=== PATIENT | male | born 1995 | race Caucasian/White ===

== ENCOUNTER 2022-08-05 15:21 | Inpatient (IN) | payer MEDICAID, SELFPAY ==
[2022-08-05 15:22] VITALS: BP 132/79; PULSE 100; RESP 16; TEMP 36.5; O2SAT 97; BMI 27.1
--- NOTE | 2022-08-05 15:51 | EX.ED.DYSGE1 ---
HPI <KATHERYN Mcdowell - Last Filed: 08/05/22 17:08> History of Present Illness Chief Complaint: Substance Abuse Narrative Narrative: 26-year-old male who is here for detox. He states he drinks alcohol, smokes crack cocaine, and uses meth. Denies IV drug use. He last used drugs yesterday and and last alcoholic drink was on the way into the ER. He drinks about ten 24 ounce beers a day and also multiple shots. He has detoxed several times in the past but denies history of seizures or DTs. PFSH <KATHERYN Mcdowell - Last Filed: 08/05/22 17:08> [facility] Medical History (Updated 08/05/22 @ 17:[address] Ashley Hirsch DO) No acute medical problems Polysubstance abuse Tobacco abuse Home Medications NK 08/05/22 [History Last Taken Unknown] Allergy/AdvReac Type Severity Reaction Status Date / Time No Known Allergies Allergy Verified 08/05/22 16:09 Social History Smoking Status: Current every day smoker tobacco type: cigarettes ROS <KATHERYN Mcdowell - Last Filed: 08/05/22 17:08> ROS ED ROS Narrative Constitutional: Negative for fever, chills, malaise. CVS: Negative for palpitations, chest pain. Respiratory: Negative for shortness of breath. GI: Negative for abdominal pain, nausea, vomiting. Neuro: Negative for headache. EXAM <KATHERYN Mcdowell - Last Filed: 08/05/22 17:08> Physical Exam Narrative Exam Narrative: CONST: Patient sitting in no acute distress. EYES: Normal inspection. NECK: Normal inspection. RESP: No respiratory distress, CTAB. CVS: Regular rate and rhythm, no murmur, no gallop. ABD: Soft and nontender, no guarding or rebound, nondistended. SKIN: Color normal, no rash, warm, dry, intact. EXTREMITIES: Normal appearance, no pedal edema. NEURO: Oriented x4. PSYCH: Normal affect. Const Vital Signs: 08/05/22 15:22 Temperature 97.7 F L Temperature Source Temporal Pulse Rate 100 Respiratory Rate 16 Blood Pressure 132/79 H Blood Pressure Mean 96 Pulse Ox 97 <Dr. Fior Ridley MD - Last Filed: 08/05/22 16:54> Physical Exam Const Vital Signs: 08/05/22 15:22 Temperature 97.7 F L Temperature Source Temporal Pulse Rate 100 Respiratory Rate 16 Blood Pressure 132/79 H Blood Pressure Mean 96 Pulse Ox 97 MDM <KATHERYN Mcdowell - Last Filed: 08/05/22 17:08> [facility] Narrative Medical decision making narrative: History gathered from: Patient and friend at bedside Patient here primarily for alcohol detox but also uses crack cocaine and meth. His last drink was on the way and he is currently asymptomatic. Vital signs stable. Medical exam benign. CBC, BMP, liver profile within normal limits. Alcohol level is 219. Tox positive for cocaine. Patient was given Phenergan for nausea and case was discussed with the hospitalist for admission. Differential: Polysubstance abuse, alcohol abuse, alcohol withdrawal Lab Data Attestation: I reviewed the patient's lab results. Labs: Laboratory Results - last 24 hr 08/05/22 08/05/22 08/05/22 15:56 15:56 15:56 WBC 7.1 RBC 4.56 L Hgb 14.6 Hct 41.3 MCV 90.6 MCH 32.0 MCHC 35.4 RDW Std Deviation 38.1 RDW Coeff of Jessica 11.6 Plt Count 249 MPV 9.1 Immature Gran % (Auto) 0.400 Neut % (Auto) 56.8 Lymph % (Auto) 33.2 [place] % (Auto) 8.3 Eos % (Auto) 0.3 Baso % (Auto) 1.0 Absolute Neuts (auto) 4.0 Absolute Lymphs (auto) 2.36 Nucleated RBC % 0 Sodium 143 Potassium 4.0 Chloride 109 H Carbon Dioxide 28.0 Anion Gap 6 BUN 8 Creatinine 0.80 Estim Creat Clear Calc 150.34 Est GFR (MDRD) Af Amer 151 Est GFR (MDRD) Non-Af 125 BUN/Creatinine Ratio 10.0 Glucose 116 H Calcium 8.2 L Total Bilirubin 0.70 Direct Bilirubin 0.19 AST 17 ALT 24 Alkaline Phosphatase 73 Total Protein 6.4 Albumin 3.5 Globulin 2.9 Urine Opiates Screen Urine Methadone Screen Ur Barbiturates Screen Ur Phencyclidine Scrn Ur Amphetamines Screen MDMA (Ecstasy) Screen U Benzodiazepines Scrn Urine Cocaine Screen U Cannabinoids Screen Ur Drug Screen Comment Ethyl Alcohol 219.0 08/05/22 16:05 WBC RBC Hgb Hct MCV MCH MCHC RDW Std Deviation RDW Coeff of Jessica Plt Count MPV Immature Gran % (Auto) Neut % (Auto) Lymph % (Auto) [place] % (Auto) Eos % (Auto) Baso % (Auto) Absolute Neuts (auto) Absolute Lymphs (auto) Nucleated RBC % Sodium Potassium Chloride Carbon Dioxide Anion Gap BUN Creatinine Estim Creat Clear Calc Est GFR (MDRD) Af Amer Est GFR (MDRD) Non-Af BUN/Creatinine Ratio Glucose Calcium Total Bilirubin Direct Bilirubin AST ALT Alkaline Phosphatase Total Protein Albumin Globulin Urine Opiates Screen NEGATIVE Urine Methadone Screen NEGATIVE Ur Barbiturates Screen NEGATIVE Ur Phencyclidine Scrn NEGATIVE Ur Amphetamines Screen NEGATIVE MDMA (Ecstasy) Screen NEGATIVE U Benzodiazepines Scrn NEGATIVE Urine Cocaine Screen POSITIVE H U Cannabinoids Screen NEGATIVE Ur Drug Screen Comment Ethyl Alcohol <Dr. Fior Ridley MD - Last Filed: 08/05/22 16:54> [facility] Lab Data Labs: Laboratory Results - last 24 hr 08/05/22 08/05/22 08/05/22 15:56 15:56 15:56 WBC 7.1 RBC 4.56 L Hgb 14.6 Hct 41.3 MCV 90.6 MCH 32.0 MCHC 35.4 RDW Std Deviation 38.1 RDW Coeff of Jessica 11.6 Plt Count 249 MPV 9.1 Immature Gran % (Auto) 0.400 Neut % (Auto) 56.8 Lymph % (Auto) 33.2 [place] % (Auto) 8.3 Eos % (Auto) 0.3 Baso % (Auto) 1.0 Absolute Neuts (auto) 4.0 Absolute Lymphs (auto) 2.36 Nucleated RBC % 0 Sodium 143 Potassium 4.0 Chloride 109 H Carbon Dioxide 28.0 Anion Gap 6 BUN 8 Creatinine 0.80 Estim Creat Clear Calc 150.34 Est GFR (MDRD) Af Amer 151 Est GFR (MDRD) Non-Af 125 BUN/Creatinine Ratio 10.0 Glucose 116 H Calcium 8.2 L Total Bilirubin 0.70 Direct Bilirubin 0.19 AST 17 ALT 24 Alkaline Phosphatase 73 Total Protein 6.4 Albumin 3.5 Globulin 2.9 Urine Opiates Screen Urine Methadone Screen Ur Barbiturates Screen Ur Phencyclidine Scrn Ur Amphetamines Screen MDMA (Ecstasy) Screen U Benzodiazepines Scrn Urine Cocaine Screen U Cannabinoids Screen Ur Drug Screen Comment Ethyl Alcohol 219.0 08/05/22 16:05 WBC RBC Hgb Hct MCV MCH MCHC RDW Std Deviation RDW Coeff of Jessica Plt Count MPV Immature Gran % (Auto) Neut % (Auto) Lymph % (Auto) [place] % (Auto) Eos % (Auto) Baso % (Auto) Absolute Neuts (auto) Absolute Lymphs (auto) Nucleated RBC % Sodium Potassium Chloride Carbon Dioxide Anion Gap BUN Creatinine Estim Creat Clear Calc Est GFR (MDRD) Af Amer Est GFR (MDRD) Non-Af BUN/Creatinine Ratio Glucose Calcium Total Bilirubin Direct Bilirubin AST ALT Alkaline Phosphatase Total Protein Albumin Globulin Urine Opiates Screen NEGATIVE Urine Methadone Screen NEGATIVE Ur Barbiturates Screen NEGATIVE Ur Phencyclidine Scrn NEGATIVE Ur Amphetamines Screen NEGATIVE MDMA (Ecstasy) Screen NEGATIVE U Benzodiazepines Scrn NEGATIVE Urine Cocaine Screen POSITIVE H U Cannabinoids Screen NEGATIVE Ur Drug Screen Comment Ethyl Alcohol Treatment and Re-Evaluation :: Patient seen and evaluated with [facility]. I personally interviewed and examined the patient. I was involved in all aspects of patient's orders, interpretation of results, and treatment. Patient presents requesting detox. He is primarily requesting detox from alcohol but does admit to other drug use as well. He states he has been through detox and withdrawal in the past. He denies ever having a prior alcohol withdrawal seizure, but also admits that he is never been this deep. He reportedly supposed to go to a residential treatment facility this coming week Patient lying in bed no acute distress. Head and neck examination is unremarkable. Heart is regular rate and rhythm. Lung sounds are clear. Abdomen is soft and nontender. Neuro exam is unremarkable. Patient states that his last drink was on the way into the emergency room. While awaiting laboratory work-up patient did report some nausea and was given p.o. Phenergan. He is not tachycardic or shaky. Patient we discussed with hospitalist for admission Discharge Plan Triage Chief Complaint: Substance Abuse ED Midlevel Provider: Vilma Cornelius ED Provider: Fior Ridley Dx/Rx/DC Orders Primary Care Provider: Care Physician,No Primary
[2022-08-05 16:04] LABS: Absolute Lymphocyte Count 2.36 X10^3/uL (0.83-4.51); Basophil# 0.07 X10^3/uL; Eosinophil# 0.02 X10^3/uL; Eosinophils% 0.3 % (0-5); Hematocrit 41.3 % (40-54); Hemoglobin 14.6 g/dL (13.0-16.5); Lymphocyte # 2.36 X10^3/ul (0.83-4.51); Lymphocyte % 33.2 % (19-41); Mean Corp Hgb Conc 35.4 g/dL (32-36); Mean Corpuscular Volume 90.6 fL (80-94); Mean Platelet Vol. 9.1 fl (6.2-12.0); Monocyte# 0.59 X10^3/uL; Monocyte% 8.3 % (0-10); NRBC Flagged by Analyzer 0 % (0-5); Neutrophil # 4.04 X10^3/uL (2.7-7.7); Neutrophil % 56.8 % (47-70); Platelet Count 249 K/mm3 (150-450); RBC Distribution Width CV 11.6 % (11.6-14.6); RBC Distribution Width SD 38.1 fl (35.1-43.9); Red Blood Count 4.56 M/mm3 (4.6-6.2); White Blood Count 7.1 K/mm3 (4.4-11.0)
[2022-08-05 16:32] LABS: AST(SGOT) 17 U/L (15-37); Alanine Aminotransfer ALT/SGPT 24 U/L (16-61); Albumin, Serum 3.5 g/dL (3.2-5.0); Alkaline Phosphatase 73 U/L (45-117); Anion Gap 6 (5-15); BUN 8 mg/dL (7-18); Bilirubin, Direct 0.19 mg/dL (0.00-0.30); Calcium,Total 8.2 mg/dL (8.5-10.1); Chloride 109 mmol/L (98-107); EST Glomerular Filtration Rate 125 mL/min (>60); Est Glom Filt Rate - Afr Amer 151 mL/min (>60); Estimated Creatinine Clearance 150.34 ml/min; Globulin 2.9 g/dL (2.2-4.2); Glucose 116 mg/dL (74-106); Protein, Total 6.4 g/dL (6.4-8.2); Sodium Level 143 mmol/L (136-145)
[2022-08-05 16:44] LABS: Amphetamine Urine VISTA NEGATIVE (<1000 ng/mL); Barbiturate Urine VISTA NEGATIVE (< 200 ng/mL); Benzodiazepine Urine VISTA NEGATIVE (< 200 ng/mL); Cocaine Urine VISTA POSITIVE (< 300 ng/mL); Ecstacy Urine VISTA NEGATIVE (< 500 ng/mL); Methadone Urine VISTA NEGATIVE (< 300 ng/mL); PCP Urine VISTA NEGATIVE (< 25 ng/mL); THC Urine VISTA NEGATIVE (< 50 ng/mL); Vista UDS pH Range 7
--- NOTE | 2022-08-05 17:01 | PCM.HP.STD ---
HPI - General General Date of Admission: 08/05/22 Date of Service: 08/05/22 Chief Complaint: Desire for detoxification from alcohol HPI Narrative VAL VILLA, is a 26 M who presented to the emergency department at [facility] on 08/05/2022 requesting detox from alcohol. The patient states he has been in inpatient rehab twice in the last year. The first time for 3 months and the last time for a few weeks. He just left rehab about a week ago. He started drinking as soon as he left rehab. He currently has been drinking about 10 24 ounce beers daily along with shots of hard liquor with his last drink being just prior to arrival. He denies any previous seizure or difficult withdrawal/detox with his previous admissions. He also admitted to recent crack cocaine use and methamphetamine use which she states is the first time he has used either of these. His amphetamine screen is negative however his cocaine is drug screen is positive. Alcohol level was 219. Vital signs were stable on presentation with mild tachycardia. Blood pressure is 132/79. His CBC and CMP were unremarkable. He denies ever utilizing IV drugs. He admits to smoking 1 pack or more of cigarettes daily. His plan at discharge is for readmission into inpatient rehab. [facility] Medical History No acute medical problems Polysubstance abuse Tobacco abuse Home Medications NK 08/05/22 [History Last Taken Unknown] Allergy/AdvReac Type Severity Reaction Status Date / Time No Known Allergies Allergy Verified 08/05/22 16:09 no significant family history no surgical history Social History (Updated 08/05/22 @ 17:[address] Ashley Hirsch DO) Smoking Status: Current every day smoker tobacco type: cigarettes Smoking packs per day: 1 Smoking cigarettes per day: 20.0 alcohol intake: current details: 10 24 ounce beers daily and hard liquor shots substance use type: crack/cocaine and amphetamines ROS Constitutional Constitutional: Reports fatigue; Denies anorexia, change in weight, chills, fever(s), malaise, night sweats, weakness or other Eyes Eyes: Denies blurry vision, change in eye color, change in vision, discharge from eye(s), double vision, erythema, eye pain, loss of vision or other ENT HEENT: Denies abnormal hearing, dysphagia, ear pain, epistaxis, headache(s), hearing loss, nasal congestion, nasal discharge, post nasal drip, sinus pressure, sore throat or other Cardiovascular Cardiovascular: Denies chest pain, claudication, dyspnea on exertion, edema, lightheadedness, orthopnea, palpitations, paroxysmal nocturnal dyspnea, rapid heart rate, syncope or other Respiratory/Chest Respiratory/Chest: Denies cough, dyspnea, excessive phlegm production, hemoptysis, productive cough, shortness of breath at rest, shortness of breath with exertion, wheezing or other Gastrointestinal Gastrointestinal: Reports nausea; Denies abdominal pain, coffee ground emesis, constipation, diarrhea, dyspepsia, hematemesis, hematochezia, loose stools, melena, vomiting or other Genitourinary Genitourinary: Denies burning urination, difficulty urinating, dysuria, hematuria, nocturia, urinary frequency, urinary hesitancy, urinary incontinence, urinary urgency or other Musculoskeletal Musculoskeletal: Reports myalgias; Denies arthralgias, back pain, joint pain, joint stiffness, joint swelling, neck pain or other Neurologic Neurologic: Denies abnormal gait, abnormal speech, confusion, disequilibrium, dizziness, focal weakness, headache(s), numbness, paresthesias, seizure-like activity, seizures, syncope, tingling, tremor(s) or other Psychiatric Psychiatric: Denies anxiety, depression, homicidal ideation, suicidal ideation or other Endocrine Endocrinology: Denies change in body appearance, cold intolerance, excessive sweating, heat intolerance, polydipsia, polyuria or other Hematologic/Lymphatic Hematologic/Lymphatic: Denies anemia, easy bleeding, easy bruising, lymphadenopathy or other Allergic/Immunologic Allergic/Immunologic: Denies rhinitis, hives, eczemia, asthma or other Vital Signs Vital Signs Vital Signs: 08/05/22 15:22 Temperature 97.7 F L Temperature Source Temporal Pulse Rate 100 Respiratory Rate 16 Blood Pressure 132/79 H Blood Pressure Mean 96 Pulse Ox 97 Weight Weight: 88.088 kg Body Mass Index (BMI) 27.1 Physical Exam Const alert, oriented x3, no apparent distress, average body habitus, healthy appearing and well nourished Constitutional Narrative: Young white male, sitting up in bed, significant other at bedside, appears comfortable and nontoxic, nursing in bed General Appearance: cooperative HEENT normocephalic, head/scalp atraumatic, hearing grossly normal bilaterally and moist oral mucous membranes HEENT Narrative: Dentition is good, Mallampati is 2-3, no thrush Resp normal respiratory effort, no retractions, no use of accessory muscles and clear to auscultation bilaterally Auscultation: Negative for rales, rhonchi or wheezes Cardio regular rate, regular rhythm, S1 normal heart sound, S2 normal heart sound, no murmurs, no rub, no gallops and no clicks GI normal to inspection, nondistended, normoactive bowel sounds and soft to palpation; Negative for non-tender GI Narrative: Very mild diffuse tenderness with no focal tenderness Extremity no clubbing, cyanosis or edema Extremity Narrative: Pedal pulses are 2+ Neuro oriented x3, moves all extremities and no focal motor deficits Speech: speech normal Psych affect normal Psych Narrative: Pleasant, interacts appropriately Results Lab / Micro Data Result Diagrams: 08/05/22 15:56 08/05/22 15:56 Labs: Laboratory Results - last 24 hr 08/05/22 15:56: WBC 7.1, RBC 4.56 L, Hgb 14.6, Hct 41.3, MCV 90.6, MCH 32.0, MCHC 35.4, RDW Std Deviation 38.1, RDW Coeff of Jessica 11.6, Plt Count 249, MPV 9.1, Immature Gran % (Auto) 0.400, Neut % (Auto) 56.8, Lymph % (Auto) 33.2, [place] % (Auto) 8.3, Eos % (Auto) 0.3, Baso % (Auto) 1.0, Absolute Neuts (auto) 4.0, Absolute Lymphs (auto) 2.36, Nucleated RBC % 0 08/05/22 15:56: Sodium 143, Potassium 4.0, Chloride 109 H, Carbon Dioxide 28.0, Anion Gap 6, BUN 8, Creatinine 0.80, Estim Creat Clear Calc 150.34, Est GFR (MDRD) Af Amer 151, Est GFR (MDRD) Non-Af 125, BUN/Creatinine Ratio 10.0, Glucose 116 H, Calcium 8.2 L, Total Bilirubin 0.70, Direct Bilirubin 0.19, AST 17, ALT 24, Alkaline Phosphatase 73, Total Protein 6.4, Albumin 3.5, Globulin 2.9 08/05/22 15:56: Ethyl Alcohol 219.0 08/05/22 16:05: Urine Opiates Screen NEGATIVE, Urine Methadone Screen NEGATIVE, Ur Barbiturates Screen NEGATIVE, Ur Phencyclidine Scrn NEGATIVE, Ur Amphetamines Screen NEGATIVE, MDMA (Ecstasy) Screen NEGATIVE, U Benzodiazepines Scrn NEGATIVE, Urine Cocaine Screen POSITIVE H, U Cannabinoids Screen NEGATIVE, Ur Drug Screen Comment Assessment & Plan Assessment/Plan (1) Alcohol abuse: (2) Desire for detoxification: PLAN: Plan Alcohol abuse with pending alcohol withdrawal -Patient comes in requesting detox from alcohol -Alcohol level on admission is 219 with last drink being just prior to presentation -Start phenobarbital taper -CIWA with as needed Ativan -Thiamine and folate -Supportive medication for symptom control -180 consultation Polysubstance abuse -Patient admits to utilizing cocaine and methamphetamines as well -Recommend cessation -180 consultation Tobacco abuse -Recommend cessation -Nicotine patch DVT prophylaxis -Low risk -Recommend early and frequent ambulation CODE STATUS -Full code Charges/Coding Visit Charges Inpatient E&M: 69387 Init Hosp L2
[2022-08-05] MEDS: proMETHazine 25 MG Tablet PO (17:10)
[2022-08-05 17:11] VITALS: BP 124/68; PULSE 81; RESP 17; TEMP 36.5; O2SAT 97
[2022-08-05 17:22] VITALS: RESP 18
[2022-08-05 18:27] VITALS: BMI 24.4
[2022-08-05 18:47] VITALS: BP 107/66; PULSE 60; RESP 14; TEMP 36.6; O2SAT 97
[2022-08-05] MEDS: Loperamide 2 MG Capsule PO (19:03)
[2022-08-05] MEDS: Phenobarbital 32.4 MG Tablet 64.8 MG PO (19:03)
[2022-08-05] MEDS: LORazepam 1 MG Tablet 2 MG PO (19:03)
[2022-08-06] MEDS: Phenobarbital 32.4 MG Tablet 64.8 MG PO ×6 (00:38→20:16)
[2022-08-06] MEDS: hydrOXYzine PAM 25 MG Capsule 50 MG PO ×5 (00:38→20:17)
[2022-08-06 05:02] VITALS: BP 100/72; PULSE 69; RESP 16; TEMP 36.9; O2SAT 97
[2022-08-06 07:43] VITALS: BP 124/76; PULSE 72; RESP 16; TEMP 36.4; O2SAT 97
[2022-08-06] MEDS: Folic Acid 1 MG Tablet PO (07:49)
[2022-08-06] MEDS: Thiamine Hydrochloride 100 MG Tablet PO (07:49)
--- NOTE | 2022-08-06 08:23 | PN.HOSP_ITS ---
Reason for Visit Reason for Visit: Diagnoses Alcohol abuse, uncomplicated (08/05/22) Subjective Subjective Feels ok. No events overnight. Objective Data Objective Data Vital Signs: Vital Signs Temp Pulse Resp BP Pulse Ox O2 Del Method 36.4 C L 72 16 124/76 H 97 Room Air 08/06/22 07:43 08/06/22 07:43 08/06/22 07:43 08/06/22 07:43 08/06/22 07:43 08/06/22 07:43 Oxygen Delivery Method Room Air Weight: 79.492 kg Body Mass Index (BMI) 24.4 Lab / Micro Data Result Diagrams: 08/05/22 15:56 08/05/22 15:56 Labs: Laboratory Results - last 24 hr 08/05/22 15:56: WBC 7.1, RBC 4.56 L, Hgb 14.6, Hct 41.3, MCV 90.6, MCH 32.0, MCHC 35.4, RDW Std Deviation 38.1, RDW Coeff of Jessica 11.6, Plt Count 249, MPV 9.1, Immature Gran % (Auto) 0.400, Neut % (Auto) 56.8, Lymph % (Auto) 33.2, [place] % (Auto) 8.3, Eos % (Auto) 0.3, Baso % (Auto) 1.0, Absolute Neuts (auto) 4.0, Absolute Lymphs (auto) 2.36, Nucleated RBC % 0 08/05/22 15:56: Sodium 143, Potassium 4.0, Chloride 109 H, Carbon Dioxide 28.0, Anion Gap 6, BUN 8, Creatinine 0.80, Estim Creat Clear Calc 150.34, Est GFR (MDRD) Af Amer 151, Est GFR (MDRD) Non-Af 125, BUN/Creatinine Ratio 10.0, Glucose 116 H, Calcium 8.2 L, Total Bilirubin 0.70, Direct Bilirubin 0.19, AST 17, ALT 24, Alkaline Phosphatase 73, Total Protein 6.4, Albumin 3.5, Globulin 2.9 08/05/22 15:56: Ethyl Alcohol 219.0 08/05/22 16:05: Urine Opiates Screen NEGATIVE, Urine Methadone Screen NEGATIVE, Ur Barbiturates Screen NEGATIVE, Ur Phencyclidine Scrn NEGATIVE, Ur Amphetamines Screen NEGATIVE, MDMA (Ecstasy) Screen NEGATIVE, U Benzodiazepines Scrn N EGATIVE, Urine Cocaine Screen POSITIVE H, U Cannabinoids Screen NEGATIVE, Ur Drug Screen Comment Physical Exam Const alert and no apparent distress Constitutional Narrative: lying in bed. non-toxic. Psych Psych Narrative: flat affect. Assessment & Plan Assessment/Plan (1) Alcohol abuse: PLAN: Patient comes in requesting detox from alcohol Alcohol level on admission is 219 with last drink being just prior to presentat ion Start phenobarbital taper CIWA with as needed Ativan Thiamine and folate Supportive medication for symptom control 180 consultation. Patient to follow up with [facility] for inpatient treatment on 08/08 PLAN: Plan Chronic complicating conditions: * Polysubstance abuse-Patient admits to utilizing cocaine and methamphetamines as well-Recommend cessation-180 consultation * Tobacco abuse-Recommend cessation-Nicotine patch DVT prophylaxis -Low risk -Recommend early and frequent ambulation CODE STATUS -Full code Charges/Coding Visit Charges Inpatient E&M: 57100 Subs Hosp L1
[2022-08-06 12:13] VITALS: BP 105/58; PULSE 71; RESP 16; TEMP 36.6; O2SAT 98
--- NOTE | 2022-08-06 12:21 | ADDICTION ---
This specifications writer met with PT to conduct ASAM, MSE, AUDIT, DUDIT assessments and to plan for d/c. PT A+Ox4 and participated actively. All assessments completed and placed in PT's chart. PT plans to f/u with [facility] at [facility] for follow-up in patient treatment services on Saturday. [facility] will transport to treatment.
[2022-08-06 16:25] VITALS: BP 118/64; PULSE 59; RESP 18; TEMP 37; O2SAT 98
[2022-08-06 20:00] VITALS: BP 113/63; PULSE 61; RESP 16; TEMP 36.5; O2SAT 100
[2022-08-07] MEDS: Phenobarbital 32.4 MG Tablet 64.8 MG PO ×3 (01:04→08:42)
[2022-08-07] MEDS: hydrOXYzine PAM 25 MG Capsule 50 MG PO ×2 (01:04→08:42)
[2022-08-07 04:31] VITALS: BP 113/69; PULSE 50; RESP 16; TEMP 36.6; O2SAT 98
--- NOTE | 2022-08-07 08:01 | PN.HOSP_ITS ---
Reason for Visit Reason for Visit: Diagnoses Alcohol abuse, uncomplicated (08/05/22) Subjective Subjective Feels well. No events overnight. States he a court appearance around 1030. Objective Data Objective Data Vital Signs: Vital Signs Temp Pulse Resp BP Pulse Ox O2 Del Method 36.6 C 50 L 16 113/69 98 Room Air 08/07/22 04:31 08/07/22 04:31 08/07/22 04:31 08/07/22 04:31 08/07/22 04:31 08/07/22 04:31 Oxygen Delivery Method Room Air Weight: 79.492 kg Body Mass Index (BMI) 24.4 Lab / Micro Data Result Diagrams: 08/05/22 15:56 08/05/22 15:56 Physical Exam Const alert and no apparent distress Constitutional Narrative: lying in bed. non-toxic. Assessment & Plan Assessment/Plan (1) Alcohol abuse: PLAN: Patient comes in requesting detox from alcohol Alcohol level on admission is 219 with last drink being just prior to presentation Start phenobarbital taper CIWA with as needed Ativan Thiamine and folate Supportive medication for symptom control 180 consultation. Patient to follow up with [facility] at [facility] for inpatient treatment on 08/[address] in the AM on 08/08, I will discharge him today. PLAN: Plan Chronic complicating conditions: * Polysubstance abuse-Patient admits to utilizing cocaine and methamphetamines as well-Recommend cessation-180 consultation * Tobacco abuse-Recommend cessation-Nicotine patch DVT prophylaxis -Low risk -Recommend early and frequent ambulation CODE STATUS -Full code
[2022-08-07 08:32] VITALS: BP 125/63; PULSE 81; RESP 18; TEMP 36.6; O2SAT 99
[2022-08-07] MEDS: Thiamine Hydrochloride 100 MG Tablet PO (08:41)
[2022-08-07] MEDS: Loperamide 2 MG Capsule PO (08:41)
[2022-08-07] MEDS: Folic Acid 1 MG Tablet PO (08:41)
--- NOTE | 2022-08-07 09:18 | DCINST_ITS ---
Discharge Instructions Diet Discharge Diet: No restrictions Follow Up Care Test Results: Test results from this visit will be discussed in further detail at your follow- up appointment, if applicable. Discharge Plan Admission Admit Date/Time: 08/05/22 16:53 Primary Reason for Your Visit: alcohol withdrawal Attending Provider: Carmelo Albert Primary Care Provider: Care Physician,No Primary Consulting Providers: Ashley Hirsch Discharge Orders/Prescriptions Prescriptions: No Action NK Referrals / Follow Up: Care Physician,No Primary [Primary Care Provider] - NOT,DEFINED [Non-Staff] - Disposition Disposition (needs filled in before D/C Order can be placed): Home, Self Care
--- NOTE | 2022-08-07 09:19 | DS.PCM_ITS ---
Providers Date of Admission: 08/05/22 Primary Care Physician: Shelby Primary Care Phys Reason For Visit: ETOH DETOX Diagnosis Discharge Diagnosis (1) Alcohol abuse: Status: Acute Code(s): F10.10 - Alcohol abuse, uncomplicated Plan: Patient comes in requesting detox from alcohol Alcohol level on admission is 219 with last drink being just prior to presentation Start phenobarbital taper CIWA with as needed Ativan Thiamine and folate Supportive medication for symptom control 180 consultation. Patient to follow up with [facility] at [facility] for inpatient treatment on 08/[address] date in the AM on 08/08, I will discharge him today. Plan Chronic complicating conditions: * Polysubstance abuse-Patient admits to utilizing cocaine and methamphetamines as well-Recommend cessation-180 consultation * Tobacco abuse-Recommend cessation-Nicotine patch DVT prophylaxis -Low risk -Recommend early and frequent ambulation CODE STATUS -Full code Medications at Discharge Home Medications NK 08/05/22 Weight / BMI Weight Weight: 79.492 kg Body Mass Index (BMI) 24.4 ABG / Lab / Microbiology Data Result Diagrams: 08/05/22 15:56 08/05/22 15:56 D/C Instructions Discharge Diet: No restrictions Meaningful Use Info Meaningful Use Diagnoses (Choose all that apply): None applicable Discharge Plan Admission Admit Date/Time: 08/05/22 16:53 Primary Reason for Your Visit: alcohol withdrawal Attending Provider: Carmelo Albert Primary Care Provider: Care Physician,No Primary Consulting Providers: Ashley Hirshc Discharge Orders/Prescriptions Prescriptions: No Action NK Referrals / Follow Up: Care Physician,No Primary [Primary Care Provider] - NOT,DEFINED [Non-Staff] - Disposition Disposition (needs filled in before D/C Order can be placed): Home, Self Care Charges/Coding Visit Charges Inpatient E&M: 34619 Disch Hosp
== END 2022-08-07 11:58 | disposition home or self-care (01) | DRG 774 ==
LOC: ED 15:57 → MS3 17:06
PROVIDERS: Physician Assistant; Admitting Provider Internal Medicine; Emergency Provider Emergency Medicine
DX: F10.139 Alcohol abuse with withdrawal, unspecified (principal); F14.10 Cocaine abuse, uncomplicated; F17.210 Nicotine dependence, cigarettes, uncomplicated; F15.90 Other stimulant use, unspecified, uncomplicated; Y90.7 Blood alcohol level of 200-239 mg/100 ml
CPT/HCPCS: 80048; 80076; 80307; 82077; 85025; 99284; A4216

== ENCOUNTER 2023-03-22 22:02 | Observation (INO) | payer MEDICAID, SELFPAY ==
[2023-03-22 22:04] VITALS: BP 135/86; PULSE 108; RESP 18; TEMP 36.4; O2SAT 96; BMI 27.6
--- NOTE | 2023-03-22 22:15 | EX.ED.SAOD ---
HPI History of Present Illness Chief Complaint: Substance Abuse Narrative Narrative: 27-year-old male past medical history of previous detox, presents for detox from alcohol. He states he used to drink a lot more beer, but has been clean and sober for 7 months, but then fell off the wagon . He now drinks at least 6 tall boys daily. He is a smoker but denies other drug use. He last went through detox/rehab approximately a year ago. He states that although his last drink was probably 2 hours ago, he is starting to feel the shakes. He states that he completed detox last year, then went through [facility]. [facility] Medical History Alcohol abuse Anxiety Asthma Depression Migraines No acute medical problems Polysubstance abuse Smoker Substance abuse Tobacco abuse Home Medications NK 08/05/22 [History Last Taken Unknown] Allergy/AdvReac Type Severity Reaction Status Date / Time No Known Allergies Allergy Verified 03/22/23 22:05 Social History Smoking Status: Current every day smoker tobacco type: cigarettes alcohol intake: current details: 10 24 ounce beers daily and hard liquor shots substance use type: crack/cocaine and amphetamines ROS ROS ED ROS Narrative Constitutional: No fever, no chills. HEENT: No sore throat. No neck pain. No loss of vision. No rhinorrhea. Cardiovascular: No chest pain. No palpitations. No pedal edema. Respiratory: No cough, no shortness of breath. Abdominal: No abdominal pain. No nausea. No vomiting. Genitourinary: No dysuria. No hematuria. Musculoskeletal: No myalgias. No arthralgias. Neurologic: No headaches. No dizziness. No lightheadedness. Positive shakiness. Skin: No rash. No change in color. Psychiatric: No depression. No anxiety. EXAM Physical Exam Narrative Exam Narrative: Afebrile. Vital signs noted. HEENT: Normocephalic. Atraumatic. PERRL, EOMI. Neck soft and supple. No point tenderness or step off. Cardiovascular: Regular rate and rhythm with intermittent tachycardia. No murmurs, rubs, or gallops appreciated. Respiratory: No tachypnea. Lungs clear to auscultation bilaterally. Gastrointestinal: Abdomen soft, nontender, with normoactive bowel sounds. No rebound or guarding. Neurological: Awake. Alert. Nonfocal, nonlateralizing. Skin: No rash. Normal color. No pallor. Musculoskeletal: No pedal edema. Full range of motion extremities. Const Vital Signs: 03/22/23 22:04 Temperature 97.5 F L Temperature Source Temporal Pulse Rate 108 H Respiratory Rate 18 Blood Pressure 135/86 H Blood Pressure Mean 102 Pulse Ox 96 Oxygen Delivery Method Room Air MDM MDM MDM Narrative Medical decision making narrative: Medical screening labs will be obtained as well as EKG. He is mildly tachycardic, but able to ambulate without difficulty. I reviewed his prior records. He was seen here for detox and July of last year. He did not sign out AGAINST MEDICAL ADVICE. He had been started on a phenobarbital plan. In review of his laboratory work from today he has a normal white count 9.1, hemoglobin slightly hemoconcentrated at 16.8 with hematocrit 46.8, platelet count normal at 367. Chloride is slightly elevated at 108 which I think is nonspecific, glucose appropriately elevated at 117 with a normal anion gap of 7. Alcohol level is elevated at 212. Urine for drugs of abuse is negative. I do not feel that he requires any medication currently for active withdrawal as he has an elevated alcohol level. Patient was discussed with Dr. Thomas for admission to [facility] for detox from alcohol. Patient is in stable condition. Lab Data Attestation: I reviewed the patient's lab results. Labs: Laboratory Results - last 24 hr 03/22/23 03/22/23 22:35 22:50 WBC 9.1 RBC 5.28 Hgb 16.8 H Hct 46.8 MCV 88.6 MCH 31.8 MCHC 35.9 RDW Std Deviation 40.2 RDW Coeff of Jessica 12.4 Plt Count 367 MPV 9.2 Immature Gran % (Auto) 0.300 Neut % (Auto) 58.3 Lymph % (Auto) 34.2 [place] % (Auto) 6.3 Eos % (Auto) 0.1 Baso % (Auto) 0.8 Absolute Neuts (auto) 5.3 Absolute Lymphs (auto) 3.11 Nucleated RBC % 0 Sodium 140 Potassium 4.0 Chloride 108 H Carbon Dioxide 25.0 Anion Gap 7 BUN 7 Creatinine 0.86 Estim Creat Clear Calc 138.63 Est GFR (MDRD) Af Amer 137 Est GFR (MDRD) Non-Af 113 BUN/Creatinine Ratio 8.1 L Glucose 117 H Calcium 9.1 Total Bilirubin 0.70 AST 18 ALT 27 Alkaline Phosphatase 105 Total Protein 8.1 Albumin 4.4 Globulin 3.7 Albumin/Globulin Ratio 1.2 Urine Opiates Screen NEGATIVE Urine Methadone Screen NEGATIVE Ur Barbiturates Screen NEGATIVE Ur Phencyclidine Scrn NEGATIVE Ur Amphetamines Screen NEGATIVE MDMA (Ecstasy) Screen NEGATIVE U Benzodiazepines Scrn NEGATIVE Urine Cocaine Screen NEGATIVE U Cannabinoids Screen NEGATIVE Ur Drug Screen Comment Ethyl Alcohol 212.0 Management Discussion w/another healthcare provider: Hospitalist Discharge Plan Dx/Rx/DC Orders Clinical Impression: Desire for detoxification, Acute alcohol intoxication Disposition Disposition: Acute Care Hospital [facility]
[2023-03-22 22:55] LABS: Absolute Lymphocyte Count 3.11 X10^3/uL (0.83-4.51); Absolute Neutrophil Count 5.3 X10^3/uL (2.0-7.7); Basophil# 0.07 X10^3/uL; Basophil% 0.8 % (0-1); Eosinophil# 0.01 X10^3/uL; Eosinophils% 0.1 % (0-5); Hematocrit 46.8 % (40-54); Hemoglobin 16.8 g/dL (13.0-16.5); Lymphocyte # 3.11 X10^3/ul (0.83-4.51); Lymphocyte % 34.2 % (19-41); Mean Corp Hgb Conc 35.9 g/dL (32-36); Mean Corpuscular Hgb 31.8 pg (27.0-32.0); Mean Corpuscular Volume 88.6 fL (80-94); Mean Platelet Vol. 9.2 fl (6.2-12.0); Monocyte# 0.57 X10^3/uL; Monocyte% 6.3 % (0-10); NRBC Flagged by Analyzer 0 % (0-5); Neutrophil % 58.3 % (47-70); Platelet Count 367 K/mm3 (150-450); RBC Distribution Width CV 12.4 % (11.6-14.6); RBC Distribution Width SD 40.2 fl (35.1-43.9); Red Blood Count 5.28 M/mm3 (4.6-6.2); White Blood Count 9.1 K/mm3 (4.4-11.0)
[2023-03-22 23:06] LABS: Amphetamine Urine VISTA NEGATIVE (<1000 ng/mL); Barbiturate Urine VISTA NEGATIVE (< 200 ng/mL); Benzodiazepine Urine VISTA NEGATIVE (< 200 ng/mL); Cocaine Urine VISTA NEGATIVE (< 300 ng/mL); Ecstacy Urine VISTA NEGATIVE (< 500 ng/mL); Methadone Urine VISTA NEGATIVE (< 300 ng/mL); PCP Urine VISTA NEGATIVE (< 25 ng/mL); THC Urine VISTA NEGATIVE (< 50 ng/mL)
[2023-03-22 23:14] LABS: ALB/GLOB Ratio 1.2 RATIO (0.9-2.4); AST(SGOT) 18 U/L (15-37); Alanine Aminotransfer ALT/SGPT 27 U/L (16-61); Albumin, Serum 4.4 g/dL (3.2-5.0); Alkaline Phosphatase 105 U/L (45-117); Anion Gap 7 (5-15); BUN 7 mg/dL (7-18); BUN/Creat Ratio 8.1 RATIO (10-20); Calcium,Total 9.1 mg/dL (8.5-10.1); Chloride 108 mmol/L (98-107); Creatinine, Serum 0.86 mg/dL (0.70-1.30); EST Glomerular Filtration Rate 113 mL/min (>60); Est Glom Filt Rate - Afr Amer 137 mL/min (>60); Estimated Creatinine Clearance 138.63 ml/min; Globulin 3.7 g/dL (2.2-4.2); Glucose 117 mg/dL (74-106); Protein, Total 8.1 g/dL (6.4-8.2); Sodium Level 140 mmol/L (136-145)
[2023-03-22 23:27] LABS: Vista UDS pH Range 6
--- NOTE | 2023-03-23 00:17 | HP.PCM.HOS_ITS ---
[facility] - General General Date of Admission: 03/23/23 Date of Service: 03/23/23 Chief Complaint: Alcohol withdrawal symptoms. Feeling restless, drowsy and lethargic HPI Narrative VAL VILLA, is a 27 M with history of chronic alcohol use mainly beer came to ED for help as he is feeling restless lethargic and drowsy. Patient states he drinks about 24, 12 ounces Of Beer per Day Budweiser or Similar. He was drinking hard liquor vodka or others about 2 years ago but he stopped that. Smokes cigarettes 1 pack/day. Denies prior history of seizure or DT. He was last admitted in July 2022 for alcohol withdrawal symptoms. No fever or chills. Denies any serious complications of chronic alcohol drinking including hematemesis melena or alcoholic liver disease [facility] Medical History Alcohol abuse Anxiety Asthma Depression Migraines No acute medical problems Polysubstance abuse Smoker Substance abuse Tobacco abuse Home Medications NK 08/05/22 [History Last Taken Unknown] Allergy/AdvReac Type Severity Reaction Status Date / Time No Known Allergies Allergy Verified 03/22/23 22:05 Social History Smoking Status: Current every day smoker tobacco type: cigarettes alcohol intake: current details: 10 24 ounce beers daily and hard liquor shots substance use type: crack/cocaine and amphetamines ROS ROS Narrative Constitutional: Mild drowsy feeling slow and lethargic. No fever. HEENT: Reports systems reviewed and no addt'l complaints, except as documented Respiratory/Chest: No acute shortness of breath or respiratory distress or wheezing. CVS: No chest pain or pressure or tightness Gastrointestinal: Denies coffee ground emesis, hematemesis or vomiting Genitourinary: Denies burning urination or new urinary tract symptoms Musculoskeletal: Denies acute joint pain or limited range of motion. No acute injury Neurologic: Denies seizure-like symptoms. Psychiatric: Chronic alcohol use habit/disorder skin: No ulcer. No rash Endocrinology: Reports systems reviewed and no addt'l complaints, except as documented Hematologic/Lymphatic: Reports systems reviewed and no addt'l complaints, except as documented Rest 14 ROS are negative except as mentioned in HPI Vital Signs Vital Signs Vital Signs: 03/22/23 22:04 Temperature 97.5 F L Temperature Source Temporal Pulse Rate 108 H Respiratory Rate 18 Blood Pressure 135/86 H Blood Pressure Mean 102 Pulse Ox 96 Oxygen Delivery Method Room Air Weight Weight: 198 lb Body Mass Index (BMI) 27.6 Physical Exam Narrative General: Awake but mildly lethargic. Oriented x3, Cooperative HEENT: Atraumatic, PERRLA, EOMI, Normocephalic Oral: No Gingival or Mucosal Lesions/ Ulcerations Neck: Supple, No JVD, Negative Carotid Bruits Chest wall/Lungs: Air entry diminished in bilateral lung bases. No crepitation/rhonchi Cardiovascular: Regular rate, Regular Rhythm, Normal S1, Normal S2, No M/G/R Abdomen: Bowel Sounds Present, Soft, Non Tender, Non-Distended. No palpable mass. : No dysuria. No renal angle tenderness. No suprapubic tenderness. Extremities: No edema, Capillary Refill Less than 3 Seconds Skin: No rashes, No breakdown Musculoskeletal: No Tenderness to Palpation of Joints or Extremities Neurological: Cranial nerves II-XII grossly intact, DTR 2+/4. No acute focal neurological deficit. Psych/Mental Status: Flat affect. Restless and mild anxious. Results Lab / Micro Data 03/22/23 22:50 03/22/23 22:50 Labs: Laboratory Results - last 24 hr 03/22/23 22:35: Urine Opiates Screen NEGATIVE, Urine Methadone Screen NEGATIVE, Ur Barbiturates Screen NEGATIVE, Ur Phencyclidine Scrn NEGATIVE, Ur Amphetamines Screen NEGATIVE, MDMA (Ecstasy) Screen NEGATIVE, U Benzodiazepines Scrn NEGATIVE, Urine Cocaine Screen NEGATIVE, U Cannabinoids Screen NEGATIVE, Ur Drug Screen Comment 03/22/23 22:50: WBC 9.1, RBC 5.28, Hgb 16.8 H, Hct 46.8, MCV 88.6, MCH 31.8, MCHC 35.9, RDW Std Deviation 40.2, RDW Coeff of Jessica 12.4, Plt Count 367, MPV 9.2, Immature Gran % (Auto) 0.300, Neut % (Auto) 58.3, Lymph % (Auto) 34.2, [place] % (Auto) 6.3, Eos % (Auto) 0.1, Baso % (Auto) 0.8, Absolute Neuts (auto) 5.3, Absolute Lymphs (auto) 3.11, Nucleated RBC % 0, Sodium 140, Potassium 4.0, Chloride 108 H, Carbon Dioxide 25.0, Anion Gap 7, BUN 7, Creatinine 0.86, Estim Creat Clear Calc 138.63, Est GFR (MDRD) Af Amer 137, Est GFR (MDRD) Non-Af 113, BUN/Creatinine Ratio 8.1 L, Glucose 117 H, Calcium 9.1, Total Bilirubin 0.70, AST 18, ALT 27, Alkaline Phosphatase 105, Total Protein 8.1, Albumin 4.4, Globu jonathon 3.7, Albumin/Globulin Ratio 1.2, Ethyl Alcohol 212.0 Assessment & Plan Assessment/Plan (1) Acute hyperactive alcohol withdrawal delirium: PLAN: Plan This is a 27-year-old gentleman being admitted for acute alcohol withdrawal symptoms. 1. Acute alcohol withdrawal syndrome with history of chronic alcohol use disorder, with dependence and tolerance: Patient is being admitted on MedSurg floor. [facility] Patient on phenobarbital based order set along with other adjunctive medications gabapentin, Bentyl, Vistaril, clonidine, Klonopin as needed for alcohol withdrawal symptom control. Patient is on thiamine and folate acid. Twelve-lead EKG shows sinus tachycardia at 108 bpm. Liver chemistry normal limit. GGT pending. Serum alcohol was high at 212. [place] monitor. salon/spa manager consulted.. 2. Chronic nicotine use/cigarette smoking: Patient smokes since pack per day since age of 14. Nicotine patch ordered. 3. DVT prophylaxis: Low risk. No prophylaxis indicated. Early ambulation encouraged Full code verified. Patient does not have living will or advanced directive. Laboratory Results 03/22/23 22:35: Urine Opiates Screen NEGATIVE, Urine Methadone Screen NEGATIVE, Ur Barbiturates Screen NEGATIVE, Ur Phencyclidine Scrn NEGATIVE, Ur Amphetamines Screen NEGATIVE, MDMA (Ecstasy) Screen NEGATIVE, U Benzodiazepines Scrn NEGATIVE, Urine Cocaine Screen NEGATIVE, U Cannabinoids Screen NEGATIVE, Ur Drug Screen Comment 03/22/23 22:50: WBC 9.1, RBC 5.28, Hgb 16.8 H, Hct 46.8, MCV 88.6, MCH 31.8, MCHC 35.9, RDW Std Deviation 40.2, RDW Coeff of Jessica 12.4, Plt Count 367, MPV 9.2, Immature Gran % (Auto) 0.300, Neut % (Auto) 58.3, Lymph % (Auto) 34.2, [place] % (Auto) 6.3, Eos % (Auto) 0.1, Baso % (Auto) 0.8, Absolute Neuts (auto) 5.3, Absolute Lymphs (auto) 3.11, Nucleated RBC % 0, Sodium 140, Potassium 4.0, Chloride 108 H, Carbon Dioxide 25.0, Anion Gap 7, BUN 7, Creatinine 0.86, Estim Creat Clear Calc 138.63, Est GFR (MDRD) Af Amer 137, Est GFR (MDRD) Non-Af 113, BUN/Creatinine Ratio 8.1 L, Glucose 117 H, Calcium 9.1, Total Bilirubin 0.70, GGT Pending, AST 18, ALT 27, Alkaline Phosphatase 105, Total Protein 8.1, Albumin 4.4, Globulin 3.7, Albumin/Globulin Ratio 1.2, Ethyl Alcohol 212.0 Charges/Coding Visit Charges Inpatient E&M: 07908 Init Hosp L3
[2023-03-23 00:59] LABS: GGTP 34 U/L (15-85)
[2023-03-23 01:01] VITALS: BMI 27.6
[2023-03-23 01:09] VITALS: BP 134/81; PULSE 91; RESP 18; TEMP 36.7; O2SAT 98
[2023-03-23] MEDS: Lactated Ringers 1,000 ML 125 ML IV (01:21)
[2023-03-23] MEDS: Pantoprazole Sodium 40 MG Tablet PO ×2 (01:32→08:43)
[2023-03-23] MEDS: Phenobarbital 32.4 MG Tablet 97.2000000000000028 MG PO ×3 (01:32→08:43)
[2023-03-23] MEDS: 0.9% Saline Lock 10 ML Syringe IV (01:34)
[2023-03-23 01:57] LABS: International Normalized Ratio 0.9; Prothrombin Time (Protime)PT. 12.2 SECONDS (11.7-14.9)
[2023-03-23 05:34] VITALS: BP 113/58; PULSE 86; RESP 17; TEMP 36.8; O2SAT 98
--- NOTE | 2023-03-23 07:06 | PN.HOSP_ITS ---
Reason for Visit Reason for Visit: Diagnoses Alcohol use, unspecified with withdrawal delirium (03/23/23) Subjective Subjective Patient notes feeling improved with no current withdrawal symptoms. He notes that he only came in because he wanted to make sure that he was treated given his circumstance and states that his child is going to be present today and he needs to be there. Discussed at length and encourage patient to remain but he decided to leave AGAINST MEDICAL ADVICE. Patient denies fevers, chills, nausea, emesis, abdominal pain, chest pain or dyspnea. Objective Data Objective Data Vital Signs: Vital Signs Temp Pulse Resp BP Pulse Ox O2 Del Method 98.3 F 86 17 113/58 L 98 Room Air 03/23/23 05:34 03/23/23 05:34 03/23/23 05:34 03/23/23 05:34 03/23/23 05:34 03/23/23 05:34 Oxygen Delivery Method Room Air Weight: 198 lb Body Mass Index (BMI) 27.6 Intake & Output: Intake and Output for Last 24 Hours 03/21/23 03/22/23 03/23/23 23:59 23:59 23:59 Intake Total 500 / 500 Balance 500 / 500 Lab / Micro Data 03/22/23 22:50 03/22/23 22:50 Labs: Laboratory Results - last 24 hr 03/22/23 22:35: Urine Opiates Screen NEGATIVE, Urine Methadone Screen NEGATIVE, Ur Barbiturates Screen NEGATIVE, Ur Phencyclidine Scrn NEGATIVE, Ur Amphetamines Screen NEGATIVE, MDMA (Ecstasy) Screen NEGATIVE, U Benzodiazepines Scrn NEGATIVE, Urine Cocaine Screen NEGATIVE, U Cannabinoids Screen NEGATIVE, Ur Drug Screen Comment 03/22/23 22:50: WBC 9.1, RBC 5.28, Hgb 16.8 H, Hct 46.8, MCV 88.6, MCH 31.8, MCHC 35.9, RDW Std Deviation 40.2, RDW Coeff of Jessica 12.4, Plt Count 367, MPV 9.2, Immature Gran % (Auto) 0.300, Neut % (Auto) 58.3, Lymph % (Auto) 34.2, [place] % (Auto) 6.3, Eos % (Auto) 0.1, Baso % (Auto) 0.8, Absolute Neuts (auto) 5.3, Absolute Lymphs (auto) 3.11, Nucleated RBC % 0, Sodium 140, Potassium 4.0, Chloride 108 H, Carbon Dioxide 25.0, Anion Gap 7, BUN 7, Creatinine 0.86, Estim Creat Clear Calc 138.63, Est GFR (MDRD) Af Amer 137, Est GFR (MDRD) Non-Af 113, BUN/Creatinine Ratio 8.1 L, Glucose 117 H, Calcium 9.1, Total Bilirubin 0.70, GGT 34, AST 18, ALT 27, Alkaline Phosphatase 105, Total Protein 8.1, Albumin 4.4, Globulin 3.7, Albumin/Globulin Ratio 1.2, Ethyl Alcohol 212.0 03/23/23 01:30: PT 12.2, INR 0.9 Physical Exam Narrative Physical Examination: General: Awake, alert, oriented x 3 and cooperative, seated upright in MS bedside chair, well-appearing, no evidence of any withdrawal. Skin: Normal color, normal turgor, no icterus, no cyanosis. HEENT: AT/NC, EOMI, PERRLA, MMM. Lungs: CTA bilaterally, moderate effort, mild decrease BL bases, no rales, ronchi or wheezing. Heart: Regular rate and rhythm; no gallop, rub audible. Abdomen: Soft, NTTP, ND, normal BS, no HSM. Extremities: No cyanosis, clubbing, or edema. Neurological: Patient awake, alert, oriented as noted, cognitive function intact; pupils equally reactive to light and accommodation, cranial nerves II- XII grossly normal, moving all 4 extremities, no focal deficits, strength preserved, no evidence of any withdrawal, no evidence of any tremors. Psychiatric: Affect appears normal, appropriately interactive, no acute evidence of depressive or anxiety feelings. Assessment & Plan Assessment/Plan (1) Desire for detoxification: PLAN: Plan The patient is a 27 y/o M w/ PMHx: Asthma, Anxiety and Depression, Chronic migraines, Tobacco use, Polysubstance abuse, EtOH abuse who presents to the [facility] ED on 03/23/23 with history of alcohol withdrawal normally drinking 24, 12 ounce beers daily previously 2 years prior to that had been on hard liquor with vodka but stopped that with decreased of his alcohol intake with increased lethargy, fatigue with request for alcohol withdrawal treatment. #1. Acute EtOH Abuse with Acute Withdrawal: Workup in the ED included CBC with WC 9.1, he 116.8, platelet 367 without marked shift, unremarkable coags, CMP with glucose 117 otherwise not marked appearing, UDS negative, ethyl alcohol 212. Admitted to MS, admitted to MS, initiated and continued on protocol with taper course of Phenobarbital, as needed gabapentin, Catapres, Bentyl, Vistaril, IV fluids, IV antiemetics, Tylenol as needed for pain. Case management and 180 consulted. Mag, phos levels obtained and were normal. Maintained on CIWA protocol concurrently. 03/23/2023 unfortunately patient decision to leave AGAINST MEDICAL ADVICE citing certain family needs at this time. He states he will use 180 and use his sponsor. #2. Polysubstance abuse: History of cocaine and methamphetamine usage, encourage clean status, UDS with no agents, case management/social work as well as 180 consulted. #3. Chronic asthma: Strongly encouraged tobacco cessation. PRN albuterol, HOB, IS parameters. #4. Tobacco Abuse: Encouraged cessation, inpatient consultation per RT, NR if desired. #5. Anxiety and depression: Per current list on a regimen, likely contributing greatly to his substance and alcohol abuse, case management/social work/20 consulted. #6. DVT prophylaxis: Low risk, encourage ambulation. Charges/Coding Procedures Hospitalists Procedures: Other Procedure - See Report ([id number]=Ixtk day admission, non-billing)
[2023-03-23 07:59] LABS: Phosphorus 2.9 mg/dL (2.5-4.9)
[2023-03-23] MEDS: Thiamine Hydrochloride 100 MG Tablet PO (08:43)
[2023-03-23] MEDS: Folic Acid 1 MG Tablet PO (08:43)
[2023-03-23 10:40] VITALS: BP 133/84; PULSE 87; RESP 16; TEMP 36.8; O2SAT 96
--- NOTE | 2023-03-23 10:46 | NURSING ---
pt leaving ama
--- NOTE | 2023-03-23 13:20 | DS.PCM_ITS ---
Providers Date of Admission: 03/23/23 Date of Discharge: 03/23/23 Primary Care Physician: Shelby Primary Care Phys Reason For Visit: ALCOHOL WITHDRAWL Diagnosis Discharge Diagnosis (1) Desire for detoxification: Status: Acute Plan: DISCHARGE DIAGNOSES: #1. Acute EtOH Abuse with Acute Withdrawal, left AMA same day of admission #2. Polysubstance abuse w/ History of cocaine and methamphetamine usage, UDS with no agents #3. Chronic asthma #4. Tobacco Abuse #5. Anxiety and depression Medications at Discharge Home Medications NK 08/05/22 Hospital Course Operations None Procedures None Summary of Care Provided Minutes Spent on Discharge: 35 Hospital Course: The patient is a 27 y/o M w/ PMHx: Asthma, Anxiety and Depression, Chronic migraines, Tobacco use, Polysubstance abuse, EtOH abuse who presented to the [facility] ED on 03/23/23 with history of alcohol withdrawal normally drinking 24, 12 ounce beers daily previously 2 years prior to that had been on hard liquor with vodka but stopped that with decreased of his alcohol intake with increased lethargy, fatigue with request for alcohol withdrawal treatment. Workup in the ED included CBC with WC 9.1, he 116.8, platelet 367 without marked shift, unremarkable coags, CMP with glucose 117 otherwise not marked appearing, UDS negative, ethyl alcohol 212. Admitted to [place], admitted to [place], initiated and continued on protocol with taper course of Phenobarbital, as needed gabapentin, Catapres, Bentyl, Vistaril, IV fluids, IV antiemetics, Tylenol as needed for pain. Case management and 180 consulted. Mag, phos levels obtained and were normal. Bianka ained on CIWA protocol concurrently. 03/23/2023 unfortunately patient decision to leave AGAINST MEDICAL ADVICE citing certain family needs at this time. He stateed he will use 180 and use his sponsor. Weight / BMI Weight Weight: 198 lb Body Mass Index (BMI) 27.6 ABG / Lab / Microbiology Data 03/22/23 22:50 03/22/23 22:50 Laboratory: Laboratory Results - last 24 hr 03/22/23 22:35: Urine Opiates Screen NEGATIVE, Urine Methadone Screen NEGATIVE, Ur Barbiturates Screen NEGATIVE, Ur Phencyclidine Scrn NEGATIVE, Ur Amphetamines Screen NEGATIVE, MDMA (Ecstasy) Screen NEGATIVE, U Benzodiazepines Scrn NEGATIVE, Urine Cocaine Screen NEGATIVE, U Cannabinoids Screen NEGATIVE, Ur Drug Screen Comment 03/22/23 22:50: WBC 9.1, RBC 5.28, Hgb 16.8 H, Hct 46.8, MCV 88.6, MCH 31.8, MC HC 35.9, RDW Std Deviation 40.2, RDW Coeff of Jessica 12.4, Plt Count 367, MPV 9.2, Immature Gran % (Auto) 0.300, Neut % (Auto) 58.3, Lymph % (Auto) 34.2, [place] % (Auto) 6.3, Eos % (Auto) 0.1, Baso % (Auto) 0.8, Absolute Neuts (auto) 5.3, Absolute Lymphs (auto) 3.11, Nucleated RBC % 0, Sodium 140, Potassium 4.0, Chloride 108 H, Carbon Dioxide 25.0, Anion Gap 7, BUN 7, Creatinine 0.86, Estim Creat Clear Calc 138.63, Est GFR (MDRD) Af Amer 137, Est GFR (MDRD) Non-Af 113, BUN/Creatinine Ratio 8.1 L, Glucose 117 H, Calcium 9.1, Total Bilirubin 0.70, GGT 34, AST 18, ALT 27, Alkaline Phosphatase 105, Total Protein 8.1, Albumin 4.4, Globulin 3.7, Albumin/Globulin Ratio 1.2, Ethyl Alcohol 212.0 03/23/23 01:30: PT 12.2, INR 0.9 03/23/23 07:32: Phosphorus 2.9, Magnesium 2.0 Meaningful Use Info Meaningful Use Diagnoses (Choose all that apply): None applicable Discharge Plan Admission Admit Date/Time: 03/23/23 00:15 Primary Reason for Your Visit: EtOH abuse, Detoxification treatment Attending Provider: Jacquie Beckwith Primary Care Provider: Care Physician,No Primary Consulting Providers: Stan Thomas Instructions Patient Instructions: Alcohol Addiction, Addiction: Your Treatment Options Discharge Orders/Prescriptions Prescriptions: No Action NK Referrals / Follow Up: Care Physician,No Primary [Primary Care Provider] - (Please establish with local primary care and obtain first open visit.) Disposition Disposition (needs filled in before D/C Order can be placed): Against Medical Advice Charges/Coding Visit Charges Inpatient E&M: 96421 Disch Hosp >30min
== END 2023-03-23 10:47 | disposition left against medical advice (07) ==
LOC: ED 03-23 00:17 → MS3 03-23 07:02
PROVIDERS: Admitting Provider Internal Medicine; Emergency Provider Emergency Medicine; Referring Provider Family Medicine; Visit Provider Family Medicine
DX: F10.139 Alcohol abuse with withdrawal, unspecified (principal); F14.19 Cocaine abuse with unspecified cocaine-induced disorder; F15.10 Other stimulant abuse, uncomplicated; F41.9 Anxiety disorder, unspecified; F32.A Depression, unspecified; J45.909 Unspecified asthma, uncomplicated; F17.210 Nicotine dependence, cigarettes, uncomplicated; Y90.7 Blood alcohol level of 200-239 mg/100 ml
CPT/HCPCS: 36415; 80053; 80307; 80320; 82977; 83735; 84100; 85025; 85610; 93005; 96360; 96361; 99221; 99284; J7120; A4216; G0378; G0480

== ENCOUNTER 2023-05-01 05:04 | Observation (INO) | payer MEDICAID, SELFPAY ==
[2023-05-01 05:05] VITALS: BP 120/76; PULSE 93; RESP 18; TEMP 36; O2SAT 96
[2023-05-01 05:10] VITALS: BMI 28.2
--- NOTE | 2023-05-01 05:25 | EDS_ITS ---
HPI History of Present Illness Chief Complaint: ETOH Intox Informant: patient Narrative Narrative: Patient presents requesting detox from alcohol. Does not use any other substances. Averages quite a bit of alcohol daily, around 24 beers in addition to low proof liquor that varies in amount. He states his last drink was just prior to getting here, and he still feels shaky like he has not had enough. He states he is here under court order, but he does want to stop drinking and get his life straightened out. He admits that he left AMA 24 hours into his detox the last time he was here, and he does not intend to do that again. [facility] Medical History (Updated 05/01/23 @ 05:[address] Jacquie Beckwith MD) Alcohol abuse Anxiety and depression Asthma Migraines Polysubstance abuse Tobacco abuse Home Medications NK 08/05/22 [History Last Taken Unknown] Allergy/AdvReac Type Severity Reaction Status Date / Time No Known Allergies Allergy Verified 03/22/23 22:05 Family History (Updated 05/01/23 @ 05:[address] Jacquie Beckwith MD) Uncle Alcohol abuse Paternal uncles. Grandfather Alcohol abuse Mother No problems noted. Father No problems noted. Surgical History (Updated 05/01/23 @ 05:[address] Jacquie Beckwith MD) No history of previous surgery Social History (Updated 05/01/23 @ 05:[address] Jacquie Beckwith MD) household members: none Smoking Status: Current every day smoker tobacco type: cigarettes Smoking packs per day: 0.5 Smoking cigarettes per day: 10.0 alcohol intake: current details: 10 24 ounce beers daily and hard liquor shots substance use type: crack/cocaine and amphetamines ROS ROS ED Constitutional Constitutional ED: Reports other Details: Feeling shaky ; Denies chills or fever(s) Eyes Eyes: Denies change in vision or diplopia ENT ENT ED: Denies rhinorrhea or sore throat Cardiovascular Cardiovascular: Denies chest pain or palpitations Respiratory/Chest Respiratory/Chest: Denies cough or dyspnea Gastrointestinal Gastrointestinal: Denies abdominal pain, diarrhea, nausea or vomiting Genitourinary Genitourinary ED: Denies dysuria or hematuria Musculoskeletal Musculoskeletal: Denies back pain or neck pain Integumentary Denies abscess or rash Neurologic Neurologic: Denies headache(s), paresthesias or weakness Psychiatric Psychiatric: Reports anxiety; Denies suicidal thoughts EXAM Physical Exam Const Vital Signs: 05/01/23 05:05 Temperature 96.8 F L Temperature Source Temporal Pulse Rate 93 Respiratory Rate 18 Blood Pressure 120/76 Blood Pressure Mean 90 Pulse Ox 96 Oxygen Delivery Method Room Air Positive well nourished and well developed General Appearance ED: well developed and NAD HEENT Reports moist mucous membranes normocephalic and atraumatic Eyes PERRL and EOMs intact bilaterally Neck full ROM and supple Resp normal respiratory effort and clear to auscultation bilaterally Cardio regular rate, regular rhythm and no murmurs GI non-tender and non-distended Auscultation: normoactive bowel sounds Palpation: soft Back/Spine no CVA tenderness General Back: other FROM Extremity normal to inspection General Extremety ED: Negative for edema, pulses abnormal or tenderness General Extremity: Negative for edema or pulses abnormal Neuro oriented x3, CN's II-XII intact bilaterally and no sensory deficits noted Sensorium / Orientation: awake and alert Motor Exam: strength 5/5 throughout Skin no rashes or lesions noted and no wounds MDM MDM MDM Narrative Medical decision making narrative: Normal vital signs, no history of seizures recently or delirium tremens at this time. Having some mild withdrawal symptoms, will start him on phenobarbital and admit him to the medical floor. Lab Data Attestation: I reviewed the patient's lab results. Labs: Laboratory Results - last 24 hr 05/01/23 05:30 Urine Opiates Screen NEGATIVE Urine Methadone Screen NEGATIVE Ur Barbiturates Screen NEGATIVE Ur Phencyclidine Scrn NEGATIVE Ur Amphetamines Screen NEGATIVE MDMA (Ecstasy) Screen NEGATIVE U Benzodiazepines Scrn NEGATIVE Urine Cocaine Screen NEGATIVE U Cannabinoids Screen NEGATIVE Ur Drug Screen Comment Management Discussion w/another healthcare provider: Hospitalist Discharge Plan Triage Chief Complaint: ETOH Intox ED Provider: Marcio Cardnoa Dx/Rx/DC Orders Clinical Impression: Alcohol dependence Primary Care Provider: Care Physician,No Primary
--- NOTE | 2023-05-01 05:32 | PCM.HP.STD ---
HPI - General General Date of Admission: 05/01/23 Date of Service: 05/01/23 Chief Complaint: EtOH detoxification request, withdrawal. HPI Narrative The patient is a 27 y/o M w/ PMHx: Chart reported Hx Polysubstance abuse (crack/cocaine and amphetamines) although patient currently denying, Tobacco use, EtOH abuse (Lower proof liquor, wine, 24 beers daily/mix), Anxiety and Depression, Asthma, Chronic migraines who presents to the [facility] ED on 05/01/23 with last EtOH intake reported prior to ED arrival but less than his normal with complaint of mild tremors and tactile disturbances otherwise no severe withdrawal symptoms yet reporting that he is required to have withdrawal treatment and that it is court appointed. Workup in the ED included T96.8, heart rate 93, BP 120/76, respiratory rate 18, 96% on room air, pending CBC, CMP, urine drug screen, ethyl alcohol level upon evaluation of patient. In the ED given patient mild withdrawal symptoms patient administered phenobarbital 97.2 mg p.o. x 1. [facility] Medical History (Updated 05/01/23 @ 05:[address] Jacquie Beckwith MD) Alcohol abuse Anxiety and depression Asthma Migraines Polysubstance abuse Tobacco abuse Home Medications NK 08/05/22 [History Last Taken Unknown] Allergy/AdvReac Type Severity Reaction Status Date / Time No Known Allergies Allergy Verified 03/22/23 22:05 Family History (Updated 05/01/23 @ 05:[address] Jacquie Beckwith MD) Uncle Alcohol abuse Paternal uncles. Grandfather Alcohol abuse Mother No problems noted. Father No problems noted. Surgical History (Updated 05/01/23 @ 05:[address] Jacquie Beckwith MD) No history of previous surgery Social History (Updated 05/01/23 @ 05:[address] Jacquie Beckwith MD) household members: none Smoking Status: Current every day smoker tobacco type: cigarettes Smoking packs per day: 0.5 Smoking cigarettes per day: 10.0 alcohol intake: current details: 10 24 ounce beers daily and hard liquor shots substance use type: crack/cocaine and amphetamines ROS ROS Narrative Admission Review of Systems: CONSTITUTIONAL: No weight loss, fever, chills, + weakness or fatigue. HEENT: + Chronic migraines. Eyes: No visual loss, blurred vision, double vision or yellow sclerae. Ears, Nose, Throat: No hearing loss, sneezing, congestion, runny nose or sore throat. SKIN: No rash or itching, lesions, wounds. CARDIOVASCULAR: No chest pain, chest pressure or chest discomfort, palpitations, edema, orthopnea, syncopal events. RESPIRATORY: No shortness of breath, cough or sputum, wheezing, hemoptysis. GASTROINTESTINAL: + Chronic diarrhea. No anorexia, nausea, vomiting, abdominal pain, melena, BRBPR. GENITOURINARY: No dysuria, frequency, urgency or retention. NEUROLOGICAL: + Mild tremors and reported tactile disturbances, chronic migraines. No dizziness, syncope, paralysis, ataxia, numbness or tingling in the extremities, focal weakness, change in bowel or bladder control, seizure. MUSCULOSKELETAL: No muscle, back pain, joint pain or stiffness. HEMATOLOGIC: No anemia, bleeding or bruising. LYMPHATICS: No enlarged nodes. No history of splenectomy. PSYCHIATRIC: + History of anxiety and depression. ENDOCRINOLOGIC: No reports of sweating, cold or heat intolerance. No polyuria or polydipsia. ALLERGIES: No history of asthma, hives, eczema or rhinitis. Vital Signs Vital Signs Vital Signs: 05/01/23 05:05 Temperature 96.8 F L Temperature Source Temporal Pulse Rate 93 Respiratory Rate 18 Blood Pressure 120/76 Blood Pressure Mean 90 Pulse Ox 96 Oxygen Delivery Method Room Air Physical Exam Narrative Physical Examination: General: Awake, alert, oriented x 3 and cooperative, seated upright in the ED bed, mildly restless, reporting mild tremors and tactile disturbances. Skin: Normal color, normal turgor, no icterus, no cyanosis. HEENT: AT/NC, EOMI, PERRLA, MMM, no carotid bruits or JVD noted. Lungs: CTA bilaterally, moderate effort, mild decrease BL bases, no rales, ronchi or wheezing. Heart: Mildly tachycardic with regular rhythm; no gallop, rub audible. Abdomen: Soft, NTTP, ND, normal BS, no appreciated HSM. Extremities: No cyanosis, clubbing, or edema. Neurological: Patient awake, alert, oriented as noted, cognitive function intact; pupils equally reactive to light and accommodation, cranial nerves II-XII grossly normal, moving all 4 extremities, no focal deficits, strength preserved, mildly restless, very mild tremors noted, subjective tactile disturbances reported per patient. Psychiatric: Affect appears fatigued, mildly restless, no acute evidence of depressive or anxiety feeling but does have underlying history s. Assessment & Plan Assessment/Plan (1) Alcohol withdrawal: PLAN: Plan The patient is a 27 y/o M w/ PMHx: Chart reported Hx Polysubstance abuse (crack/cocaine and amphetamines) although patient currently denying, Tobacco use, EtOH abuse (Lower proof liquor, wine, 24 beers daily/mix), Anxiety and Depression, Asthma, Chronic migraines who presents to the [facility] ED on 05/01/23 with last EtOH intake reported prior to ED arrival but less than his normal with complaint of mild tremors and tactile disturbances otherwise no severe withdrawal symptoms. #1. Acute EtOH Withdrawal: Will admit to MS, routine labs obtained in the ED upon presentation and pending upon evaluation of patient. Given interest in sobriety, will initiate and continue on protocol with taper course of Phenobarbital, as needed gabapentin, Catapres, Bentyl, Vistaril, IV fluids, IV antiemetics, Tylenol as needed for pain. Will consult Case management for assistance for transition to next level of rehabilitation care. Mag, phos pending. Maintain on CIWA protocol concurrently. #2. Anxiety and depression: Likely in large part contributing to his substance abuse, not currently on any chronic medication, will encourage follow-up for counseling, case management/180 consulted. #3. Polysubstance abuse chart reported: Patient with previous reported history of crack/cocaine, amphetamine usage, currently denying, urine drug screen pending. #4. Chronic migraines: Not on any chronic regimen, will have as needed ibuprofen, plan to as noted hydrate upon admission. #5. Chronic asthma: Encouraged tobacco cessation, PRN albuterol. #6. Tobacco Abuse: Encouraged cessation, inpatient consultation per RT, NR if desired. #7. DVT prophylaxis: Low risk for type admission. Charges/Coding Visit Charges Inpatient E&M: 39970 Init Hosp L2
[2023-05-01 05:43] VITALS: RESP 16
[2023-05-01 05:52] VITALS: BP 124/84; PULSE 96; RESP 14; TEMP 36.2; O2SAT 99
[2023-05-01 05:56] LABS: Absolute Lymphocyte Count 4.15 X10^3/uL (0.83-4.51); Absolute Neutrophil Count 4.9 X10^3/uL (2.0-7.7); Basophil# 0.12 X10^3/uL; Basophil% 1.2 % (0-1); Eosinophil# 0.03 X10^3/uL; Eosinophils% 0.3 % (0-5); Hematocrit 51.3 % (40-54); Lymphocyte # 4.15 X10^3/ul (0.83-4.51); Lymphocyte % 41.9 % (19-41); Mean Corp Hgb Conc 35.3 g/dL (32-36); Mean Corpuscular Hgb 32.9 pg (27.0-32.0); Mean Corpuscular Volume 93.3 fL (80-94); Mean Platelet Vol. 9.1 fl (6.2-12.0); Monocyte# 0.64 X10^3/uL; Monocyte% 6.5 % (0-10); NRBC Flagged by Analyzer 0 % (0-5); Neutrophil # 4.91 X10^3/uL (2.7-7.7); Neutrophil % 49.6 % (47-70); Platelet Count 371 K/mm3 (150-450); RBC Distribution Width CV 12.8 % (11.6-14.6); White Blood Count 9.9 K/mm3 (4.4-11.0)
[2023-05-01 06:00] LABS: Hemoglobin 18.1 g/dL (13.0-16.5)
[2023-05-01 06:01] LABS: Amphetamine Urine VISTA NEGATIVE (<1000 ng/mL); Barbiturate Urine VISTA NEGATIVE (< 200 ng/mL); Benzodiazepine Urine VISTA NEGATIVE (< 200 ng/mL); Cocaine Urine VISTA NEGATIVE (< 300 ng/mL); Ecstacy Urine VISTA NEGATIVE (< 500 ng/mL); Methadone Urine VISTA NEGATIVE (< 300 ng/mL); PCP Urine VISTA NEGATIVE (< 25 ng/mL); THC Urine VISTA NEGATIVE (< 50 ng/mL); Vista UDS pH Range 7
[2023-05-01 06:01] LABS: Differential Indicated SCAN CRITERIA MET
[2023-05-01] MEDS: Phenobarbital 32.4 MG Tablet 97.2 MG PO ×4 (06:01→16:02)
[2023-05-01 06:07] LABS: Prothrombin Time (Protime)PT. 13.5 SECONDS (11.7-14.9)
[2023-05-01 06:10] LABS: Phosphorus 3.4 mg/dL (2.5-4.9)
[2023-05-01 06:14] LABS: ALB/GLOB Ratio 1.1 RATIO (0.9-2.4); AST(SGOT) 31 U/L (15-37); Alanine Aminotransfer ALT/SGPT 49 U/L (16-61); Albumin, Serum 4.1 g/dL (3.2-5.0); Alkaline Phosphatase 92 U/L (45-117); Anion Gap 10 (5-15); BUN 6 mg/dL (7-18); BUN/Creat Ratio 6.4 RATIO (10-20); Calcium,Total 8.6 mg/dL (8.5-10.1); Chloride 107 mmol/L (98-107); Creatinine, Serum 0.94 mg/dL (0.70-1.30); EST Glomerular Filtration Rate 103 mL/min (>60); Est Glom Filt Rate - Afr Amer 125 mL/min (>60); Globulin 3.7 g/dL (2.2-4.2); Glucose 130 mg/dL (74-106); Magnesium 2.1 mg/dL (1.6-2.6); Potassium 3.8 mmol/L (3.5-5.1); Protein, Total 7.8 g/dL (6.4-8.2); Sodium Level 143 mmol/L (136-145)
[2023-05-01 06:43] LABS: Differential Comment SCANNED
[2023-05-01 06:45] VITALS: BMI 28.0
[2023-05-01 06:55] VITALS: BP 142/90; PULSE 115; RESP 16; TEMP 36.6; O2SAT 98
--- NOTE | 2023-05-01 06:58 | PCM.PN.HOSP ---
Reason for Visit Reason for Visit: Diagnoses Alcohol use, unspecified with withdrawal, unspecified (05/01/23) Subjective Subjective Feeling rough. Objective Data Objective Data Vital Signs: Vital Signs Temp Pulse Resp BP Pulse Ox O2 Del Method 36.2 C L 96 14 124/84 H 99 Room Air 05/01/23 05:52 05/01/23 05:52 05/01/23 05:52 05/01/23 05:52 05/01/23 05:52 05/01/23 05:05 Oxygen Delivery Method Room Air Lab / Micro Data 05/01/23 05:41 05/01/23 05:41 Labs: Laboratory Results - last 24 hr 05/01/23 05:30: Urine Opiates Screen NEGATIVE, Urine Methadone Screen NEGATIVE, Ur Barbiturates Screen NEGATIVE, Ur Phencyclidine Scrn NEGATIVE, Ur Amphetamines Screen NEGATIVE, MDMA (Ecstasy) Screen NEGATIVE, U Benzodiazepines Scrn NEGATIVE, Urine Cocaine Screen NEGATIVE, U Cannabinoids Screen NEGATIVE, Ur Drug Screen Comment 05/01/23 05:41: WBC 9.9, RBC 5.50, Hgb 18.1 H*, Hct 51.3, MCV 93.3, MCH 32.9 H, MCHC 35.3, RDW Std Deviation 44.0 H, RDW Coeff of Jessica 12.8, Plt Count 371, MPV 9.1, Immature Gran % (Auto) 0.500, Neut % (Auto) 49.6, Lymph % (Auto) 41.9 H, [place] % (Auto) 6.5, Eos % (Auto) 0.3, Baso % (Auto) 1.2 H, Absolute Neuts (auto) 4.9, Absolute Lymphs (auto) 4.15, Nucleated RBC % 0, Differential Comment SCANNED, Diff Path Review June foll, PT 13.5, INR 1.0, Sodium 143, Potassium 3.8, Chloride 107, Carbon Dioxide 26.0, Anion Gap 10, BUN 6 L, Creatinine 0.94, Est GFR (MDRD) Af Amer 125, Est GFR (MDRD) Non-Af 103, BUN/Creatinine Ratio 6.4 L, Glucose 130 H, Calcium 8.6, Phosphorus 3.4, Magnesium 2.1, Total Bilirubin 0.60, AST 31, ALT 49, Alkaline Phosphatase 92, Total Protein 7.8, Albumin 4.1, Globulin 3.7, Albumin/Globulin Ratio 1.1, Ethyl Alcohol 208.0 Physical Exam Const alert and no apparent distress Constitutional Narrative: slightly diaphoretic. non-toxic. pleasant. HEENT head/scalp atraumatic Resp normal respiratory effort, no retractions, no use of accessory muscles and clear to auscultation bilaterally Cardio regular rate, regular rhythm, S1 normal heart sound and S2 normal heart sound GI GI Narrative: TTP RUQ. Neuro Sensorium / Orientation: awake and alert Assessment & Plan Assessment/Plan (1) Alcohol withdrawal: PLAN: Plan Acute EtOH Withdrawal: Taper course of Phenobarbital, as needed gabapentin, Catapres, Bentyl, Vistaril, IV fluids, IV antiemetics, Tylenol as needed for pain. Addiction med for outpt resources Chronic conditions: Anxiety and depression: Likely in large part contributing to his substance abuse, not currently on any chronic meds. complicating recovery and sobriety Polysubstance abuse chart reported: Patient with previous reported history of crack/cocaine, amphetamine usage, currently denying, urine drug screen pending.Complicates long-term recovery. Chronic migraines: Not on any chronic regimen, will have as needed ibuprofen, plan to as noted hydrate upon admission. Chronic asthma: Encouraged tobacco cessation, PRN albuterol. Tobacco Abuse: Encouraged cessation, inpatient consultation per RT, NR if desired. DVT prophylaxis: Low risk for type admission. Charges/Coding Visit Charges Inpatient E&M: 56364 Subs Hosp L2
[2023-05-01] MEDS: Lactated Ringers 1,000 ML 125 ML IV (08:15)
[2023-05-01] MEDS: Ondansetron 8 MG Tablet PO (08:18)
[2023-05-01 08:35] VITALS: BP 143/89; PULSE 88; RESP 16; TEMP 36.3; O2SAT 99
--- NOTE | 2023-05-01 08:51 | ADDICTION ---
clinician met with client to discuss tx hx and detox services. client presented to ER with severe sx's of alcohol withdrawal. His [employer] plans intelligence officer has mandated him to remain in detox. upon release from detox, he will be transported by probation to [facility]. RAMP and ICU staff is aware of this. client is aware of this and is feeling anxiety about this. clinician assisted client in exploring emotions and discussed coping/calming skills; mindfulness and positive self talk. client is able to identify primary factors of relapse; leaving [facility] (where he was receiving tx). He wanted to start at a [facility] however the intake process seemed daunting. Client appears to be in the preparation stage of change; he verbalizes a plan (upon release from [facility]) to reengage in tx services to remain sober.
[2023-05-01] MEDS: Thiamine Hydrochloride 100 MG Tablet PO (09:29)
[2023-05-01] MEDS: Folic Acid 1 MG Tablet PO (09:29)
[2023-05-01] MEDS: Loperamide 2 MG Capsule PO (13:41)
[2023-05-01 13:42] VITALS: BP 138/78; PULSE 55; RESP 17; TEMP 36.3; O2SAT 98
--- NOTE | 2023-05-01 16:35 | CASEMGMT ---
Social Work RN reporting pt is asking to speak with addiction therapist. SW met with pt and updated that addiction therapist comes once a day and will be back tomorrow. SW spent time with pt and allowed pt to express his feelings regarding loneliness, anxiety of going to [facility] at discharge and desire to be with his daughter. Emotional support provided and encouragement for positive life changes and seeking treatment after [facility] time for addiction and emotional health. Addiction therapist to see pt again tomorrow. SHEILA Bella
--- NOTE | 2023-05-01 18:00 | DS.PCM_ITS ---
Providers Date of Admission: 05/01/23 Primary Care Physician: Shelby Primary Care Phys Reason For Visit: ETOH DETOX/WITHDRAWL Diagnosis Discharge Diagnosis (1) Alcohol withdrawal: Status: Acute Code(s): F10.939 - Alcohol use, unspecified with withdrawal, unspecified Plan Acute EtOH Withdrawal: * Taper course of Phenobarbital, as needed gabapentin, Catapres, Bentyl, Vistaril, IV fluids, IV antiemetics, Tylenol as needed for pain. * Addiction med for outpt resources Chronic conditions: * Anxiety and depression: Likely in large part contributing to his substance abuse, not currently on any chronic meds. complicating recovery and sobriety * Polysubstance abuse chart reported: Patient with previous reported history of crack/cocaine, amphetamine usage, currently denying, urine drug screen pending.Complicates long-term recovery. * Chronic migraines: Not on any chronic regimen, will have as needed ibuprofen, plan to as noted hydrate upon admission. * Chronic asthma: Encouraged tobacco cessation, PRN albuterol. * Tobacco Abuse: Encouraged cessation, inpatient consultation per RT, NR if desired. DVT prophylaxis: Low risk for type admission. Medications at Discharge Home Medications NK 08/05/22 Hospital Course Operations None Procedures None Summary of Care Provided Hospital Course: Patient was here for alcohol withdrawal. Patient drinks about 24 pack of beer per day. He started on phenobarbital. Later in the day on the , he left AGAINST MEDICAL ADVICE. 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 Weight / BMI Weight Weight: 91.4 kg Body Mass Index (BMI) 28.0 ABG / Lab / Microbiology Data 05/01/23 05:41 05/01/23 05:41 D/C Instructions Discharge Diet: No restrictions Meaningful Use Info Meaningful Use Diagnoses (Choose all that apply): None applicable Discharge Plan Admission Admit Date/Time: 05/01/23 05:32 Primary Reason for Your Visit: Alcohol withdrawal Attending Provider: Carmelo Albert Primary Care Provider: Care Physician,No Primary Consulting Providers: Jacquie Beckwith Discharge Orders/Prescriptions Prescriptions: No Action NK Referrals / Follow Up: Care Physician,No Primary [Primary Care Provider] - Disposition Disposition (needs filled in before D/C Order can be placed): Against Medical Advice
[2023-05-02 09:32] LABS: Pathologist Review Reviewed
== END 2023-05-01 17:35 | disposition left against medical advice (07) ==
LOC: ED 05:35 → ICU 05:39
PROVIDERS: Admitting Provider Family Medicine; Emergency Provider Emergency Medicine
DX: F10.239 Alcohol dependence with withdrawal, unspecified (principal); F14.19 Cocaine abuse with unspecified cocaine-induced disorder; F15.10 Other stimulant abuse, uncomplicated; F17.210 Nicotine dependence, cigarettes, uncomplicated; J45.909 Unspecified asthma, uncomplicated
CPT/HCPCS: 80053; 80307; 80320; 83735; 84100; 85025; 85610; 96360; 96361; 99221; 99284; J7120; A4216; G0378; G0480

== ENCOUNTER 2023-06-19 20:57 | Emergency (ER) | payer MEDICAID, SELFPAY ==
[2023-06-19 20:58] VITALS: BP 167/87; PULSE 97; RESP 14; TEMP 36; O2SAT 99; BMI 29.0
--- NOTE | 2023-06-19 21:48 | RAD_ITS ---
INDICATION: Dizziness EXAMINATION/TECHNIQUE: X-RAY - XR Chest 2 Views COMPARISON: None. FINDINGS: LINES/DEVICES: None. LUNGS: No consolidation. No pneumothorax. MEDIASTINUM: Unremarkable. CARDIAC SILHOUETTE: Not enlarged. BONES AND SOFT TISSUES: No acute abnormalities. RAD/Chest PA and Lateral IMPRESSION: No evidence of active intrathoracic disease. Electronically Signed: Rona Rivera MD at 0:12 EDT ,
--- NOTE | 2023-06-19 21:49 | EX.ED.DYSGE1 ---
HPI History of Present Illness Chief Complaint: Dizziness Informant: patient Onset/Context/Timing Onset: Today Context: Sudden Onset Timing: Continuous Quality: Tightness Location: Neck Worsened by: Nothing Relieved by: Nothing Narrative Narrative: Patient presents with dizziness and lightheadedness that began today. Patient states it has been constant. Patient states she feels some numbness in his left arm and some tightness in his neck. Patient states he also had a weird taste in his mouth earlier today. Patient denies any palpitations. Patient admits to some left upper chest pain. Patient denies any nausea or vomiting. Patient does admit to a mild headache. Patient states nothing makes his symptoms better and nothing makes them worse. [facility] Medical History Alcohol abuse Alcohol dependence Anxiety and depression Asthma Migraines Polysubstance abuse Tobacco abuse Home Medications NK 08/05/22 [History Last Taken Unknown] Allergy/AdvReac Type Severity Reaction Status Date / Time No Known Allergies Allergy Verified 06/19/23 21:01 Family History (Updated 05/01/23 @ 05:[address] Jacquie Beckwith MD) Uncle Alcohol abuse Paternal uncles. Grandfather Alcohol abuse Mother No problems noted. Father No problems noted. Surgical History No history of previous surgery Social History household members: none Smoking Status: Current every day smoker tobacco type: cigarettes and e-cigarettes alcohol intake: current details: 10 24 ounce beers daily and hard liquor shots substance use type: crack/cocaine and amphetamines ROS ROS ED Constitutional Constitutional ED: Denies chills or fever(s) Eyes Eyes: Denies blurry vision or change in vision ENT ENT ED: Denies rhinorrhea or sore throat Cardiovascular Cardiovascular: Reports chest pain; Denies palpitations Respiratory/Chest Respiratory/Chest: Denies cough or dyspnea Gastrointestinal Gastrointestinal: Denies nausea or vomiting Genitourinary Genitourinary ED: Denies dysuria or hematuria Musculoskeletal Musculoskeletal: Denies back pain or neck pain Integumentary Denies abscess or rash Neurologic Neurologic: Reports headache(s); Denies weakness Allergic/Immunologic Allergic/Immunologic ED: Denies mouth swelling or urticaria EXAM Physical Exam Const Vital Signs: 06/19/23 20:58 06/19/23 23:33 06/19/23 23:00 Temperature 96.8 F L Temperature Source Temporal Pulse Rate 97 79 Pulse Rate [Lying] 64 Pulse Rate [Sitting (for 1 minute prior to obtaining)] 71 Pulse Rate [Standing (for 1 minute prior to obtaining)] 72 Respiratory Rate 14 18 Respiratory Pattern Blood Pressure 167/87 H 151/85 H Blood Pressure [Lying] 147/88 H Blood Pressure [Sitting (for 1 minute prior to obtaining)] 143/88 H Blood Pressure [Standing (for 1 minute prior to obtaining)] 151/85 H Blood Pressure Mean 113 107 Blood Pressure Mean [Lying] 107 Blood Pressure Mean [Sitting (for 1 minute prior to obtaining)] 106 Blood Pressure Mean [Standing (for 1 minute prior to obtaining)] 107 Pulse Ox 99 100 Oxygen Delivery Method Room Air Room Air 06/19/23 23:38 Temperature Temperature Source Pulse Rate Pulse Rate [Lying] Pulse Rate [Sitting (for 1 minute prior to obtaining)] Pulse Rate [Standing (for 1 minute prior to obtaining)] Respiratory Rate Respiratory Pattern Normal Blood Pressure Blood Pressure [Lying] Blood Pressure [Sitting (for 1 minute prior to obtaining)] Blood Pressure [Standing (for 1 minute prior to obtaining)] Blood Pressure Mean Blood Pressure Mean [Lying] Blood Pressure Mean [Sitting (for 1 minute prior to obtaining)] Blood Pressure Mean [Standing (for 1 minute prior to obtaining)] Pulse Ox Oxygen Delivery Method Positive well nourished and well developed General Appearance ED: well developed and NAD HEENT Reports moist mucous membranes Neck supple and no JVD Resp normal respiratory effort and clear to auscultation bilaterally Cardio regular rate and regular rhythm GI non-tender and non-distended Palpation: soft Extremity normal to inspection General Extremety ED: Negative for edema or tenderness General Extremity: Negative for edema Neuro oriented x3, CN's II-XII intact bilaterally and no sensory deficits noted Sensorium / Orientation: alert Motor Exam: strength 5/5 throughout Psych mental status grossly normal MDM MDM MDM Narrative Medical decision making narrative: Differential diagnosis includes cardiac dysrhythmia, cardiac ischemia, electrolyte abnormality, pneumonia, pneumothorax, dehydration, and anxiety. EKG will be obtained to assess for cardiac dysrhythmia and cardiac ischemia. Chest x-ray will be obtained to assess for pneumonia and pneumothorax. CBC will be obtained to assess for leukocytosis and anemia. Basic metabolic profile will be obtained to assess for electrolyte abnormality and renal function. High-sensitivity troponin will be obtained to assess for cardiac ischemia. COVID-19, influenza, and RSV PCR will be obtained to assess for viral infection. Orthostatic vital signs will be obtained to assess for dehydration. Lab Data Attestation: I reviewed the patient's lab results. Lab results narrative: CBC was reviewed and was within normal limits. Basic metabolic profile was reviewed and was within normal limits. High-sensitivity troponin was reviewed and was normal at 10. Labs: Laboratory Results - last 24 hr 06/19/23 23:05 WBC 8.6 RBC 4.48 L Hgb 14.8 Hct 42.9 MCV 95.8 H MCH 33.0 H MCHC 34.5 RDW Std Deviation 41.5 RDW Coeff of Jessica 12.0 Plt Count 263 MPV 9.6 Immature Gran % (Auto) 0.400 Neut % (Auto) 60.8 Lymph % (Auto) 28.9 Mcintosh % (Auto) 8.4 Eos % (Auto) 0.6 Baso % (Auto) 0.9 Absolute Neuts (auto) 5.2 Absolute Lymphs (auto) 2.47 Nucleated RBC % 0 Sodium 140 Potassium 3.7 Chloride 108 H Carbon Dioxide 27.0 Anion Gap 5 BUN 9 Creatinine 0.90 Estim Creat Clear Calc 145.96 Est GFR (MDRD) Af Amer 131 Est GFR (MDRD) Non-Af 108 BUN/Creatinine Ratio 10.0 Glucose 84 Calcium 8.9 Troponin I High Sens 10 Radiography Chest X-Ray - ED: 2 View, Read by ED Physician, Read by Radiologist and No Acute Disease Diagnostic Testing: Clinical Impression(s) from Imaging Studies Chest X-Ray 06/19/23 21:48 IMPRESSION: No evidence of active intrathoracic disease. Electronically Signed: Rona Rivera MD at 0:12 EDT , PA and lateral chest x-ray was obtained. There are 2 views. On my independent interpretation, lung emmanuel are clear. There is normal cardiac silhouette. Bony thorax is normal. There is no acute process noted. Radiologist also interpreted the x-ray and agrees. EKG Initial EKG: Attestation: I personally reviewed and interpreted this EKG as follows: Interpretation: Sinus Rhythm (75) and No Acute Injury Pattern Comments: EKG was obtained. On my independent interpretation, it showed a normal sinus rhythm with a rate of 75. [place] interval, QRS interval, and QTc intervals were all normal. [place] was normal. There are no acute ST or T wave changes. Treatment and Re-Evaluation :: Patient is given IV fluids. Orthostatic vital signs were obtained and were within normal limits. Patient was advised of his findings. Patient has a HEART score of 1. Patient was advised that this is low risk for acute cardiac event. Patient was instructed to follow-up with his primary care physician in 5 to 7 days. Patient was instructed to return if worse in any way. Patient understood and was agreeable with the plan. All questions were answered. Discharge Plan Triage Chief Complaint: Dizziness ED Provider: Carmelo Mccray Dx/Rx/DC Orders Clinical Impression: Lightheadedness, Paresthesias Instructions: ED Dizziness, Uncertain Cause, ED Paraesthesias Prescriptions: No Action NK Primary Care Provider: Care Physician,No Primary Referrals: Padma Pinto [Non-Staff] - 5-7 Days Care Physician,No Primary [Primary Care Provider] - Disposition Disposition: Home, Self Care
[2023-06-19 23:00] VITALS: BP 151/85; PULSE 79; RESP 18; O2SAT 100
[2023-06-19 23:11] LABS: Absolute Lymphocyte Count 2.47 X10^3/uL (0.83-4.51); Absolute Neutrophil Count 5.2 X10^3/uL (2.0-7.7); Basophil# 0.08 X10^3/uL; Basophil% 0.9 % (0-1); Eosinophil# 0.05 X10^3/uL; Eosinophils% 0.6 % (0-5); Hematocrit 42.9 % (40-54); Hemoglobin 14.8 g/dL (13.0-16.5); Lymphocyte # 2.47 X10^3/ul (0.83-4.51); Lymphocyte % 28.9 % (19-41); Mean Corp Hgb Conc 34.5 g/dL (32-36); Mean Corpuscular Volume 95.8 fL (80-94); Mean Platelet Vol. 9.6 fl (6.2-12.0); Monocyte# 0.72 X10^3/uL; Monocyte% 8.4 % (0-10); NRBC Flagged by Analyzer 0 % (0-5); Neutrophil % 60.8 % (47-70); Platelet Count 263 K/mm3 (150-450); RBC Distribution Width SD 41.5 fl (35.1-43.9); Red Blood Count 4.48 M/mm3 (4.6-6.2); White Blood Count 8.6 K/mm3 (4.4-11.0)
[2023-06-19] MEDS: 0.9% Normal Saline (1000mL) 1,000 ML 1000 ML IV (23:23)
[2023-06-19 23:30] LABS: Anion Gap 5 (5-15); BUN 9 mg/dL (7-18); Calcium,Total 8.9 mg/dL (8.5-10.1); Chloride 108 mmol/L (98-107); EST Glomerular Filtration Rate 108 mL/min (>60); Est Glom Filt Rate - Afr Amer 131 mL/min (>60); Estimated Creatinine Clearance 145.96 ml/min; Glucose 84 mg/dL (74-106); Potassium 3.7 mmol/L (3.5-5.1); Sodium Level 140 mmol/L (136-145); Troponin-I HS 10 pg/mL (3.0-78.0)
[2023-06-19 23:33] VITALS: BP 143/88; BP 147/88; BP 151/85; PULSE 64; PULSE 71; PULSE 72
[2023-06-20 00:48] VITALS: BP 151/85; PULSE 68; RESP 16; TEMP 36.3; O2SAT 100
== END 2023-06-20 00:58 | disposition home or self-care (01) ==
PROVIDERS: Emergency Provider Emergency Medicine; Visit Provider Emergency Medicine
DX: R42 Dizziness and giddiness (principal); R51.9 Headache, unspecified; R20.2 Paresthesia of skin; R20.0 Anesthesia of skin; F17.210 Nicotine dependence, cigarettes, uncomplicated; F17.290 Nicotine dependence, other tobacco product, uncomplicated
CPT/HCPCS: 71046; 80048; 84484; 85025; 87631; 93005; 96360; 96361; 99284; J7030; A4216

== ENCOUNTER 2024-10-01 00:22 | Observation (INO) | payer MEDICAID, SELFPAY ==
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
[2024-10-01 01:52] VITALS: BMI 25.7
--- OUTSIDE RECORDS SUMMARY | 2024-10-01 01:54 | XMS RPT_ITS | CCD ---
Author Organization [facility] Care Team Providers Care Manager Global Name Role Phone Dr. Fior Ridley Emergency Provider Care Physician, No Primary Primary Care Provider Unavailable Dr. Ashley Hirsch Admit Provider Dr. Ashley Hirsch Attending Provider [phone] Ashley Hirsch Other Provider Dr. Carmelo Albert Attending Provider Dr. Carmelo Albert Other Provider Care Physician, No Primary Primary Care Provider Unavailable MD Daquan Reid Emergency Provider [phone] Stan Thomas Admit Provider [phone] Stan Thomas Attending Provider Dr. tSan Thomas Other Provider Care Physician, No Primary Primary Care Provider Unavailable MD Daquan Reid Emergency Provider [phone] Stan Thomas Admit Provider Dr. Stan Thomas Attending Provider Dr. Stan Thomas Other Provider White, Jacquie L Admitting Unavailable White, Jacquie L Consulting Unavailable White, Jacquie L Attending Unavailable Care Physician, No Primary Primary Care Unava ilable Ashley Hirsch Admitting Unavailable Ashley Hirsch Consulting Unavailable Ashley Hirsch Attending Unavailable Care Physician, No Primary Primary Care Unava ilable Carmelo Albert Attending Unavailable Carmelo Albert Consulting Unavailable Stan Thomas Admitting Unavailable William, Stan Consulting Unavailable William, Stan Attending Unavailable Care Physician, No Primary Primary Care Unava ilable Carmelo Albert Attending Unavailable Ashley Hirsch Admitting Unavailable Ashley Hirsch Consulting Unavailable Care Physician, No Primary Primary Care Unava ilable William, Stan Admitting Unavailable William, Stan Consulting Unavailable White, Jacquie L Attending Unavailable White, Jacquie L Referring Unavailable Care Physician, No Primary Primary Care Unava ilable Carmelo Albert Attending Unavailable White, Jacquie L Admitting Unavailable White, Jacquie L Consulting Unavailable Care Physician, No Primary Primary Care Unava ilable Carmelo Mccray Attending Unavailable Care Physician, No Primary Primary Care Unava ilable NACHO RAYA, KATYA Consulting Unavailable NACHO RAYA, KATYA Attending Unavailable LAYO PROCESS DEVELOPMENT CHEMIST-LONG TERM, OLIVIER Admitting Unavailab dominick LOW PROCESS DEVELOPMENT CHEMIST-LONG TERM, VILMA Stokes Consulting Unavaila ble No Family, Physician Primary Care Unavailable Unavailable Primary Care Provider UnavailSONA Giang Attending Unavailable RACHEL BOB DO Attending Unavailable RACHEL BOB DO Primary Care Unavailable RACHEL BOB DO Admitting Unavailable Medications Current Medications Medication Drug Class(es) Dates Sig (Normalized) Sig (Original) acetaminophen 500 mg oral tablet (1 source) Start: 4 End: 4 take 1 tablet by mouth every six hours as needed for pain acetaminophen (Tylenol Extra Strength) 500 MG tablet Indications: Influenza A Take 1 tablet (500 mg) by mouth every 6 hours as needed for mild pain (1-3), moderate pain (4-6), headaches or fever for up to 7 days. 28 tablet 01/28/2024 02/04/2024 Active chlordiazePOXIDE hydrochloride 25 mg oral capsule (1 source) Benzodiazepine Start: 4 End: 4 chlordiazePOXIDE 25 mg oral capsule Dose : 25 mg = 1 cap(s), Oral, TID, X 14 day(s), # 42 cap(s), 0 Refill(s), 07/04/23 9:43:00 PM EDT, Pharmacy: [facility], Seizure due to alcohol withdrawal Alcohol dependence, 180.3, cm, 06/20/23 5:41:00 EDT, Height, 95.3, kg, 06/20/23 5:41:00 EDT, Dosing Weight Start Date: 06/20/23 Stop Date: 07/04/23 Status: Ordered cloNIDine hydrochloride 0.1 mg oral tablet (5 sources) Central alpha-2 Adrenergic Agonist take 1 tablet by mouth twice daily cloNIDine (Catapres) 0.1 MG tablet Take 0.1 mg by mouth 2 times daily. Active oseltamivir 75 mg oral capsule (1 source) Neuraminidase Inhibitor Start: End: take 1 capsule by mouth twice daily oseltamivir (Tamiflu) 75 MG capsule Indications: Influenza A Take 1 capsule (75 mg) by mouth 2 times daily for 5 days. 10 capsule 01/28/2024 02/02/2024 Active risperiDONE 0.5 mg disintegrating oral tablet (5 sources) Atypical Antipsychotic take 1 tablet by mouth twice daily risperiDONE (RisperDAL M-TAB) 0.5 MG disintegrating tablet Take 0.5 mg by mouth 2 times daily. Active Completed/Discontinued Medications Medication Drug Class(es) Dates Sig (Normalized) Sig (Original) 50 ml sodium chloride 9 mg/ml injection (2 sources) Start: 06-11-2024 End: 06-11-2024 1,000 mL, IntraVENous, at 1,000 mL/hr, Administer over 1 Hours, Once, On Kendra 06/11/24 at 0550, For 1 dose Problems Active Problems Problem Classification Problem Date Documented Date Episodic/Chronic Alcohol-related disorders (20 sources) Alcohol abuse; Translations: [Alcohol abuse, uncomplicated] Onset: 08-07-2022 08-05-2022 Chronic Alcohol-related disorders (4 sources) Alcohol use, unspecified with intoxication, unspecified; Translations: [Acute alcoholic intoxication] 03-23-2023 Episodic Anxiety disorders (2 sources) Anxiety disorder; Translations: [Other specified anxiety disorders] Onset: 06-20-2023 Chronic Conditions associated with dizziness or vertigo (2 sources) Lightheadedness; Translations: [Dizziness and giddiness] Onset: 06-24-2023 06-20-2023 Episodic Epilepsy; convulsions (1 source) Seizure; Translations: [Unspecified convulsions] Onset: 06-20-2023 Episodic Nonspecific chest pain (8 sources) Chest pain; Translations: [Chest pain, unspecified] Onset: 06-11-2024 06-11-2024 Episodic Other nervous system disorders (1 source) Paresthesia; Translations: [Paresthesia of skin] 06-20-2023 Episodic Residual codes; unclassified (1 source) Generalized aches and pains; Translations: [Pain, unspecified] 01-28-2024 Episodic Spondylosis; intervertebral disc disorders; other back problems (2 sources) Neck pain; Translations: [Neck Pain] Onset: 06-10-2024 Episodic Substance-related disorders (8 sources) Methamphetamine abuse; Translations: [Other stimulant abuse, uncomplicated] Onset: 06-11-2024 06-11-2024 Chronic Unclassified (1 source) Alcohol use, unspecified with withdrawal, unspecified; Translations: [Alcohol use, unspecified with withdrawal, unspecified] Onset: 05-02-2023 Unclassified (1 source) Alcohol use, unspecified with withdrawal delirium; Translations: [Alcohol use, unspecified with withdrawal delirium] Onset: 03-26-2023 Unclassified (1 source) Alcohol abuse with withdrawal, unspecified; Translations: [Alcohol abuse with withdrawal, unspecified] Onset: 04-08-2023 Unclassified (2 sources) Weakness, Gen; Translations: [Weakness, Gen] Onset: 06-24-2024 Unclassified (2 sources) Alcohol Problem; Translations: [Alcohol Problem] Onset: 06-24-2024 Unclassified (2 sources) Extremity Weakness; Translations: [Extremity Weakness] Onset: 06-10-2024 Past or Other Problems Problem Classification Problem Date Documented Da te Episodic/Chronic Influenza (3 sources) Influenza due to Influenza A virus; Translations: [Influenza due to other identified influenza virus with other respiratory manifestations] Onset: 01-28-2024 01-28-2024 Episodic Other upper respiratory infections (3 sources) Upper respiratory infection; Translations: [Acute upper respiratory infection, unspecified] Onset: 01-28-2024 01-28-2024 Episodic Residual codes; unclassified (2 sources) Pain, unspecified; Translations: [Pain, unspecified] Onset: 01-28-2024 Episodic Unclassified (13 sources) Readiness finding; Translations: [Desire for detoxification] 08-05-[address] Spine Cervical w/o Contrast Result Date: June 20, 2023 Verified By: EDGAR MEADE MD CLINICAL STATEMENT: IMPRESSION: No acute abnormality of the cervical spine. I have personally reviewed the images of this examination, and agree with theresident's findings and interpretation. CT Head or Brain w/o Contrast Result Date: June 20, 2023 Verified By: EDGAR MEADE MD CLINICAL STATEMENT: IMPRESSION: No acute intracranial abnormality. I have personally reviewed the images of this examination, and agree with theresident's findings and interpretation. EKG EC06/20/23: Sinus tachycardia Electronic Signature: MICHAEL PADRON DO 06/20/2023 02:28:09 Assessment/Plan 1. Seizure due to alcohol withdrawal 2. Alcohol dependence 3. Depression with anxiety Possible seizure secondary to alcohol withdrawal. Last drink was 06/15/2023. This potential seizure was witnessed by his girlfriend. Will obtain MRI brain. Start Librium 25 mg 3 times daily. Alcohol dependence patient is currently in treatment for alcohol dependence with IOP. He is motivated to quit. Patient has a history of anxiety and depression was previously medicated. Uses alcohol due to increased stress. Patient is agreeable to connecting with a PCP and psychiatry. DVT prophylaxis: SCDs Code Status: Full code Plan of care discussed with patient. All questions answered. Patient verbalizes understanding is agreeable to plan of care. This dictation was performed using voice recognition software and may include grammatical and/or spelling errors. Problem List/Past Medical History Ongoing Alcohol dependence Depression with anxiety Historical No qualifying data Allergies No Known Medication Allergies Social History Alcohol Use: Past. Type: Beer, Wine, Liquor. Frequency: 3-5 times per week. Previous treatment: Outpatient. Has alcohol use interfered with work or home life: Yes. Do you ever drink more than intended: Yes. Has anyone been hurt or at risk by your drinking: Yes. Ready to change: Yes. Concerns about alcohol use in household: No., 06/20/2023 Substance Abuse Use: Past. Type: Prescription medications. Previous treatment: None. IV drug use; No. Has drug use interfered with your work or home life? No. Ready to change: No. Concerns about substance abuse in household: No., 06/20/2023 Tobacco Nicotine Use: 5-9 cigarettes (between 1/4 to 1/2 pack)/day in last 30 days. Type: Electronic Cigarettes (Vaping)., 06/20/2023 Family History Unknown Code Status Code Status - Ordered -- 06/20/23 5:55:00 EDT, Full Code, Constant Order Digitally Signed by ANA MARIA PEREZ on 06/20/2023 02:41 PM [facility] 06-20-2023 Evaluation + Plan note Extrac ulysses from: Title:History and Physical Author:ANA MARIA PEREZ Date:06/20/23 1. Seizure due to alcohol wi thdrawal 2. Alcohol dependence 3. Depression with anxiety Possible seizure secondary to alcohol withdrawal. Last drink was 06/15/2023. This potential seizure was witnessed by his girlfriend. Will obtain MRI brain. Start Librium 25 mg 3 times daily. Alcohol dependence patient is currently in treatment for alcohol dependence with IOP. He is motivated to quit. Patient has a history of anxiety and depression was previously medicated. Uses alcohol due to increased stress. Patient is agreeable to connecting with a PCP and psychiatry. DVT prophylaxis: SCDs Code Status: Full code Plan of care discussed with patient. All questions answered. Patient verbalizes understanding is agreeable to plan of care. This dictation was performed using voice recognition software and may include grammatical and/or spelling errors. [facility] 05-09-2024 Note ORIGINAL EXAMINATION: ONE XRAY VIEW OF THE CHEST 06/20/2023 3:05 am COMPARISON: None. HISTORY: ORDERING SYSTEM PROVIDED HISTORY: Reason for Exam: seizure FINDINGS: The heart size and mediastinal contours are normal. There is no lung infiltrate or edema. No pleural fluid or pneumothorax is present. The skeletal structures are unremarkable. IMPRESSION: No acute cardiopulmonary process. Interpreted by: Edgar Meade MD Preliminary Report By: Edgar Meade MD Electronically signed By Edgar Meade MD Dictated Date: 06/20/2023 3:12:02 AM Prelim Date: 06/20/2023 3:12:39 AM Sign Date: 06/20/2023 3:12:39 AM Ordering Provider: MICHAEL [facility]05-09-2024 Note ORIGINAL EXAMINATION: CT OF THE CERVICAL SPINE WITHOUT CONTRAST 06/20/2023 3:04 am TECHNIQUE: CT of the cervical spine was performed without the administration of intravenous contrast. Multiplanar reformatted images are provided for review. Automated exposure control, iterative reconstruction, and/or weight based adjustment of the mA/kV was utilized to reduce the radiation dose to as low as reasonably achievable. COMPARISON: None. HISTORY: ORDERING SYSTEM PROVIDED HISTORY: Reason for Exam: fall, seizure FINDINGS: BONES/ALIGNMENT: There is no acute fracture or traumatic malalignment. Straightening of the cervical lordosis most likely positional. DEGENERATIVE CHANGES: No significant degenerative changes. SOFT TISSUES: There is no prevertebral soft tissue swelling. Likely thymic hyperplasia. More than expected normal size cervical lymph nodes are most likely reactive. IMPRESSION: No acute abnormality of the cervical spine. I have personally reviewed the images of this examination, and agree with the resident's findings and interpretation. Interpreted by: Edgar Meade MD Preliminary Report By: Scott Parra Electronically signed By Edgar Meade MD Dictated Date: 06/20/2023 3:07:41 AM Prelim Date: 06/20/2023 3:11:39 AM Sign Date: 06/20/2023 3:20:14 AM Ordering Provider: [facility]05-09-2024 Note ORIGINAL EXAMINATION: CT OF THE HEAD WITHOUT CONTRAST 06/20/2023 3:02 am TECHNIQUE: CT of the head was performed without the administration of intravenous contrast. Automated exposure control, iterative reconstruction, and/or weight based adjustment of the mA/kV was utilized to reduce the radiation dose to as low as reasonably achievable. COMPARISON: None. HISTORY: ORDERING SYSTEM PROVIDED HISTORY: Reason for Exam: seizure FINDINGS: BRAIN/VENTRICLES: There is no acute intracranial hemorrhage, mass effect or midline shift. No abnormal extra-axial fluid collection. The shipman-white differentiation is maintained without evidence of an acute infarct. There is no evidence of hydrocephalus. ORBITS: The visualized portion of the orbits demonstrate no acute abnormality. SINUSES: The visualized paranasal sinuses and mastoid air cells demonstrate no acute abnormality. Mild mucosal thickening of the ethmoid air cells. SOFT TISSUES/SKULL: No acute abnormality of the visualized skull or soft tissues. IMPRESSION: No acute intracranial abnormality. I have personally reviewed the images of this examination, and agree with the resident's findings and interpretation. Interpreted by: Edgar Meade MD Preliminary Report By: Scott Parra Electronically signed By Edgar Meade MD Dictated Date: 06/20/2023 3:11:48 AM Prelim Date: 06/20/2023 3:13:11 AM Sign Date: 06/20/2023 3:18:15 AM [facility] NoteSinus tachycardia Electronic Signature: VITOMICHAEL 06/20/2023 02:28:[address] [place] [address] 05-08-2024 Discharge summary Author Carmelo Mccray [facility] June 20, 2023 12:34am Note Date/Time June 19, 2023 9:50pm [facility] Medical Records Department [address] [place] [address] Emergency Department Summary 06/19/23 MR#: [id number] Acct: [id number] Name: VAL VILLA Rep #:[id number] : 1995 27 From: Carmelo Clarke PCP: Care Physician,No Primary Status :REG ER Location: ED HPI History of Present Illness Chief Complaint: Dizziness Informant: patient Onset/Context/Timing Onset: Today Context: Sudden Onset Timing: Continuous Quality: Tightness Location: Neck Worsened by: Nothing Relieved by: Nothing Narrative Narrative: Patient presents with dizziness and lightheadedness that began today. Patient states it has been constant. Patient states she feels some numbness in his leftarm and some tightness in his neck. Patient states he also had a weird taste in his mouth earlier today. Patient denies any palpitations. Patient admits tosome left upper chest pain. Patient denies any nausea or vomiting. Patient does admit to a mild headache. Patient states nothing makes his symptoms betterand nothing makes them worse. [facility] Medical History Alcohol abuse Alcohol dependence Anxiety and depression Asthma Migraines Polysubstance abuse Tobacco abuse Home Medications NK 08/05/22 [History Last Taken Unknown] Allergy/AdvReac Type Severity Reaction Status Date / Time No Known Allergies Allergy Verified 06/19/23 21:01 Family History (Updated 05/01/23 @ 05:[address] Jacquie Beckwith MD) Uncle Alcohol abuse Paternal uncles. Grandfather Alcohol abuse Mother No problems noted. Father No problems noted. Surgical History No history of previous surgery Social History household members: none Smoking Status: Current every day smoker tobacco type: cigarettes and e- cigarettes alcohol intake: current details: 10 24 ounce beers daily and hard liquor shots substance use type: crack/cocaine and amphetamines ROS ROS ED Constitutional Constitutional ED: Denies chills or fever(s) Eyes Eyes: Denies blurry vision or change in vision ENT ENT ED: Denies rhinorrhea or sore throat Cardiovascular Cardiovascular: Reports chest pain; Denies palpitations Respiratory/Chest Respiratory/Chest: Denies cough or dyspnea Gastrointestinal Gastrointestinal: Denies nausea or vomiting Genitourinary Genitourinary ED: Denies dysuria or hematuria Musculoskeletal Musculoskeletal: Denies back pain or neck pain Integumentary Denies abscess or rash Neurologic Neurologic: Reports headache(s); Denies weakness Allergic/Immunologic Allergic/Immunologic ED: Denies mouth swelling or urticaria EXAM Physical Exam Const Vital Signs: 06/19/23 20:58 06/19/23 23:33 06/19/23 23:00 Temperature 96.8 F L Temperature Source Temporal Pulse Rate 97 79 Pulse Rate [Lying] 64 Pulse Rate [Sitting (for 1 minute prior to obtaining)] 71 Pulse Rate [Standing (for 1 minute prior to obtaining)] 72 Respiratory Rate 14 18 Respiratory Pattern Blood Pressure 167/87 H 151/85 H Blood Pressure [Lying] 147/88 H Blood Pressure [Sitting (for 1 minute prior to obtaining)] 143/88 H Blood Pressure [Standing (for 1 minute prior to obtaining)] 151/85 H Blood Pressure Mean 113 107 Blood Pressure Mean [Lying] 107 Blood Pressure Mean [Sitting (for 1 minute prior to obtaining)] 106 Blood Pressure Mean [Standing (for 1 minute prior to obtaining)] 107 Pulse Ox 99 100 Oxygen Delivery Method Room Air Room Air 06/19/23 23:38 Temperature Temperature Source Pulse Rate Pulse Rate [Lying] Pulse Rate [Sitting (for 1 minute prior to obtaining)] Pulse Rate [Standing (for 1 minute prior to obtaining)] Respiratory Rate Respiratory Pattern Normal Blood Pressure Blood Pressure [Lying] Blood Pressure [Sitting (for 1 minute prior to obtaining)] Blood Pressure [Standing (for 1 minute prior to obtaining)] Blood Pressure Mean Blood Pressure Mean [Lying] Blood Pressure Mean [Sitting (for 1 minute prior to obtaining)] Blood Pressure Mean [Standing (for 1 minute prior to obtaining)] Pulse Ox Oxygen Delivery Method Positive well nourished and well developed General Appearance ED: well developed and NAD HEENT Reports moist mucous membranes Neck supple and no JVD Resp normal respiratory effort and clear to auscultation bilaterally Cardio regular rate and regular rhythm GI non-tender and non-distended Palpation: soft Extremity normal to inspection General Extremety ED: Negative for edema or tenderness General Extremity: Negative for edema Neuro oriented x3, CN's II-XII intact bilaterally and no sensory deficits noted Sensorium / Orientation: alert Motor Exam: strength 5/5 throughout Psych mental status grossly normal MDM MDM MDM Narrative Medical decision making narrative: Differential diagnosis includes cardiac dysrhythmia, cardiac ischemia, electrolyte abnormality, pneumonia, pneumothorax, dehydration, and anxiety. EKGwill be obtained to assess for cardiac dysrhythmia and cardiac ischemia. Chest x-ray will be obtained to assess for pneumonia and pneumothorax. CBC will be obtained to assess for leukocytosis and anemia. Basic metabolic profile will beobtained to assess for electrolyte abnormality and renal function. High-sensitivity troponin will be obtained to assess for cardiac ischemia. COVID-19,influenza, and RSV PCR will be obtained to assess for viral infection. Orthostatic vital signs will be obtained to assess for dehydration. Lab Data Attestation: I reviewed the patient's lab results. Lab results narrative: CBC was reviewed and was within normal limits. Basic metabolic profile was reviewed and was within normal limits. High-sensitivity troponin was reviewed and was normal at 10. Labs: Laboratory Results - last 24 hr 06/19/23 23:05 WBC 8.6 RBC 4.48 L Hgb 14.8 Hct 42.9 MCV 95.8 H MCH 33.0 H MCHC 34.5 RDW Std Deviation 41.5 RDW Coeff of Jessica 12.0 Plt Count 263 MPV 9.6 Immature Gran % (Auto) 0.400 Neut % (Auto) 60.8 Lymph % (Auto) 28.9 Loíza % (Auto) 8.4 Eos % (Auto) 0.6 Baso % (Auto) 0.9 Absolute Neuts (auto) 5.2 Absolute Lymphs (auto) 2.47 Nucleated RBC % 0 Sodium 140 Potassium 3.7 Chloride 108 H Carbon Dioxide 27.0 Anion Gap 5 BUN 9 Creatinine 0.90 Estim Creat Clear Calc 145.96 Est GFR (MDRD) Af Amer 131 Est GFR (MDRD) Non-Af 108 BUN/Creatinine Ratio 10.0 Glucose 84 Calcium 8.9 Troponin I High Sens 10 Radiography Chest X-Ray - ED: 2 View, Read by ED Physician, Read by Radiologist and No AcuteDisease Diagnostic Testing: Clinical Impression(s) from Imaging Studies Chest X-Ray 06/19/23 21:48 IMPRESSION: No evidence of active intrathoracic disease. Electronically Signed: Rona Rivera MD at 0:12 EDT , PA and lateral chest x-ray was obtained. There are 2 views. On my independent interpretation, lung emmanuel are clear. There is normal cardiac silhouette. Bony thorax is normal. There is no acute process noted. Radiologist also interpreted the x-ray and agrees. EKG Initial EKG: Attestation: I personally reviewed and interpreted this EKG as follows: Interpretation: Sinus Rhythm (75) and No Acute Injury Pattern Comments: EKG was obtained. On my independent interpretation, it showed anormal sinus rhythm with a rate of 75. IL interval, QRS interval, and QTc intervals were all normal. [place] was normal. There are no acute ST or T wave changes. Treatment and Re-Evaluation :: Patient is given IV fluids. Orthostatic vital signs were obtained and were within normal limits. Patient was advised of his findings. Patient has a HEARTscore of 1. Patient was advised that this is low risk for acute cardiac event. Patient was instructed to follow-up with his primary care physician in 5 to 7 days. Patient was instructed to return if worse in any way. Patient understoodand was agreeable with the plan. All questions were answered. Discharge Plan Triage Chief Complaint: Dizziness ED Provider: Carmelo Mccray Dx/Rx/DC Orders Clinical Impression: Lightheadedness, Paresthesias Instructions: ED Dizziness, Uncertain Cause, ED Paraesthesias Prescriptions: No Action NK Primary Care Provider: Care Physician,No Primary Referrals: Padma Pinto [Non-Staff] - 5-7 Days Care Physician,No Primary [Primary Care Provider] - Disposition Disposition: Home, Self Care What to do if you have Problems For any increased pain, shortness of breath, bleeding, nausea or vomiting, chestpain, or any unexpected problems, contact your Primary Care Provider. Call [facility] ([phone]) or report to the closest Emergency Room. Call 911 if necessary. 06/20/23 003 <Electronically signed by Carmelo Mccray DO> Cosigner Signature (if applicable): CC: No Primary Care Physician ~ Signed [facility] Work Phone: [phone] 607-837903-20-2024 [facility] Medical Records Department [address] [place] [address] Discharge Summary 05/01/23 1800 MR#: [id number] Acct: [id number] Name: VAL VILLA Rep #: [id number] : 1995 27 From: Carmelo Albert DO PCP: Care Physician,No Primary Status:DIS DON Location: ICU [id number] Providers Date of Admission: 05/01/23 Primary Care Physician: No Primary Care Phys Reason For Visit: ETOH DETOX/WITHDRAWL Diagnosis Discharge Diagnosis (1) Alcohol withdrawal: Status: Acute Code(s): F10.939 - Alcohol use, unspecified with withdrawal, unspecified Plan Acute EtOH Withdrawal: * Taper course of Phenobarbital, as needed gabapentin, Catapres, Bentyl, Vistaril, IV fluids, IV antiemetics, Tylenol as needed for pain. * Addiction med for outpt resources Chronic conditions: * Anxiety and depression: Likely in large part contributing to his substance abuse, not currently on any chronic meds. complicating recovery and sobriety * Polysubstance abuse chart reported: Patient with previous reported history of crack/cocaine, amphetamine usage, currently denying, urine drug screen pending.Complicates long-term recovery. * Chronic migraines: Not on any chronic regimen, will have as needed ibuprofen, plan to as noted hydrate upon admission. * Chronic asthma: Encouraged tobacco cessation, PRN albuterol. * Tobacco Abuse: Encouraged cessation, inpatient consultation per RT, NR if desired. DVT prophylaxis: Low risk for type admission. Medications at Discharge Home Medications NK 08/05/22 Hospital Course Operations None Procedures None Summary of Care Provided Hospital Course: Patient was here for alcohol withdrawal. Patient drinks about 24 pack of beer per day. He started on phenobarbital. Later in the day on the , he left AGAINST MEDICAL ADVICE. Patient was brought to retirement by the server manager. Weight / BMI Weight Weight: 91.4 kg Body Mass Index (BMI) 28.0 ABG / Lab / Microbiology Data 05/01/23 05:41 05/01/23 05:41 D/C Instructions Discharge Diet: No restrictions Meaningful Use Info Meaningful Use Diagnoses (Choose all that apply): None applicable Discharge Plan Admission Admit Date/Time: 05/01/23 05:32 Primary Reason for Your Visit: Alcohol withdrawal Attending Provider: Carmelo Albert Primary Care Provider: Care Physician,No Primary Consulting Providers: Jacquie Beckwith Discharge Orders/Prescriptions Prescriptions: No Action NK Referrals / Follow Up: Care Physician,No Primary [Primary Care Provider] - Disposition Disposition (needs filled in before D/C Order can be placed): Against Medical Advice 05/02/23 0810 Cosigner Signature (if applicable): CC: Dr. Carmelo Albert DO; No [facility] Progress note Author Carmelo Albert [facility] May 01, 2023 9:43am Note Date/Time May 01, 2023 7:0 1am [facility] Medical Records Department [address] [place] [id number] Progress Note - Hospitalist 05/01/23 0658 MR#: [id number] Acct: [id number] Name: VAL VILLA Rep #:[id number] : 1995 27 From: Carmelo Albert DO PCP: Care Physician,No Primary Status :ADM IN Location: ICU CVICU20 3-1 Reason for Visit Reason for Visit: Diagnoses Alcohol use, unspecified with withdrawal, unspecified (05/01/23) Subjective Subjective Feeling rough. Objective Data Objective Data Vital Signs: Vital Signs Temp Pulse Resp BP Pulse Ox O2 Del Method 36.2 C L 96 14 124/84 H 99 Room Air 05/01/23 05:52 05/01/23 05:52 05/01/23 05:52 05/01/23 05:52 05/01/23 05:52 05/01/23 05:05 Oxygen Delivery Method Room Air Lab / Micro Data 05/01/23 05:41 05/01/23 05:41 Labs: Laboratory Results - last 24 hr 05/01/23 05:30: Urine Opiates Screen NEGATIVE, Urine Methadone Screen NEGATIVE, Ur Barbiturates Screen NEGATIVE, Ur Phencyclidine Scrn NEGATIVE, Ur AmphetaminesScreen NEGATIVE, MDMA (Ecstasy) Screen NEGATIVE, U Benzodiazepines Scrn NEGATIVE, Urine Cocaine Screen NEGATIVE, U Cannabinoids Screen NEGATIVE, Ur DrugScreen Comment 05/01/23 05:41: WBC 9.9, RBC 5.50, Hgb 18.1 H*, Hct 51.3, MCV 93.3, MCH 32.9 H, MCHC 35.3, RDW Std Deviation 44.0 H, RDW Coeff of Jessica 12.8, Plt Count 371, MPV 9.1, Immature Gran % (Auto) 0.500, Neut % (Auto) 49.6, Lymph % (Auto) 41.9 H, Loíza % (Auto) 6.5, Eos % (Auto) 0.3, Baso % (Auto) 1.2 H, Absolute Neuts (auto) 4.9, Absolute Lymphs (auto) 4.15, Nucleated RBC % 0, Differential Comment SCANNED, Diff Path Review June, PT 13.5, INR 1.0, Sodium 143, Potassium 3.8,Chloride 107, Carbon Dioxide 26.0, Anion Gap 10, BUN 6 L, Creatinine 0.94, Est GFR (MDRD) Af Amer 125, Est GFR (MDRD) Non-Af 103, BUN/Creatinine Ratio 6.4 L, Glucose 130 H, Calcium 8.6, Phosphorus 3.4, Magnesium 2.1, Total Bilirubin 0.60,AST 31, ALT 49, Alkaline Phosphatase 92, Total Protein 7.8, Albumin 4.1, Globulin 3.7, Albumin/Globulin Ratio 1.1, Ethyl Alcohol 208.0 Physical Exam Const alert and no apparent distress Constitutional Narrative: slightly diaphoretic. non-toxic. pleasant. HEENT head/scalp atraumatic Resp normal respiratory effort, no retractions, no use of accessory muscles and clearto auscultation bilaterally Cardio regular rate, regular rhythm, S1 normal heart sound and S2 normal heart sound GI GI Narrative: TTP RUQ. Neuro Sensorium / Orientation: awake and alert Assessment & Plan Assessment/Plan (1) Alcohol withdrawal: PLAN: Plan Acute EtOH Withdrawal: * Taper course of Phenobarbital, as needed gabapentin, Catapres, Bentyl, Vistaril, IV fluids, IV antiemetics, Tylenol as needed for pain. * Addiction med for outpt resources Chronic conditions: * Anxiety and depression: Likely in large part contributing to his substance abuse, not currently on any chronic meds. complicating recovery and sobriety * Polysubstance abuse chart reported: Patient with previous reported history of crack/cocaine, amphetamine usage, currently denying, urine drug screen pending.Complicates long-term recovery. * Chronic migraines: Not on any chronic regimen, will have as needed ibuprofen, plan to as noted hydrate upon admission. * Chronic asthma: Encouraged tobacco cessation, PRN albuterol. * Tobacco Abuse: Encouraged cessation, inpatient consultation per RT, NR if desired. DVT prophylaxis: Low risk for type admission. Charges/Coding Visit Charges Inpatient E&M: 36561 Subs Hosp L2 05/01/23 0999 <Electronically signed by Carmelo Albert DO> Cosigner Signature (if applicable): CC: ~ Signed [facility] Work Phone: 1(980) 835-123603-20-2024 Discharge summary Author Marcio Cardona [facility] May 01, 2023 6:26am Note Date/Time May 01, 2023 5:2 8am [facility] Medical Records Department [address] [place] [id number] Emergency Department Summary 05/01/23 MR#: [id number] Acct: [id number] Name: EDDA VILLAEMIAKylah HANSEN Rep #:[id number] : 1995 27 From: Marcio Cardona MD PCP: Care Physician,No Primary Status :ADM IN Location: ICU CVICU20 3-1 HPI History of Present Illness Chief Complaint: ETOH Intox Informant: patient Narrative Narrative: Patient presents requesting detox from alcohol. Does not use any other substances. Averages quite a bit of alcohol daily, around 24 beers in addition to low proof liquor that varies in amount. He states his last drink was just prior to getting here, and he still feels shaky like he has not had enough. He states he is here under court order, but he does want to stop drinking and get his life straightened out. He admits that he left AMA 24 hours into his detox the last time he was here, and he does not intend to do that again. [facility] Medical History (Updated 05/01/23 @ 05:[address] Jacquie Beckwith MD) Alcohol abuse Anxiety and depression Asthma Migraines Polysubstance abuse Tobacco abuse Home Medications NK 08/05/22 [History Last Taken Unknown] Allergy/AdvReac Type Severity Reaction Status Date / Time No Known Allergies Allergy Verified 03/22/23 22:05 Family History (Updated 05/01/23 @ 05:[address] Jacquie Beckwith MD) Uncle Alcohol abuse Paternal uncles. Grandfather Alcohol abuse Mother No problems noted. Father No problems noted. Surgical History (Updated 05/01/23 @ 05:[address] Jacquie Beckwith MD) No history of previous surgery Social History (Updated 05/01/23 @ 05:[address] Jacquie Beckwith MD) household members: none Smoking Status: Current every day smoker tobacco type: cigarettes Smoking packsper day: 0.5 Smoking cigarettes per day: 10.0 alcohol intake: current details: 10 24 ounce beers daily and hard liquor shots substance use type: crack/cocaine and amphetamines ROS ROS ED Constitutional Constitutional ED: Reports other Details: Feeling shaky ; Denies chills or fever(s) Eyes Eyes: Denies change in vision or diplopia ENT ENT ED: Denies rhinorrhea or sore throat Cardiovascular Cardiovascular: Denies chest pain or palpitations Respiratory/Chest Respiratory/Chest: Denies cough or dyspnea Gastrointestinal Gastrointestinal: Denies abdominal pain, diarrhea, nausea or vomiting Genitourinary Genitourinary ED: Denies dysuria or hematuria Musculoskeletal Musculoskeletal: Denies back pain or neck pain Integumentary Denies abscess or rash Neurologic Neurologic: Denies headache(s), paresthesias or weakness Psychiatric Psychiatric: Reports anxiety; Denies suicidal thoughts EXAM Physical Exam Const Vital Signs: 05/01/23 05:05 Temperature 96.8 F L Temperature Source Temporal Pulse Rate 93 Respiratory Rate 18 Blood Pressure 120/76 Blood Pressure Mean 90 Pulse Ox 96 Oxygen Delivery Method Room Air Positive well nourished and well developed General Appearance ED: well developed and NAD HEENT Reports moist mucous membranes normocephalic and atraumatic Eyes PERRL and EOMs intact bilaterally Neck full ROM and supple Resp normal respiratory effort and clear to auscultation bilaterally Cardio regular rate, regular rhythm and no murmurs GI non-tender and non-distended Auscultation: normoactive bowel sounds Palpation: soft Back/Spine no CVA tenderness General Back: other FROM Extremity normal to inspection General Extremety ED: Negative for edema, pulses abnormal or tenderness General Extremity: Negative for edema or pulses abnormal Neuro oriented x3, CN's II-XII intact bilaterally and no sensory deficits noted Sensorium / Orientation: awake and alert Motor Exam: strength 5/5 throughout Skin no rashes or lesions noted and no wounds MDM MDM MDM Narrative Medical decision making narrative: Normal vital signs, no history of seizures recently or delirium tremens at this time. Having some mild withdrawal symptoms, will start him on phenobarbital andadmit him to the medical floor. Lab Data Attestation: I reviewed the patient's lab results. Labs: Laboratory Results - last 24 hr 05/01/23 05:30 Urine Opiates Screen NEGATIVE Urine Methadone Screen NEGATIVE Ur Barbiturates Screen NEGATIVE Ur Phencyclidine Scrn NEGATIVE Ur Amphetamines Screen NEGATIVE MDMA (Ecstasy) Screen NEGATIVE U Benzodiazepines Scrn NEGATIVE Urine Cocaine Screen NEGATIVE U Cannabinoids Screen NEGATIVE Ur Drug Screen Comment Management Discussion w/another healthcare provider: Hospitalist Discharge Plan Triage Chief Complaint: ETOH Intox ED Provider: Marcio Cardona Dx/Rx/DC Orders Clinical Impression: Alcohol dependence Primary Care Provider: Care Physician,No Primary What to do if you have Problems For any increased pain, shortness of breath, bleeding, nausea or vomiting, chestpain, or any unexpected problems, contact your Primary Care Provider. Call [facility] ([phone]) or report to the closest Emergency Room. Call 911 if necessary. 05/01/23625 <Electronically signed by Marcio Cardona MD> Cosigner Signature (if applicable): CC: No Primary Care Physician ~ Signed [facility] Work Phone: 1(272) 370-684103-20-2024 History and physical note Author Jacquie Beckwith [facility] May 01, 2023 5:50am Note Date/Time May 01, 2023 5:3 3am [facility] Medical Records Department [address] [place] [address] H&P Exam - Hospitalist 05/01/23 0532 MR#: [id number] Acct: [id number] Name: VAL VILLA Rep #:[id number] : 1995 27 From: Jacquie Beckwith MD PCP: Care Physician,No Primary Status :ADM IN Location: ICU CVICU20 3-1 HPI - General General Date of Admission: 05/01/23 Date of Service: 05/01/23 Chief Complaint: EtOH detoxification request, withdrawal. HPI Narrative The patient is a 27 y/o M w/ PMHx: Chart reported Hx Polysubstance abuse (crack/cocaine and amphetamines) although patient currently denying, Tobacco use, EtOH abuse (Lower proof liquor, wine, 24 beers daily/mix), Anxiety and Depression, Asthma, Chronic migraines who presents to the [facility] ED on 05/01/23 withlast EtOH intake reported prior to ED arrival but less than his normal with complaint of mild tremors and tactile disturbances otherwise no severe withdrawal symptoms yet reporting that he is required to have withdrawal treatment and that it is court appointed. Workup in the ED included T96.8, heart rate 93, BP 120/76, respiratory rate 18, 96% on room air, pending CBC, CMP, urine drug screen, ethyl alcohol level upon evaluation of patient. In the ED given patient mild withdrawal symptoms patient administered phenobarbital 97.2 mg p.o. x 1. [facility] Medical History (Updated 05/01/23 @ 05:[address] Jacquie Beckwith MD) Alcohol abuse Anxiety and depression Asthma Migraines Polysubstance abuse Tobacco abuse Home Medications NK 08/05/22 [History Last Taken Unknown] Allergy/AdvReac Type Severity Reaction Status Date / Time No Known Allergies Allergy Verified 03/22/23 22:05 Family History (Updated 05/01/23 @ 05:[address] Jacquie Beckwith MD) Uncle Alcohol abuse Paternal uncles. Grandfather Alcohol abuse Mother No problems noted. Father No problems noted. Surgical History (Updated 05/01/23 @ 05:[address] Jacquie Beckwith MD) No history of previous surgery Social History (Updated 05/01/23 @ 05:[address] Jacquie Beckwith MD) household members: none Smoking Status: Current every day smoker tobacco type: cigarettes Smoking packsper day: 0.5 Smoking cigarettes per day: 10.0 alcohol intake: current details: 10 24 ounce beers daily and hard liquor shots substance use type: crack/cocaine and amphetamines ROS ROS Narrative Admission Review of Systems: CONSTITUTIONAL: No weight loss, fever, chills, + weakness or fatigue. HEENT: + Chronic migraines. Eyes: No visual loss, blurred vision, double vision or yellow sclerae. Ears, Nose, Throat: No hearing loss, sneezing, congestion, runny nose or sore throat. SKIN: No rash or itching, lesions, wounds. CARDIOVASCULAR: No chest pain, chest pressure or chest discomfort, palpitations,edema, orthopnea, syncopal events. RESPIRATORY: No shortness of breath, cough or sputum, wheezing, hemoptysis. GASTROINTESTINAL: + Chronic diarrhea. No anorexia, nausea, vomiting, abdominal pain, melena, BRBPR. GENITOURINARY: No dysuria, frequency, urgency or retention. NEUROLOGICAL: + Mild tremors and reported tactile disturbances, chronic migraines. No dizziness, syncope, paralysis, ataxia, numbness or tingling in the extremities, focal weakness, change in bowel or bladder control, seizure. MUSCULOSKELETAL: No muscle, back pain, joint pain or stiffness. HEMATOLOGIC: No anemia, bleeding or bruising. LYMPHATICS: No enlarged nodes. No history of splenectomy. PSYCHIATRIC: + History of anxiety and depression. ENDOCRINOLOGIC: No reports of sweating, cold or heat intolerance. No polyuria orpolydipsia. ALLERGIES: No history of asthma, hives, eczema or rhinitis. Vital Signs Vital Signs Vital Signs: 05/01/23 05:05 Temperature 96.8 F L Temperature Source Temporal Pulse Rate 93 Respiratory Rate 18 Blood Pressure 120/76 Blood Pressure Mean 90 Pulse Ox 96 Oxygen Delivery Method Room Air Physical Exam Narrative Physical Examination: General: Awake, alert, oriented x 3 and cooperative, seated upright in the ED bed, mildly restless, reporting mild tremors and tactile disturbances. Skin: Normal color, normal turgor, no icterus, no cyanosis. HEENT: AT/NC, EOMI, PERRLA, MMM, no carotid bruits or JVD noted. Lungs: CTA bilaterally, moderate effort, mild decrease BL bases, no rales, ronchi or wheezing. Heart: Mildly tachycardic with regular rhythm; no gallop, rub audible. Abdomen: Soft, NTTP, ND, normal BS, no appreciated HSM. Extremities: No cyanosis, clubbing, or edema. Neurological: Patient awake, alert, oriented as noted, cognitive function intact; pupils equally reactive to light and accommodation, cranial nerves II-XII grossly normal, moving all 4 extremities, no focal deficits, strength preserved, mildly restless, very mild tremors noted, subjective tactile disturbances reported per patient. Psychiatric: Affect appears fatigued, mildly restless, no acute evidence of depressive or anxiety feeling but does have underlying history s. Assessment & Plan Assessment/Plan (1) Alcohol withdrawal: PLAN: Plan The patient is a 27 y/o M w/ PMHx: Chart reported Hx Polysubstance abuse (crack/cocaine and amphetamines) although patient currently denying, Tobacco use, EtOH abuse (Lower proof liquor, wine, 24 beers daily/mix), Anxiety and Depression, Asthma, Chronic migraines who presents to the [facility] ED on 05/01/23 withlast EtOH intake reported prior to ED arrival but less than his normal with complaint of mild tremors and tactile disturbances otherwise no severe withdrawal symptoms. #1. Acute EtOH Withdrawal: Will admit to MS, routine labs obtained in the ED upon presentation and pending upon evaluation of patient. Given interest in sobriety, will initiate and continue on protocol with taper course of Phenobarbital, as needed gabapentin, Catapres, Bentyl, Vistaril, IV fluids, IV antiemetics, Tylenol as needed for pain. Will consult Case management for assistance for transition to next level of rehabilitation care. Mag, phos pending. Maintain on CIWA protocol concurrently. #2. Anxiety and depression: Likely in large part contributing to his substance abuse, not currently on any chronic medication, will encourage follow-up for counseling, case management/180 consulted. #3. Polysubstance abuse chart reported: Patient with previous reported history of crack/cocaine, amphetamine usage, currently denying, urine drug screen pending. #4. Chronic migraines: Not on any chronic regimen, will have as needed ibuprofen, plan to as noted hydrate upon admission. #5. Chronic asthma: Encouraged tobacco cessation, PRN albuterol. #6. Tobacco Abuse: Encouraged cessation, inpatient consultation per RT, NR if desired. #7. DVT prophylaxis: Low risk for type admission. Charges/Coding Visit Charges Inpatient E&M: 46289 Init Hosp L2 05/01/23 0550 <Electronically signed by Jacquie Beckwith MD> Cosigner Signature (if applicable): CC: Dr. Jacquie Beckwith MD; No Primary Care Physician~ Signed [facility] Work Phone: 1(542) 824-144502-10-2024 [facility] Medical Records Department [address] [place] [address] Discharge Summary 03/23/23 1320 MR#: [id number] Acct: [id number] Name: VAL VILLA Rep #: [id number] : 1995 27 From: Jacquie Beckwith MD PCP: Care Physician,No Primary Status:DIS IN Location: [facility] [id number] Providers Date of Admission: 03/23/23 Date of Discharge: 03/23/23 Primary Care Physician: No Primary Care Phys Reason For Visit: ALCOHOL WITHDRAWL Diagnosis Discharge Diagnosis (1) Desire for detoxification: Status: Acute Plan: DISCHARGE DIAGNOSES: #1. Acute EtOH Abuse with Acute Withdrawal, left AMA same day of admission #2. Polysubstance abuse w/ History of cocaine and methamphetamine usage, UDS with no agents #3. Chronic asthma #4. Tobacco Abuse #5. Anxiety and depression Medications at Discharge Home Medications NK 08/05/22 Hospital Course Operations None Procedures None Summary of Care Provided Minutes Spent on Discharge: 35 Hospital Course: The patient is a 27 y/o M w/ PMHx: Asthma, Anxiety and Depression, Chronic migraines, Tobacco use, Polysubstance abuse, EtOH abuse who presented to the [facility] ED on 03/23/23 with history of alcohol withdrawal normally drinking 24, 12 ounce beers daily previously 2 years prior to that had been on hard liquor with vodka but stopped that with decreased of his alcohol intake with increased lethargy, fatigue with request for alcohol withdrawal treatment. Workup in the ED included CBC with WC 9.1, he 116.8, platelet 367 without marked shift, unremarkable coags, CMP with glucose 117 otherwise not marked appearing, UDS negative, ethyl alcohol 212. Admitted to MS, admitted to MS, initiated and continued on protocol with taper course of Phenobarbital, as needed gabapentin, Catapres, Bentyl, Vistaril, IV fluids, IV antiemetics, Tylenol as needed for pain. Case management and 180 consulted. Mag, phos levels obtained and were normal. Maintained on CIWA protocol concurrently. 03/23/2023 unfortunately patient decision to leave AGAINST MEDICAL ADVICE citing certain family needs at this time. He stateed he will use 180 and use his sponsor. Weight / BMI Weight Weight: 198 lb Body Mass Index (BMI) 27.6 ABG / Lab / Microbiology Data 03/22/23 22:50 03/22/23 22:50 Laboratory: Laboratory Results - last 24 hr 03/22/23 22:35: Urine Opiates Screen NEGATIVE, Urine Methadone Screen NEGATIVE, Ur Barbiturates Screen NEGATIVE, Ur Phencyclidine Scrn NEGATIVE, Ur Amphetamines Screen NEGATIVE, MDMA (Ecstasy) Screen NEGATIVE, U Benzodiazepines Scrn NEGATIVE, Urine Cocaine Screen NEGATIVE, U Cannabinoids Screen NEGATIVE, Ur Drug Screen Comment 03/22/23 22:50: WBC 9.1, RBC 5.28, Hgb 16.8 H, Hct 46.8, MCV 88.6, MCH 31.8, MCHC 35.9, RDW Std Deviation 40.2, RDW Coeff of Jessica 12.4, Plt Count 367, MPV 9.2, Immature Gran % (Auto) 0.300, Neut % (Auto) 58.3, Lymph % (Auto) 34.2, Loíza % (Auto) 6.3, Eos % (Auto) 0.1, Baso % (Auto) 0.8, Absolute Neuts (auto) 5.3, Absolute Lymphs (auto) 3.11, Nucleated RBC % 0, Sodium 140, Potassium 4.0, Chloride 108 H, Carbon Dioxide 25.0, Anion Gap 7, BUN 7, Creatinine 0.86, Estim Creat Clear Calc 138.63, Est GFR (MDRD) Af Amer 137, Est GFR (MDRD) Non-Af 113, BUN/Creatinine Ratio 8.1 L, Glucose 117 H, Calcium 9.1, Total Bilirubin 0.70, GGT 34, AST 18, ALT 27, Alkaline Phosphatase 105, Total Protein 8.1, Albumin 4.4, Globulin 3.7, Albumin/Globulin Ratio 1.2, Ethyl Alcohol 212.0 03/23/23 01:30: PT 12.2, INR 0.9 03/23/23 07:32: Phosphorus 2.9, Magnesium 2.0 Meaningful Use Info Meaningful Use Diagnoses (Choose all that apply): None applicable Discharge Plan Admission Admit Date/Time: 03/23/23 00:15 Primary Reason for Your Visit: EtOH abuse, Detoxification treatment Attending Provider: Jacquie Beckwith Primary Care Provider: Care Physician,No Primary Consulting Providers: Stan Thomas Instructions Patient Instructions: Alcohol Addiction, Addiction: Your Treatment Options Discharge Orders/Prescriptions Prescriptions: No Action NK Referrals / Follow Up: Care Physician,No Primary [Primary Care Provider] - (Please establish with local primary care and obtain first open visit.) Disposition Disposition (needs filled in before D/C Order can be placed): Against Medical Advice Charges/Coding Visit Charges Inpatient E M: 39551 Disch Hosp >30min 03/23/23 1321 Cosigner Signature (if applicable): CC: Dr. Jacquie Beckwith MD; No Primary [facility] Physician [facility] History and physical note Author Stanreno Thomas [facility] March 23, 2023 12:48am Note Date/Time March 23, 2023 12:18am [facility] Medical Records Department [address] [place] [address] H&P Exam - Hospitalist 03/23/23 0017 MR#: [id number] Acct: [id number] Name: VAL VILLA Rep #:[id number] : 1995 27 From: Stan Bullock PCP: Care Physician,No Primary Status :ADM IN Location: [facility] [id number] HPI - General General Date of Admission: 03/23/23 Date of Service: 03/23/23 Chief Complaint: Alcohol withdrawal symptoms. Feeling restless, drowsy and lethargic HPI Narrative VAL VILLA, is a 27 M with history of chronic alcohol use mainly beer came to ED for help as he is feeling restless lethargic and drowsy. Patient states he drinks about 24, 12 ounces Of Beer per Day Budweiser or Similar. He was drinking hard liquor vodka or others about 2 years ago but he stopped that. Smokes cigarettes 1 pack/day. Denies prior history of seizure or DT. He was last admitted in July 2022 for alcohol withdrawal symptoms. No fever or chills. Denies any serious complications of chronic alcohol drinking including hematemesis melena or alcoholic liver disease [facility] Medical History Alcohol abuse Anxiety Asthma Depression Migraines No acute medical problems Polysubstance abuse Smoker Substance abuse Tobacco abuse Home Medications NK 08/05/22 [History Last Taken Unknown] Allergy/AdvReac Type Severity Reaction Status Date / Time No Known Allergies Allergy Verified 03/22/23 22:05 Social History Smoking Status: Current every day smoker tobacco type: cigarettes alcohol intake: current details: 10 24 ounce beers daily and hard liquor shots substance use type: crack/cocaine and amphetamines ROS ROS Narrative Constitutional: Mild drowsy feeling slow and lethargic. No fever. HEENT: Reports systems reviewed and no addt'l complaints, except as documented Respiratory/Chest: No acute shortness of breath or respiratory distress or wheezing. CVS: No chest pain or pressure or tightness Gastrointestinal: Denies coffee ground emesis, hematemesis or vomiting Genitourinary: Denies burning urination or new urinary tract symptoms Musculoskeletal: Denies acute joint pain or limited range of motion. No acute injury Neurologic: Denies seizure-like symptoms. Psychiatric: Chronic alcohol use habit/disorder skin: No ulcer. No rash Endocrinology: Reports systems reviewed and no addt'l complaints, except as documented Hematologic/Lymphatic: Reports systems reviewed and no addt'l complaints, exceptas documented Rest 14 ROS are negative except as mentioned in HPI Vital Signs Vital Signs Vital Signs: 03/22/23 22:04 Temperature 97.5 F L Temperature Source Temporal Pulse Rate 108 H Respiratory Rate 18 Blood Pressure 135/86 H Blood Pressure Mean 102 Pulse Ox 96 Oxygen Delivery Method Room Air Weight Weight: 198 lb Body Mass Index (BMI) 27.6 Physical Exam Narrative General: Awake but mildly lethargic. Oriented x3, Cooperative HEENT: Atraumatic, PERRLA, EOMI, Normocephalic Oral: No Gingival or Mucosal Lesions/ Ulcerations Neck: Supple, No JVD, Negative Carotid Bruits Chest wall/Lungs: Air entry diminished in bilateral lung bases. No crepitation/rhonchi Cardiovascular: Regular rate, Regular Rhythm, Normal S1, Normal S2, No M/G/R Abdomen: Bowel Sounds Present, Soft, Non Tender, Non-Distended. No palpable mass. : No dysuria. No renal angle tenderness. No suprapubic tenderness. Extremities: No edema, Capillary Refill Less than 3 Seconds Skin: No rashes, No breakdown Musculoskeletal: No Tenderness to Palpation of Joints or Extremities Neurological: Cranial nerves II-XII grossly intact, DTR 2+/4. No acute focal neurological deficit. Psych/Mental Status: Flat affect. Restless and mild anxious. Results Lab / Micro Data 03/22/23 22:50 03/22/23 22:50 Labs: Laboratory Results - last 24 hr 03/22/23 22:35: Urine Opiates Screen NEGATIVE, Urine Methadone Screen NEGATIVE, Ur Barbiturates Screen NEGATIVE, Ur Phencyclidine Scrn NEGATIVE, Ur AmphetaminesScreen NEGATIVE, MDMA (Ecstasy) Screen NEGATIVE, U Benzodiazepines Scrn NEGATIVE, Urine Cocaine Screen NEGATIVE, U Cannabinoids Screen NEGATIVE, Ur Drug Screen Comment 03/22/23 22:50: WBC 9.1, RBC 5.28, Hgb 16.8 H, Hct 46.8, MCV 88.6, MCH 31.8, MCHC 35.9, RDW Std Deviation 40.2, RDW Coeff of Jessica 12.4, Plt Count 367, MPV 9.2, Immature Gran % (Auto) 0.300, Neut % (Auto) 58.3, Lymph % (Auto) 34.2, Loíza% (Auto) 6.3, Eos % (Auto) 0.1, Baso % (Auto) 0.8, Absolute Neuts (auto) 5.3, Absolute Lymphs (auto) 3.11, Nucleated RBC % 0, Sodium 140, Potassium 4.0, Chloride 108 H, Carbon Dioxide 25.0, Anion Gap 7, BUN 7, Creatinine 0.86, Estim Creat Clear Calc 138.63, Est GFR (MDRD) Af Amer 137, Est GFR (MDRD) Non-Af 113, BUN/Creatinine Ratio 8.1 L, Glucose 117 H, Calcium 9.1, Total Bilirubin 0.70, AST 18, ALT 27, Alkaline Phosphatase 105, Total Protein 8.1, Albumin 4.4, Globulin 3.7, Albumin/Globulin Ratio 1.2, Ethyl Alcohol 212.0 Assessment & Plan Assessment/Plan (1) Acute hyperactive alcohol withdrawal delirium: PLAN: Plan This is a 27-year-old gentleman being admitted for acute alcohol withdrawal symptoms. 1. Acute alcohol withdrawal syndrome with history of chronic alcohol use disorder, with dependence and tolerance: Patient is being admitted on Med[facility]urg [facility] Patient on phenobarbital based order set along with other adjunctive medications gabapentin, Bentyl, Vistaril, clonidine, Klonopin as needed for alcohol withdrawal symptom control. Patient is on thiamine and folate acid. Twelve-lead EKG shows sinus tachycardiaat 108 bpm. Liver chemistry normal limit. GGT pending. Serum alcohol was highat 212. CIWA monitor. poultry farm manager consulted.. 2. Chronic nicotine use/cigarette smoking: Patient smokes since pack per day since age of 14. Nicotine patch ordered. 3. DVT prophylaxis: Low risk. No prophylaxis indicated. Early ambulation encouraged Full code verified. Patient does not have living will or advanced directive. Laboratory Results 03/22/23 22:35: Urine Opiates Screen NEGATIVE, Urine Methadone Screen NEGATIVE, Ur Barbiturates Screen NEGATIVE, Ur Phencyclidine Scrn NEGATIVE, Ur AmphetaminesScreen NEGATIVE, MDMA (Ecstasy) Screen NEGATIVE, U Benzodiazepines Scrn NEGATIVE, Urine Cocaine Screen NEGATIVE, U Cannabinoids Screen NEGATIVE, Ur DrugScreen Comment 03/22/23 22:50: WBC 9.1, RBC 5.28, Hgb 16.8 H, Hct 46.8, MCV 88.6, MCH 31.8, MCHC 35.9, RDW Std Deviation 40.2, RDW Coeff of Jessica 12.4, Plt Count 367, MPV 9.2, Immature Gran % (Auto) 0.300, Neut % (Auto) 58.3, Lymph % (Auto) 34.2, Loíza% (Auto) 6.3, Eos % (Auto) 0.1, Baso % (Auto) 0.8, Absolute Neuts (auto) 5.3, Absolute Lymphs (auto) 3.11, Nucleated RBC % 0, Sodium 140, Potassium 4.0, Chloride 108 H, Carbon Dioxide 25.0, Anion Gap 7, BUN 7, Creatinine 0.86, Estim Creat Clear Calc 138.63, Est GFR (MDRD) Af Amer 137, Est GFR (MDRD) Non-Af 113, BUN/Creatinine Ratio 8.1 L, Glucose 117 H, Calcium 9.1, Total Bilirubin 0.70, GGT Pending, AST 18, ALT 27, Alkaline Phosphatase 105, Total Protein 8.1, Albumin 4.4, Globulin 3.7, Albumin/Globulin Ratio 1.2, Ethyl Alcohol 212.0 Charges/Coding Visit Charges Inpatient E&M: 14583 Init Hosp L3 03/23/238 <Electronically signed by Stan Thomas MD> Cosigner Signature (if applicable): CC: Dr. Stan Thomas MD; No Primary Care Physician~ Signed [facility] Work Phone: [phone] 174-149502-10-2024 Discharge summary Author Daquan Reid [facility] March 23, 2023 12:42am Note Date/Time March 22, 2023 1 0:17pm [facility] Medical Records Department [address] [place] [address] Emergency Department Summary 03/22/23 MR#: [id number] Acct: [id number] Name: VAL VILLA Rep #:[id number] : 1995 27 From: Daquan Reid MD PCP: Care Physician,No Primary Status :ADM IN Location: [place] [address] Daquan Reid MD on 03/23/23 at 0042 EKG was obtained and interpreted by myself independently as sinus tachycardia at108 bpm without ectopy or acute ST changes. No STEMI. 03/23/23 004<Electronically signed by Daquan Reid MD> Cosigner Signature (if applicable): cc: No Primary Care Physician ~* Signed HPI History of Present Illness Chief Complaint: Substance Abuse Narrative Narrative: 27-year-old male past medical history of previous detox, presents for detox fromalcohol. He states he used to drink a lot more beer, but has been clean and sober for 7 months, but then fell off the wagon. He now drinks at least 6 tall boys daily. He is a smoker but denies other drug use. He last went through detox/rehab approximately a year ago. He states that although his last drink was probably 2 hours ago, he is starting to feel the shakes. He states that he completed detox last year, then [facility] Medical History Alcohol abuse Anxiety Asthma Depression Migraines No acute medical problems Polysubstance abuse Smoker Substance abuse Tobacco abuse Home Medications NK 08/05/22 [History Last Taken Unknown] Allergy/AdvReac Type Severity Reaction Status Date / Time No Known Allergies Allergy Verified 03/22/23 22:05 Social History Smoking Status: Current every day smoker tobacco type: cigarettes alcohol intake: current details: 10 24 ounce beers daily and hard liquor shots substance use type: crack/cocaine and amphetamines ROS ROS ED ROS Narrative Constitutional: No fever, no chills. HEENT: No sore throat. No neck pain. No loss of vision. No rhinorrhea. Cardiovascular: No chest pain. No palpitations. No pedal edema. Respiratory: No cough, no shortness of breath. Abdominal: No abdominal pain. No nausea. No vomiting. Genitourinary: No dysuria. No hematuria. Musculoskeletal: No myalgias. No arthralgias. Neurologic: No headaches. No dizziness. No lightheadedness. Positive shakiness. Skin: No rash. No change in color. Psychiatric: No depression. No anxiety. EXAM Physical Exam Narrative Exam Narrative: Afebrile. Vital signs noted. HEENT: Normocephalic. Atraumatic. PERRL, EOMI. Neck soft and supple. No pointtenderness or step off. Cardiovascular: Regular rate and rhythm with intermittent tachycardia. No murmurs, rubs, or gallops appreciated. Respiratory: No tachypnea. Lungs clear to auscultation bilaterally. Gastrointestinal: Abdomen soft, nontender, with normoactive bowel sounds. No rebound or guarding. Neurological: Awake. Alert. Nonfocal, nonlateralizing. Skin: No rash. Normal color. No pallor. Musculoskeletal: No pedal edema. Full range of motion extremities. Const Vital Signs: 03/22/23 22:04 Temperature 97.5 F L Temperature Source Temporal Pulse Rate 108 H Respiratory Rate 18 Blood Pressure 135/86 H Blood Pressure Mean 102 Pulse Ox 96 Oxygen Delivery Method Room Air MDM MDM MDM Narrative Medical decision making narrative: Medical screening labs will be obtained as well as EKG. He is mildly tachycardic, but able to ambulate without difficulty. I reviewed his prior records. He was seen here for detox and July of last year. He did not sign outAGAINST MEDICAL ADVICE. He had been started on a phenobarbital plan. In review of his laboratory work from today he has a normal white count 9.1, hemoglobin slightly hemoconcentrated at 16.8 with hematocrit 46.8, platelet count normal at 367. Chloride is slightly elevated at 108 which I think is nonspecific, glucose appropriately elevated at 117 with a normal anion gap of 7. Alcohol level is elevated at 212. Urine for drugs of abuse is negative. I do not feel that he requires any medication currently for active withdrawal as he has an elevated alcohol level. Patient was discussed with Dr. Thomas for admission to [facility] for detox from alcohol. Patient is in stable condition. Lab Data Attestation: I reviewed the patient's lab results. Labs: Laboratory Results - last 24 hr 03/22/23 03/22/23 22:35 22:50 WBC 9.1 RBC 5.28 Hgb 16.8 H Hct 46.8 MCV 88.6 MCH 31.8 MCHC 35.9 RDW Std Deviation 40.2 RDW Coeff of Jessica 12.4 Plt Count 367 MPV 9.2 Immature Gran % (Auto) 0.300 Neut % (Auto) 58.3 Lymph % (Auto) 34.2 Loíza % (Auto) 6.3 Eos % (Auto) 0.1 Baso % (Auto) 0.8 Absolute Neuts (auto) 5.3 Absolute Lymphs (auto) 3.11 Nucleated RBC % 0 Sodium 140 Potassium 4.0 Chloride 108 H Carbon Dioxide 25.0 Anion Gap 7 BUN 7 Creatinine 0.86 Estim Creat Clear Calc 138.63 Est GFR (MDRD) Af Amer 137 Est GFR (MDRD) Non-Af 113 BUN/Creatinine Ratio 8.1 L Glucose 117 H Calcium 9.1 Total Bilirubin 0.70 AST 18 ALT 27 Alkaline Phosphatase 105 Total Protein 8.1 Albumin 4.4 Globulin 3.7 Albumin/Globulin Ratio 1.2 Urine Opiates Screen NEGATIVE Urine Methadone Screen NEGATIVE Ur Barbiturates Screen NEGATIVE Ur Phencyclidine Scrn NEGATIVE Ur Amphetamines Screen NEGATIVE MDMA (Ecstasy) Screen NEGATIVE U Benzodiazepines Scrn NEGATIVE Urine Cocaine Screen NEGATIVE U Cannabinoids Screen NEGATIVE Ur Drug Screen Comment Ethyl Alcohol 212.0 Management Discussion w/another healthcare provider: Hospitalist Discharge Plan Dx/Rx/DC Orders Clinical Impression: Desire for detoxification, Acute alcohol intoxication Disposition Disposition: Acute Care Hospital [facility] What to do if you have Problems For any increased pain, shortness of breath, bleeding, nausea or vomiting, chestpain, or any unexpected problems, contact your Primary Care Provider. Call [facility] ([phone]) or report to the closest Emergency Room. Call 911 if necessary. 03/23/238 <Electronically signed by Daquan Reid MD> Cosigner Signature (if applicable): CC: No Primary Care Physician ~ Signed [facility] Work Phone: [phone]) 204-304102-10-2024 Discharge summary Author Daquan Reid [facility] March 23, 2023 12:42am Note Date/Time March 22, 2023 1 0:17pm [facility] Medical Records Department [address] [place] [address] Emergency Department Summary 03/22/23 MR#: [id number] Acct: [id number] Name: VAL VILLA Rep #:[id number] : 1995 27 From: Daquan Reid MD PCP: Care Physician,No Primary Status :[facility] Daquan Reid MD on 03/23/23 at 0042 EKG was obtained and interpreted by myself independently as sinus tachycardia at108 bpm without ectopy or acute ST changes. No STEMI. 03/23/23 0042<Electronically signed by Daquan Reid MD> Cosigner Signature (if applicable): cc: No Primary Care Physician ~* Signed HPI History of Present Illness Chief Complaint: Substance Abuse Narrative Narrative: 27-year-old male past medical history of previous detox, presents for detox fromalcohol. He states he used to drink a lot more beer, but has been clean and sober for 7 months, but then fell off the wagon. He now drinks at least 6 tall boys daily. He is a smoker but denies other drug use. He last went through detox/rehab approximately a year ago. He states that although his last drink was probably 2 hours ago, he is starting to feel the shakes. He states that he completed detox last year, then [facility]. [facility] Medical History Alcohol abuse Anxiety Asthma Depression Migraines No acute medical problems Polysubstance abuse Smoker Substance abuse Tobacco abuse Home Medications NK 08/05/22 [History Last Taken Unknown] Allergy/AdvReac Type Severity Reaction Status Date / Time No Known Allergies Allergy Verified 03/22/23 22:05 Social History Smoking Status: Current every day smoker tobacco type: cigarettes alcohol intake: current details: 10 24 ounce beers daily and hard liquor shots substance use type: crack/cocaine and amphetamines ROS ROS ED ROS Narrative Constitutional: No fever, no chills. HEENT: No sore throat. No neck pain. No loss of vision. No rhinorrhea. Cardiovascular: No chest pain. No palpitations. No pedal edema. Respiratory: No cough, no shortness of breath. Abdominal: No abdominal pain. No nausea. No vomiting. Genitourinary: No dysuria. No hematuria. Musculoskeletal: No myalgias. No arthralgias. Neurologic: No headaches. No dizziness. No lightheadedness. Positive shakiness. Skin: No rash. No change in color. Psychiatric: No depression. No anxiety. EXAM Physical Exam Narrative Exam Narrative: Afebrile. Vital signs noted. HEENT: Normocephalic. Atraumatic. PERRL, EOMI. Neck soft and supple. No pointtenderness or step off. Cardiovascular: Regular rate and rhythm with intermittent tachycardia. No murmurs, rubs, or gallops appreciated. Respiratory: No tachypnea. Lungs clear to auscultation bilaterally. Gastrointestinal: Abdomen soft, nontender, with normoactive bowel sounds. No rebound or guarding. Neurological: Awake. Alert. Nonfocal, nonlateralizing. Skin: No rash. Normal color. No pallor. Musculoskeletal: No pedal edema. Full range of motion extremities. Const Vital Signs: 03/22/23 22:04 Temperature 97.5 F L Temperature Source Temporal Pulse Rate 108 H Respiratory Rate 18 Blood Pressure 135/86 H Blood Pressure Mean 102 Pulse Ox 96 Oxygen Delivery Method Room Air MDM MDM MDM Narrative Medical decision making narrative: Medical screening labs will be obtained as well as EKG. He is mildly tachycardic, but able to ambulate without difficulty. I reviewed his prior records. He was seen here for detox and July of last year. He did not sign outAGAINST MEDICAL ADVICE. He had been started on a phenobarbital plan. In review of his laboratory work from today he has a normal white count 9.1, hemoglobin slightly hemoconcentrated at 16.8 with hematocrit 46.8, platelet count normal at 367. Chloride is slightly elevated at 108 which I think is nonspecific, glucose appropriately elevated at 117 with a normal anion gap of 7. Alcohol level is elevated at 212. Urine for drugs of abuse is negative. I do not feel that he requires any medication currently for active withdrawal as he has an elevated alcohol level. Patient was discussed with Dr. Thomas for admission to [facility] for detox from alcohol. Patient is in stable condition. Lab Data Attestation: I reviewed the patient's lab results. Labs: Laboratory Results - last 24 hr 03/22/23 03/22/23 22:35 22:50 WBC 9.1 RBC 5.28 Hgb 16.8 H Hct 46.8 MCV 88.6 MCH 31.8 MCHC 35.9 RDW Std Deviation 40.2 RDW Coeff of Jessica 12.4 Plt Count 367 MPV 9.2 Immature Gran % (Auto) 0.300 Neut % (Auto) 58.3 Lymph % (Auto) 34.2 Loíza % (Auto) 6.3 Eos % (Auto) 0.1 Baso % (Auto) 0.8 Absolute Neuts (auto) 5.3 Absolute Lymphs (auto) 3.11 Nucleated RBC % 0 Sodium 140 Potassium 4.0 Chloride 108 H Carbon Dioxide 25.0 Anion Gap 7 BUN 7 Creatinine 0.86 Estim Creat Clear Calc 138.63 Est GFR (MDRD) Af Amer 137 Est GFR (MDRD) Non-Af 113 BUN/Creatinine Ratio 8.1 L Glucose 117 H Calcium 9.1 Total Bilirubin 0.70 AST 18 ALT 27 Alkaline Phosphatase 105 Total Protein 8.1 Albumin 4.4 Globulin 3.7 Albumin/Globulin Ratio 1.2 Urine Opiates Screen NEGATIVE Urine Methadone Screen NEGATIVE Ur Barbiturates Screen NEGATIVE Ur Phencyclidine Scrn NEGATIVE Ur Amphetamines Screen NEGATIVE MDMA (Ecstasy) Screen NEGATIVE U Benzodiazepines Scrn NEGATIVE Urine Cocaine Screen NEGATIVE U Cannabinoids Screen NEGATIVE Ur Drug Screen Comment Ethyl Alcohol 212.0 Management Discussion w/another healthcare provider: Hospitalist Discharge Plan Dx/Rx/DC Orders Clinical Impression: Desire for detoxification, Acute alcohol intoxication Disposition Disposition: Acute Care Hospital [facility] What to do if you have Problems For any increased pain, shortness of breath, bleeding, nausea or vomiting, chestpain, or any unexpected problems, contact your Primary Care Provider. Call [facility] ([phone]) or report to the closest Emergency Room. Call 911 if necessary. 03/23/23 0018 <Electronically signed by Daquan Reid MD> Cosigner Signature (if applicable): CC: No Primary Care Physician ~ Signed [facility] Work Phone: [phone]) 426-526406-27-[address] Albert [facility] August 07, 2022 9:19am Note Date/Time August 07, 2022 9:18 am [facility] Medical Records Department [address] [place] [address] Instructions for Home/Discharge Instructions 08/07/22 0918 MR#: [id number] Acct: [id number] Name: VAL VILLA Rep #:[id number] : 1995 26 From: Carmelo Albert DO PCP: Care Physician,No Primary Status :ADM IN Discharge Instructions Diet Discharge Diet: No restrictions Follow Up Care Test Results: Test results from this visit will be discussed in further detail at your follow- up appointment, if applicable. Discharge Plan Admission Admit Date/Time: 08/05/22 16:53 Primary Reason for Your Visit: alcohol withdrawal Attending Provider: Carmelo Albert Primary Care Provider: Care Physician,No Primary Consulting Providers: Ashley Hirsch Discharge Orders/Prescriptions Prescriptions: No Action NK Referrals / Follow Up: Care Physician,No Primary [Primary Care Provider] - NOT,DEFINED [Non-Staff] - Disposition Disposition (needs filled in before D/C Order can be placed): Home, Self Care 08/07/22918<Electronically signed by Carmelo Albert DO>Carmelo Albert DO CC: Dr. Ashley Hirsch, ; No Primary Care Physician ~ Signed [facility] Work Phone: [phone]) [phone] Albert [facility] August 07, 2022 9:19am Note Date/Time August 07, 2022 9:19 am [facility] Medical Records Department [address] [place] [address] Discharge Summary 08/07/22918 MR#: [id number] Acct: [id number] Name: VAL VILLA Rep #:[id number] : 1995 26 From: Carmelo Albert DO PCP: Care Physician,No Primary Status :ADM IN Location: [place] [address] Providers Date of Admission: 08/05/22 Primary Care Physician: No Primary Care Phys Reason For Visit: ETOH DETOX Diagnosis Discharge Diagnosis (1) Alcohol abuse: Status: Acute Code(s): F10.10 - Alcohol abuse, uncomplicated Plan: Patient comes in requesting detox from alcohol Alcohol level on admission is 219 with last drink being just prior to presentation Start phenobarbital taper CIWA with as needed Ativan Thiamine and folate Supportive medication for symptom control 180 consultation. Patient to follow up with [facility] for inpatient treatment on 08/[address] in the AM on 08/08, I will discharge him today. Plan Chronic complicating conditions: * Polysubstance abuse-Patient admits to utilizing cocaine and methamphetamines as well-Recommend cessation-180 consultation * Tobacco abuse-Recommend cessation-Nicotine patch DVT prophylaxis -Low risk -Recommend early and frequent ambulation CODE STATUS -Full code Medications at Discharge Home Medications NK 08/05/22 Weight / BMI Weight Weight: 79.492 kg Body Mass Index (BMI) 24.4 ABG / Lab / Microbiology Data Result Diagrams: 08/05/22 15:56 08/05/22 15:56 D/C Instructions Discharge Diet: No restrictions Meaningful Use Info Meaningful Use Diagnoses (Choose all that apply): None applicable Discharge Plan Admission Admit Date/Time: 08/05/22 16:53 Primary Reason for Your Visit: alcohol withdrawal Attending Provider: Carmelo Albert Primary Care Provider: Care Physician,No Primary Consulting Providers: Ashley Hirsch Discharge Orders/Prescriptions Prescriptions: No Action NK Referrals / Follow Up: Care Physician,No Primary [Primary Care Provider] - NOT,DEFINED [Non-Staff] - Disposition Disposition (needs filled in before D/C Order can be placed): Home, Self Care Charges/Coding Visit Charges Inpatient E&M: 47973 Disch Hosp 08/07/22918 <Electronically signed by Carmelo Albert DO> Cosigner Signature (if applicable): CC: Dr. Carmelo Albert DO; No Primary Care Physician~ Signed [facility] Work Phone: [phone]) 127-325206-27-2023 [facility] Medical Records Department [address] [place] [address] Discharge Summary 08/07/22918 MR#: [id number] Acct: [id number] Name: VAL VILLA Rep #: [id number] : 1995 26 From: Carmelo Alebrt DO PCP: Care Physician,No Primary Status:ADM IN Location: [place] [address] Providers Date of Admission: 08/05/22 Primary Care Physician: No Primary Care Phys Reason For Visit: ETOH DETOX Diagnosis Discharge Diagnosis (1) Alcohol abuse: Status: Acute Code(s): F10.10 - Alcohol abuse, uncomplicated Plan: Patient comes in requesting detox from alcohol Alcohol level on admission is 219 with last drink being just prior to presentation Start phenobarbital taper CIWA with as needed Ativan Thiamine and folate Supportive medication for symptom control 180 consultation. Patient to follow up with [facility] for inpatient treatment on 08/[address] date in the AM on 08/08, I will discharge him today. Plan Chronic complicating conditions: * Polysubstance abuse-Patient admits to utilizing cocaine and methamphetamines as well-Recommend cessation-180 consultation * Tobacco abuse-Recommend cessation-Nicotine patch DVT prophylaxis -Low risk -Recommend early and frequent ambulation CODE STATUS -Full code Medications at Discharge Home Medications NK 08/05/22 Weight / BMI Weight Weight: 79.492 kg Body Mass Index (BMI) 24.4 ABG / Lab / Microbiology Data Result Diagrams: 08/05/22 15:56 08/05/22 15:56 D/C Instructions Discharge Diet: No restrictions Meaningful Use Info Meaningful Use Diagnoses (Choose all that apply): None applicable Discharge Plan Admission Admit Date/Time: 08/05/22 16:53 Primary Reason for Your Visit: alcohol withdrawal Attending Provider: Carmelo Albert Primary Care Provider: Care Physician,No Primary Consulting Providers: Ashley Hirsch Discharge Orders/Prescriptions Prescriptions: No Action NK Referrals / Follow Up: Care Physician,No Primary [Primary Care Provider] - NOT,DEFINED [Non-Staff] - Disposition Disposition (needs filled in before D/C Order can be placed): Home, Self Care Charges/Coding Visit Charges Inpatient E M: 96011 Disch Hosp 08/07/22918 Cosigner Signature (if applicable): CC: Dr. Carmelo Albert, ; No [facility] Albert [facility] August 07, 2022 9:18am Note Date/Time August 07, 2022 8:02 am [facility] Medical Records Department [address] [place] [id number] Progress Note - Hospitalist 08/07/22 08 MR#: [id number] Acct: [id number] Name: VAL VILLA Rep #:[id number] : 1995 From: Carmelo Albert DO PCP: Care Physician,No Primary Status :ADM IN Location: [address] Reason for Visit Reason for Visit: Diagnoses Alcohol abuse, uncomplicated (08/05/22) Subjective Subjective Feels well. No events overnight. States he a court appearance around 1030. Objective Data Objective Data Vital Signs: Vital Signs Temp Pulse Resp BP Pulse Ox O2 Del Method 36.6 C 50 L 16 113/69 98 Room Air 08/07/22 04:31 08/07/22 04:31 08/07/22 04:31 08/07/22 04:31 08/07/22 04:31 08/07/22 04:31 Oxygen Delivery Method Room Air Weight: 79.492 kg Body Mass Index (BMI) 24.4 Lab / Micro Data Result Diagrams: 08/05/22 15:56 08/05/22 15:56 Physical Exam Const alert and no apparent distress Constitutional Narrative: lying in bed. non-toxic. Assessment & Plan Assessment/Plan (1) Alcohol abuse: PLAN: Patient comes in requesting detox from alcohol Alcohol level on admission is 219 with last drink being just prior to presentation Start phenobarbital taper CIWA with as needed Ativan Thiamine and folate Supportive medication for symptom control 180 consultation. Patient to follow up with [facility] for inpatient treatment on 08/[address] in the AM on 08/08, I will discharge him today. PLAN: Plan Chronic complicating conditions: * Polysubstance abuse-Patient admits to utilizing cocaine and methamphetamines as well-Recommend cessation-180 consultation * Tobacco abuse-Recommend cessation-Nicotine patch DVT prophylaxis -Low risk -Recommend early and frequent ambulation CODE STATUS -Full code 08/07/22 0918 <Electronically signed by Carmelo Albert DO> Cosigner Signature (if applicable): CC: ~ Signed [facility] Work Phone: 1(291) 617-805506-26-[address] Albert [facility] August 06, 2022 12:45pm Note Date/Time August 06, 2022 8:25 am [facility] Medical Records Department [address] [place] [address] Progress Note - Hospitalist 08/06/22822 MR#: [id number] Acct: [id number] Name: VAL VILLA Rep #:[id number] : 1995 26 From: Carmelo Albert DO PCP: Care Physician,No Primary Status :ADM IN Location: [place] [id number] Reason for Visit Reason for Visit: Diagnoses Alcohol abuse, uncomplicated (08/05/22) Subjective Subjective Feels ok. No events overnight. Objective Data Objective Data Vital Signs: Vital Signs Temp Pulse Resp BP Pulse Ox O2 Del Method 36.4 C L 72 16 124/76 H 97 Room Air 08/06/22 07:43 08/06/22 07:43 08/06/22 07:43 08/06/22 07:43 08/06/22 07:43 08/06/22 07:43 Oxygen Delivery Method Room Air Weight: 79.492 kg Body Mass Index (BMI) 24.4 Lab / Micro Data Result Diagrams: 08/05/22 15:56 08/05/22 15:56 Labs: Laboratory Results - last 24 hr 08/05/22 15:56: WBC 7.1, RBC 4.56 L, Hgb 14.6, Hct 41.3, MCV 90.6, MCH 32.0, MCHC 35.4, RDW Std Deviation 38.1, RDW Coeff of Jessica 11.6, Plt Count 249, MPV 9.1, Immature Gran % (Auto) 0.400, Neut % (Auto) 56.8, Lymph % (Auto) 33.2, Loíza% (Auto) 8.3, Eos % (Auto) 0.3, Baso % (Auto) 1.0, Absolute Neuts (auto) 4.0, Absolute Lymphs (auto) 2.36, Nucleated RBC % 0 08/05/22 15:56: Sodium 143, Potassium 4.0, Chloride 109 H, Carbon Dioxide 28.0, Anion Gap 6, BUN 8, Creatinine 0.80, Estim Creat Clear Calc 150.34, Est GFR (MDRD) Af Amer 151, Est GFR (MDRD) Non-Af 125, BUN/Creatinine Ratio 10.0, Glucose 116 H, Calcium 8.2 L, Total Bilirubin 0.70, Direct Bilirubin 0.19, AST 17, ALT 24, Alkaline Phosphatase 73, Total Protein 6.4, Albumin 3.5, Globulin 2.9 08/05/22 15:56: Ethyl Alcohol 219.0 08/05/22 16:05: Urine Opiates Screen NEGATIVE, Urine Methadone Screen NEGATIVE, Ur Barbiturates Screen NEGATIVE, Ur Phencyclidine Scrn NEGATIVE, Ur AmphetaminesScreen NEGATIVE, MDMA (Ecstasy) Screen NEGATIVE, U Benzodiazepines Scrn NEGATIVE, Urine Cocaine Screen POSITIVE H, U Cannabinoids Screen NEGATIVE, Ur Drug Screen Comment Physical Exam Const alert and no apparent distress Constitutional Narrative: lying in bed. non-toxic. Psych Psych Narrative: flat affect. Assessment & Plan Assessment/Plan (1) Alcohol abuse: PLAN: Patient comes in requesting detox from alcohol Alcohol level on admission is 219 with last drink being just prior to presentation Start phenobarbital taper CIWA with as needed Ativan Thiamine and folate Supportive medication for symptom control 180 consultation. Patient to follow up with [facility] for inpatient treatment on 08/08 PLAN: Plan Chronic complicating conditions: * Polysubstance abuse-Patient admits to utilizing cocaine and methamphetamines as well-Recommend cessation-180 consultation * Tobacco abuse-Recommend cessation-Nicotine patch DVT prophylaxis -Low risk -Recommend early and frequent ambulation CODE STATUS -Full code Charges/Coding Visit Charges Inpatient E&M: 80912 Subs Hosp L1 08/06/22 1245 <Electronically signed by Carmelo Albert DO> Cosigner Signature (if applicable): CC: ~ Signed [facility] Work Phone: 1(171) 650-652306-25-[address] Ridley [facility] August 05, 2022 7:14pm Note Date/Time August 05, 2022 3:51 pm [facility] Medical Records Department [address] [place] [address] Emergency Department Summary 08/05/22 MR#: [id number] Acct: [id number] Name: VAL VILLA Rep #:[id number] : 1995 26 From: Vilma CAMPA PCP: Care Physician,No Primary Status :ADM IN Location: [address] HPI <KATHERYN Mcdowell - Last Filed: 08/05/22 17:08> History of Present Illness Chief Complaint: Substance Abuse Narrative Narrative: 26-year-old male who is here for detox. He states he drinks alcohol, smokes crack cocaine, and uses meth. Denies IV drug use. He last used drugs yesterdayand and last alcoholic drink was on the way into the ER. He drinks about ten 24ounce beers a day and also multiple shots. He has detoxed several times in the past but denies history of seizures or DTs. [facility] <KATHERYN Mcdowell - Last Filed: 08/05/22 17:08> [facility] Medical History (Updated 08/05/22 @ 17:[address] Ashley Hirsch DO) No acute medical problems Polysubstance abuse Tobacco abuse Home Medications NK 08/05/22 [History Last Taken Unknown] Allergy/AdvReac Type Severity Reaction Status Date / Time No Known Allergies Allergy Verified 08/05/22 16:09 Social History Smoking Status: Current every day smoker tobacco type: cigarettes ROS <KATHERYN Mcdowell - Last Filed: 08/05/22 17:08> ROS ED ROS Narrative Constitutional: Negative for fever, chills, malaise. CVS: Negative for palpitations, chest pain. Respiratory: Negative for shortness of breath. GI: Negative for abdominal pain, nausea, vomiting. Neuro: Negative for headache. EXAM <KATHERYN Mcdowell - Last Filed: 08/05/22 17:08> Physical Exam Narrative Exam Narrative: CONST: Patient sitting in no acute distress. EYES: Normal inspection. NECK: Normal inspection. RESP: No respiratory distress, CTAB. CVS: Regular rate and rhythm, no murmur, no gallop. ABD: Soft and nontender, no guarding or rebound, nondistended. SKIN: Color normal, no rash, warm, dry, intact. EXTREMITIES: Normal appearance, no pedal edema. NEURO: Oriented x4. PSYCH: Normal affect. Const Vital Signs: 08/05/22 15:22 Temperature 97.7 F L Temperature Source Temporal Pulse Rate 100 Respiratory Rate 16 Blood Pressure 132/79 H Blood Pressure Mean 96 Pulse Ox 97 <Dr. Fior Ridley MD - Last Filed: 08/05/22 16:54> Physical Exam Const Vital Signs: 08/05/22 15:22 Temperature 97.7 F L Temperature Source Temporal Pulse Rate 100 Respiratory Rate 16 Blood Pressure 132/79 H Blood Pressure Mean 96 Pulse Ox 97 MDM <KATHERYN Mcdowell - Last Filed: 08/05/22 17:08> MDM MDM Narrative Medical decision making narrative: History gathered from: Patient and friend at bedside Patient here primarily for alcohol detox but also uses crack cocaine and meth. His last drink was on the way and he is currently asymptomatic. Vital signs stable. Medical exam benign. CBC, BMP, liver profile within normal limits. Alcohol level is 219. Tox positive for cocaine. Patient was given Phenergan for nausea and case was discussed with the hospitalist for admission. Differential: Polysubstance abuse, alcohol abuse, alcohol withdrawal Lab Data Attestation: I reviewed the patient's lab results. Labs: Laboratory Results - last 24 hr 08/05/22 08/05/22 08/05/22 15:56 15:56 15:56 WBC 7.1 RBC 4.56 L Hgb 14.6 Hct 41.3 MCV 90.6 MCH 32.0 MCHC 35.4 RDW Std Deviation 38.1 RDW Coeff of Jessica 11.6 Plt Count 249 MPV 9.1 Immature Gran % (Auto) 0.400 Neut % (Auto) 56.8 Lymph % (Auto) 33.2 Loíza % (Auto) 8.3 Eos % (Auto) 0.3 Baso % (Auto) 1.0 Absolute Neuts (auto) 4.0 Absolute Lymphs (auto) 2.36 Nucleated RBC % 0 Sodium 143 Potassium 4.0 Chloride 109 H Carbon Dioxide 28.0 Anion Gap 6 BUN 8 Creatinine 0.80 Estim Creat Clear Calc 150.34 Est GFR (MDRD) Af Amer 151 Est GFR (MDRD) Non-Af 125 BUN/Creatinine Ratio 10.0 Glucose 116 H Calcium 8.2 L Total Bilirubin 0.70 Direct Bilirubin 0.19 AST 17 ALT 24 Alkaline Phosphatase 73 Total Protein 6.4 Albumin 3.5 Globulin 2.9 Urine Opiates Screen Urine Methadone Screen Ur Barbiturates Screen Ur Phencyclidine Scrn Ur Amphetamines Screen MDMA (Ecstasy) Screen U Benzodiazepines Scrn Urine Cocaine Screen U Cannabinoids Screen Ur Drug Screen Comment Ethyl Alcohol 219.0 08/05/22 16:05 WBC RBC Hgb Hct MCV MCH MCHC RDW Std Deviation RDW Coeff of Jessica Plt Count MPV Immature Gran % (Auto) Neut % (Auto) Lymph % (Auto) Loíza % (Auto) Eos % (Auto) Baso % (Auto) Absolute Neuts (auto) Absolute Lymphs (auto) Nucleated RBC % Sodium Potassium Chloride Carbon Dioxide Anion Gap BUN Creatinine Estim Creat Clear Calc Est GFR (MDRD) Af Amer Est GFR (MDRD) Non-Af BUN/Creatinine Ratio Glucose Calcium Total Bilirubin Direct Bilirubin AST ALT Alkaline Phosphatase Total Protein Albumin Globulin Urine Opiates Screen NEGATIVE Urine Methadone Screen NEGATIVE Ur Barbiturates Screen NEGATIVE Ur Phencyclidine Scrn NEGATIVE Ur Amphetamines Screen NEGATIVE MDMA (Ecstasy) Screen NEGATIVE U Benzodiazepines Scrn NEGATIVE Urine Cocaine Screen POSITIVE H U Cannabinoids Screen NEGATIVE Ur Drug Screen Comment Ethyl Alcohol <Dr. Fior Ridley MD - Last Filed: 08/05/22 16:54> [facility] Lab Data Labs: Laboratory Results - last 24 hr 08/05/22 08/05/22 08/05/22 15:56 15:56 15:56 WBC 7.1 RBC 4.56 L Hgb 14.6 Hct 41.3 MCV 90.6 MCH 32.0 MCHC 35.4 RDW Std Deviation 38.1 RDW Coeff of Jessica 11.6 Plt Count 249 MPV 9.1 Immature Gran % (Auto) 0.400 Neut % (Auto) 56.8 Lymph % (Auto) 33.2 Loíza % (Auto) 8.3 Eos % (Auto) 0.3 Baso % (Auto) 1.0 Absolute Neuts (auto) 4.0 Absolute Lymphs (auto) 2.36 Nucleated RBC % 0 Sodium 143 Potassium 4.0 Chloride 109 H Carbon Dioxide 28.0 Anion Gap 6 BUN 8 Creatinine 0.80 Estim Creat Clear Calc 150.34 Est GFR (MDRD) Af Amer 151 Est GFR (MDRD) Non-Af 125 BUN/Creatinine Ratio 10.0 Glucose 116 H Calcium 8.2 L Total Bilirubin 0.70 Direct Bilirubin 0.19 AST 17 ALT 24 Alkaline Phosphatase 73 Total Protein 6.4 Albumin 3.5 Globulin 2.9 Urine Opiates Screen Urine Methadone Screen Ur Barbiturates Screen Ur Phencyclidine Scrn Ur Amphetamines Screen MDMA (Ecstasy) Screen U Benzodiazepines Scrn Urine Cocaine Screen U Cannabinoids Screen Ur Drug Screen Comment Ethyl Alcohol 219.0 08/05/22 16:05 WBC RBC Hgb Hct MCV MCH MCHC RDW Std Deviation RDW Coeff of Jessica Plt Count MPV Immature Gran % (Auto) Neut % (Auto) Lymph % (Auto) Loíza % (Auto) Eos % (Auto) Baso % (Auto) Absolute Neuts (auto) Absolute Lymphs (auto) Nucleated RBC % Sodium Potassium Chloride Carbon Dioxide Anion Gap BUN Creatinine Estim Creat Clear Calc Est GFR (MDRD) Af Amer Est GFR (MDRD) Non-Af BUN/Creatinine Ratio Glucose Calcium Total Bilirubin Direct Bilirubin AST ALT Alkaline Phosphatase Total Protein Albumin Globulin Urine Opiates Screen NEGATIVE Urine Methadone Screen NEGATIVE Ur Barbiturates Screen NEGATIVE Ur Phencyclidine Scrn NEGATIVE Ur Amphetamines Screen NEGATIVE MDMA (Ecstasy) Screen NEGATIVE U Benzodiazepines Scrn NEGATIVE Urine Cocaine Screen POSITIVE H U Cannabinoids Screen NEGATIVE Ur Drug Screen Comment Ethyl Alcohol Treatment and Re-Evaluation :: Patient seen and evaluated with [facility]. I personally interviewed and examined the patient. I was involved in all aspects of patient's orders, interpretation of results, and treatment. Patient presents requesting detox. He is primarily requesting detox from alcohol but does admit to other drug use as well. He states he has been throughdetox and withdrawal in the past. He denies ever having a prior alcohol withdrawal seizure, but also admits that he is never been this deep. He reportedly supposed to go to a residential treatment facility this coming week Patient lying in bed no acute distress. Head and neck examination is unremarkable. Heart is regular rate and rhythm. Lung sounds are clear. Abdomen is soft and nontender. Neuro exam is unremarkable. Patient states that his last drink was on the way into the emergency room. While awaiting laboratory work-up patient did report some nausea and was given p.o. Phenergan. He is not tachycardic or shaky. Patient we discussed with hospitalist for admission Discharge Plan Triage Chief Complaint: Substance Abuse ED Midlevel Provider: Vilma Cornelius ED Provider: Fior Ridley Dx/Rx/DC Orders Primary Care Provider: Care Physician,No Primary What to do if you have Problems For any increased pain, shortness of breath, bleeding, nausea or vomiting, chestpain, or any unexpected problems, contact your Primary Care Provider. Call [facility] ([phone]) or report to the closest Emergency Room. Call 911 if necessary. 08/05/221707 <Electronically signed by Vilma CAMPA> Cosigner Signature (if applicable): 08/05/221913 <Electronically signed by Fior Ridley MD> CC: No Primary Care Physician ~ Signed [facility] Work Phone: 1(612) 749-466906-25-2023 History and physical note Author Dr. Hirsch [facility] August 05, 2022 5:16pm Note Date/Time August 05, 2022 5:05 pm [facility] Medical Records Department [address] [place] [address] H&P Exam - Hospitalist 08/05/22 1701 MR#: [id number] Acct: [id number] Name: VAL VILLA Rep #:[id number] : 1995 26 From: Ashley Hirsch DO PCP: Care Physician,No Primary Status :ADM IN Location: [facility] YB189-7 HPI - General General Date of Admission: 08/05/22 Date of Service: 08/05/22 Chief Complaint: Desire for detoxification from alcohol HPI Narrative VAL VILLA, is a 26 M who presented to the emergency department at [facility] on 08/05/2022 requesting detox from alcohol. The patient states he has been in inpatient rehab twice in the last year. The firsttime for 3 months and the last time for a few weeks. He just left rehab about aweek ago. He started drinking as soon as he left rehab. He currently has been drinking about 10 24 ounce beers daily along with shots of hard liquor with his last drink being just prior to arrival. He denies any previous seizure or difficult withdrawal/detox with his previous admissions. He also admitted to recent crack cocaine use and methamphetamine use which she states is the first time he has used either of these. His amphetamine screen is negative however his cocaine is drug screen is positive. Alcohol level was 219. Vital signs were stable on presentation with mild tachycardia. Blood pressure is 132/79. His CBC and CMP were unremarkable. He denies ever utilizing IV drugs. He admits to smoking 1 pack or more of cigarettes daily. His plan at discharge is for readmission into inpatient rehab. [facility] Medical History No acute medical problems Polysubstance abuse Tobacco abuse Home Medications NK 08/05/22 [History Last Taken Unknown] Allergy/AdvReac Type Severity Reaction Status Date / Time No Known Allergies Allergy Verified 08/05/22 16:09 no significant family history no surgical history Social History (Updated 08/05/22 @ 17:[address] Ashley Hirsch DO) Smoking Status: Current every day smoker tobacco type: cigarettes Smoking packsper day: 1 Smoking cigarettes per day: 20.0 alcohol intake: current details: 10 24 ounce beers daily and hard liquor shots substance use type: crack/cocaine and amphetamines ROS Constitutional Constitutional: Reports fatigue; Denies anorexia, change in weight, chills, fever(s), malaise, night sweats, weakness or other Eyes Eyes: Denies blurry vision, change in eye color, change in vision, discharge from eye(s), double vision, erythema, eye pain, loss of vision or other ENT HEENT: Denies abnormal hearing, dysphagia, ear pain, epistaxis, headache(s), hearing loss, nasal congestion, nasal discharge, post nasal drip, sinus pressure, sore throat or other Cardiovascular Cardiovascular: Denies chest pain, claudication, dyspnea on exertion, edema, lightheadedness, orthopnea, palpitations, paroxysmal nocturnal dyspnea, rapid heart rate, syncope or other Respiratory/Chest Respiratory/Chest: Denies cough, dyspnea, excessive phlegm production, hemoptysis, productive cough, shortness of breath at rest, shortness of breath with exertion, wheezing or other Gastrointestinal Gastrointestinal: Reports nausea; Denies abdominal pain, coffee ground emesis, constipation, diarrhea, dyspepsia, hematemesis, hematochezia, loose stools, melena, vomiting or other Genitourinary Genitourinary: Denies burning urination, difficulty urinating, dysuria, hematuria, nocturia, urinary frequency, urinary hesitancy, urinary incontinence,urinary urgency or other Musculoskeletal Musculoskeletal: Reports myalgias; Denies arthralgias, back pain, joint pain, joint stiffness, joint swelling, neck pain or other Neurologic Neurologic: Denies abnormal gait, abnormal speech, confusion, disequilibrium, dizziness, focal weakness, headache(s), numbness, paresthesias, seizure-like activity, seizures, syncope, tingling, tremor(s) or other Psychiatric Psychiatric: Denies anxiety, depression, homicidal ideation, suicidal ideation or other Endocrine Endocrinology: Denies change in body appearance, cold intolerance, excessive sweating, heat intolerance, polydipsia, polyuria or other Hematologic/Lymphatic Hematologic/Lymphatic: Denies anemia, easy bleeding, easy bruising, lymphadenopathy or other Allergic/Immunologic Allergic/Immunologic: Denies rhinitis, hives, eczemia, asthma or other Vital Signs Vital Signs Vital Signs: 08/05/22 15:22 Temperature 97.7 F L Temperature Source Temporal Pulse Rate 100 Respiratory Rate 16 Blood Pressure 132/79 H Blood Pressure Mean 96 Pulse Ox 97 Weight Weight: 88.088 kg Body Mass Index (BMI) 27.1 Physical Exam Const alert, oriented x3, no apparent distress, average body habitus, healthy appearing and well nourished Constitutional Narrative: Young white male, sitting up in bed, significant other at bedside, appears comfortable and nontoxic, nursing in bed General Appearance: cooperative HEENT normocephalic, head/scalp atraumatic, hearing grossly normal bilaterally and moist oral mucous membranes HEENT Narrative: Dentition is good, Mallampati is 2-3, no thrush Resp normal respiratory effort, no retractions, no use of accessory muscles and clearto auscultation bilaterally Auscultation: Negative for rales, rhonchi or wheezes Cardio regular rate, regular rhythm, S1 normal heart sound, S2 normal heart sound, no murmurs, no rub, no gallops and no clicks GI normal to inspection, nondistended, normoactive bowel sounds and soft to palpation; Negative for non-tender GI Narrative: Very mild diffuse tenderness with no focal tenderness Extremity no clubbing, cyanosis or edema Extremity Narrative: Pedal pulses are 2+ Neuro oriented x3, moves all extremities and no focal motor deficits Speech: speech normal Psych affect normal Psych Narrative: Pleasant, interacts appropriately Results Lab / Micro Data Result Diagrams: 08/05/22 15:56 08/05/22 15:56 Labs: Laboratory Results - last 24 hr 08/05/22 15:56: WBC 7.1, RBC 4.56 L, Hgb 14.6, Hct 41.3, MCV 90.6, MCH 32.0, MCHC 35.4, RDW Std Deviation 38.1, RDW Coeff of Jessica 11.6, Plt Count 249, MPV 9.1, Immature Gran % (Auto) 0.400, Neut % (Auto) 56.8, Lymph % (Auto) 33.2, Loíza% (Auto) 8.3, Eos % (Auto) 0.3, Baso % (Auto) 1.0, Absolute Neuts (auto) 4.0, Absolute Lymphs (auto) 2.36, Nucleated RBC % 0 08/05/22 15:56: Sodium 143, Potassium 4.0, Chloride 109 H, Carbon Dioxide 28.0, Anion Gap 6, BUN 8, Creatinine 0.80, Estim Creat Clear Calc 150.34, Est GFR (MDRD) Af Amer 151, Est GFR (MDRD) Non-Af 125, BUN/Creatinine Ratio 10.0, Glucose 116 H, Calcium 8.2 L, Total Bilirubin 0.70, Direct Bilirubin 0.19, AST 17, ALT 24, Alkaline Phosphatase 73, Total Protein 6.4, Albumin 3.5, Globulin 2.9 08/05/22 15:56: Ethyl Alcohol 219.0 08/05/22 16:05: Urine Opiates Screen NEGATIVE, Urine Methadone Screen NEGATIVE, Ur Barbiturates Screen NEGATIVE, Ur Phencyclidine Scrn NEGATIVE, Ur AmphetaminesScreen NEGATIVE, MDMA (Ecstasy) Screen NEGATIVE, U Benzodiazepines Scrn NEGATIVE, Urine Cocaine Screen POSITIVE H, U Cannabinoids Screen NEGATIVE, Ur Drug Screen Comment Assessment & Plan Assessment/Plan (1) Alcohol abuse: (2) Desire for detoxification: PLAN: Plan Alcohol abuse with pending alcohol withdrawal -Patient comes in requesting detox from alcohol -Alcohol level on admission is 219 with last drink being just prior to presentation -Start phenobarbital taper -CIWA with as needed Ativan -Thiamine and folate -Supportive medication for symptom control -180 consultation Polysubstance abuse -Patient admits to utilizing cocaine and methamphetamines as well -Recommend cessation -180 consultation Tobacco abuse -Recommend cessation -Nicotine patch DVT prophylaxis -Low risk -Recommend early and frequent ambulation CODE STATUS -Full code Charges/Coding Visit Charges Inpatient E&M: 23566 Init Hosp L2 08/05/22 1716 <Electronically signed by Ashley Hirsch DO> Cosigner Signature (if applicable): CC: Dr. Ashley Hirsch DO; No Primary Care Physician~ Signed [facility] Work Phone: Discharge summary Author Marcio Cardona [facility] May 01, 2023 6:26am Note Date/Time May 01, 2023 5:2 8am [facility] Medical Records Department [address] [place] [id number] Emergency Department Summary 05/01/23 MR#: [id number] Acct: [id number] Name: VAL VILLA Rep #:[id number] : 1995 27 From: Marcio Cardona MD PCP: Care Physician,No Primary Status :ADM IN Location: ICU CVICU20 3-1 HPI History of Present Illness Chief Complaint: ETOH Intox Informant: patient Narrative Narrative: Patient presents requesting detox from alcohol. Does not use any other substances. Averages quite a bit of alcohol daily, around 24 beers in addition to low proof liquor that varies in amount. He states his last drink was just prior to getting here, and he still feels shaky like he has not had enough. He states he is here under court order, but he does want to stop drinking and get his life straightened out. He admits that he left AMA 24 hours into his detox the last time he was here, and he does not intend to do that again. [facility] Medical History (Updated 05/01/23 @ 05:[address] Jacquie Beckwith MD) Alcohol abuse Anxiety and depression Asthma Migraines Polysubstance abuse Tobacco abuse Home Medications NK 08/05/22 [History Last Taken Unknown] Allergy/AdvReac Type Severity Reaction Status Date / Time No Known Allergies Allergy Verified 03/22/23 22:05 Family History (Updated 05/01/23 @ 05:[address] Jacquie Beckwith MD) Uncle Alcohol abuse Paternal uncles. Grandfather Alcohol abuse Mother No problems noted. Father No problems noted. Surgical History (Updated 05/01/23 @ 05:[address] Jacquie Beckwith MD) No history of previous surgery Social History (Updated 05/01/23 @ 05:[address] Jacquie Beckwith MD) household members: none Smoking Status: Current every day smoker tobacco type: cigarettes Smoking packsper day: 0.5 Smoking cigarettes per day: 10.0 alcohol intake: current details: 10 24 ounce beers daily and hard liquor shots substance use type: crack/cocaine and amphetamines ROS ROS ED Constitutional Constitutional ED: Reports other Details: Feeling shaky ; Denies chills or fever(s) Eyes Eyes: Denies change in vision or diplopia ENT ENT ED: Denies rhinorrhea or sore throat Cardiovascular Cardiovascular: Denies chest pain or palpitations Respiratory/Chest Respiratory/Chest: Denies cough or dyspnea Gastrointestinal Gastrointestinal: Denies abdominal pain, diarrhea, nausea or vomiting Genitourinary Genitourinary ED: Denies dysuria or hematuria Musculoskeletal Musculoskeletal: Denies back pain or neck pain Integumentary Denies abscess or rash Neurologic Neurologic: Denies headache(s), paresthesias or weakness Psychiatric Psychiatric: Reports anxiety; Denies suicidal thoughts EXAM Physical Exam Const Vital Signs: 05/01/23 05:05 Temperature 96.8 F L Temperature Source Temporal Pulse Rate 93 Respiratory Rate 18 Blood Pressure 120/76 Blood Pressure Mean 90 Pulse Ox 96 Oxygen Delivery Method Room Air Positive well nourished and well developed General Appearance ED: well developed and NAD HEENT Reports moist mucous membranes normocephalic and atraumatic Eyes PERRL and EOMs intact bilaterally Neck full ROM and supple Resp normal respiratory effort and clear to auscultation bilaterally Cardio regular rate, regular rhythm and no murmurs GI non-tender and non-distended Auscultation: normoactive bowel sounds Palpation: soft Back/Spine no CVA tenderness General Back: other FROM Extremity normal to inspection General Extremety ED: Negative for edema, pulses abnormal or tenderness General Extremity: Negative for edema or pulses abnormal Neuro oriented x3, CN's II-XII intact bilaterally and no sensory deficits noted Sensorium / Orientation: awake and alert Motor Exam: strength 5/5 throughout Skin no rashes or lesions noted and no wounds MDM MDM MDM Narrative Medical decision making narrative: Normal vital signs, no history of seizures recently or delirium tremens at this time. Having some mild withdrawal symptoms, will start him on phenobarbital andadmit him to the medical floor. Lab Data Attestation: I reviewed the patient's lab results. Labs: Laboratory Results - last 24 hr 05/01/23 05:30 Urine Opiates Screen NEGATIVE Urine Methadone Screen NEGATIVE Ur Barbiturates Screen NEGATIVE Ur Phencyclidine Scrn NEGATIVE Ur Amphetamines Screen NEGATIVE MDMA (Ecstasy) Screen NEGATIVE U Benzodiazepines Scrn NEGATIVE Urine Cocaine Screen NEGATIVE U Cannabinoids Screen NEGATIVE Ur Drug Screen Comment Management Discussion w/another healthcare provider: Hospitalist Discharge Plan Triage Chief Complaint: ETOH Intox ED Provider: Marcio Cardona Dx/Rx/DC Orders Clinical Impression: Alcohol dependence Primary Care Provider: Care Physician,No Primary What to do if you have Problems For any increased pain, shortness of breath, bleeding, nausea or vomiting, chestpain, or any unexpected problems, contact your Primary Care Provider. Call [facility] ([phone]) or report to the closest Emergency Room. Call 911 if necessary. 05/01/23625 <Electronically signed by Marcio Cardona MD> Cosigner Signature (if applicable): CC: No Primary Care Physician ~ Signed [facility] Work Phone: Evaluation note* Diagnosis Onset Date Resolution Status Alcohol abuse acute Desire for detoxification ac [facility] Work Phone: Evaluation note* Diagnosis Onset Date Resolution Status Acute alcohol intoxication a cute Acute hyperactive alcohol withdrawal delirium acute Desire for detoxification ac [facility] Work Phone: Evaluation note* Diagnosis Onset Date Resolution Status Acute hyperactive alcohol withdrawal delirium resolved Alcohol dependence acute Alcohol withdrawal acute [facility] Work Phone: Evaluation note* Diagnosis Onset Date Resolution Status Acute hyperactive alcohol withdrawal delirium resolved Alcohol withdrawal acute [facility] Work Phone: Evaluation note* Diagnosis Influenza A- Primary Influenza with other respiratory manifestations URI with cough and congestion Generalized body [facility]hes [facility] Chest pain, unspecified type- Primary Methamphetamine abuse (HCC) Nondependent amphetamine or related acting sympathomimetic abuse, unspecified Alcohol abuse Nondependent alcohol abuse, unspecified drinking behavior Chest pain Unspecified chest pain Methamphetamine abuse (HCC) Nondependent amphetamine or related acting sympathomimetic abuse, unspecified Alcohol abuse Nondependent alcohol abuse, unspecified drinking behavior documented [facility] Author Dr. Hirsch [facility] August 05, 2022 5:16pm Note Date/Time August 05, 2022 5:05 pm [facility] Medical Records Department [address] [place] [address] H&P Exam - Hospitalist 08/05/22 1701 MR#: [id number] Acct: [id number] Name: VAL VILLA Rep #:[id number] : 1995 26 From: Ashley Hirsch DO PCP: Care Physician,No Primary Status :ADM IN Location: [facility] [id number] HPI - General General Date of Admission: 08/05/22 Date of Service: 08/05/22 Chief Complaint: Desire for detoxification from alcohol HPI Narrative VAL VILLA, is a 26 M who presented to the emergency department at [facility] on 08/05/2022 requesting detox from alcohol. The patient states he has been in inpatient rehab twice in the last year. The firsttime for 3 months and the last time for a few weeks. He just left rehab about aweek ago. He started drinking as soon as he left rehab. He currently has been drinking about 10 24 ounce beers daily along with shots of hard liquor with his last drink being just prior to arrival. He denies any previous seizure or difficult withdrawal/detox with his previous admissions. He also admitted to recent crack cocaine use and methamphetamine use which she states is the first time he has used either of these. His amphetamine screen is negative however his cocaine is drug screen is positive. Alcohol level was 219. Vital signs were stable on presentation with mild tachycardia. Blood pressure is 132/79. His CBC and CMP were unremarkable. He denies ever utilizing IV drugs. He admits to smoking 1 pack or more of cigarettes daily. His plan at discharge is for readmission into inpatient rehab. [facility] Medical History No acute medical problems Polysubstance abuse Tobacco abuse Home Medications NK 08/05/22 [History Last Taken Unknown] Allergy/AdvReac Type Severity Reaction Status Date / Time No Known Allergies Allergy Verified 08/05/22 16:09 no significant family history no surgical history Social History (Updated 08/05/22 @ 17:[address] Ashley Hirsch DO) Smoking Status: Current every day smoker tobacco type: cigarettes Smoking packsper day: 1 Smoking cigarettes per day: 20.0 alcohol intake: current details: 10 24 ounce beers daily and hard liquor shots substance use type: crack/cocaine and amphetamines ROS Constitutional Constitutional: Reports fatigue; Denies anorexia, change in weight, chills, fever(s), malaise, night sweats, weakness or other Eyes Eyes: Denies blurry vision, change in eye color, change in vision, discharge from eye(s), double vision, erythema, eye pain, loss of vision or other ENT HEENT: Denies abnormal hearing, dysphagia, ear pain, epistaxis, headache(s), hearing loss, nasal congestion, nasal discharge, post nasal drip, sinus pressure, sore throat or other Cardiovascular Cardiovascular: Denies chest pain, claudication, dyspnea on exertion, edema, lightheadedness, orthopnea, palpitations, paroxysmal nocturnal dyspnea, rapid heart rate, syncope or other Respiratory/Chest Respiratory/Chest: Denies cough, dyspnea, excessive phlegm production, hemoptysis, productive cough, shortness of breath at rest, shortness of breath with exertion, wheezing or other Gastrointestinal Gastrointestinal: Reports nausea; Denies abdominal pain, coffee ground emesis, constipation, diarrhea, dyspepsia, hematemesis, hematochezia, loose stools, melena, vomiting or other Genitourinary Genitourinary: Denies burning urination, difficulty urinating, dysuria, hematuria, nocturia, urinary frequency, urinary hesitancy, urinary incontinence,urinary urgency or other Musculoskeletal Musculoskeletal: Reports myalgias; Denies arthralgias, back pain, joint pain, joint stiffness, joint swelling, neck pain or other Neurologic Neurologic: Denies abnormal gait, abnormal speech, confusion, disequilibrium, dizziness, focal weakness, headache(s), numbness, paresthesias, seizure-like activity, seizures, syncope, tingling, tremor(s) or other Psychiatric Psychiatric: Denies anxiety, depression, homicidal ideation, suicidal ideation or other Endocrine Endocrinology: Denies change in body appearance, cold intolerance, excessive sweating, heat intolerance, polydipsia, polyuria or other Hematologic/Lymphatic Hematologic/Lymphatic: Denies anemia, easy bleeding, easy bruising, lymphadenopathy or other Allergic/Immunologic Allergic/Immunologic: Denies rhinitis, hives, eczemia, asthma or other Vital Signs Vital Signs Vital Signs: 08/05/22 15:22 Temperature 97.7 F L Temperature Source Temporal Pulse Rate 100 Respiratory Rate 16 Blood Pressure 132/79 H Blood Pressure Mean 96 Pulse Ox 97 Weight Weight: 88.088 kg Body Mass Index (BMI) 27.1 Physical Exam Const alert, oriented x3, no apparent distress, average body habitus, healthy appearing and well nourished Constitutional Narrative: Young white male, sitting up in bed, significant other at bedside, appears comfortable and nontoxic, nursing in bed General Appearance: cooperative HEENT normocephalic, head/scalp atraumatic, hearing grossly normal bilaterally and moist oral mucous membranes HEENT Narrative: Dentition is good, Mallampati is 2-3, no thrush Resp normal respiratory effort, no retractions, no use of accessory muscles and clearto auscultation bilaterally Auscultation: Negative for rales, rhonchi or wheezes Cardio regular rate, regular rhythm, S1 normal heart sound, S2 normal heart sound, no murmurs, no rub, no gallops and no clicks GI normal to inspection, nondistended, normoactive bowel sounds and soft to palpation; Negative for non-tender GI Narrative: Very mild diffuse tenderness with no focal tenderness Extremity no clubbing, cyanosis or edema Extremity Narrative: Pedal pulses are 2+ Neuro oriented x3, moves all extremities and no focal motor deficits Speech: speech normal Psych affect normal Psych Narrative: Pleasant, interacts appropriately Results Lab / Micro Data Result Diagrams: 08/05/22 15:56 08/05/22 15:56 Labs: Laboratory Results - last 24 hr 08/05/22 15:56: WBC 7.1, RBC 4.56 L, Hgb 14.6, Hct 41.3, MCV 90.6, MCH 32.0, MCHC 35.4, RDW Std Deviation 38.1, RDW Coeff of Jessica 11.6, Plt Count 249, MPV 9.1, Immature Gran % (Auto) 0.400, Neut % (Auto) 56.8, Lymph % (Auto) 33.2, Loíza% (Auto) 8.3, Eos % (Auto) 0.3, Baso % (Auto) 1.0, Absolute Neuts (auto) 4.0, Absolute Lymphs (auto) 2.36, Nucleated RBC % 0 08/05/22 15:56: Sodium 143, Potassium 4.0, Chloride 109 H, Carbon Dioxide 28.0, Anion Gap 6, BUN 8, Creatinine 0.80, Estim Creat Clear Calc 150.34, Est GFR (MDRD) Af Amer 151, Est GFR (MDRD) Non-Af 125, BUN/Creatinine Ratio 10.0, Glucose 116 H, Calcium 8.2 L, Total Bilirubin 0.70, Direct Bilirubin 0.19, AST 17, ALT 24, Alkaline Phosphatase 73, Total Protein 6.4, Albumin 3.5, Globulin 2.9 08/05/22 15:56: Ethyl Alcohol 219.0 08/05/22 16:05: Urine Opiates Screen NEGATIVE, Urine Methadone Screen NEGATIVE, Ur Barbiturates Screen NEGATIVE, Ur Phencyclidine Scrn NEGATIVE, Ur AmphetaminesScreen NEGATIVE, MDMA (Ecstasy) Screen NEGATIVE, U Benzodiazepines Scrn NEGATIVE, Urine Cocaine Screen POSITIVE H, U Cannabinoids Screen NEGATIVE, Ur Drug Screen Comment Assessment & Plan Assessment/Plan (1) Alcohol abuse: (2) Desire for detoxification: PLAN: Plan Alcohol abuse with pending alcohol withdrawal -Patient comes in requesting detox from alcohol -Alcohol level on admission is 219 with last drink being just prior to presentation -Start phenobarbital taper -CIWA with as needed Ativan -Thiamine and folate -Supportive medication for symptom control -180 consultation Polysubstance abuse -Patient admits to utilizing cocaine and methamphetamines as well -Recommend cessation -180 consultation Tobacco abuse -Recommend cessation -Nicotine patch DVT prophylaxis -Low risk -Recommend early and frequent ambulation CODE STATUS -Full code Charges/Coding Visit Charges Inpatient E&M: 98910 Init Hosp L2 08/05/22 1716 <Electronically signed by Ashley Hirsch DO> Cosigner Signature (if applicable): CC: Dr. Ashley Hirsch DO; No Primary Care Physician~ Signed [facility] Work Phone: History and physical note Author Stan Thomas [facility] March 23, 2023 12:48am Note Date/Time March 23, 2023 12:18am [facility] Medical Records Department [address] [place] [address] H&P Exam - Hospitalist 03/23/23 0017 MR#: [id number] Acct: [id number] Name: VAL VILLA Rep #:[id number] : 1995 27 From: Stan Bullock PCP: Care Physician,No Primary Status :ADM IN Location: [facility] LW033-5 HPI - General General Date of Admission: 03/23/23 Date of Service: 03/23/23 Chief Complaint: Alcohol withdrawal symptoms. Feeling restless, drowsy and lethargic HPI Narrative VAL DAISY, is a 27 M with history of chronic alcohol use mainly beer came to ED for help as he is feeling restless lethargic and drowsy. Patient states he drinks about 24, 12 ounces Of Beer per Day Budweiser or Similar. He was drinking hard liquor vodka or others about 2 years ago but he stopped that. Smokes cigarettes 1 pack/day. Denies prior history of seizure or DT. He was last admitted in July 2022 for alcohol withdrawal symptoms. No fever or chills. Denies any serious complications of chronic alcohol drinking including hematemesis melena or alcoholic liver disease [facility] Medical History Alcohol abuse Anxiety Asthma Depression Migraines No acute medical problems Polysubstance abuse Smoker Substance abuse Tobacco abuse Home Medications NK 08/05/22 [History Last Taken Unknown] Allergy/AdvReac Type Severity Reaction Status Date / Time No Known Allergies Allergy Verified 03/22/23 22:05 Social History Smoking Status: Current every day smoker tobacco type: cigarettes alcohol intake: current details: 10 24 ounce beers daily and hard liquor shots substance use type: crack/cocaine and amphetamines ROS ROS Narrative Constitutional: Mild drowsy feeling slow and lethargic. No fever. HEENT: Reports systems reviewed and no addt'l complaints, except as documented Respiratory/Chest: No acute shortness of breath or respiratory distress or wheezing. CVS: No chest pain or pressure or tightness Gastrointestinal: Denies coffee ground emesis, hematemesis or vomiting Genitourinary: Denies burning urination or new urinary tract symptoms Musculoskeletal: Denies acute joint pain or limited range of motion. No acute injury Neurologic: Denies seizure-like symptoms. Psychiatric: Chronic alcohol use habit/disorder skin: No ulcer. No rash Endocrinology: Reports systems reviewed and no addt'l complaints, except as documented Hematologic/Lymphatic: Reports systems reviewed and no addt'l complaints, exceptas documented Rest 14 ROS are negative except as mentioned in HPI Vital Signs Vital Signs Vital Signs: 03/22/23 22:04 Temperature 97.5 F L Temperature Source Temporal Pulse Rate 108 H Respiratory Rate 18 Blood Pressure 135/86 H Blood Pressure Mean 102 Pulse Ox 96 Oxygen Delivery Method Room Air Weight Weight: 198 lb Body Mass Index (BMI) 27.6 Physical Exam Narrative General: Awake but mildly lethargic. Oriented x3, Cooperative HEENT: Atraumatic, PERRLA, EOMI, Normocephalic Oral: No Gingival or Mucosal Lesions/ Ulcerations Neck: Supple, No JVD, Negative Carotid Bruits Chest wall/Lungs: Air entry diminished in bilateral lung bases. No crepitation/rhonchi Cardiovascular: Regular rate, Regular Rhythm, Normal S1, Normal S2, No M/G/R Abdomen: Bowel Sounds Present, Soft, Non Tender, Non-Distended. No palpable mass. : No dysuria. No renal angle tenderness. No suprapubic tenderness. Extremities: No edema, Capillary Refill Less than 3 Seconds Skin: No rashes, No breakdown Musculoskeletal: No Tenderness to Palpation of Joints or Extremities Neurological: Cranial nerves II-XII grossly intact, DTR 2+/4. No acute focal neurological deficit. Psych/Mental Status: Flat affect. Restless and mild anxious. Results Lab / Micro Data 03/22/23 22:50 03/22/23 22:50 Labs: Laboratory Results - last 24 hr 03/22/23 22:35: Urine Opiates Screen NEGATIVE, Urine Methadone Screen NEGATIVE, Ur Barbiturates Screen NEGATIVE, Ur Phencyclidine Scrn NEGATIVE, Ur AmphetaminesScreen NEGATIVE, MDMA (Ecstasy) Screen NEGATIVE, U Benzodiazepines Scrn NEGATIVE, Urine Cocaine Screen NEGATIVE, U Cannabinoids Screen NEGATIVE, Ur Drug Screen Comment 03/22/23 22:50: WBC 9.1, RBC 5.28, Hgb 16.8 H, Hct 46.8, MCV 88.6, MCH 31.8, MCHC 35.9, RDW Std Deviation 40.2, RDW Coeff of Jessica 12.4, Plt Count 367, MPV 9.2, Immature Gran % (Auto) 0.300, Neut % (Auto) 58.3, Lymph % (Auto) 34.2, Loíza% (Auto) 6.3, Eos % (Auto) 0.1, Baso % (Auto) 0.8, Absolute Neuts (auto) 5.3, Absolute Lymphs (auto) 3.11, Nucleated RBC % 0, Sodium 140, Potassium 4.0, Chloride 108 H, Carbon Dioxide 25.0, Anion Gap 7, BUN 7, Creatinine 0.86, Estim Creat Clear Calc 138.63, Est GFR (MDRD) Af Amer 137, Est GFR (MDRD) Non-Af 113, BUN/Creatinine Ratio 8.1 L, Glucose 117 H, Calcium 9.1, Total Bilirubin 0.70, AST 18, ALT 27, Alkaline Phosphatase 105, Total Protein 8.1, Albumin 4.4, Globulin 3.7, Albumin/Globulin Ratio 1.2, Ethyl Alcohol 212.0 Assessment & Plan Assessment/Plan (1) Acute hyperactive alcohol withdrawal delirium: PLAN: Plan This is a 27-year-old gentleman being admitted for acute alcohol withdrawal symptoms. 1. Acute alcohol withdrawal syndrome with history of chronic alcohol use disorder, with dependence and tolerance: Patient is being [facility] Patient on phenobarbital based order set along with other adjunctive medications gabapentin, Bentyl, Vistaril, clonidine, Klonopin as needed for alcohol withdrawal symptom control. Patient is on thiamine and folate acid. Twelve-lead EKG shows sinus tachycardiaat 108 bpm. Liver chemistry normal limit. GGT pending. Serum alcohol was highat 212. CIWA monitor. poultry farm manager consulted.. 2. Chronic nicotine use/cigarette smoking: Patient smokes since pack per day since age of 14. Nicotine patch ordered. 3. DVT prophylaxis: Low risk. No prophylaxis indicated. Early ambulation encouraged Full code verified. Patient does not have living will or advanced directive. Laboratory Results 03/22/23 22:35: Urine Opiates Screen NEGATIVE, Urine Methadone Screen NEGATIVE, Ur Barbiturates Screen NEGATIVE, Ur Phencyclidine Scrn NEGATIVE, Ur AmphetaminesScreen NEGATIVE, MDMA (Ecstasy) Screen NEGATIVE, U Benzodiazepines Scrn NEGATIVE, Urine Cocaine Screen NEGATIVE, U Cannabinoids Screen NEGATIVE, Ur DrugScreen Comment 03/22/23 22:50: WBC 9.1, RBC 5.28, Hgb 16.8 H, Hct 46.8, MCV 88.6, MCH 31.8, MCHC 35.9, RDW Std Deviation 40.2, RDW Coeff of Jessica 12.4, Plt Count 367, MPV 9.2, Immature Gran % (Auto) 0.300, Neut % (Auto) 58.3, Lymph % (Auto) 34.2, Loíza% (Auto) 6.3, Eos % (Auto) 0.1, Baso % (Auto) 0.8, Absolute Neuts (auto) 5.3, Absolute Lymphs (auto) 3.11, Nucleated RBC % 0, Sodium 140, Potassium 4.0, Chloride 108 H, Carbon Dioxide 25.0, Anion Gap 7, BUN 7, Creatinine 0.86, Estim Creat Clear Calc 138.63, Est GFR (MDRD) Af Amer 137, Est GFR (MDRD) Non-Af 113, BUN/Creatinine Ratio 8.1 L, Glucose 117 H, Calcium 9.1, Total Bilirubin 0.70, GGT Pending, AST 18, ALT 27, Alkaline Phosphatase 105, Total Protein 8.1, Albumin 4.4, Globulin 3.7, Albumin/Globulin Ratio 1.2, Ethyl Alcohol 212.0 Charges/Coding Visit Charges Inpatient E&M: 48467 Init Hosp L3 03/23/23 0048 <Electronically signed by Stan Thomas MD> Cosigner Signature (if applicable): CC: Dr. Stan Thomas MD; No Primary Care Physician~ Signed [facility] Work Phone: History and physical note Author Jacquie Beckwith [facility] May 01, 2023 5:50am Note Date/Time May 01, 2023 5:3 3am [facility] Medical Records Department [address] [place] [id number] H&P Exam - Hospitalist 05/01/23 0532 MR#: [id number] Acct: [id number] Name: VAL VILLA Rep #:[id number] : 1995 27 From: Jacquie Beckwith MD PCP: Care Physician,No Primary Status :ADM IN Location: ICU CVICU20 3-1 HPI - General General Date of Admission: 05/01/23 Date of Service: 05/01/23 Chief Complaint: EtOH detoxification request, withdrawal. HPI Narrative The patient is a 27 y/o M w/ PMHx: Chart reported Hx Polysubstance abuse (crack/cocaine and amphetamines) although patient currently denying, Tobacco use, EtOH abuse (Lower proof liquor, wine, 24 beers daily/mix), Anxiety and Depression, Asthma, Chronic migraines who presents to the [facility] ED on 05/01/23 withlast EtOH intake reported prior to ED arrival but less than his normal with complaint of mild tremors and tactile disturbances otherwise no severe withdrawal symptoms yet reporting that he is required to have withdrawal treatment and that it is court appointed. Workup in the ED included T96.8, heart rate 93, BP 120/76, respiratory rate 18, 96% on room air, pending CBC, CMP, urine drug screen, ethyl alcohol level upon evaluation of patient. In the ED given patient mild withdrawal symptoms patient administered phenobarbital 97.2 mg p.o. x 1. PFSH Medical History (Updated 05/01/23 @ 05:[address] Jacquie Beckwith MD) Alcohol abuse Anxiety and depression Asthma Migraines Polysubstance abuse Tobacco abuse Home Medications NK 08/05/22 [History Last Taken Unknown] Allergy/AdvReac Type Severity Reaction Status Date / Time No Known Allergies Allergy Verified 03/22/23 22:05 Family History (Updated 05/01/23 @ 05:[address] Jacquie Beckwith MD) Uncle Alcohol abuse Paternal uncles. Grandfather Alcohol abuse Mother No problems noted. Father No problems noted. Surgical History (Updated 05/01/23 @ 05:[address] Jacquie Beckwith MD) No history of previous surgery Social History (Updated 05/01/23 @ 05:[address] Jacquie Beckwith MD) household members: none Smoking Status: Current every day smoker tobacco type: cigarettes Smoking packsper day: 0.5 Smoking cigarettes per day: 10.0 alcohol intake: current details: 10 24 ounce beers daily and hard liquor shots substance use type: crack/cocaine and amphetamines ROS ROS Narrative Admission Review of Systems: CONSTITUTIONAL: No weight loss, fever, chills, + weakness or fatigue. HEENT: + Chronic migraines. Eyes: No visual loss, blurred vision, double vision or yellow sclerae. Ears, Nose, Throat: No hearing loss, sneezing, congestion, runny nose or sore throat. SKIN: No rash or itching, lesions, wounds. CARDIOVASCULAR: No chest pain, chest pressure or chest discomfort, palpitations,edema, orthopnea, syncopal events. RESPIRATORY: No shortness of breath, cough or sputum, wheezing, hemoptysis. GASTROINTESTINAL: + Chronic diarrhea. No anorexia, nausea, vomiting, abdominal pain, melena, BRBPR. GENITOURINARY: No dysuria, frequency, urgency or retention. NEUROLOGICAL: + Mild tremors and reported tactile disturbances, chronic migraines. No dizziness, syncope, paralysis, ataxia, numbness or tingling in the extremities, focal weakness, change in bowel or bladder control, seizure. MUSCULOSKELETAL: No muscle, back pain, joint pain or stiffness. HEMATOLOGIC: No anemia, bleeding or bruising. LYMPHATICS: No enlarged nodes. No history of splenectomy. PSYCHIATRIC: + History of anxiety and depression. ENDOCRINOLOGIC: No reports of sweating, cold or heat intolerance. No polyuria orpolydipsia. ALLERGIES: No history of asthma, hives, eczema or rhinitis. Vital Signs Vital Signs Vital Signs: 05/01/23 05:05 Temperature 96.8 F L Temperature Source Temporal Pulse Rate 93 Respiratory Rate 18 Blood Pressure 120/76 Blood Pressure Mean 90 Pulse Ox 96 Oxygen Delivery Method Room Air Physical Exam Narrative Physical Examination: General: Awake, alert, oriented x 3 and cooperative, seated upright in the ED bed, mildly restless, reporting mild tremors and tactile disturbances. Skin: Normal color, normal turgor, no icterus, no cyanosis. HEENT: AT/NC, EOMI, PERRLA, MMM, no carotid bruits or JVD noted. Lungs: CTA bilaterally, moderate effort, mild decrease BL bases, no rales, ronchi or wheezing. Heart: Mildly tachycardic with regular rhythm; no gallop, rub audible. Abdomen: Soft, NTTP, ND, normal BS, no appreciated HSM. Extremities: No cyanosis, clubbing, or edema. Neurological: Patient awake, alert, oriented as noted, cognitive function intact; pupils equally reactive to light and accommodation, cranial nerves II-XII grossly normal, moving all 4 extremities, no focal deficits, strength preserved, mildly restless, very mild tremors noted, subjective tactile disturbances reported per patient. Psychiatric: Affect appears fatigued, mildly restless, no acute evidence of depressive or anxiety feeling but does have underlying history s. Assessment & Plan Assessment/Plan (1) Alcohol withdrawal: PLAN: Plan The patient is a 27 y/o M w/ PMHx: Chart reported Hx Polysubstance abuse (crack/cocaine and amphetamines) although patient currently denying, Tobacco use, EtOH abuse (Lower proof liquor, wine, 24 beers daily/mix), Anxiety and Depression, Asthma, Chronic migraines who presents to [facility] ED on 05/01/23 withlast EtOH intake reported prior to ED arrival but less than his normal with complaint of mild tremors and tactile disturbances otherwise no severe withdrawal symptoms. #1. Acute EtOH Withdrawal: Will admit to [facility], routine labs obtained in the ED upon presentation and pending upon evaluation of patient. Given interest in sobriety, will initiate and continue on protocol with taper course of Phenobarbital, as needed gabapentin, Catapres, Bentyl, Vistaril, IV fluids, IV antiemetics, Tylenol as needed for pain. Will consult Case management for assistance for transition to next level of rehabilitation care. Mag, phos pending. Maintain on CIWA protocol concurrently. #2. Anxiety and depression: Likely in large part contributing to his substance abuse, not currently on any chronic medication, will encourage follow-up for counseling, case management/180 consulted. #3. Polysubstance abuse chart reported: Patient with previous reported history of crack/cocaine, amphetamine usage, currently denying, urine drug screen pending. #4. Chronic migraines: Not on any chronic regimen, will have as needed ibuprofen, plan to as noted hydrate upon admission. #5. Chronic asthma: Encouraged tobacco cessation, PRN albuterol. #6. Tobacco Abuse: Encouraged cessation, inpatient consultation per RT, NR if desired. #7. DVT prophylaxis: Low risk for type admission. Charges/Coding Visit Charges Inpatient E&M: 71954 Init Hosp L2 05/01/23 0550 <Electronically signed by Jacquie Beckwith MD> Cosigner Signature (if applicable): CC: Dr. Jacquie Beckwith MD; No Primary Care Physician~ Signed [facility] Work Phone: Hospital course Narrative No data available for this section [facility] Hospital Discharge instructions* Attachments The following attachments cannot be sent through Care Everywhere. * Chest Pain, Adult ED (Armenian) * Troponin Test (Armenian) * Drug Abuse Treatment (Armenian) * Alcohol Use Disorder ED (Armenian) * Polysubstance Use Disorder (Armenian) * Substance Use Disorder ED (Armenian) documented in this [facility] HealthInstructions* Attachments The following attachments cannot be sent through Care Everywhere. * Flu Discharge Instructions, Adult (Armenian) documented in this [facility] Chief Complaint and Reason for Visit Chief Complaint ETOH DETOX ETOH DETOX Reason for Visit Alcohol abuse Desire for detoxification Chief Complaint ETOH DETOX ETOH DETOX ETOH DETOX ETOH DETOX Reason for Visit Alcohol abuse Desire for detoxification Chief Complaint ALCOHOL WITHDRAWL ALCOHOL WITHDRAWL Reason for Visit Acute alcohol intoxi cation Acute hyperactive alcohol withdrawal delirium Desire for detoxification Chief Complaint ALCOHOL WITHDRAWL ALCOHOL WITHDRAWL ETOH DETOX/WITHDRAWL Reason for Visit Acute hyperactive al cohol withdrawal delirium Alcohol dependence Alcohol withdrawal Chief Complaint ALCOHOL WITHDRAWL ALCOHOL WITHDRAWL ETOH DETOX/WITHDRAWL dizziness Reason for Visit Acute hyperactive al cohol withdrawal delirium Alcohol withdrawal Advance Directives No Advanced Directives Records Found Advance Directive Response Recorded Date/ Time Living Will No August 05, 2022 4:09pm Power of Recycling Or Rubbish Collector No August 05 4:09pm Advance Directive Response Recorded Date/ Time Living Will No August 05, 2022 6:27pm Power of Recycling Or Rubbish Collector No August 05 6:27pm Advance Directive Response Recorded Date/ Time Living Will No March 22 10:56pm Power of Recycling Or Rubbish Collector No March 22, 2023 10:56pm Advance Directive Response Recorded Date/ Time Living Will No March 23 1:01am Power of Recycling Or Rubbish Collector No March 23, 2023 1:01am Advance Directive Response Recorded Date/ Time Living Will No May 01, 2023 5:10am Power of Recycling Or Rubbish Collector No April 30 5:10am Advance Directive Response Recorded Date/ Time Living Will No May 01, 2023 6:45am Power of Recycling Or Rubbish Collector No April 30 6:45am Advance Directive Response Recorded Date/ Time Living Will No June 19, 2023 11 :38pm Power of Recycling Or Rubbish Collector No June 19, 2023 11:38pm Family History No Family History Records Found Relationship Condition Age at Onset Recorded Date/T gilberto uncle Alcohol abuse Unknown grandfather Alcohol abuse Unknown Summary Purpose Additional Source Comments Care Teams (unrecognized sec tion and content) Team Status: Active Member Role Status Dates No Primary Care Physician Primary Care Provider Active Team Status: Active Member Role Status Dates Dr. Fior Ridley MD Emergency Provider Active No Primary Care Physician Primary Care Provider Active Dr. Ashley Hirsch , DO Admit Provider, Att ending Provider, Other Provider Active Team Status: Active Member Role Status Dates Dr. Fior Ridley MD Emergency Provider Active No Primary Care Physician Primary Care Provider Active Dr. Ashley Hirsch DO Admit Provider, Attending Provide r Active Team Status: Active Member Role Status Dates Dr. Fior Ridley MD Emergency Provider Active No Primary Care Physician Primary Care Provider Active Dr. Ashley Hirsch DO Admit Provider, Other Provider Ac tive Dr. Carmelo Albert DO Attending Provider, Other Provid er Active Team Status: Inactive Member Role Status Dates Dr. Fior Ridley MD Emergency Provider Active No Primary Care Physician Primary Care Provider Active Dr. Ashley Hirsch DO Admit Provider, Other Provider Ac tive Dr. Carmelo Albert DO Attending Provider Active Team Status: Active Member Role Status Dates No Primary Care Physician Primary Care Provider Active Dauqan Reid MD Emergency Provider Active Dr. Stan Thomas MD Admit Provider, A ttending Provider, Other Provider Active Team Status: Active Member Role Status Dates No Primary Care Physician Primary Care Provider Active Daquan Reid MD Emergency Provider Active Dr. Stan Thomas MD Admit Provider, Attending Provi manjinder Active Team Status: Inactive Member Role Status Dates No Primary Care Physician Primary Care Provider Active Daquan Reid MD Emergency Provider Active Dr. Stan Thomas MD Admit Provider, Other Provider Active Dr. Jacquie Beckwith MD Attending Provider Active Team Status: Inactive Member Role Status Dates No Primary Care Physician Primary Care Provider Active Daquan Reid MD Emergency Provider Active Dr. Stan Thomas MD Admit Provider, Other Provider Active Dr. Jacquie Beckwith MD Attending Provider, Referring Provider Active Team Status: Active Member Role Status Dates No Primary Care Physician Primary Care Provider Active Dr. Marcio Cardona MD Emergency Provider Active Dr. Jacquie Beckwith MD Admit Provider, Attending Prov ider Active Team Status: Inactive Member Role Status Dates No Primary Care Physician Primary Care Provider Active Dr. Marcio Cardona MD Emergency Provider Active Dr. Jacquie Beckwith MD Admit Provider, Other Provider Active Dr. Carmelo Albert DO Attending Provider Active Team Status: Inactive Member Role Status Dates No Primary Care Physician Primary Care Provider Active Dr. Carmelo Mccray DO Emergency Provider Active Goals (unrecognized section and content) Goals may be documented in a n alternate section No data available for this section (unrecognized sect ion and content) No Status Records FoundNo Status Records FoundNo Status Records FoundNo Status Records FoundNo Status Records Found INFORMATION SOURCE (unrecogn ized section and content) DATE CREATED AUTHOR 06/25/2023 [facility] DATE CREATED AUTHOR AUTHOR'S ORGANIZ ATION 06/28/2023 [facility] ([place]) DATE CREATED AUTHOR AUTHOR'S ORGANIZ ATION 08/02/2023 [facility] DATE CREATED AUTHOR AUTHOR'S ORGANIZ ATION 06/26/2024 [facility] DATE CREATED AUTHOR AUTHOR'S ORGANIZ ATION 09/28/2024 [facility] Reason for Visit (unrecogniz ed section and content) Reason Comments URI Cough /Body ache/ mi graine/stuffy nose /pt stated that he started new medication yesterday and that when he started feeling sick. Reason Comments Extremity Weakness Pt walked in through triage c/o left arm numbness that started today. Pt denies trauma or injury. Neck Pain Pt states left sided neck pain. Pt denies trauma or injury. Reason Comments Extremity Weakness Left arm numbness an d left chest pain x2 days. Was here earlier and left because he felt better. 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 Hx seizures 8-10 tall beers/day Scheduled Active and Recently Administ ered Medications (unrecognized section and content) Medication Order 06/09/2024 06/10/2024 06/11/2024 sodium chloride 0.9 % bolus 1,000 mL (COMPLETED) 1,000 mL, IntraVENous, at 1,000 mL/hr, Administer over 1 Hours, Once, On Kendra 06/11/24 at 0550, For 1 dose 0604 (New Bag - Prov ider: Tash Burt RN)0704 (Stopped - Provider: Holli Walker RN) FOR RECORDS PERTAINING TO PATIENTS WHO ARE OR HAVE BEEN ENROLLED IN A CHEMICAL DEPENDENCY/SUBSTANCEABUSE PROGRAM, SOME INFORMATION MAY BE OMITTED. This clinical summary was aggregated from multiple sources. Caution should be exercised in using it in the provision of clinical care. This summary normalizes information from multiple sources, and as a consequence, information in this document may materially change the coding, format and clinical context of patient data. In addition, data may be omitted in some cases. CLINICAL DECISIONS SHOULD BE BASED ON THE PRIMARY CLINICAL RECORDS. [employer] provides no warranty or guarantee of the accuracy or completeness of information in this document.
[2024-10-01 01:59] VITALS: BP 125/61; PULSE 66; RESP 16; TEMP 36.4; O2SAT 99
[2024-10-01 02:04] VITALS: BP 125/61; PULSE 66; RESP 16; TEMP 36.4; O2SAT 99
[2024-10-01] MEDS: Lactated Ringers 1,000 ML 125 ML IV (02:10)
[2024-10-01 04:41] VITALS: BP 109/61; PULSE 62; RESP 16; TEMP 36.5
[2024-10-01 07:19] LABS: Magnesium 1.8 mg/dL (1.5-2.2)
[2024-10-01 07:54] VITALS: BP 103/56; PULSE 64; RESP 16; TEMP 36.1; O2SAT 99
[2024-10-01] MEDS: Thiamine Hydrochloride 100 MG Tablet PO (08:05)
--- NOTE | 2024-10-01 09:34 | PCM.PN.HOSP ---
Reason for Visit Chief Complaint: EtOH Detoxification. Subjective Subjective Patient is a 28-year-old gentleman admitted with acute alcohol withdrawal Objective Data Objective Data Vital Signs: Vital Signs Temp Pulse Resp BP Pulse Ox O2 Del Method 97.0 F L 64 16 103/56 L 99 Room Air 10/01/24 07:54 10/01/24 07:54 10/01/24 07:54 10/01/24 07:54 10/01/24 07:54 10/01/24 07:54 Oxygen Delivery Method Room Air Weight: 83.461 kg Body Mass Index (BMI) 25.7 Intake & Output: Intake and Output for Last 24 Hours 09/29/24 09/30/24 10/01/24 23:59 23:59 23:59 Intake Total 300 / 300 Balance 300 / 300 Lab / Micro Data Labs: Laboratory Results - last 24 hr 10/01/24 06:15: Phosphorus 4.7 H, Magnesium 1.8 Physical Exam Narrative GENERAL: cooperative HEENT: Atraumatic; normocephalic EYES; Anicteric, Normal Conjunctiva NECK; supple, normal thyroid, RESPIRATORY: Diminished to auscultation CARDIOVASCULAR: Regular S1 S2, GI: soft, normoactive bowel sounds, : No Renal angle tenderness; EXTREMITIES: No edema, no clubbing, MUSCULOSKELETAL: no muscle wasting NEURO: Awake; no lateralizing signs. SKIN: No Rash PSYCH; Flat affect Assessment & Plan Assessment/Plan (1) Admitted to alcohol detoxification center: PLAN: Plan 28-year-old gentleman presented with acute alcohol withdrawal 1. Acute alcohol withdrawal - Patient has been admitted for treatment with phenobarb taper in addition to adjuvant medications including gabapentin, Bentyl, hydroxyzine and clonidine as needed for alcohol withdrawal symptoms. Patient was also placed on thiamine and folic acidConsultation placed to 180 counseling services 2. History of polysubstance dependence ? Patient has previous history of cocaine and amphetamine use continued cessation encouraged 3. Tobacco dependence ? Counseled on cessation, offered nicotine patch for tobacco cravings 4. DVT prophylaxis ? Low risk encourage LMB Charges/Coding Multi Select Codes Visit Charges Visit Charges: 64604 PROLNG IP/OBS E/M EA 15 MIN
[2024-10-01 10:00] VITALS: BP 103/56; PULSE 64; RESP 16; TEMP 36.1; O2SAT 99
--- NOTE | 2024-10-01 12:09 | ADDICTION ---
Attempted to meet with patient. Pt was sleeping. Will meet with pt tomorrow to complete RAMP assessments.
--- NOTE | 2024-10-01 13:45 | CHAPLAIN ---
Type of Pastoral Visit ___ Initial Visit ___ Follow-up Visit ___ On-call Visit ___ General Patient Visit ___ Spiritual Assessment ___ Family Conference ___ Bereavement ___ Rapid Response ___ Code Blue ___ Other (describe below) Pastoral Care Referral From ___ Patient ___ Family ___ Nurse ___ Physician ___ [place] ___ Trapper Bird ___ Other (describe below) Sacrament/Intervention ___ Active listening ___ Anointing ___ Evangelical ___ Bereavement ___ Communion ___ Fiona exploration ___ ___ Life review ___ Prayer ___ Reconciliation ___ Sacrament of Sick ___ Supportive presence ___ Wedding ___ Other (describe below) Pastoral Comments patient was sleepy and difficult to rouse; pt states that he is very tired and would prefer a visit at another time, maybe tomorrow
[2024-10-01 14:00] VITALS: BP 131/73; PULSE 54; RESP 12; TEMP 36.4; O2SAT 98
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
--- NOTE | 2024-10-01 20:48 | PCM.HOSP.N ---
Hospitalist Note Notified despite strong encouragement to stay, offered NR and gum, patient left AMA 10/01/24 8:30 pm.
--- NOTE | 2024-10-02 07:14 | PCM.DC.SUM ---
Providers Date of Admission: 10/01/24 Date of Discharge: 10/01/24 Primary Care Physician: Shelby Primary Care Phys Reason For Visit: ETOH DETOXIFICATION Diagnosis Discharge Diagnosis (1) Admitted to alcohol detoxification center: Status: Acute Plan 28-year-old gentleman presented with acute alcohol withdrawal 1. Acute alcohol withdrawal - Patient has been admitted for treatment with phenobarb taper in addition to adjuvant medications including gabapentin, Bentyl, hydroxyzine and clonidine as needed for alcohol withdrawal symptoms. Patient was also placed on thiamine and folic acidConsultation placed to 180 counseling services ? Patient signed out AGAINST MEDICAL ADVICE yesterday after his admission. Attempt made for patient to rescind his decision. Futile. 2. History of polysubstance dependence ? Patient has previous history of cocaine and amphetamine use continued cessation encouraged 3. Tobacco dependence ? Counseled on cessation, offered nicotine patch for tobacco cravings 4. DVT prophylaxis ? Low risk encourage ambulation Medications at Discharge Home Medications NK 08/05/22 Medical Records Data Homelessness:: Unsheltered Weight / BMI Weight Weight: 83.461 kg Body Mass Index (BMI) 25.7 ABG / Lab / Microbiology Data Laboratory: Laboratory Results - last 24 hr 10/01/24 06:15: Phosphorus 4.7 H, Magnesium 1.8 D/C Instructions Discharge Activity: Return to Normal Activity Call your doctor if you observe: Fever of 101 or Higher, Shortness of breath, Fainting spells and Chest pain DC O2, CPAP, BIPAP Needs Home O2 Discharge instructions: No Meaningful Use Info Meaningful Use Meaningful Use Diagnoses (Choose all that apply): None applicable Discharge Plan Admission Admit Date/Time: 10/01/24 00:22 Primary Reason for Your Visit: Alcohol Detox Attending Provider: Mervin Stephen Primary Care Provider: Care Physician,No Primary Consulting Providers: Jacquie Beckwith Discharge Orders/Prescriptions Prescriptions: No Action NK Referrals / Follow Up: Care Physician,No Primary [Primary Care Provider] - Disposition Disposition (needs filled in before D/C Order can be placed): Against Medical Advice Charges/Coding Visit Charges Inpatient E&M: 70729 Disch Hosp >30min
== END 2024-10-01 20:29 | disposition left against medical advice (07) ==
PROVIDERS: Admitting Provider Family Medicine; Visit Provider Internal Medicine
DX: F10.139 Alcohol abuse with withdrawal, unspecified (principal); F14.20 Cocaine dependence, uncomplicated; F15.20 Other stimulant dependence, uncomplicated; F32.A Depression, unspecified; F17.210 Nicotine dependence, cigarettes, uncomplicated; F17.290 Nicotine dependence, other tobacco product, uncomplicated; F41.9 Anxiety disorder, unspecified; Y90.4 Blood alcohol level of 80-99 mg/100 ml; Z53.29 Procedure and treatment not carried out because of patient's decision for other reasons; J45.909 Unspecified asthma, uncomplicated
CPT/HCPCS: 36415; 83735; 84100; 96360; 96361; 99221; G0378

== ENCOUNTER 2024-10-02 04:05 | Emergency (ER) | payer MEDICAID, SELFPAY ==
[2024-10-02 04:06] VITALS: BP 144/92; PULSE 97; RESP 18; TEMP 36.9; O2SAT 99; BMI 25.4
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
--- NOTE | 2024-10-02 04:26 | ED.RN ---
Pt agreed to have imaging done. After Dr. Colon walked out of room pt walked out a couple of minutes later and stated he did not want to stay and wanted to leave. AMA paper signed by pts and this nurse. [place] given to pt.
--- OUTSIDE RECORDS SUMMARY | 2024-10-02 04:31 | XMS RPT_ITS | CCD ---
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 09/29/2024 23:09 MCHC 36 X10 3 32 - 36 Final EDT 09/29/2024 23:09 RDW/CV 12.0 % 12.0 - 15.6 Final EDT 09/29/2024 23:09 PLATELET 244 x10/UL 150 - 450 Final EDT 09/29/2024 23:09 MPV 7.6 fl 6.4 - 10.5 Final EDT AUTOMATED DIFFERENTIAL 09/29/2024 23:09 NEUT % 62.4 % 46.0 - 76.0 Final EDT 09/29/2024 23:09 LYMPH % 27.1 % 20.0 - 45.0 Final EDT 09/29/2024 23:09 MONOS % 8.1 % 0.0 - 10.0 Final EDT 4 of 11 [facility] - KADE BARRERA, : 1995, , 09/29/2024 23:09 EO % 2.1 % 0.0 - 7.0 Final EDT 09/29/2024 23:09 BASO % 0.3 % 0.0 - 2.0 Final EDT 09/29/2024 23:09 Lymph # 1.71 x10/UL 0.80 - 2.80 Final EDT 09/29/2024 23:09 Neut # 3.94 x10/UL 1.50 - 7.10 Final EDT 09/29/2024 23:09 [place] # 0.51 x10/UL 0.20 - 1.00 Fin (more content not included)... Normal [facility] ED SUPER BILLon 09-30-2024 ED SUPER BILL KADE Morales, : 1995, , [address] [address] [id number] 09/29/2024 Patient: KADE BARRERA Sex: Male : 1995 Age: 28y Item Professional Category Description Facility Code Code Quantity Fee Total Nurse/E/M EMERGENCY [id number] 1 $0.00 $0.00 DEPARTMENT VISIT MODERATE SEVERITY (42332-25) Grand Total $0.00 Providers Rachel Bob D.O. Chief Complaint SUICIDAL THOUGHTS. Principal Diagnosis Anxiety reaction. Uncomplicated alcohol intoxication.No alcohol intoxication with delirium or alcohol dependence. 1 of 2 KADE Morales, : 1995, , ICD-10 Codes F41.1: Generalized anxiety disorder F10.120: Alcohol abuse with intoxication, uncomplicated F10.129: Alcohol abuse with intoxication, unspecified 2 of 2 Normal [facility] ED VISIT SUMMARYon ED VISIT SUMMARY Visit Overview - KADE BARRERA, : 1995, , Visit [address] [place] [address] [id number] 09/29/2024 Patient: KADE BARRERA Sex: Male : 1995 Age: 28y 09/30/2024 02:22 AM EDT ED Arrival:22:27 09/29/2024 EDT Status: Recent Travel:no Language:eng Adv Directive:No Isolation Status: Ethnicity:N Fall Risk:no risk Infectious Disease Exposure:no Measurements:5'11 / 180.3 Self-Harm Status:risk Sepsis Screen:negative cm 174.0 lb / 78.9 kg Chief Complaint:ANXIETY, DELUSIONS, and DEPRESSION ALLERGIES No Known Drug Allergies HOME MEDICATIONS None PAST MEDICAL HISTORY / PROBLEMS Anxiety disorder Depression See nurses notes 1 of 3 Visit Overview - KADE BARRERA, : 1995, , PAST SURGICAL HISTORY No Surgeries SOCIAL HISTORY Smoking status: Yes Alcohol use: Yes Drug use: No ED COURSE MEDICATIONS GIVEN IN EMERGENCY DEPARTMENT IV SITE INFORMATION INTAKE OUTPUT REASSESMENT (most recent) 23:32 09/29/24. GENERAL / NEURO / PSYCH: Alert. Oriented X 4. Appears in no acute distress. Speech within normal limits. Patient's mood/affect appears flat. Patient appears calm and cooperative. Patient appears well-nourished and neat and clean and smells of alcohol. RESPIRATORY: Respirations not labored. Breath sounds within normal limits. CVS: Normal heart rate and rhythm. Capillary refill less than 2 seconds. GI / : Abdomen soft and nontender. Bowel sounds within normal limits. SKIN: Skin intact. Skin is warm and dry. Skin color is within normal limits. VITAL SIGNS First Vitals Last Vitals Temp 22:37 09/29/24 98.7 F Temp 22:37 09/29/24 98.7 F BP 22:37 09/29/24 142/77 BP 22:37 09/29/24 142/77 HR 22:37 09/29/24 104 HR 22:37 09/29/24 104 RR 22:37 09/29/24 16 RR 22:37 09/29/24 16 O2 Sat 22:37 09/29/24 95% O2 Sat 22:37 09/29/24 95% Pain 22:37 09/29/24 0 Pain 22:37 09/29/24 0 ETCO2 22:37 09/29/24 ETCO2 22:37 09/29/24 GCS 22:37 09/29/24 GCS 22:37 09/29/24 2 of 3 Visit Overview - KADE BARRERA, : 1995, , First Vitals Last Vitals RTS 22:37 09/29/24 RTS 22:37 09/29/24 PROCEDURES NURSING INTERVENTIONS LABS / STUDIES LABS / STUDIES ORDERED Acetaminophen Level Blood Alcohol - ETOH CBC w Diff CMP Drug Screen Urine Medic EKG - ED Rapid COVID (SARS) ANTIGEN TEST Salicylate Level Urinalysis CLINICAL IMPRESSION ANXIETY REACTION UNCOMPLICATED ALCOHOL INTOXICATION.NO ALCOHOL INTOXICATION WITH DELIRIUM OR ALCOHOL DEPENDENCE 3 of 3 Normal [facility] ED VITALS FLOW SHEETon 09-30 ED VITALS FLOW SHEET Vitals - KADE GONZALEZ, : 1995, , Vital Sign Flow Sheet [address] [address] [id number] 09/29/2024 Patient: KADE BARRERA Sex: Male : 1995 Age: 28y Measurements Wt: 78.9 kg, Ht/Pedro: 71.0 in, BMI: 24.27 Measured Time BP MAP HR RR O2Sat ETCO2 Temp Pain GCS RTS 22:37 09/29/2024 142/77 99 104 16 95% 98.7 F 0 1 of 1 Normal [facility] SALICYLATEon 09-30-2024 SALICYLATE 3.2 mg/dl Normal 2.8 - 20.0 [facility] Comment on above: Result Comment: *PAT IENTS TREATED WITH SULFASALAZINE MAY GENERATE A FALSE HIGH RESULT FOR SALICYLATE. *PATIENTS TREATED WITH SULFAPYRIDINE MAY GENERATE A FALSE LOW RESULT FOR SALICYLATE. Performed By: #### 2 [id number] #### [facility],[address] [place] [address] ACETAMINOPHENon 09-29-2024 Acetaminophen [Mass/Vol] ug/mL Low 10.0 - 30.0 [facility] Comment on above: Performed By: #### 2 53820 #### [facility],[address] [place] [address] ALCOHOL-BLOOD MEDICALon 09-11 Ethanol [Mass/Vol] 138 mg/dL High 0 - 50 [facility] Comment on above: Performed By: #### 2 20163 ####[facility],[address] [place] [address] CBC + DIFFon 09-29-2024 Baso # 0.02 x10EE3/UL Normal 0.00 - 0.10 [facility] Comment on above: Performed By: #### 2 74857 ####[facility],[address] [place] [address] Basophils/100 WBC (Bld) 0.3 % Normal 0.0 - 2.0 [facility] Comment on above: Performed By: #### 2 51797 ####[facility],[address] [place] [address] CBC + DIFF Normal [facility] Comment on above: Result Comment: CBC- COMPLETE BLOOD COUNT Performed By: #### 2 73254 ####[facility],[address] [place] [address] EO # 0.13 x10EE3/UL Normal 0.00 - 0.50 [facility] Comment on above: Performed By: #### 2 48402 ####[address] [place],[place] [address] Eosinophils/100 WBC (Bld) 2.1 % Normal 0.0 - 7.0 [facility] Comment on above: Performed By: #### 2 02494 ####[facility],[address] [place], [place] [id number] Erythrocyte distribution width (RBC) [Ratio] 12.0 % Normal 12.0 - 15.6 [facility] Comment on above: Performed By: #### 2 82954 ####[facility],[address] [place], [place] [id number] Hematocrit (Bld) [Volume fraction] 42.5 % Normal 40.0 - 52.0 [facility] Comment on above: Performed By: #### 2 45559 ####[place] [address] Hemoglobin (Bld) [Mass/Vol] 15.5 g/dL Normal 13.0 - 17.5 [facility] Comment on above: Result Comment: H AN D H REPEATED Performed By: #### 2 03653 ####[address] [address] Lymph # 1.71 x10EE3/UL Normal 0.80 - 2.80 [facility] Comment on above: Performed By: #### 2 26058 ####[address] [address] Lymphocytes/100 WBC (Bld) 27.1 % Normal 20.0 - 45.0 [facility] Comment on above: Performed By: #### 2 03596 ####[address] [address] MANUAL DIFF N/A Normal [facility] Comment on above: Performed By: #### 2 68127 ####[address] [address] MCH (RBC) [Entitic mass] 36 pg High 27 - 33 [facility] Comment on above: Performed By: #### 2 09601 ####[facility],[address] [place] [address] MCHC 36 X10 3 Normal 32 - 36 [facility] Comment on above: Performed By: #### 2 71898 ####[facility],[address] [place] [address] MCV (RBC) [Entitic vol] 100 fL High 81 - 98 [facility] Comment on above: Performed By: #### 2 32692 ####[facility],[address] [place] [address] [place] # 0.51 x10EE3/UL Normal 0.20 - 1.00 [facility] Comment on above: Performed By: #### 2 64664 ####[facility],[address] [place] [address] MONOS % 8.1 % Normal 0.0 - 10.0 [facility] Comment on above: Performed By: #### 2 40110 ####[facility],[address] [place] [address] Morphology Isacc (Bld) [Interp] N/A Normal [facility] Comment on above: Performed By: #### 2 71663 ####[facility],[address] [place] [address] Neut # 3.94 x10EE3/UL Normal 1.50 - 7.10 [facility] Comment on above: Performed By: #### 2 68278 ####[facility],[address] [place] [address] Neutrophils/100 WBC (Bld) 62.4 % Normal 46.0 - 76.0 [facility] Comment on above: Performed By: #### 2 48890 ####[facility],[address] [place] [address] PLATELET 244 x10EE3/UL Normal 150 - 450 [facility] Comment on above: Performed By: #### 2 95083 ####[facility],[address] [place] [address] Platelet mean volume (Bld) [Entitic vol] 7.6 fL Normal 6.4 - 10.5 [facility] Comment on above: Result Comment: AUTO MATED DIFFERENTIAL Performed By: #### 2 97103 ####[facility],[address] [place] [address] RBC 4.27 x 10EE6/UL Low 4.50 - 6.00 [facility] Comment on above: Performed By: #### 2 15064 ####[facility],[address] [place] [address] WBC 6.3 x 10EE3/UL Normal 4.5 - 10.8 [facility] Comment on above: Performed By: #### 2 17492 ####[facility],[address] [place], [place] [phone] CMP with eGFRon 09-29-2024 AGE 28 years Normal [facility] Comment on above: Performed By: #### 2 52709 #### [facility],[address] [place] [address] Albumin [Mass/Vol] 3.3 g/dL Low 3.4 - 5.0 [facility] Comment on above: Performed By: #### 2 76648 #### [facility],[address] [place], [place] [id number] Albumin/Globulin [Mass ratio] 1.0 {ratio} Normal 0.9 - 1.6 [facility] Comment on above: Performed By: #### 2 61031 #### [facility],[address] [place] [address] ALK PHOS 75 U/L Normal 46 - 116 [facility] Comment on above: Performed By: #### 2 51898 #### [facility],[address] [place] [address] 10393 ALT [Catalytic activity/Vol] 76 U/L High 16 - 63 [facility] Comment on above: Performed By: #### 2 55326 #### [facility],[address] [place] [address] Anion gap [Moles/Vol] 11 mmol/L Normal 10 - 20 [facility] Comment on above: Performed By: #### 2 09041 #### [facility],[address] [place] [address] AST [Catalytic activity/Vol] 49 U/L High 15 - 37 [facility] Comment on above: Performed By: #### 2 09305 #### [facility],[address] [place] [address] B/C RATIO 6 ratio Normal 0 - 30 [facility] Comment on above: Performed By: #### 2 03503 #### [facility],[address] [place] [address] Bilirubin [Mass/Vol] 0.4 mg/dL Normal 0.2 - 1.0 [facility] Comment on above: Performed By: #### 2 61730 #### [facility],[address] [place] [address] Calcium [Mass/Vol] 8.6 mg/dL Normal 8.5 - 10.1 [facility] Comment on above: Performed By: #### 2 26653 #### [facility],[address] [place] [address] Chloride [Moles/Vol] 105 mmol/L Normal 98 - 107 [facility] Comment on above: Performed By: #### 2 72337 #### [facility],[address] [place] [address] CMP with eGFR Normal [facility] Comment on above: Result Comment: COMP REHENSIVE METABOLIC PANEL Performed By: #### 2 87738 #### [facility],[address] [place] [address] CO2 [Moles/Vol] 26.4 mmol/L Normal 21.0 - 32.0 [facility] Comment on above: Performed By: #### 2 87763 #### [facility],[address] [place] [address] Creatinine [Mass/Vol] 0.64 mg/dL Low 0.70 - 1.30 [facility] Comment on above: Performed By: #### 2 76741 #### [place] [address] GFR/1.73 sq M.predicted among non-blacks MDRD (S/P/Bld) [Vol rate/Area] mL/min/{1.73_m2} Normal 60 - 999 [facility] Comment on above: Performed By: #### 2 16872 #### [place] [address] Result Comment: ACCO RDING TO THE NATIONAL KIDNEY DISEASE EDUCATION PROGRAM(NKDE), A NORMAL eGFR IS A VALUE GREATER THAN OR EQUAL TO 60 ML/MIN/1.73 SQ METERS. CHRONIC KIDNEY DISEASE: <60mL/MIN/1.73 SQ METERS KIDNEY FAILURE: <15mL/MIN/1.73 SQ METERS THIS TEST SHOULD ONLY BE USED FOR PATIENTS 18 YEARS OF AGE AND OLDER. Globulin (S) [Mass/Vol] 3.4 g/dL Normal 1.5 - 3.8 [facility] Comment on above: Performed By: #### 2 52020 #### [address] [address] Glucose [Mass/Vol] 116 mg/dL High 74 - 106 [facility] Comment on above: Performed By: #### 2 11276 #### [address] [address] Potassium [Moles/Vol] 3.7 mmol/L Normal 3.5 - 5.1 [facility] Comment on above: Performed By: #### 2 14965 #### [address] [address] Protein [Mass/Vol] 6.7 g/dL Normal 6.4 - 8.2 [facility] Comment on above: Performed By: #### 2 54768 #### [facility],[address] [place] [address] Sodium [Moles/Vol] 139 mmol/L Normal 136 - 145 [facility] Comment on above: Performed By: #### 2 11437 #### [facility],[address] [place] [address] Urea nitrogen [Mass/Vol] 4 mg/dL Low 7 - [facility] Comment on above: Performed By: #### 2 29802 #### [facility],[address] [place] [address] DRUG SCREEN URINE MEDICon AMPHETAMINES Negative Normal [facility] Comment on above: Performed By: #### 2 10820 #### [facility],[address] [place] [address] B-DIAZEPINES Positive Normal [facility] Comment on above: Performed By: #### 2 97331 #### [facility],[address] [place], [place] [phone] BARBITURATES Positive Normal [facility] Comment on above: Performed By: #### 2 66892 #### [facility],[address] [place], [place] [phone] COCAINE Negative Normal [facility] Comment on above: Performed By: #### 2 90879 #### [facility],[address] [place] [address] DRUG SCREEN URINE MEDIC Normal [facility] Comment on above: Result Comment: DRUG SCREEN - URINE Performed By: #### 2 43199 #### [facility],[address] [place] [address] METHADONE Negative Normal [facility] Comment on above: Performed By: #### 2 33539 #### [facility],[address] [place] [address] OPIATES Negative Normal [facility] Comment on above: Performed By: #### 2 15049 #### [facility],[address] [place] [address] PCP Negative Normal [facility] Comment on above: Performed By: #### 2 86595 #### [facility],[address] [place], [place] [id number] THC Negative Normal [facility] Comment on above: Result Comment: CHACORTA ENTS RECEIVING PROTON PUMP INHIBITORS MAY DEMONSTRATE FALSE POSITIVE THC/CANNABINOID RESULTS. AN ALTERNATIVE CONFIRMATORY METHOD SHOULD BE CONSIDERED TO VERIFY POSITIVE RESULTS. Performed By: #### 2 60606 #### [facility],[address] [place], [place] [id number] SALICYLATEon 09-29-2024 SALICYLATE 3.0 mg/dl Normal 2.8 - 20.0 [facility] Comment on above: Result Comment: *PAT IENTS TREATED WITH SULFASALAZINE MAY GENERATE A FALSE HIGH RESULT FOR SALICYLATE. *PATIENTS TREATED WITH SULFAPYRIDINE MAY GENERATE A FALSE LOW RESULT FOR SALICYLATE. Performed By: #### 2 48264 #### [place] [id number] URINALYSISon 09-29-2024 Bilirubin Ql (U) Negative Normal NORMAL: NEGATIVE [facility] Comment on above: Performed By: #### 2 90857 #### [address] [address] Clarity (U) clear Normal NORMAL: CLEAR [facility] Comment on above: Performed By: #### 2 66709 #### [facility],[address] [place] [address]992 Color (U) yellow Normal NORMAL: YELLOW [facility] Comment on above: Performed By: #### 2 77673 #### [address] [address] Glucose Ql (U) NORM Normal NORMAL: NORMAL [facility] Comment on above: Performed By: #### 2 01867 #### [facility],[address] [place] [address] Hemoglobin Ql (U) Negative Normal NORMAL: NEGATIVE [facility] Comment on above: Performed By: #### 2 33385 #### [facility],[address] [place] [address] Ketone Negative Normal NORMAL: NEGATIVE [facility] Comment on above: Performed By: #### 2 19126 #### [facility],[address] [place] [address] Leukocytes Negative Normal NORMAL: NEGATIVE [facility] Comment on above: Performed By: #### 2 90103 #### [facility],[address] [place], [place] [phone] Nitrite Ql (U) Negative Normal NORMAL: NEGATIVE [facility] Comment on above: Performed By: #### 2 52033 #### [facility],[address] [place] [address] pH (U) 6 [pH] Normal NORMAL: 5.0-8.0 [facility] Comment on above: Performed By: #### 2 58313 #### [facility],[address] [place], [place] [phone] Protein Ql (U) Negative Normal NORMAL: NEGATIVE [facility] Comment on above: Performed By: #### 2 88681 #### [facility],[address] [address] [place], [place] [id number] [place] 1.010 Normal NORMAL: 1.010-1.030 [facility] Comment on above: Performed By: #### 2 [id number] #### [facility],[address] [place], [place] [address] Specimen Type R Normal [facility] Comment on above: Performed By: #### 2 [id number] #### [facility],[address] [place], [place] [address] Urinalysis dipstick W Reflex Microscopic panel (U) NOT INDICATED Normal [facility] Comment on above: Performed By: #### 2 16054 #### [facility],[address] [place] [address] 18425 Urobilinog NORM Normal NORMAL: NORMAL [facility] Comment on above: Performed By: #### 2 00170 #### [facility],[address] [place] [address] 76872 ALCOHOL-BLOOD MEDICALon 09-11 Ethanol [Mass/Vol] 191 mg/dL High 0 - 50 [facility] Comment on above: Performed By: #### 2 97778 #### [facility],[address] [place] [address] 80863 CHEST 1 VIEWon 09-28-2024 CHEST 1 VIEW [place] [address] Patient: KDAE BARRERA Phone#: : 1995 Age: 28 Gender: M Pt. Type: ER Account: [id number] Location: [facility] Ordering: RACHEL BOB Exam Date: 09/28/2024/0:27 Family Phys: Charge Code: [id number] Physician: [place] Order #: [id number] Dose#: PROCEDURE: X-RAY CHEST 1 VIEW COMPARISON: None. INDICATIONS: Right sided chest pain. FINDINGS: LUNGS: Normal. No significant pulmonary parenchymal abnormalities. VASCULATURE: Normal. Unremarkable pulmonary vasculature. CARDIAC: Normal. No cardiac silhouette abnormality or cardiomegaly. MEDIASTINUM: Normal. No visible mass or adenopathy. PLEURA: Normal. No effusion or pleural thickening. BONES: Normal. No fracture or visible bony lesion. OTHER: Negative. CONCLUSION: No acute disease. Dictated by: Ethel Marin MD on 09/28/2024 at 1:45 Approved by: Ethel Marin MD on 09/28/2024 at 1:47 Normal [facility] CMP with eGFRon 09-28-2024 AGE 28 years Normal [facility] Comment on above: Performed By: #### 2 [id number] ####[facility],[address] [place] [address] 65480 Albumin [Mass/Vol] 4.0 g/dL Normal 3.4 - 5.0 [facility] Comment on above: Performed By: #### 2 00433 ####[facility],[address] [place] [address] 62941 Albumin/Globulin [Mass ratio] 1.2 {ratio} Normal 0.9 - 1.6 [facility] Comment on above: Performed By: #### 2 02122 ####[facility],[address] [place] [address] 05004 ALK PHOS 79 U/L Normal 46 - 116 [facility] Comment on above: Performed By: #### 2 16053 ####[facility],[address] [place] [address] 07051 ALT [Catalytic activity/Vol] 97 U/L High 16 - 63 [facility] Comment on above: Performed By: #### 2 53847 ####[facility],[address] [place] [address] 78854 Anion gap [Moles/Vol] 14 mmol/L Normal 10 - 20 [facility] Comment on above: Performed By: #### 2 73852 ####[facility],[address] [place] [address] 58747 AST [Catalytic activity/Vol] 111 U/L High 15 - 37 [facility] Comment on above: Performed By: #### 2 56297 ####[facility],[address] [place] [address] 34301 B/C RATIO 4 ratio Normal 0 - 30 [facility] Comment on above: Performed By: #### 2 43454 ####[facility],[address] [place] [address] 66284 Bilirubin [Mass/Vol] 0.3 mg/dL Normal 0.2 - 1.0 [facility] Comment on above: Performed By: #### 2 73417 ####[facility],[address] [place] [address] 33399 Calcium [Mass/Vol] 8.6 mg/dL Normal 8.5 - 10.1 [facility] Comment on above: Performed By: #### 2 86093 ####[facility],[address] [place] [address] 35534 Chloride [Moles/Vol] 104 mmol/L Normal 98 - 107 [facility] Comment on above: Performed By: #### 2 59472 ####[facility],[address] [place] [address] 09181 CMP with eGFR Normal [facility] Comment on above: Result Comment: COMP REHENSIVE METABOLIC PANEL Performed By: #### 2 36849 ####[facility],[address] [place] [address] 72821 CO2 [Moles/Vol] 24.5 mmol/L Normal 21.0 - 32.0 [facility] Comment on above: Performed By: #### 2 31381 ####[facility],[address] [place] [address] 99104 Creatinine [Mass/Vol] 0.69 mg/dL Low 0.70 - 1.30 [facility] Comment on above: Performed By: #### 2 04431 ####[facility],[address] [place] [address] 53713 GFR/1.73 sq M.predicted among non-blacks MDRD (S/P/Bld) [Vol rate/Area] mL/min/{1.73_m2} Normal 60 - 999 [facility] Comment on above: Performed By: #### 2 27448 ####[facility],[address] [place] [address] 61384 Result Comment: ACCO RDING TO THE NATIONAL KIDNEY DISEASE EDUCATION PROGRAM(NKDE), A NORMAL eGFR IS A VALUE GREATER THAN OR EQUAL TO 60 ML/MIN/1.73 SQ METERS. CHRONIC KIDNEY DISEASE: <60mL/MIN/1.73 SQ METERS KIDNEY FAILURE: <15mL/MIN/1.73 SQ METERS THIS TEST SHOULD ONLY BE USED FOR PATIENTS 18 YEARS OF AGE AND OLDER. Globulin (S) [Mass/Vol] 3.3 g/dL Normal 1.5 - 3.8 [facility] Comment on above: Performed By: #### 2 83941 ####[facility],[address] [place] [address] 62176 Glucose [Mass/Vol] 93 mg/dL Normal 74 - 106 [facility] Comment on above: Performed By: #### 2 16555 ####[address] [address] Potassium [Moles/Vol] 3.9 mmol/L Normal 3.5 - 5.1 [facility] Comment on above: Performed By: #### 2 69994 ####[facility],[address] [place] [address] 57630 Protein [Mass/Vol] 7.3 g/dL Normal 6.4 - 8.2 [facility] Comment on above: Performed By: #### 2 11923 ####[address] [address] Sodium [Moles/Vol] 139 mmol/L Normal 136 - 145 [facility] Comment on above: Performed By: #### 2 48887 ####[facility],[address] [place] [address] 49552 Urea nitrogen [Mass/Vol] 3 mg/dL Low 7 - 18 [facility] Comment on above: Performed By: #### 2 93809 ####[facility],[address] [place] [address] BRAIN W/O CONTRASTon 09-11 CT BRAIN W/O CONTRAST [place] [address] Patient: BRUCE KADE Phone#: : 1995 Age: 28 Gender: M Pt. Type: ER Account: [id number] Location: 052 Ordering: RACHEL BOB Exam Date: 09/27/2024:59 Family Phys: Charge Code: [id number] Physician: [place] Order #: [id number] Dose#: 52.3 PROCEDURE: CT BRAIN WITHOUT CONTRAST COMPARISON: None. INDICATIONS: Fall. TECHNIQUE: CT images were obtained without contrast material. All CT scans at this facility use dose modulation, iterative reconstruction, and/or weight based dosing when appropriate to reduce radiation dose to as low as reasonably achievable. IV CONTRAST: No IV contrast used,ml TOTAL DOSE: 52.3 CTDIvol(mGy) FINDINGS: CEREBRUM: No edema, hemorrhage, mass, acute infarction, or inappropriate atrophy. CEREBELLUM: No edema, hemorrhage, mass, acute infarction, or inappropriate atrophy. BRAINSTEM: No edema, hemorrhage, mass, acute infarction, or inappropriate atrophy. CSF SPACES: Ventricles, cisterns, and sulci are appropriate for age. No hydrocephalus, subarachnoid hemorrhage, or mass. SKULL: No mass or other significant visible lesion. SINUSES: Limited views demonstrate no significant mucosal thickening or fluid. ORBITS: Limited views are unremarkable. OTHER: Negative. CONCLUSION: 1. There is no evidence of acute intracranial abnormality. Dictated by: Ethel Marin MD on 09/28/2024 at 0:22 Approved by: Ethel Marin MD on 09/28/2024 at 0:27 Normal [facility] CT CERVICAL W/O CONTRASTon 0 09-28-2024 CT CERVICAL W/O CONTRAST [place] [address] Patient: KADE BARRERA Phone#: : 1995 Age: 28 Gender: M Pt. Type: ER Account: [id number] Location: 052 Ordering: RACHEL BOB Exam Date: 09/27/202423:59 Family Phys: Charge Code: [id number] Physician: [place] Order #: [id number] Dose#: 12.5 PROCEDURE: CT CERVICAL WITHOUT CONTRAST COMPARISON: None. INDICATIONS: Fall. TECHNIQUE: Multi-planar CT images were created without intravenous contrast. All CT scans at this facility use dose modulation, iterative reconstruction, and/or weight-based dosing when appropriate to reduce radiation dose to as low as reasonably achievable. IV CONTRAST: No IV contrast used,ml TOTAL DOSE: 12.50 CTDIvol(mGy) FINDINGS: CRANIOCERVICAL AREA: Normal foramen magnum with no Chiari malformation. PARASPINAL AREA: Normal with no visible mass. BONES: No fracture, pars defect, or osseous lesion. There is straightening of the normal cervical lordosis. CERVICAL DISC LEVELS: C2-C3: No significant disc/facet abnormality, spinal stenosis, or foraminal stenosis. C3-C4: No significant disc/facet abnormality, spinal stenosis, or foraminal stenosis. C4-C5: No significant disc/facet abnormality, spinal stenosis, or foraminal stenosis. C5-C6: No significant disc/facet abnormality, spinal stenosis, or foraminal stenosis. C6-C7: No significant disc/facet abnormality, spinal stenosis, or foraminal stenosis. C7-T1: No significant disc/facet abnormality, spinal stenosis, or foraminal stenosis. CONCLUSION: 1. There is no evidence of acute abnormality. There is straightening of the normal cervical lordosis. Dictated by: Ethel Marin MD on 09/28/2024 at 0:13 Continued Report - Page 2 of 2 Patient: KADE BARRERA Phone#: : 1995 Age: 28 Gender: M Pt. Type: ER Account: [id number] Location: 052 Ordering: RACHEL BOB Exam Date: 09/27/2024/23:59 Family Phys: Charge Code: [id number] Physician: [place] Order #: [id number] Dose#: 12.5 Approved by: Ethel Marin MD on 09/28/2024 at 0:18 Normal [facility] DRUG SCREEN URINE MEDICon AMPHETAMINES Negative Normal [facility] Comment on above: Performed By: #### 2 23030 #### [facility],[address] [place] [address] B-DIAZEPINES Positive Normal [facility] Comment on above: Performed By: #### 2 13798 #### [facility],[address] [place] [address] 69910 BARBITURATES Positive Normal [facility] Comment on above: Performed By: #### 2 41272 #### [facility],[address] [place] [address] 92410 COCAINE Negative Normal [facility] Comment on above: Performed By: #### 2 21010 #### [facility],[address] [place] [address] 13690 DRUG SCREEN URINE MEDIC Normal [facility] Comment on above: Result Comment: DRUG SCREEN - URINE Performed By: #### 2 31991 #### [facility],[address] [place] [address] 70831 METHADONE Negative Normal [facility] Comment on above: Performed By: #### 2 62760 #### [facility],[address] [place] [address] 67802 OPIATES Negative [facility] Comment on above: Performed By: #### 2 11250 #### [facility],[address] [place] [address] 71679 PCP Negative [facility] Comment on above: Performed By: #### 2 78503 #### [facility],[address] [place] [address] 47043 THC Negative [facility] Comment on above: Result Comment: CHACORTA ENTS RECEIVING PROTON PUMP INHIBITORS MAY DEMONSTRATE FALSE POSITIVE THC/CANNABINOID RESULTS. AN ALTERNATIVE CONFIRMATORY METHOD SHOULD BE CONSIDERED TO VERIFY POSITIVE RESULTS. Performed By: #### 2 07066 #### [facility],[address] [place], [place] [address] ED MED ADMINISTRATION DETAIL on 09-28-2024 ED MED ADMINISTRATION DETAIL Electric Blanket Packer - KADE BARRERA, : 1995, , Medication Administration [address] [place] [address] [id number] 09/27/2024 Patient: KADE BARRERA Sex: Male : 1995 Age: 28y MEASUREMENTS: Wt: 78.9 kg, Ht/Pedro: 71.0 in, BMI: 24.27 ALLERGIES: No known drug allergies Medication Ordered Medication Administration Date/Time IV NS 0.9 % 1000 23:50 09/27 IV NS 0.9 % 1000 mL started in bag#1 1000 mL at Started mL at 125 mL/hr 125 mL/hr via Site# 1. Allergies verified and confirmed 5 rights. IV 23:50 09/27/2024 (NOW x1) patency established. IV site checked: no pain, redness, or swelling. Zita York R.N. IV flushed thoroughly pre-medication administration. - 23:51 Zita York R.N. 01:09/28/2024 Zita York R.N. 01:09/28 Medication Discontinued: bag #1 completed. Total Scanned amount infused: 1000 mL. IV patency established. IV site checked: no pain, redness, or swelling. IV flushed thoroughly post-medication administration. - 01:07 Zita York R.N. Tdap IM 23:51 09/27 Tdap IM DIPTH/TETANUS/PERT > 7yr and older 0.5 Given DIPTH/TETANUS/P mL given. (Lot#: [id number], expiration date: 12/10/2026, check airman: 23:51 09/27/2024 ERT > 7yr and older Armor5). Given in the left deltoid. Allergies verified and Zita York R.N. 0.5 mL (NOW x1) confirmed 5 rights. Information reviewed with patient. Vaccine Scanned information statement (09/27/2024) provided to the patient. - 23:51 Zita York R.N. Lidocaine-Epinephr Completed ine 1% Injection 10 00:55 09/28/2024 mL Zita York R.N. 1 of 2 Electric Blanket Packer - KADE BARRERA, : 1995, , Medication Ordered Medication Administration Date/Time Order Comments: 00:55 09/28/[address] Olivier York R.N. 2 of 2 Normal [facility] ED NURSES CLINICAL NOTEon ED NURSES CLINICAL NOTE Nurse Cale - KADE BARRERA, : 1995, , Nurse Clinical Narrative [place] [id number] [facility] [place] [address] [phone] 09/27/2024 23:20:00 Patient: KADE BARRERA Sex: Male : 1995 Age: 28y Disposition: Discharge to Law Enforcement Disposition Decision Time: 00:57 09/28/2024 Departure Time: 01:06 09/28/2024 TRIAGE Arrived by private vehicle. Historian: (patient). Accompanied by police. Primary physician (none). Triage time: 23:40 09/27/2024. Acuity: LEVEL 3. Chief Complaint: FALL: while walking. Landed on head. This occurred at an unknown time. Occurred on the highway. Occurred 22:15 09/27/2024. ( pt states that he is intoxicated at this time). Pre-hospital notification of patient arrival was received. SEPSIS SCREEN: NEGATIVE. SIRS criteria negative. No possible sources of infection. -- 00:06 09/28/24 ALYSHAT Zita [place] R.N. 23:50 09/27/24. BP: 126/85 MAP: 99. HR: 102. RR: 16. O2 saturation: 99% Temperature: 97.7 F. Pain level now 4/10. -- 00:06 09/28/24 MANFRED York R.N. Measurements: 00:06 09/28/24 Wt: 78.9 kg, Ht/Pedro: 71.0 in, BMI: 24.27 -- 00:06 09/28/24 MANFRED York R.N. Medications: no known home medications -- 00:04 09/28/24 MANFRED York R.N. 1 of 4 Nurse Cale - BRUCE KADE, : 1995, , Allergies: no known drug allergies -- 23:50 09/27/24 EDT Zita York R.N. Problems: no known problem -- 00:04 09/28/24 ALYSHAT Zita York R.N. Surgeries: no known surgical history -- 00:04 09/28/24 ALYSHAT Zita York R.N. History 23:40 09/27/24. PAST MEDICAL HX: Immunizations: Tetanus status: unknown. SOCIAL HX: Heavy tobacco smoker- less than 1 pack per day. Heavy alcohol use. No drug use. The patient has not traveled outside the [place] Infectious disease exposure: No infectious disease exposure. ABUSE ASSESSMENT: The patient answered yes to the question(s) Do you feel safe in your home? and no to the question(s) Are you afraid to go home?. SELF HARM ASSESSMENT: Self harm assessment was performed. The patient answered no to the question(s) Have you recently felt down, depressed, or hopeless? and Do you have thoughts of harming or killing yourself?. FALL RISK ASSESSMENT: Fall risk assessment completed. No risk factors identified. -- 00:06 09/28/24 MANFRED York R.N. Interventions 23:40 09/27/24. Identification band on patient. -- 00:06 09/28/24 MANFRED York R.N. PHYSICAL ASSESSMENT 2 of 4 Nurse Narrative - KADE BARRERA, : 1995, , 23:56 09/27/24. Ambulatory to room. GENERAL / NEURO / PSYCH: Alert. Oriented X 4. Appears in no acute distress. The patient smells of alcohol. HEENT: Pupils equal, round and reactive to light. Head: laceration present (back of head). RESPIRATORY: Respirations not labored. CVS: Normal heart rate and rhythm. Cardiac rhythm: normal sinus rhythm. Pulses within normal limits. Capillary refill less than 2 seconds. GI / : Abdomen soft and nontender. EXTREMITIES: Extremities exhibit normal ROM. Neuro-vascular status intact to the extremity. ( c/o right rib and lower back pain). SKIN: Skin is warm and dry. ( laceration to the back of head). -- 00:21 09/28/24 EDT Zita York R.N. NURSING PROGRESS NOTES 23:50 09/27/24. IV NS 0.9 % 1000 mL started in bag#1 1000 mL at 125 mL/hr via Site# 1. Allergies verified and confirmed 5 rights. IV patency established. IV site checked: no pain, redness, or swelling. IV flushed thoroughly pre-medication administration. -- 23:51 09/27/24 ALYSHAT Zita York R.N. 23:51 09/27/24. Tdap IM DIPTH/TETANUS/PERT > 7yr and older 0.5 mL given. (Lot#: [id number], expiration date: 12/10/2026, check airman: Armor5). Given in the left deltoid. Allergies verified and confirmed 5 rights. Information reviewed with patient. Vaccine information statement (09/27/2024) provided to the patient. -- 23:51 09/27/24 ALYSHAT Zita [place] R.N. 00:00 09/28/24. Patient walked to [place] with endoscope technician. (with officers). -- 00:00 09/28/24 MANFRED York R.N. 00:17 09/28/24. 12-LEAD EKG: EKG time: (00:13 09/28/2024). 12-Lead EKG was ordered, performed by me and shown to the ED physician. -- 00:17 09/28/24 MANFRED York R.N. 00:34 09/28/24. Patient transported. (xray completed at bedside). -- 00:34 09/28/24 MANFRED York R.N. 00:56 09/28/24. ( 3 jabier applied to back of head per Dr. Bob). -- 00:56 09/28/24 MANFRED York R.N. DISPOSITION / DISCHARGE 23:46 09/27/24. Site #1 started in the right antecubital space with an 18g needle; 1 attempt. Blood drawn: rainbow set and shipman tube(s). Saline lock flushed with 10 mL saline. -- 23:51 09/27/24 MANFRED York R.N. 01:01 09/28/24. IV NS (more content not included)... Normal [facility] ED ORDER SHEET (CPOE ONLY)on 09-28-2024 ED ORDER SHEET (CPOE ONLY) Order Sheet - KADE BARRERA, : 1995, , Order Sheet [place] [id number] [facility] [place] [address] [phone] 09/27/2024 Patient: KADE BARRERA Sex: Male : 1995 Age: 28y MEASUREMENTS: Wt: 78.9 kg, Ht/Pedro: 71.0 in, BMI: 24.27 ALLERGIES: No known drug allergies MEDICATION/IV/DRIP/FLUI D ORDERS Order Description Priority Entered Acknowledged Completed IV NS 0.9 %1000 mL at 125 23:29 09/27/2024 23:51 mL/hr (NOW x1) Rachel Bob D.O. 09/27/2024 Zita York R.N. Tdap IM DIPTH/TETANUS/PERT 23:31 09/27/2024 23:51 > 7yr and older0.5 mL (NOW x1) Rachel Bob D.O. 09/27/2024 Zita York R.N. Lidocaine-Epinephrine 1% 00:49 09/28/2024 00:55 [id number] mL (NOW x1) Rachel Bob D.O. 09/28/2024 Zita York R.N. Order Comments: 00:55 09/28/2024: Order Completed per Dr. Olivier York R.N. LAB ORDERS Order Description Priority Entered Acknowledged Collected Completed CBC w Diff Stat Stat 23:29 09/27/2024 23:41 09/27/2024 23:52 09/27/2024 1 of 3 Order Sheet - KADE BARRERA, : 1995, , Rosa Frausto R.N. Tessa Miller, R.N. CMP Stat Stat 23:29 09/27/2024 23:41 09/27/2024 23:52 09/27/2024 Rosa Frausto, Raudel York R.N. Troponin-I Stat Stat 23:29 09/27/2024 23:41 09/27/2024 23:52 09/27/2024 Rosa Frausto, Raudel York R.N. EKG - ED Stat Stat 23:29 09/27/2024 23:41 09/27/2024 00:18 09/28/2024 Rosa Frausto, Raudel York, DileepNRowan Lactate, Serum Stat Stat 23:29 09/27/2024 23:41 09/27/2024 23:52 09/27/2024 Rosa Frausto, Raudel York RRowanN. Urinalysis Stat Stat 23:29 09/27/2024 23:41 09/27/2024 00:47 09/28/2024 Rosa Frausto, Raudel York, R.N. Urine Drug Screen Stat Stat 23:31 09/27/2024 23:41 09/27/2024 00:47 09/28/2024 Rosa Frausto, Raudel York, R.N. Blood Alcohol - ETOH Stat 23:31 09/27/2024 23:41 09/27/2024 23:52 09/27/2024 Stat Rosa Frausto, Raudel [place], R.N. DIAGNOSTIC STUDY ORDERS Order Description Priority Entered Acknowledged Completed Chest 1V Stat Stat 23:29 09/27/2024 23:41 00:33 Rachel Bob D.O. 09/27/2024 09/28/2024 Zita Stallings R.N. RRowanN. 2 of 3 Order Sheet - KADE BARRERA, : 1995, , Reason for Study: Trauma/Injury CT Brain wo Cont Stat Stat 23:30 09/27/2024 23:41 00:18 Rachel Bob D.O. 09/27/2024 09/28/2024 Zita Stallings R.N. R.NRowan Reason for Study: Head Injury CT C-Spine wo Cont Stat Stat 23:30 09/27/2024 23:41 00:18 Rachel Bob D.O. 09/27/2024 09/28/2024 Zita Stallings R.N. R.N. Reason for Study: Trauma/Injury STAFF ORDERS Order Description Priority Entered Acknowledged Collected Completed Vital Signs every 30 23:29 09/27/2024 23:41 09/27/2024 23:52 09/27/2024 minutes Rosa Frausto R.N. Tessa Miller, R.N. Chiropractor Sole Practitioner 23:29 09/27/2024 23:41 09/27/2024 00:21 09/28/2024 Rosa Frausto R.N. Tessa Miller, R.N. Oxygen titrate to 92% 23:29 09/27/2024 23:41 09/27/2024 23:52 09/27/2024 Rosa Frausto R.N. Tessa Miller RVenecia [Electronically signed by Rachel Bob D.O. (09/28/2024 01:44 EDT)] 3 of 3 Normal [facility] ED PHYSICIAN CLINICAL REPORT on 09-28-2024 ED PHYSICIAN CLINICAL REPORT Narrative - KADE BARRERA, : 1995, , Physician Clinical Narrative [address] [address] [phone] 09/27/2024 23:20:00 Patient: KADE BARRERA Sex: Male : 1995 Age: 28y Disposition: Discharge to Law Enforcement Disposition Decision Time: 00:57 09/28/2024 Departure Time: 01:06 09/28/2024 Measurements Wt: 78.9 kg, Ht/Pedro: 71.0 in, BMI: 24.27 Initial Vital Sign Measured Time BP MAP HR RR O2Sat ETCO2 Temp Pain GCS RTS 23:50 09/27/2024 126/85 99 102 16 99% 97.7 F 4 Time Seen: 23:18 09/27/2024. Arrived- By ambulance. 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 HISTORY OF PRESENT ILLNESS Chief Complaint: INJURY TO HEAD and INJURY TO NECK. The injury occurred just prior to arrival. Fell. Occurred on a street. The patient complains of moderate pain. The patient sustained a blow to the head. (Fell and struck the back of his head.). The patient complains of mild neck pain and had uncertain duration loss of consciousness. REVIEW OF SYSTEMS GI: No nausea or vomiting. CVS: No chest pain. PSYCHIATRIC: No depression. EYES: No loss of vision. CONSTITUTIONAL: No fever. Has not recently been ill. : No bladder dysfunction. SKIN: The patient 1 of 15 Cale KADE BARRERA, : 1995, , sustained skin laceration. NEUROLOGICAL: No numbness or weakness. RESPIRATORY: No difficulty breathing. PAST HISTORY See nurses notes. no known problem Surgeries: no known surgical history Medications: no known home medications Allergies: no known drug allergies SOCIAL HISTORY Smoker- current status unknown. Regular vaping. Regular alcohol use. ADDITIONAL NOTES The nursing notes have been reviewed. PHYSICAL EXAM Appearance: Alert. No acute distress. Head: Occiput: mild tenderness and swelling and 1.0 cm laceration of the lower central occiput. No abrasion, puncture wound, foreign body or deformity. No avulsion. Eyes: Pupils equal, round and reactive to light. EOM intact. ENT: No dental injury. Pharynx normal. Neck: Mild vertebral tenderness of the mid cervical spine. No palpable step-off. CVS: Heart sounds normal. Pulses normal. Respiratory: Painless inspiration. Breath sounds normal. Chest nontender. Abdomen: Soft and nontender. No organomegaly. Back: No tenderness. ROM normal. 2 of 15 KADE Gautam, : 1995, , Skin: Skin warm and dry. Extremities: Normal inspection. Pelvis stable. Extremities atraumatic. No lower extremity edema. Neuro: Oriented X 3. Mood/affect normal. Speech normal. No motor deficit. Normal gait. No sensory deficit. LABS, X-RAYS, AND EKG 12-LEAD EKG: EKG time: 00:13 09/28/2024. Normal sinus rhythm. Rate: 85. Normal P waves. Normal QRS complex. Normal ST and T waves. The study has been interpreted contemporaneously by me. The EKG appears to be a good tracing. Interpretation time: 00:14 09/28/2024. X-Rays: Chest X-ray negative. Laboratory Tests: CBC + DIFF Final JAIME: 09/27/2024 23:40:00 EDT MsgRcvd: 09/27/2024 23:56 EDT Lab Test Result Reference Status Received 09/27/2024 23:56 CBC + DIFF Final EDT CBC-COMPLETE BLOOD COUNT 09/27/2024 23:56 WBC 9.6 x 10/UL 4.5 - 10.8 Final EDT 09/27/2024 23:56 RBC 4.50 x 10/UL 4.50 - 6.00 Final EDT 09/27/2024 23:56 HEMOGLOBIN 16.4 g/dl 13.0 - 17.5 Final EDT RPT H H CHECK 09/27/2024 23:56 HEMATOCRIT 44.8 % 40.0 - 52.0 Final EDT 100 fl 09/27/2024 23:56 MCV 81 - 98 Final Above high normal EDT 3 of 15 [facility] - KADE BARRERA, : 1995, , 37 pg 09/27/2024 23:56 MCH 27 - 33 Final Above high normal EDT 37 X10 3 09/27/2024 23:56 MCHC 32 - 36 Final Above high normal EDT 09/27/2024 23:56 RDW/CV 12.4 % 12.0 - 15.6 Final EDT 09/27/2024 23:56 PLATELET 318 x10/UL 150 - 450 Final EDT 09/27/2024 23:56 MPV 7.5 fl 6.4 - 10.5 Final EDT AUTOMATED DIFFERENTIAL 09/27/2024 23:56 NEUT % 62.4 % 46.0 - 76.0 Final EDT 09/27/2024 23:56 LYMPH % 29.0 % 20.0 - 45.0 Final EDT 09/27/2024 23:56 MONOS % 7.0 % 0.0 - 10.0 Final EDT 09/27/2024 23:56 EO % 1.4 % 0.0 - 7.0 Final EDT 09/27/2024 23:56 BASO % 0.3 % 0.0 - 2.0 Final EDT 09/27/2024 23:56 Lymph # 2.78 x10/UL 0.80 - 2.80 Final EDT 09/27/2024 23:56 Neut # 5.99 x10/UL 1.50 - 7.10 Final EDT 09/27/2024 23:56 [place] # 0.67 x10/UL 0.20 - 1.00 Final EDT 4 of 15 [facility] - KADE BARRERA, : 1995, , 09/27/2024 23:56 EO # 0.13 x10/UL 0.00 - 0.50 Final EDT 09/27/2024 23:56 Baso # 0.02 x10/UL 0.00 - 0.10 Final EDT (more content not included)... Normal [facility] ED SUPER BILLon 09-28-2024 ED SUPER BILL [facility] - KADE BARRERA, : 1995, , [address] [address] [id number] 09/27/2024 Patient: KADE BARRERA Sex: Male : 1995 Age: 28y Facility Professional Category Item Description Code Code Quantity Fee Total Nurse/E/M EMERGENCY 059450 1 $0.00 $0.00 DEPT VISIT HIGH SEVERITYFUNCJ (58186-46) Nurse/IV/IM/Infusions Hydration initial 682651 1 $0.00 $0.00 (97705) Nurse/Procedures One vaccine 531619 1 $0.00 $0.00 (95292) Physician/Wound Wound Repair [id number] [id number] 1 $0.00 $0.00 Care (84306) Grand $0.00 Total Providers Rachel Bob D.O. Chief Complaint INJURY TO HEAD and INJURY TO NECK. 1 of 2 [facility] - KAED BARRERA, : 1995, , Principal Diagnosis Minor closed head injury. Concussion. Unknown whether a loss of consciousness occurred. No right cerebral injury or right sided epidural hematoma. No left cerebral injury or left sided epidural hematoma. Single superficial laceration to the scalp. No foreign body present. Uncomplicated alcohol intoxication.No alcohol intoxication with delirium or alcohol dependence. ICD-10 Codes S01.01xA: Laceration without foreign body of scalp, initial encounter F10.120: Alcohol abuse with intoxication, uncomplicated F10.129: Alcohol abuse with intoxication, unspecified 2 of 2 [facility] ED VISIT SUMMARYon ED VISIT SUMMARY Visit Overview - KADE BARRERA, : 1995, , Visit [address] [address] [id number] 09/27/2024 Patient: KADE BARRERA Sex: Male : 1995 Age: 28y 09/28/2024 01:44 AM EDT ED Arrival:23:20 09/27/2024 EDT Status: Recent Travel:no Language:eng Adv Directive: Isolation Status: Ethnicity:N Fall Risk:no risk Infectious Disease Exposure:no Measurements:5'11 / 180.3 Self-Harm Status:risk Sepsis Screen:negative cm 174.0 lb / 78.9 kg Chief Complaint:Landed on head, while walking, (22:15 09/27/2024), (none ), and (pt states that he is intoxicated at this time ) ALLERGIES No Known Drug Allergies HOME MEDICATIONS None PAST MEDICAL HISTORY / PROBLEMS Immunizations: Tetanus status: unknown 1 of 3 Visit Overview - KADE BARRERA, : 1995, , None See nurses notes PAST SURGICAL HISTORY No Surgeries SOCIAL HISTORY Smoking status: Yes Alcohol use: Yes Drug use: No ED COURSE MEDICATIONS GIVEN IN EMERGENCY DEPARTMENT 23:50 09/27/24 IV NS 0.9 % 1000 mL 125 mL/hr 23:51 09/27/24 Tdap IM DIPTH/TETANUS/PERT > 7yr and older 0.5 mL IV SITE INFORMATION INTAKE OUTPUT REASSESMENT (most recent) 23:56 09/27/24. Ambulatory to room. GENERAL / NEURO / PSYCH: Alert. Oriented X 4. Appears in no acute distress. The patient smells of alcohol. HEENT: Pupils equal, round and reactive to light. Head: laceration present (back of head). RESPIRATORY: Respirations not labored. CVS: Normal heart rate and rhythm. Cardiac rhythm: normal sinus rhythm. Pulses within normal limits. Capillary refill less than 2 seconds. GI / : Abdomen soft and nontender. EXTREMITIES: Extremities exhibit normal ROM. Neuro-vascular status intact to the extremity. ( c/o right rib and lower back pain). SKIN: Skin is warm and dry. ( laceration to the back of head). VITAL SIGNS First Vitals Last Vitals Temp 23:50 09/27/24 97.7 F Temp 01:01 09/28/24 BP 23:50 09/27/24 126/85 BP 01:01 09/28/24 113/76 2 of 3 Visit Overview - KADE BARRERA, : 1995, , First Vitals Last Vitals HR 23:50 09/27/24 102 HR 01:01 09/28/24 80 RR 23:50 09/27/24 16 RR 01:01 09/28/24 O2 Sat 23:50 09/27/24 99% O2 Sat 01:01 09/28/24 Pain 23:50 09/27/24 4 Pain 01:01 09/28/24 ETCO2 23:50 09/27/24 ETCO2 01:01 09/28/24 GCS 23:50 09/27/24 GCS 01:01 09/28/24 RTS 23:50 09/27/24 RTS 01:01 09/28/24 PROCEDURES NURSING INTERVENTIONS LABS / STUDIES LABS / STUDIES ORDERED Blood Alcohol - ETOH CBC w Diff Chest 1V CMP CT Brain wo Cont CT C-Spine wo Cont EKG - ED Lactate, Serum Troponin-I Urinalysis Urine Drug Screen CLINICAL IMPRESSION MINOR CLOSED HEAD INJURY. CONCUSSION. UNKNOWN WHETHER A LOSS OF CONSCIOUSNESS OCCURRED. NO RIGHT CEREBRAL INJURY OR RIGHT SIDED EPIDURAL HEMATOMA. NO LEFT CEREBRAL INJURY OR LEFT SIDED EPIDURAL HEMATOMA SINGLE SUPERFICIAL LACERATION TO THE SCALP. NO FOREIGN BODY PRESENT UNCOMPLICATED ALCOHOL INTOXICATION.NO ALCOHOL INTOXICATION WITH DELIRIUM OR ALCOHOL DEPENDENCE 3 of 3 Normal [facility] ED VITALS FLOW SHEETon 09-28 ED VITALS FLOW SHEET Vitals - KADE GONZALEZ, : 1995, , Vital Sign Flow Sheet [address] [address] [id number] 09/27/2024 Patient: KADE BARRERA Sex: Male : 1995 Age: 28y Measurements Wt: 78.9 kg, Ht/Pedro: 71.0 in, BMI: 24.27 Measured Time BP MAP HR RR O2Sat ETCO2 Temp Pain GCS RTS 01:01 09/28/2024 113/76 88 80 23:50 09/27/2024 126/85 99 102 16 99% 97.7 F 4 1 of 1 Normal [facility] LACTATEon 09-28-2024 Lactate [Moles/Vol] 1.3 mmol/L Normal 0.4 - 2.0 [facility] Comment on above: Performed By: #### 2 [id number] #### [facility],[address] [place] [address]345 TROPONINon 09-28-2024 HS TROPONIN 10.2 pg/mL Normal 0.0 - 76.2 [facility] Comment on above: Performed By: #### 2 [id number] #### [facility],[address] [place] [address] 38660 URINALYSISon 09-28-2024 Bilirubin Ql (U) Negative Normal NORMAL: NEGATIVE [facility] Comment on above: Performed By: #### 2 83702 ####[facility],[address] [place] [address]80 Clarity (U) clear Normal NORMAL: CLEAR [facility] Comment on above: Performed By: #### 2 86329 ####[facility],[address] [place] [address] 13734 Color (U) yellow Normal NORMAL: YELLOW [facility] Comment on above: Performed By: #### 2 33311 ####[facility],[address] [place] [address]45 Glucose Ql (U) NORM Normal NORMAL: NORMAL [facility] Comment on above: Performed By: #### 2 52753 ####[facility],[address] [place] [address] 16688 Hemoglobin Ql (U) Negative Normal NORMAL: NEGATIVE [facility] Comment on above: Performed By: #### 2 43371 ####[facility],[address] [place] [address] 15949 Ketone Negative Normal NORMAL: NEGATIVE [facility] Comment on above: Performed By: #### 2 76749 ####[facility],[address] [place] [address] 28902 Leukocytes Negative Normal NORMAL: NEGATIVE [facility] Comment on above: Performed By: #### 2 08271 ####[facility],[address] [place] [address] 78178 Nitrite Ql (U) Negative Normal NORMAL: NEGATIVE [facility] Comment on above: Performed By: #### 2 96455 ####[facility],[address] [place] [address] 28233 pH (U) 5 [pH] Normal NORMAL: 5.0-8.0 [facility] Comment on above: Performed By: #### 2 25839 ####[facility],[address] [place] [address] 95913 Protein Ql (U) Negative Normal NORMAL: NEGATIVE [facility] Comment on above: Performed By: #### 2 32341 ####[facility],[address] [place] [address] Sp [place] 1.020 Normal NORMAL: 1.010-1.030 [facility] Comment on above: Performed By: #### 2 02488 ####[facility],[address] [place] [address] 47594 Specimen Type R Normal [facility] Comment on above: Performed By: #### 2 60607 ####[facility],[address] [place] [address] Urinalysis dipstick W Reflex Microscopic panel (U) NOT INDICATED Normal [facility] Comment on above: Performed By: #### 2 44806 ####[facility],[address] [place] [address] Urobilinog NORM Normal NORMAL: NORMAL [facility] Comment on above: Performed By: #### 2 92063 ####[facility],[address] [place], [place] [id number] CBC + DIFFon 09-27-2024 Baso # 0.02 x10EE3/UL Normal 0.00 - 0.10 [facility] Comment on above: Performed By: #### 2 47133 #### [facility],[address] [place] [address] Basophils/100 WBC (Bld) 0.3 % Normal 0.0 - 2.0 [facility] Comment on above: Performed By: #### 2 25074 #### [facility],[address] [place] [address] CBC + DIFF Normal [facility] Comment on above: Result Comment: CBC- COMPLETE BLOOD COUNT Performed By: #### 2 02479 #### [facility],[address] [place] [address] EO # 0.13 x10EE3/UL Normal 0.00 - 0.50 [facility] Comment on above: Performed By: #### 2 72341 #### [facility],[address] [place] [address] Eosinophils/100 WBC (Bld) 1.4 % Normal 0.0 - 7.0 [facility] Comment on above: Performed By: #### 2 74347 #### [facility],[address] [place] [address] Erythrocyte distribution width (RBC) [Ratio] 12.4 % Normal 12.0 - 15.6 [facility] Comment on above: Performed By: #### 2 38931 #### [facility],[address] [place] [address] Hematocrit (Bld) [Volume fraction] 44.8 % Normal 40.0 - 52.0 [facility] Comment on above: Performed By: #### 2 61238 #### [facility],[address] [place] [address] Hemoglobin (Bld) [Mass/Vol] 16.4 g/dL Normal 13.0 - 17.5 [facility] Comment on above: Result Comment: RPT H & H CHECK Performed By: #### 2 16269 #### [facility],[address] [place] [address] Lymph # 2.78 x10EE3/UL Normal 0.80 - 2.80 [facility] Comment on above: Performed By: #### 2 91835 #### [facility],[address] [place], [place] [id number] Lymphocytes/100 WBC (Bld) 29.0 % Normal 20.0 - 45.0 [facility] Comment on above: Performed By: #### 2 82216 #### [facility],[address] [place], [place] [phone] MANUAL DIFF N/A Normal [facility] Comment on above: Performed By: #### 2 51749 #### [facility],[address] [place], [place] [phone] MCH (RBC) [Entitic mass] 37 pg High 27 - 33 [facility] Comment on above: Performed By: #### 2 65509 #### [facility],[address] [place] [address] MCHC 37 X10 3 High 32 - 36 [facility] Comment on above: Performed By: #### 2 63933 #### [facility],[address] [place] [address] MCV (RBC) [Entitic vol] 100 fL High 81 - 98 [facility] Comment on above: Performed By: #### 2 67034 #### [facility],[address] [place] [address] [place] # 0.67 x10EE3/UL Normal 0.20 - 1.00 [facility] Comment on above: Performed By: #### 2 02320 #### [facility],[address] [place] [address] MONOS % 7.0 % Normal 0.0 - 10.0 [facility] Comment on above: Performed By: #### 2 74855 #### [facility],[address] [place] [address] Morphology Isacc (Bld) [Interp] N/A Normal [facility] Comment on above: Performed By: #### 2 77811 #### [facility],[address] [place] [address] Neut # 5.99 x10EE3/UL Normal 1.50 - 7.10 [facility] Comment on above: Performed By: #### 2 90220 #### [place] [address] Neutrophils/100 WBC (Bld) 62.4 % Normal 46.0 - 76.0 [facility] Comment on above: Performed By: #### 2 56032 #### [facility],[address] [place], [place] [phone] PLATELET 318 x10EE3/UL Normal 150 - 450 [facility] Comment on above: Performed By: #### 2 79056 #### [facility],[address] [place], [place] [phone] Platelet mean volume (Bld) [Entitic vol] 7.5 fL Normal 6.4 - 10.5 [facility] Comment on above: Result Comment: AUTO MATED DIFFERENTIAL Performed By: #### 2 18017 #### [facility],[address] [place] [address] RBC 4.50 x 10EE6/UL Normal 4.50 - 6.00 [facility] Comment on above: Performed By: #### 2 73688 #### [facility],[address] [place], [place] [phone] WBC 9.6 x 10EE3/UL Normal 4.5 - 10.8 [facility] Comment on above: Performed By: #### 2 69845 #### [facility],[address] [place] [address] ED Nursing Noteon 06-24-2024 ED Nursing Note Attempted to call pt three times for triage. Unable to locate pt Normal [facility] BASIC METABOLIC PANELon 05-0 Anion gap [Moles/Vol] 8 mmol/L Normal 3-13 [facility] Comment on above: Performed By: #### Silvina NICOLAS15, [id number], LAB46, LAB62 ####[employer] Administrator Developer: DIONNA JIMENEZ ([id number])[facility] ([facility])[address] [place] [address] Calcium [Mass/Vol] 8.4 mg/dL Normal 8.4-10.2 [facility] Comment on above: Performed By: #### L AB15, [id number], LAB46, LAB62 ####[employer] Administrator Developer: DIONNA JIMENEZ ([id number])[facility] ([facility])[address] [place] [address] Chloride [Moles/Vol] 108 mmol/L High 98-107 [facility] Comment on above: Performed By: #### L AB15, [id number], LAB46, LAB62 ####[employer] Administrator Developer: DIONNA JIMENEZ ([id number])[facility])[address] [place] [address] CO2 [Moles/Vol] 21 mmol/L Low 22-29 [facility] Comment on above: Performed By: #### L AB15, [id number], LAB46, LAB62 ####[employer] Administrator Developer: DIONNA JIMENEZ ([id number])[facility] ([facility])[address] [place] [address] Creatinine [Mass/Vol] 0.67 mg/dL Low 0.72-1.25 [facility] Comment on above: Performed By: #### L AB15, [id number], LAB46, LAB62 ####[employer] Administrator Developer: DIONNA JIMENEZ ([phone])[facility])[address] [place] [address] GLOMERULAR FILTRATION RATE ML/MIN/1.73 SQ M.PREDICTED >90.0 Normal >60.0 [facility] Comment on above: Result Comment: Calc ulation based on the Chronic Kidney Disease Epidemiology Collaboration (CKD-EPI) equation refit without adjustment for race Performed By: #### L AB15, [id number], LAB46, LAB62 ####[employer] Administrator Developer: DIONNA JIMENEZ ([id number])[facility] ([facility])[address] [place] [address] Glucose [Mass/Vol] 113 mg/dL High 74-100 [facility] Comment on above: Performed By: #### L AB15, [id number], LAB46, LAB62 ####[employer] Administrator Developer: DIONNA JIMENEZ ([id number])[facility])[address] [place] [address] Potassium [Moles/Vol] 3.5 mmol/L Normal 3.5-5.1 [facility] Comment on above: Result Comment: [facility] potassium values may be up to 0.5 mmol/L lower than serum values. Performed By: #### L AB15, [id number], LAB46, LAB62 ####[employer] Administrator Developer: DIONNA JIMENEZ ([id number])[facility])[address] [place] [address] Sodium [Moles/Vol] 137 mmol/L Normal 136-145 [facility] Comment on above: Performed By: #### L AB15, [id number], LAB46, LAB62 ####[employer] Administrator Developer: DIONNA JIMENEZ ([id number])[facility] ([facility])[address] [place] [address] Urea nitrogen [Mass/Vol] 5 mg/dL Low 8-21 [facility] Comment on above: Performed By: #### L AB15, [id number], LAB46, LAB62 ####[employer] Administrator Developer: DIONNA JIMENEZ ([id number])[address] Basic metabolic 1998 panelon 06-11-2024 Anion gap [Moles/Vol] 8 mmol/L 3 - 13 mmol/L [facility] Calcium [Mass/Vol] 8.4 mg/dL 8.4 - 10. 2 mg/dL [facility] Chloride [Moles/Vol] 108 mmol/L High 98 - 10 7 mmol/L [facility] CO2 [Moles/Vol] 21 mmol/L Low 22 - 29 mmol/L [facility] Creatinine [Mass/Vol] 0.67 mg/dL Low 0.72 - 1.25 mg/dL [facility] GFR/1.73 sq M.predicted (S/P/Bld) [Vol rate/Area] - PINF [facility] Comment on above: Calculation based on the Chronic Kidney Disease Epidemiology Collaboration (CKD-EPI) equation refit without adjustment for race Glucose [Mass/Vol] 113 mg/dL High 74 - 100 mg/dL [facility] Potassium [Moles/Vol] 3.5 mmol/L 3.5 - 5.1 mmol/L [facility] Comment on above: Plasma potassium steph ues may be up to 0.5 mmol/L lower than serum values. Sodium [Moles/Vol] 137 mmol/L 136 - 145 mmol/L [facility] Urea nitrogen [Mass/Vol] 5 mg/dL Low 8 - 21 mg/dL [facility] [employer] CBC W Auto Differential pane l (Bld)Ordered By: Ludwin Cordova on 06-11-2024 Basophils (Bld) [#/Vol] 0.1 10*3/uL 0.0 - 0.2 10*3/uL [facility] Basophils/100 WBC (Bld) 1.9 % 0.0 - 2.0 % [facility] Eosinophils (Bld) [#/Vol] 0.1 10*3/uL 0.0 - 0.5 10*3/uL [facility] Eosinophils/100 WBC (Bld) 2.3 % 0.0 - 6.0 % [facility] Erythrocyte distribution width (RBC) [Ratio] 12.7 % 11.5 - 15.0 % [facility] Hematocrit (Bld) [Volume fraction] 41.5 % 40.0 - 52.0 % [facility] Hemoglobin (Bld) [Mass/Vol] 15.4 g/dL 13.0 - 18.0 g/dL [facility] [employer] Immature granulocytes (Bld) [#/Vol] 0 10*3/uL NINF - 0.1 10*3/uL [facility] Immature granulocytes/100 WBC (Bld) 0.2 % 0.0 - 2.0 % [facility] Interpretation and review of laboratory results Abnormal [facility] Lymphocytes (Bld) [#/Vol] 1.8 10*3/uL 1.0 - 4.3 10*3/uL [facility] Lymphocytes/100 WBC (Bld) 34.8 % 15.0 - 45.0 % [facility] MCH (RBC) [Entitic mass] 33.7 pg 26.0 - 34.[address] [facility] MCHC (RBC) [Mass/Vol] 37.1 % High 30.5 - 36.0 % [facility] MCV (RBC) [Entitic vol] 90.8 fL 77.0 - 99.[address] [facility] Monocytes (Bld) [#/Vol] 0.5 10*3/uL 0.0 - 0.9 10*3/uL [facility] Monocytes/100 WBC (Bld) 9.1 % 5.0 - 13.0 % [facility] Neutrophils (Bld) [#/Vol] 2.7 10*3/uL 1.8 - 7.5 10*3/uL [facility] Neutrophils/100 WBC (Bld) 51.7 % 38.0 - 82.0 % [facility] Nucleated RBC/100 WBC (Bld) [Ratio] 0 % [facility] Platelet mean volume (Bld) [Entitic vol] 9.8 fL 9.0 - 12.[address] [facility] Platelets (Bld) [#/Vol] 226 10*3/uL 140 - 440 10*3/uL [facility] RBC (Bld) [#/Vol] 4.57 10*6/uL 4.40 - 5.9 0 10*6/uL [facility] WBC (Bld) [#/Vol] 5.2 10*3/uL 3.6 - 10.7 10*3/uL [facility] CBC WITH AUTO DIFFERENTIALon 06-11-2024 Basophils (Bld) [#/Vol] 0.1 10*3/uL Normal 0.0-0.2 [facility] Comment on above: Performed By: #### L [id number] #### [employer] Administrator Developer: DIONNA JIMENEZ ([id number]) [facility] ([facility]) [address] [place] [address] Basophils/100 WBC (Bld) 1.9 % Normal 0.0-2.0 [facility] Comment on above: Performed By: #### L [id number] #### [employer] Administrator Developer: DIONNA JIMENEZ ([id number]) [facility] ([facility]) [address] [place] [address] [place] Eosinophils (Bld) [#/Vol] 0.1 10*3/uL Normal 0.0-0.5 [facility] Comment on above: Performed By: #### L [id number] #### [employer] Administrator Developer: DIONNA JIMENEZ ([id number]) [facility] ([facility]) [address] [place] [address] [place] Eosinophils/100 WBC (Bld) 2.3 % Normal 0.0-6.0 [facility] Comment on above: Performed By: #### L [id number] #### [employer] Administrator Developer: DIONNA [id number]) [facility] ([facility]) [address] [place] [address] Erythrocyte distribution width (RBC) [Ratio] 12.7 % Normal 11.5-15.0 [facility] Comment on above: Performed By: #### L [id number] #### [employer] Administrator Developer: DIONNA JIMENEZ ([id number]) [facility]) [address] [place] [address] Hematocrit (Bld) [Volume fraction] 41.5 % Normal 40.0-52.0 [facility] Comment on above: Performed By: #### L [id number] #### Servicen[employer] Administrator Developer: DIONNA JIMENEZ ([id number]) [facility]) [address] [place] [address] Hemoglobin (Bld) [Mass/Vol] 15.4 g/dL Normal 13.0-18.0 [facility] Comment on above: Performed By: #### L [id number] #### Servic[employer] Administrator Developer: DIONNA JIMENEZ ([id number]) [facility] ([facility]) [address] [place] [address] IMMATURE GRANS % 0.2 % Normal 0.0-2.0 [facility] Comment on above: Performed By: #### L [id number] #### Serv[employer] Administrator Developer: DIONNA JIMENEZ ([id number]) [facility]) [address] [place] [address] IMMATURE GRANS ABSOLUTE 0.0 10*3/uL Normal <0.1 [facility] Comment on above: Performed By: #### L [id number] #### Serv[employer] Administrator Developer: DIONNA JIMENEZ ([id number]) [facility] ([facility]) [address] [place] [address] Lymphocytes (Bld) [#/Vol] 1.8 10*3/uL Normal 1.0-4.3 [facility] Comment on above: Performed By: #### L [id number] #### [employer] Administrator Developer: DIONNA JIMENEZ ([id number]) [facility]) [address] [place] [address] Lymphocytes/100 WBC (Bld) 34.8 % Normal 15.0-45.0 [facility] Comment on above: Performed By: #### L [id number] #### Serv[employer] Administrator Developer: DIONNA JIMENEZ ([id number]) [facility]) [address] [place] [address] MCH (RBC) [Entitic mass] 33.7 pg Normal 26.0-34.0 [facility] Comment on above: Performed By: #### L [id number] #### Serv[employer] Administrator Developer: DIONNA JIMENEZ ([id number]) [facility]) [address] [place] [address] MCHC 37.1 % High 30.5-36.0 [facility] Comment on above: Performed By: #### L [id number] #### Serv[employer] Administrator Developer: DIONNA JIMENEZ ([id number]) [facility]) [address] [place] [address] MCV (RBC) [Entitic vol] 90.8 fL Normal 77.0-99.0 S [facility] Comment on above: Performed By: #### L [id number] #### Servicen[employer] Administrator Developer: DIONNA JIMENEZ ([id number]) [facility]) [address] [place] [address] Monocytes (Bld) [#/Vol] 0.5 10*3/uL Normal 0.0-0.9 [facility] Comment on above: Performed By: #### L [id number] #### Servic[employer] Administrator Developer: DIONNA JIMENEZ ([id number]) [facility]) [address] [place] [address] Monocytes/100 WBC (Bld) 9.1 % Normal 5.0-13.0 S [facility] Comment on above: Performed By: #### L [id number] #### Serv[employer] Administrator Developer: DIONNA JIMENEZ ([id number]) [facility]) [address] [place] [address] NEUTROPHILS ABSOLUTE 2.7 10*3/uL Normal 1.8-7.5 [facility] Comment on above: Performed By: #### L [id number] #### Servicen[employer] Administrator Developer: DIONNA JIMENEZ ([id number]) [facility]) [address] [place] [address] Neutrophils/100 WBC (Bld) 51.7 % Normal 38.0-82.0 [facility] Comment on above: Performed By: #### L [id number] #### Servic[employer] Administrator Developer: DIONNA JIMENEZ ([id number]) [facility] ([facility]) [address] [place] [address] NRBC 0.0 /100 WBCs Normal 0.0-2.0 [facility] Comment on above: Performed By: #### L [id number] #### Servic[employer] Administrator Developer: DIONNA JIMENEZ ([id number]) [facility] ([facility]) [address] [place] [address] Platelet mean volume (Bld) [Entitic vol] 9.8 fL Normal 9.0-12.7 [facility] Comment on above: Performed By: #### L [id number] #### Servic[employer] Administrator Developer: DIONNA JIMENEZ ([id number]) [facility] ([facility]) [address] [place] [address] Platelets (Bld) [#/Vol] 226 10*3/uL Normal 140-440 [facility] Comment on above: Performed By: #### L [id number] #### Serv[employer] Administrator Developer: DIONNA JIMENEZ ([id number]) [facility] ([facility]) [address] [place] [address] RBC (Bld) [#/Vol] 4.57 10*6/uL Normal 4.40-5.90 [facility] Comment on above: Performed By: #### L [id number] #### Servicen[employer] Administrator Developer: DIONNA JIMENEZ ([id number]) [facility] ([facility]) [address] [place] [address] [place] WBC (Bld) [#/Vol] 5.2 10*3/uL Normal 3.6-10.7 [facility] Comment on above: Performed By: #### L [id number] #### Servicen[employer] Administrator Developer: DIONNA JIMENEZ ([id number]) [facility]) [address] [place] [address] [place] CKon 06-11-2024 CK [Catalytic activity/Vol] 247 U/L High 30-185 [facility] Comment on above: Performed By: #### L [id number], [id number], [id number], [id number] ####Serv[employer] Administrator Developer: DIONNA JIMENEZ ([id number])[facility])[address] [place] [address] DRUGS OF ABUSEon 06-11-2024 AMPHETAMINE SCREEN Positive Normal [facility] Comment on above: Performed By: #### L [id number] ####Serv[employer] Administrator Developer: DIONNA JIMENEZ ([id number])[facility])[address] [place] [address] BARBITURATES SCREEN Positive Normal [facility] Comment on above: Performed By: #### L [id number] ####Servic[employer] Administrator Developer: DIONNA JIMENEZ ([id number])[facility])[address] [place] [address] BENZODIAZEPINE SCREEN Negative Normal [facility] Comment on above: Performed By: #### L [id number] ####Servicen[employer] Administrator Developer: DIONNA JIMENEZ ([id number])[facility])[address] [place] [address] COCAINE METAB. SCREEN Negative Normal [facility] Comment on above: Performed By: #### L [id number] ####Servicen[employer] Administrator Developer: DIONNA JIMENEZ ([id number])[facility])[address] [place] [address] FENTANYL SCREEN, UR QUAL Negative Normal [facility] Comment on above: Result Comment: ORDE R COMMENTS: The expected value for all of the drugs listed above is Negative. The following drugs or drug groups have been screened for by Immunoassay at the following thresholds: Amphetamine class (1000 ng/mL) Barbiturates (200 ng/mL) Benzodiazepines (200 ng/mL) Cocaine (300 ng/mL) Methadone (300 ng/mL) Opiates (300 ng/mL) Oxycodone (100 ng/mL) PCP (25 ng/mL) Fentanyl (1.0 ng/ml) NOTE: These results are for medical treatment only. Analysis performed using non-forensic procedures. POSITIVE results are NOT confirmed by a more specific alternative method unless requested. If confirmation is needed, request confirmation under separate order. Performed By: #### L [id number] ####Serv[employer] Administrator Developer: DIONNA JIMENEZ ([id number])[facility] ([facility])[address] [place] [address] METHADONE SCREEN Negative Normal [facility] Comment on above: Performed By: #### L [id number] ####Servicenow Administrator Developer: DIONNA JIMENEZ ([id number])[facility] ([facility])[address] [place] [address] OPIATES SCREEN Negative Normal [facility] Comment on above: Performed By: #### L [id number] ####Servicenow Administrator Developer: DIONNA JIMENEZ ([id number])[facility] ([facility])[address] [place] [address] OXYCODONE SCREEN Negative Normal [facility] Comment on above: Performed By: #### L [id number] ####Servicenow Administrator Developer: DIONNA JIMENEZ ([id number])[facility] ([facility])[address] [place] [address] PHENCYCLIDINE SCREEN Negative Normal [facility] Comment on above: Performed By: #### L [id number] ####Servicenow Administrator Developer: DIONNA JIMENEZ ([id number])[facility] ([facility])[address] [place] [address] ECG 12-LEADon 06-11-2024 ECG 12-LEAD IMPRESSION: Pacemaker spikes or artifacts Sinus rhythm Electronically Signed On 06-11-2024 10:13:28 EDT by Mike Wright [facility] ED Nursing Noteon 06-11-2024 ED Nursing Note Report given to Larry broderick RN. [facility] ED Nursing Note Pt ambulated independently back and forth to the restroom. 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 Normal [facility] ED Nursing Note Pt heading to [facility] transport. Normal [facility] ED Provider Noteon ED Provider Note EMERGENCY DEPARTMENT ENCOUNTER Pt Name: Kade Barrera Birthdate 1995 Date of evaluation: 06/11/2024 ED Provider: Easton Dahl, REGENERATOR OPERATOR - TELETRAY OPERATOR Patient seen independently within my scope of practice with an Emergency Medicine attending available for supervision. CHIEF COMPLAINT Chest Pain Chief Complaint Patient presents with Extremity Weakness Left arm numbness and left chest pain x2 days. Was here earlier and left because he felt better. 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 Hx seizures 8-10 tall beers/day HISTORY OF PRESENT ILLNESS (Location/Symptom, Timing/Onset, Context/Setting, Quality, Duration, Modifying Factors, Severity) Note limiting factors. I wore appropriate PPE for the entirety of this encounter. HPI Kade Barrera is a 28 y.o. who presents to the emergency department chest pain patient reported that he was here 2 days ago for similar symptoms. He was here earlier today and he left because he felt that he was detoxing from methamphetamines. Patient states that he drinks alcohol does methamphetamine and he also drinks beer. Patient denies any fever or chills. He denies any other substances. He denies any problems or urination frequency urgency burning discharge. He denies any abdominal discomfort nausea vomiting diarrhea constipation fever chills. Patient has a psychiatric history as well. Nursing Notes were reviewed. Limitations to history: None Outside historians: None REVIEW OF SYSTEMS Review of Systems GENERAL: Denies weight change, fatigue, weakness, fever HEENT: Denies trauma, headache, dizziness, visual change, ear pain, hearing change, tinnitus, rhinorrhea CARDIAC: Denies hypertension, murmur, angina, palpations, dyspnea on exertion, edema RESPIRATORY: Denies shortness of breath, wheezing, cough, sputum, asthma, COPD GI: Denies nausea, vomiting, change in bowels, abdominal pain URINARY: Denies changes in frequency/urgency, hematuria, incontinence, flank pain MUSCULOSKELETAL: Denies weakness, pain, change in ROM, redness, swelling NEURO: Denies loss in sensation, tingling, tremors, weakness, fainting or seizures ENDO: Denies heat/cold intolerance, polyuria, polydipsia, or swelling around neck PSYCH: Denies changes in mood, anxiety, depression, tension, memory Pertinent positives and negatives as per HPI. PAST MEDICAL HISTORY No past medical history on file. SURGICAL HISTORY No past surgical history on file. CURRENT MEDICATIONS Previous Medications CLONIDINE (CATAPRES) 0.1 MG TABLET Take 0.1 mg by mouth 2 times daily. RISPERIDONE (RISPERDAL M-TAB) 0.5 MG DISINTEGRATING TABLET Take 0.5 mg by mouth 2 times daily. ALLERGIES Patient has no known allergies. FAMILY HISTORY No family history on file. SOCIAL HISTORY Social History Socioeconomic History Marital status: Single SCREENINGS Carol Coma Scale Best Eye Response: Spontaneous Best Verbal Response: Oriented Best Motor Response: Follows commands Carol Coma Scale Score: 15 HEART Score History: Slightly suspicious ECG: Normal Age: <45 Risk Factors: 1-2 risk factors Troponin: Less than or equal to normal limit HEART Score: 1 NIH Stroke Scale 1A. Level of Consciousness: Alert, Keenly Responsive 1B. Ask Month and Age: Both Questions Right 1C. Blink Eyes & Squeeze Hands: Performs Both Tasks 2. Best Gaze: Normal 3. Visual: No Visual Loss 4. Facial Palsy: Normal Symmetrical Movements 5A. Motor - Left Arm: No Drift 5B. Motor - Right Arm: No Drift 6A. Motor - Left Leg: No Drift 6B. Motor - Right Leg: No Drift 7. Limb Ataxia: Absent 8. Sensory Loss: Normal 9. Best Language: No Aphasia 10. Dysarthria: Normal 11. Extinction and Inattention: No Abnormality NIH Stroke Scale: 0 Test of skew negative Gait steady without deficit PHYSICAL EXAM ED Triage Vitals [06/11/24 0418] Temp Heart Rate Resp BP 36.3 ?C (97.3 ?F) 101 18 (!) 149/99 SpO2 Temp Source Heart Rate Source Patient Position 96 % Temporal Monitor -- BP Location FiO2 (%) -- -- Physical Exam Constitutional: Well developed, well nourished, no acute distress, non-toxic appearance Eyes: PERRL, conjunctiva normal HENT: Atraumatic, external ears normal, nose normal, oropharynx moist, no pharyngeal exudates. Neck- normal range of motion, no tenderness, supple Respiratory: No respiratory distress, normal breath sounds, no rales, no wheezing Cardiovascular: Normal rate, normal rhythm, no murmurs, no gallops, no rubs GI: Soft, nondistended, normal bowel sounds, nontender, no organomegaly, no mass, no rebound, no guarding : No costovertebral angle tenderness Musculoskeletal: No edema, no tenderness, no deformities. Back- no tenderness Integument: Well hydrated, no rash Lymphatic: No lymphadenopathy noted Neurologic: Alert & oriented x 3, CN 2-12 normal, normal motor function, normal sensory function, no focal deficits noted Psychia (more content not included)... Normal [facility] ETHANOLon 06-11-2024 ETHANOL IN SER/PLAS <10 Normal <10 [facility] Comment on above: Result Comment: MARTA R COMMENTS: COOK FISH EGGS depression is seen >100 mg/dL. NOTE: This result is for medical treatment only. Analysis performed using non-forensic procedures. Performed By: #### L [id number], [id number], [id number], [id number] ####Servicenow Administrator Developer: DIONNA JIMENEZ ([phone])[facility] ([facility])[address] [place] [address] Ethanol (Bld) [Mass/Vol]on 0 06-11-2024 Ethanol [Mass/Vol] mg/dL NINF - 10 mg/dL [facility] Interpretation and review of laboratory results Normal [facility] COOK FISH EGGS depression is se en >100 mg/dL. NOTE: This result is for medical treatment only. Analysis performed using non-forensic procedures. [facility] HIGH SENSITIVITY TROPONIN, S ERIAL BASELINEon 06-11-2024 TROPONIN HS SERIAL BASELINE <3 Normal <=35 [facility] Comment on above: Result Comment: In i ndividuals presenting with symptoms > 2h, a baseline troponin <= 5 ng/L suggests acute cardiac injury is unlikely and further serial testing is generally not indicated. Performed By: #### L [id number], [id number], [id number], LAB62 ####Servicenow Administrator Developer: DIONNA JIMENEZ ([id number])[facility] ([facility])[address] [place] [address] Laboratory - Chemistry and C hemistry - challengeon 06-11-2024 CK [Catalytic activity/Vol] 247 U/L High 30 - 185 U/L [facility] Laboratory - Drug toxicology on 06-11-2024 Amphetamines Screen method >1000 ng/mL Ql (U) Positive [facility] Barbiturates Screen method >200 ng/mL Ql (U) Positive [facility] Benzodiazepines Ql (U) Negative [facility] Methadone Screen Ql (U) Negative S [facility] Opiates Screen Ql (U) Negative [facility] oxyCODONE Ql (U) Negative [facility] alth Phencyclidine Ql (U) Negative [facility] No Panel InformationOrdered By: Mike Wright on 06-11-2024 P Lejunior 67 degrees [facility] [employer] Work Phone: AR Interval 139 ms [facility] [employer] Work Phone: QRS Lejunior 80 degrees [facility] [employer] Work Phone: QRSD Interval 95 ms [facility] Work Phone: QT Interval 334 ms [facility] [employer] Work Phone: QTC Interval 418 ms [facility] [employer] Work Phone: T Wave Lejunior 52 degrees [facility] [employer] Work Phone: [facility] [employer] Work Phone: No Panel Informationon 06-11 Pacemaker spikes or artifacts Sinus rhythm Electronically Signed On 06-11-2024 10:13:28 EDT by Mike Wright CV Mike Angela MD - 06/11/2024 IMPRESSION: Pacemaker spikes or artifacts Sinus rhythm Electronically Signed On 06-11-2024 10:13:28 EDT by Mike Wright [facility] Interpretation and review of laboratory results Normal [facility] Troponin HS Serial Baseline ng/L NINF - 35 ng/L [facility] Comment on above: In individuals prese nting with symptoms > 2h, a baseline troponin <= 5 ng/L suggests acute cardiac injury is unlikely and further serial testing is generally not indicated. [facility] Interpretation and review of laboratory results Abnormal [facility] COCAINE METAB. SCREEN Negative [facility] FENTANYL SCREEN, UR QUAL Negative [facility] The expected value f or all of the drugs listed above is Negative. The following drugs or drug groups have been screened for by Immunoassay at the following thresholds: Amphetamine class (1000 ng/mL) Barbiturates (200 ng/mL) Benzodiazepines (200 ng/mL) Cocaine (300 ng/mL) Methadone (300 ng/mL) Opiates (300 ng/mL) Oxycodone (100 ng/mL) PCP (25 ng/mL) Fentanyl (1.0 ng/ml) NOTE: These results are for medical treatment only. Analysis performed using non-forensic procedures. POSITIVE results are NOT confirmed by a more specific alternative method unless requested. If confirmation is needed, request confirmation under separate order. [email or web address] Vital signsOrdered By: Mike Wright on 06-11-2024 Heart rate 94 /min bpm [employer] Work Phone: XR Chest 2 Viewson 1. No evidence of an acute cardiopulmonary process. Report Dictated on Electronically Signed By: Jovanni Garcia MD Electronically Signed Date/Time: 06/11/2024 5:00 AM EDT [facility] Patient Name: KADE BARRERA : 1995 Exam Date/Time: 06/11/2024 04:41 Procedure: XR CHEST 2 VIEWS Ordering Provider: DAHL STEPHEN Reason For Exam: Chest pain CLINICAL INFORMATION: Chest pain. PA and lateral views of the chest are provided without comparison. FINDINGS: The cardiac silhouette and mediastinum are within normal limits. The lungs are free of infiltrate or pleural effusion. The visualized bones and soft tissues are grossly unremarkable. [facility] Jovanni Garcia MD - 06/11/2024 Patient Name: KADE BARRERA : 1995 Exam Date/Time: 06/11/2024 04:41 Procedure: XR CHEST 2 VIEWS Ordering Provider: DAHL STEPHEN Reason For Exam: Chest pain CLINICAL INFORMATION: Chest pain. PA and lateral views of the chest are provided without comparison. FINDINGS: The cardiac silhouette and mediastinum are within normal limits. The lungs are free of infiltrate or pleural effusion. The visualized bones and soft tissues are grossly unremarkable. IMPRESSION: 1. No evidence of an acute cardiopulmonary process. Report Dictated on Electronically Signed By: Jovanni Garcia MD Electronically Signed Date/Time: 06/11/2024 5:[address] [facility] Radiology Study observation (narrative) [facility] XR Chest 2 ViewsOrdered By: Jovanni Garcia on 06-11-2024 [facility] Work Phone: ED Nursing Noteon 06-10-2024 ED Nursing Note Pt did not want to w ait to be seen. Pt seen walking out of ED. Pt A&OX4. Steady gait noted. No IV access obtained during visit. Normal [facility] ED Nursing Note Pt states he called poison control due to mixing alcohol and ice. Pt states he has been drinking beer all day. Normal [facility] ED Provider Noteon ED Provider Note Patient left without being seen after initial triage by nursing staff. As such, I did not participate in the care of this patient. Danita Barcenas PA-C 06/11/24 0118 Normal [facility] AMB POC COVID-19 COVon 01-27 Interpretation and review of laboratory results Normal [facility] SARS-CoV-2 (COVID-19) RNA DOMINIC+non-probe Ql (Nph) Negative Negative [facility] AMB POC RAPID INFLUENZA DNA/ RNAon 01-28-2024 Inflenza A Ag Positive [facility] h Influenza B Ag Negative [facility] Interpretation and review of laboratory results Abnormal [facility] Office Visiton 01-28-2024 Follow-up visit [id number] Kade Barrera 1995 M Date Provider Department Center 01/28/2024 [id number] [place] [facility] [place] None No family history on file Level of Service:25468 [place] OFFICE/OUTPATIENT ESTABLISHED LOW MDM 20 MIN Reason for Visit and Comments: URI [115] - Cough /Body ache/ migraine/stuffy nose /pt stated that he started new medication yesterday and that when he started feeling sick. Normal [facility] Progress Noteon 01-28-2024 Progress Note [facility] [address] [address] Dept: [phone] Dept Loc: [phone] Subjective Kade Barrera is a 28 y.o. year old male who presents to the office with the following complaint(s): Chief Complaint Patient presents with URI Cough /Body ache/ migraine/stuffy nose /pt stated that he started new medication yesterday and that when he started feeling sick. HPI -cough, congestion, headache, runny nose -started yesterday -believes medication caused symptoms -clonidine and Risperdal -[facility] -No over the counter medications utilized currently Review of Systems Constitutional: Positive for activity change, chills, fatigue and fever. HENT: Positive for congestion. Negative for ear pain, postnasal drip, sinus pressure and sore throat. Respiratory: Positive for cough and shortness of breath. Cardiovascular: Negative for chest pain. Gastrointestinal: Negative for abdominal pain. Musculoskeletal: Positive for myalgias. Allergic/Immunologic: Negative for environmental allergies and food allergies. Neurological: Positive for headaches. Negative for dizziness and light-headedness. No Known Allergies No past medical history on file. No past surgical history on file. No family history on file. Social History Socioeconomic History Marital status: Single Current Outpatient Medications on File Prior to Visit Medication Sig Dispense Refill cloNIDine (Catapres) 0.1 MG tablet Take 0.1 mg by mouth 2 times daily. risperiDONE (RisperDAL M-TAB) 0.5 MG disintegrating tablet Take 0.5 mg by mouth 2 times daily. No current facility-administered medications on file prior to visit. Objective BP 117/75 Pulse 90 Temp 36.9 ?C (98.4 ?F) Resp 17 Ht 5' 11 (1.803 m) Wt 194 lb (88 kg) SpO2 98% BMI 27.06 kg/m? Physical Exam Vitals and nursing note reviewed. Constitutional: General: He is not in acute distress. Appearance: Normal appearance. He is normal weight. He is not ill-appearing. HENT: Head: Normocephalic. Right Ear: Tympanic membrane, ear canal and external ear normal. Left Ear: Tympanic membrane, ear canal and external ear normal. Nose: Congestion and rhinorrhea present. Mouth/Throat: Mouth: Mucous membranes are moist. Pharynx: Posterior oropharyngeal erythema present. No oropharyngeal exudate. Eyes: Pupils: Pupils are equal, round, and reactive to light. Cardiovascular: Rate and Rhythm: Normal rate. Pulmonary: Effort: Pulmonary effort is normal. No respiratory distress. Comments: Dry cough noted Skin: General: Skin is warm and dry. Neurological: General: No focal deficit present. Mental Status: He is alert and oriented to person, place, and time. Mental status is at baseline. Psychiatric: Mood and Affect: Mood normal. Behavior: Behavior normal. Thought Content: Thought content normal. Judgment: Judgment normal. Covid-neg Flu-+A Assessment: 1. Influenza A 2. URI with cough and congestion 3. Generalized body aches Kade was seen today for uri. Diagnoses and all orders for this visit: Influenza A (Primary) - oseltamivir (Tamiflu) 75 MG capsule; Take 1 capsule (75 mg) by mouth 2 times daily for 5 days. - acetaminophen (Tylenol Extra Strength) 500 MG tablet; Take 1 tablet (500 mg) by mouth every 6 hours as needed for mild pain (1-3), moderate pain (4-6), headaches or fever for up to 7 days. URI with cough and congestion - AMB POC COVID-19 COV - AMB POC RAPID INFLUENZA DNA/RNA Generalized body aches - AMB POC RAPID INFLUENZA DNA/RNA Patient advised based on symptoms I have high suspicion for viral illness. I explained to patient I have low suspicion that it was due to medication. Patient is in a facility with multiple sick individuals. COVID and flu testing recommended to patient-patient agreeable. Patient fransisco COVID was negative-flu a in office today was positive. Plan of care for patient is treat for influenza A Patient advised they would be given prescription for Tamiflu and Tylenol. Patient advised take entirety medication take medication with food and fluids. Patient to increase fluids. Symptomatic treatment can be continued. Any new or worsening symptoms-following up with PCP would be recommended or go to the ER for further evaluation. Patient agreeable and understanding plan of care. Medication indications, directions, and side effects were discussed. Patient given educational materials - see patient instructions. Discussed use, benefit, and side effects of prescribed medications. All patient questions answered. Pt voiced understanding and aware of treatment plan. Follow up as directed. (Please note this report has been produced using speech recognition software and may contain errors related to that system including errors in grammar, punctuation, and spelling, as well as words (more content not included)... Normal [facility] .Auto Diffon 06-20-2023 Basophil, Absolute 0.1 10 3/mcL Normal 0.0-0.2 [facility] ([place]) Comment on above: Performed By: #### A RIVERA IBARRA, CBC, ALC, ADIFF, CMP, GFR #### [address] [address] Basophils/100 WBC (Bld) 1.0 % Normal 0.0-2.5 [facility] ([place]) Comment on above: Performed By: #### A MD STACEYW, CBC, ALC, ADIFF, CMP, GFR #### [address] [address] Eosinophil, Absolute 0.0 10 3/mcL Normal 0.0-0.4 [facility] ([place]) Comment on above: Performed By: #### A MD STACEYW, CBC, ALC, ADIFF, CMP, GFR #### [address] [address] Eosinophils/100 WBC (Bld) 0.5 % Normal 0.0-7.0 [facility] ([place]) Comment on above: Performed By: #### A MD STACEYW, CBC, ALC, ADIFF, CMP, GFR #### [address] [address] Lymphocyte, Absolute 2.4 10 3/mcL Normal 0.8-3.9 [facility] ([place]) Comment on above: Performed By: #### A MD STACEYW, CBC, ALC, ADIFF, CMP, GFR #### [address] [address] Lymphocytes/100 WBC (Bld) 29.4 % Normal 10.0-50.0 [facility] ([place]) Comment on above: Performed By: #### A MD STACEYW, CBC, ALC, ADIFF, CMP, GFR #### [address] [address] Monocyte, Absolute 0.6 10 3/mcL Normal 0.2-1.0 [facility] ([place]) Comment on above: Performed By: #### A RIVERA IBARRA, CBC, ALC, ADIFF, CMP, GFR #### [address] [address] Monocytes/100 WBC (Bld) 7.6 % Normal 1.7-13.0 [facility] ([place]) Comment on above: Performed By: #### A RIVERA IBARRA, CBC, ALC, ADIFF, CMP, GFR #### [address] [address] Neutrophils/100 WBC (Bld) 61.5 % Normal 37.0-80.0 [facility] ([place] Comment on above: Performed By: #### A RIVERA IBARRA, CBC, ALC, ADIFF, CMP, GFR #### [address] [address] .GFRon 06-20-2023 GFR 96 ml/min/1.73sqm Normal [facility] ([place]) Comment on above: Result Comment: GFR Population mean for , Non- Americans Ages 20-29 = 116 mL/min/1.73 sq.m. Ages 30-39 = 107 mL/min/1.73 sq.m. Ages 40-49 = 99 mL/min/1.73 sq.m. Ages 50-59 = 93 mL/min/1.73 sq.m. Ages 60-69 = 85 mL/min/1.73 sq.m. Ages 70+ = 75 mL/min/1.73 sq.m. Chronic Kidney Disease: Less than 60 mL/min/1.73 square meters End Stage Renal Disease: Less than 15 mL/min/1.73 square meters Performed By: #### A RIVERA IBARRA, CBC, ALC, ADIFF, CMP, GFR ####[address] [address] GFR Non- 79 ml/min/1.73sqm Normal [facility] ([place]) Comment on above: Result Comment: GFR Population mean for , Non- Americans Ages 20-29 = 116 mL/min/1.73 sq.m. Ages 30-39 = 107 mL/min/1.73 sq.m. Ages 40-49 = 99 mL/min/1.73 sq.m. Ages 50-59 = 93 mL/min/1.73 sq.m. Ages 60-69 = 85 mL/min/1.73 sq.m. Ages 70+ = 75 mL/min/1.73 sq.m. Chronic Kidney Disease: Less than 60 mL/min/1.73 square meters End Stage Renal Disease: Less than 15 mL/min/1.73 square meters Performed By: #### A RIVERA IBARRA, CBC, ALC, ADIFF, CMP, GFR ####[place] [id number] .MDWon 06-20-2023 Monocyte Distribution Width 18.60 Normal 0.00-20.00 [facility] ([place]) Comment on above: Result Comment: For ED adult patients suspected of sepsis, MDW<=20.0 does not rule out sepsis or risk of sepsis Performed By: #### A RIVERA IBARRA, CBC, ALC, ADIFF, CMP, GFR #### [address] [address] .NEUABSon 06-20-2023 Neutrophil, Absolute 5.0 10 3/mcL Normal 2.9-6.2 [facility] ([place]) Comment on above: Performed By: #### A RIVERA IBARRA, CBC, ALC, ADIFF, CMP, GFR #### [place] [address] Rob 06-20-2023 Ethanol Level <3 Normal 0-3 [facility] ([place]) Comment on above: Performed By: #### A RIVERA IBARRA, CBC, ALC, ADIFF, CMP, GFR #### [address] [address] Keiko 06-20-2023 Ammonia (P) [Moles/Vol] 15 umol/L Normal 11-32 [facility] ([place]) Comment on above: Performed By: #### P HOS, PRO, AMM ####[address] [address] Basic Metabolic Profile (BMP )on 06-20-2023 BUN/CRE 10.0 RATIO Normal 10-20 [facility] Comment on above: Order Comment: 'TROP ' Serial specimen #1, #2 or #3: 1 Performed By: #### L 500.2500, L501.4020, L100.0100 ####[facility] [address] [place], [address] CA,Total 8.9 mg/dL Normal 8.5-10.1 [facility] Comment on above: Order Comment: 'TROP ' Serial specimen #1, #2 or #3: 1 Performed By: #### L 500.2500, L501.4020, L100.0100 ####[facility] [address] [place], [address] Chloride [Moles/Vol] 108 mmol/L High 98-107 [facility] Comment on above: Order Comment: 'TROP ' Serial specimen #1, #2 or #3: 1 Performed By: #### L 500.2500, L501.4020, L100.0100 ####[facility] [address] [place], [address] CO2 [Moles/Vol] 27.0 mmol/L Normal 21.0-32.0 [facility] Comment on above: Order Comment: 'TROP ' Serial specimen #1, #2 or #3: 1 Performed By: #### L 500.2500, L501.4020, L100.0100 ####[facility] [address] [place], [address] Creatinine [Mass/Vol] 0.90 mg/dL Normal 0.70-1.30 [facility] Comment on above: Order Comment: 'TROP ' Serial specimen #1, #2 or #3: 1 Result Comment: The validity of the calculated GFR GFRAA in patients over 70 years has not been determined. Clinical correlation is essential. Performed By: #### L 500.2500, L501.4020, L100.0100 ####[facility] [address] [place], [address] ECRCL 145.96 ml/min Normal [facility] Comment on above: Order Comment: 'TROP ' Serial specimen #1, #2 or #3: 1 Performed By: #### L 500.2500, L501.4020, L100.0100 ####[facility] [address] [place], [address] EST GFR - AA 131 mL/min Normal >60 [facility] Comment on above: Order Comment: 'TROP ' Serial specimen #1, #2 or #3: 1 Result Comment: Afri can Singaporean GFR Calc Performed By: #### L 500.2500, L501.4020, L100.0100 ####[facility] [address] [place], [address] GAP 5 Normal 5-15 [facility] Comment on above: Order Comment: 'TROP ' Serial specimen #1, #2 or #3: 1 Performed By: #### L 500.2500, L501.4020, L100.0100 ####[facility] [address] [place], [address] GFR/1.73 sq M.predicted among non-blacks MDRD (S/P/Bld) [Vol rate/Area] 108 mL/min/{1.73_m2} Normal >60 [facility] Comment on above: Order Comment: 'TROP ' Serial specimen #1, #2 or #3: 1 Result Comment: Non- GFR Calc Performed By: #### L 500.2500, L501.4020, L100.0100 ####[facility] [address] [place], [address] Glucose [Mass/Vol] 84 mg/dL Normal 74-106 [facility] Comment on above: Order Comment: 'TROP ' Serial specimen #1, #2 or #3: 1 Performed By: #### L 500.2500, L501.4020, L100.0100 ####[facility] [address] [place], [address] Potassium [Moles/Vol] 3.7 mmol/L Normal 3.5-5.1 [facility] Comment on above: Order Comment: 'TROP ' Serial specimen #1, #2 or #3: 1 Performed By: #### L 500.2500, L501.4020, L100.0100 ####[facility] [address] [place], [address] Sodium [Moles/Vol] 140 mmol/L Normal 136-145 [facility] Comment on above: Order Comment: 'TROP ' Serial specimen #1, #2 or #3: 1 Performed By: #### L 500.2500, L501.4020, L100.0100 ####[facility] [address] [place], [address] Urea nitrogen [Mass/Vol] 9 mg/dL Normal 7-18 [facility] Comment on above: Order Comment: 'TROP ' Serial specimen #1, #2 or #3: 1 Performed By: #### L 500.2500, L501.4020, L100.0100 ####[facility] [address] [place], [address] CBCon 06-20-2023 Erythrocyte distribution width (RBC) [Ratio] 12.6 % Normal 11.5-14.5 [facility]) Comment on above: Performed By: #### A RIVERA IBARRA, CBC, ALC, ADIFF, CMP, GFR #### Angel [address] [address] Hematocrit (Bld) [Volume fraction] 40.3 % Low 42.0-52.0 [facility] ([place]) Comment on above: Performed By: #### A RIVERA IBARRA, CBC, ALC, ADIFF, CMP, GFR #### [place] [address] [place], [place] [address] Hgb 14.5 G/dL Normal 14.0-18.0 [facility] ([place]) Comment on above: Performed By: #### A RIVERA IBARRA, CBC, ALC, ADIFF, CMP, GFR #### [address] [address] MCH (RBC) [Entitic mass] 33.9 pg High 27.0-31.2 [facility] ([place]) Comment on above: Performed By: #### A RIVERA IBARRA, CBC, ALC, ADIFF, CMP, GFR #### [address] [address] MCHC 35.9 G/dL High 31.8-35.4 [facility] ([place]) Comment on above: Performed By: #### A RIVERA IBARRA, CBC, ALC, ADIFF, CMP, GFR #### [address] [address] MCV (RBC) [Entitic vol] 94.3 fL High 80.0-94.0 [facility] ([place]) Comment on above: Performed By: #### A RIVERA IBARRA, CBC, ALC, ADIFF, CMP, GFR #### [address] [address] Platelet 230 10 3/mcL Normal 130-400 [facility] ([place]) Comment on above: Performed By: #### A RIVERA IBARRA, CBC, ALC, ADIFF, CMP, GFR #### [address] [address] Platelet mean volume (Bld) [Entitic vol] 7.5 fL Normal 7.4-10.4 [facility] ([place] Comment on above: Performed By: #### A RIVERA IBARRA, CBC, ALC, ADIFF, CMP, GFR #### [address] [address] RBC 4.27 10 6/mcL Normal 4.04-6.13 [facility] ([place] Comment on above: Performed By: #### A RIVERA IBARRA, CBC, ALC, ADIFF, CMP, GFR #### [address] [address] WBC 8.1 10 3/mcL Normal 4.6-10.8 [facility] ([place]) Comment on above: Performed By: #### A MD STACEYW, CBC, ALC, ADIFF, CMP, GFR #### [place] [address] [place], [place] [address] CBC W/Diff, Automatedon 05-0 9-202 Absolute Lymph 2.47 X10 3/uL Normal 0.83-4.51 [facility] Comment on above: Performed By: #### L 500.2500, L501.4020, L100.0100 ####[facility] [address] [place], [address] Absolute Neut 5.2 X10 3/uL Normal 2.0-7.7 [facility] Comment on above: Performed By: #### L 500.2500, L501.4020, L100.0100 ####[facility] [address] [place], [address] Basophils/100 WBC (Bld) 0.9 % Normal 0-1 [facility] Comment on above: Performed By: #### L 500.2500, L501.4020, L100.0100 ####[facility] [address] [place], [address] Eosinophils/100 WBC (Bld) 0.6 % Normal 0-5 [facility] Comment on above: Performed By: #### L 500.2500, L501.4020, L100.0100 ####[facility] [address] [place], [address] Erythrocyte distribution width (RBC) [Ratio] 12.0 % Normal 11.6-14.6 [facility] Comment on above: Performed By: #### L 500.2500, L501.4020, L100.0100 ####[facility] [address] [place], [address] Hematocrit (Bld) [Volume fraction] 42.9 % Normal 40-54 [facility] Comment on above: Performed By: #### L 500.2500, L501.4020, L100.0100 ####[facility] [address] [place], [address] Hemoglobin (Bld) [Mass/Vol] 14.8 g/dL Normal 13.0-16.5 [facility] Comment on above: Performed By: #### L 500.2500, L501.4020, L100.0100 ####[facility] [address] [place], [address] IG% 0.400 Normal 0.0-0.9 [facility] Comment on above: Result Comment: IG% - Immature Granulocytes (promyelocytes, myelocytes and metamyelocytes) > 1% indicates that a LEFT SHIFT is Present. Performed By: #### L 500.2500, L501.4020, L100.0100 ####[facility] [address] [place], [address] Lymphocytes/100 WBC (Bld) 28.9 % Normal 19-41 [facility] Comment on above: Performed By: #### L 500.2500, L501.4020, L100.0100 ####[facility] [address] [place], [address] MCH (RBC) [Entitic mass] 33.0 pg High 27.0-32.0 [facility] Comment on above: Performed By: #### L 500.2500, L501.4020, L100.0100 ####[facility] [address] [place], [address] MCHC (RBC) [Mass/Vol] 34.5 g/dL Normal 32-36 [facility] Comment on above: Performed By: #### L 500.2500, L501.4020, L100.0100 ####[facility] [address] [place], [address] MCV (RBC) [Entitic vol] 95.8 fL High 80-94 [facility] Comment on above: Performed By: #### L 500.2500, L501.4020, L100.0100 ####[facility] [address] [place], [address] Monocytes/100 WBC (Bld) 8.4 % Normal 0-10 [facility] Comment on above: Performed By: #### L 500.2500, L501.4020, L100.0100 ####[facility] [address] [place], [address] Neutrophils/100 WBC (Bld) 60.8 % Normal 47-70 [facility] Comment on above: Performed By: #### L 500.2500, L501.4020, L100.0100 ####[facility] [address] [place], [address] Nucleated RBC (Bld) [#/Vol] 0 10*3/uL Normal 0-5 [facility] Comment on above: Performed By: #### L 500.2500, L501.4020, L100.0100 ####[facility] [address] [place], [address] Platelet mean volume (Bld) [Entitic vol] 9.6 fL Normal 6.2-12.0 [facility] Comment on above: Performed By: #### L 500.2500, L501.4020, L100.0100 ####[facility] [address] [place], [address] Platelets (Bld) [#/Vol] 263 10*3/uL Normal 150-450 [facility] Comment on above: Performed By: #### L 500.2500, L501.4020, L100.0100 ####[facility] [address] [place], [address] RBC (Bld) [#/Vol] 4.48 10*6/uL Low 4.6-6.2 [facility] Comment on above: Performed By: #### L 500.2500, L501.4020, L100.0100 ####[facility] [address] [place], [address] RDW SD 41.5 fl Normal 35.1-43.9 [facility] Comment on above: Performed By: #### L 500.2500, L501.4020, L100.0100 ####[facility] [address] [place], [address] WBC (Bld) [#/Vol] 8.6 10*3/uL Normal 4.4-11.0 [facility] Comment on above: Performed By: #### L 500.2500, L501.4020, L100.0100 ####[facility] [address] [place], [address] CMPon 06-20-2023 Albumin Level 3.8 G/dL Normal 3.5-5.0 [facility] ([place]) Comment on above: Performed By: #### A RIVERA IBARRA, CBC, ALC, ADIFF, CMP, GFR #### [address] [address] Albumin/Globulin [Mass ratio] 1.3 {ratio} Normal 1.1-2.5 [facility] ([place]) Comment on above: Performed By: #### A RIVERA IBARRA, CBC, ALC, ADIFF, CMP, GFR #### [place] [address] [place], [place] [address] ALP [Catalytic activity/Vol] 77 U/L Normal 40-135 [facility] ([place]) Comment on above: Performed By: #### A RIVERA IBARRA, CBC, ALC, ADIFF, CMP, GFR #### [place] [address] [place], [place] [address] ALT [Catalytic activity/Vol] 28 U/L Normal 16-63 [facility] ([place]) Comment on above: Performed By: #### A RIVERA IBARRA, CBC, ALC, ADIFF, CMP, GFR #### [address] [address] AST [Catalytic activity/Vol] 17 U/L Normal 10-40 [facility] ([place]) Comment on above: Performed By: #### A RIVERA IBARRA, CBC, ALC, ADIFF, CMP, GFR #### [address] [address] Bili Total 0.3 mg/dL Normal 0.2-1.0 [facility] ([place]) Comment on above: Result Comment: Use of this assay is not recommended for patients undergoing treatment with eltrombopag due to the potential for falsely elevated results. Performed By: #### A RIVERA IBARRA, CBC, ALC, ADIFF, CMP, GFR #### [place] [id number] BUN/Creatinine Ratio 8 ratio Normal 7-27 [facility] ([place]) Comment on above: Performed By: #### A RIVERA IBARRA, CBC, ALC, ADIFF, CMP, GFR #### [address] [address] Calcium [Mass/Vol] 8.6 mg/dL Normal 8.4-10.2 [facility] ([place]) Comment on above: Performed By: #### A RIVERA IBARRA, CBC, ALC, ADIFF, CMP, GFR #### [address] [address] Chloride [Moles/Vol] 105 mmol/L Normal 98-107 [facility] ([place]) Comment on above: Performed By: #### A RIVERA IBARRA, CBC, ALC, ADIFF, CMP, GFR #### [address] [address] CO2 [Moles/Vol] 24 mmol/L Normal 22-29 [facility] ([place] Comment on above: Performed By: #### A RIVERA IBARRA, CBC, ALC, ADIFF, CMP, GFR #### [address] [address] Creatinine [Mass/Vol] 1.12 mg/dL Normal 0.70-1.30 [facility] ([place]) Comment on above: Performed By: #### A RIVERA IBARRA, CBC, ALC, ADIFF, CMP, GFR #### [address] [address] Electrolyte Balance 14.0 mEq/L Normal 4.0-15.0 [facility] ([place]) Comment on above: Performed By: #### A RIVERA IBARRA, CBC, ALC, ADIFF, CMP, GFR #### [address] [address] Globulin 2.9 G/dL Normal [facility] ([place]) Comment on above: Performed By: #### A RIVERA IBARRA, CBC, ALC, ADIFF, CMP, GFR #### [address] [address] Glucose [Mass/Vol] 99 mg/dL Normal 70-105 [facility] ([place]) Comment on above: Performed By: #### A RIVERA IBARRA, CBC, ALC, ADIFF, CMP, GFR #### [address] [address] Potassium [Moles/Vol] 4.1 mmol/L Normal 3.5-5.1 [facility] ([place] Comment on above: Performed By: #### A RIVERA IBARRA, CBC, ALC, ADIFF, CMP, GFR #### [address] [address] Sodium [Moles/Vol] 143 mmol/L Normal 136-145 [facility] ([place]) Comment on above: Performed By: #### A RIVERA IBARRA, CBC, ALC, ADIFF, CMP, GFR #### [address] [address] Total Protein 6.7 G/dL Normal 6.4-8.2 [facility] ([place] Comment on above: Performed By: #### A RIVERA IBARRA, CBC, ALC, ADIFF, CMP, GFR #### [place] [address] [place], [place] [address] Urea nitrogen [Mass/Vol] 9 mg/dL Normal 7-18 [facility] ([place] Comment on above: Performed By: #### A MD STACEYW, CBC, ALC, ADIFF, CMP, GFR #### [place] [address] [place], [place] [address] CT HEAD OR BRAIN W/O CONTRAS Ton 06-20-2023 CT HEAD OR BRAIN W/O CONTRAST ORIGINAL EXAMINATION: CT OF THE HEAD WITHOUT [...] the resident's findings and interpretation. Interpreted by: Chris Leonard MD Preliminary Report By: Scott Parra Electronically signed By Chris Leonard MD Dictated Date: 06/20/2023 3:11:48 AM Prelim Date: 06/20/2023 3:13:11 AM Sign Date: 06/20/2023 3:18:15 AM Ordering Provider: MICHAEL Robertson [facility] ([place] CT SPINE CERVICAL W/O CONTRA STon 06-20-2023 CT SPINE CERVICAL W/O CONTRAST ORIGINAL EXAMINATION: CT OF THE CERVICAL SPINE [...] the resident's findings and interpretation. Interpreted by: Chris Leonard MD Preliminary Report By: Scott Parra Electronically signed By Chris Leonard MD Dictated Date: 06/20/2023 3:07:41 AM Prelim Date: 06/20/2023 3:11:39 AM Sign Date: 06/20/2023 3:20:14 AM Ordering Provider: MICHAEL Robertson [facility]) L501.4020on 06-20-2023 TROPONIN-I HS 10 pg/mL Normal 3.0-78.0 [facility] Comment on above: Order Comment: 'TROP ' Serial specimen #1, #2 or #3: 1 Result Comment: Maureen yoo Note: New Test Units and Gender Specific Reference Ranges. For more information see Policy Stat Procedure [place] High Sensitivity Troponin (TNIH) and attachments. Performed By: #### L 500.2500, L501.4020, L100.0100 ####[facility] [address] [place], [address] LABORATORYOrdered By: SYSTEM SYSTEM on 06-20-2023 Ammonia (P) [Moles/Vol] 15 umol/L Normal 11 - 32 umol/L AO ADM SS Magnesium [Mass/Vol] 2.1 mg/dL Normal 1.8 - 2 .4 mg/dL AO ADM SS Phosphate [Mass/Vol] 2.9 mg/dL Normal 2.7 - 4 .5 mg/dL AO ADM SS Magnesium [Mass/Vol] 1.7 mg/dL Low 1.8 - 2 .4 mg/dL AO ADM SS Albumin BCP dye [Mass/Vol] 3.8 G/dL Normal 3.5 - 5.0 G/dL AO ADM SS Albumin/Globulin [Mass ratio] 1.3 {ratio} Normal 1.1 - 2.5 ratio AO ADM SS ALP [Catalytic activity/Vol] 77 U/L Normal 40 - 135 U/L AO ADM SS ALT With P-5'-P [Catalytic activity/Vol] 28 U/L Normal 16 - 63 U/L AO ADM SS AST With P-5'-P [Catalytic activity/Vol] 17 U/L Normal 10 - 40 U/L AO ADM SS Basophil, Absolute 0.1 103/mcL Normal 0.0 - 0.2 10^3/mcL AO Workflow SS Basophils/100 WBC (Bld) 1.0 % Normal 0.0 - 2.5 % AO Workflow SS Bilirubin [Mass/Vol] 0.3 mg/dL Normal 0.2 - 1 .0 mg/dL AO ADM SS Comment on above: Interpretive Data: U se of this assay is not recommended for patients undergoing treatment with eltrombopag due to the potential for falsely elevated results. Calcium [Mass/Vol] 8.6 mg/dL Normal 8.4 - 10. 2 mg/dL AO ADM SS Chloride [Moles/Vol] 105 mmol/L Normal 98 - 10 7 mmol/L AO ADM SS CO2 [Moles/Vol] 24 mmol/L Normal 22 - 29 mmol/L AO ADM SS Creatinine [Mass/Vol] 1.12 mg/dL Normal 0.70 - 1.30 mg/dL AO ADM SS Electrolyte Balance 14.0 mEq/L Normal 4.0 - 15 .0 mEq/L AO ADM SS Eosinophil, Absolute 0.0 103/mcL Normal 0.0 - 0 .4 10^3/mcL AO Workflow SS Eosinophils/100 WBC (Bld) 0.5 % Normal 0.0 - 7.0 % AO Workflow SS Erythrocyte distribution width (RBC) [Ratio] 12.6 % Normal 11.5 - 14.5 % AO Workflow SS Ethanol [Mass/Vol] mg/dL Normal 0 - 3 mg/dL AO AD M SS GFR/1.73 sq M.predicted among blacks MDRD (S/P/Bld) [Vol rate/Area] 96 ml/min/1.73sqm Invalid Interpretation Code AO Chemistry S Comment on above: Interpretive Data: GFR Population mean for , Non- Americans Ages 20-29 = 116 mL/min/1.73 sq.m. Ages 30-39 = 107 mL/min/1.73 sq.m. Ages 40-49 = 99 mL/min/1.73 sq.m. Ages 50-59 = 93 mL/min/1.73 sq.m. Ages 60-69 = 85 mL/min/1.73 sq.m. Ages 70+ = 75 mL/min/1.73 sq.m. Chronic Kidney Disease: Less than 60 mL/min/1.73 square meters End Stage Renal Disease: Less than 15 mL/min/1.73 square meters GFR/1.73 sq M.predicted among non-blacks MDRD (S/P/Bld) [Vol rate/Area] 79 ml/min/1.73sqm Invalid Interpretation Code AO Chemistry S Comment on above: Interpretive Data: GFR Population mean for , Non- Americans Ages 20-29 = 116 mL/min/1.73 sq.m. Ages 30-39 = 107 mL/min/1.73 sq.m. Ages 40-49 = 99 mL/min/1.73 sq.m. Ages 50-59 = 93 mL/min/1.73 sq.m. Ages 60-69 = 85 mL/min/1.73 sq.m. Ages 70+ = 75 mL/min/1.73 sq.m. Chronic Kidney Disease: Less than 60 mL/min/1.73 square meters End Stage Renal Disease: Less than 15 mL/min/1.73 square meters Globulin 2.9 G/dL Invalid Interpretation Code AO ADM SS Glucose [Mass/Vol] 99 mg/dL Normal 70 - 105 mg/dL AO ADM SS Hematocrit (Bld) [Volume fraction] 40.3 % Low 42.0 - 52.0 % AO Workflow SS Hemoglobin (Bld) [Mass/Vol] 14.5 G/dL Normal 14.0 - 18.0 G/dL AO Workflow SS Lymphocyte, Absolute 2.4 103/mcL Normal 0.8 - 3 .9 10^3/mcL AO Workflow SS Lymphocytes/100 WBC (Bld) 29.4 % Normal 10.0 - 50.0 % AO Workflow SS MCH (RBC) [Entitic mass] 33.9 pg High 27.0 - 31.2 pg AO Workflow SS MCHC 35.9 G/dL High 31.8 - 35.4 G/dL AO Workflow SS MCV (RBC) [Entitic vol] 94.3 fL High 80.0 - 94.0 fL AO Workflow SS Monocyte distribution width Auto (Bld) [Entitic vol] 18.60 1 Normal 0.00 - 20.00 AO Workflow SS Comment on above: Result Comment: For ED adult patients suspected of sepsis, MDW<=20.0 does not rule out sepsis or risk of sepsis Monocyte, Absolute 0.6 103/mcL Normal 0.2 - 1.0 10^3/mcL AO Workflow SS Monocytes/100 WBC (Bld) 7.6 % Normal 1.7 - 13.0 % AO Workflow SS Neutrophil, Absolute 5.0 103/mcL Normal 2.9 - 6 .2 10^3/mcL AO Workflow SS Neutrophils/100 WBC (Bld) 61.5 % Normal 37.0 - 80.0 % AO Workflow SS Platelet mean volume (Bld) [Entitic vol] 7.5 fL Normal 7.4 - 10.4 fL AO Workflow SS Platelets (Bld) [#/Vol] 230 103/mcL Normal 130 - 400 10^3/mcL AO Workflow SS Potassium [Moles/Vol] 4.1 mmol/L Normal 3.5 - 5.1 mmol/L AO ADM SS Protein [Mass/Vol] 6.7 G/dL Normal 6.4 - 8.2 G/dL AO ADM SS RBC (Bld) [#/Vol] 4.27 106/mcL Normal 4.04 - 6.1 3 10^6/mcL AO Workflow SS Sodium [Moles/Vol] 143 mmol/L Normal 136 - 145 mmol/L AO ADM SS Urea nitrogen [Mass/Vol] 9 mg/dL Normal 7 - 18 mg/dL AO ADM SS Urea nitrogen/Creatinine [Mass ratio] 8 ratio Normal 7 - 27 ratio AO ADM SS WBC (Bld) [#/Vol] 8.1 103/mcL Normal 4.6 - 10.8 10^3/mcL AO Workflow SS LABORATORYOrdered By: Nafisa Argueta on 06-20-2023 INR Coag (PPP) [Relative time] 0.8 {INR} Invalid Interpretation Code AO [facility] SS Comment on above: Interpretive Data: Hernandez glasgow [employer] (CHEST, 1992, 102:312S-25S) recommended therapeutic range for oral anticoagulant therapy is: LOW RISK: Prophylaxis of venous thrombosis INR: 2.0-3.0 Treatment of pulmonary embolism 2.0-3.0 Prevention of systemic embolism 2.0-3.0 HIGH RISK: Mechanical prosthetic valves 2.5-3.5 PT Coag (PPP) [Time] 9.8 s Normal 9.0 - 1 4.4 seconds AO [facility] SS LABORATORYOrdered By: Duc Lara on 06-20-2023 Amphetamines Screen Ql (U) Negative *NA* (06/20/23 3:17 AM) Invalid Interpretation Code Negative AO ADM SS Barbiturates Screen Ql (U) Negative *NA* (06/20/23 3:17 AM) Invalid Interpretation Code Negative AO ADM SS Benzodiazepines Ql (U) Negative *NA* (06/20/23 3:17 AM) Invalid Interpretation Code Negative AO ADM SS Benzoylecgonine Screen Ql (U) Negative *NA* (06/20/23 3:17 AM) Invalid Interpretation Code Negative AO ADM SS Cannabinoids Screen Ql (U) Negative *NA* (06/20/23 3:17 AM) Invalid Interpretation Code Negative AO ADM SS Methadone Screen Ql (U) Negative *NA* (06/20/23 3:17 AM) Invalid Interpretation Code Negative AO ADM SS Opiates Screen Ql (U) Negative *NA* (06/20/23 3:17 AM) Invalid Interpretation Code Negative AO ADM SS Phencyclidine Ql (U) Negative *NA* (06/20/23 3:17 AM) Invalid Interpretation Code Negative AO ADM SS Urine Drugs screened: See Below 4 (06/20/23 3:17 AM) Normal AO Chemistry S Comment on above: Interpretive Data: T his drug screen is a presumptive screening only. No confirmation will be performed unless requested. Drugs screened include: Threshold Amphetamines/Methamphetamines 1,000 ng/mL Barbiturates 200 ng/mL Benzodiazepine metabolites 200 ng/mL Cannabinoids (THC metabolites) 50 ng/mL Cocaine 300 ng/mL Opiates 300 ng/mL Methadone 300 ng/mL Phencyclidine (PCP) 25 ng/mL Testing has been performed FOR MEDICAL PURPOSES ONLY. M100.678on 06-20-2023 M100.678 SARS-CoV-2 (COVID 19 ) Negative INFLUENZA A Negative INFLUENZA B Negative RSV PCR Negative Normal [facility] Comment on above: Performed By: #### M 100.678 ####[facility] [address] [place], [address] MGon 06-20-2023 Magnesium [Mass/Vol] 2.1 mg/dL Normal 1.8-2.4 [facility] ([place]) Comment on above: Performed By: #### M G ####[address] [place], [place] [address] Magnesium [Mass/Vol] 1.7 mg/dL Low 1.8-2.4 [facility] ([place]) Comment on above: Performed By: #### M G ####[address] [place], [place] [address] MRI BRAIN W/O CONTRASTon MRI BRAIN W/O CONTRAST ORIGINAL EXAMINATION: MRI OF THE BRAIN WITHOUT CONTRAST 06/20/2023 3:58 pm TECHNIQUE: Multiplanar multisequence MRI of the brain was performed without the administration of intravenous contrast. COMPARISON: Head CT 06/20/2023 HISTORY: ORDERING SYSTEM PROVIDED HISTORY: Reason for Exam: Possible seizure. Left arm numbness. Bilateral leg weakness. FINDINGS: INTRACRANIAL STRUCTURES/VENTRICLES: There is no acute infarct. No mass effect or midline shift. No evidence of an acute intracranial hemorrhage. The ventricles and sulci are normal in size and configuration. The sellar/suprasellar regions appear unremarkable. The normal signal voids within the major intracranial vessels appear maintained. ORBITS: The visualized portion of the orbits demonstrate no acute abnormality. SINUSES: Trace mucosal thickening in the paranasal sinuses. Mastoid air cells are predominantly clear. BONES/SOFT TISSUES: The bone marrow signal intensity appears normal. The soft tissues demonstrate no acute abnormality. IMPRESSION: No acute intracranial abnormality. Interpreted by: Madelyn Pickard MD Preliminary Report By: Madelyn Pickard MD Electronically signed By Madelyn Pickard MD Dictated Date: 06/20/2023 4:08:57 PM Prelim Date: 06/20/2023 4:13:50 PM Sign Date: 06/20/2023 4:13:50 PM Ordering Provider: ANA MARIA Robertson [facility] ([place]) PHOSon 06-20-2023 Phosphate [Mass/Vol] 2.9 mg/dL Normal 2.7-4.5 [facility] ([place]) Comment on above: Performed By: #### P HOS, PRO, AMM ####[address] [place], [place] [address] PROon 06-20-2023 PT Coag (PPP) [Time] 9.8 s Normal 9.0-14.4 [facility] ([place]) Comment on above: Performed By: #### P HOS, PRO, AMM ####[address] [place], [place] [address] PT International Ratio 0.8 Normal [facility] ([place]) Comment on above: Result Comment: [employer] (CHEST, 1992, 102:312S-25S) recommended therapeutic range for oral anticoagulant therapy is: LOW RISK: Prophylaxis of venous thrombosis INR: 2.0-3.0 Treatment of pulmonary embolism 2.0-3.0 Prevention of systemic embolism 2.0-3.0 HIGH RISK: Mechanical prosthetic valves 2.5-3.5 Performed By: #### P HOS, PRO, AMM ####[address] [place], [place] [address] UDRUGon 06-20-2023 Amphetamine (u) Negative Normal Negative [facility] ([place]) Comment on above: Performed By: #### U DRUG #### [address] [address] Barbiturate (u) Negative Normal Negative [facility] ([place]) Comment on above: Performed By: #### U DRUG #### Angel [address] [address] Benzodiazepine (u) Negative Normal Negative [facility] ([place]) Comment on above: Performed By: #### U DRUG #### [address] [address] Cannabinoid (u) Negative Normal Negative [facility] ([place]) Comment on above: Performed By: #### U DRUG #### [address] [address] Cocaine Ql (U) Negative Normal Negative [facility] ([place] Comment on above: Performed By: #### U DRUG #### [address] [address] Methadone Ql (U) Negative Normal Negative [facility] ([place] Comment on above: Performed By: #### U DRUG #### Angel [address] [address] Opiate (u) Negative Normal Negative [facility] ([place] Comment on above: Performed By: #### U DRUG #### Angel [address] [address] PCP (u) Negative Normal Negative [facility] ([place]) Comment on above: Performed By: #### U DRUG #### [address] [address] Urine Drugs screened: See Below Normal [facility] ([place]) Comment on above: Result Comment: This drug screen is a presumptive screening only. No confirmation will be performed unless requested. Drugs screened include: Threshold Amphetamines/Methamphetamines 1,000 ng/mL Barbiturates 200 ng/mL Benzodiazepine metabolites 200 ng/mL Cannabinoids (THC metabolites) 50 ng/mL Cocaine 300 ng/mL Opiates 300 ng/mL Methadone 300 ng/mL Phencyclidine (PCP) 25 ng/mL Testing has been performed FOR MEDICAL PURPOSES ONLY. Performed By: #### U DRUG #### Angel [address] [address] XR CHEST 1 VIEWon 06-20-2023 XR CHEST 1 VIEW ORIGINAL EXAMINATION: ONE XRAY VIEW OF THE CHEST 06/20/2023 3:05 am COMPARISON: None. HISTORY: ORDERING SYSTEM PROVIDED HISTORY: Reason for Exam: seizure FINDINGS: The heart size and mediastinal contours are normal. There is no lung infiltrate or edema. No pleural fluid or pneumothorax is present. The skeletal structures are unremarkable. IMPRESSION: No acute cardiopulmonary process. Interpreted by: Chris Leonard MD Preliminary Report By: Chris Leonard MD Electronically signed By Chris Leonard MD Dictated Date: 06/20/2023 3:12:02 AM Prelim Date: 06/20/2023 3:12:39 AM Sign Date: 06/20/2023 3:12:39 AM Ordering Provider: MICHAEL Robertson [facility] ([place]) Absolute lymphocyte countOrd ered By: Carmelo Mccray on 06-19-2023 Lymphocytes Auto (Unsp spec) [#/Vol] 2.47 10*3/uL 0.83-4.51 [facility] Automated lymphocyte count a s percentage of total leukocytesOrdered By: Carmelo Mccray on 06-19-2023 Lymphocytes/100 WBC Auto (Unsp spec) 28.9 % 19-41 [facility] Basophil percentageOrdered B y: Carmelo Natashapilar on 06-19-2023 Basophils/100 WBC (Bld) 0.9 % 0-1 [facility] Chloride [Moles/Vol] 108 mmol/L 98-107 [facility] Eosinophils/100 WBC (Bld) 0.6 % 0-5 [facility] Glucose [Mass/Vol] 84 mg/dL 74-106 [facility] Hemoglobin (Bld) [Mass/Vol] 14.8 g/dL 13.0-16.5 [facility] Monocytes/100 WBC (Bld) 8.4 % 0-10 [facility] Neutrophils (Bld) [#/Vol] 5.2 10*3/uL 2.0-7.7 [facility] Neutrophils/100 WBC (Bld) 60.8 % 47-70 [facility] Potassium [Moles/Vol] 3.7 mmol/L 3.5-5.1 [facility] Sodium [Moles/Vol] 140 mmol/L 136-145 [facility] WBC (Bld) [#/Vol] 8.6 10*3/uL 4.4-11.0 [facility] Chest PA and Lateralon 06-18 Chest PA and Lateral [facility] Imaging Services [address] [place] [address] Chest PA and Lateral MR#: [id number] Acct: [id number] Name: KADE VILLA Rep #: [id number] : 1995 M 27 From: Rona Bullock PCP: Care Physician,No Primary Status: REG ER Study: Chest PA and Lateral Date of Exam: 06/19/23 Exam# [id number] Ordering [place]: [place] [id number] INDICATION: Dizziness EXAMINATION/TECHNIQUE: X-RAY - XR Chest 2 Views COMPARISON: None. FINDINGS: LINES/DEVICES: None. LUNGS: No consolidation. No pneumothorax. MEDIASTINUM: Unremarkable. CARDIAC SILHOUETTE: Not enlarged. BONES AND SOFT TISSUES: No acute abnormalities. RAD/Chest PA and Lateral IMPRESSION: No evidence of active intrathoracic disease. Electronically Signed: Rona Rivera MD at 0:12 EDT , CC: Dr. Carmelo Mccray DO; No Primary Care Physician [employer] Supervisor: Signed Normal [facility] Determination of erythrocyte mean corpuscular volume (MCV)Ordered By: Carmelo Mccray on 06-19-2023 MCV (RBC) [Entitic vol] 95.8 fL 80-94 [facility] Emergency Department Summary on 06-19-2023 Emergency Department Summary [facility] Medical Records Department [address] [place] [id number] Emergency Department Summary 06/19/23 MR#: [id number] Acct: [id number] Name: DAISYKADE GAIL Rep #: [id number] : 1995 27 From: Carmelo Mccray DO PCP: Care Physician,No Primary Status:REG ER Location: ED HPI History of Present Illness Chief Complaint: Dizziness Informant: patient Onset/Context/Timing Onset: Today Context: Sudden Onset Timing: Continuous Quality: Tightness Location: Neck Worsened by: Nothing Relieved by: Nothing Narrative Narrative: Patient presents with dizziness and lightheadedness that began today. Patient states it has been constant. Patient states she feels some numbness in his left arm and some tightness in his neck. Patient states he also had a weird taste in his mouth earlier today. Patient denies any palpitations. Patient admits to some left upper chest pain. Patient denies any nausea or vomiting. Patient does admit to a mild headache. Patient states nothing makes his symptoms better and nothing makes them worse. PFSH [facility] Medical History Alcohol abuse Alcohol dependence Anxiety [...] every day smoker tobacco type: cigarettes and e-cigarettes alcohol intake: current details: 10 24 ounce [...] edema Neuro oriented x3, CN's II-XII intact bilateral (more content not included)... Normal [facility] Erythrocyte distribution wid th ratioOrdered By: Carmelo Mccray on 06-19-2023 Erythrocyte distribution width (RBC) [Ratio] 12.0 % 11.6-14.6 [facility] Erythrocyte distribution wid th standard deviationOrdered By: Carmelo Mccray on 06-19-2023 Erythrocyte distribution width (RBC) [Entitic vol] 41.5 fL 35.1-43.9 [facility] Hematocrit Auto (Bld) [Volum e fraction]Ordered By: Carmelo Mccray on 06-19-2023 Hematocrit (Bld) [Volume fraction] 42.9 % 40-54 [facility] Immature granulocytes/100 WB C Auto (Bld)Ordered By: Carmelo Mccray on 06-19-2023 Immature granulocytes/100 WBC (Bld) 0.400 % 0.0-0.9 [facility] Comment on above: IG% - Immature Granu locytes (promyelocytes, myelocytes and metamyelocytes) > 1% indicates that a LEFT SHIFT is Present. Laboratory - Chemistry and C hemistry - challengeOrdered By: Carmelo Mccray on 06-19-2023 CO2 [Moles/Vol] 27.0 mmol/L 21.0-32.0 [facility] Urea nitrogen/Creatinine [Mass ratio] 10.0 mg/mg 10-20 [facility] Laboratory - Hematology and Cell countsOrdered By: Carmelo Mccray on 06-19-2023 MCH (RBC) [Entitic mass] 33.0 pg 27.0-32.0 [facility] MCHC (RBC) [Mass/Vol] 34.5 g/dL 32-36 [facility] Nucleated RBC/100 WBC (Bld) [Ratio] 0 % 0-5 [facility] Platelet mean volume (Bld) [Entitic vol] 9.6 fL 6.2-12.0 [facility] Platelets (Bld) [#/Vol] 263 10*3/uL 150-450 [facility] Laboratory - Microbiology an d Antimicrobial susceptibilityOrdered By: Carmelo Mccray on 06-19-2023 SARS-CoV-2 (COVID-19) RNA DOMINIC+probe Ql (Unsp spec) [facility] No Panel InformationOrdered By: Carmelo Mccray on 06-19-2023 Estimated Creatinine Clearance Calc 145.96 ml/min [facility] Estimated GFR (MDRD) Amer 131 mL/min >60 [facility] Comment on above: GFR Calc Estimated GFR (MDRD) Non-Af Amer 108 mL/min >60 [facility] Comment on above: Non- GFR Calc Troponin I High Sensitivity 10 pg/mL 3.0-78.0 [facility] Comment on above: Please Note: New Rhea t Units and Gender Specific Reference Ranges. For more information see Policy Stat Procedure [place] High Sensitivity Troponin (TNIH) and attachments. RBC Auto (Bld) [#/Vol]Ordere d By: Carmelo Mccray on 06-19-2023 RBC (Bld) [#/Vol] 4.48 10*6/uL 4.6-6.2 [facility] Serum or plasma calcium gaetano urement (mass/volume)Ordered By: Carmelo Mccray on 06-19-2023 Calcium [Mass/Vol] 8.9 mg/dL 8.5-10.1 [facility] Serum or plasma creatinine m easurement (mass/volume)Ordered By: Carmelo Mccray on 06-19-2023 Creatinine [Mass/Vol] 0.90 mg/dL 0.70-1.30 [facility] Comment on above: The validity of the calculated GFR & GFRAA in patients over 70 years has not been determined. Clinical correlation is essential. Serum or plasma urea nitroge n measurement (mass/volume)Ordered By: Carmelo Mccray on 06-19-2023 Urea nitrogen [Mass/Vol] 9 mg/dL 7-18 [facility] Thin prep Papanicolaou smear with manual screeningOrdered By: Carmelo Mccray on 06-19-2023 Thin prep Papanicolaou smear with manual screening 5 5-15 [facility] CBC W/Diff, Automatedon 04-12 PATH REV Reviewed Normal [facility] Comment on above: Result Comment: Poly cythemiaClinical correlation necessary. Mahesh Sharma M.D. 05/02/23 AMENDED REPORT 05/02/23 0932 PATH REV previously reported as: June amalia Performed By: #### L 505.5000, L501.9100, L500.4050, L501.5200, L300.3900, L100.0100 ####[facility] [address] [place], [address] Absolute lymphocyte countOrd ered By: Marcio Cardona on 05-01-2023 Lymphocytes Auto (Unsp spec) [#/Vol] 4.15 10*3/uL 0.83-4.51 [facility] Alcohol, Blood (Medical)-Ser umon 05-01-2023 SERUM ETOH 208.0 mg/dL Normal [facility] Comment on above: Result Comment: The serum:whole blood ethanol ratio is approximately 1.14 and varies slightly with hematocrit. Medical Alcohol reference interval and critical value in non-tolerant individuals; 50 - 100 Impairment 100 Intoxication 100 - 250 Severe Poisoning 250 - 400 Deep/possible fatal coma Performed By: #### L 505.5000, L501.9100, L500.4050, L501.5200, L300.3900, L100.0100 ####[facility] [address] [place], [address] Automated lymphocyte count a s percentage of total leukocytesOrdered By: Marcio Cardona on 05-01-2023 Lymphocytes/100 WBC Auto (Unsp spec) 41.9 % 19-41 [facility] Basophil percentageOrdered B y: White on 05-01-2023 Basophil percentage 3.4 mg/dL 2.5-4.9 [facility] Basophil percentageOrdered B y: Marcio Cardona on 05-01-2023 Basophils/100 WBC (Bld) 1.2 % 0-1 [facility] Bilirubin [Mass/Vol] 0.60 mg/dL 0.20-1.00 [facility] Comment on above: For patients on eltr ombopag therapy, use of Dimension [place] TBIL is not recommended. Chloride [Moles/Vol] 107 mmol/L 98-107 [facility] Eosinophils/100 WBC (Bld) 0.3 % 0-5 [facility] Glucose [Mass/Vol] 130 mg/dL 74-106 [facility] Comment on above: Fasting Glucose resu lt greater than or equal to 126 mg/dL suggests DIABETES MELLITUS per A.D.A. criteria. Hemoglobin (Bld) [Mass/Vol] 18.1 g/dL 13.0-16.5 [facility] Comment on above: CRITICAL VALUE VERIF IED. CALLED TO Lynn SCHRADER05/01/23 0559 Yan[address].RESULTS READ BACK BY SAME. Monocytes/100 WBC (Bld) 6.5 % 0-10 [facility] Neutrophils (Bld) [#/Vol] 4.9 10*3/uL 2.0-7.7 [facility] Neutrophils/100 WBC (Bld) 49.6 % 47-70 [facility] Potassium [Moles/Vol] 3.8 mmol/L 3.5-5.1 [facility] Protein [Mass/Vol] 7.8 g/dL 6.4-8.2 [facility] Sodium [Moles/Vol] 143 mmol/L 136-145 [facility] WBC (Bld) [#/Vol] 9.9 10*3/uL 4.4-11.0 [facility] Blood manual differential co mment interpretation (narrative result)Ordered By: Marcio Cardona on 05-01-2023 Manual differential comment Isacc (Bld) [Interp] SCANNED [facility] Comprehensive Metabolic Prof ilon 05-01-2023 Albumin [Mass/Vol] 4.1 g/dL Normal 3.2-5.0 [facility] Comment on above: Order Comment: Comme nts: may add to ED labs Performed By: #### L 505.5000, L501.9100, L500.4050, L501.5200, L300.3900, L100.0100 ####[facility] [address] [place], [address] Albumin/Globulin [Mass ratio] 1.1 {ratio} Normal 0.9-2.4 [facility] Comment on above: Order Comment: Comme nts: may add to ED labs Performed By: #### L 505.5000, L501.9100, L500.4050, L501.5200, L300.3900, L100.0100 ####[facility] [address] [place], [address] ALK P 92 U/L Normal 45-117 [facility] Comment on above: Order Comment: Comme nts: may add to ED labs Performed By: #### L 505.5000, L501.9100, L500.4050, L501.5200, L300.3900, L100.0100 ####[facility] [address] [place], [address] ALT [Catalytic activity/Vol] 49 U/L Normal 16-61 [facility] Comment on above: Order Comment: Comme nts: may add to ED labs Performed By: #### L 505.5000, L501.9100, L500.4050, L501.5200, L300.3900, L100.0100 ####[facility] [address] [place], [address] AST [Catalytic activity/Vol] 31 U/L Normal 15-37 [facility] Comment on above: Order Comment: Comme nts: may add to ED labs Performed By: #### L 505.5000, L501.9100, L500.4050, L501.5200, L300.3900, L100.0100 ####[facility] [address] [place], [address] Bilirubin [Mass/Vol] 0.60 mg/dL Normal 0.20-1.00 [facility] Comment on above: Order Comment: Comme nts: may add to ED labs Result Comment: For patients on eltrombopag therapy, use of Dimension [place] TBIL is not recommended. Performed By: #### L 505.5000, L501.9100, L500.4050, L501.5200, L300.3900, L100.0100 ####[facility] [address] [place], [address] BUN/CRE 6.4 RATIO Low 10-20 [facility] Comment on above: Order Comment: Comme nts: may add to ED labs Performed By: #### L 505.5000, L501.9100, L500.4050, L501.5200, L300.3900, L100.0100 ####[facility] [address] [place], [address] CA,Total 8.6 mg/dL Normal 8.5-10.1 [facility] Comment on above: Order Comment: Comme nts: may add to ED labs Performed By: #### L 505.5000, L501.9100, L500.4050, L501.5200, L300.3900, L100.0100 ####[facility] [address] [place], [address] Chloride [Moles/Vol] 107 mmol/L Normal 98-107 [facility] Comment on above: Order Comment: Comme nts: may add to ED labs Performed By: #### L 505.5000, L501.9100, L500.4050, L501.5200, L300.3900, L100.0100 ####[facility] [address] [place], [address] CO2 [Moles/Vol] 26.0 mmol/L Normal 21.0-32.0 [facility] Comment on above: Order Comment: Comme nts: may add to ED labs Performed By: #### L 505.5000, L501.9100, L500.4050, L501.5200, L300.3900, L100.0100 ####[facility] [address] [place], [address] Creatinine [Mass/Vol] 0.94 mg/dL Normal 0.70-1.30 [facility] Comment on above: Order Comment: Comme nts: may add to ED labs Result Comment: The validity of the calculated GFR GFRAA in patients over 70 years has not been determined. Clinical correlation is essential. Performed By: #### L 505.5000, L501.9100, L500.4050, L501.5200, L300.3900, L100.0100 ####[facility] [address] [place], [address] EST GFR - AA 125 mL/min Normal >60 [facility] Comment on above: Order Comment: Comme nts: may add to ED labs Result Comment: Afri can [place] GFR Calc Performed By: #### L 505.5000, L501.9100, L500.4050, L501.5200, L300.3900, L100.0100 ####[facility] [address] [place], [address] GAP 10 Normal 5-15 [facility] Comment on above: Order Comment: Comme nts: may add to ED labs Performed By: #### L 505.5000, L501.9100, L500.4050, L501.5200, L300.3900, L100.0100 ####[facility] [address] [place], [address] GFR/1.73 sq M.predicted among non-blacks MDRD (S/P/Bld) [Vol rate/Area] 103 mL/min/{1.73_m2} Normal >60 [facility] Comment on above: Order Comment: Comme nts: may add to ED labs Result Comment: Non- GFR Calc Performed By: #### L 505.5000, L501.9100, L500.4050, L501.5200, L300.3900, L100.0100 ####[facility] [address] [place], [address] Globulin (S) [Mass/Vol] 3.7 g/dL Normal 2.2-4.2 [facility] Comment on above: Order Comment: Comme nts: may add to ED labs Performed By: #### L 505.5000, L501.9100, L500.4050, L501.5200, L300.3900, L100.0100 ####[facility] [address] [place], [address] Glucose [Mass/Vol] 130 mg/dL High 74-106 [facility] Comment on above: Order Comment: Comme nts: may add to ED labs Result Comment: Fast ing Glucose result greater than or equal to 126 mg/dL suggests DIABETES MELLITUS per A.D.A. criteria. Performed By: #### L 505.5000, L501.9100, L500.4050, L501.5200, L300.3900, L100.0100 ####[facility] [address] [place], [address] Potassium [Moles/Vol] 3.8 mmol/L Normal 3.5-5.1 [facility] Comment on above: Order Comment: Comme nts: may add to ED labs Performed By: #### L 505.5000, L501.9100, L500.4050, L501.5200, L300.3900, L100.0100 ####[facility] [address] [place], [address] Sodium [Moles/Vol] 143 mmol/L Normal 136-145 [facility] [facility] Comment on above: Order Comment: Comme nts: may add to ED labs Performed By: #### L 505.5000, L501.9100, L500.4050, L501.5200, L300.3900, L100.0100 ####[facility] [address] [place], [address] T PROT 7.8 g/dL Normal 6.4-8.2 [facility] Comment on above: Order Comment: Comme nts: may add to ED labs Performed By: #### L 505.5000, L501.9100, L500.4050, L501.5200, L300.3900, L100.0100 ####[facility] [address] [place], [address] Urea nitrogen [Mass/Vol] 6 mg/dL Low 7-18 [facility] Comment on above: Order Comment: Comme nts: may add to ED labs Performed By: #### L 505.5000, L501.9100, L500.4050, L501.5200, L300.3900, L100.0100 ####[facility] [address] [place], [address] Determination of erythrocyte mean corpuscular volume (MCV)Ordered By: Marcio Cardona on 05-01-2023 MCV (RBC) [Entitic vol] 93.3 fL 80-94 [facility] Emergency Department Summary on 05-01-2023 Emergency Department Summary [facility] Medical Records Department [address] [place] [address] Emergency Department Summary 05/01/23 MR#: [id number] Acct: [id number] Name: KADE VILLA Rep #: [id number] : 1995 27 From: Marcio Cardona MD PCP: Care Physician,No Primary Status:ADM IN Location: ICU [id number] [facility] History of Present Illness Chief Complaint: ETOH [...] does not intend to do that again. [facility] Medical History (Updated 05/01/23 @ [...] every day smoker tobacco type: cigarettes Smoking packs per day: 0.5 Smoking cigarettes per day: 10.0 [...] withdrawal symptoms, will start him on phenobarbital and admit him to the medical floor. Lab Data [...] ED Provider: Marcio Cardona Dx/Rx/DC Orders Clinical Impr (more content not included)... Normal [facility] Erythrocyte distribution wid th ratioOrdered By: Marcio Cardona on 05-01-2023 Erythrocyte distribution width (RBC) [Ratio] 12.8 % 11.6-14.6 [facility] Erythrocyte distribution wid th standard deviationOrdered By: Marcio Cardona on 05-01-2023 Erythrocyte distribution width (RBC) [Entitic vol] 44.0 fL 35.1-43.9 [facility] H AND P Exam - Hospitaliston 05-01-2023 H&P Exam - Hospitalist [facility] Medical Records Department [address] [place] [address] H P Exam - Hospitalist 05/01/23 0532 MR#: [id number] Acct: [id number] Name: KADE VILLA Rep #: [id number] : 1995 27 From: Jacquie Beckwith MD PCP: Care Physician,No Primary Status:ADM IN Location: ICU [id number] HPI - General General Date of Admission: 05/01/23 Date of Service: 05/01/23 Chief Complaint: EtOH detoxification request, withdrawal. HPI Narrative The patient is a 27 y/o M w/ PMHx: Chart reported Hx Polysubstance abuse (crack/cocaine and amphetamines) although patient currently denying, Tobacco use, EtOH abuse (Lower proof liquor, wine, 24 beers daily/mix), Anxiety and Depression, Asthma, Chronic migraines who presents to the [facility] ED on 05/01/23 with last EtOH intake reported prior to ED arrival [...] administered phenobarbital 97.2 mg p.o. x 1. [facility] Medical History (Updated 05/01/23 @ 05:48 [...] every day smoker tobacco type: cigarettes Smoking packs per day: 0.5 Smoking cigarettes per day: 10.0 [...] chest pain, chest pressure or chest discomfort, palpitations, edema, orthopnea, syncopal events. RESPIRATORY: No shortness of [...] sweating, cold or heat intolerance. No polyuria or polydipsia. ALLERGIES: No history of asthma, hives, eczema [...] mildly restless, very mild tremors noted, subjective (more content not included)... Normal [facility] Hematocrit Auto (Bld) [Volum e fraction]Ordered By: Marcio Cardona on 05-01-2023 Hematocrit (Bld) [Volume fraction] 51.3 % 40-54 [facility] Immature granulocytes/100 WB C Auto (Bld)Ordered By: Marcio Cardona on 05-01-2023 Immature granulocytes/100 WBC (Bld) 0.500 % 0.0-0.9 [facility] Comment on above: IG% - Immature Granu locytes (promyelocytes, myelocytes and metamyelocytes) > 1% indicates that a LEFT SHIFT is Present. Laboratory - Chemistry and C hemistry - challengeOrdered By: Marcio Cardona on 05-01-2023 Albumin/Globulin [Mass ratio] 1.1 {ratio} 0.9-2.4 [facility] ALP [Catalytic activity/Vol] 92 U/L 45-117 [facility] ALT [Catalytic activity/Vol] 49 U/L 16-61 [facility] CO2 [Moles/Vol] 26.0 mmol/L 21.0-32.0 [facility] Globulin (S) [Mass/Vol] 3.7 g/dL 2.2-4.2 [facility] Urea nitrogen/Creatinine [Mass ratio] 6.4 mg/mg 10- [facility] Laboratory - Chemistry and C hemistry - challengeOrdered By: Jacquie Beckwith on 05-01-2023 Magnesium [Mass/Vol] 2.1 mg/dL 1.6-2.6 [facility] Laboratory - CoagulationOrde red By: Marcio Cardona on 05-01-2023 INR Coag (Bld) [Relative time] 1.0 {INR} [facility] PT Coag (PPP) [Time] 13.5 s 11.7-14.9 [facility] Laboratory - Drug toxicology Ordered By: Marcio Cardona on 05-01-2023 Amphetamines Ql (U) Negative <1000 ng/mL [facility] Benzodiazepines Ql (U) Negative < 200 ng/mL [facility] Cannabinoids Screen Ql (U) Negative < 50 ng/mL [facility] Cocaine Ql (U) Negative < 300 ng/mL [facility] Opiates Ql (U) Negative < 300 ng/mL [facility] Laboratory - Hematology and Cell countsOrdered By: Marcio Cardona on 05-01-2023 MCH (RBC) [Entitic mass] 32.9 pg 27.0-32.0 [facility] MCHC (RBC) [Mass/Vol] 35.3 g/dL 32-36 [facility] Nucleated RBC/100 WBC (Bld) [Ratio] 0 % 0-5 [facility] Platelet mean volume (Bld) [Entitic vol] 9.1 fL 6.2-12.0 [facility] Platelets (Bld) [#/Vol] 371 10*3/uL 150-450 [facility] Magnesiumon 05-01-2023 Magnesium [Mass/Vol] 2.1 mg/dL Normal 1.6-2.6 [facility] Comment on above: Order Comment: Comme nts: may add to ED labs Performed By: #### L 505.5000, L501.9100, L500.4050, L501.5200, L300.3900, L100.0100 ####[facility] [address] [place], [place], [address] No Panel InformationOrdered By: Marcio Cardona on 05-01-2023 Estimated GFR (MDRD) Amer 125 mL/min >60 [facility] Comment on above: GFR Calc Estimated GFR (MDRD) Non-Af Amer 103 mL/min >60 [facility] Comment on above: Non- GFR Calc Ethyl Alcohol Level 208.0 mg/dL [facility] Comment on above: The serum:whole bloo d ethanol ratio is approximately 1.14and varies slightly with hematocrit. Medical Alcohol reference interval and critical value innon-tolerant individuals; 50 - 100 Impairment 100 Intoxication 100 - 250 Severe Poisoning 250 - 400 Deep/possible fatal coma MDMA (Ecstasy) Screen Negative < 500 ng/mL [facility] Urine Barbiturates Screen Negative < 200 ng/mL [facility] Urine Drug Screen Comment [facility] Comment on above: CONFIRMATORY TESTING FOR ALL POSITIVE URINE DRUG SCREENRESULTS WILL ONLY BE SENT OUT UPON PHYSICIAN ORDER. VISTA Urine Drug Screen methods provide only preliminaryanalytical test results. A more specific alternate chemicalmethod must be used in order to obtain a confirmedanalytical result. Gas chromatography/mass spectrometery(GC/MS) is the preferred confirmatory method. Clinicalconsideration and professional judgement should be appliedto any drug of abuse test result, particularly whenpreliminary positive results are used. URINE TCA TESTING MUST BE ORDERED SEPARATELY. USE TESTMNEMONIC: [facility] Urine Methadone Screen Negative < 300 ng/mL [facility] Phosphoruson 05-01-2023 Phosphate [Mass/Vol] 3.4 mg/dL Normal 2.5-4.9 [facility] Comment on above: Order Comment: Comme nts: May add to ED labs Performed By: #### L 501.2300 ####[facility] [address] [place], [address] Prothrombin Time w/INRon INR Coag (PPP) [Relative time] 1.0 {INR} Normal [facility] Comment on above: Performed By: #### L 505.5000, L501.9100, L500.4050, L501.5200, L300.3900, L100.0100 ####[facility] [address] [place], [address] PT Coag (PPP) [Time] 13.5 s Normal 11.7-14.9 [facility] Comment on above: Performed By: #### L 505.5000, L501.9100, L500.4050, L501.5200, L300.3900, L100.0100 ####[facility] [address] [place], [address] RBC Auto (Bld) [#/Vol]Ordere d By: Marcio Cardona on 05-01-2023 RBC (Bld) [#/Vol] 5.50 10*6/uL 4.6-6.2 [facility] Review by pathologistOrdered By: Marcio Cardona on 05-01-2023 Pathologist review Isacc (Unsp spec) [Interp] Cheryl holland [facility] Pathologist review Isacc (Unsp spec) [Interp] Reviewed [facility] Comment on above: Previous reported re sult: Cheryl holland Edited by: МАРИНА on 05/02/23:0932PolycythemiaClinical correlation necessary.Mahesh Sharma M.D. 05/02/23 AMENDED REPORT 05/02/23 0932 PATH REV previously reported as: Cheryl holland Serum or plasma calcium gaetano urement (mass/volume)Ordered By: Marcio Cardona on 05-01-2023 Calcium [Mass/Vol] 8.6 mg/dL 8.5-10.1 [facility] Serum or plasma creatinine m easurement (mass/volume)Ordered By: Marcio Cardona on 05-01-2023 Creatinine [Mass/Vol] 0.94 mg/dL 0.70-1.30 [facility] Comment on above: The validity of the calculated GFR & GFRAA in patients over 70 years has not been determined. Clinical correlation is essential. Serum or plasma urea nitroge n measurement (mass/volume)Ordered By: Marcio Cardona on 05-01-2023 Urea nitrogen [Mass/Vol] 6 mg/dL 7-18 [facility] Thin prep Papanicolaou smear with manual screeningOrdered By: Marcio Cardona on 05-01-2023 Thin prep Papanicolaou smear with manual screening 4.1 g/dL 3.2-5.0 [facility] Thin prep Papanicolaou smear with manual screening 31 U/L 15-37 [facility] Thin prep Papanicolaou smear with manual screening 10 5-15 [facility] Urine Drug Screen (VISTA)on 05-01-2023 AMPHETAMINES Negative Normal <1000 ng/mL [facility] Comment on above: Performed By: #### L 505.5000, L501.9100, L500.4050, L501.5200, L300.3900, L100.0100 ####[facility] [address] [place], [address] BARBITIURATES Negative Normal < 200 ng/mL [facility] Comment on above: Performed By: #### L 505.5000, L501.9100, L500.4050, L501.5200, L300.3900, L100.0100 ####[facility] [address] [place], [address] BENZODIAZIPINE Negative Normal < 200 ng/mL [facility] Comment on above: Performed By: #### L 505.5000, L501.9100, L500.4050, L501.5200, L300.3900, L100.0100 ####[facility] [address] [place], [address] COCAINE Negative Normal < 300 ng/mL [facility] Comment on above: Performed By: #### L 505.5000, L501.9100, L500.4050, L501.5200, L300.3900, L100.0100 ####[facility] [address] [place], [address] ECSTACY Negative Normal < 500 ng/mL [facility] Comment on above: Performed By: #### L 505.5000, L501.9100, L500.4050, L501.5200, L300.3900, L100.0100 ####[facility] [address] [place] [address] METHADONE Negative Normal < 300 ng/mL [facility] Comment on above: Performed By: #### L 505.5000, L501.9100, L500.4050, L501.5200, L300.3900, L100.0100 ####[facility] [address] [place], [place], [phone] OPIATES Negative Normal < 300 ng/mL [facility] Comment on above: Performed By: #### L 505.5000, L501.9100, L500.4050, L501.5200, L300.3900, L100.0100 ####[facility] [address] [place] [address] PCP Negative Normal < 25 ng/mL [facility] Comment on above: Performed By: #### L 505.5000, L501.9100, L500.4050, L501.5200, L300.3900, L100.0100 ####[facility] [address] [place] [address] THC Negative Normal < 50 ng/mL [facility] Comment on above: Performed By: #### L 505.5000, L501.9100, L500.4050, L501.5200, L300.3900, L100.0100 ####[facility] [address] [place] [address] VISTA UDS PH 7 Normal [facility] Comment on above: Performed By: #### L 505.5000, L501.9100, L500.4050, L501.5200, L300.3900, L100.0100 ####[facility] [address] [place], [address] Urine phencyclidine (PCP) de tectionOrdered By: Marcio Cardona on 05-01-2023 Phencyclidine Ql (U) Negative < 25 ng/mL [facility] Alcohol, Blood (Medical)-Ser umon 03-23-2023 SERUM ETOH 212.0 mg/dL Normal [facility] Comment on above: Result Comment: The serum:whole blood ethanol ratio is approximately 1.14 and varies slightly with hematocrit. Medical Alcohol reference interval and critical value in non-tolerant individuals; 50 - 100 Impairment 100 Intoxication 100 - 250 Severe Poisoning 250 - 400 Deep/possible fatal coma Performed By: #### L 501.9100, L500.4050, L505.5000, L100.0100 #### [facility] [address] [place], [address] Basophil percentageOrdered B y: Jacquie White on 03-23-2023 Basophil percentage 2.9 mg/dL 2.5-4.9 [facility] CBC W/Diff, Automatedon 03-14 0-2023 Absolute Lymph 3.11 X10 3/uL Normal 0.83-4.51 [facility] Comment on above: Performed By: #### L 501.9100, L500.4050, L505.5000, L100.0100 #### [facility] [address] [place], [address] Absolute Neut 5.3 X10 3/uL Normal 2.0-7.7 [facility] Comment on above: Performed By: #### L 501.9100, L500.4050, L505.5000, L100.0100 #### [facility] [address] [place], [address] Basophils/100 WBC (Bld) 0.8 % Normal 0-1 [facility] Comment on above: Performed By: #### L 501.9100, L500.4050, L505.5000, L100.0100 #### [facility] [address] [place], [address] Eosinophils/100 WBC (Bld) 0.1 % Normal 0-5 [facility] Comment on above: Performed By: #### L 501.9100, L500.4050, L505.5000, L100.0100 #### [facility] [address] [place], [address] Erythrocyte distribution width (RBC) [Ratio] 12.4 % Normal 11.6-14.6 [facility] Comment on above: Performed By: #### L 501.9100, L500.4050, L505.5000, L100.0100 #### [facility] [address] [place], [address] Hematocrit (Bld) [Volume fraction] 46.8 % Normal 40-54 [facility] Comment on above: Performed By: #### L 501.9100, L500.4050, L505.5000, L100.0100 #### [facility] [address] [place], [address] Hemoglobin (Bld) [Mass/Vol] 16.8 g/dL High 13.0-16.5 [facility] Comment on above: Performed By: #### L 501.9100, L500.4050, L505.5000, L100.0100 #### [facility] [address] [place], [address] IG% 0.300 Normal 0.0-0.9 [facility] Comment on above: Result Comment: IG% - Immature Granulocytes (promyelocytes, myelocytes and metamyelocytes) > 1% indicates that a LEFT SHIFT is Present. Performed By: #### L 501.9100, L500.4050, L505.5000, L100.0100 #### [facility] [address] [place], [address] Lymphocytes/100 WBC (Bld) 34.2 % Normal 19-41 [facility] Comment on above: Performed By: #### L 501.9100, L500.4050, L505.5000, L100.0100 #### [facility] [address] [place], [address] MCH (RBC) [Entitic mass] 31.8 pg Normal 27.0-32.0 [facility] Comment on above: Performed By: #### L 501.9100, L500.4050, L505.5000, L100.0100 #### [facility] [address] [place], [address] MCHC (RBC) [Mass/Vol] 35.9 g/dL Normal 32-36 [facility] Comment on above: Performed By: #### L 501.9100, L500.4050, L505.5000, L100.0100 #### [facility] [address] [place], [address] MCV (RBC) [Entitic vol] 88.6 fL Normal 80-94 [facility] Comment on above: Performed By: #### L 501.9100, L500.4050, L505.5000, L100.0100 #### [facility] [address] [place], [address] Monocytes/100 WBC (Bld) 6.3 % Normal 0-10 [facility] Comment on above: Performed By: #### L 501.9100, L500.4050, L505.5000, L100.0100 #### [facility] [address] [place], [address] Neutrophils/100 WBC (Bld) 58.3 % Normal 47-70 [facility] Comment on above: Performed By: #### L 501.9100, L500.4050, L505.5000, L100.0100 #### [facility] [address] [place], [address] Nucleated RBC (Bld) [#/Vol] 0 10*3/uL Normal 0-5 [facility] Comment on above: Performed By: #### L 501.9100, L500.4050, L505.5000, L100.0100 #### [facility] [address] [place], [address] Platelet mean volume (Bld) [Entitic vol] 9.2 fL Normal 6.2-12.0 [facility] Comment on above: Performed By: #### L 501.9100, L500.4050, L505.5000, L100.0100 #### [facility] [address] [place], [address] Platelets (Bld) [#/Vol] 367 10*3/uL Normal 150-450 [facility] Comment on above: Performed By: #### L 501.9100, L500.4050, L505.5000, L100.0100 #### [facility] [address] [place], [address] RBC (Bld) [#/Vol] 5.28 10*6/uL Normal 4.6-6.2 [facility] Comment on above: Performed By: #### L 501.9100, L500.4050, L505.5000, L100.0100 #### [facility] [address] [place], [address] RDW SD 40.2 fl Normal 35.1-43.9 [facility] Comment on above: Performed By: #### L 501.9100, L500.4050, L505.5000, L100.0100 #### [facility] [address] [place], [address] WBC (Bld) [#/Vol] 9.1 10*3/uL Normal 4.4-11.0 [facility] Comment on above: Performed By: #### L 501.9100, L500.4050, L505.5000, L100.0100 #### [facility] [address] [place], [address] Comprehensive Metabolic Prof ilon 03-23-2023 Albumin [Mass/Vol] 4.4 g/dL Normal 3.2-5.0 [facility] Comment on above: Performed By: #### L 501.9100, L500.4050, L505.5000, L100.0100 #### [facility] [address] [place], [address] Albumin/Globulin [Mass ratio] 1.2 {ratio} Normal 0.9-2.4 [facility] Comment on above: Performed By: #### L 501.9100, L500.4050, L505.5000, L100.0100 #### [facility] [address] [place], [address] ALK P 105 U/L Normal 45-117 [facility] Comment on above: Performed By: #### L 501.9100, L500.4050, L505.5000, L100.0100 #### [facility] [address] [place], [address] ALT [Catalytic activity/Vol] 27 U/L Normal 16-61 [facility] Comment on above: Performed By: #### L 501.9100, L500.4050, L505.5000, L100.0100 #### [facility] [address] [place], [address] AST [Catalytic activity/Vol] 18 U/L Normal 15-37 [facility] Comment on above: Performed By: #### L 501.9100, L500.4050, L505.5000, L100.0100 #### [facility] [address] [place], [address] Bilirubin [Mass/Vol] 0.70 mg/dL Normal 0.20-1.00 [facility] Comment on above: Result Comment: For patients on eltrombopag therapy, use of Dimension [place] TBIL is not recommended. Performed By: #### L 501.9100, L500.4050, L505.5000, L100.0100 #### [facility] [address] [place], [address] BUN/CRE 8.1 RATIO Low 10-20 [facility] Comment on above: Performed By: #### L 501.9100, L500.4050, L505.5000, L100.0100 #### [facility] [address] [place], [address] CA,Total 9.1 mg/dL Normal 8.5-10.1 [facility] Comment on above: Performed By: #### L 501.9100, L500.4050, L505.5000, L100.0100 #### [facility] [address] [place], [address] Chloride [Moles/Vol] 108 mmol/L High 98-107 [facility] Comment on above: Performed By: #### L 501.9100, L500.4050, L505.5000, L100.0100 #### [facility] [address] [place], [address] CO2 [Moles/Vol] 25.0 mmol/L Normal 21.0-32.0 [facility] Comment on above: Performed By: #### L 501.9100, L500.4050, L505.5000, L100.0100 #### [facility] [address] [place], [address] Creatinine [Mass/Vol] 0.86 mg/dL Normal 0.70-1.30 [facility] Comment on above: Result Comment: The validity of the calculated GFR GFRAA in patients over 70 years has not been determined. Clinical correlation is essential. Performed By: #### L 501.9100, L500.4050, L505.5000, L100.0100 #### [facility] [address] [place], [address] ECRCL 138.63 ml/min Normal [facility] Comment on above: Performed By: #### L 501.9100, L500.4050, L505.5000, L100.0100 #### [facility] [address] [place], [address] EST GFR - AA 137 mL/min Normal >60 [facility] Comment on above: Result Comment: Afri can Singaporean GFR Calc Performed By: #### L 501.9100, L500.4050, L505.5000, L100.0100 #### [facility] [address] [place], [address] GAP 7 Normal 5-15 [facility] Comment on above: Performed By: #### L 501.9100, L500.4050, L505.5000, L100.0100 #### [facility] [address] [place], [address] GFR/1.73 sq M.predicted among non-blacks MDRD (S/P/Bld) [Vol rate/Area] 113 mL/min/{1.73_m2} Normal >60 [facility] Comment on above: Result Comment: Non- GFR Calc Performed By: #### L 501.9100, L500.4050, L505.5000, L100.0100 #### [facility] [address] [place], [address] Globulin (S) [Mass/Vol] 3.7 g/dL Normal 2.2-4.2 [facility] Comment on above: Performed By: #### L 501.9100, L500.4050, L505.5000, L100.0100 #### [facility] [address] [place], [address] Glucose [Mass/Vol] 117 mg/dL High 74-106 [facility] Comment on above: Result Comment: Fast ing Glucose result from 100 to 125 mg/dL suggests IMPAIRED HOMEOSTASIS per A.D.A. criteria. Performed By: #### L 501.9100, L500.4050, L505.5000, L100.0100 #### [facility] [address] [place], [address] Potassium [Moles/Vol] 4.0 mmol/L Normal 3.5-5.1 [facility] Comment on above: Performed By: #### L 501.9100, L500.4050, L505.5000, L100.0100 #### [facility] [address] [place], [address] Sodium [Moles/Vol] 140 mmol/L Normal 136-145 [facility] Comment on above: Performed By: #### L 501.9100, L500.4050, L505.5000, L100.0100 #### [facility] [address] [place], [address] T PROT 8.1 g/dL Normal 6.4-8.2 [facility] Comment on above: Performed By: #### L 501.9100, L500.4050, L505.5000, L100.0100 #### [facility] [address] [place], [address] Urea nitrogen [Mass/Vol] 7 mg/dL Normal 7-18 [facility] Comment on above: Performed By: #### L 501.9100, L500.4050, L505.5000, L100.0100 #### [facility] [address] [place], [address] Emergency Department Summary on 03-23-2023 Emergency Department Summary [facility] Medical Records Department [address] [place] [address] Emergency Department Summary 03/22/23 MR#: [id number] Acct: [id number] Name: KADE VILLA Rep #: [id number] : 1995 27 From: Daquan Reid MD PCP: Care Physician,No Primary Status:ADM IN Location: [place]3 [id number] Daquan Reid MD on 03/23/23 at 0042 EKG was obtained and interpreted by myself independently as sinus tachycardia at 108 bpm without ectopy or acute ST changes. No STEMI. 03/23/23 0042 Cosigner Signature (if applicable): cc: No Primary Care Physician * Signed HPI History of Present Illness Chief Complaint: Substance Abuse Narrative Narrative: 27-year-old male past medical history of previous detox, presents for detox from alcohol. He states he used to drink a [...] detox last year, then went through [facility]. [facility] Medical History Alcohol abuse Anxiety [...] PERRL, EOMI. Neck soft and supple. No point tenderness or step off. Cardiovascular: Regular rate and [...] of last year. He did not sign out AGAINST MEDICAL ADVICE. He had been started on [...] discussed with Dr. Thomas for admission to [facility] for detox from alcohol. Patient is [...] % (Auto) 58.3 Lymph % (Auto) 34.2 [place] % (Auto) 6.3 Eos % (Auto) 0.1 Baso % (Auto) 0.8 Absolute Neuts (more content not included)... Normal [facility] GGTPon 03-23-2023 GGTP 34 U/L Normal 15-85 [facility] Comment on above: Performed By: #### L 300.3900, L501.5100 ####[facility] [address] [place], [place], [address] H AND P Exam - Hospitaliston 03-23-2023 H&P Exam - Hospitalist [facility] Medical Records Department [address] [place] [address] H P Exam - Hospitalist 03/23/23 0017 MR#: [id number] Acct: [id number] Name: KADE VILLA Rep #: [id number] 3 : 1995 27 From: Stan Thomas MD PCP: Care Physician,No Primary Status:ADM IN Location: [facility] [id number] HPI - General General Date of Admission: 03/23/23 Date of Service: 03/23/23 Chief Complaint: Alcohol withdrawal symptoms. Feeling restless, drowsy and lethargic HPI Narrative KADE IVLLA, is a 27 M with history of [...] including hematemesis melena or alcoholic liver disease [facility] Medical History Alcohol abuse Anxiety Asthma [...] and no addt'l complaints, except as documented Rest 14 ROS are negative except [...] % (Auto) 58.3, Lymph % (Auto) 34.2, [place] % (Auto) 6.3, Eos % (Auto) 0.1, Baso % (Auto) 0.8, Absolute Neuts (auto) 5.3, Absolute Lymphs (auto) 3.11, Nucleated RBC % 0, Sodium 140, Potassium 4.0, Chloride 108 H, Carbon Dioxide 25.0, Anion Gap 7, BUN 7, Creatinine 0.86, Estim Creat Clear Calc 138.63, Est GFR (MDRD) Af A (more content not included)... Normal [facility] Laboratory - Chemistry and C hemistry - challengeOrdered By: Jacquie Beckwith on 03-23-2023 Magnesium [Mass/Vol] 2.0 mg/dL 1.6-2.6 [facility] Laboratory - CoagulationOrde red By: Stan Thomas on 03-23-2023 INR Coag (Bld) [Relative time] 0.9 {INR} [facility] PT Coag (PPP) [Time] 12.2 s 11.7-14.9 [facility] Magnesiumon 03-23-2023 Magnesium [Mass/Vol] 2.0 mg/dL Normal 1.6-2.6 [facility] Comment on above: Order Comment: Comme nts: May add to ED labs Comments: may add to ED labs Performed By: #### L 501.5200, L501.2300 #### [facility] [address] [place], [address] Phosphoruson 03-23-2023 Phosphate [Mass/Vol] 2.9 mg/dL Normal 2.5-4.9 [facility] Comment on above: Order Comment: Comme nts: May add to ED labs Comments: may add to ED labs Performed By: #### L 501.5200, L501.2300 #### [facility] [address] [place], [address] Prothrombin Time w/INRon INR Coag (PPP) [Relative time] 0.9 {INR} Normal [facility] Comment on above: Performed By: #### L 300.3900, L501.5100 ####[facility] [address] [place], [address] PT Coag (PPP) [Time] 12.2 s Normal 11.7-14.9 [facility] Comment on above: Performed By: #### L 300.3900, L501.5100 ####[facility] [address] [place], [address] Urine Drug Screen (VISTA)on 03-23-2023 VISTA UDS PH 6 Normal [facility] Comment on above: Performed By: #### L 501.9100, L500.4050, L505.5000, L100.0100 #### [facility] [address] [place], [address] Absolute lymphocyte countOrd ered By: Daquan Redi on 03-22-2023 Lymphocytes Auto (Unsp spec) [#/Vol] 3.11 10*3/uL 0.83-4.51 [facility] Automated lymphocyte count a s percentage of total leukocytesOrdered By: Daquan Reid on 03-22-2023 Lymphocytes/100 WBC Auto (Unsp spec) 34.2 % 19-41 [facility] Basophil percentageOrdered B y: Daquan Reid on 03-22-2023 Basophils/100 WBC (Bld) 0.8 % 0-1 [facility] Bilirubin [Mass/Vol] 0.70 mg/dL 0.20-1.00 [facility] Comment on above: For patients on eltr ombopag therapy, use of Dimension [place] TBIL is not recommended. Chloride [Moles/Vol] 108 mmol/L 98-107 [facility] Eosinophils/100 WBC (Bld) 0.1 % 0-5 [facility] Glucose [Mass/Vol] 117 mg/dL 74-106 [facility] Comment on above: Fasting Glucose resu lt from 100 to 125 mg/dL suggests IMPAIRED HOMEOSTASIS per A.D.A. criteria. Hemoglobin (Bld) [Mass/Vol] 16.8 g/dL 13.0-16.5 [facility] Monocytes/100 WBC (Bld) 6.3 % 0-10 [facility] Neutrophils (Bld) [#/Vol] 5.3 10*3/uL 2.0-7.7 [facility] Neutrophils/100 WBC (Bld) 58.3 % 47-70 [facility] Potassium [Moles/Vol] 4.0 mmol/L 3.5-5.1 [facility] Protein [Mass/Vol] 8.1 g/dL 6.4-8.2 [facility] Sodium [Moles/Vol] 140 mmol/L 136-145 [facility] WBC (Bld) [#/Vol] 9.1 10*3/uL 4.4-11.0 [facility] Determination of erythrocyte mean corpuscular volume (MCV)Ordered By: Daquan Reid on 03-22-2023 MCV (RBC) [Entitic vol] 88.6 fL 80-94 [facility] Erythrocyte distribution wid th ratioOrdered By: Daquan Reid on 03-22-2023 Erythrocyte distribution width (RBC) [Ratio] 12.4 % 11.6-14.6 [facility] Erythrocyte distribution wid th standard deviationOrdered By: Daquan Reid on 03-22-2023 Erythrocyte distribution width (RBC) [Entitic vol] 40.2 fL 35.1-43.9 [facility] Hematocrit Auto (Bld) [Volum e fraction]Ordered By: Daquan Reid on 03-22-2023 Hematocrit (Bld) [Volume fraction] 46.8 % 40-54 [facility] Immature granulocytes/100 WB C Auto (Bld)Ordered By: Daquan Reid on 03-22-2023 Immature granulocytes/100 WBC (Bld) 0.300 % 0.0-0.9 [facility] Comment on above: IG% - Immature Granu locytes (promyelocytes, myelocytes and metamyelocytes) > 1% indicates that a LEFT SHIFT is Present. Laboratory - Chemistry and C hemistry - challengeOrdered By: Daquan Reid on 03-22-2023 Albumin/Globulin [Mass ratio] 1.2 {ratio} 0.9-2.4 [facility] ALP [Catalytic activity/Vol] 105 U/L 45-117 [facility] ALT [Catalytic activity/Vol] 27 U/L 16-61 [facility] CO2 [Moles/Vol] 25.0 mmol/L 21.0-32.0 [facility] Globulin (S) [Mass/Vol] 3.7 g/dL 2.2-4.2 [facility] Urea nitrogen/Creatinine [Mass ratio] 8.1 mg/mg 10-20 [facility] Laboratory - Chemistry and C hemistry - challengeOrdered By: Stan Thomas on 03-22-2023 Amylase [Catalytic activity/Vol] 34 U/L 15-85 [facility] - Drug toxicology Ordered By: Daquan Reid on 03-22-2023 Amphetamines Ql (U) Negative <1000 ng/mL [facility] Benzodiazepines Ql (U) Negative < 200 ng/mL [facility] Cannabinoids Screen Ql (U) Negative < 50 ng/mL [facility] Cocaine Ql (U) Negative < 300 ng/mL [facility] Opiates Ql (U) Negative < 300 ng/mL [facility] Laboratory - Hematology and Cell countsOrdered By: Daquan Reid on 03-22-2023 MCH (RBC) [Entitic mass] 31.8 pg 27.0-32.0 [facility] MCHC (RBC) [Mass/Vol] 35.9 g/dL 32-36 [facility] Nucleated RBC/100 WBC (Bld) [Ratio] 0 % 0-5 [facility] Platelet mean volume (Bld) [Entitic vol] 9.2 fL 6.2-12.0 [facility] Platelets (Bld) [#/Vol] 367 10*3/uL 150-450 [facility] No Panel InformationOrdered By: Daquan Franklin on 03-22-2023 Estimated Creatinine Clearance Calc 138.63 ml/min [facility] Estimated GFR (MDRD) Amer 137 mL/min >60 [facility] Comment on above: GFR Calc Estimated GFR (MDRD) Non-Af Amer 113 mL/min >60 [facility] Comment on above: Non- GFR Calc Ethyl Alcohol Level 212.0 mg/dL [facility] Comment on above: The serum:whole bloo d ethanol ratio is approximately 1.14and varies slightly with hematocrit. Medical Alcohol reference interval and critical value innon-tolerant individuals; 50 - 100 Impairment 100 Intoxication 100 - 250 Severe Poisoning 250 - 400 Deep/possible fatal coma MDMA (Ecstasy) Screen Negative < 500 ng/mL [facility] Urine Barbiturates Screen Negative < 200 ng/mL [facility] Urine Drug Screen Comment See comment [facility] Comment on above: CONFIRMATORY TESTING FOR ALL POSITIVE URINE DRUG SCREENRESULTS WILL ONLY BE SENT OUT UPON PHYSICIAN ORDER. VISTA Urine Drug Screen methods provide only preliminaryanalytical test results. A more specific alternate chemicalmethod must be used in order to obtain a confirmedanalytical result. Gas chromatography/mass spectrometery(GC/MS) is the preferred confirmatory method. Clinicalconsideration and professional judgement should be appliedto any drug of abuse test result, particularly whenpreliminary positive results are used. URINE TCA TESTING MUST BE ORDERED SEPARATELY. USE TESTMNEMONIC: UTCAPrevious reported result: Edited by: QI on 03/22/23:1854 AMENDED REPORT 03/22/23 2018 TO BE CONFIRMED previously reported as: CONFIRMATORY TESTING FOR ALL POSITIVE URINE DRUG SCREENRESULTS WILL ONLY BE SENT OUT UPON PHYSICIAN ORDER. VISTA Urine Drug Screen methods provide only preliminaryanalytical test results. A more specific alternate chemicalmethod must be used in order to obtain a confirmedanalytical result. Gas chromatography/mass spectrometery(GC/MS) is the preferred confirmatory method. Clinicalconsideration and professional judgement should be appliedto any drug of abuse test result, particularly whenpreliminary positive results are used. URINE TCA TESTING MUST BE ORDERED SEPARATELY. USE TESTMNEMONIC: UTCA Urine Methadone Screen Negative < 300 ng/mL [facility] RBC Auto (Bld) [#/Vol]Ordere d By: Daquan Reid on 03-22-2023 RBC (Bld) [#/Vol] 5.28 10*6/uL 4.6-6.2 [facility] Serum or plasma calcium gaetano urement (mass/volume)Ordered By: Daquan Reid on 03-22-2023 Calcium [Mass/Vol] 9.1 mg/dL 8.5-10.1 [facility] Serum or plasma creatinine m easurement (mass/volume)Ordered By: Daquan Reid on 03-22-2023 Creatinine [Mass/Vol] 0.86 mg/dL 0.70-1.30 [facility] Comment on above: The validity of the calculated GFR & GFRAA in patients over 70 years has not been determined. Clinical correlation is essential. Serum or plasma urea nitroge n measurement (mass/volume)Ordered By: Daquan Reid on 03-22-2023 Urea nitrogen [Mass/Vol] 7 mg/dL 7-18 [facility] Thin prep Papanicolaou smear with manual screeningOrdered By: Daquan Reid on 03-22-2023 Thin prep Papanicolaou smear with manual screening 4.4 g/dL 3.2-5.0 [facility] Thin prep Papanicolaou smear with manual screening 18 U/L 15-37 [facility] Thin prep Papanicolaou smear with manual screening 7 5-15 [facility] Urine phencyclidine (PCP) de tectionOrdered By: Daquan Reid on 03-22-2023 Phencyclidine Ql (U) Negative < 25 ng/mL [facility] Discharge Instructionon 06- Discharge Instruction [facility] Medical Records Department [address] [place] [address] Instructions for Home/Discharge Instructions 08/07/22917 MR#: [id number] Acct: [id number] Name: KADE VILLA Rep #: [id number] 4 : 1995 From: Carmelo Albert DO PCP: Care Physician,No Primary Status:ADM IN Discharge Instructions Diet Discharge Diet: No restrictions Follow Up Care Test Results: Test results from this visit will be discussed in further detail at your follow-up appointment, if applicable. Discharge Plan Admission Admit [...] Order can be placed): Home, Self Care 08/07/22918 Carmelo Albert DO CC: Dr. Ashley Hirsch, DO; No Primary Care Physician Signed Normal [facility] Absolute lymphocyte countOrd ered By: Vilma Cornelius on 08-05-2022 Lymphocytes Auto (Unsp spec) [#/Vol] 2.36 10*3/uL 0.83-4.51 [facility] Alcohol, Blood (Medical)-Ser umon 08-05-2022 SERUM ETOH 219.0 mg/dL Normal [facility] Comment on above: Result Comment: The serum:whole blood ethanol ratio is approximately 1.14 and varies slightly with hematocrit. Medical Alcohol reference interval and critical value in non-tolerant individuals; 50 - 100 Impairment 100 Intoxication 100 - 250 Severe Poisoning 250 - 400 Deep/possible fatal coma Performed By: #### L 501.9100, L500.2500, L100.0100, L500.3400, L505.5000 ####[facility] [address] [place], [address] Basic Metabolic Profile (BMP )on 08-05-2022 BUN/CRE 10.0 RATIO Normal 10-20 [facility] Comment on above: Performed By: #### L 501.9100, L500.2500, L100.0100, L500.3400, L505.5000 ####[facility] [address] [place], [address] CA,Total 8.2 mg/dL Low 8.5-10.1 [facility] Comment on above: Performed By: #### L 501.9100, L500.2500, L100.0100, L500.3400, L505.5000 ####[facility] [address] [place], [address] Chloride [Moles/Vol] 109 mmol/L High 98-107 [facility] Comment on above: Performed By: #### L 501.9100, L500.2500, L100.0100, L500.3400, L505.5000 ####[facility] [address] [place], [address] CO2 [Moles/Vol] 28.0 mmol/L Normal 21.0-32.0 [facility] Comment on above: Performed By: #### L 501.9100, L500.2500, L100.0100, L500.3400, L505.5000 ####[facility] [address] [place], [address] Creatinine [Mass/Vol] 0.80 mg/dL Normal 0.70-1.30 [facility] Comment on above: Result Comment: The validity of the calculated GFR GFRAA in patients over 70 years has not been determined. Clinical correlation is essential. Performed By: #### L 501.9100, L500.2500, L100.0100, L500.3400, L505.5000 ####[facility] [address] [place], [address] ECRCL 150.34 ml/min Normal [facility] Comment on above: Performed By: #### L 501.9100, L500.2500, L100.0100, L500.3400, L505.5000 ####[facility] [address] [place], [address] EST GFR - AA 151 mL/min Normal >60 [facility] Comment on above: Result Comment: Afri can [place]an GFR Calc Performed By: #### L 501.9100, L500.2500, L100.0100, L500.3400, L505.5000 ####[facility] [address] [place], [address] GAP 6 Normal 5-15 [facility] Comment on above: Performed By: #### L 501.9100, L500.2500, L100.0100, L500.3400, L505.5000 ####[facility] [address] [place], [address] GFR/1.73 sq M.predicted among non-blacks MDRD (S/P/Bld) [Vol rate/Area] 125 mL/min/{1.73_m2} Normal >60 [facility] Comment on above: Result Comment: Non- GFR Calc Performed By: #### L 501.9100, L500.2500, L100.0100, L500.3400, L505.5000 ####[facility] [address] [place], [address] Glucose [Mass/Vol] 116 mg/dL High 74-106 [facility] Comment on above: Result Comment: Fast ing Glucose result from 100 to 125 mg/dL suggests IMPAIRED HOMEOSTASIS per A.D.A. criteria. Performed By: #### L 501.9100, L500.2500, L100.0100, L500.3400, L505.5000 ####[facility] [address] [place], [address] Potassium [Moles/Vol] 4.0 mmol/L Normal 3.5-5.1 [facility] Comment on above: Performed By: #### L 501.9100, L500.2500, L100.0100, L500.3400, L505.5000 ####[facility] [address] [place], [address] Sodium [Moles/Vol] 143 mmol/L Normal 136-145 [facility] Comment on above: Performed By: #### L 501.9100, L500.2500, L100.0100, L500.3400, L505.5000 ####[facility] [address] [place], [address] Urea nitrogen [Mass/Vol] 8 mg/dL Normal 7-18 [facility] Comment on above: Performed By: #### L 501.9100, L500.2500, L100.0100, L500.3400, L505.5000 ####[facility] [address] [place], [address] Basophil percentageOrdered B y: Vilma Cornelius on 08-05-2022 Basophils/100 WBC (Bld) 1.0 % 0-1 [facility] Bilirubin [Mass/Vol] 0.70 mg/dL 0.20-1.00 [facility] Comment on above: For patients on eltr ombopag therapy, use of Dimension [place] TBIL is not recommended. Chloride [Moles/Vol] 109 mmol/L 98-107 [facility] Eosinophils/100 WBC (Bld) 0.3 % 0-5 [facility] Glucose [Mass/Vol] 116 mg/dL 74-106 [facility] Comment on above: Fasting Glucose resu lt from 100 to 125 mg/dL suggests IMPAIRED HOMEOSTASIS per A.D.A. criteria. Neutrophils (Bld) [#/Vol] 4.0 10*3/uL 2.0-7.7 [facility] Neutrophils/100 WBC (Bld) 56.8 % 47-70 [facility] Potassium [Moles/Vol] 4.0 mmol/L 3.5-5.1 [facility] Protein [Mass/Vol] 6.4 g/dL 6.4-8.2 [facility] Sodium [Moles/Vol] 143 mmol/L 136-145 [facility] WBC (Bld) [#/Vol] 7.1 10*3/uL 4.4-11.0 [facility] Blood erythrocytes count (nu mber/volume)Ordered By: Vilma Cornelius on 08-05-2022 RBC (Bld) [#/Vol] 4.56 10*6/uL 4.6-6.2 [facility] Blood hemoglobin measurement (mass/volume)Ordered By: Vilma Cornelius on 08-05-2022 Hemoglobin (Bld) [Mass/Vol] 14.6 g/dL 13.0-16.5 [facility] Blood lymphocytes/100 leukoc ytesOrdered By: Vilma Cornelius on 08-05-2022 Lymphocytes/100 WBC (Bld) 33.2 % 19-41 [facility] Blood monocytes/100 leukocyt esOrdered By: Vilma Cornelius on 08-05-2022 Monocytes/100 WBC (Bld) 8.3 % 0-10 [facility] Blood platelet mean volumeOr dered By: Vilma Cornelius on 08-05-2022 Platelet mean volume (Bld) [Entitic vol] 9.1 fL 6.2-12.0 [facility] CBC W/Diff, Automatedon - Absolute Lymph 2.36 X10 3/uL Normal 0.83-4.51 [facility] Comment on above: Performed By: #### L 501.9100, L500.2500, L100.0100, L500.3400, L505.5000 ####[facility] [address] [place], [address] Absolute Neut 4.0 X10 3/uL Normal 2.0-7.7 [facility] Comment on above: Performed By: #### L 501.9100, L500.2500, L100.0100, L500.3400, L505.5000 ####[facility] [address] [place], [address] Basophils/100 WBC (Bld) 1.0 % Normal 0-1 [facility] Comment on above: Performed By: #### L 501.9100, L500.2500, L100.0100, L500.3400, L505.5000 ####[facility] [address] [place], [address] Eosinophils/100 WBC (Bld) 0.3 % Normal 0-5 [facility] Comment on above: Performed By: #### L 501.9100, L500.2500, L100.0100, L500.3400, L505.5000 ####[facility] [address] [place], [address] Erythrocyte distribution width (RBC) [Ratio] 11.6 % Normal 11.6-14.6 [facility] Comment on above: Performed By: #### L 501.9100, L500.2500, L100.0100, L500.3400, L505.5000 ####[facility] [address] [place], [address] Hematocrit (Bld) [Volume fraction] 41.3 % Normal 40-54 [facility] Comment on above: Performed By: #### L 501.9100, L500.2500, L100.0100, L500.3400, L505.5000 ####[facility] [address] [place], [address] Hemoglobin (Bld) [Mass/Vol] 14.6 g/dL Normal 13.0-16.5 [facility] Comment on above: Performed By: #### L 501.9100, L500.2500, L100.0100, L500.3400, L505.5000 ####[facility] [address] [place], [address] IG% 0.400 Normal 0.0-0.9 [facility] Comment on above: Result Comment: IG% - Immature Granulocytes (promyelocytes, myelocytes and metamyelocytes) > 1% indicates that a LEFT SHIFT is Present. Performed By: #### L 501.9100, L500.2500, L100.0100, L500.3400, L505.5000 ####[facility] [address] [place], [address] Lymphocytes/100 WBC (Bld) 33.2 % Normal 19-41 [facility] Comment on above: Performed By: #### L 501.9100, L500.2500, L100.0100, L500.3400, L505.5000 ####[facility] [address] [place], [address] MCH (RBC) [Entitic mass] 32.0 pg Normal 27.0-32.0 [facility] Comment on above: Performed By: #### L 501.9100, L500.2500, L100.0100, L500.3400, L505.5000 ####[facility] [address] [place], [address] MCHC (RBC) [Mass/Vol] 35.4 g/dL Normal 32-36 [facility] Comment on above: Performed By: #### L 501.9100, L500.2500, L100.0100, L500.3400, L505.5000 ####[facility] [address] [place], [address] MCV (RBC) [Entitic vol] 90.6 fL Normal 80-94 [facility] Comment on above: Performed By: #### L 501.9100, L500.2500, L100.0100, L500.3400, L505.5000 ####[facility] [address] [place], [address] Monocytes/100 WBC (Bld) 8.3 % Normal 0-10 [facility] Comment on above: Performed By: #### L 501.9100, L500.2500, L100.0100, L500.3400, L505.5000 ####[facility] [address] [place], [address] Neutrophils/100 WBC (Bld) 56.8 % Normal 47-70 [facility] Comment on above: Performed By: #### L 501.9100, L500.2500, L100.0100, L500.3400, L505.5000 ####[facility] [address] [place], [address] Nucleated RBC (Bld) [#/Vol] 0 10*3/uL Normal 0-5 [facility] Comment on above: Performed By: #### L 501.9100, L500.2500, L100.0100, L500.3400, L505.5000 ####[facility] [address] [place], [address] Platelet mean volume (Bld) [Entitic vol] 9.1 fL Normal 6.2-12.0 [facility] Comment on above: Performed By: #### L 501.9100, L500.2500, L100.0100, L500.3400, L505.5000 ####[facility] [address] [place], [address] Platelets (Bld) [#/Vol] 249 10*3/uL Normal 150-450 [facility] Comment on above: Performed By: #### L 501.9100, L500.2500, L100.0100, L500.3400, L505.5000 ####[facility] [address] [place], [address] RBC (Bld) [#/Vol] 4.56 10*6/uL Low 4.6-6.2 [facility] Comment on above: Performed By: #### L 501.9100, L500.2500, L100.0100, L500.3400, L505.5000 ####[facility] [address] [place], [address] RDW SD 38.1 fl Normal 35.1-43.9 [facility] Comment on above: Performed By: #### L 501.9100, L500.2500, L100.0100, L500.3400, L505.5000 ####[facility] [address] [place], [address] WBC (Bld) [#/Vol] 7.1 10*3/uL Normal 4.4-11.0 [facility] Comment on above: Performed By: #### L 501.9100, L500.2500, L100.0100, L500.3400, L505.5000 ####[facility] [address] [place], [address] Determination of erythrocyte mean corpuscular volume (MCV)Ordered By: Vilma Cornelius on 08-05-2022 MCV (RBC) [Entitic vol] 90.6 fL 80-94 [facility] Direct bilirubinOrdered By: Vilma Cornelius on 08-05-2022 Bilirubin.direct [Mass/Vol] 0.19 mg/dL 0.00-0.30 [facility] Emergency Department Summary on 08-05-2022 Emergency Department Summary [facility] Medical Records Department [address] [place] [address] Emergency Department Summary 08/05/22 MR#: [id number] Acct: [id number] Name: KADE VILLA Rep #: [id number] : 1995 26 From: Vilma CAMPA PCP: Care Physician,No Primary Status:ADM IN Location: [place] [address] HPI History of Present Illness Chief Complaint: Substance Abuse Narrative Narrative: 26-year-old male who is here for detox. He states he drinks alcohol, smokes crack cocaine, and uses meth. Denies IV drug use. He last used drugs yesterday and and last alcoholic drink was on the way into the ER. He drinks about ten 24 ounce beers a day and also multiple shots. He has detoxed several times in the past but denies history of seizures or DTs. [facility] Medical History (Updated 08/05/22 @ 17:[address] Ashley Hirsch, DO) No acute medical problems Polysubstance abuse Tobacco abuse Home Medications NK 08/05/22 [History Last Taken Unknown] Allergy/AdvReac Type Severity Reaction Status Date / Time No Known Allergies Allergy Verified 08/05/22 16:09 Social History Smoking Status: Current every day smoker tobacco type: cigarettes ROS ROS ED ROS Narrative Constitutional: Negative for fever, chills, malaise. CVS: Negative for palpitations, chest pain. Respiratory: Negative for shortness of breath. GI: Negative for abdominal pain, nausea, vomiting. Neuro: Negative for headache. EXAM Physical Exam Narrative Exam Narrative: CONST: Patient [...] Blood Pressure Mean 96 Pulse Ox 97 Physical Exam Const Vital Signs: 08/05/22 15:22 Temperature 97.7 F L Temperature Source Temporal Pulse Rate 100 Respiratory Rate 16 Blood Pressure 132/79 H Blood Pressure Mean 96 Pulse Ox 97 MDM MDM MDM Narrative Medical decision making [...] % (Auto) 56.8 Lymph % (Auto) 33.2 [place] % (Auto) 8.3 Eos % (Auto) 0.3 [...] (Auto) Neut % (Auto) Lymph % (Auto) [place] % (Auto) Eos % (Auto) Baso % (Auto) Absolute Neuts (auto) Absolute Lymphs (auto) Nucleated RBC % Sodium Potassium Chloride Carbon Dioxide Anion Gap BUN Creatinine Estim Creat Clear Calc Est GFR (MDRD) Af Amer Est GFR (MDRD) Non-Af BUN/Creatinine Ratio Glucose Calcium Total Bilirubin Direct Bilirubin AST ALT Alkaline (more content not included)... Normal [facility] H AND P Exam - Hospital[facility] 08-05-2022 H&P Exam - Hospitalist [facility] Medical Records Department [address] [place] [address] H P Exam - Hospitalist 08/05/22 1701 MR#: [id number] Acct: [id number] Name: KADE VILLA Rep #: [id number] : 1995 From: Ashlye Hirsch DO PCP: Care Physician,No Primary Status:ADM IN Location: MS3 [id number] HPI - General General Date of Admission: 08/05/22 Date of Service: 08/05/22 Chief Complaint: Desire for detoxification from alcohol HPI Narrative KADE VILLA, is a 26 M who presented to the emergency department at [facility] on 08/05/2022 requesting detox from alcohol. The patient states he has been in inpatient rehab twice in the last year. The first time for 3 months and the last time for a few weeks. He just left rehab about a week ago. He started drinking as soon as [...] was 219. Vital signs were stable on presen tation with mild tachycardia. Blood pressure is 132/79. His CBC and CMP were unremarkable. He den ies ever utilizing IV drugs. He admits to smoking 1 pack or more of cigarettes daily. His plan at discharge is for readmission into inpatient rehab. [facility] Medical History No acute medical problems Polysubstance abuse Tobacco abuse Home Medications NK 08/05/22 [History Last Taken Unknown] Allergy/AdvReac Type Severity Reaction Status Date / Time No Known Allergies Allergy Verified 08/05/22 16:09 no significant family history no surgical history Social History (Updated 08/05/22 @ 17:[address] Ashley Hirsch DO) Smoking Status: Current every day smoker tobacco type: cigarettes Smoking packs per day: 1 Smoking cigarettes per day: 20.0 [...] hematuria, nocturia, urinary frequency, urinary hesitancy, urinary incontinence, urinary urgency or other Musculoskeletal Musculoskeletal: Reports myalgias; [...] x3, no apparent distress, average body habitus, heal (more content not included)... Normal [facility] Hematocrit Auto (Bld) [Volum e fraction]Ordered By: Vilma Cornelius on 08-05-2022 Hematocrit (Bld) [Volume fraction] 41.3 % 40-54 [facility] Laboratory - Chemistry and C hemistry - challengeOrdered By: Vilma Cornelius on 08-05-2022 ALP [Catalytic activity/Vol] 73 U/L 45-117 [facility] ALT [Catalytic activity/Vol] 24 U/L 16-61 [facility] CO2 [Moles/Vol] 28.0 mmol/L 21.0-32.0 [facility] Globulin (S) [Mass/Vol] 2.9 g/dL 2.2-4.2 [facility] Urea nitrogen/Creatinine [Mass ratio] 10.0 mg/mg 10-20 [facility] - Drug toxicology Ordered By: Vilma Cornelius on 08-05-2022 Amphetamines Ql (U) Negative <1000 ng/mL [facility] Benzodiazepines Ql (U) Negative < 200 ng/mL [facility] Cannabinoids Screen Ql (U) Negative < 50 ng/mL [facility] Cocaine Ql (U) Positive < 300 ng/mL [facility] Opiates Ql (U) Negative < 300 ng/mL [facility] Laboratory - Hematology and Cell countsOrdered By: Vilma Cornelius on 08-05-2022 Erythrocyte distribution width (RBC) [Entitic vol] 38.1 fL 35.1-43.9 [facility] Erythrocyte distribution width (RBC) [Ratio] 11.6 % 11.6-14.6 [facility] Immature granulocytes/100 WBC (Bld) 0.400 % 0.0-0.9 [facility] Comment on above: IG% - Immature Granu locytes (promyelocytes, myelocytes and metamyelocytes) > 1% indicates that a LEFT SHIFT is Present. MCH (RBC) [Entitic mass] 32.0 pg 27.0-32.0 [facility] Nucleated RBC/100 WBC (Bld) [Ratio] 0 % 0-5 [facility] Liver Profileon 08-05-2022 Albumin [Mass/Vol] 3.5 g/dL Normal 3.2-5.0 [facility] Comment on above: Performed By: #### L 501.9100, L500.2500, L100.0100, L500.3400, L505.5000 ####[facility] [address] [place], [address] ALK P 73 U/L Normal 45-117 [facility] Comment on above: Performed By: #### L 501.9100, L500.2500, L100.0100, L500.3400, L505.5000 ####[facility] [address] [place], [address] ALT [Catalytic activity/Vol] 24 U/L Normal 16-61 [facility] Comment on above: Performed By: #### L 501.9100, L500.2500, L100.0100, L500.3400, L505.5000 ####[facility] [address] [place], [address] AST [Catalytic activity/Vol] 17 U/L Normal 15-37 [facility] Comment on above: Performed By: #### L 501.9100, L500.2500, L100.0100, L500.3400, L505.5000 ####[facility] [address] [place], [address] Bilirubin [Mass/Vol] 0.70 mg/dL Normal 0.20-1.00 [facility] Comment on above: Result Comment: For patients on eltrombopag therapy, use of Dimension [place] TBIL is not recommended. Performed By: #### L 501.9100, L500.2500, L100.0100, L500.3400, L505.5000 ####[facility] [address] [place], [address] Bilirubin.direct [Mass/Vol] 0.19 mg/dL Normal 0.00-0.30 [facility] Comment on above: Performed By: #### L 501.9100, L500.2500, L100.0100, L500.3400, L505.5000 ####[facility] [address] [place], [address] Globulin (S) [Mass/Vol] 2.9 g/dL Normal 2.2-4.2 [facility] Comment on above: Performed By: #### L 501.9100, L500.2500, L100.0100, L500.3400, L505.5000 ####[facility] [address] [place], [address] T PROT 6.4 g/dL Normal 6.4-8.2 [facility] Comment on above: Performed By: #### L 501.9100, L500.2500, L100.0100, L500.3400, L505.5000 ####[facility] [address] [place], [address] MCHC Auto (RBC) [Mass/Vol]Or dered By: Vilma Cornelius on 08-05-2022 MCHC (RBC) [Mass/Vol] 35.4 g/dL 32-36 [facility] No Panel InformationOrdered By: Vilma Cornelius on 08-05-2022 MDMA (Ecstasy) Screen Negative < 500 ng/mL [facility] Urine Barbiturates Screen Negative < 200 ng/mL [facility] Urine Drug Screen Comment [facility] Comment on above: CONFIRMATORY TESTING FOR ALL POSITIVE URINE DRUG SCREENRESULTS WILL ONLY BE SENT OUT UPON PHYSICIAN ORDER. [facility]ISTA Urine Drug Screen methods provide only preliminaryanalytical test results. A more specific alternate chemicalmethod must be used in order to obtain a confirmedanalytical result. Gas chromatography/mass spectrometery(GC/MS) is the preferred confirmatory method. Clinicalconsideration and professional judgement should be appliedto any drug of abuse test result, particularly whenpreliminary positive results are used. URINE TCA TESTING MUST BE ORDERED SEPARATELY. USE TESTMNEMONIC: [facility] Urine Methadone Screen Negative < 300 ng/mL [facility] Estimated Creatinine Clearance Calc 150.34 ml/min [facility] Estimated GFR (MDRD) Amer 151 mL/min >60 [facility] Comment on above: GFR Calc Estimated GFR (MDRD) Non-Af Amer 125 mL/min >60 [facility] Comment on above: Non- GFR Calc Ethyl Alcohol Level 219.0 mg/dL [facility] Comment on above: The serum:whole bloo d ethanol ratio is approximately 1.14and varies slightly with hematocrit. Medical Alcohol reference interval and critical value innon-tolerant individuals; 50 - 100 Impairment 100 Intoxication 100 - 250 Severe Poisoning 250 - 400 Deep/possible fatal coma Platelets bldOrdered By: Geraldine Cornelius on 08-05-2022 Platelets (Bld) [#/Vol] 249 10*3/uL 150-450 [facility] Serum or plasma albumin gaetano urement (mass/volume)Ordered By: Vilma Cornelius on 08-05-2022 Albumin [Mass/Vol] 3.5 g/dL 3.2-5.0 [facility] Serum or plasma calcium gaetano urement (mass/volume)Ordered By: Vilma Cornelius on 08-05-2022 Calcium [Mass/Vol] 8.2 mg/dL 8.5-10.1 [facility] Serum or plasma creatinine m easurement (mass/volume)Ordered By: Vilma Cornelius on 08-05-2022 Creatinine [Mass/Vol] 0.80 mg/dL 0.70-1.30 [facility] Comment on above: The validity of the calculated GFR & GFRAA in patients over 70 years has not been determined. Clinical correlation is essential. Serum or plasma urea nitroge n measurement (mass/volume)Ordered By: Vilma Cornelius on 08-05-2022 Urea nitrogen [Mass/Vol] 8 mg/dL 7-18 [facility] Thin prep Papanicolaou smear with manual screeningOrdered By: Vilma Cornelius on 08-05-2022 Thin prep Papanicolaou smear with manual screening 17 U/L 15-37 [facility] Thin prep Papanicolaou smear with manual screening 6 5-15 [facility] Urine Drug Screen (VISTA)on 08-05-2022 AMPHETAMINES Negative Normal <1000 ng/mL [facility] Comment on above: Performed By: #### L 501.9100, L500.2500, L100.0100, L500.3400, L505.5000 ####[facility] [address] [place] [address] BARBITIURATES Negative Normal < 200 ng/mL [facility] Comment on above: Performed By: #### L 501.9100, L500.2500, L100.0100, L500.3400, L505.5000 ####[facility] [address] [place] [address] BENZODIAZIPINE Negative Normal < 200 ng/mL [facility] Comment on above: Performed By: #### L 501.9100, L500.2500, L100.0100, L500.3400, L505.5000 ####[facility] [address] [place] [address] COCAINE Positive Abnormal < 300 ng/mL [facility] Comment on above: Performed By: #### L 501.9100, L500.2500, L100.0100, L500.3400, L505.5000 ####[facility] [address] [place] [address] ECSTACY Negative Normal < 500 ng/mL [facility] Comment on above: Performed By: #### L 501.9100, L500.2500, L100.0100, L500.3400, L505.5000 ####[facility] [address] [place] [address] METHADONE Negative Normal < 300 ng/mL [facility] Comment on above: Performed By: #### L 501.9100, L500.2500, L100.0100, L500.3400, L505.5000 ####[facility] [address] [place] [address] OPIATES Negative Normal < 300 ng/mL [facility] Comment on above: Performed By: #### L 501.9100, L500.2500, L100.0100, L500.3400, L505.5000 ####[facility] [address] [place], [address] PCP Negative Normal < 25 ng/mL [facility] Comment on above: Performed By: #### L 501.9100, L500.2500, L100.0100, L500.3400, L505.5000 ####[facility] [address] [place], [address] THC Negative Normal < 50 ng/mL [facility] Comment on above: Performed By: #### L 501.9100, L500.2500, L100.0100, L500.3400, L505.5000 ####[facility] [address] [place], [address] VISTA UDS PH 7 Normal [facility] Comment on above: Performed By: #### L 501.9100, L500.2500, L100.0100, L500.3400, L505.5000 ####[facility] [address] [place], [address] Urine phencyclidine (PCP) de tectionOrdered By: Vilma Cornelius on 08-05-2022 Phencyclidine Ql (U) Negative < 25 ng/mL [facility] Vital Signs Date Time Vital Sign Value Performing Clinician Facility 10-02-2024 04:06-0400 Body height 180.34 cm No Primary Care Physician [facility] 10-02-2024 04:06-0400 Body mass index (BMI) [Ratio] 25.4 kg/m2 No Primary Care Physician [facility] 10-02-2024 04:06-0400 Body temperature 98.4 [degF] No Primary Care Physician [facility] 10-02-2024 04:06-0400 Body weight 83 kg No Primary Care Physician [facility] 10-02-2024 04:06-0400 Diastolic blood pressure 92 mm[Hg] No Primary Care Physician [facility] 10-02-2024 04:06-0400 Heart rate 97 /min No Primary Care Physician [facility] 10-02-2024 04:06-0400 Respiratory rate 18 /min No Primary Care Physician [facility] 10-02-2024 04:06-0400 SaO2% (BldA) [Mass fraction] 99 % No Primary Care Physician [facility] 10-02-2024 04:06-0400 Systolic blood pressure 144 mm[Hg] No Primary Care Physician [facility] 10-01-2024 14:00-0400 Body temperature 97.6 [degF] No Primary Care Physician [facility] 10-01-2024 14:00-0400 Diastolic blood pressure 73 mm[Hg] No Primary Care Physician [facility] 10-01-2024 14:00-0400 Heart rate 54 /min No Primary Care Physician [facility] 10-01-2024 14:00-0400 Respiratory rate 12 /min No Primary Care Physician [facility] 10-01-2024 14:00-0400 SaO2% (BldA) [Mass fraction] 98 % No Primary Care Physician [facility] 10-01-2024 14:00-0400 Systolic blood pressure 131 mm[Hg] No Primary Care Physician [facility] 10-01-2024 10:00-0400 Inhaled oxygen flow rate 99 L/min No Primary Care Physician [facility] 10-01-2024 01:52-0400 Body height 180.34 cm No Primary Care Physician [facility] 10-01-2024 01:52-0400 Body mass index (BMI) [Ratio] 25.7 kg/m2 No Primary Care Physician [facility] 10-01-2024 01:52-0400 Body weight 83.46 kg No Primary Care Physician [facility] 06-11-2024 07:27-0400 Diastolic blood pressure 83 mm[Hg] [facility] 06-11-2024 07:27-0400 Heart rate 80 /min [facility] 06-11-2024 07:27-0400 Respiratory rate 18 /min [facility] 06-11-2024 07:27-0400 SaO2% (BldA) [Mass fraction] 98 % [facility] 06-11-2024 07:27-0400 Systolic blood pressure 126 mm[Hg] [facility] 06-11-2024 04:18-0400 Body temperature 97.3 [degF] [facility] 06-11-2024 04:14-0400 Body height 180.[address] [facility] 06-11-2024 04:14-0400 Body mass index (BMI) [Ratio] 24.55 kg/m2 [facility] 06-11-2024 04:14-0400 Body weight 79.[address] [facility] 06-10-2024 22:29-0400 Body height 180.[address] [facility] 06-10-2024 22:29-0400 Body mass index (BMI) [Ratio] 24.55 kg/m2 [facility] 06-10-2024 22:29-0400 Body weight 79.[address] [facility] 06-10-2024 22:26-0400 Body temperature 96.3 [degF] [facility] 06-10-2024 22:26-0400 Diastolic blood pressure 96 mm[Hg] [facility] 06-10-2024 22:26-0400 Heart rate 108 /min [facility] 06-10-2024 22:26-0400 Respiratory rate 16 /min [facility] 06-10-2024 22:26-0400 SaO2% (BldA) [Mass fraction] 97 % [facility] 06-10-2024 22:26-0400 Systolic blood pressure 144 mm[Hg] [facility] 01-28-2024 13:37-0500 Body height 180.3 cm Christy Shital REGENERATOR OPERATOR - PHARMACY SPECIALIST Work Phone: [facility] 01-28-2024 13:37-0500 Body mass index (BMI) [Ratio] 27.06 kg/m2 Christy Shital REGENERATOR OPERATOR - PHARMACY SPECIALIST Work Phone: [facility] 01-28-2024 13:37-0500 Body temperature 98.4 [degF] Christy Shital REGENERATOR OPERATOR - PHARMACY SPECIALIST Work Phone: [facility] 01-28-2024 13:37-0500 Body weight 88 kg Christy Shital REGENERATOR OPERATOR - PHARMACY SPECIALIST Work Phone: [facility] 01-28-2024 13:37-0500 Diastolic blood pressure 75 mm[Hg] Christy Shital REGENERATOR OPERATOR - PHARMACY SPECIALIST Work Phone: [facility] 01-28-2024 13:37-0500 Heart rate 90 /min Christy Shital REGENERATOR OPERATOR - PHARMACY SPECIALIST Work Phone: [facility] 01-28-2024 13:37-0500 Respiratory rate 17 /min Christy Shital REGENERATOR OPERATOR - PHARMACY SPECIALIST Work Phone: [facility] 01-28-2024 13:37-0500 SaO2% (BldA) [Mass fraction] 98 % Christy Shital REGENERATOR OPERATOR - PHARMACY SPECIALIST Work Phone: [facility] 01-28-2024 13:37-0500 Systolic blood pressure 117 mm[Hg] Christy Shital REGENERATOR OPERATOR - PHARMACY SPECIALIST Work Phone: [facility] 06-20-2023 19:15-0400 Body temperature 97.88 [degF] OLIVIER VASQUES REGENERATOR OPERATOR-TELETRAY OPERATOR [facility] 06-20-2023 19:15-0400 Diastolic Blood Pressure Non-Invasive 90 mm[Hg] OLIVIER VASQUES REGENERATOR OPERATOR-TELETRAY OPERATOR [facility] 06-20-2023 19:15-0400 Heart rate 87 /min OLIVIER VASQUES REGENERATOR OPERATOR-TELETRAY OPERATOR [facility] 06-20-2023 19:15-0400 Reason For Taking VItal Signs OLIVIER VASQUES REGENERATOR OPERATOR-TELETRAY OPERATOR [facility] 06-20-2023 19:15-0400 Respiratory rate 16 /min OLIVIER VASQUES REGENERATOR OPERATOR-TELETRAY OPERATOR [facility] 06-20-2023 19:15-0400 Systolic Blood Pressure Non-Invasive 144 mm[Hg] OLIVIER VASQUES REGENERATOR OPERATOR-TELETRAY OPERATOR [facility] 06-20-2023 17:05-0400 Body temperature 97.88 [degF] OLIVIER VASQUES REGENERATOR OPERATOR-TELETRAY OPERATOR [facility] 06-20-2023 17:05-0400 Diastolic Blood Pressure Non-Invasive 87 mm[Hg] OLIVIER VASQUES REGENERATOR OPERATOR-TELETRAY OPERATOR [facility] 06-20-2023 17:05-0400 Heart rate 93 /min OLIVIER VASQUES REGENERATOR OPERATOR-TELETRAY OPERATOR [facility] 06-20-2023 17:05-0400 Reason For Taking VItal Signs OLIVIER VASQUES REGENERATOR OPERATOR-TELETRAY OPERATOR [facility] 06-20-2023 17:05-0400 Respiratory rate 14 /min OLIVIER VASQUES REGENERATOR OPERATOR-TELETRAY OPERATOR [facility] 06-20-2023 17:05-0400 Systolic Blood Pressure Non-Invasive 134 mm[Hg] OLIVIER VASQUES REGENERATOR OPERATOR-TELETRAY OPERATOR [facility] 06-20-2023 14:30-0400 Diastolic Blood Pressure Non-Invasive 93 mm[Hg] OLIVIER VASQUES REGENERATOR OPERATOR-TELETRAY OPERATOR [facility] 06-20-2023 14:30-0400 Systolic Blood Pressure Non-Invasive 138 mm[Hg] OLIVIER VASQUES REGENERATOR OPERATOR-TELETRAY OPERATOR [facility] 06-20-2023 14:24-0400 Body temperature 97.52 [degF] OLIVIER VASQUES REGENERATOR OPERATOR-TELETRAY OPERATOR [facility] 06-20-2023 14:24-0400 Heart rate 80 /min OLIVIER VASQUES REGENERATOR OPERATOR-TELETRAY OPERATOR [facility] 06-20-2023 14:24-0400 Reason For Taking VItal Signs OLIVIER VASQUES REGENERATOR OPERATOR-TELETRAY OPERATOR [facility] 06-20-2023 14:24-0400 Respiratory rate 14 /min OLIVIER VASQUES REGENERATOR OPERATOR-TELETRAY OPERATOR [facility] 06-20-2023 05:41-0400 Body height 180.3 cm OLIVIER LAYO REGENERATOR OPERATOR-TELETRAY OPERATOR [facility] 06-20-2023 05:41-0400 Body weight 95.3 kg OLIVIER LAYO REGENERATOR OPERATOR-TELETRAY OPERATOR [facility] 06-20-2023 05:41-0400 Body weight 29.32 kg/m2 OLIVIER LAYO REGENERATOR OPERATOR-TELETRAY OPERATOR [facility] 06-20-2023 05:35-0400 Blood Pressure Location OLIVIER VASQUES REGENERATOR OPERATOR-TELETRAY OPERATOR [facility] 06-20-2023 04:49-0400 Blood Pressure Location OLIVIER VASQUES REGENERATOR OPERATOR-TELETRAY OPERATOR [facility] 06-20-2023 04:49-0400 Blood Pressure Method OLIVIER VASQUES REGENERATOR OPERATOR-TELETRAY OPERATOR [facility] 06-20-2023 04:49-0400 Heart rate 80 /min OLIVIER VASQUES REGENERATOR OPERATOR-TELETRAY OPERATOR [facility] 06-20-2023 04:18-0400 Blood Pressure Location OLIVIER LAYO REGENERATOR OPERATOR-TELETRAY OPERATOR [facility] 06-20-2023 04:18-0400 Blood Pressure Method OLIVIER VASQUES REGENERATOR OPERATOR-TELETRAY OPERATOR [facility] 06-20-2023 04:18-0400 Heart rate 87 /min OLIVIER VASQUES REGENERATOR OPERATOR-TELETRAY OPERATOR [facility] 06-20-2023 03:04-0400 Blood Pressure Method OLIVIER VASQUES REGENERATOR OPERATOR-TELETRAY OPERATOR [facility] 06-20-2023 03:04-0400 Heart rate 107 /min OLIVIER VASQUES REGENERATOR OPERATOR-TELETRAY OPERATOR [facility] 06-20-2023 02:15-0400 Body height 180.3 cm OLIVIER VASQUES REGENERATOR OPERATOR-TELETRAY OPERATOR [facility] 06-20-2023 02:15-0400 Body weight 95 kg OLIVIER VASQUES REGENERATOR OPERATOR-TELETRAY OPERATOR [facility] 06-20-2023 00:48-0400 Body temperature 97.4 [degF] No Primary Care Physician [facility] 06-20-2023 00:48-0400 Diastolic blood pressure 85 mm[Hg] No Primary Care Physician [facility] 06-20-2023 00:48-0400 Heart rate 68 /min No Primary Care Physician [facility] 06-20-2023 00:48-0400 Respiratory rate 16 /min No Primary Care Physician [facility] 06-20-2023 00:48-0400 SaO2% (BldA) [Mass fraction] 100 % No Primary Care Physician [facility] 06-20-2023 00:48-0400 Systolic blood pressure 151 mm[Hg] No Primary Care Physician [facility] 06-19-2023 20:58-0400 Body height 180.34 cm No Primary Care Physician [facility] 06-19-2023 20:58-0400 Body mass index (BMI) [Ratio] 29 kg/m2 No Primary Care Physician [facility] 06-19-2023 20:58-0400 Body weight 94.46 kg No Primary Care Physician [facility] 05-01-2023 13:42-0400 Body temperature 97.4 [degF] No Primary Care Physician [facility] 05-01-2023 13:42-0400 Diastolic blood pressure 78 mm[Hg] No Primary Care Physician [facility] 05-01-2023 13:42-0400 Heart rate 55 /min No Primary Care Physician [facility] 05-01-2023 13:42-0400 Respiratory rate 17 /min No Primary Care Physician [facility] 05-01-2023 13:42-0400 SaO2% (BldA) [Mass fraction] 98 % No Primary Care Physician [facility] 05-01-2023 13:42-0400 Systolic blood pressure 138 mm[Hg] No Primary Care Physician [facility] 05-01-2023 06:45-0400 Body height 180.34 cm No Primary Care Physician [facility] 05-01-2023 06:45-0400 Body mass index (BMI) [Ratio] 28 kg/m2 No Primary Care Physician [facility] 05-01-2023 06:45-0400 Body weight 91.4 kg No Primary Care Physician [facility] 05-01-2023 05:52-0400 Body temperature 97.1 [degF] No Primary Care Physician [facility] 05-01-2023 05:52-0400 Diastolic blood pressure 84 mm[Hg] No Primary Care Physician [facility] 05-01-2023 05:52-0400 Heart rate 96 /min No Primary Care Physician [facility] 05-01-2023 05:52-0400 Respiratory rate 14 /min No Primary Care Physician [facility] 05-01-2023 05:52-0400 SaO2% (BldA) [Mass fraction] 99 % No Primary Care Physician [facility] 05-01-2023 05:52-0400 Systolic blood pressure 124 mm[Hg] No Primary Care Physician [facility] 05-01-2023 05:05-0400 Body height 180.34 cm No Primary Care Physician [facility] 03-23-2023 10:40-0500 Body temperature 98.3 [degF] No Primary Care Physician [facility] 03-23-2023 10:40-0500 Diastolic blood pressure 84 mm[Hg] No Primary Care Physician [facility] 03-23-2023 10:40-0500 Heart rate 87 /min No Primary Care Physician [facility] 03-23-2023 10:40-0500 Respiratory rate 16 /min No Primary Care Physician [facility] 03-23-2023 10:40-0500 SaO2% (BldA) [Mass fraction] 96 % No Primary Care Physician [facility] 03-23-2023 10:40-0500 Systolic blood pressure 133 mm[Hg] No Primary Care Physician [facility] 03-23-2023 05:34-0500 Body temperature 98.3 [degF] No Primary Care Physician [facility] 03-23-2023 05:34-0500 Diastolic blood pressure 58 mm[Hg] No Primary Care Physician [facility] 03-23-2023 05:34-0500 Heart rate 86 /min No Primary Care Physician [facility] 03-23-2023 05:34-0500 Respiratory rate 17 /min No Primary Care Physician [facility] 03-23-2023 05:34-0500 SaO2% (BldA) [Mass fraction] 98 % No Primary Care Physician [facility] 03-23-2023 05:34-0500 Systolic blood pressure 113 mm[Hg] No Primary Care Physician [facility] 03-23-2023 01:01-0500 Body height 180.34 cm No Primary Care Physician [facility] 03-23-2023 01:01-0500 Body mass index (BMI) [Ratio] 27.6 kg/m2 No Primary Care Physician [facility] 03-23-2023 01:01-0500 Body weight 89.81 kg No Primary Care Physician [facility] 03-22-2023 22:04-0500 Body height 180.34 cm No Primary Care Physician [facility] 03-22-2023 22:04-0500 Body mass index (BMI) [Ratio] 27.6 kg/m2 No Primary Care Physician [facility] 03-22-2023 22:04-0500 Body temperature 97.5 [degF] No Primary Care Physician [facility] 03-22-2023 22:04-0500 Body weight 89.81 kg No Primary Care Physician [facility] 03-22-2023 22:04-0500 Diastolic blood pressure 86 mm[Hg] No Primary Care Physician [facility] 03-22-2023 22:04-0500 Heart rate 108 /min No Primary Care Physician [facility] 03-22-2023 22:04-0500 Respiratory rate 18 /min No Primary Care Physician [facility] 03-22-2023 22:04-0500 SaO2% (BldA) [Mass fraction] 96 % No Primary Care Physician [facility] 03-22-2023 22:04-0500 Systolic blood pressure 135 mm[Hg] No Primary Care Physician [facility] 08-07-2022 08:32-0400 Body temperature 97.9 [degF] Dr. Fior Ridley Work Phone: 9(652)686-554697 [place] [address] 08-07-2022 08:32-0400 Diastolic blood pressure 63 mm[Hg] Dr. Fior Ridley Work Phone: 0(435)820-619597 [place] [address] 08-07-2022 08:32-0400 Heart rate 81 /min Dr. Fior Ridley Work Phone: 1(773)945-884197 [place] [address] 08-07-2022 08:32-0400 Respiratory rate 18 /min Dr. Fior Ridley Work Phone: 2(091)559-739097 [place] [address] 08-07-2022 08:32-0400 SaO2% (BldA) [Mass fraction] 99 % Dr. Fior Ridley Work Phone: 9(512)684-005997 [place] [address] 08-07-2022 08:32-0400 Systolic blood pressure 125 mm[Hg] Dr. Fior Ridley Work Phone: 8(250)736-648697 [place] [address] 08-05-2022 18:27-0400 Body height 180.[address] Fior Ridley Work Phone: 9(152)095-943597 [place] [address] 08-05-2022 18:27-0400 Body mass index (BMI) [Ratio] 24.4 kg/m2 Dr. Fior Ridley Work Phone: 7(391)850-313997 [place] [address] 08-05-2022 18:27-0400 Body weight 79.[address] Fior Ridley Work Phone: 3(723)687-429597 [place] [address] 08-05-2022 17:22-0400 Respiratory rate 18 /min Dr. Fior Ridley Work Phone: 6(826)997-095497 [place] [address] 08-05-2022 17:11-0400 Body temperature 97.7 [degF] Dr. Fior Ridley Work Phone: 3(024)165-903097 [place] [address] 08-05-2022 17:11-0400 Diastolic blood pressure 68 mm[Hg] Dr. Fior Ridley Work Phone: [facility] 08-05-2022 17:11-0400 Heart rate 81 /min Dr. Fior Ridley Work Phone: [facility] 08-05-2022 17:11-0400 SaO2% (BldA) [Mass fraction] 97 % Dr. Fior Ridley Work Phone: [facility] 08-05-2022 17:11-0400 Systolic blood pressure 124 mm[Hg] Dr. Fior Ridley Work Phone: [facility] 08-05-2022 15:22-0400 Body height 180.[address] Fior Ridley Work Phone: [facility] 08-05-2022 15:22-0400 Body mass index (BMI) [Ratio] 27.1 kg/m2 Dr. Fior Ridley Work Phone: [facility] 08-05-2022 15:22-0400 Body weight 88.[address] Fior Ridley Work Phone: [facility] Encounters Encounter Date Encounter Type Care Provider Facility Start: 10-02-2024 End: 10-02-2024 Emergency department patient visit No Primary Care Physician -Emergency Department Work Phone: Start: 10-01-2024 Non-patient / Non-visit Dr. Jacquie Beckwith [facility] Work Phone: Start: 10-01-2024 End: 10-01-2024 Evaluation and management of inpatient Dr. Rachel Stephen MD -Medical Surgical 3 Work Phone: Start: 09-30-2024 End: 10-01-2024 Emergency department patient visit SHWETA RAYA [facility] Start: 09-29-2024 End: 09-30-2024 Emergency department patient visit RACHEL PULIDO [facility] Start: 09-27-2024 End: 09-28-2024 Emergency department patient visit RACHEL PULIDO [facility] Start: 06-24-2024 End: 06-24-2024 Emergency department patient visit [facility] Start: 06-11-2024 End: 06-11-2024 Emergency department patient visit [facility] Comment on above: Chest pain, unspecif ied type (Primary Dx); Methamphetamine abuse (HCC); Alcohol abuse Start: 06-10-2024 End: 06-10-2024 Emergency department patient visit [facility] Start: 01-28-2024 End: 01-28-2024 Office outpatient visit 15 minutes Christy Negroied SHAYLEE Oscar PHARMACY SPECIALIST Work Phone: [facility] Comment on above: Influenza A (Primary Dx); URI with cough and congestion; Generalized body aches Start: 01-28-2024 End: 01-28-2024 ambulatory [facility] Start: 07-25-2023 End: 07-25-2023 Emergency department patient visit Physician [facility] Start: 06-20-2023 End: 06-20-2023 Emergency department patient visit AKTYA GRIFFITH MD Facility:B Start: 06-20-2023 End: 06-20-2023 Observation OLIVIER PRINCE [facility] Start: 06-19-2023 End: 06-20-2023 Emergency department patient visit Carmelo Mccray Facility:[facility] Start: 06-19-2023 End: 06-20-2023 Emergency department patient visit No Primary Care Physician [facility]-Emergency Department Work Phone: Start: 05-01-2023 End: 05-01-2023 ambulatory Carmelo Albert Facility:[facility] Start: 05-01-2023 End: 05-01-2023 Evaluation and management of inpatient No Primary Care Physician [facility]-Intensive Care Unit Work Phone: Start: 03-23-2023 End: 03-23-2023 ambulatory [facility] Facility:[facility] Start: 03-23-2023 Non-patient / Non-visit No [facility] Physician [facility] Work Phone: Start: 03-23-2023 End: 03-23-2023 Evaluation and management of inpatient No Primary Care Physician [facility] 3 Work Phone: Start: 08-07-2022 Non-patient / Non-visit Dr. Franklin Ridley Work Phone: [facility] Start: 08-06-2022 Non-patient / Non-visit Dr. Franklin Ridley Work Phone: [facility] Start: 08-05-2022 ambulatory Ashley Torrey Facility:[facility] Start: 08-05-2022 End: 08-07-2022 Evaluation and management of inpatient Carmelo Albert Facility:[facility] Start: 08-05-2022 Non-patient / Non-visit Dr. Franklin Ridley Work Phone: [facility] Start: 08-05-2022 End: 08-07-2022 Evaluation and management of inpatient Dr. Fior Ridley Work Phone: [facility] Surgical 3 Procedures Date Procedure Procedure Detail Performing Clinician Start: 10-01-2024 Serum inorganic phos phate measurement No Primary Care Physician Start: 09-29-2024 Urinalysis SHWETA Gibson Comment on above: Result Comment: URIN ALYSIS Performed By: #### [id number] #### [place] [address] Start: 09-28-2024 Urinalysis SHWETA Gibson Comment on above: Result Comment: URIN ALYSIS Performed By: #### [id number] ####[place] [address] Start: 06-11-2024 Basic metabolic pane l calcium total Easton Dahl REGENERATOR OPERATOR - TELETRAY OPERATOR Work Phone: Start: 06-11-2024 Drug test def 1-7 classes Easton Dahl REGENERATOR OPERATOR - TELETRAY OPERATOR Work Phone: Start: 06-11-2024 Radiologic exam ches t 2 views Easton Dahl REGENERATOR OPERATOR - TELETRAY OPERATOR Work Phone: Start: 06-11-2024 Ecg routine ecg w/le ast 12 lds trcg only w/o i&r Gen Olivera MD Work Phone: Start: 01-28-2024 Sars-cov-2 detection by dna/rna Christy Retana REGENERATOR OPERATOR - PHARMACY SPECIALIST Work Phone: Start: 01-28-2024 Infectious agent dna /rna influenza 1st 2 types Christy Retana REGENERATOR OPERATOR - PHARMACY SPECIALIST Work Phone: Start: 06-19-2023 Plain chest X-ray No [facility] Care Physician Start: 06-19-2023 SARS-CoV-2, Influenz a & RSV (PCR) No Primary Care Physician Plan of Treatment Date Care Activity Detail Author Start: 11-06-2071 RSV Immunization for Adults (1 - 1-dose 75+ series) RSV Immunization for Adults (1 - 1-dose 75+ series) [facility] Start: 2046 Zoster Vaccines (1 of 2) Zoster Vaccines (1 of 2) [facility] Start: 10-12-2024 Influenza vaccination Influenza Vaccine (Season Ended) [facility] Start: 10-01-2024 Following clinical pathway protocol [facility] Start: 10-01-2024 Admission procedure [facility] Start: 10-01-2024 Assessment of risk of venous thromboembolism [facility]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 NEUROLOGICAL: + Chronic migraines. No dizziness, syncope, paralysis, ataxia, numbness or tingling in the extremities, focal weakness, change in bowel or bladder control, seizure. MUSCULOSKELETAL: + muscle, back pain, joint pain or stiffness. HEMATOLOGIC: No anemia, bleeding or bruising. LYMPHATICS: No enlarged nodes. No history of splenectomy. PSYCHIATRIC: + History of anxiety and depression. ENDOCRINOLOGIC: No reports of sweating, cold or heat intolerance. No polyuria orpolydipsia. ALLERGIES: + History of asthma. Physical Exam Narrative Physical Examination: General: Awake, alert, oriented x 3 and cooperative, seated upright in MS bed, denies any alcohol withdrawal symptoms. Skin: Normal color, normal turgor, no icterus, no cyanosis except occasional stage ecchymoses, abrasion, recent per record mechanical fall while intoxicated with sutures to the back of the scalp, intact, no bleeding. HEENT: AT except see skin/NC, EOMI, PERRLA, MMM, no carotid bruits or JVD noted. Lungs: CTA bilaterally, moderate effort, mild decrease BL bases, no rales, ronchi or wheezing. Heart: Regular rate and rhythm; no gallop, rub audible. Abdomen: Soft, NTTP, ND, normal BS, no appreciated HSM. Extremities: No cyanosis, clubbing, or edema. Neurological: Patient awake, alert, oriented as noted, cognitive function intact; pupils equally reactive to light and accommodation, cranial nerves grossly normal, moving all 4 extremities, no focaldeficits, strength preserved,no evidence of any tremors or reported tactile disturbances, calm. Psychiatric: Affect appears fatigued otherwise normal, no acute evidence of depressive or anxiety feelings but does have underlying history. Assessment & Plan Assessment/Plan (1) Admitted to alcohol detoxification center: PLAN: Plan The patient is a 28 y/o M w/ PMHx: Chart reported Hx Polysubstance abuse (crack/cocaine and amphetamines), Tobacco use, EtOH abuse (Lower proof liquor, wine, 24 beers daily/mix), Anxiety and Depression, Asthma, Chronic migraines, recent day prior [facility] ED evaluation 09/29/2024 per clinic sync documentation via ambulance with onset of suicidal thoughts evaluate by crisis who following discussions noted the patient was supposed to have a court appearance scheduled for 9:30 AM on that day and denied any suicidal ideations to crisis during theirdiscussions with safety plan contracted and patient was noted to plan to stay with the mother of his child discharged at that time with suspected anxiety reaction with alcohol intoxication then representing on 09/30/2024 with desired EtOH detoxification admission prompting transition to [facility]. #1. EtOH Abuse with Impending Acute EtOH Withdrawal: Will admit to [place], [facility] Given interest in sobriety, will admit to MS, will initiate and continue on protocol with taper course of Phenobarbital, as needed gabapentin, Catapres, Bentyl, Vistaril, IV fluids, IV antiemetics, Tylenol as needed for pain. Will consult Case management for assistance for transition to next level of rehabilitation care ([facility] which per OSH ED is already set-up/patient acceptedfollowing acute detoxification completion). Mag, phos pending. Maintain on CIWA protocol concurrently. #2. Anxiety and depression: Notable contributing to his substance abuse. [facility] at that time and eventual patient once not intoxicated denial of suicidal ideations. Will encourage follow-up for counseling, case management/180 consulted. #3. Polysubstance abuse chart reported: Patient with previous reported history of crack/cocaine, amphetamine usage, [facility] ED UDS 09/29/24 with positive benzodiazepines and barbiturates. #4. Chronic migraines: Not on any chronic regimen, will have as needed ibuprofen. #5. Chronic asthma: Encouraged tobacco cessation, PRN albuterol. #6. Tobacco Abuse: Encouraged cessation, inpatient consultation per RT, NR if desired. #7. DVT prophylaxis: Low risk for type admission, encourage ambulation. Charges/Coding Visit Charges Inpatient E&M: 73562 Init Hosp L2 10/01/24 0222 Cosigner Signature (if applicable): CC: Dr. Jacquie Beckwith MD; No Primary Care Physician~ Signed [facility]05-01-2025 Emergency department Note* Tash Burt RN - 06/11/2024 7:20 AM EDT Report given to Holli AVENDAÑO. [place] [id number] Emergency department Note* Tash Burt RN - 06/11/2024 7:20 AM EDT Report given to Holli AVENDAÑO. * Tash Burt RN - 06/11/2024 5:08 AM EDT Pt ambulated independently back and forth to the restroom. 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 * Tash Burt RN - 06/11/2024 4:38 AM EDT Pt heading to [facility] with transport. * SHAYLEE Bae CNP - 06/11/2024 4:10 AM EDT EMERGENCY DEPARTMENT ENCOUNTER Pt Name: Kade Barrera Birthdate 1995 Date of evaluation: 06/11/2024 ED Provider: SHAYLEE Holley CNP Patient seen independently within my scope of practice with an Emergency Medicine attending available for supervision. CHIEF COMPLAINT Chest Pain Chief Complaint Patient presents with Extremity Weakness Left arm numbness and left chest pain x2 days. Was here earlier and left because he felt better. 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 Hx seizures 8-10 tall beers/day HISTORY OF PRESENT ILLNESS (Location/Symptom, Timing/Onset, Context/Setting, Quality, Duration, Modifying Factors, Severity) Note limiting factors. I wore appropriate PPE for the entirety of this encounter. HPI Kade Barrera is a 28 y.o. who presents to the emergency department chest pain patient reported that he was here 2 days ago for similar symptoms. He was here earlier today and he left because he felt that he was detoxing from methamphetamines. Patient states that he drinks alcohol does methamphetamine and he also drinks beer. Patient denies any fever or chills. He denies any other substances. He denies any problems or urination frequency urgency burning discharge. He denies any abdominaldiscomfort nausea vomiting diarrhea constipation fever chills. Patient has a psychiatric history aswell. Nursing Notes were reviewed. Limitations to history: None Outside historians: None REVIEW OF SYSTEMS Review of Systems GENERAL: Denies weight change, fatigue, weakness, fever HEENT: Denies trauma, headache, dizziness, visual change, ear pain, hearing change, tinnitus, rhinorrhea CARDIAC: Denies hypertension, murmur, angina, palpations, dyspnea on exertion, edema RESPIRATORY: Denies shortness of breath, wheezing, cough, sputum, asthma, COPD GI: Denies nausea, vomiting, change in bowels, abdominal pain URINARY: Denies changes in frequency/urgency, hematuria, incontinence, flank pain MUSCULOSKELETAL: Denies weakness, pain, change in ROM, redness, swelling NEURO: Denies loss in sensation, tingling, tremors, weakness, fainting or seizures ENDO: Denies heat/cold intolerance, polyuria, polydipsia, or swelling around neck PSYCH: Denies changes in mood, anxiety, depression, tension, memory Pertinent positives and negatives as per HPI. PAST MEDICAL HISTORY No past medical history on file. SURGICAL HISTORY No past surgical history on file. CURRENT MEDICATIONS Previous Medications CLONIDINE (CATAPRES) 0.1 MG TABLET Take 0.1 mg by mouth 2 times daily. RISPERIDONE (RISPERDAL M-TAB) 0.5 MG DISINTEGRATING TABLET Take 0.5 mg by mouth 2 times daily. ALLERGIES Patient has no known allergies. FAMILY HISTORY No family history on file. SOCIAL HISTORY Social History Socioeconomic History Marital status: Single SCREENINGS Carol Coma Scale Best Eye Response: Spontaneous Best Verbal Response: Oriented Best Motor Response: Follows commands [place] Coma Scale Score: 15 HEART Score History: Slightly suspicious ECG: Normal Age: <45 Risk Factors: 1-2 risk factors Troponin: Less than or equal to normal limit HEART Score: 1 NIH Stroke Scale 1A. Level of Consciousness: Alert, Keenly Responsive 1B. Ask Month and Age: Both Questions Right 1C. Blink Eyes & Squeeze Hands: Performs Both Tasks 2. Best Gaze: Normal 3. Visual: No Visual Loss 4. Facial Palsy: Normal Symmetrical Movements 5A. Motor - Left Arm: No Drift 5B. Motor - Right Arm: No Drift 6A. Motor - Left Leg: No Drift 6B. Motor - Right Leg: No Drift 7. Limb Ataxia: Absent 8. Sensory Loss: Normal 9. Best Language: No Aphasia 10. Dysarthria: Normal 11. Extinction and Inattention: No Abnormality NIH Stroke Scale: 0 Test of skew negative Gait steady without deficit PHYSICAL EXAM ED Triage Vitals [06/11/24 0418] Temp Heart Rate Resp BP 36.3 C (97.3 F) 101 18 (!) 149/99 SpO2 Temp Source Heart Rate Source Patient Position 96 % Temporal Monitor -- BP Location FiO2 (%) -- -- Physical Exam Constitutional: Well developed, well nourished, no acute distress, non-toxic appearance Eyes: PERRL, conjunctiva normal HENT: Atraumatic, external ears normal, nose normal, oropharynx moist, no pharyngeal exudates. Neck- normal range of motion, no tenderness, supple Respiratory: No respiratory distress, normal breath sounds, no rales, no wheezing Cardiovascular: Normal rate, normal rhythm, no murmurs, no gallops, no rubs GI: Soft, nondistended, normal bowel sounds, nontender, no organomegaly, no mass, no rebound, no guarding : No costovertebral angle tenderness Musculoskeletal: No edema, no tenderness, no deformities. Back- no tenderness Integument: Well hydrated, no rash Lymphatic: No lymphadenopathy noted Neurologic: Alert & oriented x 3, CN 2-12 normal, normal motor function, normal sensory function, no focal deficits noted Psychiatric: Speech and behavior appropriate for age DIAGNOSTIC RESULTS RADIOLOGY (Per Emergency Physician): Interpretation per the Radiologist below, if available at the time of this note: XR chest 2 views Final Result 1. No evidence of an acute cardiopulmonary process. Report Dictated on Electronically Signed By: Jovanni Garcia MD Electronically Signed Date/Time: 06/11/2024 5:00 AM EDT LABS: Labs Reviewed CK - Abnormal Result Value CK 247 (*) CBC WITH AUTO DIFFERENTIAL - Abnormal Auto WBC 5.2 RBC 4.57 Hemoglobin 15.4 Hematocrit 41.5 MCV 90.8 MCH 33.7 MCHC 37.1 (*) RDW 12.7 Platelets 226 MPV 9.8 nRBC 0.0 Neutrophils Relative 51.7 Lymphocytes Relative 34.8 Monocytes Relative 9.1 Eosinophils Relative 2.3 Basophils Relative 1.9 Immature Grans % 0.2 Neutrophils Absolute 2.7 Lymphocytes Absolute 1.8 Monocytes Absolute 0.5 Eosinophils Absolute 0.1 Basophils Absolute 0.1 Immature Grans Absolute 0.0 BASIC METABOLIC PANEL - Abnormal SODIUM 137 POTASSIUM 3.5 CHLORIDE 108 (*) CARBON DIOXIDE 21 (*) UREA NITROGEN 5 (*) CREATININE 0.67 (*) GLUCOSE 113 (*) CALCIUM 8.4 ANION GAP 8 eGFR >90.0 HIGH SENSITIVITY TROPONIN, SERIAL BASELINE - Normal Troponin HS Serial Baseline <3 ETHANOL - Normal ETHANOL IN SER/PLAS <10 Narrative: C[employer] EGGS depression is seen >100 mg/dL. NOTE: This result is for medical treatment only. Analysis performed using non- forensic procedures. DRUGS OF ABUSE AMPHETAMINE SCREEN Positive BARBITURATES SCREEN Positive BENZODIAZEPINE SCREEN Negative COCAINE METAB. SCREEN Negative METHADONE SCREEN Negative OPIATES SCREEN Negative OXYCODONE SCREEN Negative PHENCYCLIDINE SCREEN Negative FENTANYL SCREEN, UR QUAL Negative Narrative: The expected value for all of the drugs listed above is Negative. The following drugs or drug groups have been screened for by Immunoassay at the following thresholds: Amphetamine class (1000 ng/mL) Barbiturates (200 ng/mL) Benzodiazepines (200 ng/mL) Cocaine (300 ng/mL) Methadone (300 ng/mL) Opiates (300 ng/mL) Oxycodone (100 ng/mL) PCP (25 ng/mL) Fentanyl (1.0 ng/ml) NOTE: These results are for medical treatment only. Analysis performed using non-forensic procedures. POSITIVE results are NOT confirmed by a more specific alternative method unless requested. If confirmation is needed, request confirmation under separateorder. All other labs were within normal range or not returned as of this dictation. EMERGENCY DEPARTMENT COURSE and DIFFERENTIAL DIAGNOSIS/MDM: Vitals: Vitals: 06/11/24 0414 06/11/24 0418 06/11/24 0511 BP: (!) 149/99 123/83 Pulse: 101 78 Resp: 18 Temp: 36.3 C (97.3 F) TempSrc: Temporal SpO2: 96% Weight: 79.8 kg (176 lb) Height: 1.803 m (5' 11) Medications sodium chloride 0.9 % bolus 1,000 mL (1,000 mL IntraVENous New Bag 06/11/24 0604) [facility] MDM elements: The patient presented with chief complaint of chest pain/left arm weakness. The differential diagnosis associated with this patient's presentation includes ACS, chest pain, bronchitis, pneumonia chest wall pain. Our workup consisted of ordering/reviewing: A CBC BMP troponin EKG chest x-ray CK drug screen EtOH. To aid in management, I performed an independent interpretation of Xray(s) showed no pleural effusion no pneumo thorax no pulmonary edema.. I also reviewed external records from Outpatient notes outpatient notes from the patient's last visit through the urgent care center patient had no resporatory distress at rest, able to speak in fullsentences.No use of accessory muscles.No cought no chest tightness. No inspiratory or expiratory wheezes.No fatique no paradoxical chest movement. No inability to lay back. No cyanosis patient was at that. The patient will be Discharged. Patient is in agreement with this plan. Patient's care was impacted by methamphetamine abuse cocaine alcohol. Patient's care was significantly impacted by social determinants of health including no PCP. I had a discussion with the patient regarding the importance of smoking cessation. I made them aware of the health risks which include COPD and lung cancer in a voiced understanding. I offered resources to help quit smoking and answered any questions they had. Results of the patient's laboratory studies shows a drug screen that is positive for amphetamines and barbiturates patient was given a liter bolus of normal saline his CK was 247 the patient's troponin is less than 3 CBC is unremarkable. Results of the patient's chest x-ray shows no evidence of acute cardiopulmonary process. Patient was notified of the results of his imaging and laboratory studies I informed the patient that he should decrease his use of methamphetamines he should follow-up with his PCP in 3 to 5 days he should return for new or worsening symptoms all patient's question concerns were addressed he was in agreement this plan he was discharged without incident condition stableupon discharge. PROCEDURES: Unless otherwise noted below, none Procedures CRITICAL CARE TIME None FINAL IMPRESSION 1. Chest pain, unspecified type 2. Methamphetamine abuse (HCC) 3. Alcohol abuse DISPOSITION Discharge 06/11/2024 06:32:13 AM PATIENT REFERRED TO: No follow-up provider specified. DISCHARGE MEDICATIONS: New Prescriptions No medications on file (Comment: Please note this report has been produced using speech recognition software and may contain errors related to that system including errors in grammar, punctuation, and spelling, as well as words and phrases that may be inappropriate. If there are any questions or concerns please feel freeto contact the dictating provider for clarification.) SHAYLEE Holley CNP (electronically signed) Emergency Medicine Provider SHAYLEE Bae CNP 06/11/24 0659 documented in this [facility]05-01-2025 Emergency department Note* Tash Burt RN - 06/11/2024 5:08 AM EDT Pt ambulated independently back and forth to the restroom. 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 [id number] Note* Tash Burt RN - 06/11/2024 4:38 AM EDT Pt heading to [facility] with transport. [id number] Phys[facility] Emergency department Note* SHAYLEE Bae CNP - 06/11/2024 4:10 AM EDT EMERGENCY DEPARTMENT ENCOUNTER Pt Name: Kade Barrera Birthdate 1995 Date of evaluation: 06/11/2024 ED Provider: SHAYLEE Holley CNP Patient seen independently within my scope of practice with an Emergency Medicine attending available for supervision. CHIEF COMPLAINT Chest Pain Chief Complaint Patient presents with Extremity Weakness Left arm numbness and left chest pain x2 days. Was here earlier and left because he felt better. 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 Hx seizures 8-10 tall beers/day HISTORY OF PRESENT ILLNESS (Location/Symptom, Timing/Onset, Context/Setting, Quality, Duration, Modifying Factors, Severity) Note limiting factors. I wore appropriate PPE for the entirety of this encounter. HPI Kade Barrera is a 28 y.o. who presents to the emergency department chest pain patient reported that he was here 2 days ago for similar symptoms. He was here earlier today and he left because he felt that he was detoxing from methamphetamines. Patient states that he drinks alcohol does methamphetamine and he also drinks beer. Patient denies any fever or chills. He denies any other substances. He denies any problems or urination frequency urgency burning discharge. He denies any abdominaldiscomfort nausea vomiting diarrhea constipation fever chills. Patient has a psychiatric history aswell. Nursing Notes were reviewed. Limitations to history: None Outside historians: None REVIEW OF SYSTEMS Review of Systems GENERAL: Denies weight change, fatigue, weakness, fever HEENT: Denies trauma, headache, dizziness, visual change, ear pain, hearing change, tinnitus, rhinorrhea CARDIAC: Denies hypertension, murmur, angina, palpations, dyspnea on exertion, edema RESPIRATORY: Denies shortness of breath, wheezing, cough, sputum, asthma, COPD GI: Denies nausea, vomiting, change in bowels, abdominal pain URINARY: Denies changes in frequency/urgency, hematuria, incontinence, flank pain MUSCULOSKELETAL: Denies weakness, pain, change in ROM, redness, swelling NEURO: Denies loss in sensation, tingling, tremors, weakness, fainting or seizures ENDO: Denies heat/cold intolerance, polyuria, polydipsia, or swelling around neck PSYCH: Denies changes in mood, anxiety, depression, tension, memory Pertinent positives and negatives as per HPI. PAST MEDICAL HISTORY No past medical history on file. SURGICAL HISTORY No past surgical history on file. CURRENT MEDICATIONS Previous Medications CLONIDINE (CATAPRES) 0.1 MG TABLET Take 0.1 mg by mouth 2 times daily. RISPERIDONE (RISPERDAL M-TAB) 0.5 MG DISINTEGRATING TABLET Take 0.5 mg by mouth 2 times daily. ALLERGIES Patient has no known allergies. FAMILY HISTORY No family history on file. SOCIAL HISTORY Social History Socioeconomic History Marital status: Single SCREENINGS Carol Coma Scale Best Eye Response: Spontaneous Best Verbal Response: Oriented Best Motor Response: Follows commands [place] Coma Scale Score: 15 HEART Score History: Slightly suspicious ECG: Normal Age: <45 Risk Factors: 1-2 risk factors Troponin: Less than or equal to normal limit HEART Score: 1 NIH Stroke Scale 1A. Level of Consciousness: Alert, Keenly Responsive 1B. Ask Month and Age: Both Questions Right 1C. Blink Eyes & Squeeze Hands: Performs Both Tasks 2. Best Gaze: Normal 3. Visual: No Visual Loss 4. Facial Palsy: Normal Symmetrical Movements 5A. Motor - Left Arm: No Drift 5B. Motor - Right Arm: No Drift 6A. Motor - Left Leg: No Drift 6B. Motor - Right Leg: No Drift 7. Limb Ataxia: Absent 8. Sensory Loss: Normal 9. Best Language: No Aphasia 10. Dysarthria: Normal 11. Extinction and Inattention: No Abnormality NIH Stroke Scale: 0 Test of skew negative Gait steady without deficit PHYSICAL EXAM ED Triage Vitals [06/11/24 0418] Temp Heart Rate Resp BP 36.3 C (97.3 F) 101 18 (!) 149/99 SpO2 Temp Source Heart Rate Source Patient Position 96 % Temporal Monitor -- BP Location FiO2 (%) -- -- Physical Exam Constitutional: Well developed, well nourished, no acute distress, non-toxic appearance Eyes: PERRL, conjunctiva normal HENT: Atraumatic, external ears normal, nose normal, oropharynx moist, no pharyngeal exudates. Neck- normal range of motion, no tenderness, supple Respiratory: No respiratory distress, normal breath sounds, no rales, no wheezing Cardiovascular: Normal rate, normal rhythm, no murmurs, no gallops, no rubs GI: Soft, nondistended, normal bowel sounds, nontender, no organomegaly, no mass, no rebound, no guarding : No costovertebral angle tenderness Musculoskeletal: No edema, no tenderness, no deformities. Back- no tenderness Integument: Well hydrated, no rash Lymphatic: No lymphadenopathy noted Neurologic: Alert & oriented x 3, CN 2-12 normal, normal motor function, normal sensory function, no focal deficits noted Psychiatric: Speech and behavior appropriate for age DIAGNOSTIC RESULTS RADIOLOGY (Per Emergency Physician): Interpretation per the Radiologist below, if available at the time of this note: XR chest 2 views Final Result 1. No evidence of an acute cardiopulmonary process. Report Dictated on Electronically Signed By: Jovanni Garcia MD Electronically Signed Date/Time: 06/11/2024 5:00 AM EDT LABS: Labs Reviewed CK - Abnormal Result Value CK 247 (*) CBC WITH AUTO DIFFERENTIAL - Abnormal Auto WBC 5.2 RBC 4.57 Hemoglobin 15.4 Hematocrit 41.5 MCV 90.8 MCH 33.7 MCHC 37.1 (*) RDW 12.7 Platelets 226 MPV 9.8 nRBC 0.0 Neutrophils Relative 51.7 Lymphocytes Relative 34.8 Monocytes Relative 9.1 Eosinophils Relative 2.3 Basophils Relative 1.9 Immature Grans % 0.2 Neutrophils Absolute 2.7 Lymphocytes Absolute 1.8 Monocytes Absolute 0.5 Eosinophils Absolute 0.1 Basophils Absolute 0.1 Immature Grans Absolute 0.0 BASIC METABOLIC PANEL - Abnormal SODIUM 137 POTASSIUM 3.5 CHLORIDE 108 (*) CARBON DIOXIDE 21 (*) UREA NITROGEN 5 (*) CREATININE 0.67 (*) GLUCOSE 113 (*) CALCIUM 8.4 ANION GAP 8 eGFR >90.0 HIGH SENSITIVITY TROPONIN, SERIAL BASELINE - Normal Troponin HS Serial Baseline <3 ETHANOL - Normal ETHANOL IN SER/PLAS <10 Narrative: [employer] depression is seen >100 mg/dL. NOTE: This result is for medical treatment only. Analysis performed using non- forensic procedures. DRUGS OF ABUSE AMPHETAMINE SCREEN Positive BARBITURATES SCREEN Positive BENZODIAZEPINE SCREEN Negative COCAINE METAB. SCREEN Negative METHADONE SCREEN Negative OPIATES SCREEN Negative OXYCODONE SCREEN Negative PHENCYCLIDINE SCREEN Negative FENTANYL SCREEN, UR QUAL Negative Narrative: The expected value for all of the drugs listed above is Negative. The following drugs or drug groups have been screened for by Immunoassay at the following thresholds: Amphetamine class (1000 ng/mL) Barbiturates (200 ng/mL) Benzodiazepines (200 ng/mL) Cocaine (300 ng/mL) Methadone (300 ng/mL) Opiates (300 ng/mL) Oxycodone (100 ng/mL) PCP (25 ng/mL) Fentanyl (1.0 ng/ml) NOTE: These results are for medical treatment only. Analysis performed using non-forensic procedures. POSITIVE results are NOT confirmed by a more specific alternative method unless requested. If confirmation is needed, request confirmation under separateorder. All other labs were within normal range or not returned as of this dictation. EMERGENCY DEPARTMENT COURSE and DIFFERENTIAL DIAGNOSIS/MDM: Vitals: Vitals: 06/11/24 0414 06/11/24 0418 06/11/24 0511 BP: (!) 149/99 123/83 Pulse: 101 78 Resp: 18 Temp: 36.3 C (97.3 F) TempSrc: Temporal SpO2: 96% Weight: 79.8 kg (176 lb) Height: 1.803 m (5' 11) Medications sodium chloride 0.9 % bolus 1,000 mL (1,000 mL IntraVENous New Bag 06/11/24 0604) MDM MDM elements: The patient presented with chief complaint of chest pain/left arm weakness. The differential diagnosis associated with this patient's presentation includes ACS, chest pain, bronchitis, pneumonia chest wall pain. Our workup consisted of ordering/reviewing: A CBC BMP troponin EKG chest x-ray CK drug screen EtOH. To aid in management, I performed an independent interpretation of Xray(s) showed no pleural effusion no pneumo thorax no pulmonary edema.. I also reviewed external records from Outpatient notes outpatient notes from the patient's last visit through the urgent care center patient had no resporatory distress at rest, able to speak in fullsentences.No use of accessory muscles.No cought no chest tightness. No inspiratory or expiratory wheezes.No fatique no paradoxical chest movement. No inability to lay back. No cyanosis patient was at that. The patient will be Discharged. Patient is in agreement with this plan. Patient's care was impacted by methamphetamine abuse cocaine alcohol. Patient's care was significantly impacted by social determinants of health including no PCP. I had a discussion with the patient regarding the importance of smoking cessation. I made them aware of the health risks which include COPD and lung cancer in a voiced understanding. I offered resources to help quit smoking and answered any questions they had. Results of the patient's laboratory studies shows a drug screen that is positive for amphetamines and barbiturates patient was given a liter bolus of normal saline his CK was 247 the patient's troponin is less than 3 CBC is unremarkable. Results of the patient's chest x-ray shows no evidence of acute cardiopulmonary process. Patient was notified of the results of his imaging and laboratory studies I informed the patient that he should decrease his use of methamphetamines he should follow-up with his PCP in 3 to 5 days he should return for new or worsening symptoms all patient's question concerns were addressed he was in agreement this plan he was discharged without incident condition stableupon discharge. PROCEDURES: Unless otherwise noted below, none Procedures CRITICAL CARE TIME None FINAL IMPRESSION 1. Chest pain, unspecified type 2. Methamphetamine abuse (HCC) 3. Alcohol abuse DISPOSITION Discharge 06/11/2024 06:32:13 AM PATIENT REFERRED TO: No follow-up provider specified. DISCHARGE MEDICATIONS: New Prescriptions No medications on file (Comment: Please note this report has been produced using speech recognition software and may contain errors related to that system including errors in grammar, punctuation, and spelling, as well as words and phrases that may be inappropriate. If there are any questions or concerns please feel freeto contact the dictating provider for clarification.) SHAYLEE Holley CNP (electronically signed) Emergency Medicine Provider SHAYLEE Bae CNP 06/11/[id number] Emergency department Note* Daina Chnug RN - 06/10/2024 10:50 PM EDT Pt did not want to wait to be seen. Pt seen walking out of ED. Pt A&OX4. Steady gait noted. No IV access obtained during visit. [id number] Emergency department Note* Daina Chung RN - 06/10/2024 10:50 PM EDT Pt did not want to wait to be seen. Pt seen walking out of ED. Pt A&OX4. Steady gait noted. No IV access obtained during visit. * Danita Guevara RN - 06/10/2024 10:37 PM EDT Pt states he called poison control due to mixing alcohol and ice. Pt states he has been drinking beer all day. * Danita Barcenas PA-C - 06/10/2024 10:21 PM EDT Patient left without being seen after initial triage by nursing staff. As such, I did not participate in the care of this patient. Danita Barcenas PA-C 06/11/24 0118 documented in this [facility]04-30-2025 Emergency department Triage note* Danita Guevara RN - 06/10/2024 10:37 PM EDT Pt states he called poison control due to mixing alcohol and ice. Pt states he has been drinking beer all day. [id number] Physician Emergency department Note* Danita Barcenas PA-C - 06/10/2024 10:21 PM EDT Patient left without being seen after initial triage by nursing staff. As such, I did not participate in the care of this patient. Danita Barcenas PA-C 06/11/[address] [facility] Work Phone: [phone] 652-760912-17-2024 History of Present illness Narrative* SHAYLEE Burch NP - 01/28/2024 2:00 PM EST Images from the original note were not included. [facility] [facility] [id number] Dept: [phone] Dept Loc: [phone] Subjective Kade Barrera is a 28 y.o. year old male who presents to the office with the following complaint(s): Chief Complaint Patient presents with URI Cough /Body ache/ migraine/stuffy nose /pt stated that he started new medication yesterday and thatwhen he started feeling sick. HPI -cough, congestion, headache, runny nose -started yesterday -believes medication caused symptoms -clonidine and Risperdal -[facility] -No over the counter medications utilized currently Review of Systems Constitutional: Positive for activity change, chills, fatigue and fever. HENT: Positive for congestion. Negative for ear pain, postnasal drip, sinus pressure and sore throat. Respiratory: Positive for cough and shortness of breath. Cardiovascular: Negative for chest pain. Gastrointestinal: Negative for abdominal pain. Musculoskeletal: Positive for myalgias. Allergic/Immunologic: Negative for environmental allergies and food allergies. Neurological: Positive for headaches. Negative for dizziness and light-headedness. No Known Allergies No past medical history on file. No past surgical history on file. No family history on file. Social History Socioeconomic History Marital status: Single Current Outpatient Medications on File Prior to Visit Medication Sig Dispense Refill cloNIDine (Catapres) 0.1 MG tablet Take 0.1 mg by mouth 2 times daily. risperiDONE (RisperDAL M-TAB) 0.5 MG disintegrating tablet Take 0.5 mg by mouth 2 times daily. No current facility-administered medications on file prior to visit. Objective BP 117/75 Pulse 90 Temp 36.9 C (98.4 F) Resp 17 Ht 5' 11 (1.803 m) Wt 194 lb (88 kg) SpO2 98% BMI 27.06 kg/m Physical Exam Vitals and nursing note reviewed. Constitutional: General: He is not in acute distress. Appearance: Normal appearance. He is normal weight. He is not ill-appearing. HENT: Head: Normocephalic. Right Ear: Tympanic membrane, ear canal and external ear normal. Left Ear: Tympanic membrane, ear canal and external ear normal. Nose: Congestion and rhinorrhea present. Mouth/Throat: Mouth: Mucous membranes are moist. Pharynx: Posterior oropharyngeal erythema present. No oropharyngeal exudate. Eyes: Pupils: Pupils are equal, round, and reactive to light. Cardiovascular: Rate and Rhythm: Normal rate. Pulmonary: Effort: Pulmonary effort is normal. No respiratory distress. Comments: Dry cough noted Skin: General: Skin is warm and dry. Neurological: General: No focal deficit present. Mental Status: He is alert and oriented to person, place, and time. Mental status is at baseline. Psychiatric: Mood and Affect: Mood normal. Behavior: Behavior normal. Thought Content: Thought content normal. Judgment: Judgment normal. Covid-neg Flu-+A Assessment: 1. Influenza A 2. URI with cough and congestion 3. Generalized body aches Kade was seen today for uri. Diagnoses and all orders for this visit: Influenza A (Primary) - oseltamivir (Tamiflu) 75 MG capsule; Take 1 capsule (75 mg) by mouth 2 times daily for 5 days. - acetaminophen (Tylenol Extra Strength) 500 MG tablet; Take 1 tablet (500 mg) by mouth every 6 hours as needed for mild pain (1-3), moderate pain (4-6), headaches or fever for up to 7 days. URI with cough and congestion - AMB POC COVID-19 COV - AMB POC RAPID INFLUENZA DNA/RNA Generalized body aches - AMB POC RAPID INFLUENZA DNA/RNA Patient advised based on symptoms I have high suspicion for viral illness. I explained to patient Ihave low suspicion that it was due to medication. Patient is in a facility with multiple sick individuals. COVID and flu testing recommended to patient-patient agreeable. Patient fransisco COVID was negative-flu a in office today was positive. Plan of care for patient is treat for influenza A Patient advised they would be given prescription for Tamiflu and Tylenol. Patient advised take entirety medication take medication with food and fluids. Patient to increase fluids. Symptomatic treatment can be continued. Any new or worsening symptoms-following up with PCP would be recommended or go to the ER for further evaluation. Patient agreeable and understanding plan of care. Medication indications, directions, and side effects were discussed. Patient given educational materials - see patient instructions. Discussed use, benefit, and side effects of prescribed medications. All patient questions answered. Pt voiced understanding and aware of treatment plan. Follow up as directed. (Please note this report has been produced using speech recognition software and may contain errorsrelated to that system including errors in grammar, punctuation, and spelling, as well as words andphrases that may be inappropriate. Efforts were made to edit the dictations but occasionally words a remis-transcribed. If there are any questions or concerns please contact the dictating provider forclarification) ALAINA Burch 01/28/24 documented in this [facility]05-09-2024 Hospital Discharge instructions Patient Education 06/20/2023 19:08:45 Alcohol Withdrawal Syndrome, [id number] Alcohol Withdrawal Syndrome When a person who drinks a lot of alcohol stops drinking, he or she may have unpleasant and serioussymptoms. These symptoms are called alcohol withdrawal syndrome. This condition may be mild or severe. It can be life-threatening. It can cause: Shaking that you cannot control (tremor). Sweating. Headache. Feeling fearful, upset, grouchy, or depressed. Trouble sleeping (insomnia). Nightmares. Fast or uneven heartbeats (palpitations). Alcohol cravings. Feeling sick to your stomach (nausea). Throwing up (vomiting). Being bothered by light and sounds. Confusion. Trouble thinking clearly. Not being hungry (loss of appetite). Big changes in mood (mood swings). If you have all of the following symptoms at the same time, get help right away: High blood pressure. Fast heartbeat. Trouble breathing. Seizures. Seeing, hearing, feeling, smelling, or tasting things that are not there (hallucinations). These symptoms are known as delirium tremens (DTs). They must be treated at the hospital right away. Follow these instructions at home: Take cfzv-[id number]-[id number] and prescription medicines only as told by your doctor. This includes vitamins. Do not drink alcohol. Do not drive until your doctor says that this is safe for you. Have someone stay with you or be available in case you need help. This should be someone you trust.This person can help you with your symptoms. He or she can also help you to not drink. Drink enough fluid to keep your pee (urine) pale yellow. Think about joining a support group or a treatment program to help you stop drinking. Keep all follow-up visits as told by your doctor. This is important. Contact a doctor if: Your symptoms get worse. You cannot eat or drink without throwing up. You have a hard time not drinking alcohol. You cannot stop drinking alcohol. Get help right away if: You have fast or uneven heartbeats. You have chest pain. You have trouble breathing. You have a seizure for the first time. You see, hear, feel, smell, or taste something that is not there. You get very confused. Summary When a person who drinks a lot of alcohol stops drinking, he or she may have serious symptoms. Thisis called alcohol withdrawal syndrome. Delirium tremens (DTs) is a group of life-threatening symptoms. You should get help right away if you have these symptoms. Think about joining an alcohol support group or a treatment program. This information is not intended to replace advice given to you by your health care provider. Make sure you discuss any questions you have with your health care provider. Document Released: 07/16/2008 Document Revised: 01/10/2018 Document Reviewed: 10/04/2017 What's Hot Patient Education 2020 [employer]. 06/20/2023 02:18:58 Seizure, New Onset, Unknown Cause (Adult) Seizure: New Onset with Unknown Cause (Adult) You have had a seizure today. A seizure happens when a burst of random, uncontrolled electrical activity occurs in the brain. A seizure can have many causes. Often it s not possible to figure out theexact cause of a seizure from a single exam. You might need other tests. Having a single seizure doesn t mean that you will continue to have seizures or that you have epilepsy. But until doctors knowthe cause of your seizure, you should assume that another seizure is possible. Home care Follow these tips when caring for yourself at home. For this seizure: Seizures aren t predictable. So avoid doing anything that might cause danger to you or other peopleif you have another seizure. Don t drive, ride a bike, or operate dangerous equipment. Don t take a bath alone. Take a shower instead. Don t swim alone until your healthcare provider says that you are no longer in danger of having another seizure. Tell your close friends and relatives about your seizure. Teach them what to do for you if it happens again. If medicine was prescribed to prevent seizures, take it exactly as directed. It does not work when taken as needed. Missing doses will increase the risk of having another seizure. Follow a regular sleep schedule such that you get at least 6 to 8 hours of restful sleep every night. This is especially important when you are sick and have a cold, flu, or another type of infection. Don't drink alcoholic beverages until your doctor says it's OK. Do not ever use recreational drugs. For future seizures, if you are alone: If you feel a seizure coming on, lie down on a bed or on the floor with something soft under your head. Lie on your left side, not on your back. This will keep you from falling. It will also let fluid drain out of your mouth and prevent choking. Be sure you are clear of any objects that might injure you during the seizure. Call 911 if there is time. For future seizures, if someone is with you: The person should help you get into a safe position and call 911. The person shouldn t try to forceanything in your mouth once the seizure begins. This could harm your teeth or jaw. After a seizure, you may be drowsy or confused. The person should stay with you until you are fullyawake. The person shouldn t offer you anything to eat or drink during that time. Call 911 or go to the emergency department so that you can be looked at. Follow-up care Follow up with your healthcare provider, or as advised. You may need other tests to help figure outwhat caused your seizure. These tests may include brain wave tests (EEG) or brain scans (MRI or CT scans). Keep a seizure calendar to record how often you have a seizure. If you are being started on anti-seizure medicine, make sure that you use additional control protection. Seizure medicine can affect how well control pills work, and you could become . Don't drink alcohol until your doctor tells you it s OK. Do not ever use recreational drugs. Note: For the safety of yourself and others on the road, certain states require that the treating doctor tell the Public Health Department about any adult who is treated for a seizure and is at risk of more seizures. In this case, the department of motor vehicles will be told. A restriction will beput on your lease purchase truck driver s license until a doctor gives you medical clearance to drive again. Contact your treating doctor to find out if your state requires the reporting of patients with a seizures condition. When to seek medical advice Call your healthcare provider right away if any of these occur: Another seizure Fever of 100.4 F (38 C) or higher, or as directed by your healthcare provider Unusual irritability, drowsiness, or confusion Headache or neck pain that gets worse 1813-5753 [employer]. [address] [place] [address], [place] [address]. All rights reserved. This information is not intended as a substitute for professional medical care. Always follow yourhealthcare professional's instructions. Follow Up Care 06/20/2023 02:07:45 With:MISTY DECKER DO Address: [address] [place] [phone] When: Unknown Comments:Please follow-up for your post-hospital follow-up appointment. [facility] 05-09-2024 Note Discharge Instructions Thank you for allowing [facility] to assist you with your healthcare needs. The following is importantdischarge information regarding your hospital visit. Your Diagnosis Alcohol dependence Depression with anxiety Seizure Seizure Seizure due to alcohol withdrawal What to do next Follow Up Appointments Follow Up with MISTY DECKER DO When Why: Please follow-up for your post-hospital follow-up appointment. Where: [address] [place] [phone] The Following Activity and Diet Have Been Ordered for You Discharge Return to Work, School, or Sports (Return to Work, School, or Sports) - Ordered -- May return to: work, Patient was hospitalized on 06/20/23 for observation and later discharged at 2100., 06/20/23 18:39:00 EDT Return to Work, School, or Sports - Deleted -- May return to: work, 06/20/23 18:37:00 EDT No qualifying data available. The Following Equipment Has Been Ordered for You No qualifying data available. The Following Treatments Have Been Ordered for You Discharge Labs No qualifying data available. Discharge Radiology No qualifying data available. Other Therapies No qualifying data available. Post Acute Orders No qualifying data available. Someone Will Contact You Regarding These Home Health Referrals No home referrals have been ordered for you. No one will call you. Allergies No Known Medication Allergies Medications Please ask your primary doctor or pharmacist before taking any other medication not listed, including over the counter drugs, herbal medications, vitamins and or supplements as they may interact withyour home medications. Please take this list to your next doctor s visit. Bring all medications you take, including over the counter medications, herbals and other supplements with you to your doctor s visit. Patients and families are reminded to discard old lists and to update any records with all medication providers or retail pharmacies. Medication Leaflets chlordiazepoxide (SUDHEER aaron [place] e POX sangita) What is the most important information I should know about chlordiazepoxide? Chlordiazepoxide can slow or stop your breathing, especially if you have recently used an opioid medication or alcohol. MISUSE OF THIS MEDICINE CAN CAUSE ADDICTION, OVERDOSE, OR . Keep this medicine where others cannot get to it. Do not stop using chlordiazepoxide without asking your doctor. You may have life-threatening withdrawal symptoms if you stop using the medicine suddenly after long-term use. Some withdrawal symptoms may last up to 12 months or longer. Get medical help right away if you stop using chlordiazepoxide and have symptoms such as: unusual muscle movements, being more active or talkative, sudden and severe changes in mood or behavior, confusion, hallucinations, seizures, or thoughts about suicide. What is chlordiazepoxide? Chlordiazepoxide is a benzodiazepine (lgi-ogv-kht-TONIE-eh-peen) that is used to treat anxiety disorders. Chlordiazepoxide may also be used short-term to treat symptoms of alcohol withdrawal, or anxiety you may have before a surgery. Chlordiazepoxide may also be used for purposes not listed in this medication guide. What should I discuss with my healthcare provider before taking chlordiazepoxide? You should not use chlordiazepoxide if you are allergic to it. Tell your doctor if you have ever had: depression, a mood disorder, suicidal thoughts or actions; alcoholism or drug addiction; or liver or kidney disease. Tell your doctor if you are or plan to become . Chlordiazepoxide may harm an unborn baby. Avoid taking this medicine during the first trimester of . Ask a doctor if it is safe to breastfeed while using this medicine. Not approved for use by anyone younger than 6 years old. How should I take chlordiazepoxide? Follow the directions on your prescription label and read all medication guides or instruction sheets. Never use chlordiazepoxide in larger amounts, or for longer than prescribed. Tell your doctor ifyou feel an increased urge to use more of this medicine. Never share this medicine with another person, especially someone with a history of drug addiction.MISUSE CAN CAUSE ADDICTION, OVERDOSE, OR . Keep the medicine where others cannot get to it. Selling or giving away this medicine is against the law. Chlordiazepoxide is usually taken for no longer than 4 months. Follow your doctor's dosing instructions very carefully. Do not stop using chlordiazepoxide without asking your doctor. You may have life-threatening withdrawal symptoms if you stop using the medicine suddenly after long-term use. Store at room temperature away from moisture and heat. Keep your medicine in a place where no one can use it improperly. What happens if I miss a dose? Take the medicine as soon as you can, but skip the missed dose if it is almost time for your next dose. Do not take two doses at one time. What happens if I overdose? Seek emergency medical attention or call the Poison Help line at . An overdose of chlordiazepoxide can be fatal if you take it with alcohol, opioid medicine, or other drugs that cause drowsiness or slow your breathing. Overdose symptoms may include dry mouth, blurred vision, urinating less, constipation, extreme drowsiness, confusion, muscle weakness, or loss of consciousness. What should I avoid while taking chlordiazepoxide? Avoid drinking alcohol. Dangerous side effects or could occur. Avoid driving or hazardous activity until you know how this medicine will affect you. Dizziness or drowsiness can cause falls, accidents, or severe injuries. What are the possible side effects of chlordiazepoxide? Get emergency medical help if you have signs of an allergic reaction: hives; difficulty breathing; swelling of your face, lips, tongue, or throat. Chlordiazepoxide can slow or stop your breathing, especially if you have recently used an opioid medication or alcohol. A person caring for you should seek emergency medical attention if you have slow breathing with long pauses, blue colored lips, or if you are hard to wake up. Call your doctor at once if you have: severe drowsiness, slurred speech; slow heart rate, slow breathing (breathing may stop); problems with memory or concentration; unusual changes in mood or behavior, thoughts of suicide or hurting yourself; problems with balance or muscle movement; confusion, excitement, paranoia, anger, aggression; or stomach pain, loss of appetite. Drowsiness or dizziness may last longer in older adults. Use caution to avoid falling or accidentalinjury. Common side effects may include: drowsiness; confusion; or balance problems. After you stop using chlordiazepoxide, get medical help right away if you have symptoms such as: unusual muscle movements, being more active or talkative, sudden and severe changes in mood or behavior, confusion, hallucinations, seizures, suicidal thoughts or actions. Some withdrawal symptoms may last up to 12 months or longer after stopping this medicine suddenly. Tell your doctor if you have ongoing anxiety, depression, problems with memory or thinking, trouble sleeping, ringing in your ears, a burning or prickly feeling, or a crawling sensation under your skin. This is not a complete list of side effects and others may occur. Call your doctor for medical advice about side effects. You may report side effects to FDA at 3-163-RZM-4148. What other drugs will affect chlordiazepoxide? Using chlordiazepoxide with other drugs that make you sleepy or slow your breathing can cause dangerous side effects or . Ask your doctor before using opioid medication, a sleeping pill, a muscle relaxer, or medicine for anxiety or seizures. Other drugs may affect chlordiazepoxide, including prescription and jvra-dzh-dadffnu medicines, vitamins, and herbal products. Tell your doctor about all other medicines you use. Where can I get more information? Your pharmacist can provide more information about chlordiazepoxide. Remember, keep this and all other medicines out of the reach of children, never share your medicines with others, and use this medication only for the indication prescribed. Every effort has been made to ensure that the information provided by [employer]') is accurate, up-to-date, and complete, but no guarantee is made to that effect. Drug information contained herein may be time sensitive. [employer] information has been compiled for use by healthcare practitioners and consumers in the [place] and therefore [employer] does not warrant that uses outside of the [place] are appropriate, unless specifically indicated otherwise. [employer] drug information does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 March 23, 2023 12:18am [facility] Medical Records Department [address] [place] [address] H&P Exam - Hospitalist 03/23/23 0017 MR#: [id number] Acct: [id number] Name: KADE VILLA Rep #:[id number] : 1995 27 From: Stan Bullock PCP: Care Physician,No Primary Status :ADM IN Location: [facility] NL328-5 HPI - General General Date of Admission: 03/23/23 Date of Service: 03/23/23 Chief Complaint: Alcohol withdrawal symptoms. Feeling restless, drowsy and lethargic HPI Narrative KADE VILLA, is a 27 M with history [...] including hematemesis melena or alcoholic liver disease [facility] Medical History Alcohol abuse Anxiety Asthma [...] % (Auto) 58.3, Lymph % (Auto) 34.2, [place]% (Auto) 6.3, Eos % (Auto) 0.1, Baso [...] and tolerance: Patient is being admitted on MedSur floor. Patient is being admitted to MedSur floor. Patient on phenobarbital based order set along with other adjunctive medications gabapentin, Bentyl, Vistaril, clonidine, Klonopin as needed for alcohol withdrawal symptom control. Patient is on thiamine and folate acid. Twelve-lead EKG shows sinus tachycardiaat 108 bpm. Liver chemistry normal limit. GGT pending. Serum alcohol was highat 212. CIWA monitor. it operations manager consulted.. 2. Chronic nicotine use/cigarette smoking: [...] % (Auto) 58.3, Lymph % (Auto) 34.2, [place]% (Auto) 6.3, Eos % (Auto) 0.1, Baso [...] Alcohol 212.0 Charges/Coding Visit Charges Inpatient E&M: 72300 Init Hosp L3 03/23/23 0048 <Electronically signed by Stan Thomas MD> Cosigner Signature (if applicable): CC: Dr. Stan Thomas MD; No Primary Care Physician~ Signed [facility] Work Phone: 1([phone]) 246-739002-10-2024 Discharge summary Author Daquan Reid [facility] March 23, 2023 12:42am Note Date/Time March 22, 2023 1 0:17pm [facility] Medical Records Department [address] [place] [address] Emergency Department Summary 03/22/23 MR#: [id number] Acct: [id number] Name: KADE VILLA Rep #:[id number] : 1995 27 From: Daquan Reid MD PCP: Care Physician,No Primary Status :ADM IN [facility] Daquan Reid MD on [...] detox last year, then went [facility]. [facility] Medical History Alcohol abuse Anxiety [...] He was seen here for detox and Marnie of last year. He did not sign [...] discussed with Dr. Thomas for admission to [facility] for detox from alcohol. Patient is [...] % (Auto) 58.3 Lymph % (Auto) 34.2 [place] % (Auto) 6.3 Eos % (Auto) 0.1 [...] alcohol intoxication Disposition Disposition: Acute Care Hospital [facility] What to do if you have Problems For any increased pain, shortness of breath, bleeding, nausea or vomiting, chestpain, or any unexpected problems, contact your Primary Care Provider. Call [employer] [facility] ([phone]) or report to the closest Emergency Room. Call 911 if necessary. 03/23/23 0018 <Electronically signed by Daquan Redi MD> Cosigner Signature (if applicable): CC: No Primary Care Physician ~ Signed [facility] Work Phone: 1(241) 501-532002-10-2024 Discharge summary Author Daquan Reid [facility] March 23, 2023 12:42am Note Date/Time March 22, 2023 1 0:17pm [facility] Medical Records Department [address] [place] [address] Emergency Department Summary 03/22/23 MR#: [id number] Acct: [id number] Name: KADE VILLA Rep #:[id number] : 1995 27 From: Daquan Reid MD PCP: Care Physician,No Primary Status :ADM IN Location: [place] [address] Daquan Reid MD on [...] detox [facility] year, [facility] Medical History Alcohol abuse Anxiety Asthma [...] He was seen here for detox and Marnie of last year. He did not sign [...] discussed with Dr. Thomas for admission to [facility] for detox from alcohol. Patient is [...] % (Auto) 58.3 Lymph % (Auto) 34.2 [place] % (Auto) 6.3 Eos % (Auto) 0.1 [...] alcohol intoxication Disposition Disposition: Acute Care Hospital [facility] What to do if you have Problems For any increased pain, shortness of breath, bleeding, nausea or vomiting, chestpain, or any unexpected problems, contact your Primary Care Provider. Call [facility] ([phone]) or report to the closest Emergency Room. Call 911 if necessary. 03/23/2317 <Electronically signed by Daquan Reid MD> Cosigner Signature (if applicable): CC: No Primary Care Physician ~ Signed [facility] Work Phone: [phone]) [phone] Albert [facility] August 07, 2022 9:19am Note Date/Time August 07, 2022 9:18 am [facility] Medical Records Department [address] [place] [address] Instructions for Home/Discharge Instructions 08/07/22917 MR#: [id number] Acct: [id number] Name: KADE VILLA Rep #:[id number] : 1995 26 From: Carmelo Albert DO [...] DO>Carmelo Albert DO CC: Dr. Ashley Hirsch, DO; No Primary Care Physician ~ Signed [facility] Work Phone: [phone]) 675-230806-27-[address] Albert [facility] August 07, 2022 9:19am Note Date/Time August 07, 2022 9:19 am [facility] Medical Records Department [address] [place] [address] Discharge Summary 08/07/22918 MR#: [id number] Acct: [id number] Name: KADE VILLA Rep #:[id number] : 1995 From: Carmelo Albert DO PCP: Care Physician,No Primary Status :ADM IN Location: [facility] ZY927-6 Providers Date of Admission: 08/05/22 Primary Care Physician: Shelby Primary Care Phys Reason For Visit: ETOH [...] Patient to follow up [facility] for inpatient treatment on 08/08 Given reported [...] Self Care Charges/Coding Visit Charges Inpatient E&M: 36396 Disch Hosp 08/07/22 0966 <Electronically signed by Carmelo Albert DO> Cosigner Signature (if applicable): CC: Dr. Carmelo Albert DO; No Primary Care Physician~ Signed [facility] Work Phone: 1([phone]) 631-866406-27-2023 [facility] Medical Records Department [address] [place] [address] Discharge Summary 08/07/2219 MR#: [id number] Acct: [id number] Name: KADE VILLA Rep #: [id number] : 1995 From: Carmelo Albert DO PCP: Care Physician,No Primary Status:ADM IN Location: [place] [address] Providers Date of Admission: 08/05/22 Primary Care [...] Patient to follow up with [facility] for inpatient treatment on 08/08 Given reported [...] Care Charges/Coding Visit Charges Inpatient E M: 69197 Disch Hosp 08/07/22 0919 Cosigner Signature (if applicable): CC: Dr. Carmelo Albert, ; No Primary Care Physician [facility]-[address] Albert [facility] August 07, 2022 9:18am Note Date/Time August 07, 2022 8:02 am [facility] Medical Records Department [address] [place] [address] Progress Note - Hospitalist 08/07/22 0801 MR#: [id number] Acct: [id number] Name: KADE VILLA Rep #:[id number] : 1995 From: Carmelo Albert DO PCP: Care Physician,No Primary Status :ADM IN Location: [place] [address]-1 Reason for Visit Reason for Visit: Diagnoses [...] Patient to follow up with [facility] for inpatient treatment on 08/08 Given reported [...] Cosigner Signature (if applicable): CC: ~ Signed [facility] Work Phone: 1([phone]) 772-964806-26-[address] Albert [facility] August 06, 2022 12:45pm Note Date/Time August 06, 2022 8:25 am [facility] Medical Records Department [address] [place] [address] Progress Note - Hospitalist 08/06/22 0823 MR#: [id number] Acct: [id number] Name: KADE VILLA Rep #:[id number] : 1995 From: Carmelo Albert DO PCP: Care Physician,No Primary Status :ADM IN Location: [place] [address] Reason for Visit Reason for Visit: Diagnoses [...] % (Auto) 56.8, Lymph % (Auto) 33.2, [place]% (Auto) 8.3, Eos % (Auto) 0.3, Baso [...] Patient to follow up with [facility] for inpatient treatment on 08/08 PLAN: Plan Chronic complicating conditions: * Polysubstance abuse-Patient admits to utilizing cocaine and methamphetamines as well-Recommend cessation-180 consultation * Tobacco abuse-Recommend cessation-Nicotine patch DVT prophylaxis -Low risk -Recommend early and frequent ambulation CODE STATUS -Full code Charges/Coding Visit Charges Inpatient E&M: 59251 Subs Hosp L1 08/06/22 1247 <Electronically signed by Carmelo Albert DO> Cosigner Signature (if applicable): CC: ~ Signed [facility] Work Phone: 1(246) 668-377306-25-[address] Ridley [facility] August 05, 2022 7:14pm Note Date/Time August 05, 2022 3:51 pm [facility] Medical Records Department [address] [place] [address] Emergency Department Summary 08/05/22 MR#: [id number] Acct: [id number] Name: KADE VILLA Rep #:[id number] : 1995 26 From: Vilma CAMPA PCP: Care Physician,No Primary Status :ADM IN Location: [place] [id number] HPI <KATHERYN Mcdowell - Last Filed: 08/05/22 [...] but denies history of seizures or DTs. PFSH <KATHERYN Mcdowell - Last Filed: 08/05/22 17:08> [facility] Medical History (Updated 08/05/22 @ 17:[address] Ashley Hirsch, DO) No acute medical problems Polysubstance abuse [...] <KATHERYN Mcdowell - Last Filed: 08/05/22 17:08> [facility] MDM Narrative Medical decision making narrative: History [...] % (Auto) 56.8 Lymph % (Auto) 33.2 [place] % (Auto) 8.3 Eos % (Auto) 0.3 [...] (Auto) Neut % (Auto) Lymph % (Auto) [place] % (Auto) Eos % (Auto) Baso % [...] Ridley MD - Last Filed: 08/05/22 16:54> [facility] Lab Data Labs: Laboratory Results - last 24 hr 08/05/22 08/05/22 08/05/22 15:56 15:56 15:56 WBC 7.1 RBC 4.56 L Hgb 14.6 Hct 41.3 MCV 90.6 MCH 32.0 MCHC 35.4 RDW Std Deviation 38.1 RDW Coeff of Jessica 11.6 Plt Count 249 MPV 9.1 Immature Gran % (Auto) 0.400 Neut % (Auto) 56.8 Lymph % (Auto) 33.2 [place] % (Auto) 8.3 Eos % (Auto) 0.3 [...] (Auto) Neut % (Auto) Lymph % (Auto) [place] % (Auto) Eos % (Auto) Baso % [...] your Primary Care Provider. Call [facility] ([phone]) or report to the closest Emergency Room. Call 911 if necessary. 08/05/221707 <Electronically signed by Vilma CAMPA> Cosigner Signature (if applicable): 08/05/221913 <Electronically signed by Fior Ridley MD> CC: No Primary Care Physician ~ Signed [facility] Work Phone: 1(774) [phone] History and physical note Author Dr. Hirsch [facility] August 05, 2022 5:16pm Note Date/Time August 05, 2022 5:05 pm [facility] Medical Records Department [address] [place] [address] H&P Exam - Hospitalist 08/05/22 170 MR#: [id number] Acct: [id number] Name: KADE VILLA Rep #:[id number] : 1995 26 From: Ashley Hirsch DO PCP: Care Physician,No Primary Status :ADM IN Location: [facility] XT453-1 HPI - General General Date of Admission: 08/05/22 Date of Service: 08/05/22 Chief Complaint: Desire for detoxification from alcohol HPI Narrative KADE VILLA, is a 26 M who presented to the emergency department at [facility] on 08/05/2022 requesting detox from alcohol. [...] discharge is for readmission into inpatient rehab. [facility] Medical History No acute medical problems [...] % (Auto) 56.8, Lymph % (Auto) 33.2, [place]% (Auto) 8.3, Eos % (Auto) 0.3, Baso [...] -Full code Charges/Coding Visit Charges Inpatient E&M: 80437 Init Hosp L2 08/05/22 1716 <Electronically signed by Ashley Hirsch DO> Cosigner Signature (if applicable): CC: Dr. Ashley Hirsch DO; No Primary Care Physician~ Signed [facility] Work Phone: Discharge summary Author Marcio Cardona [facility] May 01, 2023 6:26am Note Date/Time May 01, 2023 5:2 8am [facility] Medical Records Department [address] [place] [address] Emergency Department Summary 05/01/23 MR#: [id number] Acct: [id number] Name: KADE VILLA Rep #:[id number] : 1995 27 From: Marcio Cardona MD [...] does not intend to do that again. [facility] Medical History (Updated 05/01/23 @ [...] your Primary Care Provider. Call [facility] ([phone]) or report to the closest Emergency Room. Call 911 if necessary. 05/01/23 06 <Electronically signed by Marcio Cardona MD> Cosigner Signature (if applicable): CC: No Primary Care Physician ~ Signed [facility] Work Phone: Evaluation note* Diagnosis Onset Date Resolution Status Alcohol abuse acute Desire for detoxification [facility] Work Phone: Evaluation note* Diagnosis Onset Date Resolution Status Acute alcohol intoxication a cute Acute hyperactive alcohol withdrawal delirium acute Desire for detoxification [facility] Work Phone: Evaluation note* Diagnosis Onset Date Resolution Status Acute hyperactive alcohol withdrawal delirium resolved Alcohol dependence acute Alcohol withdrawal acute [facility] Work Phone: Evaluation note* Diagnosis Onset Date Resolution Status Acute hyperactive alcohol withdrawal delirium resolved Alcohol withdrawal acute [facility] Work Phone: Evaluation note* Diagnosis Influenza [...] HealthHistory and physical note Author Dr. Hirsch [facility] August 05, 2022 5:16pm Note Date/Time August 05, 2022 5:05 pm [facility] Medical Records Department [address] [place] [id number] H&P Exam - Hospitalist 08/05/22 1701 MR#: [id number] Acct: [id number] Name: KADE VILLA Rep #:[id number] : 1995 26 From: Ashley Hirsch DO PCP: Care Physician,No Primary Status :ADM IN Location: [place] [address] HPI - General General Date of Admission: 08/05/22 Date of Service: 08/05/22 Chief Complaint: Desire for detoxification from alcohol HPI Narrative KADE VILLA, is a 26 M who presented to the emergency department at [facility] on 08/05/2022 requesting detox from alcohol. [...] discharge is for readmission into inpatient rehab. [facility] Medical History No acute medical problems Polysubstance abuse Tobacco abuse Home Medications NK 08/05/22 [History Last Taken Unknown] Allergy/AdvReac Type Severity Reaction Status Date / Time No Known Allergies Allergy Verified 08/05/22 16:09 no significant family history no surgical history Social History (Updated 08/05/22 @ 17:[address] Ashley Hirsch, DO) Smoking Status: Current every day smoker [...] % (Auto) 56.8, Lymph % (Auto) 33.2, [place]% (Auto) 8.3, Eos % (Auto) 0.3, Baso [...] -Full code Charges/Coding Visit Charges Inpatient E&M: 39255 Init Hosp L2 08/05/22 1716 <Electronically signed by Ashley Hirsch DO> Cosigner Signature (if applicable): CC: Dr. Ashley Hirsch DO; No Primary Care Physician~ Signed [facility] Work Phone: History and physical note Author Stan Thomas [facility] March 23, 2023 12:48am Note Date/Time March 23, 2023 12:18am [facility] Medical Records Department [address] [place] [address] H&P Exam - Hospitalist 03/23/23 0017 MR#: [id number] Acct: [id number] Name: KADE VILLA Rep #:[id number] : 1995 27 From: Stan Bullock PCP: Care Physician,No Primary Status :ADM IN Location: [facility] FS144-2 HPI - General General Date of Admission: 03/23/23 Date of Service: 03/23/23 Chief Complaint: Alcohol withdrawal symptoms. Feeling restless, drowsy and lethargic HPI Narrative KADE VILLA, is a 27 M with history [...] including hematemesis melena or alcoholic liver disease [facility] Medical History Alcohol abuse Anxiety Asthma [...] % (Auto) 58.3, Lymph % (Auto) 34.2, [place]% (Auto) 6.3, Eos % (Auto) 0.1, Baso [...] and tolerance: Patient is being admitted on MedSur floor. Patient is being admitted to MedSur floor. Patient on phenobarbital based order set along with other adjunctive medications gabapentin, Bentyl, Vistaril, clonidine, Klonopin as needed for alcohol withdrawal symptom control. Patient is on thiamine and folate acid. Twelve-lead EKG shows sinus tachycardiaat 108 bpm. Liver chemistry normal limit. GGT pending. Serum alcohol was highat 212. CIWA monitor. it operations manager consulted.. 2. Chronic nicotine use/cigarette smoking: [...] % (Auto) 58.3, Lymph % (Auto) 34.2, [place]% (Auto) 6.3, Eos % (Auto) 0.1, Baso [...] Alcohol 212.0 Charges/Coding Visit Charges Inpatient E&M: 09827 Init Hosp L3 03/23/23 0048 <Electronically signed by Stan Thomas MD> Cosigner Signature (if applicable): CC: Dr. Stan Thomas MD; No Primary Care Physician~ Signed [facility] Work Phone: History and physical note Author Jacquie Beckwith [facility] May 01, 2023 5:50am Note Date/Time May 01, 2023 5:3 3am [facility] Medical Records Department [address] [place] [address] H&P Exam - Hospitalist 05/01/23 0532 MR#: [id number] Acct: [id number] Name: KADE VILLA Rep #:[id number] : 1995 27 From: Jacquie Beckwith MD [...] Asthma, Chronic migraines who presents to the [facility] ED on 05/01/23 withlast EtOH intake reported [...] administered phenobarbital 97.2 mg p.o. x 1. [facility] Medical History (Updated 05/01/23 @ 05:48 [...] Asthma, Chronic migraines who presents to the [facility] ED on 05/01/23 withlast EtOH intake reported [...] type admission. Charges/Coding Visit Charges Inpatient E&M: 69026 Init Hosp L2 05/01/23 0550 <Electronically signed by Jacquie Beckwith MD> Cosigner Signature (if applicable): CC: Dr. Jacquie Beckwith MD; No Primary Care Physician~ Signed [facility] Work Phone: Hospital course Narrative No data available for this section [facility] Discharge instructions* Attachments The following attachments cannot be sent through Care Everywhere. * Chest Pain, Adult ED (Ecuadorean) * Troponin Test (Ecuadorean) * Drug Abuse Treatment (Ecuadorean) * Alcohol Use Disorder ED (Ecuadorean) * Polysubstance Use Disorder (Ecuadorean) * Substance Use Disorder ED (Ecuadorean) [facility] Additional Instructions Your exam would indicate you have an open jaw fracture. This type of trauma would indicate a significant force and there is high likelihood for other facial fractures or potential skull fracture/brain bleed. You also have high risk for infection setting in and will potentially need surgical fixation. By signing out AGAINST MEDICAL ADVICE you are risking systemic infection permanent disability facial abnormality and even .[facility] Work Phone: Instructions* Attachments The following attachments cannot be sent through Care Everywhere. * Flu Discharge Instructions, Adult (Ecuadorean) documented in this [facility] HealthcareReason for referral (narrative)No reason for referral information availableWWadsworth-Rittman [facility] Work Phone: Chief Complaint and Reason for Visit Chief [...] hyperactive al cohol withdrawal delirium Alcohol withdrawal Chief Complaint Admit Date ETOH DETOXIFICATION October 01, 2024 12 :22am ETOH DETOXIFICATION October 01, 2024 1: 51am Reason for Visit Admit Date Admitted to alcohol detoxification cente r October 01, 2024 12:22am Chief Complaint Admit Date ETOH DETOXIFICATION October 01, 2024 12 :22am ETOH DETOXIFICATION October 01, 2024 1: 51am alt loc October 02, 2024 4: 05am Advance Directives Advance Directive Response Recorded Date/ Time Living Will No August 05, 2022 4:09pm Power of Screen Tender Helper No August 05 4:09pm Advance Directive Response Recorded Date/ Time Living Will No August 05, 2022 6:27pm Power of Screen Tender Helper No August 05 6:27pm Advance Directive Response Recorded Date/ Time Living Will No March 22 10:56pm Power of Screen Tender Helper No March 22, 2023 10:56pm Advance Directive Response Recorded Date/ Time Living Will No March 23 024 1:01am Power of Screen Tender Helper No March 23, 2023 1:01am Advance Directive Response Recorded Date/ Time Living Will No May 01, 2023 5:10am Power of Screen Tender Helper No April 30 5:10am Advance Directive Response Recorded Date/ Time Living Will No May 01, 2023 6:45am Power of Screen Tender Helper No April 30 6:45am Advance Directive Response Recorded Date/ Time Living Will No June 19, 2023 11 :38pm Power of Screen Tender Helper No June 19, 2023 11:38pm Advance Directive Response Recorded Date/ Time Do you have a Healthcare Power of Screen Tender Helper? No October 01, 2024 1:52am Advance Directive Response Recorded Date/ Time Do you have a Healthcare Power of Screen Tender Helper? No October 01, 2024 1:52am Do you have a Healthcare Power of Screen Tender Helper? No October 02, 2024 4:09am Family History Relationship Condition Age at Onset Recorded Date/T [...] Active Dr. Ashley Hirsch DO Admit Provider, Att ending Provider, Other [...] Provider, Other Provider Ac tive Dr. Carmelo Ablert DO Attending Provider, Other Provid er Active [...] Dr. Carmelo Mccray DO Emergency Provider Active Team Status: Active Member Role/Relationship Status Dates No Primary Care Physician Primary Care Provider Active Team Status: Inactive Member Role/Relationship Status Dates No Primary Care Physician Primary Care Provider Active Start: October 01, 2024 End: October 01, 2024 Dr. Jacquie Beckwith MD Admit Provider Active St art: October 01, 2024 End: October 01, 2024 Dr. Jacquie Beckwith MD Other Provider Active St art: October 01, 2024 End: October 01, 2024 Dr. Rachel Stephen MD Attending Provider Active Start: October 01, 2024 End: October 01, 2024 Team Status: Active Member Role/Relationship Status Dates No Primary Care Physician Primary Care Provider Active Start: October 01, 2024 Dr. Jacquie Beckwith MD Admit Provider Active St art: October 01, 2024 Dr. Jacquie Beckwith MD Attending Provider Active Start: October 01, 2024 Dr. Jacquie Beckwith MD Other Provider Active St art: October 01, 2024 Team Status: Inactive Member Role/Relationship Status Dates No Primary Care Physician Primary Care Provider Active Start: October 02, 2024 End: October 02, 2024 Dr. Cloin Colon DO Emergency Provider Active Start: October 02, 2024 End: October 02, 2024 Goals (unrecognized section and content) Goals may be documented in a n alternate section No data available for this section (unrecognized sect ion and content) No Status Records FoundNo Status Records FoundNo Status Records FoundNo Status Records FoundNo Status Records Found INFORMATION SOURCE (unrecogn ized section and content) DATE CREATED AUTHOR 06/25/2023 [facility] DATE CREATED AUTHOR AUTHOR'S ORGANIZ ATION 06/28/2023 [facility] DATE CREATED AUTHOR AUTHOR'S ORGANIZ ATION 08/02/2023 [facility] DATE CREATED AUTHOR AUTHOR'S ORGANIZ ATION 06/26/2024 [facility] DATE CREATED AUTHOR AUTHOR'S ORGANIZ ATION 10/01/2024 [facility] Reason for Visit (unrecogniz ed section [...] BE BASED ON THE PRIMARY CLINICAL RECORDS. [employer] provides no warranty or guarantee of the accuracy or completeness of information in this document.
== END 2024-10-02 04:28 | disposition left against medical advice (07) ==
LOC: ED 04:28
PROVIDERS: Emergency Provider Emergency Medicine; Visit Provider Emergency Medicine
DX: S02.609B Fracture of mandible, unspecified, initial encounter for open fracture (principal); X58.XXXA Exposure to other specified factors, initial encounter; F17.210 Nicotine dependence, cigarettes, uncomplicated; F17.290 Nicotine dependence, other tobacco product, uncomplicated; Z53.21 Procedure and treatment not carried out due to patient leaving prior to being seen by health care provider
CPT/HCPCS: 99284

== ENCOUNTER 2024-10-02 04:54 | Emergency (ER) | payer MEDICAID, SELFPAY ==
[2024-10-02] VITALS (7 sets, daily range): BP systolic 124–145; BP diastolic 75–93; PULSE 74–100; RESP 14–18; TEMP 36.6–36.8; O2SAT 97–99; BMI 25.4
--- OUTSIDE RECORDS SUMMARY | 2024-10-02 05:06 | XMS RPT_ITS | CCD ---
Author Organization [facility] CliniSyme Care Team Providers Care Stockroom Coordinator Name Role Phone Dr. Fior Ridley Emergency Provider Care Physician, No Primary Primary Care Provider Unavailable Dr. Ashley Hirsch Admit Provider Dr. Ashley Hirsch Attending Provider Dr. Ashley Hirsch Other Provider Dr. Carmelo Albert Attending Provider Dr. Carmelo Albert Other Provider Care Physician, No Primary Primary Care Provider Unavailable MD Daquan Reid Emergency Provider [phone] Stan Thomas Admit Provider Dr. Stan Thomas Attending Provider Dr. Stan Thomas Other Provider [phone] Care Physician, No Primary Primary Care Provider Unavailable MD Daquan Reid Emergency Provider Dr. Stan Thomas Admit Provider [phone] Stan Thomas Attending Provider Dr. Stan [...] Consulting Unavailable Jacquie Beckwith Attending Unavailable Jacquie Beckwith Referring Unavailable Care Physician, No Primary Primary Care Unava ilable Carmelo Albert Attending Unavailable Jacquie Beckwith Admitting Unavailable Jacquie Beckwith Consulting Unavailable Care Physician, No Primary Primary Care Unava ilable Carmelo Mccray Attending Unavailable Care Physician, No Primary Primary Care Unava ilable NACHO RAYA, KATYA Consulting Unavailable NACHO RAYA, KATYA Attending Unavailable LAYO [employer] SUPERINTENDENT-MANAGER RAIL, OLIVIER Admitting Unavailab dominick LOW [employer] SUPERINTENDENT-MANAGER RAIL, VILMA Stokes Consulting Unavaila ble No Family, [...] Unavailable Dr. Jacquie Beckwith MD Admit Provider Dr. Jacquie Beckwith MD Other Provider Dr. Rachel Stephen MD Attending Provider UnavailDr. 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 Alcohol [...] Magnesium (Unsp spec) [Mass/Vol] 1.8 mg/dL 1.5-2.2 [facility] ACETAMINOPHENon 09-30-2024 Acetaminophen [Mass/Vol] ug/mL Low 10.0 - 30.0 [facility] Comment on above: Performed By: #### 2 15927 #### [address] [address] ALCOHOL-BLOOD MEDICALon 09-12 Ethanol [Mass/Vol] 94 mg/dL High 0 - 50 [facility] Comment on above: Performed By: #### 2 59202 #### [facility],[address] [place] [address] 37764 CBC + DIFFon 09-30-2024 Baso # 0.01 x10EE3/UL Normal 0.00 - 0.10 [facility] Comment on above: Performed By: #### 2 31674 #### [address] [address] Basophils/100 WBC (Bld) 0.2 % Normal 0.0 - 2.0 [facility] Comment on above: Performed By: #### 2 89474 #### [place] [address] CBC + DIFF Normal [facility] Comment on above: Result Comment: CBC- COMPLETE BLOOD COUNT Performed By: #### 2 44363 #### [facility],[address] [place] [address] EO # 0.14 x10EE3/UL Normal 0.00 - 0.50 [facility] Comment on above: Performed By: #### 2 09936 #### [place] [address] Eosinophils/100 WBC (Bld) 2.3 % Normal 0.0 - 7.0 [facility] Comment on above: Performed By: #### 2 39817 #### [place] [address] Erythrocyte distribution width (RBC) [Ratio] 12.4 % Normal 12.0 - 15.6 [facility] Comment on above: Performed By: #### 2 65981 #### [place] [address] Hematocrit (Bld) [Volume fraction] 41.7 % Normal 40.0 - 52.0 [facility] Comment on above: Performed By: #### 2 78997 #### [facility],[address] [place] [address] Hemoglobin (Bld) [Mass/Vol] 14.7 g/dL Normal 13.0 - 17.5 [facility] Comment on above: Performed By: #### 2 86776 #### [place] [address] Lymph # 2.10 x10EE3/UL Normal 0.80 - 2.80 [facility] Comment on above: Performed By: #### 2 97758 #### [facility],[address] [place] [address] Lymphocytes/100 WBC (Bld) 36.3 % Normal 20.0 - 45.0 [facility] Comment on above: Performed By: #### 2 87436 #### [facility],[address] [place] [address] MANUAL DIFF N/A Normal [facility] Comment on above: Performed By: #### 2 75442 #### [facility],[address] [place] [address] MCH (RBC) [Entitic mass] 35 pg High 27 - 33 [facility] Comment on above: Performed By: #### 2 92295 #### [facility],[address] [place] [address] MCHC 35 X10 3 Normal 32 - 36 [facility] Comment on above: Performed By: #### 2 25455 #### [facility],[address] [place] [address] MCV (RBC) [Entitic vol] 99 fL High 81 - 98 [facility] Comment on above: Performed By: #### 2 04782 #### [facility],[address] [place] [address] Barnes # 0.43 x10EE3/UL Normal 0.20 - 1.00 [facility] Comment on above: Performed By: #### 2 73351 #### [facility],[address] [place] [address] MONOS % 7.4 % Normal 0.0 - 10.0 [facility] Comment on above: Performed By: #### 2 31455 #### [facility],[address] [place], [place] [address] Morphology Isacc (Bld) [Interp] N/A Normal [facility] Comment on above: Performed By: #### 2 64557 #### [facility],[address],[place] [address] Neut # 3.10 x10EE3/UL Normal 1.50 - 7.10 [facility] Comment on above: Performed By: #### 2 31547 #### [facility],[address] [place] [address] Neutrophils/100 WBC (Bld) 53.7 % Normal 46.0 - 76.0 [facility] Comment on above: Performed By: #### 2 66660 #### [facility],[address] [place] [address] 31831 PLATELET 251 x10EE3/UL Normal 150 - 450 [facility] Comment on above: Performed By: #### 2 26362 #### [facility],[address] [place] [address] 97831 Platelet mean volume (Bld) [Entitic vol] 7.8 fL Normal 6.4 - 10.5 [facility] Comment on above: Result Comment: AUTO MATED DIFFERENTIAL Performed By: #### 2 51684 #### [facility],[address] [place] [address] 28076 RBC 4.20 x 10EE6/UL Low 4.50 - 6.00 [facility] Comment on above: Performed By: #### 2 59436 #### [facility],[address] [place] [address] WBC 5.8 x 10EE3/UL Normal 4.5 - 10.8 [facility] Comment on above: Performed By: #### 2 96303 #### [facility],[address] [place] [address] 15273 CMP with eGFRon 09-30-2024 AGE 28 years Normal [facility] Comment on above: Performed By: #### 2 01675 #### [facility],[address] [place] [address] 60338 Albumin [Mass/Vol] 3.2 g/dL Low 3.4 - 5.0 [facility] Comment on above: Performed By: #### 2 11006 #### [facility],[address] [place] [address] 84861 Albumin/Globulin [Mass ratio] 1.0 {ratio} Normal 0.9 - 1.6 [facility] Comment on above: Performed By: #### 2 88630 #### [facility],[address] [place] [address] 71320 ALK PHOS 72 U/L Normal 46 - 116 [facility] Comment on above: Performed By: #### 2 22108 #### [facility],[address] [place] [address] 82446 ALT [Catalytic activity/Vol] 69 U/L High 16 - 63 [facility] Comment on above: Performed By: #### 2 37740 #### [facility],[address] [place] [address] 74658 Anion gap [Moles/Vol] 14 mmol/L Normal 10 - 20 [facility] Comment on above: Performed By: #### 2 11055 #### [facility],[address] [place] [address] 94572 AST [Catalytic activity/Vol] 38 U/L High 15 - 37 [facility] Comment on above: Performed By: #### 2 87259 #### [facility],[address] [place] [address] 92558 B/C RATIO 8 ratio Normal 0 - 30 [facility] Comment on above: Performed By: #### 2 65693 #### [facility],[address] [place] [address] Bilirubin [Mass/Vol] 0.3 mg/dL Normal 0.2 - 1.0 [facility] Comment on above: Performed By: #### 2 06792 #### [facility],[address] [place] [address] 97880 Calcium [Mass/Vol] 8.2 mg/dL Low 8.5 - 10.1 [facility] Comment on above: Performed By: #### 2 53269 #### [facility],[address] [place] [address]3973 Chloride [Moles/Vol] 106 mmol/L Normal 98 - 107 [facility] Comment on above: Performed By: #### 2 44898 #### [facility],[address] [place] [address] 46606 CMP with eGFR Normal [facility] Comment on above: Result Comment: COMP REHENSIVE METABOLIC PANEL Performed By: #### 2 95411 #### [facility],[address] [place], [place] [address] CO2 [Moles/Vol] 27.7 mmol/L Normal 21.0 - 32.0 [facility] Comment on above: Performed By: #### 2 67200 #### [facility],[address] [place], [place] [address] Creatinine [Mass/Vol] 0.79 mg/dL Normal 0.70 - 1.30 [facility] Comment on above: Performed By: #### 2 57862 #### [facility],[address] [place] [address] 18428 GFR/1.73 sq M.predicted among non-blacks MDRD (S/P/Bld) [Vol rate/Area] mL/min/{1.73_m2} Normal 60 - 999 [facility] Comment on above: Performed By: #### 2 94819 #### [facility],[address] [place] [address] Result Comment: ACCO RDING TO THE NATIONAL KIDNEY DISEASE EDUCATION PROGRAM(NKDE), A NORMAL eGFR IS A VALUE GREATER THAN OR EQUAL TO 60 ML/MIN/1.73 SQ METERS. CHRONIC KIDNEY DISEASE: <60mL/MIN/1.73 SQ METERS KIDNEY FAILURE: <15mL/MIN/1.73 SQ METERS THIS TEST SHOULD ONLY BE USED FOR PATIENTS 18 YEARS OF AGE AND OLDER. Globulin (S) [Mass/Vol] 3.1 g/dL Normal 1.5 - 3.8 [facility] Comment on above: Performed By: #### 2 85636 #### [facility],[address] [place] [address]258 Glucose [Mass/Vol] 106 mg/dL Normal 74 - 106 [facility] Comment on above: Performed By: #### 2 74331 #### [facility],[address] [place] [address]672 Potassium [Moles/Vol] 3.7 mmol/L Normal 3.5 - 5.1 [facility] Comment on above: Performed By: #### 2 74296 #### [facility],[address] [place] [address] Protein [Mass/Vol] 6.3 g/dL Low 6.4 - 8.2 [facility] Comment on above: Performed By: #### 2 21255 #### [facility],[address] [place] [address]29 Sodium [Moles/Vol] 144 mmol/L Normal 136 - 145 [facility] Comment on above: Performed By: #### 2 42580 #### [facility],[address] [place] [address] 21032 Urea nitrogen [Mass/Vol] 6 mg/dL Low 7 - 18 [facility] Comment on above: Performed By: #### 2 41451 #### [facility],[address] [place] [address] 59947 DRUG SCREEN URINE MEDICon AMPHETAMINES Negative Normal [facility] Comment on above: Performed By: #### 2 23099 ####[facility],[address] [place] [address]32 B-DIAZEPINES Positive Normal [facility] Comment on above: Performed By: #### 2 28718 ####[facility],[address] [place] [address] 45442 BARBITURATES Positive Normal [facility] Comment on above: Performed By: #### 2 87948 ####[facility],[address] [place] [address]783 COCAINE Negative Normal [facility] Comment on above: Performed By: #### 2 51810 ####[facility],[address] [place] [address] DRUG SCREEN URINE MEDIC Normal J l [facility] Comment on above: Result Comment: DRUG SCREEN - URINE Performed By: #### 2 41392 ####[facility],[address] [place], [place] [address] METHADONE Negative Normal [facility] Comment on above: Performed By: #### 2 20250 ####[facility],[address] [place] [address] OPIATES Negative Normal [facility] Comment on above: Performed By: #### 2 15769 ####[facility],[address] [place] [address] PCP Negative Normal [facility] Comment on above: Performed By: #### 2 82044 ####[facility],[address] [place], [place] [address] THC Negative Normal [facility] Comment on above: Result Comment: CHACORTA ENTS RECEIVING PROTON PUMP INHIBITORS MAY DEMONSTRATE FALSE POSITIVE THC/CANNABINOID RESULTS. AN ALTERNATIVE CONFIRMATORY METHOD SHOULD BE CONSIDERED TO VERIFY POSITIVE RESULTS. Performed By: #### 2 32015 ####[facility],[address] [place] [address] ED MED ADMINISTRATION DETAIL on 09-30-2024 ED MED ADMINISTRATION DETAIL Metal Tester - KADE BARRERA, : 1995, , Medication Administration Record [address] [place] [address] [id number] 09/29/2024 Patient: KADE BARRERA Sex: Male : 1995 Age: 28y MEASUREMENTS: Wt: 78.9 kg, Ht/Pedro: 71.0 in, BMI: 24.27 ALLERGIES: No known drug allergies Medication Ordered Medication Administration Date/Time 1 of 1 Normal [facility] ED NURSES CLINICAL NOTEon ED NURSES CLINICAL NOTE Nurse Narrative - KADE BARRERA, : 1995, , Nurse Clinical [address] [place] [address] [id number] 09/29/2024 22:27:00 Patient: KADE BARRERA Sex: Male [...] 23:37 09/29/24 EDT Juanita Altman 00:51 09/30/24. Trigonometry Tutor at the patient's bedside (crisis). -- 01:16 09/30/24 EDT Sandra Olguin R.N. DISPOSITION / DISCHARGE Departure time: 01:32 09/30/2024. Condition at departure: improved. No learning barriers present. Discharge instructions provided and reviewed with the patient. Reviewe (more content not included)... Normal [facility] ED ORDER SHEET (CPOE ONLY)on 09-30-2024 ED ORDER SHEET (CPOE ONLY) Order Sheet - KADE BARRERA, : 1995, , Order Sheet [address] [address] [id number] 09/29/2024 Patient: KADE BARRERA Sex: Male : [...] D.O. (09/30/2024 02:22 EDT)] 2 of 2 [facility] ED PHYSICIAN CLINICAL REPORT on 09-30-2024 ED PHYSICIAN CLINICAL REPORT Narrative - KADE BARRERA, : 1995, , Physician Clinical Narrative [address] [address] [id number] 09/29/2024 22:27:00 Patient: KADE BARRERA Sex: Male [...] EDT CBC-COMPLETE BLOOD COUNT 3 of 11 [facility] - KADE BARRERA, : 1995, , 09/29/2024 [...] - 10.0 Final EDT 4 of 11 [facility] - KADE BARRERA, : 1995, , 09/29/2024 23:09 EO % 2.1 % 0.0 - 7.0 Final EDT 09/29/2024 23:09 BASO % 0.3 % 0.0 - 2.0 Final EDT 09/29/2024 23:09 Lymph # 1.71 x10/UL 0.80 - 2.80 Final EDT 09/29/2024 23:09 Neut # 3.94 x10/UL 1.50 - 7.10 Final EDT 09/29/2024 23:09 Barnes # 0.51 x10/UL 0.20 - 1.00 Fin (more content not included)... Normal [facility] ED SUPER BILLon 09-30-2024 ED SUPER BILL KADE Morales, : 1995, , [address] [address] [id number] 09/29/2024 Patient: KADE BARRERA Sex: Male : 1995 Age: 28y Item Professional Category Description Facility Code Code Quantity Fee Total Nurse/E/M EMERGENCY 857370 1 $0.00 $0.00 DEPARTMENT VISIT MODERATE SEVERITY (93846-89) Grand Total $0.00 Providers Rachel Bob D.O. Chief Complaint SUICIDAL THOUGHTS. Principal Diagnosis Anxiety reaction. Uncomplicated alcohol intoxication.No alcohol intoxication with delirium or alcohol dependence. 1 of 2 KADE Morales, : 1995, , ICD-10 Codes F41.1: Generalized anxiety disorder F10.120: Alcohol abuse with intoxication, uncomplicated F10.129: Alcohol abuse with intoxication, unspecified 2 of 2 Normal [facility] ED VISIT SUMMARYon ED VISIT SUMMARY Visit Overview - KADE BARRERA, : 1995, , Visit [place] [address] [place] [address] [id number] 09/29/2024 Patient: KADE BARRERA Sex: Male : [...] OR ALCOHOL DEPENDENCE 3 of 3 Normal [facility] ED VITALS FLOW SHEETon 09-30 ED VITALS FLOW SHEET Vitals - KADE GONZALEZ, : 1995, , Vital Sign Flow Sheet [address] [address] [id number] 09/29/2024 Patient: KADE BARRERA Sex: Male : 1995 Age: 28y Measurements Wt: 78.9 kg, Ht/Pedro: 71.0 in, BMI: 24.27 Measured Time BP MAP HR RR O2Sat ETCO2 Temp Pain GCS RTS 22:37 09/29/2024 142/77 99 104 16 95% 98.7 F 0 1 of 1 Normal [facility] SALICYLATEon 09-30-2024 SALICYLATE 3.2 mg/dl Normal 2.8 - 20.0 [facility] Comment on above: Result Comment: *PAT IENTS TREATED WITH SULFASALAZINE MAY GENERATE A FALSE HIGH RESULT FOR SALICYLATE. *PATIENTS TREATED WITH SULFAPYRIDINE MAY GENERATE A FALSE LOW RESULT FOR SALICYLATE. Performed By: #### 2 14669 #### [facility],[address] [place] [address] ACETAMINOPHENon 09-29-2024 Acetaminophen [Mass/Vol] ug/mL Low 10.0 - 30.0 [facility] Comment on above: Performed By: #### 2 97217 #### [facility],[address] [place] [address] ALCOHOL-BLOOD MEDICALon 09-11 Ethanol [Mass/Vol] 138 mg/dL High 0 - 50 [facility] Comment on above: Performed By: #### 2 28913 ####[facility],[address] [place] [address] CBC + DIFFon 09-29-2024 Baso # 0.02 x10EE3/UL Normal 0.00 - 0.10 [facility] Comment on above: Performed By: #### 2 22284 ####[facility],[address] [place] [address] 20170 Basophils/100 WBC (Bld) 0.3 % Normal 0.0 - 2.0 [facility] Comment on above: Performed By: #### 2 70769 ####[facility],[address] [place] [address] CBC + DIFF Normal [facility] Comment on above: Result Comment: CBC- COMPLETE BLOOD COUNT Performed By: #### 2 09328 ####[facility],[address] [place] [address] EO # 0.13 x10EE3/UL Normal 0.00 - 0.50 [facility] Comment on above: Performed By: #### 2 21601 ####[place] [address],[place] [address] Eosinophils/100 WBC (Bld) 2.1 % Normal 0.0 - 7.0 [facility] Comment on above: Performed By: #### 2 26945 ####[facility],[address] [place], [place] [address] Erythrocyte distribution width (RBC) [Ratio] 12.0 % Normal 12.0 - 15.6 [facility] Comment on above: Performed By: #### 2 87488 ####[facility],[address] [place], [place] [address] Hematocrit (Bld) [Volume fraction] 42.5 % Normal 40.0 - 52.0 [facility] Comment on above: Performed By: #### 2 27359 ####[place] [address] Hemoglobin (Bld) [Mass/Vol] 15.5 g/dL Normal 13.0 - 17.5 [facility] Comment on above: Result Comment: H AN D H REPEATED Performed By: #### 2 77263 ####[address] [address] Lymph # 1.71 x10EE3/UL Normal 0.80 - 2.80 [facility] Comment on above: Performed By: #### 2 78533 ####[address] [address] Lymphocytes/100 WBC (Bld) 27.1 % Normal 20.0 - 45.0 [facility] Comment on above: Performed By: #### 2 86998 ####[address] [address] MANUAL DIFF N/A Normal [facility] Comment on above: Performed By: #### 2 63130 ####[address] [address] MCH (RBC) [Entitic mass] 36 pg High 27 - 33 [facility] Comment on above: Performed By: #### 2 75037 ####[facility],[address] [place] [address]9711 MCHC 36 X10 3 Normal 32 - 36 [facility] Comment on above: Performed By: #### 2 94941 ####[facility],[address] [place] [address] 90737 MCV (RBC) [Entitic vol] 100 fL High 81 - 98 [facility] Comment on above: Performed By: #### 2 42199 ####[facility],[address] [place] [address] 01351 Barnes # 0.51 x10EE3/UL Normal 0.20 - 1.00 [facility] Comment on above: Performed By: #### 2 08304 ####[facility],[address] [place] [address] 69008 MONOS % 8.1 % Normal 0.0 - 10.0 [facility] Comment on above: Performed By: #### 2 06620 ####[facility],[address] [place] [address] 91531 Morphology Isacc (Bld) [Interp] N/A Normal [facility] Comment on above: Performed By: #### 2 66978 ####[facility],[address] [place] [address] 37531 Neut # 3.94 x10EE3/UL Normal 1.50 - 7.10 [facility] Comment on above: Performed By: #### 2 85226 ####[facility],[address] [place] [address] 29299 Neutrophils/100 WBC (Bld) 62.4 % Normal 46.0 - 76.0 [facility] Comment on above: Performed By: #### 2 67545 ####[facility],[address] [place] [address] 66983 PLATELET 244 x10EE3/UL Normal 150 - 450 [facility] Comment on above: Performed By: #### 2 96491 ####[facility],[address] [place] [address] 22515 Platelet mean volume (Bld) [Entitic vol] 7.6 fL Normal 6.4 - 10.5 [facility] Comment on above: Result Comment: AUTO MATED DIFFERENTIAL Performed By: #### 2 30795 ####[facility],[address] [place] [address] 08282 RBC 4.27 x 10EE6/UL Low 4.50 - 6.00 [facility] Comment on above: Performed By: #### 2 97147 ####[facility],[address] [place] [address] 55661 WBC 6.3 x 10EE3/UL Normal 4.5 - 10.8 [facility] Comment on above: Performed By: #### 2 79524 ####[facility],[address] [place], [place] [phone] CMP with eGFRon 09-29-2024 AGE 28 years Normal [facility] Comment on above: Performed By: #### 2 35138 #### [facility],[address] [place] [address] 77436 Albumin [Mass/Vol] 3.3 g/dL Low 3.4 - 5.0 [facility] Comment on above: Performed By: #### 2 87453 #### [facility],[address] [place], [place] [address] Albumin/Globulin [Mass ratio] 1.0 {ratio} Normal 0.9 - 1.6 [facility] Comment on above: Performed By: #### 2 36722 #### [facility],[address] [place] [address] 05461 ALK PHOS 75 U/L Normal 46 - 116 [facility] Comment on above: Performed By: #### 2 21101 #### [facility],[address] [place] [address] 11117 ALT [Catalytic activity/Vol] 76 U/L High 16 - 63 [facility] Comment on above: Performed By: #### 2 64011 #### [facility],[address] [place] [address] 74536 Anion gap [Moles/Vol] 11 mmol/L Normal 10 - 20 [facility] Comment on above: Performed By: #### 2 70167 #### [facility],[address] [place] [address] 20103 AST [Catalytic activity/Vol] 49 U/L High 15 - 37 [facility] Comment on above: Performed By: #### 2 37014 #### [facility],[address] [place] [address] 67992 B/C RATIO 6 ratio Normal 0 - 30 [facility] Comment on above: Performed By: #### 2 88416 #### [facility],[address] [place] [address] 10363 Bilirubin [Mass/Vol] 0.4 mg/dL Normal 0.2 - 1.0 [facility] Comment on above: Performed By: #### 2 47812 #### [facility],[address] [place] [address] 40410 Calcium [Mass/Vol] 8.6 mg/dL Normal 8.5 - 10.1 [facility] Comment on above: Performed By: #### 2 33355 #### [facility],[address] [place] [address] 20340 Chloride [Moles/Vol] 105 mmol/L Normal 98 - 107 [facility] Comment on above: Performed By: #### 2 73252 #### [facility],[address] [place] [address] 17896 CMP with eGFR Normal [facility] Comment on above: Result Comment: COMP REHENSIVE METABOLIC PANEL Performed By: #### 2 73450 #### [facility],[address] [place] [address] 44409 CO2 [Moles/Vol] 26.4 mmol/L Normal 21.0 - 32.0 [facility] Comment on above: Performed By: #### 2 72430 #### [facility],[address] [place] [address] 01219 Creatinine [Mass/Vol] 0.64 mg/dL Low 0.70 - 1.30 [facility] Comment on above: Performed By: #### 2 80741 #### [place] [address] GFR/1.73 sq M.predicted among non-blacks MDRD (S/P/Bld) [Vol rate/Area] mL/min/{1.73_m2} Normal 60 - 999 [facility] Comment on above: Performed By: #### 2 97617 #### [place] [address] Result Comment: ACCO RDING TO THE NATIONAL KIDNEY DISEASE EDUCATION PROGRAM(NKDE), A NORMAL eGFR IS A VALUE GREATER THAN OR EQUAL TO 60 ML/MIN/1.73 SQ METERS. CHRONIC KIDNEY DISEASE: <60mL/MIN/1.73 SQ METERS KIDNEY FAILURE: <15mL/MIN/1.73 SQ METERS THIS TEST SHOULD ONLY BE USED FOR PATIENTS 18 YEARS OF AGE AND OLDER. Globulin (S) [Mass/Vol] 3.4 g/dL Normal 1.5 - 3.8 [facility] Comment on above: Performed By: #### 2 49530 #### [address] [address] Glucose [Mass/Vol] 116 mg/dL High 74 - 106 [facility] Comment on above: Performed By: #### 2 45989 #### [address] [address] Potassium [Moles/Vol] 3.7 mmol/L Normal 3.5 - 5.1 [facility] Comment on above: Performed By: #### 2 79826 #### [address] [address] Protein [Mass/Vol] 6.7 g/dL Normal 6.4 - 8.2 [facility] Comment on above: Performed By: #### 2 58327 #### [facility],[address] [place] [address] 10356 Sodium [Moles/Vol] 139 mmol/L Normal 136 - 145 [facility] Comment on above: Performed By: #### 2 66940 #### [facility],[address] [place], [place] [address] Urea nitrogen [Mass/Vol] 4 mg/dL Low 7 - [facility] Comment on above: Performed By: #### 2 09036 #### [facility],[address] [place] [address] DRUG SCREEN URINE MEDICon AMPHETAMINES Negative Normal [facility] Comment on above: Performed By: #### 2 80817 #### [facility],[address] [place] [address] B-DIAZEPINES Positive Normal [facility] Comment on above: Performed By: #### 2 64693 #### [facility],[address] [place], [place] [phone] BARBITURATES Positive Normal [facility] Comment on above: Performed By: #### 2 31740 #### [facility],[address] [place], [place] [address] COCAINE Negative Normal [facility] Comment on above: Performed By: #### 2 08832 #### [facility],[address] [place] [address] 22092 DRUG SCREEN URINE MEDIC Normal [facility] Comment on above: Result Comment: DRUG SCREEN - URINE Performed By: #### 2 05168 #### [facility],[address] [place] [address] 65563 METHADONE Negative Normal [facility] Comment on above: Performed By: #### 2 98080 #### [facility],[address] [place] [address] 38874 OPIATES Negative Normal [facility] Comment on above: Performed By: #### 2 10043 #### [facility],[address] [place] [address] 32272 PCP Negative Normal [facility] Comment on above: Performed By: #### 2 21844 #### [facility],[address] [place], [place] [id number] THC Negative Normal [facility] Comment on above: Result Comment: CHACORTA ENTS RECEIVING PROTON PUMP INHIBITORS MAY DEMONSTRATE FALSE POSITIVE THC/CANNABINOID RESULTS. AN ALTERNATIVE CONFIRMATORY METHOD SHOULD BE CONSIDERED TO VERIFY POSITIVE RESULTS. Performed By: #### 2 22859 #### [facility],[address] [place], [place] [phone] SALICYLATEon 09-29-2024 SALICYLATE 3.0 mg/dl Normal 2.8 - 20.0 [facility] Comment on above: Result Comment: *PAT IENTS TREATED WITH SULFASALAZINE MAY GENERATE A FALSE HIGH RESULT FOR SALICYLATE. *PATIENTS TREATED WITH SULFAPYRIDINE MAY GENERATE A FALSE LOW RESULT FOR SALICYLATE. Performed By: #### 2 01700 #### [place] [id number] URINALYSISon 09-29-2024 Bilirubin Ql (U) Negative Normal NORMAL: NEGATIVE [facility] Comment on above: Performed By: #### 2 66683 #### [address] [address] Clarity (U) clear Normal NORMAL: CLEAR [facility] Comment on above: Performed By: #### 2 86988 #### [facility],[address] [place] [address] 45451 Color (U) yellow Normal NORMAL: YELLOW [facility] Comment on above: Performed By: #### 2 89867 #### [address] [address] Glucose Ql (U) NORM Normal NORMAL: NORMAL [facility] Comment on above: Performed By: #### 2 97899 #### [facility],[address] [place] [address] 40458 Hemoglobin Ql (U) Negative Normal NORMAL: NEGATIVE [facility] Comment on above: Performed By: #### 2 05232 #### [facility],[address] [place] [address] 13984 Ketone Negative Normal NORMAL: NEGATIVE [facility] Comment on above: Performed By: #### 2 41094 ####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 Performed By: #### L [id number] #### Manager Environmental Health And Safety: DIONNA JIMENEZ ([id number]) [facility] ([facility]) [address] [place] [address] [place] Eosinophils/100 WBC (Bld) 2.3 % Normal 0.0-6.0 [facility] Comment on above: Performed By: #### L [id number] #### Manager Environmental Health And Safety: DIONNA [id number]) [facility] ([facility]) [address] [place] [address] Erythrocyte distribution width (RBC) [Ratio] 12.7 % Normal 11.5-15.0 [facility] Comment on above: Performed By: #### L [id number] #### Manager Environmental Health And Safety: DIONNA JIMENEZ ([id number]) [facility]) [address] [place] [address] Hematocrit (Bld) [Volume fraction] 41.5 % Normal 40.0-52.0 [facility] Comment on above: Performed By: #### L [id number] #### Manager Environmental Health And Safety: DIONNA JIMENEZ ([id number]) [facility]) [address] [place] [address] Hemoglobin (Bld) [Mass/Vol] 15.4 g/dL Normal 13.0-18.0 [facility] Comment on above: Performed By: #### L [id number] #### Manager Environmental Health And Safety: DIONNA JIMENEZ ([id number]) [facility] ([facility]) [address] [place] [address] IMMATURE GRANS % 0.2 % Normal 0.0-2.0 [facility] Comment on above: Performed By: #### L [id number] #### Manager Environmental Health And Safety: DIONNA JIMENEZ ([phone]) [facility]) [address] [place] [address] IMMATURE GRANS ABSOLUTE 0.0 10*3/uL Normal <0.1 [facility] Comment on above: Performed By: #### L [id number] #### Manager Environmental Health And Safety: DIONNA JIMENEZ ([id number]) [facility] ([facility]) [address] [place] [address] Lymphocytes (Bld) [#/Vol] 1.8 10*3/uL Normal 1.0-4.3 [facility] Comment on above: Performed By: #### L [id number] #### Manager Environmental Health And Safety: DIONNA JIMENEZ ([id number]) [facility]) [address] [place] [address] Lymphocytes/100 WBC (Bld) 34.8 % Normal 15.0-45.0 [facility] Comment on above: Performed By: #### L [id number] #### Manager Environmental Health And Safety: DIONNA JIMENEZ ([id number]) [facility]) [address] [place] [address] MCH (RBC) [Entitic mass] 33.7 pg Normal 26.0-34.0 [facility] Comment on above: Performed By: #### L [id number] #### Manager Environmental Health And Safety: DIONNA JIMENEZ ([id number]) [facility]) [address] [place] [address] MCHC 37.1 % High 30.5-36.0 [facility] Comment on above: Performed By: #### L [id number] #### Manager Environmental Health And Safety: DIONNA JIMENEZ ([id number]) [facility]) [address] [place] [address] MCV (RBC) [Entitic vol] 90.8 fL Normal 77.0-99.0 [facility] Comment on above: Performed By: #### L [id number] #### Manager Environmental Health And Safety: DIONNA JIMENEZ ([id number]) [facility]) [address] [place] [address] Monocytes (Bld) [#/Vol] 0.5 10*3/uL Normal 0.0-0.9 [facility] Comment on above: Performed By: #### L [id number] #### Manager Environmental Health And Safety: DIONNA JIMENEZ ([id number]) [facility]) [address] [place] [address] Monocytes/100 WBC (Bld) 9.1 % Normal 5.0-13.0 [facility] Comment on above: Performed By: #### L [id number] #### Manager Environmental Health And Safety: DIONNA JIMENEZ ([id number]) [facility]) [address] [place] [address] NEUTROPHILS ABSOLUTE 2.7 10*3/uL Normal 1.8-7.5 [facility] Comment on above: Performed By: #### L [id number] #### Manager Environmental Health And Safety: DIONNA JIMENEZ ([id number]) [facility] [address] [place] [address] Neutrophils/100 WBC (Bld) 51.7 % Normal 38.0-82.0 [facility] Comment on above: Performed By: #### L [id number] #### Manager Environmental Health And Safety: DIONNA JIMENEZ ([id number]) [facility] ([facility]) [address] [place] [address] NRBC 0.0 /100 WBCs Normal 0.0-2.0 [facility] Comment on above: Performed By: #### L [id number] #### Manager Environmental Health And Safety: DIONNA JIMENEZ ([id number]) [facility] ([facility]) [address] [place] [address] Platelet mean volume (Bld) [Entitic vol] 9.8 fL Normal 9.0-12.7 [facility] Comment on above: Performed By: #### L [id number] #### Manager Environmental Health And Safety: DIONNA JIMENEZ ([id number]) [facility] ([facility]) [address] [place] [address] Platelets (Bld) [#/Vol] 226 10*3/uL Normal 140-440 [facility] Comment on above: Performed By: #### L [id number] #### Manager Environmental Health And Safety: DIONNA JIMENEZ ([id number]) [facility] ([facility]) [address] [place] [address] RBC (Bld) [#/Vol] 4.57 10*6/uL Normal 4.40-5.90 [facility] Comment on above: Performed By: #### L [id number] #### Manager Environmental Health And Safety: DIONNA JIMENEZ ([id number]) [facility] ([facility]) [address] [place] [address] [place] WBC (Bld) [#/Vol] 5.2 10*3/uL Normal 3.6-10.7 [facility] Comment on above: Performed By: #### L [id number] #### Manager Environmental Health And Safety: DIONNA JIMENEZ ([phone]) [facility]) [address] [place] [address] [place] CKon 06-11-2024 CK [Catalytic activity/Vol] 247 U/L High 30-185 [facility] Comment on above: Performed By: #### L [id number], [id number], LAB46, LAB62 ####Manager Environmental Health And Safety: DIONNA JIMENEZ ([id number])[facility])[address] [place] [address] DRUGS OF ABUSEon 06-11-2024 AMPHETAMINE SCREEN Positive Normal [facility] Comment on above: Performed By: #### L [id number] ####Manager Environmental Health And Safety: DIONNA JIMENEZ ([id number])[facility])[address] [place] [address] BARBITURATES SCREEN Positive Normal [facility] Comment on above: Performed By: #### L [id number] ####Manager Environmental Health And Safety: DIONNA JIMENEZ ([id number])[facility])[address] [place] [address] BENZODIAZEPINE SCREEN Negative Normal [facility] Comment on above: Performed By: #### L [id number] ####Manager Environmental Health And Safety: DIONNA JIMENEZ ([id number])[facility])[address] [place] [address] COCAINE METAB. SCREEN Negative Normal [facility] Comment on above: Performed By: #### L [id number] ####Manager Environmental Health And Safety: DIONNA JIMENEZ ([id number])[facility])[address] [place] [address] FENTANYL SCREEN, UR QUAL Negative Normal [facility] Comment on above: Result Comment: [...] under separate order. Performed By: #### L [id number] ####Manager Environmental Health And Safety: DIONNA JIMENEZ ([id number])[facility] [place] [address] METHADONE SCREEN Negative Normal [facility] Comment on above: Performed By: #### L [id number] ####Manager Environmental Health And Safety: DIONNA JIMENEZ ([id number])[facility] ([facility])[address] [place] [address] OPIATES SCREEN Negative Normal [facility] Comment on above: Performed By: #### L [id number] ####Manager Environmental Health And Safety: DIONNA JIMENEZ ([id number])[facility] ([facility])[address] [place] [address] OXYCODONE SCREEN Negative Normal [facility] Comment on above: Performed By: #### L [id number] ####Manager Environmental Health And Safety: DIONNA JIMENEZ ([id number])[facility] ([facility])[address] [place] [address] PHENCYCLIDINE SCREEN Negative Normal [facility] Comment on above: Performed By: #### L [id number] ####Manager Environmental Health And Safety: DIONNA JIMENEZ ([id number])[facility] ([facility])[address] [place] [address] ECG 12-LEADon 06-11-2024 ECG 12-LEAD IMPRESSION: Pacemaker spikes or artifacts Sinus rhythm Electronically Signed On 06-11-2024 10:13:28 EDT by Mike Wright [facility] ED Nursing Noteon 06-11-2024 ED Nursing Note Report given to Larry broderick RN. [facility] ED Nursing Note Pt ambulated independently back and forth to the restroom. 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 Pt currently on cardiac technologist; sts that the pain starts in the L shoulder and radiates into the neck and then jaw. Normal [facility] ED Nursing Note Pt heading to [facility] transport. Normal [facility] ED Provider Noteon ED Provider Note EMERGENCY DEPARTMENT ENCOUNTER Pt Name: Kade Barrera Birthdate 1995 Date of evaluation: 06/11/2024 ED Provider: Easton Dahl, [employer] SUPERINTENDENT - MANAGER RAIL Patient seen independently within my scope of [...] noted Psychia (more content not included)... Normal [facility] ETHANOLon 06-11-2024 ETHANOL IN SER/PLAS <10 Normal <10 [facility] Comment on above: Result Comment: MARTA R COMMENTS: SIGNAL TOWER OPERATOR depression is seen >100 mg/dL. NOTE: This result is for medical treatment only. Analysis performed using non-forensic procedures. Performed By: #### L AB15, [id number], LAB46, LAB62 ####Manager Environmental Health And Safety: DIONNA JIMENEZ ([id number])[facility] ([facility])[address] [place] [address] Ethanol (Bld) [Mass/Vol]on 0 06-11-2024 Ethanol [Mass/Vol] mg/dL NINF - 10 mg/dL [facility] Interpretation and review of laboratory results Normal [facility] SIGNAL TOWER OPERATOR depression is se en >100 mg/dL. NOTE: This result is for medical treatment only. Analysis performed using non-forensic procedures. [facility] HIGH SENSITIVITY TROPONIN, S ERIAL BASELINEon 06-11-2024 TROPONIN HS SERIAL BASELINE <3 Normal <=35 [facility] Comment on above: Result Comment: In i ndividuals presenting with symptoms > 2h, a baseline troponin <= 5 ng/L suggests acute cardiac injury is unlikely and further serial testing is generally not indicated. Performed By: #### L AB15, [id number], LAB46, LAB62 ####Manager Environmental Health And Safety: DIONNA JIMENEZ ([id number])[facility] ([facility])[address] [place] [address] Laboratory - Chemistry and C hemistry - challengeon 06-11-2024 CK [Catalytic activity/Vol] 247 U/L High 30 - 185 U/L [facility] Laboratory - Drug toxicology on 06-11-2024 Amphetamines Screen method >1000 ng/mL Ql (U) Positive [facility] Barbiturates Screen method >200 ng/mL Ql (U) Positive [facility] Benzodiazepines Ql (U) Negative [facility] Methadone Screen Ql (U) Negative S [facility] Opiates Screen Ql (U) Negative [facility] oxyCODONE Ql (U) Negative [facility] alth Phencyclidine Ql (U) Negative [facility] No Panel InformationOrdered By: Mike Wright on 06-11-2024 P [place] 67 degrees [facility] [employer] [facility] Work Phone: MA Interval 139 ms [facility] Work Phone: QRS [place] 80 degrees [facility] Work Phone: QRSD Interval 95 ms [facility] Work Phone: QT Interval 334 ms [facility] Work Phone: QTC Interval 418 ms [facility] Work Phone: T Wave [place] 52 degrees [facility] Work Phone: [facility] Work Phone: No Panel Informationon 06-11 Pacemaker spikes or artifacts Sinus rhythm Electronically Signed On 06-11-2024 10:13:28 EDT by Mike Wright CV Mike Angela MD - 06/11/2024 IMPRESSION: Pacemaker spikes or artifacts Sinus rhythm Electronically Signed On 06-11-2024 10:13:28 EDT by Mike Wright [facility] Interpretation and review of laboratory results Normal [facility] Troponin HS Serial Baseline ng/L NINF - 35 ng/L [facility] Comment on above: In individuals prese nting with symptoms > 2h, a baseline troponin <= 5 ng/L suggests acute cardiac injury is unlikely and further serial testing is generally not indicated. [facility] Interpretation and review of laboratory results Abnormal [facility] COCAINE METAB. SCREEN Negative [facility] FENTANYL SCREEN, UR QUAL Negative [facility] The expected value f or all [...] is needed, request confirmation under separate order. De Correspondent Vital signsOrdered By: Mike Wright on 06-11-2024 Heart rate 94 /min bpm [employer] Work Phone: XR Chest 2 Viewson 1. No evidence of an acute cardiopulmonary process. Report Dictated on Electronically Signed By: Jovanni Garcia MD Electronically Signed Date/Time: 06/11/2024 5:00 AM EDT [facility] Patient Name: KADE BARRERA : 1995 [...] bones and soft tissues are grossly unremarkable. [facility] Jovanni Garcia MD - 06/11/2024 Patient [...] Electronically Signed Date/Time: 06/11/2024 5:00 AM EDT [facility] Radiology Study observation (narrative) [facility] XR Chest 2 ViewsOrdered By: Jovanni Garcia on 06-11-[address] [facility] Work Phone: ED Nursing Noteon 06-10-2024 ED Nursing Note Pt did not want to w ait to be seen. Pt seen walking out of ED. Pt A&OX4. Steady gait noted. No IV access obtained during visit. Normal [facility] ED Nursing Note Pt states he called poison control due to mixing alcohol and ice. Pt states he has been drinking beer all day. Normal [facility] ED Provider Noteon ED Provider Note Patient left without being seen after initial triage by nursing staff. As such, I did not participate in the care of this patient. Danita Barcenas PA-C 06/11/24 0118 Normal [facility] AMB POC COVID-19 COVon 01-27 Interpretation and review of laboratory results Normal [facility] SARS-CoV-2 (COVID-19) RNA DOMINIC+non-probe Ql (Nph) Negative Negative [facility] AMB POC RAPID INFLUENZA DNA/ RNAon 01-28-2024 Inflenza A Ag Positive [facility] h Influenza B Ag Negative [facility] Interpretation and review of laboratory results Abnormal [facility] Office Visiton 01-28-2024 Follow-up visit [id number] Kade Barrera 1995 M Date Provider Department Center 01/28/2024 [id number] [facility] JARRETTVTKristie None No family history on file Level of Service:96524 [place] OFFICE/OUTPATIENT ESTABLISHED LOW MDM 20 MIN Reason for Visit and Comments: URI [115] - Cough /Body ache/ migraine/stuffy nose /pt stated that he started new medication yesterday and that when he started feeling sick. Normal [facility] Progress Noteon 01-28-2024 [facility] [address] [facility] [address] Dept: [phone] Dept Loc: [phone] Subjective Kade Barrera is a 28 y.o. [...] as words (more content not included)... Normal [facility] .Auto Diffon 06-20-2023 Basophil, Absolute 0.1 10 3/mcL Normal 0.0-0.2 [facility] ([place]) Comment on above: Performed By: #### A RIVERA IBARRA, CBC, ALC, ADIFF, CMP, GFR #### [address] [address] Basophils/100 WBC (Bld) 1.0 % Normal 0.0-2.5 A [facility] ([place]) Comment on above: Performed By: #### A MD STACEYW, CBC, ALC, ADIFF, CMP, GFR #### [address] [address] Eosinophil, Absolute 0.0 10 3/mcL Normal 0.0-0.4 [facility] ([place] Comment on above: Performed By: #### A MD STACEYW, CBC, ALC, ADIFF, CMP, GFR #### [address] [address] Eosinophils/100 WBC (Bld) 0.5 % Normal 0.0-7.0 [facility] [place] Comment on [place]: Performed By: #### A MD STACEYW, CBC, ALC, ADIFF, CMP, GFR #### [address] [address] Lymphocyte, Absolute 2.4 10 3/mcL Normal 0.8-3.9 [facility] ([place] Comment on above: Performed By: #### A MD STACEYW, CBC, ALC, ADIFF, CMP, GFR #### [address] [address] Lymphocytes/100 WBC (Bld) 29.4 % Normal 10.0-50.0 [facility] [place] Comment on above: Performed By: #### A MD STACEYW, CBC, ALC, ADIFF, CMP, GFR #### [address] [address] Monocyte, Absolute 0.6 10 3/mcL Normal 0.2-1.0 [facility] ([place]) Comment on above: Performed By: #### A RIVERA IBARRA, CBC, ALC, ADIFF, CMP, GFR #### [address] [address] Monocytes/100 WBC (Bld) 7.6 % Normal 1.7-13.0 A [facility] ([place]) Comment on above: Performed By: #### A RIVERA IBARRA, CBC, ALC, ADIFF, CMP, GFR #### [address] [address] Neutrophils/100 WBC (Bld) 61.5 % Normal 37.0-80.0 [facility] [place] Comment on above: Performed By: #### A RIVERA IBARRA, CBC, ALC, ADIFF, CMP, GFR #### [address] [address] .GFRon 06-20-2023 GFR 96 ml/min/1.73sqm Normal [facility] [place] Comment on above: Result Comment: GFR Population [...] RIVERA IBARRA, CBC, ALC, ADIFF, CMP, GFR ####[address] [address] GFR Non- 79 ml/min/1.73sqm Normal [facility] [place] Comment on above: Result Comment: GFR Population [...] RIVERA IBARRA, CBC, ALC, ADIFF, CMP, GFR ####[place] [id number] .MDWon 06-20-2023 Monocyte Distribution Width 18.60 Normal 0.00-20.00 [facility] ([place] Comment on above: Result Comment: For ED adult patients suspected of sepsis, MDW<=20.0 does not rule out sepsis or risk of sepsis Performed By: #### A RIVERA IBARRA, CBC, ALC, ADIFF, CMP, GFR #### [address] [address] .NEUABSon 06-20-2023 Neutrophil, Absolute 5.0 10 3/mcL Normal 2.9-6.2 [facility] ([place] Comment on above: Performed By: #### A RIVERA IBARRA, CBC, ALC, ADIFF, CMP, GFR #### [place] [address] Rob 06-20-2023 Ethanol Level <3 Normal 0-3 [facility] [place] Comment on above: Performed By: #### A RIVERA IBARRA, CBC, ALC, ADIFF, CMP, GFR #### [address] [address] Keiko 06-20-2023 Ammonia (P) [Moles/Vol] 15 umol/L Normal 11-32 A [facility] ([place]) Comment on above: Performed By: #### P HOS, PRO, AMM ####[address] [address] Basic Metabolic Profile (BMP )on 06-20-2023 BUN/CRE 10.0 RATIO Normal 10-20 [facility] Comment on above: Order Comment: 'TROP ' Serial specimen #1, #2 or #3: 1 Performed By: #### L 500.2500, L501.4020, L100.0100 ####[facility] [address] [place], [address] CA,Total 8.9 mg/dL Normal 8.5-10.1 [facility] Comment on above: Order Comment: 'TROP ' Serial specimen #1, #2 or #3: 1 Performed By: #### L 500.2500, L501.4020, L100.0100 ####[facility] [address] [place], [address] Chloride [Moles/Vol] 108 mmol/L High 98-107 [facility] Comment on above: Order Comment: 'TROP ' Serial specimen #1, #2 or #3: 1 Performed By: #### L 500.2500, L501.4020, L100.0100 ####[facility] [address] [place], [address] CO2 [Moles/Vol] 27.0 mmol/L Normal 21.0-32.0 [facility] Comment on above: Order Comment: 'TROP ' Serial specimen #1, #2 or #3: 1 Performed By: #### L 500.2500, L501.4020, L100.0100 ####[facility] [address] [place], [address] Creatinine [Mass/Vol] 0.90 mg/dL Normal 0.70-1.30 [facility] Comment on above: Order Comment: 'TROP ' Serial specimen #1, #2 or #3: 1 Result Comment: The validity of the calculated GFR GFRAA in patients over 70 years has not been determined. Clinical correlation is essential. Performed By: #### L 500.2500, L501.4020, L100.0100 ####[facility] [address] [place], [address] ECRCL 145.96 ml/min Normal [facility] Comment on above: Order Comment: 'TROP ' Serial specimen #1, #2 or #3: 1 Performed By: #### L 500.2500, L501.4020, L100.0100 ####[facility] [address] [place], [address] EST GFR - AA 131 mL/min Normal >60 [facility] Comment on above: Order Comment: 'TROP ' Serial specimen #1, #2 or #3: 1 Result Comment: Afri can [employer] GFR Calc Performed By: #### L 500.2500, L501.4020, L100.0100 ####[facility] [address] [place], [address] GAP 5 Normal 5-15 [facility] Comment on above: Order Comment: 'TROP ' Serial specimen #1, #2 or #3: 1 Performed By: #### L 500.2500, L501.4020, L100.0100 ####[facility] [address] [place], [address] GFR/1.73 sq M.predicted among non-blacks MDRD (S/P/Bld) [Vol rate/Area] 108 mL/min/{1.73_m2} Normal >60 [facility] Comment on above: Order Comment: 'TROP ' Serial specimen #1, #2 or #3: 1 Result Comment: Non- GFR Calc Performed By: #### L 500.2500, L501.4020, L100.0100 ####[facility] [address] [place], [address] Glucose [Mass/Vol] 84 mg/dL Normal 74-106 [facility] Comment on above: Order Comment: 'TROP ' Serial specimen #1, #2 or #3: 1 Performed By: #### L 500.2500, L501.4020, L100.0100 ####[facility] [address] [place], [address] Potassium [Moles/Vol] 3.7 mmol/L Normal 3.5-5.1 [facility] Comment on above: Order Comment: 'TROP ' Serial specimen #1, #2 or #3: 1 Performed By: #### L 500.2500, L501.4020, L100.0100 ####[facility] [address] [place], [address] Sodium [Moles/Vol] 140 mmol/L Normal 136-145 [facility] Comment on above: Order Comment: 'TROP ' Serial specimen #1, #2 or #3: 1 Performed By: #### L 500.2500, L501.4020, L100.0100 ####[facility] [address] [place], [address] Urea nitrogen [Mass/Vol] 9 mg/dL Normal 7-18 [facility] Comment on above: Order Comment: 'TROP ' Serial specimen #1, #2 or #3: 1 Performed By: #### L 500.2500, L501.4020, L100.0100 ####[facility] [address] [place], [address] CBCon 06-20-2023 Erythrocyte distribution width (RBC) [Ratio] 12.6 % Normal 11.5-14.5 [facility]) Comment on above: Performed By: #### A RIVERA IBARRA, CBC, ALC, ADIFF, CMP, GFR #### Angel [address] [address] Hematocrit (Bld) [Volume fraction] 40.3 % Low 42.0-52.0 [facility] [place] Comment on above: Performed By: #### A RIVERA IBARRA, CBC, ALC, ADIFF, CMP, GFR #### [place] [address] [place], [place] [address] Hgb 14.5 G/dL Normal 14.0-18.0 [facility] [place] Comment on above: Performed By: #### A RIVERA IBARRA, CBC, ALC, ADIFF, CMP, GFR #### [address] [address] MCH (RBC) [Entitic mass] 33.9 pg High 27.0-31.2 [facility] [place] Comment on above: Performed By: #### A RIVERA IBARRA, CBC, ALC, ADIFF, CMP, GFR #### [address] [address] MCHC 35.9 G/dL High 31.8-35.4 [facility] [place] Comment on above: Performed By: #### A RIVERA IBARRA, CBC, ALC, ADIFF, CMP, GFR #### [address] [address] MCV (RBC) [Entitic vol] 94.3 fL High 80.0-94.0 A [facility] ([place]) Comment on above: Performed By: #### A RIVERA IBARRA, CBC, ALC, ADIFF, CMP, GFR #### [address] [address] Platelet 230 10 3/mcL Normal 130-400 [facility] [place] Comment on above: Performed By: #### A RIVERA IBARRA, CBC, ALC, ADIFF, CMP, GFR #### [address] [address] Platelet mean volume (Bld) [Entitic vol] 7.5 fL Normal 7.4-10.4 [facility] ([place] Comment on above: Performed By: #### A RIVERA IBARRA, CBC, ALC, ADIFF, CMP, GFR #### [address] [address] RBC 4.27 10 6/mcL Normal 4.04-6.13 [facility] [place] Comment on above: Performed By: #### A RIVERA IBARRA, CBC, ALC, ADIFF, CMP, GFR #### [address] [address] WBC 8.1 10 3/mcL Normal 4.6-10.8 [facility] [place] Comment on above: Performed By: #### A MD STACEYW, CBC, ALC, ADIFF, CMP, GFR #### [place] [address] [place], [place] [address] CBC W/Diff, Automatedon 05-0 9-202 Absolute Lymph 2.47 X10 3/uL Normal 0.83-4.51 [facility] Comment on above: Performed By: #### L 500.2500, L501.4020, L100.0100 ####[facility] [address] [place], [address] Absolute Neut 5.2 X10 3/uL Normal 2.0-7.7 [facility] Comment on above: Performed By: #### L 500.2500, L501.4020, L100.0100 ####[facility] [address] [place], [address] Basophils/100 WBC (Bld) 0.9 % Normal 0-1 [facility] Comment on above: Performed By: #### L 500.2500, L501.4020, L100.0100 ####[facility] [address] [place], [address] Eosinophils/100 WBC (Bld) 0.6 % Normal 0-5 [facility] Comment on above: Performed By: #### L 500.2500, L501.4020, L100.0100 ####[facility] [address] [place], [address] Erythrocyte distribution width (RBC) [Ratio] 12.0 % Normal 11.6-14.6 [facility] Comment on above: Performed By: #### L 500.2500, L501.4020, L100.0100 ####[facility] [address] [place], [address] Hematocrit (Bld) [Volume fraction] 42.9 % Normal 40-54 [facility] Comment on above: Performed By: #### L 500.2500, L501.4020, L100.0100 ####[facility] [address] [place], [address] Hemoglobin (Bld) [Mass/Vol] 14.8 g/dL Normal 13.0-16.5 [facility] Comment on above: Performed By: #### L 500.2500, L501.4020, L100.0100 ####[facility] [address] [place], [address] IG% 0.400 Normal 0.0-0.9 [facility] Comment on above: Result Comment: IG% - Immature Granulocytes (promyelocytes, myelocytes and metamyelocytes) > 1% indicates that a LEFT SHIFT is Present. Performed By: #### L 500.2500, L501.4020, L100.0100 ####[facility] [address] [place], [address] Lymphocytes/100 WBC (Bld) 28.9 % Normal 19-41 [facility] Comment on above: Performed By: #### L 500.2500, L501.4020, L100.0100 ####[facility] [address] [place], [address] MCH (RBC) [Entitic mass] 33.0 pg High 27.0-32.0 [facility] Comment on above: Performed By: #### L 500.2500, L501.4020, L100.0100 ####[facility] [address] [place], [address] MCHC (RBC) [Mass/Vol] 34.5 g/dL Normal 32-36 [facility] Comment on above: Performed By: #### L 500.2500, L501.4020, L100.0100 ####[facility] [address] [place], [address] MCV (RBC) [Entitic vol] 95.8 fL High 80-94 [facility] Comment on above: Performed By: #### L 500.2500, L501.4020, L100.0100 ####[facility] [address] [place], [address] Monocytes/100 WBC (Bld) 8.4 % Normal 0-10 [facility] Comment on above: Performed By: #### L 500.2500, L501.4020, L100.0100 ####[facility] [address] [place], [address] Neutrophils/100 WBC (Bld) 60.8 % Normal 47-70 [facility] Comment on above: Performed By: #### L 500.2500, L501.4020, L100.0100 ####[facility] [address] [place], [address] Nucleated RBC (Bld) [#/Vol] 0 10*3/uL Normal 0-5 [facility] Comment on above: Performed By: #### L 500.2500, L501.4020, L100.0100 ####[facility] [address] [place], [address] Platelet mean volume (Bld) [Entitic vol] 9.6 fL Normal 6.2-12.0 [facility] Comment on above: Performed By: #### L 500.2500, L501.4020, L100.0100 ####[facility] [address] [place], [address] Platelets (Bld) [#/Vol] 263 10*3/uL Normal 150-450 [facility] Comment on above: Performed By: #### L 500.2500, L501.4020, L100.0100 ####[facility] [address] [place], [address] RBC (Bld) [#/Vol] 4.48 10*6/uL Low 4.6-6.2 [facility] Comment on above: Performed By: #### L 500.2500, L501.4020, L100.0100 ####[facility] [address] [place], [address] RDW SD 41.5 fl Normal 35.1-43.9 [facility] Comment on above: Performed By: #### L 500.2500, L501.4020, L100.0100 ####[facility] [address] [place], [address] WBC (Bld) [#/Vol] 8.6 10*3/uL Normal 4.4-11.0 [facility] Comment on above: Performed By: #### L 500.2500, L501.4020, L100.0100 ####[facility] [address] [place], [address] CMPon 06-20-2023 Albumin Level 3.8 G/dL Normal 3.5-5.0 [facility] [place] Comment on [place]: Performed By: #### A RIVERA IBARRA, CBC, ALC, ADIFF, CMP, GFR #### [address] [address] Albumin/Globulin [Mass ratio] 1.3 {ratio} Normal 1.1-2.5 [facility] [place] Comment on above: Performed By: #### A RIVERA IBARRA, CBC, ALC, ADIFF, CMP, GFR #### [place] [address] [place], [place] [address] ALP [Catalytic activity/Vol] 77 U/L Normal 40-135 [facility] ([place] Comment on above: Performed By: #### A RIVERA IBARRA, CBC, ALC, ADIFF, CMP, GFR #### [place] [address] [place], [place] [address] ALT [Catalytic activity/Vol] 28 U/L Normal 16-63 [facility] [place] Comment on above: Performed By: #### A RIVERA IBARRA, CBC, ALC, ADIFF, CMP, GFR #### [address] [address] AST [Catalytic activity/Vol] 17 U/L Normal 10-40 [facility] ([place] Comment on above: Performed By: #### A RIVERA IBARRA, CBC, ALC, ADIFF, CMP, GFR #### [address] [address] Bili Total 0.3 mg/dL Normal 0.2-1.0 [facility] ([place] Comment on above: Result Comment: Use of this assay is not recommended for patients undergoing treatment with eltrombopag due to the potential for falsely elevated results. Performed By: #### A RIVERA IBARRA, CBC, ALC, ADIFF, CMP, GFR #### [place] [address] BUN/Creatinine Ratio 8 ratio Normal 7-27 [facility] ([place]) Comment on above: Performed By: #### A RIVERA IBARRA, CBC, ALC, ADIFF, CMP, GFR #### [address] [address] Calcium [Mass/Vol] 8.6 mg/dL Normal 8.4-10.2 [facility] ([place]) Comment on above: Performed By: #### A RIVERA IBARRA, CBC, ALC, ADIFF, CMP, GFR #### [address] [address] Chloride [Moles/Vol] 105 mmol/L Normal 98-107 [facility] ([place]) Comment on above: Performed By: #### A RIVERA IBARRA, CBC, ALC, ADIFF, CMP, GFR #### [address] [address] CO2 [Moles/Vol] 24 mmol/L Normal 22-29 [facility] ([place] Comment on above: Performed By: #### A RIVERA IBARRA, CBC, ALC, ADIFF, CMP, GFR #### [address] [address] Creatinine [Mass/Vol] 1.12 mg/dL Normal 0.70-1.30 [facility] ([place]) Comment on above: Performed By: #### A RIVERA IBARRA, CBC, ALC, ADIFF, CMP, GFR #### [address] [address] Electrolyte Balance 14.0 mEq/L Normal 4.0-15.0 [facility] ([place]) Comment on above: Performed By: #### A RIVERA IBARRA, CBC, ALC, ADIFF, CMP, GFR #### [address] [address] Globulin 2.9 G/dL Normal [facility] ([place] Comment on above: Performed By: #### A RIVERA IBARRA, CBC, ALC, ADIFF, CMP, GFR #### [address] [address] Glucose [Mass/Vol] 99 mg/dL Normal 70-105 [facility] ([place]) Comment on above: Performed By: #### A RIVERA IBARRA, CBC, ALC, ADIFF, CMP, GFR #### [address] [address] Potassium [Moles/Vol] 4.1 mmol/L Normal 3.5-5.1 [facility] ([place]) Comment on above: Performed By: #### A RIVERA IBARRA, CBC, ALC, ADIFF, CMP, GFR #### [address] [address] Sodium [Moles/Vol] 143 mmol/L Normal 136-145 [facility] ([place]) Comment on above: Performed By: #### A RIVERA IBARRA, CBC, ALC, ADIFF, CMP, GFR #### [address] [address] Total Protein 6.7 G/dL Normal 6.4-8.2 [facility] [place] Comment on above: Performed By: #### A RIVERA IBARRA, CBC, ALC, ADIFF, CMP, GFR #### [facility] [address] [place], [place] [address] Urea nitrogen [Mass/Vol] 9 mg/dL Normal 7-18 [facility] [place] Comment on above: Performed By: #### A MD STACEYW, CBC, ALC, ADIFF, CMP, GFR #### [place] [address] [place], [place] [address] CT HEAD OR BRAIN W/O CONTRAS Ton [...] 06/20/2023 3:18:15 AM Ordering Provider: MICHAEL [facility] ([place] CT SPINE CERVICAL W/O CONTRA STon 06-20-2023 [...] 06/20/2023 3:20:14 AM Ordering Provider: MICHAEL Robertson [facility]) L501.4020on 06-20-2023 TROPONIN-I HS 10 pg/mL Normal 3.0-78.0 [facility] Comment on above: Order Comment: 'TROP ' Serial specimen #1, #2 or #3: 1 Result Comment: Maureen yoo Note: New Test Units and Gender Specific Reference Ranges. For more information see Policy Stat Procedure Zamora High Sensitivity Troponin (TNIH) and attachments. Performed By: #### L 500.2500, L501.4020, L100.0100 ####[facility] [address] [place], [address] LABORATORYOrdered By: SYSTEM SYSTEM on 06-20-2023 Ammonia [...] Comment on above: Interpretive Data: Hernandez glasgow [employer] (CHEST, 1992, 102:312S-25S) [...] INFLUENZA B Negative RSV PCR Negative Normal [facility] Comment on above: Performed By: #### M 100.678 ####[facility] [address] [place], [address] MGon 06-20-2023 Magnesium [Mass/Vol] 2.1 mg/dL Normal 1.8-2.4 [facility] ([place]) Comment on above: Performed By: #### M G ####Angel [address] [place], [place] [address] Magnesium [Mass/Vol] 1.7 mg/dL Low 1.8-2.4 [facility] ([place]) Comment on above: Performed By: #### M G ####[address] [place], [place] [address] MRI BRAIN W/O CONTRASTon MRI BRAIN W/O [...] 4:13:50 PM Ordering Provider: ANA MARIA [facility] ([place]) PHOSon 06-20-2023 Phosphate [Mass/Vol] 2.9 mg/dL Normal 2.7-4.5 [facility] ([place]) Comment on above: Performed By: #### P HOS, PRO, AMM ####[address] [place], [place] [address] PROon 06-20-2023 PT Coag (PPP) [Time] 9.8 s Normal 9.0-14.4 [facility] ([place]) Comment on above: Performed By: #### P HOS, PRO, AMM ####Angel [address] [place], [place] [address] PT International Ratio 0.8 Normal [facility] ([place]) Comment on above: Result Comment: [employer] (CHEST, 1992, 102:312S-25S) recommended therapeutic range for oral anticoagulant therapy is: LOW RISK: Prophylaxis of venous thrombosis INR: 2.0-3.0 Treatment of pulmonary embolism 2.0-3.0 Prevention of systemic embolism 2.0-3.0 HIGH RISK: Mechanical prosthetic valves 2.5-3.5 Performed By: #### P HOS, PRO, AMM ####[address] [place], [place] [address] UDRUGon 06-20-2023 Amphetamine (u) Negative Normal Negative [facility] [place] Comment on above: Performed By: #### U DRUG #### [address] [address] Barbiturate (u) Negative Normal Negative [facility] [place] Comment on above: Performed By: #### U DRUG #### Angel [address] [address] Benzodiazepine (u) Negative Normal Negative [facility] ([place]) Comment on above: Performed By: #### U DRUG #### [address] [address] Cannabinoid (u) Negative Normal Negative [facility] [place] Comment on above: Performed By: #### U DRUG #### [address] [address] Cocaine Ql (U) Negative Normal Negative [facility] [place] Comment on above: Performed By: #### U DRUG #### [address] [address] Methadone Ql (U) Negative Normal Negative [facility] [place] Comment on above: Performed By: #### U DRUG #### Angel [address] [address] Opiate (u) Negative Normal Negative [facility] [place] Comment on above: Performed By: #### U DRUG #### Angel [address] [address] PCP (u) Negative Normal Negative [facility] [place] Comment on above: Performed By: #### U DRUG #### [address] [address] Urine Drugs screened: See Below Normal [facility] ([place]) Comment on above: Result Comment: This drug [...] Performed By: #### U DRUG #### Angel [address] [address] XR CHEST 1 VIEWon 06-20-2023 XR CHEST [...] No acute cardiopulmonary process. Interpreted by: Chris eLonard MD Preliminary Report By: Chris Leonard MD Electronically signed By Chris Leonard MD Dictated Date: 06/20/2023 3:12:02 AM Prelim Date: 06/20/2023 3:12:39 AM Sign Date: 06/20/2023 3:12:39 AM Ordering Provider: MICHAEL [facility] [place] Absolute lymphocyte countOrd ered By: Carmelo Mccray on 06-19-2023 Lymphocytes Auto (Unsp spec) [#/Vol] 2.47 10*3/uL 0.83-4.51 [facility] Automated lymphocyte count a s percentage of total leukocytesOrdered By: Carmelo Mccray on 06-19-2023 Lymphocytes/100 WBC Auto (Unsp spec) 28.9 % 19-41 [facility] Basophil percentageOrdered B y: Carmelo Natashapilar on 06-19-2023 Basophils/100 WBC (Bld) 0.9 % 0-1 [facility] Chloride [Moles/Vol] 108 mmol/L 98-107 [facility] Eosinophils/100 WBC (Bld) 0.6 % 0-5 [facility] Glucose [Mass/Vol] 84 mg/dL 74-106 [facility] Hemoglobin (Bld) [Mass/Vol] 14.8 g/dL 13.0-16.5 [facility] Monocytes/100 WBC (Bld) 8.4 % 0-10 [facility] Neutrophils (Bld) [#/Vol] 5.2 10*3/uL 2.0-7.7 [facility] Neutrophils/100 WBC (Bld) 60.8 % 47-70 [facility] Potassium [Moles/Vol] 3.7 mmol/L 3.5-5.1 [facility] Sodium [Moles/Vol] 140 mmol/L 136-145 [facility] WBC (Bld) [#/Vol] 8.6 10*3/uL 4.4-11.0 [facility] Chest PA and Lateralon 06-18 Chest PA and Lateral [facility] Imaging Services [address] [place] [address] Chest PA and Lateral MR#: [id number] Acct: [id number] Name: KADE VILLA Rep #: [id number] : 1995 M 27 From: Rona Bullock PCP: Care Physician,No Primary Status: REG ER Study: Chest PA and Lateral Date of Exam: 06/19/23 Exam# [id number] Ordering [place]: [place] [id number] INDICATION: Dizziness EXAMINATION/TECHNIQUE: X-RAY - XR Chest 2 Views COMPARISON: None. FINDINGS: LINES/DEVICES: None. LUNGS: No consolidation. No pneumothorax. MEDIASTINUM: Unremarkable. CARDIAC SILHOUETTE: Not enlarged. BONES AND SOFT TISSUES: No acute abnormalities. RAD/Chest PA and Lateral IMPRESSION: No evidence of active intrathoracic disease. Electronically Signed: Rona Rivera MD at 0:12 EDT , CC: Dr. Carmelo Mccray DO; No Primary Care Physician Mud Mill Tender: Signed Normal [facility] Determination of erythrocyte mean corpuscular volume (MCV)Ordered By: Carmelo Mccray on 06-19-2023 MCV (RBC) [Entitic vol] 95.8 fL 80-94 [facility] Emergency Department Summary on 06-19-2023 Emergency Department Summary [facility] Medical Records Department [address] [place] [address] Emergency Department Summary 06/19/23 MR#: [id number] Acct: [id number] Name: DAISYKADE GAIL Rep #: [id number] : 1995 27 From: Carmelo Mccray [...] better and nothing makes them worse. PFSH [facility] Medical History Alcohol abuse Alcohol dependence Anxiety [...] intact bilateral (more content not included)... Normal [facility] Erythrocyte distribution wid th ratioOrdered By: Carmelo Mccray on 06-19-2023 Erythrocyte distribution width (RBC) [Ratio] 12.0 % 11.6-14.6 [facility] Erythrocyte distribution wid th standard deviationOrdered By: Carmelo Mccray on 06-19-2023 Erythrocyte distribution width (RBC) [Entitic vol] 41.5 fL 35.1-43.9 [facility] Hematocrit Auto (Bld) [Volum e fraction]Ordered By: Carmelo Mccray on 06-19-2023 Hematocrit (Bld) [Volume fraction] 42.9 % 40-54 [facility] Immature granulocytes/100 WB C Auto (Bld)Ordered By: Carmelo Mccray on 06-19-2023 Immature granulocytes/100 WBC (Bld) 0.400 % 0.0-0.9 [facility] Comment on above: IG% - Immature Granu locytes (promyelocytes, myelocytes and metamyelocytes) > 1% indicates that a LEFT SHIFT is Present. Laboratory - Chemistry and C hemistry - challengeOrdered By: Carmelo Mccray on 06-19-2023 CO2 [Moles/Vol] 27.0 mmol/L 21.0-32.0 [facility] Urea nitrogen/Creatinine [Mass ratio] 10.0 mg/mg 10-20 [facility] Laboratory - Hematology and Cell countsOrdered By: Carmelo Mccray on 06-19-2023 MCH (RBC) [Entitic mass] 33.0 pg 27.0-32.0 [facility] MCHC (RBC) [Mass/Vol] 34.5 g/dL 32-36 [facility] Nucleated RBC/100 WBC (Bld) [Ratio] 0 % 0-5 [facility] Platelet mean volume (Bld) [Entitic vol] 9.6 fL 6.2-12.0 [facility] Platelets (Bld) [#/Vol] 263 10*3/uL 150-450 [facility] Laboratory - Microbiology an d Antimicrobial susceptibilityOrdered By: Carmelo Mccray on 06-19-2023 SARS-CoV-2 (COVID-19) RNA DOMINIC+probe Ql (Unsp spec) [facility] No Panel InformationOrdered By: Carmelo Mccray on 06-19-2023 Estimated Creatinine Clearance Calc 145.96 ml/min [facility] Estimated GFR (MDRD) Amer 131 mL/min >60 [facility] Comment on above: GFR Calc Estimated GFR (MDRD) Non-Af Amer 108 mL/min >60 [facility] Comment on above: Non- GFR Calc Troponin I High Sensitivity 10 pg/mL 3.0-78.0 [facility] Comment on above: Please Note: New Rhea t Units and Gender Specific Reference Ranges. For more information see Policy Stat Procedure Zamora High Sensitivity Troponin (TNIH) and attachments. RBC Auto (Bld) [#/Vol]Ordere d By: Carmelo Mccray on 06-19-2023 RBC (Bld) [#/Vol] 4.48 10*6/uL 4.6-6.2 [facility] Serum or plasma calcium gaetano urement (mass/volume)Ordered By: Carmelo Mccray on 06-19-2023 Calcium [Mass/Vol] 8.9 mg/dL 8.5-10.1 [facility] Serum or plasma creatinine m easurement (mass/volume)Ordered By: Carmelo Mccray on 06-19-2023 Creatinine [Mass/Vol] 0.90 mg/dL 0.70-1.30 [facility] Comment on above: The validity of the calculated GFR & GFRAA in patients over 70 years has not been determined. Clinical correlation is essential. Serum or plasma urea nitroge n measurement (mass/volume)Ordered By: Carmelo Mccray on 06-19-2023 Urea nitrogen [Mass/Vol] 9 mg/dL 7-18 [facility] Thin prep Papanicolaou smear with manual screeningOrdered By: Carmelo Mccray on 06-19-2023 Thin prep Papanicolaou smear with manual screening 5 5-15 [facility] CBC W/Diff, Automatedon 04-12 PATH REV Reviewed Normal [facility] Comment on above: Result Comment: Poly cythemiaClinical correlation necessary. Mahesh Sharma M.D. 05/02/23 AMENDED REPORT 05/02/23 0932 PATH REV previously reported as: June amalia Performed By: #### L 505.5000, L501.9100, L500.4050, L501.5200, L300.3900, L100.0100 ####[facility] [address] [place], [address] Absolute lymphocyte countOrd ered By: Marcio Cardona on 05-01-2023 Lymphocytes Auto (Unsp spec) [#/Vol] 4.15 10*3/uL 0.83-4.51 [facility] Alcohol, Blood (Medical)-Ser umon 05-01-2023 SERUM ETOH 208.0 mg/dL Normal [facility] Comment on above: Result Comment: The serum:whole blood ethanol ratio is approximately 1.14 and varies slightly with hematocrit. Medical Alcohol reference interval and critical value in non-tolerant individuals; 50 - 100 Impairment 100 Intoxication 100 - 250 Severe Poisoning 250 - 400 Deep/possible fatal coma Performed By: #### L 505.5000, L501.9100, L500.4050, L501.5200, L300.3900, L100.0100 ####[facility] [address] [place], [address] Automated lymphocyte count a s percentage of total leukocytesOrdered By: Marcio Cardona on 05-01-2023 Lymphocytes/100 WBC Auto (Unsp spec) 41.9 % 19-41 [facility] Basophil percentageOrdered B y: White on 05-01-2023 Basophil percentage 3.4 mg/dL 2.5-4.9 [facility] Basophil percentageOrdered B y: Marcio Cardona on 05-01-2023 Basophils/100 WBC (Bld) 1.2 % 0-1 [facility] Bilirubin [Mass/Vol] 0.60 mg/dL 0.20-1.00 [facility] Comment on above: For patients on eltr ombopag therapy, use of Dimension Zamora TBIL is not recommended. Chloride [Moles/Vol] 107 mmol/L 98-107 [facility] Eosinophils/100 WBC (Bld) 0.3 % 0-5 [facility] Glucose [Mass/Vol] 130 mg/dL 74-106 [facility] Comment on above: Fasting Glucose resu lt greater than or equal to 126 mg/dL suggests DIABETES MELLITUS per A.D.A. criteria. Hemoglobin (Bld) [Mass/Vol] 18.1 g/dL 13.0-16.5 [facility] Comment on above: CRITICAL VALUE VERIF IED. CALLED TO Lynn SCHRADER05/01/23 0559 Yaneli Villa.RESULTS READ BACK BY SAME. Monocytes/100 WBC (Bld) 6.5 % 0-10 [facility] Neutrophils (Bld) [#/Vol] 4.9 10*3/uL 2.0-7.7 [facility] Neutrophils/100 WBC (Bld) 49.6 % 47-70 [facility] Potassium [Moles/Vol] 3.8 mmol/L 3.5-5.1 [facility] Protein [Mass/Vol] 7.8 g/dL 6.4-8.2 [facility] Sodium [Moles/Vol] 143 mmol/L 136-145 [facility] WBC (Bld) [#/Vol] 9.9 10*3/uL 4.4-11.0 [facility] Blood manual differential co mment interpretation (narrative result)Ordered By: Marcio Cardona on 05-01-2023 Manual differential comment Isacc (Bld) [Interp] SCANNED [facility] Comprehensive Metabolic Prof ilon 05-01-2023 Albumin [Mass/Vol] 4.1 g/dL Normal 3.2-5.0 [facility] Comment on above: Order Comment: Comme nts: may add to ED labs Performed By: #### L 505.5000, L501.9100, L500.4050, L501.5200, L300.3900, L100.0100 ####[facility] [address] [place], [address] Albumin/Globulin [Mass ratio] 1.1 {ratio} Normal 0.9-2.4 [facility] Comment on above: Order Comment: Comme nts: may add to ED labs Performed By: #### L 505.5000, L501.9100, L500.4050, L501.5200, L300.3900, L100.0100 ####[facility] [address] [place], [address] ALK P 92 U/L Normal 45-117 [facility] Comment on above: Order Comment: Comme nts: may add to ED labs Performed By: #### L 505.5000, L501.9100, L500.4050, L501.5200, L300.3900, L100.0100 ####[facility] [address] [place], [address] ALT [Catalytic activity/Vol] 49 U/L Normal 16-61 [facility] Comment on above: Order Comment: Comme nts: may add to ED labs Performed By: #### L 505.5000, L501.9100, L500.4050, L501.5200, L300.3900, L100.0100 ####[facility] [address] [place], [address] AST [Catalytic activity/Vol] 31 U/L Normal 15-37 [facility] Comment on above: Order Comment: Comme nts: may add to ED labs Performed By: #### L 505.5000, L501.9100, L500.4050, L501.5200, L300.3900, L100.0100 ####[facility] [address] [place], [address] Bilirubin [Mass/Vol] 0.60 mg/dL Normal 0.20-1.00 [facility] Comment on above: Order Comment: Comme nts: may add to ED labs Result Comment: For patients on eltrombopag therapy, use of Dimension Zamora TBIL is not recommended. Performed By: #### L 505.5000, L501.9100, L500.4050, L501.5200, L300.3900, L100.0100 ####[facility] [address] [place], [address] BUN/CRE 6.4 RATIO Low 10-20 [facility] Comment on above: Order Comment: Comme nts: may add to ED labs Performed By: #### L 505.5000, L501.9100, L500.4050, L501.5200, L300.3900, L100.0100 ####[facility] [address] [place], [address] CA,Total 8.6 mg/dL Normal 8.5-10.1 [facility] Comment on above: Order Comment: Comme nts: may add to ED labs Performed By: #### L 505.5000, L501.9100, L500.4050, L501.5200, L300.3900, L100.0100 ####[facility] [address] [place], [address] Chloride [Moles/Vol] 107 mmol/L Normal 98-107 [facility] Comment on above: Order Comment: Comme nts: may add to ED labs Performed By: #### L 505.5000, L501.9100, L500.4050, L501.5200, L300.3900, L100.0100 ####[facility] [address] [place], [address] CO2 [Moles/Vol] 26.0 mmol/L Normal 21.0-32.0 [facility] Comment on above: Order Comment: Comme nts: may add to ED labs Performed By: #### L 505.5000, L501.9100, L500.4050, L501.5200, L300.3900, L100.0100 ####[facility] [address] [place], [address] Creatinine [Mass/Vol] 0.94 mg/dL Normal 0.70-1.30 [facility] Comment on above: Order Comment: Comme nts: may add to ED labs Result Comment: The validity of the calculated GFR GFRAA in patients over 70 years has not been determined. Clinical correlation is essential. Performed By: #### L 505.5000, L501.9100, L500.4050, L501.5200, L300.3900, L100.0100 ####[facility] [address] [place], [address] EST GFR - AA 125 mL/min Normal >60 [facility] Comment on above: Order Comment: Comme nts: may add to ED labs Result Comment: Afri can [place] GFR Calc Performed By: #### L 505.5000, L501.9100, L500.4050, L501.5200, L300.3900, L100.0100 ####[facility] [address] [place], [address] GAP 10 Normal 5-15 [facility] Comment on above: Order Comment: Comme nts: may add to ED labs Performed By: #### L 505.5000, L501.9100, L500.4050, L501.5200, L300.3900, L100.0100 ####[facility] [address] [place], [address] GFR/1.73 sq M.predicted among non-blacks MDRD (S/P/Bld) [Vol rate/Area] 103 mL/min/{1.73_m2} Normal >60 [facility] Comment on above: Order Comment: Comme nts: may add to ED labs Result Comment: Non- GFR Calc Performed By: #### L 505.5000, L501.9100, L500.4050, L501.5200, L300.3900, L100.0100 ####[facility] [address] [place], [address] Globulin (S) [Mass/Vol] 3.7 g/dL Normal 2.2-4.2 [facility] Comment on above: Order Comment: Comme nts: may add to ED labs Performed By: #### L 505.5000, L501.9100, L500.4050, L501.5200, L300.3900, L100.0100 ####[facility] [address] [place], [address] Glucose [Mass/Vol] 130 mg/dL High 74-106 [facility] Comment on above: Order Comment: Comme nts: may add to ED labs Result Comment: Fast ing Glucose result greater than or equal to 126 mg/dL suggests DIABETES MELLITUS per A.D.A. criteria. Performed By: #### L 505.5000, L501.9100, L500.4050, L501.5200, L300.3900, L100.0100 ####[facility] [address] [place], [address] Potassium [Moles/Vol] 3.8 mmol/L Normal 3.5-5.1 [facility] Comment on above: Order Comment: Comme nts: may add to ED labs Performed By: #### L 505.5000, L501.9100, L500.4050, L501.5200, L300.3900, L100.0100 ####[facility] [address] [place], [address] Sodium [Moles/Vol] 143 mmol/L Normal 136-145 [facility] Comment on above: Order Comment: Comme nts: may add to ED labs Performed By: #### L 505.5000, L501.9100, L500.4050, L501.5200, L300.3900, L100.0100 ####[facility] [address] [place], [address] T PROT 7.8 g/dL Normal 6.4-8.2 [facility] Comment on above: Order Comment: Comme nts: may add to ED labs Performed By: #### L 505.5000, L501.9100, L500.4050, L501.5200, L300.3900, L100.0100 ####[facility] [address] [place], [address] Urea nitrogen [Mass/Vol] 6 mg/dL Low 7-18 [facility] Comment on above: Order Comment: Comme nts: may add to ED labs Performed By: #### L 505.5000, L501.9100, L500.4050, L501.5200, L300.3900, L100.0100 ####[facility] [address] [place], [address] Determination of erythrocyte mean corpuscular volume (MCV)Ordered By: Marcio Cardona on 05-01-2023 MCV (RBC) [Entitic vol] 93.3 fL 80-94 [facility] Emergency Department Summary on 05-01-2023 Emergency Department Summary [facility] Medical Records Department [address] [place] [address] Emergency Department Summary 05/01/23 MR#: [id number] Acct: [id number] Name: KADE VILLA Rep #: [id number] : 1995 27 From: Marcio Cardona MD PCP: Care Physician,No Primary Status:ADM IN Location: ICU [id number] [facility] History of Present Illness Chief Complaint: ETOH [...] does not intend to do that again. [facility] Medical History (Updated 05/01/23 @ [...] Clinical Impr (more content not included)... Normal [facility] Erythrocyte distribution wid th ratioOrdered By: Marcio Cardona on 05-01-2023 Erythrocyte distribution width (RBC) [Ratio] 12.8 % 11.6-14.6 [facility] Erythrocyte distribution wid th standard deviationOrdered By: Marcio Cardona on 05-01-2023 Erythrocyte distribution width (RBC) [Entitic vol] 44.0 fL 35.1-43.9 [facility] H AND P Exam - Hospitaliston 05-01-2023 H&P Exam - Hospitalist [facility] Medical Records Department [address] [place] [address] H P Exam - Hospitalist 05/01/23 0532 MR#: [id number] Acct: [id number] Name: KADE VILLA Rep #: [id number] : 1995 27 From: Jacquie Beckwith MD PCP: Care Physician,No Primary Status:ADM IN Location: ICU [id number] HPI - General General Date of Admission: 05/01/23 Date of Service: 05/01/23 Chief Complaint: EtOH detoxification request, withdrawal. HPI Narrative The patient is a 27 y/o M w/ PMHx: Chart reported Hx Polysubstance abuse (crack/cocaine and amphetamines) although patient currently denying, Tobacco use, EtOH abuse (Lower proof liquor, wine, 24 beers daily/mix), Anxiety and Depression, Asthma, Chronic migraines who presents to the [facility] ED on 05/01/23 with last EtOH intake [...] administered phenobarbital 97.2 mg p.o. x 1. [facility] Medical History (Updated 05/01/23 @ 05:48 by [...] noted, subjective (more content not included)... Normal [facility] Hematocrit Auto (Bld) [Volum e fraction]Ordered By: Marcio Cardona on 05-01-2023 Hematocrit (Bld) [Volume fraction] 51.3 % 40-54 [facility] Immature granulocytes/100 WB C Auto (Bld)Ordered By: Marcio Cardona on 05-01-2023 Immature granulocytes/100 WBC (Bld) 0.500 % 0.0-0.9 [facility] Comment on above: IG% - Immature Granu locytes (promyelocytes, myelocytes and metamyelocytes) > 1% indicates that a LEFT SHIFT is Present. Laboratory - Chemistry and C hemistry - challengeOrdered By: Marcio Cardona on 05-01-2023 Albumin/Globulin [Mass ratio] 1.1 {ratio} 0.9-2.4 [facility] ALP [Catalytic activity/Vol] 92 U/L 45-117 [facility] ALT [Catalytic activity/Vol] 49 U/L 16-61 [facility] CO2 [Moles/Vol] 26.0 mmol/L 21.0-32.0 [facility] Globulin (S) [Mass/Vol] 3.7 g/dL 2.2-4.2 [facility] Urea nitrogen/Creatinine [Mass ratio] 6.4 mg/mg 10- [facility] Laboratory - Chemistry and C hemistry - challengeOrdered By: Jacquie Beckwith on 05-01-2023 Magnesium [Mass/Vol] 2.1 mg/dL 1.6-2.6 [facility] Laboratory - CoagulationOrde red By: Marcio Cardona on 05-01-2023 INR Coag (Bld) [Relative time] 1.0 {INR} [facility] PT Coag (PPP) [Time] 13.5 s 11.7-14.9 [facility] Laboratory - Drug toxicology Ordered By: Marcio Cardona on 05-01-2023 Amphetamines Ql (U) Negative <1000 ng/mL [facility] Benzodiazepines Ql (U) Negative < 200 ng/mL [facility] Cannabinoids Screen Ql (U) Negative < 50 ng/mL [facility] Cocaine Ql (U) Negative < 300 ng/mL [facility] Opiates Ql (U) Negative < 300 ng/mL [facility] Laboratory - Hematology and Cell countsOrdered By: Marcio Cardona on 05-01-2023 MCH (RBC) [Entitic mass] 32.9 pg 27.0-32.0 [facility] MCHC (RBC) [Mass/Vol] 35.3 g/dL 32-36 [facility] Nucleated RBC/100 WBC (Bld) [Ratio] 0 % 0-5 [facility] Platelet mean volume (Bld) [Entitic vol] 9.1 fL 6.2-12.0 [facility] Platelets (Bld) [#/Vol] 371 10*3/uL 150-450 [facility] Magnesiumon 05-01-2023 Magnesium [Mass/Vol] 2.1 mg/dL Normal 1.6-2.6 [facility] Comment on above: Order Comment: Comme nts: may add to ED labs Performed By: #### L 505.5000, L501.9100, L500.4050, L501.5200, L300.3900, L100.0100 ####[facility] [address] [place], [place], [address] No Panel InformationOrdered By: Marcio Cardona on 05-01-2023 Estimated GFR (MDRD) Amer 125 mL/min >60 [facility] Comment on above: GFR Calc Estimated GFR (MDRD) Non-Af Amer 103 mL/min >60 [facility] Comment on above: Non- GFR Calc Ethyl Alcohol Level 208.0 mg/dL [facility] Comment on above: The serum:whole bloo d ethanol ratio is approximately 1.14and varies slightly with hematocrit. Medical Alcohol reference interval and critical value innon-tolerant individuals; 50 - 100 Impairment 100 Intoxication 100 - 250 Severe Poisoning 250 - 400 Deep/possible fatal coma MDMA (Ecstasy) Screen Negative < 500 ng/mL [facility] Urine Barbiturates Screen Negative < 200 ng/mL [facility] Urine Drug Screen Comment [facility] Comment on above: CONFIRMATORY TESTING FOR [...] Methadone Screen Negative < 300 ng/mL [facility] Phosphoruson 05-01-2023 Phosphate [Mass/Vol] 3.4 mg/dL Normal 2.5-4.9 [facility] Comment on above: Order Comment: Comme nts: May add to ED labs Performed By: #### L 501.2300 ####[facility] [address] [place], [address] Prothrombin Time w/INRon INR Coag (PPP) [Relative time] 1.0 {INR} Normal [facility] Comment on above: Performed By: #### L 505.5000, L501.9100, L500.4050, L501.5200, L300.3900, L100.0100 ####[facility] [address] [place], [address] PT Coag (PPP) [Time] 13.5 s Normal 11.7-14.9 [facility] Comment on above: Performed By: #### L 505.5000, L501.9100, L500.4050, L501.5200, L300.3900, L100.0100 ####[facility] [address] [place], [address] RBC Auto (Bld) [#/Vol]Ordere d By: Marcio Cardona on 05-01-2023 RBC (Bld) [#/Vol] 5.50 10*6/uL 4.6-6.2 [facility] Review by pathologistOrdered By: Marcio Cardona on 05-01-2023 Pathologist review Isacc (Unsp spec) [Interp] Cheryl holland [facility] Pathologist review Isacc (Unsp spec) [Interp] Reviewed [facility] Comment on above: Previous reported re sult: Cheryl holland Edited by: МАРИНА on 05/02/23:0932PolycythemiaClinical correlation necessary.Mahesh Sharma M.D. 05/02/23 AMENDED REPORT 05/02/23 0932 PATH REV previously reported as: Cheryl holland Serum or plasma calcium gaetano urement (mass/volume)Ordered By: Marcio Cardona on 05-01-2023 Calcium [Mass/Vol] 8.6 mg/dL 8.5-10.1 [facility] Serum or plasma creatinine m easurement (mass/volume)Ordered By: Marcio Cardona on 05-01-2023 Creatinine [Mass/Vol] 0.94 mg/dL 0.70-1.30 [facility] Comment on above: The validity of the calculated GFR & GFRAA in patients over 70 years has not been determined. Clinical correlation is essential. Serum or plasma urea nitroge n measurement (mass/volume)Ordered By: Marcio Cardona on 05-01-2023 Urea nitrogen [Mass/Vol] 6 mg/dL 7-18 [facility] Thin prep Papanicolaou smear with manual screeningOrdered By: Marcio Cardona on 05-01-2023 Thin prep Papanicolaou smear with manual screening 4.1 g/dL 3.2-5.0 [facility] Thin prep Papanicolaou smear with manual screening 31 U/L 15-37 [facility] Thin prep Papanicolaou smear with manual screening 10 5-15 [facility] Urine Drug Screen (VISTA)on 05-01-2023 AMPHETAMINES Negative Normal <1000 ng/mL [facility] Comment on above: Performed By: #### L 505.5000, L501.9100, L500.4050, L501.5200, L300.3900, L100.0100 ####[facility] [address] [place], [address] BARBITIURATES Negative Normal < 200 ng/mL [facility] Comment on above: Performed By: #### L 505.5000, L501.9100, L500.4050, L501.5200, L300.3900, L100.0100 ####[facility] [address] [place], [address] BENZODIAZIPINE Negative Normal < 200 ng/mL [facility] Comment on above: Performed By: #### L 505.5000, L501.9100, L500.4050, L501.5200, L300.3900, L100.0100 ####[facility] [address] [place], [address] COCAINE Negative Normal < 300 ng/mL [facility] Comment on above: Performed By: #### L 505.5000, L501.9100, L500.4050, L501.5200, L300.3900, L100.0100 ####[facility] [address] [place], [address] ECSTACY Negative Normal < 500 ng/mL [facility] Comment on above: Performed By: #### L 505.5000, L501.9100, L500.4050, L501.5200, L300.3900, L100.0100 ####[facility] [address] [place] [address] METHADONE Negative Normal < 300 ng/mL [facility] Comment on above: Performed By: #### L 505.5000, L501.9100, L500.4050, L501.5200, L300.3900, L100.0100 ####[facility] [address] [place], [place], [phone] OPIATES Negative Normal < 300 ng/mL [facility] Comment on above: Performed By: #### L 505.5000, L501.9100, L500.4050, L501.5200, L300.3900, L100.0100 ####[facility] [address] [place] [address] PCP Negative Normal < 25 ng/mL [facility] Comment on above: Performed By: #### L 505.5000, L501.9100, L500.4050, L501.5200, L300.3900, L100.0100 ####[facility] [address] [place] [address] THC Negative Normal < 50 ng/mL [facility] Comment on above: Performed By: #### L 505.5000, L501.9100, L500.4050, L501.5200, L300.3900, L100.0100 ####[facility] [address] [place] [address] VISTA UDS PH 7 Normal [facility] Comment on above: Performed By: #### L 505.5000, L501.9100, L500.4050, L501.5200, L300.3900, L100.0100 ####[facility] [address] [place], [address] Urine phencyclidine (PCP) de tectionOrdered By: Marcio Cardona on 05-01-2023 Phencyclidine Ql (U) Negative < 25 ng/mL [facility] Alcohol, Blood (Medical)-Ser umon 03-23-2023 SERUM ETOH 212.0 mg/dL Normal [facility] Comment on above: Result Comment: The serum:whole blood ethanol ratio is approximately 1.14 and varies slightly with hematocrit. Medical Alcohol reference interval and critical value in non-tolerant individuals; 50 - 100 Impairment 100 Intoxication 100 - 250 Severe Poisoning 250 - 400 Deep/possible fatal coma Performed By: #### L 501.9100, L500.4050, L505.5000, L100.0100 #### [facility] [address] [place], [address] Basophil percentageOrdered B y: Jacquie White on 03-23-2023 Basophil percentage 2.9 mg/dL 2.5-4.9 [facility] CBC W/Diff, Automatedon 03-14 0-2023 Absolute Lymph 3.11 X10 3/uL Normal 0.83-4.51 [facility] Comment on above: Performed By: #### L 501.9100, L500.4050, L505.5000, L100.0100 #### [facility] [address] [place], [address] Absolute Neut 5.3 X10 3/uL Normal 2.0-7.7 [facility] Comment on above: Performed By: #### L 501.9100, L500.4050, L505.5000, L100.0100 #### [facility] [address] [place], [address] Basophils/100 WBC (Bld) 0.8 % Normal 0-1 [facility] Comment on above: Performed By: #### L 501.9100, L500.4050, L505.5000, L100.0100 #### [facility] [address] [place], [address] Eosinophils/100 WBC (Bld) 0.1 % Normal 0-5 [facility] Comment on above: Performed By: #### L 501.9100, L500.4050, L505.5000, L100.0100 #### [facility] [address] [place], [address] Erythrocyte distribution width (RBC) [Ratio] 12.4 % Normal 11.6-14.6 [facility] Comment on above: Performed By: #### L 501.9100, L500.4050, L505.5000, L100.0100 #### [facility] [address] [place], [address] Hematocrit (Bld) [Volume fraction] 46.8 % Normal 40-54 [facility] Comment on above: Performed By: #### L 501.9100, L500.4050, L505.5000, L100.0100 #### [facility] [address] [place], [address] Hemoglobin (Bld) [Mass/Vol] 16.8 g/dL High 13.0-16.5 [facility] Comment on above: Performed By: #### L 501.9100, L500.4050, L505.5000, L100.0100 #### [facility] [address] [place], [address] IG% 0.300 Normal 0.0-0.9 [facility] Comment on above: Result Comment: IG% - Immature Granulocytes (promyelocytes, myelocytes and metamyelocytes) > 1% indicates that a LEFT SHIFT is Present. Performed By: #### L 501.9100, L500.4050, L505.5000, L100.0100 #### [facility] [address] [place], [address] Lymphocytes/100 WBC (Bld) 34.2 % Normal 19-41 [facility] Comment on above: Performed By: #### L 501.9100, L500.4050, L505.5000, L100.0100 #### [facility] [address] [place], [address] MCH (RBC) [Entitic mass] 31.8 pg Normal 27.0-32.0 [facility] Comment on above: Performed By: #### L 501.9100, L500.4050, L505.5000, L100.0100 #### [facility] [address] [place], [address] MCHC (RBC) [Mass/Vol] 35.9 g/dL Normal 32-36 [facility] Comment on above: Performed By: #### L 501.9100, L500.4050, L505.5000, L100.0100 #### [facility] [address] [place], [address] MCV (RBC) [Entitic vol] 88.6 fL Normal 80-94 [facility] Comment on above: Performed By: #### L 501.9100, L500.4050, L505.5000, L100.0100 #### [facility] [address] [place], [address] Monocytes/100 WBC (Bld) 6.3 % Normal 0-10 [facility] Comment on above: Performed By: #### L 501.9100, L500.4050, L505.5000, L100.0100 #### [facility] [address] [place], [address] Neutrophils/100 WBC (Bld) 58.3 % Normal 47-70 [facility] Comment on above: Performed By: #### L 501.9100, L500.4050, L505.5000, L100.0100 #### [facility] [address] [place], [address] Nucleated RBC (Bld) [#/Vol] 0 10*3/uL Normal 0-5 [facility] Comment on above: Performed By: #### L 501.9100, L500.4050, L505.5000, L100.0100 #### [facility] [address] [place], [address] Platelet mean volume (Bld) [Entitic vol] 9.2 fL Normal 6.2-12.0 [facility] Comment on above: Performed By: #### L 501.9100, L500.4050, L505.5000, L100.0100 #### [facility] [address] [place], [address] Platelets (Bld) [#/Vol] 367 10*3/uL Normal 150-450 [facility] Comment on above: Performed By: #### L 501.9100, L500.4050, L505.5000, L100.0100 #### [facility] [address] [place], [address] RBC (Bld) [#/Vol] 5.28 10*6/uL Normal 4.6-6.2 [facility] Comment on above: Performed By: #### L 501.9100, L500.4050, L505.5000, L100.0100 #### [facility] [address] [place], [address] RDW SD 40.2 fl Normal 35.1-43.9 [facility] Comment on above: Performed By: #### L 501.9100, L500.4050, L505.5000, L100.0100 #### [facility] [address] [place], [address] WBC (Bld) [#/Vol] 9.1 10*3/uL Normal 4.4-11.0 [facility] Comment on above: Performed By: #### L 501.9100, L500.4050, L505.5000, L100.0100 #### [facility] [address] [place], [address] Comprehensive Metabolic Prof ilon 03-23-2023 Albumin [Mass/Vol] 4.4 g/dL Normal 3.2-5.0 [facility] Comment on above: Performed By: #### L 501.9100, L500.4050, L505.5000, L100.0100 #### [facility] [address] [place], [address] Albumin/Globulin [Mass ratio] 1.2 {ratio} Normal 0.9-2.4 [facility] Comment on above: Performed By: #### L 501.9100, L500.4050, L505.5000, L100.0100 #### [facility] [address] [place], [address] ALK P 105 U/L Normal 45-117 [facility] Comment on above: Performed By: #### L 501.9100, L500.4050, L505.5000, L100.0100 #### [facility] [address] [place], [address] ALT [Catalytic activity/Vol] 27 U/L Normal 16-61 [facility] Comment on above: Performed By: #### L 501.9100, L500.4050, L505.5000, L100.0100 #### [facility] [address] [place], [address] AST [Catalytic activity/Vol] 18 U/L Normal 15-37 [facility] Comment on above: Performed By: #### L 501.9100, L500.4050, L505.5000, L100.0100 #### [facility] [address] [place], [address] Bilirubin [Mass/Vol] 0.70 mg/dL Normal 0.20-1.00 [facility] Comment on above: Result Comment: For patients on eltrombopag therapy, use of Dimension Zamora TBIL is not recommended. Performed By: #### L 501.9100, L500.4050, L505.5000, L100.0100 #### [facility] [address] [place], [address] BUN/CRE 8.1 RATIO Low 10-20 [facility] Comment on above: Performed By: #### L 501.9100, L500.4050, L505.5000, L100.0100 #### [facility] [address] [place], [address] CA,Total 9.1 mg/dL Normal 8.5-10.1 [facility] Comment on above: Performed By: #### L 501.9100, L500.4050, L505.5000, L100.0100 #### [facility] [address] [place], [address] Chloride [Moles/Vol] 108 mmol/L High 98-107 [facility] Comment on above: Performed By: #### L 501.9100, L500.4050, L505.5000, L100.0100 #### [facility] [address] [place], [address] CO2 [Moles/Vol] 25.0 mmol/L Normal 21.0-32.0 [facility] Comment on above: Performed By: #### L 501.9100, L500.4050, L505.5000, L100.0100 #### [facility] [address] [place], [address] Creatinine [Mass/Vol] 0.86 mg/dL Normal 0.70-1.30 [facility] Comment on above: Result Comment: The validity of the calculated GFR GFRAA in patients over 70 years has not been determined. Clinical correlation is essential. Performed By: #### L 501.9100, L500.4050, L505.5000, L100.0100 #### [facility] [address] [place], [address] ECRCL 138.63 ml/min Normal [facility] Comment on above: Performed By: #### L 501.9100, L500.4050, L505.5000, L100.0100 #### [facility] [address] [place], [address] EST GFR - AA 137 mL/min Normal >60 [facility] Comment on above: Result Comment: Afri can [place] GFR Calc Performed By: #### L 501.9100, L500.4050, L505.5000, L100.0100 #### [facility] [address] [place], [address] GAP 7 Normal 5-15 [facility] Comment on above: Performed By: #### L 501.9100, L500.4050, L505.5000, L100.0100 #### [facility] [address] [place], [address] GFR/1.73 sq M.predicted among non-blacks MDRD (S/P/Bld) [Vol rate/Area] 113 mL/min/{1.73_m2} Normal >60 [facility] Comment on above: Result Comment: Non- GFR Calc Performed By: #### L 501.9100, L500.4050, L505.5000, L100.0100 #### [facility] [address] [place], [address] Globulin (S) [Mass/Vol] 3.7 g/dL Normal 2.2-4.2 [facility] Comment on above: Performed By: #### L 501.9100, L500.4050, L505.5000, L100.0100 #### [facility] [address] [place], [address] Glucose [Mass/Vol] 117 mg/dL High 74-106 [facility] Comment on above: Result Comment: Fast ing Glucose result from 100 to 125 mg/dL suggests IMPAIRED HOMEOSTASIS per A.D.A. criteria. Performed By: #### L 501.9100, L500.4050, L505.5000, L100.0100 #### [facility] [address] [place], [address] Potassium [Moles/Vol] 4.0 mmol/L Normal 3.5-5.1 [facility] Comment on above: Performed By: #### L 501.9100, L500.4050, L505.5000, L100.0100 #### [facility] [address] [place], [address] Sodium [Moles/Vol] 140 mmol/L Normal 136-145 [facility] Comment on above: Performed By: #### L 501.9100, L500.4050, L505.5000, L100.0100 #### [facility] [address] [place], [address] T PROT 8.1 g/dL Normal 6.4-8.2 [facility] Comment on above: Performed By: #### L 501.9100, L500.4050, L505.5000, L100.0100 #### [facility] [address] [place], [address] Urea nitrogen [Mass/Vol] 7 mg/dL Normal 7-18 [facility] Comment on above: Performed By: #### L 501.9100, L500.4050, L505.5000, L100.0100 #### [facility] [address] [place], [address] Emergency Department Summary on 03-23-2023 Emergency Department Summary [facility] Medical Records Department [address] [place] [address] Emergency Department Summary 03/22/23 MR#: [id number] Acct: [id number] Name: KADE VILLA Rep #: [id number] 3 : 1995 27 From: Daquan Reid MD PCP: Care Physician,No Primary Status:ADM IN Location: ND3 VT353-[address] Daquan Reid MD on [...] detox last year, then went through [facility] Medical History Alcohol abuse Anxiety [...] discussed with Dr. Thomas for admission to [facility] for detox from alcohol. Patient is in [...] % (Auto) 58.3 Lymph % (Auto) 34.2 Barnes % (Auto) 6.3 Eos % (Auto) 0.1 Baso % (Auto) 0.8 Absolute Neuts (more content not included)... Normal [facility] GGTPon 03-23-2023 GGTP 34 U/L Normal 15-85 [facility] Comment on above: Performed By: #### L 300.3900, L501.5100 ####[facility] [address] [place], [place], [address] H AND P Exam - Hospitaliston 03-23-2023 H&P Exam - Hospitalist [facility] Medical Records Department [address] [facility] [place] [address] H P Exam - Hospitalist 03/23/23 0017 MR#: [id number] Acct: [id number] Name: KADE VILLA Rep #: [id number] 3 : 1995 27 From: Stan Thomas MD PCP: Care Physician,No Primary Status:ADM IN Location: [facility] OF041-5 HPI - General General Date of Admission: [...] including hematemesis melena or alcoholic liver disease [facility] Medical History Alcohol abuse Anxiety Asthma Depression [...] % (Auto) 58.3, Lymph % (Auto) 34.2, Barnes % (Auto) 6.3, Eos % (Auto) 0.1, Baso % (Auto) 0.8, Absolute Neuts (auto) 5.3, Absolute Lymphs (auto) 3.11, Nucleated RBC % 0, Sodium 140, Potassium 4.0, Chloride 108 H, Carbon Dioxide 25.0, Anion Gap 7, BUN 7, Creatinine 0.86, Estim Creat Clear Calc 138.63, Est GFR (MDRD) Af A (more content not included)... Normal [facility] - Chemistry and C hemistry - challengeOrdered By: Jacquie Beckwith on 03-23-2023 Magnesium [Mass/Vol] 2.0 mg/dL 1.6-2.6 [facility] - CoagulationOrde red By: Stan Thomas on 03-23-2023 INR Coag (Bld) [Relative time] 0.9 {INR} [facility] PT Coag (PPP) [Time] 12.2 s 11.7-14.9 [facility] Magnesiumon 03-23-2023 Magnesium [Mass/Vol] 2.0 mg/dL Normal 1.6-2.6 [facility] Comment on above: Order Comment: Comme nts: May add to ED labs Comments: may add to ED labs Performed By: #### L 501.5200, L501.2300 #### [facility] [address] [place], [address] Phosphoruson 03-23-2023 Phosphate [Mass/Vol] 2.9 mg/dL Normal 2.5-4.9 [facility] Comment on above: Order Comment: Comme nts: May add to ED labs Comments: may add to ED labs Performed By: #### L 501.5200, L501.2300 #### [facility] [address] [place], [address] Prothrombin Time w/INRon INR Coag (PPP) [Relative time] 0.9 {INR} Normal [facility] Comment on above: Performed By: #### L 300.3900, L501.5100 ####[facility] [address] [place], [address] PT Coag (PPP) [Time] 12.2 s Normal 11.7-14.9 [facility] Comment on above: Performed By: #### L 300.3900, L501.5100 ####[facility] [address] [place], [address] Urine Drug Screen (VISTA)on 03-23-2023 VISTA UDS PH 6 Normal [facility] Comment on above: Performed By: #### L 501.9100, L500.4050, L505.5000, L100.0100 #### [facility] [address] [place], [address] Absolute lymphocyte countOrd ered By: Daquan Reid on 03-22-2023 Lymphocytes Auto (Unsp spec) [#/Vol] 3.11 10*3/uL 0.83-4.51 [facility] Automated lymphocyte count a s percentage of total leukocytesOrdered By: Daquan Reid on 03-22-2023 Lymphocytes/100 WBC Auto (Unsp spec) 34.2 % 19-41 [facility] Basophil percentageOrdered B y: Daquan Reid on 03-22-2023 Basophils/100 WBC (Bld) 0.8 % 0-1 [facility] Bilirubin [Mass/Vol] 0.70 mg/dL 0.20-1.00 [facility] Comment on above: For patients on eltr ombopag therapy, use of Dimension Zamora TBIL is not recommended. Chloride [Moles/Vol] 108 mmol/L 98-107 [facility] Eosinophils/100 WBC (Bld) 0.1 % 0-5 [facility] Glucose [Mass/Vol] 117 mg/dL 74-106 [facility] Comment on above: Fasting Glucose resu lt from 100 to 125 mg/dL suggests IMPAIRED HOMEOSTASIS per A.D.A. criteria. Hemoglobin (Bld) [Mass/Vol] 16.8 g/dL 13.0-16.5 [facility] Monocytes/100 WBC (Bld) 6.3 % 0-10 [facility] Neutrophils (Bld) [#/Vol] 5.3 10*3/uL 2.0-7.7 [facility] Neutrophils/100 WBC (Bld) 58.3 % 47-70 [facility] Potassium [Moles/Vol] 4.0 mmol/L 3.5-5.1 [facility] Protein [Mass/Vol] 8.1 g/dL 6.4-8.2 [facility] Sodium [Moles/Vol] 140 mmol/L 136-145 [facility] WBC (Bld) [#/Vol] 9.1 10*3/uL 4.4-11.0 [facility] Determination of erythrocyte mean corpuscular volume (MCV)Ordered By: Daquan Reid on 03-22-2023 MCV (RBC) [Entitic vol] 88.6 fL 80-94 [facility] Erythrocyte distribution wid th ratioOrdered By: Daquan Reid on 03-22-2023 Erythrocyte distribution width (RBC) [Ratio] 12.4 % 11.6-14.6 [facility] Erythrocyte distribution wid th standard deviationOrdered By: Daquan Reid on 03-22-2023 Erythrocyte distribution width (RBC) [Entitic vol] 40.2 fL 35.1-43.9 [facility] Hematocrit Auto (Bld) [Volum e fraction]Ordered By: Daquan Reid on 03-22-2023 Hematocrit (Bld) [Volume fraction] 46.8 % 40-54 [facility] Immature granulocytes/100 WB C Auto (Bld)Ordered By: Daquan Reid on 03-22-2023 Immature granulocytes/100 WBC (Bld) 0.300 % 0.0-0.9 [facility] Comment on above: IG% - Immature Granu locytes (promyelocytes, myelocytes and metamyelocytes) > 1% indicates that a LEFT SHIFT is Present. Laboratory - Chemistry and C hemistry - challengeOrdered By: Daquan Reid on 03-22-2023 Albumin/Globulin [Mass ratio] 1.2 {ratio} 0.9-2.4 [facility] ALP [Catalytic activity/Vol] 105 U/L 45-117 [facility] ALT [Catalytic activity/Vol] 27 U/L 16-61 [facility] CO2 [Moles/Vol] 25.0 mmol/L 21.0-32.0 [facility] Globulin (S) [Mass/Vol] 3.7 g/dL 2.2-4.2 [facility] Urea nitrogen/Creatinine [Mass ratio] 8.1 mg/mg 10-20 [facility] Laboratory - Chemistry and C hemistry - challengeOrdered By: Stan Thomas on 03-22-2023 Amylase [Catalytic activity/Vol] 34 U/L 15-85 [facility] - Drug toxicology Ordered By: Daquan Reid on 03-22-2023 Amphetamines Ql (U) Negative <1000 ng/mL [facility] Benzodiazepines Ql (U) Negative < 200 ng/mL [facility] Cannabinoids Screen Ql (U) Negative < 50 ng/mL [facility] Cocaine Ql (U) Negative < 300 ng/mL [facility] Opiates Ql (U) Negative < 300 ng/mL [facility] - Hematology and Cell countsOrdered By: Daquan Reid on 03-22-2023 MCH (RBC) [Entitic mass] 31.8 pg 27.0-32.0 [facility] MCHC (RBC) [Mass/Vol] 35.9 g/dL 32-36 [facility] Nucleated RBC/100 WBC (Bld) [Ratio] 0 % 0-5 [facility] Platelet mean volume (Bld) [Entitic vol] 9.2 fL 6.2-12.0 [facility] Platelets (Bld) [#/Vol] 367 10*3/uL 150-450 [facility] No Panel InformationOrdered By: Daquan Franklin on 03-22-2023 Estimated Creatinine Clearance Calc 138.63 ml/min [facility] Estimated GFR (MDRD) Amer 137 mL/min >60 [facility] Comment on above: GFR Calc Estimated GFR (MDRD) Non-Af Amer 113 mL/min >60 [facility] Comment on above: Non- GFR Calc Ethyl Alcohol Level 212.0 mg/dL [facility] Comment on above: The serum:whole bloo d ethanol ratio is approximately 1.14and varies slightly with hematocrit. Medical Alcohol reference interval and critical value innon-tolerant individuals; 50 - 100 Impairment 100 Intoxication 100 - 250 Severe Poisoning 250 - 400 Deep/possible fatal coma MDMA (Ecstasy) Screen Negative < 500 ng/mL [facility] Urine Barbiturates Screen Negative < 200 ng/mL [facility] Urine Drug Screen Comment See comment [facility] Comment on above: CONFIRMATORY TESTING FOR [...] UTCAPrevious reported result: Edited by: QI on 03/22/23:5499 AMENDED REPORT 03/22/23 1076 TO BE CONFIRMED previously reported as: CONFIRMATORY [...] Methadone Screen Negative < 300 ng/mL [facility] RBC Auto (Bld) [#/Vol]Ordere d By: Daquan Reid on 03-22-2023 RBC (Bld) [#/Vol] 5.28 10*6/uL 4.6-6.2 [facility] Serum or plasma calcium gaetano urement (mass/volume)Ordered By: Daquan Reid on 03-22-2023 Calcium [Mass/Vol] 9.1 mg/dL 8.5-10.1 [facility] Serum or plasma creatinine m easurement (mass/volume)Ordered By: Daquan Reid on 03-22-2023 Creatinine [Mass/Vol] 0.86 mg/dL 0.70-1.30 [facility] Comment on above: The validity of the calculated GFR & GFRAA in patients over 70 years has not been determined. Clinical correlation is essential. Serum or plasma urea nitroge n measurement (mass/volume)Ordered By: Daquan Reid on 03-22-2023 Urea nitrogen [Mass/Vol] 7 mg/dL 7-18 [facility] Thin prep Papanicolaou smear with manual screeningOrdered By: Daquan Reid on 03-22-2023 Thin prep Papanicolaou smear with manual screening 4.4 g/dL 3.2-5.0 [facility] Thin prep Papanicolaou smear with manual screening 18 U/L 15-37 [facility] Thin prep Papanicolaou smear with manual screening 7 5-15 [facility] Urine phencyclidine (PCP) de tectionOrdered By: Daquan Reid on 03-22-2023 Phencyclidine Ql (U) Negative < 25 ng/mL [facility] Discharge Instructionon 06- Discharge Instruction [facility] Medical Records Department [address] [place] [address] Instructions for Home/Discharge Instructions 08/07/22917 MR#: [id number] Acct: [id number] Name: KADE VILLA Rep #: [id number] 4 : 1995 From: Carmelo Albert DO [...] DO; No Primary Care Physician Signed Normal [facility] Absolute lymphocyte countOrd ered By: Vilma Cornelius on 08-05-2022 Lymphocytes Auto (Unsp spec) [#/Vol] 2.36 10*3/uL 0.83-4.51 [facility] Alcohol, Blood (Medical)-Ser umon 08-05-2022 SERUM ETOH 219.0 mg/dL Normal [facility] Comment on above: Result Comment: The serum:whole blood ethanol ratio is approximately 1.14 and varies slightly with hematocrit. Medical Alcohol reference interval and critical value in non-tolerant individuals; 50 - 100 Impairment 100 Intoxication 100 - 250 Severe Poisoning 250 - 400 Deep/possible fatal coma Performed By: #### L 501.9100, L500.2500, L100.0100, L500.3400, L505.5000 ####[facility] [address] [place], [address] Basic Metabolic Profile (BMP )on 08-05-2022 BUN/CRE 10.0 RATIO Normal 10-20 [facility] Comment on above: Performed By: #### L 501.9100, L500.2500, L100.0100, L500.3400, L505.5000 ####[facility] [address] [place], [address] CA,Total 8.2 mg/dL Low 8.5-10.1 [facility] Comment on above: Performed By: #### L 501.9100, L500.2500, L100.0100, L500.3400, L505.5000 ####[facility] [address] [place], [address] Chloride [Moles/Vol] 109 mmol/L High 98-107 [facility] Comment on above: Performed By: #### L 501.9100, L500.2500, L100.0100, L500.3400, L505.5000 ####[facility] [address] [place], [address] CO2 [Moles/Vol] 28.0 mmol/L Normal 21.0-32.0 [facility] Comment on above: Performed By: #### L 501.9100, L500.2500, L100.0100, L500.3400, L505.5000 ####[facility] [address] [place], [address] Creatinine [Mass/Vol] 0.80 mg/dL Normal 0.70-1.30 [facility] Comment on above: Result Comment: The validity of the calculated GFR GFRAA in patients over 70 years has not been determined. Clinical correlation is essential. Performed By: #### L 501.9100, L500.2500, L100.0100, L500.3400, L505.5000 ####[facility] [address] [place], [address] ECRCL 150.34 ml/min Normal [facility] Comment on above: Performed By: #### L 501.9100, L500.2500, L100.0100, L500.3400, L505.5000 ####[facility] [address] [place], [address] EST GFR - AA 151 mL/min Normal >60 [facility] Comment on above: Result Comment: Afri can [place] GFR Calc Performed By: #### L 501.9100, L500.2500, L100.0100, L500.3400, L505.5000 ####[facility] [address] [place], [address] GAP 6 Normal 5-15 [facility] Comment on above: Performed By: #### L 501.9100, L500.2500, L100.0100, L500.3400, L505.5000 ####[facility] [address] [place], [address] GFR/1.73 sq M.predicted among non-blacks MDRD (S/P/Bld) [Vol rate/Area] 125 mL/min/{1.73_m2} Normal >60 [facility] Comment on above: Result Comment: Non- GFR Calc Performed By: #### L 501.9100, L500.2500, L100.0100, L500.3400, L505.5000 ####[facility] [address] [place], [address] Glucose [Mass/Vol] 116 mg/dL High 74-106 [facility] Comment on above: Result Comment: Fast ing Glucose result from 100 to 125 mg/dL suggests IMPAIRED HOMEOSTASIS per A.D.A. criteria. Performed By: #### L 501.9100, L500.2500, L100.0100, L500.3400, L505.5000 ####[facility] [address] [place], [address] Potassium [Moles/Vol] 4.0 mmol/L Normal 3.5-5.1 [facility] Comment on above: Performed By: #### L 501.9100, L500.2500, L100.0100, L500.3400, L505.5000 ####[facility] [address] [place], [address] Sodium [Moles/Vol] 143 mmol/L Normal 136-145 [facility] Comment on above: Performed By: #### L 501.9100, L500.2500, L100.0100, L500.3400, L505.5000 ####[facility] [address] [place], [address] Urea nitrogen [Mass/Vol] 8 mg/dL Normal 7-18 [facility] Comment on above: Performed By: #### L 501.9100, L500.2500, L100.0100, L500.3400, L505.5000 ####[facility] [address] [place], [address] Basophil percentageOrdered B y: Vilma Cornelius on 08-05-2022 Basophils/100 WBC (Bld) 1.0 % 0-1 [facility] Bilirubin [Mass/Vol] 0.70 mg/dL 0.20-1.00 [facility] Comment on above: For patients on eltr ombopag therapy, use of Dimension Zamora TBIL is not recommended. Chloride [Moles/Vol] 109 mmol/L 98-107 [facility] Eosinophils/100 WBC (Bld) 0.3 % 0-5 [facility] Glucose [Mass/Vol] 116 mg/dL 74-106 [facility] Comment on above: Fasting Glucose resu lt from 100 to 125 mg/dL suggests IMPAIRED HOMEOSTASIS per A.D.A. criteria. Neutrophils (Bld) [#/Vol] 4.0 10*3/uL 2.0-7.7 [facility] Neutrophils/100 WBC (Bld) 56.8 % 47-70 [facility] Potassium [Moles/Vol] 4.0 mmol/L 3.5-5.1 [facility] Protein [Mass/Vol] 6.4 g/dL 6.4-8.2 [facility] Sodium [Moles/Vol] 143 mmol/L 136-145 [facility] WBC (Bld) [#/Vol] 7.1 10*3/uL 4.4-11.0 [facility] Blood erythrocytes count (nu mber/volume)Ordered By: Vilma Cornelius on 08-05-2022 RBC (Bld) [#/Vol] 4.56 10*6/uL 4.6-6.2 [facility] Blood hemoglobin measurement (mass/volume)Ordered By: Vilma Cornelius on 08-05-2022 Hemoglobin (Bld) [Mass/Vol] 14.6 g/dL 13.0-16.5 [facility] Blood lymphocytes/100 leukoc ytesOrdered By: Vilma Cornelius on 08-05-2022 Lymphocytes/100 WBC (Bld) 33.2 % 19-41 [facility] Blood monocytes/100 leukocyt esOrdered By: Vilma Cornelius on 08-05-2022 Monocytes/100 WBC (Bld) 8.3 % 0-10 [facility] Blood platelet mean volumeOr dered By: Vilma Cornelius on 08-05-2022 Platelet mean volume (Bld) [Entitic vol] 9.1 fL 6.2-12.0 [facility] CBC W/Diff, Automatedon - Absolute Lymph 2.36 X10 3/uL Normal 0.83-4.51 [facility] Comment on above: Performed By: #### L 501.9100, L500.2500, L100.0100, L500.3400, L505.5000 ####[facility] [address] [place], [address] Absolute Neut 4.0 X10 3/uL Normal 2.0-7.7 [facility] Comment on above: Performed By: #### L 501.9100, L500.2500, L100.0100, L500.3400, L505.5000 ####[facility] [address] [place], [address] Basophils/100 WBC (Bld) 1.0 % Normal 0-1 [facility] Comment on above: Performed By: #### L 501.9100, L500.2500, L100.0100, L500.3400, L505.5000 ####[facility] [address] [place], [address] Eosinophils/100 WBC (Bld) 0.3 % Normal 0-5 [facility] Comment on above: Performed By: #### L 501.9100, L500.2500, L100.0100, L500.3400, L505.5000 ####[facility] [address] [place], [address] Erythrocyte distribution width (RBC) [Ratio] 11.6 % Normal 11.6-14.6 [facility] Comment on above: Performed By: #### L 501.9100, L500.2500, L100.0100, L500.3400, L505.5000 ####[facility] [address] [place], [address] Hematocrit (Bld) [Volume fraction] 41.3 % Normal 40-54 [facility] Comment on above: Performed By: #### L 501.9100, L500.2500, L100.0100, L500.3400, L505.5000 ####[facility] [address] [place], [address] Hemoglobin (Bld) [Mass/Vol] 14.6 g/dL Normal 13.0-16.5 [facility] Comment on above: Performed By: #### L 501.9100, L500.2500, L100.0100, L500.3400, L505.5000 ####[facility] [address] [place], [address] IG% 0.400 Normal 0.0-0.9 [facility] Comment on above: Result Comment: IG% - Immature Granulocytes (promyelocytes, myelocytes and metamyelocytes) > 1% indicates that a LEFT SHIFT is Present. Performed By: #### L 501.9100, L500.2500, L100.0100, L500.3400, L505.5000 ####[facility] [address] [place], [address] Lymphocytes/100 WBC (Bld) 33.2 % Normal 19-41 [facility] Comment on above: Performed By: #### L 501.9100, L500.2500, L100.0100, L500.3400, L505.5000 ####[facility] [address] [place], [address] MCH (RBC) [Entitic mass] 32.0 pg Normal 27.0-32.0 [facility] Comment on above: Performed By: #### L 501.9100, L500.2500, L100.0100, L500.3400, L505.5000 ####[facility] [address] [place], [address] MCHC (RBC) [Mass/Vol] 35.4 g/dL Normal 32-36 [facility] Comment on above: Performed By: #### L 501.9100, L500.2500, L100.0100, L500.3400, L505.5000 ####[facility] [address] [place], [address] MCV (RBC) [Entitic vol] 90.6 fL Normal 80-94 [facility] Comment on above: Performed By: #### L 501.9100, L500.2500, L100.0100, L500.3400, L505.5000 ####[facility] [address] [place], [address] Monocytes/100 WBC (Bld) 8.3 % Normal 0-10 [facility] Comment on above: Performed By: #### L 501.9100, L500.2500, L100.0100, L500.3400, L505.5000 ####[facility] [address] [place], [address] Neutrophils/100 WBC (Bld) 56.8 % Normal 47-70 [facility] Comment on above: Performed By: #### L 501.9100, L500.2500, L100.0100, L500.3400, L505.5000 ####[facility] [address] [place], [address] Nucleated RBC (Bld) [#/Vol] 0 10*3/uL Normal 0-5 [facility] Comment on above: Performed By: #### L 501.9100, L500.2500, L100.0100, L500.3400, L505.5000 ####[facility] [address] [place], [address] Platelet mean volume (Bld) [Entitic vol] 9.1 fL Normal 6.2-12.0 [facility] Comment on above: Performed By: #### L 501.9100, L500.2500, L100.0100, L500.3400, L505.5000 ####[facility] [address] [place], [address] Platelets (Bld) [#/Vol] 249 10*3/uL Normal 150-450 [facility] Comment on above: Performed By: #### L 501.9100, L500.2500, L100.0100, L500.3400, L505.5000 ####[facility] [address] [place], [address] RBC (Bld) [#/Vol] 4.56 10*6/uL Low 4.6-6.2 [facility] Comment on above: Performed By: #### L 501.9100, L500.2500, L100.0100, L500.3400, L505.5000 ####[facility] [address] [place], [address] RDW SD 38.1 fl Normal 35.1-43.9 [facility] Comment on above: Performed By: #### L 501.9100, L500.2500, L100.0100, L500.3400, L505.5000 ####[facility] [address] [place], [address] WBC (Bld) [#/Vol] 7.1 10*3/uL Normal 4.4-11.0 [facility] Comment on above: Performed By: #### L 501.9100, L500.2500, L100.0100, L500.3400, L505.5000 ####[facility] [address] [place], [address] Determination of erythrocyte mean corpuscular volume (MCV)Ordered By: Vilma Cornelius on 08-05-2022 MCV (RBC) [Entitic vol] 90.6 fL 80-94 [facility] Direct bilirubinOrdered By: Vilma Cornelius on 08-05-2022 Bilirubin.direct [Mass/Vol] 0.19 mg/dL 0.00-0.30 [facility] Emergency Department Summary on 08-05-2022 Emergency Department Summary [facility] Medical Records Department [address] [place] [address] Emergency Department Summary 08/05/22 MR#: [id number] Acct: [id number] Name: KADE VILLA Rep #: [id number] 3 : 1995 26 From: Vilma CAMPA PCP: Care Physician,No Primary Status:ADM IN Location: [place] [address] HPI History of Present Illness Chief Complaint: [...] but denies history of seizures or DTs. [facility] Medical History (Updated 08/05/22 @ [...] % (Auto) 56.8 Lymph % (Auto) 33.2 Barnes % (Auto) 8.3 Eos % (Auto) 0.3 [...] (Auto) Neut % (Auto) Lymph % (Auto) Barnes % (Auto) Eos % (Auto) Baso % (Auto) Absolute Neuts (auto) Absolute Lymphs (auto) Nucleated RBC % Sodium Potassium Chloride Carbon Dioxide Anion Gap BUN Creatinine Estim Creat Clear Calc Est GFR (MDRD) Af Amer Est GFR (MDRD) Non-Af BUN/Creatinine Ratio Glucose Calcium Total Bilirubin Direct Bilirubin AST ALT Alkaline (more content not included)... 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 [...] discharge is for readmission into inpatient rehab. [facility] Medical History No acute medical problems Polysubstance [...] habitus, heal (more content not included)... Normal [facility] Hematocrit Auto (Bld) [Volum e fraction]Ordered By: Vilma Cornelius on 08-05-2022 Hematocrit (Bld) [Volume fraction] 41.3 % 40-54 [facility] Laboratory - Chemistry and C hemistry - challengeOrdered By: Vilma Cornelius on 08-05-2022 ALP [Catalytic activity/Vol] 73 U/L 45-117 [facility] ALT [Catalytic activity/Vol] 24 U/L 16-61 [facility] CO2 [Moles/Vol] 28.0 mmol/L 21.0-32.0 [facility] Globulin (S) [Mass/Vol] 2.9 g/dL 2.2-4.2 [facility] Urea nitrogen/Creatinine [Mass ratio] 10.0 mg/mg 10-20 [facility] Laboratory - Drug toxicology Ordered By: Vilma Cornelius on 08-05-2022 Amphetamines Ql (U) Negative <1000 ng/mL [facility] Benzodiazepines Ql (U) Negative < 200 ng/mL [facility] Cannabinoids Screen Ql (U) Negative < 50 ng/mL [facility] Cocaine Ql (U) Positive < 300 ng/mL [facility] Opiates Ql (U) Negative < 300 ng/mL [facility] Laboratory - Hematology and Cell countsOrdered By: Vilma Cornelius on 08-05-2022 Erythrocyte distribution width (RBC) [Entitic vol] 38.1 fL 35.1-43.9 [facility] Erythrocyte distribution width (RBC) [Ratio] 11.6 % 11.6-14.6 [facility] Immature granulocytes/100 WBC (Bld) 0.400 % 0.0-0.9 [facility] Comment on above: IG% - Immature Granu locytes (promyelocytes, myelocytes and metamyelocytes) > 1% indicates that a LEFT SHIFT is Present. MCH (RBC) [Entitic mass] 32.0 pg 27.0-32.0 [facility] Nucleated RBC/100 WBC (Bld) [Ratio] 0 % 0-5 [facility] Liver Profileon 08-05-2022 Albumin [Mass/Vol] 3.5 g/dL Normal 3.2-5.0 [facility] Comment on above: Performed By: #### L 501.9100, L500.2500, L100.0100, L500.3400, L505.5000 ####[facility] [address] [place], [address] ALK P 73 U/L Normal 45-117 [facility] Comment on above: Performed By: #### L 501.9100, L500.2500, L100.0100, L500.3400, L505.5000 ####[facility] [address] [place], [address] ALT [Catalytic activity/Vol] 24 U/L Normal 16-61 [facility] Comment on above: Performed By: #### L 501.9100, L500.2500, L100.0100, L500.3400, L505.5000 ####[facility] [address] [place], [address] AST [Catalytic activity/Vol] 17 U/L Normal 15-37 [facility] Comment on above: Performed By: #### L 501.9100, L500.2500, L100.0100, L500.3400, L505.5000 ####[facility] [address] [place], [address] Bilirubin [Mass/Vol] 0.70 mg/dL Normal 0.20-1.00 [facility] Comment on above: Result Comment: For patients on eltrombopag therapy, use of Dimension Zamora TBIL is not recommended. Performed By: #### L 501.9100, L500.2500, L100.0100, L500.3400, L505.5000 ####[facility] [address] [place], [address] Bilirubin.direct [Mass/Vol] 0.19 mg/dL Normal 0.00-0.30 [facility] Comment on above: Performed By: #### L 501.9100, L500.2500, L100.0100, L500.3400, L505.5000 ####[facility] [address] [place], [address] Globulin (S) [Mass/Vol] 2.9 g/dL Normal 2.2-4.2 [facility] Comment on above: Performed By: #### L 501.9100, L500.2500, L100.0100, L500.3400, L505.5000 ####[facility] [address] [place], [address] T PROT 6.4 g/dL Normal 6.4-8.2 [facility] Comment on above: Performed By: #### L 501.9100, L500.2500, L100.0100, L500.3400, L505.5000 ####[facility] [address] [place], [address] MCHC Auto (RBC) [Mass/Vol]Or dered By: Vilma Cornelius on 08-05-2022 MCHC (RBC) [Mass/Vol] 35.4 g/dL 32-36 [facility] No Panel InformationOrdered By: Vilma Cornelius on 08-05-2022 MDMA (Ecstasy) Screen Negative < 500 ng/mL [facility] Urine Barbiturates Screen Negative < 200 ng/mL [facility] Urine Drug Screen Comment [facility] Comment on above: CONFIRMATORY TESTING FOR [...] Screen Negative < 300 ng/mL [facility] Estimated Creatinine Clearance Calc 150.34 ml/min [facility] Estimated GFR (MDRD) Amer 151 mL/min >60 [facility] Comment on above: GFR Calc Estimated GFR (MDRD) Non-Af Amer 125 mL/min >60 [facility] Comment on above: Non- GFR Calc Ethyl Alcohol Level 219.0 mg/dL [facility] Comment on above: The serum:whole bloo d ethanol ratio is approximately 1.14and varies slightly with hematocrit. Medical Alcohol reference interval and critical value innon-tolerant individuals; 50 - 100 Impairment 100 Intoxication 100 - 250 Severe Poisoning 250 - 400 Deep/possible fatal coma Platelets bldOrdered By: Geraldine Cornelius on 08-05-2022 Platelets (Bld) [#/Vol] 249 10*3/uL 150-450 [facility] Serum or plasma albumin gaetano urement (mass/volume)Ordered By: Vilma Cornelius on 08-05-2022 Albumin [Mass/Vol] 3.5 g/dL 3.2-5.0 [facility] Serum or plasma calcium gaetano urement (mass/volume)Ordered By: Vilma Cornelius on 08-05-2022 Calcium [Mass/Vol] 8.2 mg/dL 8.5-10.1 [facility] Serum or plasma creatinine m easurement (mass/volume)Ordered By: Vilma Cornelius on 08-05-2022 Creatinine [Mass/Vol] 0.80 mg/dL 0.70-1.30 [facility] Comment on above: The validity of the calculated GFR & GFRAA in patients over 70 years has not been determined. Clinical correlation is essential. Serum or plasma urea nitroge n measurement (mass/volume)Ordered By: Vilma Cornelius on 08-05-2022 Urea nitrogen [Mass/Vol] 8 mg/dL 7-18 [facility] Thin prep Papanicolaou smear with manual screeningOrdered By: Vilma Cornelius on 08-05-2022 Thin prep Papanicolaou smear with manual screening 17 U/L 15-37 [facility] Thin prep Papanicolaou smear with manual screening 6 5-15 [facility] Urine Drug Screen (VISTA)on 08-05-2022 AMPHETAMINES Negative Normal <1000 ng/mL [facility] Comment on above: Performed By: #### L 501.9100, L500.2500, L100.0100, L500.3400, L505.5000 ####[facility] [address] [place] [address] BARBITIURATES Negative Normal < 200 ng/mL [facility] Comment on above: Performed By: #### L 501.9100, L500.2500, L100.0100, L500.3400, L505.5000 ####[facility] [address] [place] [address] BENZODIAZIPINE Negative Normal < 200 ng/mL [facility] Comment on above: Performed By: #### L 501.9100, L500.2500, L100.0100, L500.3400, L505.5000 ####[facility] [address] [place] [address] COCAINE Positive Abnormal < 300 ng/mL [facility] Comment on above: Performed By: #### L 501.9100, L500.2500, L100.0100, L500.3400, L505.5000 ####[facility] [address] [place] [address] ECSTACY Negative Normal < 500 ng/mL [facility] Comment on above: Performed By: #### L 501.9100, L500.2500, L100.0100, L500.3400, L505.5000 ####[facility] [address] [place] [address] METHADONE Negative Normal < 300 ng/mL [facility] Comment on above: Performed By: #### L 501.9100, L500.2500, L100.0100, L500.3400, L505.5000 ####[facility] [address] [place] [address] OPIATES Negative Normal < 300 ng/mL [facility] Comment on above: Performed By: #### L 501.9100, L500.2500, L100.0100, L500.3400, L505.5000 ####[facility] [address] [place], [address] PCP Negative Normal < 25 ng/mL [facility] Comment on above: Performed By: #### L 501.9100, L500.2500, L100.0100, L500.3400, L505.5000 ####[facility] [address] [place], [address] THC Negative Normal < 50 ng/mL [facility] Comment on above: Performed By: #### L 501.9100, L500.2500, L100.0100, L500.3400, L505.5000 ####[facility] [address] [place], [address] VISTA UDS PH 7 Normal [facility] Comment on above: Performed By: #### L 501.9100, L500.2500, L100.0100, L500.3400, L505.5000 ####[facility] [address] [place], [address] Urine phencyclidine (PCP) de tectionOrdered By: Vilma Cornelius on 08-05-2022 Phencyclidine Ql (U) Negative < 25 ng/mL [facility] Vital Signs Date Time Vital Sign Value Performing Clinician Facility 10-02-2024 04:06-0400 Body height 180.34 cm No Primary Care Physician [facility] 10-02-2024 04:06-0400 Body mass index (BMI) [Ratio] 25.4 kg/m2 No Primary Care Physician [facility] 10-02-2024 04:06-0400 Body temperature 98.4 [degF] No Primary Care Physician [facility] 10-02-2024 04:06-0400 Body weight 83 kg No Primary Care Physician [facility] 10-02-2024 04:06-0400 Diastolic blood pressure 92 mm[Hg] No Primary Care Physician [facility] 10-02-2024 04:06-0400 Heart rate 97 /min No Primary Care Physician [facility] 10-02-2024 04:06-0400 Respiratory rate 18 /min No Primary Care Physician [facility] 10-02-2024 04:06-0400 SaO2% (BldA) [Mass fraction] 99 % No Primary Care Physician [facility] 10-02-2024 04:06-0400 Systolic blood pressure 144 mm[Hg] No Primary Care Physician [facility] 10-01-2024 14:00-0400 Body temperature 97.6 [degF] No Primary Care Physician [facility] 10-01-2024 14:00-0400 Diastolic blood pressure 73 mm[Hg] No Primary Care Physician [facility] 10-01-2024 14:00-0400 Heart rate 54 /min No Primary Care Physician [facility] 10-01-2024 14:00-0400 Respiratory rate 12 /min No Primary Care Physician [facility] 10-01-2024 14:00-0400 SaO2% (BldA) [Mass fraction] 98 % No Primary Care Physician [facility] 10-01-2024 14:00-0400 Systolic blood pressure 131 mm[Hg] No Primary Care Physician [facility] 10-01-2024 10:00-0400 Inhaled oxygen flow rate 99 L/min No Primary Care Physician [facility] 10-01-2024 01:52-0400 Body height 180.34 cm No Primary Care Physician [facility] 10-01-2024 01:52-0400 Body mass index (BMI) [Ratio] 25.7 kg/m2 No Primary Care Physician [facility] 10-01-2024 01:52-0400 Body weight 83.46 kg No Primary Care Physician [facility] 06-11-2024 07:27-0400 Diastolic blood pressure 83 mm[Hg] [facility] 06-11-2024 07:27-0400 Heart rate 80 /min [facility] 06-11-2024 07:27-0400 Respiratory rate 18 /min [facility] 06-11-2024 07:27-0400 SaO2% (BldA) [Mass fraction] 98 % [facility] 06-11-2024 07:27-0400 Systolic blood pressure 126 mm[Hg] [facility] 06-11-2024 04:18-0400 Body temperature 97.3 [degF] [facility] 06-11-2024 04:14-0400 Body height 180.[address] [facility] 06-11-2024 04:14-0400 Body mass index (BMI) [Ratio] 24.55 kg/m2 [facility] 06-11-2024 04:14-0400 Body weight 79.[address] [facility] 06-10-2024 22:29-0400 Body height 180.[address] [facility] 06-10-2024 22:29-0400 Body mass index (BMI) [Ratio] 24.55 kg/m2 [facility] 06-10-2024 22:29-0400 Body weight 79.[address] [facility] 06-10-2024 22:26-0400 Body temperature 96.3 [degF] [facility] 06-10-2024 22:26-0400 Diastolic blood pressure 96 mm[Hg] [facility] 06-10-2024 22:26-0400 Heart rate 108 /min [facility] 06-10-2024 22:26-0400 Respiratory rate 16 /min [facility] 06-10-2024 22:26-0400 SaO2% (BldA) [Mass fraction] 97 % [facility] 06-10-2024 22:26-0400 Systolic blood pressure 144 mm[Hg] [facility] 01-28-2024 13:37-0500 Body height 180.3 cm Christy Shital SE[employer] MILL SUPERINTENDENT - MGMT ANALYST Work Phone: [facility] 01-28-2024 13:37-0500 Body mass index (BMI) [Ratio] 27.06 kg/m2 Christy Shital SEED MILL SUPERINTENDENT - MGMT ANALYST Work Phone: [facility] 01-28-2024 13:37-0500 Body temperature 98.4 [degF] Christy Shital SEED MILL SUPERINTENDENT - MGMT ANALYST Work Phone: [facility] 01-28-2024 13:37-0500 Body weight 88 kg Christy Shital SEED MILL SUPERINTENDENT - MGMT ANALYST Work Phone: [facility] 01-28-2024 13:37-0500 Diastolic blood pressure 75 mm[Hg] Christy Shital SEED MILL SUPERINTENDENT - MGMT ANALYST Work Phone: [facility] 01-28-2024 13:37-0500 Heart rate 90 /min Christy Shital SEED MILL SUPERINTENDENT - MGMT ANALYST Work Phone: [facility] 01-28-2024 13:37-0500 Respiratory rate 17 /min Christy Shital SEED MILL SUPERINTENDENT - MGMT ANALYST Work Phone: [facility] 01-28-2024 13:37-0500 SaO2% (BldA) [Mass fraction] 98 % Christy Shital SEED MILL SUPERINTENDENT - MGMT ANALYST Work Phone: [facility] 01-28-2024 13:37-0500 Systolic blood pressure 117 mm[Hg] Christy Shital SEED MILL SUPERINTENDENT - MGMT ANALYST Work Phone: [facility] 06-20-2023 19:15-0400 Body temperature 97.88 [degF] OLIVIER VASQUES SEED MILL SUPERINTENDENT-MANAGER [employer]IL [facility] 06-20-2023 19:15-0400 Diastolic Blood Pressure Non-Invasive 90 mm[Hg] OLIVIER VASQUES SEED MILL SUPERINTENDENT-MANAGER [employer]IL [facility] 06-20-2023 19:15-0400 Heart rate 87 /min OLIVIER VASQUES SE[employer] SUPERINTENDENT-MANAGER [employer] 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 06-20-2023 17:05-0400 Heart rate 93 /min OLIVIER VASQUES SEED MILL SUPERINTENDENT-MANAGER RA[employer] 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 06-20-2023 17:05-0400 Respiratory rate 14 /min OLIVIER VASQUES SE[employer] MILL SUPERINTENDENT-MANAGER [employer] [facility] 06-20-2023 17:05-0400 Systolic Blood Pressure Non-Invasive 134 mm[Hg] OLIVIER VASQUES SEED MILL SUPERINTENDENT-MANAGER RAIL [facility] 06-20-2023 14:30-0400 Diastolic Blood Pressure Non-Invasive 93 mm[Hg] OLIVIER VASQUES SE[employer] MILL SUPERINTENDENT-MANAGER RAIL [facility] 06-20-2023 14:30-0400 Systolic Blood Pressure Non-Invasive 138 mm[Hg] OLIVIER VASQUES SEED MILL SUPERINTENDENT-MANAGER RAIL [facility] 06-20-2023 14:24-0400 Body temperature 97.52 [degF] OLIVIER VASQUES SE[employer] MILL SUPERINTENDENT-MANAGER RAIL [facility] 06-20-2023 14:24-0400 Heart rate 80 /min OLIVIER VASQUES SE[employer] MILL SUPERINTENDENT-MANAGER [employer] [facility] 06-20-2023 14:24-0400 Reason For Taking VItal Signs OILVIER VASQUES SEED MILL SUPERINTENDENT-MANAGER RAIL [facility] 06-20-2023 14:24-0400 Respiratory rate 14 /min OLIVIER VASQUES SEED MILL SUPERINTENDENT-MANAGER RA[employer] [facility] 06-20-2023 05:41-0400 Body height 180.3 cm OLIVIER LAYO SE[employer] MILL SUPERINTENDENT-MANAGER RA[employer] [facility] 06-20-2023 05:41-0400 Body weight 95.3 kg OLIVIER LAYO SE[employer] M[employer] SUPERINTENDENT-MANAGER RA[employer] [facility] 06-20-2023 05:41-0400 Body weight 29.32 kg/m2 OLIVIER LAYO SE[employer] MILL SUPERINTENDENT-MANAGER RA[employer] [facility] 06-20-2023 05:35-0400 Blood Pressure Location OLIVIER VASQUES SE[employer] MILL SUPERINTENDENT-MANAGER [facility] [facility] 06-20-2023 04:49-0400 Blood Pressure Location OLIVIER VASQUES SE[employer] MILL SUPERINTENDENT-MANAGER RA[employer] [facility] 06-20-2023 04:49-0400 Blood Pressure Method OLIVIER VASQUES SE[employer] MILL SUPERINTENDENT-MANAGER RA[employer] [facility] 06-20-2023 04:49-0400 Heart rate 80 /min OLIVIER VASQUES SE[employer] MILL SUPERINTENDENT-MANAGER RAIL [facility] 06-20-2023 04:18-0400 Blood Pressure Location OLIVIER LAYO SE[employer] MILL SUPERINTENDENT-MANAGER RA[employer] [facility] 06-20-2023 04:18-0400 Blood Pressure Method OLIVIER VASQUES SE[employer] MILL SUPERINTENDENT-MANAGER RAIL [facility] 06-20-2023 04:18-0400 Heart rate 87 /min OLIVIER VASQUES SE[employer] MILL SUPERINTENDENT-MANAGER RA[employer] [facility] 06-20-2023 03:04-0400 Blood Pressure Method OLIVIER VASQUES SE[employer] MILL SUPERINTENDENT-MANAGER [facility] [facility] 06-20-2023 03:04-0400 Heart rate 107 /min OLIVIER VASQUES SE[employer] MILL SUPERINTENDENT-MANAGER RA[employer] [facility] 06-20-2023 02:15-0400 Body height 180.3 cm OLIVIER VASQUES SE[employer] MILL SUPERINTENDENT-MANAGER RA[employer] [facility] 06-20-2023 02:15-0400 Body weight 95 kg OLIVIER VASQUES SE[employer] MILL SUPERINTENDENT-MANAGER RA[employer] [facility] 06-20-2023 00:48-0400 Body temperature 97.4 [degF] No Primary Care Physician [facility] 06-20-2023 00:48-0400 Diastolic blood pressure 85 mm[Hg] No Primary Care Physician [facility] 06-20-2023 00:48-0400 Heart rate 68 /min No Primary Care Physician [facility] 06-20-2023 00:48-0400 Respiratory rate 16 /min No Primary Care Physician [facility] 06-20-2023 00:48-0400 SaO2% (BldA) [Mass fraction] 100 % No Primary Care Physician [facility] 06-20-2023 00:48-0400 Systolic blood pressure 151 mm[Hg] No Primary Care Physician [facility] 06-19-2023 20:58-0400 Body height 180.34 cm No Primary Care Physician [facility] 06-19-2023 20:58-0400 Body mass index (BMI) [Ratio] 29 kg/m2 No Primary Care Physician [facility] 06-19-2023 20:58-0400 Body weight 94.46 kg No Primary Care Physician [facility] 05-01-2023 13:42-0400 Body temperature 97.4 [degF] No Primary Care Physician [facility] 05-01-2023 13:42-0400 Diastolic blood pressure 78 mm[Hg] No Primary Care Physician [facility] 05-01-2023 13:42-0400 Heart rate 55 /min No Primary Care Physician [facility] 05-01-2023 13:42-0400 Respiratory rate 17 /min No Primary Care Physician [facility] 05-01-2023 13:42-0400 SaO2% (BldA) [Mass fraction] 98 % No Primary Care Physician [facility] 05-01-2023 13:42-0400 Systolic blood pressure 138 mm[Hg] No Primary Care Physician [facility] 05-01-2023 06:45-0400 Body height 180.34 cm No Primary Care Physician [facility] 05-01-2023 06:45-0400 Body mass index (BMI) [Ratio] 28 kg/m2 No Primary Care Physician [facility] 05-01-2023 06:45-0400 Body weight 91.4 kg No Primary Care Physician [facility] 05-01-2023 05:52-0400 Body temperature 97.1 [degF] No Primary Care Physician [facility] 05-01-2023 05:52-0400 Diastolic blood pressure 84 mm[Hg] No Primary Care Physician [facility] 05-01-2023 05:52-0400 Heart rate 96 /min No Primary Care Physician [facility] 05-01-2023 05:52-0400 Respiratory rate 14 /min No Primary Care Physician [facility] 05-01-2023 05:52-0400 SaO2% (BldA) [Mass fraction] 99 % No Primary Care Physician [facility] 05-01-2023 05:52-0400 Systolic blood pressure 124 mm[Hg] No Primary Care Physician [facility] 05-01-2023 05:05-0400 Body height 180.34 cm No Primary Care Physician [facility] 03-23-2023 10:40-0500 Body temperature 98.3 [degF] No Primary Care Physician [facility] 03-23-2023 10:40-0500 Diastolic blood pressure 84 mm[Hg] No Primary Care Physician [facility] 03-23-2023 10:40-0500 Heart rate 87 /min No Primary Care Physician [facility] 03-23-2023 10:40-0500 Respiratory rate 16 /min No Primary Care Physician [facility] 03-23-2023 10:40-0500 SaO2% (BldA) [Mass fraction] 96 % No Primary Care Physician [facility] 03-23-2023 10:40-0500 Systolic blood pressure 133 mm[Hg] No Primary Care Physician [facility] 03-23-2023 05:34-0500 Body temperature 98.3 [degF] No Primary Care Physician [facility] 03-23-2023 05:34-0500 Diastolic blood pressure 58 mm[Hg] No Primary Care Physician [facility] 03-23-2023 05:34-0500 Heart rate 86 /min No Primary Care Physician [facility] 03-23-2023 05:34-0500 Respiratory rate 17 /min No Primary Care Physician [facility] 03-23-2023 05:34-0500 SaO2% (BldA) [Mass fraction] 98 % No Primary Care Physician [facility] 03-23-2023 05:34-0500 Systolic blood pressure 113 mm[Hg] No Primary Care Physician [facility] 03-23-2023 01:01-0500 Body height 180.34 cm No Primary Care Physician [facility] 03-23-2023 01:01-0500 Body mass index (BMI) [Ratio] 27.6 kg/m2 No Primary Care Physician [facility] 03-23-2023 01:01-0500 Body weight 89.81 kg No Primary Care Physician [facility] 03-22-2023 22:04-0500 Body height 180.34 cm No Primary Care Physician [facility] 03-22-2023 22:04-0500 Body mass index (BMI) [Ratio] 27.6 kg/m2 No Primary Care Physician [facility] 03-22-2023 22:04-0500 Body temperature 97.5 [degF] No Primary Care Physician [facility] 03-22-2023 22:04-0500 Body weight 89.81 kg No Primary Care Physician [facility] 03-22-2023 22:04-0500 Diastolic blood pressure 86 mm[Hg] No Primary Care Physician [facility] 03-22-2023 22:04-0500 Heart rate 108 /min No Primary Care Physician [facility] 03-22-2023 22:04-0500 Respiratory rate 18 /min No Primary Care Physician [facility] 03-22-2023 22:04-0500 SaO2% (BldA) [Mass fraction] 96 % No Primary Care Physician [facility] 03-22-2023 22:04-0500 Systolic blood pressure 135 mm[Hg] No Primary Care Physician [facility] 08-07-2022 08:32-0400 Body temperature 97.9 [degF] Dr. Fior Ridley Work Phone: 7(171)906-170986 [place] [address] 08-07-2022 08:32-0400 Diastolic blood pressure 63 mm[Hg] Dr. Fior Ridley Work Phone: 3(042)945-569486 [place] [address] 08-07-2022 08:32-0400 Heart rate 81 /min Dr. Fior Ridley Work Phone: 6(298)487-759486 [place] [address] 08-07-2022 08:32-0400 Respiratory rate 18 /min Dr. Fior Ridley Work Phone: 9(701)100-950186 [place] [address] 08-07-2022 08:32-0400 SaO2% (BldA) [Mass fraction] 99 % Dr. Fior Ridley Work Phone: 1(322)085-689986 [place] [address] 08-07-2022 08:32-0400 Systolic blood pressure 125 mm[Hg] Dr. Fior Ridley Work Phone: 7(899)591-978786 [place] [address] 08-05-2022 18:27-0400 Body height 180.[address] Fior Ridley Work Phone: 1(788)654-776686 [place] [address] 08-05-2022 18:27-0400 Body mass index (BMI) [Ratio] 24.4 kg/m2 Dr. Fior Ridley Work Phone: 8(213)459-168986 [place] [address] 08-05-2022 18:27-0400 Body weight 79.[address] Fior Ridley Work Phone: 3(785)285-271986 [place] [address] 08-05-2022 17:22-0400 Respiratory rate 18 /min Dr. Fior Ridley Work Phone: 7(352)465-848386 [place] [address] 08-05-2022 17:11-0400 Body temperature 97.7 [degF] Dr. Fior Ridley Work Phone: 7(864)262-215586 [place] [address] 08-05-2022 17:11-0400 Diastolic blood pressure 68 mm[Hg] Dr. Fior Ridley Work Phone: [facility] 08-05-2022 17:11-0400 Heart rate 81 /min Dr. Fior Ridley Work Phone: [facility] 08-05-2022 17:11-0400 SaO2% (BldA) [Mass fraction] 97 % Dr. Fior Ridley Work Phone: [facility] 08-05-2022 17:11-0400 Systolic blood pressure 124 mm[Hg] Dr. Fior Ridley Work Phone: [facility] 08-05-2022 15:22-0400 Body height 180.[address] Fior Ridley Work Phone: [facility] 08-05-2022 15:22-0400 Body mass index (BMI) [Ratio] 27.1 kg/m2 Dr. Fior Ridley Work Phone: [facility] 08-05-2022 15:22-0400 Body weight 88.[address] Fior Ridley Work Phone: [facility] Encounters Encounter Date Encounter Type Care Provider Facility Start: 10-02-2024 End: 10-02-2024 Emergency department patient visit No Primary Care Physician -Emergency Department Work Phone: Start: 10-01-2024 Non-patient / Non-visit Dr. Jacquie Beckwith MD -[facility] Work Phone: Start: 10-01-2024 End: 10-01-2024 Evaluation and management of inpatient Dr. Rachel Stephen MD -Medical Surgical 3 Work Phone: Start: 09-30-2024 End: 10-01-2024 Emergency department patient visit SHWETA RAYA [facility] Start: 09-29-2024 End: 09-30-2024 Emergency department patient visit RACHEL PULIDO [facility] Start: 09-27-2024 End: 09-28-2024 Emergency department patient visit RACHEL PULIDO [facility] Start: 06-24-2024 End: 06-24-2024 Emergency department patient visit [facility] Start: 06-11-2024 End: 06-11-2024 Emergency department patient visit [facility] Comment on above: Chest pain, unspecif ied type (Primary Dx); Methamphetamine abuse (HCC); Alcohol abuse Start: 06-10-2024 End: 06-10-2024 Emergency department patient visit [facility] Start: 01-28-2024 End: 01-28-2024 Office outpatient visit 15 minutes Christy Negroied SHAYLEE Oscar MGMT ANALYST Work Phone: [facility] Comment on above: Influenza A (Primary Dx); URI with cough and congestion; Generalized body aches Start: 01-28-2024 End: 01-28-2024 ambulatory [facility] Start: 07-25-2023 End: 07-25-2023 Emergency department patient visit Physician Shelby [facility] Start: 06-20-2023 End: 06-20-2023 Emergency department patient visit KATYA GRIFFITH MD Facility:B Start: 06-20-2023 End: 06-20-2023 Observation OLIVIER PRINCE [facility] Start: 06-19-2023 End: 06-20-2023 Emergency department patient visit Carmelo Mccray Facility:[facility] Start: 06-19-2023 End: 06-20-2023 Emergency department patient visit No Primary Care Physician [facility]-Emergency Department Work Phone: Start: 05-01-2023 End: 05-01-2023 ambulatory Carmelo Albert Facility:[facility] Start: 05-01-2023 End: 05-01-2023 Evaluation and management of inpatient No Primary Care Physician [facility]-Intensive Care Unit Work Phone: Start: 03-23-2023 End: 03-23-2023 ambulatory [facility] Facility:[facility] Start: 03-23-2023 Non-patient / Non-visit No [facility] Physician [facility] Work Phone: Start: 03-23-2023 End: 03-23-2023 Evaluation and management of inpatient No Primary Care Physician [facility] Surgical 3 Work Phone: Start: 08-07-2022 Non-patient / Non-visit Dr. Franklin Ridley Work Phone: [facility] Start: 08-06-2022 Non-patient / Non-visit Dr. Franklin Ridley Work Phone: [facility] Start: 08-05-2022 ambulatory Ashley Torrey Facility:[facility] Start: 08-05-2022 End: 08-07-2022 Evaluation and management of inpatient Carmelo Albert Facility:[facility] Start: 08-05-2022 Non-patient / Non-visit Dr. Franklin Ridley Work Phone: [facility] Start: 08-05-2022 End: 08-07-2022 Evaluation and management of inpatient Dr. Fior Ridley Work Phone: [facility] Surgical 3 Procedures Date Procedure Procedure Detail Performing Clinician Start: 10-01-2024 Serum inorganic phos phate measurement No Primary Care Physician Start: 09-29-2024 Urinalysis SHWETA Gibson Comment on above: Result Comment: URIN ALYSIS Performed By: #### [id number] #### [place] [id number] Start: 09-28-2024 Urinalysis SHWETA Gibson Comment on above: Result Comment: URIN ALYSIS Performed By: #### [id number] ####[place] [id number] Start: 06-11-2024 Basic metabolic pane l calcium total Easton Dahl [employer] MILL SUPERINTENDENT - MANAGER RAIL Work Phone: Start: 06-11-2024 Drug test def 1-7 classes Easton Dahl [employer] MILL SUPERINTENDENT - MANAGER RAIL Work Phone: Start: 06-11-2024 Radiologic exam ches t 2 views Easton Dahl SEED MILL SUPERINTENDENT - MANAGER RAIL Work Phone: Start: 06-11-2024 Ecg routine ecg w/le ast 12 lds trcg only w/o i&r Gen Olivera MD Work Phone: Start: 01-28-2024 Sars-cov-2 detection by dna/rna Christy Retana SE[employer] MILL SUPERINTENDENT - MGMT ANALYST Work Phone: Start: 01-28-2024 Infectious agent dna /rna influenza 1st 2 types Christy Retana SEED MILL SUPERINTENDENT - MGMT ANALYST Work Phone: Start: 06-19-2023 Plain chest X-ray No [facility] Start: 06-19-2023 SARS-CoV-2, Influenz a & RSV (PCR) No Primary Care Physician Plan of Treatment Date Care Activity Detail Author Start: 11-06-2071 RSV Immunization for Adults (1 - 1-dose 75+ series) RSV Immunization for Adults (1 - 1-dose 75+ series) [facility] Start: 2046 Zoster Vaccines (1 of 2) Zoster Vaccines (1 of 2) [facility] Start: 10-12-2024 Influenza vaccination Influenza Vaccine (Season Ended) [facility] Start: 10-01-2024 Following clinical pathway protocol [facility] Start: 10-01-2024 Admission procedure [facility] Start: 10-01-2024 Assessment of risk of venous thromboembolism [facility] Start: 10-01-2024 Introduction of urinary catheter [facility] Start: 10-01-2024 Notification of physician [facility] Start: 10-01-2024 Oxygen therapy [facility] Start: 10-01-2024 Referral to service [facility] Start: 10-01-2024 Vital signs measurements [facility] Start: 10-01-2024 Provision of activity privileges [facility] Start: 10-01-2024 Verification routine [facility] Start: 10-01-2024 End: 10-01-2024 [facility] Start: 10-01-2024 Consultation [facility] Start: 10-01-2024 Patient discharge [facility] Start: 10-13-2023 COVID-19 Vaccine ( season) COVID-19 Vaccine () [facility] Start: 10-13-2023 Influenza vaccination Influenza Vaccine (#1) [facility] Start: 06-20-2023 [facility] Start: 05-01-2023 Following clinical pathway protocol [facility] Start: 05-01-2023 Assessment of risk of venous thromboembolism [facility] Start: 05-01-2023 Inhalation therapy procedure [facility] Start: 05-01-2023 Introduction of urinary catheter [facility] Start: 05-01-2023 Notification of physician [facility] Start: 05-01-2023 Oxygen therapy [facility] Start: 05-01-2023 Provision of activity privileges [facility] Start: 05-01-2023 Referral to service [facility] Start: 05-01-2023 Vital signs measurements [facility] Start: 05-01-2023 [facility] Start: 05-01-2023 Verification routine [facility] Start: 05-01-2023 Admission procedure [facility] Start: 05-01-2023 Hospital admission, emergency, from emergency room, medical nature [facility] Start: 05-01-2023 Patient discharge [facility] Start: 05-01-2023 [facility] Start: 03-23-2023 Patient discharge [facility] Start: 03-23-2023 Following clinical pathway protocol [facility] Start: 03-23-2023 Assessment of risk of venous thromboembolism [facility] Start: 03-23-2023 Notification of physician [facility] Start: 03-23-2023 Provision of activity privileges [facility] Start: 03-23-2023 Vital signs measurements [facility] Start: 03-23-2023 [facility] Start: 03-23-2023 Gamma glutamyl transferase measurement [facility] Start: 03-23-2023 Prothrombin time [facility] Start: 03-23-2023 Admission procedure [facility] Start: 08-07-2022 Patient discharge [facility] Start: 08-05-2022 Following clinical pathway protocol [facility] Start: 08-05-2022 Ambulation without limitation [facility] Start: 08-05-2022 Assessment of risk of venous thromboembolism [facility] Start: 08-05-2022 Catheterization of vein [facility] Start: 08-05-2022 Insertion of catheter into peripheral vein [facility] Start: 08-05-2022 Providing care according to standard [facility] Start: 08-05-2022 Referral to service [facility] Start: 08-05-2022 [facility] Start: 08-05-2022 Verification routine [facility] Start: 08-05-2022 Admission procedure [facility] Start: 08-05-2022 [facility] Start: 11-06-2015 DTaP/Tdap/Td Vaccines (1 - Tdap) DTaP/Tdap/Td Vaccines (1 - Tdap) [facility] Start: 11-06-2015 Hepatitis B Vaccines (1 of 3 - 19+ 3-dose series) Hepatitis B Vaccines (1 of 3 - 19+ 3-dose series) [facility] Start: 11-06-2015 Pneumococcal Vaccine: Pediatrics (0 to 5 Years) and At-Risk Patients (6 to 49 Years) (1 of 2 - PCV) Pneumococcal Vaccine: Pediatrics (0 to 5 Years) and At-Risk Patients (6 to 49 Years) (1 of 2 - PCV) [facility] Start: 2014 Hepatitis C screening Hepatitis C Screening [facility] Start: 2009 Varicella vaccination Varicella Vaccines (1 of 2 - 13+ 2-dose series) [facility] Start: 2008 Depression Screening Depression Screening [facility] Start: 1997 MMR Vaccines (1 of 1 - Standard series) MMR Vaccines (1 of 1 - Standard series) [facility] Start: 1996 HIV screening HIV Screening [facility] Gamma glutamyl trans ferase measurement [facility] INR in Blood by Coagulation assay [facility] Patient Education [facility] Work Phone: Patient referral [facility] Work Phone: Payers Date Payer Category Payer Medicaid HMO [employer] OD Member Subscriber Plan / Payer (Effective 2023-Present) Name: Kade Barrera Relation to Subscriber: Self Name: Kade Barrera Payer ID: [id number] (NAIC) Type: Medicaid HMO Address: [place] [id number] 2022 Private Health Insurance [id number] 2022 Self-pay 1996 Unknown [id number] 1996 Unknown [id number] 1996 Unknown [id number]. 651 1996 Unknown [id number]. 651 1996 Unknown [id number]. 651 Unknown [id number]. 462 Unknown [id number]. 462 Unknown [id number]. 462 Unknown [id number]. 462 Unknown [id number]. 462 Unknown [id number]. 462 Unknown [id number]. 462 Unknown [id number]. 462 Unknown [id number] 462 Social History Date Type Detail Facility Start: 08-05-2022 End: 06-19-2023 Tobacco smoking status NHIS Unknown if ever smoked [facility] Start: 1995 Sex Assigned At Male [facility] Start: 06-20-2023 Tobacco smoking status Light t obacco smoker (finding) [facility] Start: 1995 Sex assigned at Not on file [facility] Start: 01-28-2024 Sex Male (finding) [facility] Start: 06-11-2024 Gender identity Not on file [...] on 1 occasion? Daily or almost daily [facility] Start: 10-01-2024 End: 10-02-2024 Tobacco smoking status NHIS Smokes tobacco daily (finding) [facility] Goals Date Patient Goal Desired Activity /State Functional Status Date Assessment Result Facility 10-01-2024 Functional status Up ad [place] [facility] Work Phone: 06-20-2023 Functional Status Door open, Room check performed [facility] 06-20-2023 Functional Status [facility] 06-20-2023 Functional Status Ambulation in Room [facility] 06-20-20[address] [facility] 06-20-2023 Functional Status [facility] 06-20-2023 Functional Status [facility] 06-20-[address] [facility] 06-20-2023 Functional Status Environmental Safety Implemented Adequate room lighting, Bed in low position, Call device within reach [facility] 05-01-2023 Functional status Patient Activity Up ad camden [facility] Work Phone: 03-23-2023 Functional status Activity Ability Indepe ndent [facility] Work Phone: 08-07-2022 Functional status Up ad camden [facility] Work Phone: Mental Status Date Assessment Result Facility 10-02-2024 Cognitive function Voice/Name [facility] Work Phone: 10-01-2024 Cognitive function Voice/Name [facility] Work Phone: 06-20-2023 Mental Status Orientation Oriented x 4 [facility] 06-20-2023 Mental Status [facility] 06-20-2023 Mental Status [facility] 06-19-2023 Cognitive function Level Of Cons ciousness Awake;Alert;Appropriate [facility] Work Phone: 03-23-2023 Cognitive function Appropriate;Cooperativ e [facility] Work Phone: 08-07-2022 Cognitive function Voice/Name;Touch/Shaki ng [facility] Work Phone: Clinical Notes 08-05-2022 to 10-01-2024 Note Date & Type Note Facility 10-01-2024 Progress note Note Date/Time October 01, 2024 9:38am [facility] Medical Records Department [address] [place] [address] Progress Note - Hospitalist 10/01/24 0934 MR#: [id number] Acct: [id number] Name: DAISYKADEKylah REYNOLDS Rep #:[id number] : 1995 28 From: Rachel Stephen MD PCP: Care Physician,No Primary Status :ADM IN Location: [place] [address] Reason for Visit Chief Complaint: EtOH Detoxification. [...] Multi Select Codes Visit Charges Visit Charges: 57000 PROLNG IP/OBS E/M EA 15 MIN 10/01/24 0938 <Electronically signed by Rachel Stephen MD> Cosigner Signature (if applicable): CC: ~ Signed [facility] Work Phone: 1(208) 778-775508-21-2025 Progress note [facility] Medical Records Department [address] [place] [address] Progress Note - Hospitalist 10/01/24 0934 MR#: [id number] Acct: [id number] Name: KADE VILLA Rep #:[id number] : 1995 28 From: Rachel Stephen MD PCP: Care Physician,No Primary Status :ADM IN Location: [place] [address] Reason for Visit Chief Complaint: EtOH Detoxification. [...] Multi Select Codes Visit Charges Visit Charges: 94136 PROLNG IP/OBS E/M EA 15 MIN 10/01/24 0943 Cosigner Signature (if applicable): CC: ~ Signed [facility]08-21-2025 History and physical note Author Jacquie Beckwith [facility] Note Date/Time October 01, 2024 2: 22am [facility] Medical Records Department [address] [place] [address] H&P Exam - Hospitalist 10/01/24 0151 MR#: [id number] Acct: [id number] Name: KADE VILLA Rep #:[id number] : 1995 28 From: Jacquie Beckwith MD PCP: Care Physician,No Primary Status :ADM IN Location: [facility] SA687-5 HPI - General General Date of Admission: [...] court date with then referral to [facility] EtOH rehab facility; however, unfortunately instead of [...] for transition to avoid alcohol withdrawal symptoms. [facility] Medical History Substance abuse Depression Smoker Anxiety [...] desired EtOH detoxification admission prompting transition to [facility]. #1. EtOH Abuse with Impending Acute EtOH Withdrawal: Will admit to ND, routine labs obtained in the OSH ED. Given interest in sobriety, will admit to MS, will initiate and continue on protocol with taper course of Phenobarbital, as needed gabapentin, Catapres, Bentyl, Vistaril, IV fluids, IV antiemetics, Tylenol as needed for pain. Will consult Case management for assistance for transition to next level of rehabilitation care ([facility] which per OSH ED is already set-up/patient [...] encourage ambulation. Charges/Coding Visit Charges Inpatient E&M: 25991 Init Hosp L2 10/01/24 0222 <Electronically signed by Jacquie Beckwith MD> Cosigner Signature (if applicable): CC: Dr. Jacquie Beckwith MD; No Primary Care Physician~ Signed [facility] Work Phone: 1(962) 781-710708-21-2025 Evaluation note* Diagnosis Onset Date Resolution Status Admit Date Admitted to alcohol detoxification center acute September 12:22am [facility] Work Phone: 1(928) 147-568608-21-2025 History and physical note [facility] Medical Records Department [address] [place] [address] H&P Exam - Hospitalist 10/01/24 0151 MR#: [id number] Acct: [id number] Name: KADE VILLA Rep #:[id number] : 1995 28 From: Jacquie Beckwith MD PCP: Care Physician,No Primary Status :ADM IN Location: [facility] DV400-5 HPI - General General Date of Admission: [...] for courtdate with then referral to [facility] EtOH rehab facility; however, unfortunately instead of [...] back of the scalp. Work-up in the [facility] ED 09/30/2024 included VS 130/77, AF, HR [...] for transition to avoid alcohol withdrawal symptoms. [facility] Medical History Substance abuse Depression Smoker Anxiety [...] desired EtOH detoxification admission prompting transition to [facility]. #1. EtOH Abuse with Impending Acute EtOH Withdrawal: Will admit to MS, [facility] Given interest in sobriety, will admit to MS, will initiate and continue on protocol with taper course of Phenobarbital, as needed gabapentin, Catapres, Bentyl, Vistaril, IV fluids, IV antiemetics, Tylenol as needed for pain. Will consult Case management for assistance for transition to next level of rehabilitation care ([facility] which per OSH ED is already set-up/patient acceptedfollowing acute detoxification completion). Mag, phos pending. Maintain on CIWA protocol concurrently. #2. Anxiety and depression: Notable contributing to his substance abuse. [facility] with safety plan at that time and eventual patient once not intoxicated denial of suicidal ideations. Will encourage follow-up for counseling, case management/180 consulted. #3. Polysubstance abuse chart reported: Patient with previous reported history of crack/cocaine, amphetamine usage, [facility] ED UDS 09/29/24 with positive benzodiazepines and barbiturates. #4. Chronic migraines: Not on any chronic regimen, will have as needed ibuprofen. #5. Chronic asthma: Encouraged tobacco cessation, PRN albuterol. #6. Tobacco Abuse: Encouraged cessation, inpatient consultation per RT, NR if desired. #7. DVT prophylaxis: Low risk for type admission, encourage ambulation. Charges/Coding Visit Charges Inpatient E&M: 70309 Init Hosp L2 10/01/24 0222 Cosigner Signature (if applicable): CC: Dr. Jacquie Beckwith MD; No Primary Care Physician~ Signed [facility]05-01-2025 Emergency department Note* Tash Butr RN - 06/11/2024 7:20 AM EDT Report given to Holli AVENDAÑO. [place] [id number] Emergency department Note* Tash Burt RN - 06/11/2024 7:20 AM EDT Report given to Holli AVENDAÑO. * Tash Burt RN - 06/11/2024 5:08 AM EDT Pt ambulated independently back and forth to the restroom. 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 Pt currently on cardiac technologist; sts that the pain starts in the L shoulder and radiates into the neck and then jaw. * Tash Burt RN - 06/11/2024 4:38 AM EDT Pt heading to [facility] with transport. 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 NOTE: This [...] (1,000 mL IntraVENous New Bag 06/11/24 0604) [facility] MDM elements: The patient presented with chief [...] Bae CNP 06/11/24 0659 documented in this [facility]05-01-2025 Emergency department Note* Tash Burt RN - 06/11/2024 5:08 AM EDT Pt ambulated independently back and forth to the restroom. 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 Pt currently on cardiac technologist; sts that the pain starts in the L shoulder and radiates into the neck and then jaw. [facility]20 Emergency department Note* Tash Burt RN - 06/11/2024 4:38 AM EDT Pt heading to [facility] with transport. 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 NOTE: This [...] Medicine Provider SHAYLEE Bae CNP 06/11/[address] [facility] [id number] Emergency department Note* Daina Chung RN - 06/10/2024 10:50 PM EDT Pt did not want to wait to be seen. Pt seen walking out of ED. Pt A&OX4. Steady gait noted. No IV access obtained during visit. [facility] [id number] Emergency department Note* Daina Chung RN - [...] Barcenas PA-C 06/11/24 0118 documented in this [facility]04-30-2025 Emergency department Triage note* Danita Guevara RN - 06/10/2024 10:37 PM EDT Pt states he called poison control due to mixing alcohol and ice. Pt states he has been drinking beer all day. [facility] HospitalXkavzs65-20-0581 Physician Emergency department Note* Danita Barcenas PA-C - 06/10/2024 10:21 PM EDT Patient left without being seen after initial triage by nursing staff. As such, I did not participate in the care of this patient. Danita Barcenas PA-C 06/11/[address] [facility] Work Phone: 1(449) 708-699712-17-2024 History of Present illness Narrative* SHAYLEE Burch NP - 01/28/2024 2:00 PM EST Images from the original note were not included. [facility] [address] Dept: [phone] Dept Loc: [phone] Subjective Kade Barrera is a 28 y.o. [...] forclarification) ALAINA Burch 01/28/24 documented in this [facility]05-09-2024 Hospital Discharge instructions Patient Education 06/20/2023 19:08:45 Alcohol Withdrawal Syndrome, Kwmk-nj-Mktn Alcohol Withdrawal Syndrome When a person who [...] away. Follow these instructions at home: Take apld-qxe-oembahb and prescription medicines only as told by [...] 07/16/2008 Document Revised: 01/10/2018 Document Reviewed: 10/04/2017 Chosen.[employer] Patient Education 2020 [employer]. 06/20/2023 02:18:58 Seizure, New Onset, Unknown Cause [...] told. 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 [place] [address], [place] [address]. All rights reserved. This information is not intended as a substitute for professional medical care. Always follow yourhealthcare professional's instructions. Follow Up Care 06/20/2023 02:07:45 With:MISTY DECKER DO Address: [address] [place] [address] [phone] When: Unknown Comments:Please follow-up for your post-hospital follow-up appointment. [facility] 05-09-2024 Note Discharge Instructions Thank you for allowing [place] to assist you with your healthcare needs. The following is importantdischarge information regarding your hospital visit. Your Diagnosis Alcohol dependence Depression with anxiety Seizure Seizure Seizure due to alcohol withdrawal What to do next Follow Up Appointments Follow Up with MISTY DECKER DO When Why: Please follow-up for your post-hospital follow-up appointment. Where: [address] [place] [phone] The Following Activity and Diet Have Been [...] What is chlordiazepoxide? Chlordiazepoxide is a benzodiazepine (pwh-vcz-vrd-TONIE-eh-peen) that is used to treat anxiety disorders. [...] may report side effects to FDA at 0-430-GSB-6770. What other drugs will affect chlordiazepoxide? Using chlordiazepoxide with other drugs that make you sleepy or slow your breathing can cause dangerous side effects or . Ask your doctor before using opioid medication, a sleeping pill, a muscle relaxer, or medicine for anxiety or seizures. Other drugs may affect chlordiazepoxide, including prescription and rewi-azt-nqxthav medicines, vitamins, and herbal products. Tell your [...] to ensure that the information provided by [employer]. ('Mult[employer]') is accurate, up-to-date, and complete, but no guarantee is made to that effect. Drug information contained herein may be time sensitive. [employer]edly information has been compiled for use by healthcare practitioners and consumers in the [place] and therefore Ne[employer] does not warrant that uses outside of the [place] are appropriate, unless specifically indicated otherwise. [employer] drug information does not endorse drugs, diagnose patients or recommend therapy. [employer]amil[employer] drug information isan informational resource designed to [...] effective or appropriate for any given patient. [facility] does not assume any responsibility for any aspect of healthcare administered with the aid of information [facility] provides. The information contained herein is not intended to cover all possible uses, directions, precautions, warnings, drug interactions, allergic reactions, or adverse effects. If you have questions about the drugs you are taking, check with your doctor, nurse or pharmacist. Copyright 6910-8675 [facility] CareClean Runner[employer]Point. Version: 12.12. Revision Date: 09/12/2022. Education Materials [...] away. Follow these instructions at home: Take ypdj-qwm-efliovp and prescription medicines only as told by [...] 07/16/2008 Document Revised: 01/10/2018 Document Reviewed: 10/04/2017 Chosen.fm Patient Education 2020 [employer]atsnap. Seizure: New Onset with Unknown Cause (Adult) [...] told. 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 [address] [place] [address], [place] [address]. All rights reserved. This information is not intended as a substitute for professional medical care. Always follow yourhealthcare professional's instructions. Additional Information VACCINATE! IT SAVES LIVES! Members of the community who have not yet received the COVID-19 vaccine and would like to receive it can visit one of [facility] vaccine clinics. There are many vaccine clinic locations within the [facility]. For locations and available times, please visit https://[email or web address].[place].gov/. It is important to note that some COVID mobile vaccine clinics are held outdoors and may be canceled in rainy or stormy conditions. To learn more about pediatric vaccinations (ages 5-11), we invite you to visit the [facility] webpage. https://www.[employer].org/pages/8286-Evldk-Ixbkysrglyl-Vmyxqqwuve-Iqwxf-Dko stions.htmlTo learn more about the COVID-19 vaccine, we invite you to visit the CDC website for a list of frequently asked questions.https://www.cdc.gov/coronavirus/2019-ncov/vaccines/faq.html [employer] Patient Portal Access Instructions: Stay connected with your healthcare team and access your personal medical information anytime with the [facility] Patient Portal. Please follow the directions below to create your [facility] account: 1.Access the email account you provided upon registration to the hospital/physician office.2.Look for an invitation email from [facility].3.Open the email and access the invitation link: AcceptInvitation to [facility].4.Fill in the required emmanuel to create your account. To access your account, visit [email or web address]. Click the blue button labeled Access Patient [...] who you will allowto register on the [place] [facility] Software[employer] Patient Portal for access to your information. You can also access the [place] OneChart Patient Portal on the [place] Anywhere osman. Simply click on Patient Portal and then log into your account. If you would like to receive a full copy of your medical records, please contact the [facility] Medical Records Department by calling [phone], Saturday through Saturday between 8 a.m. and [...] Call your local pharmacy or go to http://Accruent.SmartWatch Security & Sound/5X8Or3e to find one close to you.3.Make use of household items: Use cat litter or old coffee grounds to dispose medications if other options arenot available. Mix your drugs with these household products, seal them in an airtight container andthrow it into the garbage. Call [facility]: [phone] to be sure your drugs can be [...] Signatures Patient Education Materials Alcohol Withdrawal Syndrome, Scbn-rc-Yfph Seizure, New Onset, Unknown Cause (Adult) Medication Leaflets chlordiazePOXIDE My discharge plan and instructions have been reviewed and explained to me and I,KADE VILLA understand my current condition and have read and understand these discharge instructions. I havereceived a written copy of the plan/instructions. If I have questions, I am aware that I should contact my doctor. 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05-09-2024 Note ORIGINAL EXAMINATION: MRI OF THE BRAIN [...] Sign Date: 06/20/2023 4:13:50 PM Ordering Provider: [facility]05-09-2024 Note Date of Service 06/20/2023 Chief Complaint [...] anxiety, depression, alcohol dependence. Patient presented to [facility] emergency department on 06/20/2023 after possible seizure. Patient was at [facility] ED earlier in the day with chest [...] ANA MARIA PEREZ on 06/20/2023 02:[address] [facility]05-09-2024 Evaluation + Plan noteExtracted from: Title:History and [...] and may include grammatical and/or spelling errors. [facility] 05-09-2024 Note ORIGINAL EXAMINATION: ONE XRAY [...] Date: 06/20/2023 3:12:39 AM [facility] Note ORIGINAL EXAMINATION: CT OF THE [...] Date: 06/20/2023 3:20:14 AM Ordering Provider: MICHAEL [facility]05-09-2024 Note ORIGINAL EXAMINATION: CT OF THE [...] Date: 06/20/2023 3:18:15 AM Ordering Provider: MICHAEL [facility]05-09-2024 NoteSinus tachycardia Electronic Signature: MICHAEL PADORN DO 06/20/2023 02:28:09[facility] 05-08-2024 Discharge summary Author Carmelo Mccray [facility] June 20, 2023 12:34am Note Date/Time June 19, 2023 9:50pm [facility] Medical Records Department [address] [place] [address] Emergency Department Summary 06/19/23 MR#: [id number] Acct: [id number] Name: KADE VILLA Rep #:[id number] : 1995 27 From: Carmelo Clarke PCP: [...] his symptoms betterand nothing makes them worse. [facility] Medical History Alcohol abuse Alcohol [...] % (Auto) 60.8 Lymph % (Auto) 28.9 Barnes % (Auto) 8.4 Eos % (Auto) 0.6 [...] sinus rhythm with a rate of 75. MA interval, QRS interval, and QTc intervals were all normal. [place] was normal. There are no acute ST [...] problems, contact your Primary Care Provider. Call [facility] ([phone]) or report to the closest Emergency Room. Call 911 if necessary. 06/20/23 0034 <Electronically signed by Carmelo Mccray DO> Cosigner Signature (if applicable): CC: No Primary Care Physician ~ Signed [facility] Work Phone: 1(775) 619-126803-20-2024 [facility] Medical Records Department [address] [place] [address] Discharge Summary 05/01/23 1800 MR#: [id number] Acct: [id number] Name: KADE VILLA Rep #: [id number] : 1995 27 From: Carmelo Albert DO PCP: Care Physician,No Primary Status:DIS DON Location: ICU [id number] Providers Date of Admission: 05/01/23 Primary Care [...] AGAINST MEDICAL ADVICE. Patient was brought to [facility] by the sap bods developer. Weight / BMI Weight Weight: 91.4 kg [...] Carmelo Albert DO; No Primary Care Physician [facility] Progress note Author Carmelo Albert [facility] May 01, 2023 9:43am Note Date/Time May 01, 2023 7:0 1am [facility] Medical Records Department [address] [place] [address] Progress Note - Hospitalist 05/01/23 0658 MR#: [id number] Acct: [id number] Name: DAISYKADECATINA HANSEN Rep #:[id number] : 1995 27 From: Carmelo Albert DO [...] (Auto) 49.6, Lymph % (Auto) 41.9 H, Barnes % (Auto) 6.5, Eos % (Auto) 0.3, [...] type admission. Charges/Coding Visit Charges Inpatient E&M: 89480 Subs Hosp L2 05/01/23 0943 <Electronically signed by Carmelo Albert DO> Cosigner Signature (if applicable): CC: ~ Signed [facility] Work Phone: 1(855) 168-849403-20-2024 Discharge summary Author Marcio Cardona [facility] May 01, 2023 6:26am Note Date/Time May 01, 2023 5:2 8am [facility] Medical Records Department [address] [place] [address] Emergency Department Summary 05/01/23 MR#: [id number] Acct: [id number] Name: KADE VILLA Rep #:[id number] : 1995 27 From: Marcio Cardona MD [...] does not intend to do that again. [facility] Medical History (Updated 05/01/23 @ [...] your Primary Care Provider. Call [facility] ([phone]) or report to the closest Emergency Room. Call 911 if necessary. 05/01/23625 <Electronically signed by Marcio Cardona MD> Cosigner Signature (if applicable): CC: No Primary Care Physician ~ Signed [facility] Work Phone: 1(333) 250-585303-20-2024 History and physical note Author Jacquie Beckwith [facility] May 01, 2023 5:50am Note Date/Time May 01, 2023 5:3 3am [facility] Medical Records Department [address] [place] [address] H&P Exam - Hospitalist 05/01/23 0532 MR#: [id number] Acct: [id number] Name: KADE VILLA Rep #:[id number] : 1995 27 From: Jacquie Beckwith MD [...] Asthma, Chronic migraines who presents to the [facility] ED on 05/01/23 withlast EtOH intake reported [...] administered phenobarbital 97.2 mg p.o. x 1. [facility] (Updated 05/01/23 @ 05:48 by [...] Asthma, Chronic migraines who presents to the [facility] ED on 05/01/23 withlast EtOH intake reported [...] type admission. Charges/Coding Visit Charges Inpatient E&M: 89411 Init Hosp L2 05/01/23 0550 <Electronically signed by Jacquie Beckwith MD> Cosigner Signature (if applicable): CC: Dr. Jacquie Beckwith MD; No Primary Care Physician~ Signed [facility] Work Phone: 1(875) 976-659302-10-2024 [facility] Medical Records Department [address] [place] [address] Discharge Summary 03/23/23 1320 MR#: [id number] Acct: [id number] Name: KADE VILLA Rep #: [id number] : 1995 27 From: Jacquie Beckwith MD PCP: Care Physician,No Primary Status:DIS IN Location: 3 AU609-6 Providers Date of Admission: 03/23/23 Date of [...] abuse, EtOH abuse who presented to the [facility] ED on 03/23/23 with history of alcohol [...] UDS negative, ethyl alcohol 212. Admitted to ND, admitted to ND, initiated and continued on protocol with taper [...] % (Auto) 58.3, Lymph % (Auto) 34.2, Barnes % (Auto) 6.3, Eos % (Auto) 0.1, [...] Advice Charges/Coding Visit Charges Inpatient E M: 68583 Disch Hosp >30min 03/23/23 1321 Cosigner Signature (if applicable): CC: Dr. Jacquie Beckwith MD; No Primary Care Physician [facility] History and physical note Author Stan Thomas [facility] March 23, 2023 12:48am Note Date/Time March 23, 2023 12:18am [facility] Medical Records Department [address] [place] [address] H&P Exam - Hospitalist 03/23/23 0017 MR#: [id number] Acct: [id number] Name: KADE VILLA Rep #:[id number] : 1995 27 From: Stan Bullock PCP: Care Physician,No Primary Status :ADM IN Location: [facility] DM699-2 HPI - General General Date of Admission: [...] including hematemesis melena or alcoholic liver disease [facility] Medical History Alcohol abuse Anxiety Asthma Depression [...] % (Auto) 58.3, Lymph % (Auto) 34.2, Barnes% (Auto) 6.3, Eos % (Auto) 0.1, Baso [...] Serum alcohol was highat 212. CIWA monitor. prepress manager consulted.. 2. Chronic nicotine use/cigarette smoking: [...] % (Auto) 58.3, Lymph % (Auto) 34.2, Barnes% (Auto) 6.3, Eos % (Auto) 0.1, Baso [...] Alcohol 212.0 Charges/Coding Visit Charges Inpatient E&M: 21255 Init Hosp L3 03/23/23 0048 <Electronically signed by Stan Thomas MD> Cosigner Signature (if applicable): CC: Dr. Stan Thomas MD; No Primary Care Physician~ Signed [facility] Work Phone: [phone]) 331-677902-10-2024 Discharge summary Author Daquan Reid [facility] March 23, 2023 12:42am Note Date/Time March 22, 2023 1 0:17pm [facility] Medical Records Department [address] [place] [address] Emergency Department Summary 03/22/23 MR#: [id number] Acct: [id number] Name: KADE VILLA Rep #:[id number] : 1995 27 From: Daquan Reid MD PCP: Care Physician,No Primary Status :[id number] Daquan Reid MD on [...] detox last year, then went through [facility]. [facility] Medical History Alcohol abuse Anxiety [...] discussed with Dr. Thomas for admission to [facility] for detox from alcohol. Patient is in [...] % (Auto) 58.3 Lymph % (Auto) 34.2 Barnes % (Auto) 6.3 Eos % (Auto) 0.1 [...] alcohol intoxication Disposition Disposition: Acute Care Hospital [facility] What to do if you have Problems For any increased pain, shortness of breath, bleeding, nausea or vomiting, chestpain, or any unexpected problems, contact your Primary Care Provider. Call [facility] ([phone]) or report to the closest Emergency Room. Call 911 if necessary. 03/23/23 0018 <Electronically signed by Daquan Reid MD> Cosigner Signature (if applicable): CC: No Primary Care Physician ~ Signed [facility] Work Phone: [phone] 387-765802-10-2024 Discharge summary Author Daquan Reid [facility] March 23, 2023 12:42am Note Date/Time March 22, 2023 1 0:17pm [facility] Medical Records Department [address] [place] [address] Emergency Department Summary 03/22/23 MR#: [id number] Acct: [id number] Name: KADE VILLA Rep #:[id number] : 1995 27 From: Daquan Reid MD PCP: Care Physician,No Primary Status :ADM IN Location: [place] [address] Daquan Reid MD on [...] detox last year, then [facility] Medical History Alcohol abuse Anxiety Asthma Depression [...] discussed with Dr. Thomas for admission to [facility] for detox from alcohol. Patient is in [...] % (Auto) 58.3 Lymph % (Auto) 34.2 Barnes % (Auto) 6.3 Eos % (Auto) 0.1 [...] alcohol intoxication Disposition Disposition: Acute Care Hospital [facility] What to do if you have Problems For any increased pain, shortness of breath, bleeding, nausea or vomiting, chestpain, or any unexpected problems, contact your Primary Care Provider. Call [facility] ([phone]) or report to the closest Emergency Room. Call 911 if necessary. 03/23/2317 <Electronically signed by Daquan Reid MD> Cosigner Signature (if applicable): CC: No Primary Care Physician ~ Signed [facility] Work Phone: [phone]) 567-210706-27-[address] Albert [facility] August 07, 2022 9:19am Note Date/Time August 07, 2022 9:18 am [facility] Medical Records Department [address] [place] [address] Instructions for Home/Discharge Instructions 08/07/22917 MR#: [id number] Acct: [id number] Name: KADE VILLA Rep #:[id number] : 1995 26 From: Carmelo Albert DO [...] DO; No Primary Care Physician ~ Signed [facility] Work Phone: [phone]) 480-205706-27-[address] Albert [facility] August 07, 2022 9:19am Note Date/Time August 07, 2022 9:19 am [facility] Medical Records Department [address] [facility] [place] [address] Discharge Summary 08/07/22918 MR#: [id number] Acct: [id number] Name: KADE VILLA Rep #:[id number] : 1995 From: Carmelo Albert DO PCP: Care Physician,No Primary Status :ADM IN Location: [facility] SZ414-9 Providers Date of Admission: 08/05/22 Primary Care [...] follow up with [facility] for inpatient treatment on 08/08 Given reported [...] Self Care Charges/Coding Visit Charges Inpatient E&M: 87413 Disch Hosp 08/07/22 0986 <Electronically signed by Carmelo Albert DO> Cosigner Signature (if applicable): CC: Dr. Carmelo Albert DO; No Primary Care Physician~ Signed [facility] Work Phone: [phone]) [phone] [facility] Medical Records Department [address] [place] [address] Discharge Summary 08/07/2219 MR#: [id number] Acct: [id number] Name: KADE VILLA Rep #: [id number] : 1995 From: Carmelo Albert DO PCP: Care Physician,No Primary Status:ADM IN Location: [place] [address] Providers Date of Admission: 08/05/22 Primary Care [...] follow up with [facility] for inpatient treatment on 08/08 Given reported [...] Care Charges/Coding Visit Charges Inpatient E M: 77522 Disch Hosp 08/07/22 0919 Cosigner Signature (if applicable): CC: Dr. Carmelo Albert, ; No Primary Care Physician [facility]igned[facility]06-27-[address] Albert [facility] August 07, 2022 9:18am Note Date/Time August 07, 2022 8:02 am [facility] Medical Records Department [address] [place] [address] Progress Note - Hospitalist 08/07/22 0801 MR#: [id number] Acct: [id number] Name: KADE VILLA Rep #:[id number] : 1995 From: Carmelo Albert DO PCP: Care Physician,No Primary Status :ADM IN Location: [place] [address]-1 Reason for Visit Reason for Visit: Diagnoses [...] follow up with [facility] for inpatient treatment on 08/08 Given reported [...] Cosigner Signature (if applicable): CC: ~ Signed [facility] Work Phone: 1([phone]) 714-518206-26-[address] Albert [facility] August 06, 2022 12:45pm Note Date/Time August 06, 2022 8:25 am [facility] Medical Records Department [address] [place] [address] Progress Note - Hospitalist 08/06/22 0823 MR#: [id number] Acct: [id number] Name: KADE VILLA Rep #:[id number] : 1995 From: Carmelo Albert DO PCP: Care Physician,No Primary Status :ADM IN Location: [place] [address] Reason for Visit Reason for Visit: Diagnoses [...] % (Auto) 56.8, Lymph % (Auto) 33.2, Barnes% (Auto) 8.3, Eos % (Auto) 0.3, Baso [...] follow up with [facility] for inpatient treatment on 08/08 PLAN: Plan Chronic complicating conditions: * Polysubstance abuse-Patient admits to utilizing cocaine and methamphetamines as well-Recommend cessation-180 consultation * Tobacco abuse-Recommend cessation-Nicotine patch DVT prophylaxis -Low risk -Recommend early and frequent ambulation CODE STATUS -Full code Charges/Coding Visit Charges Inpatient E&M: 10688 Subs Hosp L1 08/06/22 1240 <Electronically signed by Carmelo Albert DO> Cosigner Signature (if applicable): CC: ~ Signed [facility] Work Phone: 1(205) 242-565206-25-[address] Ridley [facility] August 05, 2022 7:14pm Note Date/Time August 05, 2022 3:51 pm [facility] Medical Records Department [address] [place] [address] Emergency Department Summary 08/05/22 MR#: [id number] Acct: [id number] Name: KADE VILLA Rep #:[id number] : 1995 26 From: Vilma CAMPA PCP: Care Physician,No Primary Status :ADM IN Location: [place] 788132-1 HPI <KATHERYN Mcdowell - Last Filed: 08/05/22 [...] <KATHERYN Mcdowell - Last Filed: 08/05/22 17:08> [facility] Medical History (Updated 08/05/22 @ 17:01 by [...] <KATHERYN Mcdowell - Last Filed: 08/05/22 17:08> [facility] MDM Narrative Medical decision making narrative: History [...] % (Auto) 56.8 Lymph % (Auto) 33.2 Barnes % (Auto) 8.3 Eos % (Auto) 0.3 [...] (Auto) Neut % (Auto) Lymph % (Auto) Barnes % (Auto) Eos % (Auto) Baso % [...] Ridley MD - Last Filed: 08/05/22 16:54> [facility] Lab Data Labs: Laboratory Results - last 24 hr 08/05/22 08/05/22 08/05/22 15:56 15:56 15:56 WBC 7.1 RBC 4.56 L Hgb 14.6 Hct 41.3 MCV 90.6 MCH 32.0 MCHC 35.4 RDW Std Deviation 38.1 RDW Coeff of Jessica 11.6 Plt Count 249 MPV 9.1 Immature Gran % (Auto) 0.400 Neut % (Auto) 56.8 Lymph % (Auto) 33.2 Barnes % (Auto) 8.3 Eos % (Auto) 0.3 [...] (Auto) Neut % (Auto) Lymph % (Auto) Barnes % (Auto) Eos % (Auto) Baso % [...] your Primary Care Provider. Call [facility] ([phone]) or report to the closest Emergency Room. Call 911 if necessary. 08/05/221707 <Electronically signed by Vilma CAMPA> Cosigner Signature (if applicable): 08/05/221913 <Electronically signed by Fior Ridley MD> CC: No Primary Care Physician ~ Signed [facility] Work Phone: [phone]) 329-386106-25-2023 History and physical note Author Dr. Hirsch [facility] August 05, 2022 5:16pm Note Date/Time August 05, 2022 5:05 pm [facility] Medical Records Department [address] [place] [address] H&P Exam - Hospitalist 08/05/22 170 MR#: [id number] Acct: [id number] Name: KADE VILLA Rep #:[id number] : 1995 26 From: Ashley Hirsch DO PCP: Care Physician,No Primary Status :ADM IN Location: [facility] IM017-2 HPI - General General Date of Admission: 08/05/22 Date of Service: 08/05/22 Chief Complaint: Desire for detoxification from alcohol HPI Narrative KADE VILLA, is a 26 M who presented [facility] 08/05/2022 requesting detox from alcohol. [...] discharge is for readmission into inpatient rehab. [facility] Medical History No acute medical problems Polysubstance [...] % (Auto) 56.8, Lymph % (Auto) 33.2, Barnes% (Auto) 8.3, Eos % (Auto) 0.3, Baso [...] -Full code Charges/Coding Visit Charges Inpatient E&M: 92753 Init Hosp L2 08/05/22 1716 <Electronically signed by Ashley Hirsch DO> Cosigner Signature (if applicable): CC: Dr. Ashley Hirsch DO; No Primary Care Physician~ Signed [facility] Work Phone: Discharge summary Author Marcio Cardona [facility] May 01, 2023 6:26am Note Date/Time May 01, 2023 5:2 8am [facility] Medical Records Department [address] [place] [address] Emergency Department Summary 05/01/23 MR#: [id number] Acct: [id number] Name: KADE VILLA Rep #:[id number] : 1995 27 From: Marcio Cardona MD [...] does not intend to do that again. [facility] Medical History (Updated 05/01/23 @ [...] your Primary Care Provider. Call [facility] ([phone]) or report to the closest Emergency Room. Call 911 if necessary. 05/01/23 06 <Electronically signed by Marcio Cardona MD> Cosigner Signature (if applicable): CC: No Primary Care Physician ~ Signed [facility] Work Phone: Evaluation note* Diagnosis Onset Date Resolution Status Alcohol abuse acute Desire for detoxification [facility] Work Phone: Evaluation note* Diagnosis Onset Date Resolution Status Acute alcohol intoxication a cute Acute hyperactive alcohol withdrawal delirium acute Desire for detoxification [facility] Work Phone: Evaluation note* Diagnosis Onset Date Resolution Status Acute hyperactive alcohol withdrawal delirium resolved Alcohol dependence acute Alcohol withdrawal acute [facility] Work Phone: Evaluation note* Diagnosis Onset Date Resolution Status Acute hyperactive alcohol withdrawal delirium resolved Alcohol withdrawal acute [facility] Work Phone: Evaluation note* Diagnosis Influenza [...] HealthHistory and physical note Author Dr. Hirsch [facility] August 05, 2022 5:16pm Note Date/Time August 05, 2022 5:05 pm [facility] Medical Records Department [address] [place] [address] H&P Exam - Hospitalist 08/05/22 1701 MR#: [id number] Acct: [id number] Name: KADE VILLA Rep #:[id number] : 1995 26 From: Ashley Hirsch DO PCP: Care Physician,No Primary Status :ADM IN Location: [place] [address] HPI - General General Date of Admission: 08/05/22 Date of Service: 08/05/22 Chief Complaint: Desire for detoxification from alcohol HPI Narrative KADE VILLA, is a 26 M who presented to the [facility] at [facility] on 08/05/2022 requesting detox from alcohol. [...] discharge is for readmission into inpatient rehab. [facility] Medical History No acute medical problems Polysubstance [...] % (Auto) 56.8, Lymph % (Auto) 33.2, Barnes% (Auto) 8.3, Eos % (Auto) 0.3, Baso [...] -Full code Charges/Coding Visit Charges Inpatient E&M: 07669 Init Hosp L2 08/05/22 1716 <Electronically signed by Ashley Hirsch DO> Cosigner Signature (if applicable): CC: Dr. Ashley Hirsch DO; No Primary Care Physician~ Signed [facility] Work Phone: History and physical note Author Stan Thomas [facility] March 23, 2023 12:48am Note Date/Time March 23, 2023 12:18am [facility] Medical Records Department [address] [place] [address] H&P Exam - Hospitalist 03/23/23 0017 MR#: [id number] Acct: [id number] Name: KADE VILLA Rep #:[id number] : 1995 27 From: Stan Bullock PCP: Care Physician,No Primary Status :ADM IN Location: [facility] VV182-4 HPI - General General Date of Admission: [...] including hematemesis melena or alcoholic liver disease [facility] Medical History Alcohol abuse Anxiety Asthma Depression [...] % (Auto) 58.3, Lymph % (Auto) 34.2, Barnes% (Auto) 6.3, Eos % (Auto) 0.1, Baso [...] Serum alcohol was highat 212. CIWA monitor. prepress manager consulted.. 2. Chronic nicotine use/cigarette smoking: [...] % (Auto) 58.3, Lymph % (Auto) 34.2, Barnes% (Auto) 6.3, Eos % (Auto) 0.1, Baso [...] Alcohol 212.0 Charges/Coding Visit Charges Inpatient E&M: 90890 Init Hosp L3 03/23/23 0048 <Electronically signed by Stan Thomas MD> Cosigner Signature (if applicable): CC: Dr. Stan Thomas MD; No Primary Care Physician~ Signed [facility] Work Phone: History and physical note Author Jacquie Beckwith [facility] May 01, 2023 5:50am Note Date/Time May 01, 2023 5:3 3am [facility] Medical Records Department [address] [place] [address] H&P Exam - Hospitalist 05/01/23 0532 MR#: [id number] Acct: [id number] Name: KADE VILLA Rep #:[id number] : 1995 27 From: Jacquie Beckwith MD [...] Asthma, Chronic migraines who presents to the [facility] ED on 05/01/23 withlast EtOH intake reported [...] administered phenobarbital 97.2 mg p.o. x 1. [facility] Medical History (Updated 05/01/23 @ 05:48 by [...] Asthma, Chronic migraines who presents to the [facility] ED on 05/01/23 withlast EtOH intake reported [...] type admission. Charges/Coding Visit Charges Inpatient E&M: 89768 Init Hosp L2 05/01/23 0550 <Electronically signed by Jacquie Beckwith MD> Cosigner Signature (if applicable): CC: Dr. Jacquie Beckwith MD; No Primary Care Physician~ Signed [facility] Work Phone: Hospital course Narrative No data available for this section [facility] Hospital Discharge instructions* Attachments The following attachments cannot be sent through Care Everywhere. * Chest Pain, Adult ED ([place]) * Troponin Test ([place]) * Drug Abuse Treatment ([place]) * Alcohol Use Disorder ED ([place]) * Polysubstance Use Disorder ([place]) * Substance Use Disorder ED ([place]) [facility] Additional Instructions Your exam [...] infection permanent disability facial abnormality and even .[facility] Work Phone: Instructions* Attachments The following attachments cannot be sent through Care Everywhere. * Flu Discharge Instructions, Adult ([place]) [facility]narrative)No reason for referral information availableWCleveland Clinic [facility] Work Phone: Chief Complaint and Reason [...] No August 05, 2022 4:09pm Power of Well Logging Operator Mud Analysis No August 05 4:09pm Advance Directive Response Recorded Date/ Time Living Will No August 05, 2022 6:27pm Power of Well Logging Operator Mud Analysis No August 05 6:27pm Advance Directive Response Recorded Date/ Time Living Will No March 22 10:56pm Power of Well Logging Operator Mud Analysis No March 22, 2023 10:56pm Advance Directive Response Recorded Date/ Time Living Will No March 23 024 1:01am Power of Well Logging Operator Mud Analysis No March 23, 2023 1:01am Advance Directive Response Recorded Date/ Time Living Will No May 01, 2023 5:10am Power of Well Logging Operator Mud Analysis No April 30 5:10am Advance Directive Response Recorded Date/ Time Living Will No May 01, 2023 6:45am Power of Well Logging Operator Mud Analysis No April 30 6:45am Advance Directive Response Recorded Date/ Time Living Will No June 19, 2023 11 :38pm Power of Well Logging Operator Mud Analysis No June 19, 2023 11:38pm Advance Directive Response Recorded Date/ Time Do you have a Healthcare Power of Well Logging Operator Mud Analysis? No October 01, 2024 1:52am Advance Directive Response Recorded Date/ Time Do you have a Healthcare Power of Well Logging Operator Mud Analysis? No October 01, 2024 1:52am Do you have a Healthcare Power of Well Logging Operator Mud Analysis? No October 02, 2024 4:09am Family History [...] 02, 2024 End: October 02, 2024 Dr. Colin Colon DO Emergency Provider Active Start: October [...] section and content) DATE CREATED AUTHOR 06/25/2023 [facility] DATE CREATED AUTHOR AUTHOR'S ORGANIZ ATION 06/28/2023 [facility] ([place]) DATE CREATED AUTHOR AUTHOR'S ORGANIZ ATION 08/02/2023 [facility] DATE CREATED AUTHOR AUTHOR'S ORGANIZ ATION 06/26/2024 [facility] DATE CREATED AUTHOR AUTHOR'S ORGANIZ ATION 10/01/2024 [facility] Reason for Visit (unrecogniz ed section [...] BE BASED ON THE PRIMARY CLINICAL RECORDS. [employer] provides no warranty or guarantee of the accuracy or completeness of information in this document.
[2024-10-02] MEDS: 0.9% Normal Saline (1000mL) 1,000 ML 999 ML IV (05:10)
[2024-10-02 05:11] LABS: Hematocrit 42.5 % (40-54); Hemoglobin 15.5 g/dL (13.0-16.5); Immature Granulocytes Count 0.040 X10^3/uL (0.0-0.0); Mean Corp Hgb Conc 36.5 g/dL (32-36); Mean Corpuscular Volume 95.7 fL (80-94); Mean Platelet Vol. 9.9 fl (6.2-12.0); NRBC Flagged by Analyzer 0 % (0-5); Platelet Count 256 K/mm3 (150-450); RBC Distribution Width CV 11.7 % (11.6-14.6); RBC Distribution Width SD 40.2 fl (35.1-43.9); Red Blood Count 4.44 M/mm3 (4.6-6.2); White Blood Count 10.3 K/mm3 (4.4-11.0)
--- NOTE | 2024-10-02 05:12 | EDS_ITS ---
HPI History of Present Illness Chief Complaint: Head Injury Informant: patient and EMS Narrative Narrative: Please see the previous note about the patient's initial presentation. He left AGAINST MEDICAL ADVICE because he wanted to smoke a cigarette. Reportedly after he did this he now wishes to be reevaluated and states that he will not leave again with need to smoke. Patient is a 28-year-old male with past medical history of polysubstance abuse alcohol abuse and tobacco use. He was recently in our hospital for alcohol detox. However he wanted to have a cigarette and was informed he cannot do so in which he received either nicotine gum or a patch. According to the note this was not acceptable for the patient he decided to leave the hospital AGAINST MEDICAL ADVICE on October 01. EMS states that the patient was found outside the police station with signs of trauma to his head/face. Reportedly the patient states he does not know how he sustained the injuries or who called EMS. However with obvious signs of trauma and patient denying any cause for them he was brought in for evaluation. PFSH PFS Medical History Substance abuse Depression Smoker Anxiety and depression Alcohol dependence Asthma Migraines Polysubstance abuse Tobacco abuse Alcohol abuse Home Medications ?Medication ?Instructions ?Recorded ?Last Taken ?Type NK 08/05/22 Unknown History Allergy/AdvReac Type Severity Reaction Status Date / Time No Known Allergies Allergy Verified 10/02/24 04:05 Family History Uncle Alcohol abuse Paternal uncles. Grandfather Alcohol abuse Mother No problems noted. Father No problems noted. Surgical History No history of previous surgery Social History household members: none Smoking Status: Current every day smoker tobacco type: cigarettes and e- cigarettes alcohol intake: current details: 10 24 ounce beers daily and hard liquor shots substance use type: crack/cocaine and amphetamines ROS ROS ED Constitutional Constitutional ED: Denies chills or fever(s) Eyes Eyes: Denies blurry vision or change in vision ENT ENT ED: Reports other Details: Positive facial pain and swelling Cardiovascular Cardiovascular: Denies chest pain, palpitations or racing heartbeat Respiratory/Chest Respiratory/Chest: Denies cough or dyspnea Gastrointestinal Gastrointestinal: Denies abdominal pain, nausea or vomiting Genitourinary Genitourinary ED: Denies dysuria or hematuria Musculoskeletal Musculoskeletal: Denies back pain or neck pain Integumentary Reports Abrasions Neurologic Neurologic: Reports headache(s); Denies paresthesias or weakness Hematologic/Lymphatic Hematologic/Lymphatic: Denies easy bleeding or easy bruising EXAM Physical Exam Const Vital Signs: 10/02/24 04:55 10/02/24 05:11 10/02/24 05:54 Temperature 98.3 F Temperature Source Oral Pulse Rate 100 74 Respiratory Rate 18 18 Respiratory Effort Normal Non-Labored Respiratory Depth Normal Respiratory Pattern Normal Blood Pressure 145/93 H 125/75 H Blood Pressure Mean 110 91 Pulse Ox 97 99 98 Oxygen Delivery Method Room Air Room Air Room Air 10/02/24 06:00 Temperature Temperature Source Pulse Rate 74 Respiratory Rate 14 Respiratory Effort Respiratory Depth Respiratory Pattern Blood Pressure 124/75 H Blood Pressure Mean 91 Pulse Ox 98 Oxygen Delivery Method Room Air Positive well nourished and well developed General Appearance ED: well developed HEENT HEENT Narrative: Patient has significant soft tissue swelling and ecchymosis mainly along the left side of his face around the left orbit, zygomatic arch, bridge of the nose, lower jaw and chin region. There is a area of soft tissue swelling and superficial abrasion along the right lateral portion of the forehead as well. Patient has a open fracture along the middle right of the mandible near tooth #26 No active hemorrhage noted. No airway edema or compromise. No signs of infection noted in the posterior pharynx. No septal hematoma present Eyes EOMs intact bilaterally Eyes Narrative: Pupils are dilated and slightly sluggish to respond to light consistent/concerning for alcohol use There is mild scleral injection noted as well No obvious hyphema noted General Eye ED: Negative for scleral icterus Neck Neck Narrative: No bony deformity or step-off of the cervical spine no midline tenderness to palpation Patient is able to move his neck in all directions without pain Chest Wall palpation of chest normal Chest Narrative: No bony deformity or subcutaneous emphysema noted Resp normal respiratory effort and clear to auscultation bilaterally Cardio regular rate and regular rhythm GI normal to inspection, nondistended, normoactive bowel sounds, non-tender, non- distended and no masses Auscultation: normoactive bowel sounds Back/Spine no CVA tenderness Back/Spine Narrative: No bony deformity or step-off of the thoracic or lumbar spine; no midline tenderness to palpation Extremity normal to inspection Extremity Narrative: Pelvis is stable there is no shortening or external rotation of either lower extremity No obvious signs of long bone injury such as bony deformity or joint effusion Patient is able to move all extremities without pain or difficulty All compartments are soft and compressible going against compartment syndrome Neuro oriented x3, CN's II-XII intact bilaterally and no sensory deficits noted Sensorium / Orientation: alert Motor Exam: strength 5/5 throughout Psych Mood & Affect: depressed Skin Skin Narrative: Soft tissue swelling with ecchymosis to the head/face as documented above MDM MDM MDM Narrative Medical decision making narrative: The patient initially left the hospital AGAINST MEDICAL ADVICE because he wanted to smoke a cigarette. Apparently he did this and made it as far as the nearby gas station and then called EMS once again to come back for evaluation of his pain/trauma. Based on swelling and ecchymosis and deformity to the face there is high likelihood for traumatic subarachnoid or subdural hemorrhage versus cervical compression fracture versus mandibular and/or orbital floor fracture. Therefore CTs of the head cervical spine and face were obtained. CT of the head revealed no acute bleed or skull fracture. CT of the cervical spine revealed no acute compression fracture or burst fracture but there was mild subcutaneous emphysema which would correlate with open fracture to the jaw. CT of the face confirmed bilateral mandibular fractures. The case was discussed with ENT on- call Dr. Rodriguez. He states that these typically need surgical plating as well as oral maxillofacial surgery to wired the jaw shut. He states we do not have the tools necessary to perform that at this center and recommends transfer to a trauma center. The patient was informed of this and states he would prefer to go to [place] versus [place] or [place]. Therefore the case was discussed with Dr. Walter at [facility]. He agrees to accept the patient. Patient will be transfer ER to ER so they can evaluate the patient at that time and decide if further imaging or more emergent surgery is necessary. The patient did have his tetanus status updated and he was given 3.375 g of Zosyn with concern for potential developing infection. As he does have a history of alcohol abuse and his alcohol level is 165 there is concern he will progress to alcohol withdrawal and therefore 100 mg of IV phenobarbital also added. At this time he is hemodynamically stable and has been accepted to the trauma center and therefore we transferred by local squad for further evaluation Lab Data Attestation: I reviewed the patient's lab results. Labs: Laboratory Results - last 24 hr 10/02/24 05:05 WBC 10.3 RBC 4.44 L Hgb 15.5 Hct 42.5 MCV 95.7 H MCH 34.9 H MCHC 36.5 H RDW Std Deviation 40.2 RDW Coeff of Jessica 11.7 Plt Count 256 MPV 9.9 Immature Gran % (Auto) 0.400 Neut % (Auto) 76.7 H Lymph % (Auto) 14.6 L [place] % (Auto) 7.1 Eos % (Auto) 0.5 Baso % (Auto) 0.7 Absolute Neuts (auto) 7.9 H Absolute Lymphs (auto) 1.50 Nucleated RBC % 0 PT 12.0 INR 0.9 APTT 26.0 Sodium 139 Potassium 4.1 Chloride 103 Carbon Dioxide 18.7 L Anion Gap 17 H BUN 4 Creatinine 0.58 L Estim Creat Clear Calc 203.76 Est GFR (MDRD) Non-Af 137 BUN/Creatinine Ratio 7.6 L Glucose 108 H Calcium 8.9 Ethyl Alcohol 165.0 H Radiography Diagnostic Testing: Clinical Impression(s) from Imaging Studies Brain CT 10/02/24 05:15 IMPRESSION: No intracerebral or extra-axial hemorrhage. No acute cerebrovascular insult. If clinical symptoms persist, further evaluation with MRI may be considered as clinically warranted. Reading Location: [place] [address] 10/02/24 05:15 IMPRESSION: Soft tissue emphysema in the left aspect of the neck. No CT evidence of an acute fracture or dislocation. Reading Location: [place] [address] Facial/Sinus 10/02/24 05:15 IMPRESSION: Mandibular right para-symphyseal and left mandibular angle/body fractures with related soft tissue edema and possible left master intramuscular hematoma as detailed. Reading Location: [place] [address] Management Discussion w/another healthcare provider: Physical Therapist Center Manager Discharge Plan Triage Chief Complaint: Head Injury ED Provider: Colin Colon Dx/Rx/DC Orders Clinical Impression: Mandible open fracture, History of alcohol abuse, Tobacco use, Alcohol abuse Prescriptions: No Action NK Primary Care Provider: Care Physician,No Primary Referrals: Care Physician,No Primary [Primary Care Provider] - Print Language: Greek Disposition Disposition: Acute Care Hospital Discharge Location: [facility]
--- NOTE | 2024-10-02 05:15 | CT_ITS ---
PROCEDURE: SINUS/FACIAL BONE 10/02/2024 REASON FOR EXAM: FACIAL TRAUMA / ? OPEN MANDIBLE FRACTURE TECHNIQUE: SINUS/FACIAL BONE Coronal and Sagittal reconstruction series were provided. One or more dose reduction techniques were used (e.g., Automated exposure control, adjustment of the mA and/or kV according to patient size, use of iterative reconstruction technique). RADIATION DOSE SUMMARY: CTDlvol: mGy DLP:mGycm COMPARISON: none FINDINGS: Suboptimal examination quality due to motion artifact. Oblique mildly displaced fracture of the left mandibular body/angle disrupting its alveolar margin at the level of the left lower 2nd molar tooth with surrounding mario-osseous and subcutaneous soft tissue edema and air loculi with swollen edematous left masseter muscle showing air loculi and possible intramuscular hematoma. Another vertical mildly displaced fracture of the mandibular right para- symphyseal disrupting its alveolar margin lateral to the right lower lateral incisor tooth with surrounding soft tissue edema. Intact temporomandibular joints. The nasal bones are intact with no fractures. Left side nasal septum deviation. The scanned paranasal sinuses show intact bony boundaries. Minimal mucosal thickening of the maxillary antra, ethmoidal air cells and sphenoid sinuses. Obliterated osteomeatal units. Patent sphenoethmoidal recesses. The orbital bony boundaries are intact. The orbits have a normal appearance with unremarkable eye globes and extra- ocular muscles. Clear intra-orbital fat planes. The pterygoid plates and pterygopalatine fossa are normal. The zygomatic arches are normal and there is no diastasis of the frontozygomatic suture. CT/Sinus/Facial Bone IMPRESSION: Mandibular right para-symphyseal and left mandibular angle/body fractures with related soft tissue edema and possible left master intramuscular hematoma as detailed. [facility]
--- NOTE | 2024-10-02 05:15 | CT_ITS ---
PROCEDURE: BRAIN/HEAD WITHOUT CONTRAST 10/02/2024 REASON FOR EXAM: INJURY TECHNIQUE: BRAIN/HEAD WITHOUT CONTRAST Coronal and Sagittal reconstruction series were provided. One or more dose reduction techniques were used (e.g., Automated exposure control, adjustment of the mA and/or kV according to patient size, use of iterative reconstruction technique. RADIATION DOSE SUMMARY: CTDlvol: mGy DLP: mGycm COMPARISON: none FINDINGS: The visualized brain parenchyma shows normal appearance. No focal parenchymal abnormalities are demonstrated. Ba-white matter differentiation is maintained. Normal CT appearance of the posterior fossa structures. No intracerebral or extra-axial hemorrhage. Smooth bilateral tentorial and Falcine hyperdensities, possibly artifactual related to the patient hydration status. No midline shifts or deformity. Normal size and configuration of the cerebral ventricles. No definite calvarial fractures. The osseous structures in the skull base are unremarkable. Occipital scalp metallic density noted. CT/Brain/Head without Contrast IMPRESSION: No intracerebral or extra-axial hemorrhage. No acute cerebrovascular insult. If clinical symptoms persist, further evaluati on with MRI may be considered as clinically warranted. Reading [facility] [id number]
--- NOTE | 2024-10-02 05:15 | CT_ITS ---
PROCEDURE: SPINE CERVICAL WITHOUT CONTRAS 10/02/2024 REASON FOR EXAM: INJURY TECHNIQUE: SPINE CERVICAL WITHOUT CONTRAS Coronal and Sagittal reconstruction series were provided. One or more dose reduction techniques were used (e.g., Automated exposure control, adjustment of the mA and/or kV according to patient size, use of iterative reconstruction technique. RADIATION DOSE SUMMARY: CTDlvol: 29.38 mGy DLP: 826 mGycm COMPARISON: None. FINDINGS: Normal craniovertebral junction. Normal anterior atlantoaxial articulation. Normal odontoid process. Normal cervical lordosis. Normal vertebral bodies and posterior osseous elements. C2-3: Normal endplates. Normal disc height and morphology. Normal bilateral uncovertebral and apophyseal joints. Normal central canal and intervertebral neuroforamina. C3-4: Normal endplates. Normal disc height and morphology. Normal bilateral uncovertebral and apophyseal joints. Normal central canal and intervertebral neuroforamina. C4-5: Normal endplates. Normal disc height and morphology. Normal bilateral uncovertebral and apophyseal joints. Normal central canal and intervertebral neuroforamina. C5-6: Normal endplates. Normal disc height and morphology. Normal bilateral uncovertebral and apophyseal joints. Normal central canal and intervertebral neuroforamina. C6-7: Normal endplates. Normal disc height and morphology. Normal bilateral uncovertebral and apophyseal joints. Normal central canal and intervertebral neuroforamina. C7-T1: Normal endplates. Normal disc height and morphology. Normal bilateral uncovertebral and apophyseal joints. Normal central canal and intervertebral neuroforamina. Soft tissue emphysema in the left aspect of the neck. CT/Spine Cervical without Contras IMPRESSION: Soft tissue emphysema in the left aspect of the neck. No CT evidence of an acute fracture or dislocation. Reading [facility]
[2024-10-02 05:19] LABS: Prothrombin Time (Protime)PT. 12.0 SECONDS (11.7-14.9)
[2024-10-02 05:20] LABS: Partial Thromboplast Time 26.0 Seconds (24.1-36.2)
[2024-10-02] MEDS: Piperacil/Tazobactam 3.375 GM in 0.9% Normal Saline (50mL MB+) 50 ML IV (05:30)
[2024-10-02 05:38] LABS: Alcohol, Blood (Medical)-Serum 165.0 mg/dL (<=10.0); Anion Gap 17 (5-15); BUN 4 mg/dL (4-19); BUN/Creat Ratio 7.6 RATIO (10-20); Calcium,Total 8.9 mg/dL (7.6-11.0); Carbon Dioxide 18.7 mmol/L (21.0-32.0); Chloride 103 mmol/L (98-108); Estimated Creatinine Clearance 203.76 ml/min (50-250); Glucose 108 mg/dL (70-99); Potassium 4.1 mmol/L (3.3-5.1)
--- NOTE | 2024-10-02 08:52 | ED.RN ---
THIS NURSE ATTEMPTED TO CALL REPORT ON THE TRAUMA PT WE ARE TRANSFERRING ED TO ED, TREATING AND PUMPING SUPERVISOR ADVISED THIS NURSE THEY DO NOT NEED REPORT FOR ED TO ED.
== END 2024-10-02 08:31 | disposition short-term general hospital (02) ==
PROVIDERS: Emergency Provider Emergency Medicine; Visit Provider Emergency Medicine
DX: S02.601B Fracture of unspecified part of body of right mandible, initial encounter for open fracture (principal); S02.602B Fracture of unspecified part of body of left mandible, initial encounter for open fracture; F10.10 Alcohol abuse, uncomplicated; Y90.6 Blood alcohol level of 120-199 mg/100 ml; Z23 Encounter for immunization; F17.210 Nicotine dependence, cigarettes, uncomplicated; F17.290 Nicotine dependence, other tobacco product, uncomplicated; Z53.21 Procedure and treatment not carried out due to patient leaving prior to being seen by health care provider
CPT/HCPCS: 70450; 70486; 72125; 80048; 82077; 85025; 85610; 85730; 90715; 96361; 96365; 96375; 96376; 99282; 99284; A4216; J2405

== ENCOUNTER 2024-10-18 15:01 | Emergency (ER) | payer MEDICAID, SELFPAY ==
[2024-10-18 15:03] VITALS: BP 122/63; PULSE 112; RESP 18; TEMP 36.9; O2SAT 97; BMI 24.0
--- NOTE | 2024-10-18 15:08 | EX.ED.GENINJ ---
HPI History of Present Illness Chief Complaint: Other, Pain/Inj PFSH PFSH Medical History Substance abuse Depression Smoker Anxiety and depression Alcohol dependence Asthma Migraines Polysubstance abuse Tobacco abuse Alcohol abuse Home Medications ?Medication ?Instructions ?Recorded ?Last Taken ?Type oxycodone 5 mg tablet 5 mg PO Q6H PRN pain 1 day #4 tabs 10/18/24 Unknown Rx Allergy/AdvReac Type Severity Reaction Status Date / Time No Known Allergies Allergy Verified 10/18/24 15:03 Family History Uncle Alcohol abuse Paternal uncles. Grandfather Alcohol abuse Mother No problems noted. Father No problems noted. Surgical History No history of previous surgery Social History household members: none Smoking Status: Current every day smoker tobacco type: cigarettes and e-cigarettes alcohol intake: current details: 10 24 ounce beers daily and hard liquor shots substance use type: crack/cocaine and amphetamines EXAM Physical Exam Const Vital Signs: 10/18/24 15:03 10/18/24 15:22 Temperature 98.4 F Temperature Source Oral Pulse Rate 112 H Respiratory Rate 18 Respiratory Effort Normal Respiratory Pattern Normal Blood Pressure 122/63 H Blood Pressure Mean 82 Pulse Ox 97 Oxygen Delivery Method Room Air [facility] Narrative Medical decision making narrative: HISTORY OF PRESENT ILLNESS: Chief complaint: Jaw pain 28-year-old male history of open mandibular fracture, polysubstance abuse, alcohol abuse, tobacco abuse presents with jaw pain. He states REVIEW OF SYSTEMS: Pertinent positives: Jaw pain Pertinent negatives: Fevers chills vomit PHYSICAL EXAM: Nursing triage notes reviewed, Vital signs reviewed Constitutional: please see mdm HENT: MMM, surgical scars noted over left mandible and right mandible. These are clean dry intact there is no redness, fluctuance induration or drainage. Eyes: Pupils equal round and reactive to light, Extraocular muscles intact Neck: No stridor, no JVD, full neck ROM Lungs: Clear to auscultation, No wheezing or rales. No increased work of breathing, no conversational dyspnea, no accessory muscle use, no nasal flaring. No respiratory distress noted Heart: Regular rate and rhythm, No murmurs, No rubs and No gallops, 2+ distal pulses (radial, femoral, posterior tibial) in all extremities Skin: Surgical scars as above MEDICAL DECISION MAKING: Chief Complaint: please see HPI External records reviewed: Reviewed prior ED visit. Reviewed clinisync. Reviewed prior imaging studies: Reviewed CT scan of the face from 10/02/2024 which showed a right mandibular fracture as well as a left mandibular fracture. Factors affecting care: As per HPI Social determinants of health: Polysubstance abuse History obtained from others: none Consults: none [facility] Narrative: Patient was initially hemodynamically stable, afebrile and nontoxic-appearing. Exam with well-healing surgical scars I was concerned about medication diversion versus medication abuse given his history polysubstance use however he does have a mandibular fracture which is very painful. Provided narcotic pain medicine here for home-going (oxycodone 5 mg for 4 doses). Encouraged Tylenol and ibuprofen as well. Encourage close follow-up with his operating surgeon for additional pain control measures. The patient and/or family, caregivers express understanding. The patient and/or family, caregivers agrees with the plan. Shared decision making: I will have a discussion with the patient and or visitors regarding risk/benefits of further testing or admission. They will be made aware of of the risk/benefits inherent in this decision they will be given the opportunity to voice understanding. Total critical care time today provided was at least 0 minutes. This excludes separately billable procedures. Critical care time (if documented) is secondary to the patient having high probability of clinically significant/life threatening deterioration in the patient's condition which required my urgent intervention. Impression: 1. Mandibular fracture 2. Jaw pain Dispo: Discharge home This note was generated with [employer] dictation software. It may contain incorrect words, spelling, and punctuation that were not noted in review of the chart prior to signing. Discharge Plan Triage Chief Complaint: Other, Pain/Inj ED Provider: Bairon Dee Dx/Rx/DC Orders Clinical Impression: Mandible open fracture Instructions: ED Jaw Fracture Prescriptions: New oxycodone 5 mg tablet 5 mg PO Q6H PRN (Reason: pain) 1 Days Qty: 4 0RF Primary Care Provider: Care Physician,No Primary Referrals: Care Physician,No Primary [Primary Care Provider] - Print Language: Faroese
--- OUTSIDE RECORDS SUMMARY | 2024-10-18 15:40 | XMS RPT_ITS | CCD ---
Author Organization [facility] Care Team Providers Care Sod Farmer Name Role Phone Dr. Fior Ridley Emergency Provider Care Physician, No Primary Primary Care Provider Unavailable Dr. Ashley Hirsch Admit Provider Dr. Ashley Hirsch Attending Provider Dr. Ashley Hirsch Other Provider Dr. Carmelo Albert Attending Provider Dr. Carmelo Albert Other Provider Care Physician, No Primary Primary Care Provider Unavailable MD Daquan Reid Emergency Provider Dr. Stan Thomas Admit Provider [phone] Dr. Stan Thomas Attending Provider [phone] Stan Thomas Other Provider [phone] Care Physician, No Primary Primary Care Provider Unavailable MD Daquan Reid Emergency Provider Dr. Stan Thomas Admit Provider Dr. Stan Thomas Attending Provider Dr. Stan Thomas Other Provider KATYA GRIFFITH MD Consulting Unavailable KATYA GRIFFITH MD Attending Unavailable OLIVIER STRINGER Admitting Unavailab CADENCE Garcia Consulting Unavaila ble No Family, Physician Primary [...] Physician, No Primary Primary Care Provider Unavailable Tang RAYA, Dr. Jacquie Cool Admit Provider Tang RAYA, Dr. Jacquie Cool Other Provider Dr. Rachel Stephen MD Attending Provider Unavailalicia Beckwith MD, Dr. Jacquie Cool Attending Provider Dr. Colin Colon DO Emergency Provider [phone] Dr. Rachel Stephen MD Other Provider Unavailable No, Physician Primary Care Provider Unavailabl e Care Physician, No Primary Primary Care Unava ilable Rachel Stephen Attending Unavailable Jacquie Beckwith Admitting Unavailable Jacquie Beckwith Consulting Unavailable Care Physician, No Primary Primary Care Unava ilable Colin Colon Attending Unavailable Care Physician, No Primary Primary Care Unava ilable Colin Colon Attending Unavailable Care Physician, No Primary Primary Care Unava ilable Jacquie Beckwith Admitting Unavailable Jacquie Beckwith Consulting Unavailable Jacquie Beckwith Attending Unavailable Rachel Stephen Attending Unavailable Rachel Stephen Consulting Unavailable ONE, TRAUMA Attending Unavailable NO, PHYSICIAN Primary Care Unavailable MARILOU VASQUEZ Consulting Unavailabl HOLLI George Admitting Unavailable ONE, TRAUMA Consulting Unavailable LATONYA, JOSUE Consulting Unavailable SYSTEM, PROVIDER NOT IN Referring Unavaila ble ONE, TRAUMA Attending Unavailable NO, PHYSICIAN Primary Care [facility] Consulting Unavaila HOLLI Waldron Admitting Unavailable LATONYA, JOSUE Consulting Unavailable NO, PHYSICIAN Primary Care Unavailable DAWSON PEDROZA Consulting Unavailable KRISTIAN PAREKH Attending Unavailab NORA Garcia Admitting Rosemarie vailable ONE, TRAUMA Consulting Unavailable CORONA GUERRERO II Attending Unavailabl e NO, PHYSICIAN Primary Care Unavailable NO, PHYSICIAN Primary Care Unavailable CADENA, GEOFF MENDOZA Admitting Unavailable CADENA, GEOFF MENDOZA Referring Unavailable JESIC, SHELLIE Admitting Unavailable ONE, TRAUMA Attending Unavailable NO, PHYSICIAN Primary Care Unavailable MARILOU VASQUEZ Consulting Unavailabl e DEPPENKWAN Consulting Unavailable Medications Current Medications Medication Drug Class(es) Dates Sig (Normalized) Sig (Original) acetaminophen 325 mg oral tablet (14 sources) Start: 10-14-2024 End: 10-24-2024 take 2 tablets by mouth every four hours as needed acetaminophen (TYLENOL) 325 MG tablet Take 2 (two) tablets (650 mg total) by mouth every 4 (four) hours as needed . 30 tablet 10/14/2024 3:09 PM EDT 10/14/2024 10/24/2024 Active Start: 10-12-2024 End: 10-14-2024 take 1 tablet by mouth every four hours as needed for pain and headache 650 mg, Oral, Every 4 hours PRN, mild pain, fever 100.4 F or greater, headaches, Starting on Sat10/12/24 at 2152, [] If ketorolac (TORADOL) is ordered and active, use it first for mild pain. Start: 10-08-2024 End: 10-11-2024 take 1 tablet by mouth every four hours 650 mg, Oral, Every 4 hours, First dose (after last modification) on Sat10/09/24 at 0400 Start: 10-04-2024 End: 10-05-2024 take 650 mg by mouth every six hours 650 mg, Oral, Every 6 hours scheduled, First dose on Sat10/05/24 at 0000 Start: 10-02-2024 End: 10-04-2024 take 1 tablet by mouth every six hours as needed for headache 975 mg, Oral, Every 6 hours PRN, headaches, Starting on Sat10/02/24 at 1041 Start: 01-28-2024 End: 02-04-2024 take 1 tablet by mouth every six hours as needed for pain acetaminophen (Tylenol Extra Strength) 500 MG tablet Indications: Influenza A Take 1 tablet (500 mg) by mouth every 6 hours as needed for mild pain (1-3), moderate pain (4-6), headaches or fever for up to 7 days. 28 tablet 01/28/2024 02/04/2024 Active End: 10-11-2024 take 2 tablets by mouth every six hours as needed for pain acetaminophen (TYLENOL) 500 MG tablet Take 2 (two) tablets (1,000 mg total) by mouth every 6 (six) hours as needed for pain . 10/11/2024 Discontinued (Stop Taking at Discharge) chlordiazePOXIDE hydrochloride 25 mg oral capsule (1 source) Benzodiazepine Start: 06-20-2023 End: 07-04-2023 chlordiazePOXIDE 25 mg oral capsule Dose : 25 mg = 1 cap(s), Oral, TID, X 14 day(s), # 42 cap(s), 0 Refill(s), 07/04/23 9:43:00 PM EDT, Pharmacy: [facility], Seizure due to alcohol withdrawal Alcohol dependence, 180.3, cm, 06/20/23 5:41:00 EDT, Height, 95.3, kg, 06/20/23 5:41:00 EDT, Dosing Weight Start Date: 06/20/23 Stop Date: 07/04/23 Status: Ordered cloNIDine hydrochloride 0.1 mg oral tablet (5 sources) Central alpha-2 Adrenergic Agonist take 1 tablet by mouth twice daily cloNIDine (Catapres) 0.1 MG tablet Take 0.1 mg by mouth 2 times daily. Active naloxone (NARCAN) 4 mg/actuation [place] (4 sources) Start: 10-09-2024 naloxone (NARCAN) 4 mg/actuation [place] Administer 1 spray into one nostril for known or suspected opioid overdose. If patient worsens or does not respond, may repeat in 2-3 minutes. . 2 each 1 10/09/2024 Active Start: 10-09-2024 naloxone (NARC AN) 4 mg/actuation [place] Administer 1 spray into one nostril for known or suspected opioid overdose. If patient worsens or does not respond, may repeat in 2-3 minutes. . 2 each 1 10/09/2024 oseltamivir 75 mg oral capsule (1 source) Neuraminidase Inhibitor Start: 01-28-2024 End: 02-02-2024 take 1 capsule by mouth twice daily oseltamivir (Tamiflu) 75 MG capsule Indications: Influenza A Take 1 capsule (75 mg) by mouth 2 times daily for 5 days. 10 capsule 01/28/2024 02/02/2024 Active oxyCODONE hydrochloride 5 mg oral tablet (11 sources) Opioid Agonist Start: 10-14-2024 End: 10-17-2024 oxyCODONE (ROXICODONE) 5 MG immediate release tablet Indications: Fracture of mandible of other specified site, initial encounter for open fracture (HCC) Take 1 (one) tablet (5 mg total) by mouth every 6 (six) hours as needed for pain (Days supply per fill: 3) . 12 tablet 10/14/2024 3:09 PM EDT 10/14/2024 10/17/2024 Active Start: 10-14-2024 End: 10-14-2024 take 10 mg under the tongue every twenty-four hours as needed 10 mg, Sublingual, Once as needed, moderate to severe pain, Pain, Starting on Sat10/14/24 at 1104, For 1 dose, PACU (only), Use first if unable to tolerate oral route. Start: 10-12-2024 End: 10-14-2024 take 1 tablet by mouth every four hours as needed 5 mg, Oral, Every 4 hours PRN, moderate to severe pain, Starting on Sat10/12/24 at 2152 Start: 10-12-2024 End: 10-12-2024 take 5 mg under the tongue every four hours as needed 5 mg, Sublingual, Every 4 hours PRN, moderate to severe pain, Starting on Sat10/12/24 at 1621, For 2 doses Start: 10-09-2024 End: 10-11-2024 take 1 tablet by mouth every four hours as needed 5 mg, Oral, Every 4 hours PRN, moderate to severe pain, Starting on 10/09/24 at 0042 Start: 10-08-2024 End: 10-09-2024 take 1 tablet by mouth every six hours as needed 5 mg, Oral, Every 6 hours PRN, moderate to severe pain, Starting on Kendra 10/08/24 at 1649 Start: 10-04-2024 End: 10-05-2024 take 5 mg under the tongue every four hours as needed 5 mg, Sublingual, Every 4 hours PRN, moderate to severe pain, Starting on 10/04/24 at 2145 Start: 10-04-2024 End: 10-04-2024 take 5 mg under the tongue every six hours as needed 5 mg, Sublingual, Every 6 hours PRN, moderate to severe pain, Starting on 10/04/24 at 1150 Start: 10-04-2024 End: 10-04-2024 take 5 mg under the tongue every twenty-four hours as needed 5 mg, Sublingual, Once as needed, moderate to severe pain, Pain, Starting on 10/04/24 at 0913, For 1 dose, PACU (only), Use first if unable to tolerate oral route. Start: 10-02-2024 End: 10-04-2024 take 5-10 mg by mouth every four hours as needed 5-10 mg, Oral, Every 4 hours PRN (may repeat), moderate to severe pain, Starting on Sat10/02/24 at 1041, Initiate with 5 mg oral every 4 hours prn moderate to severe pain. For unrelieved pain, may repeat 5 mg within 60 minutes of initial dose. If pain is RELIEVED after repeat dose, change to 10 mg every 4 hours prn moderate to severe pain. If pain is UNrelieved after repeat dose, or patient requires dose reduction, call physician. risperiDONE 0.5 mg disintegrating oral tablet (5 sources) Atypical Antipsychotic take 1 tablet by mouth twice daily risperiDONE (RisperDAL M-TAB) 0.5 MG disintegrating tablet Take 0.5 mg by mouth 2 times daily. Active Completed/Discontinued Medications Medication Drug Class(es) Dates Sig (Normalized) Sig (Original) acamprosate calcium 333 mg delayed release oral tablet (12 sources) Start: 10-13-2024 End: 10-14-2024 take 666 mg by mouth three times daily 666 mg, Oral, 3 times daily, First dose on Sat10/13/24 at 1500, DO NOT CRUSH OR CHEW. Start: 10-09-2024 End: 10-11-2024 take 666 mg by mouth three times daily 666 mg, Oral, 3 times daily, First dose on Sat10/09/24 at 1500, DO NOT CRUSH OR CHEW. Start: 10-02-2024 End: 11-12-2024 take 2 tablets by mouth three times daily acamprosate (CAMPRAL) 333 mg tablet Take 2 (two) tablets (666 mg total) by mouth 3 (three) times a day . 180 tablet 10/09/2024 10/13/2024 Discontinued amoxicillin 80 mg/ml / clavulanate 11.4 mg/ml oral suspension (10 sources) Penicillin-class Antibacterial Start: 10-09-2024 End: 10-11-2024 take 1 tablet by mouth every twelve hours 1 tablet, Oral, Every 12 hours scheduled, First dose on Sat10/09/24 at 2100, For 7 days, Indication: Skin/Soft Tissue Infection Start: 10-05-2024 End: 10-28-2024 take 875 mg by mouth every twelve hours amoxicillin-clavulanate (AUGMENTIN) 400- 57 mg/5 mL suspension Take 10.9 mL (875 mg total) by mouth every 12 (twelve) hours for 6 days . Discard remainder 200 mL 10/14/2024 10/14/2024 Discontinued Start: 10-05-2024 End: 10-05-2024 take 875 mg by mouth every twelve hours 875 mg, Oral, Every 12 hours scheduled, First dose on Sat10/05/24 at 0130, For 15 doses, Indication: Other (specify), Indication: mandible fx ampicillin-sulbactam (UNASYN) 3000 mg in sodium chloride (NS) 0.9% 100 mL MBP (1 source) Start: 10-12-2024 End: 10-14-2024 take 3000 mg intravenously every six hours 3,000 mg, Intravenous, at 100 mL/hr, Every 6 hours, First dose on Sat10/12/24 at 1700, Indication: Skin/Soft Tissue Infection bacitracin 0.5 unt/mg / polymyxin b 10 unt/mg topical ointment (1 source) Polymyxin-class Antibacterial Start: 10-14-2024 End: 10-14-2024 apply 1 dose topically three times daily Topical, 3 times daily, First dose on Sat10/14/24 at 1500, Apply to wound on jaw calcium chloride 0.0014 meq/ml / potassium chloride 0.004 meq/ml / sodium chloride 0.103 meq/ml / sodium lactate 0.028 meq/ml injectable solution (1 source) Start: 10-08-2024 End: 10-08-2024 1,000 mL, Intravenous, at 500 mL/hr, Once, On Kendra 10/08/24 at 1445, For 1 dose ceFAZolin 2000 mg injection (2 sources) Cephalosporin Antibacterial Start: 10-03-2024 End: 10-04-2024 take 2000 mg intravenously every eight hours 2,000 mg, Intravenous, at 100 mL/hr, Every 8 hours, First dose on 10/03/24 at 1200, Indication: Open Facial Fractures (no csf leak) Start: 10-02-2024 End: 10-02-2024 2,000 mg, Intravenous, at 10 0 mL/hr, Once, On Sat10/02/24 at 1415, For 1 dose, Pre-Procedure, Administer within 60 minutes prior to incision., Indication (PRE PROCEDURE): Plastics chlorhexidine gluconate 1.2 mg/ml mouthwash (9 sources) Start: 10-12-2024 End: 10-14-2024 15 mL, Swab, 4 times daily, First dose on Sat10/12/24 at 2245, Do Not Swallow Start: 10-08-2024 End: 10-11-2024 15 mL, Swab, 4 times daily, First dose on Sat10/08/24 at 0900, Do Not Swallow Start: 10-05-2024 End: 10-26-2024 take 15 mL by mouth four times daily chlorhexidine (PERIDEX) 0.12 % solution Apply 15 mL to the mouth or throat 4 (four) times a day for 14 days . Do not swallow 840 mL 10/12/2024 10/26/2024 Start: 10-05-2024 End: 10-05-2024 15 mL, Swab, 4 times daily, First dose on Sat10/05/24 at 0900, Do Not Swallow 2 ml diazePAM 5 mg/ml prefilled syringe (1 source) Benzodiazepine Start: 10-04-2024 End: 10-04-2024 5 mg, Intravenous, Once, On Sat10/04/24 at 1850, For 1 dose, VESICANT docusate sodium 50 mg / sennosides, prison 8.6 mg oral tablet (4 sources) Start: 10-13-2024 End: 10-14-2024 take 1 tablet by mouth twice daily 1 tablet, Oral, 2 times daily, First dose on Sat10/13/24 at 0900, Hold for loose stools. Do Not Crush or Chew if administering orally due to bitter taste. May be crushed if given via tube. Start: 10-08-2024 End: 10-11-2024 take 1 tablet by mouth twice daily 1 tablet, Oral, 2 times daily, First dose on Sat10/08/24 at 2100, NOT for abdominal surgery patients. Hold for loose stools. Do Not Crush or Chew if administering orally due to bitter taste. May be crushed if given via tube. Start: 10-02-2024 End: 10-05-2024 take 1 tablet by mouth twice daily 1 tablet, Oral, 2 times daily, First dose on Sat10/04/24 at 2125, NOT for abdominal surgery patients. Hold for loose stools. Do Not Crush or Chew if administering orally due to bitter taste. May be crushed if given via tube. 0.3 ml enoxaparin sodium 100 mg/ml prefilled syringe (4 sources) Low Molecular Weight Heparin Start: 10-13-2024 End: 10-14-2024 inject 30 mg by subcutaneous injection twice daily 30 mg, Subcutaneous, 2 times daily, First dose on Sat10/13/24 at 0900, Administer in abdomen unless otherwise directed by prescriber. Notify physician if patient refuses., Indication: VTE Prophylaxis Start: 10-08-2024 End: 10-11-2024 inject 30 mg by subcutaneous injection twice daily 30 mg, Subcutaneous, 2 times daily, First dose on Sat10/08/24 at 2100, Administer in abdomen unless otherwise directed by prescriber. Notify physician if patient refuses., Indication: VTE Prophylaxis Start: 10-02-2024 End: 10-05-2024 inject 30 mg by subcutaneous injection twice daily 30 mg, Subcutaneous, 2 times daily, First dose on Sat10/04/24 at 2125, Administer in abdomen unless otherwise directed by prescriber. Notify physician if patient refuses., Indication: VTE Prophylaxis 1 ml fentaNYL 0.05 mg/ml injection (2 sources) Opioid Agonist Start: 10-12-2024 End: 10-12-2024 take 50 ug intravenously every hour as needed 50 mcg, Intravenous, Every 1 hour prn, moderate to severe pain, Starting on Sat10/12/24 at 1621, For 2 doses Start: 10-08-2024 End: 10-08-2024 50 mcg, Intravenous, Once, O n Kendra 10/08/24 at 1445, For 1 dose folic acid 1 mg oral tablet (4 sources) Start: 10-13-2024 End: 10-14-2024 take 1 mg by mouth once daily 1 mg, Oral, Daily, First dose on Sat10/13/24 at 1000 Start: 10-08-2024 End: 10-11-2024 take 1 mg by mouth once daily 1 mg, Oral, Daily (in th e afternoon), First dose on Kendra 10/08/24 at 1645 Start: 10-02-2024 End: 10-05-2024 take 1 mg by mouth once daily in the morning 1 mg, Oral, Every morning, First dose on Sat10/04/24 at 2130 gabapentin 100 mg oral capsule (1 source) Anti-epileptic Agent Start: 10-09-2024 End: 10-11-2024 take 10 mL by mouth twice daily 200 mg, Oral, 2 times daily, First dose on Sat10/09/24 at 2100, Capsule may be opened and contents placed down tube, flush tube with 10ml saline. Haloperidol (1 source) Typical Antipsychotic Start: 10-14-2024 End: 10-14-2024 take 1 mg intravenously every twenty-four hours as needed 1 mg, Intravenous, Once as needed, Nausea or vomiting, Starting on Sat10/14/24 at 1104, For 1 dose, PACU (only), Administer if ondansetron (Zofran), promethazine (Phenergan), metoclopromide (REGLAN), prochlorperazine (COMPAZINE) ineffective/not ordered, or as directed by anesthesia, as needed for nausea/vomiting May cause QT interval prolongation. 0.5 ml HYDROmorphone hydrochloride 1 mg/ml prefilled syringe (4 sources) Opioid Agonist Start: 10-04-2024 End: 10-04-2024 0.5 mg, Intravenous, Once, On Sat10/04/24 at 1850, For 1 dose Start: 10-02-2024 End: 10-04-2024 take 0.5-1 mg intravenously every three hours as needed 0.5-1 mg, Intravenous, Every 3 hours PRN (may repeat), moderate to severe pain, Starting on Sat10/02/24 at 1409, Initiate with 0.5 mg IV every 3 hours prn moderate to severe pain. For unrelieved pain, may repeat 0.5 mg within 30 minutes of initial dose. If pain is RELIEVED after repeat dose, change to 1 mg every 3 hours prn moderate to severe pain. If pain is UNrelieved after repeat dose, or patient requires dose reduction, call physician. May use IV for breakthrough pain or if unable to tolerate enteral routes. Start: 10-02-2024 End: 10-02-2024 Intravenous, Code/trauma/sed ation medication, Starting on Sat10/02/24 at 1029 HYDROmorphone (DILAUDID) injection 0.5 mg (1 source) Start: 10-14-2024 End: 10-14-2024 0.5 mg, Intravenous, Every 5 min PRN, Pain, Starting on Sat10/14/24 at 1104, For 6 doses, PACU (only), Give if fentanyl not effective or not ordered. Do not give more than 3 mg total. ibuprofen 600 mg oral tablet (1 source) Nonsteroidal Anti-inflammatory Drug Start: 10-08-2024 End: 10-11-2024 take 1 tablet by mouth every six hours as needed for pain 600 mg, Oral, Every 6 hours PRN, mild pain, Starting on Sat10/08/24 at 0233, Give with Food Do Not Crush or Chew if administering orally due to bitter taste. May be crushed if given via tube. iopamidoL (ISOVUE-370) 370 mg iodine /mL (76 %) injection 150 mL (1 source) Start: 10-02-2024 End: 10-02-2024 150 mL, Intravenous, Once in imaging, contrast, Starting on Sat10/02/24 at 1035, For 1 dose iopamidoL (ISOVUE-370) 370 mg iodine /mL (76 %) injection 75 mL (1 source) Start: 10-08-2024 End: 10-08-2024 75 mL, Intravenous, Once in imaging, contrast, Starting on Sat10/08/24 at 1509, For 1 dose 1 ml ketorolac tromethamine 30 mg/ml injection (3 sources) Nonsteroidal Anti-inflammatory Drug, Cyclooxygenase Inhibitor Start: 10-02-2024 End: 10-05-2024 take 15 mg intravenously every six hours 15 mg, Intravenous, Every 6 hours, First dose on Sat10/05/24 at 1345, For 48 hours lidocaine 0.04 mg/mg medicated patch (1 source) Antiarrhythmic, Amide Local Anesthetic Start: 10-05-2024 End: 10-05-2024 2 patch, Transdermal, Administer over 12 Hours, Daily, First dose on Sat10/05/24 at 0900, Apply to area of maximum pain for 12 hours, then remove patch for 12 hours. Not for use over broken skin. methocarbamol 500 mg oral tablet (3 sources) Muscle Relaxant Start: 10-09-2024 End: 10-11-2024 take 500 mg by mouth three times daily as needed for muscle spasms 500 mg, Oral, 3 times daily PRN, muscle spasms, Starting on Sat10/09/24 at 0043 Start: 10-04-2024 End: 10-05-2024 take 500 mg by mouth three times daily as needed for muscle spasms 500 mg, Oral, 3 times daily PRN, muscle spasms, Starting on Sat10/04/24 at 2120 Start: 10-02-2024 End: 10-02-2024 take 1000 mg by mouth three times daily as needed for muscle spasms 1,000 mg, Oral, 3 times daily PRN, muscle spasms, Starting on Sat10/02/24 at 1041 methocarbamoL (ROBAXIN) injection 1 g (1 source) Start: 10-02-2024 End: 10-04-2024 take 1 g intravenously every eight hours methocarbamoL (ROBAXIN) injection 1 g 1 ml morphine sulfate 4 mg/ml cartridge (1 source) Opioid Agonist Start: 10-04-2024 End: 10-04-2024 take 4 mg intravenously every three hours as needed 4 mg, Intravenous, Every 3 hours PRN, moderate to severe pain, Starting on Sat10/04/24 at 0046 [id number] s gluconate liquid 15 mL (1 source) Start: 10-02-2024 End: 10-04-2024 take 15 mL by mouth once daily 15 mL, Oral, Daily, First dose on Sat10/02/24 at 1600 multivitamin (THERAGRAN) per tablet 1 tablet (3 sources) Start: 10-13-2024 End: 10-14-2024 take 1 tablet by mouth once daily 1 tablet, Oral, Daily, First dose on Sat10/13/24 at 1000 Start: 10-08-2024 End: 10-11-2024 take 1 tablet by mouth once daily 1 tablet, Oral, Chiquita y, First dose on Sat10/08/24 at 1645 Start: 10-05-2024 End: 10-05-2024 take 1 tablet by mouth once daily 1 tablet, Oral, Chiquita y, First dose on Sat10/05/24 at 0900 naloxone (NARCAN) injection 0.1 mg (3 sources) Start: 10-08-2024 End: 10-11-2024 naloxone (NARCAN) injection 0.1 mg Start: 10-04-2024 End: 10-05-2024 naloxone (NARCAN) injection 0.1 mg Start: 10-02-2024 End: 10-04-2024 naloxone (NARCAN) injection 0.1 mg nicotine 2 mg oral lozenge (5 sources) Cholinergic Nicotinic Agonist Start: 10-13-2024 End: 10-14-2024 take 2-4 mg by mouth (buccal) every hour as needed 2-4 mg, Buccal, Every 1 hour prn, smoking cessation, Starting on Sat10/13/24 at 1234, If the patient reports having a cigarette within 30 minutes of waking, give 4mg. If the patient reports having a cigarette more than 30 minutes after waking, give 2mg. May use to supplement nicotine patch therapy. Instruct patient to start by placing 1 lozenge between the cheek and the gum at a time, followed by second lozenge after the first has dissolved Should NOT be chewed or swallowed; allow to slowly dissolve (about 20-30 minutes) Avoid food or drink 15 minutes before, during, or after using lozenge. DO NOT CRUSH OR CHEW. Start: 10-05-2024 End: 10-05-2024 apply 1 dose transdermal route once daily 1 patch, Transdermal, Administer over 24 Hours, Daily, First dose on Sat10/05/24 at 1600, U/P Listed Hazardous Drug. Waste Must Be Disposed in [employer] Start: 10-02-2024 End: 10-04-2024 apply 1 dose transdermal route once daily 1 patch, Transdermal, Administer over 24 Hours, Daily, First dose on Sat10/02/24 at 1530, U/P Listed Hazardous Drug. Waste Must Be Disposed in [employer] Start: 10-02-2024 End: 10-05-2024 take 2-4 mg by mouth (buccal) every hour as needed 2-4 mg, Buccal, Every 1 hour prn, smoking cessation, Starting on Sat10/05/24 at 1346, If the patient reports having a cigarette within 30 minutes of waking, give 4mg. If the patient reports having a cigarette more than 30 minutes after waking, give 2mg. May use to supplement nicotine patch therapy. Instruct patient to start by placing 1 lozenge between the cheek and the gum at a time, followed by second lozenge after the first has dissolved Should NOT be chewed or swallowed; allow to slowly dissolve (about 20-30 minutes) Avoid food or drink 15 minutes before, during, or after using lozenge. DO NOT CRUSH OR CHEW. 2 ml ondansetron 2 mg/ml injection (1 source) Serotonin-3 Receptor Antagonist Start: 10-04-2024 End: 10-04-2024 4 mg, Intravenous, Every 15 min PRN, nausea, vomiting, Starting on Sat10/04/24 at 0913, For 2 doses, PACU (only), Do not give more than 2 doses. Administer first as needed for nausea/vomiting, or as directed by anesthesia ondansetron (ZOFRAN-ODT) disintegrating tablet 4 mg (4 sources) Start: 10-12-2024 End: 10-14-2024 take 1 tablet by mouth every six hours as needed for nausea and vomiting ondansetron (ZOFRAN-ODT) disintegrating tablet 4 mg Start: 10-08-2024 End: 10-11-2024 take 1 tablet by mouth every six hours as needed for nausea and vomiting ondansetron (ZOFRAN-ODT) disintegrating tablet 4 mg Start: 10-04-2024 End: 10-05-2024 take 1 tablet by mouth every six hours as needed for nausea and vomiting ondansetron (ZOFRAN-ODT) disintegrating tablet 4 mg Start: 10-02-2024 End: 10-04-2024 take 1 tablet by mouth every six hours as needed for nausea and vomiting ondansetron (ZOFRAN-ODT) disintegrating tablet 4 mg PHENobarbital 65 mg/ml injectable solution (7 sources) Start: 10-13-2024 End: 10-14-2024 inject 65 mg by intramuscular injection every six hours as needed 65 mg, Intramuscular, Every 6 hours PRN, Two of the following: SBP greater than 160 or DBP greater than 100, Significant agitation (RASS greater than +2), HR greater than 110, Diaphoresis, tremors, Hallucinations, Starting on Sat10/13/24 at 1228, For 102 hours, VESICANT Start: 10-12-2024 End: 10-11-2024 take 1 tablet by mouth every twenty-four hours 32.4 mg, Oral,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 status: - Cervical spine is cl (more content not included)... Normal [facility] OP NOTEon 10-04-2024 OP NOTE Kade Gonzalez [id number] 1995 Attending: Marilou Vasquez MD Marketing Intelligence Analyst: Mode Garcia DO Pre Procedure Diagnosis: Open mandible fracture Post Procedure Diagnosis: Open mandible fracture Procedure or Procedures Performed: 1) open treatment using multiple approaches of mandible fracture including plating and intermaxillary fixation with debridement of fracture site (07021 x 1, 54038) 2) extraction of left molar (63698) Indication for Procedure: This patient has an open mandible fracture. He presents to the OR for treatment. Consent: Informed Consent was obtained prior to intervention. This included review of risks and benefits of the surgery and the option of no intervention. The most common risks of surgery including issues related to wound or wound healing including need for revisions and reoperation due to underlying disease or operative complication were discussed with the consenting libertarian before surgery. Anesthesia: General Complications: None Specimens: None Blood Loss: 10 cc Drains: None Procedure Details: The patient was seen before surgery and was marked. The consent was obtained by me directly. The patient was taken to the operating room and induction and control of airway was performed by anesthesia. The patient was then prepped with appropriate prep solution. I performed a time out. We confirmed name, , site of surgery, type of surgery, anesthesia plan, fire risk, DVT prophylaxis and reviewed antibiotics. Attention was taken to the oral cavity. There was a molar in the fracture line that was obstructing reduction of the fracture. We used osteotome and forceps to remove the entire to the molar and its roots. We were now able to reduce the fracture. We placed MMF screws in the maxilla and mandible. We brought the patient in as near normal occlusion as possible with intermaxillary fixation. We used electrocautery to open the parasymphyseal fracture site with a buccal sulcus incision. The fracture site was exposed and rongeur used to debride the fracture. We were unable to adequately reduce the fracture due to the left ankle fracture and felt we needed to expose the left ankle fracture to reduce the parasymphyseal fracture. We made a resident type incision. The incision was made 3 cm inferior to mandible border. We identified the facial artery and vein which were crossing the fracture site. We ligated these and clipped them. We cut the artery and mobilized all soft tissue of the way. We ensured to elevate the soft tissue in a cephalad manner. We then took an approach to the pterygomasseteric sling to avoid the marginal and tibial nerve. We opened the pterygomasseteric sling and identified the fracture. The fracture was now reduced. We irrigated the fracture site with saline and used a rongeur to remove clot and debris from the wound. We were able to now reduce both the parasymphyseal fracture and the ankle fracture under direct visualization. We then tightened the wires in the mouth to secure the fracture in anatomic position and maintain occlusion. We placed a 2.0 mm plate across the left angle fracture line and secured it with 3 screws on either side of the fracture line. Next with the parasymphyseal fracture hold reduction we placed a 4-hole plate across the fracture on the inferior border and secured with 2 screws on either side of the fracture. The occlusion was appropriate. The fractures appeared anatomically reduced. We irrigated thoroughly with saline. Wires and the mouth were tightened. We closed the intraoral incision with 0 Vicryl. We closed the left-sided extraoral incision with deep Vicryl suture to close the pterygomasseteric sling and a layered skin closure. This completed the procedure. The patient tolerated without issues. I was physically present for the alexander and critical portions of the case. The needle and sponge counts were correct at end of procedure. There was no intraoperative complications and patient was taken to PACU following the surgery without any issues. AUTHENTICATED BY MARILOU VASQUEZ, ON 10/05/2024 07:24:[address] [facility] BASIC METABOLIC PANELon 08-2 Anion gap [Moles/Vol] 16 mmol/L Normal 10-20 [facility] Comment on above: Order Comment: [facility] has implemented the eGFR calculation approach that does not have a coefficient for race that conforms to the NKF-ASN Task Force Recommendations. Performed By: #### [id number] #### [facility] [address] [place] [id number] Pratik Dukes M.D. [id number] Calcium [Mass/Vol] 9.1 mg/dL Normal 8.4-10.2 [facility] Comment on above: Order Comment: [facility] has implemented the eGFR calculation approach that does not have a coefficient for race that conforms to the NKF-ASN Task Force Recommendations. Performed By: #### 4 [id number] #### [facility] [address] [place] [address] Pratik Dukes M.D. [id number] Chloride [Moles/Vol] 99 mmol/L Normal 98-108 [facility] Comment on above: Order Comment: [facility] has implemented the eGFR calculation approach that does not have a coefficient for race that conforms to the NKF-ASN Task Force Recommendations. Performed By: #### 4 [id number] #### [facility] [address] [place] [id number] Pratik Dukes M.D. [id number] Creatinine [Mass/Vol] 0.86 mg/dL Normal 0.50-1.30 [facility] Comment on above: Order Comment: [facility] has implemented the eGFR calculation approach that does not have a coefficient for race that conforms to the NKF-ASN Task Force Recommendations. Performed By: #### 4 [id number] #### [facility] [address] [place] [address] Pratik Dukes M.D. [id number] EGFR 122 mL/min/1.73 m2 Normal >=60 [facility] Comment on above: Order Comment: [facility] has implemented the eGFR calculation approach that does not have a coefficient for race that conforms to the NKF-ASN Task Force Recommendations. Result Comment: Luzma mated GFR was calculated using the 2020 CKD-EPI creatinine equation. Performed By: #### 4 4014 #### [address] [address] Pratik Dukes M.D. [id number] Glucose [Mass/Vol] 80 mg/dL Normal 65-99 [facility] Comment on above: Order Comment: [facility] has implemented the eGFR calculation approach that does not have a coefficient for race that conforms to the NKF-ASN Task Force Recommendations. Performed By: #### 4 [id number] #### [facility] [address] [place] [id number] Pratik Dukes M.D. [id number] HCO3 (Bld) [Moles/Vol] 24 mmol/L Normal 21-32 [facility] Comment on above: Order Comment: [facility] has implemented the eGFR calculation approach that does not have a coefficient for race that conforms to the NKF-ASN Task Force Recommendations. Performed By: #### 4 4014 #### [facility] [address] [place] [address] Prtaik Dukes M.D. [id number] Potassium [Moles/Vol] 3.8 mmol/L Normal 3.5-5.1 [facility] Comment on above: Order Comment: [facility] has implemented the eGFR calculation approach that does not have a coefficient for race that conforms to the NKF-ASN Task Force Recommendations. Performed By: #### 4 4014 #### [facility] [address] [place] [address] Pratik Dukes M.D. [id number] Sodium [Moles/Vol] 135 mmol/L Normal 135-145 [facility] Comment on above: Order Comment: [facility] has implemented the eGFR calculation approach that does not have a coefficient for race that conforms to the NKF-ASN Task Force Recommendations. Performed By: #### 4 4014 #### [place] [id number] Pratik Dukes M.D. [id number] Urea nitrogen [Mass/Vol] 7 mg/dL Low 8-25 [facility] Comment on above: Order Comment: [facility] has implemented the eGFR calculation approach that does not have a coefficient for race that conforms to the NKF-ASN Task Force Recommendations. Performed By: #### 4 4014 #### [address] [address] Pratik Dukes M.D. [id number] Urea nitrogen/Creatinine [Mass ratio] 8.1 mg/mg Low 10.0-20.0 [facility] Comment on above: Order Comment: [facility] has implemented the eGFR calculation approach that does not have a coefficient for race that conforms to the NKF-ASN Task Force Recommendations. Performed By: #### 4 4014 #### [facility] [address] [place], [place] [id number] Pratik Dukes M.D. [id number] Basic metabolic 2000 panelOr dered By: Chava Siu on 08-23-2025 Anion gap [Moles/Vol] 16 mmol/L 10 - 2 0 mmol/L [facility] Calcium [Mass/Vol] 9.1 mg/dL 8.4 - 10. 2 mg/dL [facility] Chloride [Moles/Vol] 99 mmol/L 98 - 10 8 mmol/L [facility] Creatinine [Mass/Vol] 0.86 mg/dL 0.50 - 1.30 mg/dL [facility] GFR/1.73 sq M.predicted CKD-EPI (S/P/Bld) [Vol rate/Area] 122 - PINF [facility] Comment on above: Estimated GFR was ca lculated using the 2020 CKD-EPI creatinine equation. Glucose [Mass/Vol] 80 mg/dL 65 - 99 mg/dL [facility] HCO3 [Moles/Vol] 24 mmol/L 21 - 32 mmol/L [facility] Interpretation and review of laboratory results Abnormal [facility] Potassium [Moles/Vol] 3.8 mmol/L 3.5 - 5.1 mmol/L [facility] Sodium [Moles/Vol] 135 mmol/L 135 - 145 mmol/L [facility] Urea nitrogen [Mass/Vol] 7 mg/dL Low 8 - 25 mg/dL [facility] Urea nitrogen/Creatinine [Mass ratio] 8.1 mg/mg Low 10.0 - 20.0 [facility] has implemented the eGFR calculation approach that does not have a coefficient for race that conforms to the NKF-ASN Task Force Recommendations. [facility] CBCon 10-03-2024 AUTO NRBC 0.0 % Normal [facility] Comment on above: Performed By: #### 4 4019 #### [facility] [address] [place] [address] Pratik Dukes M.D. [id number] AUTO NRBC ABS COUNT 0.00 K/mcL Normal 0.00-0.00 [facility] Comment on above: Performed By: #### 4 4011 #### [facility] [address] [place] [address] Pratik Dukes M.D. [id number] Erythrocyte distribution width (RBC) [Ratio] 12.1 % Normal 11.6-14.8 [facility] Comment on above: Performed By: #### 4 4224 #### [facility] [address] [place] [address] Pratik Dukes M.D. [id number] Hematocrit (Bld) [Volume fraction] 41.7 % Normal 41.0-53.0 [facility] Comment on above: Performed By: #### 4 4014 #### [facility] [address] [place], [place] [id number] Pratik Dukes M.D. [id number] Hemoglobin (Bld) [Mass/Vol] 14.1 g/dL Normal 13.5-17.5 [facility] Comment on above: Performed By: #### 4 4014 #### [facility] [address] [place] [address] Pratik Dukes M.D. [id number] MCH (RBC) [Entitic mass] 33.2 pg Normal 26.0-34.0 [facility] Comment on above: Performed By: #### 4 4014 #### [facility] [address] [place], [place] [id number] Pratik Dukes M.D. [id number] MCV (RBC) [Entitic vol] 98.1 fL Normal 80.0-100.0 [facility] Comment on above: Performed By: #### 4 4014 #### [facility] [address] [place], [place] [id number] Pratik Dukes M.D. [id number] MEAN CORPUSCULAR HEMOGLOBIN CONC 33.8 g/dL Normal 31.0-37.0 [facility] Comment on above: Performed By: #### 4 4014 #### [facility] [address] [place], [place] [id number] Pratik Dukes M.D. [id number] Platelet mean volume (Bld) [Entitic vol] 10.3 fL Normal 9.4-12.4 [facility] Comment on above: Performed By: #### 4 4014 #### [facility] [address] [place] [address] Pratik Dukes M.D. [id number] Platelets (Bld) [#/Vol] 221 10*3/uL Normal 150-400 [facility] Comment on above: Performed By: #### 4 4014 #### [facility] [address] [place] [address] Pratik Dukes M.D. [id number] RBC (Bld) [#/Vol] 4.25 10*6/uL Low 4.50-5.90 [facility] Comment on above: Performed By: #### 4 4014 #### [facility] [address] [place] [address] Pratik Dukes M.D. [id number] WBC (Bld) [#/Vol] 10.68 10*3/uL Normal 4.50-11.00 [facility] Comment on above: Performed By: #### 4 4014 #### [facility] [address] [place] [address] Pratik Dukes M.D. [id number] CBC panel Auto (Bld)on 10-03 Erythrocyte distribution width (RBC) [Entitic vol] 12.1 % 11.6 - 14.8 % [facility] Hematocrit (Bld) [Volume fraction] 41.7 % 41.0 - 53.0 % [facility] Hemoglobin (Bld) [Mass/Vol] 14.1 g/dL 13.5 - 17.5 g/dL [facility] Interpretation and review of laboratory results Abnormal [facility] MCH (RBC) [Entitic mass] 33.2 pg 26.0 - 34.0 pg [facility] MCHC (RBC) [Mass/Vol] 33.8 g/dL 31.0 - 37.0 g/dL [facility] MCV (RBC) [Entitic vol] 98.1 fL 80.0 - 100.0 fL [facility] Nucleated RBC (Bld) [#/Vol] 0 10*3/uL [facility] Nucleated RBC/100 WBC (Bld) [Ratio] 0 % [facility] Platelet mean volume (Bld) [Entitic vol] 10.3 fL 9.4 - 12.4 fL [facility] Platelets (Bld) [#/Vol] 221 10*3/uL [facility] RBC (Bld) [#/Vol] 4.25 10*6/uL Low [facility] ealt WBC (Bld) [#/Vol] 10.68 10*3/uL [facility] DRUGS OF ABUSE SCREEN, URINE on 10-03-2024 AMPHETAMINE SCREEN, URINE Not detected Normal None Detected [facility] Comment on above: Order Comment: Scree n results should be used for treatment purposes only.Specimen will be kept for 2 weeks, if the sample is adequate. Confirmation testing can be initiated by calling the lab within 2 weeks. Result Comment: Urin e Amphetamine Cutoff: < 1000 ng/mL = None Detected Performed By: #### 4 4014 #### [facility] [address] [place] [address] Pratik Dukes M.D. [id number] BARBITURATE SCREEN URINE Positive Abnormal None Detected [facility] Comment on above: Order Comment: Scree n results should be used for treatment purposes only.Specimen will be kept for 2 weeks, if the sample is adequate. Confirmation testing can be initiated by calling the lab within 2 weeks. Result Comment: Urin e Barbiturates Cutoff: < 200 ng/mL = None Detected Performed By: #### 4 4014 #### [facility] [address] [place] [address] Pratik Dukes M.D. [id number] BENZODIAZEPINE SCREEN, URINE Positive Abnormal None Detected [facility] Comment on above: Order Comment: Scree n results should be used for treatment purposes only.Specimen will be kept for 2 weeks, if the sample is adequate. Confirmation testing can be initiated by calling the lab within 2 weeks. Result Comment: Urin e Benzodiazepine Cutoff: < 200 ng/mL = None Detected Performed By: #### 4 4014 #### [facility] [address] [place], [place] [id number] Pratik Dukes M.D. [id number] BUPRENORPHINE, URINE Not detected Normal None Detected [facility] Comment on above: Order Comment: Scree n results should be used for treatment purposes only.Specimen will be kept for 2 weeks, if the sample is adequate. Confirmation testing can be initiated by calling the lab within 2 weeks. Result Comment: Urin e Buprenorphine Cutoff: < 5 ng/mL = None Detected Performed By: #### 4 4014 #### [facility] [address] [place] [address] Pratik Dukes M.D. [id number] CANNABINOID SCREEN URINE Not detected Normal None Detected [facility] Comment on above: Order Comment: Scree n results should be used for treatment purposes only.Specimen will be kept for 2 weeks, if the sample is adequate. Confirmation testing can be initiated by calling the lab within 2 weeks. Result Comment: Urin e Cannabinoids Cutoff: < 50 ng/mL = None Detected Performed By: #### 4 4014 #### [facility] [address] [place] [address] Pratik Dukes M.D. [id number] COCAINE, SCREEN URINE Not detected Normal None Detected [facility] Comment on above: Order Comment: Scree n results should be used for treatment purposes only.Specimen will be kept for 2 weeks, if the sample is adequate. Confirmation testing can be initiated by calling the lab within 2 weeks. Result Comment: Urin e Cocaine Cutoff: < 300 ng/mL = None Detected Performed By: #### 4 4014 #### [facility] [address] [place] [address] Pratik Dukes M.D. [id number] FENTANYL, URINE Not detected Normal None Detected [facility] Comment on above: Order Comment: Scree n results should be used for treatment purposes only.Specimen will be kept for 2 weeks, if the sample is adequate. Confirmation testing can be initiated by calling the lab within 2 weeks. Result Comment: Urin e Fentanyl Cutoff: < 1 ng/mL = None Detected Performed By: #### 4 4014 #### [facility] [address] [place] [address] Pratik Dukes M.D. [id number] METHADONE SCREEN, URINE Not detected Normal None Detected [facility] Comment on above: Order Comment: Scree n results should be used for treatment purposes only.Specimen will be kept for 2 weeks, if the sample is adequate. Confirmation testing can be initiated by calling the lab within 2 weeks. Result Comment: Urin e Methadone Cutoff: < 300 ng/mL = None Detected Performed By: #### 4 4014 #### [facility] [address] [place] [address] Pratik Dukes M.D. [id number] OPIATE SCREEN URINE Not detected Normal None Detected [facility] Comment on above: Order Comment: Scree n results should be used for treatment purposes only.Specimen will be kept for 2 weeks, if the sample is adequate. Confirmation testing can be initiated by calling the lab within 2 weeks. Result Comment: Urin e Opiates Cutoff: < 300 ng/mL = None Detected Performed By: #### 4 4014 #### [facility] [address] [place] [address] Pratik Dukes M.D. [id number] OXYCODONE SCREEN, URINE Positive Abnormal None Detected [facility] Comment on above: Order Comment: Scree n results should be used for treatment purposes only.Specimen will be kept for 2 weeks, if the sample is adequate. Confirmation testing can be initiated by calling the lab within 2 weeks. Result Comment: Urin e Oxycodone Cutoff: < 100 ng/mL = None Detected Performed By: #### 4 4014 #### [facility] [address] [place] [address] Pratik Dukes M.D. [id number] Drugs of Abuse Screen, Urine Ordered By: Axel Chanel on 10-03-2024 Amphetamines Ql (U) Not detected None Detected [facility] Comment on above: Urine Amphetamine Cu toff: < 1000 ng/mL = None Detected Barbiturates Screen Ql (U) Positive Abnormal None Detected [facility] Comment on above: Urine Barbiturates C utoff: < 200 ng/mL = None Detected Benzodiazepines Ql (U) Positive Abnormal None Detected [facility] Comment on above: Urine Benzodiazepine Cutoff: < 200 ng/mL = None Detected Buprenorphine Ql (U) Not detected None Detected [facility] Comment on above: Urine Buprenorphine Cutoff: < 5 ng/mL = None Detected Cannabinoids Screen Ql (U) Not detected None Detected [facility] Comment on above: Urine Cannabinoids C utoff: < 50 ng/mL = None Detected Cocaine Ql (U) Not detected None Detected [facility] Comment on above: Urine Cocaine Cutoff : < 300 ng/mL = None Detected fentaNYL+Norfentanyl Screen Ql (U) Not detected None Detected [facility] Comment on above: Urine Fentanyl Cutof f: < 1 ng/mL = None Detected Interpretation and review of laboratory results Abnormal [facility] Methadone Screen Ql (U) Not detected None Detected [facility] Comment on above: Urine Methadone Cuto ff: < 300 ng/mL = None Detected Opiates Screen Ql (U) Not detected None Detected [facility] Comment on above: Urine Opiates Cutoff : < 300 ng/mL = None Detected oxyCODONE Ql (U) Positive Abnormal None Detected [facility] Comment on above: Urine Oxycodone Cuto ff: < 100 ng/mL = None Detected Screen results shoul d be used for treatment purposes only. Specimen will be kept for 2 weeks, if the sample is adequate. Confirmation testing can be initiated by calling the lab within 2 weeks. [facility] ABORH VERIFICATIONon 025 ABO and Rh group Nom (Bld) Blood group O Rh(D) positive Normal [facility] Comment on above: Performed By: #### 4 8787 #### [facility] [address] [address] Naomi Chapman MD [id number] [facility] ABO and Rh group Nom (Bld) ABO/Rh Verification Normal [facility] Comment on above: Result Comment: Chacorta ent's ABO/Rh is verified. Performed By: #### 4 8787 #### [facility] [address] [address] Naomi Chapman MD [id number] [facility] ABORH Verificationon 025 ABO and Rh group Nom (Bld) Blood group O Rh(D) positive [facility] ABO and Rh group Nom (Bld) ABO/Rh Verification [facility] Comment on above: Patient's ABO/Rh is verified. [facility] ALCOHOL, MEDICALon 5 ALCOHOL MEDICAL 35.0 mg/dL High <10.0 [facility] Comment on above: Performed By: #### 4 4014 #### [facility] [address] [address] Pratik Dukes M.D. [id number] Absolute lymphocyte countOrd ered By: Colin Colon on 10-02-2024 Lymphocytes Auto (Unsp spec) [#/Vol] 1.50 10*3/uL 0.83-4.51 [facility] Absolute neutrophil countOrd ered By: Colin Colon on 10-02-2024 Neutrophils (Bld) [#/Vol] 7.9 10*3/uL High 2.0-7.7 [facility] Activated partial thrombopla stin time (aPTT) in platelet poor plasma by coagulation aOrdered By: Colin Colon on 10-02-2024 aPTT Coag (PPP) [Time] 26.0 s 24.1-36.2 [facility] Alcohol, Blood (Medical)-Ser umon 10-02-2024 SERUM ETOH 165.0 mg/dL High <=10.0 [facility] Comment on above: Result Comment: This test is for medical purposes only. The legal definition of intoxication varies according to local law. Performed By: #### L 100.0100, L300.4310, L501.9100, L500.2500, L300.3900 ####[facility] [address] [place], [address] Alcohol, Medicalon Ethanol [Mass/Vol] 35 mg/dL High NINF - 10 .0 mg/dL [facility] Anion gap in Serum or Plasma Ordered By: Colin Colon on 10-02-2024 Anion gap [Moles/Vol] 17 mmol/L High 5-15 [facility] Automated lymphocyte count a s percentage of total leukocytesOrdered By: Colin Colon on 10-02-2024 Lymphocytes/100 WBC Auto (Unsp spec) 14.6 % Low 19-41 [facility] BASIC METABOLIC PANELon 09-12 Anion gap [Moles/Vol] 20 mmol/L Normal 10-20 [facility] Comment on above: Order Comment: [facility] has implemented the eGFR calculation approach that does not have a coefficient for race that conforms to the NKF-ASN Task Force Recommendations. Performed By: #### 4 6124 #### [facility] [address] [id number] Travis Christensen M.D. [id number] Calcium [Mass/Vol] 8.6 mg/dL Normal 8.4-10.2 [facility] Comment on above: Order Comment: [facility] has implemented the eGFR calculation approach that does not have a coefficient for race that conforms to the NKF-ASN Task Force Recommendations. Performed By: #### 4 6124 #### [facility] [address] [id number] Travis Christensen M.D. [id number] Chloride [Moles/Vol] 104 mmol/L Normal 98-108 [facility] Comment on above: Order Comment: [facility] has implemented the eGFR calculation approach that does not have a coefficient for race that conforms to the NKF-ASN Task Force Recommendations. Performed By: #### 4 6124 #### [facility] [address] [address] Travis Christensen M.D. [id number] Creatinine [Mass/Vol] 0.56 mg/dL Normal 0.50-1.30 [facility] Comment on above: Order Comment: [facility] has implemented the eGFR calculation approach that does not have a coefficient for race that conforms to the NKF-ASN Task Force Recommendations. Performed By: #### 4 6124 #### [facility] [address] [id number] Travis Christensen M.D. [id number] EGFR 139 mL/min/1.73 m2 Normal >=60 [facility] Comment on above: Order Comment: [facility] has implemented the eGFR calculation approach that does not have a coefficient for race that conforms to the NKF-ASN Task Force Recommendations. Result Comment: Luzma mated GFR was calculated using the 2020 CKD-EPI creatinine equation. Performed By: #### 4 6124 #### [facility] [address] [id number] Travis Christensen M.D. [id number] Glucose [Mass/Vol] 93 mg/dL Normal 65-99 [facility] Comment on above: Order Comment: [facility] has implemented the eGFR calculation approach that does not have a coefficient for race that conforms to the NKF-ASN Task Force Recommendations. Performed By: #### 4 6124 #### [facility] [address] [id number] Travis Christensen M.D. [id number] HCO3 (Bld) [Moles/Vol] 19 mmol/L Low 21-32 [facility] Comment on above: Order Comment: [facility] has implemented the eGFR calculation approach that does not have a coefficient for race that conforms to the NKF-ASN Task Force Recommendations. Performed By: #### 4 6124 #### [facility] [address] [address] Travis Christensen M.D. [id number] Potassium [Moles/Vol] 3.9 mmol/L Normal 3.5-5.1 [facility] Comment on above: Order Comment: [facility] has implemented the eGFR calculation approach that does not have a coefficient for race that conforms to the NKF-ASN Task Force Recommendations. Performed By: #### 4 6124 #### [facility] [address] [id number] Travis Christensen M.D. [id number] Sodium [Moles/Vol] 139 mmol/L Normal 135-145 [facility] Comment on above: Order Comment: [facility] has implemented the eGFR calculation approach that does not have a coefficient for race that conforms to the NKF-ASN Task Force Recommendations. Performed By: #### 4 6124 #### [facility] [address] [id number] Travis Christensen M.D. [id number] Urea nitrogen [Mass/Vol] 4 mg/dL Low 8-25 [facility] Comment on above: Order Comment: [facility] has implemented the eGFR calculation approach that does not have a coefficient for race that conforms to the NKF-ASN Task Force Recommendations. Performed By: #### 4 6124 #### [facility] [address] [address] Travis Christensen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 12590 Leukocytes Negative Normal NORMAL: NEGATIVE [facility] Comment on above: Performed By: #### 2 93181 ####[facility],[address] [place] [address] 48369 Nitrite Ql (U) Negative Normal NORMAL: NEGATIVE [facility] Comment on above: Performed By: #### 2 90946 ####[facility],[address] [place] [address] 48283 pH (U) 5 [pH] Normal NORMAL: 5.0-8.0 [facility] Comment on above: Performed By: #### 2 10815 ####[facility],[address] [place] [address] Protein Ql (U) Negative Normal NORMAL: NEGATIVE [facility] Comment on above: Performed By: #### 2 03523 ####[facility],[address] [place] [address] Sp [place] 1.020 Normal NORMAL: 1.010-1.030 [facility] Comment on above: Performed By: #### 2 76959 ####[facility],[address] [place] [address] Specimen Type R Normal [facility] Comment on above: Performed By: #### 2 99019 ####[facility],[address] [place] [address] Urinalysis dipstick W Reflex Microscopic panel (U) NOT INDICATED Normal [facility] Comment on above: Performed By: #### 2 54561 ####[facility],[address] [place] [address] Urobilinog NORM Normal NORMAL: NORMAL [facility] Comment on above: Performed By: #### 2 93585 ####[facility],[address] [place] [address] CBC + DIFFon 09-27-2024 Baso # 0.02 x10EE3/UL Normal 0.00 - 0.10 [facility] Comment on above: Performed By: #### 2 82870 #### [facility],[address] [place] [address] Basophils/100 WBC (Bld) 0.3 % Normal 0.0 - 2.0 [facility] Comment on above: Performed By: #### 2 44921 #### [facility],[address] [place] [address] CBC + DIFF Normal [facility] Comment on above: Result Comment: CBC- COMPLETE BLOOD COUNT Performed By: #### 2 41443 #### [address] [address] EO # 0.13 x10EE3/UL Normal 0.00 - 0.50 [facility] Comment on above: Performed By: #### 2 46709 #### [place] [address] Eosinophils/100 WBC (Bld) 1.4 % Normal 0.0 - 7.0 [facility] Comment on above: Performed By: #### 2 86292 #### [place] [address] Erythrocyte distribution width (RBC) [Ratio] 12.4 % Normal 12.0 - 15.6 [facility] Comment on above: Performed By: #### 2 65030 #### [place] [address] Hematocrit (Bld) [Volume fraction] 44.8 % Normal 40.0 - 52.0 [facility] Comment on above: Performed By: #### 2 47700 #### [place] [id number] Hemoglobin (Bld) [Mass/Vol] 16.4 g/dL Normal 13.0 - 17.5 [facility] Comment on above: Result Comment: RPT H & H CHECK Performed By: #### 2 79729 #### [address] [address] Lymph # 2.78 x10EE3/UL Normal 0.80 - 2.80 [facility] Comment on above: Performed By: #### 2 41404 #### [place] [id number] Lymphocytes/100 WBC (Bld) 29.0 % Normal 20.0 - 45.0 [facility] Comment on above: Performed By: #### 2 26876 #### [facility],[address] [place] [address] MANUAL DIFF N/A [facility] Comment on above: Performed By: #### 2 04097 #### [facility],[address] [place] [address] MCH (RBC) [Entitic mass] 37 pg High 27 - 33 [facility] Comment on above: Performed By: #### 2 09304 #### [facility],[address] [place] [address] MCHC 37 X10 3 High 32 - 36 [facility] Comment on above: Performed By: #### 2 15796 #### [facility],[address] [place] [address] MCV (RBC) [Entitic vol] 100 fL High 81 - 98 [facility] Comment on above: Performed By: #### 2 19773 #### [facility],[address] [place] [address] Wagoner # 0.67 x10EE3/UL Normal 0.20 - 1.00 [facility] Comment on above: Performed By: #### 2 33546 #### [facility],[address] [place] [address] MONOS % 7.0 % Normal 0.0 - 10.0 [facility] Comment on above: Performed By: #### 2 82422 #### [facility],[address] [place] [address] Morphology Isacc (Bld) [Interp] N/A Normal [facility] Comment on above: Performed By: #### 2 35325 #### [facility],[address] [place] [address] Neut # 5.99 x10EE3/UL Normal 1.50 - 7.10 [facility] Comment on above: Performed By: #### 2 55780 #### [facility],[address] [place] [address] 48972 Neutrophils/100 WBC (Bld) 62.4 % Normal 46.0 - 76.0 [facility] Comment on above: Performed By: #### 2 52874 #### [facility],[address] [place] [address] 89128 PLATELET 318 x10EE3/UL Normal 150 - 450 [facility] Comment on above: Performed By: #### 2 85736 #### [facility],[address] [place], [place] [id number] Platelet mean volume (Bld) [Entitic vol] 7.5 fL Normal 6.4 - 10.5 [facility] Comment on above: Result Comment: AUTO MATED DIFFERENTIAL Performed By: #### 2 93695 #### [facility],[address] [place] [address] 23377 RBC 4.50 x 10EE6/UL Normal 4.50 - 6.00 [facility] Comment on above: Performed By: #### 2 64849 #### [facility],[address] [place] [address] 87477 WBC 9.6 x 10EE3/UL Normal 4.5 - 10.8 [facility] Comment on above: Performed By: #### 2 82730 #### [facility],[address] [place] [address] 27956 ED Nursing Noteon 06-24-2024 ED Nursing Note Attempted to call pt three times for triage. Unable to locate pt Normal [facility] BASIC METABOLIC PANELon Anion gap [Moles/Vol] 8 mmol/L Normal 3-13 [facility] Comment on above: Performed By: #### L AB15, [id number], LAB46, LAB62 ####Senior [employer] Unix Engineer: DIONNA JIMENEZ ([id number])[facility] ([address] Calcium [Mass/Vol] 8.4 mg/dL Normal 8.4-10.2 [facility] Comment on above: Performed By: #### L AB15, [id number], LAB46, LAB62 ####Senior Linux Unix Engineer: DIONNA JIMENEZ ([id number])[facility])[address] [place] [address] Chloride [Moles/Vol] 108 mmol/L High 98-107 [facility] Comment on above: Performed By: #### L AB15, [id number], LAB46, LAB62 ####Senior Linux Unix Engineer: DIONNA JIMENEZ ([id number])[facility])[address] [place] [address] CO2 [Moles/Vol] 21 mmol/L Low 22-29 [facility] Comment on above: Performed By: #### L AB15, [id number], LAB46, LAB62 ####Senior Linux Unix Engineer: DIONNA JIMENEZ ([id number])[facility])[address] [place] [address] Creatinine [Mass/Vol] 0.67 mg/dL Low 0.72-1.25 [facility] Comment on above: Performed By: #### L AB15, [id number], LAB46, LAB62 ####Senior Linux Unix Engineer: DIONNA JIMENEZ ([id number])[facility])[address] [place] [address] GLOMERULAR FILTRATION RATE ML/MIN/1.73 SQ M.PREDICTED >90.0 Normal >60.0 [facility] Comment on above: Result Comment: Calc ulation based on the Chronic Kidney Disease Epidemiology Collaboration (CKD-EPI) equation refit without adjustment for race Performed By: #### L AB15, [id number], LAB46, LAB62 ####Senior [employer] Unix Engineer: DIONNA JIMENEZ ([id number])[facility])[address] [place] [address] Glucose [Mass/Vol] 113 mg/dL High 74-100 [facility] Comment on above: Performed By: #### L AB15, [id number], LAB46, LAB62 ####Senior Linux Unix Engineer: DIONNA [id number])[facility] ([facility])[address] [place] [address] Potassium [Moles/Vol] 3.5 mmol/L Normal 3.5-5.1 [facility] Comment on above: Result Comment: [facility] potassium values may be up to 0.5 mmol/L lower than serum values. Performed By: #### L AB15, [id number], LAB46, LAB62 ####Senior Linux Unix Engineer: DIONNA JIMENEZ ([id number])[facility] [place] [address] Sodium [Moles/Vol] 137 mmol/L Normal 136-145 [facility] Comment on above: Performed By: #### L AB15, [id number], LAB46, LAB62 ####Senior Linux Unix Engineer: DIONNA JIMENEZ ([id number])[facility] ([facility])[address] [place] [address] Urea nitrogen [Mass/Vol] 5 mg/dL Low 8-21 [facility] Comment on above: Performed By: #### L AB15, [id number], LAB46, LAB62 ####Senior Linux Unix Engineer: DIONNA JIMENEZ ([id number])[facility])[address] [place] [address] Basic metabolic 1998 panelon 06-11-2024 Anion gap [Moles/Vol] 8 mmol/L 3 - 13 mmol/L [facility] Calcium [Mass/Vol] 8.4 mg/dL 8.4 - 10. 2 mg/dL [facility] [employer] Chloride [Moles/Vol] 108 mmol/L High 98 - 10 7 mmol/L [facility] CO2 [Moles/Vol] 21 mmol/L Low 22 - 29 mmol/L [facility] Creatinine [Mass/Vol] 0.67 mg/dL Low 0.72 - 1.25 mg/dL [facility] GFR/1.73 sq M.predicted (S/P/Bld) [Vol rate/Area] - PINF [facility] Comment on above: Calculation based on the Chronic Kidney Disease Epidemiology Collaboration (CKD-EPI) equation refit without adjustment for race Glucose [Mass/Vol] 113 mg/dL High 74 - 100 mg/dL [facility] Potassium [Moles/Vol] 3.5 mmol/L 3.5 - 5.1 mmol/L [facility] Comment on above: Plasma potassium steph ues may be up to 0.5 mmol/L lower than serum values. Sodium [Moles/Vol] 137 mmol/L 136 - 145 mmol/L [facility] Urea nitrogen [Mass/Vol] 5 mg/dL Low 8 - 21 mg/dL [facility] CBC W Auto Differential pane l (Bld)Ordered By: Ludwin Cordova on 06-11-2024 Basophils (Bld) [#/Vol] 0.1 10*3/uL 0.0 - 0.2 10*3/uL [facility] Basophils/100 WBC (Bld) 1.9 % 0.0 - 2.0 % [facility] Eosinophils (Bld) [#/Vol] 0.1 10*3/uL 0.0 - 0.5 10*3/uL [facility] Eosinophils/100 WBC (Bld) 2.3 % 0.0 - 6.0 % [facility] Erythrocyte distribution width (RBC) [Ratio] 12.7 % 11.5 - 15.0 % [facility] Hematocrit (Bld) [Volume fraction] 41.5 % 40.0 - 52.0 % [facility] Hemoglobin (Bld) [Mass/Vol] 15.4 g/dL 13.0 - 18.0 g/dL [facility] Immature granulocytes (Bld) [#/Vol] 0 10*3/uL NINF - 0.1 10*3/uL [facility] [employer] Immature granulocytes/100 WBC (Bld) 0.2 % 0.0 - 2.0 % [facility] Interpretation and review of laboratory results Abnormal [facility] Lymphocytes (Bld) [#/Vol] 1.8 10*3/uL 1.0 - 4.3 10*3/uL [facility] Lymphocytes/100 WBC (Bld) 34.8 % 15.0 - 45.0 % [facility] MCH (RBC) [Entitic mass] 33.7 pg 26.0 - 34.0 pg [facility] MCHC (RBC) [Mass/Vol] 37.1 % High 30.5 - 36.0 % [facility] MCV (RBC) [Entitic vol] 90.8 fL 77.0 - 99.0 fL [facility] Monocytes (Bld) [#/Vol] 0.5 10*3/uL 0.0 - 0.9 10*3/uL [facility] Monocytes/100 WBC (Bld) 9.1 % 5.0 - 13.0 % [facility] Neutrophils (Bld) [#/Vol] 2.7 10*3/uL 1.8 - 7.5 10*3/uL [facility] Neutrophils/100 WBC (Bld) 51.7 % 38.0 - 82.0 % [facility] Nucleated RBC/100 WBC (Bld) [Ratio] 0 % [facility] Platelet mean volume (Bld) [Entitic vol] 9.8 fL 9.0 - 12.7 fL [facility] Platelets (Bld) [#/Vol] 226 10*3/uL 140 - 440 10*3/uL [facility] RBC (Bld) [#/Vol] 4.57 10*6/uL 4.40 - 5.9 0 10*6/uL [facility] WBC (Bld) [#/Vol] 5.2 10*3/uL 3.6 - 10.7 10*3/uL [facility] CBC WITH AUTO DIFFERENTIALon 06-11-2024 Basophils (Bld) [#/Vol] 0.1 10*3/uL Normal 0.0-0.2 [facility] Comment on above: Performed By: #### L [id number] #### Senior [employer] Unix Engineer: DIONNA JIMENEZ ([id number]) [facility] ([facility]) [address] [place] [address] Basophils/100 WBC (Bld) 1.9 % Normal 0.0-2.0 [facility] Comment on above: Performed By: #### L [id number] #### Senior [employer] Engineer: DIONNA [id number]) [facility] ([facility]) [address] [place] [address] [place] Eosinophils (Bld) [#/Vol] 0.1 10*3/uL Normal 0.0-0.5 [facility] Comment on above: Performed By: #### L [id number] #### Senior [employer] Engineer: DIONNA [id number]) [facility] ([facility]) [address] [place] [address] Eosinophils/100 WBC (Bld) 2.3 % Normal 0.0-6.0 [facility] Comment on above: Performed By: #### L [id number] #### Senior [employer] Engineer: DIONNA JIMENEZ ([id number]) [facility]) [address] [place] [address] Erythrocyte distribution width (RBC) [Ratio] 12.7 % Normal 11.5-15.0 [facility] Comment on above: Performed By: #### L [id number] #### Senior [employer] Engineer: DIONNA JIMENEZ ([id number]) [facility]) [address] [place] [address] Hematocrit (Bld) [Volume fraction] 41.5 % Normal 40.0-52.0 [facility] Comment on above: Performed By: #### L [id number] #### Senior [employer] Unix Engineer: DIONNA JIMENEZ ([id number]) [facility]) [address] [place] [address] Hemoglobin (Bld) [Mass/Vol] 15.4 g/dL Normal 13.0-18.0 [facility] Comment on above: Performed By: #### L [id number] #### Senior [employer] Unix Engineer: DIONNA JIMENEZ ([id number]) [facility]) [address] [place] [address] IMMATURE GRANS % 0.2 % Normal 0.0-2.0 [facility] Comment on above: Performed By: #### L [id number] #### Senior [employer] Unix Engineer: DIONNA JIMENEZ ([id number]) [facility]) [address] [place] [address] IMMATURE GRANS ABSOLUTE 0.0 10*3/uL Normal <0.1 [facility] Comment on above: Performed By: #### L [id number] #### Senior [employer] Unix Engineer: DIONNA JIMENEZ ([id number]) [facility]) [address] [place] [address] Lymphocytes (Bld) [#/Vol] 1.8 10*3/uL Normal 1.0-4.3 [facility] Comment on above: Performed By: #### L [id number] #### Senior [employer] Unix Engineer: DIONNA JIMENEZ ([id number]) [facility]) [address] [place] [address] Lymphocytes/100 WBC (Bld) 34.8 % Normal 15.0-45.0 [facility] Comment on above: Performed By: #### L [id number] #### Senior [employer] Unix Engineer: DIONNA JIMENEZ ([id number]) [facility] ([facility]) [address] [place] [address] MCH (RBC) [Entitic mass] 33.7 pg Normal 26.0-34.0 [facility] Comment on above: Performed By: #### L [id number] #### Senior [employer] Unix Engineer: DIONNA JIMENEZ ([id number]) [facility]) [address] [place] [address] MCHC 37.1 % High 30.5-36.0 [facility] Comment on above: Performed By: #### L [id number] #### Senior [employer] Unix Engineer: DIONNA JIMENEZ ([id number]) [facility]) [address] [place] [address] MCV (RBC) [Entitic vol] 90.8 fL Normal 77.0-99.0 [facility] Comment on above: Performed By: #### L [id number] #### Senior Linux Unix Engineer: DIONNA JIMENEZ ([id number]) [facility]) [address] [place] [address] Monocytes (Bld) [#/Vol] 0.5 10*3/uL Normal 0.0-0.9 [facility] Comment on above: Performed By: #### L [id number] #### Senior [employer] Unix Engineer: DIONNA JIMENEZ ([id number]) [facility]) [address] [place] [address] Monocytes/100 WBC (Bld) 9.1 % Normal 5.0-13.0 [facility] Comment on above: Performed By: #### L [id number] #### Senior [employer] Unix Engineer: DIONNA JIMENEZ ([id number]) [facility] [address] [place] [address] NEUTROPHILS ABSOLUTE 2.7 10*3/uL Normal 1.8-7.5 [facility] Comment on above: Performed By: #### L [id number] #### Senior [employer] Unix Engineer: DIONNA JIMENEZ ([id number]) [facility] ([facility]) [address] [place] [address] Neutrophils/100 WBC (Bld) 51.7 % Normal 38.0-82.0 [facility] Comment on above: Performed By: #### L [id number] #### Senior [employer] Unix Engineer: DIONNA JIMENEZ ([id number]) [facility] ([facility]) [address] [place] [address] NRBC 0.0 /100 WBCs Normal 0.0-2.0 [facility] Comment on above: Performed By: #### L [id number] #### Senior [employer] Unix Engineer: DIONNA JIMENEZ ([id number]) [facility] ([facility]) [address] [place] [address] Platelet mean volume (Bld) [Entitic vol] 9.8 fL Normal 9.0-12.7 [facility] Comment on above: Performed By: #### L [id number] #### Senior Linux Unix Engineer: DIONNA JIMENEZ ([id number]) [facility] ([facility]) [address] [place] [address] [place] Platelets (Bld) [#/Vol] 226 10*3/uL Normal 140-440 [facility] Comment on above: Performed By: #### L [id number] #### Senior Linux Unix Engineer: DIONNA JIMENEZ ([id number]) [facility] ([facility]) [address] [place] [address] [place] RBC (Bld) [#/Vol] 4.57 10*6/uL Normal 4.40-5.90 [facility] Comment on above: Performed By: #### L [id number] #### Senior Linux Unix Engineer: DIONNA JIMENEZ ([id number]) [facility] ([address] WBC (Bld) [#/Vol] 5.2 10*3/uL Normal 3.6-10.7 [facility] Comment on above: Performed By: #### L [id number] #### Senior Linux Unix Engineer: DIONNA JIMENEZ ([id number]) [facility]) [address] [place] [address] CKon 06-11-2024 CK [Catalytic activity/Vol] 247 U/L High 30-185 [facility] Comment on above: Performed By: #### L AB15, [id number], LAB46, LAB62 ####Senior [employer] Unix Engineer: DIONNA JIMENEZ ([id number])[facility])[address] [place] [address] DRUGS OF ABUSEon 06-11-2024 AMPHETAMINE SCREEN Positive Normal [facility] Comment on above: Performed By: #### L [id number] ####Senior [employer] Engineer: DIONNA JIMENEZ ([id number])[facility])[address] [place] [address] BARBITURATES SCREEN Positive Normal [facility] Comment on above: Performed By: #### L [id number] ####Senior [employer] Unix Engineer: DIONNA JIMENEZ ([id number])[address] BENZODIAZEPINE SCREEN Negative Normal [facility] Comment on above: Performed By: #### L [id number] ####Senior [employer] Unix Engineer: DIONNA JIMENEZ ([id number])[address] COCAINE METAB. SCREEN Negative Normal [facility] Comment on above: Performed By: #### L [id number] ####Senior Linux Unix Engineer: DIONNA JIMENEZ ([id number])[address] FENTANYL SCREEN, UR QUAL Negative Normal [facility] Comment on above: Result Comment: [...] under separate order. Performed By: #### L [id number] ####Senior [employer] Unix Engineer: DIONNA JIMENEZ ([phone])[address] METHADONE SCREEN Negative [facility] Comment on above: Performed By: #### L [id number] ####Senior Linux Unix Engineer: DIONNA JIMENEZ ([id number])[address] OPIATES SCREEN Negative [facility] Comment on above: Performed By: #### L [id number] ####Senior Linux Unix Engineer: DIONNA JIMENEZ ([id number])[address] OXYCODONE SCREEN Negative [facility] Comment on above: Performed By: #### L [id number] ####Senior Linux Unix Engineer: DIONNA JIMENEZ ([id number])[address] PHENCYCLIDINE SCREEN Negative Normal [facility] Comment on above: Performed By: #### L [id number] ####Senior Linux Unix Engineer: DIONNA JIMENEZ ([id number])[address] ECG 12-LEADon 06-11-2024 ECG 12-LEAD IMPRESSION: Pacemaker spikes or artifacts Sinus rhythm Electronically Signed On 06-11-2024 10:13:28 EDT by Mike Wright [facility] ED Nursing Noteon 06-11-2024 ED Nursing Note Report given to Larry broderick RN. Normal [facility] ED Nursing Note Pt ambulated independently back and forth to the restroom. 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 Pt currently on property assessment monitor; sts that the pain starts in the L shoulder and radiates into the neck and then jaw. Normal [facility] ED Nursing Note Pt heading to xray w [facility] transport. [facility] ED Provider Noteon ED Provider Note EMERGENCY DEPARTMENT ENCOUNTER Pt Name: Kade Barrera Birthdate 1995 Date of evaluation: 06/11/2024 ED Provider: Easton Dahl, GLOVE FORMER - SEWAGE SCREEN OPERATOR Patient seen independently within my scope [...] noted Psychia (more content not included)... Normal [facility] ETHANOLon 06-11-2024 ETHANOL IN SER/PLAS <10 Normal <10 [facility] Comment on above: Result Comment: ORDE R COMMENTS: CIGARETTE PACKER depression is seen >100 mg/dL. NOTE: This result is for medical treatment only. Analysis performed using non-forensic procedures. Performed By: #### L AB15, [id number], LAB46, LAB62 ####Senior Linux Unix Engineer: DIONNA JIMENEZ ([id number])[address] Ethanol (Bld) [Mass/Vol]on 0 06-11-2024 Ethanol [Mass/Vol] mg/dL NINF - 10 mg/dL [facility] Interpretation and review of laboratory results Normal [facility] CIGARETTE PACKER depression is se en >100 mg/dL. NOTE: This result is for medical treatment only. Analysis performed using non-forensic procedures. [facility] HIGH SENSITIVITY TROPONIN, S ERIAL BASELINEon 06-11-2024 TROPONIN HS SERIAL BASELINE <3 Normal <=35 [facility] Comment on above: Result Comment: In i ndividuals presenting with symptoms > 2h, a baseline troponin <= 5 ng/L suggests acute cardiac injury is unlikely and further serial testing is generally not indicated. Performed By: #### L AB15, [id number], LAB46, LAB62 ####Senior Linux Unix Engineer: DIONNA JIMENEZ ([id number])[facility] Laboratory - Chemistry and C hemistry - challengeon 06-11-2024 CK [Catalytic activity/Vol] 247 U/L High 30 - 185 U/L [facility] Laboratory - Drug toxicology on 06-11-2024 Amphetamines Screen method >1000 ng/mL Ql (U) Positive [facility] [employer] Barbiturates Screen method >200 ng/mL Ql (U) Positive [facility] [employer] Benzodiazepines Ql (U) Negative [facility] Methadone Screen Ql (U) Negative S [facility] Opiates Screen Ql (U) Negative [facility] oxyCODONE Ql (U) Negative [facility] [employer] Phencyclidine Ql (U) Negative [facility] [employer] No Panel InformationOrdered By: Mike Wright on 06-11-2024 P [place] 67 degrees [facility] Work Phone: NV Interval 139 ms [facility] Work Phone: QRS [place] 80 degrees [employer] Work Phone: QRSD Interval 95 ms [facility] Work Phone: QT Interval 334 ms [employer] Work Phone: QTC Interval 418 ms [employer] Work Phone: [phone] T Wave [place] 52 degrees [employer] Work Phone: [phone] [employer] Work Phone: No Panel Informationon 06-11 Pacemaker spikes or artifacts Sinus rhythm Electronically Signed On 06-11-2024 10:13:28 EDT by Mike Wright CV Mike Angela MD - 06/11/2024 IMPRESSION: Pacemaker spikes or artifacts Sinus rhythm Electronically Signed On 06-11-2024 10:13:28 EDT by Mike Wright [facility] Interpretation and review of laboratory results Normal [facility] Troponin HS Serial Baseline ng/L NINF - 35 ng/L [facility] Comment on above: In individuals prese nting with symptoms > 2h, a baseline troponin <= 5 ng/L suggests acute cardiac injury is unlikely and further serial testing is generally not indicated. [facility] [employer] Interpretation and review of laboratory results Abnormal [facility] COCAINE METAB. SCREEN Negative [facility] FENTANYL SCREEN, UR QUAL Negative [facility] The expected value f or all [...] is needed, request confirmation under separate order. [facility] Vital signsOrdered By: Mike Wright on 06-11-2024 Heart rate 94 /min bpm [facility] Work Phone: XR Chest 2 Viewson 1. No evidence of an acute cardiopulmonary process. Report Dictated on Electronically Signed By: Jovanni Garcia MD Electronically Signed Date/Time: 06/11/2024 5:00 AM EDT [facility] Patient Name: KADE BARRERA : 1995 [...] bones and soft tissues are grossly unremarkable. [facility] Jovanni Garcia MD - 06/11/2024 Patient [...] Signed Date/Time: 06/11/2024 5:00 AM EDT [facility] Radiology Study observation (narrative) [facility] XR Chest 2 ViewsOrdered By: Jovanni Garcia on 06-11-2024 [facility] Work Phone: ED Nursing Noteon 06-10-2024 ED Nursing Note Pt did not want to w ait to be seen. Pt seen walking out of ED. Pt A&OX4. Steady gait noted. No IV access obtained during visit. Normal [facility] ED Nursing Note Pt states he called poison control due to mixing alcohol and ice. Pt states he has been drinking beer all day. Normal [facility] ED Provider Noteon ED Provider Note Patient left without being seen after initial triage by nursing staff. As such, I did not participate in the care of this patient. Danita Barcenas PA-C 06/11/24 0118 Normal [facility] AMB POC COVID-19 COVon 01-27 Interpretation and review of laboratory results Normal [facility] SARS-CoV-2 (COVID-19) RNA DOMINIC+non-probe Ql (Nph) Negative Negative [facility] AMB POC RAPID INFLUENZA DNA/ RNAon 01-28-2024 Inflenza A Ag Positive [facility] Influenza B Ag Negative [facility] Interpretation and review of laboratory results Abnormal [facility] Office Visiton 01-28-2024 Follow-up visit [id number] Kade Barrera 1995 M Date Provider Department Center 01/28/2024 [id number] RETANA MG RYAN None No family history on file Level of Service:96176 [place] OFFICE/OUTPATIENT ESTABLISHED LOW MDM 20 MIN Reason for Visit and Comments: URI [115] - Cough /Body ache/ migraine/stuffy nose /pt stated that he started new medication yesterday and that when he started feeling sick. Normal [facility] Progress Noteon 01-28-2024 Progress Note [facility] [address] [facility] [address] Dept: [phone] Dept Loc: [phone] Subjective Kade Barrera is a 28 y.o. [...] as words (more content not included)... Normal [facility] .Auto Diffon 06-20-2023 Basophil, Absolute 0.1 10 3/mcL Normal 0.0-0.2 [facility] ([place]) Comment on above: Performed By: #### A RIVERA IBARRA, CBC, ALC, ADIFF, CMP, GFR #### [address] [address] Basophils/100 WBC (Bld) 1.0 % Normal 0.0-2.5 A [facility] ([place]) Comment on above: Performed By: #### A RIVERA IBARRA, CBC, ALC, ADIFF, CMP, GFR #### [address] [address] Eosinophil, Absolute 0.0 10 3/mcL Normal 0.0-0.4 [facility] ([place]) Comment on above: Performed By: #### A RIVERA IBARRA, CBC, ALC, ADIFF, CMP, GFR #### [address] [address] Eosinophils/100 WBC (Bld) 0.5 % Normal 0.0-7.0 [facility] ([place]) Comment on above: Performed By: #### A RIVERA IBARRA, CBC, ALC, ADIFF, CMP, GFR #### [address] [address] Lymphocyte, Absolute 2.4 10 3/mcL Normal 0.8-3.9 [facility] ([place]) Comment on above: Performed By: #### A RIVERA IBARRA, CBC, ALC, ADIFF, CMP, GFR #### [address] [address] Lymphocytes/100 WBC (Bld) 29.4 % Normal 10.0-50.0 [facility] ([place]) Comment on above: Performed By: #### A RIVERA IBARRA, CBC, ALC, ADIFF, CMP, GFR #### [address] [address] Monocyte, Absolute 0.6 10 3/mcL Normal 0.2-1.0 [facility] ([place]) Comment on above: Performed By: #### A RIVERA IBARRA, CBC, ALC, ADIFF, CMP, GFR #### [address] [address] Monocytes/100 WBC (Bld) 7.6 % Normal 1.7-13.0 A [facility] ([place]) Comment on above: Performed By: #### A RIVERA IBARRA, CBC, ALC, ADIFF, CMP, GFR #### [address] [address] Neutrophils/100 WBC (Bld) 61.5 % Normal 37.0-80.0 [facility] ([place] Comment on above: Performed By: #### A RIVERA IBARRA, CBC, ALC, ADIFF, CMP, GFR #### [address] [address] .GFRon 06-20-2023 GFR 96 ml/min/1.73sqm Normal [facility] ([place] Comment on above: Result Comment: GFR Population [...] RIVERA IBARRA, CBC, ALC, ADIFF, CMP, GFR ####[place] [id number] [place], [place] [address] GFR Non- 79 ml/min/1.73sqm Normal [facility] ([place] Comment on above: Result Comment: GFR Population [...] RIVERA IBARRA, CBC, ALC, ADIFF, CMP, GFR ####[address] [place], [place] [address] .MDWon 06-20-2023 Monocyte Distribution Width 18.60 Normal 0.00-20.00 [facility] ([place]) Comment on above: Result Comment: For ED adult patients suspected of sepsis, MDW<=20.0 does not rule out sepsis or risk of sepsis Performed By: #### A RIVERA IBARRA, CBC, ALC, ADIFF, CMP, GFR #### [address] [address] .NEUABSon 06-20-2023 Neutrophil, Absolute 5.0 10 3/mcL Normal 2.9-6.2 [facility] ([place]) Comment on above: Performed By: #### A RIVERA IBARRA, CBC, ALC, ADIFF, CMP, GFR #### [address] [address] Rob 06-20-2023 Ethanol Level <3 Normal 0-3 [facility] ([place] Comment on above: Performed By: #### A RIVERA IBARRA, CBC, ALC, ADIFF, CMP, GFR #### [address] [address] Keiko 06-20-2023 Ammonia (P) [Moles/Vol] 15 umol/L Normal 11-32 A [facility] ([place]) Comment on above: Performed By: #### P HOS, PRO, AMM ####[place] [address] CBCon 06-20-2023 Erythrocyte distribution width (RBC) [Ratio] 12.6 % Normal 11.5-14.5 [facility] ([place] Comment on above: Performed By: #### A RIVERA IBARRA, CBC, ALC, ADIFF, CMP, GFR #### [place] [address] Hematocrit (Bld) [Volume fraction] 40.3 % Low 42.0-52.0 [facility] ([place] Comment on above: Performed By: #### A RIVERA IBARRA, CBC, ALC, ADIFF, CMP, GFR #### [place] [address] Hgb 14.5 G/dL Normal 14.0-18.0 [facility] ([place] Comment on above: Performed By: #### A RIVERA IBARRA, CBC, ALC, ADIFF, CMP, GFR #### [place] [address] MCH (RBC) [Entitic mass] 33.9 pg High 27.0-31.2 [facility] ([place] Comment on above: Performed By: #### A RIVERA IBARRA, CBC, ALC, ADIFF, CMP, GFR #### [place] [address] MCHC 35.9 G/dL High 31.8-35.4 [facility] ([place] Comment on above: Performed By: #### A RIVERA IBARRA, CBC, ALC, ADIFF, CMP, GFR #### [place] [address] MCV (RBC) [Entitic vol] 94.3 fL High 80.0-94.0 A [facility] ([place] Comment on above: Performed By: #### A RIVERA IBARRA, CBC, ALC, ADIFF, CMP, GFR #### [address] [address] Platelet 230 10 3/mcL Normal 130-400 [facility] ([place] Comment on above: Performed By: #### A RIVERA IBARRA, CBC, ALC, ADIFF, CMP, GFR #### [address] [address] Platelet mean volume (Bld) [Entitic vol] 7.5 fL Normal 7.4-10.4 [facility] ([place] Comment on above: Performed By: #### A RIVERA IBARRA, CBC, ALC, ADIFF, CMP, GFR #### [address] [address] RBC 4.27 10 6/mcL Normal 4.04-6.13 [facility] ([place] Comment on above: Performed By: #### A RIVERA IBARRA, CBC, ALC, ADIFF, CMP, GFR #### [address] [address] WBC 8.1 10 3/mcL Normal 4.6-10.8 [facility] ([place] Comment on above: Performed By: #### A RIVERA IBARRA, CBC, ALC, ADIFF, CMP, GFR #### [address] [address] CMPon 06-20-2023 Albumin Level 3.8 G/dL Normal 3.5-5.0 [facility] ([place] Comment on above: Performed By: #### A RIVERA IBARRA, CBC, ALC, ADIFF, CMP, GFR #### [address] [address] Albumin/Globulin [Mass ratio] 1.3 {ratio} Normal 1.1-2.5 [facility] ([place] Comment on above: Performed By: #### A RIVERA IBARRA, CBC, ALC, ADIFF, CMP, GFR #### [address] [address] ALP [Catalytic activity/Vol] 77 U/L Normal 40-135 [facility] ([place] Comment on above: Performed By: #### A RIVERA IBARRA, CBC, ALC, ADIFF, CMP, GFR #### [address] [address] ALT [Catalytic activity/Vol] 28 U/L Normal 16-63 [facility] ([place] Comment on above: Performed By: #### A RIVERA IBARRA, CBC, ALC, ADIFF, CMP, GFR #### [address] [address] AST [Catalytic activity/Vol] 17 U/L Normal 10-40 [facility] ([place] Comment on above: Performed By: #### A RIVERA IBARRA, CBC, ALC, ADIFF, CMP, GFR #### [address] [address] Bili Total 0.3 mg/dL Normal 0.2-1.0 [facility] ([place] Comment on above: Result Comment: Use of this assay is not recommended for patients undergoing treatment with eltrombopag due to the potential for falsely elevated results. Performed By: #### A RIVERA IBARRA, CBC, ALC, ADIFF, CMP, GFR #### [address] [address] BUN/Creatinine Ratio 8 ratio Normal 7-27 [facility] ([place]) Comment on above: Performed By: #### A RIVERA IBARRA, CBC, ALC, ADIFF, CMP, GFR #### [address] [address] Calcium [Mass/Vol] 8.6 mg/dL Normal 8.4-10.2 [facility] ([place]) Comment on above: Performed By: #### A RIVERA IBARRA, CBC, ALC, ADIFF, CMP, GFR #### [address] [address] Chloride [Moles/Vol] 105 mmol/L Normal 98-107 [facility] ([place]) Comment on above: Performed By: #### A RIVERA IBARRA, CBC, ALC, ADIFF, CMP, GFR #### [address] [address] CO2 [Moles/Vol] 24 mmol/L Normal 22-29 [facility] ([place] Comment on above: Performed By: #### A RIVERA IBARRA, CBC, ALC, ADIFF, CMP, GFR #### [address] [address] Creatinine [Mass/Vol] 1.12 mg/dL Normal 0.70-1.30 [facility] ([place]) Comment on above: Performed By: #### A RIVERA IBARRA, CBC, ALC, ADIFF, CMP, GFR #### [place] [address] Electrolyte Balance 14.0 mEq/L Normal 4.0-15.0 [facility] ([place]) Comment on above: Performed By: #### A RIVERA IBARRA, CBC, ALC, ADIFF, CMP, GFR #### [place] [address] Globulin 2.9 G/dL Normal [facility] ([place] Comment on above: Performed By: #### A RIVERA IBARRA, CBC, ALC, ADIFF, CMP, GFR #### [place] [address] Glucose [Mass/Vol] 99 mg/dL Normal 70-105 [facility] ([place]) Comment on above: Performed By: #### A RIVERA IBARRA, CBC, ALC, ADIFF, CMP, GFR #### [place] [address] Potassium [Moles/Vol] 4.1 mmol/L Normal 3.5-5.1 [facility] ([place]) Comment on above: Performed By: #### A RIVERA IBARRA, CBC, ALC, ADIFF, CMP, GFR #### [place] [address] Sodium [Moles/Vol] 143 mmol/L Normal 136-145 [facility] ([place]) Comment on above: Performed By: #### A RIVERA IBARRA, CBC, ALC, ADIFF, CMP, GFR #### [facility] [address] [place], [place] [address] Total Protein 6.7 G/dL Normal 6.4-8.2 [facility] ([place] Comment on above: Performed By: #### A RIVERA IBARRA, CBC, ALC, ADIFF, CMP, GFR #### [id number] [place], [place] [address] Urea nitrogen [Mass/Vol] 9 mg/dL Normal 7-18 [facility] ([place] Comment on above: Performed By: #### A RIVERA IBARRA, CBC, ALC, ADIFF, CMP, GFR #### [address] [place], [place] [address] CT HEAD OR BRAIN W/O CONTRAS Ton [...] shift. No abnormal extra-axial fluid collection. The ba-white differentiation is maintained without evidence of an [...] 06/20/2023 3:18:15 AM Ordering Provider: [facility] CT SPINE CERVICAL W/O CONTRA Nolan 06-20-2023 CT SPINE CERVICAL W/O CONTRAST ORIGINAL [...] 06/20/2023 3:20:14 AM Ordering Provider: MICHAEL Robertson [facility]) LABORATORYOrdered By: SYSTEM SYSTEM on 06-20-2023 Ammonia [...] Comment on above: Interpretive Data: Hernandez [place] [employer] (CHEST, 1992, 102:312S-25S) [...] has been performed FOR MEDICAL PURPOSES ONLY. MGon 06-20-2023 Magnesium [Mass/Vol] 2.1 mg/dL Normal 1.8-2.4 [facility] ([place]) Comment on above: Performed By: #### M Shayy ####[address] [place], [place] [address] Magnesium [Mass/Vol] 1.7 mg/dL Low 1.8-2.4 [facility] ([place]) Comment on above: Performed By: #### M G ####[address] [place], [place] [address] MRI BRAIN W/O CONTRASTon MRI BRAIN W/O [...] 4:13:50 PM Ordering Provider: ANA MARIA Robertson [facility]) PHOSon 06-20-2023 Phosphate [Mass/Vol] 2.9 mg/dL Normal 2.7-4.5 [facility]) Comment on above: Performed By: #### P HOS, PRO, AMM ####[address] [place], [place] [address] PROon 06-20-2023 PT Coag (PPP) [Time] 9.8 s Normal 9.0-14.4 [facility]) Comment on above: Performed By: #### P HOS, PRO, AMM ####[address] [place], [place] [address] PT International Ratio 0.8 Normal [facility] ([place]) Comment on above: Result Comment: [employer] (CHEST, 1992, 102:312S-25S) recommended therapeutic range for oral anticoagulant therapy is: LOW RISK: Prophylaxis of venous thrombosis INR: 2.0-3.0 Treatment of pulmonary embolism 2.0-3.0 Prevention of systemic embolism 2.0-3.0 HIGH RISK: Mechanical prosthetic valves 2.5-3.5 Performed By: #### P HOS, PRO, AMM ####[address] [address] UDRUGon 06-20-2023 Amphetamine (u) Negative Normal Negative [facility] ([place]) Comment on above: Performed By: #### U DRUG #### [address] [address] Barbiturate (u) Negative Normal Negative [facility] ([place]) Comment on above: Performed By: #### U DRUG #### [address] [address] Benzodiazepine (u) Negative Normal Negative [facility] ([place]) Comment on above: Performed By: #### U DRUG #### [address] [address] Cannabinoid (u) Negative Normal Negative [facility] ([place]) Comment on above: Performed By: #### U DRUG #### [address] [address] Cocaine Ql (U) Negative Normal Negative [facility] ([place]) Comment on above: Performed By: #### U DRUG #### [address] [address] Methadone Ql (U) Negative Normal Negative [facility] ([place]) Comment on above: Performed By: #### U DRUG #### [address] [address] Opiate (u) Negative Normal Negative [facility] ([place]) Comment on above: Performed By: #### U DRUG #### [address] [address] PCP (u) Negative Normal Negative [facility] ([place] Comment on above: Performed By: #### U DRUG #### [address] [place], [place] [address] Urine Drugs screened: See Below Normal [facility] ([place]) Comment on above: Result Comment: This drug [...] ONLY. Performed By: #### U DRUG #### [address] [address] XR CHEST 1 VIEWon 06-20-2023 XR CHEST [...] Date: 06/20/2023 3:12:39 AM Ordering Provider: MICHAEL PADRON Normal [facility] ([place]) Absolute lymphocyte countOrd ered By: Carmelo Mccray on 06-19-2023 Lymphocytes Auto (Unsp spec) [#/Vol] 2.47 10*3/uL 0.83-4.51 [facility] Automated lymphocyte count a s percentage of total leukocytesOrdered By: Carmelo Mccray on 06-19-2023 Lymphocytes/100 WBC Auto (Unsp spec) 28.9 % 19-41 [facility] Basophil percentageOrdered B y: Carmelo Mccray on 06-19-2023 Basophils/100 WBC (Bld) 0.9 % 0-1 [facility] Chloride [Moles/Vol] 108 mmol/L 98-107 [facility] Eosinophils/100 WBC (Bld) 0.6 % 0-5 [facility] Glucose [Mass/Vol] 84 mg/dL 74-106 [facility] Hemoglobin (Bld) [Mass/Vol] 14.8 g/dL 13.0-16.5 [facility] Monocytes/100 WBC (Bld) 8.4 % 0-10 [facility] Neutrophils (Bld) [#/Vol] 5.2 10*3/uL 2.0-7.7 [facility] Neutrophils/100 WBC (Bld) 60.8 % 47-70 [facility] Potassium [Moles/Vol] 3.7 mmol/L 3.5-5.1 [facility] Sodium [Moles/Vol] 140 mmol/L 136-145 [facility] WBC (Bld) [#/Vol] 8.6 10*3/uL 4.4-11.0 [facility] Determination of erythrocyte mean corpuscular volume (MCV)Ordered By: Carmelo Mccray on 06-19-2023 MCV (RBC) [Entitic vol] 95.8 fL 80-94 [facility] Erythrocyte distribution wid th ratioOrdered By: Carmelo Mccray on 06-19-2023 Erythrocyte distribution width (RBC) [Ratio] 12.0 % 11.6-14.6 [facility] Erythrocyte distribution wid th standard deviationOrdered By: Carmelo Mccray on 06-19-2023 Erythrocyte distribution width (RBC) [Entitic vol] 41.5 fL 35.1-43.9 [facility] Hematocrit Auto (Bld) [Volum e fraction]Ordered By: Carmelo Mccray on 06-19-2023 Hematocrit (Bld) [Volume fraction] 42.9 % 40-54 [facility] Immature granulocytes/100 WB C Auto (Bld)Ordered By: Carmelo Mccray on 06-19-2023 Immature granulocytes/100 WBC (Bld) 0.400 % 0.0-0.9 [facility] Comment on above: IG% - Immature Granu locytes (promyelocytes, myelocytes and metamyelocytes) > 1% indicates that a LEFT SHIFT is Present. Laboratory - Chemistry and C hemistry - challengeOrdered By: Carmelo Mccray on 06-19-2023 CO2 [Moles/Vol] 27.0 mmol/L 21.0-32.0 [facility] Urea nitrogen/Creatinine [Mass ratio] 10.0 mg/mg 10-20 [facility] Laboratory - Hematology and Cell countsOrdered By: Carmelo Mccray on 06-19-2023 MCH (RBC) [Entitic mass] 33.0 pg 27.0-32.0 [facility] MCHC (RBC) [Mass/Vol] 34.5 g/dL 32-36 [facility] Nucleated RBC/100 WBC (Bld) [Ratio] 0 % 0-5 [facility] Platelet mean volume (Bld) [Entitic vol] 9.6 fL 6.2-12.0 [facility] Platelets (Bld) [#/Vol] 263 10*3/uL 150-450 [facility] Laboratory - Microbiology an d Antimicrobial susceptibilityOrdered By: Carmelo Mccray on 06-19-2023 SARS-CoV-2 (COVID-19) RNA DOMINIC+probe Ql (Unsp spec) [facility] No Panel InformationOrdered By: Carmelo Mccray on 06-19-2023 Estimated Creatinine Clearance Calc 145.96 ml/min [facility] Estimated GFR (MDRD) Amer 131 mL/min >60 [facility] Comment on above: GFR Calc Estimated GFR (MDRD) Non-Af Amer 108 mL/min >60 [facility] Comment on above: Non- GFR Calc Troponin I High Sensitivity 10 pg/mL 3.0-78.0 [facility] Comment on above: Please Note: New Rhea t Units and Gender Specific Reference Ranges. For more information see Policy Stat Procedure [place] High Sensitivity Troponin (TNIH) and attachments. RBC Auto (Bld) [#/Vol]Ordere d By: Carmelo Mccray on 06-19-2023 RBC (Bld) [#/Vol] 4.48 10*6/uL 4.6-6.2 [facility] Serum or plasma calcium gaetano urement (mass/volume)Ordered By: Carmelo Mccray on 06-19-2023 Calcium [Mass/Vol] 8.9 mg/dL 8.5-10.1 [facility] Serum or plasma creatinine m easurement (mass/volume)Ordered By: Carmelo Mccray on 06-19-2023 Creatinine [Mass/Vol] 0.90 mg/dL 0.70-1.30 [facility] Comment on above: The validity of the calculated GFR & GFRAA in patients over 70 years has not been determined. Clinical correlation is essential. Serum or plasma urea nitroge n measurement (mass/volume)Ordered By: Carmelo Mccray on 06-19-2023 Urea nitrogen [Mass/Vol] 9 mg/dL 7-18 [facility] Thin prep Papanicolaou smear with manual screeningOrdered By: Carmelo Mccray on 06-19-2023 Thin prep Papanicolaou smear with manual screening 5 5-15 [facility] Absolute lymphocyte countOrd ered By: Marcio Cardona on 05-01-2023 Lymphocytes Auto (Unsp spec) [#/Vol] 4.15 10*3/uL 0.83-4.51 [facility] Automated lymphocyte count a s percentage of total leukocytesOrdered By: Marcio Cardona on 05-01-2023 Lymphocytes/100 WBC Auto (Unsp spec) 41.9 % 19-41 [facility] Basophil percentageOrdered B y: Jacquie White on 05-01-2023 Basophil percentage 3.4 mg/dL 2.5-4.9 [facility] Basophil percentageOrdered B y: Marcio aCrdona on 05-01-2023 Basophils/100 WBC (Bld) 1.2 % 0-1 [facility] Bilirubin [Mass/Vol] 0.60 mg/dL 0.20-1.00 [facility] Comment on above: For patients on eltr ombopag therapy, use of Dimension [place] TBIL is not recommended. Chloride [Moles/Vol] 107 mmol/L 98-107 [facility] Eosinophils/100 WBC (Bld) 0.3 % 0-5 [facility] Glucose [Mass/Vol] 130 mg/dL 74-106 [facility] Comment on above: Fasting Glucose resu lt greater than or equal to 126 mg/dL suggests DIABETES MELLITUS per A.D.A. criteria. Hemoglobin (Bld) [Mass/Vol] 18.1 g/dL 13.0-16.5 [facility] Comment on above: CRITICAL VALUE VERIF IED. CALLED TO DivyaRowan HAMPTON05/01/23 0559 [address].RESULTS READ BACK BY SAME. Monocytes/100 WBC (Bld) 6.5 % 0-10 [facility] Neutrophils (Bld) [#/Vol] 4.9 10*3/uL 2.0-7.7 [facility] Neutrophils/100 WBC (Bld) 49.6 % 47-70 [facility] Potassium [Moles/Vol] 3.8 mmol/L 3.5-5.1 [facility] Protein [Mass/Vol] 7.8 g/dL 6.4-8.2 [facility] Sodium [Moles/Vol] 143 mmol/L 136-145 [facility] WBC (Bld) [#/Vol] 9.9 10*3/uL 4.4-11.0 [facility] Blood manual differential co mment interpretation (narrative result)Ordered By: Marcio Cardona on 05-01-2023 Manual differential comment Isacc (Bld) [Interp] SCANNED [facility] Determination of erythrocyte mean corpuscular volume (MCV)Ordered By: Marcio Cardona on 05-01-2023 MCV (RBC) [Entitic vol] 93.3 fL 80-94 [facility] Erythrocyte distribution wid th ratioOrdered By: Marcio Cardona on 05-01-2023 Erythrocyte distribution width (RBC) [Ratio] 12.8 % 11.6-14.6 [facility] Erythrocyte distribution wid th standard deviationOrdered By: Marcio Cardona on 05-01-2023 Erythrocyte distribution width (RBC) [Entitic vol] 44.0 fL 35.1-43.9 [facility] Hematocrit Auto (Bld) [Volum e fraction]Ordered By: Marcio Cardona on 05-01-2023 Hematocrit (Bld) [Volume fraction] 51.3 % 40-54 [facility] Immature granulocytes/100 WB C Auto (Bld)Ordered By: Marcio Cardona on 05-01-2023 Immature granulocytes/100 WBC (Bld) 0.500 % 0.0-0.9 [facility] Comment on above: IG% - Immature Granu locytes (promyelocytes, myelocytes and metamyelocytes) > 1% indicates that a LEFT SHIFT is Present. Laboratory - Chemistry and C hemistry - challengeOrdered By: Marcio Cardona on 05-01-2023 Albumin/Globulin [Mass ratio] 1.1 {ratio} 0.9-2.4 [facility] ALP [Catalytic activity/Vol] 92 U/L 45-117 [facility] ALT [Catalytic activity/Vol] 49 U/L 16-61 [facility] CO2 [Moles/Vol] 26.0 mmol/L 21.0-32.0 [facility] Globulin (S) [Mass/Vol] 3.7 g/dL 2.2-4.2 [facility] Urea nitrogen/Creatinine [Mass ratio] 6.4 mg/mg 10-20 [facility] Laboratory - Chemistry and C hemistry - challengeOrdered By: Jacquie Beckwith on 05-01-2023 Magnesium [Mass/Vol] 2.1 mg/dL 1.6-2.6 [facility] Laboratory - CoagulationOrde red By: Marcio Cardona on 05-01-2023 INR Coag (Bld) [Relative time] 1.0 {INR} [facility] PT Coag (PPP) [Time] 13.5 s 11.7-14.9 [facility] Laboratory - Drug toxicology Ordered By: Marcio Cardona on 05-01-2023 Amphetamines Ql (U) Negative <1000 ng/mL [facility] Benzodiazepines Ql (U) Negative < 200 ng/mL [facility] Cannabinoids Screen Ql (U) Negative < 50 ng/mL [facility] Cocaine Ql (U) Negative < 300 ng/mL [facility] Opiates Ql (U) Negative < 300 ng/mL [facility] Laboratory - Hematology and Cell countsOrdered By: Marcio Cardona on 05-01-2023 MCH (RBC) [Entitic mass] 32.9 pg 27.0-32.0 [facility] MCHC (RBC) [Mass/Vol] 35.3 g/dL 3236 [facility] Nucleated RBC/100 WBC (Bld) [Ratio] 0 % 0-5 [facility] Platelet mean volume (Bld) [Entitic vol] 9.1 fL 6.2-12.0 [facility] Platelets (Bld) [#/Vol] 371 10*3/uL 150-450 [facility] No Panel InformationOrdered By: Marcio Cardona on 05-01-2023 Estimated GFR (MDRD) Amer 125 mL/min >60 [facility] Comment on above: GFR Calc Estimated GFR (MDRD) Non-Af Amer 103 mL/min >60 [facility] Comment on above: Non- GFR Calc Ethyl Alcohol Level 208.0 mg/dL [facility] Comment on above: The serum:whole bloo d ethanol ratio is approximately 1.14and varies slightly with hematocrit. Medical Alcohol reference interval and critical value innon-tolerant individuals; 50 - 100 Impairment 100 Intoxication 100 - 250 Severe Poisoning 250 - 400 Deep/possible fatal coma MDMA (Ecstasy) Screen Negative < 500 ng/mL [facility] Urine Barbiturates Screen Negative < 200 ng/mL [facility] Urine Drug Screen Comment [facility] Comment on above: CONFIRMATORY TESTING FOR [...] TESTING MUST BE ORDERED SEPARATELY. USE TESTMNEMONIC: SDCA Urine Methadone Screen Negative < 300 ng/mL [facility] RBC Auto (Bld) [#/Vol]Ordere d By: Marcio Cardona on 05-01-2023 RBC (Bld) [#/Vol] 5.50 10*6/uL 4.6-6.2 [facility] Review by pathologistOrdered By: Marcio Cardona on 05-01-2023 Pathologist review Isacc (Unsp spec) [Interp] Cheryl holland [facility] Pathologist review Isacc (Unsp spec) [Interp] Reviewed [facility] Comment on above: Previous reported re sult: Cheryl holland Edited by: МАРИНА on 05/02/23:0932PolycythemiaClinical correlation necessary.Mahesh Sharma M.D. 05/02/23 AMENDED REPORT 05/02/23 0932 PATH REV previously reported as: [facility]oll Serum or plasma calcium gaetano urement (mass/volume)Ordered By: Marcio Cardona on 05-01-2023 Calcium [Mass/Vol] 8.6 mg/dL 8.5-10.1 [facility] Serum or plasma creatinine m easurement (mass/volume)Ordered By: Marcio Cardona on 05-01-2023 Creatinine [Mass/Vol] 0.94 mg/dL 0.70-1.30 [facility] Comment on above: The validity of the calculated GFR & GFRAA in patients over 70 years has not been determined. Clinical correlation is essential. Serum or plasma urea nitroge n measurement (mass/volume)Ordered By: Marcio Cardona on 05-01-2023 Urea nitrogen [Mass/Vol] 6 mg/dL 7-18 [facility] Thin prep Papanicolaou smear with manual screeningOrdered By: Marcio Cardona on 05-01-2023 Thin prep Papanicolaou smear with manual screening 4.1 g/dL 3.2-5.0 [facility] Thin prep Papanicolaou smear with manual screening 31 U/L 15-37 [facility] Thin prep Papanicolaou smear with manual screening 10 5-15 [facility] Urine phencyclidine (PCP) de tectionOrdered By: Marcio Cardona on 05-01-2023 Phencyclidine Ql (U) Negative < 25 ng/mL [facility] Basophil percentageOrdered B y: Jacquie Beckwith on 03-23-2023 Basophil percentage 2.9 mg/dL 2.5-4.9 [facility] Laboratory - Chemistry and C hemistry - challengeOrdered By: Jacquie Beckwith on 03-23-2023 Magnesium [Mass/Vol] 2.0 mg/dL 1.6-2.6 [facility] Laboratory - CoagulationOrde red By: Stan Thomas on 03-23-2023 INR Coag (Bld) [Relative time] 0.9 {INR} [facility] PT Coag (PPP) [Time] 12.2 s 11.7-14.9 [facility] Absolute lymphocyte countOrd ered By: Daquan Reid on 03-22-2023 Lymphocytes Auto (Unsp spec) [#/Vol] 3.11 10*3/uL 0.83-4.51 [facility] Automated lymphocyte count a s percentage of total leukocytesOrdered By: Daquan Reid on 03-22-2023 Lymphocytes/100 WBC Auto (Unsp spec) 34.2 % 19-41 [facility] Basophil percentageOrdered B y: Daquan Reid on 03-22-2023 Basophils/100 WBC (Bld) 0.8 % 0-1 [facility] Bilirubin [Mass/Vol] 0.70 mg/dL 0.20-1.00 [facility] Comment on above: For patients on eltr ombopag therapy, use of Dimension [place] TBIL is not recommended. Chloride [Moles/Vol] 108 mmol/L 98-107 [facility] Eosinophils/100 WBC (Bld) 0.1 % 0-5 [facility] Glucose [Mass/Vol] 117 mg/dL 74-106 [facility] Comment on above: Fasting Glucose resu lt from 100 to 125 mg/dL suggests IMPAIRED HOMEOSTASIS per A.D.A. criteria. Hemoglobin (Bld) [Mass/Vol] 16.8 g/dL 13.0-16.5 [facility] Monocytes/100 WBC (Bld) 6.3 % 0-10 [facility] Neutrophils (Bld) [#/Vol] 5.3 10*3/uL 2.0-7.7 [facility] Neutrophils/100 WBC (Bld) 58.3 % 47-70 [facility] Potassium [Moles/Vol] 4.0 mmol/L 3.5-5.1 [facility] Protein [Mass/Vol] 8.1 g/dL 6.4-8.2 [facility] Sodium [Moles/Vol] 140 mmol/L 136-145 [facility] WBC (Bld) [#/Vol] 9.1 10*3/uL 4.4-11.0 [facility] Determination of erythrocyte mean corpuscular volume (MCV)Ordered By: Daquan Reid on 03-22-2023 MCV (RBC) [Entitic vol] 88.6 fL 80-94 [facility] Erythrocyte distribution wid th ratioOrdered By: Daquan Reid on 03-22-2023 Erythrocyte distribution width (RBC) [Ratio] 12.4 % 11.6-14.6 [facility] Erythrocyte distribution wid th standard deviationOrdered By: Daquan Reid on 03-22-2023 Erythrocyte distribution width (RBC) [Entitic vol] 40.2 fL 35.1-43.9 [facility] Hematocrit Auto (Bld) [Volum e fraction]Ordered By: Daquan Reid on 03-22-2023 Hematocrit (Bld) [Volume fraction] 46.8 % 40-54 [facility] Immature granulocytes/100 WB C Auto (Bld)Ordered By: Daquan Reid on 03-22-2023 Immature granulocytes/100 WBC (Bld) 0.300 % 0.0-0.9 [facility] Comment on above: IG% - Immature Granu locytes (promyelocytes, myelocytes and metamyelocytes) > 1% indicates that a LEFT SHIFT is Present. Laboratory - Chemistry and C hemistry - challengeOrdered By: Daquan Reid on 03-22-2023 Albumin/Globulin [Mass ratio] 1.2 {ratio} 0.9-2.4 [facility] ALP [Catalytic activity/Vol] 105 U/L 45-117 [facility] ALT [Catalytic activity/Vol] 27 U/L 16-61 [facility] CO2 [Moles/Vol] 25.0 mmol/L 21.0-32.0 [facility] Globulin (S) [Mass/Vol] 3.7 g/dL 2.2-4.2 [facility] Urea nitrogen/Creatinine [Mass ratio] 8.1 mg/mg 10-20 [facility] Laboratory - Chemistry and C hemistry - challengeOrdered By: Stan Thomas on 03-22-2023 Amylase [Catalytic activity/Vol] 34 U/L 15-85 [facility] Laboratory - Drug toxicology Ordered By: Daquan Reid on 03-22-2023 Amphetamines Ql (U) Negative <1000 ng/mL [facility] Benzodiazepines Ql (U) Negative < 200 ng/mL [facility] Cannabinoids Screen Ql (U) Negative < 50 ng/mL [facility] Cocaine Ql (U) Negative < 300 ng/mL [facility] Opiates Ql (U) Negative < 300 ng/mL [facility] Laboratory - Hematology and Cell countsOrdered By: Daquan Reid on 03-22-2023 MCH (RBC) [Entitic mass] 31.8 pg 27.0-32.0 [facility] MCHC (RBC) [Mass/Vol] 35.9 g/dL 32-36 [facility] Nucleated RBC/100 WBC (Bld) [Ratio] 0 % 0-5 [facility] Platelet mean volume (Bld) [Entitic vol] 9.2 fL 6.2-12.0 [facility] Platelets (Bld) [#/Vol] 367 10*3/uL 150-450 [facility] No Panel InformationOrdered By: Daquan Reid on 03-22-2023 Estimated Creatinine Clearance Calc 138.63 ml/min [facility] Estimated GFR (MDRD) Amer 137 mL/min >60 [facility] Comment on above: GFR Calc Estimated GFR (MDRD) Non-Af Amer 113 mL/min >60 [facility] Comment on above: Non- GFR Calc Ethyl Alcohol Level 212.0 mg/dL [facility] Comment on above: The serum:whole bloo d ethanol ratio is approximately 1.14and varies slightly with hematocrit. Medical Alcohol reference interval and critical value innon-tolerant individuals; 50 - 100 Impairment 100 Intoxication 100 - 250 Severe Poisoning 250 - 400 Deep/possible fatal coma MDMA (Ecstasy) Screen Negative < 500 ng/mL [facility] Urine Barbiturates Screen Negative < 200 ng/mL [facility] Urine Drug Screen Comment See comment [facility] Comment on above: CONFIRMATORY TESTING FOR [...] UTCAPrevious reported result: Edited by: QI on 03/22/23:1937 AMENDED REPORT 03/22/23 2327 TO BE CONFIRMED previously reported as: CONFIRMATORY [...] Methadone Screen Negative < 300 ng/mL [facility] RBC Auto (Bld) [#/Vol]Ordere d By: Daquan Reid on 03-22-2023 RBC (Bld) [#/Vol] 5.28 10*6/uL 4.6-6.2 [facility] Serum or plasma calcium gaetano urement (mass/volume)Ordered By: Daquan Reid on 03-22-2023 Calcium [Mass/Vol] 9.1 mg/dL 8.5-10.1 [facility] Serum or plasma creatinine m easurement (mass/volume)Ordered By: Daquan Reid on 03-22-2023 Creatinine [Mass/Vol] 0.86 mg/dL 0.70-1.30 [facility] Comment on above: The validity of the calculated GFR & GFRAA in patients over 70 years has not been determined. Clinical correlation is essential. Serum or plasma urea nitroge n measurement (mass/volume)Ordered By: Daquan Reid on 03-22-2023 Urea nitrogen [Mass/Vol] 7 mg/dL 7-18 [facility] Thin prep Papanicolaou smear with manual screeningOrdered By: Daquan Reid on 03-22-2023 Thin prep Papanicolaou smear with manual screening 4.4 g/dL 3.2-5.0 [facility] Thin prep Papanicolaou smear with manual screening 18 U/L 15-37 [facility] Thin prep Papanicolaou smear with manual screening 7 5-15 [facility] Urine phencyclidine (PCP) de tectionOrdered By: Daquan Reid on 03-22-2023 Phencyclidine Ql (U) Negative < 25 ng/mL [facility] Absolute lymphocyte countOrd ered By: Cadencealicia Cornelius on 08-05-2022 Lymphocytes Auto (Unsp spec) [#/Vol] 2.36 10*3/uL 0.83-4.51 [facility] Basophil percentageOrdered B y: Cadence Cornelius on 08-05-2022 Basophils/100 WBC (Bld) 1.0 % 0-1 [facility] Bilirubin [Mass/Vol] 0.70 mg/dL 0.20-1.00 [facility] Comment on above: For patients on eltr ombopag therapy, use of Dimension [place] TBIL is not recommended. Chloride [Moles/Vol] 109 mmol/L 98-107 [facility] Eosinophils/100 WBC (Bld) 0.3 % 0-5 [facility] Glucose [Mass/Vol] 116 mg/dL 74-106 [facility] Comment on above: Fasting Glucose resu lt from 100 to 125 mg/dL suggests IMPAIRED HOMEOSTASIS per A.D.A. criteria. Neutrophils (Bld) [#/Vol] 4.0 10*3/uL 2.0-7.7 [facility] Neutrophils/100 WBC (Bld) 56.8 % 47-70 [facility] Potassium [Moles/Vol] 4.0 mmol/L 3.5-5.1 [facility] Protein [Mass/Vol] 6.4 g/dL 6.4-8.2 [facility] Sodium [Moles/Vol] 143 mmol/L 136-145 [facility] WBC (Bld) [#/Vol] 7.1 10*3/uL 4.4-11.0 [facility] Blood erythrocytes count (nu mber/volume)Ordered By: Cadence Cornelius on 08-05-2022 RBC (Bld) [#/Vol] 4.56 10*6/uL 4.6-6.2 [facility] Blood hemoglobin measurement (mass/volume)Ordered By: Cadence Cornelius on 08-05-2022 Hemoglobin (Bld) [Mass/Vol] 14.6 g/dL 13.0-16.5 [facility] Blood lymphocytes/100 leukoc ytesOrdered By: Cadence Cornelius on 08-05-2022 Lymphocytes/100 WBC (Bld) 33.2 % 19-41 [facility] Blood monocytes/100 leukocyt esOrdered By: Cadence Cornelius on 08-05-2022 Monocytes/100 WBC (Bld) 8.3 % 0-10 [facility] Blood platelet mean volumeOr dered By: Cadence Cornelius on 08-05-2022 Platelet mean volume (Bld) [Entitic vol] 9.1 fL 6.2-12.0 [facility] Determination of erythrocyte mean corpuscular volume (MCV)Ordered By: Cadence Cornelius on 08-05-2022 MCV (RBC) [Entitic vol] 90.6 fL 80-94 [facility] Direct bilirubinOrdered By: Cadence Cornelius on 08-05-2022 Bilirubin.direct [Mass/Vol] 0.19 mg/dL 0.00-0.30 [facility] Hematocrit Auto (Bld) [Volum e fraction]Ordered By: Cadence Cornelius on 08-05-2022 Hematocrit (Bld) [Volume fraction] 41.3 % 40-54 [facility] Laboratory - Chemistry and C hemistry - challengeOrdered By: Cadence Cornelius on 08-05-2022 ALP [Catalytic activity/Vol] 73 U/L 45-117 [facility] ALT [Catalytic activity/Vol] 24 U/L 16-61 [facility] CO2 [Moles/Vol] 28.0 mmol/L 21.0-32.0 [facility] Globulin (S) [Mass/Vol] 2.9 g/dL 2.2-4.2 [facility] Urea nitrogen/Creatinine [Mass ratio] 10.0 mg/mg 10-20 [facility] Laboratory - Drug toxicology Ordered By: Cadence Cornelius on 08-05-2022 Amphetamines Ql (U) Negative <1000 ng/mL [facility] Benzodiazepines Ql (U) Negative < 200 ng/mL [facility] Cannabinoids Screen Ql (U) Negative < 50 ng/mL [facility] Cocaine Ql (U) Positive < 300 ng/mL [facility] Opiates Ql (U) Negative < 300 ng/mL [facility] Laboratory - Hematology and Cell countsOrdered By: Cadence Cornelius on 08-05-2022 Erythrocyte distribution width (RBC) [Entitic vol] 38.1 fL 35.1-43.9 [facility] Erythrocyte distribution width (RBC) [Ratio] 11.6 % 11.6-14.6 [facility] Immature granulocytes/100 WBC (Bld) 0.400 % 0.0-0.9 [facility] Comment on above: IG% - Immature Granu locytes (promyelocytes, myelocytes and metamyelocytes) > 1% indicates that a LEFT SHIFT is Present. MCH (RBC) [Entitic mass] 32.0 pg 27.0-32.0 [facility] Nucleated RBC/100 WBC (Bld) [Ratio] 0 % 0-5 [facility] MCHC Auto (RBC) [Mass/Vol]Or dered By: Cadence Cornelius on 08-05-2022 MCHC (RBC) [Mass/Vol] 35.4 g/dL 32-36 [facility] No Panel InformationOrdered By: Cadence Cornelius on 08-05-2022 MDMA (Ecstasy) Screen Negative < 500 ng/mL [facility] Urine Barbiturates Screen Negative < 200 ng/mL [facility] Urine Drug Screen Comment [facility] Comment on above: CONFIRMATORY TESTING FOR [...] Methadone Screen Negative < 300 ng/mL [facility] Estimated Creatinine Clearance Calc 150.34 ml/min [facility] Estimated GFR (MDRD) Amer 151 mL/min >60 [facility] Comment on above: GFR Calc Estimated GFR (MDRD) Non-Af Amer 125 mL/min >60 [facility] Comment on above: Non- GFR Calc Ethyl Alcohol Level 219.0 mg/dL [facility] Comment on above: The serum:whole bloo d ethanol ratio is approximately 1.14and varies slightly with hematocrit. Medical Alcohol reference interval and critical value innon-tolerant individuals; 50 - 100 Impairment 100 Intoxication 100 - 250 Severe Poisoning 250 - 400 Deep/possible fatal coma Platelets bldOrdered By: Geraldine Cornelius on 08-05-2022 Platelets (Bld) [#/Vol] 249 10*3/uL 150-450 [facility] Serum or plasma albumin gaetano urement (mass/volume)Ordered By: Cadence Cornelius on 08-05-2022 Albumin [Mass/Vol] 3.5 g/dL 3.2-5.0 [facility] Serum or plasma calcium gaetano urement (mass/volume)Ordered By: Cadence Cornelius on 08-05-2022 Calcium [Mass/Vol] 8.2 mg/dL 8.5-10.1 [facility] Serum or plasma creatinine m easurement (mass/volume)Ordered By: Cadence Cornelius on 08-05-2022 Creatinine [Mass/Vol] 0.80 mg/dL 0.70-1.30 [facility] Comment on above: The validity of the calculated GFR & GFRAA in patients over 70 years has not been determined. Clinical correlation is essential. Serum or plasma urea nitroge n measurement (mass/volume)Ordered By: Cadence Cornelius on 08-05-2022 Urea nitrogen [Mass/Vol] 8 mg/dL 7-18 [facility] Thin prep Papanicolaou smear with manual screeningOrdered By: Cadence Cornelius on 08-05-2022 Thin prep Papanicolaou smear with manual screening 17 U/L 15-37 [facility] Thin prep Papanicolaou smear with manual screening 6 5-15 [facility] Urine phencyclidine (PCP) de tectionOrdered By: Cadence Cornelius on 08-05-2022 Phencyclidine Ql (U) Negative < 25 ng/mL [facility] Vital Signs Date Time Vital Sign Value Performing Clinician Facility 10-14-2024 12:55-0400 Respiratory rate 16 /min Kristian Parekh MD Work Phone: [facility] 10-14-2024 12:43-0400 Body temperature 97.81 [degF] Kristian Parekh MD Work Phone: [facility] 10-14-2024 12:43-0400 Diastolic blood pressure 76 mm[Hg] Kristian Parekh MD Work Phone: [facility] 10-14-2024 12:43-0400 Heart rate 72 /min Kristian Parekh MD Work Phone: [facility] 10-14-2024 12:43-0400 SaO2% (BldA) [Mass fraction] 96 % Kristian Parekh MD Work Phone: [facility] 10-14-2024 12:43-0400 Systolic blood pressure 121 mm[Hg] Kristian Parekh MD Work Phone: [facility] 10-12-2024 23:15-0400 Body height 180.3 cm Kristian Parekh MD Work Phone: [facility] 10-12-2024 23:15-0400 Body mass index (BMI) [Ratio] 24.13 kg/m2 Kristian Parekh MD Work Phone: [facility] 10-12-2024 23:15-0400 Body weight 78.47 kg Kristian Parekh MD Work Phone: [facility] 10-11-2024 15:13-0400 Respiratory rate 16 /min [facility] 10-11-2024 14:29-0400 Body temperature 98.01 [degF] [facility] 10-11-2024 14:29-0400 Diastolic blood pressure 76 mm[Hg] [facility] 10-11-2024 14:29-0400 Heart rate 77 /min [facility] 10-11-2024 14:29-0400 SaO2% (BldA) [Mass fraction] 97 % [facility] 10-11-2024 14:29-0400 Systolic blood pressure 124 mm[Hg] [facility] 10-08-2024 00:54-0400 Body height 180.3 cm [facility] 10-08-2024 00:54-0400 Body mass index (BMI) [Ratio] 24.41 kg/m2 [facility] 10-08-2024 00:54-0400 Body weight 79.38 kg [facility] 10-05-2024 13:15-0400 Respiratory rate 16 /min [facility] 10-05-2024 11:25-0400 Diastolic blood pressure 76 mm[Hg] [facility] 10-05-2024 11:25-0400 Heart rate 107 /min [facility] 10-05-2024 11:25-0400 SaO2% (BldA) [Mass fraction] 98 % [facility] 10-05-2024 11:25-0400 Systolic blood pressure 124 mm[Hg] [facility] 10-05-2024 11:00-0400 Body temperature 100.9 [degF] [facility] 10-05-2024 04:00-0400 Body height 180.3 cm [facility] 10-05-2024 04:00-0400 Body mass index (BMI) [Ratio] 23.98 kg/m2 [facility] 10-05-2024 04:00-0400 Body weight 78 kg [facility] 10-04-2024 11:56-0400 Respiratory rate 16 /min [facility] 10-04-2024 11:23-0400 Body temperature 98.01 [degF] [facility] 10-04-2024 11:23-0400 Diastolic blood pressure 70 mm[Hg] [facility] 10-04-2024 11:23-0400 Heart rate 110 /min [facility] 10-04-2024 11:23-0400 SaO2% (BldA) [Mass fraction] 96 % [facility] 10-04-2024 11:23-0400 Systolic blood pressure 150 mm[Hg] [facility] 10-04-2024 07:15-0400 Body height 180.3 cm [facility] 10-04-2024 07:15-0400 Body mass index (BMI) [Ratio] 24.27 kg/m2 [facility] 10-04-2024 07:15-0400 Body weight 78.93 kg [facility] 10-02-2024 08:18-0400 Body temperature 97.9 [degF] No Primary Care Physician [facility] 10-02-2024 08:18-0400 Diastolic blood pressure 78 mm[Hg] No Primary Care Physician [facility] 10-02-2024 08:18-0400 Heart rate 97 /min No Primary Care Physician [facility] 10-02-2024 08:18-0400 Respiratory rate 16 /min No Primary Care Physician [facility] 10-02-2024 08:18-0400 SaO2% (BldA) [Mass fraction] 98 % No Primary Care Physician [facility] 10-02-2024 08:18-0400 Systolic blood pressure 132 mm[Hg] No Primary Care Physician [facility] 10-02-2024 04:55-0400 Body height 180.34 cm No Primary Care Physician [facility] 10-02-2024 04:55-0400 Body mass index (BMI) [Ratio] 25.4 kg/m2 No Primary Care Physician [facility] 10-02-2024 04:55-0400 Body weight 83 kg No Primary Care Physician [facility] 10-02-2024 04:06-0400 Body height 180.34 cm No Primary Care Physician [facility] 10-02-2024 04:06-0400 Body mass index (BMI) [Ratio] 25.4 kg/m2 No Primary Care Physician [facility] 10-02-2024 04:06-0400 Body temperature 98.4 [degF] No Primary Care Physician [facility] 10-02-2024 04:06-0400 Body weight 83 kg No Primary Care Physician [facility] 10-02-2024 04:06-0400 Diastolic blood pressure 92 mm[Hg] No Primary Care Physician [facility] 10-02-2024 04:06-0400 Heart rate 97 /min No Primary Care Physician [facility] 10-02-2024 04:06-0400 Respiratory rate 18 /min No Primary Care Physician [facility] 10-02-2024 04:06-0400 SaO2% (BldA) [Mass fraction] 99 % No Primary Care Physician [facility] 10-02-2024 04:06-0400 Systolic blood pressure 144 mm[Hg] No Primary Care Physician [facility] 10-01-2024 14:00-0400 Body temperature 97.6 [degF] No Primary Care Physician [facility] 10-01-2024 14:00-0400 Diastolic blood pressure 73 mm[Hg] No Primary Care Physician [facility] 10-01-2024 14:00-0400 Heart rate 54 /min No Primary Care Physician [facility] 10-01-2024 14:00-0400 Respiratory rate 12 /min No Primary Care Physician [facility] 10-01-2024 14:00-0400 SaO2% (BldA) [Mass fraction] 98 % No Primary Care Physician [facility] 10-01-2024 14:00-0400 Systolic blood pressure 131 mm[Hg] No Primary Care Physician [facility] 10-01-2024 10:00-0400 Inhaled oxygen flow rate 99 L/min No Primary Care Physician [facility] 10-01-2024 01:52-0400 Body height 180.34 cm No Primary Care Physician [facility] 10-01-2024 01:52-0400 Body mass index (BMI) [Ratio] 25.7 kg/m2 No Primary Care Physician [facility] 10-01-2024 01:52-0400 Body weight 83.46 kg No Primary Care Physician [facility] 06-11-2024 07:27-0400 Diastolic blood pressure 83 mm[Hg] [facility] 06-11-2024 07:27-0400 Heart rate 80 /min [facility] 06-11-2024 07:27-0400 Respiratory rate 18 /min [facility] 06-11-2024 07:27-0400 SaO2% (BldA) [Mass fraction] 98 % [facility] 06-11-2024 07:27-0400 Systolic blood pressure 126 mm[Hg] [facility] 06-11-2024 04:18-0400 Body temperature 97.3 [degF] [facility] 06-11-2024 04:14-0400 Body height 180.3 cm [facility] 06-11-2024 04:14-0400 Body mass index (BMI) [Ratio] 24.55 kg/m2 [facility] 06-11-2024 04:14-0400 Body weight 79.83 kg [facility] 06-10-2024 22:29-0400 Body height 180.3 cm [facility] 06-10-2024 22:29-0400 Body mass index (BMI) [Ratio] 24.55 kg/m2 [facility] 06-10-2024 22:29-0400 Body weight 79.83 kg [facility] 06-10-2024 22:26-0400 Body temperature 96.3 [degF] [facility] 06-10-2024 22:26-0400 Diastolic blood pressure 96 mm[Hg] [facility] 06-10-2024 22:26-0400 Heart rate 108 /min [facility] 06-10-2024 22:26-0400 Respiratory rate 16 /min [facility] 06-10-2024 22:26-0400 SaO2% (BldA) [Mass fraction] 97 % [facility] 06-10-2024 22:26-0400 Systolic blood pressure 144 mm[Hg] [facility] 01-28-2024 13:37-0500 Body height 180.3 cm Christy Shital [employer] Work Phone: [facility] 01-28-2024 13:37-0500 Body mass index (BMI) [Ratio] 27.06 kg/m2 Christy Shital [employer] Work Phone: [facility] [employer] 01-28-2024 13:37-0500 Body temperature 98.4 [degF] Christy Shital [employer] Work Phone: [facility] 01-28-2024 13:37-0500 Body weight 88 kg Christy Shital [employer] Work Phone: [facility] 01-28-2024 13:37-0500 Diastolic blood pressure 75 mm[Hg] Christy Shital [employer] Work Phone: [facility] [employer] 01-28-2024 13:37-0500 Heart rate 90 /min Christy Shital [employer] Work Phone: [facility] 01-28-2024 13:37-0500 Respiratory rate 17 /min Christy Shital [employer] Work Phone: [facility] 01-28-2024 13:37-0500 SaO2% (BldA) [Mass fraction] 98 % Christy Retana [employer] Work Phone: [facility] 01-28-2024 13:37-0500 Systolic blood pressure 117 mm[Hg] Christy Retana [employer] Work Phone: [facility] 06-20-2023 19:15-0400 Body temperature 97.88 [degF] OLIVIER VASQUES [employer] SCREEN OPERATOR [facility] 06-20-2023 19:15-0400 Diastolic Blood Pressure Non-Invasive 90 mm[Hg] OLIVIER VASQUES [employer] S[employer] OPERATOR [facility] 06-20-2023 19:15-0400 Heart rate 87 /min OLIVIER VASQUES [employer] S[employer] OPERATOR [facility] 06-20-2023 19:15-0400 Reason For Taking VItal Signs OLIVIER VASQUES [employer] S[employer] OPERATOR [facility] 06-20-2023 19:15-0400 Respiratory rate 16 /min OLIVIER VASQUES [employer] SCRE[employer] OPERATOR [facility] 06-20-2023 19:15-0400 Systolic Blood Pressure Non-Invasive 144 mm[Hg] OLIVIER VASQUES [employer] SCREEN OPERATOR [facility] 06-20-2023 17:05-0400 Body temperature 97.88 [degF] OLIVIER VASQUES [employer] S[employer] OPERATOR [facility] 06-20-2023 17:05-0400 Diastolic Blood Pressure Non-Invasive 87 mm[Hg] OLIVIER VASQUES [employer] SCRE[employer] OPERATOR [facility] 06-20-2023 17:05-0400 Heart rate 93 /min OLIVIER VASQUES [employer] SCREEN OPERATOR [facility] 06-20-2023 17:05-0400 Reason For Taking VItal Signs OLIVIER VASQUES APRN-SEWAGE SCREEN OPERATOR [facility] 06-20-2023 17:05-0400 Respiratory rate 14 /min OLIVIER VASQUES [employer] S[employer] OPERATOR [facility] 06-20-2023 17:05-0400 Systolic Blood Pressure Non-Invasive 134 mm[Hg] OLIVIER VASQUES [employer] SCREEN OPERATOR [facility] 06-20-2023 14:30-0400 Diastolic Blood Pressure Non-Invasive 93 mm[Hg] OLIVIER VASQUES [employer] SCRE[employer] OPERATOR [facility] 06-20-2023 14:30-0400 Systolic Blood Pressure Non-Invasive 138 mm[Hg] OLIVIER VASQUES [employer] SCREEN OPERATOR [facility] 06-20-2023 14:24-0400 Body temperature 97.52 [degF] OLIVIER VASQUES [employer] SCRE[employer] OPERATOR [facility] 06-20-2023 14:24-0400 Heart rate 80 /min OLIVIER VASQUES [employer] SCRE[employer] OPERATOR [facility] 06-20-2023 14:24-0400 Reason For Taking VItal Signs OLIVIER VASQUES [employer] SCREEN OPERATOR [facility] 06-20-2023 14:24-0400 Respiratory rate 14 /min OLIVIER VASQUES [employer] SCREEN OPERATOR [facility] 06-20-2023 05:41-0400 Body height 180.3 cm OLIVIER VASQUES [employer] SCRE[employer] OPERATOR [facility] 06-20-2023 05:41-0400 Body weight 95.3 kg OLIVIER VASQUES [employer] S[employer] OPERATOR [facility] 06-20-2023 05:41-0400 Body weight 29.32 kg/m2 OLIVIER VASQUES [employer] S[employer] OPERATOR [facility] 06-20-2023 05:35-0400 Blood Pressure Location OLIVIER VIRGENADI [employer] OPER[employer] [facility] 06-20-2023 04:49-0400 Blood Pressure Location OLIVIER VIRGENADI [employer] S[employer] OPERATOR [facility] 06-20-2023 04:49-0400 Blood Pressure Method OLIVIER VIRGENADI [employer] S[employer] OPERATOR [facility] 06-20-2023 04:49-0400 Heart rate 80 /min OLIVIER LAYO [employer] OPER[employer] [facility] 06-20-2023 04:18-0400 Blood Pressure Location OLIVIER VIRGENADI [employer] S[employer] OPER[employer] [facility] 06-20-2023 04:18-0400 Blood Pressure Method OLIVIER VIRGENADI [employer] S[employer] OPERATOR [facility] 06-20-2023 04:18-0400 Heart rate 87 /min OLIVIER LAYO [employer] OPER[employer] [facility] 06-20-2023 03:04-0400 Blood Pressure Method OLIVIER PROMISEITH [employer] OPERATOR [facility] 06-20-2023 03:04-0400 Heart rate 107 /min OLIVIER VASQUES [employer] S[employer] OPERATOR [facility] 06-20-2023 02:15-0400 Body height 180.3 cm OLIVIER VASQUES [employer] S[employer] OPERATOR [facility] 06-20-2023 02:15-0400 Body weight 95 kg OLIVIER LAYO [employer] OPER[employer] [facility] 06-20-2023 00:48-0400 Body temperature 97.4 [degF] No Primary Care Physician [facility] 06-20-2023 00:48-0400 Diastolic blood pressure 85 mm[Hg] No Primary Care Physician [facility] 06-20-2023 00:48-0400 Heart rate 68 /min No Primary Care Physician [facility] 06-20-2023 00:48-0400 Respiratory rate 16 /min No Primary Care Physician [facility] 06-20-2023 00:48-0400 SaO2% (BldA) [Mass fraction] 100 % No Primary Care Physician [facility] 06-20-2023 00:48-0400 Systolic blood pressure 151 mm[Hg] No Primary Care Physician [facility] 06-19-2023 20:58-0400 Body height 180.34 cm No Primary Care Physician [facility] 06-19-2023 20:58-0400 Body mass index (BMI) [Ratio] 29 kg/m2 No Primary Care Physician [facility] 06-19-2023 20:58-0400 Body weight 94.46 kg No Primary Care Physician [facility] 05-01-2023 13:42-0400 Body temperature 97.4 [degF] No Primary Care Physician [facility] 05-01-2023 13:42-0400 Diastolic blood pressure 78 mm[Hg] No Primary Care Physician [facility] 05-01-2023 13:42-0400 Heart rate 55 /min No Primary Care Physician [facility] 05-01-2023 13:42-0400 Respiratory rate 17 /min No Primary Care Physician [facility] 05-01-2023 13:42-0400 SaO2% (BldA) [Mass fraction] 98 % No Primary Care Physician [facility] 05-01-2023 13:42-0400 Systolic blood pressure 138 mm[Hg] No Primary Care Physician [facility] 05-01-2023 06:45-0400 Body height 180.34 cm No Primary Care Physician [facility] 05-01-2023 06:45-0400 Body mass index (BMI) [Ratio] 28 kg/m2 No Primary Care Physician [facility] 05-01-2023 06:45-0400 Body weight 91.4 kg No Primary Care Physician [facility] 05-01-2023 05:52-0400 Body temperature 97.1 [degF] No Primary Care Physician [facility] 05-01-2023 05:52-0400 Diastolic blood pressure 84 mm[Hg] No Primary Care Physician [facility] 05-01-2023 05:52-0400 Heart rate 96 /min No Primary Care Physician [facility] 05-01-2023 05:52-0400 Respiratory rate 14 /min No Primary Care Physician [facility] 05-01-2023 05:52-0400 SaO2% (BldA) [Mass fraction] 99 % No Primary Care Physician [facility] 05-01-2023 05:52-0400 Systolic blood pressure 124 mm[Hg] No Primary Care Physician [facility] 05-01-2023 05:05-0400 Body height 180.34 cm No Primary Care Physician [facility] 03-23-2023 10:40-0500 Body temperature 98.3 [degF] No Primary Care Physician [facility] 03-23-2023 10:40-0500 Diastolic blood pressure 84 mm[Hg] No Primary Care Physician [facility] 03-23-2023 10:40-0500 Heart rate 87 /min No Primary Care Physician [facility] 03-23-2023 10:40-0500 Respiratory rate 16 /min No Primary Care Physician [facility] 03-23-2023 10:40-0500 SaO2% (BldA) [Mass fraction] 96 % No Primary Care Physician [facility] 03-23-2023 10:40-0500 Systolic blood pressure 133 mm[Hg] No Primary Care Physician [facility] 03-23-2023 05:34-0500 Body temperature 98.3 [degF] No Primary Care Physician [facility] 03-23-2023 05:34-0500 Diastolic blood pressure 58 mm[Hg] No Primary Care Physician [facility] 03-23-2023 05:34-0500 Heart rate 86 /min No Primary Care Physician [facility] 03-23-2023 05:34-0500 Respiratory rate 17 /min No Primary Care Physician [facility] 03-23-2023 05:34-0500 SaO2% (BldA) [Mass fraction] 98 % No Primary Care Physician [facility] 03-23-2023 05:34-0500 Systolic blood pressure 113 mm[Hg] No Primary Care Physician [facility] 03-23-2023 01:01-0500 Body height 180.34 cm No Primary Care Physician [facility] 03-23-2023 01:01-0500 Body mass index (BMI) [Ratio] 27.6 kg/m2 No Primary Care Physician [facility] 03-23-2023 01:01-0500 Body weight 89.81 kg No Primary Care Physician [facility] 03-22-2023 22:04-0500 Body height 180.34 cm No Primary Care Physician [facility] 03-22-2023 22:04-0500 Body mass index (BMI) [Ratio] 27.6 kg/m2 No Primary Care Physician [facility] 03-22-2023 22:04-0500 Body temperature 97.5 [degF] No Primary Care Physician [facility] 03-22-2023 22:04-0500 Body weight 89.81 kg No Primary Care Physician [facility] 03-22-2023 22:04-0500 Diastolic blood pressure 86 mm[Hg] No Primary Care Physician [facility] 03-22-2023 22:04-0500 Heart rate 108 /min No Primary Care Physician [facility] 03-22-2023 22:04-0500 Respiratory rate 18 /min No Primary Care Physician [facility] 03-22-2023 22:04-0500 SaO2% (BldA) [Mass fraction] 96 % No Primary Care Physician [facility] 03-22-2023 22:04-0500 Systolic blood pressure 135 mm[Hg] No Primary Care Physician [facility] 08-07-2022 08:32-0400 Body temperature 97.9 [degF] Dr. Fior Ridley Work Phone: [facility] 08-07-2022 08:32-0400 Diastolic blood pressure 63 mm[Hg] Dr. Fior Ridley Work Phone: 3(278)007-356762 [place] [address] 08-07-2022 08:32-0400 Heart rate 81 /min Dr. Fior Ridley Work Phone: 8(762)181-269962 [place] [address] 08-07-2022 08:32-0400 Respiratory rate 18 /min Dr. Fior Ridley Work Phone: 0(076)341-226462 [place] [address] 08-07-2022 08:32-0400 SaO2% (BldA) [Mass fraction] 99 % Dr. Fior Ridley Work Phone: 9(368)346-887962 [place] [address] 08-07-2022 08:32-0400 Systolic blood pressure 125 mm[Hg] Dr. Fior Ridley Work Phone: 8(060)822-431262 [place] [address] 08-05-2022 18:27-0400 Body height 180.[address] Fior Ridley Work Phone: 9(507)553-772862 [place] [address] 08-05-2022 18:27-0400 Body mass index (BMI) [Ratio] 24.4 kg/m2 Dr. Fior Ridley Work Phone: 1(496)069-996762 [place] [address] 08-05-2022 18:27-0400 Body weight 79.[address] Fior Ridley Work Phone: 2(722)429-439462 [place] [address] 08-05-2022 17:22-0400 Respiratory rate 18 /min Dr. Fior Ridley Work Phone: 8(327)033-778962 [place] [address] 08-05-2022 17:11-0400 Body temperature 97.7 [degF] Dr. Fior Ridley Work Phone: 0(441)132-302462 [place] [address] 08-05-2022 17:11-0400 Diastolic blood pressure 68 mm[Hg] Dr. Fior Ridley Work Phone: 5(191)700-119062 [place] [address] 08-05-2022 17:11-0400 Heart rate 81 /min Dr. Fior Ridley Work Phone: 6([phone])060-943362 [place] [address] 08-05-2022 17:11-0400 SaO2% (BldA) [Mass fraction] 97 % Dr. Fior Ridley Work Phone: [facility] 08-05-2022 17:11-0400 Systolic blood pressure 124 mm[Hg] Dr. Fior Ridley Work Phone: [facility] 08-05-2022 15:22-0400 Body height 180.[address] Fior Ridley Work Phone: [facility] 08-05-2022 15:22-0400 Body mass index (BMI) [Ratio] 27.1 kg/m2 Dr. Fior Ridley Work Phone: [facility] 08-05-2022 15:22-0400 Body weight 88.[address] Fior Ridley Work Phone: [facility] Encounters Encounter Date Encounter Type Care Provider Facility Start: 10-12-2024 End: 10-14-[address] [facility] Start: 10-12-2024 End: 10-14-2024 Evaluation and management of inpatient Demetrius Wilder MD Work Phone: [facility] Rapid Diagnosis Start: 10-12-2024 End: 10-12-2024 Emergency department patient visit CORONA GUERRERO II [facility] Start: 10-08-2024 End: 10-11-2024 Evaluation and management of inpatient Corona Guerrero MD Work Phone: [facility] Trauma Start: 10-04-2024 End: 10-05-2024 Evaluation and management of inpatient Dawson Plascencia DO Work Phone: [facility] Trauma Intermediate Care Unit Start: 10-02-2024 End: 10-06-2024 Emergency department patient visit PHYSICIAN NO [facility] Start: 10-02-2024 End: 10-04-2024 Evaluation and management of inpatient Geoff Cadena DO Work Phone: [facility] Trauma Start: 10-02-2024 Non-patient / Non-visit Dr. Rachel martinez MD -[facility] Work Phone: Start: 10-02-2024 End: 10-02-2024 Emergency department patient visit No Primary Care Physician -Emergency Department Work Phone: Start: 10-01-2024 Non-patient / Non-visit Dr. Jacquie Beckwith MD -[facility] Work Phone: Start: 10-01-2024 ambulatory No Primary Car e Physician Facility:[facility] Start: 10-01-2024 End: 10-01-2024 Evaluation and management of inpatient Dr. Rachel Stephen MD -[facility] Work Phone: Start: 09-30-2024 End: 10-01-2024 Emergency department patient visit SHWETA RAYA [facility] Start: 09-29-2024 End: 09-30-2024 Emergency department patient visit [facility] Start: 09-27-2024 End: 09-28-2024 Emergency department patient visit [facility] Start: 06-24-2024 End: 06-24-2024 Emergency department patient visit [facility] Start: 06-11-2024 End: 06-11-2024 Emergency department patient visit [facility] Comment on above: Chest pain, unspecif ied type (Primary Dx); Methamphetamine abuse (HCC); Alcohol abuse Start: 06-10-2024 End: 06-10-2024 Emergency department patient visit [facility] Start: 01-28-2024 End: 01-28-2024 Office outpatient visit 15 minutes Christypadmaja Negroied [employer] Work Phone: [facility] Comment on above: Influenza A (Primary Dx); URI with cough and congestion; Generalized body aches Start: 01-28-2024 End: 01-28-2024 ambulatory [facility] Start: 07-25-2023 End: 07-25-2023 Emergency department patient visit Physician No [facility] Start: 06-20-2023 End: 06-20-2023 Emergency department patient visit KATYA GRIFFITH MD Facility:[facility] Start: 06-20-2023 End: 06-20-2023 Observation OLIVIER VASQUES SHAYLEE-SEWAGE SCREEN OPERATOR [facility] Start: 06-19-2023 End: 06-20-2023 Emergency department patient visit No Primary Care Physician [facility]-Emergency Department Work Phone: Start: 05-01-2023 End: 05-01-2023 Evaluation and management of inpatient No Primary Care Physician [facility]-Intensive Care Unit Work Phone: Start: 03-23-2023 Non-patient / Non-visit No [facility] Physician [facility] Work Phone: Start: 03-23-2023 End: 03-23-2023 Evaluation and management of inpatient No [facility]: Start: 08-07-2022 Non-patient / Non-visit Dr. Franklin Ridley Work Phone: [facility] Start: 08-06-2022 Non-patient / Non-visit Dr. Franklin Ridley Work Phone: [facility] Start: 08-05-2022 Non-patient / Non-visit Dr. Franklin Ridley Work Phone: [facility] Start: 08-05-2022 End: 08-07-2022 Evaluation and management of inpatient [facility]. [facility] Procedures Date Procedure Procedure Detail Performing Clinician Start: 10-14-2024 Creatinine blood Daisy Hampton SEWAGE SCREEN OPERATOR Work Phone: Start: 10-13-2024 EMS RUN SHEET Generic E ms Provider Start: 10-13-2024 Basic metabolic pane l calcium total Akilah Gomez Cervantes SEWAGE SCREEN OPERATOR Work Phone: Start: 10-12-2024 Blood ethanol measurement Akilah Gomez Cervantes SEWAGE SCREEN OPERATOR Work Phone: Start: 10-12-2024 Basic metabolic pane l calcium total Demetrius Wilder MD Work Phone: Start: 10-12-2024 Complete blood count with white cell differential, manual Demetrius Wilder MD Work Phone: Start: 10-12-2024 Culture bacterial bl ood aerobic w/id isolates Demetrius Wilder MD Work Phone: Start: 10-09-2024 Basic metabolic pane l calcium total Yuki Domínguezison PA-C Work Phone: Start: 10-08-2024 Drug tst prsmv instr mnt chem analyzers pr date Kyle Last Unger PA-C Work Phone: Start: 10-08-2024 Ct maxillofacial w/c ontrast material Kyle Unger PA-C Work Phone: Start: 10-08-2024 Blood ethanol measurement Hollimeggan Camargo Start: 10-08-2024 Complete blood count with white cell differential, manual Kyle Unger PA-C Work Phone: Start: 10-08-2024 Comprehensive metabo lic panel Tejal Elliskylah CAMPA-C Work Phone: Start: 10-08-2024 Hepatic function panel Tejal Mckeon PA-C Work Phone: Start: 10-05-2024 Basic metabolic pane l calcium total Christen Figliomeni PA-C Work Phone: Start: 10-05-2024 Drug tst prsmv instr mnt chem analyzers pr date Renae Piña SEWAGE SCREEN OPERATOR Work Phone: Start: 10-04-2024 Blood count complete automated Renae Piña SEWAGE SCREEN OPERATOR Work Phone: Start: 10-04-2024 Blood ethanol measurement Renae Piña SEWAGE SCREEN OPERATOR Work Phone: Start: 10-04-2024 Blood ethanol measurement Shellie Jesic DO Work Phone: Start: 10-03-2024 Drug tst prsmv instr mnt chem analyzers pr date Leonel Colón Start: 10-03-2024 Basic metabolic pane l calcium total Leonel Colón Start: 10-02-2024 Blood count complete automated Hollimeggan Amaya SEWAGE SCREEN OPERATOR Work Phone: Start: 10-02-2024 Blood group typing Mickey Cadena DO Work Phone: Start: 10-02-2024 Ct angio abd&plvis c ntrst mtrl w/wo cntrst img Lillian Calvert MD Work Phone: Start: 10-02-2024 Ct angiography neck w/contrast/noncontrast Lillian Calvert MD Work Phone: Start: 10-02-2024 Ct maxillofacial w/o contrast material Lillian Calvert MD Work Phone: Start: 10-02-2024 Gases blood ph direc t gaetano xcpt pulse oximitry Geoff Cadena DO Work Phone: Start: 10-02-2024 Basic metabolic pane l calcium total Hollimeggan Amaya SEWAGE SCREEN OPERATOR Work Phone: Start: 10-02-2024 Blood ethanol measurement Geoff Cadena DO Work Phone: Start: 10-02-2024 Hepatic function panel Leonel Colón Start: 10-02-2024 CT cervical spine wi thout contrast No Primary Care Physician Start: 10-02-2024 CT of face No Primary Care Physician Start: 10-02-2024 CT of head without contrast No Primary Care Physician Start: 10-02-2024 Estimated creatinine clearance No Primary Care Physician Start: 10-01-2024 Serum inorganic phos phate measurement No Primary Care Physician Start: 09-29-2024 Urinalysis SHWETA Gibson Comment on above: Result Comment: URIN ALYSIS Performed By: #### [id number] #### [facility],[address] [place], [place] [id number] Start: 09-28-2024 Urinalysis SHWETA Gibson Comment on above: Result Comment: URIN ALYSIS Performed By: #### 2 [id number] ####[facility],[address] [place], [place] [id number] Start: 06-11-2024 Basic metabolic pane l calcium total Easton Dahl GLOVE FORMER - SEWAGE SCREEN OPERATOR Work Phone: Start: 06-11-2024 Drug test def 1-7 classes Easton Dahl GLOVE FORMER - SEWAGE SCREEN OPERATOR Work Phone: Start: 06-11-2024 Radiologic exam ches t 2 views Easton Dahl GLOVE FORMER - SEWAGE SCREEN OPERATOR Work Phone: Start: 06-11-2024 Ecg routine ecg w/le ast 12 lds trcg only w/o i&r Arnold Olivera MD Work Phone: Start: 01-28-2024 Sars-cov-2 detection by dna/rna Christy Retana GLOVE FORMER - SPECIAL LIBRARIAN Work Phone: Start: 01-28-2024 Infectious agent dna /rna influenza 1st 2 types Christy Retana GLOVE FORMER - SPECIAL LIBRARIAN Work Phone: Start: 06-19-2023 Plain chest X-ray No Pr imary Care Physician Start: 06-19-2023 SARS-CoV-2, Influenz a & RSV (PCR) No Primary Care Physician Plan of Treatment Date Care Activity Detail Author Start: 11-06-2071 RSV Immunization for Adults (1 - 1-dose 75+ series) RSV Immunization for Adults (1 - 1-dose 75+ series) [facility] Start: 2046 Zoster Vaccines (1 of 2) Zoster Vaccines (1 of 2) [facility] Start: 10-28-2024 End: 10-28-2024 Patient encounter procedure 10/28/2024 10:20 AM EDT Office Visit [facility] [address] [place] [address] Discharge Disposition: [facility] Start: 10-23-2024 End: 10-23-2024 Follow-up encounter 10/23/2024 10:20 AM EDT Follow-Up [facility] [address] [facility] [address] [place] [address] Anjel Duval PA-C [address] [facility] [address] [place] [address] [facility] Start: 10-20-2024 End: 10-20-2024 Patient encounter procedure 10/20/2024 10:20 AM EDT Office Visit [facility] [address] [facility] [address] [place] [address] Discharge Disposition: Home [facility] Start: 10-14-2024 End: 10-14-2024 Incision & drainage abscess simple/single INCISION AND DRAINAGE HEAD/NECK UNK 10/14/2024 10:[address] [facility] Start: 10-14-2024 End: 10-14-2024 Removal implant deep REMOVAL ARCHBAR UNK 10/14/2024 10:[address] [facility] Start: 10-13-2024 End: 10-13-2024 Admission to same day surgery center 10/13/2024 2:45 PM EDT - 10/13/2024 3:[address] [facility] Periop [address] [place] [address] Marilou Vasquez MD [address] [facility] [address] [place] [address] MAXILLOMANDIBULAR FIXATION SCREW REMOVAL [facility] Comment on above: MAXILLOMANDIBULAR FIXATION SCREW REMOVAL Start: 10-13-2024 End: 10-13-2024 Incision & drainage abscess simple/single INCISION AND DRAINAGE HEAD/NECK UNK 10/13/2024 2:[address] [facility] Start: 10-13-2024 End: 10-13-2024 Removal implant deep REMOVAL ARCHBAR UNK 10/13/2024 2:[address] [facility] Start: 10-12-2024 Influenza vaccination Influenza Vaccine (Season Ended) [facility] Start: 10-04-2024 End: 10-04-2024 Open tx comp fx malar w/internal fx&mult surg OPEN REDUCTION INTERNAL FIXATION MANDIBLE MAXILLA UNK 10/04/2024 7:[address] [facility] Start: 10-01-2024 Following clinical pathway protocol [facility] Start: 10-01-2024 Admission procedure [facility] Start: 10-01-2024 Assessment of risk of venous thromboembolism [facility] Start: 10-01-2024 Introduction of urinary catheter [facility] Start: 10-01-2024 Notification of physician [facility] Start: 10-01-2024 Oxygen therapy [facility] Start: 10-01-2024 Referral to service [facility] Start: 10-01-2024 Vital signs measurements [facility] Start: 10-01-2024 Provision of activity privileges [facility] Start: 10-01-2024 Verification routine [facility] Start: 10-01-2024 End: 10-01-2024 [facility] Start: 10-01-2024 Consultation [facility] Start: 10-01-2024 Patient discharge [facility] Start: 10-13-2023 COVID-19 Vaccine ( season) COVID-19 Vaccine () [facility] Start: 10-13-2023 Influenza vaccination Influenza Vaccine (#1) [facility] Start: 06-20-2023 [facility] Start: 05-01-2023 Following clinical pathway protocol [facility] Start: 05-01-2023 Assessment of risk of venous thromboembolism [facility] Start: 05-01-2023 Inhalation therapy procedure [facility] Start: 05-01-2023 Introduction of urinary catheter [facility] Start: 05-01-2023 Notification of physician [facility] Start: 05-01-2023 Oxygen therapy [facility] Start: 05-01-2023 Provision of activity privileges [facility] Start: 05-01-2023 Referral to service [facility] Start: 05-01-2023 Vital signs measurements [facility] Start: 05-01-2023 [facility] Start: 05-01-2023 Verification routine [facility] Start: 05-01-2023 Admission procedure [facility] Start: 05-01-2023 Hospital admission, emergency, from emergency room, medical nature [facility] Start: 05-01-2023 Patient discharge [facility] Start: 05-01-2023 [facility] Start: 03-23-2023 Patient discharge [facility] Start: 03-23-2023 Following clinical pathway protocol [facility] Start: 03-23-2023 Assessment of risk of venous thromboembolism [facility] Start: 03-23-2023 Notification of physician [facility] Start: 03-23-2023 Provision of activity privileges [facility] Start: 03-23-2023 Vital signs measurements [facility] Start: 03-23-2023 [facility] Start: 03-23-2023 Gamma glutamyl transferase measurement [facility] Start: 03-23-2023 Prothrombin time [facility] Start: 03-23-2023 Admission procedure [facility] Start: 08-07-2022 Patient discharge [facility] Start: 08-05-2022 Following clinical pathway protocol [facility] Start: 08-05-2022 Ambulation without limitation [facility] Start: 08-05-2022 Assessment of risk of venous thromboembolism [facility] Start: 08-05-2022 Catheterization of vein [facility] Start: 08-05-2022 Insertion of catheter into peripheral vein [facility] Start: 08-05-2022 Providing care according to standard [facility] Start: 08-05-2022 Referral to service [facility] Start: 08-05-2022 [facility] Start: 08-05-2022 Verification routine [facility] Start: 08-05-2022 Admission procedure [facility] Start: 08-05-2022 [facility] Start: 11-06-2015 DTaP/Tdap/Td Vaccines (1 - Tdap) DTaP/Tdap/Td Vaccines (1 - Tdap) [facility] Start: 11-06-2015 Hepatitis B Vaccines (1 of 3 - 19+ 3-dose series) Hepatitis B Vaccines (1 of 3 - 19+ 3-dose series) [facility] Start: 11-06-2015 Pneumococcal Vaccine: Pediatrics (0 to 5 Years) and At-Risk Patients (6 to 49 Years) (1 of 2 - PCV) Pneumococcal Vaccine: Pediatrics (0 to 5 Years) and At-Risk Patients (6 to 49 Years) (1 of 2 - PCV) [facility] Start: 2014 Hepatitis C screening Hepatitis C Screening [facility] Start: 2009 Varicella vaccination Varicella Vaccines (1 of 2 - 13+ 2-dose series) [facility] Start: 2008 Depression Screening Depression Screening [facility] Start: 1997 MMR Vaccines (1 of 1 - Standard series) MMR Vaccines (1 of 1 - Standard series) [facility] Start: 1996 HIV screening HIV Screening [facility] Bacteria identified in Blood by Culture Blood Culture Aerobic/Anaerobic Microbiology [facility] 10/12/2024 4:45 PM EDT [facility] Work Phone: Gamma glutamyl transferase measurement [facility] INR in Blood by Coagulation assay [facility] Patient Education [facility] Work Phone: Patient referral [facility] Work Phone: End: 10-02-2024 US Abdomen limited [facility] Work Phone: Comment on above: Once for 1 Occurrences starting 10/03/19 until 10/02/2024 Immunizations Immunization Date Immunization Notes Care Provider Sumi fenton 10-02-2024 tetanus toxoid, redu anshul diphtheria toxoid, and acellular pertussis vaccine, adsorbed No Primary Care Physician [facility] Payers Date Payer Category Payer Self-pay 2023 Medicaid (Managed Care) [facility] MEDICAID [id number] 2023 Medicaid HMO [employer] SANTOS ODM Member Subscriber Plan / Payer (Effective 2023-Present) Name: Kade Barrera Relation to Subscriber: Self Name: Kade Barrera Payer ID: [id number] (NAIC) Type: Medicaid HMO Address: [place] [id number] 2023 Private Health Insurance [id number] 1996 Unknown [id number]. 627 1996 Unknown [id number] 2.16.840.1.443287.3.579.2. 204 1996 Unknown 2016 2.16.840.1.620248.3.579.2. 651 1996 Unknown [id number] 2.16.840.1.477779.3.579.2. 651 1996 Unknown [id number] 2.16.840.1.330348.3.579.2. 651 1996 Unknown [id number] 2.16.840.1.056913.3.579.2. 902 1996 Unknown [id number] 2.16.840.1.912623.3.579.2. 902 1996 Unknown [id number] 2.16.840.1.862625.3.579.2. 902 1996 Unknown [id number] 2.16.840.1.896793.3.579.2. 902 1996 Unknown [id number] 2.16.840.1.188569.3.579.2. 902 1996 Unknown [id number] 2.16.840.1.507079.3.579.2. 902 Unknown [id number] 2.16.840.1.307050.3.579.2. 462 Unknown [id number] 2.16840.1.867096.3.579.2. 462 Unknown [id number] 2..840.1.902022.3.579.2. 462 Unknown [id number] 2.16.840.1.531771.3.579.2. 462 Unknown [id number] 2.0.1.672930.3.579.2. 462 Social History Date Type Detail Facility Start: 08-05-2022 End: 06-19-2023 Tobacco smoking status ALIS Unknown if ever smoked [facility] Start: 1995 Sex Assigned At Male [facility] Start: 06-20-2023 Tobacco smoking status Light tobacco smoker (finding) [facility] Start: 1995 Sex assigned at Not on file [facility] Start: 01-28-2024 Sex Male (finding) [facility] Start: 06-11-2024 End: 10-12-2024 Gender identity Not on file [facility] Start: 06-11-2024 End: 10-12-2024 History of Social function [facility] How often to you hav e a drink containing alcohol? 4 or more times a week [facility] How many standard dr inks containing alcohol do you have on a typical day? 7 to 9 [facility] How often do you hav e 6 or more drinks on 1 occasion? Daily or almost daily [facility] Start: 10-01-2024 End: 10-02-2024 Tobacco smoking status NHIS Smokes tobacco daily (finding) [facility] History of tobacco use Cigarette Smoker [facility] Start: 10-02-2024 Tobacco use and exposure Smokeless tobacco non-user [facility] Start: 10-04-2024 End: 10-14-2024 Alcoholic beverage intake Current drinker of alcohol (finding) [facility] Has the [employer], or water company threatened to shut off services in your home in past 12Mo Yes [facility] Within the last year , have you been afraid of your partner or ex-partner? No [facility] (I/We) worried jenninesha er (my/our) food would run out before (I/we) got money to buy more. Often true [facility] In the past 12 month s, has lack of transportation kept you from medical appointments or from getting medications? Yes [facility] Start: 10-02-2024 Alcohol Comment 15-20 tall boys daily, last drink yesterday - 10/02/24 [facility] Start: 10-12-2024 Alcohol Comment 5 tall boys daily, last drink today [facility] Medical Equipment Procedure Code Equipment Code Equipment Origin al Text Equipment Identifier Dates Sealant 5ml Hemostatic Matrix Fast Prep Floseal W/ Recothrom - [id number] Start: 10-04-2024 Powder 3gm Hemostatic Perclot 9cm Std Tip - [id number] Start: 10-04-2024 Screw 2 X 12mm M mf Self-Drill - [id number] Start: 10-04-2024 Screw 2 X 8mm Mm f Self-Drill - [id number] Start: 10-04-2024 Screw 2 X 12mm M mf Self-Drill - [id number] Start: 10-14-2024 Goals Date Patient Goal Desired Activity /State Functional Status Date Assessment Result Facility 10-01-2024 Functional status Up ad camden [facility] Work Phone: 06-20-2023 Functional Status Door open, Room check performed [facility] 06-20-2023 Functional Status [facility] 06-20-2023 Functional Status Ambulation in Room [facility] 06-20-2023 Functional Status [facility] 06-20-2023 Functional Status [facility] 06-20-2023 Functional Status [facility] 06-20-2023 Functional Status [facility] 05-09-2024 Functional Status Environmental Safety Implemented Adequate room lighting, Bed in low position, Call device within reach [facility] 05-01-2023 Functional status Patient Activity Up ad [place] [facility] Work Phone: 03-23-2023 Functional status Activity Ability Indepe ndent [facility] Work Phone: 08-07-2022 Functional status Up ad camden [facility] Work Phone: Mental Status Date Assessment Result Facility 10-02-2024 Cognitive function Voice/Name [facility] Work Phone: 10-01-2024 Cognitive function Voice/Name [facility] Work Phone: 06-20-2023 Mental Status Orientation Oriented x 4 [facility] 06-20-[address] [facility] 06-20-[address] [facility] 06-19-2023 Cognitive function Level Of Cons ciousness Awake;Alert;Appropriate [facility] Work Phone: 03-23-2023 Cognitive function Appropriate;Cooperativ e [facility] Work Phone: 08-07-2022 Cognitive function Voice/Name;Touch/Shaki ng [facility] Work Phone: Clinical Notes 08-05-2022 to 10-14-2024 Plan of Care - Arnie Akins RN - 10/14/2024 2:54 PM EDTPlan of Care - Arnie Akins RN - 10/14/2024 2:54 PM EDTQuick Note - Arnie Akins RN - 10/14/2024 2:52 PM EDT Note Date & Type Note Facility 10-14-2024 Plan of care note Problem: Actual or potential alteration in health Goal: Absence of healthcare acquired conditions Outcome: Completed Goal: Knowledge of Interdisciplinary Plan of Care Outcome: Completed Goal: Knowledge of Enviroment Outcome: Completed Problem: Pain Goal: Reduced pain sensation Outcome: Completed Goal: Control of acute pain to acceptable level Outcome: Completed Goal: Able to cope with pain Outcome: Completed Goal: Able to achieve maximum level of physical functioning Outcome: Completed Goal: Able to achieve maximum level of psychosocial functioning Outcome: Completed IV Fluids stopped: yes IV removed: yes Chart checked for prescriptions, home medications/security items: Yes AVS reviewed with patient: yes Including new/changed medications, signs/symptoms, & when to call 911: Yes Medications removed from med drawer & med drawer locked: yes Does patient have transportation for discharge: yes Patient tele removed? N/a Which tele box number was returned? N/a Chart removed from folder? yes [facility] 10-14-2024 Miscellaneous Notes Problem: Actual or potential alteration in health Goal: Absence of healthcare acquired conditions Outcome: Completed Goal: Knowledge of Interdisciplinary Plan of Care Outcome: Completed Goal: Knowledge of Enviroment Outcome: Completed Problem: Pain Goal: Reduced pain sensation Outcome: Completed Goal: Control of acute pain to acceptable level Outcome: Completed Goal: Able to cope with pain Outcome: Completed Goal: Able to achieve maximum level of physical functioning Outcome: Completed Goal: Able to achieve maximum level of psychosocial functioning Outcome: Completed IV Fluids stopped: yes IV removed: yes Chart checked for prescriptions, home medications/security items: Yes AVS reviewed with patient: yes Including new/changed medications, signs/symptoms, & when to call 911: Yes Medications removed from med drawer & med drawer locked: yes Does patient have transportation for discharge: yes Patient tele removed? N/a Which tele box number was returned? N/a Chart removed from folder? yes Arrangements by MESSI and NADIA team made, pt able to antoine diet. DC criteria met Brief Post Operative Note Patient Name: Kade Gonzalez : 1995 (28 y.o.) Date of Service: 10/14/2024 CSN: [id number] Procedure(s): MAXILLOMANDIBULAR FIXATION SCREW REMOVAL LEFT MANDIBLE INCISION AND DRAINAGE Pre-Operative Diagnoses: * UNK Post-Operative Diagnoses: Surgeons and Role: * Marilou Vasquez MD - Primary Anesthesiologist: Papa Albrecht MD WAREHOUSE DISTRIBUTION SPECIALIST: Leia Fernandez CRNA Front End Manager: Lauren Becerra RN Scrub Person Relief: Shani Maria ST Anesthesia Specialist: Devon Cintron Graphic Illustrator: Luis Alberto Beckwith Scrub Person Preceptor: Thao Carson ST Operative findings: seroma/hematoma, no abscess, MMF screws removd Intra and immediate post-operative complications: none Type of anesthesia used: General Estimated blood loss: 10 mL Estimated urine output: Specimen(s): * No specimens in log * Implant(s): Implant Name Type Inv. Item Serial No. Special Education Director Lot No. LRB No. Used Action SCREW 2 X 12MM MMF SELF-DRILL - [id number] SCREW 2 X 12MM MMF SELF-DRILL CROW MA Left 4 Explanted Drain(s): * No LDAs found * Wound(s): Wound 10/04/24 Surgical Wound Mouth Inner (Active) Wound 10/04/24 Surgical Wound Chin Left (Active) Dressing Status Open to air 10/14/24 0938 Drainage Amount None 10/13/242010 Drainage Description None 10/13/242010 Odor None 10/13/242010 Wound Characteristics Non-granulating 10/13/242010 Wound Closure Sutures 10/14/24 0835 Katherine-wound Assessment Temperature WNL 10/14/24 0835 Treatments Not Applicable 10/14/24 0835 Cleansed Not Applicable 10/14/24 0835 Primary Dressing Not applicable 10/13/242010 Compression Dressing Not Applicable 10/14/24 0835 Wound 10/14/24 Surgical Wound Mouth Left (Active) Wound Closure Approximated;Sutures 10/12/24 0004 Did the case consist of ANY colon or uterine surgery? NO Beverley Shepherd MD 10/14/2024 11:03 AM Kade Gonzalez [id number] 1995 Attending: Marilou Vasquez MD Marketing Intelligence Analyst: Beverley Shepherd MD Pre Procedure Diagnosis: History of left mandible fracture Post Procedure Diagnosis: History of left mandible fracture Procedure or Procedures Performed: 1) external drainage of left submandibular fluid collection 2) removal of MMF screws from the mouth Indication for Procedure: This patient has a history of mandible fracture treated with plating. Patient developed a fluid collection in the left side of the mandible. Today he presents for drainage. Consent: Informed Consent was obtained prior to intervention. This included review of risks and benefits of the surgery and the option of no intervention.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 to decline drinks or stop drinking if you feel uncomfortable. Choose Alternatives. Enjoy non-alcoholic beverages and activities that don t involve alcohol. Avoid drinking to help yourself fall asleep. Despite the immediate benefit of helping you feel drowsy, alcohol can actually make your sleep worse. Seek Support. Talk to a healthcare provider for personalized advice and support options. Explore medication to curb your drinking. Medications like naltrexone and acamprosate can reduce your alcohol cravings and reduce your risk of relapse. Plastic Surgery Post-Op Instructions Your comfort is important to us, which is why we ask you to follow these instructions carefully. These instructions are for your benefit in order to help minimize swelling and ensure proper healing. Minimal to moderate pain is expected. If pain is severe and is not relieved with medication, please call your surgeon. Keep you incision clean and dry. It is okay to shower in 48 hours. Get plenty of rest. Drink plenty of fluids and continue a soft diet. No hard or crunchy foods as this can cause your jaw to break again. Call surgeon immediately if any of the following occur: You bump or injure your surgery site severely You develop a sustained fever of 101 F Your dressing becomes too tight Active drainage arises from the dressing documented in this encounter [facility] 10-12-2024 Progress note Formatting of t his note might be different from the original. Patient oriented to Observation Unit: Yes Patient oriented to room: Yes Plan of care reviewed with patient: yes Extended Emergency Contact Information Primary Emergency Contact: Karmen Montgomery Mobile Relation: Significant Other Secondary Emergency Contact: shani merino Mobile Relation: Mother Father: joseph gonzalez Mobile Primary Care Physician: No, Physician Preferred Pharmacy: N/A Does this match pharmacy listed with CERTIFIED PARALEGAL: No Plan for discharge reviewed: Yes How will patient get home: Needs a ride Reviewed call light process: Yes AMPAC completed under [facility] Basic Mobility Short Form: Yes 4 eyes completed, documented, & witnessed : Yes Patient on tele? No Tele Number: n/a [facility] 10-12-2024 Note DAVID TRAUMA SURGERY TRAUMA EVALUATION / HISTORY AND PHYSICAL / CONSULT NOTE Trauma Attending: Nora Cheng MD MECHANISM OF INJURY: Fall on 10/02, New pain and swelling from left sided mandibular fx LOC (yes/no?): No Anticoagulant / Anti-platelet Rx none Reason/Dx: NA INJURIES: Injuries from fall on 10/02/24, no new trauma. Bilateral mandibular fractures, rib fractures, nasal bone fractures, with large fluid collection adjacent to left mandibular fracture with purulent discharge SURGERIES/PROCEDURES: Date Operation/Procedure Provider Name ACTIVE MEDICAL PROBLEMS: Mandibular fluid collection concerning for possible abscess formation INCIDENTAL FINDINGS: None ADMISSION PLAN OF CARE: [discuss plan for each injury] Mandibular pain and swelling - Patient has been evaluated multiple times and frequently leaves AMA. Seen on 10/04 and 10/08. Did not present to scheduled surgery on 10/09. Surgery rescheduled for tomorrow - Plastic surgery following and recommending Spine clearance status: - Cervical spine is clear. - TLS-Spines are clear. Need for Restraints: no. Consultants notified (list specialty/name/time): - Plastic Surgery Code Status (must be addressed and order updated at admission): verified Full Code Disposition: Observation Status This patient is being seen by the Trauma Service either in the ED, ICU, TICU, or Floor ([id number]) CHIEF COMPLAINT: Jaw Pain and Swelling Trauma Category: Consult HISTORY OF PRESENT ILLNESS / INJURY (HPI): [include Pain, Quality, Radiation, Severity, Timing] The patient had a fall after a seizure on 10/02. He was found to have multiple injuries including bilateral mandibular fractures. He was operated on by plastic surgery and eventually discharged. He presented on 10/08 for increased swelling and pain on the left side of his jaw. He had a CT scan concerning for hematoma vs abscess. He left AMA and did not report to his scheduled surgery. He has continued to have left sided jaw swelling and pain. No new trauma. No difficulty swallowing. No difficulty breathing. No falls or head injuries. PAST MEDICAL HISTORY (PMH): Medical history: Seizure history, tobacco use, migraines, depression, asthma, anxiety -LMP (females only): No LMP for male patient. -Last tetanus: 10/02/24 Surgical history: bilateral mandible ORIF and MMF application and left molar extraction on 10/04/2024 Social history: -Place of residence (home, SNF, etc): home -Tobacco use: yes -EtOH use: yes -Drug use: yes -Mental health history: depression Family history: No cardiac disease. No cerebrovascular disease. No bleeding disorders. MEDICATIONS: Outpatient Medications as of 10/12/2024 Medication Sig acamprosate (CAMPRAL) 333 mg tablet Take 2 (two) tablets (666 mg total) by mouth 3 (three) times a day . (Patient not taking: Reported on 10/12/2024 .) naloxone (NARCAN) 4 mg/actuation [place] Administer 1 spray into one nostril for known or suspected opioid overdose. If patient worsens or does not respond, may repeat in 2-3 minutes. . (Patient not taking: Reported on 10/12/2024 .) ALLERGIES: Allergies[1] REVIEW OF SYSTEMS: [List positives and pertinent negatives] Constitutional Symptoms: jaw pain and swelling Eyes: Ears, Nose, Mouth, Throat: Cardiovascular: Respiratory: Gastrointestinal: Genitourinary: Musculoskeletal: Skin/Breast: Neurological: Psychiatric: Endocrine: Hematologic/Lymphatic: Allergic/Immunologic: Other than the above items, the remainder of a complete review of systems is otherwise negative. [must have at least one positive or negative to validate this statement] PHYSICAL EXAM: Initial Presenting VS: [DO NOT LEAVE BLANK and NO DOT PHRASES] Temp: 98.1 F HR: 94 BP: 138/76 RR: 16 SpO2: 96 % PRIMARY SURVEY Airway Patent, trachea midline. Phonation is normal. Breathing Symmetric chest rise. Breath sounds present bilaterally. Circulation Pulses 2+ throughout. Disability Moves extremities normally x 4. No lateralizing neurologic signs. Pupils 3 mm equal and reactive bilaterally. Reading Coma Scale EYES (4-spont, 3-to verb stim, 2-to pain, 1-none) 4 VERBAL (5-oriented, 4-confused, 3-inappropriate, 2-incomprehensible, 1-none) 5 MOTOR (6-follows, 5-localizes, 4-withdraws, 3-flexion, 2-extension, 1-none) 6 GCS: 15 SECONDARY SURVEY General Appears age appropriate. In distress, complaining of jaw pain HEENT Head normocephalic, PERRL, EOMI, mid face stable, tympanic membranes intact, no subconjunctival hemorrhage, nares patent bilaterally, no epistaxis, mouth clear of foreign bodies, no lacerations or abrasions. Left sided jaw swelling. Tender to palpation. Surgical scar healing appropriately Neck (more content not included)... [facility] 10-12-2024 Physician Emergency department Note HPI/ROS/Medical Decision Making I saw and evaluated the patient. I have reviewed the chief complaint, triage note, past medical/surgical, family, and social history. ED Course as of 10/12/24 181SatOct 12, 2024 1628 Trauma to see [AM] 1646 28-year-old male left AMA yesterday from trauma service for bilateral mandibular fractures, rib fractures, nasal bone fractures, with large fluid collection adjacent to left mandibular fracture with purulent discharge, consistent with abscess, was planned for the OR with plastic surgery however patient left AMA Patient reports persistent pain, chills and sweats, denies fevers, persistent inability to open mouth, decreased ability to hydrate and tolerate p.o. Exam Large left sided fluctuance with overlying incision, erythema, tenderness, warm to touch Trismus to 1.5 cm Phonation intact, subjectively muffled but objectively clear, no stridor Nontoxic, no tachycardia, no hypotension afebrile [facility] Left-sided perimandibular abscess with associated fracture Treating with odontogenic coverage osteomyelitis, infected open fracture plastics consult Given left AMA from trauma service, requesting trauma evaluate, consider admission to their service If not good candidate for trauma service admission, would need admission otherwise to medical service pending consultations Ordered antibiotics, sepsis workup Analgesia as needed, IV fluids [AM] ED Course User Index [AM] Demetrius Wilder MD No diagnosis found. [facility] Data Physical Exam Vital signs reviewed. Vitals: 10/12/24 1615 10/12/24 1715 10/12/24 1755 BP: 123/73 (!) 103/54 BP Location: Left arm Right arm Patient Position: Sitting Lying Pulse: 89 88 Resp: 16 16 16 Temp: 98.5 F (36.9 C) 98.4 F (36.9 C) TempSrc: Oral Oral SpO2: 96% 96% Physical Exam Vitals and nursing note reviewed. Constitutional: General: He is not in acute distress. Appearance: He is well-developed. He is not toxic-appearing or diaphoretic. HENT: Head: Normocephalic and atraumatic. Mouth/Throat: Mouth: Mucous membranes are dry. Pharynx: Oropharynx is clear. Eyes: Extraocular Movements: Extraocular movements intact. Conjunctiva/sclera: Conjunctivae normal. Cardiovascular: Rate and Rhythm: Normal rate and regular rhythm. Pulmonary: Effort: Pulmonary effort is normal. No respiratory distress. Abdominal: General: There is no distension. Tenderness: There is no abdominal tenderness. Musculoskeletal: General: No swelling or deformity. Normal range of motion. Cervical back: Normal range of motion and neck supple. Skin: General: Skin is warm and dry. Neurological: General: No focal deficit present. Mental Status: He is alert. Please refer to ED course Exam section for additional pertinent physical exam findings Radiographic Imaging (if any) During ED Visit No orders to display SOCIAL: Social History[1] Past Medical History Nursing triage notes/past medical, social, and family hx reviewed by me and I agree except where documented above. Past Medical History: Diagnosis Date Alcohol dependence (HCC) Anxiety Anxiety and depression Asthma Depression Migraines Substance abuse (HCC) Tobacco abuse Labs Reviewed BASIC METABOLIC PANEL - Abnormal; Notable for the following components: Result Value BUN 5 (*) BUN/Creatinine Ratio 8.5 (*) All other components within normal limits Narrative: [facility] has implemented the eGFR calculation approach that does not have a coefficient for race that conforms to the NKF-ASN Task Force Recommendations. CBC WITH AUTO DIFFERENTIAL - Abnormal; Notable for the following components: RBC 3.66 (*) Hemoglobin 12.2 (*) Hematocrit 36.5 (*) Platelets 509 (*) All other components within normal limits LACTIC ACID, PLASMA - Normal BLOOD CULTURE AEROBIC/ANAEROBIC BLOOD CULTURE AEROBIC/ANAEROBIC CBC AND DIFFERENTIAL Narrative: The following orders were created for panel order CBC w/ Diff. Procedure Abnormality Status --------- ------ CBC Auto Differential[[id number]] Abnormal Final result Please view results for these tests on the individual orders. Laboratory results have been reviewed by me. Procedures . Allergies Allergies[2] Medications Previous Medications Medication Sig acamprosate (CAMPRAL) 333 mg tablet Take 2 (two) tablets (666 mg total) by mouth 3 (three) times a day . (Patient not taking: Reported on 10/12/2024 .) amoxicillin-clavulanate (AUGMENTIN) 400-57 mg/5 mL suspension Take 10.9 mL (875 mg total) by mouth every 12 (twelve) hours for 6 days . Discard remainder (Patient not taking: Reported on 10/12/2024 .) chlorhexidine (PERIDEX) 0.12 % solution Apply 15 mL to the mouth or throat 4 (four) times a day for 14 days . Do not swallow (Patient not taking: Reported on 10/12/2024 .) naloxone (NARCAN) 4 mg/actuation [place] Administer 1 spray into one nostril for known or suspected opioid overdose. If patient worsens or does not respond, may repeat in 2-3 minutes. . (Patient not taking: Reported on 10/12/2024 .) [DISCONTINUED] amoxicillin-clavulanate (AUGMENTIN) 400-57 mg/5 mL suspension Take 10.9 mL (875 mg total) by mouth every 12 (twelve) hours for 6 days . Discard remainder [DISCONTINUED] chlorhexidine (PERIDEX) 0.12 % solution Apply 15 mL to the mouth or throat 4 (four) times a day for 14 days . Do not swallow (Computer voice recognition was used in this documentation, there is a possibility of [id number] errors inherent to this technology that may be missed during proofreading.) [1] Social History Tobacco Use Smoking status: Every Day Current packs/day: 1.50 Types: Cigarettes Smokeless tobacco: Never Vaping Use Vaping status: Some Days Substances: Nicotine Substance Use Topics Alcohol use: Yes Comment: 5 tall boys daily, last drink today Drug use: Yes Types: Cocaine, Methamphetamines, Marijuana Comment: last use a week ago [2] No Known Allergies Demetrius Wilder MD 10/14/24 1125 [facility] 10-12-2024 Emergency department Note HPI/ROS/Medical Decision Making I saw and evaluated the patient. I have reviewed the chief complaint, triage note, past medical/surgical, family, and social history. ED Course as of 10/12/24 181SatOct 12, 2024 1628 Trauma to see [AM] 1646 28-year-old male left AMA yesterday from trauma service for bilateral mandibular fractures, rib fractures, nasal bone fractures, with large fluid collection adjacent to left mandibular fracture with purulent discharge, consistent with abscess, was planned for the OR with plastic surgery however patient left AMA Patient reports persistent pain, chills and sweats, denies fevers, persistent inability to open mouth, decreased ability to hydrate and tolerate p.o. Exam Large left sided fluctuance with overlying incision, erythema, tenderness, warm to touch Trismus to 1.5 cm Phonation intact, subjectively muffled but objectively clear, no stridor Nontoxic, no tachycardia, no hypotension afebrile [facility] Left-sided perimandibular abscess with associated fracture Treating with odontogenic coverage osteomyelitis, infected open fracture plastics consult Given left AMA from trauma service, requesting trauma evaluate, consider admission to their service If not good candidate for trauma service admission, would need admission otherwise to medical service pending consultations Ordered antibiotics, sepsis workup Analgesia as needed, IV fluids [AM] ED Course User Index [AM] Demetrius Wilder MD No diagnosis found. [facility] Data Physical Exam Vital signs reviewed. Vitals: 10/12/24 1615 10/12/24 1715 10/12/24 1755 BP: 123/73 (!) 103/54 BP Location: Left arm Right arm Patient Position: Sitting Lying Pulse: 89 88 Resp: 16 16 16 Temp: 98.5 F (36.9 C) 98.4 F (36.9 C) TempSrc: Oral Oral SpO2: 96% 96% Physical Exam Vitals and nursing note reviewed. Constitutional: General: He is not in acute distress. Appearance: He is well-developed. He is not toxic-appearing or diaphoretic. HENT: Head: Normocephalic and atraumatic. Mouth/Throat: Mouth: Mucous membranes are dry. Pharynx: Oropharynx is clear. Eyes: Extraocular Movements: Extraocular movements intact. Conjunctiva/sclera: Conjunctivae normal. Cardiovascular: Rate and Rhythm: Normal rate and regular rhythm. Pulmonary: Effort: Pulmonary effort is normal. No respiratory distress. Abdominal: General: There is no distension. Tenderness: There is no abdominal tenderness. Musculoskeletal: General: No swelling or deformity. Normal range of motion. Cervical back: Normal range of motion and neck supple. Skin: General: Skin is warm and dry. Neurological: General: No focal deficit present. Mental Status: He is alert. Please refer to ED course Exam section for additional pertinent physical exam findings Radiographic Imaging (if any) During ED Visit No orders to display SOCIAL: Social History[1] Past Medical History Nursing triage notes/past medical, social, and family hx reviewed by me and I agree except where documented above. Past Medical History: Diagnosis Date Alcohol dependence (HCC) Anxiety Anxiety and depression Asthma Depression Migraines Substance abuse (HCC) Tobacco abuse Labs Reviewed BASIC METABOLIC PANEL - Abnormal; Notable for the following components: Result Value BUN 5 (*) BUN/Creatinine Ratio 8.5 (*) All other components within normal limits Narrative: [facility] has implemented the eGFR calculation approach that does not have a coefficient for race that conforms to the NKF-ASN Task Force Recommendations. CBC WITH AUTO DIFFERENTIAL - Abnormal; Notable for the following components: RBC 3.66 (*) Hemoglobin 12.2 (*) Hematocrit 36.5 (*) Platelets 509 (*) All other components within normal limits LACTIC ACID, PLASMA - Normal BLOOD CULTURE AEROBIC/ANAEROBIC BLOOD CULTURE AEROBIC/ANAEROBIC CBC AND DIFFERENTIAL Narrative: The following orders were created for panel order CBC w/ Diff. Procedure Abnormality Status --------- ------ CBC Auto Differential[[id number]] Abnormal Final result Please view results for these tests on the individual orders. Laboratory results have been reviewed by me. Procedures . Allergies Allergies[2] Medications Previous Medications Medication Sig acamprosate (CAMPRAL) 333 mg tablet Take 2 (two) tablets (666 mg total) by mouth 3 (three) times a day . (Patient not taking: Reported on 10/12/2024 .) amoxicillin-clavulanate (AUGMENTIN) 400-57 mg/5 mL suspension Take 10.9 mL (875 mg total) by mouth every 12 (twelve) hours for 6 days . Discard remainder (Patient not taking: Reported on 10/12/2024 .) chlorhexidine (PERIDEX) 0.12 % solution Apply 15 mL to the mouth or throat 4 (four) times a day for 14 days . Do not swallow (Patient not taking: Reported on 10/12/2024 .) naloxone (NARCAN) 4 mg/actuation [place] Administer 1 spray into one nostril for known or suspected opioid overdose. If patient worsens or does not respond, may repeat in 2-3 minutes. . (Patient not taking: Reported on 10/12/2024 .) [DISCONTINUED] amoxicillin-clavulanate (AUGMENTIN) 400-57 mg/5 mL suspension Take 10.9 mL (875 mg total) by mouth every 12 (twelve) hours for 6 days . Discard remainder [DISCONTINUED] chlorhexidine (PERIDEX) 0.12 % solution Apply 15 mL to the mouth or throat 4 (four) times a day for 14 days . Do not swallow (Computer voice recognition was used in this documentation, there is a possibility of [id number] errors inherent to this technology that may be missed during proofreading.) [1] Social History Tobacco Use Smoking status: Every Day Current packs/day: 1.50 Types: Cigarettes Smokeless tobacco: Never Vaping Use Vaping status: Some Days Substances: Nicotine Substance Use Topics Alcohol use: Yes Comment: 5 tall boys daily, last drink today Drug use: Yes Types: Cocaine, Methamphetamines, Marijuana Comment: last use a week ago [2] No Known Allergies Demetrius iWlder MD 10/14/241124 Pt arrives to the ED with CC of jaw pain. Pt states he was treated here for jaw fx a week and a half ago, surgery scheduled for tomorrow but patient unable to tolerate the pain anymore. Sutured laceration, swelling, and redness noted to L jaw, pt states this is from a previous surgery but does not state when. Patient endorses headache, trouble swallowing. Pt alert and oriented. Bed: 19 Expected date: Expected time: Means of arrival: Comments: Medic 2; Jaw pain; Meño documented in this encounter [facility] 10-12-2024 Emergency department Triage note Pt arrives to the ED with CC of jaw pain. Pt states he was treated here for jaw fx a week and a half ago, surgery scheduled for tomorrow but patient unable to tolerate the pain anymore. Sutured laceration, swelling, and redness noted to L jaw, pt states this is from a previous surgery but does not state when. Patient endorses headache, trouble swallowing. Pt alert and oriented. [facility] 10-12-2024 Emergency department Note Bed: 19 Expected date: Expected time: Means of arrival: Comments: Medic 2; Jaw pain; Meño [facility] 10-11-2024 Hospital course Narrative DAVID TRAUMA AGAINST MEDICAL ADVICE DISCHARGE Reason for patient leaving AMA: Unsatisfied with care plan and management Patient with decision making capacity: patient left prior to my evaluation Patient meets criteria for emergency hold: patient left prior to my evaluation AMA form signed: yes Risks have been explained to the patient: patient left prior to my evaluation Patient's concerns addressed, questions answered and offered them care at any time if they choose to return: patient left prior to my evaluation Recommended follow-up with outpatient care provider: yes [facility] has been notified of the AMA discharge. If a follow-up appointment was not scheduled at the time of AMA discharge, or the patient left prior to receiving their AVS, the clinic staff will attempt to contact the patient to make arrangement for outpatient follow-up. Additional efforts made to prevent the patient from leaving AMA: patient left prior to my evaluation AMA discharge management plan: Follow up outpatient documented in this encounter [facility] 10-11-2024 Note DAVID TRAUMA AGAINST MEDICAL ADVICE DISCHARGE Reason for patient leaving AMA: Unsatisfied with care plan and management Patient with decision making capacity: patient left prior to my evaluation Patient meets criteria for emergency hold: patient left prior to my evaluation AMA form signed: yes Risks have been explained to the patient: patient left prior to my evaluation Patient's concerns addressed, questions answered and offered them care at any time if they choose to return: patient left prior to my evaluation Recommended follow-up with outpatient care provider: yes [facility] has been notified of the AMA discharge. If a follow-up appointment was not scheduled at the time of AMA discharge, or the patient left prior to receiving their AVS, the clinic staff will attempt to contact the patient to make arrangement for outpatient follow-up. Additional efforts made to prevent the patient from leaving AMA: patient left prior to my evaluation AMA discharge management plan: Follow up outpatient AUTHENTICATED BY MIHAI DING, ON 10/11/2024 19:27:41 [facility] 10-11-2024 Progress note Formatting of t his note might be different from the original. Patient is leaving against medical advice. Understands risks of leaving. IV removed and tolerated well. All belongings left with patient. [facility] 10-11-2024 Miscellaneous Notes Patient is leaving against medical advice. Understands risks of leaving. IV removed and tolerated well. All belongings left with patient. Associated Problem(s): Unspecified Psychosis (HCC) R/o Substance induced. Patient denies any history of primary thought disorder. Some ongoing paranoid statements in context of recent methamphetamine use. He estimates that he is greater than 48 hours out from last use. Endorses ongoing difficulty with sleep as well. Will schedule quetiapine 50mg at bedtime given that he is no longer acutely intoxicated and as this has been helpful for him in the past in managing symptoms associated with detox from amphetamines. Most recent labs and ECG reviewed. Associated Problem(s): Tobacco use disorder Encourage cessation. Consider NRT if felt to be clinically indicated. Associated Problem(s): Amphetamine-related disorder (HCC) UDS positive for amphetamines. Encourage cessation, particularly given potential for amphetamine use to cause and/or worsen agitation and paranoia. Addiction medicine service following. Associated Problem(s): Alcohol use disorder, severe, dependence (HCC) Completed phenobarbital taper during last medical admission with last dose on 10/05/2024. Returned to hospital 3 days later on 10/08/2024. UDS still positive for barbiturates. Sounds as though he did relapse on alcohol as well as methamphetamines, but would likely not require full taper given brief time frame for relapse just after recent detox. BAL negative. Would recommend monitoring and potentially CIWA in case withdrawal symptoms were to escalate. Defer to addiction medicine team who are consulted. Associated Problem(s): Amphetamine-related disorder (HCC) - Sporadic use over the past 3 months - Last use 10/07 -Educated pt about risks with continued use and education about harm reduction - Recommend [facility] level of care or higher - Encouraged to not share paraphernalia Associated Problem(s): Alcohol withdrawal syndrome, with delirium (HCC) - BAL negative on admission -Last reported drink on 827 -Patient started on Phenobarbital Taper on admission,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 you care for yourself at home? Try other ways to reduce pain: Relax, and reduce stress. Relaxation techniques such as deep breathing or meditation can help. Keep moving. Gentle, daily exercise can help reduce pain over the long run. Try low- or no-impact exercises such as walking, swimming, and stationary biking. Do stretches to stay flexible. Try heat, cold packs, and massage. Get enough sleep. Pain can make you tired and drain your energy. Talk with your doctor if you have trouble sleeping because of pain. Think positive. Your thoughts can affect your pain level. Do things that you enjoy to distract yourself when you have pain instead of focusing on the pain. See a movie, read a book, listen to music, or spend time with a friend. Prescription Pain Medications: The prescription provided should be enough to get you through until your follow up appointment with the Outpatient Trauma office or specialty service. DO NOT take more than prescribed. Please call the Trauma Clinic if you have questions regarding your pain medications Over time, you should be able to take less medications as your injuries heal. Take an over the counter stool softener daily with the pain medicine to prevent the development of constipation. Also drink plenty of water and eat foods high in fiber. Narcan: If you are being prescribed opioid pain medication such as oxycodone, norco, or tramadol you might also be prescribed a medication called Naloxone (narcan) in case of overdose. Taking too much of an opioid can slow or stop your breathing. This is an emergency. If naloxone is given soon enough, it may save a life. Narcan is used when a person shows signs of an opioid emergency. A person may have taken too much of an opioid if they have: Slow, shallow, or stopped breathing. Pinpoint pupils. Blue or purple lips or fingertips. No response when you ask questions, shake the person, or rub the person's breastbone with your knuckles. If you take too much of an opioid, you may not be able to give yourself the medicine. So it's very important that your friends and family know how and when to give it to you. Narcan comes in the form of a nasal spray. The mist is sprayed into the nose of a person who is having an opioid emergency to reverse the effects of the opioid. If you are not taking a prescription pain medicine, take an knkz-ddn-shzeufy medicine as directed such as Tylenol (Acetaminophen) or Motrin (Ibuprofen). When should you call for help? Call your doctor now or seek immediate medical care if: You have a new kind of pain. You have new symptoms, such as a fever or rash, along with the pain. You think you might be using too much pain medicine. You need help to use less or stop taking pain medicine. Your pain gets worse. You would like a referral to a doctor or clinic that specializes in pain management. RETURN TO WORK You may return to work as follows: [ ] Immediately upon hospital discharge- No work restrictions [ ] When no longer requiring opiate pain medications [ ] We will discuss returning to work at your Outpatient Trauma office appointment [ X ] When you follow up with your specialist, they will tell you when you may return to work Tips for Reducing Harms of Alcohol Use Alcohol use can lead to serious adverse events including nutritional deficiencies, worsening of medical conditions, increased risks of accidents or negative consequences, and even . Below are strategies that can minimize some of the negative consequences of alcohol use. Examples of how strategies work: - One potential negative consequence of alcohol consumption is intoxicated driving. Harm reduction strategy would support assigning a designated package car driver or taking a cab, as opposed to avoiding drinking at all. - Another potential negative consequence would be feeling hungover after a night of drinking. Harm reduction for alcohol would have you consume fewer drinks, or alternate each alcoholic drink with a glass of water. Harm Reduction Strategies Are you interested in trying some harm reduction strategies to reduce your alcohol use? Here are some things you can try: Set limits on your alcohol consumption, and stick to them--like limiting yourself to 2 drinks per day. Consume alcohol mindfully, paying attention to how much you consume, where, and when. You might even consider tracking your consumption or keeping a journal to track the metrics that are important to you. Reflect on why you re drinking and what emotions you re feeling. Are you drinking to cope with negative emotions? Is there an alternative activity you could choose to cope with those emotions? Eat before drinking. Food helps to slow absorption of alcohol into your blood stream Pace yourself. Sip slowly. Alternate alcoholic drinks with water or non-alcoholic beverages. Plan ahead. Arrange a safe ride home or designate a non-drinking package car driver for nights out, or plan to stay at a friend s house rather than drive home. Try abstinence periods. For instance, plan to skip drinking on Sundays, or take a break from alcohol during February. Set start and end times for your drinking and try to stay within those limits. For instance, only drinking between the hours of 5pm to 12am. Know when to say no. It is okay to to decline drinks or stop drinking if you feel uncomfortable. Choose Alternatives. Enjoy non-alcoholic beverages and activities that don t involve alcohol. Avoid drinking to help yourself fall asleep. Despite the immediate benefit of helping you feel drowsy, alcohol can actually make your sleep worse. Seek Support. Talk to a healthcare provider for personalized advice and support options. Explore medication to curb your drinking. Medications like naltrexone and acamprosate can reduce your alcohol cravings and reduce your risk of relapse. FACIAL BONE INJURY HOME CARE INSTRUCTIONS You have broken bones in your face. These may include: the bones around your eyes, nose, the cheek bones, or bones in the jaw. The bones will take weeks to fully heal and your face may be swollen or bruised. Safety precautions: Keep your head elevated to decrease swelling. Keep the injured part of your face protected and safe until healed. Do not play any rough sports or activities. Comfort and Hygiene: Gently wash and dry your face. You may gently place ice on the injury for 15 to 20 minutes each hour if needed for discomfort. Put ice in a plastic bag and place a thin towel between the bag of ice and your face. Do not press hard on the broken bone. Do not sleep on the injured side of your face. No smoking, as this will prevent healing. Call the plastic surgeon or Outpatient Trauma office if you have: A fever over 101 degrees Severe headaches New numbness or tingling in your face Difficulty seeing Dizziness or passing out Trouble speaking or swallowing Call 911 if you develop difficulty breathing! RIB FRACTURES You have rib fractures, or broken ribs. It will take about 6 to 8 weeks for your ribs to heal completely. To Help The Ribs Heal: Rest is the most important part of healing. Avoid strenuous activities Light activity such as walking will help the ribs heal and reduce your risk of complications. When the pain decreases, begin normal slow movements of your body. Avoid bumping the rib area as you move. To Decrease Discomfort / Pain Support or brace your ribs with your hands or a pillow when taking deep breaths, coughing or with activity. Take your pain medications as prescribed. To Prevent Pneumonia Continue deep breathing exercises at least 10 times every hour while you are awake. Use the breathing tool (incentive spirometer) you received while in the hospital. This will help the lung continue to heal and prevent infection. How to use an Incentive Spirometer: Sit up and hold the incentive spirometer. Place the mouthpiece in your mouth. Make sure you make a good seal with your lips. Breathe out (exhale) normally. Breathe in (inhale) SLOWLY. A piece of the incentive spirometer will rise as you inhale. Try to get this piece to rise as high as you can. Your provider will place a marker next to your goal prior to discharge. This tells you how big of a breath you should take. A smaller piece in the incentive spirometer looks like a ball or disc. Your goal should be to make this ball stay in the middle of the chamber. If you breathe too fast, the ball will shoot to the top. If you breathe too slowly, the ball will stay at the bottom. Hold your breath for 3 to 5 seconds, before you exhale. Take 10 to 15 breaths using the spirometer every hour that you are awake. Call the Outpatient Trauma office if you develop: A fever greater than 101 and/or cough Call 911 or go to the nearest emergency department if you develop chest pain or have difficulty breathing. MANDIBLE FRACTURE A mandible fracture is a break in your jawbone. It may take weeks or months for the jawbone to heal. Nutrition: If your jaw is wired, you will need to eat foods that have been blended with liquids. You will have to eat these foods through a syringe or straw. If your mouth is not wired, you may need to eat only soft foods. Some examples are applesauce, bananas, cooked cereal, cottage cheese, gelatin, pudding, and yogurt. Ask for more information about the type of foods you can eat. Self-care: Apply ice: Ice helps decrease swelling and pain. Ice may also help prevent tissue damage. Use an ice pack, or put crushed ice in a plastic bag. Cover it with a towel and place it on your face for 15 to 20 minutes every hour or as directed. Clean your mouth often: You will need to clean your mouth 4 to 6 times a day. Caregivers will show you how to do this. Mouth cleaning will remove pieces of food and clean your teeth. A water pick or a child-sized soft toothbrush will work well to clean your mouth. You have been prescribed Peridex Mouthwash: Use to swish and spit after meals and as needed for oral hygiene. Avoid putting pressure on your jaw: Do not push on your jaw or let anything push on it. Sleep on your back. KEEP YOUR WIRE CUTTERS WITH YOU AT ALL TIMES! Cut your wires if you are sick to your stomach or cannot keep fluids down, have trouble breathing or swallowing. Call 911 anytime you think you may need emergency care. For example, call if: You passed out (lost consciousness). You have severe trouble breathing. You have sudden chest pain and shortness of breath, or you cough up blood. Call your doctor now or seek immediate medical care if: You have cut your wires. You have pain that does not get better after you take pain medicine. You have a fever over 101 F. You have loose stitches, or your incision comes open. Bright red blood has soaked through the bandage over your incision. You have signs of infection, such as: Increased pain, swelling, warmth, or redness. Red streaks leading from the incision. Pus draining from the incision. Swollen lymph nodes in your neck, armpits, or groin. A fever. You have trouble talking or swallowing. Your mouth is bleeding. James Lopez - 10/03/2024 7:22 PM EDT [facility] Food Pantry by: [facility] Next Steps: Go to the nearest location to get services. Call [phone] to get more info. About: [facility] Food [facility] provides emergency food assistance to households living within our service area. This program provides: - Food to meet basic nutritional needs - Food delivery for seniors and disabled residents - Diapers, when available Eligibility: Must live within our service area (zip codes [address], [address], and [address] [place] Nearest location: 1.15 miles away. [facility] [address] [place] [address] Hours: Saturday:11:00 AM - 02:45 PM Debra:11:00 AM - 02:45 PM Saturday:11:00 AM - 02:45 PM :11:00 AM - 02:45 PM Saturday:11:00 AM - 02:45 PM [facility] Food Pantry by: [facility] Emergency Material Assistance Program ([facility]) Next Steps: Go to the nearest location to get services. Go to [email or web address] to get more info. About: [facility] Food Pantry serves low-income households in the [facility] and [facility]. Customers may shop for free groceries once a week. This program provides: - Food to meet basic nutritional needs Eligibility: This program helps people with income at or below 200% of federal poverty guidelines Nearest location: 2.63 miles away. [facility] Food Pantry [address] [address] Hours: Saturday:09:00 AM - 12:00 PM Saturday:09:00 AM - 12:00 PM Saturday:09:00 AM - 12:00 PM :03:00 PM - 06:00 PM Saturday:09:00 AM - 12:00 PM Saturday:10:00 AM - 01:00 PM [facility] by: [employer] ([employer]) Next Steps: Go to the nearest location to get services. Call [phone] to get more info. About: [facility] provides neighbors with five days of nutritious food. This program supplies critical nutrition to hungry individuals and families. This program provides: - Food to meet basic nutritional needs For the safety of our volunteers and neighbors, [facility] is operating curbside only. Neighbors are asked to drive, and will receive a prepacked box of dry goods, a box of frozen food items and fresh produce. All items will be loaded into your car, no need to get out! If you do not have a vehicle, please walk up to the front door and a volunteer will assist you. In 2023, [facility] will serve residents of ANY [facility] [place] [facility] once per month in our food pantry. Eligibility: Anyone can access this program. Nearest location: 2.77 miles away. [employer] [address] [place] [address] Hours: Saturday:10:00 AM - 01:00 PM Debra:10:00 AM - 01:00 PM Saturday:10:00 AM - 01:00 PM :10:00 AM - 01:00 PM Saturday:10:00 AM - 01:00 PM Food Distribution by: [facility] [employer] Next Steps: Go to the nearest location to get services. About: Food distribution at the [employer] is offered Saturday - Saturday to individuals and families in the community. This program provides: - Food to meet basic nutritional needs - Meals Please be patient when attempting to contact the office, thye have limited staff and receive a tremendous amount of phone calls and visitors each day. Eligibility: Anyone can access this program. Nearest location: 0.7 miles away. [facility] [address] [place] [address] Hours: Saturday:10:00 AM - 12:00 PM Debra:10:00 AM - 12:00 PM Saturday:10:00 AM - 12:00 PM :10:00 AM - 12:00 PM Saturday:10:00 AM - 12:00 PM Food Pantry by: [facility] Next Steps: Go to the nearest location to get services. About: Our food pantry offers emergency supply of about a weeks worth of food. We provide: - Food to meet basic nutritional needs During the COVID-19 crisis we will be serving our pantry clients through a drive-thru system. Please check our Facebook page for the most up-to-date information. Nearest location: 2.01 miles away. [facility] [address] [place] [address] Note: Last Saturday, , and Saturday of each month. Except Dec & Jan in which its will be the second to the last Saturday. Hours: Saturday:09:00 AM - 11:30 AM :09:00 AM - 11:30 AM Saturday:09:00 AM - 11:30 AM [facility] Food Pantry by: [facility] Next Steps: Go to the nearest location to get services. Go to [email or web address] [email or web address] Communicationsmary [email or web address] [email or web address]/ to get more info. About: [facility] Food Pantry provides food assistance to those in need. Due to COVID-19, [facility] is operating a drive-thru in the parking lot of [facility]. This program provides: - Food to meet basic nutritional needs - Toiletries for hygienic needs The plan upon arrival at [facility] to [facility]: - Clients will be asked to stay in their vehicles and line up cars in the [facility] and [facility] [address]. - A volunteer will register clients for the pantry while they remain in their cars. - Clients will be directed where to drive up and receive pre-packaged bags of dry goods and order other items from a menu. - Clients will then exit by driving past the front of [facility] onto [facility]. If you are unable to appear in person due to health issues or scheduling conflicts, you may fill out a letter of proxy and send it with your immigration case worker (available on website). There is currently a 30-day requirement between visits to the pantry. [facility] does not take appointments and service is provided on a first-come, first-served basis. Financial assistance is not offered. Eligibility: Anyone can access this program. Nearest location: 1.97 miles away. [address] [address] ext. [phone] Note: We have an open-choice drive-thru at [facility]. 30+ days between visits. Availability of perishable food varies. Closed for some holidays/periods, first week of , & General Election. Hours: Saturday:09:00 AM - 12:00 PM Th:09:00 AM - 12:00 PM [facility] Food Pantry by: [facility] Next Steps: Go to the nearest location to get services. About: The [facility] Food Pantry helps neighbors put healthy meals on their tables - providing food for bodies, relief to minds, and nourishment for souls. This program provides: - Nutritious food We have drive-through service. Remain in your car and open your trunk or door. Volunteers will place your food in your car. If you do not have a car, please wait in the garden and a volunteer will bring your food out to you. Nearest location: 2.43 miles away. [facility] - Food Pantry [address] [place] [address] Hours: Saturday:09:00 AM - 11:00 AM Saturday:09:00 AM - 11:00 AM Saturday:09:00 AM - 11:00 AM :09:00 AM - 11:00 AM Saturday:09:00 AM - 11:00 AM Food Pantry by: [facility] Next Steps: Go to the nearest location to get services. Call [phone] to get more info. About: The food pantry provides quality food items to households experiencing food insecurity. This program supplies critical nutrition to hungry individuals and families. This program provides: - Food to meet basic nutritional needs Must sign up prior to accessing services. Signup begins on Fridays at 1:00 p.m. and on Saturdays at 12:00 p.m. Eligibility: Anyone can access this program. Nearest location: 0.93 miles away. [facility] [address] [place] [id number] Hours: Saturday:04:30 PM - 05:30 PM Saturday:02:30 PM - 03:30 PM [employer] by: [employer] [facility] Next Steps: Call [phone] to get more info. About: [facility] [employer] provides supportive housing. It is affordable housing that provides linkages to social, health and employment services. This housing model has proven to be a successful environment for individuals who have been unable to maintain housing due to mental illness, substance addiction or chronic or episodic homelessness. This program provides: - Supportive long-term housing Supportive housing offers disabled and homeless individuals a stable living environment and the opportunity to receive treatment, find work, maintain recovery and give back to the community. Success is measured by length of stay in housing, becoming connected to supportive services and treatment and by increased income through employment or approval for entitlements such as disability benefits. Eligibility: Must meet income requirements. Nearest location: [address] [facility] [address] [place] [address] Hours: Saturday:08:00 AM - 05:00 PM Saturday:08:00 AM - 05:00 PM Saturday:08:00 AM - 05:00 PM :08:00 AM - 05:00 PM Saturday:08:00 AM - 05:00 PM Housing Information by: [facility] [employer] [facility] in [place] ([facility]) Next Steps: Call [phone] to get more info. Go to [email or web address]/housing-infor [email or web address] to get more info. About: [employer] supports [place] residents and organizations seeking guidance on a variety of housing issues: landlord-tenant law, the Fair Housing Act, tenant organization and affordable housing preservation. This program provides: - Housing advice - Help navigating the system - Legal advice for tenants and landlords facing a potential landlord-tenant issue Please note [facility] cannot provide legal representation, housing referrals, or financial institution branch manager. Eligibility: This program is for [place] residents and organizations seeking guidance on housing issues. Nearest location: 1.64 miles away. Coalition on Homelessness & Housing in [address] [place] [address] Hours: Saturday:08:00 AM - 05:00 PM Saturday:08:00 AM - 05:00 PM Saturday:08:00 AM - 05:00 PM :08:00 AM - 05:00 PM Saturday:08:00 AM - 05:00 PM Housing Choice Vouchers by: [facility] [employer] ([facility]) Next Steps: Call [phone] to get more info. Apply on their website, [email or web address]. Program availability: waitlist About: [facility] [employer] [facility] ([facility]) operates the Housing Choice Voucher (HCV) program to help very low-income families, the elderly and the disabled, with housing costs. [facility] has partnered with [facility] to provide payments to those approved for this program. This program provides: - Housing choice vouchers Participants are free to choose any housing that meets the requirements of the program and are not limited to units located in subsidized housing projects. Visit the website to apply for the waitlist. Eligibility: Must be a citizen or a non-citizen with eligible immigration status. Must be in good standing with federal housing programs. Income must be at or below 50 percent of the area median income as determined by [facility]. Nearest location: 2.86 miles away. [facility] ([facility]) [address] [place] [address] Hours: Saturday:08:00 AM - 04:30 PM Debra:08:00 AM - 04:30 PM Saturday:08:00 AM - 04:30 PM :08:00 AM - 04:30 PM Saturday:08:00 AM - 04:30 PM Family Housing by: [facility] Next Steps: Call [phone] to get more info. About: [employer] [facility] provides safe housing and comprehensive services to empower families to improve housing stability. Participants work with staff to create individualized programming that is based on their goals and barriers. We provide: - Housing Comprehensive services offered: - Finance mentoring - Employment support - Financial education - Life coaching - Peer support - Spiritual support networks - Parent coaching - Youth mentoring - Child enrichment activities Nearest location: 1.19 miles away. [facility] [address] [place] [address] Hours: Saturday:08:00 AM - 05:00 PM Saturday:08:00 AM - 05:00 PM Saturday:08:00 AM - 05:00 PM :08:00 AM - 05:00 PM Saturday:08:00 AM - 05:00 PM Affordable Housing by: [employer] Next Steps: Call [phone] to get more info. Program availability: waitlist About: [employer] provides affordable, wheelchair-accessible housing for individuals with physical disabilities who desire to further their education, pursue careers and contribute to the community. With the support of staff and the added benefit of a 24-hour, on-call Resident Assistance Program, our residents are empowered to be self-sufficient and lead full, productive lives while independently managing their disabilities. This program provides: - Affordable & accessible housing Eligibility: This program helps people who are older than 17 years old Are a person with a disability as defined by the ADA Have Low, Very Low or Extremely Low Income as defined by HUD Have a physical disability that requires use of a wheelchair Live, work or go to school in [place], [place] Nearest location: 1.[address] away[address] [address] Hours: Saturday:09:00 AM - 05:00 PM Saturday:09:00 AM - 05:00 PM Saturday:09:00 AM - 05:00 PM :09:00 AM - 05:00 PM Saturday:09:00 AM - 05:00 PM Emergency Financial Assistance by: [facility] Next Steps: Call [phone] to get more info. About: [facility]'s mission is to strengthen the well-being of [facility] children, families and community, and build a thriving equitable neighborhood. [facility] Services department provides a range of services to individuals and families living in [facility] area. Emergency Financial Assistance is offered to help [place] families with rent, utilities, prescriptions, and other critical needs and access to [facility] mobile medical unit. Nearest location: 0.91 miles away. [facility] [address] [place] [address] Hours: Saturday:08:00 AM - 05:00 PM Saturday:08:00 AM - 05:00 PM Saturday:08:00 AM - 05:00 PM :08:00 AM - 05:00 PM Saturday:08:00 AM - 05:00 PM Health Care for the Homeless by: [employer] Next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 muscles. Clear intra-orbital fat planes. The pterygoid plates and pterygopalatine fossa are normal. The zygomatic arches are normal and there is no diastasis of the frontozygomaticsuture. CT/Sinus/Facial Bone IMPRESSION: Mandibular right para-symphyseal and left mandibular angle/body fractures with related soft tissue edema and possible left master intramuscular hematoma as detailed. Reading Location: [place] [address] CC: Colin Colon DO; No Primary Care Physician ~ Computer Education Teacher: Signed [facility] 10-02-2024 Radiology Diagnostic study note [facility] Imaging Services [address] [place] [address] Spine Cervical without Contras MR#: [id number] Acct: [id number] Name: KADE GONZALEZ Rep #: [id number] : 1995 M 28 From: Olivier Colmenares MD PCP: Care Physician,No Primary Status: REG ER Study:Spine Cervical without Contras Date of Exam: 10/02/24 Exam# [id number] Ordering Dr: Anjali Colon DO PROCEDURE: SPINE CERVICAL WITHOUT CONTRAS 10/02/2024 REASON FOR EXAM: INJURY TECHNIQUE: SPINE CERVICAL WITHOUT CONTRAS Coronal and Sagittal reconstruction series were provided. One or more dose reduction techniques were used (e.g., Automated exposure control, adjustment of the mA and/or kV according to patient size, use of iterative reconstruction technique. RADIATION DOSE SUMMARY: CTDlvol: 29.38 mGy DLP: 826 mGycm COMPARISON: None. FINDINGS: Normal craniovertebral junction. Normal anterior atlantoaxial articulation. Normal odontoid process. Normal cervical lordosis. Normal vertebral bodies and posterior osseous elements. C2-3: Normal endplates. Normal disc height and morphology. Normal bilateral uncovertebral and apophyseal joints. Normal central canal and intervertebral neuroforamina. C3-4: Normal endplates. Normal disc height and morphology. Normal bilateral uncovertebral and apophyseal joints. Normal central canal and intervertebral neuroforamina. C4-5: Normal endplates. Normal disc height and morphology. Normal bilateral uncovertebral and apophyseal joints. Normal central canal and intervertebral neuroforamina. C5-6: Normal endplates. Normal disc height and morphology. Normal bilateral uncovertebral and apophyseal joints. Normal central canal and intervertebral neuroforamina. C6-7: Normal endplates. Normal disc height and morphology. Normal bilateral uncovertebral and apophyseal joints. Normal central canal and intervertebral neuroforamina. C7-T1: Normal endplates. Normal disc height and morphology. Normal bilateral uncovertebral and apophyseal joints. Normal central canal and intervertebral neuroforamina. Soft tissue emphysema in the left aspect of the neck. CT/Spine Cervical without Contras IMPRESSION: Soft tissue emphysema in the left aspect of the neck. No CT evidence of an acute fracture or dislocation. Reading Location: [place] [address] CC: Colin Colon DO; No Primary Care Physician ~ Computer Education Teacher: Signed [facility] 10-02-2024 Radiology Diagnostic study note [facility] Imaging Services [address] [place] [address] Brain/Head without Contrast MR#: [id number] Acct: [id number] Name: DAISYKADE REYNOLDS Rep #: [id number] : 1995 M 28 From: Olivier Colmenares MD PCP: Care Physician,No Primary Status: REG ER Study:Brain/Head without Contrast Date of Exa m: 10/02/24 Exam# [id number] Ordering Dr: Anjali Colon DO PROCEDURE: BRAIN/HEAD WITHOUT CONTRAST 10/02/2024 REASON FOR EXAM: INJURY TECHNIQUE: BRAIN/HEAD WITHOUT CONTRAST Coronal and Sagittal reconstruction series were provided. One or more dose reduction techniques were used (e.g., Automated exposure control, adjustment of the mA and/or kV according to patient size, use of iterative reconstruction technique. RADIATION DOSE SUMMARY: CTDlvol: mGy DLP: mGycm COMPARISON: none FINDINGS: The visualized brain parenchyma shows normal appearance. No focal parenchymal abnormalities are demonstrated. Ba-white matter differentiation is maintained. Normal CT appearance of the posterior fossa structures. No intracerebral or extra-axial hemorrhage. Smooth bilateral tentorial and Falcine hyperdensities, possibly artifactual related to the patient hydration status. No midline shifts or deformity. Normal size and configuration of the cerebral ventricles. No definite calvarial fractures. The osseous structures in the skull base are unremarkable. Occipital scalp metallic density noted. CT/Brain/Head without Contrast IMPRESSION: No intracerebral or extra-axial hemorrhage. No acute cerebrovascular insult. If clinical symptoms persist, further evaluation with MRI may be considered as clinically warranted. Reading Location: [place] [address] CC: Colin Colon DO; No Primary Care Physician ~ Computer Education Teacher: Signed [facility] 10-01-2024 Progress note Note Date/Time October 01, 2024 9:38am [facility] Medical Records Department [address] [place] [address] Progress Note - Hospitalist 10/01/24 0934 MR#: [id number] Acct: [id number] Name: KADE GONZALEZ Rep #:[id number] : 1995 28 From: Rachel Stephen MD PCP: Care Physician,No Primary Status :ADM IN Location: [place] [address] Reason for Visit Chief Complaint: EtOH Detoxification. [...] Multi Select Codes Visit Charges Visit Charges: 20027 PROLNG IP/OBS E/M EA 15 MIN 10/01/24 0938 <Electronically signed by Rachel Stephen MD> Cosigner Signature (if applicable): CC: ~ Signed [facility] Work Phone: 1(288) 773-309408-21-2025 Progress note [facility] Medical Records Department [address] [place] [address] Progress Note - Hospitalist 10/01/24 0934 MR#: [id number] Acct: [id number] Name: DAISYKADE REYNOLDS Rep #:[id number] : 1995 28 From: Rachel Stephen MD PCP: Care Physician,No Primary Status :ADM IN Location: [place] [id number] Reason for Visit Chief Complaint: EtOH Detoxification. [...] Multi Select Codes Visit Charges Visit Charges: 43156 PROLNG IP/OBS E/M EA 15 MIN 10/01/24 0938 Cosigner Signature (if applicable): CC: ~ Signed [facility]08-21-2025 History and physical note Author Jacquie Beckwith [facility] Note Date/Time October 01, 2024 2: 22am [facility] Medical Records Department [address] [place] [address] H&P Exam - Hospitalist 10/01/24 0151 MR#: [id number] Acct: [id number] Name: KADE GONZALEZ Rep #:[id number] : 1995 28 From: Jacquie Beckwith MD PCP: Care Physician,No Primary Status :ADM IN Location[place] [facility] [id number] HPI - General General Date of Admission: 10/01/24 Date of Service: 10/01/24 Chief Complaint: EtOH Detoxification. HPI Narrative The patient is a 28 y/o M w/ PMHx: Chart reported Hx Polysubstance abuse (crack/cocaine and amphetamines), Tobacco use, EtOH abuse (Lower proof liquor, wine, 24 beers daily/mix), Anxiety and Depression, Asthma, Chronic migraines, recent day prior ED evaluation 09/29/2024 per clinic sync documentation [...] for court date with then referral to [address] [place] [address] EtOH rehab facility; however, unfortunately instead of [...] back of the scalp. Work-up in the OSH ED 09/30/2024 included VS 130/77, AF, HR [...] for transition to avoid alcohol withdrawal symptoms. [facility] Medical History Substance abuse Depression Smoker [...] Depression, Asthma, Chronic migraines, recent day prior ED evaluation 09/29/2024 per clinic sync documentation [...] desired EtOH detoxification admission prompting transition to [facility]. #1. EtOH Abuse with Impending Acute EtOH Withdrawal: Will admit to MS, routine labs obtained in the OSH ED. Given interest in sobriety, will admit to MS, will initiate and continue on protocol with taper course of Phenobarbital, as needed gabapentin, Catapres, Bentyl, Vistaril, IV fluids, IV antiemetics, Tylenol as needed for pain. Will consult Case management for assistance for transition to next level of rehabilitation care ([facility] which per OSH ED is already set-up/patient [...] encourage ambulation. Charges/Coding Visit Charges Inpatient E&M: 78434 Init Hosp L2 10/01/24 0222 <Electronically signed by Jacquie Beckwith MD> Cosigner Signature (if applicable): CC: Dr. Jacquie Beckwith MD; No Primary Care Physician~ Signed [facility] Work Phone: 1(548) 608-954308-21-2025 Evaluation note* Diagnosis Onset Date Resolution Status Admit Date Admitted to alcohol detoxification center acute September 12:22am [facility] Work Phone: 1(124) 275-455008-21-2025 History and physical note [facility] Medical Records Department [address] [place] [address] H&P Exam - Hospitalist 10/01/24 0151 MR#: [id number] Acct: [id number] Name: KADE GONZALEZ Rep #:[id number] : 1995 28 From: Jacquie Beckwith MD PCP: Care Physician,No Primary Status :ADM IN Location: 3 [id number] HPI - General General Date of Admission: 10/01/24 Date of Service: 10/01/24 Chief Complaint: EtOH Detoxification. HPI Narrative The patient is a 28 y/o M w/ PMHx: Chart reported Hx Polysubstance abuse (crack/cocaine and amphetamines), Tobacco use, EtOH abuse (Lower proof liquor, wine, 24 beers daily/mix), Anxiety and Depression, Asthma, Chronic migraines, recent day prior ED evaluation 09/29/2024 per clinic sync documentation [...] for courtdate with then referral to [facility] EtOH rehab facility; however, unfortunately instead of [...] back of the scalp. Work-up in the [facility] ED 09/30/2024 included VS 130/77, AF, HR [...] for transition to avoid alcohol withdrawal symptoms. [facility] Medical History Substance abuse Depression Smoker [...] x 3 and cooperative, seated upright in MA bed, denies any alcohol withdrawal symptoms. Skin: [...] Depression, Asthma, Chronic migraines, recent day prior ED evaluation 09/29/2024 per clinic sync documentation [...] desired EtOH detoxification admission prompting transition to [facility]. #1. EtOH Abuse with Impending Acute EtOH Withdrawal: [facility] to [facility], [facility]. Given interest in sobriety, will admit to MS, will initiate and continue on protocol with taper course of Phenobarbital, as needed gabapentin, Catapres, Bentyl, Vistaril, IV fluids, IV antiemetics, Tylenol as needed for pain. Will consult Case management for assistance for transition to next level of rehabilitation care ([facility] which per OSH ED is already set-up/patient acceptedfollowing acute detoxification completion). Mag, phos pending. Maintain on CIWA protocol concurrently. #2. Anxiety and depression: Notable contributing to his substance abuse. RecentCrisis evaluation atOSH ED with safety plan at that time [...] encourage ambulation. Charges/Coding Visit Charges Inpatient E&M: 89902 Init Hosp L2 10/01/24 0222 Cosigner Signature (if applicable): CC: Dr. Jacquie Beckwith MD; No Primary Care Physician~ Signed [facility]05-01-2025 Emergency department Note* Tash Burt RN - 06/11/2024 7:20 AM EDT Report given to Holli AVENDAÑO. [id number] Emergency department Note* Tash Burt RN - 06/11/2024 7:20 AM EDT Report given to Holli AVENDAÑO. * Tash Burt RN - 06/11/2024 5:08 AM EDT Pt ambulated independently back and forth to the restroom. 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 Pt currently on property assessment monitor; sts that the pain starts in the L shoulder and radiates into the neck and then jaw. * Tash Brut RN - 06/11/2024 4:38 AM EDT Pt heading to xray with transport. * SHAYLEE Bae CNP - [...] Response: Oriented Best Motor Response: Follows commands Reading Coma Scale Score: 15 HEART Score History: [...] - Normal ETHANOL IN SER/PLAS <10 Narrative: [employer]ER depression is seen >100 mg/dL. NOTE: This [...] Bae CNP 06/11/24 0659 documented in this encounterSumma [id number] Emergency department Note* Tash Burt RN - 06/11/2024 5:08 AM EDT Pt ambulated independently back and forth to the restroom. 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 Pt currently on property assessment monitor; sts that the pain starts in the L shoulder and radiates into the neck and then jaw. [facility] [id number] Emergency department Note* Tash Burt RN - 06/11/2024 4:38 AM EDT Pt heading to xray with transport. [facility] [id number] Physician Emergency department Note* SHAYLEE Bae CNP [...] History Socioeconomic History Marital status: Single SCREENINGS Reading Coma Scale Best Eye Response: Spontaneous Best [...] - Normal ETHANOL IN SER/PLAS <10 Narrative: CIGARETTE P[employer]ER depression is seen >100 mg/dL. NOTE: This [...] Provider SHAYLEE Bae CNP 06/11/24 0659 [id number] Emergency department Note* Daina Chung RN - 06/10/2024 10:50 PM EDT Pt did not want to wait to be seen. Pt seen walking out of ED. Pt A&OX4. Steady gait noted. No IV access obtained during visit. [facility] [id number] Emergency department Note* Daina Chung RN - [...] Barcenas PA-C 06/11/24 0118 documented in this encounterSParkview Health Montpelier [id number] Emergency department Triage note* Danita Guevara RN - 06/10/2024 10:37 PM EDT Pt states he called poison control due to mixing alcohol and ice. Pt states he has been drinking beer all day. [facility] [id number] Physician Emergency department Note* Danita Barcenas PA-C - 06/10/2024 10:21 PM EDT Patient left without being seen after initial triage by nursing staff. As such, I did not participate in the care of this patient. Danita Barcenas PA-C 06/11/24 0118 [facility] Work Phone: 1(599) 120-191412-17-2024 History of Present illness Narrative* SHAYLEE Burch NP - 01/28/2024 2:00 PM EST Images from the original note were not included. [facility] [address] [place] [id number] Dept: [phone] Dept Loc: [phone] Subjective Kade Barrera is a 28 y.o. [...] forclarification) ALAINA Burch 01/28/24 documented in this [facility]05-09-2024 Hospital Discharge instructions Patient Education 06/20/2023 19:08:45 Alcohol Withdrawal Syndrome, Eeme-yf-Mfte Alcohol Withdrawal Syndrome When a person who [...] away. Follow these instructions at home: Take tlao-sxh-btddjbw and prescription medicines only as told by [...] 07/16/2008 Document Revised: 01/10/2018 Document Reviewed: 10/04/2017 [employer] Patient Education 2020 [employer]Mdesigner. 06/20/2023 02:18:58 Seizure, New Onset, Unknown Cause [...] told. 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 [address], [place] [address]. All rights reserved. This information is not intended as a substitute for professional medical care. Always follow yourhealthcare professional's instructions. Follow Up Care 06/20/2023 02:07:45 With:YUKI DECKER DO Address: [address] [place] [phone] When: Unknown Comments:Please follow-up for your post-hospital follow-up appointment. [facility] 05-09-2024 Note Discharge Instructions Thank you for allowing [facility] to assist you with your healthcare needs. The following is importantdischarge information regarding your hospital visit. Your Diagnosis Alcohol dependence Depression with anxiety Seizure Seizure Seizure due to alcohol withdrawal What to do next Follow Up Appointments Follow Up with YUKI DECKER DO When Why: Please follow-up for your post-hospital follow-up appointment. Where: [address] [place] [phone] The Following Activity and Diet Have Been [...] or retail pharmacies. Medication Leaflets chlordiazepoxide (SUDHEER MUÑOZ e POX sangita) What is the most [...] What is chlordiazepoxide? Chlordiazepoxide is a benzodiazepine (hpt-vif-kgt-AZE-eh-peen) that is used to treat anxiety disorders. [...] may report side effects to FDA at 6-477-OSM-4357. What other drugs will affect chlordiazepoxide? Using chlordiazepoxide with other drugs that make you sleepy or slow your breathing can cause dangerous side effects or . Ask your doctor before using opioid medication, a sleeping pill, a muscle relaxer, or medicine for anxiety or seizures. Other drugs may affect chlordiazepoxide, including prescription and psaz-swt-arhfkov medicines, vitamins, and herbal products. Tell your [...] to ensure that the information provided by [employer] ('[employer]') is accurate, up-to-date, and complete, but no guarantee is made to that effect. Drug information contained herein may be time sensitive. [employer] information has been compiled for use by healthcare practitioners and consumers in the [place] and therefore [employer] does not warrant that uses outside of the [place] are appropriate, unless specifically indicated otherwise. [employer] drug information does not endorse drugs, diagnose patients or recommend therapy. [employer] drug information isan informational resource designed to [...] effective or appropriate for any given patient. [employer] does not assume any responsibility for any aspect of healthcare administered with the aid of information [employer] provides. The information contained herein is not intended to cover all possible uses, directions, precautions, warnings, drug interactions, allergic reactions, or adverse effects. If you have questions about the drugs you are taking, check with your doctor, nurse or pharmacist. Copyright 3366-0125 [employer]. Version: 12.12. Revision Date: 09/12/2022. Education Materials [...] away. Follow these instructions at home: Take egwz-oav-lpqukhq and prescription medicines only as told by [...] 07/16/2008 Document Revised: 01/10/2018 Document Reviewed: 10/04/2017 [employer] Patient Education 2020 EDMdesigner. Seizure: New Onset with Unknown Cause (Adult) [...] told. 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 [address], [place] [address]. All rights reserved. This information is not intended as a substitute for professional medical care. Always follow yourhealthcare professional's instructions. Additional Information VACCINATE! IT SAVES LIVES! Members of the community who have not yet received the COVID-19 vaccine and would like to receive it can visit one of [facility] vaccine clinics. There are many vaccine clinic locations within the [facility]. For locations and available times, please visit [email or web address]/. It is important to note that some COVID mobile vaccine clinics are held outdoors and may be canceled in rainy or stormy conditions. To learn more about pediatric vaccinations (ages 5-11), we invite you to visit the [facility] webpage. [email or web address]/[email or web address]-[email or web address]-Dsd [email or web address].htmlTo learn more about the COVID-19 vaccine, we invite you to visit the CDC website for a list of frequently asked questions.https://www.cdc.gov/coronavirus/2019-ncov/vaccines/faq.html [facility] Patient Portal Access Instructions: Stay connected with your healthcare team and access your personal medical information anytime with the [facility] Patient Portal. Please follow the directions below to create your [facility] account: 1.Access the email account you provided upon registration to the hospital/physician office.2.Look for an invitation email from [facility].3.Open the email and access the invitation link: AcceptInvitation to [employer].4.Fill in the required emmanuel to create your account. To access your account, visit [employer]. Click the blue button labeled Access Patient Portal and then log in with the username and password that you created in the steps above. You will be able to view your test results, lab results, a summary of your visits, upcoming appointments and more. There is also a convenient messaging option where you can send secure messages to your p rovider. In addition, you will have the ability to download any documents or summaries to your computer and/or send the information securely to a physician. Remember that your healthcare information is confidential, so carefully consider who you will allowto register on the [facility] Patient Portal for access to your information. You can also access the [facility] Patient Portal on the [facility] pura. Simply click on Patient Portal and then log into your account. If you would like to receive a full copy of your medical records, please contact the [facility] Medical Records Department by calling [phone], Saturday through Saturday between 8 a.m. and [...] Call your local pharmacy or go to [email or web address]/9A6Sr7g to find one close to you.3.Make use of household items: Use cat litter or old coffee grounds to dispose medications if other options arenot available. Mix your drugs with these household products, seal them in an airtight container andthrow it into the garbage. Call [facility]: [phone] to be sure your drugs can be [...] Signatures Patient Education Materials Alcohol Withdrawal Syndrome, Lslv-ri-Vsnl Seizure, New Onset, Unknown Cause (Adult) Medication Leaflets chlordiazePOXIDE My discharge plan and instructions have been reviewed and explained to me and I,KADE GONZALEZ understand my current condition and have read and understand these discharge instructions. I havereceived a written copy of the plan/instructions. If I have questions, I am aware that I should contact my doctor. 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 Patient was at [facility] ED earlier in the day with chest [...] ANA MARIA PEREZ on 06/20/2023 02:41 PM [facility]05-09-2024 Evaluation + Plan noteExtracted from: Title:History [...] and may include grammatical and/or spelling errors. [facility] 05-09-2024 Note ORIGINAL EXAMINATION: ONE XRAY [...] Sign Date: 06/20/2023 3:12:39 AM Ordering Provider: [facility]05-09-2024 Note ORIGINAL EXAMINATION: CT OF THE [...] Sign Date: 06/20/2023 3:20:14 AM Ordering Provider: [facility]05-09-2024 Note ORIGINAL EXAMINATION: CT OF THE [...] shift. No abnormal extra-axial fluid collection. The ba-white differentiation is maintained without evidence of an [...] Date: 06/20/2023 3:18:15 AM [facility] NoteSinus tachycardia Electronic Signature: MICHAEL PADRON DO 06/20/2023 02:28:09[facility] 05-08-2024 Discharge summary Author Carmelo Mccray [facility] June 20, 2023 12:34am Note Date/Time June 19, 2023 9:50pm [facility] Medical Records Department [address] [place] [address] Emergency Department Summary 06/19/23 MR#: [id number] Acct: [id number] Name: KADE GONZALEZ Rep #:[id number] : 1995 27 From: Carmelo Clarke PCP: [...] his symptoms betterand nothing makes them worse. [facility] Medical History Alcohol abuse Alcohol [...] % (Auto) 60.8 Lymph % (Auto) 28.9 Wagoner % (Auto) 8.4 Eos % (Auto) 0.6 [...] sinus rhythm with a rate of 75. NV interval, QRS interval, and QTc intervals were all normal. [place] was normal. There are no acute ST [...] your Primary Care Provider. Call [facility] ([phone]) or report to the closest Emergency Room. Call 911 if necessary. 06/20/2333 <Electronically signed by Carmelo Mccray DO> Cosigner Signature (if applicable): CC: No Primary Care Physician ~ Signed [facility] Work Phone: 1(515) 370-223603-20-2024 Progress note Author Carmelo Albert [facility] May 01, 2023 9:43am Note Date/Time May 01, 2023 7:0 1am [facility] Medical Records Department [address] [place] [address] Progress Note - Hospitalist 05/01/23 0658 MR#: [id number] Acct: [id number] Name: KADE GONZALEZ Rep #:[id number] : 1995 27 From: Carmelo Albert DO [...] (Auto) 49.6, Lymph % (Auto) 41.9 H, Wagoner % (Auto) 6.5, Eos % (Auto) 0.3, Baso % (Auto) 1.2 H, Absolute Neuts (auto) 4.9, Absolute Lymphs (auto) 4.15, Nucleated RBC % 0, Differential Comment SCANNED, Diff Path Review June foll, PT 13.5, INR 1.0, Sodium 143, Potassium [...] type admission. Charges/Coding Visit Charges Inpatient E&M: 10948 Subs Hosp L2 05/01/23 0943 <Electronically signed by Carmelo Albert DO> Cosigner Signature (if applicable): CC: ~ Signed [facility] Work Phone: 1(102) 737-361403-20-2024 Discharge summary Author Marcio Cardona [facility] May 01, 2023 6:26am Note Date/Time May 01, 2023 5:2 8am [facility] Medical Records Department [address] [place] [address] Emergency Department Summary 05/01/23 MR#: [id number] Acct: [id number] Name: KADE GONZALEZ Rep #:[id number] : 1995 27 From: Marcio Cardona MD [...] does not intend to do that again. [facility] Medical History (Updated 05/01/23 @ 05:[address] Jacquie Beckiwth MD) Alcohol abuse Anxiety and depression Asthma [...] problems, contact your Primary Care Provider. Call [facility] [employer] ([phone]) or report to the closest Emergency Room. Call 911 if necessary. 03/20/24 06 <Electronically signed by Marcio Cardona MD> Cosigner Signature (if applicable): CC: No Primary Care Physician ~ Signed [facility] Work Phone: 1(225) 334-926303-20-2024 History and physical note Author Jacquie Beckwith [facility] May 01, 2023 5:50am Note Date/Time May 01, 2023 5:3 3am [facility] Medical Records Department [address] [place] [address] H&P Exam - Hospitalist 05/01/23 0532 MR#: [id number] Acct: [id number] Name: KADE GONZALEZ Rep #:[id number] : 1995 27 From: Jacquie Beckwith MD [...] Asthma, Chronic migraines who presents to the [facility] ED on 05/01/23 withlast EtOH intake [...] administered phenobarbital 97.2 mg p.o. x 1. [facility] Medical History (Updated 05/01/23 @ 05:48 [...] Asthma, Chronic migraines who presents to the [facility] ED on 05/01/23 withlast EtOH intake [...] type admission. Charges/Coding Visit Charges Inpatient E&M: 96169 Init Hosp L2 05/01/23 0550 <Electronically signed by Jacquie Beckwith MD> Cosigner Signature (if applicable): CC: Dr. Jacquie Beckwith MD; No Primary Care Physician~ Signed [facility] Work Phone: 1(642) 762-334502-10-2024 History and physical note Author Stan Thomas [facility] March 23, 2023 12:48am Note Date/Time March 23, 2023 12:18am [facility] Medical Records Department [address] [place] [address] H&P Exam - Hospitalist 03/23/23 0017 MR#: [id number] Acct: [id number] Name: KADE GONZALEZ Rep #:[id number] : 1995 27 From: Stan Bullock PCP: Care Physician,No Primary Status :ADM IN Location: [place] 040063-1 HPI - General General Date of Admission: 03/23/23 Date of Service: 03/23/23 Chief Complaint: Alcohol withdrawal symptoms. Feeling restless, drowsy and lethargic HPI Narrative KADE GONZALEZ, is a 27 M with history of [...] including hematemesis melena or alcoholic liver disease [facility] Medical History Alcohol abuse Anxiety Asthma [...] % (Auto) 58.3, Lymph % (Auto) 34.2, Wagoner% (Auto) 6.3, Eos % (Auto) 0.1, Baso [...] MedSurg floor. Patient is being admitted to MedSur floor. Patient on phenobarbital based order set along with other adjunctive medications gabapentin, Bentyl, Vistaril, clonidine, Klonopin as needed for alcohol withdrawal symptom control. Patient is on thiamine and folate acid. Twelve-lead EKG shows sinus tachycardiaat 108 bpm. Liver chemistry normal limit. GGT pending. Serum alcohol was highat 212. CIWA monitor. music manager consulted.. 2. Chronic nicotine use/cigarette smoking: [...] % (Auto) 58.3, Lymph % (Auto) 34.2, Wagoner% (Auto) 6.3, Eos % (Auto) 0.1, Baso [...] Alcohol 212.0 Charges/Coding Visit Charges Inpatient E&M: 84541 Init Hosp L3 03/23/23 0048 <Electronically signed by Stan Thomas MD> Cosigner Signature (if applicable): CC: Dr. Stan Thomas MD; No Primary Care Physician~ Signed [facility] Work Phone: 1(257) 125-283802-10-2024 Discharge summary Author Daquan [facility] March 23, 2023 12:42am Note Date/Time March 22, 2023 1 0:17pm [facility] Medical Records Department [address] [place] [address] Emergency Department Summary 03/22/23 MR#: [id number] Acct: [id number] Name: DAISYKADE HANSEN Rep #:[id number] : 1995 27 From: Daquan Reid MD PCP: Care Physician,No Primary Status :ADM IN Location: [place] 040063-[address] Daquan Reid MD on [...] detox last year, then went through [facility]. [facility] Medical History Alcohol abuse Anxiety [...] discussed with Dr. Thomas for admission to [facility] for detox from alcohol. Patient is [...] % (Auto) 58.3 Lymph % (Auto) 34.2 Wagoner % (Auto) 6.3 Eos % (Auto) 0.1 [...] alcohol intoxication Disposition Disposition: Acute Care Hospital [facility] What to do if you have Problems For any increased pain, shortness of breath, bleeding, nausea or vomiting, chestpain, or any unexpected problems, contact your Primary Care Provider. Call [facility] ([phone]) or report to the closest Emergency Room. Call 911 if necessary. 03/23/23 0018 <Electronically signed by Daquan Reid MD> Cosigner Signature (if applicable): CC: No Primary Care Physician ~ Signed [facility] Work Phone: 1(412) 937-492702-10-2024 Discharge summary Author Daquan Reid [facility] March 23, 2023 12:42am Note Date/Time March 22, 2023 1 0:17pm [facility] Medical Records Department [address] [place] [address] Emergency Department Summary 03/22/23 MR#: [id number] Acct: [id number] Name: KADE GONZALEZ Rep #:[id number] : 1995 27 From: Daquan Reid MD PCP: Care Physician,No Primary Status :ADM IN Location: [place] [address]-[address] Daquan Reid MD on [...] detox last year, then went through [facility]. [facility] Medical History Alcohol abuse Anxiety [...] discussed with Dr. Thomas for admission to [facility] for detox from alcohol. Patient is [...] % (Auto) 58.3 Lymph % (Auto) 34.2 Wagoner % (Auto) 6.3 Eos % (Auto) 0.1 [...] alcohol intoxication Disposition Disposition: Acute Care Hospital [facility] What to do if you have Problems For any increased pain, shortness of breath, bleeding, nausea or vomiting, chestpain, or any unexpected problems, contact your Primary Care Provider. Call [facility] ([phone]) or report to the closest Emergency Room. Call 911 if necessary. 03/23/2317 <Electronically signed by Daquan Reid MD> Cosigner Signature (if applicable): CC: No Primary Care Physician ~ Signed [facility] Work Phone: 1(718) 966-189206-27-[address] Albert [facility] August 07, 2022 9:19am Note Date/Time August 07, 2022 9:18 am [facility] Medical Records Department [address] [place] [address] Instructions for Home/Discharge Instructions 08/07/22917 MR#: [id number] Acct: [id number] Name: KADE GONZALEZ Rep #:[id number] : 1995 26 From: Carmelo Albert DO PCP: [place] Physician,No Primary Status :ADM IN Discharge Instructions [...] Albert DO>Carmelo Albert DO CC: Dr. Ashley Hirsch DO; No Primary Care Physician ~ Signed [facility] Work Phone: [phone]) 530-291006-27-[address] Albert [facility] August 07, 2022 9:19am Note Date/Time August 07, 2022 9:19 am [facility] Medical Records Department [address] [place] [address] Discharge Summary 08/07/22 0919 MR#: [id number] Acct: [id number] Name: KADE GONZALEZ Rep #:[id number] : 1995 From: Carmelo Albert DO PCP: Care Physician,No Primary Status :ADM IN Location: [place] [address]40062-1 Providers Date of Admission: 08/05/22 Primary Care [...] Patient to follow up with [facility] for inpatient treatment on 08/08 Given reported [...] Self Care Charges/Coding Visit Charges Inpatient E&M: 61715 Disch Hosp 08/07/22918 <Electronically signed by Carmelo Albert DO> Cosigner Signature (if applicable): CC: Dr. Carmelo Albert DO; No Primary Care Physician~ Signed [facility] Work Phone: 1([phone]) 865-141506-27-[address] Albert [facility] August 07, 2022 9:18am Note Date/Time August 07, 2022 8:02 am [facility] Medical Records Department [address] [place] [address] Progress Note - Hospitalist 08/07/22800 MR#: [id number] Acct: [id number] Name: KADE GONZALEZ Rep #:[id number] : 1995 From: Carmelo Albert DO PCP: Care Physician,No Primary Status :ADM IN Location: [facility] FO007-7 Reason for Visit Reason for Visit: Diagnoses [...] Patient to follow up with [facility] for inpatient treatment on 08/08 Given reported [...] Cosigner Signature (if applicable): CC: ~ Signed [facility] Work Phone: [phone]) 910-716106-26-[address] Albert [facility] August 06, 2022 12:45pm Note Date/Time August 06, 2022 8:25 am [facility] Medical Records Department [address] [facility] [place] [address] Progress Note - Hospitalist 08/06/22822 MR#: [id number] Acct: [id number] Name: DAISYKADEKylah HANSEN Rep #:[id number] : 1995 26 From: Carmelo Albert DO PCP: Care Physician,No Primary Status :ADM IN Location: [place] [address] Reason for Visit Reason for Visit: Diagnoses [...] % (Auto) 56.8, Lymph % (Auto) 33.2, Wagoner% (Auto) 8.3, Eos % (Auto) 0.3, Baso [...] Patient to follow up with [facility] for inpatient treatment on 08/08 PLAN: Plan Chronic complicating conditions: * Polysubstance abuse-Patient admits to utilizing cocaine and methamphetamines as well-Recommend cessation-180 consultation * Tobacco abuse-Recommend cessation-Nicotine patch DVT prophylaxis -Low risk -Recommend early and frequent ambulation CODE STATUS -Full code Charges/Coding Visit Charges Inpatient E&M: 26826 Subs Hosp L1 08/06/22 7082 <Electronically signed by Carmelo Albert DO> Cosigner Signature (if applicable): CC: ~ Signed [facility] Work Phone: 1([phone]) 619-384806-25-[address] Ridley [facility] August 05, 2022 7:14pm Note Date/Time August 05, 2022 3:51 pm [facility] Medical Records Department [address] [place] [address] Emergency Department Summary 08/05/22 MR#: [id number] Acct: [id number] Name: KADE GONZALEZ Rep #:[id number] : 1995 26 From: Cadence CAMPA PCP: Care Physician,No Primary Status :ADM IN Location: [facility] GG187-2 HPI <KATHERYN Mcdowell - Last Filed: 08/05/22 [...] <KATHERYN Mcdowell - Last Filed: 08/05/22 17:08> [facility] Medical History (Updated 08/05/22 @ 17:[address] Ashley Hirsch, ) No acute medical problems Polysubstance abuse Tobacco [...] % (Auto) 56.8 Lymph % (Auto) 33.2 Wagoner % (Auto) 8.3 Eos % (Auto) 0.3 [...] (Auto) Neut % (Auto) Lymph % (Auto) Wagoner % (Auto) Eos % (Auto) Baso % [...] Ridley MD - Last Filed: 08/05/22 16:54> [facility] Lab Data Labs: Laboratory Results - last 24 hr 08/05/22 08/05/22 08/05/22 15:56 15:56 15:56 WBC 7.1 RBC 4.56 L Hgb 14.6 Hct 41.3 MCV 90.6 MCH 32.0 MCHC 35.4 RDW Std Deviation 38.1 RDW Coeff of Jessica 11.6 Plt Count 249 MPV 9.1 Immature Gran % (Auto) 0.400 Neut % (Auto) 56.8 Lymph % (Auto) 33.2 Wagoner % (Auto) 8.3 Eos % (Auto) 0.3 [...] (Auto) Neut % (Auto) Lymph % (Auto) Wagoner % (Auto) Eos % (Auto) Baso % [...] Re-Evaluation :: Patient seen and evaluated with [facility]. I personally interviewed and examined the patient. [...] Chief Complaint: Substance Abuse ED Midlevel Provider: Cadence Cornelius ED Provider: Fior Ridley Dx/Rx/DC Orders Primary Care Provider: Care Physician,No Primary What to do if you have Problems For any increased pain, shortness of breath, bleeding, nausea or vomiting, chestpain, or any unexpected problems, contact your Primary Care Provider. Call [facility] ([phone]) or report to the closest Emergency Room. Call 911 if necessary. 08/05/221707 <Electronically signed by Cadence CAMPA> Cosigner Signature (if applicable): 08/05/221913 <Electronically signed by Fior Ridley MD> CC: No Primary Care Physician ~ Signed [facility] Work Phone: 1(305) 234-515706-25-2023 History and physical note Author Dr. Hirsch [facility] August 05, 2022 5:16pm Note Date/Time August 05, 2022 5:05 pm [facility] Medical Records Department [address] [place] [address] H&P Exam - Hospitalist 08/05/221700 MR#: [id number] Acct: [id number] Name: KADE GONZALEZ Rep #:[id number] : 1995 From: Ashley Hirsch DO PCP: Care Physician,No Primary Status :ADM IN Location: MA3 BD850-4 HPI - General General Date of Admission: 08/05/22 Date of Service: 08/05/22 Chief Complaint: Desire for detoxification from alcohol HPI Narrative KADE GONZALEZ, is a 26 M who presented to the emergency department at [facility] on 08/05/2022 requesting detox from alcohol. [...] discharge is for readmission into inpatient rehab. [facility] Medical History No acute medical problems [...] % (Auto) 56.8, Lymph % (Auto) 33.2, Wagoner% (Auto) 8.3, Eos % (Auto) 0.3, Baso [...] -Full code Charges/Coding Visit Charges Inpatient E&M: 42625 Init Hosp L2 08/05/22 1716 <Electronically signed by Ashley Hirsch DO> Cosigner Signature (if applicable): CC: Dr. Ashley Hirsch DO; No Primary Care Physician~ Signed [facility] Work Phone: Discharge summary Author Marcio Cardona [facility] May 01, 2023 6:26am Note Date/Time May 01, 2023 5:2 8am [facility] Medical Records Department [address] [place] [address] Emergency Department Summary 05/01/23 MR#: [id number] Acct: [id number] Name: KADE GONZALEZ Rep #:[id number] : 1995 27 From: Marcio Cardona MD [...] does not intend to do that again. [facility] Medical History (Updated 05/01/23 @ [...] your Primary Care Provider. Call [facility] ([phone]) or report to the closest Emergency Room. Call 911 if necessary. 05/01/23625 <Electronically signed by Marcio Cardona MD> Cosigner Signature (if applicable): CC: No Primary Care Physician ~ Signed [facility] Work Phone: Discharge summary Author Colin Colon [facility] Note Date/Time October 02, 2024 7: 26am [facility] Medical Records Department [address] [place] [address] Emergency Department Summary 10/02/24 MR#: [id number] Acct: [id number] Name: KADE GONZALEZ Rep #:[id number] : 1995 28 From: Colin Colon DO PCP: Care Physician,No Primary Status :REG ER Location: ED HPI History of Present Illness Chief Complaint: Head Injury Informant: patient and EMS Narrative Narrative: Please see the previous note about the patient's initial presentation. He left AGAINST MEDICAL ADVICE because he wanted to smoke a cigarette. Reportedly afterhe did this he now wishes to be reevaluated and states that he will not leave again with need to smoke. Patient is a 28-year-old male with past medical history of polysubstance abuse alcohol abuse and tobacco use. He was recently in our hospital for alcohol detox. However he wanted to have a cigarette and was informed he cannot do so in which he received either nicotine gum or a patch. According to the note thiswas not acceptable for the patient he decided to leave the hospital AGAINST MEDICAL ADVICE on October 01. EMS states that the patient was found outside the police station with signs of trauma to his head/face. Reportedly the patient states he does not know how he sustained the injuries or who called EMS. However with obvious signs of trauma and patient denying any cause for them he was brought in for evaluation. PFSH PFSH Medical History Substance abuse Depression Smoker Anxiety and depression Alcohol dependence Asthma Migraines Polysubstance abuse Tobacco abuse Alcohol abuse Home Medications ?Medication ?Instructions ?Recorded ?Last Taken ?Type NK 08/05/22 Unknown History Allergy/AdvReac Type Severity Reaction Status Date / Time No Known Allergies Allergy Verified 10/02/24 04:05 Family History Uncle Alcohol abuse Paternal uncles. [...] or change in vision ENT ENT ED: Reports other Details: Positive facial pain and swelling Cardiovascular Cardiovascular: Denies chest pain, palpitations or racing heartbeat Respiratory/Chest Respiratory/Chest: Denies cough or dyspnea Gastrointestinal Gastrointestinal: Denies abdominal pain, nausea or vomiting Genitourinary Genitourinary ED: Denies dysuria or hematuria Musculoskeletal Musculoskeletal: Denies back pain or neck pain Integumentary Reports Abrasions Neurologic Neurologic: Reports headache(s); Denies paresthesias or weakness Hematologic/Lymphatic Hematologic/Lymphatic: Denies easy bleeding or easy bruising EXAM Physical Exam Const Vital Signs: 10/02/24 04:55 10/02/24 05:11 10/02/24 05:54 Temperature 98.3 F Temperature Source Oral Pulse Rate 100 74 Respiratory Rate 18 18 Respiratory Effort Normal Non-Labored Respiratory Depth Normal Respiratory Pattern Normal Blood Pressure 145/93 H 125/75 H Blood Pressure Mean 110 91 Pulse Ox 97 99 98 Oxygen Delivery Method Room Air Room Air Room Air 10/02/24 06:00 Temperature Temperature Source Pulse Rate 74 Respiratory Rate 14 Respiratory Effort Respiratory Depth Respiratory Pattern Blood Pressure 124/75 H Blood Pressure Mean 91 Pulse Ox 98 Oxygen Delivery Method Room Air Positive well nourished and well developed General Appearance ED: well developed HEENT HEENT Narrative: Patient has significant soft tissue swelling and ecchymosis mainly along the left side of his face around the left orbit, zygomatic arch, bridge of the nose,lower jaw and chin region. There is a area of soft tissue swelling and superficial abrasion along the rightlateral portion of the forehead as well. Patient has a open fracture along the middle right of the mandible near tooth #26 No active hemorrhage noted. No airway edema or compromise. No signs of infection noted in the posterior pharynx. No septal hematoma present Eyes EOMs intact bilaterally Eyes Narrative: Pupils are dilated and slightly sluggish to respond to light consistent/concerning for alcohol use There is mild scleral injection noted as well No obvious hyphema noted General Eye ED: Negative for scleral icterus Neck Neck Narrative: No bony deformity or step-off of the cervical spine no midline tenderness to palpation Patient is able to move his neck in all directions without pain Chest Wall palpation of chest normal Chest Narrative: No bony deformity or subcutaneous emphysema noted Resp normal respiratory effort and clear to auscultation bilaterally Cardio regular rate and regular rhythm GI normal to inspection, nondistended, normoactive bowel sounds, non-tender, non-distended and no masses Auscultation: normoactive bowel sounds Back/Spine no CVA tenderness Back/Spine Narrative: No bony deformity or step-off of the thoracic or lumbar spine; no midline tenderness to palpation Extremity normal to inspection Extremity Narrative: Pelvis is stable there is no shortening or external rotation of either lower extremity No obvious signs of long bone injury such as bony deformity or joint effusion Patient is able to move all extremities without pain or difficulty All compartments are soft and compressible going against compartment syndrome Neuro oriented x3, CN's II-XII intact bilaterally and no sensory deficits noted Sensorium / Orientation: alert Motor Exam: strength 5/5 throughout Psych Mood & Affect: depressed Skin Skin Narrative: Soft tissue swelling with ecchymosis to the head/face as documented above MDM MDM MDM Narrative Medical decision making narrative: The patient initially left the hospital AGAINST MEDICAL ADVICE because he wantedto smoke a cigarette. Apparently he did this and made it as far as the nearby gas station and then called EMS once again to come back for evaluation of his pain/trauma. Based on swelling and ecchymosis and deformity to the face there is high likelihood for traumatic subarachnoid or subdural hemorrhage versus cervical compression fracture versus mandibular and/or orbital floor fracture. Therefore CTs of the head cervical spine and face were obtained. CT of the headrevealed no acute bleed or skull fracture. CT of the cervical spine revealed noacute compression fracture or burst fracture but there was mild subcutaneous emphysema which would correlate with open fracture to the jaw. CT of the face confirmed bilateral mandibular fractures. The case was discussed with ENT on-call Dr. Rodriguez. He states that these typically need surgical plating as wellas oral maxillofacial surgery to wired the jaw shut. He states we do not have the tools necessary to perform that at this center and recommends transfer to a trauma center. The patient was informed of this and states he would prefer to go to [place] versus [place] or [place]. Therefore the case was discussed withDr. Parekh at [facility]. He agrees to accept the patient. Patient will be transfer ER to ER so they can evaluate the patient at that time and decide if further imaging or more emergent surgery is necessary. The patient did have his tetanus status updated and he was given 3.375 g of Zosyn with concern for potential developing infection. As he does have a history of alcohol abuse and his alcohol level is 165 there is concern he will progress to alcohol withdrawal and therefore 100 mg of IV phenobarbital also added. At thistime he is hemodynamically stable and [facility] Lab Data Attestation: I reviewed the patient's lab results. Labs: Laboratory Results - last 24 hr 10/02/24 05:05 WBC 10.3 RBC 4.44 L Hgb 15.5 Hct 42.5 MCV 95.7 H MCH 34.9 H MCHC 36.5 H RDW Std Deviation 40.2 RDW Coeff of Jessica 11.7 Plt Count 256 MPV 9.9 Immature Gran % (Auto) 0.400 Neut % (Auto) 76.7 H Lymph % (Auto) 14.6 L Wagoner % (Auto) 7.1 Eos % (Auto) 0.5 Baso % (Auto) 0.7 Absolute Neuts (auto) 7.9 H Absolute Lymphs (auto) 1.50 Nucleated RBC % 0 PT 12.0 INR 0.9 APTT 26.0 Sodium 139 Potassium 4.1 Chloride 103 Carbon Dioxide 18.7 L Anion Gap 17 H BUN 4 Creatinine 0.58 L Estim Creat Clear Calc 203.76 Est GFR (MDRD) Non-Af 137 BUN/Creatinine Ratio 7.6 L Glucose 108 H Calcium 8.9 Ethyl Alcohol 165.0 H Radiography Diagnostic Testing: Clinical Impression(s) from Imaging Studies Brain CT 10/02/24 05:15 IMPRESSION: No intracerebral or extra-axial hemorrhage. No acute cerebrovascular insult. If clinical symptoms persist, further evaluation with MRI may be considered as clinically warranted. [facility] Cervical Spine CT 10/02/24 05:15 IMPRESSION: Soft tissue emphysema in the left aspect of the neck. No CT evidence of an acute fracture or dislocation. Reading [facility] Facial/Sinus 10/02/24 05:15 IMPRESSION: Mandibular right para-symphyseal and left mandibular angle/body fractures with related soft tissue edema and possible left master intramuscular hematoma as detailed. Reading Location[facility] Management Discussion w/another healthcare provider: Long Distance Operator Discharge Plan Triage Chief Complaint: Head Injury ED Provider: Colin Colon Dx/Rx/DC Orders Clinical Impression: Mandible open fracture, History of alcohol abuse, Tobacco use, Alcohol abuse Prescriptions: No Action NK Primary Care Provider: Care Physician,No Primary Referrals: Care Physician,No Primary [Primary Care Provider] - Print Language: Cypriot Disposition Disposition: Acute Care Hospital Discharge Location: [facility] What to do if you have Problems For any increased pain, shortness of breath, bleeding, nausea or vomiting, chestpain, or any unexpected problems, contact your Primary Care Provider. Call [facility] ([phone]) or report to the closest Emergency Room. Call 911 if necessary. 10/02/24725 <Electronically signed by Colin Colon DO> Cosigner Signature (if applicable): CC: No Primary Care Physician ~ Signed [facility] Work Phone: evaluation note* Diagnosis Onset Date Resolution Status Alcohol abuse acute Desire for detoxification [facility] Work Phone: Evaluation note* Diagnosis Onset Date Resolution Status Acute alcohol intoxication a cute Acute hyperactive alcohol withdrawal delirium acute Desire for detoxification [facility] Work Phone: Evaluation note* Diagnosis Onset Date Resolution Status Acute hyperactive alcohol withdrawal delirium resolved Alcohol dependence acute Alcohol withdrawal acute [facility] Work Phone: Evaluation note* Diagnosis Onset Date Resolution Status Acute hyperactive alcohol withdrawal delirium resolved Alcohol withdrawal acute [facility] Work Phone: Evaluation note* Diagnosis Influenza A- Primary Influenza with other respiratory manifestations URI with cough and congestion Generalized body aches [facility] Diagnosis Chest pain, unspecified type- Primary Methamphetamine abuse (HCC) Nondependent amphetamine or related acting sympathomimetic abuse, unspecified Alcohol abuse Nondependent alcohol abuse, unspecified drinking behavior Chest pain Unspecified chest pain Methamphetamine abuse (HCC) Nondependent amphetamine or related acting sympathomimetic abuse, unspecified Alcohol abuse Nondependent alcohol abuse, unspecified drinking behavior documented in this encounter [facility] note* Diagnosis Mandible fracture (HCC)- Primary Closed fracture of unspecified site of mandible Closed fracture of mandible, unspecified laterality, unspecified mandibular site, initial encounter ([facility]) Alcohol use disorder, severe, dependence (HCC) Alcohol withdrawal syndrome without complication (HCC) Methamphetamine use (HCC) Nondependent amphetamine or related acting sympathomimetic abuse, unspecified Cocaine use Cannabis use, uncomplicated Cigarette nicotine dependence without complication Acute pain History of benzodiazepine use documented in this encounter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 patient requires dose reduction, call physician. May use IV for breakthrough pain or if unable to tolerate enteral routes. 1253 (Given - Provider: Colleen Casey RN - Comment: per order) HYDROmorphone (DILAUDID) injection 0.5-1 mg (CANCELED) 0.5-1 mg, Intravenous, Every 3 hours PRN (may repeat), moderate to severe pain, Starting on Sat10/02/24 at 1409, Initiate with 0.5 mg IV every 3 hours prn moderate to severe pain. For unrelieved pain, may repeat 0.5 mg within 30 minutes of initial dose. If pain is RELIEVED after repeat dose, change to 1 mg every 3 hours prn moderate to severe pain. If pain is UNrelieved after repeat dose, or patient requires dose reduction, call physician. May use IV for breakthrough pain or if unable to tolerate enteral routes. 2010 (Given - Provider: Fior Kelly, KATERYNA) 0848 (Given - Provider: Priya Domínguez, KATERYNA)1104 (Given - Provider: Priya Domínguez RN)1635 (Given - Provider: Priya Domínguez RN)1944 (Given - Provider: Fior Kelly, KATERYNA)2332 (Given - Provider: Fior Kelly RN) HYDROmorphone (PF) (DILAUDID) injection (COMPLETED) Intravenous, Code/trauma/sedation medication, Starting on Sat10/02/24 at 1029 1029 (Given - Provider: Scott Cardona RN) iopamidoL (ISOVUE-370) 370 mg iodine /mL (76 %) injection 150 mL (COMPLETED) 150 mL, Intravenous, Once in imaging, contrast, Starting on Sat10/02/24 at 1035, For 1 dose 1036 (Contrast Administered - Provider: Larisa Villafuerte, TECHNOLOGIST) lidocaine-EPINEPHrine (PF) 1.5 %-1:200,000 injection (CANCELED) As needed, Starting on Sat10/04/24 at 0810, Intra-Procedure 0810 (Given - Provider: Marilou Vasquez MD - Comment: Given to sterile field) methocarbamoL (ROBAXIN) tablet 1,000 mg (CANCELED) 1,000 mg, Oral, 3 times daily PRN, muscle spasms, Starting on Sat10/02/24 at 1041 1336 (Given - Provider: Elo Campbell RN) methocarbamoL (ROBAXIN) tablet 500 mg(Linked Group 1) 500 mg, Oral, 3 times daily PRN, muscle spasms, Starting on Sat10/04/24 at 2200 0653 ([facility] Hold - Provider: Transfer Provider, Automatic - Reason: Patient not available)1120 ([facility] Unhold - Provider: Transfer Provider, Automatic) morphine syringe 4 mg 4 mg, Intravenous, Every 3 hours PRN, moderate to severe pain, Starting on Sat10/04/24 at 0046 0102 (Given - Provider: Fior Kelly, KATERYNA)0405 (Given - Provider: Fior Kelly RN)0653 ([facility] Hold - Provider: Transfer Provider, Automatic - Reason: Patient not available)1120 ([facility] Unhold - Provider: Transfer Provider, Automatic) naloxone (NARCAN) injection 0.1 mg(Linked Group 4) 0.1 mg, Intravenous, As needed, opioid reversal, For respiratory rate less than or equal to 8 per minute., Starting on Sat10/02/24 at 1041, Mix nalOXone (NARCAN) 0.4 mg (1mL) with 9 mL of Normal Saline to total 10 mL. Administer 0.1 mg (2.5mL) IV Push every 2 minutes until respiratory rate is 10 or greater. 0653 ([facility] Hold - Provider: Transfer Provider, Automatic - Reason: Patient not available)1120 ([facility] Unhold - Provider: Transfer Provider, Automatic) naloxone (NARCAN) injection 0.4 mg(Linked Group 4) 0.4 mg, Intravenous, As needed, opioid reversal, patient is pulseless, breathless, and unresponsive, Starting on Sat10/02/24 at 1041, Call a code first, then administer naloxone dose undiluted IV Push over 30 seconds. 0653 ([facility] Hold - Provider: Transfer Provider, Automatic - Reason: Patient not available)1120 ([facility] Unhold - Provider: Transfer Provider, Automatic) nicotine polacrilex (COMMIT) lozenge 2-4 mg 2-4 mg, Buccal, Every 1 hour prn, smoking cessation, Starting on Sat10/02/24 at 1431, If the patient reports having a cigarette within 30 minutes of waking, give 4mg. If the patient reports having a cigarette more than 30 minutes after waking, give 2mg. May use to supplement nicotine patch therapy. Instruct patient to start by placing 1 lozenge between the cheek and the gum at a time, followed by second lozenge after the first has dissolved Should NOT be chewed or swallowed; allow to slowly dissolve (about 20-30 minutes) Avoid food or drink 15 minutes before, during, or after using lozenge. DO NOT CRUSH OR CHEW. 1640 (Given - Provider: Elo Campbell RN) 0653 ([facility] Hold - Provider: Transfer Provider, Automatic - Reason: Patient not available)1120 ([facility] Unhold - Provider: Transfer Provider, Automatic) ondansetron (ZOFRAN) injection 4 mg(Linked Group 5) 4 mg, Intravenous, Every 6 hours PRN, nausea, vomiting, Starting on Sat10/02/24 at 1239, [] Oral or IV - use oral route if tolerated. 0653 ([facility] Hold - Provider: Transfer Provider, Automatic - Reason: Patient not available)1120 ([facility] Unhold - Provider: Transfer Provider, Automatic) ondansetron (ZOFRAN) injection 4 mg (CANCELED) 4 mg, Intravenous, Every 15 min PRN, nausea, vomiting, Starting on 10/04/24 at 0913, For 2 doses, PACU (only), Do not give more than 2 doses. Administer first as needed for nausea/vomiting, or as directed by anesthesia 1031 (Given - Provider: Fior Marie RN) ondansetron (ZOFRAN-ODT) disintegrating tablet 4 mg(Linked Group 5) 4 mg, Oral, Every 6 hours PRN, nausea, vomiting, Starting on Sat10/02/24 at 1239, [] Oral or IV - use oral route if tolerated. Formulation requires tablet remain in sealed package until immediately prior to dose being administered. 0653 ([facility] Hold - Provider: Transfer Provider, Automatic - Reason: Patient not available)1120 ([facility] Unhold - Provider: Transfer Provider, Automatic) oxyCODONE (ROXICODONE) 10 mg/0.5 mL concentrated solution 5 mg (COMPLETED) 5 mg, Sublingual, Once as needed, moderate to severe pain, Pain, Starting on 10/04/24 at 0913, For 1 dose, PACU (only), Use first if unable to tolerate oral route. 1031 (Given - Provider: Fior Marie RN) oxyCODONE (ROXICODONE) 10 mg/0.5 mL concentrated solution 5 mg 5 mg, Sublingual, Every 6 hours PRN, moderate to severe pain, Starting on Sat10/04/24 at 1150 1156 (Given - Provider: Randolph Tripp LPN) oxyCODONE (ROXICODONE) immediate release tablet 5-10 mg (CANCELED) 5-10 mg, Oral, Every 4 hours PRN (may repeat), moderate to severe pain, Starting on Sat10/02/24 at 1041, Initiate with 5 mg oral every 4 hours prn moderate to severe pain. For unrelieved pain, may repeat 5 mg within 60 minutes of initial dose. If pain is RELIEVED after repeat dose, change to 10 mg every 4 hours prn moderate to severe pain. If pain is UNrelieved after repeat dose, or patient requires dose reduction, call physician. 1206 (Given - Provider: Raissa Sneed LPN)1253 (Given - Provider: Colleen Casey, KATERYNA)1640 (Given - Provider: Elo Campbell, KATERYNA)2139 (Given - Provider: Fior Kelly RN) 0138 (Given - Provider: Fior Kelly RN)0519 (Given - Provider: Fior Kelly RN)1028 (Given - Provider: Priya Domínguez, KATERYNA)1442 (Given - Provider: Priya Domíngeuz, KATERYNA)2047 (Given - Provider: Fior Kelly RN) 0233 (Given - Provider: Fior Kelly RN)0638 (Given - Provider: Fior Kelly RN)0653 ([facility] Hold - Provider: Transfer Provider, Automatic - Reason: Patient not available)1120 ([facility] Unhold - Provider: Transfer Provider, Automatic) PHENobarbital injection 65 mg 65 mg, Intramuscular, Every 6 hours PRN, Two of the following: SBP greater than 160 or DBP greater than 100, Significant agitation (RASS greater than +2), HR greater than 110, Diaphoresis, tremors, Hallucinations, Starting on Sat10/02/24 at 1343, For 102 hours, VESICANT 0653 ([facility] Hold - Provider: Transfer Provider, Automatic - Reason: Patient not available)1120 ([facility] Unhold - Provider: Transfer Provider, Automatic) sodium chloride (NS) 0.9 % irrigation solution (CANCELED) As needed, Starting on Sat10/04/24 at 0811, Intra-Procedure 0811 (Given - Provider: Marilou Vasquez MD - Comment: Given to sterile field) sodium chloride (PF) (NS) 0.9 % contrast line flush 10 mL(Linked Group 6) 10 mL, Intravenous, Once in imaging, contrast, Per grill attendant (Radiology) for line patency check prior to contrast administration, Starting on Sat10/02/24 at 1035, For 1 dose 1415 (Canceled Entry - Provider: Elo Campbell RN) 0653 (APR Hold - Provider: Transfer Provider, Automatic - Reason: Patient not available)1120 ([facility] Unhold - Provider: Transfer Provider, Automatic) sodium chloride (PF) (NS) 0.9 % contrast line flush 80 mL (COMPLETED)(Linked Group 6) 80 mL, Intravenous, Once in imaging, contrast, Per grill attendant (Radiology), Starting on Sat10/02/24 at 1035, For 1 dose, 30 mL BEFORE contrast administration 50 mL AFTER contrast administration 1036 (Given - Provider: Larisa Villafuerte TECHNOLOGIST) sodium chloride (PF) (NS) flush 5 mL(Linked Group 3) 5 mL, Intravenous, As needed, line care, Starting on Sat10/04/24 at 1155 sodium chloride 0.9% (NS)(Linked Group 3) 0-150 mL/hr, Intravenous, As needed, To flush line after IV infusions when no maintenance IV ordered or a compatibility issue. Infuse 20ml at the same rate as the secondary infusion, Starting on Sat10/04/24 at 1155, Run as Primary IV. NOT intended for KVO. Linked Groups Order Group 1: methocarbamoL (ROBAXIN) injection 1 gJump to med 1 g, Intravenous, Every 8 hours, First dose on Sat10/02/24 at 2200, For 48 hours, Methocarbamol 1gm: administer 10ml over 3.5 minutes via slow IV push. Administer IV while patient is lying down. Maintain position for at least 15 minutes following administration. IV Push in undiluted syringe at a rate of 3mL/min for doses 1000 mg or less. Followed by methocarbamoL (ROBAXIN) tablet 500 mgJump to med 500 mg, Oral, 3 times daily PRN, muscle spasms, Starting on Sat10/04/24 at 2200 Group 2: PHENobarbital injection 299 mg (COMPLETED)Jump to med 299 mg (rounded from 301.2 mg = 4 mg/kg 75.3 kg [place] weight), Intramuscular, Once, On Sat10/02/24 at 1430, For 1 dose, If volume exceeds 2 mL please draw up dose in multiple syringes. VESICANT, Does patient require REDUCED or STANDARD dosing regimen: STANDARD regimen (NO known risk factors), Standard Therapy Guidelines: Patient does not have risk factors: Less than 65 without respiratory impairment (i.e. COPD, Pneumonia, Rib Fractures), concurrent benzodiazepines or hepatic dysfunction and should receive full dose (10 mg/kg) OR has clinical justification for full dose Followed by PHENobarbital injection 221 mg (COMPLETED)Jump to med 221 mg (rounded from 225.9 mg = 3 mg/kg 75.3 kg [place] weight), Intramuscular, Every 3 hours, First dose on Sat10/02/24 at 1730, For 2 doses, If volume exceeds 2 mL please draw up dose in multiple syringes. VESICANT, Does patient require REDUCED or STANDARD dosing regimen: STANDARD regimen (NO known risk factors), Standard Therapy Guidelines: Patient does not have risk factors: Less than 65 without respiratory impairment (i.e. COPD, Pneumonia, Rib Fractures), concurrent benzodiazepines or hepatic dysfunction and should receive full dose (10 mg/kg) OR has clinical justification for full dose Followed by PHENobarbitaL tablet 64.8 mg (COMPLETED)Jump to med 64.8 mg, Oral, Every 12 hours, First dose on Sat10/03/24 at 0900, For 2 doses Followed by PHENobarbitaL tablet 32.4 mgJump to med 32.4 mg, Oral, Every 12 hours, First dose on Sat10/04/24 at 0900, For 2 doses Followed by PHENobarbitaL tablet 32.4 mgJump to med 32.4 mg, Oral, Every 24 hours, First dose on Sat10/05/24 at 2100, For 1 dose Group 3: Saline lock IV (CANCELED) Routine, Continuous, Starting on Sat10/04/24 at 1156, Until Specified And sodium chloride (PF) (NS) flush 5 mLJump to med 5 mL, Intravenous, As needed, line care, Starting on Sat10/04/24 at 1155 And sodium chloride (PF) (NS) flush 5 mLJump to med 5 mL, Intravenous, Every 8 hours scheduled, First dose on Sat10/04/24 at 1400, Saline lock And sodium chloride 0.9% (NS)Jump to med 0-150 mL/hr, Intravenous, As needed, To flush line after IV infusions when no maintenance IV ordered or a compatibility issue. Infuse 20ml at the same rate as the secondary infusion, Starting on Sat10/04/24 at 1155, Run as Primary IV. NOT intended for KVO. Group 4: naloxone (NARCAN) injection 0.1 mgJump to med 0.1 mg, Intravenous, As needed, opioid reversal, For respiratory rate less than or equal to 8 per minute., Starting on Sat10/02/24 at 1041, Mix nalOXone (NARCAN) 0.4 mg (1mL) with 9 mL of Normal Saline to total 10 mL. Administer 0.1 mg (2.5mL) IV Push every 2 minutes until respiratory rate is 10 or greater. And Notify physician (CANCELED) STAT, Until discontinued, Starting on Sat10/02/24 at 1045, Until Specified, Respiratory rate less than: 8, For respiratory rate less than or equal to 8, notify physician and/or appropriate staff for additional orders. And naloxone (NARCAN) injection 0.4 mgJump to med 0.4 mg, Intravenous, As needed, opioid reversal, patient is pulseless, breathless, and unresponsive, Starting on Sat10/02/24 at 1041, Call a code first, then administer naloxone dose undiluted IV Push over 30 seconds. Group 5: ondansetron (ZOFRAN-ODT) disintegrating tablet 4 mgJump to med 4 mg, Oral, Every 6 hours PRN, nausea, vomiting, Starting on Sat10/02/24 at 1239, [] Oral or IV - use oral route if tolerated. Formulation requires tablet remain in sealed package until immediately prior to dose being administered. Or ondansetron (ZOFRAN) injection 4 mgJump to med 4 mg, Intravenous, Every 6 hours PRN, nausea, vomiting, Starting on Sat10/02/24 at 1239, [] Oral or IV - use oral route if tolerated. Group 6: sodium chloride (PF) (NS) 0.9 % contrast line flush 10 mLJump to med 10 mL, Intravenous, Once in imaging, contrast, Per grill attendant (Radiology) for line patency check prior to contrast administration, Starting on Sat10/02/24 at 1035, For 1 dose And sodium chloride (PF) (NS) 0.9 % contrast line flush 80 mL (COMPLETED)Jump to med 80 mL, Intravenous, Once in imaging, contrast, Per grill attendant (Radiology), Starting on Sat10/02/24 at 1035, For 1 dose, 30 mL BEFORE contrast administration 50 mL AFTER contrast administration Scheduled Medication Order 10/03/2024 10/04/2024 10/05/2024 acetaminophen (TYLENOL) solution 650 mg 650 mg, Oral, Every 6 hours scheduled, First dose on Sat10/05/24 at 0000 2345 (Given - Provider: Ramos Car RN) 0538 (Given - Provider: Pedro Rodriguez RN)1215 (Given - Provider: Tabitha Kaufman RN) amoxicillin-clavulanate (AUGMENTIN) 400-57 mg/5 mL suspension 875 mg 875 mg, Oral, Every 12 hours scheduled, First dose on Sat10/05/24 at 0130, For 15 doses, Indication: Other (specify), Indication: mandible fx 0218 (Given - Provid er: Ramos Car RN)0835 (Given - Provider: Tabitha Kaufman RN) chlorhexidine (PERIDEX) 0.12 % solution 15 mL 15 mL, Swab, 4 times daily, First dose on Sat10/05/24 at 0900, Do Not Swallow 1035 (Given - Provid er: Tabitha Kaufman RN)1358 (Given - Provider: Tabitha Kaufman RN) diazePAM (VALIUM) syringe 5 mg (COMPLETED) 5 mg, Intravenous, Once, On Sat10/04/24 at 1850, For 1 dose, VESICANT 1853 (Given - Provider: Ramos Car RN) enoxaparin (LOVENOX) syringe 30 mg 30 mg, Subcutaneous, 2 times daily, First dose on Sat10/04/24 at 2125, Administer in abdomen unless otherwise directed by prescriber. Notify physician if patient refuses., Indication: VTE Prophylaxis 2226 (Given - Provider: Jeremias Huff RN) 0835 (Given - Provider: Tabitha Kaufman RN) folic acid (FOLVITE) tablet 1 mg 1 mg, Oral, Every morning, First dose on 10/04/24 at 2130 2353 (Given - Provider: Ramos Car RN) 0835 (Not Given - Provider: Tabitha Kaufman RN - Reason: Other) HYDROmorphone (DILAUDID) injection 0.5 mg (COMPLETED) 0.5 mg, Intravenous, Once, On Sat10/04/24 at 1850, For 1 dose 1853 (Given - Provider: Ramos Car RN) ketorolac (TORADOL) injection 15 mg 15 mg, Intravenous, Every 6 hours, First dose on Sat10/05/24 at 1345, For 48 hours 1356 (Given - Provid er: Tabitha Kaufman RN) lidocaine patch 2 patch 2 patch, Transdermal, Administer over 12 Hours, Daily, First dose on Sat10/05/24 at 0900, Apply to area of maximum pain for 12 hours, then remove patch for 12 hours. Not for use over broken skin. 0900 (Not Given - Provider: Tabitha Kaufman RN - Reason: Patient/family refused) multivitamin (THERAGRAN) per tablet 1 tablet 1 tablet, Oral, Daily, First dose on Sat10/05/24 at 0900 0835 (Not Given - Provider: Tabitha Kaufman RN - Reason: Other) nicotine (NICODERM CQ) 21 mg/24 hr 1 patch 1 patch, Transdermal, Administer over 24 Hours, Daily, First dose on Sat10/05/24 at 1600, U/P Listed Hazardous Drug. Waste Must Be Disposed in [employer] PHENobarbital injection 130 mg (COMPLETED)(Linked Group 1) 130 mg (rounded from 135.54 mg = 1.8 mg/kg 75.3 kg [place] weight), Intramuscular, Every 3 hours, First dose on Sat10/05/24 at 0025, For 2 doses, If volume exceeds 2 mL please draw up dose in multiple syringes. VESICANT, Does patient require REDUCED or STANDARD dosing regimen: REDUCED regimen (patient has known risk factors), Reduced Regimen Guidleines: Patient has clinically significant risk factors for a reduced dose (6mg/kg) 65 years old or older, significant respiratory impairment (i.e., COPD, Pneumonia, Rib Fractures), concurrent benzodiazepine therapy or hepatic dysfunction 235 (Given - Provider: Ramos Car RN) 0338 (Given - Provider: Olimpia Yanez RN) PHENobarbital injection 182 mg (COMPLETED)(Linked Group 1) 182 mg (rounded from 180.72 mg = 2.4 mg/kg 75.3 kg [place] weight), Intramuscular, Once, On Sat10/04/24 at 2124, For 1 dose, If volume exceeds 2 mL please draw up dose in multiple syringes. VESICANT, Does patient require REDUCED or STANDARD dosing regimen: REDUCED regimen (patient has known risk factors), Reduced Regimen Bert: Patient has clinically significant risk factors for a reduced dose (6mg/kg) 65 years old or older, significant respiratory impairment (i.e., COPD, Pneumonia, Rib Fractures), concurrent benzodiazepine therapy or hepatic dysfunction 2130 (Given - Provider: Jeremias Huff RN) PHENobarbitaL tablet 32.4 mg(Linked Group 1) 32.4 mg, Oral, Every 12 hours, First dose on Sat10/06/24 at 1523, For 2 doses PHENobarbitaL tablet 32.4 mg(Linked Group 1) 32.4 mg, Oral, Every 24 hours, First dose on Sat10/08/24 at 0325, For 1 dose PHENobarbitaL tablet 64.8 mg(Linked Group 1) 64.8 mg, Oral, Every 12 hours, First dose on Sat10/05/24 at 1525, For 2 doses 1525 (Due) senna-docusate (SENNA-S) 8.6-50 mg per tablet 1 tablet 1 tablet, Oral, 2 times daily, First dose on Sat10/04/24 at 2124, NOT for abdominal surgery patients. Hold for loose stools. Do Not Crush or Chew if administering orally due to bitter taste. May be crushed if given via tube. 2134 (Not Given - Provider: Jeremias Huff RN - Reason: Other - Comment: Pt unable to tolerate PO meds) 0900 (Not Given - Provider: Tabitha Kaufman RN - Reason: Patient/family refused) sodium chloride (PF) (NS) flush 5 mL(Linked Group 2) 5 mL, Intravenous, Every 8 hours scheduled, First dose on Sat10/04/24 at 2200, Saline lock 2229 (Given - Provider: Jeremias Huff RN) 0538 (Given - Provider: Pedro Rodriguez RN)1400 (Canceled Entry - Provider: Tabitha Kaufman RN) thiamine (B-1) injection 200 mg 200 mg, Intravenous, Every morning, First dose on 10/04/24 at 2130, For 5 doses, Administer at a rate of 200 mg/minute if IV Push 2226 (Given - Provider: Jeremias Huff RN) 0835 (Given - Provider: Tabitha Kaufman RN) PRN Medication Order 10/03/2024 10/04/2024 10/05/2024 methocarbamoL (ROBAXIN) tablet 500 mg 500 mg, Oral, 3 times daily PRN, muscle spasms, Starting on 10/04/24 at 2120 naloxone (NARCAN) injection 0.1 mg(Linked Group 3) 0.1 mg, Intravenous, As needed, opioid reversal, For respiratory rate less than or equal to 8 per minute., Starting on Sat10/04/24 at 2120, Mix nalOXone (NARCAN) 0.4 mg (1mL) with 9 mL of Normal Saline to total 10 mL. Administer 0.1 mg (2.5mL) IV Push every 2 minutes until respiratory rate is 10 or greater. naloxone (NARCAN) injection 0.4 mg(Linked Group 3) 0.4 mg, Intravenous, As needed, opioid reversal, patient is pulseless, breathless, and unresponsive, Starting on 10/04/24 at 2120, Call a code first, then administer naloxone dose undiluted IV Push over 30 seconds. nicotine polacrilex (COMMIT) lozenge 2-4 mg 2-4 mg, Buccal, Every 1 hour prn, smoking cessation, Starting on 10/05/24 at 1346, If the patient reports having a cigarette within 30 minutes of waking, give 4mg. If the patient reports having a cigarette more than 30 minutes after waking, give 2mg. May use to supplement nicotine patch therapy. Instruct patient to start by placing 1 lozenge between the cheek and the gum at a time, followed by second lozenge after the first has dissolved Should NOT be chewed or swallowed; allow to slowly dissolve (about 20-30 minutes) Avoid food or drink 15 minutes before, during, or after using lozenge. DO NOT CRUSH OR CHEW. ondansetron (ZOFRAN) injection 4 mg(Linked Group 4) 4 mg, Intravenous, Every 6 hours PRN, nausea, vomiting, Starting on 10/04/24 at 2117, [] Oral or IV - use oral route if tolerated. ondansetron (ZOFRAN-ODT) disintegrating tablet 4 mg(Linked Group 4) 4 mg, Oral, Every 6 hours PRN, nausea, vomiting, Starting on 10/04/24 at 2117, [] Oral or IV - use oral route if tolerated. Formulation requires tablet remain in sealed package until immediately prior to dose being administered. oxyCODONE (ROXICODONE) 10 mg/0.5 mL concentrated solution 5 mg 5 mg, Sublingual, Every 4 hours PRN, moderate to severe pain, Starting on 10/04/24 at 2144 222 (Given - Provider: Jeremias Huff RN) 0338 (Given - Provider: Olimpia Yanez RN)0820 (Given - Provider: Tabitha Kaufman RN)1215 (Given - Provider: Tabitha Kaufman RN) PHENobarbital injection 65 mg 65 mg, Intramuscular, Every 6 hours PRN, Two of the following: SBP greater than 160 or DBP greater than 100, Significant agitation (RASS greater than +2), HR greater than 110, Diaphoresis, tremors, Hallucinations, Starting on 10/04/24 at 2121, For 102 hours, VESICANT sodium chloride (PF) (NS) flush 5 mL(Linked Group 2) 5 mL, Intravenous, As needed, line care, Starting on Sat10/04/24 at 2117 sodium chloride 0.9% (NS)(Linked Group 2) 0-150 mL/hr, Intravenous, As needed, To flush line after IV infusions when no maintenance IV ordered or a compatibility issue. Infuse 20ml at the same rate as the secondary infusion, Starting on 10/04/24 at 2117, Run as Primary IV. NOT intended for KVO. traZODone (DESYREL) tablet 50 mg 50 mg, Oral, Nightly PRN, sleep, Starting on Sat10/04/24 at 2120 Linked Groups Order Group 1: PHENobarbital injection 182 mg (COMPLETED)Jump to med 182 mg (rounded from 180.72 mg = 2.4 mg/kg 75.3 kg [place] weight), Intramuscular, Once, On Sat10/04/24 at 2125, For 1 dose, If volume exceeds 2 mL please draw up dose in multiple syringes. VESICANT, Does patient require REDUCED or STANDARD dosing regimen: REDUCED regimen (patient has known risk factors), Reduced Regimen Guidleines: Patient has clinically significant risk factors for a reduced dose (6mg/kg) 65 years old or older, significant respiratory impairment (i.e., COPD, Pneumonia, Rib Fractures), concurrent benzodiazepine therapy or hepatic dysfunction Followed by PHENobarbital injection 130 mg (COMPLETED)Jump to med 130 mg (rounded from 135.54 mg = 1.8 mg/kg 75.3 kg [place] weight), Intramuscular, Every 3 hours, First dose on Sat10/05/24 at 0025, For 2 doses, If volume exceeds 2 mL please draw up dose in multiple syringes. VESICANT, Does patient require REDUCED or STANDARD dosing regimen: REDUCED regimen (patient has known risk factors), Reduced Regimen Guidleines: Patient has clinically significant risk factors for a reduced dose (6mg/kg) 65 years old or older, significant respiratory impairment (i.e., COPD, Pneumonia, Rib Fractures), concurrent benzodiazepine therapy or hepatic dysfunction Followed by PHENobarbitaL tablet 64.8 mgJump to med 64.8 mg, Oral, Every 12 hours, First dose on Sat10/05/24 at 1525, For 2 doses Followed by PHENobarbitaL tablet 32.4 mgJump to med 32.4 mg, Oral, Every 12 hours, First dose on Sat10/06/24 at 1523, For 2 doses Followed by PHENobarbitaL tablet 32.4 mgJump to med 32.4 mg, Oral, Every 24 hours, First dose on Sat10/08/24 at 0325, For 1 dose Group 2: Saline lock IV (CANCELED) Routine, Continuous, Starting on Sat10/04/24 at 2119, Until Specified And sodium chloride (PF) (NS) flush 5 mLJump to med 5 mL, Intravenous, As needed, line care, Starting on Sat10/04/24 at 2117 And sodium chloride (PF) (NS) flush 5 mLJump to med 5 mL, Intravenous, Every 8 hours scheduled, First dose on Sat10/04/24 at 2200, Saline lock And sodium chloride 0.9% (NS)Jump to med 0-150 mL/hr, Intravenous, As needed, To flush line after IV infusions when no maintenance IV ordered or a compatibility issue. Infuse 20ml at the same rate as the secondary infusion, Starting on Sat10/04/24 at 2117, Run as Primary IV. NOT intended for KVO. Group 3: naloxone (NARCAN) injection 0.1 mgJump to med 0.1 mg, Intravenous, As needed, opioid reversal, For respiratory rate less than or equal to 8 per minute., Starting on Sat10/04/24 at 2119, Mix nalOXone (NARCAN) 0.4 mg (1mL) with 9 mL of Normal Saline to total 10 mL. Administer 0.1 mg (2.5mL) IV Push every 2 minutes until respiratory rate is 10 or greater. And Notify physician (CANCELED) STAT, Until discontinued, Starting on Sat10/04/24 at 2124, Until Specified, Respiratory rate less than: 8, For respiratory rate less than or equal to 8, notify physician and/or appropriate staff for additional orders. And naloxone (NARCAN) injection 0.4 mgJump to med 0.4 mg, Intravenous, As needed, opioid reversal, patient is pulseless, breathless, and unresponsive, Starting on Sat10/04/24 at 2119, Call a code first, then administer naloxone dose undiluted IV Push over 30 seconds. Group 4: ondansetron (ZOFRAN-ODT) disintegrating tablet 4 mgJump to med 4 mg, Oral, Every 6 hours PRN, nausea, vomiting, Starting on Sat10/04/24 at 2117, [] Oral or IV - use oral route if tolerated. Formulation requires tablet remain in sealed package until immediately prior to dose being administered. Or ondansetron (ZOFRAN) injection 4 mgJump to med 4 mg, Intravenous, Every 6 hours PRN, nausea, vomiting, Starting on Sat10/04/24 at 2117, [] Oral or IV - use oral route if tolerated. Scheduled Medication Order 10/09/2024 10/10/2024 10/11/2024 acamprosate (CAMPRAL) tablet 666 mg 666 mg, Oral, 3 times daily, First dose on Sat10/09/24 at 1500, DO NOT CRUSH OR CHEW. 1609 (Given - Provider: Jesus Barahona RN)2100 (Not Given - Provider: Lor Holm LPN - Reason: Patient/family refused) 0823 (Given - Provider: Kaitlyn Auguste LPN)1523 (Given - Provider: Kaitlyn FrancoisoMOUSTAPHAN)2027 (Given - Provider: Ashtyn Hawkins LPN) 1004 (Given - Provider: Kaitlyn Auguste LPN)1513 (Given - Provider: Kaitlyn Auguste LPN) acetaminophen (TYLENOL) tablet 650 mg 650 mg, Oral, Every 4 hours, First dose (after last modification) on Sat10/09/24 at 0400 0400 (Not Given - Provider: Lor Holm LPN - Reason: Patient/family refused)1037 (Given - Provider: Jesus Barahona RN)1329 (Given - Provider: Jesus Barahona, KATERYNA)1609 (Given - Provider: Jesus Barahona RN)2108 (Given - Provider: Lor Holm LPN) 0011 (Given - Provider: Lor Holm LPN)0511 (Given - Provider: Lor Holm LPN)0800 (Not Given - Provider: Kaitlyn Francoiso AUTOMATIC THREAD WINDER - Reason: Contraindicated)1247 (Given - Provider: Kaitlyn Auguste LPN)1523 (Given - Provider: Kaitlyn FrancoisoMOUSTAPHAN)2025 (Given - Provider: Ashtyn Hawkins LPN) 0047 (Given - Provider: Ashtyn Hawkins LPN)0518 (Given - Provider: Ashtyn Hawkins LPN)1004 (Given - Provider: Kaitlyn Auguste LPN)1309 (Given - Provider: Kaitlyn FrancoisoMOUSTAPHAN)1600 (Not Given - Provider: Kaitlyn Alicia Francoiso AUTOMATIC THREAD WINDER - Reason: Contraindicated) amoxicillin-clavulanate (AUGMENTIN) 875-125 mg per tablet 1 tablet 1 tablet, Oral, Every 12 hours scheduled, First dose on Sat10/09/24 at 2100, For 7 days, Indication: Skin/Soft Tissue Infection 2114 (Given - Provider: Lor Holm LPN) 0823 (Given - Provider: Kaitlyn Auguste LPN)2027 (Given - Provider: Ashtyn Hawkins LPN) 1005 (Given - Provider: Kaitlyn Auguste LPN) chlorhexidine (PERIDEX) 0.12 % solution 15 mL 15 mL, Swab, 4 times daily, First dose on Sat10/08/24 at 0900, Do Not Swallow 1037 (Given - Provider: Jesus Barahona RN)1330 (Given - Provider: Jesus Barahona RN)1700 (Not Given - Provider: Jesus Barahona RN - Reason: Other)2107 (Given - Provider: Lor Holm LPN) 0823 (Given - Provider: Kaitlyn Auguste LPN)1248 (Given - Provider: Kaitlyn Auguste LPN)1700 (Given - Provider: Kaitlyn Auugste LPN)202 (Given - Provider: Ashtyn Hawkins LPN) 1005 (Given - Provider: Kaitlyn Auguste LPN)1309 (Given - Provider: Kaitlyn Auguste LPN)1700 (Given - Provider: Kaitlyn Auguste LPN) enoxaparin (LOVENOX) syringe 30 mg 30 mg, Subcutaneous, 2 times daily, First dose on Sat10/08/24 at 2100, Administer in abdomen unless otherwise directed by prescriber. Notify physician if patient refuses., Indication: VTE Prophylaxis 1037 (Given - Provider: Jesus Barahona RN)2107 (Given - Provider: Lor Holm LPN) 0823 (Given - Provider: Kaitlyn Auguste LPN)202 (Given - Provider: Ashtyn Hawkins LPN) 0900 (Not Given - Provider: Kaitlyn Auguste LPN - Reason: Patient/family refused) folic acid (FOLVITE) tablet 1 mg 1 mg, Oral, Daily (in the afternoon), First dose on Sat10/08/24 at 1645 1329 (Given - Provider: Jesus Barahona RN) 1247 (Given - Provider: Kaitlyn Auguste LPN) 1300 (Given - Provider: Kaitlyn Auguste LPN) gabapentin (NEURONTIN) capsule 200 mg 200 mg, Oral, 2 times daily, First dose on Sat10/09/24 at 2100, Capsule may be opened and contents placed down tube, flush tube with 10ml saline. 2108 (Given - Provider: Lor Holm LPN) 0824 (Given - Provider: Kaitlyn Auguste LPN)202 (Given - Provider: Ashtyn Hawkins LPN) 1004 (Given - Provider: Kaitlyn Auguste LPN) multivitamin (THERAGRAN) per tablet 1 tablet 1 tablet, Oral, Daily, First dose on Sat10/08/24 at 1645 1037 (Given - Provider: Jesus Barahona RN) 0823 (Given - Provider: Kaitlyn Auguste LPN) 1005 (Given - Provider: Kaitlyn Auguste LPN) PHENobarbitaL tablet 226.8 mg (CANCELED)(Linked Group 1) 226.8 mg (rounded from 225.9 mg = 3 mg/kg 75.3 kg [place] weight), Oral, Every 3 hours, First dose on Sat10/09/24 at 0430, For 2 doses, Does patient require REDUCED or STANDARD dosing regimen: STANDARD regimen (NO known risk factors), Standard Therapy Guidelines: Patient does not have risk factors: Less than 65 without respiratory impairment (i.e. COPD, Pneumonia, Rib Fractures), concurrent benzodiazepines or hepatic dysfunction and should receive full dose (10 mg/kg) OR has clinical justification for full dose 0526 (Given - Provider: Lor Holm LPN)0730 (Due) PHENobarbitaL tablet 226.8 mg (COMPLETED)(Linked Group 2) 226.8 mg (rounded from 225.9 mg = 3 mg/kg 75.3 kg [place] weight), Oral, Every 3 hours, First dose (after last reorder) on Sat10/09/24 at 1200, For 1 dose, Does patient require REDUCED or STANDARD dosing regimen: STANDARD regimen (NO known risk factors), Standard Therapy Guidelines: Patient does not have risk factors: Less than 65 without respiratory impairment (i.e. COPD, Pneumonia, Rib Fractures), concurrent benzodiazepines or hepatic dysfunction and should receive full dose (10 mg/kg) OR has clinical justification for full dose 1329 (Given - Provider: Jesus Barahona RN) PHENobarbitaL tablet 291.6 mg (COMPLETED)(Linked Group 1) 291.6 mg (rounded from 301.2 mg = 4 mg/kg 75.3 kg [place] weight), Oral, Once, On Sat10/09/24 at 0130, For 1 dose, Does patient require REDUCED or STANDARD dosing regimen: STANDARD regimen (NO known risk factors), Standard Therapy Guidelines: Patient does not have risk factors: Less than 65 without respiratory impairment (i.e. COPD, Pneumonia, Rib Fractures), concurrent benzodiazepines or hepatic dysfunction and should receive full dose (10 mg/kg) OR has clinical justification for full dose 0120 (Given - Provider: Lor Holm LPN) PHENobarbitaL tablet 32.4 mg (COMPLETED)(Linked Group 2) 32.4 mg, Oral, Every 12 hours, First dose on Sat10/11/24 at 0000, For 2 doses, Does patient require REDUCED or STANDARD dosing regimen: STANDARD regimen (NO known risk factors), Standard Therapy Guidelines: Patient does not have risk factors: Less than 65 without respiratory impairment (i.e. COPD, Pneumonia, Rib Fractures), concurrent benzodiazepines or hepatic dysfunction and should receive full dose (10 mg/kg) OR has clinical justification for full dose 0046 (Given - Provider: Ashtyn Hawkins LPN)1309 (Given - Provider: Kaitlyn Auguste LPN) PHENobarbitaL tablet 32.4 mg(Linked Group 2) 32.4 mg, Oral, Every 24 hours, First dose on Sat10/12/24 at 1200, For 1 dose, Does patient require REDUCED or STANDARD dosing regimen: STANDARD regimen (NO known risk factors), Standard Therapy Guidelines: Patient does not have risk factors: Less than 65 without respiratory impairment (i.e. COPD, Pneumonia, Rib Fractures), concurrent benzodiazepines or hepatic dysfunction and should receive full dose (10 mg/kg) OR has clinical justification for full dose PHENobarbitaL tablet 64.8 mg (COMPLETED)(Linked Group 2) 64.8 mg, Oral, Every 12 hours, First dose on Sat10/10/24 at 0000, For 2 doses, Does patient require REDUCED or STANDARD dosing regimen: STANDARD regimen (NO known risk factors), Standard Therapy Guidelines: Patient does not have risk factors: Less than 65 without respiratory impairment (i.e. COPD, Pneumonia, Rib Fractures), concurrent benzodiazepines or hepatic dysfunction and should receive full dose (10 mg/kg) OR has clinical justification for full dose 0011 (Given - Provider: Lor Holm LPN)1247 (Given - Provider: Kaitlyn Auguste LPN) QUEtiapine (SEROQUEL) tablet 50 mg 50 mg, Oral, Nightly, First dose on Sat10/09/24 at 2100, May cause QT interval prolongation. 2113 (Given - Provider: Lor Holm LPN) 2025 (Given - Provider: Ashtyn Hawkins LPN) senna-docusate (SENNA-S) 8.6-50 mg per tablet 1 tablet 1 tablet, Oral, 2 times daily, First dose on Sat10/08/24 at 2100, NOT for abdominal surgery patients. Hold for loose stools. Do Not Crush or Chew if administering orally due to bitter taste. May be crushed if given via tube. 1037 (Given - Provider: Jesus Barahona RN)2107 (Given - Provider: Lor Holm LPN) 0823 (Given - Provider: Kaitlyn Auguste LPN)2024 (Given - Provider: Ashtyn Hawkins LPN) 1005 (Given - Provider: Kaitlyn Auguste LPN) sodium chloride (PF) (NS) flush 5 mL(Linked Group 3) 5 mL, Intravenous, Every 8 hours scheduled, First dose on Sat10/08/24 at 1645, Saline lock 0600 (Canceled Entry - Provider: Lor Holm LPN)1400 (Due)2200 (Canceled Entry - Provider: Lor Holm LPN) 0600 (Canceled Entry - Provider: Lor Holm LPN)1400 (Canceled Entry - Provider: Kaitlyn Auguste LPN)2200 (Canceled Entry - Provider: Ashtyn Hawkins LPN) 0600 (Canceled Entry - Provider: Ashtyn Hawkins LPN)1400 (Canceled Entry - Provider: Kaitlyn Auguste LPN) thiamine (B-1) injection 200 mg 200 mg, Intravenous, Daily (in the afternoon), First dose on Sat10/08/24 at 1645, For 5 doses, Administer at a rate of 200 mg/minute if IV Push 1329 (Given - Provider: Jesus Barahona RN) 1348 (Given - Provider: Diya Tabares RN) 1300 (Not Given - Provider: Kaitlyn Auguste LPN - Reason: Patient/family refused - Comment: pt refused IV at this time) PRN Medication Order 10/09/2024 10/10/2024 10/11/2024 acetaminophen (TYLENOL) tablet 650 mg (CANCELED) 650 mg, Oral, Every 4 hours PRN, mild pain, fever 100.4 F or greater, headaches, Starting on Sat10/08/24 at 1640 0001 (Given - Provider: Lor Holm LPN) ibuprofen (ADVIL,MOTRIN) tablet 600 mg 600 mg, Oral, Every 6 hours PRN, mild pain, Starting on Sat10/08/24 at 0233, Give with Food Do Not Crush or Chew if administering orally due to bitter taste. May be crushed if given via tube. 0001 (Given - Provider: Lor Holm LPN) methocarbamoL (ROBAXIN) tablet 500 mg 500 mg, Oral, 3 times daily PRN, muscle spasms, Starting on Sat10/09/24 at 0043 0119 (Given - Provider: Lor Holm LPN) 1247 (Given - Provider: Kaitlyn Auguste LPN) 0046 (Given - Provider: Ashtyn Hawkins LPN)1309 (Given - Provider: Kaitlyn Auguste LPN) naloxone (NARCAN) injection 0.1 mg(Linked Group 4) 0.1 mg, Intravenous, As needed, opioid reversal, For respiratory rate less than or equal to 8 per minute., Starting on Kendra 10/08/24 at 1649, Mix nalOXone (NARCAN) 0.4 mg (1mL) with 9 mL of Normal Saline to total 10 mL. Administer 0.1 mg (2.5mL) IV Push every 2 minutes until respiratory rate is 10 or greater. naloxone (NARCAN) injection 0.4 mg(Linked Group 4) 0.4 mg, Intravenous, As needed, opioid reversal, patient is pulseless, breathless, and unresponsive, Starting on Kendra 10/08/24 at 1649, Call a code first, then administer naloxone dose undiluted IV Push over 30 seconds. ondansetron (ZOFRAN) injection 4 mg(Linked Group 5) 4 mg, Intravenous, Every 6 hours PRN, nausea, vomiting, Starting on Sat10/08/24 at 1637, [] Oral or IV - use oral route if tolerated. ondansetron (ZOFRAN-ODT) disintegrating tablet 4 mg(Linked Group 5) 4 mg, Oral, Every 6 hours PRN, nausea, vomiting, Starting on Sat10/08/24 at 1637, [] Oral or IV - use oral route if tolerated. Formulation requires tablet remain in sealed package until immediately prior to dose being administered. oxyCODONE (ROXICODONE) immediate release tablet 5 mg (CANCELED) 5 mg, Oral, Every 6 hours PRN, moderate to severe pain, Starting on Sat10/08/24 at 1649 0001 (Given - Provider: Lor Holm LPN) oxyCODONE (ROXICODONE) immediate release tablet 5 mg 5 mg, Oral, Every 4 hours PRN, moderate to severe pain, Starting on Sat10/09/24 at 0042 1036 (Given - Provider: Jesus Barahona RN)1610 (Given - Provider: Jesus Barahona RN)2114 (Given - Provider: Lor Holm LPN) 0511 (Given - Provider: Lor Holm LPN)1240 (Return to Cabinet - Provider: Kaitlyn Auguste LPN)1523 (Given - Provider: Kaitlyn Auguste LPN)2025 (Given - Provider: Ashtyn Hawkins LPN) 0046 (Given - Provider: Ashtyn Hawkins LPN)0519 (Given - Provider: Ashtyn Hawkins LPN)1004 (Given - Provider: Kaitlyn Auguste LPN)1513 (Given - Provider: Kaitlyn Auguste LPN) PHENobarbital injection 65 mg 65 mg, Intramuscular, Every 6 hours PRN, Two of the following: SBP greater than 160 or DBP greater than 100, Significant agitation (RASS greater than +2), HR greater than 110, Diaphoresis, tremors, Hallucinations, Starting on Sat10/09/24 at 1149, For 102 hours, VESICANT sodium chloride (PF) (NS) flush 5 mL(Linked Group 3) 5 mL, Intravenous, As needed, line care, Starting on Sat10/08/24 at 1637 sodium chloride 0.9% (NS)(Linked Group 3) 0-150 mL/hr, Intravenous, As needed, To flush line after IV infusions when no maintenance IV ordered or a compatibility issue. Infuse 20ml at the same rate as the secondary infusion, Starting on Kendra 10/08/24 at 1637, Run as Primary IV. NOT intended for KVO. Linked Groups Order Group 1: PHENobarbitaL tablet 291.6 mg (COMPLETED)Jump to med 291.6 mg (rounded from 301.2 mg = 4 mg/kg 75.3 kg [place] weight), Oral, Once, On Sat10/09/24 at 0130, For 1 dose, Does patient require REDUCED or STANDARD dosing regimen: STANDARD regimen (NO known risk factors), Standard Therapy Guidelines: Patient does not have risk factors: Less than 65 without respiratory impairment (i.e. COPD, Pneumonia, Rib Fractures), concurrent benzodiazepines or hepatic dysfunction and should receive full dose (10 mg/kg) OR has clinical justification for full dose Followed by PHENobarbitaL tablet 226.8 mg (CANCELED)Jump to med 226.8 mg (rounded from 225.9 mg = 3 mg/kg 75.3 kg [place] weight), Oral, Every 3 hours, First dose on Sat10/09/24 at 0430, For 2 doses, Does patient require REDUCED or STANDARD dosing regimen: STANDARD regimen (NO known risk factors), Standard Therapy Guidelines: Patient does not have risk factors: Less than 65 without respiratory impairment (i.e. COPD, Pneumonia, Rib Fractures), concurrent benzodiazepines or hepatic dysfunction and should receive full dose (10 mg/kg) OR has clinical justification for full dose Followed by PHENobarbitaL tablet 64.8 mg (CANCELED) 64.8 mg, Oral, Every 12 hours, First dose on Sat10/09/24 at 1930, For 2 doses Followed by PHENobarbitaL tablet 32.4 mg (CANCELED) 32.4 mg, Oral, Every 12 hours, First dose on Sat10/10/24 at 1928, For 2 doses Followed by PHENobarbitaL tablet 32.4 mg (CANCELED) 32.4 mg, Oral, Every 24 hours, First dose on Sat10/12/24 at 0730, For 1 dose Group 2: PHENobarbitaL tablet 226.8 mg (COMPLETED)Jump to med 226.8 mg (rounded from 225.9 mg = 3 mg/kg 75.3 kg [place] weight), Oral, Every 3 hours, First dose (after last reorder) on Sat10/09/24 at 1200, For 1 dose, Does patient require REDUCED or STANDARD dosing regimen: STANDARD regimen (NO known risk factors), Standard Therapy Guidelines: Patient does not have risk factors: Less than 65 without respiratory impairment (i.e. COPD, Pneumonia, Rib Fractures), concurrent benzodiazepines or hepatic dysfunction and should receive full dose (10 mg/kg) OR has clinical justification for full dose Followed by PHENobarbitaL tablet 64.8 mg (COMPLETED)Jump to med 64.8 mg, Oral, Every 12 hours, First dose on Sat10/10/24 at 0000, For 2 doses, Does patient require REDUCED or STANDARD dosing regimen: STANDARD regimen (NO known risk factors), Standard Therapy Guidelines: Patient does not have risk factors: Less than 65 without respiratory impairment (i.e. COPD, Pneumonia, Rib Fractures), concurrent benzodiazepines or hepatic dysfunction and should receive full dose (10 mg/kg) OR has clinical justification for full dose Followed by PHENobarbitaL tablet 32.4 mg (COMPLETED)Jump to med 32.4 mg, Oral, Every 12 hours, First dose on Sat10/11/24 at 0000, For 2 doses, Does patient require REDUCED or STANDARD dosing regimen: STANDARD regimen (NO known risk factors), Standard Therapy Guidelines: Patient does not have risk factors: Less than 65 without respiratory impairment (i.e. COPD, Pneumonia, Rib Fractures), concurrent benzodiazepines or hepatic dysfunction and should receive full dose (10 mg/kg) OR has clinical justification for full dose Followed by PHENobarbitaL tablet 32.4 mgJump to med 32.4 mg, Oral, Every 24 hours, First dose on Sat10/12/24 at 1200, For 1 dose, Does patient require REDUCED or STANDARD dosing regimen: STANDARD regimen (NO known risk factors), Standard Therapy Guidelines: Patient does not have risk factors: Less than 65 without respiratory impairment (i.e. COPD, Pneumonia, Rib Fractures), concurrent benzodiazepines or hepatic dysfunction and should receive full dose (10 mg/kg) OR has clinical justification for full dose Group 3: Saline lock IV (CANCELED) Routine, Continuous, Starting on Kendra 10/08/24 at 1640, Until Specified And sodium chloride (PF) (NS) flush 5 mLJump to med 5 mL, Intravenous, As needed, line care, Starting on Kendra 10/08/24 at 1637 And sodium chloride (PF) (NS) flush 5 mLJump to med 5 mL, Intravenous, Every 8 hours scheduled, First dose on Kendra 10/08/24 at 1645, Saline lock And sodium chloride 0.9% (NS)Jump to med 0-150 mL/hr, Intravenous, As needed, To flush line after IV infusions when no maintenance IV ordered or a compatibility issue. Infuse 20ml at the same rate as the secondary infusion, Starting on Kendra 10/08/24 at 1637, Run as Primary IV. NOT intended for KVO. Group 4: naloxone (NARCAN) injection 0.1 mgJump to med 0.1 mg, Intravenous, As needed, opioid reversal, For respiratory rate less than or equal to 8 per minute., Starting on Kendra 10/08/24 at 1649, Mix nalOXone (NARCAN) 0.4 mg (1mL) with 9 mL of Normal Saline to total 10 mL. Administer 0.1 mg (2.5mL) IV Push every 2 minutes until respiratory rate is 10 or greater. And Notify physician (CANCELED) STAT, Until discontinued, Starting on Kendra 10/08/24 at 1650, Until Specified, Respiratory rate less than: 8, For respiratory rate less than or equal to 8, notify physician and/or appropriate staff for additional orders. And naloxone (NARCAN) injection 0.4 mgJump to med 0.4 mg, Intravenous, As needed, opioid reversal, patient is pulseless, breathless, and unresponsive, Starting on Kendra 10/08/24 at 1649, Call a code first, then administer naloxone dose undiluted IV Push over 30 seconds. Group 5: ondansetron (ZOFRAN-ODT) disintegrating tablet 4 mgJump to med 4 mg, Oral, Every 6 hours PRN, nausea, vomiting, Starting on Kendra 10/08/24 at 1637, [] Oral or IV - use oral route if tolerated. Formulation requires tablet remain in sealed package until immediately prior to dose being administered. Or ondansetron (ZOFRAN) injection 4 mgJump to med 4 mg, Intravenous, Every 6 hours PRN, nausea, vomiting, Starting on Kendra 10/08/24 at 1637, [] Oral or IV - use oral route if tolerated. Scheduled Medication Order 10/12/2024 10/13/2024 10/14/2024 acamprosate (CAMPRAL) tablet 666 mg 666 mg, Oral, 3 times daily, First dose on Sat10/13/24 at 1500, DO NOT CRUSH OR CHEW. 1713 (Given - Provider: Arnie Akins RN - Comment: med not on floor)2024 (Given - Provider: Romelia Grove RN) 0900 (Not Given - Provider: Arnie Akins RN - Reason: Transfer to a Procedural area)0924 (APR Hold - Provider: Transfer Provider, Automatic - Reason: Patient not available)1242 (APR Unhold - Provider: Transfer Provider, Automatic)1500 (Due) ampicillin-sulbactam (UNASYN) 3000 mg in sodium chloride (NS) 0.9% 100 mL MBP 3,000 mg, Intravenous, at 100 mL/hr, Every 6 hours, First dose on Sat10/12/24 at 1700, Indication: Skin/Soft Tissue Infection 1727 (New Bag - Provider: Key Daniel RN)1841 (Stopped - Provider: Key Daniel RN) 0039 (New Bag - Provider: Sonia Mcduffie RN)0156 (Stopped - Provider: Sonia Mcduffie RN)0534 (New Bag - Provider: Sonia Mcduffie RN)0900 (Stopped - Provider: Arnie Akins RN)1220 (New Bag - Provider: Arnie Akins RN - Comment: pt unavailable)1320 (Stopped - Provider: Arnie Akins RN)1718 (New Bag - Provider: Arnie Akins RN)2050 (Stopped - Provider: Romelia Grove, KATERYNA)2300 (Not Given - Provider: Romelia Grove RN - Reason: Patient/family refused) 0532 (New Bag - Provider: Romelia Grove RN)0642 (Stopped - Provider: Romelia Grove RN)0924 (APR Hold - Provider: Transfer Provider, Automatic - Reason: Patient not available)1100 (Automatically Held - Provider: Transfer Provider, Automatic)1242 (APR Unhold - Provider: Transfer Provider, Automatic) ampicillin-sulbactam (UNASYN) 3000 mg in sodium chloride (NS) 0.9% 100 mL MBP (COMPLETED) 3,000 mg, Intravenous, at 100 mL/hr, Once, On Sat10/14/24 at 1045, For 1 dose, Indication: Other (specify), Indication: preop 1039 (New Bag - Provider: Leia Fernandez CRNA)1042 (Stopped - Provider: Leia Fernandez CRNA) bacitracin zinc-polymyxin B ointment Topical, 3 times daily, First dose on Sat10/14/24 at 1500, Apply to wound on jaw 1430 (Given - Provider: Key Gutierrez) chlorhexidine (PERIDEX) 0.12 % solution 15 mL 15 mL, Swab, 4 times daily, First dose on Sat10/12/24 at 2245, Do Not Swallow 0237 (Given - Provider: Sonia Mcduffie RN)0910 (Given - Provider: Arnie Akins RN)1412 (Given - Provider: Arnie Akins RN - Comment: pt unvailable)1713 (Given - Provider: Arnie Akins RN)202 (Given - Provider: Romelia Grove RN) 0900 (Not Given - Provider: Arnie Akins RN - Reason: Transfer to a Procedural area)0924 (APR Hold - Provider: Transfer Provider, Automatic - Reason: Patient not available)1242 (APR Unhold - Provider: Transfer Provider, Automatic)1429 (Given - Provider: Key Gutierrez) enoxaparin (LOVENOX) syringe 30 mg 30 mg, Subcutaneous, 2 times daily, First dose on Sat10/13/24 at 0900, Administer in abdomen unless otherwise directed by prescriber. Notify physician if patient refuses., Indication: VTE Prophylaxis 0900 (Not Given - Provider: Arnie Akins RN - Reason: Patient/family refused)2100 (Not Given - Provider: Romelia Grove RN - Reason: Patient/family refused) 0900 (Not Given - Provider: Arnie Akins RN - Reason: Patient/family refused)0924 (APR Hold - Provider: Transfer Provider, Automatic - Reason: Patient not available)1242 (APR Unhold - Provider: Transfer Provider, Automatic) folic acid (FOLVITE) tablet 1 mg 1 mg, Oral, Daily, First dose on Sat10/13/24 at 1000 1213 (Given - Provider: Arnie Akins RN - Comment: pt unavailable) 0900 (Due)0924 (APR Hold - Provider: Transfer Provider, Automatic - Reason: Patient not available)1242 (APR Unhold - Provider: Transfer Provider, Automatic) multivitamin (THERAGRAN) per tablet 1 tablet 1 tablet, Oral, Daily, First dose on Sat10/13/24 at 1000 1213 (Given - Provider: Arnie Akins RN - Comment: pt unavailable) 0900 (Due)0924 (APR Hold - Provider: Transfer Provider, Automatic - Reason: Patient not available)1242 ([facility] Unhold - Provider: Transfer Provider, Automatic) senna-docusate (SENNA-S) 8.6-50 mg per tablet 1 tablet 1 tablet, Oral, 2 times daily, First dose on Sat10/13/24 at 0900, Hold for loose stools. Do Not Crush or Chew if administering orally due to bitter taste. May be crushed if given via tube. 0900 (Not Given - Provider: Arnie Akins RN - Reason: Patient/family refused)2100 (Not Given - Provider: Romelia Grove RN - Reason: Patient/family refused) 0900 (Due)0924 (APR Hold - Provider: Transfer Provider, Automatic - Reason: Patient not available)1242 ([facility] Unhold - Provider: Transfer Provider, Automatic) sodium chloride (PF) (NS) flush 5 mL(Linked Group 1) 5 mL, Intravenous, Every 8 hours scheduled, First dose on Sat10/13/24 at 2200, Saline lock 2200 (Canceled Entry - Provider: Romelia Grove RN - Comment: infusion running) 0600 (Canceled Entry - Provider: Romelia Grove RN)0924 (APR Hold - Provider: Transfer Provider, Automatic - Reason: Patient not available)1242 (APR Unhold - Provider: Transfer Provider, Automatic)1434 (Given - Provider: Key Gutierrez) sodium chloride 0.9% (NS) bolus 500 mL (COMPLETED) 500 mL, Intravenous, at 967.7 mL/hr, Once, On Sat10/12/24 at 1625, For 1 dose 1714 (New Bag - Provider: Key Daniel, KATERYNA)1841 (Stopped - Provider: Key Daniel RN) thiamine (B-1) injection 200 mg 200 mg, Intravenous, Daily, First dose on Sat10/13/24 at 1000, For 5 doses, Administer at a rate of 200 mg/minute if IV Push 1213 (Given - Provider: Arnie Akins RN - Comment: pt unavailable) 0900 (Due)0924 (APR Hold - Provider: Transfer Provider, Automatic - Reason: Patient not available)1242 (APR Unhold - Provider: Transfer Provider, Automatic) vancomycin (VANCOCIN) 1250 mg in dextrose 5 % 250 mL 1,250 mg, Intravenous, at 200 mL/hr, Every 8 hours, First dose on Sat10/12/24 at 1800, Indication: Skin/Soft Tissue Infection 1843 (New Bag - Provider: Key Daniel, KATERYNA)2007 (Stopped - Provider: Ludwin Tucker RN) 0237 (New Bag - Provider: Sonia Mcduffie, KATERYNA)0928 (New Bag - Provider: Arnie Akins, KATERYNA)1043 (Stopped - Provider: Arnie Akins RN)2006 (New Bag - Provider: Romelia Grove RN - Comment: med not on the floor)2049 (Stopped - Provider: Romelia Grove RN) 0403 (New Bag - Provider: Romelia Grove, KATERYNA)0530 (Stopped - Provider: Romelia Grove RN)0924 (APR Hold - Provider: Transfer Provider, Automatic - Reason: Patient not available)1117 (New Bag - Provider: Esme Parks RN - Comment: not given in OR at time due)1242 (APR Unhold - Provider: Transfer Provider, Automatic)1255 (Stopped - Provider: Arnie Akins RN) Continuous Medication Order 10/12/2024 10/13/2024 10/14/2024 sodium chloride 0.9% (NS) 20 mL/hr, Intravenous, Continuous, Starting on Sat10/14/24 at 1015 0948 (New Bag - Prov ider: Marlen Bryan RN)1020 (Continued by Anesthesia - Provider: Leia Fernandez CRNA)1149 (Stopped - Provider: Esme Parks, KATERYNA) PRN Medication Order 10/12/2024 10/13/2024 10/14/2024 acetaminophen (TYLENOL) tablet 650 mg 650 mg, Oral, Every 4 hours PRN, mild pain, fever 100.4 F or greater, headaches, Starting on Sat10/12/24 at 2152, [] If ketorolac (TORADOL) is ordered and active, use it first for mild pain. 0910 (Given - Provider: Arnie Akins RN)1823 (Given - Provider: Arnie Akins RN) 0640 (Given - Provider: Romelia Grove RN)0924 (APR Hold - Provider: Transfer Provider, Automatic - Reason: Patient not available)1242 ([facility] Unhold - Provider: Transfer Provider, Automatic)1417 (Given - Provider: Arnie Akins RN) bacitracin zinc ointment (CANCELED) As needed, Starting on Sat10/14/24 at 1046, Intra-Procedure 1046 (Given - Provider: Marilou Vasquez MD - Comment: to surgical site) fentaNYL (SUBLIMAZE) injection 50 mcg (CANCELED) 50 mcg, Intravenous, Every 1 hour prn, moderate to severe pain, Starting on Sat10/12/24 at 1621, For 2 doses 2009 (Given - Provider: Ludwin Tucker RN) haloperidol lactate (HALDOL) injection 1 mg (COMPLETED) 1 mg, Intravenous, Once as needed, Nausea or vomiting, Starting on Sat10/14/24 at 1104, For 1 dose, PACU (only), Administer if ondansetron (Zofran), promethazine (Phenergan), metoclopromide (REGLAN), prochlorperazine (COMPAZINE) ineffective/not ordered, or as directed by anesthesia, as needed for nausea/vomiting May cause QT interval prolongation. 1123 (Given - Provider: Esme Parks RN) HYDROmorphone (DILAUDID) injection 0.5 mg (CANCELED) 0.5 mg, Intravenous, Every 5 min PRN, Pain, Starting on Sat10/14/24 at 1104, For 6 doses, PACU (only), Give if fentanyl not effective or not ordered. Do not give more than 3 mg total. 1123 (Given - Provider: Esme Parks RN)1132 (Given - Provider: Esme Parks RN)1142 (Given - Provider: Esme Parks RN)1148 (Given - Provider: Esme Parks RN) nicotine polacrilex (COMMIT) lozenge 2-4 mg 2-4 mg, Buccal, Every 1 hour prn, smoking cessation, Starting on Sat10/13/24 at 1234, If the patient reports having a cigarette within 30 minutes of waking, give 4mg. If the patient reports having a cigarette more than 30 minutes after waking, give 2mg. May use to supplement nicotine patch therapy. Instruct patient to start by placing 1 lozenge between the cheek and the gum at a time, followed by second lozenge after the first has dissolved Should NOT be chewed or swallowed; allow to slowly dissolve (about 20-30 minutes) Avoid food or drink 15 minutes before, during, or after using lozenge. DO NOT CRUSH OR CHEW. 923 (APR Hold - Provider: Transfer Provider, Automatic - Reason: Patient not available)1242 (APR Unhold - Provider: Transfer Provider, Automatic) ondansetron (ZOFRAN) injection 4 mg(Linked Group 2) 4 mg, Intravenous, Every 6 hours PRN, nausea, vomiting, Starting on Sat10/12/24 at 2152, [] Oral or IV - use oral route if tolerated. 923 (APR Hold - Provider: Transfer Provider, Automatic - Reason: Patient not available)1242 (APR Unhold - Provider: Transfer Provider, Automatic) ondansetron (ZOFRAN-ODT) disintegrating tablet 4 mg(Linked Group 2) 4 mg, Oral, Every 6 hours PRN, nausea, vomiting, Starting on Sat10/12/24 at 2152, [] Oral or IV - use oral route if tolerated. Formulation requires tablet remain in sealed package until immediately prior to dose being administered. 923 (APR Hold - Provider: Transfer Provider, Automatic - Reason: Patient not available)1242 (APR Unhold - Provider: Transfer Provider, Automatic) oxyCODONE (ROXICODONE) 10 mg/0.5 mL concentrated solution 10 mg (COMPLETED) 10 mg, Sublingual, Once as needed, moderate to severe pain, Pain, Starting on Sat10/14/24 at 1104, For 1 dose, PACU (only), Use first if unable to tolerate oral route. 1123 (Given - Provider: Esme Parks RN) oxyCODONE (ROXICODONE) 10 mg/0.5 mL concentrated solution 5 mg (CANCELED) 5 mg, Sublingual, Every 4 hours PRN, moderate to severe pain, Starting on Sat10/12/24 at 1621, For 2 doses 1715 (Given - Provider: Key Daniel RN) oxyCODONE (ROXICODONE) immediate release tablet 5 mg 5 mg, Oral, Every 4 hours PRN, moderate to severe pain, Starting on Sat10/12/24 at 2152 2209 (Given - Provider: Ludwin Tucker, KATERYNA) 1246 (Given - Provider: Arnie Akins, KATERYNA)1607 (Given - Provider: Arnie Akins, RN)2325 (Given - Provider: Ashli Mendes, KATERYNA) 0351 (Given - Provider: Romelia Grove, KATERYNA)0924 ([facility] Hold - Provider: Transfer Provider, Automatic - Reason: Patient not available)1242 ([facility] Unhold - Provider: Transfer Provider, Automatic) PHENobarbital injection 65 mg 65 mg, Intramuscular, Every 6 hours PRN, Two of the following: SBP greater than 160 or DBP greater than 100, Significant agitation (RASS greater than +2), HR greater than 110, Diaphoresis, tremors, Hallucinations, Starting on Sat10/13/24 at 1228, For 102 hours, VESICANT 0924 (APR Hold - Provider: Transfer Provider, Automatic - Reason: Patient not available)1242 (APR Unhold - Provider: Transfer Provider, Automatic) sodium chloride (NS) 0.9 % irrigation solution (CANCELED) As needed, Starting on Sat10/14/24 at 1045, Intra-Procedure 1045 (Given - Provider: Marilou Vasquez MD) sodium chloride (PF) (NS) flush 5 mL(Linked Group 1) 5 mL, Intravenous, As needed, line care, Starting on Sat10/13/24 at 2007 0924 (APR Hold - Provider: Transfer Provider, Automatic - Reason: Patient not available)1242 ([facility] Unhold - Provider: Transfer Provider, Automatic) sodium chloride 0.9% (NS)(Linked Group 1) 0-150 mL/hr, Intravenous, As needed, To flush line after IV infusions when no maintenance IV ordered or a compatibility issue. Infuse 20ml at the same rate as the secondary infusion, Starting on Sat10/13/24 at 2007, Run as Primary IV. NOT intended for KVO. 0404 (Return to Cabinet - Provider: Romelia Grove RN)0530 (New Bag - Provider: Romelia Grove RN)0642 (Stopped - Provider: Romelia Grove RN)0924 ([facility] Hold - Provider: Transfer Provider, Automatic - Reason: Patient not available)1242 ([facility] Unhold - Provider: Transfer Provider, Automatic) traZODone (DESYREL) tablet 50 mg 50 mg, Oral, Nightly PRN, sleep, Starting on Sat10/13/24 at 092023 (Given - Provider: Romelia Grove RN) 0924 ([facility] Hold - Provider: Transfer Provider, Automatic - Reason: Patient not available)1242 ([facility] Unhold - Provider: Transfer Provider, Automatic) No Frequency Medication Order 10/12/2024 10/13/2024 10/14/2024 sodium chloride 0.9 % (NS) infusion - ADS Override Pull (COMPLETED) Starting on Sat10/13/24 at 0032, For 1 dose, SONIA MCDUFFIE: cabinet override 0037 (New Bag - Provider: Sumi Mcduffie RN)0900 (Stopped - Provider: Arnie Akins RN) Linked Groups Order Group 1: Saline lock IV (CANCELED) Routine, Continuous, Starting on Sat10/13/24 at 2008, Until Specified And sodium chloride (PF) (NS) flush 5 mLJump to med 5 mL, Intravenous, As needed, line care, Starting on Sat10/13/24 at 2007 And sodium chloride (PF) (NS) flush 5 mLJump to med 5 mL, Intravenous, Every 8 hours scheduled, First dose on Sat10/13/24 at 2200, Saline lock And sodium chloride 0.9% (NS)Jump to med 0-150 mL/hr, Intravenous, As needed, To flush line after IV infusions when no maintenance IV ordered or a compatibility issue. Infuse 20ml at the same rate as the secondary infusion, Starting on Sat10/13/24 at 2008, Run as Primary IV. NOT intended for KVO. Group 2: ondansetron (ZOFRAN-ODT) disintegrating tablet 4 mgJump to med 4 mg, Oral, Every 6 hours PRN, nausea, vomiting, Starting on Sat10/12/24 at 2152, [] Oral or IV - use oral route if tolerated. Formulation requires tablet remain in sealed package until immediately prior to dose being administered. Or ondansetron (ZOFRAN) injection 4 mgJump to med 4 mg, Intravenous, Every 6 hours PRN, nausea, vomiting, Starting on Sat10/12/24 at 2152, [] Oral or IV - use oral route if tolerated. FOR RECORDS PERTAINING TO PATIENTS WHO ARE [...] BE BASED ON THE PRIMARY CLINICAL RECORDS. [email or web address] provides no warranty or guarantee of the accuracy or completeness of information in this document.
[2024-10-18 15:50] VITALS: BP 122/63; PULSE 112; RESP 18; TEMP 36.9; O2SAT 97
== END 2024-10-18 15:50 | disposition home or self-care (01) ==
PROVIDERS: Emergency Provider Emergency Medicine; Visit Provider Emergency Medicine
DX: R68.84 Jaw pain (principal); S02.609B Fracture of mandible, unspecified, initial encounter for open fracture; F17.210 Nicotine dependence, cigarettes, uncomplicated; F17.290 Nicotine dependence, other tobacco product, uncomplicated
CPT/HCPCS: 96372; 99282

== ENCOUNTER 2024-10-18 15:57 | Inpatient (IN) | payer MEDICAID, SELFPAY ==
[2024-10-18 15:58] VITALS: BP 105/83; PULSE 112; RESP 18; TEMP 36.4; O2SAT 100; BMI 23.7
--- OUTSIDE RECORDS SUMMARY | 2024-10-18 16:11 | XMS RPT_ITS | CCD ---
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 [facility],[address] [place], [place] [phone] Creatinine [Mass/Vol] 0.79 mg/dL Normal 0.70 - 1.30 [facility] Comment on above: Performed By: #### 2 12722 #### [address] [address] GFR/1.73 sq M.predicted among non-blacks MDRD (S/P/Bld) [Vol rate/Area] mL/min/{1.73_m2} Normal 60 - 999 [facility] Comment on above: Performed By: #### 2 28677 #### [facility],[address] [place] [address] Result Comment: ACCO RDING TO THE NATIONAL KIDNEY DISEASE EDUCATION PROGRAM(NKDE), A NORMAL eGFR IS A VALUE GREATER THAN OR EQUAL TO 60 ML/MIN/1.73 SQ METERS. CHRONIC KIDNEY DISEASE: <60mL/MIN/1.73 SQ METERS KIDNEY FAILURE: <15mL/MIN/1.73 SQ METERS THIS TEST SHOULD ONLY BE USED FOR PATIENTS 18 YEARS OF AGE AND OLDER. Globulin (S) [Mass/Vol] 3.1 g/dL Normal 1.5 - 3.8 [facility] Comment on above: Performed By: #### 2 46876 #### [facility],[address] [place] [address] 38709 Glucose [Mass/Vol] 106 mg/dL Normal 74 - 106 [facility] Comment on above: Performed By: #### 2 12769 #### [address] [address] Potassium [Moles/Vol] 3.7 mmol/L Normal 3.5 - 5.1 [facility] Comment on above: Performed By: #### 2 92432 #### [address] [address] Protein [Mass/Vol] 6.3 g/dL Low 6.4 - 8.2 [facility] Comment on above: Performed By: #### 2 22994 #### [address] [address] Sodium [Moles/Vol] 144 mmol/L Normal 136 - 145 [facility] Comment on above: Performed By: #### 2 89555 #### [facility],[address] [place] [address] 43198 Urea nitrogen [Mass/Vol] 6 mg/dL Low 7 - 18 [facility] Comment on above: Performed By: #### 2 49437 #### [address] [address] DRUG SCREEN URINE MEDICon AMPHETAMINES Negative Normal [facility] Comment on above: Performed By: #### 2 19177 ####[address] [address] B-DIAZEPINES Positive Normal [facility] Comment on above: Performed By: #### 2 86068 ####[facility],[address] [place] [address] 31808 BARBITURATES Positive Normal [facility] Comment on above: Performed By: #### 2 90246 ####[facility],[address] [place] [address] 98335 COCAINE Negative Normal [facility] Comment on above: Performed By: #### 2 40308 ####[facility],[address] [place] [address] 12295 DRUG SCREEN URINE MEDIC Normal [facility] Comment on above: Result Comment: DRUG SCREEN - URINE Performed By: #### 2 06122 ####[facility],[address] [place] [address] 27602 METHADONE Negative Normal [facility] Comment on above: Performed By: #### 2 44353 ####[facility],[address] [place] [address] [facility] Comment on above: Performed By: #### 2 15956 ####[facility],[address] [place] [address] [facility] Comment on above: Performed By: #### 2 15886 ####[facility],[address] [place] [address] 10541 THC Negative Normal [facility] Comment on above: Result Comment: CHACORTA ENTS RECEIVING PROTON PUMP INHIBITORS MAY DEMONSTRATE FALSE POSITIVE THC/CANNABINOID RESULTS. AN ALTERNATIVE CONFIRMATORY METHOD SHOULD BE CONSIDERED TO VERIFY POSITIVE RESULTS. Performed By: #### 2 12444 ####[facility],[address] [place], [place] [phone] ED MED ADMINISTRATION DETAIL on 09-30-2024 ED MED ADMINISTRATION DETAIL Business Services Tech - KADE BARRERA, : 1995, , Medication Administration [address] [place] [address] [phone] 09/29/2024 Patient: KADE BARERRA Sex: Male : 1995 Age: 28y MEASUREMENTS: Wt: 78.9 kg, Ht/Pedro: 71.0 in, BMI: 24.27 ALLERGIES: No known drug allergies Medication Ordered Medication Administration Date/Time 1 of 1 Normal [facility] ED NURSES CLINICAL NOTEon ED NURSES CLINICAL NOTE Nurse Narrative - KADE BARRERA, : 1995, , Nurse Clinical Narrative [address] [address] [id number] 09/29/2024 22:27:00 Patient: KADE BARRERA Sex: Male [...] Silva R.N. Problems: Depression -- 22:43 09/29/24 ALYSHAT Ibis Silva R.N. Anxiety disorder -- 22:43 [...] to Crisis.). -- 23:37 09/29/24 EDT Juanita Almtan 00:51 09/30/24. Auditing Manager at the patient's bedside (crisis). -- 01:16 09/30/24 EDT Sandra Olguin R.N. DISPOSITION / DISCHARGE Departure time: 01:32 09/30/2024. Condition at departure: improved. No learning barriers present. Discharge instructions provided and reviewed with the patient. Reviewe (more content not included)... Normal [facility] ED ORDER SHEET (CPOE ONLY)on 09-30-2024 ED ORDER SHEET (CPOE ONLY) Order Sheet - KADE BARRERA, : 1995, , Order Sheet [address] [address] [id number] 09/29/2024 Patient: KADE BARRERA Sex: Male : 1995 Age: 28y MEASUREMENTS: Wt: 78.9 kg, Ht/Pedro: 71.0 in, BMI: 24.27 ALLERGIES: No known drug allergies MEDICATION/IV/DRIP/FLUI D ORDERS Order Description Priority Entered Acknowledged Completed LAB ORDERS Order Description Priority Entered Acknowledged Collected Completed Drug Screen Urine Stat 22:38 09/29/2024 23:17 09/29/2024 23:18 09/29/2024 Medic Stat Rosa Frausto R.N. Alivia King R.NRowan Urinalysis Stat Stat 22:38 09/29/2024 23:17 09/29/2024 23:18 09/29/2024 Rosa Frausto R.N. Alivia King, R.N. CBC w Diff Stat Stat 22:38 09/29/2024 23:17 09/29/2024 23:18 09/29/2024 Rosa Frausto R.N. Alivia King, R.N. CMP Stat Stat 22:38 09/29/2024 23:17 09/29/2024 23:18 09/29/2024 Rosa Frausto R.N. Alivia King, R.Karen EKG - ED Stat Stat 22:38 09/29/2024 23:17 09/29/2024 23:18 09/29/2024 1 of 2 Order Sheet - KADE BARRERA, : 1995, , Rosa Frausto R.N. Alivia King, R.N. Acetaminophen Level Stat 22:38 09/29/2024 23:17 09/29/2024 23:18 09/29/2024 Stat Rosa Frausto R.N. Alivia King, R.NRowan Salicylate Level Stat Stat 22:38 09/29/2024 23:17 09/29/2024 23:18 09/29/2024 Rosa Frausto R.N. Alivia King, R.NRowan Rapid COVID (SARS) Stat 22:38 09/29/2024 23:17 09/29/2024 23:18 09/29/2024 ANTIGEN TEST Stat Rosa Frausto R.N. Alivia King, R.NRowan Blood Alcohol - ETOH Stat 22:38 09/29/2024 23:17 09/29/2024 23:18 09/29/2024 Stat Rosa Frausto R.N. Alivia King R.NRowan DIAGNOSTIC STUDY ORDERS Order Description Priority Entered Acknowledged Completed STAFF ORDERS Order Description Priority Entered Acknowledged Collected Completed Consult - Crisis 22:38 09/29/2024 23:17 09/29/2024 23:18 09/29/2024 Rosa Frausto R.N. Alivia King R.NRowan [Electronically signed by Rachel Bob D.O. (09/30/2024 02:22 EDT)] 2 of 2 Normal [facility] ED PHYSICIAN CLINICAL REPORT on 09-30-2024 ED PHYSICIAN CLINICAL REPORT Narrative - KADE BARRERA, : 1995, , Physician Clinical Narrative [address] [address] [id number] 09/29/2024 22:27:00 Patient: KADE BARRERA Sex: Male : 1995 Age: 28y Disposition: Discharge to Home Disposition Decision Time: 01:24 09/30/2024 Departure Time: :32 09/30/2024 Measurements Wt: 78.9 kg, Ht/Pedro: 71.0 [...] EDT CBC-COMPLETE BLOOD COUNT 3 of 11 [facility] - BRUCE KADE, : 1995, , 09/29/2024 23:09 WBC 6.3 [...] - 10.0 Final EDT 4 of 11 [facility] KADE BARRERA, : 1995, , 09/29/2024 23:09 EO % 2.1 % 0.0 - 7.0 Final EDT 09/29/2024 23:09 BASO % 0.3 % 0.0 - 2.0 Final EDT 09/29/2024 23:09 Lymph # 1.71 x10/UL 0.80 - 2.80 Final EDT 09/29/2024 23:09 Neut # 3.94 x10/UL 1.50 - 7.10 Final EDT 09/29/2024 23:09 [place] # 0.51 x10/UL 0.20 - 1.00 Fin (more content not included)... Normal [facility] ED SUPER BILLon 09-30-2024 ED SUPER BILL [facility] KADE BARRERA, : 1995, , [place] [id number] [place] [address] [id number] 09/29/2024 Patient: KADE BARRERA Sex: Male : 1995 Age: 28y Item Professional Category Description Facility Code Code Quantity Fee Total Nurse/E/M EMERGENCY 915740 1 $0.00 $0.00 DEPARTMENT VISIT MODERATE SEVERITY (70559-03) Grand Total $0.00 Providers Rachel Bob D.O. Chief Complaint SUICIDAL THOUGHTS. Principal Diagnosis Anxiety reaction. Uncomplicated alcohol intoxication.No alcohol intoxication with delirium or alcohol dependence. 1 of 2 Superbill - KADE BARRERA, : 1995, , ICD-10 Codes F41.1: Generalized anxiety disorder F10.120: Alcohol abuse with intoxication, uncomplicated F10.129: Alcohol abuse with intoxication, unspecified 2 of 2 Normal [facility] ED VISIT SUMMARYon ED VISIT SUMMARY Visit Tess - KADE BARRERA, : 1995, , Visit [address] [address] [id number] 09/29/2024 Patient: KADE BARRERA Sex: Male : [...] OR ALCOHOL DEPENDENCE 3 of 3 Normal [facility] ED VITALS FLOW SHEETon 09-30 ED VITALS FLOW SHEET Vitals - POPSIXTOKADE Costa, : 1995, , Vital Sign Flow Sheet [address] [place] [address] [id number] 09/29/2024 Patient: KADE BARRERA Sex: Male : 1995 Age: 28y Measurements Wt: 78.9 kg, Ht/Pedro: 71.0 in, BMI: 24.27 Measured Time BP MAP HR RR O2Sat ETCO2 Temp Pain GCS RTS 22:37 09/29/2024 142/77 99 104 16 95% 98.7 F 0 1 of 1 Normal [facility] SALICYLATEon 09-30-2024 SALICYLATE 3.2 mg/dl Normal 2.8 - 20.0 [facility] Comment on above: Result Comment: *PAT IENTS TREATED WITH SULFASALAZINE MAY GENERATE A FALSE HIGH RESULT FOR SALICYLATE. *PATIENTS TREATED WITH SULFAPYRIDINE MAY GENERATE A FALSE LOW RESULT FOR SALICYLATE. Performed By: #### 2 55207 #### [facility],[address] [place] [address]237 ACETAMINOPHENon 09-29-2024 Acetaminophen [Mass/Vol] ug/mL Low 10.0 - 30.0 [facility] Comment on above: Performed By: #### 2 22853 #### [facility],[address] [place] [address] 49744 ALCOHOL-BLOOD MEDICALon 09-11 Ethanol [Mass/Vol] 138 mg/dL High 0 - 50 [facility] Comment on above: Performed By: #### 2 92965 ####[facility],[address] [place] [address] 60013 CBC + DIFFon 09-29-2024 Baso # 0.02 x10EE3/UL Normal 0.00 - 0.10 [facility] Comment on above: Performed By: #### 2 58549 ####[facility],[address] [place] [address] 75883 Basophils/100 WBC (Bld) 0.3 % Normal 0.0 - 2.0 [facility] Comment on above: Performed By: #### 2 42556 ####[facility],[address] [place] [address] 98098 CBC + DIFF Normal [facility] Comment on above: Result Comment: CBC- COMPLETE BLOOD COUNT Performed By: #### 2 09058 ####[address] [address] EO # 0.13 x10EE3/UL Normal 0.00 - 0.50 [facility] Comment on above: Performed By: #### 2 32758 ####[place] [address] Eosinophils/100 WBC (Bld) 2.1 % Normal 0.0 - 7.0 [facility] Comment on above: Performed By: #### 2 59438 ####[place] [address] Erythrocyte distribution width (RBC) [Ratio] 12.0 % Normal 12.0 - 15.6 [facility] Comment on above: Performed By: #### 2 83037 ####[place] [address] Hematocrit (Bld) [Volume fraction] 42.5 % Normal 40.0 - 52.0 [facility] Comment on above: Performed By: #### 2 93100 ####[place] [address] Hemoglobin (Bld) [Mass/Vol] 15.5 g/dL Normal 13.0 - 17.5 [facility] Comment on above: Result Comment: H AN D H REPEATED Performed By: #### 2 13967 ####[place] [id number] Lymph # 1.71 x10EE3/UL Normal 0.80 - 2.80 [facility] Comment on above: Performed By: #### 2 92437 ####[place] [address] Lymphocytes/100 WBC (Bld) 27.1 % Normal 20.0 - 45.0 [facility] Comment on above: Performed By: #### 2 54194 ####[facility],[address] [place] [address] MANUAL DIFF N/A Normal [facility] Comment on above: Performed By: #### 2 34739 ####[facility],[address] [place] [address] MCH (RBC) [Entitic mass] 36 pg High 27 - 33 [facility] Comment on above: Performed By: #### 2 08799 ####[facility],[address] [place] [address] MCHC 36 X10 3 Normal 32 - 36 [facility] Comment on above: Performed By: #### 2 72483 ####[place] [address] MCV (RBC) [Entitic vol] 100 fL High 81 - 98 [facility] Comment on above: Performed By: #### 2 21589 ####[facility],[address] [place] [address] [place] # 0.51 x10EE3/UL Normal 0.20 - 1.00 [facility] Comment on above: Performed By: #### 2 89125 ####[facility],[address] [place] [address] MONOS % 8.1 % Normal 0.0 - 10.0 [facility] Comment on above: Performed By: #### 2 14145 ####[facility],[address] [place] [address] Morphology Isacc (Bld) [Interp] N/A Normal [facility] Comment on above: Performed By: #### 2 67061 ####[place] [address] Neut # 3.94 x10EE3/UL Normal 1.50 - 7.10 [facility] Comment on above: Performed By: #### 2 78882 ####[place] [address] Neutrophils/100 WBC (Bld) 62.4 % Normal 46.0 - 76.0 [facility] Comment on above: Performed By: #### 2 45880 ####[facility],[address] [place] [address] 58397 PLATELET 244 x10EE3/UL Normal 150 - 450 [facility] Comment on above: Performed By: #### 2 78415 ####[facility],[address] [place] [address] 55101 Platelet mean volume (Bld) [Entitic vol] 7.6 fL Normal 6.4 - 10.5 [facility] Comment on above: Result Comment: AUTO MATED DIFFERENTIAL Performed By: #### 2 85428 ####[facility],[address] [place] [address] 78621 RBC 4.27 x 10EE6/UL Low 4.50 - 6.00 [facility] Comment on above: Performed By: #### 2 11394 ####[facility],[address] [place] [address] 33850 WBC 6.3 x 10EE3/UL Normal 4.5 - 10.8 [facility] Comment on above: Performed By: #### 2 97549 ####[facility],[address] [place] [address] 20839 CMP with eGFRon 09-29-2024 AGE 28 years Normal [facility] Comment on above: Performed By: #### 2 20391 #### [facility],[address] [place] [address] 13922 Albumin [Mass/Vol] 3.3 g/dL Low 3.4 - 5.0 [facility] Comment on above: Performed By: #### 2 98424 #### [facility],[address] [place] [address] 27295 Albumin/Globulin [Mass ratio] 1.0 {ratio} Normal 0.9 - 1.6 [facility] Comment on above: Performed By: #### 2 81484 #### [facility],[address] [place] [address] 84077 ALK PHOS 75 U/L Normal 46 - 116 [facility] Comment on above: Performed By: #### 2 43796 #### [facility],[address] [place] [address] 36719 ALT [Catalytic activity/Vol] 76 U/L High 16 - 63 [facility] Comment on above: Performed By: #### 2 17478 #### [facility],[address] [place] [address] 67254 Anion gap [Moles/Vol] 11 mmol/L Normal 10 - 20 [facility] Comment on above: Performed By: #### 2 75625 #### [facility],[address] [place] [address] 09102 AST [Catalytic activity/Vol] 49 U/L High 15 - 37 [facility] Comment on above: Performed By: #### 2 97656 #### [facility],[address] [place] [address] 55262 B/C RATIO 6 ratio Normal 0 - 30 [facility] Comment on above: Performed By: #### 2 14512 #### [facility],[address] [place] [address] 11676 Bilirubin [Mass/Vol] 0.4 mg/dL Normal 0.2 - 1.0 [facility] Comment on above: Performed By: #### 2 91378 #### [facility],[address] [place] [address] 09784 Calcium [Mass/Vol] 8.6 mg/dL Normal 8.5 - 10.1 [facility] Comment on above: Performed By: #### 2 06066 #### [facility],[address] [place] [address] 23972 Chloride [Moles/Vol] 105 mmol/L Normal 98 - 107 [facility] Comment on above: Performed By: #### 2 94968 #### [facility],[address] [place] [address] 68853 CMP with eGFR Normal [facility] Comment on above: Result Comment: COMP REHENSIVE METABOLIC PANEL Performed By: #### 2 68722 #### [facility],[address] [place] [address] 75189 CO2 [Moles/Vol] 26.4 mmol/L Normal 21.0 - 32.0 [facility] Comment on above: Performed By: #### 2 08982 #### [facility],[address] [place] [address] Creatinine [Mass/Vol] 0.64 mg/dL Low 0.70 - 1.30 [facility] Comment on above: Performed By: #### 2 70671 #### [facility],[address] [place] [address] GFR/1.73 sq M.predicted among non-blacks MDRD (S/P/Bld) [Vol rate/Area] mL/min/{1.73_m2} Normal 60 - 999 [facility] Comment on above: Performed By: #### 2 16620 #### [facility],[address] [place], [place] [id number] Result Comment: ACCO RDING TO THE NATIONAL KIDNEY DISEASE EDUCATION PROGRAM(NKDE), A NORMAL eGFR IS A VALUE GREATER THAN OR EQUAL TO 60 ML/MIN/1.73 SQ METERS. CHRONIC KIDNEY DISEASE: <60mL/MIN/1.73 SQ METERS KIDNEY FAILURE: <15mL/MIN/1.73 SQ METERS THIS TEST SHOULD ONLY BE USED FOR PATIENTS 18 YEARS OF AGE AND OLDER. Globulin (S) [Mass/Vol] 3.4 g/dL Normal 1.5 - 3.8 [facility] Comment on above: Performed By: #### 2 30892 #### [facility],[address] [place] [address] 18105 Glucose [Mass/Vol] 116 mg/dL High 74 - 106 [facility] Comment on above: Performed By: #### 2 00929 #### [facility],[address] [place] [address] 12752 Potassium [Moles/Vol] 3.7 mmol/L Normal 3.5 - 5.1 [facility] Comment on above: Performed By: #### 2 68386 #### [facility],[address] [place] [address] 35505 Protein [Mass/Vol] 6.7 g/dL Normal 6.4 - 8.2 [facility] Comment on above: Performed By: #### 2 98967 #### [facility],[address] [place] [address] 78396 Sodium [Moles/Vol] 139 mmol/L Normal 136 - 145 [facility] Comment on above: Performed By: #### 2 44827 #### [facility],[address] [place] [address] 64083 Urea nitrogen [Mass/Vol] 4 mg/dL Low 7 - 18 [facility] Comment on above: Performed By: #### 2 82104 #### [facility],[address] [place] [address] 65974 DRUG SCREEN URINE MEDICon AMPHETAMINES Negative Normal [facility] Comment on above: Performed By: #### 2 85267 #### [facility],[address] [place] [address] 64088 B-DIAZEPINES Positive Normal [facility] Comment on above: Performed By: #### 2 54849 #### [facility],[address] [place] [address] 48352 BARBITURATES Positive Normal [facility] Comment on above: Performed By: #### 2 92629 #### [facility],[address] [place] [address] 22343 COCAINE Negative Normal [facility] Comment on above: Performed By: #### 2 56774 #### [facility],[address] [place] [address] 33686 DRUG SCREEN URINE MEDIC Normal [facility] Comment on above: Result Comment: DRUG SCREEN - URINE Performed By: #### 2 15928 #### [facility],[address] [place] [address],[facility] [address] METHADONE Negative Normal [facility] Comment on above: Performed By: #### 2 82501 #### [facility],[address] [place] [address],[facility] 79206 OPIATES Negative Normal [facility] Comment on above: Performed By: #### 2 04946 #### [facility],[address] [place] [address],[facility] [address]99 PCP Negative Normal [facility] Comment on above: Performed By: #### 2 23853 #### [facility],[address] [place] [address],[facility] 53179 THC Negative Normal [facility] Comment on above: Result Comment: CHACORTA ENTS RECEIVING PROTON PUMP INHIBITORS MAY DEMONSTRATE FALSE POSITIVE THC/CANNABINOID RESULTS. AN ALTERNATIVE CONFIRMATORY METHOD SHOULD BE CONSIDERED TO VERIFY POSITIVE RESULTS. Performed By: #### 2 78877 #### [facility],[address] [place] [address] 31308 SALICYLATEon 09-29-2024 SALICYLATE 3.0 mg/dl Normal 2.8 - 20.0 [facility] Comment on above: Result Comment: *PAT IENTS TREATED WITH SULFASALAZINE MAY GENERATE A FALSE HIGH RESULT FOR SALICYLATE. *PATIENTS TREATED WITH SULFAPYRIDINE MAY GENERATE A FALSE LOW RESULT FOR SALICYLATE. Performed By: #### 2 31592 #### [facility],[address] [place] [address] 19419 URINALYSISon 09-29-2024 Bilirubin Ql (U) Negative Normal NORMAL: NEGATIVE [facility] Comment on above: Performed By: #### 2 77007 #### [facility],[address] [place] [address],[facility] [address] Clarity (U) clear Normal NORMAL: CLEAR [facility] Comment on above: Performed By: #### 2 54505 #### [facility],[address] [place] [address] 91057 Color (U) yellow Normal NORMAL: YELLOW [facility] Comment on above: Performed By: #### 2 16178 #### [facility],[address] [place] [address] 50257 Glucose Ql (U) NORM Normal NORMAL: NORMAL [facility] Comment on above: Performed By: #### 2 82358 #### [facility],[address] [place] [address] 24663 Hemoglobin Ql (U) Negative Normal NORMAL: NEGATIVE [facility] Comment on above: Performed By: #### 2 83457 #### [facility],[address] [place] [address] 59466 Ketone Negative Normal NORMAL: NEGATIVE [facility] Comment on above: Performed By: #### 2 09178 #### [facility],[address] [place] [address] 39241 Leukocytes Negative Normal NORMAL: NEGATIVE [facility] Comment on above: Performed By: #### 2 98484 #### [facility],[address] [place] [address] 73216 Nitrite Ql (U) Negative Normal NORMAL: NEGATIVE [facility] Comment on above: Performed By: #### 2 32131 #### [facility],[address] [place] [address] 17528 pH (U) 6 [pH] Normal NORMAL: 5.0-8.0 [facility] Comment on above: Performed By: #### 2 15680 #### [facility],[address] [place] [address] 49125 Protein Ql (U) Negative Normal NORMAL: NEGATIVE [facility] Comment on above: Performed By: #### 2 80666 #### [facility],[address] [place] [address] 34351 Sp [place] 1.010 Normal NORMAL: 1.010-1.030 [facility] Comment on above: Performed By: #### 2 82372 #### [facility],[address] [place] [address] 68391 Specimen Type R Normal [facility] Comment on above: Performed By: #### 2 91279 #### [facility],[address] [place] [address] 95089 Urinalysis dipstick W Reflex Microscopic panel (U) NOT INDICATED Normal [facility] Comment on above: Performed By: #### 2 52210 #### [facility],[address] [place] [address] 85664 Urobilinog NORM Normal NORMAL: NORMAL [facility] Comment on above: Performed By: #### 2 97347 #### [facility],[address] [place] [address] 91006 ALCOHOL-BLOOD MEDICALon - Ethanol [Mass/Vol] 191 mg/dL High 0 - 50 [facility] Comment on above: Performed By: #### 2 24848 #### [facility],[address] [place] [address] 56909 CHEST 1 VIEWon 09-28-2024 CHEST 1 VIEW [place] [address] Patient: KADE BARRERA Phone#: : 1995 Age: 28 Gender: M Pt. Type: ER Account: [id number] Location: [facility] Ordering: RACHEL BOB Exam Date: 09/28/2024/0:27 Family Phys: Charge Code: [id number] Physician: Yadkin Order #: [id number] Dose#: PROCEDURE: X-RAY CHEST 1 VIEW COMPARISON: [...] Marin MD on 09/28/2024 at 1:47 Normal [facility] CMP with eGFRon 09-28-2024 AGE 28 years Normal [facility] Comment on above: Performed By: #### 2 32362 ####[facility],[address] [place] [address] 77947 Albumin [Mass/Vol] 4.0 g/dL Normal 3.4 - 5.0 [facility] Comment on above: Performed By: #### 2 27249 ####[facility],[address] [place] [address] 92083 Albumin/Globulin [Mass ratio] 1.2 {ratio} Normal 0.9 - 1.6 [facility] Comment on above: Performed By: #### 2 01767 ####[facility],[address] [place] [address] 10187 ALK PHOS 79 U/L Normal 46 - 116 [facility] Comment on above: Performed By: #### 2 51077 ####[facility],[address] [place] [address] 89190 ALT [Catalytic activity/Vol] 97 U/L High 16 - 63 [facility] Comment on above: Performed By: #### 2 88128 ####[facility],[address] [place] [address] 11891 Anion gap [Moles/Vol] 14 mmol/L Normal 10 - 20 [facility] Comment on above: Performed By: #### 2 11148 ####[facility],[address] [place] [address] 12436 AST [Catalytic activity/Vol] 111 U/L High 15 - 37 [facility] Comment on above: Performed By: #### 2 13563 ####[facility],[address] [place] [address] 39005 B/C RATIO 4 ratio Normal 0 - 30 [facility] Comment on above: Performed By: #### 2 34407 ####[facility],[address] [place] [address] 21422 Bilirubin [Mass/Vol] 0.3 mg/dL Normal 0.2 - 1.0 [facility] Comment on above: Performed By: #### 2 91738 ####[facility],[address] [place], [place] [address] Calcium [Mass/Vol] 8.6 mg/dL Normal 8.5 - 10.1 [facility] Comment on above: Performed By: #### 2 34907 ####[facility],[address] [place], [place] [address] Chloride [Moles/Vol] 104 mmol/L Normal 98 - 107 [facility] Comment on above: Performed By: #### 2 42289 ####[facility],[address] [place], [place] [address] CMP with eGFR Normal [facility] Comment on above: Result Comment: COMP REHENSIVE METABOLIC PANEL Performed By: #### 2 91277 ####[facility],[address] [place] [address] 97910 CO2 [Moles/Vol] 24.5 mmol/L Normal 21.0 - 32.0 [facility] Comment on above: Performed By: #### 2 01112 ####[facility],[address] [place] [address] 82417 Creatinine [Mass/Vol] 0.69 mg/dL Low 0.70 - 1.30 [facility] Comment on above: Performed By: #### 2 02552 ####[facility],[address] [place] [address] 44970 GFR/1.73 sq M.predicted among non-blacks MDRD (S/P/Bld) [Vol rate/Area] mL/min/{1.73_m2} Normal 60 - 999 [facility] Comment on above: Performed By: #### 2 66378 ####[facility],[address] [place] [address] 95543 Result Comment: ACCO RDING TO THE NATIONAL KIDNEY DISEASE EDUCATION PROGRAM(NKDE), A NORMAL eGFR IS A VALUE GREATER THAN OR EQUAL TO 60 ML/MIN/1.73 SQ METERS. CHRONIC KIDNEY DISEASE: <60mL/MIN/1.73 SQ METERS KIDNEY FAILURE: <15mL/MIN/1.73 SQ METERS THIS TEST SHOULD ONLY BE USED FOR PATIENTS 18 YEARS OF AGE AND OLDER. Globulin (S) [Mass/Vol] 3.3 g/dL Normal 1.5 - 3.8 [facility] Comment on above: Performed By: #### 2 55352 ####[facility],[address] [place] [address] 79988 Glucose [Mass/Vol] 93 mg/dL Normal 74 - 106 [facility] Comment on above: Performed By: #### 2 04633 ####[facility],[address] [place] [address] 94490 Potassium [Moles/Vol] 3.9 mmol/L Normal 3.5 - 5.1 [facility] Comment on above: Performed By: #### 2 10734 ####[facility],[address] [place] [address] 35405 Protein [Mass/Vol] 7.3 g/dL Normal 6.4 - 8.2 [facility] Comment on above: Performed By: #### 2 90065 ####[facility],[address] [place] [address] 85426 Sodium [Moles/Vol] 139 mmol/L Normal 136 - 145 [facility] Comment on above: Performed By: #### 2 32873 ####[facility],[address] [place] [address] 06567 Urea nitrogen [Mass/Vol] 3 mg/dL Low 7 - 18 [facility] Comment on above: Performed By: #### 2 59262 ####[facility],[address] [place] [address] BRAIN W/O CONTRASTon 08-1 CT BRAIN W/O CONTRAST [address] [address] Patient: KADE BARRERA Phone#: : 1995 Age: 28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 Comment on above: Performed By: #### L [id number] #### Police Sergeant Precinct: DIONNA JIMENEZ ([phone]) [facility] ([facility]) [address] [place] [address] [place] RBC (Bld) [#/Vol] 4.57 10*6/uL Normal 4.40-5.90 [facility] Comment on above: Performed By: #### L [id number] #### Police Sergeant Precinct: DIONNA JIMENEZ ([phone]) [facility]) [address] [place] [address] WBC (Bld) [#/Vol] 5.2 10*3/uL Normal 3.6-10.7 [facility] Comment on above: Performed By: #### L [id number] #### Police Sergeant Precinct: DIONNA JIMENEZ ([phone]) [facility] ([facility]) [address] [place] [address] [place] CKon 06-11-2024 CK [Catalytic activity/Vol] 247 U/L High 30-185 [facility] Comment on above: Performed By: #### L AB15, [id number], LAB46, LAB62 ####Police Sergeant Precinct: DIONNA JIMENEZ ([phone])[facility])[address] [place] [address] DRUGS OF ABUSEon 06-11-2024 AMPHETAMINE SCREEN Positive Normal [facility] Comment on above: Performed By: #### L [id number] ####Police Sergeant Precinct: DIONNA JIMENEZ ([phone])[facility] ([facility])[address] [place] [address] BARBITURATES SCREEN Positive Normal [facility] Comment on above: Performed By: #### L [id number] ####Police Sergeant Precinct: DIONNA JIMENEZ ([phone])[facility])[address] [place] [address] BENZODIAZEPINE SCREEN Negative Normal [facility] Comment on above: Performed By: #### L [id number] ####Police Sergeant Precinct: DIONNA JIMENEZ ([phone])[facility])[address] [place] [address] COCAINE METAB. SCREEN Negative Normal [facility] Comment on above: Performed By: #### L [id number] ####Police Sergeant Precinct: DIONNA JIMENEZ ([phone])[facility])[address] [place] [address] FENTANYL SCREEN, UR QUAL Negative Normal [facility] Comment on above: Result Comment: MARTA R COMMENTS: The expected value for all [...] under separate order. Performed By: #### L [id number] ####Police Sergeant Precinct: DIONNA JIMENEZ ([phone])[address] METHADONE SCREEN Negative [facility] Comment on above: Performed By: #### L [id number] ####Police Sergeant Precinct: DIONNA JIMENEZ ([phone])[address] OPIATES SCREEN Negative Normal [facility] Comment on above: Performed By: #### L [id number] ####Police Sergeant Precinct: DIONNA JIMENEZ ([phone])[address] OXYCODONE SCREEN Negative Normal [facility] Comment on above: Performed By: #### L [id number] ####Police Sergeant Precinct: DIONNA JIMENEZ ([phone])[address] PHENCYCLIDINE SCREEN Negative Normal [facility] Comment on above: Performed By: #### L [id number] ####Police Sergeant Precinct: DIONNA JIMENEZ ([phone])[address] ECG 12-LEADon 06-11-2024 ECG 12-LEAD IMPRESSION: Pacemaker spikes or artifacts Sinus rhythm Electronically Signed On 06-11-2024 10:13:28 EDT by Mike Wright Normal [facility] ED Nursing Noteon 06-11-2024 ED Nursing Note Report given to Larry broderick RN. Normal [facility] ED Nursing Note Pt ambulated independently back and forth to the restroom. 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 Pt currently on quality assurance monitor final; sts that the pain starts in the L shoulder and radiates into the neck and then jaw. Normal [facility] ED Nursing Note Pt heading to xray w ith transport. Normal [facility] ED Provider Noteon ED Provider Note EMERGENCY DEPARTMENT ENCOUNTER Pt Name: Kade Barrera Birthdate 1995 Date of evaluation: 06/11/2024 ED Provider: Easton Dahl, SHAYLEE - [employer]TER Patient seen independently within my scope of [...] Response: Oriented Best Motor Response: Follows commands [place] Coma Scale Score: 15 HEART Score History: [...] noted Psychia (more content not included)... Normal [facility] ETHANOLon 06-11-2024 ETHANOL IN SER/PLAS <10 Normal <10 [facility] Comment on above: Result Comment: [employer] COMMENTS: AUTO DAMAGE TRAINEE depression is seen >100 mg/dL. NOTE: This result is for medical treatment only. Analysis performed using non-forensic procedures. Performed By: #### L AB15, [id number], LAB46, LAB62 ####Police Sergeant Precinct: DIONNA JIMENEZ ([phone])[address] Ethanol (Bld) [Mass/Vol]on 0 06-11-2024 Ethanol [Mass/Vol] mg/dL NINF - 10 mg/dL [facility] Interpretation and review of laboratory results Normal [facility] AUTO DAMAGE TRAINEE depression is se en >100 mg/dL. NOTE: This result is for medical treatment only. Analysis performed using non-forensic procedures. [facility] HIGH SENSITIVITY TROPONIN, S ERIAL BASELINEon 06-11-2024 TROPONIN HS SERIAL BASELINE <3 Normal <=35 [facility] Comment on above: Result Comment: In i ndividuals presenting with symptoms > 2h, a baseline troponin <= 5 ng/L suggests acute cardiac injury is unlikely and further serial testing is generally not indicated. Performed By: #### L AB15, [id number], LAB46, LAB62 ####Police Sergeant Precinct: DIONNA JIMENEZ ([phone])SELECT [facility] ([facility])[address] [place] [address] Laboratory - Chemistry and C hemistry - challengeon 06-11-2024 CK [Catalytic activity/Vol] 247 U/L High 30 - 185 U/L [facility] Laboratory - Drug toxicology on 06-11-2024 Amphetamines Screen method >1000 ng/mL Ql (U) Positive [facility] APX Barbiturates Screen method >200 ng/mL Ql (U) Positive [facility] APX Benzodiazepines Ql (U) Negative [facility] Methadone Screen Ql (U) Negative [facility] Opiates Screen Ql (U) Negative [facility] oxyCODONE Ql (U) Negative [facility] APX Phencyclidine Ql (U) Negative [facility] APX No Panel InformationOrdered By: Mike Wright on 06-11-2024 P Horace 67 degrees [facility] CO Interval 139 ms [facility]: QRS Horace 80 degrees [facility] Work Phone: [phone] QRSD Interval 95 ms [facility] Work Phone: [phone] QT Interval 334 ms [facility] Work Phone: QTC Interval 418 ms [employer] Work Phone: T Wave Horace 52 degrees [facility] Work Phone: [employer] Work Phone: No Panel Informationon 06-11 Pacemaker spikes or artifacts Sinus rhythm Electronically Signed On 06-11-2024 10:13:28 EDT by Mike Wright CV Mike Angela MD - 06/11/2024 IMPRESSION: Pacemaker spikes or artifacts Sinus rhythm Electronically Signed On 06-11-2024 10:13:28 EDT by Mike Wright [facility] Interpretation and review of laboratory results Normal [facility] Troponin HS Serial Baseline ng/L NINF - 35 ng/L [facility] Comment on above: In individuals prese nting with symptoms > 2h, a baseline troponin <= 5 ng/L suggests acute cardiac injury is unlikely and further serial testing is generally not indicated. [facility] Interpretation and review of laboratory results Abnormal [facility] COCAINE METAB. SCREEN Negative [facility] FENTANYL SCREEN, UR QUAL Negative [facility] The expected value f or all of [...] is needed, request confirmation under separate order. [facility] Vital signsOrdered By: Mike Wright on 06-11-2024 Heart rate 94 /min bpm [facility] Work Phone: XR Chest 2 Viewson 5 1. No evidence of an acute cardiopulmonary process. Report Dictated on Electronically Signed By: Jovanni Garcia MD Electronically Signed Date/Time: 06/11/2024 5:00 AM EDT [employer] Patient Name: KADE BARRERA : 1995 [...] bones and soft tissues are grossly unremarkable. [facility] Jovanni Garcia MD - 06/11/2024 Patient [...] Electronically Signed Date/Time: 06/11/2024 5:00 AM EDT [facility] Radiology Study observation (narrative) [facility] XR Chest 2 ViewsOrdered By: Jovanni Garcia on 06-11-2024 [facility] Work Phone: ED Nursing Noteon 06-10-2024 ED Nursing Note Pt did not want to w ait to be seen. Pt seen walking out of ED. Pt A&OX4. Steady gait noted. No IV access obtained during visit. Normal [facility] ED Nursing Note Pt states he called poison control due to mixing alcohol and ice. Pt states he has been drinking beer all day. Normal [facility] ED Provider Noteon ED Provider Note Patient left without being seen after initial triage by nursing staff. As such, I did not participate in the care of this patient. Danita Barcenas PA-C 06/11/24 0118 Normal [facility] AMB POC COVID-19 COVon 01-27 Interpretation and review of laboratory results Normal [facility] SARS-CoV-2 (COVID-19) RNA DOMINIC+non-probe Ql (Nph) Negative Negative [facility] AMB POC RAPID INFLUENZA DNA/ RNAon 01-28-2024 Inflenza A Ag Positive [facility] Influenza B Ag Negative [facility] Interpretation and review of laboratory results Abnormal [facility] Office Visiton 01-28-2024 Follow-up visit [id number] Kade Barrera 1995 M Date Provider Department Center 01/28/2024 [id number]-KIBJZMBMOCHRISTY RETANA MG FAIR None No family history on file Level of Service:86137 CO OFFICE/OUTPATIENT ESTABLISHED LOW MDM 20 MIN Reason for Visit and Comments: URI [115] - Cough /Body ache/ migraine/stuffy nose /pt stated that he started new medication yesterday and that when he started feeling sick. Normal [facility] System [facility] Progress Noteon 01-28-2024 Progress Note [facility] [address] [facility] [address] Dept: [phone] Dept Loc: [phone] Subjective Kade Barrera is a 28 y.o. [...] as words (more content not included)... Normal [facility] .Auto Diffon 06-20-2023 Basophil, Absolute 0.1 10 3/mcL Normal 0.0-0.2 [facility] ([place]) Comment on above: Performed By: #### A RIVERA IBARRA, CBC, ALC, ADIFF, CMP, GFR #### [address] [address] Basophils/100 WBC (Bld) 1.0 % Normal 0.0-2.5 [facility] ([place]) Comment on above: Performed By: #### A RIVERA IBARRA, CBC, ALC, ADIFF, CMP, GFR #### [address] [address] Eosinophil, Absolute 0.0 10 3/mcL Normal 0.0-0.4 [facility] ([place]) Comment on above: Performed By: #### A RIVERA IBARRA, CBC, ALC, ADIFF, CMP, GFR #### [address] [address] Eosinophils/100 WBC (Bld) 0.5 % Normal 0.0-7.0 [facility] ([place]) Comment on above: Performed By: #### A RIVERA IBARRA, CBC, ALC, ADIFF, CMP, GFR #### [address] [address] Lymphocyte, Absolute 2.4 10 3/mcL Normal 0.8-3.9 [facility] ([place]) Comment on above: Performed By: #### A RIVERA IBARRA, CBC, ALC, ADIFF, CMP, GFR #### [address] [address] Lymphocytes/100 WBC (Bld) 29.4 % Normal 10.0-50.0 [facility] ([place]) Comment on above: Performed By: #### A RIVERA IBARRA, CBC, ALC, ADIFF, CMP, GFR #### [address] [address] Monocyte, Absolute 0.6 10 3/mcL Normal 0.2-1.0 [facility] ([place]) Comment on above: Performed By: #### A RIVERA IBARRA, CBC, ALC, ADIFF, CMP, GFR #### [address] [address] Monocytes/100 WBC (Bld) 7.6 % Normal 1.7-13.0 [facility] ([place]) Comment on above: Performed By: #### A RIVERA IBARRA, CBC, ALC, ADIFF, CMP, GFR #### [address] [address] Neutrophils/100 WBC (Bld) 61.5 % Normal 37.0-80.0 [facility] ([place]) Comment on above: Performed By: #### A RIVERA IBARRA, CBC, ALC, ADIFF, CMP, GFR #### [address] [address] .GFRon 06-20-2023 GFR 96 ml/min/1.73sqm Normal [facility] ([place]) Comment on above: Result Comment: GFR Population [...] RIVERA IBARRA, CBC, ALC, ADIFF, CMP, GFR ####[address] [place], [place] [address] GFR Non- 79 ml/min/1.73sqm Normal [facility] ([place]) Comment on above: Result Comment: GFR Population [...] RIVERA IBARRA, CBC, ALC, ADIFF, CMP, GFR ####[address] [place], [place] [address] .MDWon 06-20-2023 Monocyte Distribution Width 18.60 Normal 0.00-20.00 [facility] ([place]) Comment on above: Result Comment: For ED adult patients suspected of sepsis, MDW<=20.0 does not rule out sepsis or risk of sepsis Performed By: #### A RIVERA IBARRA, CBC, ALC, ADIFF, CMP, GFR #### Angel [address] [address] .NEUABSon 06-20-2023 Neutrophil, Absolute 5.0 10 3/mcL Normal 2.9-6.2 [facility] ([place]) Comment on above: Performed By: #### A RIVERA IBARRA, CBC, ALC, ADIFF, CMP, GFR #### [address] [address] Rob 06-20-2023 Ethanol Level <3 Normal 0-3 [facility] ([place]) Comment on above: Performed By: #### A RIVERA IBARRA, CBC, ALC, ADIFF, CMP, GFR #### [address] [address] Keiko 06-20-2023 Ammonia (P) [Moles/Vol] 15 umol/L Normal 11-32 A [facility] ([place]) Comment on above: Performed By: #### P HOS, PRO, AMM ####[place] [address] CBCon 06-20-2023 Erythrocyte distribution width (RBC) [Ratio] 12.6 % Normal 11.5-14.5 [facility] ([place]) Comment on above: Performed By: #### A RIEVRA IBARRA, CBC, ALC, ADIFF, CMP, GFR #### [place] [address] Hematocrit (Bld) [Volume fraction] 40.3 % Low 42.0-52.0 [facility] ([place]) Comment on above: Performed By: #### A RIVERA IBARRA, CBC, ALC, ADIFF, CMP, GFR #### [place] [address] Hgb 14.5 G/dL Normal 14.0-18.0 [facility] ([place]) Comment on above: Performed By: #### A RIVERA IBARRA, CBC, ALC, ADIFF, CMP, GFR #### [address] [address] MCH (RBC) [Entitic mass] 33.9 pg High 27.0-31.2 [facility] ([place]) Comment on above: Performed By: #### A RIVERA IBARRA, CBC, ALC, ADIFF, CMP, GFR #### [place] [address] MCHC 35.9 G/dL High 31.8-35.4 [facility] ([place]) Comment on above: Performed By: #### A RIVERA IBARRA, CBC, ALC, ADIFF, CMP, GFR #### [place] [address] MCV (RBC) [Entitic vol] 94.3 fL High 80.0-94.0 A [facility] ([place]) Comment on above: Performed By: #### A RIVERA IBARRA, CBC, ALC, ADIFF, CMP, GFR #### [address] [address] Platelet 230 10 3/mcL Normal 130-400 [facility] ([place]) Comment on above: Performed By: #### A RIVERA IBARRA, CBC, ALC, ADIFF, CMP, GFR #### [address] [address] Platelet mean volume (Bld) [Entitic vol] 7.5 fL Normal 7.4-10.4 [facility] ([place]) Comment on above: Performed By: #### A RIVERA IBARRA, CBC, ALC, ADIFF, CMP, GFR #### [address] [address] RBC 4.27 10 6/mcL Normal 4.04-6.13 [facility] ([place]) Comment on above: Performed By: #### A RIVERA IBARRA, CBC, ALC, ADIFF, CMP, GFR #### [address] [address] WBC 8.1 10 3/mcL Normal 4.6-10.8 [facility] ([place]) Comment on above: Performed By: #### A RIVERA IBARRA, CBC, ALC, ADIFF, CMP, GFR #### [address] [address] CMPon 06-20-2023 Albumin Level 3.8 G/dL Normal 3.5-5.0 [facility] ([place]) Comment on above: Performed By: #### A RIVERA IBARRA, CBC, ALC, ADIFF, CMP, GFR #### [address] [address] Albumin/Globulin [Mass ratio] 1.3 {ratio} Normal 1.1-2.5 [facility] ([place]) Comment on above: Performed By: #### A RIVERA IBARRA, CBC, ALC, ADIFF, CMP, GFR #### [address] [address] ALP [Catalytic activity/Vol] 77 U/L Normal 40-135 [facility] ([place]) Comment on above: Performed By: #### A RIVERA IBARRA, CBC, ALC, ADIFF, CMP, GFR #### [address] [address] ALT [Catalytic activity/Vol] 28 U/L Normal 16-63 [facility] ([place]) Comment on above: Performed By: #### A RIVERA IBARRA, CBC, ALC, ADIFF, CMP, GFR #### [address] [address] AST [Catalytic activity/Vol] 17 U/L Normal 10-40 [facility] ([place]) Comment on above: Performed By: #### A RIVERA IBARRA, CBC, ALC, ADIFF, CMP, GFR #### [address] [address] Bili Total 0.3 mg/dL Normal 0.2-1.0 [facility] ([place]) Comment on above: Result Comment: Use of this assay is not recommended for patients undergoing treatment with eltrombopag due to the potential for falsely elevated results. Performed By: #### A RIVERA IBARRA, CBC, ALC, ADIFF, CMP, GFR #### [address] [address] BUN/Creatinine Ratio 8 ratio Normal 7-27 [facility] ([place]) Comment on above: Performed By: #### A RIVERA IBARRA, CBC, ALC, ADIFF, CMP, GFR #### [address] [address] Calcium [Mass/Vol] 8.6 mg/dL Normal 8.4-10.2 [facility] ([place]) Comment on above: Performed By: #### A RIVERA IBARRA, CBC, ALC, ADIFF, CMP, GFR #### [address] [address] Chloride [Moles/Vol] 105 mmol/L Normal 98-107 [facility] ([place]) Comment on above: Performed By: #### A RIVERA IBARRA, CBC, ALC, ADIFF, CMP, GFR #### [address] [address] CO2 [Moles/Vol] 24 mmol/L Normal 22-29 [facility] ([place]) Comment on above: Performed By: #### A RIVERA IBARRA, CBC, ALC, ADIFF, CMP, GFR #### [address] [address] Creatinine [Mass/Vol] 1.12 mg/dL Normal 0.70-1.30 [facility] ([place]) Comment on above: Performed By: #### A RIVERA IBARRA, CBC, ALC, ADIFF, CMP, GFR #### [address] [address] Electrolyte Balance 14.0 mEq/L Normal 4.0-15.0 [facility] ([place]) Comment on above: Performed By: #### A RIVERA IBARRA, CBC, ALC, ADIFF, CMP, GFR #### [place] [address] Globulin 2.9 G/dL Normal [facility] ([place]) Comment on above: Performed By: #### A RIVERA IBARRA, CBC, ALC, ADIFF, CMP, GFR #### [address] [address] Glucose [Mass/Vol] 99 mg/dL Normal 70-105 [facility] ([place]) Comment on above: Performed By: #### A RIVERA IBARRA, CBC, ALC, ADIFF, CMP, GFR #### [address] [address] Potassium [Moles/Vol] 4.1 mmol/L Normal 3.5-5.1 [facility] ([place]) Comment on above: Performed By: #### A RIVERA IBARRA, CBC, ALC, ADIFF, CMP, GFR #### [address] [address] Sodium [Moles/Vol] 143 mmol/L Normal 136-145 [facility] ([place]) Comment on above: Performed By: #### A RIVERA IBARRA, CBC, ALC, ADIFF, CMP, GFR #### [address] [place], [place] [address] Total Protein 6.7 G/dL Normal 6.4-8.2 [facility] ([place]) Comment on above: Performed By: #### A RIVERA IBARRA, CBC, ALC, ADIFF, CMP, GFR #### [address] [place], [place] [address] Urea nitrogen [Mass/Vol] 9 mg/dL Normal 7-18 [facility] ([place]) Comment on above: Performed By: #### A RIVERA IBARRA, CBC, ALC, ADIFF, CMP, GFR #### [address] [place], [place] [address] CT HEAD OR BRAIN W/O CONTRAS Ton [...] Sign Date: 06/20/2023 3:18:15 AM Ordering Provider: [facility] ([place]) CT SPINE CERVICAL W/O ELLEN Francisco 06-20-2023 CT SPINE CERVICAL W/O CONTRAST ORIGINAL [...] Date: 06/20/2023 3:20:14 AM Ordering Provider: [facility] ([place]) LABORATORYOrdered By: SYSTEM SYSTEM on 06-20-2023 Ammonia [...] Comment on above: Interpretive Data: Hernandez glasgow [employer] (CHEST, 1992, 102:312S-25S) [...] 06-20-2023 Magnesium [Mass/Vol] 2.1 mg/dL Normal 1.8-2.4 [facility] ([place]) Comment on above: Performed By: #### M Shayy ####Angel [address] [address] Magnesium [Mass/Vol] 1.7 mg/dL Low 1.8-2.4 [facility] ([place]) Comment on above: Performed By: #### M G ####[address] [place], [place] [address] MRI BRAIN W/O CONTRASTon MRI BRAIN W/O [...] 4:13:50 PM Ordering Provider: ANA MARIA Robertson [facility] ([place]) PHOSon 06-20-2023 Phosphate [Mass/Vol] 2.9 mg/dL Normal 2.7-4.5 [facility] ([place]) Comment on above: Performed By: #### P HOS, PRO, AMM ####[address] [place], [place] [address] PROon 06-20-2023 PT Coag (PPP) [Time] 9.8 s Normal 9.0-14.4 [facility]) Comment on above: Performed By: #### P HOS, PRO, AMM ####[address] [place], [place] [address] PT International Ratio 0.8 Normal [facility] ([place]) Comment on above: Result Comment: [employer] [place] (CHEST, 1992, 102:312S-25S) recommended therapeutic range for oral anticoagulant therapy is: LOW RISK: Prophylaxis of venous thrombosis INR: 2.0-3.0 Treatment of pulmonary embolism 2.0-3.0 Prevention of systemic embolism 2.0-3.0 HIGH RISK: Mechanical prosthetic valves 2.5-3.5 Performed By: #### P HOS, PRO, AMM ####[address] [address] UDRUGon 06-20-2023 Amphetamine (u) Negative Normal Negative [facility] ([place]) Comment on above: Performed By: #### U DRUG #### [address] [address] Barbiturate (u) Negative Normal Negative [facility] ([place]) Comment on above: Performed By: #### U DRUG #### [address] [address] Benzodiazepine (u) Negative Normal Negative [facility] ([place]) Comment on above: Performed By: #### U DRUG #### [address] [address] Cannabinoid (u) Negative Normal Negative [facility] ([place]) Comment on above: Performed By: #### U DRUG #### [address] [address] Cocaine Ql (U) Negative Normal Negative [facility] ([place]) Comment on above: Performed By: #### U DRUG #### [address] [address] Methadone Ql (U) Negative Normal Negative [facility] ([place]) Comment on above: Performed By: #### U DRUG #### [address] [address] Opiate (u) Negative Normal Negative [facility] ([place]) Comment on above: Performed By: #### U DRUG #### [address] [address] PCP (u) Negative Normal Negative [facility] ([place]) Comment on above: Performed By: #### U DRUG #### [address] [address] Urine Drugs screened: See Below Normal [facility] ([place]) Comment on above: Result Comment: This drug [...] ONLY. Performed By: #### U DRUG #### [address] [address] XR CHEST 1 VIEWon 06-20-2023 XR CHEST [...] 3:12:39 AM Ordering Provider: MICHAEL PADRON Normal [facility] ([place]) Absolute lymphocyte countOrd ered By: Carmelo Mccray on 06-19-2023 Lymphocytes Auto (Unsp spec) [#/Vol] 2.47 10*3/uL 0.83-4.51 [facility] Automated lymphocyte count a s percentage of total leukocytesOrdered By: Carmelo Mccray on 06-19-2023 Lymphocytes/100 WBC Auto (Unsp spec) 28.9 % 19-41 [facility] Basophil percentageOrdered B y: Carmelo Mccray on 06-19-2023 Basophils/100 WBC (Bld) 0.9 % 0-1 [facility] Chloride [Moles/Vol] 108 mmol/L 98-107 [facility] Eosinophils/100 WBC (Bld) 0.6 % 0-5 [facility] Glucose [Mass/Vol] 84 mg/dL 74-106 [facility] Hemoglobin (Bld) [Mass/Vol] 14.8 g/dL 13.0-16.5 [facility] Monocytes/100 WBC (Bld) 8.4 % 0-10 [facility] Neutrophils (Bld) [#/Vol] 5.2 10*3/uL 2.0-7.7 [facility] Neutrophils/100 WBC (Bld) 60.8 % 47-70 [facility] Potassium [Moles/Vol] 3.7 mmol/L 3.5-5.1 [facility] Sodium [Moles/Vol] 140 mmol/L 136-145 [facility] WBC (Bld) [#/Vol] 8.6 10*3/uL 4.4-11.0 [facility] Determination of erythrocyte mean corpuscular volume (MCV)Ordered By: Carmelo Mccray on 06-19-2023 MCV (RBC) [Entitic vol] 95.8 fL 80-94 [facility] Erythrocyte distribution wid th ratioOrdered By: Carmelo Mccray on 06-19-2023 Erythrocyte distribution width (RBC) [Ratio] 12.0 % 11.6-14.6 [facility] Erythrocyte distribution wid th standard deviationOrdered By: Carmelo Mccray on 06-19-2023 Erythrocyte distribution width (RBC) [Entitic vol] 41.5 fL 35.1-43.9 [facility] Hematocrit Auto (Bld) [Volum e fraction]Ordered By: Carmelo Mccray on 06-19-2023 Hematocrit (Bld) [Volume fraction] 42.9 % 40-54 [facility] Immature granulocytes/100 WB C Auto (Bld)Ordered By: Carmelo Mccray on 06-19-2023 Immature granulocytes/100 WBC (Bld) 0.400 % 0.0-0.9 [facility] Comment on above: IG% - Immature Granu locytes (promyelocytes, myelocytes and metamyelocytes) > 1% indicates that a LEFT SHIFT is Present. Laboratory - Chemistry and C hemistry - challengeOrdered By: Carmelo Mccray on 06-19-2023 CO2 [Moles/Vol] 27.0 mmol/L 21.0-32.0 [facility] Urea nitrogen/Creatinine [Mass ratio] 10.0 mg/mg 10-20 [facility] Laboratory - Hematology and Cell countsOrdered By: Carmelo Mccray on 06-19-2023 MCH (RBC) [Entitic mass] 33.0 pg 27.0-32.0 [facility] MCHC (RBC) [Mass/Vol] 34.5 g/dL 32-36 [facility] Nucleated RBC/100 WBC (Bld) [Ratio] 0 % 0-5 [facility] Platelet mean volume (Bld) [Entitic vol] 9.6 fL 6.2-12.0 [facility] Platelets (Bld) [#/Vol] 263 10*3/uL 150-450 [facility] Laboratory - Microbiology an d Antimicrobial susceptibilityOrdered By: Carmelo Mccray on 06-19-2023 SARS-CoV-2 (COVID-19) RNA DOMINIC+probe Ql (Unsp spec) [facility] No Panel InformationOrdered By: Carmelo Mccray on 06-19-2023 Estimated Creatinine Clearance Calc 145.96 ml/min [facility] Estimated GFR (MDRD) Amer 131 mL/min >60 [facility] Comment on above: GFR Calc Estimated GFR (MDRD) Non-Af Amer 108 mL/min >60 [facility] Comment on above: Non- GFR Calc Troponin I High Sensitivity 10 pg/mL 3.0-78.0 [facility] Comment on above: Please Note: New Rhea t Units and Gender Specific Reference Ranges. For more information see Policy Stat Procedure Abbott High Sensitivity Troponin (TNIH) and attachments. RBC Auto (Bld) [#/Vol]Ordere d By: Carmelo Mccray on 06-19-2023 RBC (Bld) [#/Vol] 4.48 10*6/uL 4.6-6.2 [facility] Serum or plasma calcium gaetano urement (mass/volume)Ordered By: Carmelo Mccray on 06-19-2023 Calcium [Mass/Vol] 8.9 mg/dL 8.5-10.1 [facility] Serum or plasma creatinine m easurement (mass/volume)Ordered By: Carmelo Mccray on 06-19-2023 Creatinine [Mass/Vol] 0.90 mg/dL 0.70-1.30 [facility] Comment on above: The validity of the calculated GFR & GFRAA in patients over 70 years has not been determined. Clinical correlation is essential. Serum or plasma urea nitroge n measurement (mass/volume)Ordered By: Carmelo Mccray on 06-19-2023 Urea nitrogen [Mass/Vol] 9 mg/dL 7-18 [facility] Thin prep Papanicolaou smear with manual screeningOrdered By: Carmelo Mccray on 06-19-2023 Thin prep Papanicolaou smear with manual screening 5 5-15 [facility] Absolute lymphocyte countOrd ered By: Marcio Cardona on 05-01-2023 Lymphocytes Auto (Unsp spec) [#/Vol] 4.15 10*3/uL 0.83-4.51 [facility] Automated lymphocyte count a s percentage of total leukocytesOrdered By: Marcio Cardona on 05-01-2023 Lymphocytes/100 WBC Auto (Unsp spec) 41.9 % 19-41 [facility] Basophil percentageOrdered B y: Jacquie White on 05-01-2023 Basophil percentage 3.4 mg/dL 2.5-4.9 [facility] Basophil percentageOrdered B y: Marcio Cardona on 05-01-2023 Basophils/100 WBC (Bld) 1.2 % 0-1 [facility] Bilirubin [Mass/Vol] 0.60 mg/dL 0.20-1.00 [facility] Comment on above: For patients on eltr ombopag therapy, use of Dimension Abbott TBIL is not recommended. Chloride [Moles/Vol] 107 mmol/L 98-107 [facility] Eosinophils/100 WBC (Bld) 0.3 % 0-5 [facility] Glucose [Mass/Vol] 130 mg/dL 74-106 [facility] Comment on above: Fasting Glucose resu lt greater than or equal to 126 mg/dL suggests DIABETES MELLITUS per A.D.A. criteria. Hemoglobin (Bld) [Mass/Vol] 18.1 g/dL 13.0-16.5 [facility] Comment on above: CRITICAL VALUE VERIF IED. CALLED TO Lynn HAMPTON05/01/23 0559 Yaneli Villa.RESULTS READ BACK BY SAME. Monocytes/100 WBC (Bld) 6.5 % 0-10 [facility] Neutrophils (Bld) [#/Vol] 4.9 10*3/uL 2.0-7.7 [facility] Neutrophils/100 WBC (Bld) 49.6 % 47-70 [facility] Potassium [Moles/Vol] 3.8 mmol/L 3.5-5.1 [facility] Protein [Mass/Vol] 7.8 g/dL 6.4-8.2 [facility] Sodium [Moles/Vol] 143 mmol/L 136-145 [facility] WBC (Bld) [#/Vol] 9.9 10*3/uL 4.4-11.0 [facility] Blood manual differential co mment interpretation (narrative result)Ordered By: Marcio Cardona on 05-01-2023 Manual differential comment Isacc (Bld) [Interp] SCANNED [facility] Determination of erythrocyte mean corpuscular volume (MCV)Ordered By: Marcio Cardona on 05-01-2023 MCV (RBC) [Entitic vol] 93.3 fL 80-94 [facility] Erythrocyte distribution wid th ratioOrdered By: Marcio Cardona on 05-01-2023 Erythrocyte distribution width (RBC) [Ratio] 12.8 % 11.6-14.6 [facility] Erythrocyte distribution wid th standard deviationOrdered By: Marcio Cardona on 05-01-2023 Erythrocyte distribution width (RBC) [Entitic vol] 44.0 fL 35.1-43.9 [facility] Hematocrit Auto (Bld) [Volum e fraction]Ordered By: Marcio Cardona on 05-01-2023 Hematocrit (Bld) [Volume fraction] 51.3 % 40-54 [facility] Immature granulocytes/100 WB C Auto (Bld)Ordered By: Marcio Cardona on 05-01-2023 Immature granulocytes/100 WBC (Bld) 0.500 % 0.0-0.9 [facility] [facility] Comment on above: IG% - Immature Granu locytes (promyelocytes, myelocytes and metamyelocytes) > 1% indicates that a LEFT SHIFT is Present. Laboratory - Chemistry and C hemistry - challengeOrdered By: Marcio Cardona on 05-01-2023 Albumin/Globulin [Mass ratio] 1.1 {ratio} 0.9-2.4 [facility] ALP [Catalytic activity/Vol] 92 U/L 45-117 [facility] ALT [Catalytic activity/Vol] 49 U/L 16-61 [facility] CO2 [Moles/Vol] 26.0 mmol/L 21.0-32.0 [facility] Globulin (S) [Mass/Vol] 3.7 g/dL 2.2-4.2 [facility] Urea nitrogen/Creatinine [Mass ratio] 6.4 mg/mg 10-20 [facility] Laboratory - Chemistry and C hemistry - challengeOrdered By: Jacquie Beckwith on 05-01-2023 Magnesium [Mass/Vol] 2.1 mg/dL 1.6-2.6 [facility] Laboratory - CoagulationOrde red By: Marcio Cardona on 05-01-2023 INR Coag (Bld) [Relative time] 1.0 {INR} [facility] PT Coag (PPP) [Time] 13.5 s 11.7-14.9 [facility] Laboratory - Drug toxicology Ordered By: Marcio Cardona on 05-01-2023 Amphetamines Ql (U) Negative <1000 ng/mL [facility] Benzodiazepines Ql (U) Negative < 200 ng/mL [facility] Cannabinoids Screen Ql (U) Negative < 50 ng/mL [facility] Cocaine Ql (U) Negative < 300 ng/mL [facility] Opiates Ql (U) Negative < 300 ng/mL [facility] Laboratory - Hematology and Cell countsOrdered By: Marcio Cardona on 05-01-2023 MCH (RBC) [Entitic mass] 32.9 pg 27.0-32.0 [facility] MCHC (RBC) [Mass/Vol] 35.3 g/dL 32-36 [facility] Nucleated RBC/100 WBC (Bld) [Ratio] 0 % 0-5 [facility] Platelet mean volume (Bld) [Entitic vol] 9.1 fL 6.2-12.0 [facility] Platelets (Bld) [#/Vol] 371 10*3/uL 150-450 [facility] No Panel InformationOrdered By: Marcio Cardona on 05-01-2023 Estimated GFR (MDRD) Amer 125 mL/min >60 [facility] Comment on above: GFR Calc Estimated GFR (MDRD) Non-Af Amer 103 mL/min >60 [facility] Comment on above: Non- GFR Calc Ethyl Alcohol Level 208.0 mg/dL [facility] Comment on above: The serum:whole bloo d ethanol ratio is approximately 1.14and varies slightly with hematocrit. Medical Alcohol reference interval and critical value innon-tolerant individuals; 50 - 100 Impairment 100 Intoxication 100 - 250 Severe Poisoning 250 - 400 Deep/possible fatal coma MDMA (Ecstasy) Screen Negative < 500 ng/mL [facility] Urine Barbiturates Screen Negative < 200 ng/mL [facility] Urine Drug Screen Comment [facility] Comment on above: CONFIRMATORY TESTING FOR ALL [...] Urine Methadone Screen Negative < 300 ng/mL [facility] RBC Auto (Bld) [#/Vol]Ordere d By: Marcio Cardona on 05-01-2023 RBC (Bld) [#/Vol] 5.50 10*6/uL 4.6-6.2 [facility] Review by pathologistOrdered By: Marcio Cardona on 05-01-2023 Pathologist review Isacc (Unsp spec) [Interp] Cheryl holland [facility] Pathologist review Isacc (Unsp spec) [Interp] Reviewed [facility] Comment on above: Previous reported re sult: Cheryl holland Edited by: МАРИНА on 05/02/23:0932PolycythemiaClinical correlation necessary.Mahesh Sharma M.D. 05/02/23 AMENDED REPORT 05/02/23 0932 PATH REV previously reported as: June Serum or plasma calcium gaetano urement (mass/volume)Ordered By: Marcio Cardona on 05-01-2023 Calcium [Mass/Vol] 8.6 mg/dL 8.5-10.1 [facility] Serum or plasma creatinine m easurement (mass/volume)Ordered By: Marcio Cardona on 05-01-2023 Creatinine [Mass/Vol] 0.94 mg/dL 0.70-1.30 [facility] Comment on above: The validity of the calculated GFR & GFRAA in patients over 70 years has not been determined. Clinical correlation is essential. Serum or plasma urea nitroge n measurement (mass/volume)Ordered By: Marcio Cardona on 05-01-2023 Urea nitrogen [Mass/Vol] 6 mg/dL 7-18 [facility] Thin prep Papanicolaou smear with manual screeningOrdered By: Marcio Cardona on 05-01-2023 Thin prep Papanicolaou smear with manual screening 4.1 g/dL 3.2-5.0 [facility] Thin prep Papanicolaou smear with manual screening 31 U/L 15-37 [facility] Thin prep Papanicolaou smear with manual screening 10 5-15 [facility] Urine phencyclidine (PCP) de tectionOrdered By: Marcio Cardona on 05-01-2023 Phencyclidine Ql (U) Negative < 25 ng/mL [facility] Basophil percentageOrdered B y: Jacquie Beckwith on 03-23-2023 Basophil percentage 2.9 mg/dL 2.5-4.9 [facility] Laboratory - Chemistry and C hemistry - challengeOrdered By: Jacquie Beckwith on 03-23-2023 Magnesium [Mass/Vol] 2.0 mg/dL 1.6-2.6 [facility] Laboratory - CoagulationOrde red By: Stan Thomas on 03-23-2023 INR Coag (Bld) [Relative time] 0.9 {INR} [facility] PT Coag (PPP) [Time] 12.2 s 11.7-14.9 [facility] Absolute lymphocyte countOrd ered By: Daquan Reid on 03-22-2023 Lymphocytes Auto (Unsp spec) [#/Vol] 3.11 10*3/uL 0.83-4.51 [facility] Automated lymphocyte count a s percentage of total leukocytesOrdered By: Daquan Reid on 03-22-2023 Lymphocytes/100 WBC Auto (Unsp spec) 34.2 % 19-41 [facility] Basophil percentageOrdered B y: Daquan Reid on 03-22-2023 Basophils/100 WBC (Bld) 0.8 % 0-1 [facility] Bilirubin [Mass/Vol] 0.70 mg/dL 0.20-1.00 [facility] Comment on above: For patients on eltr ombopag therapy, use of Dimension Abbott TBIL is not recommended. Chloride [Moles/Vol] 108 mmol/L 98-107 [facility] Eosinophils/100 WBC (Bld) 0.1 % 0-5 [facility] Glucose [Mass/Vol] 117 mg/dL 74-106 [facility] Comment on above: Fasting Glucose resu lt from 100 to 125 mg/dL suggests IMPAIRED HOMEOSTASIS per A.D.A. criteria. Hemoglobin (Bld) [Mass/Vol] 16.8 g/dL 13.0-16.5 [facility] Monocytes/100 WBC (Bld) 6.3 % 0-10 [facility] Neutrophils (Bld) [#/Vol] 5.3 10*3/uL 2.0-7.7 [facility] Neutrophils/100 WBC (Bld) 58.3 % 47-70 [facility] Potassium [Moles/Vol] 4.0 mmol/L 3.5-5.1 [facility] Protein [Mass/Vol] 8.1 g/dL 6.4-8.2 [facility] Sodium [Moles/Vol] 140 mmol/L 136-145 [facility] WBC (Bld) [#/Vol] 9.1 10*3/uL 4.4-11.0 [facility] Determination of erythrocyte mean corpuscular volume (MCV)Ordered By: Daquan Hirscheren on 03-22-2023 MCV (RBC) [Entitic vol] 88.6 fL 80-94 [facility] Erythrocyte distribution wid th ratioOrdered By: Daquan Reid on 03-22-2023 Erythrocyte distribution width (RBC) [Ratio] 12.4 % 11.6-14.6 [facility] Erythrocyte distribution wid th standard deviationOrdered By: Daquan Reid on 03-22-2023 Erythrocyte distribution width (RBC) [Entitic vol] 40.2 fL 35.1-43.9 [facility] Hematocrit Auto (Bld) [Volum e fraction]Ordered By: Daquan Reid on 03-22-2023 Hematocrit (Bld) [Volume fraction] 46.8 % 40-54 [facility] Immature granulocytes/100 WB C Auto (Bld)Ordered By: Daquan Reid on 03-22-2023 Immature granulocytes/100 WBC (Bld) 0.300 % 0.0-0.9 [facility] Comment on above: IG% - Immature Granu locytes (promyelocytes, myelocytes and metamyelocytes) > 1% indicates that a LEFT SHIFT is Present. Laboratory - Chemistry and C hemistry - challengeOrdered By: Daquan Reid on 03-22-2023 Albumin/Globulin [Mass ratio] 1.2 {ratio} 0.9-2.4 [facility] ALP [Catalytic activity/Vol] 105 U/L 45-117 [facility] ALT [Catalytic activity/Vol] 27 U/L 16-61 [facility] CO2 [Moles/Vol] 25.0 mmol/L 21.0-32.0 [facility] Globulin (S) [Mass/Vol] 3.7 g/dL 2.2-4.2 [facility] Urea nitrogen/Creatinine [Mass ratio] 8.1 mg/mg 10-20 [facility] Laboratory - Chemistry and C hemistry - challengeOrdered By: Stan Thomas on 03-22-2023 Amylase [Catalytic activity/Vol] 34 U/L 15-85 [facility] Laboratory - Drug toxicology Ordered By: Daquan Reid on 03-22-2023 Amphetamines Ql (U) Negative <1000 ng/mL [facility] Benzodiazepines Ql (U) Negative < 200 ng/mL [facility] Cannabinoids Screen Ql (U) Negative < 50 ng/mL [facility] Cocaine Ql (U) Negative < 300 ng/mL [facility] Opiates Ql (U) Negative < 300 ng/mL [facility] Laboratory - Hematology and Cell countsOrdered By: Daquan Reid on 03-22-2023 MCH (RBC) [Entitic mass] 31.8 pg 27.0-32.0 [facility] MCHC (RBC) [Mass/Vol] 35.9 g/dL 32-36 [facility] Nucleated RBC/100 WBC (Bld) [Ratio] 0 % 0-5 [facility] Platelet mean volume (Bld) [Entitic vol] 9.2 fL 6.2-12.0 [facility] Platelets (Bld) [#/Vol] 367 10*3/uL 150-450 [facility] No Panel InformationOrdered By: Daquan Reid on 03-22-2023 Estimated Creatinine Clearance Calc 138.63 ml/min [facility] Estimated GFR (MDRD) Amer 137 mL/min >60 [facility] Comment on above: GFR Calc Estimated GFR (MDRD) Non-Af Amer 113 mL/min >60 [facility] Comment on above: Non- GFR Calc Ethyl Alcohol Level 212.0 mg/dL [facility] Comment on above: The serum:whole bloo d ethanol ratio is approximately 1.14and varies slightly with hematocrit. Medical Alcohol reference interval and critical value innon-tolerant individuals; 50 - 100 Impairment 100 Intoxication 100 - 250 Severe Poisoning 250 - 400 Deep/possible fatal coma MDMA (Ecstasy) Screen Negative < 500 ng/mL [facility] Urine Barbiturates Screen Negative < 200 ng/mL [facility] Urine Drug Screen Comment See comment [facility] Comment on above: CONFIRMATORY TESTING FOR ALL [...] UTCAPrevious reported result: Edited by: QI on 03/22/23:2327 AMENDED REPORT 03/22/23 2327 TO BE CONFIRMED [...] Methadone Screen Negative < 300 ng/mL [facility] RBC Auto (Bld) [#/Vol]Ordere d By: Daquan Reid on 03-22-2023 RBC (Bld) [#/Vol] 5.28 10*6/uL 4.6-6.2 [facility] Serum or plasma calcium gaetano urement (mass/volume)Ordered By: Daquan Reid on 03-22-2023 Calcium [Mass/Vol] 9.1 mg/dL 8.5-10.1 [facility] Serum or plasma creatinine m easurement (mass/volume)Ordered By: Daquan Reid on 03-22-2023 Creatinine [Mass/Vol] 0.86 mg/dL 0.70-1.30 [facility] Comment on above: The validity of the calculated GFR & GFRAA in patients over 70 years has not been determined. Clinical correlation is essential. Serum or plasma urea nitroge n measurement (mass/volume)Ordered By: Daquan Reid on 03-22-2023 Urea nitrogen [Mass/Vol] 7 mg/dL 7-18 [facility] Thin prep Papanicolaou smear with manual screeningOrdered By: Daquan Reid on 03-22-2023 Thin prep Papanicolaou smear with manual screening 4.4 g/dL 3.2-5.0 [facility] Thin prep Papanicolaou smear with manual screening 18 U/L 15-37 [facility] Thin prep Papanicolaou smear with manual screening 7 5-15 [facility] Urine phencyclidine (PCP) de tectionOrdered By: Daquan Reid on 03-22-2023 Phencyclidine Ql (U) Negative < 25 ng/mL [facility] Absolute lymphocyte countOrd ered By: Cadence Cornelius on 08-05-2022 Lymphocytes Auto (Unsp spec) [#/Vol] 2.36 10*3/uL 0.83-4.51 [facility] Basophil percentageOrdered B y: Cadence Cornelius on 08-05-2022 Basophils/100 WBC (Bld) 1.0 % 0-1 [facility] Bilirubin [Mass/Vol] 0.70 mg/dL 0.20-1.00 [facility] Comment on above: For patients on eltr ombopag therapy, use of Dimension Abbott TBIL is not recommended. Chloride [Moles/Vol] 109 mmol/L 98-107 [facility] Eosinophils/100 WBC (Bld) 0.3 % 0-5 [facility] Glucose [Mass/Vol] 116 mg/dL 74-106 [facility] Comment on above: Fasting Glucose resu lt from 100 to 125 mg/dL suggests IMPAIRED HOMEOSTASIS per A.D.A. criteria. Neutrophils (Bld) [#/Vol] 4.0 10*3/uL 2.0-7.7 [facility] Neutrophils/100 WBC (Bld) 56.8 % 47-70 [facility] Potassium [Moles/Vol] 4.0 mmol/L 3.5-5.1 [facility] Protein [Mass/Vol] 6.4 g/dL 6.4-8.2 [facility] Sodium [Moles/Vol] 143 mmol/L 136-145 [facility] WBC (Bld) [#/Vol] 7.1 10*3/uL 4.4-11.0 [facility] Blood erythrocytes count (nu mber/volume)Ordered By: Cadence Cornelius on 08-05-2022 RBC (Bld) [#/Vol] 4.56 10*6/uL 4.6-6.2 [facility] Blood hemoglobin measurement (mass/volume)Ordered By: Cadence Cornelius on 08-05-2022 Hemoglobin (Bld) [Mass/Vol] 14.6 g/dL 13.0-16.5 [facility] Blood lymphocytes/100 leukoc ytesOrdered By: Cadence Cornelius on 08-05-2022 Lymphocytes/100 WBC (Bld) 33.2 % 19-41 [facility] Blood monocytes/100 leukocyt esOrdered By: Cadence Cornelius on 08-05-2022 Monocytes/100 WBC (Bld) 8.3 % 0-10 [facility] Blood platelet mean volumeOr dered By: Cadence Cornelius on 08-05-2022 Platelet mean volume (Bld) [Entitic vol] 9.1 fL 6.2-12.0 [facility] Determination of erythrocyte mean corpuscular volume (MCV)Ordered By: Cadence Cornelius on 08-05-2022 MCV (RBC) [Entitic vol] 90.6 fL 80-94 [facility] Direct bilirubinOrdered By: Cadence Cornelius on 08-05-2022 Bilirubin.direct [Mass/Vol] 0.19 mg/dL 0.00-0.30 [facility] Hematocrit Auto (Bld) [Volum e fraction]Ordered By: Cadence Cornelius on 08-05-2022 Hematocrit (Bld) [Volume fraction] 41.3 % 40-54 [facility] Laboratory - Chemistry and C hemistry - challengeOrdered By: Cadence Cornelius on 08-05-2022 ALP [Catalytic activity/Vol] 73 U/L 45-117 [facility] ALT [Catalytic activity/Vol] 24 U/L 16-61 [facility] CO2 [Moles/Vol] 28.0 mmol/L 21.0-32.0 [facility] Globulin (S) [Mass/Vol] 2.9 g/dL 2.2-4.2 [facility] Urea nitrogen/Creatinine [Mass ratio] 10.0 mg/mg 10-20 [facility] Laboratory - Drug toxicology Ordered By: Cadence Cornelius on 08-05-2022 Amphetamines Ql (U) Negative <1000 ng/mL [facility] Benzodiazepines Ql (U) Negative < 200 ng/mL [facility] Cannabinoids Screen Ql (U) Negative < 50 ng/mL [facility] Cocaine Ql (U) Positive < 300 ng/mL [facility] Opiates Ql (U) Negative < 300 ng/mL [facility] Laboratory - Hematology and Cell countsOrdered By: Cadence Cornelius on 08-05-2022 Erythrocyte distribution width (RBC) [Entitic vol] 38.1 fL 35.1-43.9 [facility] Erythrocyte distribution width (RBC) [Ratio] 11.6 % 11.6-14.6 [facility] Immature granulocytes/100 WBC (Bld) 0.400 % 0.0-0.9 [facility] Comment on above: IG% - Immature Granu locytes (promyelocytes, myelocytes and metamyelocytes) > 1% indicates that a LEFT SHIFT is Present. MCH (RBC) [Entitic mass] 32.0 pg 27.0-32.0 [facility] Nucleated RBC/100 WBC (Bld) [Ratio] 0 % 0-5 [facility] MCHC Auto (RBC) [Mass/Vol]Or dered By: Cadence Cornelius on 08-05-2022 MCHC (RBC) [Mass/Vol] 35.4 g/dL 32-36 [facility] No Panel InformationOrdered By: Cadence Cornelius on 08-05-2022 MDMA (Ecstasy) Screen Negative < 500 ng/mL [facility] Urine Barbiturates Screen Negative < 200 ng/mL [facility] Urine Drug Screen Comment [facility] Comment on above: CONFIRMATORY TESTING FOR ALL [...] Methadone Screen Negative < 300 ng/mL [facility] Estimated Creatinine Clearance Calc 150.34 ml/min [facility] Estimated GFR (MDRD) Amer 151 mL/min >60 [facility] Comment on above: GFR Calc Estimated GFR (MDRD) Non-Af Amer 125 mL/min >60 [facility] Comment on above: Non- GFR Calc Ethyl Alcohol Level 219.0 mg/dL [facility] Comment on above: The serum:whole bloo d ethanol ratio is approximately 1.14and varies slightly with hematocrit. Medical Alcohol reference interval and critical value innon-tolerant individuals; 50 - 100 Impairment 100 Intoxication 100 - 250 Severe Poisoning 250 - 400 Deep/possible fatal coma Platelets bldOrdered By: Geraldine Cornelius on 08-05-2022 Platelets (Bld) [#/Vol] 249 10*3/uL 150-450 [facility] Serum or plasma albumin gaetano urement (mass/volume)Ordered By: Cadence Cornelius on 08-05-2022 Albumin [Mass/Vol] 3.5 g/dL 3.2-5.0 [facility] Serum or plasma calcium gaetano urement (mass/volume)Ordered By: Cadence Cornelius on 08-05-2022 Calcium [Mass/Vol] 8.2 mg/dL 8.5-10.1 [facility] Serum or plasma creatinine m easurement (mass/volume)Ordered By: Cadence Cornelius on 08-05-2022 Creatinine [Mass/Vol] 0.80 mg/dL 0.70-1.30 [facility] Comment on above: The validity of the calculated GFR & GFRAA in patients over 70 years has not been determined. Clinical correlation is essential. Serum or plasma urea nitroge n measurement (mass/volume)Ordered By: Cadence Cornelius on 08-05-2022 Urea nitrogen [Mass/Vol] 8 mg/dL 7-18 [facility] Thin prep Papanicolaou smear with manual screeningOrdered By: Cadence Cornelius on 08-05-2022 Thin prep Papanicolaou smear with manual screening 17 U/L 15-37 [facility] Thin prep Papanicolaou smear with manual screening 6 5-15 [facility] Urine phencyclidine (PCP) de tectionOrdered By: Cadence Cornelius on 08-05-2022 Phencyclidine Ql (U) Negative < 25 ng/mL [facility] Vital Signs Date Time Vital Sign Value Performing Clinician Facility 10-18-2024 15:50-0400 Body temperature 98.4 [degF] No Primary Care Physician [facility] 10-18-2024 15:50-0400 Diastolic blood pressure 63 mm[Hg] No Primary Care Physician [facility] 10-18-2024 15:50-0400 Heart rate 112 /min No Primary Care Physician [facility] 10-18-2024 15:50-0400 Respiratory rate 18 /min No Primary Care Physician [facility] 10-18-2024 15:50-0400 SaO2% (BldA) [Mass fraction] 97 % No Primary Care Physician [facility] 10-18-2024 15:50-0400 Systolic blood pressure 122 mm[Hg] No Primary Care Physician [facility] 10-18-2024 15:03-0400 Body height 180.34 cm No Primary Care Physician [facility] 10-18-2024 15:03-0400 Body mass index (BMI) [Ratio] 24 kg/m2 No Primary Care Physician [facility] 10-18-2024 15:03-0400 Body weight 78.2 kg No Primary Care Physician [facility] 10-14-2024 12:55-0400 Respiratory rate 16 /min Kristian Parekh MD Work Phone: [facility] 10-14-2024 12:43-0400 Body temperature 97.81 [degF] Kristian Parekh MD Work Phone: [facility] 10-14-2024 12:43-0400 Diastolic blood pressure 76 mm[Hg] Kristian Parekh MD Work Phone: [facility] 10-14-2024 12:43-0400 Heart rate 72 /min Kristian Parekh MD Work Phone: [facility] 10-14-2024 12:43-0400 SaO2% (BldA) [Mass fraction] 96 % Kristian Parekh MD Work Phone: [facility] 10-14-2024 12:43-0400 Systolic blood pressure 121 mm[Hg] Kristian Parekh MD Work Phone: [facility] 10-12-2024 23:15-0400 Body height 180.3 cm Kristian Parekh MD Work Phone: [facility] 10-12-2024 23:15-0400 Body mass index (BMI) [Ratio] 24.13 kg/m2 Kristian Parekh MD Work Phone: [facility] 10-12-2024 23:15-0400 Body weight 78.47 kg Kristian Parekh MD Work Phone: [facility] 10-11-2024 15:13-0400 Respiratory rate 16 /min [facility] 10-11-2024 14:29-0400 Body temperature 98.01 [degF] [facility] 10-11-2024 14:29-0400 Diastolic blood pressure 76 mm[Hg] [facility] 10-11-2024 14:29-0400 Heart rate 77 /min [facility] 10-11-2024 14:29-0400 SaO2% (BldA) [Mass fraction] 97 % [facility] 10-11-2024 14:29-0400 Systolic blood pressure 124 mm[Hg] [facility] 10-08-2024 00:54-0400 Body height 180.3 cm [facility] 10-08-2024 00:54-0400 Body mass index (BMI) [Ratio] 24.41 kg/m2 [facility] 10-08-2024 00:54-0400 Body weight 79.38 kg [facility] 10-05-2024 13:15-0400 Respiratory rate 16 /min [facility] 10-05-2024 11:25-0400 Diastolic blood pressure 76 mm[Hg] [facility] 10-05-2024 11:25-0400 Heart rate 107 /min [facility] 10-05-2024 11:25-0400 SaO2% (BldA) [Mass fraction] 98 % [facility] 10-05-2024 11:25-0400 Systolic blood pressure 124 mm[Hg] [facility] 10-05-2024 11:00-0400 Body temperature 100.9 [degF] [facility] 10-05-2024 04:00-0400 Body height 180.3 cm [facility] 10-05-2024 04:00-0400 Body mass index (BMI) [Ratio] 23.98 kg/m2 [facility] 10-05-2024 04:00-0400 Body weight 78 kg [facility] 10-04-2024 11:56-0400 Respiratory rate 16 /min [facility] 10-04-2024 11:23-0400 Body temperature 98.01 [degF] [facility] 10-04-2024 11:23-0400 Diastolic blood pressure 70 mm[Hg] [facility] 10-04-2024 11:23-0400 Heart rate 110 /min [facility] 10-04-2024 11:23-0400 SaO2% (BldA) [Mass fraction] 96 % [facility] 10-04-2024 11:23-0400 Systolic blood pressure 150 mm[Hg] [facility] 10-04-2024 07:15-0400 Body height 180.3 cm [facility] 10-04-2024 07:15-0400 Body mass index (BMI) [Ratio] 24.27 kg/m2 [facility] 10-04-2024 07:15-0400 Body weight 78.93 kg [facility] 10-02-2024 08:18-0400 Body temperature 97.9 [degF] No Primary Care Physician [facility] 10-02-2024 08:18-0400 Diastolic blood pressure 78 mm[Hg] No Primary Care Physician [facility] 10-02-2024 08:18-0400 Heart rate 97 /min No Primary Care Physician [facility] 10-02-2024 08:18-0400 Respiratory rate 16 /min No Primary Care Physician [facility] 10-02-2024 08:18-0400 SaO2% (BldA) [Mass fraction] 98 % No Primary Care Physician [facility] 10-02-2024 08:18-0400 Systolic blood pressure 132 mm[Hg] No Primary Care Physician [facility] 10-02-2024 04:55-0400 Body height 180.34 cm No Primary Care Physician [facility] 10-02-2024 04:55-0400 Body mass index (BMI) [Ratio] 25.4 kg/m2 No Primary Care Physician [facility] 10-02-2024 04:55-0400 Body weight 83 kg No Primary Care Physician [facility] 10-02-2024 04:06-0400 Body height 180.34 cm No Primary Care Physician [facility] 10-02-2024 04:06-0400 Body mass index (BMI) [Ratio] 25.4 kg/m2 No Primary Care Physician [facility] 10-02-2024 04:06-0400 Body temperature 98.4 [degF] [facility] [facility] 04:06-0400 Body weight 83 kg No Primary Care Physician [facility] 10-02-2024 04:06-0400 Diastolic blood pressure 92 mm[Hg] No Primary Care Physician [facility] 10-02-2024 04:06-0400 Heart rate 97 /min No Primary Care Physician [facility] 10-02-2024 04:06-0400 Respiratory rate 18 /min No Primary Care Physician [facility] 10-02-2024 04:06-0400 SaO2% (BldA) [Mass fraction] 99 % No Primary Care Physician [facility] 10-02-2024 04:06-0400 Systolic blood pressure 144 mm[Hg] No Primary Care Physician [facility] 10-01-2024 14:00-0400 Body temperature 97.6 [degF] No Primary Care Physician [facility] 10-01-2024 14:00-0400 Diastolic blood pressure 73 mm[Hg] No Primary Care Physician [facility] 10-01-2024 14:00-0400 Heart rate 54 /min No Primary Care Physician [facility] 10-01-2024 14:00-0400 Respiratory rate 12 /min No Primary Care Physician [facility] 10-01-2024 14:00-0400 SaO2% (BldA) [Mass fraction] 98 % No Primary Care Physician [facility] 10-01-2024 14:00-0400 Systolic blood pressure 131 mm[Hg] No Primary Care Physician [facility] 10-01-2024 10:00-0400 Inhaled oxygen flow rate 99 L/min No Primary Care Physician [facility] 10-01-2024 01:52-0400 Body height 180.34 cm No Primary Care Physician [facility] 10-01-2024 01:52-0400 Body mass index (BMI) [Ratio] 25.7 kg/m2 No Primary Care Physician [facility] 10-01-2024 01:52-0400 Body weight 83.46 kg No Primary Care Physician [facility] 06-11-2024 07:27-0400 Diastolic blood pressure 83 mm[Hg] [facility] 06-11-2024 07:27-0400 Heart rate 80 /min [facility] 06-11-2024 07:27-0400 Respiratory rate 18 /min [facility] 06-11-2024 07:27-0400 SaO2% (BldA) [Mass fraction] 98 % [facility] 06-11-2024 07:27-0400 Systolic blood pressure 126 mm[Hg] [facility] 06-11-2024 04:18-0400 Body temperature 97.3 [degF] [facility] 06-11-2024 04:14-0400 Body height 180.3 cm [facility] 06-11-2024 04:14-0400 Body mass index (BMI) [Ratio] 24.55 kg/m2 [facility] 06-11-2024 04:14-0400 Body weight 79.83 kg [facility] 06-10-2024 22:29-0400 Body height 180.3 cm [facility] 06-10-2024 22:29-0400 Body mass index (BMI) [Ratio] 24.55 kg/m2 [facility] 06-10-2024 22:29-0400 Body weight 79.83 kg [facility] 06-10-2024 22:26-0400 Body temperature 96.3 [degF] [facility] 06-10-2024 22:26-0400 Diastolic blood pressure 96 mm[Hg] [facility] 06-10-2024 22:26-0400 Heart rate 108 /min [facility] 06-10-2024 22:26-0400 Respiratory rate 16 /min [facility] 06-10-2024 22:26-0400 SaO2% (BldA) [Mass fraction] 97 % [facility] 06-10-2024 22:26-0400 Systolic blood pressure 144 mm[Hg] [facility] 01-28-2024 13:37-0500 Body height 180.3 cm Christy Oscar NP Work Phone: [facility] 01-28-2024 13:37-0500 Body mass index (BMI) [Ratio] 27.06 kg/m2 Christy Shital COLD TYPE COMPOSING MACHINE OPERATOR - TRACK WORKER Work Phone: [facility] 01-28-2024 13:37-0500 Body temperature 98.4 [degF] Christy Shital COLD TYPE COMPOSING MACHINE OPERATOR - TRACK WORKER Work Phone: [facility] 01-28-2024 13:37-0500 Body weight 88 kg Christy Shital COLD TYPE COMPOSING MACHINE OPERATOR - TRACK WORKER Work Phone: [facility] 01-28-2024 13:37-0500 Diastolic blood pressure 75 mm[Hg] Christy Shital COLD TYPE COMPOSING MACHINE OPERATOR - TRACK WORKER Work Phone: [facility] 01-28-2024 13:37-0500 Heart rate 90 /min Christy Shital COLD TYPE COMPOSING MACHINE OPERATOR - TRACK WORKER Work Phone: [facility] 01-28-2024 13:37-0500 Respiratory rate 17 /min Christy Shital COLD TYPE COMPOSING MACHINE OPERATOR - TRACK WORKER Work Phone: [facility] 01-28-2024 13:37-0500 SaO2% (BldA) [Mass fraction] 98 % Christy Shital COLD TYPE COMPOSING MACHINE OPERATOR - TRACK WORKER Work Phone: [facility] 01-28-2024 13:37-0500 Systolic blood pressure 117 mm[Hg] Christy Shital COLD TYPE COMPOSING MACHINE OPERATOR - TRACK WORKER Work Phone: [facility] 06-20-2023 19:15-0400 Body temperature 97.88 [degF] OLIVIER VASQUES COLD TYPE COMPOSING MACHINE OPERATOR-[employer] [facility] 06-20-2023 19:15-0400 Diastolic Blood Pressure Non-Invasive 90 mm[Hg] OLIVIER VASQUES COLD TYPE COMPOSING MACHINE OPERATOR-[employer] [facility] 06-20-2023 19:15-0400 Heart rate 87 /min OLIVIER VASQUES COLD TYPE COMPOSING MACHINE OPERATOR-[employer] [facility] 06-20-2023 19:15-0400 Reason For Taking VItal Signs OLIVIER VASQUES COLD TYPE COMPOSING MACHINE OPERATOR-[employer] [facility] 06-20-2023 19:15-0400 Respiratory rate 16 /min OLIVIER VASQUES COLD TYPE COMPOSING MACHINE OPERATOR-[employer] [facility] 06-20-2023 19:15-0400 Systolic Blood Pressure Non-Invasive 144 mm[Hg] OLIVIER VASQUES COLD TYPE COMPOSING MACHINE OPERATOR-[employer] [facility] 06-20-2023 17:05-0400 Body temperature 97.88 [degF] OLIVIER VASQUES COLD TYPE COMPOSING MACHINE OPERATOR-[employer] [facility] 06-20-2023 17:05-0400 Diastolic Blood Pressure Non-Invasive 87 mm[Hg] OLIVIER VASQUES COLD TYPE COMPOSING MACHINE OPERATOR-[employer] [facility] 06-20-2023 17:05-0400 Heart rate 93 /min OLIVIER VASQUES COLD TYPE COMPOSING MACHINE OPERATOR-[employer] [facility] 06-20-2023 17:05-0400 Reason For Taking VItal Signs OLIVIER VASQUES COLD TYPE COMPOSING MACHINE OPERATOR-[employer] [facility] 06-20-2023 17:05-0400 Respiratory rate 14 /min OLIVIER VASQUES COLD TYPE COMPOSING MACHINE OPERATOR-[employer] [facility] 06-20-2023 17:05-0400 Systolic Blood Pressure Non-Invasive 134 mm[Hg] OLIVIER VASQUES COLD TYPE COMPOSING MACHINE OPERATOR-[employer] [facility] 06-20-2023 14:30-0400 Diastolic Blood Pressure Non-Invasive 93 mm[Hg] OLIVIER VASQUES COLD TYPE COMPOSING MACHINE OPERATOR-[employer] [facility] 06-20-2023 14:30-0400 Systolic Blood Pressure Non-Invasive 138 mm[Hg] OLIVIER VASQUES COLD TYPE COMPOSING MACHINE OPERATOR-[employer] [facility] 06-20-2023 14:24-0400 Body temperature 97.52 [degF] OLIVIER VASQUES COLD TYPE COMPOSING MACHINE OPERATOR-[employer] [facility] 06-20-2023 14:24-0400 Heart rate 80 /min OLIVIER VASQUES COLD TYPE COMPOSING MACHINE OPERATOR-[employer] [facility] 06-20-2023 14:24-0400 Reason For Taking VItal Signs OLIVIER VASQUES COLD TYPE COMPOSING MACHINE OPERATOR-[employer] [facility] 06-20-2023 14:24-0400 Respiratory rate 14 /min OLIVIER VASQUES COLD TYPE COMPOSING MACHINE OPERATOR-[employer] [facility] 06-20-2023 05:41-0400 Body height 180.3 cm OLIVIER VASQUES COLD TYPE COMPOSING MACHINE OPERATOR-[employer] [facility] 06-20-2023 05:41-0400 Body weight 95.3 kg OLIVIER VASQUES COLD TYPE COMPOSING MACHINE OPERATOR-[employer] [facility] 06-20-2023 05:41-0400 Body weight 29.32 kg/m2 OLIVIER VASQUES COLD TYPE COMPOSING MACHINE OPERATOR-[employer] [facility] 06-20-2023 05:35-0400 Blood Pressure Location OLIVIER VASQUES COLD TYPE COMPOSING MACHINE OPERATOR-[employer] [facility] 06-20-2023 04:49-0400 Blood Pressure Location OLIVIER VASQUES COLD TYPE COMPOSING MACHINE OPERATOR-[employer] [facility] 06-20-2023 04:49-0400 Blood Pressure Method OLIVIER VASQUES COLD TYPE COMPOSING MACHINE OPERATOR-[employer] [facility] 06-20-2023 04:49-0400 Heart rate 80 /min OLIVIER VASQUES COLD TYPE COMPOSING MACHINE OPERATOR-[employer] [facility] 06-20-2023 04:18-0400 Blood Pressure Location OLIVIER VASQUES COLD TYPE COMPOSING MACHINE OPERATOR-[employer] [facility] 06-20-2023 04:18-0400 Blood Pressure Method OLIVIER VASQUES COLD TYPE COMPOSING MACHINE OPERATOR-[employer] [facility] 06-20-2023 04:18-0400 Heart rate 87 /min OLIVIER PROMISEADI COLD TYPE COMPOSING MACHINE OPERATOR-[employer] [facility] 06-20-2023 03:04-0400 Blood Pressure Method OLIVIER VASQUES COLD TYPE COMPOSING MACHINE OPERATOR-[employer] [facility] 06-20-2023 03:04-0400 Heart rate 107 /min OLIVIER PROMISEADI COLD TYPE COMPOSING MACHINE OPERATOR-[employer] [facility] 06-20-2023 02:15-0400 Body height 180.3 cm OLIVIER VASQUES COLD TYPE COMPOSING MACHINE OPERATOR-[employer] [facility] 06-20-2023 02:15-0400 Body weight 95 kg OLIVIER VASQUES COLD TYPE COMPOSING MACHINE OPERATOR-[employer] [facility] 06-20-2023 00:48-0400 Body temperature 97.4 [degF] No Primary Care Physician [facility] 06-20-2023 00:48-0400 Diastolic blood pressure 85 mm[Hg] No Primary Care Physician [facility] 06-20-2023 00:48-0400 Heart rate 68 /min No Primary Care Physician [facility] 06-20-2023 00:48-0400 Respiratory rate 16 /min No Primary Care Physician [facility] 06-20-2023 00:48-0400 SaO2% (BldA) [Mass fraction] 100 % No Primary Care Physician [facility] 06-20-2023 00:48-0400 Systolic blood pressure 151 mm[Hg] No Primary Care Physician [facility] 06-19-2023 20:58-0400 Body height 180.34 cm No Primary Care Physician [facility] 06-19-2023 20:58-0400 Body mass index (BMI) [Ratio] 29 kg/m2 No Primary Care Physician [facility] 06-19-2023 20:58-0400 Body weight 94.46 kg No Primary Care Physician [facility] 05-01-2023 13:42-0400 Body temperature 97.4 [degF] No Primary Care Physician [facility] 05-01-2023 13:42-0400 Diastolic blood pressure 78 mm[Hg] No Primary Care Physician [facility] 05-01-2023 13:42-0400 Heart rate 55 /min No Primary Care Physician [facility] 05-01-2023 13:42-0400 Respiratory rate 17 /min No Primary Care Physician [facility] 05-01-2023 13:42-0400 SaO2% (BldA) [Mass fraction] 98 % No Primary Care Physician [facility] 05-01-2023 13:42-0400 Systolic blood pressure 138 mm[Hg] No Primary Care Physician [facility] 05-01-2023 06:45-0400 Body height 180.34 cm No Primary Care Physician [facility] 05-01-2023 06:45-0400 Body mass index (BMI) [Ratio] 28 kg/m2 No Primary Care Physician [facility] 05-01-2023 06:45-0400 Body weight 91.4 kg No Primary Care Physician [facility] 05-01-2023 05:52-0400 Body temperature 97.1 [degF] No Primary Care Physician [facility] 05-01-2023 05:52-0400 Diastolic blood pressure 84 mm[Hg] No Primary Care Physician [facility] 05-01-2023 05:52-0400 Heart rate 96 /min No Primary Care Physician [facility] 05-01-2023 05:52-0400 Respiratory rate 14 /min No Primary Care Physician [facility] 05-01-2023 05:52-0400 SaO2% (BldA) [Mass fraction] 99 % No Primary Care Physician [facility] 05-01-2023 05:52-0400 Systolic blood pressure 124 mm[Hg] No Primary Care Physician [facility] 05-01-2023 05:05-0400 Body height 180.34 cm No Primary Care Physician [facility] 03-23-2023 10:40-0500 Body temperature 98.3 [degF] No Primary Care Physician [facility] 03-23-2023 10:40-0500 Diastolic blood pressure 84 mm[Hg] No Primary Care Physician [facility] 03-23-2023 10:40-0500 Heart rate 87 /min No Primary Care Physician [facility] 03-23-2023 10:40-0500 Respiratory rate 16 /min No Primary Care Physician [facility] 03-23-2023 10:40-0500 SaO2% (BldA) [Mass fraction] 96 % No Primary Care Physician [facility] 03-23-2023 10:40-0500 Systolic blood pressure 133 mm[Hg] No Primary Care Physician [facility] 03-23-2023 05:34-0500 Body temperature 98.3 [degF] No Primary Care Physician [facility] 03-23-2023 05:34-0500 Diastolic blood pressure 58 mm[Hg] No Primary Care Physician [facility] 03-23-2023 05:34-0500 Heart rate 86 /min No Primary Care Physician [facility] 03-23-2023 05:34-0500 Respiratory rate 17 /min No Primary Care Physician [facility] 03-23-2023 05:34-0500 SaO2% (BldA) [Mass fraction] 98 % No Primary Care Physician [facility] 03-23-2023 05:34-0500 Systolic blood pressure 113 mm[Hg] No Primary Care Physician [facility] 03-23-2023 01:01-0500 Body height 180.34 cm No Primary Care Physician [facility] 03-23-2023 01:01-0500 Body mass index (BMI) [Ratio] 27.6 kg/m2 No Primary Care Physician [facility] 03-23-2023 01:01-0500 Body weight 89.81 kg No Primary Care Physician [facility] 03-22-2023 22:04-0500 Body height 180.34 cm No Primary Care Physician [facility] 03-22-2023 22:04-0500 Body mass index (BMI) [Ratio] 27.6 kg/m2 No Primary Care Physician [facility] 03-22-2023 22:04-0500 Body temperature 97.5 [degF] No Primary Care Physician [facility] 03-22-2023 22:04-0500 Body weight 89.81 kg No Primary Care Physician [facility] 03-22-2023 22:04-0500 Diastolic blood pressure 86 mm[Hg] No Primary Care Physician [facility] 03-22-2023 22:04-0500 Heart rate 108 /min No Primary Care Physician [facility] 03-22-2023 22:04-0500 Respiratory rate 18 /min No Primary Care Physician [facility] 03-22-2023 22:04-0500 SaO2% (BldA) [Mass fraction] 96 % No Primary Care Physician [facility] 03-22-2023 22:04-0500 Systolic blood pressure 135 mm[Hg] No Primary Care Physician [facility] 08-07-2022 08:32-0400 Body temperature 97.9 [degF] Dr. Fior Ridley Work Phone: 8(828)969-132428 [place] [address] 08-07-2022 08:32-0400 Diastolic blood pressure 63 mm[Hg] Dr. Fior Ridley Work Phone: 5(760)254-579828 [place] [address] 08-07-2022 08:32-0400 Heart rate 81 /min Dr. Fior Ridley Work Phone: 2(634)493-488428 [place] [address] 08-07-2022 08:32-0400 Respiratory rate 18 /min Dr. Fior Ridley Work Phone: [facility] 08-07-2022 08:32-0400 SaO2% (BldA) [Mass fraction] 99 % Dr. Fior Ridley Work Phone: [facility] 08-07-2022 08:32-0400 Systolic blood pressure 125 mm[Hg] Dr. Fior Ridley Work Phone: [facility] 08-05-2022 18:27-0400 Body height 180.[address] Fior Ridley Work Phone: 4(706)616-184536 [place] [address] 08-05-2022 18:27-0400 Body mass index (BMI) [Ratio] 24.4 kg/m2 Dr. Fior Ridley Work Phone: 1(524)427-209436 [place] [address] 08-05-2022 18:27-0400 Body weight 79.[address] iFor Ridley Work Phone: 2(293)135-539136 [place] [address] 08-05-2022 17:22-0400 Respiratory rate 18 /min Dr. Fior Ridley Work Phone: 5(775)931-649636 [place] [address] 08-05-2022 17:11-0400 Body temperature 97.7 [degF] Dr. Fior Ridley Work Phone: 8(059)860-241136 [place] [address] 08-05-2022 17:11-0400 Diastolic blood pressure 68 mm[Hg] Dr. Fior Ridley Work Phone: 3(231)178-422836 [place] [address] 08-05-2022 17:11-0400 Heart rate 81 /min Dr. Fior Ridley Work Phone: 0(032)455-717836 [place] [address] 08-05-2022 17:11-0400 SaO2% (BldA) [Mass fraction] 97 % Dr. Fior Ridley Work Phone: 5(648)666-572836 [place] [address] 08-05-2022 17:11-0400 Systolic blood pressure 124 mm[Hg] Dr. Fior Ridley Work Phone: 2(382)760-056736 [place] [address] 08-05-2022 15:22-0400 Body height 180.[address] Fior Ridley Work Phone: 8(659)277-714236 [place] [address] 08-05-2022 15:22-0400 Body mass index (BMI) [Ratio] 27.1 kg/m2 Dr. Fior Ridley Work Phone: 5(170)412-106336 [place] [address] 08-05-2022 15:22-0400 Body weight 88.[address] Fior Ridley Work Phone: [facility] Encounters Encounter Date Encounter Type Care Provider Facility Start: 10-18-2024 End: 10-18-2024 Emergency department patient visit No Primary Care Physician -Emergency Department Work Phone: Start: 10-12-2024 End: 10-14-2024 ambulatory PHYSICIAN NO [facility] Start: 10-12-2024 End: 10-14-2024 Evaluation and management of inpatient Demetrius Wilder MD Work Phone: [facility] Rapid Diagnosis Start: 10-12-2024 End: 10-12-2024 Emergency department patient visit CORONA GUERRERO II [facility] Start: 10-08-2024 End: 10-11-2024 Evaluation and management of inpatient Corona Guerrero MD Work Phone: [facility] Start: 10-04-2024 End: 10-05-2024 Evaluation and management of inpatient Dawson Plascencia DO Work Phone: [facility] Start: 10-02-2024 End: 10-06-2024 Emergency department patient visit PHYSICIAN NO [facility] Start: 10-02-2024 End: 10-04-2024 Evaluation and management of inpatient Geoff Cadena DO Work Phone: [facility] Start: 10-02-2024 Non-patient / Non-visit Dr. Rachel martinez MD -[facility] Work Phone: Start: 10-02-2024 End: 10-02-2024 Emergency department patient visit No Primary Care Physician -Emergency Department Work Phone: Start: 10-01-2024 Non-patient / Non-visit Dr. Jacquie Beckwith MD -[facility] Work Phone: Start: 10-01-2024 ambulatory No Primary Car e Physician [facility] [place]: 10-01-2024 End: 10-01-2024 Evaluation and management of inpatient Dr. Rachel Stephen MD -[facility] Work Phone: Start: 09-30-2024 End: 10-01-2024 Emergency department patient visit SHWETA RAYA [facility] Start: 09-29-2024 End: 09-30-2024 Emergency department patient visit RACHEL PULIDO [facility] Start: 09-27-2024 End: 09-28-2024 [facility] Start: 06-24-2024 End: 06-24-2024 Emergency department patient visit [facility] Start: 06-11-2024 End: 06-11-2024 Emergency department patient visit [facility] Comment on above: Chest pain, unspecif ied type (Primary Dx); Methamphetamine abuse (HCC); Alcohol abuse Start: 06-10-2024 End: 06-10-2024 Emergency department patient visit [facility] Start: 01-28-2024 End: 01-28-2024 Office outpatient visit 15 minutes Christy Oscar NP Work Phone: [facility] Comment on above: Influenza A (Primary Dx); URI with cough and congestion; Generalized body aches Start: 01-28-2024 End: 01-28-2024 ambulatory [facility] Start: 07-25-2023 End: 07-25-2023 Emergency department patient visit Physician Shelby [facility] Start: 06-20-2023 End: 06-20-2023 Emergency department patient visit KATYA GRIFFITH MD Facility:[facility] Start: 06-20-2023 End: 06-20-2023 Observation OLIVIER PRINCE [facility] Start: 06-19-2023 End: 06-20-2023 Emergency department patient visit No Primary Care Physician [facility]-Emergency Department Work Phone: Start: 05-01-2023 End: 05-01-2023 Evaluation and management of inpatient No Primary Care Physician [facility]-Intensive Care Unit Work Phone: Start: 03-23-2023 Non-patient / Non-visit No [facility] Physician [facility] Work Phone: Start: 03-23-2023 End: 03-23-2023 Evaluation and management of inpatient No Primary Care Physician [facility] Work Phone: Start: 08-07-2022 Non-patient / Non-visit Dr. Franklin Ridley Work Phone: [facility] Start: 08-06-2022 Non-patient / Non-visit Dr. Franklin Ridley Work Phone: [facility] Start: 08-05-2022 Non-patient / Non-visit Dr. Franklin Ridley Work Phone: [facility] Start: 08-05-2022 End: 08-07-2022 Evaluation and management of inpatient Dr. Fior Ridley Work Phone: [facility] Procedures Date Procedure Procedure Detail Performing Clinician Start: 10-14-2024 Creatinine blood Daisykhadijah Hampton [employer] Work Phone: Start: 10-13-2024 EMS RUN SHEET Generic E ms Provider Start: 10-13-2024 Basic metabolic pane l calcium total Akilah Frenchis [employer] Work Phone: Start: 10-12-2024 Blood ethanol measurement Akilah Frenchis [employer] Work Phone: Start: 10-12-2024 Basic metabolic pane l calcium total Demetrius Wilder MD Work Phone: Start: 10-12-2024 Complete blood count with white cell differential, manual Demetrius Wilder MD Work Phone: Start: 10-12-2024 Culture bacterial bl ood aerobic w/id isolates Demetrius Wilder MD Work Phone: Start: 10-09-2024 Basic metabolic pane l calcium total Yuki Saldaña PA-C Work Phone: Start: 10-08-2024 Drug tst prsmv instr mnt chem analyzers pr date Kyle Unger PA-C Work Phone: Start: 10-08-2024 Ct maxillofacial w/c ontrast material Kyle Last Unger PA-C Work Phone: Start: 10-08-2024 Blood ethanol measurement Holli Camargo Start: 10-08-2024 Complete blood count with white cell differential, manual Kyle Last Unger PA-C Work Phone: Start: 10-08-2024 Comprehensive metabo lic panel Tejal Plasencia Mike WATTC Work Phone: Start: 10-08-2024 Hepatic function panel Tejal Mckeon KATHERYN-C Work Phone: Start: 10-05-2024 Basic metabolic pane l calcium total Christen Veladane CAMPA-C Work Phone: Start: 10-05-2024 Drug tst prsmv instr mnt chem analyzers pr date Renae Piña [employer] Work Phone: Start: 10-04-2024 Blood count complete automated Renae Piña [employer] Work Phone: Start: 10-04-2024 Blood ethanol measurement Renae Patton Wang [employer] Work Phone: Start: 10-04-2024 Blood ethanol measurement Shellie Herrmann DO Work Phone: Start: 10-03-2024 Drug tst prsmv instr mnt chem analyzers pr date Leonel Colón Start: 10-03-2024 Basic metabolic pane l calcium total Leonel Colón Start: 10-02-2024 Blood count complete automated Holli Amaya [employer] Work Phone: Start: 10-02-2024 Blood group typing [...] 10-02-2024 Basic metabolic pane l calcium total Holli Amaya [employer] Work Phone: Start: 10-02-2024 Blood ethanol measurement [...] Comment: URIN ALYSIS Performed By: #### [id number] #### [place] [id number] Start: 09-28-2024 Urinalysis SHWETA Gibson Comment on above: Result Comment: URIN ALYSIS Performed By: #### 2 [id number] ####[place] [address] Start: 06-11-2024 Basic metabolic pane l calcium total Easton Hesham COLD TYPE COMPOSING MACHINE OPERATOR - AXMINSTER RUG SETTER Work Phone: Start: 06-11-2024 Drug test def 1-7 classes Eastonmario Dahl COLD TYPE COMPOSING MACHINE OPERATOR - AXMINSTER RUG SETTER Work Phone: Start: 06-11-2024 Radiologic exam ches t 2 views Easton Hesham COLD TYPE COMPOSING MACHINE OPERATOR - AXMINSTER RUG SETTER Work Phone: Start: 06-11-2024 Ecg routine ecg w/le ast 12 lds trcg only w/o i&r Arnold D Olivera MD Work Phone: Start: 01-28-2024 Sars-cov-2 detection by dna/rna Christy Retana COLD TYPE COMPOSING MACHINE OPERATOR - TRACK WORKER Work Phone: Start: 01-28-2024 Infectious agent dna /rna influenza 1st 2 types Christy Shital COLD TYPE COMPOSING MACHINE OPERATOR - TRACK WORKER Work Phone: Start: 06-19-2023 Plain chest X-ray No Pr imary Care Physician Start: 06-19-2023 SARS-CoV-2, Influenz a & RSV (PCR) No Primary Care Physician Plan of Treatment Date Care Activity Detail Author Start: 11-06-2071 RSV Immunization for Adults (1 - 1-dose 75+ series) RSV Immunization for Adults (1 - 1-dose 75+ series) [facility] Start: 2046 Zoster Vaccines (1 of 2) Zoster Vaccines (1 of 2) [facility] Start: 10-28-2024 End: 10-28-2024 Patient encounter procedure 10/28/2024 10:20 AM EDT Office Visit [facility] [address] [place] [address] Discharge Disposition: Home [facility] Start: 10-23-2024 End: 10-23-2024 Follow-up encounter 10/23/2024 10:20 AM EDT Follow-Up [facility] [address] [facility] [address] [place] [address] Anjel Duval PA-C [address] [facility] [address] [place] [address] [facility] Start: 10-20-2024 End: 10-20-2024 Patient encounter procedure 10/20/2024 10:20 AM EDT Office Visit [facility] [address] [place] [address] Discharge Disposition: Home [facility] Start: 10-18-2024 [facility] Start: 10-14-2024 End: 09-03-2025 Incision & drainage abscess simple/single INCISION AND DRAINAGE HEAD/NECK UNK 10/14/2024 10:09 AM EDT [facility] Start: 10-14-2024 End: 10-14-2024 Removal implant deep REMOVAL ARCHBAR UNK 10/14/2024 10:09 AM EDT [facility] Start: 10-13-2024 End: 10-13-2024 Admission to same day surgery center 10/13/2024 2:45 PM EDT - 10/13/2024 3:35 PM EDT Surgery [facility] [address] [place] [address] Marilou Vasquez MD [address] [place] [address] MAXILLOMANDIBULAR FIXATION SCREW REMOVAL [facility] Comment on above: MAXILLOMANDIBULAR FIXATION SCREW REMOVAL Start: 10-13-2024 End: 10-13-2024 Incision & drainage abscess simple/single INCISION AND DRAINAGE HEAD/NECK K 10/13/2024 2:45 PM EDT [facility] Start: 10-13-2024 End: 10-13-2024 Removal implant deep REMOVAL ARCHBAR [facility] 10/13/2024 2:45 PM EDT [facility] Start: 10-12-2024 Influenza vaccination Influenza Vaccine (Season Ended) [facility] Start: 10-04-2024 End: 10-04-2024 Open tx comp fx malar w/internal fx&mult surg OPEN REDUCTION INTERNAL FIXATION MANDIBLE MAXILLA UNK 10/04/2024 7:25 AM EDT [facility] Start: 10-02-2024 Emergency department visit high/urgent severity EMERGENCY DEPT VISIT MOD MDM [facility] Start: 10-01-2024 Following clinical pathway protocol [facility] Start: 10-01-2024 Admission procedure [facility] Start: 10-01-2024 Assessment of risk of venous thromboembolism [facility] Start: 10-01-2024 Introduction of urinary catheter [facility] Start: 10-01-2024 Notification of physician [facility] Start: 10-01-2024 Oxygen therapy [facility] Start: 10-01-2024 Referral to service [facility] Start: 10-01-2024 Vital signs measurements [facility] Start: 10-01-2024 Provision of activity privileges [facility] Start: 10-01-2024 Verification routine [facility] Start: 10-01-2024 End: 10-01-2024 [facility] Start: 10-01-2024 Consultation [facility] Start: 10-01-2024 Patient discharge [facility] Start: 10-13-2023 COVID-19 Vaccine () COVID-19 Vaccine () [facility] Start: 10-13-2023 Influenza vaccination Influenza Vaccine (#1) [facility] Start: 06-20-2023 [facility] Start: 05-01-2023 Following clinical pathway protocol [facility] Start: 05-01-2023 Assessment of risk of venous thromboembolism [facility] Start: 05-01-2023 Inhalation therapy procedure [facility] Start: 05-01-2023 Introduction of urinary catheter [facility] Start: 05-01-2023 Notification of physician [facility] Start: 05-01-2023 Oxygen therapy [facility] Start: 05-01-2023 Provision of activity privileges [facility] Start: 05-01-2023 Referral to service [facility] Start: 05-01-2023 Vital signs measurements [facility] Start: 05-01-2023 [facility] Start: 05-01-2023 Verification routine [facility] Start: 05-01-2023 Admission procedure [facility] Start: 05-01-2023 Hospital admission, emergency, from emergency room, medical nature [facility] Start: 05-01-2023 Patient discharge [facility] Start: 05-01-2023 [facility] Start: 03-23-2023 Patient discharge [facility] Start: 03-23-2023 Following clinical pathway protocol [facility] Start: 03-23-2023 Assessment of risk of venous thromboembolism [facility] Start: 03-23-2023 Notification of physician [facility] Start: 03-23-2023 Provision of activity privileges [facility] Start: 03-23-2023 Vital signs measurements [facility] Start: 03-23-2023 [facility] Start: 03-23-2023 Gamma glutamyl transferase measurement [facility] Start: 03-23-2023 Prothrombin time [facility] Start: 03-23-2023 Admission procedure [facility] Start: 08-07-2022 Patient discharge [facility] Start: 08-05-2022 Following clinical pathway protocol [facility] Start: 08-05-2022 Ambulation without limitation [facility] Start: 08-05-2022 Assessment of risk of venous thromboembolism [facility] Start: 08-05-2022 Catheterization of vein [facility] Start: 08-05-2022 Insertion of catheter into peripheral vein [facility] Start: 08-05-2022 Providing care according to standard [facility] Start: 08-05-2022 Referral to service [facility] Start: 08-05-2022 [facility] Start: 08-05-2022 Verification routine [facility] Start: 08-05-2022 Admission procedure [facility] Start: 08-05-2022 [facility] Start: 11-06-2015 DTaP/Tdap/Td Vaccines (1 - Tdap) DTaP/Tdap/Td Vaccines (1 - Tdap) [facility] Start: 11-06-2015 Hepatitis B Vaccines (1 of 3 - 19+ 3-dose series) Hepatitis B Vaccines (1 of 3 - 19+ 3-dose series) [facility] Start: 11-06-2015 Pneumococcal Vaccine: Pediatrics (0 to 5 Years) and At-Risk Patients (6 to 49 Years) (1 of 2 - PCV) Pneumococcal Vaccine: Pediatrics (0 to 5 Years) and At-Risk Patients (6 to 49 Years) (1 of 2 - PCV) [facility] Start: 2014 Hepatitis C screening Hepatitis C Screening [facility] Start: 2009 Varicella vaccination Varicella Vaccines (1 of 2 - 13+ 2-dose series) [facility] Start: 2008 Depression Screening Depression Screening [facility] Start: 1997 MMR Vaccines (1 of 1 - Standard series) MMR Vaccines (1 of 1 - Standard series) [facility] Start: 1996 HIV screening HIV Screening [facility] Bacteria identified in Blood by Culture Blood Culture Aerobic/Anaerobic Microbiology [facility] 10/12/2024 4:45 PM EDT [facility] Work Phone: Gamma glutamyl transferase measurement [facility] INR in Blood by Coagulation assay [facility] Patient Education [facility] Work Phone: Patient referral [facility] Work Phone: End: 10-02-2024 US Abdomen limited [facility] Work Phone: Comment on above: Once for 1 Occurrences starting 10/03/19 until 10/02/2024 Immunizations Immunization Date Immunization Notes Care Provider Fa cility 10-02-2024 tetanus toxoid, redu anshul diphtheria toxoid, and acellular pertussis vaccine, adsorbed No Primary Care Physician [facility] Payers Date Payer Category Payer Self-pay 2023 Medicaid (Managed Care) [employer] [facility] [id number] 2023 Medicaid HMO [employer] [facility] [id number] 2023 Private Health Insurance [id number] 1996 Unknown [id number]. 627 1996 Unknown [id number] 2.16.840.1.984672.3.579.2. 204 1996 Unknown [id number] 2.16.840.1.552367.3.579.2. 651 1996 Unknown [id number] 2.16.840.1.294620.3.579.2. 651 1996 Unknown [id number] 2.16.840.1.028640.3.579.2. 651 1996 Unknown [id number] 2.16.840.1.268968.3.579.2. 902 1996 Unknown [id number] 2.16.840.1.163158.3.579.2. 902 1996 Unknown [id number] 2.16.840.1.518602.3.579.2. 902 1996 Unknown [id number] 2.16.840.1.038787.3.579.2. 902 1996 Unknown [id number] 2.16.840.1.225157.3.579.2. 902 1996 Unknown [id number] 2.16.840.1.671768.3.579.2. 902 Unknown [id number] 2.16.840.1.922940.3.579.2. 462 Unknown [id number] 2.16.840.1.071426.3.579.2. 462 Unknown [id number] 2.16.840.1.600859.3.579.2. 462 Unknown [id number] 2.16.840.1.132058.3.579.2. 462 Unknown [id number] 2.16.840.1.977030.3.579.2. 462 Social History Date Type Detail Facility Start: 08-05-2022 End: 06-19-2023 Tobacco smoking status NHIS Unknown if ever smoked [facility] Start: 1995 Sex Assigned At Male [facility] Start: 06-20-2023 Tobacco smoking status Light tobacco smoker (finding) [facility] Start: 1995 Sex assigned at Not on file [facility] Start: 01-28-2024 Sex Male (finding) [facility] Start: 06-11-2024 End: 10-12-2024 Gender identity Not on file [facility] Start: 06-11-2024 End: 10-12-2024 History of Social function [facility] How often to you hav e a drink containing alcohol? 4 or more times a week [facility] How many standard dr inks containing alcohol do you have on a typical day? 7 to 9 [facility] How often do you hav e 6 or more drinks on 1 occasion? Daily or almost daily [facility] Start: 10-01-2024 End: 10-18-2024 Tobacco smoking status NHIS Smokes tobacco daily (finding) [facility] History of tobacco use Cigarette Smoker [facility] Start: 10-02-2024 Tobacco use and exposure Smokeless tobacco non-user [facility] Start: 10-04-2024 End: 10-14-2024 Alcoholic beverage intake Current drinker of alcohol (finding) [facility] Has the [employer], or [employer] threatened to shut off services in your home in past 12Mo Yes [facility] Within the last year , have you been afraid of your partner or ex-partner? No [facility] (I/We) worried [facility] (my/our) food would run out before (I/we) got money to buy more. Often true [facility] In the past 12 month s, has lack of transportation kept you from medical appointments or from getting medications? Yes [facility] Start: 10-02-2024 Alcohol Comment 15-20 tall boys daily, last drink yesterday - 10/02/24 [facility] Start: 10-12-2024 Alcohol Comment 5 tall boys daily, last drink today [facility] Medical Equipment Procedure Code Equipment Code Equipment Origin al Text Equipment Identifier Dates Sealant 5ml Hemostatic Matrix Fast Prep Floseal W/ Recothrom - [id number] Start: 10-04-2024 Powder 3gm Hemostatic Perclot 9cm Std Tip - [id number] Start: 10-04-2024 Screw 2 X 12mm M mf Self-Drill - [id number] Start: 10-04-2024 Screw 2 X 8mm Mm f Self-Drill - [id number] Start: 10-04-2024 Screw 2 X 12mm M mf Self-Drill - [id number] Start: 10-14-2024 Goals Date Patient Goal Desired Activity /State Functional Status Date Assessment Result Facility 10-01-2024 Functional status Up [facility] Work Phone: 06-20-2023 Functional Status Door open, Room check performed [facility] 06-20-2023 Functional Status [facility] 06-20-2023 Functional Status Ambulation in Room [facility] 06-20-2023 Functional Status [facility] 06-20-2023 Functional Status [facility] 06-20-2023 Functional Status [facility] 06-20-2023 Functional Status [facility] 06-20-2023 Functional Status Environmental Safety Implemented Adequate room lighting, Bed in low position, Call device within reach [facility] 05-01-2023 Functional status Patient Activity Up [facility] Work Phone: 03-23-2023 Functional status Activity Ability Indepe ndent [facility] Work Phone: 08-07-2022 Functional status Up [facility] Work Phone: Mental Status Date Assessment Result Facility 10-18-2024 Cognitive function Level Of Cons ciousness Awake;Alert;Appropriate;Follow s Commands [facility] Work Phone: 08-22-2025 Cognitive function Voice/Name [facility] Work Phone: 10-01-2024 Cognitive function Voice/Name [facility] Work Phone: 06-20-2023 Mental Status Orientation Oriented x 4 [facility] 06-20-2023 Mental Status [facility] 06-20-2023 Mental Status [facility] 06-19-2023 Cognitive function Level Of Cons ciousness Awake;Alert;Appropriate [facility] Work Phone: 03-23-2023 Cognitive function Appropriate;Cooperativ e [facility] Work Phone: 08-07-2022 Cognitive function Voice/Name;Touch/Shaki ng [facility] Work Phone: Clinical Notes 08-05-2022 to 10-18-2024 Note Date & Type Note Facility 10-18-2024 Discharge summary [facility] 10-18-2024 Discharge summary Note Date/Time October 18, 2024 3:25pm [facility] Medical Records Department [address] [place] [address] Emergency Department Summary 10/18/24 MR#: [id number] Acct: [id number] Name: KADE GONZALEZ Rep #:[id number] : 1995 28 From: Bairon Clarke PCP: Care Physician,No Primary Status :PRE ER Location: ED HPI History of Present Illness Chief Complaint: Other, Pain/Inj PFSH PFSH Medical History Substance abuse Depression Smoker Anxiety and depression Alcohol dependence Asthma Migraines Polysubstance abuse Tobacco abuse Alcohol abuse Home Medications ?Medication ?Instructions ?Recorded ?Last Taken ?Type oxycodone 5 mg tablet 5 mg PO Q6H PRN pain 1 day # 4 tabs 10/18/24 Unknown Rx Allergy/AdvReac Type Severity Reaction Status Date / Time No Known Allergies Allergy Verified 10/18/24 15:03 Family History Uncle Alcohol abuse Paternal uncles. Grandfather Alcohol abuse Mother No problems noted. Father No problems noted. Surgical History No history of previous surgery Social History household members: none Smoking Status: Current every day smoker tobacco type: cigarettes and e-cigarettes alcohol intake: current details: 10 24 ounce beers daily and hard liquor shots substance use type: crack/cocaine and amphetamines EXAM Physical Exam Const Vital Signs: 10/18/24 15:03 10/18/24 15:22 Temperature 98.4 F Temperature Source Oral Pulse Rate 112 H Respiratory Rate 18 Respiratory Effort Normal Respiratory Pattern Normal Blood Pressure 122/63 H Blood Pressure Mean 82 Pulse Ox 97 Oxygen Delivery Method Room Air MDM MDM [facility] Narrative Medical decision making narrative: HISTORY OF PRESENT ILLNESS: Chief complaint: Jaw pain 28-year-old male history of open mandibular fracture, polysubstance abuse, alcohol abuse, tobacco abuse presents with jaw pain. He states REVIEW OF SYSTEMS: Pertinent positives: Jaw pain Pertinent negatives: Fevers chills vomit PHYSICAL EXAM: Nursing triage notes reviewed, Vital signs reviewed Constitutional: please see mdm HENT: MMM, surgical scars noted over left mandible and right mandible. These are clean dry intact there is no redness, fluctuance induration or drainage. Eyes: Pupils equal round and reactive to light, Extraocular muscles intact Neck: No stridor, no JVD, full neck ROM Lungs: Clear to auscultation, No wheezing or rales. No increased work of breathing, no conversational dyspnea, no accessory muscle use, no nasal flaring. No respiratory distress noted Heart: Regular rate and rhythm, No murmurs, No rubs and No gallops, 2+ distal pulses (radial, femoral, posterior tibial) in all extremities Skin: Surgical scars as above MEDICAL DECISION MAKING: Chief Complaint: please see HPI External records reviewed: Reviewed prior ED visit. Reviewed clinisync. Reviewed prior imaging studies: Reviewed CT scan of the face from 10/02/2024 which showed a right mandibular fracture as well as a left mandibular fracture. Factors affecting care: As per HPI Social determinants of health: Polysubstance abuse History obtained from others: none Consults: none [facility] Narrative: Patient was initially hemodynamically stable, afebrile and nontoxic-appearing. Exam with well-healing surgical scars I was concerned about medication diversion versus medication abuse given his history polysubstance use however he does have a mandibular fracture which is very painful. Provided narcotic pain medicine here for home-going (oxycodone 5 mg for 4 doses). Encouraged Tylenol and ibuprofen as well. Encourage close follow-up with his operating surgeon for additional pain control measures. The patient and/or family, caregivers express understanding. The patient and/orfamily, caregivers agrees with the plan. Shared decision making: I will have a discussion with the patient and or visitors regarding risk/benefits of further testing or admission. They will be made aware of of the risk/benefits inherent in this decision they will be given the opportunity to voice understanding. Total critical care time today provided was at least 0 minutes. This excludes separately billable procedures. Critical care time (if documented) is secondary to the patient having high probability of clinically significant/life threatening deterioration in the patient's condition which required my urgent intervention. Impression: 1. Mandibular fracture 2. Jaw pain Dispo: Discharge home This note was generated with Sun Number dictation software. It may contain incorrectwords, spelling, and punctuation that were not noted in review of the chart prior to signing. Discharge Plan Triage Chief Complaint: Other, Pain/Inj ED Provider: Bairon Dee Dx/Rx/DC Orders Clinical Impression: Mandible open fracture Instructions: ED Jaw Fracture Prescriptions: New oxycodone 5 mg tablet 5 mg PO Q6H PRN (Reason: pain) 1 Days Qty: 4 0RF Primary Care Provider: Care Physician,No Primary Referrals: Care Physician,No Primary [Primary Care Provider] - Print Language: Azerbaijani What to do if you have Problems For any increased pain, shortness of breath, bleeding, nausea or vomiting, chestpain, or any unexpected problems, contact your Primary Care Provider. Call [facility] ([phone]) or report to the closest Emergency Room. Call 911 if necessary. 10/18/24 1525 <Electronically signed by Bairon Dee DO> Cosigner Signature (if applicable): CC: No Primary Care Physician ~ Signed [facility] Work Phone: [phone]) 703-253509-03-2025 Plan of care note* Plan of Care - Arnie Akins RN - 10/14/2024 2:54 PM EDT Problem: Actual or potential alteration in health [...] returned? N/a Chart removed from folder? yes [id number] Miscellaneous Notes* Plan of Care - Arnie Akins RN - 10/14/2024 2:54 PM EDT Problem: Actual or potential alteration in health [...] returned? N/a Chart removed from folder? yes * Quick Note - Arnie Akins RN - 10/14/2024 2:52 PM EDT Arrangements by MESSI and NADIA team made, pt able to antoine diet. DC criteria met * Brief Op Note - Beverley Shepherd MD - 10/14/2024 11:03 AM EDT Brief Post Operative Note Patient Name: Kade Gonzalez : 1995 (28 y.o.) Date of Service: 10/14/2024 CSN: [id number] Procedure(s): MAXILLOMANDIBULAR FIXATION SCREW REMOVAL LEFT MANDIBLE INCISION AND DRAINAGE Pre-Operative Diagnoses: * UNK Post-Operative Diagnoses: Surgeons and Role: * Marilou Vasquez MD - Primary Anesthesiologist: Papa Albrecht MD FLOORING INSTALLER: Leia Fernandez CRNA Boring Machine Operator: Lauren Becerra RN Scrub Person Relief: Shani Maria ST Anesthesia Specialist: Devon Cintron P D Driver: Luis Alberto Beckwith Scrub Person Preceptor: Thao Carson ST Operative findings: seroma/hematoma, no abscess, MMF screws removd Intra and immediate post-operative complications: none Type of anesthesia used: General Estimated blood loss: 10 mL Estimated urine output: Specimen(s): * No specimens in log * Implant(s): Implant Name Type Inv. Item Serial No. Paper Reeler Lot No. [id number] No. Used Action SCREW 2 X 12MM MMF SELF-DRILL - [id number] SCREW 2 X 12MM MMF SELF-DRILL CROW [...] NO Beverley Shepherd MD 10/14/2024 11:03 AM * Op Note - Marilou Vasquez MD - 10/14/2024 10:42 AM EDT Kade Gonzalez [id number] 1995 Attending: Marilou Vasquez MD Trailer Driver: Beverley Shepherd MD Pre Procedure Diagnosis: History [...] was marked. The consent was obtained by sc directly. The patient was taken to the [...] not identify any purulence. We irrigated the woundwith Irrisept. We removed screws from the mouth. [...] PACU following the surgery without any issues. * Quick Note - Ashli Mendes RN - 10/13/2024 10:55 PM EDT Patient refusing an IV at this time, states he just doesn't want it right now. Explained to patientthat he will need to have an IV in the morning and was agreeable to get an IV around 3am vitals. * Sign Off Note - Esme Paz CNP - 10/13/2024 3:35 PM EDT Addiction Medicine Sign-Off Consulting Attending: Diagnosis: - Methamphetamine use -Alcohol use disorder, severe, dependence -Alcohol withdrawal syndrome without complication Follow-up/Plan: See [facility] team note for final disposition Medications: Acamprosate 666 mg 3 times daily p.o. x 30 days prescription sent to [facility] to beds Discharge instructions updated with appropriate follow-up. Addiction Medicine service will sign off at this time. Please call [phone] for questions/concerns and we can determine if new consult needs placed for further evaluation. * Assessment & Plan Note - Esme Paz CNP - 10/13/2024 3:33 PM EDT Associated Problem(s): Methamphetamine use (HCC) - Sporadic use over the past 3 months - Last use 10/07 -Educated pt about risks with continued use and education about harm reduction - Recommend IOP level of care or higher, appreciate SUN team assistance in linkage - Encouraged to not share paraphernalia * Assessment & Plan Note - Esme Paz CNP - 10/13/2024 3:32 PM EDT Associated Problem(s): Alcohol withdrawal syndrome without complication [...] of withdrawal (Administer PRN for two or moreof the following: SBP>160, DBP>105,HR>110, tremor, diaphoresis, and active hallucinations ) -Seizure precautions * Assessment & Plan Note - Esme Paz CNP - 10/13/2024 3:27 PM EDT Associated Problem(s): Alcohol use disorder, severe, dependence [...] enhanced absorption and prevention of Wernicke's Encephalopathy * Quick Note - Liza Herzog CNP - 10/13/2024 10:55 AM EDT OR planned for 10/14 AM. NPO at SD * Plan of Care - Arnie Akins RN - 10/13/2024 9:38 AM EDT Problem: Actual or potential alteration in health [...] level of psychosocial functioning Outcome: Partially Met * Tertiary Note - Daisy Hampton CNP - 10/13/2024 9:15 AM EDT DAVID PROGRESS NOTE MECHAN ISM OF INJURY: Remote Trauma LOC (yes/no?): No Anticoagulant / Anti-platelet Rx none Reason/Dx: NA INJURIES: Submandibular fluid collection concerning for abscess SURGERIES/PROCEDURES: Date Operation/Procedure Provider Name ACTIVE MEDICAL PROBLEMS: Polysubstance use Alcohol use disorder INCIDENTAL FINDINGS: None DISCHARGE PLANNING: Pending PRS recs Trauma outpatient follow up TODAY' S ASSESSMENT AND PLAN OF CARE: Remote Trauma: S/p mandibular ORIF and MMF application on 10/04. Presented multiple times to [facility] since with jaw pain, swelling and concern [...] during previous admission. No current s/s of withdrawal.CIWA. Addiction medicine consulted. Polysubstance use: Endorses nicotine dependence, cannabis use, and sporadic methamphetamine use. Addiction medicine consulted. Tertiary examination complete. No additional areas of injury reported by patient or noted on assessment. DISPOSITION - Obs CHIEF COMPLAINT/ HPI / PFSHx / EVENTS OVER LAST 24HRS: Patient resting in bed. Reports pain to his jaw. Otherwise without complaints. Patient denies chestpain, shortness of breath, nausea, vomiting, headache, paraesthesias, [...] 15. Follows commands with extremities x4, equal strength.Pupils equal, round, reactive to light. EOMI. No [...] kg/m ., Estimated Creatinine Clearance: 200.3 mL/min (byC-G formula based on SCr of 0.59 mg/dL).): Lovenox * Plan of Care - Sonia Mcduffie RN - 10/13/2024 3:27 AM EDT Problem: Actual or potential alteration in health [...] level of psychosocial functioning Outcome: Partially Met * Quick Note - Sonia Mcduffie RN - 10/12/2024 11:11 PM EDT Patient oriented to Observation Unit: Yes Patient oriented to room: Yes Plan of care reviewed with patient: yes Extended Emergency Contact Information Primary Emergency Contact: Karmen Montgomery Mobile Relation: Significant Other Secondary Emergency Contact: shani merino Mobile Relation: Mother Father: joseph gonzalez Mobile Primary Care Physician: No, Physician Preferred Pharmacy: N/A Does this match pharmacy listed with PIE MAKER MACHINE: No Plan for discharge reviewed: Yes How will patient get home: Needs a ride Reviewed call light process: Yes AMPAC completed under [facility] Basic Mobility Short Form: Yes 4 eyes completed, documented, & witnessed : Yes Patient on tele? No Tele Number: n/a documented in this [id number] Progress note* Quick Note - Arnie Akins RN - 10/14/2024 2:52 PM EDT Arrangements by MESSI and NADIA team made, pt able to antoine diet. DC criteria met [id number] NoteGRANT TRAUMA and ACUTE CARE SURGERY TRAUMA DISCHARGE [...] home Outpatient PT/OT/ST: PT , OT , MEDICAL CLAIMS REPRESENTATIVE Inpatient Consults: Procedures Consult Plastic Surgery Consult [...] . Do not swallow naloxone 4 mg/actuation [place] Commonly known as: NARCAN Administer 1 spray into one nostril for known or suspected opioid overdose. If patient worsens or does not respond, may repeat in 2-3 minutes. . Where to Get Your Medications These medications were sent to [facility] [address] [place] [address] Hours: 8:30 AM to 5:00 PM Mon-Fri acamprosate 333 mg tablet You can get these medications from any pharmacy Bring a paper prescription for each of these medications amoxicillin-clavulanate 400-57 mg/5 mL suspension Diet: Diet NPO Except: SIPS WITH MEDS Follow-up Appointments / Plans: Marilou Vasquez MD [address] [facility] [address] [place] [address] Follow up in 1 week(s) Call to obtain follow up appointment after discharge Time spent on discharge: > 30 minutes CHIEF COMPLAINT/ HPI / PFSHx / EVENTS OVER LAST 24HRS: Please see today's progress note for CC, ROS, and PE. AUTHENTICATED BY DAISY HAMPTON, ON 10/14/2024 11:44:48[facility] 10-14-2024 Hospital course Narrative* Daisy aHmpton, AXMINSTER RUG SETTER - 10/14/2024 11:43 AM EDT ESTELL MANOR TRAUMA and ACUTE CARE SURGERY TRAUMA DISCHARGE SUMMARY MECHAN ISM OF INJURY: Remote Trauma LOC (yes/no?): No Anticoagulant / Anti-platelet Rx none Reason/Dx: NA INJURIES: Submandibular fluid collection concerning for abscess SURGERIES/PROCEDURES: Date Operation/Procedure Provider Name 10/14 incision and drainage and MMF screw removal Dr. Vasquez ACTIVE MEDICAL PROBLEMS: Polysubstance use Alcohol use disorder INCIDENTAL FINDINGS: None DISCHARGE PLANNING: Pending PRS recs Trauma outpatient follow up TODAY' S ASSESSMENT AND PLAN OF CARE: Please see today's progress note. Okay for discharge with antibiotics post op per plastics. Discharge to home Outpatient PT/OT/ST: PT , OT , MEDICAL CLAIMS REPRESENTATIVE Inpatient Consults: Procedures Consult Plastic Surgery Consult [...] . Do not swallow naloxone 4 mg/actuation [place] Commonly known as: NARCAN Administer 1 spray into one nostril for known or suspected opioid overdose. If patient worsens or does not respond, may repeat in 2-3 minutes. . Where to Get Your Medications These medications were sent to [facility] [address] [place] [address] Hours: 8:30 AM to 5:00 PM Mon-Fri acamprosate 333 mg tablet You can get these medications from any pharmacy Bring a paper prescription for each of these medications amoxicillin-clavulanate 400-57 mg/5 mL suspension Diet: Diet NPO Except: SIPS WITH MEDS Follow-up Appointments / Plans: Marilou Vasquez MD [address] [address] Follow up in 1 week(s) Call to obtain follow up appointment after discharge Time spent on discharge: > 30 minutes CHIEF COMPLAINT/ HPI / PFSHx / EVENTS OVER LAST 24HRS: Please see today's progress note for CC, ROS, and PE. documented in this [id number] NotePlastic Surgery Plan of Care Kade Gonzalez is [...] MD AUTHENTICATED BY BEVERLEY SHEPHERD, ON 10/14/2024 11:05:55[facility] 10-14-2024 Procedure note* Brief Op Note - Beverley Shepherd MD - 10/14/2024 11:03 AM EDT Brief Post Operative Note Patient Name: Kade Gonzalez : 1995 (28 y.o.) Date of Service: 10/14/2024 CSN: [id number] Procedure(s): MAXILLOMANDIBULAR FIXATION SCREW REMOVAL LEFT MANDIBLE INCISION AND DRAINAGE Pre-Operative Diagnoses: * UNK Post-Operative Diagnoses: Surgeons and Role: * Marilou Vasquez MD - Primary Anesthesiologist: Papa Albrecht MD FLOORING INSTALLER: Leia Fernandez CRNA Boring Machine Operator: Lauren Becerra RN Scrub Person Relief: Shani Maria ST Anesthesia Specialist: Devon Cintron P D Driver: Luis Alberto Beckwith Scrub Person Preceptor: Thao Carson ST Operative findings: seroma/hematoma, no abscess, MMF screws removd Intra and immediate post-operative complications: none Type of anesthesia used: General Estimated blood loss: 10 mL Estimated urine output: Specimen(s): * No specimens in log * Implant(s): Implant Name Type Inv. Item Serial No. Paper Reeler Lot No. LRB No. Used Action SCREW 2 X 12MM MMF SELF-DRILL - [id number] SCREW 2 X 12MM MMF SELF-DRILL CROW [...] NO Beverley Shepherd MD 10/14/2024 11:03 AM [id number] History of Present illness Narrative* Beverley Shepherd MD - 10/14/2024 11:03 AM EDT Plastic Surgery Plan of Care Kade Gonzalez [...] follow up 1 week Beverley Shepherd MD * Daisy Hampton, ANGELA - 10/14/2024 8:35 AM EDT DAVID PROGRESS NOTE MECHAN ISM OF INJURY: Remote Trauma LOC (yes/no?): No Anticoagulant / Anti-platelet Rx none Reason/Dx: NA INJURIES: Submandibular fluid collection concerning for abscess SURGERIES/PROCEDURES: Date Operation/Procedure Provider Name ACTIVE MEDICAL PROBLEMS: Polysubstance use Alcohol use disorder INCIDENTAL FINDINGS: None DISCHARGE PLANNING: Pending PRS recs Trauma outpatient follow up TODAY' S ASSESSMENT AND PLAN OF CARE: Remote Trauma: S/p mandibular ORIF and MMF application on 10/04. Presented multiple times to [facility] since with jaw pain, swelling and concern [...] his jaw. Otherwise without complaints. Patient denies chestpain, shortness of breath, nausea, vomiting, headache, paraesthesias, [...] 15. Follows commands with extremities x4, equal strength.Pupils equal, round, reactive to light. EOMI. No [...] kg/m ., Estimated Creatinine Clearance: 161.9 mL/min (byC-G formula based on SCr of 0.73 mg/dL).): Lovenox * Marilou Chen [facility],PharmD - 10/12/2024 4:44 PM EDT PHARMACOTHERAPY NOTE: Antimicrobial Therapy Initiation Assessment / [...] 1 Encounters: 10/08/24 79.4 kg (175 lb) [place] body weight: 75.3 kg (166 lb 0.1 [...] 98.5 F Micro: Pending Pharmacist: Marilou Chen RPh,Stefani Contact Number: Yusef ([phone]) or Secure Chat documented in this [id number] Procedure note* Op Note - Marilou Vasquez MD - 10/14/2024 10:42 AM EDT Kade Gonzalez [id number] 1995 Attending: Marilou Vasquez MD Trailer Driver: Beverley Shepherd MD Pre Procedure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 can cause dangerous side effects or . Ask your doctor before using opioid medication, a sleeping pill, a muscle relaxer, or medicine for anxiety or seizures. Other drugs may affect chlordiazepoxide, including prescription and ijoz-uvv-leoqxbv medicines, vitamins, and herbal products. Tell your [...] to ensure that the information provided by [employer]. ('[employer]') is accurate, up-to-date, and complete, but no guarantee is made to that effect. Drug information contained herein may be time sensitive. [employer] information has been compiled for use by healthcare practitioners and consumers in the [place] and therefore [employer] does not warrant that uses outside of the [place] are appropriate, unless specifically indicated otherwise. [employer]'s drug information does not endorse drugs, diagnose patients or recommend therapy. FoodieBytes.coms drug information isan informational resource designed to [...] effective or appropriate for any given patient. [facility] does not assume any responsibility for any aspect of healthcare administered with the aid of information [facility] provides. The information contained herein is not intended to cover all possible uses, directions, precautions, warnings, drug interactions, allergic reactions, or adverse effects. If you have questions about the drugs you are taking, check with your doctor, nurse or pharmacist. Copyright 7202-8246 [employer] [facility] Center[facility]urist[facility]. Version: 12.12. Revision Date: 09/12/2022. Education Materials [...] away. Follow these instructions at home: Take uwyj-vgs-qdaobgf and prescription medicines only as told by [...] 07/16/2008 Document Revised: 01/10/2018 Document Reviewed: 10/04/2017 [employer] Patient Education 2020 [employer] Seizure: New Onset with Unknown Cause (Adult) [...] told. 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 [address] [place] [address], [place] [address]. All rights reserved. This information is not intended as a substitute for professional medical care. Always follow yourhealthcare professional's instructions. Additional Information VACCINATE! IT SAVES LIVES! Members of the community who have not yet received the COVID-19 vaccine and would like to receive it can visit one of [facility] vaccine clinics. There are many vaccine clinic locations within the [facility]. For locations and available times, please visit https://gettheshot.coronavirus.[place].gov/. It is important to note that some COVID mobile vaccine clinics are held outdoors and may be canceled in rainy or stormy conditions. To learn more about pediatric vaccinations (ages 5-11), we invite you to visit the [facility] webpage. https://www.[facility].org/pages/3786-Egmrv-Hyouusdxnaj-Jqrbqbzkno-Kmsxj-Xqs stions.htmlTo learn more about the COVID-19 vaccine, we invite you to visit the CDC website for a list of frequently asked questions.https://www.cdc.gov/coronavirus/2019-ncov/vaccines/faq.html [facility] Patient Portal Access Instructions: Stay connected with your healthcare team and access your personal medical information anytime with the [facility] Patient Portal. Please follow the directions below to create your [facility] account: 1.Access the email account you provided upon registration to the hospital/physician office.2.Look for an invitation email from [facility].3.Open the email and access the invitation link: AcceptInvitation to [facility].4.Fill in the required emmanuel to create your account. To access your account, visit [employer]/X[employer] LtdOneChart. Click the blue button labeled Access Patient [...] who you will allowto register on the [facility] Patient Portal for access to your information. You can also access the [facility] on the [facility] pura. Simply click on Patient Portal and then log into your account. If you would like to receive a full copy of your medical records, please contact the [facility] Medical Records Department by calling [phone], Saturday through Saturday between 8 a.m. and [...] Call your local pharmacy or go to http://AdXpose.Pirate Pay/4W0Tk4e to find one close to you.3.Make use of household items: Use cat litter or old coffee grounds to dispose medications if other options arenot available. Mix your drugs with these household products, seal them in an airtight container andthrow it into the garbage. Call [facility]: [phone] to be sure your drugs can be [...] Signatures Patient Education Materials Alcohol Withdrawal Syndrome, Vsem-xp-Wyhb Seizure, New Onset, Unknown Cause (Adult) Medication Leaflets chlordiazePOXIDE My discharge plan and instructions have been reviewed and explained to me and I,KADE GONZALEZ understand my current condition and have read and understand these discharge instructions. I havereceived a written copy of the plan/instructions. If I have questions, I am aware that I should contact my doctor. 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 Patient presented to [facility] emergency department on 06/20/2023 after possible seizure. Patient was at [facility] ED earlier in the day [...] EC06/20/23: Sinus tachycardia Electronic Signature: MICHAEL PADRON 06/20/2023 02:28:09 Assessment/Plan 1. Seizure due to [...] ANA MARIA PEREZ on 06/20/2023 02:41 PM [facility]05-09-2024 Evaluation + Plan noteExtracted from: [...] and may include grammatical and/or spelling errors. [facility] 05-09-2024 Note ORIGINAL EXAMINATION: ONE [...] 3:12:39 AM Ordering Provider: MICHAEL [facility]05-09-2024 Note ORIGINAL EXAMINATION: CT OF THE [...] Sign Date: 06/20/2023 3:20:14 AM Ordering Provider: [facility]05-09-2024 Note ORIGINAL EXAMINATION: CT OF THE [...] Sign Date: 06/20/2023 3:18:15 AM Ordering Provider: [facility]05-09-2024 NoteSinus tachycardia Electronic Signature: MICHAEL PADRON DO 06/20/2023 02:28:[address] [place] [address] 05-08-2024 Discharge summary Author Carmelo Schwiger [facility] June 20, 2023 12:34am Note Date/Time June 19, 2023 9:50pm [facility] Medical Records Department [address] [place] [address] Emergency Department Summary 06/19/23 MR#: [id number] Acct: [id number] Name: KADE GONZALEZ Rep #:[id number] : 1995 27 From: Carmelo Clarke PCP: [...] his symptoms betterand nothing makes them worse. [facility] Medical History Alcohol abuse Alcohol [...] % (Auto) 60.8 Lymph % (Auto) 28.9 Lowndes % (Auto) 8.4 Eos % (Auto) 0.6 [...] sinus rhythm with a rate of 75. CO interval, QRS interval, and QTc intervals were all normal. Horace was normal. There are no acute ST [...] problems, contact your Primary Care Provider. Call [facility] ([phone]) or report to the closest Emergency Room. Call 911 if necessary. 05/11/04 33 <Electronically signed by Carmelo Mccray DO> Cosigner Signature (if applicable): CC: No Primary Care Physician ~ Signed [facility] Work Phone: 1(463) 490-642103-20-2024 Progress note Author Carmelo Albert [facility] May 01, 2023 9:43am Note Date/Time May 01, 2023 7:0 1am [facility] Medical Records Department [address] [place] [address] Progress Note - Hospitalist 05/01/23 0658 MR#: [id number] Acct: [id number] Name: KADE GONZALEZ Rep #:[id number] : 1995 27 From: Carmelo Albert DO PCP: Care Physician,No Primary Status :ADM IN Location: ICU [place] [address] 3-1 Reason for Visit Reason for Visit: [...] (Auto) 49.6, Lymph % (Auto) 41.9 H, Lowndes % (Auto) 6.5, Eos % (Auto) 0.3, [...] type admission. Charges/Coding Visit Charges Inpatient E&M: 69770 Subs Hosp L2 05/01/23 0943 <Electronically signed by Carmelo Albert DO> Cosigner Signature (if applicable): CC: ~ Signed [facility] Work Phone: 1(392) 519-955503-20-2024 Discharge summary Author Marcio Cardona [facility] May 01, 2023 6:26am Note Date/Time May 01, 2023 5:2 8am [facility] Medical Records Department [address] [facility] [place] [address] Emergency Department Summary 05/01/23 MR#: [id number] Acct: [id number] Name: KADE GONZALEZ Rep #:[id number] : 1995 27 From: Marcio Cardona MD [...] does not intend to do that again. [facility] Medical History (Updated 05/01/23 @ [...] your Primary Care Provider. Call [facility] ([phone]) or report to the closest Emergency Room. Call 911 if necessary. 05/01/23625 <Electronically signed by Marcio Cardona MD> Cosigner Signature (if applicable): CC: No Primary Care Physician ~ Signed [facility] Work Phone: 1(811) 151-713803-20-2024 History and physical note Author Jacquie Beckwith [facility] May 01, 2023 5:50am Note Date/Time May 01, 2023 5:3 3am [facility] Medical Records Department [address] [place] [address] H&P Exam - Hospitalist 05/01/23 0532 MR#: [id number] Acct: [id number] Name: KADE GONZALEZ Rep #:[id number] : 1995 27 From: Jacquie Beckwith MD [...] Asthma, Chronic migraines who presents to the [facility] ED on 3/20/24 withlast EtOH intake reported prior to ED [...] Asthma, Chronic migraines who presents to the [facility] ED on 05/01/23 withlast EtOH [...] type admission. Charges/Coding Visit Charges Inpatient E&M: 16317 Init Hosp L2 05/01/23 0550 <Electronically signed by Jacquie Beckwith MD> Cosigner Signature (if applicable): CC: Dr. Jacuqie Beckwith MD; No Primary Care Physician~ Signed [facility] Work Phone: 1(794) 214-683102-10-2024 History and physical note Author Stan Thomas [facility] March 23, 2023 12:48am Note Date/Time March 23, 2023 12:18am [facility] Medical Records Department [address] [place] [address] H&P Exam - Hospitalist 03/23/23 0017 MR#: [id number] Acct: [id number] Name: KADE GONZALEZ Rep #:[id number] : 1995 27 From: Stan Bullock PCP: Care Physician,No Primary Status :ADM IN Location: [place] [id number] HPI - General General Date of Admission: [...] % (Auto) 58.3, Lymph % (Auto) 34.2, Lowndes% (Auto) 6.3, Eos % (Auto) 0.1, Baso [...] Serum alcohol was highat 212. CIWA monitor. telecom manager consulted.. 2. Chronic nicotine use/cigarette smoking: [...] % (Auto) 58.3, Lymph % (Auto) 34.2, Lowndes% (Auto) 6.3, Eos % (Auto) 0.1, Baso [...] Alcohol 212.0 Charges/Coding Visit Charges Inpatient E&M: 22441 Init Hosp L3 03/23/23 0048 <Electronically signed by Stan Thomas MD> Cosigner Signature (if applicable): CC: Dr. Stan Thomas MD; No Primary Care Physician~ Signed [facility] Work Phone: 1(169) 523-722002-10-2024 Discharge summary Author Daquan Reid [facility] March 23, 2023 12:42am Note Date/Time March 22, 2023 1 0:17pm [facility] Medical Records Department [address] [place] [address] Emergency Department Summary 03/22/23 MR#: [id number] Acct: [id number] Name: DAISYKADEKylah HANSEN Rep #:[id number] : 1995 27 From: Daquan Reid MD PCP: Care Physician,No Primary Status :ADM IN Location: [place] [address] Daquan Reid MD on [...] detox last year, then went through [facility]. [facility] Medical History Alcohol abuse Anxiety [...] discussed with Dr. Thomas for admission to [facility] for detox from alcohol. Patient is [...] % (Auto) 58.3 Lymph % (Auto) 34.2 Lowndes % (Auto) 6.3 Eos % (Auto) 0.1 [...] alcohol intoxication Disposition Disposition: Acute Care [facility] What to do if you have Problems For any increased pain, shortness of breath, bleeding, nausea or vomiting, chestpain, or any unexpected problems, contact your Primary Care Provider. Call [facility] ([phone]) or report to the closest Emergency Room. Call 911 if necessary. 03/23/23 0018 <Electronically signed by Daquan Reid MD> Cosigner Signature (if applicable): CC: No Primary Care Physician ~ Signed [facility] Work Phone: 1(221) 420-985902-10-2024 Discharge summary Author Daquan Reid [facility] March 23, 2023 12:42am Note Date/Time March 22, 2023 1 0:17pm [facility] Medical Records Department [address] [place] [address] Emergency Department Summary 03/22/23 MR#: [id number] Acct: [id number] Name: KADE GONZALEZ Rep #:[id number] : 1995 27 From: Daquan Reid MD PCP: Care Physician,No Primary Status :ADM IN Location: [place] [id number] Daquan Reid MD on 03/23/23 at 0042 EKG was obtained and interpreted by myself independently as sinus tachycardia at108 bpm without ectopy or acute ST changes. No STEMI. 03/23/2341<Electronically signed by Daquan Reid MD> Cosigner Signature [...] detox last year, then went through [facility]. [facility] Medical History Alcohol abuse Anxiety [...] of last year. [facility] He had been started on [...] discussed with Dr. Thomas for admission to [facility] for detox from alcohol. Patient is [...] % (Auto) 58.3 Lymph % (Auto) 34.2 Lowndes % (Auto) 6.3 Eos % (Auto) 0.1 [...] alcohol intoxication Disposition Disposition: Acute Care [facility] What to do if you have Problems For any increased pain, shortness of breath, bleeding, nausea or vomiting, chestpain, or any unexpected problems, contact your Primary Care Provider. Call [facility] ([phone]) or report to the closest Emergency Room. Call 911 if necessary. 03/23/23 0018 <Electronically signed by Daquan Reid MD> Cosigner Signature (if applicable): CC: No Primary Care Physician ~ Signed [facility] Work Phone: [phone]) 849-294906-27-[address] Albert [facility] August 07, 2022 9:19am Note Date/Time August 07, 2022 9:18 am [facility] Medical Records Department [address] [facility] [place] [address] Instructions for Home/Discharge Instructions 08/07/22 0918 MR#: [id number] Acct: [id number] Name: KADE GONZALEZ Rep #:[id number] : 1995 From: Carmelo Albert DO PCP: [...] Attending Provider: Carmelo Albert Primary Care Provider: [place] Physician,No Primary Consulting Providers: Ashley Hirsch Discharge Orders/Prescriptions Prescriptions: No Action NK Referrals / Follow Up: Care Physician,No Primary [Primary Care Provider] - NOT,DEFINED [Non-Staff] - Disposition Disposition (needs filled in before D/C Order can be placed): Home, Self Care 08/07/22918<Electronically signed by Carmelo Albert DO>Carmelo Albert DO CC: Dr. Ashley Hirsch DO; No Primary Care Physician ~ Signed [facility] Work Phone: 1([phone]) 211-486006-27-[address] Albert [facility] August 07, 2022 9:19am Note Date/Time August 07, 2022 9:19 am [facility] Department [address] [place] [address] Discharge Summary 08/07/22918 MR#: [id number] Acct: [id number] Name: KADE GONZALEZ Rep #:[id number] : 1995 From: Carmelo Albert DO PCP: [place] Physician,No Primary Status :ADM IN Location: [place] [address] Providers Date of Admission: 08/05/22 Primary Care [...] follow up with [facility] for inpatient treatment on 08/08 Given reported [...] Self Care Charges/Coding Visit Charges Inpatient E&M: 79420 Disch Hosp 08/07/22 0919 <Electronically signed by Carmelo Albert DO> Cosigner Signature (if applicable): CC: Dr. Carmelo Albert DO; No Primary Care Physician~ Signed [facility] Work Phone: [phone]) 868-123906-27-[address] Albert [facility] August 07, 2022 9:18am Note Date/Time August 07, 2022 8:02 am [facility] Medical Records Department [address] [place] [address] Progress Note - Hospitalist 08/07/22 0801 MR#: [id number] Acct: [id number] Name: KADE GONZALEZ Rep #:[id number] : 1995 26 From: Carmelo Albert DO PCP: Care Physician,No Primary Status :ADM IN Location: [place] 286412-1 Reason for Visit Reason for Visit: Diagnoses [...] follow up with [facility] at [facility] for inpatient treatment on 08/08 Given reported [...] Cosigner Signature (if applicable): CC: ~ Signed [facility] Work Phone: 1(349) 740-129106-26-[address] Albert [facility] August 06, 2022 12:45pm Note Date/Time August 06, 2022 8:25 am [facility] Medical Records Department [address] [place] [address] Progress Note - Hospitalist 08/06/22 08 MR#: [id number] Acct: [id number] Name: KADE GONZALEZ Rep #:[id number] : 1995 26 From: Carmelo Albert DO PCP: Care Physician,No Primary Status :ADM IN Location: [place] [address] Reason for Visit Reason for Visit: Diagnoses [...] % (Auto) 56.8, Lymph % (Auto) 33.2, Lowndes% (Auto) 8.3, Eos % (Auto) 0.3, Baso [...] follow up with [facility] at [facility] for inpatient treatment on 08/08 PLAN: Plan Chronic complicating conditions: * Polysubstance abuse-Patient admits to utilizing cocaine and methamphetamines as well-Recommend cessation-180 consultation * Tobacco abuse-Recommend cessation-Nicotine patch DVT prophylaxis -Low risk -Recommend early and frequent ambulation CODE STATUS -Full code Charges/Coding Visit Charges Inpatient E&M: 37756 Subs Hosp L1 08/06/22 1245 <Electronically signed by Carmelo Albert DO> Cosigner Signature (if applicable): CC: ~ Signed [facility] Work Phone: 1(775) 283-133006-25-[address] Ridley [facility] August 05, 2022 7:14pm Note Date/Time August 05, 2022 3:51 pm [facility] Medical Records Department [address] [place] [address] Emergency Department Summary 08/05/22 MR#: [id number] Acct: [id number] Name: KADE GONZALEZ Rep #:[id number] : 1995 26 From: Cadence CAMPA PCP: Care Physician,No Primary Status :ADM IN Location: [facility] [place] [facility] [id number] HPI <KATHERYN Mcdowell - Last Filed: 08/05/22 [...] % (Auto) 56.8 Lymph % (Auto) 33.2 Lowndes % (Auto) 8.3 Eos % (Auto) 0.3 [...] (Auto) Neut % (Auto) Lymph % (Auto) Lowndes % (Auto) Eos % (Auto) Baso % [...] Ridley MD - Last Filed: 08/05/22 16:54> [facility] Lab Data Labs: Laboratory Results - last 24 hr 08/05/22 08/05/22 08/05/22 15:56 15:56 15:56 WBC 7.1 RBC 4.56 L Hgb 14.6 Hct 41.3 MCV 90.6 MCH 32.0 MCHC 35.4 RDW Std Deviation 38.1 RDW Coeff of Jessica 11.6 Plt Count 249 MPV 9.1 Immature Gran % (Auto) 0.400 Neut % (Auto) 56.8 Lymph % (Auto) 33.2 Lowndes % (Auto) 8.3 Eos % (Auto) 0.3 [...] (Auto) Neut % (Auto) Lymph % (Auto) Lowndes % (Auto) Eos % (Auto) Baso % [...] problems, contact your Primary Care Provider. Call [facility] ([phone]) or report to the closest Emergency Room. Call 911 if necessary. 08/05/22 7211 <Electronically signed by Cadence CAMPA> Cosigner Signature (if applicable): 08/05/221913 <Electronically signed by Fior Ridley MD> CC: No Primary Care Physician ~ Signed [facility] Work Phone: [phone]) [phone] History and physical note Author Dr. Hirsch [facility] August 05, 2022 5:16pm Note Date/Time August 05, 2022 5:05 pm [facility] Medical Records Department [address] [place] [address] H&P Exam - Hospitalist 08/05/22 1701 MR#: [id number] Acct: [id number] Name: KADE GONZALEZ Rep #:[id number] : 1995 From: Ashley Hirsch DO PCP: Care Physician,No Primary Status :ADM IN Location: [facility] [id number] HPI - General General Date of Admission: 08/05/22 Date of Service: 08/05/22 Chief Complaint: Desire for detoxification from alcohol HPI Narrative KADE GONZALEZ, is a 26 M who presented to the emergency department at [facility] on 08/05/2022 requesting detox from alcohol. The [...] % (Auto) 56.8, Lymph % (Auto) 33.2, Lowndes% (Auto) 8.3, Eos % (Auto) 0.3, Baso [...] -Full code Charges/Coding Visit Charges Inpatient E&M: 52662 Init Hosp L2 08/05/22 1716 <Electronically signed by Ashley Hirsch DO> Cosigner Signature (if applicable): CC: Dr. Ashley Hirsch DO; No Primary Care Physician~ Signed [facility] Work Phone: Discharge summary Author Marcio Dulce [facility] May 01, 2023 6:26am Note Date/Time May 01, 2023 5:2 8am [facility] Medical Records Department [address] [place] [address] Emergency Department Summary 05/01/23 MR#: [id number] Acct: [id number] Name: KADE GONZALEZ Rep #:[id number] : 1995 27 From: Marcio Cardona MD [...] does not intend to do that again. [facility] Medical History (Updated 05/01/23 @ [...] your Primary Care Provider. Call [facility] ([phone]) or report to the closest Emergency Room. Call 911 if necessary. 05/01/23 06 <Electronically signed by Marcio Cardona MD> Cosigner Signature (if applicable): CC: No Primary Care Physician ~ Signed [facility] Work Phone: Discharge summary Author Colin Colon [facility] Note Date/Time October 02, 2024 7: 26am [facility] Medical Records Department [address] [place] [address] Emergency Department Summary 10/02/24 MR#: [id number] Acct: [id number] Name: KADE GONZALEZ Rep #:[id number] : 1995 28 From: Colin Colon DO [...] them he was brought in for evaluation. [facility] Medical History Substance abuse Depression [...] states he would prefer to go to [place] versus [place] or [place]. Therefore the case was [facility] at [facility]. He agrees to accept the patient. Patient [...] has been accepted to the trauma center andtherefore we transferred by local squad for further [...] 76.7 H Lymph % (Auto) 14.6 L Lowndes % (Auto) 7.1 Eos % (Auto) 0.5 [...] be considered as clinically warranted. [facility] 10/02/24 05:15 IMPRESSION: Soft tissue emphysema in the left aspect of the neck. No CT evidence of an acute fracture or dislocation. [facility] Facial/Sinus 10/02/24 05:15 IMPRESSION: Mandibular right para-symphyseal and left mandibular angle/body fractures with related soft tissue edema and possible left master intramuscular hematoma as detailed. Reading [facility] Management Discussion w/another healthcare provider: Auditing Manager Discharge Plan Triage Chief Complaint: Head Injury ED Provider: Colin Colon Dx/Rx/DC Orders Clinical Impression: Mandible open fracture, History of alcohol abuse, Tobacco use, Alcohol abuse Prescriptions: No Action NK Primary Care Provider: Care Physician,No Primary Referrals: Care Physician,No Primary [Primary Care Provider] - Print Language: Azerbaijani Disposition Disposition: Acute Care Hospital Discharge Location: [facility] What to do if you have Problems For any increased pain, shortness of breath, bleeding, nausea or vomiting, chestpain, or any unexpected problems, contact your Primary Care Provider. Call [facility] ([phone]) or report to the closest Emergency Room. Call 911 if necessary. 10/02/24725 <Electronically signed by Colin Colon DO> Cosigner Signature (if applicable): CC: No Primary Care Physician ~ Signed [facility] Work Phone: Evaluation note* Diagnosis Onset Date Resolution Status Alcohol abuse acute Desire for detoxification [place] [facility] Work Phone: Evaluation note* Diagnosis Onset Date Resolution Status Acute alcohol intoxication a cute Acute hyperactive alcohol withdrawal delirium acute Desire for detoxification [place] [facility] Work Phone: Evaluation note* Diagnosis Onset Date Resolution Status Acute hyperactive alcohol withdrawal delirium resolved Alcohol dependence acute Alcohol withdrawal acute [facility] Work Phone: Evaluation note* Diagnosis Onset Date Resolution Status Acute hyperactive alcohol withdrawal delirium resolved Alcohol withdrawal acute [facility] Work Phone: Evaluation note* Diagnosis Influenza A- Primary Influenza with other respiratory manifestations URI with cough and congestion Generalized body aches [facility] [place] [facility] Diagnosis Chest pain, unspecified type- Primary Methamphetamine abuse (HCC) Nondependent amphetamine or related acting sympathomimetic abuse, unspecified Alcohol abuse Nondependent alcohol abuse, unspecified drinking behavior Chest pain Unspecified chest pain Methamphetamine abuse (HCC) Nondependent amphetamine or related acting sympathomimetic abuse, unspecified Alcohol abuse Nondependent alcohol abuse, unspecified drinking behavior documented in this encounter [facility] note* Diagnosis Mandible fracture (HCC)- Primary Closed fracture of unspecified site of mandible Closed fracture of mandible, unspecified laterality, unspecified mandibular site, initial encounter ([facility]) Alcohol use disorder, severe, dependence ([facility]) Alcohol withdrawal syndrome without complication (HCC) Methamphetamine use (HCC) Nondependent amphetamine or related acting sympathomimetic abuse, unspecified Cocaine use Cannabis use, uncomplicated Cigarette nicotine dependence without complication Acute pain History of benzodiazepine use [facility] [place] [facility] Diagnosis Mandible fracture (HCC)- Primary Closed fracture of unspecified site of mandible Closed fracture of mandible, unspecified laterality, unspecified mandibular site, initial encounter ([facility]) Trauma- Primary Injury, other and unspecified, unspecified site Closed fracture of mandible with routine healing, unspecified laterality, unspecified mandibular site, subsequent encounter History of benzodiazepine use Cigarette nicotine dependence without complication Cannabis use, uncomplicated Alcohol withdrawal syndrome without complication (HCC) Alcohol use disorder, severe, dependence (HCC) Acute pain 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 Hirsch [facility] August 05, 2022 5:16pm Note Date/Time August 05, 2022 5:05 pm [facility] Department [address] [place] [address] H&P Exam - Hospitalist 08/05/22 1701 MR#: [id number] Acct: [id number] Name: KADE GONZALEZ Rep #:[id number] : 1995 26 From: Ashley Hirsch DO PCP: Care Physician,No Primary Status :ADM IN Location: [facility] [id number] HPI - General General Date of Admission: 08/05/22 Date of Service: 08/05/22 Chief Complaint: Desire for detoxification from alcohol HPI Narrative KADE GONZALEZ, is a 26 M who presented to the emergency department at [facility] on 08/05/2022 requesting detox from alcohol. The [...] % (Auto) 56.8, Lymph % (Auto) 33.2, [place]% (Auto) 8.3, Eos % (Auto) 0.3, Baso [...] -Full code Charges/Coding Visit Charges Inpatient E&M: 48238 Init Hosp L2 08/05/22 1716 <Electronically signed by Ashley Hirsch DO> Cosigner Signature (if applicable): CC: Dr. Ashley Hirsch DO; No Primary Care Physician~ Signed [facility] Work Phone: History and physical note Author Stan Thomas [facility] March 23, 2023 12:48am Note Date/Time March 23, 2023 12:18am [facility] Medical Records Department [address] [place] [address] H&P Exam - Hospitalist 03/23/23 0017 MR#: [id number] Acct: [id number] Name: KADE GONZALEZ Rep #:[id number] : 1995 27 From: Stan Bullock PCP: Care Physician,No Primary Status :ADM IN Location: [facility] [place] [id number] HPI - General General Date of Admission: [...] % (Auto) 58.3, Lymph % (Auto) 34.2, [place]% (Auto) 6.3, Eos % (Auto) 0.1, Baso [...] Serum alcohol was highat 212. CIWA monitor. telecom manager consulted.. 2. Chronic nicotine use/cigarette smoking: [...] % (Auto) 58.3, Lymph % (Auto) 34.2, [place]% (Auto) 6.3, Eos % (Auto) 0.1, Baso [...] Alcohol 212.0 Charges/Coding Visit Charges Inpatient E&M: 45000 Init Hosp L3 03/23/23 0048 <Electronically signed by Stan Thomas MD> Cosigner Signature (if applicable): CC: Dr. Stan Thomas MD; No Primary Care Physician~ Signed [facility] Work Phone: History and physical note Author Jacquie Beckwith [facility] May 01, 2023 5:50am Note Date/Time May 01, 2023 5:3 3am [facility] Medical Records Department [address] [place] [id number] H&P Exam - Hospitalist 05/01/23 0532 MR#: [id number] Acct: [id number] Name: DAISYKADE JADE Rep #:[id number] : 1995 27 From: Jacquie Beckwith MD [...] Asthma, Chronic migraines who presents to the [facility] ED on 05/01/23 withlast EtOH [...] Asthma, Chronic migraines who presents to the [facility] ED on 05/01/23 withlast EtOH [...] type admission. Charges/Coding Visit Charges Inpatient E&M: 96613 Init Hosp L2 05/01/23 0550 <Electronically signed by Jacquie Beckwith MD> Cosigner Signature (if applicable): CC: Dr. Jacquie Beckwith MD; No Primary Care Physician~ Signed [facility] Work Phone: Hospital course Narrative No data available for this section [facility] Hospital Discharge instructions* Attachments The following attachments cannot be sent through Care Everywhere. * Chest Pain, Adult ED (Azerbaijani) * Troponin Test (Azerbaijani) * Drug Abuse Treatment (Azerbaijani) * Alcohol Use Disorder ED ([place]zerbaijani) * Polysubstance Use Disorder ([place]zerbaijani) * Substance Use Disorder ED ([place]zerbaijani) [facility] Dis[facility] instructions Additional Instructions Your exam would [...] infection permanent disability facial abnormality and even .[facility] Work Phone: Hospital Discharge instructionsAdditional Instructions Thank you for trusting us with your care today! Please take Tylenol (2 pills, 650 mg), ibuprofen (2 pills, 400 mg) every 6 hours as needed for pain and fever control. Please take oxycodone if the above regimen does not work. Please return to the emergency department if your symptoms change or worsen. Please follow with your operating surgeon for further outpatient evaluation, pain control and management.[facility] Work Phone: Instructions* Attachments The following attachments cannot be sent through Care Everywhere. * Flu Discharge Instructions, Adult ([place]zerbaijani) [facility] (narrative)No reason for referral information availableWKettering Health Springfield Work Phone: Chief Complaint and Reason for [...] ETOH DETOXIFICATION October 02, 2024 7: 14am Chief Complaint Admit Date ETOH DETOXIFICATION October 01, 2024 12 :22am ETOH DETOXIFICATION October 01, 2024 1: 51am alt loc October 02, 2024 4: 05am HEAD INJURY October 02, 2024 4: 54am ETOH DETOXIFICATION October 02, 2024 7: 14am jaw pain October 18, 2024 3:01pm Advance Directives Advance Directive Response Recorded Date/ Time Living Will No August 05, 2022 4:09pm Power of Data Analyst No August 05 4:09pm Advance Directive Response Recorded Date/ Time Living Will No August 05, 2022 6:27pm Power of Data Analyst No August 05 6:27pm Advance Directive Response Recorded Date/ Time Living Will No March 22 10:56pm Power of Data Analyst No March 22, 2023 10:56pm Advance Directive Response Recorded Date/ Time Living Will No March 23 024 1:01am Power of Data Analyst No March 23, 2023 1:01am Advance Directive Response Recorded Date/ Time Living Will No May 01, 2023 5:10am Power of Data Analyst No April 30 5:10am Advance Directive Response Recorded Date/ Time Living Will No May 01, 2023 6:45am Power of Data Analyst No April 30 6:45am Advance Directive Response Recorded Date/ Time Living Will No June 19, 2023 11 :38pm Power of Data Analyst No June 19, 2023 11:38pm Advance Directive Response Recorded Date/ Time Do you have a Healthcare Power of Data Analyst? No October 01, 2024 1:52am Advance Directive Response Recorded Date/ Time Do you have a Healthcare Power of Data Analyst? No October 01, 2024 1:52am Do you have a Healthcare Power of Data Analyst? No October 02, 2024 4:09am Advance Directive Response Recorded Date/ Time Do you have a Healthcare Power of Data Analyst? No October 01, 2024 1:52am Do you have a Healthcare Power of Data Analyst? No October 02, 2024 4:09am Do you have a Healthcare Power of Data Analyst? No October 02, 2024 4:55am Date Activated [...] Comments 10/02/2024 12:39 PM 10/04/2024 2:55 PM Advance Directive Response Recorded Date/ Time Do you have a Healthcare Power of Data Analyst? No October 01, 2024 1:52am Do you have a Healthcare Power of Data Analyst? No October 18, 2024 3:22pm Do you have a Healthcare Power of Data Analyst? No October 02, 2024 4:09am Do you have a Healthcare Power of Data Analyst? No October 02, 2024 4:55am Family History Relationship Condition Age at Onset [...] Dr. Ashley Hirsch , DO Admit Provider, Attending Provide r Active [...] Provider Active Star t: October 02, 2024 Venue Coordinator Relationship Specialty Start Date End Date No, Physician [facility] PCP - General 10/02/24 Venue Coordinator Relationship Specialty Start Date End Date No, Physician [facility] PCP - General 10/02/24 Venue Coordinator Relationship Specialty Start Date End Date No, Physician [facility] PCP - General 10/02/24 Venue Coordinator Relationship Specialty Start Date End Date No, Physician [facility] PCP - General 10/02/24 Team Status: Inactive Member Role/Relationship Status Dates No Primary Care Physician Primary Care Provider Active Start: October 02, 2024 End: October 02, 2024 Dr. Colin Colon DO Attending Provider Active Start: October 02, 2024 End: October 02, 2024 Dr. Colin Colon , Emergency Provider Active Start: October 02, 2024 End: October 02, 2024 Team Status: Inactive Member Role/Relationship Status Dates No Primary Care Physician Primary Care Provider Active Start: October 02, 2024 End: October 02, 2024 Dr. Colin Colon , DO Attending Provider Active Start: October 02, 2024 End: October 02, 2024 Dr. Colin Colon , Emergency Provider Active Start: October 02, 2024 End: October 02, 2024 Team Status: Inactive Member Role/Relationship Status Dates No Primary Care Physician Primary Care Provider Active Start: October 18, 2024 End: October 18, 2024 Dr. Bairon Dee , DO Emergency Provider Active Start: October 18, 2024 End: October 18, 2024 Goals (unrecognized section and content) Goals may be documented in a n alternate section No data available for this section (unrecognized sect ion and content) No Status Records FoundNo Status Records FoundNo Status Records FoundNo Status Records FoundNo Status Records FoundNo Status Records Found INFORMATION SOURCE (unrecogn ized section and content) DATE CREATED AUTHOR 06/28/2023 [facility] ([place]) DATE CREATED AUTHOR AUTHOR'S ORGANIZ ATION 08/02/2023 [facility] DATE CREATED AUTHOR AUTHOR'S ORGANIZ ATION 06/26/2024 [facility] DATE CREATED AUTHOR AUTHOR'S ORGANIZ ATION 10/01/2024 [facility] DATE CREATED AUTHOR AUTHOR'S ORGANIZ ATION 10/09/2024 [facility] DATE CREATED AUTHOR AUTHOR'S ORGANIZ ATION 10/16/2024 [facility] Reason for Visit (unrecogniz ed section and content) Reason Comments Jaw Pain Specialty Diagnoses / Procedures Referred By Contac t Referred To Contact Diagnoses Fracture of mandible of other specified site, initial encounter for open fracture (HCC) Referral ID Status Reason Start Date Expiration Date Visits Re quested Visits Authorized [id number] 1 1 Specialty Diagnoses / Procedures Referred By Contac t Referred To Contact Diagnoses Trauma Referral ID Status Reason Start Date Expiration Date Visits Re quested Visits Authorized [id number] 1 1 Reason Comments URI Cough /Body [...] Victim Specialty Diagnoses / Procedures Referred By Contac t Referred To Contact Diagnoses Mandible fracture (HCC) Trauma: 2 Open Jaw Fx, Intoxication Referral ID Status Reason Start Date Expiration Date Visits Re quested Visits Authorized [id number] 1 1 Specialty Diagnoses / Procedures Referred By Contac t Referred To Contact Diagnoses Trauma Closed fracture of mandible with routine healing, unspecified laterality, unspecified mandibular site, subsequent encounter Referral ID Status Reason Start Date Expiration Date Visits Re quested Visits Authorized [id number] 1 1 Scheduled Active and Recently Administ ered Medications (unrecognized section and content) Medication Order 06/09/2024 06/10/2024 06/11/2024 sodium chloride 0.9 % bolus 1,000 mL (COMPLETED) 1,000 mL, IntraVENous, at 1,000 mL/hr, Administer over 1 Hours, Once, On Sat06/11/24 at 0550, For 1 dose 0604 (New Bag - Prov ider: Tash Burt, KATERYNA)0704 (Stopped - Provider: Holli Walker RN) Scheduled Medication Order 10/02/2024 10/03/2024 10/04/2024 acetaminophen [...] csf leak) 1200 (New Bag - Provider: Pirya Domínguez RN)1300 (Stopped - Provider: Priya Domínguez RN)1950 (New Bag - Provider: Fior Kelly RN) 0412 (New Bag - Provider: Fior Kelly RN)0653 (MAR Hold - Provider: Transfer Provider, Automatic - Reason: Patient not available)1120 (MAR Unhold - Provider: Transfer Provider, Automatic)1200 (Due) enoxaparin (LOVENOX) syringe 30 mg 30 mg, Subcutaneous, 2 times daily, First dose on Sat10/02/24 at 1245, Administer in abdomen unless otherwise directed by prescriber. Notify physician if patient refuses., Indication: VTE Prophylaxis 1245 (Not Given - Provider: Elo Campbell RN - Reason: Medication not available - Comment: requested)213 (Given - Provider: Fior Kelly RN) 0848 (Given - Provider: Priya Domínguez RN)2140 (Given - Provider: Fior Kelly RN) 0653 (MAR Hold - Provider: Transfer Provider, Automatic - Reason: Patient not available)0900 (Automatically Held - Provider: Transfer Provider, Automatic)1120 ([facility] Unhold - Provider: Transfer Provider, Automatic) folic [...] (Automatically Held - Provider: Transfer Provider, Automatic)1120 ([facility] Unhold - Provider: Transfer Provider, Automatic) ketorolac [...] Kelly RN) 0523 (Given - Provider: Fior Kelly RN)1637 (Given - Provider: Priya Domínguez RN)2140 (Given - Provider: Fior Kelly RN) 0537 (Given - Provider: Fior Kelly RN)0653 (MAR Hold - Provider: Transfer Provider, Automatic - Reason: Patient not available)1120 (MAR Unhold - Provider: Transfer Provider, Automatic) tximitua-fpk-vsbqsxv gluconate liquid 15 mL 15 mL, Oral, [...] RN) 0859 (Canceled Entry - Provider: Priya Domínguez, KATERYNA)0900 (Canceled Entry - Provider: Priya Domínguez, KATERYNA) 0653 (MAR Hold - Provider: Transfer Provider, Automatic - Reason: Patient not available)0900 (Automatically Held - Provider: Transfer Provider, Automatic)1120 (MAR Unhold - Provider: Transfer Provider, Automatic) PHENobarbital injection 221 mg (COMPLETED)(Linked Group 2) 221 mg (rounded from 225.9 mg = 3 mg/kg 75.3 kg [place] weight), Intramuscular, Every 3 hours, First dose [...] 301.2 mg = 4 mg/kg 75.3 kg [place] weight), Intramuscular, Once, On Sat10/02/24 at 1430, [...] Sat10/04/24 at 0900, For 2 doses 0653 (MAR Hold - Provider: Transfer Provider, Automatic - Reason: Patient not available)0900 (Automatically Held - Provider: Transfer Provider, Automatic)1120 ([facility] Unhold - Provider: Transfer Provider, Automatic) PHENobarbitaL tablet 32.4 mg(Linked Group 2) 32.4 mg, Oral, Every 24 hours, First dose on 10/05/24 at 2100, For 1 dose 0653 (MAR Hold - Provider: Transfer Provider, Automatic - Reason: Patient not available)1120 ([facility] Unhold - Provider: Transfer Provider, Automatic) PHENobarbitaL tablet 64.8 mg (COMPLETED)(Linked Group 2) 64.8 mg, Oral, Every 12 hours, First dose on 10/03/24 at 0900, For 2 doses 0848 (Given - Provider: Priya Domínguez, KATERYNA)2046 (Given - Provider: Fior Kelly, KATERYNA) polyethylene glycol (MIRALAX) powder 17 g 17 g, Oral, Daily, First dose on Sat10/02/24 at 1240 1240 (Not Given - Provider: Elo Campbell RN - Reason: Patient/family refused) 0900 (Canceled Entry - Provider: Priya Domínguez, KATERYNA) 0653 ([facility] Hold - Provider: Transfer Provider, Automatic - Reason: Patient not available)0900 (Automatically Held - Provider: Transfer Provider, Automatic)1119 ([facility] Unhold - Provider: Transfer Provider, Automatic) [...] Reason: Patient/family refused)2010 (Given - Provider: Fior Kelly, KATERYNA) 0848 (Given - Provider: Priya Domínguez, KATERYNA)2046 (Given - Provider: Fior Kelly, KATERYNA) 0653 (MAR Hold - Provider: Transfer Provider, Automatic - Reason: Patient not available)0900 (Automatically Held - Provider: Transfer Provider, Automatic)112 (MAR Unhold - Provider: Transfer Provider, Automatic) [...] (Given - Provider: Priya Domínguez RN) 0653 (APR Hold - Provider: Transfer Provider, Automatic - Reason: Patient not available)1120 (APR Unhold - Provider: Transfer Provider, Automatic) Continuous [...] Remedios Griffiths CRNA)1006 (Stopped - Provider: Fior Marie RN) PRN Medication Order 10/02/2024 10/03/2024 10/04/2024 [...] enteral routes. 2010 (Given - Provider: Fior Kelly RN) 0848 (Given - Provider: Priya Domínguez RN)1104 (Given - Provider: Priya Domínguez RN)1635 (Given - Provider: Priya Domínguez RN)1944 (Given - Provider: Fior Kelly RN)2332 (Given - Provider: Fior Kelly RN) HYDROmorphone [...] at 1041 1336 (Given - Provider: Elo Campbell, KATERYNA) methocarbamoL (ROBAXIN) tablet 500 mg(Linked Group 1) 500 mg, Oral, 3 times daily PRN, muscle spasms, Starting on Sat10/04/24 at 2200 0653 (APR Hold - Provider: Transfer Provider, Automatic - Reason: Patient not available)1120 (APR Unhold - Provider: Transfer Provider, Automatic) morphine syringe 4 mg 4 mg, Intravenous, Every 3 hours PRN, moderate to severe pain, Starting on Sat10/04/24 at 0046 0102 (Given - Provider: Fior Kelly, KAETRYNA)0405 (Given - Provider: Fior Kelly, KATERYNA)0653 (APR Hold - Provider: Transfer Provider, Automatic - Reason: Patient not available)1120 ([facility] Unhold - Provider: Transfer Provider, Automatic) [...] respiratory rate is 10 or greater. 0653 (APR Hold - Provider: Transfer Provider, Automatic - Reason: Patient not available)1120 ([facility] Unhold - Provider: Transfer Provider, Automatic) naloxone (NARCAN) injection 0.4 mg(Linked Group 4) 0.4 mg, Intravenous, As needed, opioid reversal, patient is pulseless, breathless, and unresponsive, Starting on Sat10/02/24 at 1041, Call a code first, then administer naloxone dose undiluted IV Push over 30 seconds. 0653 ([facility] Hold - Provider: Transfer Provider, Automatic - Reason: Patient not available)1120 ([facility] Unhold - Provider: Transfer Provider, Automatic) [...] (Given - Provider: Elo Campbell RN) 0653 ([facility] Hold - Provider: Transfer Provider, Automatic - Reason: Patient not available)1120 ([facility] Unhold - Provider: Transfer Provider, Automatic) ondansetron (ZOFRAN) injection 4 mg(Linked Group 5) 4 mg, Intravenous, Every 6 hours PRN, nausea, vomiting, Starting on Sat10/02/24 at 1239, [] Oral or IV - use oral route if tolerated. 0653 ([facility] Hold - Provider: Transfer Provider, Automatic - Reason: Patient not available)1120 ([facility] Unhold - Provider: Transfer Provider, Automatic) [...] immediately prior to dose being administered. 0653 (APR Hold - Provider: Transfer Provider, [...] severe pain, Starting on 10/04/24 at 1150 1156 (Given - Provider: Randolph Tripp LPN) oxyCODONE (ROXICODONE) immediate release tablet 5-10 mg (CANCELED) 5-10 mg, Oral, Every 4 hours PRN (may repeat), moderate to severe pain, Starting on 10/02/24 at 1041, Initiate with 5 mg oral [...] Priya Domínguez, KATERYNA)1442 (Given - Provider: Priya Domínguez, KATERYNA)2047 (Given - Provider: Fior Kelly RN) 0233 (Given - Provider: Fior Kelly RN)0638 (Given - Provider: Fior Kelly RN)0653 (APR Hold - Provider: Transfer Provider, Automatic - Reason: Patient not available)1120 (APR Unhold - Provider: Transfer Provider, Automatic) PHENobarbital injection 65 mg 65 mg, Intramuscular, Every 6 hours PRN, Two of the following: SBP greater than 160 or DBP greater than 100, Significant agitation (RASS greater than +2), HR greater than 110, Diaphoresis, tremors, Hallucinations, Starting on Sat10/02/24 at 1343, For 102 hours, VESICANT 0653 (APR Hold - Provider: Transfer Provider, [...] mL, Intravenous, Once in imaging, contrast, Per computer forensic examiner (Radiology) for line patency check prior to contrast administration, Starting on Sat10/02/24 at 1035, For 1 dose 1415 (Canceled Entry - Provider: Elo Campbell RN) 0653 (APR Hold - Provider: Transfer Provider, Automatic - Reason: Patient not available)1120 ([facility] Unhold - Provider: Transfer Provider, Automatic) sodium chloride (PF) (NS) 0.9 % contrast line flush 80 mL (COMPLETED)(Linked Group 6) 80 mL, Intravenous, Once in imaging, contrast, Per computer forensic examiner (Radiology), Starting on Sat10/02/24 at 1035, For 1 dose, 30 mL BEFORE contrast administration 50 mL AFTER contrast administration 1036 (Given - Provider: Lraisa Villafuerte, TECHNOLOGIST) sodium chloride (PF) (NS) flush 5 [...] 301.2 mg = 4 mg/kg 75.3 kg [place] weight), Intramuscular, Once, On Sat10/02/24 at 1430, [...] 225.9 mg = 3 mg/kg 75.3 kg [place] weight), Intramuscular, Every 3 hours, First dose [...] mL, Intravenous, Once in imaging, contrast, Per computer forensic examiner (Radiology) for line patency check prior to contrast administration, Starting on Sat10/02/24 at 1035, For 1 dose And sodium chloride (PF) (NS) 0.9 % contrast line flush 80 mL (COMPLETED)Jump to med 80 mL, Intravenous, Once in imaging, contrast, Per computer forensic examiner (Radiology), Starting on Sat10/02/24 at 1035, For [...] mg (COMPLETED) 5 mg, Intravenous, Once, On 10/04/24 at 1850, For 1 dose, VESICANT 185 (Given - Provider: Ramos Car RN) enoxaparin (LOVENOX) syringe 30 mg 30 mg, Subcutaneous, 2 times daily, First dose on Sat10/04/24 at 2125, Administer in abdomen unless otherwise directed by prescriber. Notify physician if patient refuses., Indication: VTE Prophylaxis 2225 (Given - Provider: Jeremias Huff RN) 0835 (Given - Provider: Tabitha Kaufman RN) folic acid (FOLVITE) tablet 1 mg 1 mg, Oral, Every morning, First dose on Sat10/04/24 at 2130 2353 (Given - Provider: Ramos Car, KATERYNA) 0835 (Not Given - Provider: Tabitha Kaufman RN - Reason: Other) HYDROmorphone (DILAUDID) injection 0.5 mg (COMPLETED) 0.5 mg, Intravenous, Once, On 10/04/24 at 1850, For 1 dose 1852 (Given - Provider: Ramos Car RN) ketorolac [...] 135.54 mg = 1.8 mg/kg 75.3 kg [place] weight), Intramuscular, Every 3 hours, First dose [...] Fractures), concurrent benzodiazepine therapy or hepatic dysfunction 2350 (Given - Provider: Ramos Car RN) 033 (Given - Provider: Olimpia Yanez RN) PHENobarbital injection 182 mg (COMPLETED)(Linked Group 1) 182 mg (rounded from 180.72 mg = 2.4 mg/kg 75.3 kg [place] weight), Intramuscular, Once, On Sat10/04/24 at 2125, [...] Oral, 2 times daily, First dose on 10/04/24 at 2124, NOT for abdominal surgery patients. [...] Every 8 hours scheduled, First dose on 10/04/24 at 2200, Saline lock 2229 (Given - [...] PRN, muscle spasms, Starting on 10/04/24 at 0 naloxone (NARCAN) injection 0.1 mg(Linked Group 3) 0.1 mg, Intravenous, As needed, opioid reversal, For respiratory rate less than or equal to 8 per minute., Starting on 10/04/24 at 0, Mix nalOXone (NARCAN) 0.4 mg (1mL) with [...] PRN, nausea, vomiting, Starting on 10/04/24 at 2118, [] Oral or IV - use oral route if tolerated. ondansetron (ZOFRAN-ODT) disintegrating tablet 4 mg(Linked Group 4) 4 mg, Oral, Every 6 hours PRN, nausea, vomiting, Starting on 10/04/24 at 2118, [] Oral or IV - use oral route if tolerated. Formulation requires tablet remain in sealed package until immediately prior to dose being administered. oxyCODONE (ROXICODONE) 10 mg/0.5 mL concentrated solution 5 mg 5 mg, Sublingual, Every 4 hours PRN, moderate to severe pain, Starting on Sat10/04/24 at 2145 2225 (Given - Provider: Jeremias Huff RN) 0338 [...] Diaphoresis, tremors, Hallucinations, Starting on 10/04/24 at 2122, For 102 hours, VESICANT sodium chloride (PF) [...] 180.72 mg = 2.4 mg/kg 75.3 kg [place] weight), Intramuscular, Once, On Sat10/04/24 at 2124, [...] 135.54 mg = 1.8 mg/kg 75.3 kg [place] weight), Intramuscular, Every 3 hours, First dose [...] Oral, Every 24 hours, First dose on [facility] 10/08/24 at 0325, For 1 dose Group 2: Saline lock IV (CANCELED) Routine, Continuous, Starting on [place] 10/04/24 at 2119, Until Specified And sodium chloride (PF) (NS) flush 5 mLJump to med 5 mL, Intravenous, As needed, line care, Starting on [place] 10/04/24 at 2117 And sodium chloride (PF) (NS) flush 5 mLJump to med 5 mL, Intravenous, Every 8 hours scheduled, First dose on [place] 10/04/24 at 2200, Saline lock And sodium chloride 0.9% (NS)Jump to med 0-150 mL/hr, Intravenous, As needed, To flush line after IV infusions when no maintenance IV ordered or a compatibility issue. Infuse 20ml at the same rate as the secondary infusion, Starting on [place] 10/04/24 at 2117, Run as Primary IV. NOT intended for KVO. Group 3: naloxone (NARCAN) injection 0.1 mgJump to med 0.1 mg, Intravenous, As needed, opioid reversal, For respiratory rate less than or equal to 8 per minute., Starting on [place] 10/04/24 at 2119, Mix nalOXone (NARCAN) 0.4 mg (1mL) with 9 mL of Normal Saline to total 10 mL. Administer 0.1 mg (2.5mL) IV Push every 2 minutes until respiratory rate is 10 or greater. And Notify physician (CANCELED) STAT, Until discontinued, Starting on [place] 10/04/24 at 2124, Until Specified, Respiratory rate less than: 8, For respiratory rate less than or equal to 8, notify physician and/or appropriate staff for additional orders. And naloxone (NARCAN) injection 0.4 mgJump to med 0.4 mg, Intravenous, As needed, opioid reversal, patient is pulseless, breathless, and unresponsive, Starting on [place] 10/04/24 at 2119, Call a code first, then administer naloxone dose undiluted IV Push over 30 seconds. Group 4: ondansetron (ZOFRAN-ODT) disintegrating tablet 4 mgJump to med 4 mg, Oral, Every 6 hours PRN, nausea, vomiting, Starting on Sat10/04/24 at 2118, [] Oral or IV - use oral route if tolerated. Formulation requires tablet remain in sealed package until immediately prior to dose being administered. Or ondansetron (ZOFRAN) injection 4 mgJump to med 4 mg, Intravenous, Every 6 hours PRN, nausea, vomiting, Starting on Sat10/04/24 at 2118, [] Oral or IV - use oral [...] Auguste LPN)1523 (Given - Provider: Kaitlyn Auguste LPN)2027 (Given - Provider: Ashtyn Hawkins LPN) 1004 (Given - Provider: Kaitlyn Auguste LPN)1513 (Given - Provider: Kaitlyn Auguste LPN) acetaminophen (TYLENOL) tablet 650 mg 650 mg, Oral, Every 4 hours, First dose (after last modification) on Sat10/09/24 at 0400 0400 (Not Given - Provider: Lor Holm LPN - Reason: Patient/family refused)1037 (Given - Provider: Jesus Barahona RN)1329 (Given - Provider: Jesus Barahona RN)1609 (Given - Provider: Jesus Barahona RN)2108 (Given - Provider: Lor Holm LPN) 0011 (Given - Provider: Lor Holm LPN)0511 (Given - Provider: Lor Holm LPN)0800 (Not Given - Provider: Kaitlyn Auguste LPN - Reason: Contraindicated)1247 (Given - Provider: Kaitlyn Auguste LPN)1523 (Given - Provider: Kaitlyn Auguste LPN)2025 (Given - Provider: Ashtyn Hawkins LPN) 0047 (Given - Provider: Ashtyn Hawkins LPN)0518 (Given - Provider: Ashtyn Hawkins LPN)1004 (Given - Provider: Kaitlyn Auguste LPN)1309 (Given - Provider: Kaitlyn Auguste LPN)1600 (Not Given - Provider: Kaitlyn Auguste LPN - Reason: Contraindicated) amoxicillin-clavulanate (AUGMENTIN) 875-125 mg per tablet 1 tablet 1 tablet, Oral, Every 12 hours scheduled, First dose on Sat10/09/24 at 2100, For 7 days, Indication: Skin/Soft Tissue Infection 2113 (Given - Provider: Lor Holm LPN) 0823 [...] - Provider: Jesus Barahona RN - Reason: Other)210 (Given - Provider: Lor Holm LPN) 0823 (Given - Provider: Kaitlyn Auguste LPN)1248 (Given - Provider: Kaitlyn Auguste LPN)1700 (Given - Provider: Kaitlyn Auguste LPN)202 (Given [...] Prophylaxis 1037 (Given - Provider: Jesus Barahona RN)210 (Given - Provider: Lor Holm LPN) 0823 (Given - Provider: Kaitlyn Auguste LPN)2026 (Given - Provider: Ashtyn Hawkins LPN) 0900 [...] down tube, flush tube with 10ml saline. 2107 (Given - Provider: Lor Holm LPN) 0824 (Given - Provider: Kaitlyn Auguste LPN)2024 (Given - Provider: Ashtyn Hawkins LPN) 1004 [...] 225.9 mg = 3 mg/kg 75.3 kg [place] weight), Oral, Every 3 hours, First dose [...] 225.9 mg = 3 mg/kg 75.3 kg [place] weight), Oral, Every 3 hours, First dose [...] 301.2 mg = 4 mg/kg 75.3 kg [place] weight), Oral, Once, On Sat10/09/24 at 0130, [...] Oral, 2 times daily, First dose on Kendra 10/08/24 at 2100, NOT for abdominal surgery patients. Hold for loose stools. Do Not Crush or Chew if administering orally due to bitter taste. May be crushed if given via tube. 1037 (Given - Provider: Jesus Barahona RN)8 (Given - Provider: Lor Holm LPN) 0823 (Given - Provider: Kaitlyn Auguste LPN)2024 (Given - Provider: Ashtyn Hawkins LPN) 1005 (Given - Provider: Kaitlyn Auguste LPN) sodium chloride (PF) (NS) flush 5 mL(Linked Group 3) 5 mL, Intravenous, Every 8 hours scheduled, First dose on Kendra 10/08/24 at 1645, Saline lock 0600 (Canceled Entry [...] Daily (in the afternoon), First dose on Kendra 10/08/24 [...] 6 hours PRN, mild pain, Starting on Kendra 10/08/24 at 0233, Give with Food Do Not [...] pain, Starting on Kendra 10/08/24 at 1649 0001 (Given - Provider: Lor [...] care, Starting on Kendra 10/08/24 at 1637 sodium chloride 0.9% (NS)(Linked Group [...] 301.2 mg = 4 mg/kg 75.3 kg [place] weight), Oral, Once, On Sat10/09/24 at 0130, [...] 225.9 mg = 3 mg/kg 75.3 kg [place] weight), Oral, Every 3 hours, First dose [...] 225.9 mg = 3 mg/kg 75.3 kg [place] weight), Oral, Every 3 hours, First dose [...] Akins RN - Comment: med not on floor)2023 (Given - Provider: Romelia Grove RN) 0900 (Not Given - Provider: Arnie Akins RN - Reason: Transfer to a Procedural area)0924 (MAR Hold - Provider: Transfer Provider, Automatic - Reason: Patient not available)1242 (APR Unhold - Provider: Transfer Provider, Automatic)1500 (Due) ampicillin-sulbactam (UNASYN) 3000 mg in sodium chloride (NS) 0.9% 100 mL MBP 3,000 mg, Intravenous, at 100 mL/hr, Every 6 hours, First dose on Sat10/12/24 at 1700, Indication: Skin/Soft Tissue Infection 1727 (New Bag - Provider: Key Daniel, KATERYNA)1841 (Stopped - Provider: Key Daniel, KATERYNA) 0039 (New Bag - Provider: Sonia Mcduffie, KATERYNA)0156 (Stopped - Provider: Sonia Mcduffie, KATERYNA)0534 (New Bag - Provider: Sonia Mcduffie RN)0900 (Stopped - Provider: Arnie Akins RN)1220 (New Bag - Provider: Arnie Akins RN - Comment: pt unavailable)1320 (Stopped - Provider: Arnie Akins RN)1718 (New Bag - Provider: Arnie Akins RN)2050 (Stopped - Provider: Romelia Grove RN)2300 (Not Given - Provider: Romelia Grove RN - Reason: Patient/family refused) 0532 (New Bag - Provider: Romelia Grove RN)0642 (Stopped - Provider: Romelia Grove RN)0924 (APR Hold - Provider: Transfer Provider, Automatic - Reason: Patient not available)1100 (Automatically Held - Provider: Transfer Provider, Automatic)1242 (MAR Unhold - Provider: Transfer Provider, Automatic) ampicillin-sulbactam [...] pt unvailable)1713 (Given - Provider: Arnie Akins RN)2021 (Given - Provider: Romelia Grove RN) 0900 (Not Given - Provider: Arnie Khachaturyan, RN - Reason: Transfer to a Procedural area)0924 (APR Hold - Provider: Transfer Provider, Automatic - Reason: Patient not available)1242 ([facility] Unhold - Provider: Transfer Provider, Automatic)1429 (Given - Provider: Key Gutierrez) enoxaparin (LOVENOX) syringe 30 mg 30 mg, Subcutaneous, 2 times daily, First dose on Sat10/13/24 at 0900, Administer in abdomen unless otherwise directed by prescriber. Notify physician if patient refuses., Indication: VTE Prophylaxis 09 (Not Given - Provider: Arnie Akins RN - Reason: Patient/family refused)2100 (Not Given - Provider: Romelia Grove RN - Reason: Patient/family refused) 09 (Not Given - Provider: Arnie Akins RN - Reason: Patient/family refused)24 ([facility] Hold - Provider: Transfer Provider, Automatic - Reason: Patient not available)124 ([facility] Unhold - Provider: Transfer Provider, Automatic) folic acid (FOLVITE) tablet 1 mg 1 mg, Oral, Daily, First dose on Sat10/13/24 at 1000 1213 (Given - Provider: Arnie Akins RN - Comment: pt unavailable) 0900 (Due)0924 ([facility] Hold - Provider: Transfer Provider, Automatic - Reason: Patient not available)1242 ([facility] Unhold - Provider: Transfer Provider, Automatic) multivitamin (THERAGRAN) per tablet 1 tablet 1 tablet, Oral, Daily, First dose on Sat10/13/24 at 1000 1213 (Given - Provider: Arnie Akins RN - Comment: pt unavailable) 0900 (Due)0924 ([facility] Hold - Provider: Transfer Provider, Automatic - Reason: Patient not available)1242 ([facility] Unhold - Provider: Transfer Provider, Automatic) [...] dose 1714 (New Bag - Provider: Key Daniel RN)1841 (Stopped - Provider: Key Daniel RN) thiamine [...] Sat10/12/24 at 1800, Indication: Skin/Soft Tissue Infection 184 (New Bag - Provider: Key Daniel RN)2007 (Stopped - Provider: Ludwin Tucker RN) 023 (New Bag - Provider: Sonia Mcduffie RN)09 (New Bag - Provider: Arnie Akins RN)104 (Stopped - Provider: Arnie Akins RN)2006 (New Bag - Provider: Romelia Grove RN - Comment: med not on the floor)2049 (Stopped - Provider: Romelia Grove RN) 040 (New Bag - Provider: Romelia Grove RN)0530 (Stopped - Provider: Romelia Grove RN)0924 (APR [...] Leia Fernandez CRNA)1149 (Stopped - Provider: Esme Parks RN) PRN Medication Order 10/12/2024 10/13/2024 10/14/2024 acetaminophen [...] available)1242 (APR Unhold - Provider: Transfer Provider, Automatic)1417 (Given [...] using lozenge. DO NOT CRUSH OR CHEW. 0924 (MAR Hold - Provider: Transfer Provider, Automatic - Reason: Patient not available)1242 (MAR Unhold - Provider: Transfer Provider, Automatic) ondansetron (ZOFRAN) injection 4 mg(Linked Group 2) 4 mg, Intravenous, Every 6 hours PRN, nausea, vomiting, Starting on Sat10/12/24 at 2152, [] Oral or IV - use oral route if tolerated. 923 ([facility] Hold - Provider: Transfer Provider, Automatic - Reason: Patient not available)124 ([facility] Unhold - Provider: Transfer Provider, Automatic) ondansetron (ZOFRAN-ODT) disintegrating tablet 4 mg(Linked Group 2) 4 mg, Oral, Every 6 hours PRN, nausea, vomiting, Starting on Sat10/12/24 at 2152, [] Oral or IV - use oral route if tolerated. Formulation requires tablet remain in sealed package until immediately prior to dose being administered. 923 ([facility] Hold - Provider: Transfer Provider, Automatic - Reason: Patient not available)124 ([facility] Unhold - Provider: Transfer Provider, Automatic) [...] at 2152 2209 (Given - Provider: Ludwin Tucker RN) 1246 (Given - Provider: Arnie Akins RN)1607 (Given - Provider: Arnie Akins RN)2325 (Given - Provider: Ashli Mendes RN) 0351 (Given - Provider: Romelia Grove RN)09 ([facility] Hold - Provider: Transfer Provider, Automatic - Reason: Patient not available)1242 (APR Unhold - Provider: Transfer Provider, Automatic) PHENobarbital [...] line care, Starting on Sat10/13/24 at 2007 923 (APR Hold - Provider: Transfer Provider, [...] (APR Unhold - Provider: Transfer Provider, Automatic) traZODone (DESYREL) tablet 50 mg 50 mg, Oral, Nightly PRN, sleep, Starting on Sat10/13/24 at 0907 2023 (Given - Provider: Romelia Grove RN) 0924 (APR Hold - Provider: Transfer Provider, Automatic - Reason: Patient not available)1242 (APR Unhold - Provider: Transfer Provider, Automatic) No [...] BE BASED ON THE PRIMARY CLINICAL RECORDS. [facility] [employer] [facility]. provides no warranty or guarantee of the accuracy or completeness of information in this document.
--- NOTE | 2024-10-18 16:14 | EKG12_ITS ---
Test Reason : DETOX Blood Pressure : */* mmHG Vent. Rate : 94 BPM Atrial Rate : 94 BPM P-R Int : 122 ms QRS Dur : 84 ms QT Int : 350 ms P-R-T Axes : 61 73 19 degrees QTcB Int : 437 ms Normal sinus rhythm Normal ECG Confirmed by Rafael Brooks ([id number]), editor at large KELSEY BISHOP ([id number]) on 10/19/2024 9:52:49 AM Referred By: Confirmed By: Rafael Brooks
--- NOTE | 2024-10-18 16:14 | EDS_ITS ---
HPI History of Present Illness Chief Complaint: Substance Abuse PFSH PFSH Medical History Substance abuse Depression Smoker Anxiety and depression Alcohol dependence Asthma Migraines Polysubstance abuse Tobacco abuse Alcohol abuse Home Medications ?Medication ?Instructions ?Recorded ?Last Taken ?Type amoxicillin 400 mg-potassium ml PO facial infection Unknown History clavulanate 57 mg/5 mL oral suspension chlorhexidine gluconate 0.12 % jaw surgery 10/18/24 Un known History mouthwash oxycodone 5 mg tablet 5 mg PO Q6H PRN pain 1 day # 4 tabs 10/18/24 Unknown Rx Allergy/AdvReac Type Severity Reaction Status Date / Time No Known Allergies Allergy Verified 10/18/24 15:58 Family History Uncle Alcohol abuse Paternal uncles. Grandfather Alcohol abuse Mother No problems noted. Father No problems noted. Surgical History No history of previous surgery Social History household members: none Smoking Status: Current every day smoker tobacco type: cigarettes and e- cigarettes alcohol intake: current details: 10 24 ounce beers daily and hard liquor shots substance use type: crack/cocaine and amphetamines EXAM Physical Exam Const Vital Signs: 10/18/24 15:58 10/18/24 16:58 10/18/24 17:00 Temperature 97.6 F L Temperature Source Temporal Pulse Rate 112 H 101 H 98 Respiratory Rate 18 18 18 Blood Pressure 105/83 H 103/50 L 103/50 L Blood Pressure Mean 90 67 67 Pulse Ox 100 99 100 Oxygen Delivery Method Room Air Room Air Room Air 10/18/24 18:00 10/18/24 18:23 Temperature 98.9 F 98.9 F Temperature Source Oral Pulse Rate 90 90 Respiratory Rate 16 16 Blood Pressure 123/68 H 123/68 H Blood Pressure Mean 86 86 Pulse Ox 100 100 Oxygen Delivery Method Room Air MDM MDM MDM Narrative Medical decision making narrative: HISTORY OF PRESENT ILLNESS: Chief complaint: alcohol detox 28 M hx of alcohol abuse, polysubstance abuse presents for EtOH detox. Notes he drinks proximately 15 tall boys a day. Last drink was yesterday. Also notes he uses cocaine. Denies headache, chest pain notes pain for recent mandibular fracture site. Denies abdominal pain. Denies vomiting. Denies shortness of breath or cough. REVIEW OF SYSTEMS: Pertinent positives: Alcohol detox Pertinent negatives: As per HPI PHYSICAL EXAM: Nursing triage notes reviewed, Vital signs reviewed Constitutional: please see [facility] HENT: MMM Eyes: Pupils equal round and reactive to light, Extraocular muscles intact Neck: No stridor, no JVD, full neck ROM Lungs: Clear to auscultation, No wheezing or rales. No increased work of breathing, no conversational dyspnea, no accessory muscle use, no nasal flaring. No respiratory distress noted Heart: Regular rate and rhythm, No murmurs, No rubs and No gallops, 2+ distal pulses (radial, femoral, posterior tibial) in all extremities Abdomen: Soft, there is no tenderness, rigidity, rebound or guarding, no obvious peritoneal signs, no palpable pulsatile abdominal masses, no auscultated abdominal bruit : No CVAT Extremities: No edema Neuro: No new focal neurological deficits, cranial nerves II through XII intact, 5/5 strength in all present extremities. Intact sensation to light touch in all present extremities, 2+ reflexes bilateral patella tendons. Skin: Well-healed surgical scars noted over bilateral mandibles. MEDICAL DECISION MAKING: Chief Complaint: please see HPI External records reviewed: Reviewed prior detox admission from 10/02/2024 Factors affecting care: As per [facility] Social determinants of health: History obtained from others: none Consults: Hospitalist (Dr. Reece) [facility] Narrative: Patient was initially mildly tachycardic at a heart rate of 112 otherwise afebrile and nontoxic-appearing. Exam with surgical scars are clean dry and intact from recent mandibular fracture and surgery. Otherwise unremarkable. Patient had volitional tremors in left upper extremity only. I obtained to further determine if the patient was suffering from a life- threatening etiology. ALL IMAGES (IF OBTAINED) HAVE BEEN PERSONALLY REVIEWED AND INTERPRETED BY MYSELF. EKG with normal sinus rhythm rate of 94, normal axis, normal intervals, no STEMI Urine tox cream positive for opiates, barbiturates, amphetamines, benzodiazepines and cocaine BMP with mild metabolic acidosis bicarb 19.8, also elevated anion gap of 17 suggestive of endorgan hypoperfusion likely secondary to poor nutrition and likely alcoholic ketoacidosis CBC without leukocytosis, severe anemia, no thrombocytopenia. Patient was medically cleared. He was excepted by our hospitalist to the right program for alcohol detoxification. The patient and/or family, caregivers express understanding. The patient and/or family, caregivers agrees with the plan. Shared decision making: I will have a discussion with the patient and or visitors regarding risk/benefits of further testing or admission. They will be made aware of of the risk/benefits inherent in this decision they will be given the opportunity to voice understanding. Total critical care time today provided was at least 0 minutes. This excludes separately billable procedures. Critical care time (if documented) is secondary to the patient having high probability of clinically significant/life threatening deterioration in the patient's condition which required my urgent intervention. Impression: 1. Encounter for alcohol detoxification 2. History of alcohol abuse 3. Polysubstance abuse Dispo: Admit to [facility] via [facility] program This note was generated with Trustribe[employer] software. It may contain incorrect words, spelling, and punctuation that were not noted in review of the chart prior to signing. Lab Data Labs: Laboratory Results - last 24 hr 10/18/24 10/18/24 16:45 16:57 WBC 10.3 RBC 4.35 L Hgb 14.8 Hct 42.0 MCV 96.6 H MCH 34.0 H MCHC 35.2 RDW Std Deviation 42.9 RDW Coeff of Jessica 12.2 Plt Count 536 H MPV 8.9 Immature Gran % (Auto) 0.400 Neut % (Auto) 81.9 H Lymph % (Auto) 11.1 L Marshall % (Auto) 5.0 Eos % (Auto) 0.5 Baso % (Auto) 1.1 H Absolute Neuts (auto) 8.5 H Absolute Lymphs (auto) 1.14 Nucleated RBC % 0 Sodium 138 Potassium 4.7 Chloride 101 Carbon Dioxide 19.8 L Anion Gap 17 H BUN 9 Creatinine 0.66 L Estim Creat Clear Calc 179.06 Est GFR (MDRD) Non-Af 132 BUN/Creatinine Ratio 13.3 Glucose 70 Calcium 9.1 Urine Color Yellow Urine Clarity Clear Urine pH 5.0 Ur Specific [place] 1.025 Urine Protein 30 H Urine Glucose (UA) Normal Urine Ketones 50 H Urine Occult Blood Negative Urine Nitrite Negative Urine Bilirubin Negative Urine Urobilinogen Normal Ur Leukocyte Esterase Negative Urine RBC 0 SEEN Urine WBC 0 SEEN Ur Squamous Epith Cells 0 SEEN Urine Bacteria 0 SEEN Urine Mucus 0 SEEN Urine Opiates Screen PRESUMPTIVE POSITIVE U Buprenorphine Qual NEGATIVE Ur Oxycodone Screen NEGATIVE Urine Methadone Screen NEGATIVE Urine Fentanyl Screen NEGATIVE Ur Barbiturates Screen PRESUMPTIVE POSITIVE Ur Phencyclidine Scrn NEGATIVE Ur Amphetamines Screen PRESUMPTIVE POSITIVE U Benzodiazepines Scrn PRESUMPTIVE POSITIVE Urine Cocaine Screen PRESUMPTIVE POSITIVE U Cannabinoids Screen NEGATIVE Ethyl Alcohol < 10.1 Discharge Plan Disposition Disposition: Acute Care Hospital [facility] Discharge Date/Time: 10/18/24 18:55
[2024-10-18 16:58] VITALS: BP 103/50; PULSE 101; RESP 18; O2SAT 99
[2024-10-18 17:00] VITALS: BP 103/50; PULSE 98; RESP 18; O2SAT 100
[2024-10-18 17:04] LABS: Hematocrit 42.0 % (40-54); Hemoglobin 14.8 g/dL (13.0-16.5); Immature Granulocytes Count 0.040 X10^3/uL (0.0-0.0); Mean Corp Hgb Conc 35.2 g/dL (32-36); Mean Corpuscular Volume 96.6 fL (80-94); Mean Platelet Vol. 8.9 fl (6.2-12.0); NRBC Flagged by Analyzer 0 % (0-5); Platelet Count 536 K/mm3 (150-450); RBC Distribution Width CV 12.2 % (11.6-14.6); RBC Distribution Width SD 42.9 fl (35.1-43.9); Red Blood Count 4.35 M/mm3 (4.6-6.2); White Blood Count 10.3 K/mm3 (4.4-11.0)
[2024-10-18 17:26] LABS: Anion Gap 17 (5-15); BUN 9 mg/dL (4-19); BUN/Creat Ratio 13.3 RATIO (10-20); Calcium,Total 9.1 mg/dL (7.6-11.0); Carbon Dioxide 19.8 mmol/L (21.0-32.0); Chloride 101 mmol/L (98-108); Estimated Creatinine Clearance 179.06 ml/min (50-250); Glucose 70 mg/dL (70-99); Potassium 4.7 mmol/L (3.3-5.1)
[2024-10-18 17:30] LABS: Barbiturate Urine PRESUMPTIVE POSITIVE (< 200 ng/mL); Benzodiazepine Urine PRESUMPTIVE POSITIVE (< 200 ng/mL); PCP Urine NEGATIVE (< 25 ng/mL); THC Urine NEGATIVE (< 50 ng/mL)
[2024-10-18 17:39] LABS: Alcohol, Blood (Medical)-Serum < 10.1 mg/dL (<=10.0)
[2024-10-18] MEDS: 0.9% Normal Saline (1000mL) 1,000 ML 999 ML IV (17:53)
[2024-10-18 18:00] VITALS: BP 123/68; PULSE 90; RESP 16; TEMP 37.2; O2SAT 100
[2024-10-18 18:23] VITALS: BP 123/68; PULSE 90; RESP 16; TEMP 37.2; O2SAT 100
--- OUTSIDE RECORDS SUMMARY | 2024-10-18 18:29 | XMS RPT_ITS | CCD ---
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 [place], [address] PT Coag (PPP) [Time] 12.0 s Normal 11.7-14.9 [facility] [place] [facility] Comment on above: Performed By: #### L 100.0100, L300.4310, L501.9100, L500.2500, L300.3900 #### [facility] [address] [place], [address] Prothrombin timeOrdered By: Colin Colon on 10-02-2024 PT Coag (PPP) [Time] 12.0 s 11.7-14.9 [facility] [place] [facility] RBC Auto (Bld) [#/Vol]Ordere d By: Colin Colon on 10-02-2024 RBC (Bld) [#/Vol] 4.44 10*6/uL Low 4.6-6.2 [facility] Serum creatinine measurement (mass/volume)Ordered By: Colin Colon on 10-02-2024 Creatinine [Mass/Vol] 0.58 mg/dL Low 0.70-1.20 [facility] Serum glucose measurement (m ass/volume)Ordered By: Colin Colon on 10-02-2024 Glucose [Mass/Vol] 108 mg/dL High 70-99 [facility] Serum or plasma calcium gaetano urement (mass/volume)Ordered By: Colin Colon on 10-02-2024 Calcium [Mass/Vol] 8.9 mg/dL 7.6-11.0 [facility] Serum or plasma ethanol gaetano urement (mass/volume)Ordered By: Colin Colon on 10-02-2024 Ethanol [Mass/Vol] 165.0 mg/dL High <10.1 [facility] Comment on above: This test is for med ical purposes only. The legal definition of intoxication varies according to local law. Serum or plasma urea nitroge n measurement (mass/volume)Ordered By: Colin Colon on 10-02-2024 Urea nitrogen [Mass/Vol] 4 mg/dL 4- [facility] Sinus/Facial Boneon 10-03-19 25 Sinus/Facial Bone [facility] Imaging Services [address] [place] [address] Sinus/Facial Bone MR#: [id number] Acct: [id number] Name: KADE GONZALEZ Rep #: [id number] : 1995 M 28 From: Brianna maxwell MD PCP: Care Physician,No Primary Status: REG ER Study: Sinus/Facial Bone Date of Exam: 10/02/24 Exam# [id number] Ordering Dr: Colin Colon DO PROCEDURE: SINUS/FACIAL [...] master intramuscular hematoma as detailed. 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 Normal [facility] Sodium levelOrdered By: Epi Colon on 10-02-2024 Sodium [Moles/Vol] 139 mmol/L 133-145 [facility] Spine Cervical without Contr ason 10-02-2024 Spine Cervical without Contras [facility] Imaging Services [address] [place] [address] Spine Cervical without Contras MR#: [id number] Acct: [id number] Name: KADE GONZALEZ Rep #: [id number] : 1995 M 28 From: Brianna maxwell MD PCP: Care Physician,No Primary Status: REG ER Study: Spine Cervical without Contras Date of Exam: 0 10/02/24 Exam# [id number] Ordering Dr: Colin Colon DO PROCEDURE: SPINE [...] an acute fracture or dislocation. 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 [id number] White blood cell (WBC) count Ordered By: Colin Colon on 10-02-2024 WBC (Bld) [#/Vol] 10.3 10*3/uL 4.4-11.0 [facility] H AND P Exam - Hospitaliston 10-01-2024 H&P Exam - Hospitalist [facility] Medical Records Department [address] [place] [address] H P Exam - Hospitalist 10/01/24 0151 MR#: [id number] Acct: [id number] Name: KADE GONZALEZ Rep #: [id number] : 1995 28 From: Jacquie Beckwith MD PCP: Care Physician,No Primary Status:ADM [place] Location: [facility] [id number] HPI - General General Date of Admission: [...] court date with then referral to [facility]; however, unfortunately instead of [...] for transition to avoid alcohol withdrawal symptoms. PFSH Medical History Substance abuse Depression Smoker [...] Awake, a (more content not included)... Normal [facility] Magnesiumon 10-01-2024 Magnesium [Mass/Vol] 1.8 mg/dL Normal 1.5-2.2 [facility] [place] [facility] Comment on above: Performed By: #### L 501.5200, L501.2300 #### [facility] Laboratory [address] [place], [address] Magnesium measurement (mass/ volume)Ordered By: Jacquie Beckwith on 10-01-2024 Magnesium (Unsp spec) [Mass/Vol] 1.8 mg/dL 1.5-2.2 [facility] Phosphoruson 10-01-2024 Phosphate [Mass/Vol] 4.7 mg/dL High 2.7-4.5 [facility] [place] [facility] Comment on above: Performed By: #### L 501.5200, L501.2300 #### [facility] Laboratory [address] [place], [place], [id number] ACETAMINOPHENon 09-30-2024 Acetaminophen [Mass/Vol] ug/mL Low 10.0 - 30.0 [facility] Comment on above: Performed By: #### 2 83378 #### [facility],[address] [place] [address] ALCOHOL-BLOOD MEDICALon 09-12 Ethanol [Mass/Vol] 94 mg/dL High 0 - 50 [facility] Comment on above: Performed By: #### 2 08480 #### [facility],[address] [place] [address] CBC + DIFFon 09-30-2024 Baso # 0.01 x10EE3/UL Normal 0.00 - 0.10 [facility] Comment on above: Performed By: #### 2 29394 #### [facility],[address] [place] [address] Basophils/100 WBC (Bld) 0.2 % Normal 0.0 - 2.0 [facility] Comment on above: Performed By: #### 2 71867 #### [facility],[address] [place] [address] CBC + DIFF Normal [facility] Comment on above: Result Comment: CBC- COMPLETE BLOOD COUNT Performed By: #### 2 49024 #### [place] [address] EO # 0.14 x10EE3/UL Normal 0.00 - 0.50 [facility] Comment on above: Performed By: #### 2 92350 #### [facility],[address] [place] [address] Eosinophils/100 WBC (Bld) 2.3 % Normal 0.0 - 7.0 [facility] Comment on above: Performed By: #### 2 38219 #### [place] [address] Erythrocyte distribution width (RBC) [Ratio] 12.4 % Normal 12.0 - 15.6 [facility] Comment on above: Performed By: #### 2 67339 #### [place] [address] Hematocrit (Bld) [Volume fraction] 41.7 % Normal 40.0 - 52.0 [facility] Comment on above: Performed By: #### 2 11311 #### [place] [address] Hemoglobin (Bld) [Mass/Vol] 14.7 g/dL Normal 13.0 - 17.5 [facility] Comment on above: Performed By: #### 2 96823 #### [place] [id number] Lymph # 2.10 x10EE3/UL Normal 0.80 - 2.80 [facility] Comment on above: Performed By: #### 2 71707 #### [place] [id number] Lymphocytes/100 WBC (Bld) 36.3 % Normal 20.0 - 45.0 [facility] Comment on above: Performed By: #### 2 53492 #### [facility] [place] [address] MANUAL DIFF N/A Normal [facility] Comment on above: Performed By: #### 2 48505 #### [facility],[address] [place] [address] MCH (RBC) [Entitic mass] 35 pg High 27 - 33 [facility] Comment on above: Performed By: #### 2 96739 #### [facility],[address] [place] [address] MCHC 35 X10 3 Normal 32 - 36 [facility] Comment on above: Performed By: #### 2 02112 #### [facility],[address] [place] [address] MCV (RBC) [Entitic vol] 99 fL High 81 - 98 [facility] Comment on above: Performed By: #### 2 72444 #### [facility],[address] [place] [address] Dorado # 0.43 x10EE3/UL Normal 0.20 - 1.00 [facility] Comment on above: Performed By: #### 2 24640 #### [facility],[address] [place] [address] MONOS % 7.4 % Normal 0.0 - 10.0 [facility] Comment on above: Performed By: #### 2 69733 #### [facility],[address] [place] [address] Morphology Isacc (Bld) [Interp] N/A Normal [facility] Comment on above: Performed By: #### 2 87055 #### [facility],[address] [place] [address] Neut # 3.10 x10EE3/UL Normal 1.50 - 7.10 [facility] Comment on above: Performed By: #### 2 36897 #### [facility],[address],[place] [address] Neutrophils/100 WBC (Bld) 53.7 % Normal 46.0 - 76.0 [facility] Comment on above: Performed By: #### 2 33351 #### [facility],[address] [place] [address] PLATELET 251 x10EE3/UL Normal 150 - 450 [facility] Comment on above: Performed By: #### 2 28899 #### [facility],[address] [place] [address] Platelet mean volume (Bld) [Entitic vol] 7.8 fL Normal 6.4 - 10.5 [facility] Comment on above: Result Comment: AUTO MATED DIFFERENTIAL Performed By: #### 2 15083 #### [facility],[address] [place] [address] 62402 RBC 4.20 x 10EE6/UL Low 4.50 - 6.00 [facility] Comment on above: Performed By: #### 2 18915 #### [facility],[address] [place] [address] 90563 WBC 5.8 x 10EE3/UL Normal 4.5 - 10.8 [facility] Comment on above: Performed By: #### 2 32635 #### [facility],[address] [place] [address]64 CMP with eGFRon 09-30-2024 AGE 28 years Normal [facility] Comment on above: Performed By: #### 2 42615 #### [facility],[address] [place] [address] 38186 Albumin [Mass/Vol] 3.2 g/dL Low 3.4 - 5.0 [facility] Comment on above: Performed By: #### 2 43467 #### [facility],[address] [place] [address] 27965 Albumin/Globulin [Mass ratio] 1.0 {ratio} Normal 0.9 - 1.6 [facility] Comment on above: Performed By: #### 2 43659 #### [facility],[address] [place] [address] 97769 ALK PHOS 72 U/L Normal 46 - 116 [facility] Comment on above: Performed By: #### 2 65467 #### [facility],[address] [place] [address] 08272 ALT [Catalytic activity/Vol] 69 U/L High 16 - 63 [facility] Comment on above: Performed By: #### 2 04650 #### [facility],[address] [place] [address] 77088 Anion gap [Moles/Vol] 14 mmol/L Normal 10 - 20 [facility] Comment on above: Performed By: #### 2 39934 #### [facility],[address] [place] [address] 60333 AST [Catalytic activity/Vol] 38 U/L High 15 - 37 [facility] Comment on above: Performed By: #### 2 00242 #### [facility],[address] [place] [address] 24843 B/C RATIO 8 ratio Normal 0 - 30 [facility] Comment on above: Performed By: #### 2 39041 #### [facility],[address] [place] [address] 21705 Bilirubin [Mass/Vol] 0.3 mg/dL Normal 0.2 - 1.0 [facility] Comment on above: Performed By: #### 2 33309 #### [facility],[address] [place] [address] 83426 Calcium [Mass/Vol] 8.2 mg/dL Low 8.5 - 10.1 [facility] Comment on above: Performed By: #### 2 99665 #### [facility],[address] [place] [address] 99167 Chloride [Moles/Vol] 106 mmol/L Normal 98 - 107 [facility] Comment on above: Performed By: #### 2 70481 #### [facility],[address] [place] [address] 56857 CMP with eGFR Normal [facility] Comment on above: Result Comment: COMP REHENSIVE METABOLIC PANEL Performed By: #### 2 38910 #### [facility],[address] [place] [address] 59143 CO2 [Moles/Vol] 27.7 mmol/L Normal 21.0 - 32.0 [facility] Comment on above: Performed By: #### 2 76534 #### [facility],[address] [place] [address] Creatinine [Mass/Vol] 0.79 mg/dL Normal 0.70 - 1.30 [facility] Comment on above: Performed By: #### 2 06232 #### [facility],[address] [place] [address] GFR/1.73 sq M.predicted among non-blacks MDRD (S/P/Bld) [Vol rate/Area] mL/min/{1.73_m2} Normal 60 - 999 [facility] Comment on above: Performed By: #### 2 17543 #### [facility],[address] [place] [address] Result Comment: ACCO RDING TO THE NATIONAL KIDNEY DISEASE EDUCATION PROGRAM(NKDE), A NORMAL eGFR IS A VALUE GREATER THAN OR EQUAL TO 60 ML/MIN/1.73 SQ METERS. CHRONIC KIDNEY DISEASE: <60mL/MIN/1.73 SQ METERS KIDNEY FAILURE: <15mL/MIN/1.73 SQ METERS THIS TEST SHOULD ONLY BE USED FOR PATIENTS 18 YEARS OF AGE AND OLDER. Globulin (S) [Mass/Vol] 3.1 g/dL Normal 1.5 - 3.8 [facility] Comment on above: Performed By: #### 2 90901 #### [facility],[address] [place], [place] [address] Glucose [Mass/Vol] 106 mg/dL Normal 74 - 106 [facility] Comment on above: Performed By: #### 2 94221 #### [facility],[address] [place] [address]6497 Potassium [Moles/Vol] 3.7 mmol/L Normal 3.5 - 5.1 [facility] Comment on above: Performed By: #### 2 77621 #### [facility],[address] [place] [address] 09487 Protein [Mass/Vol] 6.3 g/dL Low 6.4 - 8.2 [facility] Comment on above: Performed By: #### 2 86072 #### [facility],[address] [place] [address] 17212 Sodium [Moles/Vol] 144 mmol/L Normal 136 - 145 [facility] Comment on above: Performed By: #### 2 33665 #### [facility],[address] [place] [address] 06955 Urea nitrogen [Mass/Vol] 6 mg/dL Low 7 - 18 [facility] Comment on above: Performed By: #### 2 88070 #### [facility],[address] [place] [address] 20143 DRUG SCREEN URINE MEDICon AMPHETAMINES Negative Normal [facility] Comment on above: Performed By: #### 2 52269 ####[facility],[address] [place] [address] 73095 B-DIAZEPINES Positive Normal [facility] Comment on above: Performed By: #### 2 31659 ####[facility],[address] [place] [address] 70757 BARBITURATES Positive Normal [facility] Comment on above: Performed By: #### 2 81153 ####[facility],[address] [place] [address] 81459 COCAINE Negative Normal [facility] Comment on above: Performed By: #### 2 37988 ####[facility],[address] [place] [address] 70532 DRUG SCREEN URINE MEDIC Normal [facility] Comment on above: Result Comment: DRUG SCREEN - URINE Performed By: #### 2 52155 ####[facility],[address] [place] [address] 10682 METHADONE Negative Normal [facility] Comment on above: Performed By: #### 2 60651 ####[facility],[address] [place] [address] 92264 OPIATES Negative [facility] Comment on above: Performed By: #### 2 86239 ####[facility],[address] [place] [address] 89534 PCP Negative [facility] Comment on above: Performed By: #### 2 85524 ####[facility],[address] [place] [address] 79918 THC Negative [facility] Comment on above: Result Comment: CHACORTA ENTS RECEIVING PROTON PUMP INHIBITORS MAY DEMONSTRATE FALSE POSITIVE THC/CANNABINOID RESULTS. AN ALTERNATIVE CONFIRMATORY METHOD SHOULD BE CONSIDERED TO VERIFY POSITIVE RESULTS. Performed By: #### 2 50295 ####[facility],[address] [place], [place] [address] ED MED ADMINISTRATION DETAIL on 09-30-2024 ED MED ADMINISTRATION DETAIL Fitter'S Assistant - KADE BARRERA, : 1995, , [place] [address] [id number] 09/29/2024 Patient: KADE BARRERA Sex: Male : 1995 Age: 28y MEASUREMENTS: Wt: 78.9 kg, Ht/Pedro: 71.0 in, BMI: 24.27 ALLERGIES: No known drug allergies Medication Ordered Medication Administration Date/Time 1 of 1 Normal [facility] ED NURSES CLINICAL NOTEon ED NURSES CLINICAL NOTE Nurse Narrative - KADE BARRERA, : 1995, , Nurse Clinical Narrative [address] [place] [address] [phone] 09/29/2024 22:27:00 Patient: KADE BARRERA Sex: Male [...] hurt yourself before today?. -- 22:48 09/29/24 EDT Ibis Silva R.N. 22:39 09/29/24. FALL RISK ASSESSMENT: Fall risk assessment completed. No risk factors identified. -- 22:49 09/29/24 EDHernandez Silva R.N. 2 of 4 Nurse Narrative - KADE BARRERA, : 1995, , Interventions 22:27 09/29/24. Advanced care plan discussed with patient. Patient does not have advanced directive. -- 22:48 09/29/24 EDHernandez Silva R.N. PHYSICAL ASSESSMENT 23:32 09/29/24. GENERAL [...] 23:37 09/29/24 EDT Juanita Altman 00:51 09/30/24. Mental Health Program Director at the patient's bedside (crisis). -- 01:16 09/30/24 EDT Sandra Olguin R.N. DISPOSITION / DISCHARGE Departure time: 01:32 09/30/2024. Condition at departure: improved. No learning barriers present. Discharge instructions provided and reviewed with the patient. Reviewe (more content not included)... Normal [facility] ED ORDER SHEET (CPOE ONLY)on 09-30-2024 ED ORDER SHEET (CPOE ONLY) Order Sheet - KADE BARRERA, : 1995, , Order Sheet [address] [place] [address] [id number] 09/29/2024 Patient: KADE BARRERA Sex: Male : 1995 Age: 28y MEASUREMENTS: Wt: 78.9 kg, Ht/Pedro: 71.0 in, BMI: 24.27 ALLERGIES: No known drug allergies MEDICATION/IV/DRIP/FLUI D ORDERS Order Description Priority Entered Acknowledged Completed LAB ORDERS Order Description Priority Entered Acknowledged Collected Completed Drug Screen Urine Stat 22:38 09/29/2024 23:17 09/29/2024 23:18 09/29/2024 Medic Stat Rosa Frausto R.N. Alivia King, R.N. Urinalysis Stat Stat 22:38 09/29/2024 23:17 09/29/2024 [...] D.O. (09/30/2024 02:22 EDT)] 2 of [address] [facility] ED PHYSICIAN CLINICAL REPORT on 09-30-2024 ED PHYSICIAN CLINICAL REPORT Narrative - KADE BARRERA, : 1995, , Physician Clinical Narrative [address] [address] [id number] 09/29/2024 22:27:00 Patient: KADE BARRERA Sex: Male [...] EDT CBC-COMPLETE BLOOD COUNT 3 of 11 [facility] - KADE BARRERA, : 1995, , [...] - 10.0 Final EDT 4 of 11 Narrative - KADE BARRERA, : 1995, , 09/29/2024 23:09 EO % 2.1 % 0.0 - 7.0 Final EDT 09/29/2024 23:09 BASO % 0.3 % 0.0 - 2.0 Final EDT 09/29/2024 23:09 Lymph # 1.71 x10/UL 0.80 - 2.80 Final EDT 09/29/2024 23:09 Neut # 3.94 x10/UL 1.50 - 7.10 Final EDT 09/29/2024 23:09 Dorado # 0.51 x10/UL 0.20 - 1.00 Fin (more content not included)... [facility] ED SUPER BILLon 09-30-2024 [facility] 1995, , [address] [address] [id number] 09/29/2024 Patient: KADE BARRERA Sex: Male : 1995 Age: 28y Item Professional Category Description Facility Code Code Quantity Fee Total Nurse/E/M EMERGENCY 055100 1 $0.00 $0.00 DEPARTMENT VISIT MODERATE SEVERITY (26349-30) Grand Total $0.00 Providers Rachel Bob D.O. Chief Complaint SUICIDAL THOUGHTS. Principal Diagnosis Anxiety reaction. Uncomplicated alcohol intoxication.No alcohol intoxication with delirium or alcohol dependence. 1 of 2 KADE Morales, : 1995, , ICD-10 Codes F41.1: Generalized anxiety disorder F10.120: Alcohol abuse with intoxication, uncomplicated F10.129: Alcohol abuse with intoxication, unspecified [address] [facility] ED VISIT SUMMARYon ED VISIT SUMMARY Visit Overview - KADE BARRERA, : 1995, , Visit Overview [facility] [address] [place] [address] [id number] 09/29/2024 Patient: KADE BARRERA Sex: Male : [...] DEPENDENCE 3 of 3 Normal [facility] ED VITALS FLOW SHEETon 09-30 ED VITALS FLOW SHEET Vitals - KADE GONZALEZ, : 1995, , Vital Sign Flow Sheet [address] [address] [id number] 09/29/2024 Patient: KADE BARRERA Sex: Male : 1995 Age: 28y Measurements Wt: 78.9 kg, Ht/Pedro: 71.0 in, BMI: 24.27 Measured Time BP MAP HR RR O2Sat ETCO2 Temp Pain GCS RTS 22:37 09/29/2024 142/77 99 104 16 95% 98.7 F 0 1 of 1 Normal [facility] SALICYLATEon 09-30-2024 SALICYLATE 3.2 mg/dl Normal 2.8 - 20.0 [facility] Comment on above: Result Comment: *PAT IENTS TREATED WITH SULFASALAZINE MAY GENERATE A FALSE HIGH RESULT FOR SALICYLATE. *PATIENTS TREATED WITH SULFAPYRIDINE MAY GENERATE A FALSE LOW RESULT FOR SALICYLATE. Performed By: #### 2 63192 #### [facility],[address] [place] [address] ACETAMINOPHENon 09-29-2024 Acetaminophen [Mass/Vol] ug/mL Low 10.0 - 30.0 [facility] Comment on above: Performed By: #### 2 31161 #### [facility],[address] [place] [address] ALCOHOL-BLOOD MEDICALon 09-11 Ethanol [Mass/Vol] 138 mg/dL High 0 - 50 [facility] Comment on above: Performed By: #### 2 97000 ####[facility],[address] [place], [place] [address] CBC + DIFFon 09-29-2024 Baso # 0.02 x10EE3/UL Normal 0.00 - 0.10 [facility] Comment on above: Performed By: #### 2 90517 ####[facility],[address] [place] [address] 73240 Basophils/100 WBC (Bld) 0.3 % Normal 0.0 - 2.0 [facility] Comment on above: Performed By: #### 2 24680 ####[facility],[address] [place] [address] 16467 CBC + DIFF Normal [facility] Comment on above: Result Comment: CBC- COMPLETE BLOOD COUNT Performed By: #### 2 72177 ####[facility],[address] [place] [address] 04543 EO # 0.13 x10EE3/UL Normal 0.00 - 0.50 [facility] Comment on above: Performed By: #### 2 59253 ####[facility],[address] [place] [address] 14156 Eosinophils/100 WBC (Bld) 2.1 % Normal 0.0 - 7.0 [facility] Comment on above: Performed By: #### 2 28002 ####[facility] [place], [place] [address] Erythrocyte distribution width (RBC) [Ratio] 12.0 % Normal 12.0 - 15.6 [facility] Comment on above: Performed By: #### 2 47115 ####[facility],[address] [place] [address] Hematocrit (Bld) [Volume fraction] 42.5 % Normal 40.0 - 52.0 [facility] Comment on above: Performed By: #### 2 50758 ####[facility],[address] [place] [address] Hemoglobin (Bld) [Mass/Vol] 15.5 g/dL Normal 13.0 - 17.5 [facility] Comment on above: Result Comment: H AN D H REPEATED Performed By: #### 2 58120 ####[place] [address] Lymph # 1.71 x10EE3/UL Normal 0.80 - 2.80 [facility] Comment on above: Performed By: #### 2 17202 ####[facility],[address] [place], [place] [address] Lymphocytes/100 WBC (Bld) 27.1 % Normal 20.0 - 45.0 [facility] Comment on above: Performed By: #### 2 72701 ####[facility],[address] [place] [address] 89857 MANUAL DIFF N/A Normal [facility] Comment on above: Performed By: #### 2 32301 ####[facility],[address] [place] [address] 18500 MCH (RBC) [Entitic mass] 36 pg High 27 - 33 [facility] Comment on above: Performed By: #### 2 91202 ####[facility],[address] [place] [address] 82041 MCHC 36 X10 3 Normal 32 - 36 [facility] Comment on above: Performed By: #### 2 59705 ####[facility],[address] [place] [address] 82355 MCV (RBC) [Entitic vol] 100 fL High 81 - 98 [facility] Comment on above: Performed By: #### 2 30576 ####[facility],[address] [place] [address] 72163 Dorado # 0.51 x10EE3/UL Normal 0.20 - 1.00 [facility] Comment on above: Performed By: #### 2 00249 ####[facility],[address] [place] [address] 74022 MONOS % 8.1 % Normal 0.0 - 10.0 [facility] Comment on above: Performed By: #### 2 81188 ####[facility],[address] [place] [address] 06168 Morphology Isacc (Bld) [Interp] N/A Normal [facility] Comment on above: Performed By: #### 2 03405 ####[facility],[address] [place] [address] 70362 Neut # 3.94 x10EE3/UL Normal 1.50 - 7.10 [facility] Comment on above: Performed By: #### 2 03667 ####[facility],[address] [place] [address] 37849 Neutrophils/100 WBC (Bld) 62.4 % Normal 46.0 - 76.0 [facility] Comment on above: Performed By: #### 2 58260 ####[facility],[address] [place] [address] 48350 PLATELET 244 x10EE3/UL Normal 150 - 450 [facility] Comment on above: Performed By: #### 2 89630 ####[facility],[address] [place] [address] 30205 Platelet mean volume (Bld) [Entitic vol] 7.6 fL Normal 6.4 - 10.5 [facility] Comment on above: Result Comment: AUTO MATED DIFFERENTIAL Performed By: #### 2 12632 ####[facility],[address] [place] [address]654 RBC 4.27 x 10EE6/UL Low 4.50 - 6.00 [facility] Comment on above: Performed By: #### 2 12861 ####[facility],[address] [place] [address] 39235 WBC 6.3 x 10EE3/UL Normal 4.5 - 10.8 [facility] Comment on above: Performed By: #### 2 88097 ####[facility],[address] [place] [address] 34936 CMP with eGFRon 09-29-2024 AGE 28 years Normal [facility] Comment on above: Performed By: #### 2 01726 #### [facility],[address] [place] [address] 76181 Albumin [Mass/Vol] 3.3 g/dL Low 3.4 - 5.0 [facility] Comment on above: Performed By: #### 2 88346 #### [facility],[address] [place] [address] 70659 Albumin/Globulin [Mass ratio] 1.0 {ratio} Normal 0.9 - 1.6 [facility] Comment on above: Performed By: #### 2 38481 #### [facility],[address] [place] [address] 49214 ALK PHOS 75 U/L Normal 46 - 116 [facility] Comment on above: Performed By: #### 2 09257 #### [facility],[address] [place] [address] 86677 ALT [Catalytic activity/Vol] 76 U/L High 16 - 63 [facility] Comment on above: Performed By: #### 2 76535 #### [facility],[address] [place] [address] 75083 Anion gap [Moles/Vol] 11 mmol/L Normal 10 - 20 [facility] Comment on above: Performed By: #### 2 63839 #### [facility],[address] [place] [address] 55561 AST [Catalytic activity/Vol] 49 U/L High 15 - 37 [facility] Comment on above: Performed By: #### 2 58165 #### [facility],[address] [place] [address] 09784 B/C RATIO 6 ratio Normal 0 - 30 [facility] Comment on above: Performed By: #### 2 09366 #### [facility],[address] [place] [address] 78636 Bilirubin [Mass/Vol] 0.4 mg/dL Normal 0.2 - 1.0 [facility] Comment on above: Performed By: #### 2 40931 #### [facility],[address] [place] [address] 34053 Calcium [Mass/Vol] 8.6 mg/dL Normal 8.5 - 10.1 [facility] Comment on above: Performed By: #### 2 31654 #### [facility],[address] [place] [address] 87397 Chloride [Moles/Vol] 105 mmol/L Normal 98 - 107 [facility] Comment on above: Performed By: #### 2 47890 #### [facility],[address] [place] [address] 78441 CMP with eGFR Normal [facility] Comment on above: Result Comment: COMP REHENSIVE METABOLIC PANEL Performed By: #### 2 30325 #### [facility],[address] [place] [address] 41585 CO2 [Moles/Vol] 26.4 mmol/L Normal 21.0 - 32.0 [facility] Comment on above: Performed By: #### 2 59620 #### [facility],[address] [place] [address] 74781 Creatinine [Mass/Vol] 0.64 mg/dL Low 0.70 - 1.30 [facility] Comment on above: Performed By: #### 2 53408 #### [facility],[address] [place] [address] 36230 GFR/1.73 sq M.predicted among non-blacks MDRD (S/P/Bld) [Vol rate/Area] mL/min/{1.73_m2} Normal 60 - 999 [facility] Comment on above: Performed By: #### 2 32871 #### [facility],[address] [place] [address] Result Comment: ACCO RDING TO THE NATIONAL KIDNEY DISEASE EDUCATION PROGRAM(NKDE), A NORMAL eGFR IS A VALUE GREATER THAN OR EQUAL TO 60 ML/MIN/1.73 SQ METERS. CHRONIC KIDNEY DISEASE: <60mL/MIN/1.73 SQ METERS KIDNEY FAILURE: <15mL/MIN/1.73 SQ METERS THIS TEST SHOULD ONLY BE USED FOR PATIENTS 18 YEARS OF AGE AND OLDER. Globulin (S) [Mass/Vol] 3.4 g/dL Normal 1.5 - 3.8 [facility] Comment on above: Performed By: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 Officer: DIONNA JIMENEZ ([id number])[facility])[address] [place] [address] CO2 [Moles/Vol] 21 mmol/L Low 22-29 [facility] Comment on above: Performed By: #### L AB15, [id number], LAB46, LAB62 ####Corporate Ethics Officer: DIONNA JIMENEZ ([id number])[facility])[address] [place] [address] Creatinine [Mass/Vol] 0.67 mg/dL Low 0.72-1.25 [facility] Comment on above: Performed By: #### L AB15, [id number], LAB46, LAB62 ####Corporate Ethics Officer: DIONNA JIMENEZ ([id number])[address] GLOMERULAR FILTRATION RATE ML/MIN/1.73 SQ M.PREDICTED >90.0 Normal >60.0 [facility] Comment on above: Result Comment: Calc ulation based on the Chronic Kidney Disease Epidemiology Collaboration (CKD-EPI) equation refit without adjustment for race Performed By: #### L AB15, [id number], LAB46, LAB62 ####Corporate Ethics Officer: DIONNA JMIENEZ ([id number])[facility])[address] [place] [address] Glucose [Mass/Vol] 113 mg/dL High 74-100 [facility] Comment on above: Performed By: #### L AB15, [id number], LAB46, LAB62 ####Corporate Ethics Officer: DIONNA JIMENEZ ([id number])[facility])[address] [place] [address] Potassium [Moles/Vol] 3.5 mmol/L Normal 3.5-5.1 [facility] Comment on above: Result Comment: [facility] potassium values may be up to 0.5 mmol/L lower than serum values. Performed By: #### L AB15, [id number], LAB46, LAB62 ####Corporate Ethics Officer: DIONNA JIMENEZ ([id number])[facility])[address] [place] [address] Sodium [Moles/Vol] 137 mmol/L Normal 136-145 [facility] Comment on above: Performed By: #### L AB15, [id number], LAB46, LAB62 ####Corporate Ethics Officer: DIONNA JIMENEZ ([id number])[facility] ([facility])[address] [place] [address] Urea nitrogen [Mass/Vol] 5 mg/dL Low 8-21 [facility] Comment on above: Performed By: #### L AB15, [id number], LAB46, LAB62 ####Corporate Ethics Officer: DIONNA JIMENEZ ([id number])[facility] ([facility])[address] [place] [address] Basic metabolic 1998 panelon 06-11-2024 Anion gap [Moles/Vol] 8 mmol/L 3 - 13 mmol/L [facility] Calcium [Mass/Vol] 8.4 mg/dL 8.4 - 10. 2 mg/dL [facility] Chloride [Moles/Vol] 108 mmol/L High 98 - 10 7 mmol/L [facility] CO2 [Moles/Vol] 21 mmol/L Low 22 - 29 mmol/L [facility] Creatinine [Mass/Vol] 0.67 mg/dL Low 0.72 - 1.25 mg/dL [facility] GFR/1.73 sq M.predicted (S/P/Bld) [Vol rate/Area] - PINF [facility] Comment on above: Calculation based on the Chronic Kidney Disease Epidemiology Collaboration (CKD-EPI) equation refit without adjustment for race Glucose [Mass/Vol] 113 mg/dL High 74 - 100 mg/dL [facility] Potassium [Moles/Vol] 3.5 mmol/L 3.5 - 5.1 mmol/L [facility] Comment on above: Plasma potassium steph ues may be up to 0.5 mmol/L lower than serum values. Sodium [Moles/Vol] 137 mmol/L 136 - 145 mmol/L [facility] Urea nitrogen [Mass/Vol] 5 mg/dL Low 8 - 21 mg/dL [facility] CBC W Auto Differential pane l (Bld)Ordered By: Ludwin Cordova on 06-11-2024 Basophils (Bld) [#/Vol] 0.1 10*3/uL 0.0 - 0.2 10*3/uL [facility] Basophils/100 WBC (Bld) 1.9 % 0.0 - 2.0 % [facility] Eosinophils (Bld) [#/Vol] 0.1 10*3/uL 0.0 - 0.5 10*3/uL [facility] Eosinophils/100 WBC (Bld) 2.3 % 0.0 - 6.0 % [facility] Erythrocyte distribution width (RBC) [Ratio] 12.7 % 11.5 - 15.0 % [facility] Hematocrit (Bld) [Volume fraction] 41.5 % 40.0 - 52.0 % [facility] Hemoglobin (Bld) [Mass/Vol] 15.4 g/dL 13.0 - 18.0 g/dL [facility] Immature granulocytes (Bld) [#/Vol] 0 10*3/uL NINF - 0.1 10*3/uL [facility] Immature granulocytes/100 WBC (Bld) 0.2 % 0.0 - 2.0 % [facility] Interpretation and review of laboratory results Abnormal [facility] Lymphocytes (Bld) [#/Vol] 1.8 10*3/uL 1.0 - 4.3 10*3/uL [facility] Lymphocytes/100 WBC (Bld) 34.8 % 15.0 - 45.0 % [facility] MCH (RBC) [Entitic mass] 33.7 pg 26.0 - 34.0 pg [facility] MCHC (RBC) [Mass/Vol] 37.1 % High 30.5 - 36.0 % [facility] MCV (RBC) [Entitic vol] 90.8 fL 77.0 - 99.0 fL [facility] Monocytes (Bld) [#/Vol] 0.5 10*3/uL 0.0 - 0.9 10*3/uL [facility] Monocytes/100 WBC (Bld) 9.1 % 5.0 - 13.0 % [facility] Neutrophils (Bld) [#/Vol] 2.7 10*3/uL 1.8 - 7.5 10*3/uL [facility] Neutrophils/100 WBC (Bld) 51.7 % 38.0 - 82.0 % [facility] Nucleated RBC/100 WBC (Bld) [Ratio] 0 % [facility] Platelet mean volume (Bld) [Entitic vol] 9.8 fL 9.0 - 12.7 fL [facility] Platelets (Bld) [#/Vol] 226 10*3/uL 140 - 440 10*3/uL [facility] RBC (Bld) [#/Vol] 4.57 10*6/uL 4.40 - 5.9 0 10*6/uL [facility] WBC (Bld) [#/Vol] 5.2 10*3/uL 3.6 - 10.7 10*3/uL [facility] CBC WITH AUTO DIFFERENTIALon 06-11-2024 Basophils (Bld) [#/Vol] 0.1 10*3/uL Normal 0.0-0.2 [facility] Comment on above: Performed By: #### L [id number] #### Corporate Ethics Officer: DIONNA JIMENEZ ([id number]) [facility] ([facility]) [address] [place] [address] Basophils/100 WBC (Bld) 1.9 % Normal 0.0-2.0 [facility] Comment on above: Performed By: #### L [id number] #### Corporate Ethics Officer: DIONNA JIMENEZ ([id number]) [facility] ([facility]) [address] [place] [address] [place] Eosinophils (Bld) [#/Vol] 0.1 10*3/uL Normal 0.0-0.5 [facility] Comment on above: Performed By: #### L [id number] #### Corporate Ethics Officer: DIONNA JIMENEZ ([id number]) [facility] ([facility]) [address] [place] [address] [place] Eosinophils/100 WBC (Bld) 2.3 % Normal 0.0-6.0 [facility] Comment on above: Performed By: #### L [id number] #### Corporate Ethics Officer: DIONNA JIMENEZ ([id number]) [facility] ([facility]) [address] [place] [address] Erythrocyte distribution width (RBC) [Ratio] 12.7 % Normal 11.5-15.0 [facility] Comment on above: Performed By: #### L [id number] #### Corporate Ethics Officer: DIONNA [id number]) [facility]) [address] [place] [address] Hematocrit (Bld) [Volume fraction] 41.5 % Normal 40.0-52.0 [facility] Comment on above: Performed By: #### L [id number] #### Corporate Ethics Officer: DIONNA JIMENEZ ([id number]) [facility]) [address] [place] [address] Hemoglobin (Bld) [Mass/Vol] 15.4 g/dL Normal 13.0-18.0 [facility] Comment on above: Performed By: #### L [id number] #### Corporate Ethics Officer: DIONNA JIMENEZ ([id number]) [facility]) [address] [place] [address] IMMATURE GRANS % 0.2 % Normal 0.0-2.0 [facility] Comment on above: Performed By: #### L [id number] #### Corporate Ethics Officer: DIONNA JIMENEZ ([id number]) [facility]) [address] [place] [address] IMMATURE GRANS ABSOLUTE 0.0 10*3/uL Normal <0.1 [facility] Comment on above: Performed By: #### L [id number] #### Corporate Ethics Officer: DIONNA JIMENEZ ([id number]) [facility]) [address] [place] [address] Lymphocytes (Bld) [#/Vol] 1.8 10*3/uL Normal 1.0-4.3 [facility] Comment on above: Performed By: #### L [id number] #### Corporate Ethics Officer: DIONNA JIMENEZ ([id number]) [facility]) [address] [place] [address] Lymphocytes/100 WBC (Bld) 34.8 % Normal 15.0-45.0 [facility] Comment on above: Performed By: #### L [id number] #### Corporate Ethics Officer: DIONNA JIMENEZ ([id number]) [facility] ([facility]) [address] [place] [address] MCH (RBC) [Entitic mass] 33.7 pg Normal 26.0-34.0 [facility] Comment on above: Performed By: #### L [id number] #### Corporate Ethics Officer: DIONNA JIMENEZ ([id number]) [facility]) [address] [place] [address] MCHC 37.1 % High 30.5-36.0 [facility] Comment on above: Performed By: #### L [id number] #### Corporate Ethics Officer: DIONNA JIMENEZ ([id number]) [facility]) [address] [place] [address] MCV (RBC) [Entitic vol] 90.8 fL Normal 77.0-99.0 [facility] Comment on above: Performed By: #### L [id number] #### Corporate Ethics Officer: DIONNA JIMENEZ ([id number]) [facility]) [address] [place] [address] Monocytes (Bld) [#/Vol] 0.5 10*3/uL Normal 0.0-0.9 [facility] Comment on above: Performed By: #### L [id number] #### Corporate Ethics Officer: DIONNA JIMENEZ ([id number]) [facility]) [address] [place] [address] Monocytes/100 WBC (Bld) 9.1 % Normal 5.0-13.0 [facility] Comment on above: Performed By: #### L [id number] #### Corporate Ethics Officer: DIONNA JIMENEZ ([id number]) [facility]) [address] [place] [address] NEUTROPHILS ABSOLUTE 2.7 10*3/uL Normal 1.8-7.5 [facility] Comment on above: Performed By: #### L [id number] #### Corporate Ethics Officer: IDONNA JIMENEZ ([id number]) [facility]) [address] [place] [address] Neutrophils/100 WBC (Bld) 51.7 % Normal 38.0-82.0 [facility] Comment on above: Performed By: #### L [id number] #### Corporate Ethics Officer: DIONNA JIMENEZ ([id number]) [facility] ([facility]) [address] [place] [address] NRBC 0.0 /100 WBCs Normal 0.0-2.0 [facility] Comment on above: Performed By: #### L [id number] #### Corporate Ethics Officer: DIONNA JIMENEZ ([id number]) [facility] ([facility]) [address] [place] [address] Platelet mean volume (Bld) [Entitic vol] 9.8 fL Normal 9.0-12.7 [facility] Comment on above: Performed By: #### L [id number] #### Corporate Ethics Officer: DIONNA JIMENEZ ([id number]) [facility] ([facility]) [address] [place] [address] Platelets (Bld) [#/Vol] 226 10*3/uL Normal 140-440 [facility] Comment on above: Performed By: #### L [id number] #### Corporate Ethics Officer: DIONNA JIMENEZ ([id number]) [facility] ([facility]) [address] [place] [address] RBC (Bld) [#/Vol] 4.57 10*6/uL Normal 4.40-5.90 [facility] Comment on above: Performed By: #### L [id number] #### Corporate Ethics Officer: DIONNA JIMENEZ ([id number]) [facility] ([facility]) [address] [place] [address] WBC (Bld) [#/Vol] 5.2 10*3/uL Normal 3.6-10.7 [facility] Comment on above: Performed By: #### L [id number] #### Corporate Ethics Officer: DIONNA JIMENEZ ([id number]) [facility] ([facility]) [address] [place], [place] [address] 06-11-2024 CK [Catalytic activity/Vol] 247 U/L High 30-185 [facility] Comment on above: Performed By: #### L [id number], [id number], [id number], [id number] ####Corporate Ethics Officer: DIONNA JIMENEZ ([id number])[facility] ([facility])[address] [place] [address] DRUGS OF ABUSEon 06-11-2024 AMPHETAMINE SCREEN Positive Normal [facility] Comment on above: Performed By: #### L [id number] ####Corporate Ethics Officer: DIONNA JIMENEZ ([id number])[facility] ([facility])[address] [place] [address] BARBITURATES SCREEN Positive Normal [facility] Comment on above: Performed By: #### L [id number] ####Corporate Ethics Officer: DIONNA JIMENEZ ([id number])[facility] ([facility])[address] [place] [address] BENZODIAZEPINE SCREEN Negative Normal [facility] Comment on above: Performed By: #### L [id number] ####Corporate Ethics Officer: DIONNA JIMENEZ ([id number])[facility] ([facility])[address] [place] [address] COCAINE METAB. SCREEN Negative Normal [facility] Comment on above: Performed By: #### L [id number] ####Corporate Ethics Officer: DIONNA JIMENEZ ([id number])[facility] ([facility])[address] [place] [address] FENTANYL SCREEN, UR QUAL Negative Normal [facility] Comment on above: Result Comment: [employer]A [employer] COMMENTS: The expected value for all of [...] under separate order. Performed By: #### L [id number] ####Corporate Ethics Officer: DIONNA JIMENEZ ([id number])[facility] ([facility])[address] [place] [address] METHADONE SCREEN Negative Normal [facility] Comment on above: Performed By: #### L [id number] ####Corporate Ethics Officer: DIONNA JIMENEZ ([id number])[facility] ([facility])[address] [place] [address] OPIATES SCREEN Negative Normal [facility] Comment on above: Performed By: #### L [id number] ####Corporate Ethics Officer: DIONNA JIMENEZ ([id number])[facility] ([facility])[address] [place] [address] OXYCODONE SCREEN Negative Normal [facility] Comment on above: Performed By: #### L [id number] ####Corporate Ethics Officer: DIONNA JIMENEZ ([id number])[facility] [place] [address] PHENCYCLIDINE SCREEN Negative Normal [facility] Comment on above: Performed By: #### L [id number] ####Corporate Ethics Officer: DIONNA JIMENEZ ([id number])[facility] ([facility])[address] [place] [address] ECG 12-LEADon 06-11-2024 ECG 12-LEAD IMPRESSION: Pacemaker spikes or artifacts Sinus rhythm Electronically Signed On 06-11-2024 10:13:28 EDT by Mike Wright [facility] ED Nursing Noteon 06-11-2024 ED Nursing Note Report given to Larry broderick RN. [facility] ED Nursing Note Pt ambulated independently back and forth to the restroom. 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 [facility] ED Nursing Note Pt heading to xray w ith transport. 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 Normal [facility] ETHANOLon 06-11-2024 ETHANOL IN SER/PLAS <10 Normal <10 [facility] Comment on above: Result Comment: MARTA R COMMENTS: BORDER INSPECTOR depression is seen >100 mg/dL. NOTE: This result is for medical treatment only. Analysis performed using non-forensic procedures. Performed By: #### L AB15, [id number], LAB46, LAB62 ####Corporate Ethics Officer: DIONNA JIMENEZ ([id number])[facility] [place] [address] Ethanol (Bld) [Mass/Vol]on 0 06-11-2024 Ethanol [Mass/Vol] mg/dL NINF - 10 mg/dL [facility] Interpretation and review of laboratory results Normal [facility] BORDER INSPECTOR depression is se en >100 mg/dL. NOTE: This result is for medical treatment only. Analysis performed using non-forensic procedures. [facility] HIGH SENSITIVITY TROPONIN, S ERIAL BASELINEon 06-11-2024 TROPONIN HS SERIAL BASELINE <3 Normal <=35 [facility] Comment on above: Result Comment: In i ndividuals presenting with symptoms > 2h, a baseline troponin <= 5 ng/L suggests acute cardiac injury is unlikely and further serial testing is generally not indicated. Performed By: #### L AB15, [id number], LAB46, LAB62 ####Corporate Ethics Officer: DIONNA JIMENEZ ([id number])[facility] [place] [address] Laboratory - Chemistry and C hemistry - challengeon 06-11-2024 CK [Catalytic activity/Vol] 247 U/L High 30 - 185 U/L [facility] Laboratory - Drug toxicology on 06-11-2024 Amphetamines Screen method >1000 ng/mL Ql (U) Positive [facility] Barbiturates Screen method >200 ng/mL Ql (U) Positive [facility] Benzodiazepines Ql (U) Negative [facility] Methadone Screen Ql (U) Negative [facility] Opiates Screen Ql (U) Negative [facility] oxyCODONE Ql (U) Negative [facility] Phencyclidine Ql (U) Negative [facility] No Panel InformationOrdered By: Mike Wright on 06-11-2024 P Malott 67 degrees [employer] Work Phone: IA Interval 139 ms [employer] Work Phone: QRS Malott 80 degrees [employer] Work Phone: QRSD Interval 95 ms [employer] Phone: QT Interval 334 ms [employer] Work Phone: QTC Interval 418 ms [employer] Work Phone: T Wave Malott 52 degrees [employer] Phone: [employer] Phone: [phone] No Panel Informationon 06-11 Pacemaker spikes or artifacts Sinus rhythm Electronically Signed On 06-11-2024 10:13:28 EDT by Mike Wright CV Mike Angela MD - 06/11/2024 IMPRESSION: Pacemaker spikes or artifacts Sinus rhythm Electronically Signed On 06-11-2024 10:13:28 EDT by Mike Wright [facility] Interpretation and review of laboratory results Normal [facility] Troponin HS Serial Baseline ng/L NINF - 35 ng/L [facility] Comment on above: In individuals prese nting with symptoms > 2h, a baseline troponin <= 5 ng/L suggests acute cardiac injury is unlikely and further serial testing is generally not indicated. [facility] Interpretation and review of laboratory results Abnormal [facility] COCAINE METAB. SCREEN Negative [facility] FENTANYL SCREEN, UR QUAL Negative [facility] The expected value f or all [...] is needed, request confirmation under separate order. CLEAR Vital signsOrdered By: Mike Wright on 06-11-2024 Heart rate 94 /min bpm [employer] Work Phone: XR Chest 2 Viewson 1. No evidence of an acute cardiopulmonary process. Report Dictated on Electronically Signed By: Jovanni Garcia MD Electronically Signed Date/Time: 06/11/2024 5:00 AM EDT [facility] Patient Name: KADE BARRERA : [...] Electronically Signed Date/Time: 06/11/2024 5:00 AM EDT [employer] Radiology Study observation (narrative) [employer] XR Chest 2 ViewsOrdered By: Jovanni Garcia on 06-11-2024 [facility] Work Phone: ED Nursing Noteon 06-10-2024 [...] Interpretation and review of laboratory results Normal [facility] SARS-CoV-2 (COVID-19) RNA DOMINIC+non-probe Ql (Nph) Negative Negative [facility] AMB POC RAPID INFLUENZA DNA/ RNAon 01-28-2024 Inflenza A Ag Positive [facility] Influenza B Ag Negative [facility] Interpretation and review of laboratory results Abnormal [facility] Office Visiton 01-28-2024 Follow-up visit [id number] Kade Barrera 1995 M Date Provider Department Center 01/28/2024 [id number] RETANA [facility] None No family history on file Level of Service:96049 [place] OFFICE/OUTPATIENT ESTABLISHED LOW MDM 20 MIN Reason for Visit and Comments: URI [115] - Cough /Body ache/ migraine/stuffy nose /pt stated that he started new medication yesterday and that when he started feeling sick. Normal [facility] Progress Noteon 01-28-2024 Progress Note [facility] [address] [facility] [address] Dept: [phone] Dept Loc: [phone] Subjective Kade Barrera is a 28 y.o. [...] as words (more content not included)... Normal [facility] .Auto Diffon 06-20-2023 Basophil, Absolute 0.1 10 3/mcL Normal 0.0-0.2 [facility] ([place]) Comment on above: Performed By: #### A MD STACEYW, CBC, ALC, ADIFF, CMP, GFR #### [address] [address] Basophils/100 WBC (Bld) 1.0 % Normal 0.0-2.5 A [facility] ([place]) Comment on above: Performed By: #### A STACEYMDW, CBC, ALC, ADIFF, CMP, GFR #### [address] [address] Eosinophil, Absolute 0.0 10 3/mcL Normal 0.0-0.4 [facility] ([place]) Comment on above: Performed By: #### A STACEYMDW, CBC, ALC, ADIFF, CMP, GFR #### [address] [address] Eosinophils/100 WBC (Bld) 0.5 % Normal 0.0-7.0 [facility] ([place]) Comment on above: Performed By: #### A STACEYMDW, CBC, ALC, ADIFF, CMP, GFR #### [address] [address] Lymphocyte, Absolute 2.4 10 3/mcL Normal 0.8-3.9 [facility] ([place]) Comment on above: Performed By: #### A STACEYMDW, CBC, ALC, ADIFF, CMP, GFR #### [address] [address] Lymphocytes/100 WBC (Bld) 29.4 % Normal 10.0-50.0 [facility] ([place] Comment on above: Performed By: #### A STACEYMDW, CBC, ALC, ADIFF, CMP, GFR #### [address] [address] Monocyte, Absolute 0.6 10 3/mcL Normal 0.2-1.0 [facility] ([place]) Comment on above: Performed By: #### A STACEYMDW, CBC, ALC, ADIFF, CMP, GFR #### [address] [address] Monocytes/100 WBC (Bld) 7.6 % Normal 1.7-13.0 A [facility] ([place]) Comment on above: Performed By: #### A RIVERA IBARRA, CBC, ALC, ADIFF, CMP, GFR #### [address] [place], [place] [address] Neutrophils/100 WBC (Bld) 61.5 % Normal 37.0-80.0 [facility] ([place]) Comment on above: Performed By: #### A RIVERA IBARRA, CBC, ALC, ADIFF, CMP, GFR #### [address] [place], [place] [address] .GFRon 06-20-2023 GFR 96 ml/min/1.73sqm Normal [facility] ([place]) Comment on above: Result Comment: GFR Population [...] RIVERA IBARRA, CBC, ALC, ADIFF, CMP, GFR ####[address] [address] GFR Non- 79 ml/min/1.73sqm Normal [facility] ([place]) Comment on above: Result Comment: GFR Population [...] mL/min/1.73 square meters Performed By: #### A IRVERA IBARRA, CBC, ALC, ADIFF, CMP, GFR ####[place] [address] .MDWon 06-20-2023 Monocyte Distribution Width 18.60 Normal 0.00-20.00 [facility] ([place]) Comment on above: Result Comment: For ED adult patients suspected of sepsis, MDW<=20.0 does not rule out sepsis or risk of sepsis Performed By: #### A RIVERA IBARRA, CBC, ALC, ADIFF, CMP, GFR #### [address] [place] [address] .NEUABSon 06-20-2023 Neutrophil, Absolute 5.0 10 3/mcL Normal 2.9-6.2 [facility] ([place]) Comment on above: Performed By: #### A RIVERA IBARRA, CBC, ALC, ADIFF, CMP, GFR #### [place] [address] Rob 06-20-2023 Ethanol Level <3 Normal 0-3 [facility] ([place] Comment on above: Performed By: #### A RIVERA IBARRA, CBC, ALC, ADIFF, CMP, GFR #### [place] [address] Keiko 06-20-2023 Ammonia (P) [Moles/Vol] 15 umol/L Normal 11-32 A [facility] ([place]) Comment on above: Performed By: #### P HOS, PRO, AMM ####[place] [address] CBCon 06-20-2023 Erythrocyte distribution width (RBC) [Ratio] 12.6 % Normal 11.5-14.5 [facility] ([place] Comment on above: Performed By: #### A RIVERA IBARRA, CBC, ALC, ADIFF, CMP, GFR #### [address] [address] Hematocrit (Bld) [Volume fraction] 40.3 % Low 42.0-52.0 [facility] ([place] Comment on above: Performed By: #### A RIVERA IBARRA, CBC, ALC, ADIFF, CMP, GFR #### [address] [address] Hgb 14.5 G/dL Normal 14.0-18.0 [facility] ([place]) Comment on above: Performed By: #### A RIVERA IBARRA, CBC, ALC, ADIFF, CMP, GFR #### [address] [address] MCH (RBC) [Entitic mass] 33.9 pg High 27.0-31.2 [facility] ([place] Comment on above: Performed By: #### A RIVERA IBARRA, CBC, ALC, ADIFF, CMP, GFR #### [place] [address] MCHC 35.9 G/dL High 31.8-35.4 [facility] ([place] Comment on above: Performed By: #### A RIVERA IBARRA, CBC, ALC, ADIFF, CMP, GFR #### [address] [address] MCV (RBC) [Entitic vol] 94.3 fL High 80.0-94.0 A [facility] ([place]) Comment on above: Performed By: #### A RIVERA IBARRA, CBC, ALC, ADIFF, CMP, GFR #### [address] [address] Platelet 230 10 3/mcL Normal 130-400 [facility] ([place] Comment on above: Performed By: #### A RIVERA IBARRA, CBC, ALC, ADIFF, CMP, GFR #### [address] [address] Platelet mean volume (Bld) [Entitic vol] 7.5 fL Normal 7.4-10.4 [facility] ([place] Comment on above: Performed By: #### A RIVERA IBARRA, CBC, ALC, ADIFF, CMP, GFR #### [address] [address] RBC 4.27 10 6/mcL Normal 4.04-6.13 [facility] ([place] Comment on above: Performed By: #### A RIVERA IBARRA, CBC, ALC, ADIFF, CMP, GFR #### [address] [address] WBC 8.1 10 3/mcL Normal 4.6-10.8 [facility] ([place] Comment on above: Performed By: #### A RIVERA IBARRA, CBC, ALC, ADIFF, CMP, GFR #### [address] [address] CMPon 06-20-2023 Albumin Level 3.8 G/dL Normal 3.5-5.0 [facility] ([place] Comment on above: Performed By: #### A RIVERA IBARRA, CBC, ALC, ADIFF, CMP, GFR #### [address] [address] Albumin/Globulin [Mass ratio] 1.3 {ratio} Normal 1.1-2.5 [facility] ([place] Comment on above: Performed By: #### A RIVERA IBARRA, CBC, ALC, ADIFF, CMP, GFR #### [address] [address] ALP [Catalytic activity/Vol] 77 U/L Normal 40-135 [facility] ([place] Comment on above: Performed By: #### A RIVERA IBARRA, CBC, ALC, ADIFF, CMP, GFR #### [address] [address] ALT [Catalytic activity/Vol] 28 U/L Normal 16-63 [facility] ([place] Comment on above: Performed By: #### A RIVERA IBARRA, CBC, ALC, ADIFF, CMP, GFR #### [address] [address] AST [Catalytic activity/Vol] 17 U/L Normal 10-40 [facility] ([place] Comment on above: Performed By: #### A RIVERA IBARRA, CBC, ALC, ADIFF, CMP, GFR #### [address] [address] Bili Total 0.3 mg/dL Normal 0.2-1.0 [facility] ([place]) Comment on above: Result Comment: Use of this assay is not recommended for patients undergoing treatment with eltrombopag due to the potential for falsely elevated results. Performed By: #### A RIVERA IBARRA, CBC, ALC, ADIFF, CMP, GFR #### [address] [address] BUN/Creatinine Ratio 8 ratio Normal 7-27 [facility] ([place]) Comment on above: Performed By: #### A RIVERA IBARRA, CBC, ALC, ADIFF, CMP, GFR #### [address] [address] Calcium [Mass/Vol] 8.6 mg/dL Normal 8.4-10.2 [facility] ([place]) Comment on above: Performed By: #### A RIVERA IBARRA, CBC, ALC, ADIFF, CMP, GFR #### [address] [address] Chloride [Moles/Vol] 105 mmol/L Normal 98-107 [facility] ([place] Comment on above: Performed By: #### A RIVERA IBARRA, CBC, ALC, ADIFF, CMP, GFR #### [address] [address] CO2 [Moles/Vol] 24 mmol/L Normal 22-29 [facility] ([place] Comment on above: Performed By: #### A RIVERA IBARRA, CBC, ALC, ADIFF, CMP, GFR #### [address] [address] Creatinine [Mass/Vol] 1.12 mg/dL Normal 0.70-1.30 [facility] ([place]) Comment on above: Performed By: #### A RIVERA IBARRA, CBC, ALC, ADIFF, CMP, GFR #### [address] [address] Electrolyte Balance 14.0 mEq/L Normal 4.0-15.0 [facility] ([place]) Comment on above: Performed By: #### A RIVERA IBARRA, CBC, ALC, ADIFF, CMP, GFR #### [address] [address] Globulin 2.9 G/dL Normal [facility] ([place] Comment on above: Performed By: #### A RIVERA IBARRA, CBC, ALC, ADIFF, CMP, GFR #### [address] [address] Glucose [Mass/Vol] 99 mg/dL Normal 70-105 [facility] ([place]) Comment on above: Performed By: #### A RIVERA IBARRA, CBC, ALC, ADIFF, CMP, GFR #### [address] [address] Potassium [Moles/Vol] 4.1 mmol/L Normal 3.5-5.1 [facility] ([place]) Comment on above: Performed By: #### A RIVERA IBARRA, CBC, ALC, ADIFF, CMP, GFR #### [address] [address] Sodium [Moles/Vol] 143 mmol/L Normal 136-145 [facility] ([place]) Comment on above: Performed By: #### A RIVERA IBARRA, CBC, ALC, ADIFF, CMP, GFR #### [address] [address] Total Protein 6.7 G/dL Normal 6.4-8.2 [facility] ([place]) Comment on above: Performed By: #### A RIVERA IBARRA, CBC, ALC, ADIFF, CMP, GFR #### [address] [address] Urea nitrogen [Mass/Vol] 9 mg/dL Normal 7-18 [facility] ([place]) Comment on above: Performed By: #### A RIVERA IBARRA, CBC, ALC, ADIFF, CMP, GFR #### [address] [place], [place] [address] CT HEAD OR BRAIN W/O CONTRAS Ton [...] Date: 06/20/2023 3:18:15 AM Ordering Provider: MICHAEL PADRON [facility] ([place] SPINE CERVICAL W/O CONTRA Nolan 06-20-2023 [...] Date: 06/20/2023 3:20:14 AM Ordering Provider: MICHAEL PADRON [facility] ([place]) LABORATORYOrdered By: SYSTEM SYSTEM on 06-20-2023 Ammonia [...] Comment on above: Interpretive Data: Hernandez glasgow [employer] (CHEST, 1992, 102:312S-25S) [...] 06-20-2023 Magnesium [Mass/Vol] 2.1 mg/dL Normal 1.8-2.4 [facility] ([place]) Comment on above: Performed By: #### M G ####[id number] [place], [place] [address] Magnesium [Mass/Vol] 1.7 mg/dL Low 1.8-2.4 [facility] ([place]) Comment on above: Performed By: #### M G ####[id number] [place], [place] [address] MRI BRAIN W/O CONTRASTon MRI BRAIN W/O [...] 06/20/2023 4:13:50 PM Ordering Provider: ANA MARIA PEREZ Normal [facility] PHOSon 06-20-2023 Phosphate [Mass/Vol] 2.9 mg/dL Normal 2.7-4.5 [facility]) Comment on above: Performed By: #### P HOS, PRO, AMM ####[id number] [place], [place] [address] PROon 06-20-2023 PT Coag (PPP) [Time] 9.8 s Normal 9.0-14.4 [facility]) Comment on above: Performed By: #### P HOS, PRO, AMM ####[address] [place], [place] [address] PT International Ratio 0.8 Normal Replaced by [facility]) Comment on above: Result Comment: [employer] (CHEST, 1992, 102:312S-25S) recommended therapeutic range for oral anticoagulant therapy is: LOW RISK: Prophylaxis of venous thrombosis INR: 2.0-3.0 Treatment of pulmonary embolism 2.0-3.0 Prevention of systemic embolism 2.0-3.0 HIGH RISK: Mechanical prosthetic valves 2.5-3.5 Performed By: #### P HOS, PRO, AMM ####[id number] [place], [place] [address] UDRUGon 06-20-2023 Amphetamine (u) Negative Normal Negative [facility] ([place]) Comment on above: Performed By: #### U DRUG #### [address] [address] Barbiturate (u) Negative Normal Negative [facility] ([place]) Comment on above: Performed By: #### U DRUG #### [address] [address] Benzodiazepine (u) Negative Normal Negative [facility] ([place]) Comment on above: Performed By: #### U DRUG #### [address] [address] Cannabinoid (u) Negative Normal Negative [facility] ([place]) Comment on above: Performed By: #### U DRUG #### [address] [address] Cocaine Ql (U) Negative Normal Negative [facility] ([place]) Comment on above: Performed By: #### U DRUG #### [place] [address] Methadone Ql (U) Negative Normal Negative [facility] ([place]) Comment on above: Performed By: #### U DRUG #### [address] [address] Opiate (u) Negative Normal Negative [facility] ([place] Comment on above: Performed By: #### U DRUG #### [address] [address] PCP (u) Negative Normal Negative [facility] ([place] Comment on above: Performed By: #### U DRUG #### [address] [address] Urine Drugs screened: See Below Normal [facility] ([place]) Comment on above: Result Comment: This drug [...] ONLY. Performed By: #### U DRUG #### [address] [address] XR CHEST 1 VIEWon 06-20-2023 XR CHEST [...] 06/20/2023 3:12:39 AM Ordering Provider: MICHAEL PADRON [facility] [place]) Absolute lymphocyte countOrd ered By: Carmelo Mccray on 06-19-2023 Lymphocytes Auto (Unsp spec) [#/Vol] 2.47 10*3/uL 0.83-4.51 [facility] Automated lymphocyte count a s percentage of total leukocytesOrdered By: Carmelo Mccray on 06-19-2023 Lymphocytes/100 WBC Auto (Unsp spec) 28.9 % 19-41 [facility] Basophil percentageOrdered B y: Carmelo Mccray on 06-19-2023 Basophils/100 WBC (Bld) 0.9 % 0-1 [facility] Chloride [Moles/Vol] 108 mmol/L 98-[address] [facility] Eosinophils/100 WBC (Bld) 0.6 % 0-5 [facility] Glucose [Mass/Vol] 84 mg/dL 74-106 [facility] Hemoglobin (Bld) [Mass/Vol] 14.8 g/dL 13.0-16.5 [facility] Monocytes/100 WBC (Bld) 8.4 % 0-10 [facility] Neutrophils (Bld) [#/Vol] 5.2 10*3/uL 2.0-7.7 [facility] Neutrophils/100 WBC (Bld) 60.8 % 47-70 [facility] Potassium [Moles/Vol] 3.7 mmol/L 3.5-5.1 [facility] Sodium [Moles/Vol] 140 mmol/L 136-145 [facility] WBC (Bld) [#/Vol] 8.6 10*3/uL 4.4-11.0 [facility] Determination of erythrocyte mean corpuscular volume (MCV)Ordered By: Carmelo Mccray on 06-19-2023 MCV (RBC) [Entitic vol] 95.8 fL 80-94 [facility] Erythrocyte distribution wid th ratioOrdered By: Carmelo Mccray on 06-19-2023 Erythrocyte distribution width (RBC) [Ratio] 12.0 % 11.6-14.6 [facility] Erythrocyte distribution wid th standard deviationOrdered By: Carmelo Mccray on 06-19-2023 Erythrocyte distribution width (RBC) [Entitic vol] 41.5 fL 35.1-43.9 [facility] Hematocrit Auto (Bld) [Volum e fraction]Ordered By: Carmelo Mccray on 06-19-2023 Hematocrit (Bld) [Volume fraction] 42.9 % 40-54 [facility] Immature granulocytes/100 WB C Auto (Bld)Ordered By: Carmelo Mccray on 06-19-2023 Immature granulocytes/100 WBC (Bld) 0.400 % 0.0-0.9 [facility] Comment on above: IG% - Immature Granu locytes (promyelocytes, myelocytes and metamyelocytes) > 1% indicates that a LEFT SHIFT is Present. Laboratory - Chemistry and C hemistry - challengeOrdered By: Carmelo Mccray on 06-19-2023 CO2 [Moles/Vol] 27.0 mmol/L 21.0-32.0 [facility] Urea nitrogen/Creatinine [Mass ratio] 10.0 mg/mg 10-20 [facility] Laboratory - Hematology and Cell countsOrdered By: Carmelo Mccray on 06-19-2023 MCH (RBC) [Entitic mass] 33.0 pg 27.0-32.0 [facility] MCHC (RBC) [Mass/Vol] 34.5 g/dL 32-36 [facility] Nucleated RBC/100 WBC (Bld) [Ratio] 0 % 0-5 [facility] Platelet mean volume (Bld) [Entitic vol] 9.6 fL 6.2-12.0 [facility] Platelets (Bld) [#/Vol] 263 10*3/uL 150-450 [facility] Laboratory - Microbiology an d Antimicrobial susceptibilityOrdered By: Carmelo Mccray on 06-19-2023 SARS-CoV-2 (COVID-19) RNA DOMINIC+probe Ql (Unsp spec) [facility] No Panel InformationOrdered By: Carmelo Mccray on 06-19-2023 Estimated Creatinine Clearance Calc 145.96 ml/min [facility] Estimated GFR (MDRD) Amer 131 mL/min >60 [facility] Comment on above: GFR Calc Estimated GFR (MDRD) Non-Af Amer 108 mL/min >60 [facility] Comment on above: Non- GFR Calc Troponin I High Sensitivity 10 pg/mL 3.0-78.0 [facility] Comment on above: Please Note: New Rhea t Units and Gender Specific Reference Ranges. For more information see Policy Stat Procedure [place] High Sensitivity Troponin (TNIH) and attachments. RBC Auto (Bld) [#/Vol]Ordere d By: Carmelo Mccray on 06-19-2023 RBC (Bld) [#/Vol] 4.48 10*6/uL 4.6-6.2 [facility] Serum or plasma calcium gaetano urement (mass/volume)Ordered By: Carmelo Mccray on 06-19-2023 Calcium [Mass/Vol] 8.9 mg/dL 8.5-10.1 [facility] Serum or plasma creatinine m easurement (mass/volume)Ordered By: Carmelo Mccray on 06-19-2023 Creatinine [Mass/Vol] 0.90 mg/dL 0.70-1.30 [facility] Comment on above: The validity of the calculated GFR & GFRAA in patients over 70 years has not been determined. Clinical correlation is essential. Serum or plasma urea nitroge n measurement (mass/volume)Ordered By: Carmelo Mccray on 06-19-2023 Urea nitrogen [Mass/Vol] 9 mg/dL 7-18 [facility] Thin prep Papanicolaou smear with manual screeningOrdered By: Carmelo Mccray on 06-19-2023 Thin prep Papanicolaou smear with manual screening 5 5-15 [facility] Absolute lymphocyte countOrd ered By: Marcio Cardona on 05-01-2023 Lymphocytes Auto (Unsp spec) [#/Vol] 4.15 10*3/uL 0.83-4.51 [facility] Automated lymphocyte count a s percentage of total leukocytesOrdered By: Marcio Cardona on 05-01-2023 Lymphocytes/100 WBC Auto (Unsp spec) 41.9 % 19-41 [facility] Basophil percentageOrdered B y: Jacquie White on 05-01-2023 Basophil percentage 3.4 mg/dL 2.5-4.9 [facility] Basophil percentageOrdered B y: Marcio Cardona on 05-01-2023 Basophils/100 WBC (Bld) 1.2 % 0-1 [facility] Bilirubin [Mass/Vol] 0.60 mg/dL 0.20-1.00 [facility] Comment on above: For patients on eltr ombopag therapy, use of Dimension [place] TBIL is not recommended. Chloride [Moles/Vol] 107 mmol/L 98-107 [facility] Eosinophils/100 WBC (Bld) 0.3 % 0-5 [facility] Glucose [Mass/Vol] 130 mg/dL 74-106 [facility] Comment on above: Fasting Glucose resu lt greater than or equal to 126 mg/dL suggests DIABETES MELLITUS per A.D.A. criteria. Hemoglobin (Bld) [Mass/Vol] 18.1 g/dL 13.0-16.5 [facility] Comment on above: CRITICAL VALUE VERIF IED. CALLED TO Lynn HAMPTON05/01/23 0559 [address].RESULTS READ BACK BY SAME. Monocytes/100 WBC (Bld) 6.5 % 0-10 [facility] Neutrophils (Bld) [#/Vol] 4.9 10*3/uL 2.0-7.7 [facility] Neutrophils/100 WBC (Bld) 49.6 % 47-70 [facility] Potassium [Moles/Vol] 3.8 mmol/L 3.5-5.1 [facility] Protein [Mass/Vol] 7.8 g/dL 6.4-8.2 [facility] Sodium [Moles/Vol] 143 mmol/L 136-145 [facility] WBC (Bld) [#/Vol] 9.9 10*3/uL 4.4-11.0 [facility] Blood manual differential co mment interpretation (narrative result)Ordered By: Marcio Cardona on 05-01-2023 Manual differential comment Isacc (Bld) [Interp] SCANNED [facility] Determination of erythrocyte mean corpuscular volume (MCV)Ordered By: Marcio Cardona on 05-01-2023 MCV (RBC) [Entitic vol] 93.3 fL 80-94 [facility] Erythrocyte distribution wid th ratioOrdered By: Marcio Cardona on 05-01-2023 Erythrocyte distribution width (RBC) [Ratio] 12.8 % 11.6-14.6 [facility] Erythrocyte distribution wid th standard deviationOrdered By: Marcio Cardona on 05-01-2023 Erythrocyte distribution width (RBC) [Entitic vol] 44.0 fL 35.1-43.9 [facility] Hematocrit Auto (Bld) [Volum e fraction]Ordered By: Marcio Cardona on 05-01-2023 Hematocrit (Bld) [Volume fraction] 51.3 % 40-54 [facility] Immature granulocytes/100 WB C Auto (Bld)Ordered By: Marcio Cardona on 05-01-2023 Immature granulocytes/100 WBC (Bld) 0.500 % 0.0-0.9 [facility] Comment on above: IG% - Immature Granu locytes (promyelocytes, myelocytes and metamyelocytes) > 1% indicates that a LEFT SHIFT is Present. Laboratory - Chemistry and C hemistry - challengeOrdered By: Marcio Cardona on 05-01-2023 Albumin/Globulin [Mass ratio] 1.1 {ratio} 0.9-2.4 [facility] ALP [Catalytic activity/Vol] 92 U/L 45-117 [facility] ALT [Catalytic activity/Vol] 49 U/L 16-61 [facility] CO2 [Moles/Vol] 26.0 mmol/L 21.0-32.0 [facility] Globulin (S) [Mass/Vol] 3.7 g/dL 2.2-4.2 [facility] Urea nitrogen/Creatinine [Mass ratio] 6.4 mg/mg 10- [facility] Laboratory - Chemistry and C hemistry - challengeOrdered By: Jacquie Beckwith on 05-01-2023 Magnesium [Mass/Vol] 2.1 mg/dL 1.6-2.6 [facility] Laboratory - CoagulationOrde red By: Marcio Cardona on 05-01-2023 INR Coag (Bld) [Relative time] 1.0 {INR} [facility] PT Coag (PPP) [Time] 13.5 s 11.7-14.9 [facility] Laboratory - Drug toxicology Ordered By: Marcio Cardona on 05-01-2023 Amphetamines Ql (U) Negative <1000 ng/mL [facility] Benzodiazepines Ql (U) Negative < 200 ng/mL [facility] Cannabinoids Screen Ql (U) Negative < 50 ng/mL [facility] Cocaine Ql (U) Negative < 300 ng/mL [facility] Opiates Ql (U) Negative < 300 ng/mL [facility] Laboratory - Hematology and Cell countsOrdered By: Marcio Cardona on 05-01-2023 MCH (RBC) [Entitic mass] 32.9 pg 27.0-32.0 [facility] MCHC (RBC) [Mass/Vol] 35.3 g/dL 32 [facility] Nucleated RBC/100 WBC (Bld) [Ratio] 0 % 0-5 [facility] Platelet mean volume (Bld) [Entitic vol] 9.1 fL 6.2-12.0 [facility] Platelets (Bld) [#/Vol] 371 10*3/uL 150-450 [facility] No Panel InformationOrdered By: Marcio Cardona on 05-01-2023 Estimated GFR (MDRD) Amer 125 mL/min >60 [facility] Comment on above: GFR Calc Estimated GFR (MDRD) Non-Af Amer 103 mL/min >60 [facility] Comment on above: Non- GFR Calc Ethyl Alcohol Level 208.0 mg/dL [facility] Comment on above: The serum:whole bloo d ethanol ratio is approximately 1.14and varies slightly with hematocrit. Medical Alcohol reference interval and critical value innon-tolerant individuals; 50 - 100 Impairment 100 Intoxication 100 - 250 Severe Poisoning 250 - 400 Deep/possible fatal coma MDMA (Ecstasy) Screen Negative < 500 ng/mL [facility] Urine Barbiturates Screen Negative < 200 ng/mL [facility] Urine Drug Screen Comment [facility] Comment on above: CONFIRMATORY TESTING FOR [...] Methadone Screen Negative < 300 ng/mL [facility] RBC Auto (Bld) [#/Vol]Ordere d By: Marcio Cardona on 05-01-2023 RBC (Bld) [#/Vol] 5.50 10*6/uL 4.6-6.2 [facility] Review by pathologistOrdered By: Marcio Cardona on 05-01-2023 Pathologist review Isacc (Unsp spec) [Interp] Cheryl holland [facility] Pathologist review Isacc (Unsp spec) [Interp] Reviewed [facility] Comment on above: Previous reported re sult: Cheryl holland Edited by: МАРИНА on 05/02/23:0932PolycythemiaClinical correlation necessary.Mahesh Sharma M.D. 05/02/23 AMENDED REPORT 05/02/23 0932 PATH REV previously reported as: Cheryl holland Serum or plasma calcium gaetano urement (mass/volume)Ordered By: Marcio Cardona on 05-01-2023 Calcium [Mass/Vol] 8.6 mg/dL 8.5-10.1 [facility] Serum or plasma creatinine m easurement (mass/volume)Ordered By: Marcio Cardona on 05-01-2023 Creatinine [Mass/Vol] 0.94 mg/dL 0.70-1.30 [facility] Comment on above: The validity of the calculated GFR & GFRAA in patients over 70 years has not been determined. Clinical correlation is essential. Serum or plasma urea nitroge n measurement (mass/volume)Ordered By: Marcio Cardona on 05-01-2023 Urea nitrogen [Mass/Vol] 6 mg/dL 7-18 [facility] Thin prep Papanicolaou smear with manual screeningOrdered By: Marcio Cardona on 05-01-2023 Thin prep Papanicolaou smear with manual screening 4.1 g/dL 3.2-5.0 [facility] Thin prep Papanicolaou smear with manual screening 31 U/L 15-37 [facility] Thin prep Papanicolaou smear with manual screening 10 5-15 [facility] Urine phencyclidine (PCP) de tectionOrdered By: Marcio Cardona on 05-01-2023 Phencyclidine Ql (U) Negative < 25 ng/mL [facility] Basophil percentageOrdered B y: Jacquie Beckwith on 03-23-2023 Basophil percentage 2.9 mg/dL 2.5-4.9 [facility] Laboratory - Chemistry and C hemistry - challengeOrdered By: Jacquie Beckwith on 03-23-2023 Magnesium [Mass/Vol] 2.0 mg/dL 1.6-2.6 [facility] Laboratory - CoagulationOrde red By: Stan Thomas on 03-23-2023 INR Coag (Bld) [Relative time] 0.9 {INR} [facility] PT Coag (PPP) [Time] 12.2 s 11.7-14.9 [facility] Absolute lymphocyte countOrd ered By: Daquan Reid on 03-22-2023 Lymphocytes Auto (Unsp spec) [#/Vol] 3.11 10*3/uL 0.83-4.51 [facility] Automated lymphocyte count a s percentage of total leukocytesOrdered By: Daquan Reid on 03-22-2023 Lymphocytes/100 WBC Auto (Unsp spec) 34.2 % 19-41 [facility] Basophil percentageOrdered B y: Daquan Reid on 03-22-2023 Basophils/100 WBC (Bld) 0.8 % 0-1 [facility] Bilirubin [Mass/Vol] 0.70 mg/dL 0.20-1.[address] [facility] Comment on above: For patients on eltr ombopag therapy, use of Dimension [place] TBIL is not recommended. Chloride [Moles/Vol] 108 mmol/L 98-107 [facility] Eosinophils/100 WBC (Bld) 0.1 % 0-5 [facility] Glucose [Mass/Vol] 117 mg/dL 74-106 [facility] Comment on above: Fasting Glucose resu lt from 100 to 125 mg/dL suggests IMPAIRED HOMEOSTASIS per A.D.A. criteria. Hemoglobin (Bld) [Mass/Vol] 16.8 g/dL 13.0-16.5 [facility] Monocytes/100 WBC (Bld) 6.3 % 0-10 [facility] Neutrophils (Bld) [#/Vol] 5.3 10*3/uL 2.0-7.7 [facility] Neutrophils/100 WBC (Bld) 58.3 % 47-70 [facility] Potassium [Moles/Vol] 4.0 mmol/L 3.5-5.1 [facility] Protein [Mass/Vol] 8.1 g/dL 6.4-8.2 [facility] Sodium [Moles/Vol] 140 mmol/L 136-145 [facility] WBC (Bld) [#/Vol] 9.1 10*3/uL 4.4-11.0 [facility] Determination of erythrocyte mean corpuscular volume (MCV)Ordered By: Daquan Reid on 03-22-2023 MCV (RBC) [Entitic vol] 88.6 fL 80-94 [facility] Erythrocyte distribution wid th ratioOrdered By: Daquan Reid on 03-22-2023 Erythrocyte distribution width (RBC) [Ratio] 12.4 % 11.6-14.6 [facility] Erythrocyte distribution wid th standard deviationOrdered By: Daquan Reid on 03-22-2023 Erythrocyte distribution width (RBC) [Entitic vol] 40.2 fL 35.1-43.9 [facility] Hematocrit Auto (Bld) [Volum e fraction]Ordered By: Daquan Reid on 03-22-2023 Hematocrit (Bld) [Volume fraction] 46.8 % 40-54 [facility] Immature granulocytes/100 WB C Auto (Bld)Ordered By: Daquan Reid on 03-22-2023 Immature granulocytes/100 WBC (Bld) 0.300 % 0.0-0.9 [facility] Comment on above: IG% - Immature Granu locytes (promyelocytes, myelocytes and metamyelocytes) > 1% indicates that a LEFT SHIFT is Present. Laboratory - Chemistry and C hemistry - challengeOrdered By: Daquan Reid on 03-22-2023 Albumin/Globulin [Mass ratio] 1.2 {ratio} 0.9-2.4 [facility] ALP [Catalytic activity/Vol] 105 U/L 45-117 [facility] ALT [Catalytic activity/Vol] 27 U/L 16-61 [facility] CO2 [Moles/Vol] 25.0 mmol/L 21.0-32.0 [facility] Globulin (S) [Mass/Vol] 3.7 g/dL 2.2-4.2 [facility] Urea nitrogen/Creatinine [Mass ratio] 8.1 mg/mg 10-20 [facility] Laboratory - Chemistry and C hemistry - challengeOrdered By: Stan Thomas on 03-22-2023 Amylase [Catalytic activity/Vol] 34 U/L 15-85 [facility] Laboratory - Drug toxicology Ordered By: Daquan Reid on 03-22-2023 Amphetamines Ql (U) Negative <1000 ng/mL [facility] Benzodiazepines Ql (U) Negative < 200 ng/mL [facility] Cannabinoids Screen Ql (U) Negative < 50 ng/mL [facility] Cocaine Ql (U) Negative < 300 ng/mL [facility] Opiates Ql (U) Negative < 300 ng/mL [facility] Laboratory - Hematology and Cell countsOrdered By: Daquan Reid on 03-22-2023 MCH (RBC) [Entitic mass] 31.8 pg 27.0-32.0 [facility] MCHC (RBC) [Mass/Vol] 35.9 g/dL 32-36 [facility] Nucleated RBC/100 WBC (Bld) [Ratio] 0 % 0-5 [facility] Platelet mean volume (Bld) [Entitic vol] 9.2 fL 6.2-12.0 [facility] Platelets (Bld) [#/Vol] 367 10*3/uL 150-450 [facility] No Panel InformationOrdered By: Daquan Reid on 03-22-2023 Estimated Creatinine Clearance Calc 138.63 ml/min [facility] Estimated GFR (MDRD) Amer 137 mL/min >60 [facility] Comment on above: GFR Calc Estimated GFR (MDRD) Non-Af Amer 113 mL/min >60 [facility] Comment on above: Non- GFR Calc Ethyl Alcohol Level 212.0 mg/dL [facility] Comment on above: The serum:whole bloo d ethanol ratio is approximately 1.14and varies slightly with hematocrit. Medical Alcohol reference interval and critical value innon-tolerant individuals; 50 - 100 Impairment 100 Intoxication 100 - 250 Severe Poisoning 250 - 400 Deep/possible fatal coma MDMA (Ecstasy) Screen Negative < 500 ng/mL [facility] Urine Barbiturates Screen Negative < 200 ng/mL [facility] Urine Drug Screen Comment See comment [facility] Comment on above: CONFIRMATORY TESTING FOR [...] Methadone Screen Negative < 300 ng/mL [facility] RBC Auto (Bld) [#/Vol]Ordere d By: Daquan Reid on 03-22-2023 RBC (Bld) [#/Vol] 5.28 10*6/uL 4.6-6.2 [facility] Serum or plasma calcium gaetano urement (mass/volume)Ordered By: Daquan Reid on 03-22-2023 Calcium [Mass/Vol] 9.1 mg/dL 8.5-10.1 [facility] Serum or plasma creatinine m easurement (mass/volume)Ordered By: Daquan Reid on 03-22-2023 Creatinine [Mass/Vol] 0.86 mg/dL 0.70-1.30 [facility] Comment on above: The validity of the calculated GFR & GFRAA in patients over 70 years has not been determined. Clinical correlation is essential. Serum or plasma urea nitroge n measurement (mass/volume)Ordered By: Daquan Reid on 03-22-2023 Urea nitrogen [Mass/Vol] 7 mg/dL 7-18 [facility] Thin prep Papanicolaou smear with manual screeningOrdered By: Daquan Reid on 03-22-2023 Thin prep Papanicolaou smear with manual screening 4.4 g/dL 3.2-5.0 [facility] Thin prep Papanicolaou smear with manual screening 18 U/L 15-37 [facility] Thin prep Papanicolaou smear with manual screening 7 5-15 [facility] Urine phencyclidine (PCP) de tectionOrdered By: Daquan Reid on 03-22-2023 Phencyclidine Ql (U) Negative < 25 ng/mL [facility] Absolute lymphocyte countOrd ered By: Cadence Cornelius on 08-05-2022 Lymphocytes Auto (Unsp spec) [#/Vol] 2.36 10*3/uL 0.83-4.51 [facility] Basophil percentageOrdered B y: Cadence Cornelius on 08-05-2022 Basophils/100 WBC (Bld) 1.0 % 0-1 [facility] Bilirubin [Mass/Vol] 0.70 mg/dL 0.20-1.00 [facility] Comment on above: For patients on eltr ombopag therapy, use of Dimension [place] TBIL is not recommended. Chloride [Moles/Vol] 109 mmol/L 98-107 [facility] Eosinophils/100 WBC (Bld) 0.3 % 0-5 [facility] Glucose [Mass/Vol] 116 mg/dL 74-106 [facility] Comment on above: Fasting Glucose resu lt from 100 to 125 mg/dL suggests IMPAIRED HOMEOSTASIS per A.D.A. criteria. Neutrophils (Bld) [#/Vol] 4.0 10*3/uL 2.0-7.7 [facility] Neutrophils/100 WBC (Bld) 56.8 % 47-70 [facility] Potassium [Moles/Vol] 4.0 mmol/L 3.5-5.1 [facility] Protein [Mass/Vol] 6.4 g/dL 6.4-8.2 [facility] Sodium [Moles/Vol] 143 mmol/L 136-145 [facility] WBC (Bld) [#/Vol] 7.1 10*3/uL 4.4-11.0 [facility] Blood erythrocytes count (nu mber/volume)Ordered By: Cadence Cornelius on 08-05-2022 RBC (Bld) [#/Vol] 4.56 10*6/uL 4.6-6.2 [facility] Blood hemoglobin measurement (mass/volume)Ordered By: Cadence Cornelius on 08-05-2022 Hemoglobin (Bld) [Mass/Vol] 14.6 g/dL 13.0-16.5 [facility] Blood lymphocytes/100 leukoc ytesOrdered By: Cadence Cornelius on 08-05-2022 Lymphocytes/100 WBC (Bld) 33.2 % 19-41 [facility] Blood monocytes/100 leukocyt esOrdered By: Cadence Cornelius on 08-05-2022 Monocytes/100 WBC (Bld) 8.3 % 0-10 [facility] Blood platelet mean volumeOr dered By: Cadence Cornelius on 08-05-2022 Platelet mean volume (Bld) [Entitic vol] 9.1 fL 6.2-12.0 [facility] Determination of erythrocyte mean corpuscular volume (MCV)Ordered By: Cadence Cornelius on 08-05-2022 MCV (RBC) [Entitic vol] 90.6 fL 80-94 [facility] Direct bilirubinOrdered By: Cadence Cornelius on 08-05-2022 Bilirubin.direct [Mass/Vol] 0.19 mg/dL 0.00-0.30 [facility] Hematocrit Auto (Bld) [Volum e fraction]Ordered By: Cadence Cornelius on 08-05-2022 Hematocrit (Bld) [Volume fraction] 41.3 % 40-54 [facility] Laboratory - Chemistry and C hemistry - challengeOrdered By: Cadence Cornelius on 08-05-2022 ALP [Catalytic activity/Vol] 73 U/L 45-117 [facility] ALT [Catalytic activity/Vol] 24 U/L 16-61 [facility] CO2 [Moles/Vol] 28.0 mmol/L 21.0-32.0 [facility] Globulin (S) [Mass/Vol] 2.9 g/dL 2.2-4.2 [facility] Urea nitrogen/Creatinine [Mass ratio] 10.0 mg/mg 10-20 [facility] Laboratory - Drug toxicology Ordered By: Cadence Cornelius on 08-05-2022 Amphetamines Ql (U) Negative <1000 ng/mL [facility] Benzodiazepines Ql (U) Negative < 200 ng/mL [facility] Cannabinoids Screen Ql (U) Negative < 50 ng/mL [facility] Cocaine Ql (U) Positive < 300 ng/mL [facility] Opiates Ql (U) Negative < 300 ng/mL [facility] Laboratory - Hematology and Cell countsOrdered By: Cadence Cornelius on 08-05-2022 Erythrocyte distribution width (RBC) [Entitic vol] 38.1 fL 35.1-43.9 [facility] Erythrocyte distribution width (RBC) [Ratio] 11.6 % 11.6-14.6 [facility] Immature granulocytes/100 WBC (Bld) 0.400 % 0.0-0.9 [facility] Comment on above: IG% - Immature Granu locytes (promyelocytes, myelocytes and metamyelocytes) > 1% indicates that a LEFT SHIFT is Present. MCH (RBC) [Entitic mass] 32.0 pg 27.0-32.0 [facility] Nucleated RBC/100 WBC (Bld) [Ratio] 0 % 0[facility]5 [facility] [Mass/Vol]Or dered By: Cadence Cornelius on 08-05-2022 MCHC (RBC) [Mass/Vol] 35.4 g/dL 32-36 [facility] No Panel InformationOrdered By: Cadence Cornelius on 08-05-2022 MDMA (Ecstasy) Screen Negative < 500 ng/mL [facility] Urine Barbiturates Screen Negative < 200 ng/mL [facility] Urine Drug Screen Comment [facility] Comment on above: CONFIRMATORY TESTING FOR [...] Methadone Screen Negative < 300 ng/mL [facility] Estimated Creatinine Clearance Calc 150.34 ml/min [facility] Estimated GFR (MDRD) Amer 151 mL/min >60 [facility] Comment on above: GFR Calc Estimated GFR (MDRD) Non-Af Amer 125 mL/min >60 [facility] Comment on above: Non- GFR Calc Ethyl Alcohol Level 219.0 mg/dL [facility] Comment on above: The serum:whole bloo d ethanol ratio is approximately 1.14and varies slightly with hematocrit. Medical Alcohol reference interval and critical value innon-tolerant individuals; 50 - 100 Impairment 100 Intoxication 100 - 250 Severe Poisoning 250 - 400 Deep/possible fatal coma Platelets bldOrdered By: Geraldine Cornelius on 08-05-2022 Platelets (Bld) [#/Vol] 249 10*3/uL 150-450 [facility] Serum or plasma albumin gaetano urement (mass/volume)Ordered By: Cadence Cornelius on 08-05-2022 Albumin [Mass/Vol] 3.5 g/dL 3.2-5.0 [facility] Serum or plasma calcium gaetano urement (mass/volume)Ordered By: Cadence Cornelius on 08-05-2022 Calcium [Mass/Vol] 8.2 mg/dL 8.5-10.1 [facility] Serum or plasma creatinine m easurement (mass/volume)Ordered By: Cadence Cornelius on 08-05-2022 Creatinine [Mass/Vol] 0.80 mg/dL 0.70-1.30 [facility] Comment on above: The validity of the calculated GFR & GFRAA in patients over 70 years has not been determined. Clinical correlation is essential. Serum or plasma urea nitroge n measurement (mass/volume)Ordered By: Cadence Cornelius on 08-05-2022 Urea nitrogen [Mass/Vol] 8 mg/dL 7-18 [facility] Thin prep Papanicolaou smear with manual screeningOrdered By: Cadence Cornelius on 08-05-2022 Thin prep Papanicolaou smear with manual screening 17 U/L 15-37 [facility] Thin prep Papanicolaou smear with manual screening 6 5-15 [facility] Urine phencyclidine (PCP) de tectionOrdered By: Cadence Cornelius on 08-05-2022 Phencyclidine Ql (U) Negative < 25 ng/mL [facility] Vital Signs Date Time Vital Sign Value Performing Clinician Facility 10-18-2024 15:50-0400 Body temperature 98.4 [degF] No Primary Care Physician [facility] 10-18-2024 15:50-0400 Diastolic blood pressure 63 mm[Hg] No Primary Care Physician [facility] 10-18-2024 15:50-0400 Heart rate 112 /min No Primary Care Physician [facility] 10-18-2024 15:50-0400 Respiratory rate 18 /min No Primary Care Physician [facility] 10-18-2024 15:50-0400 SaO2% (BldA) [Mass fraction] 97 % No Primary Care Physician [facility] 10-18-2024 15:50-0400 Systolic blood pressure 122 mm[Hg] No Primary Care Physician [facility] 10-18-2024 15:03-0400 Body height 180.34 cm No Primary Care Physician [facility] 10-18-2024 15:03-0400 Body mass index (BMI) [Ratio] 24 kg/m2 No Primary Care Physician [facility] 10-18-2024 15:03-0400 Body weight 78.2 kg No Primary Care Physician [facility] 10-14-2024 12:55-0400 Respiratory rate 16 /min Kristian Parekh MD Work Phone: [facility] 10-14-2024 12:43-0400 Body temperature 97.81 [degF] Kristian Parekh MD Work Phone: [facility] 10-14-2024 12:43-0400 Diastolic blood pressure 76 mm[Hg] Kristian Parekh MD Work Phone: [facility] 10-14-2024 12:43-0400 Heart rate 72 /min Kristian Parekh MD Work Phone: [facility] 10-14-2024 12:43-0400 SaO2% (BldA) [Mass fraction] 96 % Kristian Parekh MD Work Phone: [facility] 10-14-2024 12:43-0400 Systolic blood pressure 121 mm[Hg] Kristian Parekh MD Work Phone: [facility] 10-12-2024 23:15-0400 Body height 180.3 cm Kristian Parekh MD Work Phone: [facility] 10-12-2024 23:15-0400 Body mass index (BMI) [Ratio] 24.13 kg/m2 Kristian Parekh MD Work Phone: [facility] 10-12-2024 23:15-0400 Body weight 78.47 kg Kristian Parekh MD Work Phone: [facility] 10-11-2024 15:13-0400 Respiratory rate 16 /min [facility] 10-11-2024 14:29-0400 Body temperature 98.01 [degF] [facility] 10-11-2024 14:29-0400 Diastolic blood pressure 76 mm[Hg] [facility] 10-11-2024 14:29-0400 Heart rate 77 /min [facility] 10-11-2024 14:29-0400 SaO2% (BldA) [Mass fraction] 97 % [facility] 10-11-2024 14:29-0400 Systolic blood pressure 124 mm[Hg] [facility] 10-08-2024 00:54-0400 Body height 180.3 cm [facility] 10-08-2024 00:54-0400 Body mass index (BMI) [Ratio] 24.41 kg/m2 [facility] 10-08-2024 00:54-0400 Body weight 79.38 kg [facility] 10-05-2024 13:15-0400 Respiratory rate 16 /min [facility] 10-05-2024 11:25-0400 Diastolic blood pressure 76 mm[Hg] [facility] 10-05-2024 11:25-0400 Heart rate 107 /min [facility] 10-05-2024 11:25-0400 SaO2% (BldA) [Mass fraction] 98 % [facility] 10-05-2024 11:25-0400 Systolic blood pressure 124 mm[Hg] [facility] 10-05-2024 11:00-0400 Body temperature 100.9 [degF] [facility] 10-05-2024 04:00-0400 Body height 180.3 cm [facility] 10-05-2024 04:00-0400 Body mass index (BMI) [Ratio] 23.98 kg/m2 [facility] 10-05-2024 04:00-0400 Body weight 78 kg [facility] 10-04-2024 11:56-0400 Respiratory rate 16 /min [facility] 10-04-2024 11:23-0400 Body temperature 98.01 [degF] [facility] 10-04-2024 11:23-0400 Diastolic blood pressure 70 mm[Hg] [facility] 10-04-2024 11:23-0400 Heart rate 110 /min [facility] 10-04-2024 11:23-0400 SaO2% (BldA) [Mass fraction] 96 % [facility] 10-04-2024 11:23-0400 Systolic blood pressure 150 mm[Hg] [facility] 10-04-2024 07:15-0400 Body height 180.3 cm [facility] 10-04-2024 07:15-0400 Body mass index (BMI) [Ratio] 24.27 kg/m2 [facility] 10-04-2024 07:15-0400 Body weight 78.93 kg [facility] 10-02-2024 08:18-0400 Body temperature 97.9 [degF] No Primary Care Physician [facility] 10-02-2024 08:18-0400 Diastolic blood pressure 78 mm[Hg] No Primary Care Physician [facility] 10-02-2024 08:18-0400 Heart rate 97 /min No Primary Care Physician [facility] 10-02-2024 08:18-0400 Respiratory rate 16 /min No Primary Care Physician [facility] 10-02-2024 08:18-0400 SaO2% (BldA) [Mass fraction] 98 % No Primary Care Physician [facility] 10-02-2024 08:18-0400 Systolic blood pressure 132 mm[Hg] No Primary Care Physician [facility] 10-02-2024 04:55-0400 Body height 180.34 cm No Primary Care Physician [facility] 10-02-2024 04:55-0400 Body mass index (BMI) [Ratio] 25.4 kg/m2 No Primary Care Physician [facility] 10-02-2024 04:55-0400 Body weight 83 kg No Primary Care Physician [facility] 10-02-2024 04:06-0400 Body height 180.34 cm No Primary Care Physician [facility] 10-02-2024 04:06-0400 Body mass index (BMI) [Ratio] 25.4 kg/m2 No Primary Care Physician [facility] 10-02-2024 04:06-0400 Body temperature 98.4 [degF] No Primary Care Physician [facility] 10-02-2024 04:06-0400 Body weight 83 kg No Primary Care Physician [facility] 10-02-2024 04:06-0400 Diastolic blood pressure 92 mm[Hg] No Primary Care Physician [facility] 10-02-2024 04:06-0400 Heart rate 97 /min No Primary Care Physician [facility] 10-02-2024 04:06-0400 Respiratory rate 18 /min No Primary Care Physician [facility] 10-02-2024 04:06-0400 SaO2% (BldA) [Mass fraction] 99 % No Primary Care Physician [facility] 10-02-2024 04:06-0400 Systolic blood pressure 144 mm[Hg] No Primary Care Physician [facility] 10-01-2024 14:00-0400 Body temperature 97.6 [degF] No Primary Care Physician [facility] 10-01-2024 14:00-0400 Diastolic blood pressure 73 mm[Hg] No Primary Care Physician [facility] 10-01-2024 14:00-0400 Heart rate 54 /min No Primary Care Physician [facility] 10-01-2024 14:00-0400 Respiratory rate 12 /min No Primary Care Physician [facility] 10-01-2024 14:00-0400 SaO2% (BldA) [Mass fraction] 98 % No Primary Care Physician [facility] 10-01-2024 14:00-0400 Systolic blood pressure 131 mm[Hg] No Primary Care Physician [facility] 10-01-2024 10:00-0400 Inhaled oxygen flow rate 99 L/min No Primary Care Physician [facility] 10-01-2024 01:52-0400 Body height 180.34 cm No Primary Care Physician [facility] 10-01-2024 01:52-0400 Body mass index (BMI) [Ratio] 25.7 kg/m2 No Primary Care Physician [facility] 10-01-2024 01:52-0400 Body weight 83.46 kg No Primary Care Physician [facility] 06-11-2024 07:27-0400 Diastolic blood pressure 83 mm[Hg] [facility] 06-11-2024 07:27-0400 Heart rate 80 /min [facility] 06-11-2024 07:27-0400 Respiratory rate 18 /min [facility] 06-11-2024 07:27-0400 SaO2% (BldA) [Mass fraction] 98 % [facility] 06-11-2024 07:27-0400 Systolic blood pressure 126 mm[Hg] [facility] 06-11-2024 04:18-0400 Body temperature 97.3 [degF] [facility] 06-11-2024 04:14-0400 Body height 180.3 cm [facility] 06-11-2024 04:14-0400 Body mass index (BMI) [Ratio] 24.55 kg/m2 [facility] 06-11-2024 04:14-0400 Body weight 79.83 kg [facility] 06-10-2024 22:29-0400 Body height 180.3 cm [facility] 06-10-2024 22:29-0400 Body mass index (BMI) [Ratio] 24.55 kg/m2 [facility] 06-10-2024 22:29-0400 Body weight 79.83 kg [facility] 06-10-2024 22:26-0400 Body temperature 96.3 [degF] [facility] 06-10-2024 22:26-0400 Diastolic blood pressure 96 mm[Hg] [facility] 06-10-2024 22:26-0400 Heart rate 108 /min [facility] 06-10-2024 22:26-0400 Respiratory rate 16 /min [facility] 06-10-2024 22:26-0400 SaO2% (BldA) [Mass fraction] 97 % [facility] 06-10-2024 22:26-0400 Systolic blood pressure 144 mm[Hg] [facility] 01-28-2024 13:37-0500 Body height 180.3 cm Christy Shital FORM TAMPING MACHINE OPERATOR - INTERFACE DESIGNER Work Phone: [facility] 01-28-2024 13:37-0500 Body mass index (BMI) [Ratio] 27.06 kg/m2 Christy Shital FORM TAMPING MACHINE OPERATOR - INTERFACE DESIGNER Work Phone: [facility] 01-28-2024 13:37-0500 Body temperature 98.4 [degF] Christy Shital FORM TAMPING MACHINE OPERATOR - INTERFACE DESIGNER Work Phone: [facility] 01-28-2024 13:37-0500 Body weight 88 kg Christy Shital FORM TAMPING MACHINE OPERATOR - INTERFACE DESIGNER Work Phone: [facility] 01-28-2024 13:37-0500 Diastolic blood pressure 75 mm[Hg] Christy Shital FORM TAMPING MACHINE OPERATOR - INTERFACE DESIGNER Work Phone: [facility] 01-28-2024 13:37-0500 Heart rate 90 /min Christy Shital FORM TAMPING MACHINE OPERATOR - INTERFACE DESIGNER Work Phone: [facility] 01-28-2024 13:37-0500 Respiratory rate 17 /min Christy Shital FORM TAMPING MACHINE OPERATOR - INTERFACE DESIGNER Work Phone: [facility] 01-28-2024 13:37-0500 SaO2% (BldA) [Mass fraction] 98 % Christy Shital FORM TAMPING MACHINE OPERATOR - INTERFACE DESIGNER Work Phone: [facility] 01-28-2024 13:37-0500 Systolic blood pressure 117 mm[Hg] Christy Shital FORM TAMPING MACHINE OPERATOR - INTERFACE DESIGNER Work Phone: [facility] 06-20-2023 19:15-0400 Body temperature 97.88 [degF] OLIVIER VASQUES FORM TAMPING MACHINE OPERATOR-REFERENCE TEST CLERK [facility] 06-20-2023 19:15-0400 Diastolic Blood Pressure Non-Invasive 90 mm[Hg] OLIVIER VASQUES FORM TAMPING MACHINE OPERATOR-REFERENCE TEST CLERK [facility] 06-20-2023 19:15-0400 Heart rate 87 /min OLIVIER VASQUES FORM TAMPING MACHINE OPERATOR-REFERENCE TEST CLERK [facility] 06-20-2023 19:15-0400 Reason For Taking VItal Signs OLIVIER VASQUES FORM TAMPING MACHINE OPERATOR-REFERENCE TEST CLERK [facility] 06-20-2023 19:15-0400 Respiratory rate 16 /min OLIVIER VASQUES FORM TAMPING MACHINE OPERATOR-REFERENCE TEST CLERK [facility] 06-20-2023 19:15-0400 Systolic Blood Pressure Non-Invasive 144 mm[Hg] OLIVIER VASQUES FORM TAMPING MACHINE OPERATOR-REFERENCE TEST CLERK [facility] 06-20-2023 17:05-0400 Body temperature 97.88 [degF] OLIVIER VASQUES FORM TAMPING MACHINE OPERATOR-REFERENCE TEST CLERK [facility] 06-20-2023 17:05-0400 Diastolic Blood Pressure Non-Invasive 87 mm[Hg] OLIVIER VASQUES FORM TAMPING MACHINE OPERATOR-REFERENCE TEST CLERK [facility] 06-20-2023 17:05-0400 Heart rate 93 /min OLIVIER VASQUES FORM TAMPING MACHINE OPERATOR-REFERENCE TEST CLERK [facility] 06-20-2023 17:05-0400 Reason For Taking VItal Signs OLIVIER VASQUES FORM TAMPING MACHINE OPERATOR-REFERENCE TEST CLERK [facility] 06-20-2023 17:05-0400 Respiratory rate 14 /min OLIVIER VASQUES FORM TAMPING MACHINE OPERATOR-REFERENCE TEST CLERK [facility] 06-20-2023 17:05-0400 Systolic Blood Pressure Non-Invasive 134 mm[Hg] OLIVIER VASQUES FORM TAMPING MACHINE OPERATOR-REFERENCE TEST CLERK [facility] 06-20-2023 14:30-0400 Diastolic Blood Pressure Non-Invasive 93 mm[Hg] OLIVIER VASQUES FORM TAMPING MACHINE OPERATOR-REFERENCE TEST CLERK [facility] 06-20-2023 14:30-0400 Systolic Blood Pressure Non-Invasive 138 mm[Hg] OLIVIER VASQUES FORM TAMPING MACHINE OPERATOR-REFERENCE TEST CLERK [facility] 06-20-2023 14:24-0400 Body temperature 97.52 [degF] OLIVIER VASQUES FORM TAMPING MACHINE OPERATOR-REFERENCE TEST CLERK [facility] 06-20-2023 14:24-0400 Heart rate 80 /min OLIVIER VASQUES FORM TAMPING MACHINE OPERATOR-REFERENCE TEST CLERK [facility] 06-20-2023 14:24-0400 Reason For Taking VItal Signs OLIVIER VASQUES FORM TAMPING MACHINE OPERATOR-REFERENCE TEST CLERK [facility] 06-20-2023 14:24-0400 Respiratory rate 14 /min OLIVIER VASQUES FORM TAMPING MACHINE OPERATOR-REFERENCE TEST CLERK [facility] 06-20-2023 05:41-0400 Body height 180.3 cm OLIVIER LAYO FORM TAMPING MACHINE OPERATOR-REFERENCE TEST CLERK [facility] 06-20-2023 05:41-0400 Body weight 95.3 kg OLIVIER LAYO FORM TAMPING MACHINE OPERATOR-REFERENCE TEST CLERK [facility] 06-20-2023 05:41-0400 Body weight 29.32 kg/m2 OLIVIER LAYO FORM TAMPING MACHINE OPERATOR-REFERENCE TEST CLERK [facility] 06-20-2023 05:35-0400 Blood Pressure Location OLIVIER VASQUES FORM TAMPING MACHINE OPERATOR-REFERENCE TEST CLERK [facility] 06-20-2023 04:49-0400 Blood Pressure Location OLIVIER LAYO FORM TAMPING MACHINE OPERATOR-REFERENCE TEST CLERK [facility] 06-20-2023 04:49-0400 Blood Pressure Method OLIVIER VASQUES FORM TAMPING MACHINE OPERATOR-REFERENCE TEST CLERK [facility] 06-20-2023 04:49-0400 Heart rate 80 /min OLIVIER VASQUES FORM TAMPING MACHINE OPERATOR-REFERENCE TEST CLERK [facility] 06-20-2023 04:18-0400 Blood Pressure Location OLIVIER LAYO FORM TAMPING MACHINE OPERATOR-REFERENCE TEST CLERK [facility] 06-20-2023 04:18-0400 Blood Pressure Method OLIVIER VASQUES FORM TAMPING MACHINE OPERATOR-REFERENCE TEST CLERK [facility] 06-20-2023 04:18-0400 Heart rate 87 /min OLIVIER VASQUES FORM TAMPING MACHINE OPERATOR-REFERENCE TEST CLERK [facility] 06-20-2023 03:04-0400 Blood Pressure Method OLIVIER VASQUES FORM TAMPING MACHINE OPERATOR-REFERENCE TEST CLERK [facility] 06-20-2023 03:04-0400 Heart rate 107 /min OLIVIER VASQUES FORM TAMPING MACHINE OPERATOR-REFERENCE TEST CLERK [facility] 06-20-2023 02:15-0400 Body height 180.3 cm OLIVIER VASQUES FORM TAMPING MACHINE OPERATOR-REFERENCE TEST CLERK [facility] 06-20-2023 02:15-0400 Body weight 95 kg OLIVIER LAYO FORM TAMPING MACHINE OPERATOR-REFERENCE TEST CLERK [facility] 06-20-2023 00:48-0400 Body temperature 97.4 [degF] No Primary Care Physician [facility] 06-20-2023 00:48-0400 Diastolic blood pressure 85 mm[Hg] No Primary Care Physician [facility] 06-20-2023 00:48-0400 Heart rate 68 /min No Primary Care Physician [facility] 06-20-2023 00:48-0400 Respiratory rate 16 /min No Primary Care Physician [facility] 06-20-2023 00:48-0400 SaO2% (BldA) [Mass fraction] 100 % No Primary Care Physician [facility] 06-20-2023 00:48-0400 Systolic blood pressure 151 mm[Hg] No Primary Care Physician [facility] 06-19-2023 20:58-0400 Body height 180.34 cm No Primary Care Physician [facility] 06-19-2023 20:58-0400 Body mass index (BMI) [Ratio] 29 kg/m2 No Primary Care Physician [facility] 06-19-2023 20:58-0400 Body weight 94.46 kg No Primary Care Physician [facility] 05-01-2023 13:42-0400 Body temperature 97.4 [degF] No Primary Care Physician [facility] 05-01-2023 13:42-0400 Diastolic blood pressure 78 mm[Hg] No Primary Care Physician [facility] 05-01-2023 13:42-0400 Heart rate 55 /min No Primary Care Physician [facility] 05-01-2023 13:42-0400 Respiratory rate 17 /min No Primary Care Physician [facility] 05-01-2023 13:42-0400 SaO2% (BldA) [Mass fraction] 98 % No Primary Care Physician [facility] 05-01-2023 13:42-0400 Systolic blood pressure 138 mm[Hg] No Primary Care Physician [facility] 05-01-2023 06:45-0400 Body height 180.34 cm No Primary Care Physician [facility] 05-01-2023 06:45-0400 Body mass index (BMI) [Ratio] 28 kg/m2 No Primary Care Physician [facility] 05-01-2023 06:45-0400 Body weight 91.4 kg No Primary Care Physician [facility] 05-01-2023 05:52-0400 Body temperature 97.1 [degF] No Primary Care Physician [facility] 05-01-2023 05:52-0400 Diastolic blood pressure 84 mm[Hg] No Primary Care Physician [facility] 05-01-2023 05:52-0400 Heart rate 96 /min No Primary Care Physician [facility] 05-01-2023 05:52-0400 Respiratory rate 14 /min No Primary Care Physician [facility] 05-01-2023 05:52-0400 SaO2% (BldA) [Mass fraction] 99 % No Primary Care Physician [facility] 05-01-2023 05:52-0400 Systolic blood pressure 124 mm[Hg] No Primary Care Physician [facility] 05-01-2023 05:05-0400 Body height 180.34 cm No Primary Care Physician [facility] 03-23-2023 10:40-0500 Body temperature 98.3 [degF] No Primary Care Physician [facility] 03-23-2023 10:40-0500 Diastolic blood pressure 84 mm[Hg] No Primary Care Physician [facility] 03-23-2023 10:40-0500 Heart rate 87 /min No Primary Care Physician [facility] 03-23-2023 10:40-0500 Respiratory rate 16 /min No Primary Care Physician [facility] 03-23-2023 10:40-0500 SaO2% (BldA) [Mass fraction] 96 % No Primary Care Physician [facility] 03-23-2023 10:40-0500 Systolic blood pressure 133 mm[Hg] No Primary Care Physician [facility] 03-23-2023 05:34-0500 Body temperature 98.3 [degF] No Primary Care Physician [facility] 03-23-2023 05:34-0500 Diastolic blood pressure 58 mm[Hg] No Primary Care Physician [facility] 03-23-2023 05:34-0500 Heart rate 86 /min No Primary Care Physician [facility] 03-23-2023 05:34-0500 Respiratory rate 17 /min No Primary Care Physician [facility] 03-23-2023 05:34-0500 SaO2% (BldA) [Mass fraction] 98 % No Primary Care Physician [facility] 03-23-2023 05:34-0500 Systolic blood pressure 113 mm[Hg] No Primary Care Physician [facility] 03-23-2023 01:01-0500 Body height 180.34 cm No Primary Care Physician [facility] 03-23-2023 01:01-0500 Body mass index (BMI) [Ratio] 27.6 kg/m2 No Primary Care Physician [facility] 03-23-2023 01:01-0500 Body weight 89.81 kg No Primary Care Physician [facility] 03-22-2023 22:04-0500 Body height 180.34 cm No Primary Care Physician [facility] 03-22-2023 22:04-0500 Body mass index (BMI) [Ratio] 27.6 kg/m2 No Primary Care Physician [facility] 03-22-2023 22:04-0500 Body temperature 97.5 [degF] No Primary Care Physician [facility] 03-22-2023 22:04-0500 Body weight 89.81 kg No Primary Care Physician [facility] 03-22-2023 22:04-0500 Diastolic blood pressure 86 mm[Hg] No Primary Care Physician [facility] 03-22-2023 22:04-0500 Heart rate 108 /min No Primary Care Physician [facility] 03-22-2023 22:04-0500 Respiratory rate 18 /min No Primary Care Physician [facility] 03-22-2023 22:04-0500 SaO2% (BldA) [Mass fraction] 96 % No Primary Care Physician [facility] 03-22-2023 22:04-0500 Systolic blood pressure 135 mm[Hg] No Primary Care Physician [facility] 08-07-2022 08:32-0400 Body temperature 97.9 [degF] Dr. Foir Ridlye Work Phone: 7(219)922-065543 [place] [address] 08-07-2022 08:32-0400 Diastolic blood pressure 63 mm[Hg] Dr. Fior Ridley Work Phone: 4(574)742-902507 [place] [address] 08-07-2022 08:32-0400 Heart rate 81 /min Dr. Fior Ridley Work Phone: 8(963)952-572907 [place] [address] 08-07-2022 08:32-0400 Respiratory rate 18 /min Dr. Fior Ridley Work Phone: 5(675)059-042707 [place] [address] 08-07-2022 08:32-0400 SaO2% (BldA) [Mass fraction] 99 % Dr. Fior Ridley Work Phone: 6(349)118-353807 [place] [address] 08-07-2022 08:32-0400 Systolic blood pressure 125 mm[Hg] Dr. Fior Ridley Work Phone: 5(958)011-101807 [place] [address] 08-05-2022 18:27-0400 Body height 180.[address] Fior Ridley Work Phone: 6(949)629-478707 [place] [address] 08-05-2022 18:27-0400 Body mass index (BMI) [Ratio] 24.4 kg/m2 Dr. Fior Ridley Work Phone: 8(092)170-537907 [place] [address] 08-05-2022 18:27-0400 Body weight 79.[address] Fior Ridley Work Phone: 9(937)961-599107 [place] [address] 08-05-2022 17:22-0400 Respiratory rate 18 /min Dr. Fior Ridley Work Phone: 2(812)270-805807 [place] [address] 08-05-2022 17:11-0400 Body temperature 97.7 [degF] Dr. Fior Ridley Work Phone: [facility] 08-05-2022 17:11-0400 Diastolic blood pressure 68 mm[Hg] Dr. Fior Ridley Work Phone: [facility] 08-05-2022 17:11-0400 Heart rate 81 /min Dr. Fior Ridley Work Phone: [facility] 08-05-2022 17:11-0400 SaO2% (BldA) [Mass fraction] 97 % Dr. Fior Ridley Work Phone: [facility] 08-05-2022 17:11-0400 Systolic blood pressure 124 mm[Hg] Dr. Fior Ridley Work Phone: [facility] 08-05-2022 15:22-0400 Body height 180.[address] Fior Ridley Work Phone: [facility] 08-05-2022 15:22-0400 Body mass index (BMI) [Ratio] 27.1 kg/m2 Dr. Fior Ridley Work Phone: [facility] 08-05-2022 15:22-0400 Body weight 88.[address] Fior Ridley Work Phone: [facility] Encounters Encounter Date Encounter Type Care Provider Facility Start: 10-18-2024 End: 10-18-2024 Emergency department patient visit No Primary Care Physician -Emergency Department Work Phone: Start: 10-12-2024 End: 10-14-2024 ambulatory PHYSICIAN NO [facility] Start: 10-12-2024 End: 10-14-2024 Evaluation and management of inpatient Demetrius Wilder MD Work Phone: [facility] Rapid Diagnosis Start: 10-12-2024 End: 10-12-2024 Emergency department patient visit CORONA GUERRERO II [facility] Start: 10-08-2024 End: 10-11-2024 Evaluation and management of inpatient Corona Guerrero MD Work Phone: [facility] Trauma Start: 10-04-2024 End: 10-05-2024 Evaluation and management of inpatient Dawson Plascencia DO Work Phone: [facility] Trauma Intermediate Care Unit Start: 10-02-2024 End: 10-06-2024 Emergency department patient visit PHYSICIAN NO [facility] Start: 10-02-2024 End: 10-04-2024 Evaluation and management of inpatient Geoff Cadena DO Work Phone: [facility] Trauma Start: 10-02-2024 Non-patient / Non-visit Dr. Rachel martinez MD -[facility] Work Phone: Start: 10-02-2024 End: 10-02-2024 Emergency department patient visit No Primary Care Physician -Emergency Department Work Phone: Start: 10-01-2024 Non-patient / Non-visit Dr. Jacquie Beckwith MD -[facility] Work Phone: Start: 10-01-2024 ambulatory No Primary Car e Physician Facility[facility] Start: 10-01-2024 End: 10-01-2024 Evaluation and management of inpatient Dr. Rachel Stephen MD -Medical Surgical 3 Work Phone: Start: 09-30-2024 End: 10-01-2024 Emergency department patient visit SHWETA RAYA [facility] Start: 09-29-2024 End: 09-30-2024 Emergency department patient visit RACHEL NIELSEN [facility] Start: 09-27-2024 End: 09-28-2024 Emergency department patient visit RACHEL NIELSEN [facility] Start: 06-24-2024 End: 06-24-2024 Emergency department patient visit [facility] Start: 06-11-2024 End: 06-11-2024 Emergency department patient visit [facility] Comment on above: Chest pain, unspecif ied type (Primary Dx); Methamphetamine abuse (HCC); Alcohol abuse Start: 06-10-2024 End: 06-10-2024 Emergency department patient visit [facility] Start: 01-28-2024 End: 01-28-2024 Office outpatient visit 15 minutes Christy Retana APRN - INTERFACE DESIGNER Work Phone: [facility] Comment on above: Influenza A (Primary Dx); URI with cough and congestion; Generalized body aches Start: 01-28-2024 End: 01-28-2024 ambulatory CHRISTY RETANA [facility] Start: 07-25-2023 End: 07-25-2023 Emergency department patient visit Physician No [facility] Start: 06-20-2023 End: 06-20-2023 Emergency department patient visit KATYA GRIFFITH MD Facility:B Start: 06-20-2023 End: 06-20-2023 Observation OLIVIER VASQUES APRN-REFERENCE TEST CLERK [facility] Start: 06-19-2023 End: 06-20-2023 Emergency department patient visit No Primary Care Physician [facility]-Emergency Department Work Phone: Start: 05-01-2023 End: 05-01-2023 Evaluation and management of inpatient No Primary Care Physician [facility]-Intensive Care Unit Work Phone: Start: 03-23-2023 Non-patient / Non-visit No [facility] Physician [facility] Work Phone: Start: 03-23-2023 End: 03-23-2023 Evaluation and management of inpatient No Primary Care Physician [facility]-Medical Surgical 3 Work Phone: Start: 08-07-2022 Non-patient / Non-visit Dr. Franklin Ridley Work Phone: [facility] Start: 08-06-2022 Non-patient / Non-visit Dr. Franklin Ridley Work Phone: [facility] Start: 08-05-2022 Non-patient / Non-visit Dr. Franklin Ridley Work Phone: [facility] Start: 08-05-2022 End: 08-07-2022 Evaluation and management of inpatient Dr. Fior Ridley Work Phone: [facility]-Medical Surgical 3 Procedures Date Procedure Procedure Detail Performing Clinician Start: 10-14-2024 Creatinine blood Daisy Cheungalicia [place] REFERENCE TEST CLERK Work Phone: Start: 10-13-2024 EMS RUN SHEET Generic E ms Provider Start: 10-13-2024 Basic metabolic pane l calcium total Akilah Cervantes REFERENCE TEST CLERK Work Phone: Start: 10-12-2024 Blood ethanol measurement Akilah Cervantes REFERENCE TEST CLERK Work Phone: Start: 10-12-2024 Basic metabolic pane [...] Phone: Start: 10-08-2024 Blood ethanol measurement Holli Mary Jo Start: 10-08-2024 Complete blood count with white cell differential, manual Kyle Unger PA-C Work Phone: Start: 10-08-2024 Comprehensive metabo lic panel Teajl Mckeon PA-C Work Phone: Start: 10-08-2024 Hepatic function panel Tejal Mckeon PA-C Work Phone: Start: 10-05-2024 Basic metabolic pane l calcium total Christen Figliomeni PA-C Work Phone: Start: 10-05-2024 Drug tst prsmv instr mnt chem analyzers pr date Renae Piña REFERENCE TEST CLERK Work Phone: Start: 10-04-2024 Blood count complete automated Renae Piña REFERENCE TEST CLERK Work Phone: Start: 10-04-2024 Blood ethanol measurement Renae Piña REFERENCE TEST CLERK Work Phone: Start: 10-04-2024 Blood ethanol measurement Shellie Herrmann DO Work Phone: Start: 10-03-2024 Drug tst prsmv instr mnt chem analyzers pr date Leonel Colón Start: 10-03-2024 Basic metabolic pane l calcium total Leonel Colón Start: 10-02-2024 Blood count complete automated Holli Amaya REFERENCE TEST CLERK Work Phone: Start: 10-02-2024 Blood group typing Mickey Mendoza Cadena DO Work Phone: Start: 10-02-2024 Ct angio abd&plvis c ntrst mtrl w/wo cntrst img Lillian Calvert MD Work Phone: Start: 10-02-2024 Ct angiography neck w/contrast/noncontrast Lillian Calvert MD Work Phone: Start: 10-02-2024 Ct maxillofacial w/o contrast material Lillian Calvert MD Work Phone: Start: 10-02-2024 Gases blood ph direc t gaetano xcpt pulse oximitry Geoff Mendoza Cadena DO Work Phone: Start: 10-02-2024 Basic metabolic pane l calcium total Holli Amaya REFERENCE TEST CLERK Work Phone: Start: 10-02-2024 Blood ethanol measurement Geoff Mendoza Cadena DO Work Phone: Start: 10-02-2024 Hepatic [...] Comment: URIN ALYSIS Performed By: #### [id number] #### [facility],[address] [place] [address] Start: 09-28-2024 Urinalysis SHWETA Gibson Comment on above: Result Comment: URIN ALYSIS Performed By: #### [id number] ####[facility],[address] [place] [address] Start: 06-11-2024 Basic metabolic pane l calcium total Easton Hesham FORM TAMPING MACHINE OPERATOR - REFERENCE TEST CLERK Work Phone: Start: 06-11-2024 Drug test def 1-7 classes Easton Hesham FORM TAMPING MACHINE OPERATOR - REFERENCE TEST CLERK Work Phone: Start: 06-11-2024 Radiologic exam ches t 2 views Easton Hesham FORM TAMPING MACHINE OPERATOR - REFERENCE TEST CLERK Work Phone: Start: 06-11-2024 Ecg routine ecg w/le ast 12 lds trcg only w/o i&r Arnold Olivera MD Work Phone: Start: 01-28-2024 Sars-cov-2 detection by dna/rna Christy Retana FORM TAMPING MACHINE OPERATOR - INTERFACE DESIGNER Work Phone: Start: 01-28-2024 Infectious agent dna /rna influenza 1st 2 types Christy Retana FORM TAMPING MACHINE OPERATOR - INTERFACE DESIGNER Work Phone: Start: 06-19-2023 Plain chest X-ray No Pr [facility] Care Physician Start: 06-19-2023 SARS-CoV-2, Influenz a & RSV (PCR) No Primary Care Physician Plan of Treatment Date Care Activity Detail Author Start: 11-06-2071 RSV Immunization for Adults (1 - 1-dose 75+ series) RSV Immunization for Adults (1 - 1-dose 75+ series) [facility] Start: 2046 Zoster Vaccines (1 of 2) Zoster Vaccines (1 of 2) [facility] Start: 10-28-2024 End: 10-28-2024 Patient encounter procedure 10/28/2024 10:20 AM EDT Office Visit [facility] [address] [facility] [address] [place] [address] Discharge Disposition: Home [facility] Start: 10-23-2024 End: 10-23-2024 Follow-up encounter 10/23/2024 10:20 AM EDT Follow-Up [facility] [address] [facility] [address] [place] [address] Anjel Duval PA-C [address] [facility] [address] [place] [address] [facility] Start: 10-20-2024 End: 10-20-2024 Patient encounter procedure 10/20/2024 10:20 AM EDT Office Visit [facility] [address] [facility] [address] [place] [address] Discharge Disposition: Home [facility] Start: 10-18-2024 [facility] Start: 10-14-2024 End: 10-14-2024 Incision & drainage abscess simple/single INCISION AND DRAINAGE HEAD/NECK UNK 10/14/2024 10:09 AM EDT [facility] Start: 10-14-2024 End: 10-14-2024 Removal implant deep REMOVAL ARCHBAR UNK 10/14/2024 10:09 AM EDT [facility] Start: 10-13-2024 End: 10-13-2024 Admission to same day surgery center 10/13/2024 2:45 PM EDT - 10/13/2024 3:35 PM EDT Surgery [facility] [address] [place] [address] Marilou Vasquez MD [address] [facility] [address] [place] [address] MAXILLOMANDIBULAR FIXATION SCREW REMOVAL [facility] Comment on above: MAXILLOMANDIBULAR FIXATION SCREW REMOVAL Start: 10-13-2024 End: 10-13-2024 Incision & drainage abscess simple/single INCISION AND DRAINAGE HEAD/NECK UNK 10/13/2024 2:45 PM EDT [facility] Start: 10-13-2024 End: 10-13-2024 Removal implant deep REMOVAL ARCHBAR UNK 10/13/2024 2:45 PM EDT [facility] Start: 10-12-2024 Influenza vaccination Influenza Vaccine (Season Ended) [facility] Start: 10-04-2024 End: 10-04-2024 Open tx comp fx malar w/internal fx&mult surg OPEN REDUCTION INTERNAL FIXATION MANDIBLE MAXILLA UNK 10/04/2024 7:25 AM EDT [facility] Start: 10-02-2024 Emergency department visit high/urgent severity EMERGENCY DEPT VISIT MOD MDM [facility] Start: 10-01-2024 Following clinical pathway protocol [facility] Start: 10-01-2024 Admission procedure [facility] Start: 10-01-2024 Assessment of risk of venous thromboembolism [facility] Start: 10-01-2024 Introduction of urinary catheter [facility] Start: 10-01-2024 Notification of physician [facility] Start: 10-01-2024 Oxygen therapy [facility] Start: 10-01-2024 Referral to service [facility] Start: 10-01-2024 Vital signs measurements [facility] Start: 10-01-2024 Provision of activity privileges [facility] Start: 10-01-2024 Verification routine [facility] Start: 10-01-2024 End: 10-01-2024 [facility] Start: 10-01-2024 Consultation [facility] Start: 10-01-2024 Patient discharge [facility] Start: 10-13-2023 COVID-19 Vaccine ( season) COVID-19 Vaccine ( season) [facility] Start: 10-13-2023 Influenza vaccination Influenza Vaccine (#1) [facility] Start: 06-20-2023 [facility] Start: 05-01-2023 Following clinical pathway protocol [facility] Start: 05-01-2023 Assessment of risk of venous thromboembolism [facility] Start: 05-01-2023 Inhalation therapy procedure [facility] Start: 05-01-2023 Introduction of urinary catheter [facility] Start: 05-01-2023 Notification of physician [facility] Start: 05-01-2023 Oxygen therapy [facility] Start: 05-01-2023 Provision of activity privileges [facility] Start: 05-01-2023 Referral to service [facility] Start: 05-01-2023 Vital signs measurements [facility] Start: 05-01-2023 [facility] Start: 05-01-2023 Verification routine [facility] Start: 05-01-2023 Admission procedure [facility] Start: 05-01-2023 Hospital admission, emergency, from emergency room, medical nature [facility] Start: 05-01-2023 Patient discharge [facility] Start: 05-01-2023 [facility] Start: 03-23-2023 Patient discharge [facility] Start: 03-23-2023 Following clinical pathway protocol [facility] Start: 03-23-2023 Assessment of risk of venous thromboembolism [facility] Start: 03-23-2023 Notification of physician [facility] Start: 03-23-2023 Provision of activity privileges [facility] Start: 03-23-2023 Vital signs measurements [facility] Start: 03-23-2023 [facility] Start: 03-23-2023 Gamma glutamyl transferase measurement [facility] Start: 03-23-2023 Prothrombin time [facility] Start: 03-23-2023 Admission procedure [facility] Start: 08-07-2022 Patient discharge [facility] Start: 08-05-2022 Following clinical pathway protocol [facility] Start: 08-05-2022 Ambulation without limitation [facility] Start: 08-05-2022 Assessment of risk of venous thromboembolism [facility] Start: 08-05-2022 Catheterization of vein [facility] Start: 08-05-2022 Insertion of catheter into peripheral vein [facility] Start: 08-05-2022 Providing care according to standard [facility] Start: 08-05-2022 Referral to service [facility] Start: 08-05-2022 [facility] Start: 08-05-2022 Verification routine [facility] Start: 08-05-2022 Admission procedure [facility] Start: 08-05-2022 [facility] Start: 11-06-2015 DTaP/Tdap/Td Vaccines (1 - Tdap) DTaP/Tdap/Td Vaccines (1 - Tdap) [facility] Start: 11-06-2015 Hepatitis B Vaccines (1 of 3 - 19+ 3-dose series) Hepatitis B Vaccines (1 of 3 - 19+ 3-dose series) [facility] Start: 11-06-2015 Pneumococcal Vaccine: Pediatrics (0 to 5 Years) and At-Risk Patients (6 to 49 Years) (1 of 2 - PCV) Pneumococcal Vaccine: Pediatrics (0 to 5 Years) and At-Risk Patients (6 to 49 Years) (1 of 2 - PCV) [facility] Start: 2014 Hepatitis C screening Hepatitis C Screening [facility] Start: 2009 Varicella vaccination Varicella Vaccines (1 of 2 - 13+ 2-dose series) [facility] Start: 2008 Depression Screening Depression Screening [facility] Start: 1997 MMR Vaccines (1 of 1 - Standard series) MMR Vaccines (1 of 1 - Standard series) [facility] Start: 1996 HIV screening HIV Screening [facility] Bacteria identified in Blood by Culture Blood Culture Aerobic/Anaerobic Microbiology [facility] 10/12/2024 4:45 PM EDT [facility] Work Phone: Gamma glutamyl transferase measurement [facility] INR in Blood by Coagulation assay [facility] Patient Education [facility] Work Phone: Patient referral [facility] Work Phone: End: 10-02-2024 [facility] limited [facility] Work Phone: Comment on above: Once for 1 Occurrences starting 10/03/19 until 10/02/2024 Immunizations Immunization Date Immunization Notes Care Provider Fa cility 10-02-2024 tetanus toxoid, redu anshul diphtheria toxoid, and acellular pertussis vaccine, adsorbed No Primary Care Physician [facility] Payers Date Payer Category Payer Self-pay 2023 Medicaid (Managed Care) [employer] Kylah EALTMIRTA [employer] MGD MEDICAID [id number] 2023 Medicaid HMO [employer] DANIELA SANTOS ODM [id number] 2023 Private Health Insurance [id number] 1996 Unknown [id number] [id number]. 627 1996 Unknown [id number] [id number]. 204 1996 Unknown [id number] 2.16.840.1.172962.3.579.2. 651 1996 Unknown [id number] 2.16.840.1.541317.3.579.2. 651 1996 Unknown [id number] 2.16.840.1.544409.3.579.2. 651 1996 Unknown [id number] 2.16.840.1.182627.3.579.2. 902 1996 Unknown [id number] 2.16.840.1.679163.3.579.2. 902 1996 Unknown [id number] 2.16.840.1.975036.3.579.2. 902 1996 Unknown [id number] 2.16.840.1.542521.3.579.2. 902 1996 Unknown [id number] 2.16.840.1.986268.3.579.2. 902 1996 Unknown [id number] 2.16.840.1.924037.3.579.2. 902 Unknown [id number] 2.16.840.1.630569.3.579.2. 462 Unknown [id number] 2.16.840.1.254678.3.579.2. 462 Unknown [id number] 2.16.840.1.799828.3.579.2. 462 Unknown [id number] 2.16.840.1.665069.3.579.2. 462 Unknown [id number] 2.16.840.1.129176.3.579.2. 462 Social History Date Type Detail Facility Start: 08-05-2022 End: 06-19-2023 Tobacco smoking status VAIS Unknown if ever smoked [facility] Start: 1995 Sex Assigned At Male [facility] Start: 06-20-2023 Tobacco smoking status Light tobacco smoker (finding) [facility] Start: 1996 Sex assigned at Not on file [facility] Start: 01-28-2024 Sex Male (finding) [facility] Start: 06-11-2024 End: 10-12-2024 Gender identity Not on file [facility] Start: 06-11-2024 End: 10-12-2024 History of Social function [facility] How often to you hav e a drink containing alcohol? 4 or more times a week [facility] How many standard dr inks containing alcohol do you have on a typical day? 7 to 9 [facility] How often do you hav e 6 or more drinks on 1 occasion? Daily or almost daily [facility] Start: 10-01-2024 End: 10-18-2024 Tobacco smoking status VAIS Smokes tobacco daily (finding) [facility] History of tobacco use Cigarette Smoker [facility] Start: 10-02-2024 Tobacco use and exposure Smokeless tobacco non-user [facility] Start: 10-04-2024 End: 10-14-2024 Alcoholic beverage intake Current drinker of alcohol (finding) [facility] Has the [employer], [employer], or water [employer] threatened to shut off services in your home in past 12Mo Yes [facility] Within the last year , have you been afraid of your partner or ex-partner? No [facility] (I/We) worried [facility] (my/our) food would run out before (I/we) got money to buy more. Often true [facility] In the past 12 month s, has lack of transportation kept you from medical appointments or from getting medications? Yes [facility] Start: 10-02-2024 Alcohol Comment 15-20 tall boys daily, last drink yesterday - 10/02/24 [facility] Start: 10-12-2024 Alcohol Comment 5 tall boys daily, last drink today [facility] Medical Equipment Procedure Code Equipment Code Equipment Origin al Text Equipment Identifier Dates Sealant 5ml Hemostatic Matrix Fast Prep Floseal W/ Recothrom - [id number] Start: 10-04-2024 Powder 3gm Hemostatic Perclot 9cm Std Tip - [id number] Start: 10-04-2024 Screw 2 X 12mm M mf Self-Drill - [id number] Start: 10-04-2024 Screw 2 X 8mm Mm f Self-Drill - [id number] Start: 10-04-2024 Screw 2 X 12mm M mf Self-Drill - [id number] Start: 10-14-2024 Goals Date Patient Goal Desired Activity /State Functional Status Date Assessment Result Facility 10-01-2024 Functional status Up ad [facility] Work Phone: 06-20-2023 Functional Status Door open, Room check performed [facility] 06-20-2023 Functional Status [facility] 06-20-2023 Functional Status Ambulation in Room [facility] 06-20-2023 Functional Status [facility] 06-20-2023 Functional Status [facility] 06-20-2023 Functional Status Angel [facility] 06-20-2023 Functional Status [facility] 06-20-2023 Functional Status Environmental Safety Implemented Adequate room lighting, Bed in low position, Call device within reach [facility] 05-01-2023 Functional status Patient Activity Up ad camden [facility] Work Phone: 03-23-2023 Functional status Activity Ability Indepe ndent [facility] Work Phone: 08-07-2022 Functional status Up ad camden [facility] Work Phone: Mental Status Date Assessment Result Facility 10-18-2024 Cognitive function Level Of Cons ciousness Awake;Alert;Appropriate;Follow s Commands [facility] Work Phone: 10-02-2024 Cognitive function Voice/Name [facility] Work Phone: 10-01-2024 Cognitive function Voice/Name [facility] Work Phone: 06-20-2023 Mental Status Orientation Oriented x 4 [facility] 06-20-2023 Mental Status [facility] 06-20-2023 Mental Status [facility] 06-19-2023 Cognitive function Level Of Cons ciousness Awake;Alert;Appropriate [facility] Work Phone: 03-23-2023 Cognitive function Appropriate;Cooperativ e [facility] Work Phone: 08-07-2022 Cognitive function Voice/Name;Touch/Timothyki tao [facility] Work Phone: Clinical Notes 08-05-2022 to 10-18-2024 Note Date & Type Note Facility 10-18-2024 Discharge summary [facility] 10-18-2024 Discharge summary Note Date/Time October 18, 2024 3:25pm [facility] Medical Records Department [address] [place] [address] Emergency Department Summary 10/18/24 MR#: [id number] Acct: [id number] Name: KADE GONZALEZ Rep #:[id number] : 1995 28 From: Bairon Clarke PCP: [...] MDM MDM Narrative Medical decision making narrative: HISTORY OF PRESENT ILLNESS: Chief complaint: Jaw pain 28-year-old male history of open mandibular fracture, polysubstance abuse, alcohol abuse, tobacco abuse presents with jaw pain. He states REVIEW OF SYSTEMS: Pertinent positives: Jaw pain Pertinent negatives: Fevers chills vomit PHYSICAL EXAM: Nursing triage notes reviewed, Vital signs reviewed Constitutional: please see [facility] HENT: MMM, surgical scars noted over left [...] MEDICAL DECISION MAKING: Chief Complaint: please see [facility] External records reviewed: Reviewed prior ED visit. Reviewed clinisync. Reviewed prior imaging studies: Reviewed CT scan of the face from 10/02/2024 which showed a right mandibular fracture as well as a left mandibular fracture. Factors affecting care: As per HPI Social determinants of health: Polysubstance abuse History obtained from others: none Consults: none [facility] Narrative: Patient was initially hemodynamically stable, afebrile [...] Discharge home This note was generated with DeYapa dictation software. It may contain incorrectwords, spelling, [...] Primary [Primary Care Provider] - Print Language: [place] What to do if you have Problems For any increased pain, shortness of breath, bleeding, nausea or vomiting, chestpain, or any unexpected problems, contact your Primary Care Provider. Call [facility] ([phone]) or report to the closest Emergency Room. Call 911 if necessary. 10/18/24 1525 <Electronically signed by Bairon Dee DO> Cosigner Signature (if applicable): CC: No Primary Care Physician ~ Signed [facility] Work Phone: 1(939) 471-618009-03-2025 Plan of care note* Plan of Care [...] returned? N/a Chart removed from folder? yes [id number] Miscellaneous Notes* Plan of Care - Arnie [...] - 10/14/2024 2:52 PM EDT Arrangements by CM and SUN team made, pt able to antoine diet. DC criteria met * Brief Op Note - Beverley Shepherd MD - 10/14/2024 11:03 AM EDT Brief Post Operative Note Patient Name: Kade Gonzalez : 1995 (28 y.o.) Date of Service: 10/14/2024 CSN: [id number] Procedure(s): MAXILLOMANDIBULAR FIXATION SCREW REMOVAL LEFT MANDIBLE INCISION AND DRAINAGE Pre-Operative Diagnoses: * UNK Post-Operative Diagnoses: Surgeons and Role: * Marilou Vasquez MD - Primary Anesthesiologist: Papa Albrecht MD AGRICULTURAL PILOT: Leia Fernandez CRNA Parts Sales Associate: Lauren Becerra RN Scrub Person Relief: Shani Maria ST Anesthesia Specialist: Devon Cintron Aerographer: Luis Alberto Beckwith Scrub Person Preceptor: Thao Carson ST Operative findings: seroma/hematoma, no abscess, MMF screws removd Intra and immediate post-operative complications: none Type of anesthesia used: General Estimated blood loss: 10 mL Estimated urine output: Specimen(s): * No specimens in log * Implant(s): Implant Name Type Inv. Item Serial No. Watch Assembler Lot No. LRB No. Used Action SCREW 2 X 12MM MMF SELF-DRILL - [id number] SCREW 2 X 12MM MMF SELF-DRILL CROW [...] Vasquez MD - 10/14/2024 10:42 AM EDT Kdae Gonzalez [id number] 1995 Attending: Marilou Vasquez MD Preschool Assistant: Beverley Shepherd MD Pre Procedure Diagnosis: History [...] operative complication were discussed with the consenting alliance party before surgery. Anesthesia: General Complications: None Specimens: [...] sign off at this time. Please call [phone] for questions/concerns and we can determine if new consult needs placed for further evaluation. * Assessment & Plan Note - Esme Paz CNP - 10/13/2024 3:33 PM EDT Associated Problem(s): Methamphetamine use (HCC) - Sporadic use over the past 3 months - Last use 10/07 -Educated pt about risks with continued use and education about harm reduction - Recommend [facility] level of care or higher, appreciate [...] 10/13/2024 10:55 AM EDT OR planned for 93 AM. NPO at [place] * Plan of Care - Arnie Akins [...] application on 10/04. Presented multiple times to [facility] since with jaw pain, swelling and concern [...] Mobile Relation: Significant Other Secondary Emergency Contact: wilbermary ellenshani Mobile Relation: Mother Father: joseph gonzalez Mobile Primary Care Physician: No, Physician Preferred Pharmacy: N/A Does this match pharmacy listed with AUTO PARTS CLERK: No Plan for discharge reviewed: Yes How will patient get home: Needs a ride Reviewed call light process: Yes AMPAC completed under [facility] Basic Mobility Short Form: Yes 4 eyes completed, documented, & witnessed : Yes Patient on tele? No Tele Number: n/a documented in this [id number] Progress note* Quick Note - Arnie Akins RN - 10/14/2024 2:52 PM EDT Arrangements by MESSI and NADIA team made, pt able to antoine diet. DC criteria met [id number] NoteGRANT TRAUMA and ACUTE CARE SURGERY TRAUMA [...] home Outpatient PT/OT/ST: PT , OT , CHIP MIXER Inpatient Consults: Procedures Consult Plastic Surgery Consult [...] . Do not swallow naloxone 4 mg/actuation Hydro Commonly known as: NARCAN Administer 1 spray into one nostril for known or suspected opioid overdose. If patient worsens or does not respond, may repeat in 2-3 minutes. . Where to Get Your Medications These medications were sent to [facility] [address] [place] [address] Hours: 8:30 AM to 5:00 PM Mon-Fri acamprosate 333 mg tablet You can get these medications from any pharmacy Bring a paper prescription for each of these medications amoxicillin-clavulanate 400-57 mg/5 mL suspension Diet: Diet NPO Except: SIPS WITH MEDS Follow-up Appointments / Plans: Marilou Vasquez MD [address] [place] [id number] Follow up in 1 week(s) Call to obtain follow up appointment after discharge Time spent on discharge: > 30 minutes CHIEF COMPLAINT/ HPI / PFSHx / EVENTS OVER LAST 24HRS: Please see today's progress note for CC, ROS, and PE. AUTHENTICATED BY DAISY HAMPTON, ON 10/14/2024 11:44:48[facility] 10-14-2024 Hospital course Narrative* Daisy Hampton, REFERENCE TEST CLERK - 10/14/2024 11:43 AM EDT [place] TRAUMA and ACUTE CARE SURGERY TRAUMA DISCHARGE [...] home Outpatient PT/OT/ST: PT , OT , CHIP MIXER Inpatient Consults: Procedures Consult Plastic Surgery Consult [...] . Do not swallow naloxone 4 mg/actuation Hydro Commonly known as: NARCAN Administer 1 spray into one nostril for known or suspected opioid overdose. If patient worsens or does not respond, may repeat in 2-3 minutes. . Where to Get Your Medications These medications were sent to [facility] [address] [place] [address] Hours: 8:30 AM to 5:00 PM Mon-Fri acamprosate 333 mg tablet You can get these medications from any pharmacy Bring a paper prescription for each of these medications amoxicillin-clavulanate 400-57 mg/5 mL suspension Diet: Diet NPO Except: SIPS WITH MEDS Follow-up Appointments / Plans: Marilou Vasquez MD [address] [place] [address] Follow up in 1 week(s) Call to obtain follow up appointment after discharge Time spent on discharge: > 30 minutes CHIEF COMPLAINT/ HPI / PFSHx / EVENTS OVER LAST 24HRS: Please see today's progress note for CC, ROS, and PE. documented in this [id number] NotePlastic Surgery Plan of Care Kade Gonzalez [...] MD AUTHENTICATED BY BEVERLEY SHEPHERD, ON 10/14/2024 11:05:[address] [place] [address] 10-14-2024 Procedure note* Brief Op Note - Beverley Shepherd MD - 10/14/2024 11:03 AM EDT Brief Post Operative Note Patient Name: Kade Gonzalez : 1995 (28 y.o.) Date of Service: 10/14/2024 CSN: [id number] Procedure(s): MAXILLOMANDIBULAR FIXATION SCREW REMOVAL LEFT MANDIBLE INCISION AND DRAINAGE Pre-Operative Diagnoses: * UNK Post-Operative Diagnoses: Surgeons and Role: * Marilou Vasquez MD - Primary Anesthesiologist: Papa Albrecht MD AGRICULTURAL PILOT: Leia Fernandez CRNA Parts Sales Associate: Lauren Becerra RN Scrub Person Relief: Shani Maria ST Anesthesia Specialist: Devon Cintron Aerographer: Luis Alberto Beckwith Scrub Person Preceptor: Thao Carson ST Operative findings: seroma/hematoma, no abscess, MMF screws removd Intra and immediate post-operative complications: none Type of anesthesia used: General Estimated blood loss: 10 mL Estimated urine output: Specimen(s): * No specimens in log * Implant(s): Implant Name Type Inv. Item Serial No. Watch Assembler Lot No. LRB No. Used Action SCREW 2 X 12MM MMF SELF-DRILL - [id number] SCREW 2 X 12MM MMF SELF-DRILL CROW [...] NO Beverley Shepherd MD 10/14/2024 11:03 AM [id number] History of Present illness Narrative* Beverley Shepherd [...] week Beverley Shepherd MD * Daisy Hampton, [facility] - 10/14/2024 8:35 AM EDT DAVID PROGRESS [...] application on 10/04. Presented multiple times to [facility] since with jaw pain, swelling and concern [...] of 0.73 mg/dL).): Lovenox * Marilou Chen RPh,PharmAra - 10/12/2024 4:44 PM EDT PHARMACOTHERAPY NOTE: [...] 1 Encounters: 10/08/24 79.4 kg (175 lb) Hardin body weight: 75.3 kg (166 lb 0.1 [...] 98.5 F Micro: Pending Pharmacist: Marilou Chen RPh,PharmD Contact Number: Yusef ([phone]) or Secure Chat documented in this [id number] Procedure note* Op Note - Marilou Vasquez MD - 10/14/2024 10:42 AM EDT Kade Gonzalez [id number] 1995 Attending: Marilou Vasquez MD Preschool Assistant: Beverley Shehperd MD Pre Procedure Diagnosis: History [...] operative complication were discussed with the consenting alliance party before surgery. Anesthesia: General Complications: None Specimens: [...]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 seizure. Patient was at [facility] ED earlier in the day with [...] ANA MARIA PEREZ on 06/20/2023 02:41 PM [facility]05-09-2024 Evaluation + Plan noteExtracted from: Title:History [...] and may include grammatical and/or spelling errors. [facility] 05-09-2024 Note ORIGINAL EXAMINATION: ONE [...] Sign Date: 06/20/2023 3:12:39 AM Ordering Provider: [facility]05-09-2024 Note ORIGINAL EXAMINATION: CT OF THE CERVICAL [...] Sign Date: 06/20/2023 3:20:14 AM Ordering Provider: [facility]05-09-2024 Note ORIGINAL EXAMINATION: CT OF THE HEAD [...] Date: 06/20/2023 3:18:15 AM Ordering Provider[facility] NoteSinus tachycardia Electronic Signature: MICHAEL PADRON DO 06/20/2023 02:28:09[facility] 05-08-2024 Discharge summary Author Carmelo Mccray [facility] June 20, 2023 12:34am Note Date/Time June 19, 2023 9:50pm [facility] Medical Records Department [address] [place] [address] Emergency Department Summary 06/19/23 MR#: [id number] Acct: [id number] Name: KADE GONZALEZ Rep #:[id number] : 1995 27 From: Carmelo Clarke PCP: [...] betterand nothing makes them worse. [facility] Medical History Alcohol abuse Alcohol dependence Anxiety [...] % (Auto) 60.8 Lymph % (Auto) 28.9 [place]ado % (Auto) 8.4 Eos % (Auto) 0.6 [...] sinus rhythm with a rate of 75. IA interval, QRS interval, and QTc intervals were all normal. Malott was normal. There are no acute ST [...] your Primary Care Provider. Call [facility] ([phone]) or report to the closest Emergency Room. Call 911 if necessary. 06/20/2333 <Electronically signed by Carmelo Mccray DO> Cosigner Signature (if applicable): CC: No Primary Care Physician ~ Signed [facility] Work Phone: 1(710) 503-691503-20-2024 Progress note Author Carmelo Albert [facility] May 01, 2023 9:43am Note Date/Time May 01, 2023 7:0 1am [facility] Medical Records Department [address] [place] [address] Progress Note - Hospitalist 05/01/23 0658 MR#: [id number] Acct: [id number] Name: KADE GONZALEZ Rep #:[id number] : 1995 27 From: Carmelo Albert DO [...] (Auto) 49.6, Lymph % (Auto) 41.9 H, Dorado % (Auto) 6.5, Eos % (Auto) 0.3, [...] type admission. Charges/Coding Visit Charges Inpatient E&M: 29548 Subs Hosp L2 05/01/23 0943 <Electronically signed by Carmelo Albert DO> Cosigner Signature (if applicable): CC: ~ Signed [facility] Work Phone: 1(195) 747-177103-20-2024 Discharge summary Author Marcio Cardona [facility] May 01, 2023 6:26am Note Date/Time May 01, 2023 5:2 8am [facility] Medical Records Department [address] [place] [address] Emergency Department Summary 05/01/23 MR#: [id number] Acct: [id number] Name: KADE GONZALEZ Rep #:[id number] : 1995 27 From: Marcio Cardona MD [...] intend to do that again. [facility] Medical History (Updated 05/01/23 @ 05:48 by [...] your Primary Care Provider. Call [facility] ([phone]) or report to the closest Emergency Room. Call 911 if necessary. 05/01/23625 <Electronically signed by Marcio Cardona MD> Cosigner Signature (if applicable): CC: No Primary Care Physician ~ Signed [facility] Work Phone: 1(972) 711-452103-20-2024 History and physical note Author Jacquie Beckwith [facility] May 01, 2023 5:50am Note Date/Time May 01, 2023 5:3 3am [facility] Medical Records Department [address] [place] [address] H&P Exam - Hospitalist 05/01/23 0532 MR#: [id number] Acct: [id number] Name: KADE GONZALEZ Rep #:[id number] : 1995 27 From: Jacquie Beckwith MD PCP: Care Physician,No Primary Status :ADM IN Location: ICU CVICU 3-1 HPI - General General Date of [...] administered phenobarbital 97.2 mg p.o. x 1. [facility] Medical History (Updated 05/01/23 @ 05:48 by [...] type admission. Charges/Coding Visit Charges Inpatient E&M: 11828 Init Hosp L2 05/01/23 0550 <Electronically signed by Jacquie Beckwith MD> Cosigner Signature (if applicable): CC: Dr. Jacquie Beckwith MD; No Primary Care Physician~ Signed [facility] Work Phone: 1(124) 421-193802-10-2024 History and physical note Author Stan Thomas [facility] March 23, 2023 12:48am Note Date/Time March 23, 2023 12:18am [facility] Medical Records Department [address] [place] [address] H&P Exam - Hospitalist 03/23/23 0017 MR#: [id number] Acct: [id number] Name: KADE GONZALEZ Rep #:[id number] : 1995 27 From: Stan Bullock PCP: Care Physician,No Primary Status :ADM IN Location: [facility] UL205-5 HPI - General General Date of Admission: [...] including hematemesis melena or alcoholic liver disease [facility] Medical History Alcohol abuse Anxiety Asthma Depression [...] % (Auto) 58.3, Lymph % (Auto) 34.2, Dorado% (Auto) 6.3, Eos % (Auto) 0.1, Baso [...] [facility] floor. [facility] Patient on phenobarbital based order set along with other adjunctive medications gabapentin, Bentyl, Vistaril, clonidine, Klonopin as needed for alcohol withdrawal symptom control. Patient is on thiamine and folate acid. Twelve-lead EKG shows sinus tachycardiaat 108 bpm. Liver chemistry normal limit. GGT pending. Serum alcohol was highat 212. CIWA monitor. quarrying manager consulted.. 2. Chronic nicotine use/cigarette smoking: [...] % (Auto) 58.3, Lymph % (Auto) 34.2, Dorado% (Auto) 6.3, Eos % (Auto) 0.1, Baso [...] Alcohol 212.0 Charges/Coding Visit Charges Inpatient E&M: 40320 Init Hosp L3 03/23/23 0048 <Electronically signed by Stan Thomas MD> Cosigner Signature (if applicable): CC: Dr. Stan Thomas MD; No Primary Care Physician~ Signed [facility] Work Phone: 1(362) 639-129202-10-2024 Discharge summary Author Daquan Reid [facility] March 23, 2023 12:42am Note Date/Time March 22, 2023 1 0:17pm [facility] Medical Records Department [address] [place] [address] Emergency Department Summary 03/22/23 MR#: [id number] Acct: [id number] Name: KADE GONZALEZ Rep #:[id number] : 1995 27 From: Daquan Reid MD PCP: Care Physician,No Primary Status :ADM IN Location: [place] [address] Daquan Reid MD on [...] year, then went through pathways. [facility] Medical History Alcohol abuse Anxiety Asthma Depression [...] discussed with Dr. Thomas for admission to [facility] for detox from alcohol. Patient is [...] % (Auto) 58.3 Lymph % (Auto) 34.2 Dorado % (Auto) 6.3 Eos % (Auto) 0.1 [...] your Primary Care Provider. Call [facility] ([phone]) or report to the closest Emergency Room. Call 911 if necessary. 03/23/23 0018 <Electronically signed by Daquan Reid MD> Cosigner Signature (if applicable): CC: No Primary Care Physician ~ Signed [facility] Work Phone: 1([phone]) 498-838202-10-2024 Discharge summary Author Daquan Reid [facility] March 23, 2023 12:42am Note Date/Time March 22, 2023 1 0:17pm [facility] Medical Records Department [address] [place] [address] Emergency Department Summary 03/22/23 MR#: [id number] Acct: [id number] Name: KADE GONZALEZ Rep #:[id number] : 1995 27 From: Daquan Reid MD PCP: Care Physician,No Primary Status :ADM IN Location: [place] [address] Daquan Reid MD on [...] year, then went through [facility]. [facility] Medical History Alcohol abuse Anxiety Asthma Depression [...] discussed with Dr. Thomas for admission to [facility] for detox from alcohol. Patient is [...] % (Auto) 58.3 Lymph % (Auto) 34.2 Dorado % (Auto) 6.3 Eos % (Auto) 0.1 [...] your Primary Care Provider. Call [facility] ([phone]) or report to the closest Emergency Room. Call 911 if necessary. 03/23/2317 <Electronically signed by Daquan Reid MD> Cosigner Signature (if applicable): CC: No Primary Care Physician ~ Signed [facility] Work Phone: [phone]) 983-982706-27-[address] Albert [facility] August 07, 2022 9:19am Note Date/Time August 07, 2022 9:18 am [facility] Medical Records Department [address] [place] [address] Instructions for Home/Discharge Instructions 08/07/22917 MR#: [id number] Acct: [id number] Name: KADE GONZALEZ Rep #:[id number] : 1995 26 From: Carmelo Albert DO [...] ; No Primary Care Physician ~ Signed [facility] Work Phone: [phone]) 911-161306-27-[address] Albert [facility] August 07, 2022 9:19am Note Date/Time August 07, 2022 9:19 am [facility] Medical Records Department [address] [place] [address] Discharge Summary 08/07/22 0919 MR#: [id number] Acct: [id number] Name: KADE GONZALEZ Rep #:[id number] : 1995 From: Carmelo Albert DO PCP: Care Physician,No Primary Status :ADM [facility] Prov[facility] Date of Admission: 08/05/22 Primary Care [...] Self Care Charges/Coding Visit Charges Inpatient E&M: 99859 Disch Hosp 08/07/22 0919 <Electronically signed by Carmelo Albert DO> Cosigner Signature (if applicable): CC: Dr. Carmelo Albert DO; No Primary Care Physician~ Signed [facility] Work Phone: 1(157) 723-638306-27-[address] Albert [facility] August 07, 2022 9:18am Note Date/Time August 07, 2022 8:02 am [facility] Medical Records Department [address] [facility] [place] [address] Progress Note - Hospitalist 08/07/22 08 MR#: [id number] Acct: [id number] Name: KADE GONZALEZ Rep #:[id number] : 1995 26 From: Carmelo Albert DO PCP: Care Physician,No Primary Status :ADM IN Location: [place] [address] Reason for Visit Reason for Visit: Diagnoses [...] Cosigner Signature (if applicable): CC: ~ Signed [facility] Work Phone: 1(635) 696-115306-26-[address] Albert [facility] August 06, 2022 12:45pm Note Date/Time August 06, 2022 8:25 am [facility] Medical Records Department [address] [place] [address] Progress Note - Hospitalist 08/06/22822 MR#: [id number] Acct: [id number] Name: KADE GONZALEZ Rep #:[id number] : 1995 From: Carmelo Albert DO PCP: Care Physician,No Primary Status :ADM IN Location: [address] Reason for Visit Reason for Visit: [...] % (Auto) 56.8, Lymph % (Auto) 33.2, Dorado% (Auto) 8.3, Eos % (Auto) 0.3, Baso [...] -Full code Charges/Coding Visit Charges Inpatient E&M: 94869 Subs Hosp L1 08/06/22 1245 <Electronically signed by Carmelo Albert DO> Cosigner Signature (if applicable): CC: ~ Signed [facility] Work Phone: 1(706) 525-648106-25-[address] Ridley [facility] August 05, 2022 7:14pm Note Date/Time August 05, 2022 3:51 pm [facility] Medical Records Department [address] [place] [address] Emergency Department Summary 08/05/22 MR#: [id number] Acct: [id number] Name: KADE GONZALEZ Rep #:[id number] : 1995 26 From: Cadence CAMPA PCP: Care Physician,No Primary Status :ADM IN Location: [address] <KATHERYN Mcdowell - Last Filed: 08/05/22 17:08> [...] but denies history of seizures or DTs. PFS <KATHERYN Mcdowell - Last Filed: 08/05/22 17:08> [facility] Medical History (Updated 08/05/22 @ 17:01 by [...] % (Auto) 56.8 Lymph % (Auto) 33.2 Dorado % (Auto) 8.3 Eos % (Auto) 0.3 [...] (Auto) Neut % (Auto) Lymph % (Auto) Dorado % (Auto) Eos % (Auto) Baso % [...] % (Auto) 56.8 Lymph % (Auto) 33.2 [place] % (Auto) 8.3 Eos % (Auto) 0.3 [...] (Auto) Neut % (Auto) Lymph % (Auto) Dorado % (Auto) Eos % (Auto) Baso % [...] your Primary Care Provider. Call [facility] ([phone]) or report to the closest Emergency Room. Call 911 if necessary. 08/05/221707 <Electronically signed by Cadence CAMPA> Cosigner Signature (if applicable): 08/05/221913 <Electronically signed by Fior Ridley MD> CC: No Primary Care Physician ~ Signed [facility] Work Phone: 1(681) 177-442006-25-2023 History and physical note Author Dr. Hirsch [facility] August 05, 2022 5:16pm Note Date/Time August 05, 2022 5:05 pm [facility] Medical Records Department [address] [place] [address] H&P Exam - Hospitalist 08/05/221700 MR#: [id number] Acct: [id number] Name: KADE GONZALEZ Rep #:[id number] : 1995 26 From: Ashley Hirsch DO PCP: Care Physician,No Primary Status :ADM IN Location: [facility] IX076-6 HPI - General General Date of Admission: 08/05/22 Date of Service: 08/05/22 Chief Complaint: Desire for detoxification from alcohol HPI Narrative KADE GONZALEZ, is a 26 M who presented to the emergency department at [facility] on 08/05/2022 requesting detox from alcohol. [...] discharge is for readmission into inpatient rehab. [facility] Medical History No acute medical problems Polysubstance [...] % (Auto) 56.8, Lymph % (Auto) 33.2, Dorado% (Auto) 8.3, Eos % (Auto) 0.3, Baso [...] -Full code Charges/Coding Visit Charges Inpatient E&M: 76433 Init Hosp L2 08/05/22 1716 <Electronically signed by Ashley Hirsch DO> Cosigner Signature (if applicable): CC: Dr. Ashley Hirsch DO; No Primary Care Physician~ Signed [facility] Work Phone: Discharge summary Author Marcio Cardona [facility] May 01, 2023 6:26am Note Date/Time May 01, 2023 5:2 8am [facility] Medical Records Department [address] [place] [address] Emergency Department Summary 05/01/23 MR#: [id number] Acct: [id number] Name: DAISYKADE AWANHARD Rep #:[id number] : 1995 27 From: Marcio Cardona MD [...] intend to do that again. [facility] Medical History (Updated 05/01/23 @ 05:48 by [...] your Primary Care Provider. Call [facility] ([phone]) or report to the closest Emergency Room. Call 911 if necessary. 05/01/23 06 <Electronically signed by Marcio Cardona MD> Cosigner Signature (if applicable): CC: No Primary Care Physician ~ Signed [facility] Work Phone: Discharge summary Author Colin Colon [facility] Note Date/Time October 02, 2024 7: 26am [facility] Medical Records Department [address] [place] [address] Emergency Department Summary 10/02/24 MR#: [id number] Acct: [id number] Name: KADE GONZALEZ Rep #:[id number] : 1995 28 From: Colin Colon DO [...] states he would prefer to go to [place] versus [place] or [place]. Therefore the case was [facility]Dr[facility] at [facility]. He agrees to accept the patient. [...] 76.7 H Lymph % (Auto) 14.6 L Dorado % (Auto) 7.1 Eos % (Auto) 0.5 [...] be considered as clinically warranted. Reading Location: [place] [address] 10/02/24 05:15 IMPRESSION: Soft tissue emphysema in the left aspect of the neck. No CT evidence of an acute fracture or dislocation. Reading Location: [facility] Facial/Sinus 10/02/24 05:15 IMPRESSION: Mandibular right para-symphyseal and left mandibular angle/body fractures with related soft tissue edema and possible left master intramuscular hematoma as detailed. [facility] Management Discussion w/another healthcare provider: Mental Health Program Director Discharge Plan Triage Chief Complaint: Head Injury ED Provider: Colin Colon Dx/Rx/DC Orders Clinical Impression: Mandible open fracture, History of alcohol abuse, Tobacco use, Alcohol abuse Prescriptions: No Action NK Primary Care Provider: Care Physician,No Primary Referrals: Care Physician,No Primary [Primary Care Provider] - Print Language: [place] Disposition Disposition: Acute Care Hospital Discharge Location: [facility] What to do if you have Problems For any increased pain, shortness of breath, bleeding, nausea or vomiting, chestpain, or any unexpected problems, contact your Primary Care Provider. Call [facility] ([phone]) or report to the closest Emergency Room. Call 911 if necessary. 10/02/24725 <Electronically signed by Colin Colon DO> Cosigner Signature (if applicable): CC: No Primary Care Physician ~ Signed [facility] Work Phone: Evaluation note* Diagnosis Onset Date Resolution Status Alcohol abuse acute Desire for detoxification ac [facility] Work Phone: Evaluation note* Diagnosis Onset Date Resolution Status Acute alcohol intoxication a cute Acute hyperactive alcohol withdrawal delirium acute Desire for detoxification [facility] Work Phone: Evaluation note* Diagnosis Onset Date Resolution Status Acute hyperactive alcohol withdrawal delirium resolved Alcohol dependence acute Alcohol withdrawal acute [facility] Work Phone: Evaluation note* Diagnosis Onset Date Resolution Status Acute hyperactive alcohol withdrawal delirium resolved Alcohol withdrawal acute [facility] Work Phone: Evaluation note* Diagnosis Influenza [...] unspecified drinking behavior [facility] Mandible [facility] (HCC)- Primary Closed fracture of unspecified site of mandible Closed fracture of mandible, unspecified laterality, unspecified mandibular site, initial encounter (HCC) Alcohol use disorder, severe, dependence (HCC) Alcohol withdrawal syndrome without complication (HCC) Methamphetamine use (HCC) Nondependent amphetamine or related acting sympathomimetic abuse, unspecified Cocaine use Cannabis use, uncomplicated Cigarette nicotine dependence without complication Acute pain History of benzodiazepine use [facility] Diagnosis Mandible fracture (HCC)- Primary Closed fracture of unspecified site of mandible Closed fracture of mandible, unspecified laterality, unspecified mandibular site, initial encounter (HCC) Trauma- Primary Injury, other and unspecified, unspecified site Closed fracture of mandible with routine healing, unspecified laterality, unspecified mandibular site, subsequent encounter History of benzodiazepine use Cigarette nicotine dependence without complication Cannabis use, uncomplicated Alcohol withdrawal syndrome without complication (HCC) Alcohol use disorder, severe, dependence (HCC) Acute pain Methamphetamine use (HCC) Nondependent amphetamine or related acting sympathomimetic abuse, unspecified [facility] Diagnosis Mandible fracture (HCC)- Primary Closed [...] (HCC) Unspecified psychosis [facility] Diagnosis Mandible fracture (HCC)- Primary Closed [...] sympathomimetic abuse, unspecified [facility] Author [facility]. Hirsch [facility] August 05, 2022 5:16pm Note Date/Time August 05, 2022 5:05 pm [facility] Medical Records Department [address] [place] [address] H&P Exam - Hospitalist 08/05/22 1701 MR#: [id number] Acct: [id number] Name: KADE GONZALEZ Rep #:[id number] : 1995 26 From: Ashley Hirsch DO PCP: Care Physician,No Primary Status :ADM IN Location: [facility] BK873-9 HPI - General General Date of Admission: 08/05/22 Date of Service: 08/05/22 Chief Complaint: Desire for detoxification from alcohol HPI Narrative KADE GONZALEZ, is a 26 M who presented to the emergency department at [facility] on 08/05/2022 requesting detox from alcohol. [...] discharge is for readmission into inpatient rehab. [facility] Medical History No acute medical problems Polysubstance [...] % (Auto) 56.8, Lymph % (Auto) 33.2, Dorado% (Auto) 8.3, Eos % (Auto) 0.3, Baso [...] -Full code Charges/Coding Visit Charges Inpatient E&M: 52020 Init Hosp L2 08/05/22 1716 <Electronically signed by Ashley Hirsch DO> Cosigner Signature (if applicable): CC: Dr. Ashley Hirsch, ; No Primary Care Physician~ Signed [facility] Work Phone: History and physical note Author Stan Thomas [facility] March 23, 2023 12:48am Note Date/Time March 23, 2023 12:18am [facility] Medical Records Department [address] [place] [address] H&P Exam - Hospitalist 03/23/23 0017 MR#: [id number] Acct: [id number] Name: KADE GONZALEZ Rep #:[id number] : 1995 27 From: Stan Bullock PCP: Care Physician,No Primary Status :ADM IN Location: [place] [address] HPI - General General Date of Admission: [...] including hematemesis melena or alcoholic liver disease [facility] Medical History Alcohol abuse Anxiety Asthma Depression [...] % (Auto) 58.3, Lymph % (Auto) 34.2, Dorado% (Auto) 6.3, Eos % (Auto) 0.1, Baso [...] [facility]urg floor. [facility] Patient on phenobarbital based order set along with other adjunctive medications gabapentin, Bentyl, Vistaril, clonidine, Klonopin as needed for alcohol withdrawal symptom control. Patient is on thiamine and folate acid. Twelve-lead EKG shows sinus tachycardiaat 108 bpm. Liver chemistry normal limit. GGT pending. Serum alcohol was highat 212. CIWA monitor. quarrying manager consulted.. 2. Chronic nicotine use/cigarette smoking: [...] % (Auto) 58.3, Lymph % (Auto) 34.2, Dorado% (Auto) 6.3, Eos % (Auto) 0.1, Baso [...] Alcohol 212.0 Charges/Coding Visit Charges Inpatient E&M: 31788 Init Hosp L3 03/23/23 0048 <Electronically signed by Stan Thomas MD> Cosigner Signature (if applicable): CC: Dr. Stan Thomas MD; No Primary Care Physician~ Signed [facility] Work Phone: History and physical note Author Jacquie Beckwith [facility] May 01, 2023 5:50am Note Date/Time May 01, 2023 5:3 3am [facility] Medical Records Department [address] [place] [address] H&P Exam - Hospitalist 05/01/23 0532 MR#: [id number] Acct: [id number] Name: KADE GONZALEZ Rep #:[id number] : 1995 27 From: Jacquie Beckwith MD [...] administered phenobarbital 97.2 mg p.o. x 1. [facility] Medical History (Updated 05/01/23 @ 05:48 by [...] type admission. Charges/Coding Visit Charges Inpatient E&M: 27788 Init Hosp L2 05/01/23 0550 <Electronically signed by Jacquie Beckwith MD> Cosigner Signature (if applicable): CC: Dr. Jacquie Beckwith MD; No Primary Care Physician~ Signed [facility] Work Phone: Hospital course Narrative No data available for this section [facility] Hospital Discharge instructions* Attachments The following attachments cannot be sent through Care Everywhere. * Chest Pain, Adult ED ([place]) * Troponin Test ([place]) * Drug Abuse Treatment ([place]) * Alcohol Use Disorder ED ([place]) * Polysubstance Use Disorder ([place]) * Substance Use Disorder ED ([place]) [facility] Additional Instructions Your exam would [...] infection permanent disability facial abnormality and even .[facility] Work Phone: Hospital Discharge instructionsAdditional Instructions Thank [...] for further outpatient evaluation, pain control and management.[facility] Work Phone: Instructions* Attachments The following attachments cannot be sent through Care Everywhere. * Flu Discharge Instructions, Adult ([place]) documented in this [facility] for referral (narrative)No reason for referral information [facility] Work Phone: Chief Complaint and Reason [...] Visit Admit [facility] 12:22am Chief Complaint [...] No August 05, 2022 4:09pm Power of Medical Record Technician No August 05 4:09pm Advance Directive Response Recorded Date/ Time Living Will No August 05, 2022 6:27pm Power of Medical Record Technician No August 05 6:27pm Advance Directive Response Recorded Date/ Time Living Will No March 22 10:56pm Power of Medical Record Technician No March 22, 2023 10:56pm Advance Directive Response Recorded Date/ Time Living Will No March 23 024 1:01am Power of Medical Record Technician No March 23, 2023 1:01am Advance Directive Response Recorded Date/ Time Living Will No May 01, 2023 5:10am Power of Medical Record Technician No April 30 5:10am Advance Directive Response Recorded Date/ Time Living Will No May 01, 2023 6:45am Power of Medical Record Technician No April 30 6:45am Advance Directive Response Recorded Date/ Time Living Will No June 19, 2023 11 :38pm Power of Medical Record Technician No June 19, 2023 11:38pm Advance Directive Response Recorded Date/ Time Do you have a Healthcare Power of Medical Record Technician? No October 01, 2024 1:52am Advance Directive Response Recorded Date/ Time Do you have a Healthcare Power of Medical Record Technician? No October 01, 2024 1:52am Do you have a Healthcare Power of Medical Record Technician? No October 02, 2024 4:09am Advance Directive Response Recorded Date/ Time Do you have a Healthcare Power of Medical Record Technician? No October 01, 2024 1:52am Do you have a Healthcare Power of Medical Record Technician? No October 02, 2024 4:09am Do you have a Healthcare Power of Medical Record Technician? No October 02, 2024 4:55am Date Activated [...] Do you have a Healthcare Power of Medical Record Technician? No October 01, 2024 1:52am Do you have a Healthcare Power of Medical Record Technician? No October 18, 2024 3:22pm Do you have a Healthcare Power of Medical Record Technician? No October 02, 2024 4:09am Do you have a Healthcare Power of Medical Record Technician? No October 02, 2024 4:55am Family History [...] Other Provider Ac tive Dr. Carmelo Albert , Attending Provider, Other Provid er Active Team Status: Inactive Member Role Status Dates Dr. Fior Ridley MD Emergency Provider Active No Primary Care Physician Primary Care Provider Active Dr. Ashley Hirsch DO Admit Provider, Other Provider Ac tive Dr. Carmelo Albert , DO Attending Provider Active Team Status: Active [...] Provider Active Star t: October 02, 2024 Hygiene Coordinator Relationship Specialty Start Date End Date No, Physician [facility] PCP - General 10/02/24 Hygiene Coordinator Relationship Specialty Start Date End Date No, Physician [facility] PCP - General 10/02/24 Hygiene Coordinator Relationship Specialty Start Date End Date No, Physician [facility] PCP - General 10/02/24 Hygiene Coordinator Relationship Specialty Start Date End Date No, Physician [facility] PCP - General 10/02/24 Team Status: [...] section and content) DATE CREATED AUTHOR 06/28/2023 [facility] ([place]) DATE CREATED AUTHOR AUTHOR'S ORGANIZ ATION 08/02/2023 [facility] DATE CREATED AUTHOR AUTHOR'S ORGANIZ ATION 06/26/2024 [facility] DATE CREATED AUTHOR AUTHOR'S ORGANIZ ATION 10/01/2024 [facility] DATE CREATED AUTHOR AUTHOR'S ORGANIZ ATION 10/09/2024 [facility] DATE CREATED AUTHOR AUTHOR'S ORGANIZ ATION 10/16/2024 [facility] Reason for Visit (unrecogniz ed section and content) Reason Comments Jaw Pain Specialty Diagnoses / Procedures Referred By Natalyac t Referred To Contact Diagnoses Fracture of mandible of other specified site, initial encounter for open fracture (HCC) Referral ID Status Reason Start Date Expiration Date Visits Re quested Visits Authorized [id number] 1 1 Specialty Diagnoses / Procedures Referred By Bahman t Referred To Contact Diagnoses Trauma Referral ID Status Reason Start Date Expiration Date Visits Re quested Visits Authorized [id number] 1 1 Reason Comments URI Cough /Body [...] Expiration Date Visits Re quested Visits Authorized [id number] 1 1 Specialty Diagnoses / Procedures Referred By Bahman thorne Referred To Contact Diagnoses Trauma Closed fracture of mandible with routine healing, unspecified laterality, unspecified mandibular site, subsequent encounter Referral ID Status Reason Start Date Expiration Date Visits Re quested Visits Authorized [id number] 1 1 Scheduled Active and Recently Administ [...] csf leak) 1200 (New Bag - Provider: Priya Domínguez RN)1300 (Stopped - Provider: Priya Domínguez RN)1950 (New Bag - Provider: iFor Kelly, KATERYNA) 0412 (New Bag - Provider: [...] (Automatically Held - Provider: Transfer Provider, Automatic)1120 (APR Unhold - Provider: Transfer Provider, Automatic) ketorolac [...] Fior Kelly RN)1637 (Given - Provider: Priya Domínguez, KATERYNA)2140 (Given - Provider: Fior Kelly, KATERYNA) 0537 (Given - Provider: Fior Kelly, KATERYNA)0653 (MAR Hold - Provider: Transfer Provider, Automatic - Reason: Patient not available)1120 (MAR Unhold - Provider: Transfer Provider, Automatic) uxqowpaj-utf-jfklwox gluconate liquid 15 mL 15 mL, Oral, Daily, First dose on Sat10/02/24 at 1600 1600 (Not Given - Provider: Elo Campbell RN - Reason: Medication not available - Comment: requested) 0848 (Given - Provider: Priya Domínguez, KATERYNA) 0653 (MAR [...] Domínguez, KATERYNA)0900 (Canceled Entry - Provider: Priya Domínguez RN) 0653 (MAR Hold - Provider: Transfer Provider, Automatic - Reason: Patient not available)0900 (Automatically Held - Provider: Transfer Provider, Automatic)1120 (MAR Unhold - Provider: Transfer Provider, Automatic) PHENobarbital injection 221 mg (COMPLETED)(Linked Group 2) 221 mg (rounded from 225.9 mg = 3 mg/kg 75.3 kg Hardin weight), Intramuscular, Every 3 hours, First dose [...] 301.2 mg = 4 mg/kg 75.3 kg Hardin weight), Intramuscular, Once, On Sat10/02/24 at 1430, [...] (Automatically Held - Provider: Transfer Provider, Automatic)1120 ([facility] Unhold - Provider: Transfer Provider, Automatic) PHENobarbitaL tablet 32.4 mg(Linked Group 2) 32.4 mg, Oral, Every 24 hours, First dose on Sat10/05/24 at 2100, For 1 dose 0653 ([facility] Hold - Provider: Transfer Provider, Automatic - Reason: Patient not available)1120 ([facility] Unhold - Provider: Transfer Provider, Automatic) PHENobarbitaL tablet 64.8 mg (COMPLETED)(Linked Group 2) 64.8 mg, Oral, Every 12 hours, First dose on Sat10/03/24 at 0900, For 2 doses 0848 (Given - Provider: Priya Domínguez RN)2046 (Given - Provider: Fior Kelly RN) polyethylene [...] Priya Domínguez RN)1104 (Given - Provider: Priya Domínguez, KATERYNA)1635 (Given - Provider: Priya Domínguez RN)1944 (Given [...] spasms, Starting on Sat10/04/24 at 2200 0653 ([facility] Hold - Provider: Transfer Provider, Automatic - Reason: Patient not available)1120 ([facility] Unhold - Provider: Transfer Provider, Automatic) morphine syringe 4 mg 4 mg, Intravenous, Every 3 hours PRN, moderate to severe pain, Starting on Sat10/04/24 at 0046 0102 (Given - Provider: Fior Kelly RN)0405 (Given - Provider: Fior Kelly RN)0653 ([facility] Hold - Provider: Transfer Provider, Automatic - Reason: Patient not available)1120 ([facility] Unhold - Provider: Transfer Provider, Automatic) naloxone [...] respiratory rate is 10 or greater. 0653 ([facility] Hold - Provider: Transfer Provider, Automatic - Reason: Patient not available)1120 ([facility] Unhold - Provider: Transfer Provider, Automatic) naloxone (NARCAN) injection 0.4 mg(Linked Group 4) 0.4 mg, Intravenous, As needed, opioid reversal, patient is pulseless, breathless, and unresponsive, Starting on Sat10/02/24 at 1041, Call a code first, then administer naloxone dose undiluted IV Push over 30 seconds. 0653 ([facility] Hold - Provider: Transfer Provider, Automatic - Reason: Patient not available)1120 ([facility] Unhold - Provider: Transfer Provider, Automatic) nicotine [...] (Given - Provider: Elo Campbell RN) 0653 ([facility] Hold - Provider: Transfer Provider, Automatic - Reason: Patient not available)1120 ([facility] Unhold - Provider: Transfer Provider, Automatic) ondansetron (ZOFRAN) injection 4 mg(Linked Group 5) 4 mg, Intravenous, Every 6 hours PRN, nausea, vomiting, Starting on Sat10/02/24 at 1239, [] Oral or IV - use oral route if tolerated. 0653 ([facility] Hold - Provider: Transfer Provider, Automatic - Reason: Patient not available)1120 ([facility] Unhold - Provider: Transfer Provider, Automatic) ondansetron [...] immediately prior to dose being administered. 0653 ([facility] Hold - Provider: Transfer Provider, Automatic - Reason: Patient not available)1120 ([facility] Unhold - Provider: Transfer Provider, Automatic) oxyCODONE [...] Raissa Sneed LPN)1253 (Given - Provider: Colleen Casey RN)1640 (Given - Provider: Elo Campbell RN)2139 (Given - Provider: Fior Kelly RN) 0138 (Given - Provider: Fior Kelly RN)0519 (Given - Provider: Fior Kelly RN)1028 (Given - Provider: Priya Domínguez RN)1442 (Given - Provider: Priya Domínguez RN)2047 (Given - Provider: Fior Kelly RN) 0233 [...] mL, Intravenous, Once in imaging, contrast, Per heat engineering teacher (Radiology) for line patency check prior to [...] mL, Intravenous, Once in imaging, contrast, Per heat engineering teacher (Radiology), Starting on Sat10/02/24 at 1035, For 1 dose, 30 mL BEFORE contrast administration 50 mL AFTER contrast administration 1036 (Given - Provider: Larisa Villafuerte, TECHNOLOGIST) sodium chloride (PF) (NS) flush [...] 301.2 mg = 4 mg/kg 75.3 kg Hardin weight), Intramuscular, Once, On Sat10/02/24 at 1430, [...] 225.9 mg = 3 mg/kg 75.3 kg Hardin weight), Intramuscular, Every 3 hours, First dose [...] mL, Intravenous, Once in imaging, contrast, Per heat engineering teacher (Radiology) for line patency check prior to contrast administration, Starting on Sat10/02/24 at 1035, For 1 dose And sodium chloride (PF) (NS) 0.9 % contrast line flush 80 mL (COMPLETED)Jump to med 80 mL, Intravenous, Once in imaging, contrast, Per heat engineering teacher (Radiology), Starting on Sat10/02/24 at 1035, For [...] 1 dose 1853 (Given - Provider: Ramos Car, KATERYNA) ketorolac (TORADOL) injection 15 mg 15 mg, [...] 135.54 mg = 1.8 mg/kg 75.3 kg Hardin weight), Intramuscular, Every 3 hours, First dose [...] hepatic dysfunction 2350 (Given - Provider: Ramos Car, KATERYNA) 337 (Given - Provider: Olimpia aYnez RN) PHENobarbital injection 182 mg (COMPLETED)(Linked Group 1) 182 mg (rounded from 180.72 mg = 2.4 mg/kg 75.3 kg Hardin weight), Intramuscular, Once, On Sat10/04/24 at 2124, For 1 dose, If volume exceeds 2 mL please draw up dose in multiple syringes. VESICANT, Does patient require REDUCED or STANDARD dosing regimen: REDUCED regimen (patient has known risk factors), Reduced Regimen Pradipnes: Patient has clinically significant risk factors for a reduced dose (6mg/kg) 65 years old or older, significant respiratory impairment (i.e., COPD, Pneumonia, Rib Fractures), concurrent benzodiazepine therapy or hepatic dysfunction 2130 (Given - Provider: Jeremias Huff, KATERYNA) PHENobarbitaL tablet 32.4 mg(Linked Group 1) 32.4 [...] 8 per minute., Starting on 10/04/24 at 2120, Mix nalOXone (NARCAN) 0.4 mg [...] severe pain, Starting on 10/04/24 at 2144 2225 (Given - Provider: Jeremias Huff RN) [...] mg, Oral, Nightly PRN, sleep, Starting on 10/04/24 at 2120 Linked Groups Order Group 1: PHENobarbital injection 182 mg (COMPLETED)Jump to med 182 mg (rounded from 180.72 mg = 2.4 mg/kg 75.3 kg Hardin weight), Intramuscular, Once, On Sat10/04/24 at 2125, [...] 135.54 mg = 1.8 mg/kg 75.3 kg Hardin weight), Intramuscular, Every 3 hours, First dose [...] (CANCELED) Routine, Continuous, Starting on Sat10/04/24 at 2120, Until Specified And sodium chloride (PF) (NS) flush 5 mLJump to med 5 mL, Intravenous, As needed, line care, Starting on Sat10/04/24 at 2118 And sodium chloride (PF) (NS) flush 5 [...] Kaitlyn Auguste LPN)1513 (Given - Provider: Kaitlyn FrancoisoMOUSTAPHAN) acetaminophen (TYLENOL) tablet 650 mg 650 mg, [...] - Reason: Contraindicated)1247 (Given - Provider: Kaitlyn FrancoisoMOUSTAPHAN)1523 (Given - Provider: Kaitlyn Francoiso MOLD BREAKER)2025 (Given - Provider: Ashtyn Hawkins LPN) 0047 (Given - Provider: Ashtyn Hawkins LPN)0518 (Given - Provider: Ashtyn Hawkins LPN)1004 (Given - Provider: Kaitlyn FrancoisoMOUSTAPHAN)1309 (Given - Provider: Kaitlyn Francoiso MOLD BREAKER)1600 (Not Given - Provider: Kaitlyn Alicia Francoiso MOLD BREAKER - Reason: Contraindicated) amoxicillin-clavulanate (AUGMENTIN) 875-125 mg per tablet 1 tablet 1 tablet, Oral, Every 12 hours scheduled, First dose on Sat10/09/24 at 2100, For 7 days, Indication: Skin/Soft Tissue Infection 2114 (Given - Provider: Lor Holm LPN) 0823 (Given - Provider: Kaitlyn Auguste LPN)2026 (Given - Provider: Ashtyn Hawkins LPN) 1005 (Given - Provider: Kaitlyn Auguste LPN) chlorhexidine (PERIDEX) 0.12 % solution 15 mL 15 mL, Swab, 4 times daily, First dose on Kendra 10/08/24 at 0900, Do Not Swallow 1037 (Given - Provider: Jesus Barahona RN)1330 (Given - Provider: Jesus Barahona RN)1700 (Not Given - Provider: Jesus Barahona RN - Reason: Other)2107 (Given - Provider: Lor Holm LPN) 0823 (Given - Provider: Kaitlyn Auguste LPN)1248 (Given - Provider: Kaitlyn Auguste LPN)170 (Given - Provider: Kaitlyn Auguste LPN)2025 (Given - Provider: Ashtyn Hawkins LPN) 1005 (Given - Provider: Kaitlyn Auguste LPN)1309 (Given - Provider: Kaitlyn Auguste LPN)1700 (Given - Provider: Kaitlyn Auguste LPN) enoxaparin (LOVENOX) syringe 30 mg 30 mg, Subcutaneous, 2 times daily, First dose on Kendra 10/08/24 at 2100, Administer in abdomen unless otherwise directed by prescriber. Notify physician if patient refuses., Indication: VTE Prophylaxis 1037 (Given - Provider: Jesus Barahona RN)2107 (Given - Provider: Lor Holm LPN) 08 (Given - Provider: Kaitlyn Auguste LPN)2026 (Given - Provider: Ashtyn Hawkins LPN) 0900 (Not Given - Provider: Kaitlyn Auguste LPN - Reason: Patient/family refused) folic acid (FOLVITE) tablet 1 mg 1 mg, Oral, Daily (in the afternoon), First dose on Kendra 10/08/24 at 1645 1329 (Given - Provider: Jesus [...] LPN) 0824 (Given - Provider: Kaitlyn Auguste LPN)2025 (Given - Provider: Ashtyn Hawkins LPN) 1004 [...] 225.9 mg = 3 mg/kg 75.3 kg Hardin weight), Oral, Every 3 hours, First dose [...] 225.9 mg = 3 mg/kg 75.3 kg Hardin weight), Oral, Every 3 hours, First dose [...] 301.2 mg = 4 mg/kg 75.3 kg Hardin weight), Oral, Once, On Sat10/09/24 at 0130, [...] IV Push 1329 (Given - Provider: Jesus Barahona, RN) 1348 (Given - Provider: Diya Tabares [...] equal to 8 per minute., Starting on Sat10/08/24 at 1649, Mix nalOXone (NARCAN) 0.4 mg (1mL) with 9 mL of Normal Saline to total 10 mL. Administer 0.1 mg (2.5mL) IV Push every 2 minutes until respiratory rate is 10 or greater. naloxone (NARCAN) injection 0.4 mg(Linked Group 4) 0.4 mg, Intravenous, As needed, opioid reversal, patient is pulseless, breathless, and unresponsive, Starting on Sat10/08/24 at 1649, Call a code first, then [...] 301.2 mg = 4 mg/kg 75.3 kg Hardin weight), Oral, Once, On Sat10/09/24 at 0130, [...] 225.9 mg = 3 mg/kg 75.3 kg Hardin weight), Oral, Every 3 hours, First dose [...] 225.9 mg = 3 mg/kg 75.3 kg Hardin weight), Oral, Every 3 hours, First dose [...] Do Not Swallow 0237 (Given - Provider: Sonai Mcduffie RN)0910 (Given - Provider: Arnie Akins [...] (APR Unhold - Provider: Transfer Provider, Automatic) senna-docusate [...] Reason: Patient/family refused)2100 (Not Given - Provider: Romleia Grove RN - Reason: Patient/family refused) 0900 [...] Infection 184 (New Bag - Provider: Key Daniel, KATERYNA)2007 (Stopped - Provider: Ludwin Tucker RN) 0237 (New Bag - Provider: Sonia Mcduffie, KATERYNA)0928 (New Bag - Provider: Arnie Akins RN)104 (Stopped - Provider: Arnie Akins, KATERYNA)2006 (New Bag - Provider: Romelia Grove RN - Comment: med not on the floor)2049 (Stopped - Provider: Romelia Grove, KATERYNA) 0403 (New Bag - Provider: Romelia Grove, [...] 0948 (New Bag - Prov ider: Marlen Bryan, KATERYNA)1020 (Continued by Anesthesia - Provider: Leia Fernandez [...] Esme Parks RN)1132 (Given - Provider: Esme Parks, KATERYNA)1142 (Given - Provider: Esme Parks, KATERYNA)1148 (Given - Provider: Esme Parks RN) nicotine [...] lozenge. DO NOT CRUSH OR CHEW. 0924 (APR Hold - Provider: Transfer Provider, Automatic - Reason: Patient not available)1242 (APR Unhold - Provider: Transfer Provider, Automatic) ondansetron (ZOFRAN) injection 4 mg(Linked Group 2) 4 mg, Intravenous, Every 6 hours PRN, nausea, vomiting, Starting on Sat10/12/24 at 2152, [] Oral or IV - use oral route if tolerated. 0924 (APR Hold - Provider: Transfer Provider, [...] until immediately prior to dose being administered. 0924 (APR Hold - Provider: Transfer Provider, [...] oral route. 1123 (Given - Provider: Esme Parks, KATERYNA) oxyCODONE (ROXICODONE) 10 mg/0.5 mL concentrated solution 5 mg (CANCELED) 5 mg, Sublingual, Every 4 hours PRN, moderate to severe pain, Starting on Sat10/12/24 at 1621, For 2 doses 1715 (Given - Provider: Key Daniel, KATERYNA) oxyCODONE (ROXICODONE) immediate release tablet 5 mg 5 mg, Oral, Every 4 hours PRN, moderate to severe pain, Starting on Sat10/12/24 at 2152 2209 (Given - Provider: Ludwin Tucker, RN) 1246 (Given - Provider: Arnie Akins, KATERYNA)1607 (Given - Provider: Arnie Akins, KATERYNA)2325 (Given - Provider: Ashli Mendes, KATEYRNA) 0351 (Given - Provider: Romelia Grove, KATERYNA)0924 ([facility] Hold - Provider: Transfer Provider, Automatic - Reason: Patient not available)1242 ([facility] Unhold - Provider: Transfer Provider, Automatic) PHENobarbital [...] Provider, Automatic - Reason: Patient not available)1242 ([facility] Unhold - Provider: Transfer Provider, Automatic) sodium chloride (NS) 0.9 % irrigation solution (CANCELED) As needed, Starting on Sat10/14/24 at 1045, Intra-Procedure 1045 (Given - Provider: Marilou Vasquez MD) sodium chloride (PF) (NS) flush 5 mL(Linked Group 1) 5 mL, Intravenous, As needed, line care, Starting on Sat10/13/24 at 2007 0924 ([facility] Hold - Provider: Transfer Provider, Automatic - Reason: Patient not available)1242 ([facility] Unhold - Provider: Transfer Provider, Automatic) sodium [...] RN)0642 (Stopped - Provider: Romelia Grove RN)0924 ([facility] Hold - Provider: Transfer Provider, Automatic - Reason: Patient not available)1242 ([facility] Unhold - Provider: Transfer Provider, Automatic) traZODone (DESYREL) tablet 50 mg 50 mg, Oral, Nightly PRN, sleep, Starting on Sat10/13/24 at 092023 (Given - Provider: Romelia Grove RN) 0924 ([facility] Hold - Provider: Transfer Provider, Automatic - Reason: Patient not available)1242 ([facility] Unhold - Provider: Transfer Provider, Automatic) No [...] BE BASED ON THE PRIMARY CLINICAL RECORDS. [employer] [facility]. provides no warranty or guarantee of the accuracy or completeness of information in this document.
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
--- OUTSIDE RECORDS SUMMARY | 2024-10-18 19:13 | XMS RPT_ITS | CCD ---
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 Monocytes/100 WBC (Bld) 9.1 % [facility] Neutrophils (Bld) [#/Vol] 7.39 10*3/uL High [facility] Neutrophils/100 WBC (Bld) 70.4 % [facility] Nucleated RBC (Bld) [#/Vol] 0 10*3/uL [facility] Nucleated RBC/100 WBC (Bld) [Ratio] 0 % [facility] Platelet mean volume (Bld) [Entitic vol] 9.5 fL 9.4 - 12.4 fL [facility] Platelets (Bld) [#/Vol] 348 10*3/uL [facility] RBC (Bld) [#/Vol] 3.64 10*6/uL Low [facility] WBC (Bld) [#/Vol] 10.5 10*3/uL [facility] CBC WITH AUTO DIFFERENTIALon 10-08-2024 AUTO NRBC 0.0 % Normal [facility] Comment on above: Performed By: #### 4 4012 #### [facility] [address] [place] [address] Pratik Dukes M.D. [id number] AUTO NRBC ABS COUNT 0.00 K/mcL Normal 0.00-0.00 [facility] Comment on above: Performed By: #### 4 8854 #### [facility] [address] [place] [address] Pratik Dukes M.D. [id number] BASOPHILS ABSOLUTE COUNT 0.09 K/mcL Normal 0.00-0.30 [facility] Comment on above: Performed By: #### 4 4010 #### [facility] [address] [place] [address] Pratik Dukes M.D. [id number] Basophils/100 WBC (Bld) 0.9 % Normal [facility] Comment on above: Performed By: #### 4 4014 #### [facility] [address] [place] [address] Pratik Dukes M.D. [id number] Eosinophils (Bld) [#/Vol] 0.16 10*3/uL Normal 0.00-0.50 [facility] Comment on above: Performed By: #### 4 4014 #### [facility] [address] [place] [address] Pratik Dukes M.D. [id number] Eosinophils/100 WBC (Bld) 1.5 % Normal [facility] Comment on above: Performed By: #### 4 4014 #### [address] [place] [address] Pratik Dukes M.D. [id number] Erythrocyte distribution width (RBC) [Ratio] 11.8 % Normal 11.6-14.8 [facility] Comment on above: Performed By: #### 4 4014 #### [address] [id number] Pratik Dukes M.D. [id number] Hematocrit (Bld) [Volume fraction] 36.5 % Low 41.0-53.0 [facility] Comment on above: Performed By: #### 4 4014 #### [facility] [address] [place], [place] [address] Pratik Dukes M.D. [id number] Hemoglobin (Bld) [Mass/Vol] 12.1 g/dL Low 13.5-17.5 [facility] Comment on above: Performed By: #### 4 4014 #### [facility] [address] [place] [address] Pratik Dukes M.D. [id number] IG ABSOLUTE 0.06 K/mcL Normal 0.00-0.30 [facility] Comment on above: Performed By: #### 4 4014 #### [facility] [address] [place], [place] [address] Pratik Dukes M.D. [id number] IG PERCENT 0.60 % Normal [facility] Comment on above: Result Comment: The IG parameter is the percentage of metamyelocytes, myelocytes and promyelocytes. An immature granulocyte count (IG) of 1% or more suggests the possibility of infection, an IG count of 3% is very likely related to an infection. Performed By: #### 4 4014 #### [facility] [address] [place] [address] Pratik Dukes M.D. [id number] Lymphocytes (Bld) [#/Vol] 1.84 10*3/uL Normal 0.90-4.00 [facility] Comment on above: Performed By: #### 4 4014 #### [facility] [address] [place] [address] Pratik Dukes M.D. [id number] Lymphocytes/100 WBC (Bld) 17.5 % Normal [facility] Comment on above: Performed By: #### 4 4014 #### [facility] [address] [place], [place] [address] Pratik Dukes M.D. [id number] MCH (RBC) [Entitic mass] 33.2 pg Normal 26.0-34.0 [facility] Comment on above: Performed By: #### 4 4014 #### [facility] [address] [place], [place] [address] Pratik Dukes M.D. [id number] MCV (RBC) [Entitic vol] 100.3 fL High 80.0-100.0 [facility] [place] Comment on above: Performed By: #### 4 4014 #### [facility] [address] [place], [place] [address] Pratik Dukes M.D. [id number] MEAN CORPUSCULAR HEMOGLOBIN CONC 33.2 g/dL Normal 31.0-37.0 [facility] Comment on above: Performed By: #### 4 4014 #### [facility] [address] [place], [place] [address] Pratik Dukes M.D. [id number] Monocytes (Bld) [#/Vol] 0.96 10*3/uL High 0.30-0.90 [facility] Comment on above: Performed By: #### 4 4014 #### [facility] [address] [place] [address] Pratik Dukes M.D. [id number] Monocytes/100 WBC (Bld) 9.1 % Normal [facility] Comment on above: Performed By: #### 4 4014 #### [facility] [address] [place], [place] [address] Pratik Dukes M.D. [id number] NEUTROPHILS ABSOLUTE COUNT 7.39 K/mcL High 1.70-7.00 [facility] Comment on above: Performed By: #### 4 4014 #### [facility] [address] [place], [place] [address] Pratik Dukes M.D. [id number] Neutrophils/100 WBC (Bld) 70.4 % Normal [facility] Comment on above: Performed By: #### 4 4014 #### [facility] [address] [place], [place] [address]Sophia Dukes M.D. [id number] Platelet mean volume (Bld) [Entitic vol] 9.5 fL Normal 9.4-12.4 [facility] Comment on above: Performed By: #### 4 4014 #### [facility] [address] [place], [place] [address] Pratik Dukes M.D. [id number] Platelets (Bld) [#/Vol] 348 10*3/uL Normal 150-400 [facility] Comment on above: Performed By: #### 4 4014 #### [facility] [address] [place] [address] Pratik Dukes M.D. [id number] RBC (Bld) [#/Vol] 3.64 10*6/uL Low 4.50-5.90 [facility] Comment on above: Performed By: #### 4 4014 #### [facility] [address] [place] [address] Pratik Dukes M.D. [id number] WBC (Bld) [#/Vol] 10.50 10*3/uL Normal 4.50-11.00 [facility] Comment on above: Performed By: #### 4 4014 #### [facility] [address] [place] [address] Pratik Dukes M.D. [id number] CONSULTon 10-08-2024 CONSULT --- Attestation signed by Marilou Vasquez MD at 10/08/2024 9:11 AM Discussed with team and agree with plan. PLASTIC RECONSTRUCTIVE SURGERY CONSULT NOTE Patient Name: Kade Gonzalez MR #: [id number] Assessment/Plan: Kade Gonzalez is a 28 y.o.male [...] MANDIBLE MAXILLA; Surgeon: Marilou Vasquez MD; Location: [facility]; Service: Plastics; Laterality: Bilateral; Social [...] Herzog CNP Plastic Reconstructive Surgery Service Pager (5m-8v): [1] Social History Socioeconomic History Marital status: [...] Vital Sign Unable (more content not included)... [facility] CT MAXILLOFACIAL WITH CONTRA ST [...] on SatOct 08, 2024 4:52:01 PM EDT [facility] Comment on above: Order Comment: [...] abscess. RECOMMENDATIONS: Surgical evaluation. Workstation ID: [id number] Qio EXAMINATION: CT OF THE FACE WITH CONTRAST [...] measuring 6.2 x 5.3 x 3.1 cm. [facility] Salima Anaya MD - 10/08/2024 EXAMINATION: CT OF THE [...] abscess. RECOMMENDATIONS: Surgical evaluation. Workstation ID: [id number] [facility] Radiology Study observation (narrative) CT Maxillofacial region W co ntrast IVOrdered By: Salima Anaya on 10-08-2024 [facility] Work Phone: DRUGS OF ABUSE SCREEN, URINE on 10-08-2024 AMPHETAMINE SCREEN, URINE Positive Abnormal None Detected [facility] Comment on above: Order Comment: [facility] has implemented the eGFR calculation approach that does not have a coefficient for race that conforms to the NKF-ASN Task Force Recommendations. Result Comment: Urin e Amphetamine Cutoff: < 1000 ng/mL = None Detected Performed By: #### 4 6124 #### [facility] [address] [address] Travis Christensen M.D. [id number] BARBITURATE SCREEN URINE Positive Abnormal None Detected [facility] Comment on above: Order Comment: [facility] has implemented the eGFR calculation approach that does not have a coefficient for race that conforms to the NKF-ASN Task Force Recommendations. Result Comment: Urin e Barbiturates Cutoff: < 200 ng/mL = None Detected Performed By: #### 4 6124 #### [facility] [address] [address] Travis Christensen M.D. [id number] BENZODIAZEPINE SCREEN, URINE Not detected Normal None Detected [facility] Comment on above: Order Comment: [facility] has implemented the eGFR calculation approach that does not have a coefficient for race that conforms to the NKF-ASN Task Force Recommendations. Result Comment: Urin e Benzodiazepine Cutoff: < 200 ng/mL = None Detected Performed By: #### 4 6124 #### [facility] [address] [address] Travis Christensen M.D. [id number] BUPRENORPHINE, URINE Not detected Normal None Detected [facility] Comment on above: Order Comment: [facility] has implemented the eGFR calculation approach that does not have a coefficient for race that conforms to the NKF-ASN Task Force Recommendations. Result Comment: Urin e Buprenorphine Cutoff: < 5 ng/mL = None Detected Performed By: #### 4 6124 #### [facility] [address] [address] Travis Christensen M.D. [id number] CANNABINOID SCREEN URINE Not detected Normal None Detected [facility] Comment on above: Order Comment: [facility] has implemented the eGFR calculation approach that does not have a coefficient for race that conforms to the NKF-ASN Task Force Recommendations. Result Comment: Urin e Cannabinoids Cutoff: < 50 ng/mL = None Detected Performed By: #### 4 6124 #### [facility] [address] [address] Travis Christensen M.D. [id number] COCAINE, SCREEN URINE Not detected Normal None Detected [facility] Comment on above: Order Comment: [facility] has implemented the eGFR calculation approach that does not have a coefficient for race that conforms to the NKF-ASN Task Force Recommendations. Result Comment: Urin e Cocaine Cutoff: < 300 ng/mL = None Detected Performed By: #### 4 6124 #### [facility] [address] [address] Travis Christensen M.D. [id number] FENTANYL, URINE Not detected Normal None Detected [facility] Comment on above: Order Comment: [facility] has implemented the eGFR calculation approach that does not have a coefficient for race that conforms to the NKF-ASN Task Force Recommendations. Result Comment: Urin e Fentanyl Cutoff: < 1 ng/mL = None Detected Performed By: #### 4 6124 #### [facility] [address] [address] Travis Christensen M.D. [id number] METHADONE SCREEN, URINE Not detected Normal None Detected [facility] Comment on above: Order Comment: [facility] has implemented the eGFR calculation approach that does not have a coefficient for race that conforms to the NKF-ASN Task Force Recommendations. Result Comment: Urin e Methadone Cutoff: < 300 ng/mL = None Detected Performed By: #### 4 6124 #### [facility] [address], [place] [address] Travis Christensen M.D. [id number] OPIATE SCREEN URINE Not detected Normal None Detected [facility] Comment on above: Order Comment: [facility] has implemented the eGFR calculation approach that does not have a coefficient for race that conforms to the NKF-ASN Task Force Recommendations. Result Comment: Urin e Opiates Cutoff: < 300 ng/mL = None Detected Performed By: #### 4 6124 #### [facility] [address], [place] [address] Travis Christensen M.D. [id number] OXYCODONE SCREEN, URINE Not detected Normal None Detected [facility] Comment on above: Order Comment: [facility] has implemented the eGFR calculation approach that does not have a coefficient for race that conforms to the NKF-ASN Task Force Recommendations. Result Comment: Urin e Oxycodone Cutoff: < 100 ng/mL = None Detected Performed By: #### 4 6124 #### [facility] [address], [place] [address] Travis Christensen M.D. [id number] Drugs of Abuse Screen, Urine Ordered By: Axel Chanel on 10-08-2024 Amphetamines Ql (U) Positive Abnormal None Detected [facility] Comment on above: Urine Amphetamine Cu toff: < 1000 ng/mL = None Detected Barbiturates Screen Ql (U) Positive Abnormal None Detected [facility] Comment on above: Urine Barbiturates C utoff: < 200 ng/mL = None Detected Benzodiazepines Ql (U) Not detected None Detected [facility] Comment on above: Urine Benzodiazepine Cutoff: < 200 ng/mL = None Detected Buprenorphine Ql (U) Not detected None Detected [facility] Comment on above: Urine Buprenorphine Cutoff: < 5 ng/mL = None Detected Cannabinoids Screen Ql (U) Not detected None Detected [facility] Comment on above: Urine Cannabinoids C utoff: < 50 ng/mL = None Detected Cocaine Ql (U) Not detected None Detected [facility] Comment on above: Urine Cocaine Cutoff : < 300 ng/mL = None Detected fentaNYL+Norfentanyl Screen Ql (U) Not detected None Detected [facility] Comment on above: Urine Fentanyl Cutof f: < 1 ng/mL = None Detected Interpretation and review of laboratory results Abnormal [facility] Methadone Screen Ql (U) Not detected None Detected [facility] Comment on above: Urine Methadone Cuto ff: < 300 ng/mL = None Detected Opiates Screen Ql (U) Not detected None Detected [facility] Comment on above: Urine Opiates Cutoff : < 300 ng/mL = None Detected oxyCODONE Ql (U) Not detected None Detected [facility] Comment on above: Urine Oxycodone Cuto ff: < 100 ng/mL = None Detected Screen results shoul d be used for treatment purposes only. Specimen will be kept for 2 weeks, if the sample is adequate. Confirmation testing can be initiated by calling the lab within 2 weeks. [facility] ED Prov Noteon 10-08-2024 ED Prov Note PCP - No, Physician [phone] Chief Complaint Patient presents with Jaw Pain [...] MANDIBLE MAXILLA; Surgeon: Marilou Vasquez MD; Location: [facility]; Service: Plastics; Laterality: Bilateral; Social History Social History [1] Family history History reviewed. No pertinent family history. Physical Exam Initial Vital Signs BP 110/72 Pulse 88 Temp 97.9 degrees F (36.6 degrees C) (Axillary) Resp 16 Ht Wt 79.4 kg (175 lb) SpO2 98% [...] All other components within normal limits Narrative: [facility] has implemented the eGFR [...] Procedure Abnormality Status --------- ------ CBC Auto Differential[[id number]] Abnormal Final r (more content not included)... Normal [facility] Ethanol [Mass/Vol]on 025 Interpretation and review of laboratory results Normal [facility] H AND Frank 10-08-2024 H AND P --- Attestation signed by Holli Ding DO at 10/08/2024 3:03 PM Trauma, Surgical Critical Care, and Acute Care Surgery Attending Note I agree with the note done by the PURA/fellow/resident. Please see and link to my documentation from the same date of service. Electronically signed: Holli Ding DO, FACS, [facility] Trauma, Surgical Critical Care, and Acute [...] 6 GCS: (more content not included)... Normal [facility] HEPATIC FUNCTION PANELon Albumin [Mass/Vol] 3.4 g/dL Normal 3.2-5.2 [facility] Comment on above: Performed By: #### 4 4014 #### [facility] [place], [place] [address] Pratik Dukes M.D. [id number] Order Comment: [facility] has implemented the eGFR calculation approach that does not have a coefficient for race that conforms to the NKF-ASN Task Force Recommendations. Performed By: #### 4 6154 #### [facility] [address] [address] Travis Christensen M.D. [id number] ALP [Catalytic activity/Vol] 79 U/L Normal 40-140 [facility] Comment on above: Performed By: #### 4 4014 #### [facility] [address] [place] [address] Pratik Dukes M.D. [id number] ALT [Catalytic activity/Vol] 22 U/L Normal 0-50 U/L [facility] Comment on above: Performed By: #### 4 4014 #### [facility] [address] [place] [address] Pratik Dukes M.D. [id number] AST [Catalytic activity/Vol] 29 U/L Normal 0-50 U/L [facility] Comment on above: Result Comment: Spec imen slightly hemolyzed. Performed By: #### 4 4014 #### [facility] [address] [place] [address] Pratik Dukes M.D. [id number] Bilirubin [Mass/Vol] 0.4 mg/dL Normal 0.0-1.3 [facility] Comment on above: Performed By: #### 4 4014 #### [facility] [address] [place], [place] [id number] Pratik Dukes M.D. [id number] BILIRUBIN, DIRECT < Normal 0.0-0.4 [facility] Comment on above: Performed By: #### 4 4014 #### [facility] [address] [place], [place] [id number] Pratik Dukes M.D. [id number] Protein [Mass/Vol] 7.0 g/dL Normal 6.0-8.0 [facility] Comment on above: Performed By: #### 4 4014 #### [facility] [address] [place] [address] Pratik Dukes M.D. [id number] Hepatic function 2000 panelo n 08-28-2025 Albumin [Mass/Vol] 3.4 g/dL 3.2 - 5.2 g/dL [facility] ALP [Catalytic activity/Vol] 79 U/L 40 - 140 U/L [facility] ALT [Catalytic activity/Vol] 22 U/L 0 - 50 U/L [facility] AST [Catalytic activity/Vol] 29 U/L 0 - 50 U/L [facility] Comment on above: Specimen slightly he molyzed. Bilirubin [Mass/Vol] 0.4 mg/dL 0.0 - 1 .3 mg/dL [facility] Bilirubin.conjugated [Mass/Vol] mg/dL 0.0 - 0.4 mg/dL [facility] Interpretation and review of laboratory results Normal [facility] Protein [Mass/Vol] 7 g/dL 6.0 - 8.0 g/dL [facility] RENAL FUNCTION PANELon 10-08 Anion gap [Moles/Vol] 23 mmol/L High 10-20 [facility] Comment on above: Order Comment: [facility] has implemented the eGFR calculation approach that does not have a coefficient for race that conforms to the NKF-ASN Task Force Recommendations. Performed By: #### 4 6124 #### [facility] [address] [id number] Travis Christensen M.D. [id number] Calcium [Mass/Vol] 8.8 mg/dL Normal 8.4-10.2 [facility] Comment on above: Order Comment: [facility] has implemented the eGFR calculation approach that does not have a coefficient for race that conforms to the NKF-ASN Task Force Recommendations. Performed By: #### 4 6124 #### [facility] [address] [id number] Travis Christensen M.D. [id number] Chloride [Moles/Vol] 101 mmol/L Normal 98-108 [facility] Comment on above: Order Comment: [facility] has implemented the eGFR calculation approach that does not have a coefficient for race that conforms to the NKF-ASN Task Force Recommendations. Performed By: #### 4 6124 #### [facility] [address] [id number] Travis Christensen M.D. [id number] Creatinine [Mass/Vol] 0.57 mg/dL Normal 0.50-1.30 [facility] Comment on above: Order Comment: [facility] has implemented the eGFR calculation approach that does not have a coefficient for race that conforms to the NKF-ASN Task Force Recommendations. Performed By: #### 4 6124 #### [facility] [address] [id number] Travis Christensen M.D. [id number] EGFR 138 mL/min/1.73 m2 Normal >=60 [facility] Comment on above: Order Comment: [facility] has implemented the eGFR calculation approach that does not have a coefficient for race that conforms to the NKF-ASN Task Force Recommendations. Result Comment: Luzma mated GFR was calculated using the 2020 CKD-EPI creatinine equation. Performed By: #### 4 6124 #### [facility] [address] [id number] Travis Chrsitensen M.D. [id number] Glucose [Mass/Vol] 106 mg/dL High 65-99 [facility] Comment on above: Order Comment: [facility] has implemented the eGFR calculation approach that does not have a coefficient for race that conforms to the NKF-ASN Task Force Recommendations. Performed By: #### 4 6124 #### [facility] [address] [id number] Travis Christensen M.D. [id number] HCO3 (Bld) [Moles/Vol] 16 mmol/L Low 21-32 [facility] Comment on above: Order Comment: [facility] has implemented the eGFR calculation approach that does not have a coefficient for race that conforms to the NKF-ASN Task Force Recommendations. Performed By: #### 4 6124 #### [facility] [address] [place], [place] [address] Travis Christensen M.D. [id number] Phosphate [Mass/Vol] 3.7 mg/dL Normal 2.7-4.5 [facility] Comment on above: Order Comment: [facility] has implemented the eGFR calculation approach that does not have a coefficient for race that conforms to the NKF-ASN Task Force Recommendations. Performed By: #### 4 6194 #### [facility] [address] [place], [place] [address] Travis Christensen M.D. [id number] Potassium [Moles/Vol] 3.6 mmol/L Normal 3.5-5.1 [facility] Comment on above: Order Comment: [facility] has implemented the eGFR calculation approach that does not have a coefficient for race that conforms to the NKF-ASN Task Force Recommendations. Performed By: #### 4 6124 #### [facility] [address] [place], [place] [address] Travis Christensen M.D. [id number] Sodium [Moles/Vol] 136 mmol/L Normal 135-145 [facility] Comment on above: Order Comment: [facility] has implemented the eGFR calculation approach that does not have a coefficient for race that conforms to the NKF-ASN Task Force Recommendations. Performed By: #### 4 6124 #### [facility] [address] [place], [place] [address] Travis Christensen M.D. [id number] Urea nitrogen [Mass/Vol] 10 mg/dL Normal 8-25 [facility] Comment on above: Order Comment: [facility] has implemented the eGFR calculation approach that does not have a coefficient for race that conforms to the NKF-ASN Task Force Recommendations. Performed By: #### 4 6124 #### [facility] [address] [place], [place] [address] Travis Christensen M.D. [id number] Urea nitrogen/Creatinine [Mass ratio] 17.5 mg/mg Normal 10.0-20.0 [facility] Comment on above: Order Comment: [facility] has implemented the eGFR calculation approach that does not have a coefficient for race that conforms to the NKF-ASN Task Force Recommendations. Performed By: #### 4 6124 #### [facility] [address] [place], [place] [address] Travis Christensen M.D. [id number] Renal function 2000 panelOrd ered By: Fior Naranjo on 10-08-2024 Albumin [Mass/Vol] 3.4 g/dL 3.2 - 5.2 g/dL [facility] Anion gap [Moles/Vol] 23 mmol/L High 10 - 2 0 mmol/L [facility] Calcium [Mass/Vol] 8.8 mg/dL 8.4 - 10. 2 mg/dL [facility] Chloride [Moles/Vol] 101 mmol/L 98 - 10 8 mmol/L [facility] Creatinine [Mass/Vol] 0.57 mg/dL 0.50 - 1.30 mg/dL [facility] GFR/1.73 sq M.predicted CKD-EPI (S/P/Bld) [Vol rate/Area] 138 - PINF [facility] Comment on above: Estimated GFR was ca lculated using the 2020 CKD-EPI creatinine equation. Glucose [Mass/Vol] 106 mg/dL High 65 - 99 mg/dL [facility] HCO3 [Moles/Vol] 16 mmol/L Low 21 - 32 mmol/L [facility] Interpretation and review of laboratory results Abnormal [facility] Phosphate [Mass/Vol] 3.7 mg/dL 2.7 - 4 .5 mg/dL [facility] Potassium [Moles/Vol] 3.6 mmol/L 3.5 - 5.1 mmol/L [facility] Sodium [Moles/Vol] 136 mmol/L 135 - 145 mmol/L [facility] Urea nitrogen [Mass/Vol] 10 mg/dL 8 - 25 mg/dL [facility] Urea nitrogen/Creatinine [Mass ratio] 17.5 mg/mg 10.0 - 20.0 [facility] has implemented the eGFR calculation approach that does not have a coefficient for race that conforms to the NKF-ASN Task Force Recommendations. [facility] BASIC METABOLIC PANELon 08-2 Anion gap [Moles/Vol] 16 mmol/L Normal 10-20 [facility] Comment on above: Order Comment: [facility] has implemented the eGFR calculation approach that does not have a coefficient for race that conforms to the NKF-ASN Task Force Recommendations. Performed By: #### 4 4014 #### [facility] [address] [place] [address] Pratik Dukes M.D. [id number] Calcium [Mass/Vol] 8.6 mg/dL Normal 8.4-10.2 [facility] Comment on above: Order Comment: [facility] has implemented the eGFR calculation approach that does not have a coefficient for race that conforms to the NKF-ASN Task Force Recommendations. Performed By: #### 4 4014 #### [facility] [address] [place] [address] Pratik Dukes M.D. [id number] Chloride [Moles/Vol] 100 mmol/L Normal 98-108 [facility] Comment on above: Order Comment: [facility] has implemented the eGFR calculation approach that does not have a coefficient for race that conforms to the NKF-ASN Task Force Recommendations. Performed By: #### 4 4014 #### [facility] [address] [place] [address] Pratik Dukes M.D. [id number] Creatinine [Mass/Vol] 0.59 mg/dL Normal 0.50-1.30 [facility] Comment on above: Order Comment: [facility] has implemented the eGFR calculation approach that does not have a coefficient for race that conforms to the NKF-ASN Task Force Recommendations. Performed By: #### 4 4014 #### [address] [address] Pratik Dukes M.D. [id number] EGFR 136 mL/min/1.73 m2 Normal >=60 [facility] Comment on above: Order Comment: [facility] has implemented the eGFR calculation approach that does not have a coefficient for race that conforms to the NKF-ASN Task Force Recommendations. Result Comment: Luzma mated GFR was calculated using the 2020 CKD-EPI creatinine equation. Performed By: #### 4 4014 #### [facility] [address] [place] [address] Pratik Dukes M.D. [id number] Glucose [Mass/Vol] 122 mg/dL High 65-99 [facility] Comment on above: Order Comment: [facility] has implemented the eGFR calculation approach that does not have a coefficient for race that conforms to the NKF-ASN Task Force Recommendations. Performed By: #### 4 4014 #### [facility] [address] [place] [address] Pratik Dukes M.D. [id number] HCO3 (Bld) [Moles/Vol] 23 mmol/L Normal 21-32 [facility] Comment on above: Order Comment: [facility] has implemented the eGFR calculation approach that does not have a coefficient for race that conforms to the NKF-ASN Task Force Recommendations. Performed By: #### 4 4014 #### [facility] [address] [place] [address] Pratik Dukes M.D. [id number] Potassium [Moles/Vol] 3.9 mmol/L Normal 3.5-5.1 [facility] Comment on above: Order Comment: [facility] has implemented the eGFR calculation approach that does not have a coefficient for race that conforms to the NKF-ASN Task Force Recommendations. Performed By: #### 4 4014 #### [facility] [address] [place] [address] Pratik Dukes M.D. [id number] Sodium [Moles/Vol] 135 mmol/L Normal 135-145 [facility] Comment on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 [address] [place], [place] [address] Pratik Dukes M.D. [id number] AUTO NRBC ABS COUNT 0.00 K/mcL Normal 0.00-0.00 [facility] Comment on above: Performed By: #### 4 4014 #### [facility] [address] [place] [address] Pratik Dukes M.D. [id number] Erythrocyte distribution width (RBC) [Ratio] 12.1 % Normal 11.6-14.8 [facility] Comment on above: Performed By: #### 4 4014 #### [facility] [address] [place], [place] [address] Pratik Dukes M.D. [id number] Hematocrit (Bld) [Volume fraction] 41.7 % Normal 41.0-53.0 [facility] Comment on above: Performed By: #### 4 4014 #### [facility] [address] [place], [place] [address] Pratik Dukes M.D. [id number] Hemoglobin (Bld) [Mass/Vol] 14.1 g/dL Normal 13.5-17.5 [facility] Comment on above: Performed By: #### 4 4014 #### [facility] [address] [place], [place] [address] Pratik Dukes M.D. [id number] MCH (RBC) [Entitic mass] 33.2 pg Normal 26.0-34.0 [facility] Comment on above: Performed By: #### 4 4014 #### [facility] [address] [place], [place] [address] Pratik Dukes M.D. [id number] MCV (RBC) [Entitic vol] 98.1 fL Normal 80.0-100.0 [facility] [place] Comment on above: Performed By: #### 4 4014 #### [facility] [address] [place], [place] [address] Pratik Dukes M.D. [id number] MEAN CORPUSCULAR HEMOGLOBIN CONC 33.8 g/dL Normal 31.0-37.0 [facility] Comment on above: Performed By: #### 4 4014 #### [facility] [address] [place], [place] [address] Pratik Dukes M.D. [id number] Platelet mean volume (Bld) [Entitic vol] 10.3 fL Normal 9.4-12.4 [facility] Comment on above: Performed By: #### 4 4014 #### [facility] [address] [place], [place] [address] Pratik Dukes M.D. [id number] Platelets (Bld) [#/Vol] 221 10*3/uL Normal 150-400 [facility] Comment on above: Performed By: #### 4 4014 #### [facility] [address] [place], [place] [address] Pratik Dukes M.D. [id number] RBC (Bld) [#/Vol] 4.25 10*6/uL Low 4.50-5.90 [facility] Comment on above: Performed By: #### 4 4014 #### [facility] [address] [place], [place] [address] Pratik Dukes M.D. [id number] WBC (Bld) [#/Vol] 10.68 10*3/uL Normal 4.50-11.00 [facility] Comment on above: Performed By: #### 4 4014 #### [facility] [address] [place], [place] [address] Pratik Dukes M.D. [id number] CBC panel Auto (Bld)on 10-03 Erythrocyte distribution width (RBC) [Entitic vol] 12.1 % 11.6 - 14.8 % [facility] Hematocrit (Bld) [Volume fraction] 41.7 % 41.0 - 53.0 % [facility] Hemoglobin (Bld) [Mass/Vol] 14.1 g/dL 13.5 - 17.5 g/dL [facility] Interpretation and review of laboratory results Abnormal [facility] MCH (RBC) [Entitic mass] 33.2 pg 26.0 - 34.0 pg [facility] MCHC (RBC) [Mass/Vol] 33.8 g/dL 31.0 - 37.0 g/dL [facility] MCV (RBC) [Entitic vol] 98.1 fL 80.0 - 100.0 fL [facility] Nucleated RBC (Bld) [#/Vol] 0 10*3/uL [facility] Nucleated RBC/100 WBC (Bld) [Ratio] 0 % [facility] Platelet mean volume (Bld) [Entitic vol] 10.3 fL 9.4 - 12.4 fL [facility] Platelets (Bld) [#/Vol] 221 10*3/uL [facility] RBC (Bld) [#/Vol] 4.25 10*6/uL Low [facility] ealt WBC (Bld) [#/Vol] 10.68 10*3/uL [facility] DRUGS OF ABUSE SCREEN, URINE on 10-03-2024 AMPHETAMINE SCREEN, URINE Not detected Normal None Detected [facility] Comment on above: Order Comment: Scree n results should be used for treatment purposes only.Specimen will be kept for 2 weeks, if the sample is adequate. Confirmation testing can be initiated by calling the lab within 2 weeks. Result Comment: Urin e Amphetamine Cutoff: < 1000 ng/mL = None Detected Performed By: #### 4 4014 #### [facility] [address] [place] [address] Pratik Dukes M.D. [id number] BARBITURATE SCREEN URINE Positive Abnormal None Detected [facility] Comment on above: Order Comment: Scree n results should be used for treatment purposes only.Specimen will be kept for 2 weeks, if the sample is adequate. Confirmation testing can be initiated by calling the lab within 2 weeks. Result Comment: Urin e Barbiturates Cutoff: < 200 ng/mL = None Detected Performed By: #### 4 4014 #### [facility] [address] [place], [place] [address] Pratik Dukes M.D. [id number] BENZODIAZEPINE SCREEN, URINE Positive Abnormal None Detected [facility] Comment on above: Order Comment: Scree n results should be used for treatment purposes only.Specimen will be kept for 2 weeks, if the sample is adequate. Confirmation testing can be initiated by calling the lab within 2 weeks. Result Comment: Urin e Benzodiazepine Cutoff: < 200 ng/mL = None Detected Performed By: #### 4 4014 #### [facility] [address] [place] [address] Pratik Dukes M.D. [id number] BUPRENORPHINE, URINE Not detected Normal None Detected [facility] Comment on above: Order Comment: Scree n results should be used for treatment purposes only.Specimen will be kept for 2 weeks, if the sample is adequate. Confirmation testing can be initiated by calling the lab within 2 weeks. Result Comment: Urin e Buprenorphine Cutoff: < 5 ng/mL = None Detected Performed By: #### 4 4014 #### [facility] [address] [place], [place] [id number] Pratik Dukes M.D. [id number] CANNABINOID SCREEN URINE Not detected Normal None Detected [facility] Comment on above: Order Comment: Scree n results should be used for treatment purposes only.Specimen will be kept for 2 weeks, if the sample is adequate. Confirmation testing can be initiated by calling the lab within 2 weeks. Result Comment: Urin e Cannabinoids Cutoff: < 50 ng/mL = None Detected Performed By: #### 4 4014 #### [facility] [address] [place], [place] [id number] Pratik Dukes M.D. [id number] COCAINE, SCREEN URINE Not detected Normal None Detected [facility] Comment on above: Order Comment: Scree n results should be used for treatment purposes only.Specimen will be kept for 2 weeks, if the sample is adequate. Confirmation testing can be initiated by calling the lab within 2 weeks. Result Comment: Urin e Cocaine Cutoff: < 300 ng/mL = None Detected Performed By: #### 4 4014 #### [facility] [address] [place], [place] [address] Pratik Dukes M.D. [id number] FENTANYL, URINE Not detected Normal None Detected [facility] Comment on above: Order Comment: Scree n results should be used for treatment purposes only.Specimen will be kept for 2 weeks, if the sample is adequate. Confirmation testing can be initiated by calling the lab within 2 weeks. Result Comment: Urin e Fentanyl Cutoff: < 1 ng/mL = None Detected Performed By: #### 4 4014 #### [facility] [address] [place], [place] [address] Pratik Dukes M.D. [id number] METHADONE SCREEN, URINE Not detected Normal None Detected [facility] Comment on above: Order Comment: Scree n results should be used for treatment purposes only.Specimen will be kept for 2 weeks, if the sample is adequate. Confirmation testing can be initiated by calling the lab within 2 weeks. Result Comment: Urin e Methadone Cutoff: < 300 ng/mL = None Detected Performed By: #### 4 4014 #### [facility] [address] [place], [place] [address] Pratik Dukes M.D. [id number] OPIATE SCREEN URINE Not detected Normal None Detected [facility] Comment on above: Order Comment: Scree n results should be used for treatment purposes only.Specimen will be kept for 2 weeks, if the sample is adequate. Confirmation testing can be initiated by calling the lab within 2 weeks. Result Comment: Urin e Opiates Cutoff: < 300 ng/mL = None Detected Performed By: #### 4 4014 #### [facility] [address] [place], [place] [address] Pratik Dukes M.D. [id number] OXYCODONE SCREEN, URINE Positive Abnormal None Detected [facility] Comment on above: Order Comment: Scree n results should be used for treatment purposes only.Specimen will be kept for 2 weeks, if the sample is adequate. Confirmation testing can be initiated by calling the lab within 2 weeks. Result Comment: Urin e Oxycodone Cutoff: < 100 ng/mL = None Detected Performed By: #### 4 4014 #### [facility] [address] [address] Pratik Dukes M.D. [id number] Drugs of Abuse Screen, Urine Ordered By: Axel Chanel on 10-03-2024 Amphetamines Ql (U) Not detected None Detected [facility] Comment on above: Urine Amphetamine Cu toff: < 1000 ng/mL = None Detected Barbiturates Screen Ql (U) Positive Abnormal None Detected [facility] Comment on above: Urine Barbiturates C utoff: < 200 ng/mL = None Detected Benzodiazepines Ql (U) Positive Abnormal None Detected [facility] Comment on above: Urine Benzodiazepine Cutoff: < 200 ng/mL = None Detected Buprenorphine Ql (U) Not detected None Detected [facility] Comment on above: Urine Buprenorphine Cutoff: < 5 ng/mL = None Detected Cannabinoids Screen Ql (U) Not detected None Detected [facility] Comment on above: Urine Cannabinoids C utoff: < 50 ng/mL = None Detected Cocaine Ql (U) Not detected None Detected [facility] Comment on above: Urine Cocaine Cutoff : < 300 ng/mL = None Detected fentaNYL+Norfentanyl Screen Ql (U) Not detected None Detected [facility] Comment on above: Urine Fentanyl Cutof f: < 1 ng/mL = None Detected Interpretation and review of laboratory results Abnormal [facility] Methadone Screen Ql (U) Not detected None Detected [facility] Comment on above: Urine Methadone Cuto ff: < 300 ng/mL = None Detected Opiates Screen Ql (U) Not detected None Detected [facility] Comment on above: Urine Opiates Cutoff : < 300 ng/mL = None Detected oxyCODONE Ql (U) Positive Abnormal None Detected [facility] Comment on above: Urine Oxycodone Cuto ff: < 100 ng/mL = None Detected Screen results shoul d be used for treatment purposes only. Specimen will be kept for 2 weeks, if the sample is adequate. Confirmation testing can be initiated by calling the lab within 2 weeks. [facility] ABORH VERIFICATIONon 025 ABO and Rh group Nom (Bld) Blood group O Rh(D) positive [facility] Comment on above: Performed By: #### 4 8787 #### [facility] [address] [place] [id number] Naomi Chapman MD [id number] GMCTS ABO and Rh group Nom (Bld) ABO/Rh Verification [facility] Comment on above: Result Comment: Chacorta ent's ABO/Rh is verified. Performed By: #### 4 8787 #### [facility] [address] [place] [id number] Naomi Chapman MD [id number] GMCTS ABORH Verificationon 025 ABO and Rh group Nom (Bld) Blood group O Rh(D) positive [facility] ABO and Rh group Nom (Bld) ABO/Rh Verification [facility] Comment on above: Patient's ABO/Rh is verified. [facility] ALCOHOL, MEDICALon ALCOHOL MEDICAL 35.0 mg/dL High <10.0 [facility] Comment on above: Performed By: #### 4 4014 #### [facility] [address] [place] [address] Pratik Dukes M.D. [id number] Absolute lymphocyte countOrd ered By: Colin Colon on 10-02-2024 Lymphocytes Auto (Unsp spec) [#/Vol] 1.50 10*3/uL 0.83-4.51 [facility] Absolute neutrophil countOrd ered By: Colin Colon on 10-02-2024 Neutrophils (Bld) [#/Vol] 7.9 10*3/uL High 2.0-7.7 [facility] Activated partial thrombopla stin time (aPTT) in platelet poor plasma by coagulation aOrdered By: Colin Colon on 10-02-2024 aPTT Coag (PPP) [Time] 26.0 s 24.1-36.2 [facility] Alcohol, Blood (Medical)-Ser umon 10-02-2024 SERUM ETOH 165.0 mg/dL High <=10.0 [facility] Comment on above: Result Comment: This test is for medical purposes only. The legal definition of intoxication varies according to local law. Performed By: #### L 100.0100, L300.4310, L501.9100, L500.2500, L300.3900 ####[facility] [address] [place], [address] Alcohol, Medicalon Ethanol [Mass/Vol] 35 mg/dL High NINF - 10 .0 mg/dL [facility] Anion gap in Serum or Plasma Ordered By: Colin Colon on 10-02-2024 Anion gap [Moles/Vol] 17 mmol/L High 5-15 [facility] Automated lymphocyte count a s percentage of total leukocytesOrdered By: Colin Colon on 10-02-2024 Lymphocytes/100 WBC Auto (Unsp spec) 14.6 % Low 19-41 [facility] BASIC METABOLIC PANELon 09-12 Anion gap [Moles/Vol] 20 mmol/L Normal 10-20 [facility] Comment on above: Order Comment: [facility] has implemented the eGFR calculation approach that does not have a coefficient for race that conforms to the NKF-ASN Task Force Recommendations. Performed By: #### 4 6124 #### [facility] [address] [id number] Travis Christensen M.D. [id number] Calcium [Mass/Vol] 8.6 mg/dL Normal 8.4-10.2 [facility] Comment on above: Order Comment: [facility] has implemented the eGFR calculation approach that does not have a coefficient for race that conforms to the NKF-ASN Task Force Recommendations. Performed By: #### 4 6124 #### [facility] [address], [place] [address] Travis Christensen M.D. [id number] Chloride [Moles/Vol] 104 mmol/L Normal 98-108 [facility] Comment on above: Order Comment: [facility] has implemented the eGFR calculation approach that does not have a coefficient for race that conforms to the NKF-ASN Task Force Recommendations. Performed By: #### 4 6124 #### [facility] [address], [place] [address] Travis Christensen M.D. [id number] Creatinine [Mass/Vol] 0.56 mg/dL Normal 0.50-1.30 [facility] Comment on above: Order Comment: [facility] has implemented the eGFR calculation approach that does not have a coefficient for race that conforms to the NKF-ASN Task Force Recommendations. Performed By: #### 4 6124 #### [facility] [address] [id number] Travis Christensen M.D. [id number] EGFR 139 mL/min/1.73 m2 Normal >=60 [facility] Comment on above: Order Comment: [facility] has implemented the eGFR calculation approach that does not have a coefficient for race that conforms to the NKF-ASN Task Force Recommendations. Result Comment: Luzma mated GFR was calculated using the 2020 CKD-EPI creatinine equation. Performed By: #### 4 6124 #### [facility] [address] [id number] Travis Christensen M.D. [id number] Glucose [Mass/Vol] 93 mg/dL Normal 65-99 [facility] Comment on above: Order Comment: [facility] has implemented the eGFR calculation approach that does not have a coefficient for race that conforms to the NKF-ASN Task Force Recommendations. Performed By: #### 4 6124 #### [facility] [address] [id number] Travis Christensen M.D. [id number] HCO3 (Bld) [Moles/Vol] 19 mmol/L Low 21-32 [facility] Comment on above: Order Comment: [facility] has implemented the eGFR calculation approach that does not have a coefficient for race that conforms to the NKF-ASN Task Force Recommendations. Performed By: #### 4 6124 #### [facility] [address], [place] [address] Travis Christensen M.D. [id number] Potassium [Moles/Vol] 3.9 mmol/L Normal 3.5-5.1 [facility] Comment on above: Order Comment: [facility] has implemented the eGFR calculation approach that does not have a coefficient for race that conforms to the NKF-ASN Task Force Recommendations. Performed By: #### 4 6124 #### [facility] [address], [place] [address] Travis Christensen M.D. [id number] Sodium [Moles/Vol] 139 mmol/L Normal 135-145 [facility] Comment on above: Order Comment: [facility] has implemented the eGFR calculation approach that does not have a coefficient for race that conforms to the NKF-ASN Task Force Recommendations. Performed By: #### 4 6124 #### [facility] [address], [place] [address] Travis Christensen M.D. [id number] Urea nitrogen [Mass/Vol] 4 mg/dL Low 8-25 [facility] Comment on above: Order Comment: [facility] has implemented the eGFR calculation approach that does not have a coefficient for race that conforms to the NKF-ASN Task Force Recommendations. Performed By: #### 4 6124 #### [facility] [address], [place] [address] Travis Christensen M.D. [id number] Urea nitrogen/Creatinine [Mass ratio] 7.1 mg/mg Low 10.0-20.0 [facility] Comment on above: Order Comment: [facility] has implemented the eGFR calculation approach that does not have a coefficient for race that conforms to the NKF-ASN Task Force Recommendations. Performed By: #### 4 6124 #### [facility] [address], [place] [address] Travis Christensen M.D. [id number] BUN/creatinine ratioOrdered By: Colin Colon on 10-02-2024 Urea nitrogen/Creatinine [Mass ratio] 7.6 mg/mg Low 10-20 [facility] Basic Metabolic Profile (BMP )on 10-02-2024 BUN/CRE 7.6 RATIO Low - [facility] Comment on above: Performed By: #### L 100.0100, L300.4310, L501.9100, L500.2500, L300.3900 ####[facility] [address] [place], [place], [id number] Calcium [Mass/Vol] 8.9 mg/dL Normal 7.6-11.0 [facility] Comment on above: Performed By: #### L 100.0100, L300.4310, L501.9100, L500.2500, L300.3900 ####[facility] [address] [place], [address] Chloride [Moles/Vol] 103 mmol/L Normal 98-108 [facility] Comment on above: Performed By: #### L 100.0100, L300.4310, L501.9100, L500.2500, L300.3900 ####[facility] [address] [place], [address] CO2 [Moles/Vol] 18.7 mmol/L Low 21.0-32.0 [facility] Comment on above: Performed By: #### L 100.0100, L300.4310, L501.9100, L500.2500, L300.3900 ####[facility] [address] [place], [address] Creatinine [Mass/Vol] 0.58 mg/dL Low 0.70-1.20 [facility] Comment on above: Performed By: #### L 100.0100, L300.4310, L501.9100, L500.2500, L300.3900 ####[facility] [address] [place], [address] ECRCL 203.76 ml/min Normal 50-250 [facility] Comment on above: Performed By: #### L 100.0100, L300.4310, L501.9100, L500.2500, L300.3900 ####[facility] [address] [place], [address] GAP 17 High 5-15 [facility] Comment on above: Performed By: #### L 100.0100, L300.4310, L501.9100, L500.2500, L300.3900 ####[facility] [address] [place], [address] GFR/1.73 sq M.predicted among non-blacks MDRD (S/P/Bld) [Vol rate/Area] 137 mL/min/{1.73_m2} Normal >60 [facility] Comment on above: Result Comment: mL/m in/1.73m2 CKD-EPI Creatinine Equation (2020) Performed By: #### L 100.0100, L300.4310, L501.9100, L500.2500, L300.3900 ####[facility] [address] [place], [address] Glucose [Mass/Vol] 108 mg/dL High 70-99 [facility] Comment on above: Performed By: #### L 100.0100, L300.4310, L501.9100, L500.2500, L300.3900 ####[facility] [address] [place], [address] Potassium [Moles/Vol] 4.1 mmol/L Normal 3.3-5.1 [facility] Comment on above: Result Comment: Hemo lysis present, Results??could be affected. ?? Performed By: #### L 100.0100, L300.4310, L501.9100, L500.2500, L300.3900 ####[facility] [address] [place], [address] Sodium [Moles/Vol] 139 mmol/L Normal 133-145 [facility] Comment on above: Performed By: #### L 100.0100, L300.4310, L501.9100, L500.2500, L300.3900 ####[facility] [address] [place], [address] Urea nitrogen [Mass/Vol] 4 mg/dL Normal 4-19 [facility] Comment on above: Performed By: #### L 100.0100, L300.4310, L501.9100, L500.2500, L300.3900 ####[facility] [address] [place], [place], [id number] Basic metabolic 2000 panelOr dered By: Wilber Holt on 10-02-2024 Anion gap [Moles/Vol] 20 mmol/L 10 - 2 0 mmol/L [facility] Calcium [Mass/Vol] 8.6 mg/dL 8.4 - 10. 2 mg/dL [facility] Chloride [Moles/Vol] 104 mmol/L 98 - 10 8 mmol/L [facility] Creatinine [Mass/Vol] 0.56 mg/dL 0.50 - 1.30 mg/dL [facility] GFR/1.73 sq M.predicted CKD-EPI (S/P/Bld) [Vol rate/Area] 139 - PINF [facility] Comment on above: Estimated GFR was ca lculated using the 2020 CKD-EPI creatinine equation. Glucose [Mass/Vol] 93 mg/dL 65 - 99 mg/dL [facility] HCO3 [Moles/Vol] 19 mmol/L Low 21 - 32 mmol/L [facility] Interpretation and review of laboratory results Abnormal [facility] Potassium [Moles/Vol] 3.9 mmol/L 3.5 - 5.1 mmol/L [facility] Sodium [Moles/Vol] 139 mmol/L 135 - 145 mmol/L [facility] Urea nitrogen [Mass/Vol] 4 mg/dL Low 8 - 25 mg/dL [facility] Urea nitrogen/Creatinine [Mass ratio] 7.1 mg/mg Low 10.0 - 20.0 [facility] has implemented the eGFR calculation approach that does not have a coefficient for race that conforms to the NKF-ASN Task Force Recommendations. [facility] Basophil percentageOrdered B y: Colin Colon on 10-02-2024 Basophils/100 WBC (Bld) 0.7 % 0-1 [facility] Blood type and Indirect anti body screen panel (Bld)on 10-02-2024 ABO and Rh group Nom (Bld) Blood group O Rh(D) positive [facility] Blood group antibody screen Ql Negative [facility] Specimen Expires 10/05/2024 23:59 EST [facility] Brain/Head without Contrasto n 10-02-2024 Brain/Head without Contrast [facility] [address] [place] [address] Brain/Head without Contrast MR#: [id number] Acct: [id number] Name: KADE GONZALEZ Rep #: [id number] : 1995 M 28 From: Brianna maxwell MD PCP: Care Physician,No Primary Status: REG ER Study: Brain/Head without Contrast Date of Exam: 09/12 04/07 Exam# [id number] Ordering Dr: Colin Colon DO PROCEDURE: BRAIN/HEAD [...] be considered as clinically warranted. Reading Location: [place] [address] CC: Colin Colon DO; No Primary Care Physician City Collector: Signed Normal [facility] CBCon 10-02-2024 AUTO NRBC 0.0 % Normal [facility] Comment on above: Performed By: #### 4 5033 #### [facility] [address], [place] [address] Travis Christensen M.D. [id number] AUTO NRBC ABS COUNT 0.00 K/mcL Normal 0.00-0.00 [facility] Comment on above: Performed By: #### 4 5033 #### [facility] [address] [address] Travis Christensen M.D. [id number] Erythrocyte distribution width (RBC) [Ratio] 12.1 % Normal 11.6-14.8 [facility] Comment on above: Performed By: #### 4 5033 #### [facility] [address] [address] Travis Christensen M.D. [id number] Hematocrit (Bld) [Volume fraction] 41.1 % Normal 41.0-53.0 [facility] Comment on above: Performed By: #### 4 5033 #### [facility] [address] [address] Travis Christensen M.D. [id number] Hemoglobin (Bld) [Mass/Vol] 14.1 g/dL Normal 13.5-17.5 [facility] Comment on above: Performed By: #### 4 5033 #### [facility] [address] [address] Travis Christensen M.D. [id number] MCH (RBC) [Entitic mass] 33.5 pg Normal 26.0-34.0 [facility] Comment on above: Performed By: #### 4 5033 #### [facility] [address] [address] Travis Christensen M.D. [id number] MCV (RBC) [Entitic vol] 97.6 fL Normal 80.0-100.0 [facility] Comment on above: Performed By: #### 4 5033 #### [facility] [address] [address] Travis Christensen M.D. [id number] MEAN CORPUSCULAR HEMOGLOBIN CONC 34.3 g/dL Normal 31.0-37.0 [facility] Comment on above: Performed By: #### 4 5033 #### [facility] [address] [address] Travis Christensen M.D. [id number] Platelet mean volume (Bld) [Entitic vol] 9.8 fL Normal 9.4-12.4 [facility] Comment on above: Performed By: #### 4 5033 #### [facility] [address], [place] [address] Travis Christensen M.D. [id number] Platelets (Bld) [#/Vol] 239 10*3/uL Normal 150-400 [facility] Comment on above: Performed By: #### 4 5033 #### [facility] [address], [place] [address] Travis Christensen M.D. [id number] RBC (Bld) [#/Vol] 4.21 10*6/uL Low 4.50-5.90 [facility] Comment on above: Performed By: #### 4 5033 #### [facility] [address], [place] [address] Travis Christensen M.D. [id number] WBC (Bld) [#/Vol] 11.46 10*3/uL High 4.50-11.00 [facility] Comment on above: Performed By: #### 4 5033 #### [facility] [address], [place] [address] Travis Christensen M.D. [id number] CBC W/Diff, Automatedon 08-2024 Absolute Lymph 1.50 X10 3/uL Normal 0.83-4.51 [facility] Comment on above: Performed By: #### L 100.0100, L300.4310, L501.9100, L500.2500, L300.3900 #### [facility] [address] [place], [address] Absolute Neut 7.9 X10 3/uL High 2.0-7.7 [facility] Comment on above: Performed By: #### L 100.0100, L300.4310, L501.9100, L500.2500, L300.3900 #### [facility] [address] [place], [address] Basophils/100 WBC (Bld) 0.7 % Normal 0-1 [facility] Comment on above: Performed By: #### L 100.0100, L300.4310, L501.9100, L500.2500, L300.3900 #### [facility] [address] [place], [address] Eosinophils/100 WBC (Bld) 0.5 % Normal 0-5 [facility] Comment on above: Performed By: #### L 100.0100, L300.4310, L501.9100, L500.2500, L300.3900 #### [facility] [address] [facility] [address] Erythrocyte distribution width (RBC) [Ratio] 11.7 % Normal 11.6-14.6 [facility] Comment on above: Performed By: #### L 100.0100, L300.4310, L501.9100, L500.2500, L300.3900 #### [facility] [address] [place], [address] Hematocrit (Bld) [Volume fraction] 42.5 % Normal 40-54 [facility] Comment on above: Performed By: #### L 100.0100, L300.4310, L501.9100, L500.2500, L300.3900 #### [facility] [address] [place], [address] Hemoglobin (Bld) [Mass/Vol] 15.5 g/dL Normal 13.0-16.5 [facility] Comment on above: Performed By: #### L 100.0100, L300.4310, L501.9100, L500.2500, L300.3900 #### [facility] [address] [place], [address] IG% 0.400 Normal 0.0-0.9 [facility] Comment on above: Result Comment: IG% - Immature Granulocytes (promyelocytes, myelocytes and metamyelocytes) > 1% indicates that a LEFT SHIFT is Present. Performed By: #### L 100.0100, L300.4310, L501.9100, L500.2500, L300.3900 #### [facility] [address] [place], [address] Lymphocytes/100 WBC (Bld) 14.6 % Low 19-41 [facility] Comment on above: Performed By: #### L 100.0100, L300.4310,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 Depression [...] Awake, a (more content not included)... Normal [facility] Magnesiumon 10-01-2024 Magnesium [Mass/Vol] 1.8 mg/dL Normal 1.5-2.2 [facility] Comment on above: Performed By: #### L 501.5200, L501.2300 #### [facility] [address] [place], [address] Magnesium measurement (mass/ volume)Ordered By: Jacquie Beckwith on 10-01-2024 Magnesium (Unsp spec) [Mass/Vol] 1.8 mg/dL 1.5-2.2 [facility] Phosphoruson 10-01-2024 Phosphate [Mass/Vol] 4.7 mg/dL High 2.7-4.5 [facility] Comment on above: Performed By: #### L 501.5200, L501.2300 #### [facility] [address] [place], [address] ACETAMINOPHENon 09-30-2024 Acetaminophen [Mass/Vol] ug/mL Low 10.0 - 30.0 [facility] Comment on above: Performed By: #### 2 73991 #### [facility],[address] [place] [address] ALCOHOL-BLOOD MEDICALon 09-12 Ethanol [Mass/Vol] 94 mg/dL High 0 - 50 [facility] Comment on above: Performed By: #### 2 05970 #### [facility],[address] [place] [address] 19329 CBC + DIFFon 09-30-2024 Baso # 0.01 x10EE3/UL Normal 0.00 - 0.10 [facility] Comment on above: Performed By: #### 2 97256 #### [facility],[address] [place] [address] 70519 Basophils/100 WBC (Bld) 0.2 % Normal 0.0 - 2.0 [facility] Comment on above: Performed By: #### 2 93624 #### [facility],[address] [place] [address] 94852 CBC + DIFF Normal [facility] Comment on above: Result Comment: CBC- COMPLETE BLOOD COUNT Performed By: #### 2 24288 #### [facility],[address] [place] [address] 18617 EO # 0.14 x10EE3/UL Normal 0.00 - 0.50 [facility] Comment on above: Performed By: #### 2 75999 #### [facility],[address] [place] [address] 68375 Eosinophils/100 WBC (Bld) 2.3 % Normal 0.0 - 7.0 [facility] Comment on above: Performed By: #### 2 93117 #### [facility],[address] [place] [address] Erythrocyte distribution width (RBC) [Ratio] 12.4 % Normal 12.0 - 15.6 [facility] Comment on above: Performed By: #### 2 60325 #### [facility],[address] [place] [address] Hematocrit (Bld) [Volume fraction] 41.7 % Normal 40.0 - 52.0 [facility] Comment on above: Performed By: #### 2 24388 #### [facility],[address] [place] [address] Hemoglobin (Bld) [Mass/Vol] 14.7 g/dL Normal 13.0 - 17.5 [facility] Comment on above: Performed By: #### 2 02887 #### [facility],[address] [place] [address] Lymph # 2.10 x10EE3/UL Normal 0.80 - 2.80 [facility] Comment on above: Performed By: #### 2 78401 #### [facility],[address] [place] [address] Lymphocytes/100 WBC (Bld) 36.3 % Normal 20.0 - 45.0 [facility] Comment on above: Performed By: #### 2 56432 #### [facility],[address] [place], [place] [phone] MANUAL DIFF N/A Normal [facility] Comment on above: Performed By: #### 2 95994 #### [facility],[address] [place], [place] [address] MCH (RBC) [Entitic mass] 35 pg High 27 - 33 [facility] Comment on above: Performed By: #### 2 35630 #### [facility],[address] [place] [address] MCHC 35 X10 3 Normal 32 - 36 [facility] Comment on above: Performed By: #### 2 03005 #### [facility],[address] [place] [address] 90103 MCV (RBC) [Entitic vol] 99 fL High 81 - 98 [facility] Comment on above: Performed By: #### 2 02088 #### [facility],[address] [place] [address] 49359 Carlton # 0.43 x10EE3/UL Normal 0.20 - 1.00 [facility] Comment on above: Performed By: #### 2 80951 #### [facility],[address] [place] [address] 17257 MONOS % 7.4 % Normal 0.0 - 10.0 [facility] Comment on above: Performed By: #### 2 75139 #### [facility],[address] [place], [place] [phone] Morphology Isacc (Bld) [Interp] N/A Normal [facility] Comment on above: Performed By: #### 2 57802 #### [facility],[address] [place] [address] 39372 Neut # 3.10 x10EE3/UL Normal 1.50 - 7.10 [facility] Comment on above: Performed By: #### 2 85715 #### [facility],[address] [place] [address] 97902 Neutrophils/100 WBC (Bld) 53.7 % Normal 46.0 - 76.0 [facility] Comment on above: Performed By: #### 2 93052 #### [facility],[address] [place] [address] 21171 PLATELET 251 x10EE3/UL Normal 150 - 450 [facility] Comment on above: Performed By: #### 2 72232 #### [facility],[address] [place] [address] 07104 Platelet mean volume (Bld) [Entitic vol] 7.8 fL Normal 6.4 - 10.5 [facility] Comment on above: Result Comment: AUTO MATED DIFFERENTIAL Performed By: #### 2 28187 #### [facility],[address] [place] [address] RBC 4.20 x 10EE6/UL Low 4.50 - 6.00 [facility] Comment on above: Performed By: #### 2 76370 #### [facility],[address] [place] [address] WBC 5.8 x 10EE3/UL Normal 4.5 - 10.8 [facility] Comment on above: Performed By: #### 2 37509 #### [facility],[address] [place] [address] CMP with eGFRon 09-30-2024 AGE 28 years Normal [facility] Comment on above: Performed By: #### 2 48839 #### [facility],[address] [place] [address] Albumin [Mass/Vol] 3.2 g/dL Low 3.4 - 5.0 [facility] Comment on above: Performed By: #### 2 42084 #### [facility],[address] [place] [address] Albumin/Globulin [Mass ratio] 1.0 {ratio} Normal 0.9 - 1.6 [facility] Comment on above: Performed By: #### 2 40370 #### [facility],[address] [place], [place] [phone] ALK PHOS 72 U/L Normal 46 - 116 [facility] Comment on above: Performed By: #### 2 68456 #### [facility],[address] [place] [address] 66828 ALT [Catalytic activity/Vol] 69 U/L High 16 - 63 [facility] Comment on above: Performed By: #### 2 95415 #### [facility],[address] [place] [address] 31916 Anion gap [Moles/Vol] 14 mmol/L Normal 10 - 20 [facility] Comment on above: Performed By: #### 2 66521 #### [facility],[address] [place], [place] [phone] AST [Catalytic activity/Vol] 38 U/L High 15 - 37 [facility] Comment on above: Performed By: #### 2 67912 #### [facility],[address] [place], [place] [phone] B/C RATIO 8 ratio Normal 0 - 30 [facility] Comment on above: Performed By: #### 2 48035 #### [facility],[address] [place], [place] [phone] Bilirubin [Mass/Vol] 0.3 mg/dL Normal 0.2 - 1.0 [facility] Comment on above: Performed By: #### 2 36324 #### [facility],[address] [place], [place] [address] Calcium [Mass/Vol] 8.2 mg/dL Low 8.5 - 10.1 [facility] Comment on above: Performed By: #### 2 31636 #### [facility],[address] [place], [place] [phone] Chloride [Moles/Vol] 106 mmol/L Normal 98 - 107 [facility] Comment on above: Performed By: #### 2 46355 #### [facility],[address] [place] [address] 69553 CMP with eGFR Normal [facility] Comment on above: Result Comment: COMP REHENSIVE METABOLIC PANEL Performed By: #### 2 80524 #### [facility],[address] [place] [address] 08362 CO2 [Moles/Vol] 27.7 mmol/L Normal 21.0 - 32.0 [facility] Comment on above: Performed By: #### 2 44830 #### [facility],[address] [place], [place] [address] Creatinine [Mass/Vol] 0.79 mg/dL Normal 0.70 - 1.30 [facility] Comment on above: Performed By: #### 2 57152 #### [facility],[address] [place], [place] [address] GFR/1.73 sq M.predicted among non-blacks MDRD (S/P/Bld) [Vol rate/Area] mL/min/{1.73_m2} Normal 60 - 999 [facility] Comment on above: Performed By: #### 2 85350 #### [facility],[address] [place] [address] Result Comment: ACCO RDING TO THE NATIONAL KIDNEY DISEASE EDUCATION PROGRAM(NKDE), A NORMAL eGFR IS A VALUE GREATER THAN OR EQUAL TO 60 ML/MIN/1.73 SQ METERS. CHRONIC KIDNEY DISEASE: <60mL/MIN/1.73 SQ METERS KIDNEY FAILURE: <15mL/MIN/1.73 SQ METERS THIS TEST SHOULD ONLY BE USED FOR PATIENTS 18 YEARS OF AGE AND OLDER. Globulin (S) [Mass/Vol] 3.1 g/dL Normal 1.5 - 3.8 [facility] Comment on above: Performed By: #### 2 60694 #### [facility],[address] [place], [place] [phone] Glucose [Mass/Vol] 106 mg/dL Normal 74 - 106 [facility] Comment on above: Performed By: #### 2 48303 #### [facility],[address] [place] [address] 27282 Potassium [Moles/Vol] 3.7 mmol/L Normal 3.5 - 5.1 [facility] Comment on above: Performed By: #### 2 93920 #### [facility],[address] [place], [place] [phone] Protein [Mass/Vol] 6.3 g/dL Low 6.4 - 8.2 [facility] Comment on above: Performed By: #### 2 33228 #### [facility],[address] [place] [address] 63945 Sodium [Moles/Vol] 144 mmol/L Normal 136 - 145 [facility] Comment on above: Performed By: #### 2 04361 #### [facility],[address] [place] [address] 79778 Urea nitrogen [Mass/Vol] 6 mg/dL Low 7 - 18 [facility] Comment on above: Performed By: #### 2 02879 #### [facility],[address] [place] [address] 28392 DRUG SCREEN URINE MEDICon AMPHETAMINES Negative Normal [facility] Comment on above: Performed By: #### 2 34730 ####[facility],[address] [place] [address] 97592 B-DIAZEPINES Positive Normal [facility] Comment on above: Performed By: #### 2 62244 ####[facility],[address] [place] [address] 89647 BARBITURATES Positive Normal [facility] Comment on above: Performed By: #### 2 48233 ####[facility],[address] [place] [address] 17583 COCAINE Negative Normal [facility] Comment on above: Performed By: #### 2 91856 ####[facility],[address] [place] [address] 67255 DRUG SCREEN URINE MEDIC Normal [facility] Comment on above: Result Comment: DRUG SCREEN - URINE Performed By: #### 2 85821 ####[facility],[address] [place] [address] 75307 METHADONE Negative Normal [facility] Comment on above: Performed By: #### 2 86987 ####[facility],[address] [place] [address] 81028 OPIATES Negative Normal [facility] Comment on above: Performed By: #### 2 44816 ####[facility],[address] [place] [address] 50585 PCP Negative Normal [facility] Comment on above: Performed By: #### 2 54724 ####[facility],[address] [place] [address] [place] [address] THC Negative Normal [facility] Comment on above: Result Comment: CHACORTA ENTS RECEIVING PROTON PUMP INHIBITORS MAY DEMONSTRATE FALSE POSITIVE THC/CANNABINOID RESULTS. AN ALTERNATIVE CONFIRMATORY METHOD SHOULD BE CONSIDERED TO VERIFY POSITIVE RESULTS. 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, : 1995, , Medication Administration Record [address] [address] [id number] 09/29/2024 Patient: KADE BARRERA Sex: Male : 1995 Age: 28y MEASUREMENTS: Wt: 78.9 kg, Ht/Pedro: 71.0 in, BMI: 24.27 ALLERGIES: No known drug allergies Medication Ordered Medication Administration Date/Time 1 of 1 Normal [facility] ED NURSES CLINICAL NOTEon ED NURSES CLINICAL NOTE Nurse Narrative - KADE BARRERA, : 1995, , Nurse Clinical Narrative [address] [address] [id number] 09/29/2024 22:27:00 Patient: KADE BARRERA Sex: Male [...] no known surgical history -- 22:43 09/29/24 ALYSHAT Ibis Silva R.N. History 22:27 09/29/24. SOCIAL [...] No risk factors identified. -- 22:49 09/29/24 EDT Ibis Silva R.N. 2 of 4 Nurse Narrative [...] 23:37 09/29/24 EDT Juanita Altman 00:51 09/30/24. Technical Support Specialist at the patient's bedside (crisis). -- 01:16 09/30/24 EDT Sandra Olguin R.N. DISPOSITION / DISCHARGE Departure time: 01:32 09/30/2024. Condition at departure: improved. No learning barriers present. Discharge instructions provided and reviewed with the patient. Reviewe (more content not included)... Normal [facility] ED ORDER SHEET (CPOE ONLY)on 09-30-2024 ED ORDER SHEET (CPOE ONLY) Order Sheet - KADE BARRERA, : 1995, , Order Sheet [address] [address] [id number] 09/29/2024 Patient: KADE BARRERA Sex: Male : 1995 Age: 28y MEASUREMENTS: Wt: 78.9 kg, Ht/Pedro: 71.0 in, BMI: 24.27 ALLERGIES: No known drug allergies MEDICATION/IV/DRIP/FLUI D ORDERS Order Description Priority Entered Acknowledged Completed LAB ORDERS Order Description Priority Entered Acknowledged Collected Completed Drug Screen Urine Stat 22:38 09/29/2024 23:17 09/29/2024 23:18 09/29/2024 Medic Stat Rosa Frausto R.N. Sandra Olguin RVenecia Urinalysis Stat Stat 22:38 09/29/2024 23:17 09/29/2024 23:18 09/29/2024 Rosa Frausto R.N. Alivia King, R.N. CBC w Diff Stat Stat 22:38 09/29/2024 23:17 09/29/2024 23:18 09/29/2024 Rosa Frausto R.N. Alivia King, R.Karen CMP Stat Stat 22:38 09/29/2024 23:17 09/29/2024 23:18 09/29/2024 Rosa Frausto R.N. Alivia King, R.Karen EKG - ED Stat Stat 22:38 09/29/2024 23:17 09/29/2024 23:18 09/29/2024 1 of 2 Order Sheet - POPSIXTOHOWARDKADE, : 1995, , Rosa Frausto R.N. Alivia King, R.N. Acetaminophen Level Stat 22:38 09/29/2024 23:17 09/29/2024 23:18 09/29/2024 Stat Rosa Frausto R.N. Alivia King R.NRowan Salicylate Level Stat Stat 22:38 09/29/2024 23:17 09/29/2024 23:18 09/29/2024 Rosa Frausto R.N. Alivia King, R.NRowan Rapid COVID (SARS) Stat 22:38 09/29/2024 23:17 09/29/2024 23:18 09/29/2024 ANTIGEN TEST Stat Rosa Frausto R.N. Alivia King, R.Karen Blood Alcohol - ETOH Stat 22:38 09/29/2024 23:17 09/29/2024 23:18 09/29/2024 Stat Rosa Frausto R.N. Alivia King R.N. DIAGNOSTIC STUDY ORDERS Order Description Priority Entered Acknowledged Completed STAFF ORDERS Order Description Priority Entered Acknowledged Collected Completed Consult - Crisis 22:38 09/29/2024 23:17 09/29/2024 23:18 09/29/2024 Rachel Bob D.O. Sandra Olguin R.N. Sandra Olguin R.N. [Electronically signed by Rachel Bob D.O. (09/30/2024 02:22 EDT)] 2 of 2 Normal [facility] ED PHYSICIAN CLINICAL REPORT on 09-30-2024 ED PHYSICIAN CLINICAL REPORT Narrative - KADE BARRERA, : 1995, , Physician Clinical [address] [place] [address] [id number] 09/29/2024 22:27:00 Patient: KADE BARRERA Sex: Male [...] fall.). REVIEW OF SYSTEMS 1 of 11 [facility] - KADE BARRERA, : 1995, , THROAT: No sore throat. [...] dry. Normal skin color. 2 of 11 Narrative - KADE BARRERA, : 1995, , Extremities: Extremities exhibit normal [...] EDT CBC-COMPLETE BLOOD COUNT 3 of 11 KADE Gautam, : 1995, , 09/29/2024 23:09 WBC 6.3 [...] - 10.0 Final EDT 4 of 11 [facility] KADE BARRERA, : 1995, , 09/29/2024 23:09 EO % 2.1 % 0.0 - 7.0 Final EDT 09/29/2024 23:09 BASO % 0.3 % 0.0 - 2.0 Final EDT 09/29/2024 23:09 Lymph # 1.71 x10/UL 0.80 - 2.80 Final EDT 09/29/2024 23:09 Neut # 3.94 x10/UL 1.50 - 7.10 Final EDT 09/29/2024 23:09 [place]ton # 0.51 x10/UL 0.20 - 1.00 Fin (more content not included)... Normal [facility] ED SUPER BILLon 09-30-2024 ED SUPER BILL [facility] - KADE BARRERA, : 1995, , [address] [address] [id number] 09/29/2024 Patient: KADE BARRERA Sex: Male : 1995 Age: 28y Item Professional Category Description Facility Code Code Quantity Fee Total Nurse/E/M EMERGENCY 011293 1 $0.00 $0.00 DEPARTMENT VISIT MODERATE SEVERITY (29427-25) Grand Total $0.00 Providers Rachel Bob D.O. Chief Complaint SUICIDAL THOUGHTS. Principal Diagnosis Anxiety reaction. Uncomplicated alcohol intoxication.No alcohol intoxication with delirium or alcohol dependence. 1 of 2 [facility] KADE BARRERA, : 1995, , ICD-10 Codes F41.1: Generalized anxiety disorder F10.120: Alcohol abuse with intoxication, uncomplicated F10.129: Alcohol abuse with intoxication, unspecified 2 of 2 [facility] ED VISIT SUMMARYon ED VISIT SUMMARY Visit Overview - KADE BARRERA, : 1995, , Visit [address] [address] [id number] 09/29/2024 Patient: KADE BARRERA Sex: Male : [...] OR ALCOHOL DEPENDENCE 3 of 3 Normal [facility] ED VITALS FLOW SHEETon 09-30 ED VITALS FLOW SHEET Vitals - KADE GONZALEZ, : 1995, , Vital Sign Flow Sheet [address] [place] [address] [id number] 09/29/2024 Patient: KADE BARRERA Sex: Male : 1995 Age: 28y Measurements Wt: 78.9 kg, Ht/Pedro: 71.0 in, BMI: 24.27 Measured Time BP MAP HR RR O2Sat ETCO2 Temp Pain GCS RTS 22:37 09/29/2024 142/77 99 104 16 95% 98.7 F 0 1 of 1 Normal [facility] SALICYLATEon 09-30-2024 SALICYLATE 3.2 mg/dl Normal 2.8 - 20.0 [facility] Comment on above: Result Comment: *PAT IENTS TREATED WITH SULFASALAZINE MAY GENERATE A FALSE HIGH RESULT FOR SALICYLATE. *PATIENTS TREATED WITH SULFAPYRIDINE MAY GENERATE A FALSE LOW RESULT FOR SALICYLATE. Performed By: #### 2 89960 #### [facility],[address] [place] [address] ACETAMINOPHENon 09-29-2024 Acetaminophen [Mass/Vol] ug/mL Low 10.0 - 30.0 [facility] Comment on above: Performed By: #### 2 20573 #### [facility],[address] [place] [address] 51971 ALCOHOL-BLOOD MEDICALon 09-11 Ethanol [Mass/Vol] 138 mg/dL High 0 - 50 [facility] Comment on above: Performed By: #### 2 66517 ####[facility],[address] [place] [address] CBC + DIFFon 09-29-2024 Baso # 0.02 x10EE3/UL Normal 0.00 - 0.10 [facility] Comment on above: Performed By: #### 2 35695 ####[facility],[address] [place] [address] Basophils/100 WBC (Bld) 0.3 % Normal 0.0 - 2.0 [facility] Comment on above: Performed By: #### 2 32886 ####[facility],[address] [place] [address] CBC + DIFF Normal [facility] Comment on above: Result Comment: CBC- COMPLETE BLOOD COUNT Performed By: #### 2 18501 ####[facility],[address] [place] [address] EO # 0.13 x10EE3/UL Normal 0.00 - 0.50 [facility] Comment on above: Performed By: #### 2 78525 ####[facility],[address] [place], [place] [phone] Eosinophils/100 WBC (Bld) 2.1 % Normal 0.0 - 7.0 [facility] Comment on above: Performed By: #### 2 95053 ####[facility],[address] [place] [address] Erythrocyte distribution width (RBC) [Ratio] 12.0 % Normal 12.0 - 15.6 [facility] Comment on above: Performed By: #### 2 99965 ####[facility],[address] [place] [address] Hematocrit (Bld) [Volume fraction] 42.5 % Normal 40.0 - 52.0 [facility] Comment on above: Performed By: #### 2 55701 ####[facility],[address] [place] [address] 74198 Hemoglobin (Bld) [Mass/Vol] 15.5 g/dL Normal 13.0 - 17.5 [facility] Comment on above: Result Comment: H AN D H REPEATED Performed By: #### 2 66006 ####[facility],[address] [place] [address] 15354 Lymph # 1.71 x10EE3/UL Normal 0.80 - 2.80 [facility] Comment on above: Performed By: #### 2 32150 ####[facility],[address] [place] [address] 03740 Lymphocytes/100 WBC (Bld) 27.1 % Normal 20.0 - 45.0 [facility] Comment on above: Performed By: #### 2 17536 ####[facility] [facility],[address] [place] [address] 08424 MANUAL DIFF N/A Normal [facility] Comment on above: Performed By: #### 2 49482 ####[facility],[address] [place] [address] 31649 MCH (RBC) [Entitic mass] 36 pg High 27 - 33 [facility] Comment on above: Performed By: #### 2 35826 ####[facility],[address] [place] [address] 18924 MCHC 36 X10 3 Normal 32 - 36 [facility] Comment on above: Performed By: #### 2 18636 ####[facility],[address] [place] [address] 56993 MCV (RBC) [Entitic vol] 100 fL High 81 - 98 [facility] Comment on above: Performed By: #### 2 61581 ####[facility],[address] [place] [address] 86857 Carlton # 0.51 x10EE3/UL Normal 0.20 - 1.00 [facility] Comment on above: Performed By: #### 2 91339 ####[facility],[address] [place] [address] 94842 MONOS % 8.1 % Normal 0.0 - 10.0 [facility] Comment on above: Performed By: #### 2 90847 ####[facility],[address] [place] [address] 20389 Morphology Isacc (Bld) [Interp] N/A Normal [facility] Comment on above: Performed By: #### 2 36142 ####[facility],[address] [place] [address] 92965 Neut # 3.94 x10EE3/UL Normal 1.50 - 7.10 [facility] Comment on above: Performed By: #### 2 15252 ####[facility],[address] [place] [address] 07313 Neutrophils/100 WBC (Bld) 62.4 % Normal 46.0 - 76.0 [facility] Comment on above: Performed By: #### 2 02162 ####[facility],[address] [place] [address] 25502 PLATELET 244 x10EE3/UL Normal 150 - 450 [facility] Comment on above: Performed By: #### 2 82332 ####[facility],[address] [place] [address] 63010 Platelet mean volume (Bld) [Entitic vol] 7.6 fL Normal 6.4 - 10.5 [facility] Comment on above: Result Comment: AUTO MATED DIFFERENTIAL Performed By: #### 2 81659 ####[facility],[address] [place] [address] 64988 RBC 4.27 x 10EE6/UL Low 4.50 - 6.00 [facility] Comment on above: Performed By: #### 2 55235 ####[facility],[address] [place] [address] 54244 WBC 6.3 x 10EE3/UL Normal 4.5 - 10.8 [facility] Comment on above: Performed By: #### 2 93712 ####[facility],[address] [place] [address] 82533 CMP with eGFRon 09-29-2024 AGE 28 years Normal [facility] Comment on above: Performed By: #### 2 50005 #### [facility],[address] [place] [address] 19990 Albumin [Mass/Vol] 3.3 g/dL Low 3.4 - 5.0 [facility] Comment on above: Performed By: #### 2 90112 #### [facility],[address] [place] [address] 01824 Albumin/Globulin [Mass ratio] 1.0 {ratio} Normal 0.9 - 1.6 [facility] Comment on above: Performed By: #### 2 65857 #### [facility],[address] [place] [address] 53925 ALK PHOS 75 U/L Normal 46 - 116 [facility] Comment on above: Performed By: #### 2 65176 #### [facility],[address] [place] [address] 58153 ALT [Catalytic activity/Vol] 76 U/L High 16 - 63 [facility] Comment on above: Performed By: #### 2 13453 #### [facility],[address] [place] [address] 88046 Anion gap [Moles/Vol] 11 mmol/L Normal 10 - 20 [facility] Comment on above: Performed By: #### 2 29153 #### [facility],[address] [place] [address] 16679 AST [Catalytic activity/Vol] 49 U/L High 15 - 37 [facility] Comment on above: Performed By: #### 2 17439 #### [facility],[address] [place] [address] 05404 B/C RATIO 6 ratio Normal 0 - 30 [facility] Comment on above: Performed By: #### 2 79334 #### [facility],[address] [place] [address] 58251 Bilirubin [Mass/Vol] 0.4 mg/dL Normal 0.2 - 1.0 [facility] Comment on above: Performed By: #### 2 86873 #### [facility],[address] [place] [address] 76478 Calcium [Mass/Vol] 8.6 mg/dL Normal 8.5 - 10.1 [facility] Comment on above: Performed By: #### 2 00580 #### [facility],[address] [place] [address] 34176 Chloride [Moles/Vol] 105 mmol/L Normal 98 - 107 [facility] Comment on above: Performed By: #### 2 65426 #### [facility],[address] [place] [address] 21133 CMP with eGFR Normal [facility] Comment on above: Result Comment: COMP REHENSIVE METABOLIC PANEL Performed By: #### 2 28957 #### [facility],[address] [place] [address] 89624 CO2 [Moles/Vol] 26.4 mmol/L Normal 21.0 - 32.0 [facility] Comment on above: Performed By: #### 2 45578 #### [facility],[address] [place] [address] 90755 Creatinine [Mass/Vol] 0.64 mg/dL Low 0.70 - 1.30 [facility] Comment on above: Performed By: #### 2 74142 #### [facility],[address] [place] [address] 32294 GFR/1.73 sq M.predicted among non-blacks MDRD (S/P/Bld) [Vol rate/Area] mL/min/{1.73_m2} Normal 60 - 999 [facility] Comment on above: Performed By: #### 2 75559 #### [facility],[address] [place] [address] 14141 Result Comment: ACCO RDING TO THE NATIONAL KIDNEY DISEASE EDUCATION PROGRAM(NKDE), A NORMAL eGFR IS A VALUE GREATER THAN OR EQUAL TO 60 ML/MIN/1.73 SQ METERS. CHRONIC KIDNEY DISEASE: <60mL/MIN/1.73 SQ METERS KIDNEY FAILURE: <15mL/MIN/1.73 SQ METERS THIS TEST SHOULD ONLY BE USED FOR PATIENTS 18 YEARS OF AGE AND OLDER. Globulin (S) [Mass/Vol] 3.4 g/dL Normal 1.5 - 3.8 [facility] Comment on above: Performed By: #### 2 82018 #### [address] [address] Glucose [Mass/Vol] 116 mg/dL High 74 - 106 [facility] Comment on above: Performed By: #### 2 92652 #### [address] [address] Potassium [Moles/Vol] 3.7 mmol/L Normal 3.5 - 5.1 [facility] Comment on above: Performed By: #### 2 72328 #### [address] [address] Protein [Mass/Vol] 6.7 g/dL Normal 6.4 - 8.2 [facility] Comment on above: Performed By: #### 2 26367 #### [address] [address] Sodium [Moles/Vol] 139 mmol/L Normal 136 - 145 [facility] Comment on above: Performed By: #### 2 35502 #### [address] [address] Urea nitrogen [Mass/Vol] 4 mg/dL Low 7 - 18 [facility] Comment on above: Performed By: #### 2 05623 #### [address] [address] DRUG SCREEN URINE MEDICon AMPHETAMINES Negative Normal [facility] Comment on above: Performed By: #### 2 44329 #### [facility],[address] [facility] [address] B-DIAZEPINES Positive Normal [facility] Comment on above: Performed By: #### 2 52361 #### [facility],[address] [facility] [address] BARBITURATES Positive Normal [facility] Comment on above: Performed By: #### 2 27181 #### [facility],[address] [facility] [address] COCAINE Negative [facility] Comment on above: Performed By: #### 2 11263 #### [facility],[address] [facility] [address] DRUG SCREEN URINE MEDIC Normal [facility] Comment on above: Result Comment: DRUG SCREEN - URINE Performed By: #### 2 04669 #### [facility],[address] [facility],[place] [address] METHADONE Negative [facility] Comment on above: Performed By: #### 2 91742 #### [facility],[address] [facility] [address] OPIATES Negative [facility] Comment on above: Performed By: #### 2 97863 #### [facility],[address] [facility] [address] PCP Negative [facility] Comment on above: Performed By: #### 2 54498 #### [facility],[address] [facility] [address] THC Negative [facility] Comment on above: Result Comment: CHACORTA ENTS RECEIVING PROTON PUMP INHIBITORS MAY DEMONSTRATE FALSE POSITIVE THC/CANNABINOID RESULTS. AN ALTERNATIVE CONFIRMATORY METHOD SHOULD BE CONSIDERED TO VERIFY POSITIVE RESULTS. Performed By: #### 2 03345 ####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 ([id number])[facility])[address] [place] [address] [place] Urea nitrogen [Mass/Vol] 5 mg/dL Low 8-21 [facility] Comment on above: Performed By: #### L AB15, [id number], LAB46, LAB62 ####Continuous Wave Operator: DIONNA JIMENEZ ([id number])[facility] ([facility])[address] [place] [address] Basic metabolic 1998 panelon 06-11-2024 Anion gap [Moles/Vol] 8 mmol/L 3 - 13 mmol/L [facility] [employer] Calcium [Mass/Vol] 8.4 mg/dL 8.4 - 10. 2 mg/dL [facility] [employer] Chloride [Moles/Vol] 108 mmol/L High 98 - 10 7 mmol/L [facility] [employer] CO2 [Moles/Vol] 21 mmol/L Low 22 - 29 mmol/L [facility] Creatinine [Mass/Vol] 0.67 mg/dL Low 0.72 - 1.25 mg/dL [facility] [employer] GFR/1.73 sq M.predicted (S/P/Bld) [Vol rate/Area] - PINF [facility] Comment on above: Calculation based on the Chronic Kidney Disease Epidemiology Collaboration (CKD-EPI) equation refit without adjustment for race Glucose [Mass/Vol] 113 mg/dL High 74 - 100 mg/dL [facility] [employer] Potassium [Moles/Vol] 3.5 mmol/L 3.5 - 5.1 mmol/L [facility] [employer] Comment on above: Plasma potassium steph ues may be up to 0.5 mmol/L lower than serum values. Sodium [Moles/Vol] 137 mmol/L 136 - 145 mmol/L [facility] [employer] Urea nitrogen [Mass/Vol] 5 mg/dL Low 8 - 21 mg/dL [facility] [employer] CBC W Auto Differential pane l (Bld)Ordered By: Ludwin Cordova on 06-11-2024 Basophils (Bld) [#/Vol] 0.1 10*3/uL 0.0 - 0.2 10*3/uL [facility] [employer] Basophils/100 WBC (Bld) 1.9 % 0.0 - 2.0 % [facility] [employer] Eosinophils (Bld) [#/Vol] 0.1 10*3/uL 0.0 - 0.5 10*3/uL [employer] Eosinophils/100 WBC (Bld) 2.3 % 0.0 - 6.0 % [facility] [employer] Erythrocyte distribution width (RBC) [Ratio] 12.7 % 11.5 - 15.0 % [facility] [employer] Hematocrit (Bld) [Volume fraction] 41.5 % 40.0 - 52.0 % [facility] Hemoglobin (Bld) [Mass/Vol] 15.4 g/dL 13.0 - 18.0 g/dL [facility] Immature granulocytes (Bld) [#/Vol] 0 10*3/uL NINF - 0.1 10*3/uL [facility] Immature granulocytes/100 WBC (Bld) 0.2 % 0.0 - 2.0 % [facility] Interpretation and review of laboratory results Abnormal [facility] Lymphocytes (Bld) [#/Vol] 1.8 10*3/uL 1.0 - 4.3 10*3/uL [facility] Lymphocytes/100 WBC (Bld) 34.8 % 15.0 - 45.0 % [facility] MCH (RBC) [Entitic mass] 33.7 pg 26.0 - 34.0 pg [facility] MCHC (RBC) [Mass/Vol] 37.1 % High 30.5 - 36.0 % [facility] MCV (RBC) [Entitic vol] 90.8 fL 77.0 - 99.0 fL [facility] Monocytes (Bld) [#/Vol] 0.5 10*3/uL 0.0 - 0.9 10*3/uL [facility] Monocytes/100 WBC (Bld) 9.1 % 5.0 - 13.0 % [facility] Neutrophils (Bld) [#/Vol] 2.7 10*3/uL 1.8 - 7.5 10*3/uL [facility] Neutrophils/100 WBC (Bld) 51.7 % 38.0 - 82.0 % [facility] Nucleated RBC/100 WBC (Bld) [Ratio] 0 % [facility] Platelet mean volume (Bld) [Entitic vol] 9.8 fL 9.0 - 12.7 fL [facility] Platelets (Bld) [#/Vol] 226 10*3/uL 140 - 440 10*3/uL [facility] RBC (Bld) [#/Vol] 4.57 10*6/uL 4.40 - 5.9 0 10*6/uL [facility] WBC (Bld) [#/Vol] 5.2 10*3/uL 3.6 - 10.7 10*3/uL [facility] CBC WITH AUTO DIFFERENTIALon 06-11-2024 Basophils (Bld) [#/Vol] 0.1 10*3/uL Normal 0.0-0.2 [facility] Comment on above: Performed By: #### L [id number] #### Continuous Wave Operator: DIONNA JIMENEZ ([id number]) [facility]) [address] [place] [address] Basophils/100 WBC (Bld) 1.9 % Normal 0.0-2.0 [facility] Comment on above: Performed By: #### L [id number] #### Continuous Wave Operator: DIONNA JIMENEZ ([id number]) [facility] ([facility]) [address] [place] [address] Eosinophils (Bld) [#/Vol] 0.1 10*3/uL Normal 0.0-0.5 [facility] Comment on above: Performed By: #### L [id number] #### Continuous Wave Operator: DIONNA JIMENEZ ([id number]) [facility]) [address] [place] [address] Eosinophils/100 WBC (Bld) 2.3 % Normal 0.0-6.0 [facility] Comment on above: Performed By: #### L [id number] #### Continuous Wave Operator: DIONNA JIMENEZ ([id number]) [facility]) [address] [place] [address] Erythrocyte distribution width (RBC) [Ratio] 12.7 % Normal 11.5-15.0 [facility] Comment on above: Performed By: #### L [id number] #### Continuous Wave Operator: DIONNA JIMENEZ ([id number]) [facility]) [address] [place] [address] Hematocrit (Bld) [Volume fraction] 41.5 % Normal 40.0-52.0 [facility] Comment on above: Performed By: #### L [id number] #### Continuous Wave Operator: DIONNA JIMENEZ ([id number]) [facility]) [address] [place] [address] Hemoglobin (Bld) [Mass/Vol] 15.4 g/dL Normal 13.0-18.0 [facility] Comment on above: Performed By: #### L [id number] #### Continuous Wave Operator: DIONNA JIMENEZ ([id number]) [facility] ([facility]) [address] [place] [address] IMMATURE GRANS % 0.2 % Normal 0.0-2.0 [facility] Comment on above: Performed By: #### L [id number] #### Continuous Wave Operator: DIONNA JIMENEZ ([id number]) [facility]) [address] [place] [address] IMMATURE GRANS ABSOLUTE 0.0 10*3/uL Normal <0.1 [facility] Comment on above: Performed By: #### L [id number] #### Continuous Wave Operator: DIONNA JIMENEZ ([id number]) [facility]) [address] [place] [address] Lymphocytes (Bld) [#/Vol] 1.8 10*3/uL Normal 1.0-4.3 [facility] Comment on above: Performed By: #### L [id number] #### Continuous Wave Operator: DIONNA JIMENEZ ([id number]) [facility] ([facility]) [address] [place] [address] Lymphocytes/100 WBC (Bld) 34.8 % Normal 15.0-45.0 [facility] Comment on above: Performed By: #### L [id number] #### Continuous Wave Operator: DIONNA JIMENEZ ([id number]) [facility]) [address] [place] [address] MCH (RBC) [Entitic mass] 33.7 pg Normal 26.0-34.0 [facility] Comment on above: Performed By: #### L [id number] #### Continuous Wave Operator: DIONNA JIMENEZ ([id number]) [facility]) [address] [place] [address] MCHC 37.1 % High 30.5-36.0 [facility] Comment on above: Performed By: #### L [id number] #### Continuous Wave Operator: DIONNA JIMENEZ ([id number]) [facility] ([facility]) [address] [place] [address] MCV (RBC) [Entitic vol] 90.8 fL Normal 77.0-99.0 [facility] Comment on above: Performed By: #### L [id number] #### Continuous Wave Operator: DIONNA JIMENEZ ([id number]) [facility] ([facility]) [address] [place] [address] Monocytes (Bld) [#/Vol] 0.5 10*3/uL Normal 0.0-0.9 [facility] Comment on above: Performed By: #### L [id number] #### Continuous Wave Operator: DIONNA JIMENEZ ([id number]) [facility] ([facility]) [address] [place] [address] Monocytes/100 WBC (Bld) 9.1 % Normal 5.0-13.0 [facility] Comment on above: Performed By: #### L [id number] #### Continuous Wave Operator: DIONNA JIMENEZ ([id number]) [facility] ([facility]) [address] [place] [address] NEUTROPHILS ABSOLUTE 2.7 10*3/uL Normal 1.8-7.5 [facility] Comment on above: Performed By: #### L [id number] #### Continuous Wave Operator: DIONNA JIMENEZ ([id number]) [facility] ([facility]) [address] [place] [address] Neutrophils/100 WBC (Bld) 51.7 % Normal 38.0-82.0 [facility] Comment on above: Performed By: #### L [id number] #### Continuous Wave Operator: DIONNA JIMENEZ ([id number]) [facility] ([facility]) [address] [place] [address] NRBC 0.0 /100 WBCs Normal 0.0-2.0 [facility] Comment on above: Performed By: #### L [id number] #### Continuous Wave Operator: DIONNA JIMENEZ ([id number]) [facility] ([facility]) [address] [place] [address] Platelet mean volume (Bld) [Entitic vol] 9.8 fL Normal 9.0-12.7 [facility] Comment on above: Performed By: #### L [id number] #### Continuous Wave Operator: DIONNA JIMENEZ ([id number]) [facility] ([facility]) [address] [place] [address] Platelets (Bld) [#/Vol] 226 10*3/uL Normal 140-440 [facility] Comment on above: Performed By: #### L [id number] #### Continuous Wave Operator: DIONNA JIMENEZ ([id number]) [facility] ([facility]) [address] [place] [address] RBC (Bld) [#/Vol] 4.57 10*6/uL Normal 4.40-5.90 [facility] Comment on above: Performed By: #### L [id number] #### Continuous Wave Operator: DIONNA JIMENEZ ([id number]) [facility] ([facility]) [address] [place] [address] WBC (Bld) [#/Vol] 5.2 10*3/uL Normal 3.6-10.7 [facility] Comment on above: Performed By: #### L [id number] #### Continuous Wave Operator: DIONNA JIMENEZ ([id number]) [facility] ([facility]) [address] [place] [address] CKon 06-11-2024 CK [Catalytic activity/Vol] 247 U/L High 30-185 [facility] Comment on above: Performed By: #### L AB15, [id number], [id number], LAB62 ####Continuous Wave Operator: DIONNA JIMENEZ ([id number])[facility] ([facility])[address] [place] [address] DRUGS OF ABUSEon 06-11-2024 AMPHETAMINE SCREEN Positive Normal [facility] Comment on above: Performed By: #### L [id number] ####Continuous Wave Operator: DIONNA JIMENEZ ([id number])[facility])[address] [place] [address] BARBITURATES SCREEN Positive Normal [facility] Comment on above: Performed By: #### L [id number] ####Continuous Wave Operator: DIONNA JIMENEZ ([id number])[facility] ([facility])[address] [place] [address] BENZODIAZEPINE SCREEN Negative Normal [facility] Comment on above: Performed By: #### L [id number] ####Continuous Wave Operator: DIONNA JIMENEZ ([id number])[facility] [place] [address] COCAINE METAB. SCREEN Negative Normal [facility] Comment on above: Performed By: #### L [id number] ####Continuous Wave Operator: DIONNA JIMENEZ ([id number])[facility] ([facility])[address] [place] [address] FENTANYL SCREEN, UR QUAL Negative Normal [facility] Comment on above: Result Comment: MARTA [...] under separate order. Performed By: #### L [id number] ####Continuous Wave Operator: DIONNA JIMENEZ ([id number])[facility] [place] [address] METHADONE SCREEN Negative Normal [facility] Comment on above: Performed By: #### L [id number] ####Continuous Wave Operator: DIONNA JIMENEZ ([id number])[facility] [place] [address] OPIATES SCREEN Negative Normal [facility] Comment on above: Performed By: #### L [id number] ####Continuous Wave Operator: DIONNA JIMENEZ ([id number])[facility] ([facility])[address] [place] [address] OXYCODONE SCREEN Negative Normal [facility] Comment on above: Performed By: #### L [id number] ####Continuous Wave Operator: DIONNA JIMENEZ ([id number])[facility] ([facility])[address] [place] [address] PHENCYCLIDINE SCREEN Negative Normal [facility] Comment on above: Performed By: #### L [id number] ####Continuous Wave Operator: DIONNA JIMENEZ ([id number])[facility] ([facility])[address] [place] [address] ECG 12-LEADon 06-11-2024 ECG 12-LEAD IMPRESSION: Pacemaker spikes or artifacts Sinus rhythm Electronically Signed On 06-11-2024 10:13:28 EDT by Mike Wright [facility] ED Nursing Noteon 06-11-2024 ED Nursing Note Report given to Larry broderick RN. [facility] ED Nursing Note Pt ambulated independently back and forth to the restroom. 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 Pt currently on shelter monitor; sts that the pain starts in the L shoulder and radiates into the neck and then jaw. [facility] ED Nursing Note Pt heading to xray w [facility] transport. [facility] ED Provider Noteon ED Provider Note EMERGENCY DEPARTMENT ENCOUNTER Pt Name: Kade Barrera Birthdate 1995 Date of evaluation: 06/11/2024 ED Provider: Easton Dahl, HERB COUNSELOR - VENDOR RELATIONSHIP MANAGER Patient seen independently within my scope of [...] Response: Oriented Best Motor Response: Follows commands Clymer Coma Scale Score: 15 HEART Score History: [...] [facility] Comment on above: Result Comment: MARTA Brothers COMMENTS: FURNACE COMBUSTION TESTER depression is seen >100 mg/dL. NOTE: This result is for medical treatment only. Analysis performed using non-forensic procedures. Performed By: #### L AB15, [id number], LAB46, LAB62 ####Continuous Wave Operator: DIONNA JIMENEZ ([id number])[facility] ([facility])[address] [place] [address] Ethanol (Bld) [Mass/Vol]on 0 06-11-2024 Ethanol [Mass/Vol] mg/dL NINF - 10 mg/dL [facility] Interpretation and review of laboratory results [facility] FURNACE COMBUSTION TESTER depression is se en >100 mg/dL. NOTE: This result is for medical treatment only. Analysis performed using non-forensic procedures. [facility] HIGH SENSITIVITY TROPONIN, S ERIAL BASELINEon 06-11-2024 TROPONIN HS SERIAL BASELINE <3 Normal <=35 [facility] Comment on above: Result Comment: In i ndividuals presenting with symptoms > 2h, a baseline troponin <= 5 ng/L suggests acute cardiac injury is unlikely and further serial testing is generally not indicated. Performed By: #### L AB15, [id number], LAB46, LAB62 ####Continuous Wave Operator: DIONNA JIMENEZ ([id number])[facility] [place] [address] Laboratory - Chemistry and C hemistry - challengeon 06-11-2024 CK [Catalytic activity/Vol] 247 U/L High 30 - 185 U/L [facility] - Drug toxicology on 06-11-2024 Amphetamines Screen method >1000 ng/mL Ql (U) Positive [facility] Barbiturates Screen method >200 ng/mL Ql (U) Positive [facility] Benzodiazepines Ql (U) Negative [facility] Methadone Screen Ql (U) Negative [facility] Opiates Screen Ql (U) Negative [facility] oxyCODONE Ql (U) Negative [facility] Phencyclidine Ql (U) Negative [facility] No Panel InformationOrdered By: Mike Wright on 06-11-2024 P Winder 67 degrees [facility] [employer] Work Phone: NC Interval 139 ms [facility] [employer] Work Phone: QRS Winder 80 degrees [facility] [employer] Work Phone: [phone] QRSD Interval 95 ms [facility] [employer] Work Phone: QT Interval 334 ms [facility] [employer] Work Phone: QTC Interval 418 ms [facility] [employer] Work Phone: T Wave Winder 52 degrees [employer] Work Phone: [employer] Work Phone: No Panel Informationon 06-11 Pacemaker spikes or artifacts Sinus rhythm Electronically Signed On 06-11-2024 10:13:28 EDT by Mike Wright CV Mike Angela MD - 06/11/2024 IMPRESSION: Pacemaker spikes or artifacts Sinus rhythm Electronically Signed On 06-11-2024 10:13:28 EDT by Mike Wright [facility] [employer] Interpretation and review of laboratory results Normal [facility] Troponin HS Serial Baseline ng/L NINF - 35 ng/L [facility] Comment on above: In individuals prese nting with symptoms > 2h, a baseline troponin <= 5 ng/L suggests acute cardiac injury is unlikely and further serial testing is generally not indicated. [facility] Interpretation and review of laboratory results Abnormal [facility] [employer] COCAINE METAB. SCREEN Negative [facility] [employer] FENTANYL SCREEN, UR QUAL Negative [facility] [employer] The expected value f or all of [...] is needed, request confirmation under separate order. [facility] [employer] Vital signsOrdered By: Mike Wright on 06-11-2024 Heart rate 94 /min bpm [employer] Work Phone: XR Chest 2 Viewson 5 1. No evidence of an acute cardiopulmonary process. Report Dictated on Electronically Signed By: Jovanni Garcia MD Electronically Signed Date/Time: 06/11/2024 5:00 AM EDT [facility] Patient Name: KADE BARRERA : [...] bones and soft tissues are grossly unremarkable. [facility] Jovanni Garcia MD - 06/11/2024 Patient [...] Electronically Signed Date/Time: 06/11/2024 5:00 AM EDT [facility] Radiology Study observation (narrative) [facility] XR Chest 2 ViewsOrdered By: Jovanni Garcia on 06-11-2024 [facility] Work Phone: ED Nursing Noteon 06-10-2024 [...] Interpretation and review of laboratory results Normal [facility] SARS-CoV-2 (COVID-19) RNA DOMINIC+non-probe Ql (Nph) Negative Negative [facility] POC RAPID INFLUENZA DNA/ RNAon 01-28-2024 Inflenza A Ag Positive [facility] Influenza B Ag Negative [facility] Interpretation and review of laboratory results Abnormal [facility] Office Visiton 01-28-2024 Follow-up visit [id number] Kade Barrera 1995 M Date Provider Department Center 01/28/2024 [id number] RETANA [facility] None No family history on file Level of Service:92641 [place] OFFICE/OUTPATIENT ESTABLISHED LOW MDM 20 MIN Reason for Visit and Comments: URI [115] - Cough /Body ache/ migraine/stuffy nose /pt stated that he started new medication yesterday and that when he started feeling sick. Normal [facility] Progress Noteon 01-28-2024 Progress [facility] [address] Dept: [phone] Dept Loc: [phone] Subjective Kade Barrera is a 28 y.o. [...] as words (more content not included)... Normal [facility] .Auto Diffon 06-20-2023 Basophil, Absolute 0.1 10 3/mcL Normal 0.0-0.2 [facility] ([place]) Comment on above: Performed By: #### A RIVERA IBARRA, CBC, ALC, ADIFF, CMP, GFR #### [address] [address] Basophils/100 WBC (Bld) 1.0 % Normal 0.0-2.5 [facility] ([place]) Comment on above: Performed By: #### A RIVERA IBARRA, CBC, ALC, ADIFF, CMP, GFR #### [address] [place], [place] [address] Eosinophil, Absolute 0.0 10 3/mcL Normal 0.0-0.4 [facility] ([place]) Comment on above: Performed By: #### A RIVERA IBARRA, CBC, ALC, ADIFF, CMP, GFR #### [address] [address] Eosinophils/100 WBC (Bld) 0.5 % Normal 0.0-7.0 [facility] ([place]) Comment on above: Performed By: #### A MD STACEYW, CBC, ALC, ADIFF, CMP, GFR #### [address] [address] Lymphocyte, Absolute 2.4 10 3/mcL Normal 0.8-3.9 [facility] ([place]) Comment on above: Performed By: #### A RIVERA IBARRA, CBC, ALC, ADIFF, CMP, GFR #### [address] [address] Lymphocytes/100 WBC (Bld) 29.4 % Normal 10.0-50.0 [facility] ([place]) Comment on above: Performed By: #### A RIVERA IBARRA, CBC, ALC, ADIFF, CMP, GFR #### [address] [address] Monocyte, Absolute 0.6 10 3/mcL Normal 0.2-1.0 [facility] ([place]) Comment on above: Performed By: #### A RIVERA IBARRA, CBC, ALC, ADIFF, CMP, GFR #### [address] [address] Monocytes/100 WBC (Bld) 7.6 % Normal 1.7-13.0 [facility] ([place]) Comment on above: Performed By: #### A RIVERA IBARRA, CBC, ALC, ADIFF, CMP, GFR #### [address] [address] Neutrophils/100 WBC (Bld) 61.5 % Normal 37.0-80.0 [facility] ([place]) Comment on above: Performed By: #### A RIVERA IBARRA, CBC, ALC, ADIFF, CMP, GFR #### [address] [address] [place], [place] [address] .GFRon 06-20-2023 GFR 96 ml/min/1.73sqm Normal [facility] ([place]) Comment on above: Result Comment: GFR Population [...] RIVERA IBARRA, CBC, ALC, ADIFF, CMP, GFR ####[address] [place], [place] [address] GFR Non- 79 ml/min/1.73sqm Normal [facility] ([place]) Comment on above: Result Comment: GFR Population [...] RIVERA IBARRA, CBC, ALC, ADIFF, CMP, GFR ####[id number] [place], [place] [address] .MDWon 06-20-2023 Monocyte Distribution Width 18.60 Normal 0.00-20.00 [facility] ([place]) Comment on above: Result Comment: For ED adult patients suspected of sepsis, MDW<=20.0 does not rule out sepsis or risk of sepsis Performed By: #### A RIVERA IBARRA, CBC, ALC, ADIFF, CMP, GFR #### [place] [address] .NEUABSon 06-20-2023 Neutrophil, Absolute 5.0 10 3/mcL Normal 2.9-6.2 [facility] ([place]) Comment on above: Performed By: #### A RIVERA IBARRA, CBC, ALC, ADIFF, CMP, GFR #### [place] [address] Rob 06-20-2023 Ethanol Level <3 Normal 0-3 [facility] ([place]) Comment on above: Performed By: #### A RIVERA IBARRA, CBC, ALC, ADIFF, CMP, GFR #### [place] [address] Keiko 06-20-2023 Ammonia (P) [Moles/Vol] 15 umol/L Normal 11-32 A [facility] ([place]) Comment on above: Performed By: #### P HOS, PRO, AMM ####[place] [address] CBCon 06-20-2023 Erythrocyte distribution width (RBC) [Ratio] 12.6 % Normal 11.5-14.5 [facility] ([place]) Comment on above: Performed By: #### A RIVERA IBARRA, CBC, ALC, ADIFF, CMP, GFR #### [place] [address] Hematocrit (Bld) [Volume fraction] 40.3 % Low 42.0-52.0 [facility] ([place]) Comment on above: Performed By: #### A RIVERA IBARRA, CBC, ALC, ADIFF, CMP, GFR #### [place] [address] Hgb 14.5 G/dL Normal 14.0-18.0 [facility] ([place]) Comment on above: Performed By: #### A RIVERA IBARRA, CBC, ALC, ADIFF, CMP, GFR #### [address] [address] MCH (RBC) [Entitic mass] 33.9 pg High 27.0-31.2 [facility] ([place]) Comment on above: Performed By: #### A RIVERA IBARRA, CBC, ALC, ADIFF, CMP, GFR #### [address] [address] MCHC 35.9 G/dL High 31.8-35.4 [facility] ([place]) Comment on above: Performed By: #### A RIVERA IBARRA, CBC, ALC, ADIFF, CMP, GFR #### [address] [address] MCV (RBC) [Entitic vol] 94.3 fL High 80.0-94.0 A [facility] ([place]) Comment on above: Performed By: #### A RIVERA IBARRA, CBC, ALC, ADIFF, CMP, GFR #### [address] [address] Platelet 230 10 3/mcL Normal 130-400 [facility] ([place]) Comment on above: Performed By: #### A RIVERA IBARRA, CBC, ALC, ADIFF, CMP, GFR #### [address] [address] Platelet mean volume (Bld) [Entitic vol] 7.5 fL Normal 7.4-10.4 [facility] ([place]) Comment on above: Performed By: #### A RIVERA IBARRA, CBC, ALC, ADIFF, CMP, GFR #### [address] [address] RBC 4.27 10 6/mcL Normal 4.04-6.13 [facility] ([place]) Comment on above: Performed By: #### A RIVERA IBARRA, CBC, ALC, ADIFF, CMP, GFR #### [address] [address] WBC 8.1 10 3/mcL Normal 4.6-10.8 [facility] ([place]) Comment on above: Performed By: #### A RIVERA IBARRA, CBC, ALC, ADIFF, CMP, GFR #### [address] [address] CMPon 06-20-2023 Albumin Level 3.8 G/dL Normal 3.5-5.0 [facility] ([place]) Comment on above: Performed By: #### A RIVERA IBARRA, CBC, ALC, ADIFF, CMP, GFR #### [address] [address] Albumin/Globulin [Mass ratio] 1.3 {ratio} Normal 1.1-2.5 [facility] ([place]) Comment on above: Performed By: #### A RIVERA IBARRA, CBC, ALC, ADIFF, CMP, GFR #### [address] [address] ALP [Catalytic activity/Vol] 77 U/L Normal 40-135 [facility] ([place]) Comment on above: Performed By: #### A RIVERA IBARRA, CBC, ALC, ADIFF, CMP, GFR #### [address] [address] ALT [Catalytic activity/Vol] 28 U/L Normal 16-63 [facility] ([place]) Comment on above: Performed By: #### A RIVERA IBARRA, CBC, ALC, ADIFF, CMP, GFR #### [address] [address] AST [Catalytic activity/Vol] 17 U/L Normal 10-40 [facility] ([place]) Comment on above: Performed By: #### A RIVERA IBARRA, CBC, ALC, ADIFF, CMP, GFR #### [address] [address] Bili Total 0.3 mg/dL Normal 0.2-1.0 [facility] ([place]) Comment on above: Result Comment: Use of this assay is not recommended for patients undergoing treatment with eltrombopag due to the potential for falsely elevated results. Performed By: #### A RIVERA IBARRA, CBC, ALC, ADIFF, CMP, GFR #### [address] [address] BUN/Creatinine Ratio 8 ratio Normal 7-27 [facility] ([place]) Comment on above: Performed By: #### A RIVERA IBARRA, CBC, ALC, ADIFF, CMP, GFR #### [address] [address] Calcium [Mass/Vol] 8.6 mg/dL Normal 8.4-10.2 [facility] ([place]) Comment on above: Performed By: #### A RIVERA IBARRA, CBC, ALC, ADIFF, CMP, GFR #### [address] [address] Chloride [Moles/Vol] 105 mmol/L Normal 98-107 [facility] ([place]) Comment on above: Performed By: #### A RIVERA IBARRA, CBC, ALC, ADIFF, CMP, GFR #### [place] [address] CO2 [Moles/Vol] 24 mmol/L Normal 22-29 [facility] ([place]) Comment on above: Performed By: #### A RIVERA IBARRA, CBC, ALC, ADIFF, CMP, GFR #### [place] [address] Creatinine [Mass/Vol] 1.12 mg/dL Normal 0.70-1.30 [facility] ([place]) Comment on above: Performed By: #### A RIVERA IBARRA, CBC, ALC, ADIFF, CMP, GFR #### [address] [address] Electrolyte Balance 14.0 mEq/L Normal 4.0-15.0 [facility] ([place]) Comment on above: Performed By: #### A RIVERA IBARRA, CBC, ALC, ADIFF, CMP, GFR #### [address] [address] Globulin 2.9 G/dL Normal [facility] ([place]) Comment on above: Performed By: #### A RIVERA IBARRA, CBC, ALC, ADIFF, CMP, GFR #### [address] [address] Glucose [Mass/Vol] 99 mg/dL Normal 70-105 [facility] ([place]) Comment on above: Performed By: #### A RIVERA IBARRA, CBC, ALC, ADIFF, CMP, GFR #### [address] [address] Potassium [Moles/Vol] 4.1 mmol/L Normal 3.5-5.1 [facility] ([place]) Comment on above: Performed By: #### A RIVERA IBARRA, CBC, ALC, ADIFF, CMP, GFR #### [address] [address] Sodium [Moles/Vol] 143 mmol/L Normal 136-145 [facility] ([place]) Comment on above: Performed By: #### A RIVERA IBARRA, CBC, ALC, ADIFF, CMP, GFR #### [address] [address] Total Protein 6.7 G/dL Normal 6.4-8.2 [facility] ([place]) Comment on above: Performed By: #### A RIVERA IBARRA, CBC, ALC, ADIFF, CMP, GFR #### [address] [address] Urea nitrogen [Mass/Vol] 9 mg/dL Normal 7-18 [facility]) Comment on above: Performed By: #### A RIVERA IBARRA, CBC, ALC, ADIFF, CMP, GFR #### [address] [address] [address] HEAD OR BRAIN W/O CONTRAS Ton [...] Sign Date: 06/20/2023 3:18:15 AM Ordering Provider: [facility]) CT SPINE CERVICAL W/O ELLEN Francisco 06-20-2023 [...] 06/20/2023 3:20:14 AM Ordering Provider: MICHAEL Robertson [facility] ([place]) LABORATORYOrdered By: SYSTEM SYSTEM on 06-20-2023 Ammonia [...] Comment on above: Interpretive Data: Hernandez gl[employer] (CHEST, 1992, 102:312S-25S) [...] 06-20-2023 Magnesium [Mass/Vol] 2.1 mg/dL Normal 1.8-2.4 [facility] ([place]) Comment on above: Performed By: #### M G ####[address], [place] [address] Magnesium [Mass/Vol] 1.7 mg/dL Low 1.8-2.4 [facility] ([place]) Comment on above: Performed By: #### M G ####[id number], [place] [address] MRI BRAIN W/O CONTRASTon MRI BRAIN W/O [...] 4:13:50 PM Ordering Provider: ANA MARIA PEREZ [facility] ([place]) Reece 06-20-2023 Phosphate [Mass/Vol] 2.9 mg/dL Normal 2.7-4.5 [facility] ([place]) Comment on above: Performed By: #### P HOS, PRO, AMM ####[address], [place] [address] PROon 06-20-2023 PT Coag (PPP) [Time] 9.8 s Normal 9.0-14.4 [facility]) Comment on above: Performed By: #### P HOS, PRO, AMM ####[address], [place] [address] PT International Ratio 0.8 Normal [facility] ([place]) Comment on above: Result Comment: [employer] (CHEST, 1992, 102:312S-25S) recommended therapeutic range for oral anticoagulant therapy is: LOW RISK: Prophylaxis of venous thrombosis INR: 2.0-3.0 Treatment of pulmonary embolism 2.0-3.0 Prevention of systemic embolism 2.0-3.0 HIGH RISK: Mechanical prosthetic valves 2.5-3.5 Performed By: #### P HOS, PRO, AMM ####[address], [place] [address] UDRUGon 06-20-2023 Amphetamine (u) Negative Normal Negative [facility] ([place]) Comment on above: Performed By: #### U DRUG #### [id number] [place], [place] [address] Barbiturate (u) Negative Normal Negative [facility] ([place]) Comment on above: Performed By: #### U DRUG #### [address] [address] [place], [place] [address] Benzodiazepine (u) Negative Normal Negative [facility] ([place]) Comment on above: Performed By: #### U DRUG #### [address] [address] Cannabinoid (u) Negative Normal Negative [facility] ([place]) Comment on above: Performed By: #### U DRUG #### [address] [address] Cocaine Ql (U) Negative Normal Negative [facility] ([place]) Comment on above: Performed By: #### U DRUG #### [address] [address] Methadone Ql (U) Negative Normal Negative [facility] ([place] Comment on above: Performed By: #### U DRUG #### [address] [address] Opiate (u) Negative Normal Negative [facility] ([place] Comment on above: Performed By: #### U DRUG #### [address] [address] PCP (u) Negative Normal Negative [facility] ([place] Comment on above: Performed By: #### U DRUG #### [address] [address] Urine Drugs screened: See Below Normal [facility] ([place]) Comment on above: Result Comment: This drug [...] ONLY. Performed By: #### U DRUG #### [address] [address] XR CHEST 1 VIEWon 06-20-2023 XR CHEST [...] 06/20/2023 3:12:39 AM Ordering Provider: MICHAEL PADRON [facility] ([place]) Absolute lymphocyte countOrd ered By: Carmelo Mccray on 06-19-2023 Lymphocytes Auto (Unsp spec) [#/Vol] 2.47 10*3/uL 0.83-4.51 [facility] Automated lymphocyte count a s percentage of total leukocytesOrdered By: Carmelo Mccray on 06-19-2023 Lymphocytes/100 WBC Auto (Unsp spec) 28.9 % 19-41 [facility] Basophil percentageOrdered B y: Carmelo Mccray on 06-19-2023 Basophils/100 WBC (Bld) 0.9 % 0-1 [facility] [place] Chloride [Moles/Vol] 108 mmol/L 98-107 [facility] Eosinophils/100 WBC (Bld) 0.6 % 0-5 [facility] Glucose [Mass/Vol] 84 mg/dL 74-106 [facility] Hemoglobin (Bld) [Mass/Vol] 14.8 g/dL 13.0-16.5 [facility] Monocytes/100 WBC (Bld) 8.4 % 0-10 [facility] [place] Neutrophils (Bld) [#/Vol] 5.2 10*3/uL 2.0-7.7 [facility] Neutrophils/100 WBC (Bld) 60.8 % 47-70 [facility] Potassium [Moles/Vol] 3.7 mmol/L 3.5-5.1 [facility] Sodium [Moles/Vol] 140 mmol/L 136-145 [facility] WBC (Bld) [#/Vol] 8.6 10*3/uL 4.4-11.0 [facility] Determination of erythrocyte mean corpuscular volume (MCV)Ordered By: Carmelo Mccray on 06-19-2023 MCV (RBC) [Entitic vol] 95.8 fL 80-94 [facility] Erythrocyte distribution wid th ratioOrdered By: Carmelo Mccray on 06-19-2023 Erythrocyte distribution width (RBC) [Ratio] 12.0 % 11.6-14.6 [facility] Erythrocyte distribution wid th standard deviationOrdered By: Carmelo Mccray on 06-19-2023 Erythrocyte distribution width (RBC) [Entitic vol] 41.5 fL 35.1-43.9 [facility] Hematocrit Auto (Bld) [Volum e fraction]Ordered By: Carmelo Mccray on 06-19-2023 Hematocrit (Bld) [Volume fraction] 42.9 % 40-54 [facility] Immature granulocytes/100 WB C Auto (Bld)Ordered By: [place]arck Mccray on 06-19-2023 Immature granulocytes/100 WBC (Bld) 0.400 % 0.0-0.9 [facility] Comment on above: IG% - Immature Granu locytes (promyelocytes, myelocytes and metamyelocytes) > 1% indicates that a LEFT SHIFT is Present. Laboratory - Chemistry and C hemistry - challengeOrdered By: Carmelo Mccray on 06-19-2023 CO2 [Moles/Vol] 27.0 mmol/L 21.0-32.0 [facility] Urea nitrogen/Creatinine [Mass ratio] 10.0 mg/mg 10-20 [facility] Laboratory - Hematology and Cell countsOrdered By: Carmelo Mccray on 06-19-2023 MCH (RBC) [Entitic mass] 33.0 pg 27.0-32.0 [facility] MCHC (RBC) [Mass/Vol] 34.5 g/dL 32-36 [facility] Nucleated RBC/100 WBC (Bld) [Ratio] 0 % 0-5 [facility] Platelet mean volume (Bld) [Entitic vol] 9.6 fL 6.2-12.0 [facility] Platelets (Bld) [#/Vol] 263 10*3/uL 150-450 [facility] Laboratory - Microbiology an d Antimicrobial susceptibilityOrdered By: Carmelo Mccray on 06-19-2023 SARS-CoV-2 (COVID-19) RNA DOMINIC+probe Ql (Unsp spec) [facility] No Panel InformationOrdered By: Carmelo Mccray on 06-19-2023 Estimated Creatinine Clearance Calc 145.96 ml/min [facility] Estimated GFR (MDRD) Amer 131 mL/min >60 [facility] Comment on above: GFR Calc Estimated GFR (MDRD) Non-Af Amer 108 mL/min >60 [facility] Comment on above: Non- GFR Calc Troponin I High Sensitivity 10 pg/mL 3.0-78.0 [facility] Comment on above: Please Note: New Rhea t Units and Gender Specific Reference Ranges. For more information see Policy Stat Procedure [place] High Sensitivity Troponin (TNIH) and attachments. RBC Auto (Bld) [#/Vol]Ordere d By: Carmelo Mccray on 06-19-2023 RBC (Bld) [#/Vol] 4.48 10*6/uL 4.6-6.2 [facility] Serum or plasma calcium gaetano urement (mass/volume)Ordered By: Carmelo Mccray on 06-19-2023 Calcium [Mass/Vol] 8.9 mg/dL 8.5-10.1 [facility] Serum or plasma creatinine m easurement (mass/volume)Ordered By: Carmelo Mccray on 06-19-2023 Creatinine [Mass/Vol] 0.90 mg/dL 0.70-1.30 [facility] Comment on above: The validity of the calculated GFR & GFRAA in patients over 70 years has not been determined. Clinical correlation is essential. Serum or plasma urea nitroge n measurement (mass/volume)Ordered By: Carmelo Mccray on 06-19-2023 Urea nitrogen [Mass/Vol] 9 mg/dL 7-18 [facility] Thin prep Papanicolaou smear with manual screeningOrdered By: Carmelo Mccray on 06-19-2023 Thin prep Papanicolaou smear with manual screening 5 5-15 [facility] Absolute lymphocyte countOrd ered By: Marcio Cardona on 05-01-2023 Lymphocytes Auto (Unsp spec) [#/Vol] 4.15 10*3/uL 0.83-4.51 [facility] Automated lymphocyte count a s percentage of total leukocytesOrdered By: Marcio Cardona on 05-01-2023 Lymphocytes/100 WBC Auto (Unsp spec) 41.9 % 19-41 [facility] Basophil percentageOrdered B y: Jacquie White on 05-01-2023 Basophil percentage 3.4 mg/dL 2.5-4.9 [facility] Basophil percentageOrdered B y: Marcio Cardona on 05-01-2023 Basophils/100 WBC (Bld) 1.2 % 0-1 [facility] Bilirubin [Mass/Vol] 0.60 mg/dL 0.20-1.00 [facility] Comment on above: For patients on eltr ombopag therapy, use of Dimension [place] TBIL is not recommended. Chloride [Moles/Vol] 107 mmol/L 98-107 [facility] Eosinophils/100 WBC (Bld) 0.3 % 0-5 [facility] Glucose [Mass/Vol] 130 mg/dL 74-106 [facility] Comment on above: Fasting Glucose resu lt greater than or equal to 126 mg/dL suggests DIABETES MELLITUS per A.D.A. criteria. Hemoglobin (Bld) [Mass/Vol] 18.1 g/dL 13.0-16.5 [facility] Comment on above: CRITICAL VALUE VERIF IED. CALLED TO Lynn HAMPTON05/01/23 0559 [address].RESULTS READ BACK BY SAME. Monocytes/100 WBC (Bld) 6.5 % 0-10 [facility] Neutrophils (Bld) [#/Vol] 4.9 10*3/uL 2.0-7.7 [facility] Neutrophils/100 WBC (Bld) 49.6 % 47-70 [facility] Potassium [Moles/Vol] 3.8 mmol/L 3.5-5.1 [facility] Protein [Mass/Vol] 7.8 g/dL 6.4-8.2 [facility] Sodium [Moles/Vol] 143 mmol/L 136-145 [facility] WBC (Bld) [#/Vol] 9.9 10*3/uL 4.4-11.0 [facility] Blood manual differential co mment interpretation (narrative result)Ordered By: Marcio Cardona on 05-01-2023 Manual differential comment Isacc (Bld) [Interp] SCANNED [facility] Determination of erythrocyte mean corpuscular volume (MCV)Ordered By: Marcio Cardona on 05-01-2023 MCV (RBC) [Entitic vol] 93.3 fL 80-94 [facility] Erythrocyte distribution wid th ratioOrdered By: Marcio Cardona on 05-01-2023 Erythrocyte distribution width (RBC) [Ratio] 12.8 % 11.6-14.6 [facility] Erythrocyte distribution wid th standard deviationOrdered By: Marcio Cardona on 05-01-2023 Erythrocyte distribution width (RBC) [Entitic vol] 44.0 fL 35.1-43.9 [facility] Hematocrit Auto (Bld) [Volum e fraction]Ordered By: Marcio Cardona on 05-01-2023 Hematocrit (Bld) [Volume fraction] 51.3 % 40-54 [facility] Immature granulocytes/100 WB C Auto (Bld)Ordered By: Marcio Cardona on 05-01-2023 Immature granulocytes/100 WBC (Bld) 0.500 % 0.0-0.9 [facility] Comment on above: IG% - Immature Granu locytes (promyelocytes, myelocytes and metamyelocytes) > 1% indicates that a LEFT SHIFT is Present. Laboratory - Chemistry and C hemistry - challengeOrdered By: Marcio Cardona on 05-01-2023 Albumin/Globulin [Mass ratio] 1.1 {ratio} 0.9-2.4 [facility] ALP [Catalytic activity/Vol] 92 U/L 45-117 [facility] ALT [Catalytic activity/Vol] 49 U/L 16-61 [facility] CO2 [Moles/Vol] 26.0 mmol/L 21.0-32.0 [facility] Globulin (S) [Mass/Vol] 3.7 g/dL 2.2-4.2 [facility] Urea nitrogen/Creatinine [Mass ratio] 6.4 mg/mg 10-20 [facility] Laboratory - Chemistry and C hemistry - challengeOrdered By: Jacquie White on 05-01-2023 Magnesium [Mass/Vol] 2.1 mg/dL 1.6-2.6 [facility] Laboratory - CoagulationOrde red By: Marcio Cardona on 05-01-2023 INR Coag (Bld) [Relative time] 1.0 {INR} [facility] PT Coag (PPP) [Time] 13.5 s 11.7-14.9 [facility] Laboratory - Drug toxicology Ordered By: Marcio Cardona on 05-01-2023 Amphetamines Ql (U) Negative <1000 ng/mL [facility] Benzodiazepines Ql (U) Negative < 200 ng/mL [facility] Cannabinoids Screen Ql (U) Negative < 50 ng/mL [facility] Cocaine Ql (U) Negative < 300 ng/mL [facility] Opiates Ql (U) Negative < 300 ng/mL [facility] Laboratory - Hematology and Cell countsOrdered By: Marcio Cardona on 05-01-2023 MCH (RBC) [Entitic mass] 32.9 pg 27.0-32.0 [facility] MCHC (RBC) [Mass/Vol] 35.3 g/dL 32-36 [facility] Nucleated RBC/100 WBC (Bld) [Ratio] 0 % 0-5 [facility] Platelet mean volume (Bld) [Entitic vol] 9.1 fL 6.2-12.0 [facility] Platelets (Bld) [#/Vol] 371 10*3/uL 150-450 [facility] No Panel InformationOrdered By: Marcio Cardona on 05-01-2023 Estimated GFR (MDRD) Amer 125 mL/min >60 [facility] Comment on above: GFR Calc Estimated GFR (MDRD) Non-Af Amer 103 mL/min >60 [facility] Comment on above: Non- GFR Calc Ethyl Alcohol Level 208.0 mg/dL [facility] Comment on above: The serum:whole bloo d ethanol ratio is approximately 1.14and varies slightly with hematocrit. Medical Alcohol reference interval and critical value innon-tolerant individuals; 50 - 100 Impairment 100 Intoxication 100 - 250 Severe Poisoning 250 - 400 Deep/possible fatal coma MDMA (Ecstasy) Screen Negative < 500 ng/mL [facility] Urine Barbiturates Screen Negative < 200 ng/mL [facility] Urine Drug Screen Comment [facility] Comment on above: CONFIRMATORY TESTING FOR ALL [...] Methadone Screen Negative < 300 ng/mL [facility] RBC Auto (Bld) [#/Vol]Ordere d By: Marcio Cardona on 05-01-2023 RBC (Bld) [#/Vol] 5.50 10*6/uL 4.6-6.2 [facility] Review by pathologistOrdered By: Marcio Cardona on 05-01-2023 Pathologist review Isacc (Unsp spec) [Interp] Cheryl holland [facility] Pathologist review Isacc (Unsp spec) [Interp] Reviewed [facility] Comment on above: Previous reported re sult: Cheryl holland Edited by: МАРИНА on 05/02/23:0932PolycythemiaClinical correlation necessary.Mahesh Sharma M.D. 05/02/23 AMENDED REPORT 05/02/23 0932 PATH REV previously reported as: Cheryl holland Serum or plasma calcium gaetano urement (mass/volume)Ordered By: Marcio Cardona on 05-01-2023 Calcium [Mass/Vol] 8.6 mg/dL 8.5-10.1 [facility] Serum or plasma creatinine m easurement (mass/volume)Ordered By: Marcio Cardona on 05-01-2023 Creatinine [Mass/Vol] 0.94 mg/dL 0.70-1.30 [facility] Comment on above: The validity of the calculated GFR & GFRAA in patients over 70 years has not been determined. Clinical correlation is essential. Serum or plasma urea nitroge n measurement (mass/volume)Ordered By: Marcio Cardona on 05-01-2023 Urea nitrogen [Mass/Vol] 6 mg/dL 7-18 [facility] Thin prep Papanicolaou smear with manual screeningOrdered By: Marcio Cardona on 05-01-2023 Thin prep Papanicolaou smear with manual screening 4.1 g/dL 3.2-5.0 [facility] Thin prep Papanicolaou smear with manual screening 31 U/L 15-37 [facility] Thin prep Papanicolaou smear with manual screening 10 5-15 [facility] Urine phencyclidine (PCP) de tectionOrdered By: Marcio Cardona on 05-01-2023 Phencyclidine Ql (U) Negative < 25 ng/mL [facility] Basophil percentageOrdered B y: Jacquie Beckwith on 03-23-2023 Basophil percentage 2.9 mg/dL 2.5-4.9 [facility] Laboratory - Chemistry and C hemistry - challengeOrdered By: Jacquie Beckwith on 03-23-2023 Magnesium [Mass/Vol] 2.0 mg/dL 1.6-2.6 [facility] Laboratory - CoagulationOrde red By: Stan Thomas on 03-23-2023 INR Coag (Bld) [Relative time] 0.9 {INR} [facility] PT Coag (PPP) [Time] 12.2 s 11.7-14.9 [facility] Absolute lymphocyte countOrd ered By: Daquan Reid on 03-22-2023 Lymphocytes Auto (Unsp spec) [#/Vol] 3.11 10*3/uL 0.83-4.51 [facility] Automated lymphocyte count a s percentage of total leukocytesOrdered By: Daquan Reid on 03-22-2023 Lymphocytes/100 WBC Auto (Unsp spec) 34.2 % 19-41 [facility] Basophil percentageOrdered B y: Daquan Reid on 03-22-2023 Basophils/100 WBC (Bld) 0.8 % 0-1 [facility] Bilirubin [Mass/Vol] 0.70 mg/dL 0.20-1.00 [facility] Comment on above: For patients on eltr ombopag therapy, use of Dimension [place] TBIL is not recommended. Chloride [Moles/Vol] 108 mmol/L 98-107 [facility] Eosinophils/100 WBC (Bld) 0.1 % 0-5 [facility] Glucose [Mass/Vol] 117 mg/dL 74-106 [facility] Comment on above: Fasting Glucose resu lt from 100 to 125 mg/dL suggests IMPAIRED HOMEOSTASIS per A.D.A. criteria. Hemoglobin (Bld) [Mass/Vol] 16.8 g/dL 13.0-16.5 [facility] Monocytes/100 WBC (Bld) 6.3 % 0-10 [facility] Neutrophils (Bld) [#/Vol] 5.3 10*3/uL 2.0-7.7 [facility] Neutrophils/100 WBC (Bld) 58.3 % 47-70 [facility] Potassium [Moles/Vol] 4.0 mmol/L 3.5-5.1 [facility] Protein [Mass/Vol] 8.1 g/dL 6.4-8.2 [facility] Sodium [Moles/Vol] 140 mmol/L 136-145 [facility] WBC (Bld) [#/Vol] 9.1 10*3/uL 4.4-11.0 [facility] Determination of erythrocyte mean corpuscular volume (MCV)Ordered By: Daquan Reid on 03-22-2023 MCV (RBC) [Entitic vol] 88.6 fL 80-94 [facility] Erythrocyte distribution wid th ratioOrdered By: Daquan Reid on 03-22-2023 Erythrocyte distribution width (RBC) [Ratio] 12.4 % 11.6-14.6 [facility] Erythrocyte distribution wid th standard deviationOrdered By: Daquan Reid on 03-22-2023 Erythrocyte distribution width (RBC) [Entitic vol] 40.2 fL 35.1-43.9 [facility] Hematocrit Auto (Bld) [Volum e fraction]Ordered By: Daquan Reid on 03-22-2023 Hematocrit (Bld) [Volume fraction] 46.8 % 40-54 [facility] Immature granulocytes/100 WB C Auto (Bld)Ordered By: Daquan Reid on 03-22-2023 Immature granulocytes/100 WBC (Bld) 0.300 % 0.0-0.9 [facility] Comment on above: IG% - Immature Granu locytes (promyelocytes, myelocytes and metamyelocytes) > 1% indicates that a LEFT SHIFT is Present. Laboratory - Chemistry and C hemistry - challengeOrdered By: Daquan Reid on 03-22-2023 Albumin/Globulin [Mass ratio] 1.2 {ratio} 0.9-2.4 [facility] ALP [Catalytic activity/Vol] 105 U/L 45-117 [facility] ALT [Catalytic activity/Vol] 27 U/L 16-61 [facility] CO2 [Moles/Vol] 25.0 mmol/L 21.0-32.0 [facility] Globulin (S) [Mass/Vol] 3.7 g/dL 2.2-4.2 [facility] Urea nitrogen/Creatinine [Mass ratio] 8.1 mg/mg 10-20 [facility] Laboratory - Chemistry and C hemistry - challengeOrdered By: Stan Thomas on 03-22-2023 Amylase [Catalytic activity/Vol] 34 U/L 15 [facility] - Drug toxicology Ordered By: Daquan Reid on 03-22-2023 Amphetamines Ql (U) Negative <1000 ng/mL [facility] Benzodiazepines Ql (U) Negative < 200 ng/mL [facility] Cannabinoids Screen Ql (U) Negative < 50 ng/mL [facility] Cocaine Ql (U) Negative < 300 ng/mL [facility] Opiates Ql (U) Negative < 300 ng/mL [facility] - Hematology and Cell countsOrdered By: Daquan Reid on 03-22-2023 MCH (RBC) [Entitic mass] 31.8 pg 27.0-32.0 [facility] MCHC (RBC) [Mass/Vol] 35.9 g/dL 32-36 [facility] Nucleated RBC/100 WBC (Bld) [Ratio] 0 % 0-5 [facility] Platelet mean volume (Bld) [Entitic vol] 9.2 fL 6.2-12.0 [facility] Platelets (Bld) [#/Vol] 367 10*3/uL 150-450 [facility] No Panel InformationOrdered By: Daquan Reid on 03-22-2023 Estimated Creatinine Clearance Calc 138.63 ml/min [facility] Estimated GFR (MDRD) Amer 137 mL/min >60 [facility] Comment on above: GFR Calc Estimated GFR (MDRD) Non-Af Amer 113 mL/min >60 [facility] Comment on above: Non- GFR Calc Ethyl Alcohol Level 212.0 mg/dL [facility] Comment on above: The serum:whole bloo d ethanol ratio is approximately 1.14and varies slightly with hematocrit. Medical Alcohol reference interval and critical value innon-tolerant individuals; 50 - 100 Impairment 100 Intoxication 100 - 250 Severe Poisoning 250 - 400 Deep/possible fatal coma MDMA (Ecstasy) Screen Negative < 500 ng/mL [facility] Urine Barbiturates Screen Negative < 200 ng/mL [facility] Urine Drug Screen Comment See comment [facility] Comment on above: CONFIRMATORY TESTING FOR ALL [...] UTCAPrevious reported result: Edited by: QI on 03/22/23:7867 AMENDED REPORT 03/22/232326 TO BE CONFIRMED previously reported as: CONFIRMATORY [...] Methadone Screen Negative < 300 ng/mL [facility] RBC Auto (Bld) [#/Vol]Ordere d By: Daquan Reid on 03-22-2023 RBC (Bld) [#/Vol] 5.28 10*6/uL 4.6-6.2 [facility] Serum or plasma calcium gaetano urement (mass/volume)Ordered By: Daquna Reid on 03-22-2023 Calcium [Mass/Vol] 9.1 mg/dL 8.5-10.1 [facility] Serum or plasma creatinine m easurement (mass/volume)Ordered By: Daquan Reid on 03-22-2023 Creatinine [Mass/Vol] 0.86 mg/dL 0.70-1.30 [facility] Comment on above: The validity of the calculated GFR & GFRAA in patients over 70 years has not been determined. Clinical correlation is essential. Serum or plasma urea nitroge n measurement (mass/volume)Ordered By: Daquan Reid on 03-22-2023 Urea nitrogen [Mass/Vol] 7 mg/dL 7-18 [facility] Thin prep Papanicolaou smear with manual screeningOrdered By: Daquan Reid on 03-22-2023 Thin prep Papanicolaou smear with manual screening 4.4 g/dL 3.2-5.0 [facility] Thin prep Papanicolaou smear with manual screening 18 U/L 15-37 [facility] Thin prep Papanicolaou smear with manual screening 7 5-15 [facility] Urine phencyclidine (PCP) de tectionOrdered By: Daquan Reid on 03-22-2023 Phencyclidine Ql (U) Negative < 25 ng/mL [facility] Absolute lymphocyte countOrd ered By: Cadence Cornelius on 08-05-2022 Lymphocytes Auto (Unsp spec) [#/Vol] 2.36 10*3/uL 0.83-4.51 [facility] Basophil percentageOrdered B y: Cadence Cornelius on 08-05-2022 Basophils/100 WBC (Bld) 1.0 % 0-1 [facility] Bilirubin [Mass/Vol] 0.70 mg/dL 0.20-1.00 [facility] Comment on above: For patients on eltr ombopag therapy, use of Dimension [place] TBIL is not recommended. Chloride [Moles/Vol] 109 mmol/L 98-107 [facility] Eosinophils/100 WBC (Bld) 0.3 % 0-5 [facility] Glucose [Mass/Vol] 116 mg/dL 74-106 [facility] Comment on above: Fasting Glucose resu lt from 100 to 125 mg/dL suggests IMPAIRED HOMEOSTASIS per A.D.A. criteria. Neutrophils (Bld) [#/Vol] 4.0 10*3/uL 2.0-7.7 [facility] Neutrophils/100 WBC (Bld) 56.8 % 47-70 [facility] Potassium [Moles/Vol] 4.0 mmol/L 3.5-5.1 [facility] Protein [Mass/Vol] 6.4 g/dL 6.4-8.2 [facility] Sodium [Moles/Vol] 143 mmol/L 136-145 [facility] WBC (Bld) [#/Vol] 7.1 10*3/uL 4.4-11.0 [facility] Blood erythrocytes count (nu mber/volume)Ordered By: Cadence Cornelius on 08-05-2022 RBC (Bld) [#/Vol] 4.56 10*6/uL 4.6-6.2 [facility] Blood hemoglobin measurement (mass/volume)Ordered By: Cadence Cornelius on 08-05-2022 Hemoglobin (Bld) [Mass/Vol] 14.6 g/dL 13.0-16.5 [facility] Blood lymphocytes/100 leukoc ytesOrdered By: Cadence Cornelius on 08-05-2022 Lymphocytes/100 WBC (Bld) 33.2 % 19-41 [facility] Blood monocytes/100 leukocyt esOrdered By: Cadence Cornelius on 08-05-2022 Monocytes/100 WBC (Bld) 8.3 % 0-10 [facility] Blood platelet mean volumeOr dered By: Cadence Cornelius on 08-05-2022 Platelet mean volume (Bld) [Entitic vol] 9.1 fL 6.2-12.0 [facility] Determination of erythrocyte mean corpuscular volume (MCV)Ordered By: Cadence Cornelius on 08-05-2022 MCV (RBC) [Entitic vol] 90.6 fL 80-94 [facility] Direct bilirubinOrdered By: Cadence Cornelius on 08-05-2022 Bilirubin.direct [Mass/Vol] 0.19 mg/dL 0.00-0.30 [facility] Hematocrit Auto (Bld) [Volum e fraction]Ordered By: Cadence Cornelius on 08-05-2022 Hematocrit (Bld) [Volume fraction] 41.3 % 40-54 [facility] Laboratory - Chemistry and C hemistry - challengeOrdered By: Cadence Cornelius on 08-05-2022 ALP [Catalytic activity/Vol] 73 U/L 45-117 [facility] ALT [Catalytic activity/Vol] 24 U/L 16-61 [facility] CO2 [Moles/Vol] 28.0 mmol/L 21.0-32.0 [facility] Globulin (S) [Mass/Vol] 2.9 g/dL 2.2-4.2 [facility] Urea nitrogen/Creatinine [Mass ratio] 10.0 mg/mg 10-20 [facility] - Drug toxicology Ordered By: Cadence Cornelius on 08-05-2022 Amphetamines Ql (U) Negative <1000 ng/mL [facility] Benzodiazepines Ql (U) Negative < 200 ng/mL [facility] Cannabinoids Screen Ql (U) Negative < 50 ng/mL [facility] Cocaine Ql (U) Positive < 300 ng/mL [facility] Opiates Ql (U) Negative < 300 ng/mL [facility] - Hematology and Cell countsOrdered By: Cadence Cornelius on 08-05-2022 Erythrocyte distribution width (RBC) [Entitic vol] 38.1 fL 35.1-43.9 [facility] Erythrocyte distribution width (RBC) [Ratio] 11.6 % 11.6-14.6 [facility] Immature granulocytes/100 WBC (Bld) 0.400 % 0.0-0.9 [facility] Comment on above: IG% - Immature Granu locytes (promyelocytes, myelocytes and metamyelocytes) > 1% indicates that a LEFT SHIFT is Present. MCH (RBC) [Entitic mass] 32.0 pg 27.0-32.0 [facility] Nucleated RBC/100 WBC (Bld) [Ratio] 0 % 0-5 [facility] MCHC Auto (RBC) [Mass/Vol]Or dered By: Cadence Cornelius on 08-05-2022 MCHC (RBC) [Mass/Vol] 35.4 g/dL 32-36 [facility] No Panel InformationOrdered By: Cadence Cornelius on 08-05-2022 MDMA (Ecstasy) Screen Negative < 500 ng/mL [facility] Urine Barbiturates Screen Negative < 200 ng/mL [facility] Urine Drug Screen Comment [facility] Comment on above: CONFIRMATORY TESTING FOR ALL [...] Methadone Screen Negative < 300 ng/mL [facility] Estimated Creatinine Clearance Calc 150.34 ml/min [facility] Estimated GFR (MDRD) Amer 151 mL/min >60 [facility] Comment on above: GFR Calc Estimated GFR (MDRD) Non-Af Amer 125 mL/min >60 [facility] Comment on above: Non- GFR Calc Ethyl Alcohol Level 219.0 mg/dL [facility] Comment on above: The serum:whole bloo d ethanol ratio is approximately 1.14and varies slightly with hematocrit. Medical Alcohol reference interval and critical value innon-tolerant individuals; 50 - 100 Impairment 100 Intoxication 100 - 250 Severe Poisoning 250 - 400 Deep/possible fatal coma Platelets bldOrdered By: Geraldine Cornelius on 08-05-2022 Platelets (Bld) [#/Vol] 249 10*3/uL 150-450 [facility] Serum or plasma albumin gaetano urement (mass/volume)Ordered By: Cadence Cornelius on 08-05-2022 Albumin [Mass/Vol] 3.5 g/dL 3.2-5.0 [facility] Serum or plasma calcium gaetano urement (mass/volume)Ordered By: Cadence Cornelius on 08-05-2022 Calcium [Mass/Vol] 8.2 mg/dL 8.5-10.1 [facility] Serum or plasma creatinine m easurement (mass/volume)Ordered By: Cadence Cornelius on 08-05-2022 Creatinine [Mass/Vol] 0.80 mg/dL 0.70-1.30 [facility] Comment on above: The validity of the calculated GFR & GFRAA in patients over 70 years has not been determined. Clinical correlation is essential. Serum or plasma urea nitroge n measurement (mass/volume)Ordered By: Cadence Cornelius on 08-05-2022 Urea nitrogen [Mass/Vol] 8 mg/dL 7-18 [facility] Thin prep Papanicolaou smear with manual screeningOrdered By: Cadence Cornelius on 08-05-2022 Thin prep Papanicolaou smear with manual screening 17 U/L 15-37 [facility] Thin prep Papanicolaou smear with manual screening 6 5-15 [facility] Urine phencyclidine (PCP) de tectionOrdered By: Cadence Cornelius on 08-05-2022 Phencyclidine Ql (U) Negative < 25 ng/mL [facility] Vital Signs Date Time Vital Sign Value Performing Clinician Facility 10-18-2024 18:23-0400 Body temperature 98.9 [degF] No Primary Care Physician [facility] 10-18-2024 18:23-0400 Diastolic blood pressure 68 mm[Hg] No Primary Care Physician [facility] 10-18-2024 18:23-0400 Heart rate 90 /min No Primary Care Physician [facility] 10-18-2024 18:23-0400 Respiratory rate 16 /min No Primary Care Physician [facility] 10-18-2024 18:23-0400 SaO2% (BldA) [Mass fraction] 100 % No Primary Care Physician [facility] 10-18-2024 18:23-0400 Systolic blood pressure 123 mm[Hg] No Primary Care Physician [facility] 10-18-2024 15:58-0400 Body height 180.34 cm No Primary Care Physician [facility] 10-18-2024 15:58-0400 Body mass index (BMI) [Ratio] 23.7 kg/m2 No Primary Care Physician [facility] 10-18-2024 15:58-0400 Body weight 77.24 kg No Primary Care Physician [facility] 10-18-2024 15:50-0400 Body temperature 98.4 [degF] No Primary Care Physician [facility] 10-18-2024 15:50-0400 Diastolic blood pressure 63 mm[Hg] No Primary Care Physician [facility] 10-18-2024 15:50-0400 Heart rate 112 /min No Primary Care Physician [facility] 10-18-2024 15:50-0400 Respiratory rate 18 /min No Primary Care Physician [facility] 10-18-2024 15:50-0400 SaO2% (BldA) [Mass fraction] 97 % No Primary Care Physician [facility] 10-18-2024 15:50-0400 Systolic blood pressure 122 mm[Hg] No Primary Care Physician [facility] 10-18-2024 15:03-0400 Body height 180.34 cm No Primary Care Physician [facility] 10-18-2024 15:03-0400 Body mass index (BMI) [Ratio] 24 kg/m2 No Primary Care Physician [facility] 10-18-2024 15:03-0400 Body weight 78.2 kg No Primary Care Physician [facility] 10-14-2024 12:55-0400 Respiratory rate 16 /min Kristian Parekh MD Work Phone: [facility] 10-14-2024 12:43-0400 Body temperature 97.81 [degF] Kristian Parekh MD Work Phone: [facility] 10-14-2024 12:43-0400 Diastolic blood pressure 76 mm[Hg] Kristian Parekh MD Work Phone: [facility] 10-14-2024 12:43-0400 Heart rate 72 /min Kristian Parekh MD Work Phone: [facility] 10-14-2024 12:43-0400 SaO2% (BldA) [Mass fraction] 96 % Kristian Parekh MD Work Phone: [facility] 10-14-2024 12:43-0400 Systolic blood pressure 121 mm[Hg] Kristian aPrekh MD Work Phone: [facility] 10-12-2024 23:15-0400 Body height 180.3 cm Kristian Parekh MD Work Phone: [facility] 10-12-2024 23:15-0400 Body mass index (BMI) [Ratio] 24.13 kg/m2 Kristian Parekh MD Work Phone: [facility] 10-12-2024 23:15-0400 Body weight 78.47 kg Kristian Parekh MD Work Phone: [facility] 10-11-2024 15:13-0400 Respiratory rate 16 /min [facility] 10-11-2024 14:29-0400 Body temperature 98.01 [degF] [facility] 10-11-2024 14:29-0400 Diastolic blood pressure 76 mm[Hg] [facility] 10-11-2024 14:29-0400 Heart rate 77 /min [facility] 10-11-2024 14:29-0400 SaO2% (BldA) [Mass fraction] 97 % [facility] 10-11-2024 14:29-0400 Systolic blood pressure 124 mm[Hg] [facility] 10-08-2024 00:54-0400 Body height 180.3 cm [facility] 10-08-2024 00:54-0400 Body mass index (BMI) [Ratio] 24.41 kg/m2 [facility] 10-08-2024 00:54-0400 Body weight 79.38 kg [facility] 10-05-2024 13:15-0400 Respiratory rate 16 /min [facility] 10-05-2024 11:25-0400 Diastolic blood pressure 76 mm[Hg] [facility] 10-05-2024 11:25-0400 Heart rate 107 /min [facility] 10-05-2024 11:25-0400 SaO2% (BldA) [Mass fraction] 98 % [facility] 10-05-2024 11:25-0400 Systolic blood pressure 124 mm[Hg] [facility] 10-05-2024 11:00-0400 Body temperature 100.9 [degF] [facility] 10-05-2024 04:00-0400 Body height 180.3 cm [facility] 10-05-2024 04:00-0400 Body mass index (BMI) [Ratio] 23.98 kg/m2 [facility] 10-05-2024 04:00-0400 Body weight 78 kg [facility] 10-04-2024 11:56-0400 Respiratory rate 16 /min [facility] 10-04-2024 11:23-0400 Body temperature 98.01 [degF] [facility] 10-04-2024 11:23-0400 Diastolic blood pressure 70 mm[Hg] [facility] 10-04-2024 11:23-0400 Heart rate 110 /min [facility] 10-04-2024 11:23-0400 SaO2% (BldA) [Mass fraction] 96 % [facility] 10-04-2024 11:23-0400 Systolic blood pressure 150 mm[Hg] [facility] 10-04-2024 07:15-0400 Body height 180.3 cm [facility] 10-04-2024 07:15-0400 Body mass index (BMI) [Ratio] 24.27 kg/m2 [facility] 10-04-2024 07:15-0400 Body weight 78.93 kg [facility] 10-02-2024 08:18-0400 Body temperature 97.9 [degF] No Primary Care Physician [facility] 10-02-2024 08:18-0400 Diastolic blood pressure 78 mm[Hg] No Primary Care Physician [facility] 10-02-2024 08:18-0400 Heart rate 97 /min No Primary Care Physician [facility] 10-02-2024 08:18-0400 Respiratory rate 16 /min No Primary Care Physician [facility] 10-02-2024 08:18-0400 SaO2% (BldA) [Mass fraction] 98 % No Primary Care Physician [facility] 10-02-2024 08:18-0400 Systolic blood pressure 132 mm[Hg] No Primary Care Physician [facility] 10-02-2024 04:55-0400 Body height 180.34 cm No Primary Care Physician [facility] 10-02-2024 04:55-0400 Body mass index (BMI) [Ratio] 25.4 kg/m2 No Primary Care Physician [facility] 10-02-2024 04:55-0400 Body weight 83 kg No Primary Care Physician [facility] 10-02-2024 04:06-0400 Body height 180.34 cm No Primary Care Physician [facility] 10-02-2024 04:06-0400 Body mass index (BMI) [Ratio] 25.4 kg/m2 No Primary Care Physician [facility] 10-02-2024 04:06-0400 Body temperature 98.4 [degF] No Primary Care Physician [facility] 10-02-2024 04:06-0400 Body weight 83 kg No Primary Care Physician [facility] 10-02-2024 04:06-0400 Diastolic blood pressure 92 mm[Hg] No Primary Care Physician [facility] 10-02-2024 04:06-0400 Heart rate 97 /min No Primary Care Physician [facility] 10-02-2024 04:06-0400 Respiratory rate 18 /min No Primary Care Physician [facility] 10-02-2024 04:06-0400 SaO2% (BldA) [Mass fraction] 99 % No Primary Care Physician [facility] 10-02-2024 04:06-0400 Systolic blood pressure 144 mm[Hg] No Primary Care Physician [facility] 10-01-2024 14:00-0400 Body temperature 97.6 [degF] No Primary Care Physician [facility] 10-01-2024 14:00-0400 Diastolic blood pressure 73 mm[Hg] No Primary Care Physician [facility] 10-01-2024 14:00-0400 Heart rate 54 /min No Primary Care Physician [facility] 10-01-2024 14:00-0400 Respiratory rate 12 /min No Primary Care Physician [facility] 10-01-2024 14:00-0400 SaO2% (BldA) [Mass fraction] 98 % No Primary Care Physician [facility] 10-01-2024 14:00-0400 Systolic blood pressure 131 mm[Hg] No Primary Care Physician [facility] 10-01-2024 10:00-0400 Inhaled oxygen flow rate 99 L/min No Primary Care Physician [facility] 10-01-2024 01:52-0400 Body height 180.34 cm No Primary Care Physician [facility] 10-01-2024 01:52-0400 Body mass index (BMI) [Ratio] 25.7 kg/m2 No Primary Care Physician [facility] 10-01-2024 01:52-0400 Body weight 83.46 kg No Primary Care Physician [facility] 06-11-2024 07:27-0400 Diastolic blood pressure 83 mm[Hg] [facility] 06-11-2024 07:27-0400 Heart rate 80 /min [facility] 06-11-2024 07:27-0400 Respiratory rate 18 /min [facility] 06-11-2024 07:27-0400 SaO2% (BldA) [Mass fraction] 98 % [facility] 06-11-2024 07:27-0400 Systolic blood pressure 126 mm[Hg] [facility] 06-11-2024 04:18-0400 Body temperature 97.3 [degF] [facility] 06-11-2024 04:14-0400 Body height 180.3 cm [facility] 06-11-2024 04:14-0400 Body mass index (BMI) [Ratio] 24.55 kg/m2 [facility] 06-11-2024 04:14-0400 Body weight 79.83 kg [facility] 06-10-2024 22:29-0400 Body height 180.3 cm [facility] 06-10-2024 22:29-0400 Body mass index (BMI) [Ratio] 24.55 kg/m2 [facility] 06-10-2024 22:29-0400 Body weight 79.83 kg [facility] 06-10-2024 22:26-0400 Body temperature 96.3 [degF] [facility] 06-10-2024 22:26-0400 Diastolic blood pressure 96 mm[Hg] [facility] 06-10-2024 22:26-0400 Heart rate 108 /min [facility] 06-10-2024 22:26-0400 Respiratory rate 16 /min [facility] 06-10-2024 22:26-0400 SaO2% (BldA) [Mass fraction] 97 % [facility] 06-10-2024 22:26-0400 Systolic blood pressure 144 mm[Hg] [facility] 01-28-2024 13:37-0500 Body height 180.3 cm Christy Retana APRN - JESSICA Work Phone: [facility] 01-28-2024 13:37-0500 Body mass index (BMI) [Ratio] 27.06 kg/m2 Christy Retana APRN - JESSICA Work Phone: [facility] [employer] 01-28-2024 13:37-0500 Body temperature 98.4 [degF] Christy Shital HERB COUNSELOR - SPORTS CARTOONIST Work Phone: [facility] [employer] 01-28-2024 13:37-0500 Body weight 88 kg Christy Shital HERB COUNSELOR - SPORTS CARTOONIST Work Phone: [facility] 01-28-2024 13:37-0500 Diastolic blood pressure 75 mm[Hg] Christy Shital HERB COUNSELOR - SPORTS CARTOONIST Work Phone: [facility] 01-28-2024 13:37-0500 Heart rate 90 /min Christy Shital HERB COUNSELOR - SPORTS CARTOONIST Work Phone: [facility] 01-28-2024 13:37-0500 Respiratory rate 17 /min Christy Shital HERB COUNSELOR - SPORTS CARTOONIST Work Phone: [facility] 01-28-2024 13:37-0500 SaO2% (BldA) [Mass fraction] 98 % Christy Shital HERB COUNSELOR - SPORTS CARTOONIST Work Phone: [facility] 01-28-2024 13:37-0500 Systolic blood pressure 117 mm[Hg] Christy Shital HERB COUNSELOR - SPORTS CARTOONIST Work Phone: [facility] 06-20-2023 19:15-0400 Body temperature 97.88 [degF] OLIVIER VASQUES HERB COUNSELOR-VENDOR RELATIONSHIP MANAGER [facility] 06-20-2023 19:15-0400 Diastolic Blood Pressure Non-Invasive 90 mm[Hg] OLIVIER VASQUES HERB COUNSELOR-VENDOR RELATIONSHIP MANAGER [facility] 06-20-2023 19:15-0400 Heart rate 87 /min OLIVIER VASQUES HERB COUNSELOR-VENDOR RELATIONSHIP MANAGER [facility] 06-20-2023 19:15-0400 Reason For Taking [employer] OLIVIER VASQUES HERB COUNSELOR-VENDOR RELATIONSHIP MANAGER [facility] 06-20-2023 19:15-0400 Respiratory rate 16 /min OLIVIER VASQUES HERB COUNSELOR-VENDOR RELATIONSHIP MANAGER [facility] 06-20-2023 19:15-0400 Systolic Blood Pressure Non-Invasive 144 mm[Hg] OLIVIER VASQUES HERB COUNSELOR-VENDOR RELATIONSHIP MANAGER [facility] 06-20-2023 17:05-0400 Body temperature 97.88 [degF] OLIVIER VASQUES HERB COUNSELOR-VENDOR RELATIONSHIP MANAGER [facility] 06-20-2023 17:05-0400 Diastolic Blood Pressure Non-Invasive 87 mm[Hg] OLIVIER VASQUES HERB COUNSELOR-VENDOR RELATIONSHIP MANAGER [facility] 06-20-2023 17:05-0400 Heart rate 93 /min OLIVIER VASQUES HERB COUNSELOR-VENDOR RELATIONSHIP MANAGER [facility] 06-20-2023 17:05-0400 Reason For Taking [employer] OLIVIER VASQUES HERB COUNSELOR-VENDOR RELATIONSHIP MANAGER [facility] 06-20-2023 17:05-0400 Respiratory rate 14 /min OLIVIER VASQUES HERB COUNSELOR-VENDOR RELATIONSHIP MANAGER [facility] 06-20-2023 17:05-0400 Systolic Blood Pressure Non-Invasive 134 mm[Hg] OLIVIER VASQUES HERB COUNSELOR-VENDOR RELATIONSHIP MANAGER [facility] 06-20-2023 14:30-0400 Diastolic Blood Pressure Non-Invasive 93 mm[Hg] OLIVIER VASQUES HERB COUNSELOR-VENDOR RELATIONSHIP MANAGER [facility] 06-20-2023 14:30-0400 Systolic Blood Pressure Non-Invasive 138 mm[Hg] OILVIER VASQUES HERB COUNSELOR-VENDOR RELATIONSHIP MANAGER [facility] 06-20-2023 14:24-0400 Body temperature 97.52 [degF] OLIVIER VASQUES HERB COUNSELOR-VENDOR RELATIONSHIP MANAGER [facility] 06-20-2023 14:24-0400 Heart rate 80 /min OLIVIER VASQUES HERB COUNSELOR-VENDOR RELATIONSHIP MANAGER [facility] 06-20-2023 14:24-0400 Reason For Taking [employer] OLIVIER VASQUES HERB COUNSELOR-VENDOR RELATIONSHIP MANAGER [facility] 06-20-2023 14:24-0400 Respiratory rate 14 /min OLIVIER VASQUES HERB COUNSELOR-VENDOR RELATIONSHIP MANAGER [facility] 06-20-2023 05:41-0400 Body height 180.3 cm OLIVIER VASQUES HERB COUNSELOR-VENDOR RELATIONSHIP MANAGER [facility] 06-20-2023 05:41-0400 Body weight 95.3 kg OLIVIER VASQUES HERB COUNSELOR-VENDOR RELATIONSHIP MANAGER [facility] 06-20-2023 05:41-0400 Body weight 29.32 kg/m2 OLIVIER VASQUES HERB COUNSELOR-VENDOR RELATIONSHIP MANAGER [facility] 06-20-2023 05:35-0400 Blood Pressure Location OLIVIER VASQUES HERB COUNSELOR-VENDOR RELATIONSHIP MANAGER [facility] 06-20-2023 04:49-0400 Blood Pressure Location OLIVIER VASQUES HERB COUNSELOR-VENDOR RELATIONSHIP MANAGER [facility] 06-20-2023 04:49-0400 Blood Pressure Method OLIVIER VASQUES HERB COUNSELOR-VENDOR RELATIONSHIP MANAGER [facility] 06-20-2023 04:49-0400 Heart rate 80 /min OLIVIER VASQUES HERB COUNSELOR-VENDOR RELATIONSHIP MANAGER [facility] 06-20-2023 04:18-0400 Blood Pressure Location OLIVIER VASQUES HERB COUNSELOR-VENDOR RELATIONSHIP MANAGER [facility] 06-20-2023 04:18-0400 Blood Pressure Method OLIVIER VASQUES HERB COUNSELOR-VENDOR RELATIONSHIP MANAGER [facility] 06-20-2023 04:18-0400 Heart rate 87 /min OLIVIER VASQUES HERB COUNSELOR-VENDOR RELATIONSHIP MANAGER [facility] 06-20-2023 03:04-0400 Blood Pressure Method OLIVIER VASQUES HERB COUNSELOR-VENDOR RELATIONSHIP MANAGER [facility] 06-20-2023 03:04-0400 Heart rate 107 /min OLIVIER VASQUES HERB COUNSELOR-VENDOR RELATIONSHIP MANAGER [facility] 06-20-2023 02:15-0400 Body height 180.3 cm OLIVIER VASQUES HERB COUNSELOR-VENDOR RELATIONSHIP MANAGER [facility] 06-20-2023 02:15-0400 Body weight 95 kg OLIVIER VASQUES HERB COUNSELOR-VENDOR RELATIONSHIP MANAGER [facility] 06-20-2023 00:48-0400 Body temperature 97.4 [degF] No Primary Care Physician [facility] 06-20-2023 00:48-0400 Diastolic blood pressure 85 mm[Hg] No Primary Care Physician [facility] 06-20-2023 00:48-0400 Heart rate 68 /min No Primary Care Physician [facility] 06-20-2023 00:48-0400 Respiratory rate 16 /min No Primary Care Physician [facility] 06-20-2023 00:48-0400 SaO2% (BldA) [Mass fraction] 100 % No Primary Care Physician [facility] 06-20-2023 00:48-0400 Systolic blood pressure 151 mm[Hg] No Primary Care Physician [facility] 06-19-2023 20:58-0400 Body height 180.34 cm No Primary Care Physician [facility] 06-19-2023 20:58-0400 Body mass index (BMI) [Ratio] 29 kg/m2 No Primary Care Physician [facility] 06-19-2023 20:58-0400 Body weight 94.46 kg No Primary Care Physician [facility] 05-01-2023 13:42-0400 Body temperature 97.4 [degF] No Primary Care Physician [facility] 05-01-2023 13:42-0400 Diastolic blood pressure 78 mm[Hg] No Primary Care Physician [facility] 05-01-2023 13:42-0400 Heart rate 55 /min No Primary Care Physician [facility] 05-01-2023 13:42-0400 Respiratory rate 17 /min No Primary Care Physician [facility] 05-01-2023 13:42-0400 SaO2% (BldA) [Mass fraction] 98 % No Primary Care Physician [facility] 05-01-2023 13:42-0400 Systolic blood pressure 138 mm[Hg] No Primary Care Physician [facility] 05-01-2023 06:45-0400 Body height 180.34 cm No Primary Care Physician [facility] 05-01-2023 06:45-0400 Body mass index (BMI) [Ratio] 28 kg/m2 No Primary Care Physician [facility] 05-01-2023 06:45-0400 Body weight 91.4 kg No Primary Care Physician [facility] 05-01-2023 05:52-0400 Body temperature 97.1 [degF] No Primary Care Physician [facility] 05-01-2023 05:52-0400 Diastolic blood pressure 84 mm[Hg] No Primary Care Physician [facility] 05-01-2023 05:52-0400 Heart rate 96 /min No Primary Care Physician [facility] 05-01-2023 05:52-0400 Respiratory rate 14 /min No Primary Care Physician [facility] 05-01-2023 05:52-0400 SaO2% (BldA) [Mass fraction] 99 % No Primary Care Physician [facility] 05-01-2023 05:52-0400 Systolic blood pressure 124 mm[Hg] No Primary Care Physician [facility] 05-01-2023 05:05-0400 Body height 180.34 cm No Primary Care Physician [facility] 03-23-2023 10:40-0500 Body temperature 98.3 [degF] No Primary Care Physician [facility] 03-23-2023 10:40-0500 Diastolic blood pressure 84 mm[Hg] No Primary Care Physician [facility] 03-23-2023 10:40-0500 Heart rate 87 /min No Primary Care Physician [facility] 03-23-2023 10:40-0500 Respiratory rate 16 /min No Primary Care Physician [facility] 03-23-2023 10:40-0500 SaO2% (BldA) [Mass fraction] 96 % No Primary Care Physician [facility] 03-23-2023 10:40-0500 Systolic blood pressure 133 mm[Hg] No Primary Care Physician [facility] 03-23-2023 05:34-0500 Body temperature 98.3 [degF] No Primary Care Physician [facility] 03-23-2023 05:34-0500 Diastolic blood pressure 58 mm[Hg] No Primary Care Physician [facility] 03-23-2023 05:34-0500 Heart rate 86 /min No Primary Care Physician [facility] 03-23-2023 05:34-0500 Respiratory rate 17 /min No Primary Care Physician [facility] 03-23-2023 05:34-0500 SaO2% (BldA) [Mass fraction] 98 % No Primary Care Physician [facility] 03-23-2023 05:34-0500 Systolic blood pressure 113 mm[Hg] No Primary Care Physician [facility] 03-23-2023 01:01-0500 Body height 180.34 cm No Primary Care Physician [facility] 03-23-2023 01:01-0500 Body mass index (BMI) [Ratio] 27.6 kg/m2 No Primary Care Physician [facility] 03-23-2023 01:01-0500 Body weight 89.81 kg No Primary Care Physician [facility] 03-22-2023 22:04-0500 Body height 180.34 cm No Primary Care Physician [facility] 03-22-2023 22:04-0500 Body mass index (BMI) [Ratio] 27.6 kg/m2 No Primary Care Physician [facility] 03-22-2023 22:04-0500 Body temperature 97.5 [degF] No Primary Care Physician [facility] 03-22-2023 22:04-0500 Body weight 89.81 kg No Primary Care Physician [facility] 03-22-2023 22:04-0500 Diastolic blood pressure 86 mm[Hg] No Primary Care Physician [facility] 03-22-2023 22:04-0500 Heart rate 108 /min No Primary Care Physician [facility] 03-22-2023 22:04-0500 Respiratory rate 18 /min No Primary Care Physician [facility] 03-22-2023 22:04-0500 SaO2% (BldA) [Mass fraction] 96 % No Primary Care Physician [facility] 03-22-2023 22:04-0500 Systolic blood pressure 135 mm[Hg] No Primary Care Physician [facility] 08-07-2022 08:32-0400 Body temperature 97.9 [degF] Dr. Fior Ridley Work Phone: [facility] 08-07-2022 08:32-0400 Diastolic blood pressure 63 mm[Hg] Dr. Fior Ridley Work Phone: [facility] 08-07-2022 08:32-0400 Heart rate 81 /min Dr. Fior Ridley Work Phone: [facility] 08-07-2022 08:32-0400 Respiratory rate 18 /min Dr. Fior Ridley Work Phone: [facility] 08-07-2022 08:32-0400 SaO2% (BldA) [Mass fraction] 99 % Dr. Fior Ridley Work Phone: [facility] 08-07-2022 08:32-0400 Systolic blood pressure 125 mm[Hg] Dr. Fior Ridley Work Phone: [facility] 08-05-2022 18:27-0400 Body height 180.[address] Fior Ridley Work Phone: [facility] 08-05-2022 18:27-0400 Body mass index (BMI) [Ratio] 24.4 kg/m2 Dr. Fior Ridley Work Phone: [facility] 08-05-2022 18:27-0400 Body weight 79.[address] Fior Ridley Work Phone: 2(873)067-801162 [place] [address] 08-05-2022 17:22-0400 Respiratory rate 18 /min Dr. Fior Ridley Work Phone: 1(530)[phone] [address] 08-05-2022 17:11-0400 Body temperature 97.7 [degF] Dr. Fior Ridley Work Phone: 6(129)[phone] [place] [address] 08-05-2022 17:11-0400 Diastolic blood pressure 68 mm[Hg] Dr. Fior Ridley Work Phone: 5(892)[phone] [place] [address] 08-05-2022 17:11-0400 Heart rate 81 /min Dr. Fior Ridley Work Phone: 4(840)[phone] [place] [address] 08-05-2022 17:11-0400 SaO2% (BldA) [Mass fraction] 97 % Dr. Fior Ridley Work Phone: 3(281)[phone] [place] [address] 08-05-2022 17:11-0400 Systolic blood pressure 124 mm[Hg] Dr. Fior Ridley Work Phone: [facility] 08-05-2022 15:22-0400 Body height 180.[address] Fior Ridley Work Phone: [facility] 08-05-2022 15:22-0400 Body mass index (BMI) [Ratio] 27.1 kg/m2 Dr. Fior Ridley Work Phone: [facility] 08-05-2022 15:22-0400 Body weight 88.[address] Fior Ridley Work Phone: [facility] Encounters Encounter Date Encounter Type Care Provider Facility Start: 10-18-2024 Evaluation and management of inpatient Dr. Ingrid Reece MD -[facility] 3 Work Phone: Start: 10-18-2024 End: 10-18-2024 Emergency department patient visit No Primary Care Physician -Emergency Department Work Phone: Start: 10-12-2024 End: 10-14-2024 ambulatory PHYSICIAN NO [facility] Start: 10-12-2024 End: 10-14-2024 Evaluation and management of inpatient Demetrius Wilder MD Work Phone: [facility] Rapid Diagnosis Start: 10-12-2024 End: 10-12-2024 Emergency department patient visit CORONA GUERRERO II [facility] Start: 10-08-2024 End: 10-11-2024 Evaluation and management of inpatient Corona Guerrero MD Work Phone: [facility] Tra[facility] Start: 10-04-2024 End: 10-05-2024 Evaluation and management of inpatient Dawson Plascencia DO Work Phone: [facility] Start: 10-02-2024 End: 10-06-2024 Emergency department patient visit PHYSICIAN NO [facility] Start: 10-02-2024 End: 10-04-2024 Evaluation and management of inpatient Geoff Cadena DO Work Phone: [facility] Start: 10-02-2024 Non-patient / Non-visit Dr. Rachel martinez MD -[facility] Work Phone: Start: 10-02-2024 End: 10-02-2024 Emergency department patient visit No Primary Care Physician -Emergency Department Work Phone: Start: 10-01-2024 Non-patient / Non-visit Dr. Jacquie Beckwith MD -[facility] Work Phone: Start: 10-01-2024 ambulatory No Primary Car e Physician Facility:[facility] Start: 10-01-2024 End: 10-01-2024 Evaluation and management of inpatient Dr. Rachel Stephen MD -[facility] 3 Work Phone: Start: 09-30-2024 End: 10-01-2024 Emergency department patient visit SH[facility]ETA R[facility]A [facility] Start: 09-29-2024 End: 09-30-2024 Emergency department patient visit RACHEL PULIDO [facility] Start: 09-27-2024 End: 09-28-2024 [facility] Start: 06-24-2024 End: 06-24-2024 Emergency department patient visit [facility] Start: 06-11-2024 End: 06-11-2024 Emergency department patient visit [facility] Comment on above: Chest pain, unspecif ied type (Primary Dx); Methamphetamine abuse (HCC); Alcohol abuse Start: 06-10-2024 End: 06-10-2024 Emergency department patient visit [facility] Start: 01-28-2024 End: 01-28-2024 Office outpatient visit 15 minutes Christy Oscar NP Work Phone: [facility] Comment on above: Influenza A (Primary Dx); URI with cough and congestion; Generalized body aches Start: 01-28-2024 End: 01-28-2024 ambulatory [facility] Start: 07-25-2023 End: 07-25-2023 Emergency department patient visit Physician Shelby [facility] Start: 06-20-2023 End: 06-20-2023 Emergency department patient visit KATYA GRIFFITH MD Facility:[facility] Start: 06-20-2023 End: 06-20-2023 Observation OLIVIER PRINCE [facility] Start: 06-19-2023 End: 06-20-2023 Emergency department patient visit No Primary Care Physician [facility]gency [facility] Work Phone: Start: 05-01-2023 End: 05-01-2023 Evaluation and management of inpatient No Primary Care Physician [facility]-Intensive [facility] Work Phone: Start: 03-23-2023 Non-patient / Non-visit No [facility] Physician [facility] Work Phone: Start: 03-23-2023 End: 03-23-2023 Evaluation and management of inpatient No Primary Care Physician [facility] Surgical 3 Work Phone: Start: 08-07-2022 Non-patient / Non-visit Dr. Franklin Ridley Work Phone: [facility] Start: 08-06-2022 Non-patient / Non-visit Dr. Franklin Ridley Work Phone: [facility] Start: 08-05-2022 Non-patient / Non-visit Dr. Franklin Ridley Work Phone: [facility] Start: 08-05-2022 End: 08-07-2022 Evaluation and management of inpatient Dr. Fior Ridley Work Phone: [facility] Surgical 3 Procedures Date Procedure Procedure Detail Performing Clinician Start: 10-18-2024 Estimated creatinine clearance No Primary Care Physician Start: 10-18-2024 Methadone measuremen t, urine No Primary Care Physician Start: 10-14-2024 Creatinine blood Daisykhadijah Cheungalicia Hampton VENDOR RELATIONSHIP MANAGER Work Phone: Start: 10-13-2024 EMS RUN SHEET Generic E ms Provider Start: 10-13-2024 Basic metabolic pane l calcium total Akilah Gomez Cervantes VENDOR RELATIONSHIP MANAGER Work Phone: Start: 10-12-2024 Blood ethanol measurement Akilah Dyer Cervantes VENDOR RELATIONSHIP MANAGER Work Phone: Start: 10-12-2024 Basic metabolic pane [...] Phone: Start: 10-08-2024 Comprehensive metabo lic panel Tjeal Nguyenchristianokylah Mike MAN Work Phone: Start: 10-08-2024 Hepatic function panel Tejal Plasencia Mike CAMPA-Jamar Work Phone: Start: 10-05-2024 Basic metabolic pane l calcium total Christen Carmen MAN Work Phone: Start: 10-05-2024 Drug tst prsmv instr mnt chem analyzers pr date Renaera Patton Wang VENDOR RELATIONSHIP MANAGER Work Phone: Start: 10-04-2024 Blood count complete automated Renae Patton Wang VENDOR RELATIONSHIP MANAGER Work Phone: Start: 10-04-2024 Blood ethanol measurement Renae Patton Wang VENDOR RELATIONSHIP MANAGER Work Phone: Start: 10-04-2024 Blood ethanol measurement Shellie Herrmann DO Work Phone: Start: 10-03-2024 Drug tst prsmv instr mnt chem analyzers pr date Leonel Colón Start: 10-03-2024 Basic metabolic pane l calcium total Leonel Colón Start: 10-02-2024 Blood count complete automated Holli Amaya VENDOR RELATIONSHIP MANAGER Work Phone: Start: 10-02-2024 Blood group typing Mickey Mendoza Liz DO Work Phone: Start: 10-02-2024 Ct angio [...] metabolic pane l calcium total Holli Amaya VENDOR RELATIONSHIP MANAGER Work Phone: Start: 10-02-2024 Blood ethanol measurement [...] Comment: URIN ALYSIS Performed By: #### [id number] #### [place] [id number] Start: 09-28-2024 Urinalysis SHWETA Gibson Comment on above: Result Comment: URIN ALYSIS Performed By: #### [id number] ####[place] [id number] Start: 06-11-2024 Basic metabolic pane l calcium total Easton Dahl HERB COUNSELOR - VENDOR RELATIONSHIP MANAGER Work Phone: Start: 06-11-2024 Drug test def 1-7 classes Easton Dahl HERB COUNSELOR - VENDOR RELATIONSHIP MANAGER Work Phone: Start: 06-11-2024 Radiologic exam ches t 2 views Easton Dahl HERB COUNSELOR - VENDOR RELATIONSHIP MANAGER Work Phone: Start: 06-11-2024 Ecg routine ecg w/le ast 12 lds trcg only w/o i&r Arnold Olivera MD Work Phone: Start: 01-28-2024 Sars-cov-2 detection by dna/rna Christy Retana HERB COUNSELOR - SPORTS CARTOONIST Work Phone: Start: 01-28-2024 Infectious agent dna /rna influenza 1st 2 types Christy Retana HERB COUNSELOR - SPORTS CARTOONIST Work Phone: Start: 06-19-2023 Plain chest X-ray No Pr imary Care Physician Start: 06-19-2023 SARS-CoV-2, Influenz a & RSV (PCR) No Primary Care Physician Plan of Treatment Date Care Activity Detail Author Start: 11-06-2071 RSV Immunization for Adults (1 - 1-dose 75+ series) RSV Immunization for Adults (1 - 1-dose 75+ series) [facility] Start: 2046 Zoster Vaccines (1 of 2) Zoster Vaccines (1 of 2) [facility] Start: 10-28-2024 End: 10-28-2024 Patient encounter procedure 10/28/2024 10:20 AM EDT Office Visit [facility] [address] [facility] [address] [place] [address] Discharge Disposition: Home [facility] Start: 10-23-2024 End: 10-23-2024 Follow-up encounter 10/23/2024 10:20 AM EDT Follow-Up [facility] [address] [facility] [address] [place] [address] Anjel Duval PA-C [address] [facility] [address] [place] [address] [facility] Start: 10-20-2024 End: 10-20-2024 Patient encounter procedure 10/20/2024 10:20 AM EDT Office Visit [facility] [address] [facility] [address] [place] [address] Discharge Disposition: Home [facility] Start: 10-18-2024 Admission procedure [facility] Start: 10-18-2024 Hospital admission, emergency, from emergency room, medical nature [facility] Start: 10-18-2024 [facility] Start: 10-14-2024 End: 10-14-2024 Incision & drainage abscess simple/single INCISION AND DRAINAGE HEAD/NECK UNK 10/14/2024 10:09 AM EDT [facility] Start: 10-14-2024 End: 10-14-2024 Removal implant deep REMOVAL ARCHBAR UNK 10/14/2024 10:09 AM EDT [facility] Start: 10-13-2024 End: 10-13-2024 Admission to same day surgery center 10/13/2024 2:45 PM EDT - 10/13/2024 3:35 PM EDT Surgery [facility] [address] [place] [address] Marilou Vasquez MD [address] [place] [address] MAXILLOMANDIBULAR FIXATION SCREW REMOVAL [facility] Comment on above: MAXILLOMANDIBULAR FIXATION SCREW REMOVAL Start: 10-13-2024 End: 10-13-2024 Incision & drainage abscess simple/single INCISION AND DRAINAGE HEAD/NECK UNK 10/13/2024 2:45 PM EDT [facility] Start: 10-13-2024 End: 10-13-2024 Removal implant deep REMOVAL ARCHBAR UNK 10/13/2024 2:45 PM EDT [facility] Start: 10-12-2024 Influenza vaccination Influenza Vaccine (Season Ended) [facility] Start: 10-04-2024 End: 10-04-2024 Open tx comp fx malar w/internal fx&mult surg OPEN REDUCTION INTERNAL FIXATION MANDIBLE MAXILLA UNK 10/04/2024 7:25 AM EDT [facility] Start: 10-02-2024 Emergency department visit high/urgent severity EMERGENCY DEPT VISIT MOD MDM [facility] Start: 10-01-2024 Following clinical pathway protocol [facility] Start: 10-01-2024 Admission procedure [facility] Start: 10-01-2024 Assessment of risk of venous thromboembolism [facility] Start: 10-01-2024 Introduction of urinary catheter [facility] Start: 10-01-2024 Notification of physician [facility] Start: 10-01-2024 Oxygen therapy [facility] Start: 10-01-2024 Referral to service [facility] Start: 10-01-2024 Vital signs measurements [facility] Start: 10-01-2024 Provision of activity privileges [facility] Start: 10-01-2024 Verification routine [facility] Start: 10-01-2024 End: 10-01-2024 [facility] Start: 10-01-2024 Consultation [facility] Start: 10-01-2024 Patient discharge [facility] Start: 10-13-2023 COVID-19 Vaccine ( season) COVID-19 Vaccine () [facility] Start: 10-13-2023 Influenza vaccination Influenza Vaccine (#1) [facility] Start: 06-20-2023 [facility] Start: 05-01-2023 Following clinical pathway protocol [facility] Start: 05-01-2023 Assessment of risk of venous thromboembolism [facility] Start: 05-01-2023 Inhalation therapy procedure [facility] Start: 05-01-2023 Introduction of urinary catheter [facility] Start: 05-01-2023 Notification of physician [facility] Start: 05-01-2023 Oxygen therapy [facility] Start: 05-01-2023 Provision of activity privileges [facility] Start: 05-01-2023 Referral to service [facility] Start: 05-01-2023 Vital signs measurements [facility] Start: 05-01-2023 [facility] Start: 05-01-2023 Verification routine [facility] Start: 05-01-2023 Admission procedure [facility] Start: 05-01-2023 Hospital admission, emergency, from emergency room, medical nature [facility] Start: 05-01-2023 Patient discharge [facility] Start: 05-01-2023 [facility] Start: 03-23-2023 Patient discharge [facility] Start: 03-23-2023 Following clinical pathway protocol [facility] Start: 03-23-2023 Assessment of risk of venous thromboembolism [facility] Start: 03-23-2023 Notification of physician [facility] Start: 03-23-2023 Provision of activity privileges [facility] Start: 03-23-2023 Vital signs measurements [facility] Start: 03-23-2023 [facility] Start: 03-23-2023 Gamma glutamyl transferase measurement [facility] Start: 03-23-2023 Prothrombin time [facility] Start: 03-23-2023 Admission procedure [facility] Start: 08-07-2022 Patient discharge [facility] Start: 08-05-2022 Following clinical pathway protocol [facility] Start: 08-05-2022 Ambulation without limitation [facility] Start: 08-05-2022 Assessment of risk of venous thromboembolism [facility] Start: 08-05-2022 Catheterization of vein [facility] Start: 08-05-2022 Insertion of catheter into peripheral vein [facility] Start: 08-05-2022 Providing care according to standard [facility] Start: 08-05-2022 Referral to service [facility] Start: 08-05-2022 [facility] Start: 08-05-2022 Verification routine [facility] Start: 08-05-2022 Admission procedure [facility] Start: 08-05-2022 [facility] Start: 11-06-2015 DTaP/Tdap/Td Vaccines (1 - Tdap) DTaP/Tdap/Td Vaccines (1 - Tdap) [facility] Start: 11-06-2015 Hepatitis B Vaccines (1 of 3 - 19+ 3-dose series) Hepatitis B Vaccines (1 of 3 - 19+ 3-dose series) [facility] Start: 11-06-2015 Pneumococcal Vaccine: Pediatrics (0 to 5 Years) and At-Risk Patients (6 to 49 Years) (1 of 2 - PCV) Pneumococcal Vaccine: Pediatrics (0 to 5 Years) and At-Risk Patients (6 to 49 Years) (1 of 2 - PCV) [facility] Start: 2014 Hepatitis C screening Hepatitis C Screening [facility] Start: 2009 Varicella vaccination Varicella Vaccines (1 of 2 - 13+ 2-dose series) [facility] Start: 2008 Depression Screening Depression Screening [facility] Start: 1997 MMR Vaccines (1 of 1 - Standard series) MMR Vaccines (1 of 1 - Standard series) [facility] Start: 1996 HIV screening HIV Screening [facility] Amphetamines [Presen ce] in Urine by Screen method >1000 ng/mL [facility] Anion gap in Serum o r Plasma [facility] Bacteria identified in Blood by Culture Blood Culture Aerobic/Anaerobic Microbiology [facility] 10/12/2024 4:45 PM EDT [facility] Work Phone: Benzodiazepine measurement, urine [facility] BUN/Creatinine ratio [facility] Calcium [Mass/volume ] in Serum or Plasma [facility] Carbon dioxide, tota l [Moles/volume] in Central venous blood [facility] Cocaine measurement, urine [facility] Creatinine [Mass/vol ume] in Serum or Plasma [facility] Ethanol [Mass/volume ] in Serum or Plasma [facility] fentaNYL [Presence] in Urine by Screen method [facility] Gamma glutamyl transferase measurement [facility] Glucose [Mass/volume ] in Serum or Plasma [facility] INR in Blood by Coagulation assay [facility] Measurement of renal function [facility] Methadone measuremen t, urine [facility] Patient Education [facility] Work Phone: Patient referral [facility] Work Phone: Phencyclidine [Prese nce] in Urine [facility] Potassium measurement [facility] Serum chloride measurement [facility] Sodium measurement [facility] Urea nitrogen [Mass/volume] in Serum or Plasma [facility] Urine cannabinoid measurement [facility] Urine opiate measurement [facility] [place] End: 10-02-2024 US Abdomen limited [facility] Work Phone: Comment on above: Once for 1 Occurrences starting 10/03/19 until 10/02/2024 Immunizations Immunization Date Immunization Notes Care Provider Sumi fenton 10-02-2024 tetanus toxoid, redu anshul diphtheria toxoid, and acellular pertussis vaccine, adsorbed No Primary Care Physician [facility] Payers Date Payer Category Payer Self-pay 2023 Medicaid (Managed Care) [employer] MGD MEDICAID [id number] 2023 Medicaid HMO [employer] ODM [id number] 2023 Private Health Insurance [id number] 1996 Unknown [id number]. 627 1996 Unknown [id number] [id number]. 204 1996 Unknown [id number] [id number]. 651 1996 Unknown [id number] 2.16840.1.112434.3.579.2. 651 1996 Unknown [id number] 2.16840.1.854337.3.579.2. 651 1996 Unknown [id number] 2.16.840.1.698216.3.579.2. 902 1996 Unknown [id number] 2.16.840.1.638694.3.579.2. 902 1996 Unknown [id number] 2.16.840.1.401324.3.579.2. 902 1996 Unknown [id number] 2.16.840.1.251066.3.579.2. 902 1996 Unknown [id number] 2.16.840.1.300990.3.579.2. 902 1996 Unknown [id number] 2.16.840.1.905967.3.579.2. 902 Unknown [id number] 2.16.840.1.909639.3.579.2. 462 Unknown [id number] 2.16.840.1.433314.3.579.2. 462 Unknown [id number] 2.16.840.1.035661.3.579.2. 462 Unknown [id number] 2.16.840.1.741186.3.579.2. 462 Unknown [id number] [id number]. 462 Social History Date Type Detail Facility Start: 08-05-2022 End: 06-19-2023 Tobacco smoking status NMIS Unknown if ever smoked [facility] Start: 1995 Sex Assigned At Male [facility] Start: 06-20-2023 Tobacco smoking status Light tobacco smoker (finding) [facility] Start: 1995 Sex assigned at Not on file [facility] Start: 01-28-2024 Sex Male (finding) [facility] Start: 06-11-2024 End: 10-12-2024 Gender identity Not on file [facility] Start: 06-11-2024 End: 10-12-2024 History of Social function [facility] How often to you hav e a drink containing alcohol? 4 or more times a week [facility] How many standard dr inks containing alcohol do you have on a typical day? 7 to 9 [facility] How often do you hav e 6 or more drinks on 1 occasion? Daily or almost daily [facility] Start: 10-01-2024 End: 10-18-2024 Tobacco smoking status NHIS Smokes tobacco daily (finding) [facility] History of tobacco use Cigarette Smoker [facility] Start: 10-02-2024 Tobacco use and exposure Smokeless tobacco non-user [facility] Start: 10-04-2024 End: 10-14-2024 Alcoholic beverage intake Current drinker of alcohol (finding) [facility] Has the [employer], or [employer] threatened to shut off services in your home in past 12Mo Yes [facility] Within the last year , have you been afraid of your partner or ex-partner? No [facility] (I/We) worried [facility] (my/our) food would run out before (I/we) got money to buy more. Often true [facility] In the past 12 month s, has lack of transportation kept you from medical appointments or from getting medications? Yes [facility] Start: 10-02-2024 Alcohol Comment 15-20 tall boys daily, last drink yesterday - 10/02/24 [facility] Start: 10-12-2024 Alcohol Comment 5 tall boys daily, last drink today [facility] Medical Equipment Procedure Code Equipment Code Equipment Origin al Text Equipment Identifier Dates Sealant 5ml Hemostatic Matrix Fast Prep Floseal W/ Recothrom - [id number] Start: 10-04-2024 Powder 3gm Hemostatic Perclot 9cm Std Tip - [id number] Start: 10-04-2024 Screw 2 X 12mm M mf Self-Drill - [id number] Start: 10-04-2024 Screw 2 X 8mm Mm f Self-Drill - [id number] Start: 10-04-2024 Screw 2 X 12mm M mf Self-Drill - [id number] Start: 10-14-2024 Goals Date Patient Goal Desired Activity /State Functional Status Date Assessment Result Facility 10-01-2024 Functional status Up ad [place] [facility] Work Phone: 06-20-2023 Functional Status Door open, Room check performed [facility] 06-20-2023 Functional Status [facility] 06-20-2023 Functional Status Ambulation in Room [facility] 06-20-2023 Functional Status Anegl [facility] 06-20-2023 Functional Status [facility] 06-20-2023 [facility] 06-20-2023 Functional Status Environmental Safety Implemented Adequate room lighting, Bed in low position, Call device within reach [facility] 05-01-2023 Functional status Patient Activity Up ad [place] [facility] Work Phone: 03-23-2023 Functional status Activity Ability Indepe ndent [facility] Work Phone: 08-07-2022 Functional status Up ad [place] [facility] Work Phone: Mental Status Date Assessment Result Facility 10-18-2024 Cognitive function Level Of Cons ciousness Awake;Alert;Appropriate;Follow s Commands [facility] Work Phone: 10-02-2024 Cognitive function Voice/Name [facility] Work Phone: 10-01-2024 Cognitive function Voice/Name [facility] Work Phone: 06-20-2023 Mental Status Orientation Oriented x 4 [facility] 06-20-2023 Mental Status [facility] 06-20-2023 Mental Status [facility] 06-19-2023 Cognitive function Level Of Cons ciousness Awake;Alert;Appropriate [facility] Work Phone: 03-23-2023 Cognitive function Appropriate;Cooperativ e [facility] Work Phone: 08-07-2022 Cognitive function Voice/Name;Touch/Shaki ng [facility] Work Phone: Clinical Notes 08-05-2022 to 10-18-2024 Note Date & Type Note Facility 10-18-2024 Discharge summary [facility] 10-18-2024 Discharge summary Note Date/Time October 18, 2024 3:25pm [facility] Medical Records Department [address] [place] [address] Emergency Department Summary 10/18/24 MR#: [id number] Acct: [id number] Name: KADE GONZALEZ Rep #:[id number] : 1995 28 From: Bairon Clarke PCP: [...] reviewed, Vital signs reviewed Constitutional: please see [facility] HENT: MMM, surgical scars noted over left [...] History obtained from others: none Consults: none [facility] Narrative: Patient was initially hemodynamically stable, afebrile [...] Discharge home This note was generated with [employer] dictation software. It may contain incorrectwords, spelling, [...] Primary [Primary Care Provider] - Print Language: Lithuanian What to do if you have Problems For any increased pain, shortness of breath, bleeding, nausea or vomiting, chestpain, or any unexpected problems, contact your Primary Care Provider. Call [employer] ([phone]) or report to the closest Emergency Room. Call 911 if necessary. 10/18/24 1525 <Electronically signed by Bairon Dee DO> Cosigner Signature (if applicable): CC: No Primary Care Physician ~ Signed [facility] Work Phone: 1(731) 481-155809-03-2025 Plan of care note* Plan of Care [...] returned? N/a Chart removed from folder? yes [id number] Miscellaneous Notes* Plan of Care - Arnie [...] (28 y.o.) Date of Service: 10/14/2024 CSN: [id number] Procedure(s): MAXILLOMANDIBULAR FIXATION SCREW REMOVAL LEFT MANDIBLE INCISION AND DRAINAGE Pre-Operative Diagnoses: * UNK Post-Operative Diagnoses: Surgeons and Role: * Marilou Vasquez MD - Primary Anesthesiologist: Papa Albrecht MD AUTOMATIC HEAD SAWYER: Leia Fernandez CRNA Cytogenetics Technologist: Lauren Becerra RN Scrub Person Relief: Shani Maria ST Anesthesia Specialist: Devon Cintron Car Rental Manager: Luis Alberto Beckwith Scrub Person Preceptor: Thao Carson ST Operative findings: seroma/hematoma, no abscess, MMF screws removd Intra and immediate post-operative complications: none Type of anesthesia used: General Estimated blood loss: 10 mL Estimated urine output: Specimen(s): * No specimens in log * Implant(s): Implant Name Type Inv. Item Serial No. Payroll Lead Lot No. LRB No. Used Action SCREW 2 X 12MM MMF SELF-DRILL - [id number] SCREW 2 X 12MM MMF SELF-DRILL CROW [...] - 10/14/2024 10:42 AM EDT Kade Gonzalez [id number] 1995 Attending: Marilou Vasquez MD Sort Operations Supervisor: Beverley Shepherd MD Pre Procedure Diagnosis: History [...] operative complication were discussed with the consenting green party before surgery. Anesthesia: General Complications: None [...] sign off at this time. Please call [phone] for questions/concerns and we can determine if [...] application on 10/04. Presented multiple times to [facility] since with jaw pain, swelling and concern [...] Intake/Output Summary (Last 24 hours) at 10/13/2024 013 Last data filed at 10/12/20242007 Gross per [...] N/A Does this match pharmacy listed with ELECTRICAL SYSTEMS DESIGNER: No Plan for discharge reviewed: Yes How will patient get home: Needs a ride Reviewed call light process: Yes AMPAC completed under [facility] Basic Mobility Short Form: Yes 4 eyes completed, documented, & witnessed : Yes Patient on tele? No Tele Number: n/a documented in this [id number] Progress note* Quick Note - Arnie Akins RN - 10/14/2024 2:52 PM EDT Arrangements by MESSI and NADIA team made, pt able to antoine diet. DC criteria met [id number] NoteGRANT TRAUMA and ACUTE CARE SURGERY TRAUMA [...] home Outpatient PT/OT/ST: PT , OT , INCUBATOR TENDER Inpatient Consults: Procedures Consult Plastic Surgery Consult [...] . Do not swallow naloxone 4 mg/actuation [place] Commonly known as: NARCAN Administer 1 spray into one nostril for known or suspected opioid overdose. If patient worsens or does not respond, may repeat in 2-3 minutes. . Where to Get Your Medications These medications were sent to [facility] [address] [place] [address] Hours: 8:30 AM to 5:00 PM Mon-Fri acamprosate 333 mg tablet You can get these medications from any pharmacy Bring a paper prescription for each of these medications amoxicillin-clavulanate 400-57 mg/5 mL suspension Diet: Diet NPO Except: SIPS WITH MEDS Follow-up Appointments / Plans: Marilou Vasquez MD [address] [facility] [address] [facility] [address] Follow up in 1 week(s) Call to obtain follow up appointment after discharge Time spent on discharge: > 30 minutes CHIEF COMPLAINT/ HPI / PFSHx / EVENTS OVER LAST 24HRS: Please see today's progress note for CC, ROS, and PE. AUTHENTICATED BY DAISY HAMPTON, ON 10/14/2024 11:44:48[facility] 10-14-2024 Hospital course Narrative* Daisy Hampton, [facility] - 10/14/2024 11:43 AM EDT [place] TRAUMA and ACUTE CARE SURGERY TRAUMA [...] home Outpatient PT/OT/ST: PT , OT , INCUBATOR TENDER Inpatient Consults: Procedures Consult Plastic Surgery Consult [...] . Do not swallow naloxone 4 mg/actuation [place] Commonly known as: NARCAN Administer 1 spray into one nostril for known or suspected opioid overdose. If patient worsens or does not respond, may repeat in 2-3 minutes. . Where to Get Your Medications These medications were sent to [facility] [address] [place] [address] Hours: 8:30 AM to 5:00 PM Mon-Fri acamprosate 333 mg tablet You can get these medications from any pharmacy Bring a paper prescription for each of these medications amoxicillin-clavulanate 400-57 mg/5 mL suspension Diet: Diet NPO Except: SIPS WITH MEDS Follow-up Appointments / Plans: Marilou Vasquez MD [address] [place] [address] Follow up in 1 week(s) Call to obtain follow up appointment after discharge Time spent on discharge: > 30 minutes CHIEF COMPLAINT/ HPI / PFSHx / EVENTS OVER LAST 24HRS: Please see today's progress note for CC, ROS, and PE. documented in this [id number] NotePlastic Surgery Plan of Care Kade Gonzalez [...] MD AUTHENTICATED BY BEVERLEY SHEPHERD, ON 10/14/2024 11:05:[address] [place] [address] 10-14-2024 Procedure note* Brief Op Note - Beverley Shepherd MD - 10/14/2024 11:03 AM EDT Brief Post Operative Note Patient Name: Kade Gonzalez : 1995 (28 y.o.) Date of Service: 10/14/2024 CSN: [id number] Procedure(s): MAXILLOMANDIBULAR FIXATION SCREW REMOVAL LEFT MANDIBLE INCISION AND DRAINAGE Pre-Operative Diagnoses: * UNK Post-Operative Diagnoses: Surgeons and Role: * Marilou Vasquez MD - Primary Anesthesiologist: Papa Albrecht MD AUTOMATIC HEAD SAWYER: Leia Fernandez CRNA Cytogenetics Technologist: Lauren Becerra RN Scrub Person Relief: Shani Maria ST Anesthesia Specialist: Devon Cintron Car Rental Manager: Luis Alberto Beckwith Scrub Person Preceptor: Thao Carson ST Operative findings: seroma/hematoma, no abscess, MMF screws removd Intra and immediate post-operative complications: none Type of anesthesia used: General Estimated blood loss: 10 mL Estimated urine output: Specimen(s): * No specimens in log * Implant(s): Implant Name Type Inv. Item Serial No. Payroll Lead Lot No. LRB No. Used Action SCREW 2 X 12MM MMF SELF-DRILL - [id number] SCREW 2 X 12MM MMF SELF-DRILL CROW [...] NO Beverley Shepherd MD 10/14/2024 11:03 AM [id number] History of Present illness Narrative* Beverley Shepherd [...] week Beverley Shepherd MD * Daisy Hampton, [facility] - 10/14/2024 8:35 AM EDT DAVID PROGRESS [...] application on 10/04. Presented multiple times to [facility] since with jaw pain, swelling and concern [...] of 0.73 mg/dL).): Lovenox * Marilou Chen RPh,PharmD - 10/12/2024 4:44 PM EDT PHARMACOTHERAPY NOTE: [...] 1 Encounters: 10/08/24 79.4 kg (175 lb) Dawson body weight: 75.3 kg (166 lb 0.1 [...] Pending Pharmacist: Marilou Chen RPh,PharmD Contact Number: [facility] ([phone]) or Secure Chat documented in this [id number] Procedure note* Op Note - Marilou Vasquez MD - 10/14/2024 10:42 AM EDT Kade Gonzalez [id number] 1995 Attending: Marilou Vasquez MD Sort Operations Supervisor: Beverley Shepherd MD Pre Procedure Diagnosis: History [...] operative complication were discussed with the consenting green party before surgery. Anesthesia: General Complications: None [...] PACU following the surgery without any issues. [facility] Work Phone: 1(573) 313-282809-03-2025 NoteGRANT PROGRESS NOTE MECHANISM OF INJURY: Remote [...] application on 10/04. Presented multiple times to [facility] since with jaw pain, swelling and concern [...] Lovenox AUTHENTICATED BY DAISY HAMPTON, ON 10/14/2024 08:36:44[facility] 10-13-2024 Progress note* Quick Note - Ashli Mendes RN - 10/13/2024 10:55 PM EDT Patient refusing an IV at this time, states he just doesn't want it right now. Explained to patientthat he will need to have an IV in the morning and was agreeable to get an IV around 3am vitals. [id number] Progress note* Sign Off Note - Esme [...] sign off at this time. Please call [phone] for questions/concerns and we can determine if new consult needs placed for further evaluation. 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 - Last use 10/07 -Educated pt about risks with continued use and education about harm reduction - Recommend [facility] level of care or higher, appreciate SUN team assistance in linkage - Encouraged to not share paraphernalia [id number] Evaluation + Plan note* Assessment & Plan [...] diaphoresis, and active hallucinations ) -Seizure precautions [id number] Evaluation + Plan note* Assessment & Plan [...] enhanced absorption and prevention of Wernicke's Encephalopathy [id number] Consult note* Makenna Bridges RN - 10/13/2024 11:37 AM EDT Date: 10/13/2024 Time: 11:38 AM Patient Name: Kade Gonzalez Date of : 1995 Reason for Consult: Discharge Plan Discussion: Met with patient at bedside. Introduced self and role. No PCP. Patient currently homeless; not staying at a long-term. Does not want information on shelters in [place]; wants to be dc'd to rehab facility. [...] Current Home Equipment: None Caregiver Assessment: SDOH: [id number] Consult note* Makenna Bridges RN - 10/13/2024 11:37 AM EDT Date: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 Anti-platelet Rx: No If yes, list time of reversal agents provided prior to transfer: NA Open Fracture Coverage: Zosyn INJURIES/MEDICAL PROBLEMS: Open bilateral mandible fracture Lfkdqmwm-is-[place] communication has occurred between the on-call Transfer Center [facility] and the following referring provider: REFERRING PROVIDER INFORMATION: Provider: Dr. Colin Colon Referring Facility: [facility] Department: ED The patient will be accepted by the trauma attending/team at the following facility: ACCEPTING PHYSICIAN INFORMATION: Accepting Facility: [facility] Destination: ED HPI/REPORTED PHYSICAL EXAM [...] information in this note is obtained via nibktvji-dl-gimmosnp communication and/or chart reviewwhen available. This patient has not been evaluated or examined by the author. All outside images and reports have been requested to be sent. Recommendations made by [facility]: None If you have any questions about this referral note, you may contact the Trauma Transfer Center [facility] at . Holli Amaya CNP 7:10 AM 10/02/24 [id number] Discharge summary [facility] Medical Records Department [address] [place] [address] Emergency Department Summary 10/02/24 MR#: [id number] Acct: [id number] Name: KADE GONZALEZ Rep #:[id number] : 1995 28 From: Colin Colon DO [...] case was discussed with ENT on-call Dr. Rdoriguez. He states that these typically need surgical plating as wellas oral maxillofacial surgery to wired the jaw shut. He states we do not have the tools necessary to perform that at this center and recommends transfer to a trauma center. The patient was informed of this and states he would prefer to go to [place] versus [place] or [place]. Therefore the case was discussed withDr. Parekh at [facility]. He agrees to accept the [...] 76.7 H Lymph % (Auto) 14.6 L Carlton % (Auto) 7.1 Eos % (Auto) 0.5 [...] be considered as clinically warranted. Reading Location: [place] [address] 10/02/24 05:15 IMPRESSION: Soft tissue emphysema in the left aspect of the neck. No CT evidence of an acute fracture or dislocation. [facility] Facial/Sinus 10/02/24 05:15 IMPRESSION: Mandibular right para-symphyseal and left mandibular angle/body fractures with related soft tissue edema and possible left master intramuscular hematoma as detailed. Reading Location: [place] [address] Management Discussion w/another healthcare provider: Technical Support Specialist Discharge Plan Triage Chief Complaint: Head Injury ED Provider: Colin Colon Dx/Rx/DC Orders Clinical Impression: Mandible open fracture, History of alcohol abuse, Tobacco use, Alcohol abuse Prescriptions: No Action NK Primary Care Provider: Care Physician,No Primary Referrals: Care Physician,No Primary [Primary Care Provider] - Print Language: Lithuanian Disposition Disposition: Acute Care Hospital Discharge Location: [facility] What to do if you have Problems For any increased pain, shortness of breath, bleeding, nausea or vomiting, chestpain, or any unexpected problems, contact your Primary Care Provider. Call [facility] [employer] [facility] ([phone]) or report tothe closest Emergency Room. Call 911 if necessary. 10/02/24 9400 Cosigner Signature (if applicable): CC: No Primary Care Physician ~ Signed [facility] [id number] [facility] Medical Records Department [address] [place] [address] Discharge Summary 10/02/2414 MR#: [id number] Acct: [id number] Name: KADE GONZALEZ Rep #: [id number] : 1995 28 From: Rachel Stephen MD PCP: Care Physician,No Primary Status:DIS IN Location: [facility] YE113-5 Providers Date of Admission: 10/01/24 Date of [...] Advice Charges/Coding Visit Charges Inpatient E M: 97889 Disch Hosp >30min 10/02/24 0716 Cosigner Signature (if applicable): CC: Dr. Rachel Stephen MD; No [facility] Radiology Diagnostic study note [facility] Imaging Services [address] [place] [address] Sinus/Facial Bone MR#: [id number] Acct: [id number] Name: KADE GONZALEZ Rep #: [id number] : 1995 M 28 From: Olivier Colmenares MD PCP: Care Physician,No Primary Status: REG ER Study:Sinus/Facial Bone Date of Exam: Exam# [id number] Ordering Dr: Anjali Colon DO PROCEDURE: SINUS/FACIAL [...] master intramuscular hematoma as detailed. Reading [facility] CC: Colin Colon DO; No Primary Care Physician ~ City Collector: Signed [facility]08-22-2025 Radiology Diagnostic study note [facility] Imaging Services [address] [place], [place] [address] Spine Cervical without Contras MR#: [id number] Acct: [id number] Name: KADE GONZALEZ Rep #: [id number] : 1995 M 28 From: Olivier Colmenares MD PCP: Care Physician,No Primary Status: REG ER Study:Spine Cervical without Contras Date of Exam: 10/02/24 Exam# [id number] Ordering Dr: Anjali Colon DO PROCEDURE: SPINE [...] an acute fracture or dislocation. Reading Location: [place] [address] CC: Colin Colon DO; No Primary Care Physician ~ City Collector: Signed [facility]08-22-2025 Radiology Diagnostic study note [facility] Imaging Services [address] [place] [address] Brain/Head without Contrast MR#: [id number] Acct: [id number] Name: KADE GONZALEZ Rep #: [id number] : 1995 M 28 From: Olivier Colmenares MD PCP: Care Physician,No Primary Status: REG ER Study:Brain/Head without Contrast Date of Exa m: 10/02/24 Exam# [id number] Ordering Dr: Anjali Colon DO PROCEDURE: BRAIN/HEAD [...] be considered as clinically warranted. Reading Location: [place] [address] CC: Colin Colon DO; No Primary Care Physician ~ City Collector: Signed [facility]08-21-2025 Progress note Author Rachel Stephen [facility] Note Date/Time October 01, 2024 9: 38am [facility] Medical Records Department [address] [place] [address] Progress Note - Hospitalist 10/01/24 0934 MR#: [id number] Acct: [id number] Name: KADE GONZALEZ Rep #:[id number] : 1995 28 From: Rachel Stephen MD PCP: Care Physician,No Primary Status :ADM IN Location: [place] 408318-1 Reason for Visit Chief Complaint: EtOH Detoxification. [...] Multi Select Codes Visit Charges Visit Charges: 31269 PROLNG IP/OBS E/M EA 15 MIN 10/01/24 0938 <Electronically signed by Rachel Stephen MD> Cosigner Signature (if applicable): CC: ~ Signed [facility] Work Phone: 1(756) 255-469208-21-2025 Progress note [facility] Medical Records Department [address] [place] [address] Progress Note - Hospitalist 10/01/24 0934 MR#: [id number] Acct: [id number] Name: KADE GONZALEZ Rep #:[id number] : 1995 28 From: Rachel Stephen MD PCP: Care Physician,No Primary Status :ADM IN [facility] Reason for Visit Chief Complaint: EtOH Detoxification. [...] Multi Select Codes Visit Charges Visit Charges: 35738 PROLNG IP/OBS E/M EA 15 MIN 10/01/24 0972 Cosigner Signature (if applicable): CC: ~ Signed [facility]08-21-2025 History and physical note Author Jacquie Beckwith [facility] Note Date/Time October 01, 2024 2: 22am [facility] Medical Records Department [address] [place] [address] H&P Exam - Hospitalist 10/01/24 0151 MR#: [id number] Acct: [id number] Name: KADE GONZALEZ Rep #:[id number] : 1995 28 From: Jacquie Beckwith MD PCP: Care Physician,No Primary Status :ADM IN Location: [facility]3 ZU888-3 HPI - General General Date of Admission: [...] for court date with then referral to [address] [place] [address] EtOH rehab facility; however, unfortunately instead of [...] for transition to avoid alcohol withdrawal symptoms. [facility] Medical History Substance abuse Depression [...] x 3 and cooperative, seated upright in PR bed, denies any alcohol withdrawal symptoms. Skin: [...] desired EtOH detoxification admission prompting transition to [facility]. #1. EtOH Abuse with Impending Acute EtOH Withdrawal: Will admit to PR, routine labs obtained in the OSH ED. Given interest in sobriety, will admit to MS, will initiate and continue on protocol with taper course of Phenobarbital, as needed gabapentin, Catapres, Bentyl, Vistaril, IV fluids, IV antiemetics, Tylenol as needed for pain. Will consult Case management for assistance for transition to next level of rehabilitation care (6-12 [facility] which per OSH ED is already set-up/patient [...] encourage ambulation. Charges/Coding Visit Charges Inpatient E&M: 50549 Init Hosp L2 10/01/24 0222 <Electronically signed by Jacquie Beckwith MD> Cosigner Signature (if applicable): CC: Dr. Jacquie Beckwith MD; No Primary Care Physician~ Signed [facility] Work Phone: 1(556) 313-253508-21-2025 Evaluation note* Diagnosis Onset Date Resolution Status Admit Date Admitted to alcohol detoxification center acute September 12:22am [facility] Work Phone: 1(756) 511-440108-21-2025 History and physical note [facility] Medical Records Department [address] [place] [address] H&P Exam - Hospitalist 10/01/24 0151 MR#: [id number] Acct: [id number] Name: DAISYKADECATINA REYNOLDS Rep #:[id number] : 1995 28 From: Jacquie Beckwith MD PCP: Care Physician,No Primary Status :ADM IN Location: [facility]3 JZ660-3 HPI - General General Date of Admission: [...] presenting for courtdate with then referral to [address] [place] [address] EtOH rehab facility; however, unfortunately instead of [...] back of the scalp. Work-up in the [facility] ED 09/30/2024 included VS 130/77, AF, HR [...] for transition to avoid alcohol withdrawal symptoms. [facility] Medical History Substance abuse Depression [...] x 3 and cooperative, seated upright in PR bed, denies any alcohol withdrawal symptoms. Skin: [...] desired EtOH detoxification admission prompting transition to [facility]. #1. EtOH Abuse with Impending Acute EtOH Withdrawal: Will admit to [facility], [facility] Given interest in sobriety, will admit to PR, will initiate and continue on protocol with taper course of Phenobarbital, as needed gabapentin, Catapres, Bentyl, Vistaril, IV fluids, IV antiemetics, Tylenol as needed for pain. Will consult Case management for assistance for transition to next level of rehabilitation care (6-12 [facility] which per OSH ED is already set-up/patient [...] encourage ambulation. Charges/Coding Visit Charges Inpatient E&M: 14925 Init Hosp L2 10/01/24 0222 Cosigner Signature (if applicable): CC: Dr. Jacquie Beckwith MD; No Primary Care Physician~ Signed [facility]05-01-2025 Emergency department Note* Tash Burt RN - 06/11/2024 7:20 AM EDT Report given to Holli AVENDAÑO. [facility]42-57-7935 Emergency department Note* Tash Burt RN - 06/11/2024 7:20 AM EDT Report given to Holli AVENDAÑO. * Tash Burt RN - 06/11/2024 5:08 AM EDT Pt ambulated independently back and forth to the restroom. 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 Pt currently on shelter monitor; sts that the pain starts in [...] - Normal ETHANOL IN SER/PLAS <10 Narrative: FURNACE COMBUSTION TESTER depression is seen >100 mg/dL. NOTE: This [...] Bae CNP 06/11/24 0659 documented in this [facility]05-01-2025 Emergency department Note* Tash Burt RN - 06/11/2024 5:08 AM EDT Pt ambulated independently back and forth to the restroom. 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 Pt currently on shelter monitor; sts that the pain starts in the L shoulder and radiates into the neck and then jaw. [facility]ukcd29-21-8750 Emergency department Note* Tash Burt RN - 06/11/2024 4:38 AM EDT Pt heading to xray with transport. [facility]ptlq14-04-8055 Physician Emergency department Note* SHAYLEE Bae CNP [...] History Socioeconomic History Marital status: Single SCREENINGS Clymer Coma Scale Best Eye Response: Spontaneous Best Verbal Response: Oriented Best Motor Response: Follows commands Clymer Coma Scale Score: 15 HEART Score History: [...] - Normal ETHANOL IN SER/PLAS <10 Narrative: FURNACE COMBUSTION TESTER depression is seen >100 mg/dL. NOTE: This [...] freeto contact the dictating provider for clarification.) Easton Dahl APRN - VENDOR RELATIONSHIP MANAGER (electronically signed) Emergency Medicine Provider SHAYLEE Bae CNP 06/11/24 0659 [facility]viepg24-59-0040 Emergency department Note* Daina Chung RN - 06/10/2024 10:50 PM EDT Pt did not want to wait to be seen. Pt seen walking out of ED. Pt A&OX4. Steady gait noted. No IV access obtained during visit. [id number] Emergency department Note* Daina Chung RN - [...] Barcenas PA-C 06/11/24 0118 documented in this [place] [address]-30-2025 Emergency department Triage note* Danita Guevara RN - 06/10/2024 10:37 PM EDT Pt states he called poison control due to mixing alcohol and ice. Pt states he has been drinking beer all day. [id number] Phys[facility] Emergency department Note* Danita Barcenas PA-C - 06/10/2024 10:21 PM EDT Patient left without being seen after initial triage by nursing staff. As such, I did not participate in the care of this patient. Danita Barcenas PA-C 06/11/24 0118 [facility] Work Phone: 1(312) 140-251512-17-2024 History of Present illness Narrative* SHAYLEE Burch NP - 01/28/2024 2:00 PM EST Images from the original note were not included. [facility] URGENT CARE [facility] [address] [place] [address] Dept: [phone] Dept Loc: [phone] Subjective Kade Barrera is a 28 y.o. [...] forclarification) ALAINA Burch 01/28/24 documented in this [facility]05-09-2024 Hospital Discharge instructions Patient Education 06/20/2023 19:08:45 Alcohol Withdrawal Syndrome, Mcao-jr-Xwbs Alcohol Withdrawal Syndrome When a person who [...] away. Follow these instructions at home: Take ctie-iqe-ncjfgct and prescription medicines only as told by [...] 07/16/2008 Document Revised: 01/10/2018 Document Reviewed: 10/04/2017 [employer] Patient Education 2020 [employer]. 06/20/2023 02:18:58 Seizure, New Onset, Unknown Cause [...] told. 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 [address] [place] [address], [place] [address]. All rights reserved. This information is not intended as a substitute for professional medical care. Always follow yourhealthcare professional's instructions. Follow Up Care 06/20/2023 02:07:45 With:YUKI DECKER DO Address: [address] [place] [phone]- [phone] When: Unknown Comments:Please follow-up for your post-hospital follow-up appointment. [facility] 05-09-2024 Note Discharge Instructions Thank [...] follow-up for your post-hospital follow-up appointment. Where: [address] [place] [phone] The Following Activity and Diet Have Been [...] What is chlordiazepoxide? Chlordiazepoxide is a benzodiazepine (fxl-may-nku-AZE-eh-peen) that is used to treat anxiety disorders. [...] may report side effects to FDA at 2-236-ENJ-1763. What other drugs will affect chlordiazepoxide? Using chlordiazepoxide with other drugs that make you sleepy or slow your breathing can cause dangerous side effects or . Ask your doctor before using opioid medication, a sleeping pill, a muscle relaxer, or medicine for anxiety or seizures. Other drugs may affect chlordiazepoxide, including prescription and piyc-vbu-wwpjrxs medicines, vitamins, and herbal products. Tell your [...] to ensure that the information provided by [employer]. ('[employer]') is accurate, up-to-date, and complete, but no guarantee is made to that effect. Drug information contained herein may be time sensitive. [employer] information has been compiled for use by healthcare practitioners and consumers in the [place] and therefore [employer] does not warrant that uses outside of the [place] are appropriate, unless specifically indicated otherwise. [employer] drug information does not endorse drugs, diagnose patients or recommend therapy. [employer] drug information isan informational resource designed to [...] effective or appropriate for any given patient. [employer] does not assume any responsibility for any aspect of healthcare administered with the aid of information [employer] provides. The information contained herein is not intended to cover all possible uses, directions, precautions, warnings, drug interactions, allergic reactions, or adverse effects. If you have questions about the drugs you are taking, check with your doctor, nurse or pharmacist. Copyright 6228-1434 [employer]. Version: .. Revision Date: 09/12/2022. Education Materials Alcohol Withdrawal [...] away. Follow these instructions at home: Take cyba-dnx-jfokcdt and prescription medicines only as told by [...] 07/16/2008 Document Revised: 01/10/2018 Document Reviewed: 10/04/2017 [employer]is Patient Education 2020 [employer]. Seizure: New Onset with Unknown Cause [...] told. 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 [address] [place] [address], [place] [address]. All rights reserved. This information is not intended as a substitute for professional medical care. Always follow yourhealthcare professional's instructions. Additional Information VACCINATE! IT SAVES LIVES! Members of the community who have not yet received the COVID-19 vaccine and would like to receive it can visit one of [facility] vaccine clinics. There are many vaccine clinic locations within the [facility]. For locations and available times, please visit https://gettheshot.coronavirus.[place].gov/. It is important to note that some COVID mobile vaccine clinics are held outdoors and may be canceled in rainy or stormy conditions. To learn more about pediatric vaccinations (ages 5-11), we invite you to visit the [facility] webpage. https://www.[facility].org/pages/1988-Labgf-Zowkluycuze-Yarvdcgclx-Wwuba-Bda stions.htmlTo learn more about the COVID-19 vaccine, we invite you to visit the CDC website for a list of frequently asked questions.https://www.cdc.gov/coronavirus/2019-ncov/vaccines/faq.html [facility] Patient Portal Access Instructions: Stay connected with your healthcare team and access your personal medical information anytime with the [facility] Patient Portal. Please follow the directions below to create your [facility] account: 1.Access the email account you provided upon registration to the hospital/physician office.2.Look for an invitation email from [facility].3.Open the email and access the invitation link: AcceptInvitation to [facility].4.Fill in the required emmanuel to create your account. To access your account, visit [employer]. Click the blue button labeled Access Patient [...] who you will allowto register on the [facility] Patient Portal for access to your information. You can also access the [facility] [facility] Patient Portal on the [employer] pura. Simply click on Patient Portal and then log into your account. If you would like to receive a full copy of your medical records, please contact the [facility] Medical Records Department by calling [phone], Saturday through Saturday between 8 a.m. and [...] Call your local pharmacy or go to http://Sporterpilot.4vets/6O4Sd4a to find one close to you.3.Make use of household items: Use cat litter or old coffee grounds to dispose medications if other options arenot available. Mix your drugs with these household products, seal them in an airtight container andthrow it into the garbage. Call [facility]: [phone] to be sure your drugs can be [...] Signatures Patient Education Materials Alcohol Withdrawal Syndrome, Vfut-to-Bdlp Seizure, New Onset, Unknown Cause (Adult) Medication Leaflets chlordiazePOXIDE My discharge plan and instructions have been reviewed and explained to me and I,KADE GONZALEZ understand my current condition and have read and understand these discharge instructions. I havereceived a written copy of the plan/instructions. If I have questions, I am aware that I should contact my doctor. 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 Patient presented to [facility] emergency department on 06/20/2023 after possible seizure. Patient was at [facility] ED earlier in the day with chest [...] ANA MARIA PEREZ on 06/20/2023 02:41 PM [facility]05-09-2024 Evaluation + Plan noteExtracted from: [...] and may include grammatical and/or spelling errors. [facility] 05-09-2024 Note ORIGINAL EXAMINATION: ONE [...] Sign Date: 06/20/2023 3:12:39 AM Ordering Provider: [facility]05-09-2024 Note ORIGINAL EXAMINATION: CT OF THE CERVICAL [...] Sign Date: 06/20/2023 3:20:14 AM Ordering Provider: [facility]05-09-2024 Note ORIGINAL EXAMINATION: CT OF THE HEAD [...] Date: 06/20/2023 3:18:15 AM [facility] NoteSinus tachycardia Electronic Signature: MICHAEL PADRON DO 06/20/2023 02:28:09[facility] 05-08-2024 Discharge summary Author Carmelo Mccray [facility] June 20, 2023 12:34am Note Date/Time June 19, 2023 9:50pm [facility] Medical Records Department [address] [place] [address] Emergency Department Summary 06/19/23 MR#: [id number] Acct: [id number] Name: KADE GONZALEZ Rep #:[id number] : 1995 27 From: Carmelo Clarke PCP: [...] his symptoms betterand nothing makes them worse. [facility] Medical History Alcohol abuse Alcohol [...] % (Auto) 60.8 Lymph % (Auto) 28.9 Carlton % (Auto) 8.4 Eos % (Auto) 0.6 [...] sinus rhythm with a rate of 75. NC interval, QRS interval, and QTc intervals were all normal. Winder was normal. There are no acute ST [...] your Primary Care Provider. Call [facility] ([phone]) or report to the closest Emergency Room. Call 911 if necessary. 06/20/2333 <Electronically signed by Carmelo Mccray DO> Cosigner Signature (if applicable): CC: No Primary Care Physician ~ Signed [facility] Work Phone: 1(653) 227-456203-20-2024 Progress note Author Carmelo Albert [facility] May 01, 2023 9:43am Note Date/Time May 01, 2023 7:0 1am [facility] Medical Records Department [address] [place] [address] Progress Note - Hospitalist 05/01/23 0658 MR#: [id number] Acct: [id number] Name: KADE GONZALEZ Rep #:[id number] : 1995 27 From: Carmelo Albert DO [...] (Auto) 49.6, Lymph % (Auto) 41.9 H, Carlton % (Auto) 6.5, Eos % (Auto) 0.3, [...] type admission. Charges/Coding Visit Charges Inpatient E&M: 01332 Subs Hosp L2 05/01/23 0943 <Electronically signed by Carmelo Albert DO> Cosigner Signature (if applicable): CC: ~ Signed [facility] Work Phone: 1(483) 349-676703-20-2024 Discharge summary Author Marcio Cardona [facility] May 01, 2023 6:26am Note Date/Time May 01, 2023 5:2 8am [facility] Medical Records Department [address] [place] [address] Emergency Department Summary 05/01/23 MR#: [id number] Acct: [id number] Name: KADE GONZALEZ Rep #:[id number] : 1995 27 From: Marcio Cardona MD [...] does not intend to do that again. [facility] Medical History (Updated 05/01/23 @ [...] your Primary Care Provider. Call [facility] ([phone]) or report to the closest Emergency Room. Call 911 if necessary. 05/01/23 0626 <Electronically signed by Marcio Cardona MD> Cosigner Signature (if applicable): CC: No Primary Care Physician ~ Signed [facility] Work Phone: 1(605) 465-513703-20-2024 History and physical note Author Jacquie Beckwith [facility] May 01, 2023 5:50am Note Date/Time May 01, 2023 5:3 3am [facility] Medical Records Department [address] [place] [address] H&P Exam - Hospitalist 05/01/23 0532 MR#: [id number] Acct: [id number] Name: KADE GONZALEZ Rep #:[id number] : 1995 27 From: Jacquie Beckwith MD [...] Asthma, Chronic migraines who presents to the [facility] ED on 05/01/23 withlast EtOH intake reported [...] administered phenobarbital 97.2 mg p.o. x 1. [facility] Medical History (Updated 05/01/23 @ [...] Asthma, Chronic migraines who presents to the [facility] ED on 05/01/23 withlast EtOH intake reported [...] type admission. Charges/Coding Visit Charges Inpatient E&M: 15152 Init Hosp L2 05/01/23 0550 <Electronically signed by Jacquie Beckwith MD> Cosigner Signature (if applicable): CC: Dr. Jacquie Beckwith MD; No Primary Care Physician~ Signed [facility] Work Phone: 1(676) 424-235702-10-2024 History and physical note Author Stan Thomas [facility] March 23, 2023 12:48am Note Date/Time March 23, 2023 12:18am [facility] Medical Records Department [address] [place] [address] H&P Exam - Hospitalist 03/23/23 0017 MR#: [id number] Acct: [id number] Name: KADE GONZALEZ Rep #:[id number] : 1995 27 From: Stan Bullock PCP: Care Physician,No Primary Status :ADM IN Location: [place] [address] HPI - General General Date of Admission: [...] including hematemesis melena or alcoholic liver disease [facility] Medical History Alcohol abuse Anxiety [...] % (Auto) 58.3, Lymph % (Auto) 34.2, Carlton% (Auto) 6.3, Eos % (Auto) 0.1, Baso [...] [facility] floor. [facility] Patient on phenobarbital based order set along with other adjunctive medications gabapentin, Bentyl, Vistaril, clonidine, Klonopin as needed for alcohol withdrawal symptom control. Patient is on thiamine and folate acid. Twelve-lead EKG shows sinus tachycardiaat 108 bpm. Liver chemistry normal limit. GGT pending. Serum alcohol was highat 212. CIWA monitor. plant health manager consulted.. 2. Chronic nicotine use/cigarette smoking: [...] % (Auto) 58.3, Lymph % (Auto) 34.2, Carlton% (Auto) 6.3, Eos % (Auto) 0.1, Baso [...] Alcohol 212.0 Charges/Coding Visit Charges Inpatient E&M: 45955 Init Hosp L3 03/23/23 0048 <Electronically signed by Stan Thomas MD> Cosigner Signature (if applicable): CC: Dr. Stan Thomas MD; No Primary Care Physician~ Signed [facility] Work Phone: 1([phone]) 945-929302-10-2024 Discharge summary Author Daquan Reid [facility] March 23, 2023 12:42am Note Date/Time March 22, 2023 1 0:17pm [facility] Medical Records Department [address] [place] [address] Emergency Department Summary 03/22/23 MR#: [id number] Acct: [id number] Name: KADE GONZALEZ Rep #:[id number] : 1995 27 From: Daquan Reid MD PCP: Care Physician,No Primary Status :ADM IN Location: [place] [address] Daquan Reid MD on [...] detox last year, then went through [facility]. [facility] Medical History Alcohol abuse Anxiety [...] discussed with Dr. Thomas for admission to [facility] for detox from alcohol. Patient [...] % (Auto) 58.3 Lymph % (Auto) 34.2 Carlton % (Auto) 6.3 Eos % (Auto) 0.1 [...] alcohol intoxication Disposition Disposition: Acute Care Hospital [facility] What to do if you have Problems For any increased pain, shortness of breath, bleeding, nausea or vomiting, chestpain, or any unexpected problems, contact your Primary Care Provider. Call [facility] ([phone]) or report to the closest Emergency Room. Call 911 if necessary. 03/23/23 0018 <Electronically signed by Daquan Reid MD> Cosigner Signature (if applicable): CC: No Primary Care Physician ~ Signed [facility] Work Phone: 1(931) 570-754502-10-2024 Discharge summary Author Daquan Reid [facility] March 23, 2023 12:42am Note Date/Time March 22, 2023 1 0:17pm [facility] Medical Records Department [address] [place] [address] Emergency Department Summary 03/22/23 MR#: [id number] Acct: [id number] Name: KADE GONZALEZ Rep #:[id number] : 1995 27 From: Daquan Reid MD PCP: Care Physician,No Primary Status :ADM IN Location: [place] [address] Daquan Reid MD on [...] detox last year, then went through [facility]. [facility] Medical History Alcohol abuse Anxiety [...] discussed with Dr. Thomas for admission to [facility] for detox from alcohol. Patient [...] % (Auto) 58.3 Lymph % (Auto) 34.2 Carlton % (Auto) 6.3 Eos % (Auto) 0.1 [...] alcohol intoxication Disposition Disposition: Acute Care Hospital [facility] What to do if you have Problems For any increased pain, shortness of breath, bleeding, nausea or vomiting, chestpain, or any unexpected problems, contact your Primary Care Provider. Call [facility] ([phone]) or report to the closest Emergency Room. Call 911 if necessary. 03/23/2317 <Electronically signed by Daquan Reid MD> Cosigner Signature (if applicable): CC: No Primary Care Physician ~ Signed [facility] Work Phone: 1(622) 953-592006-27-[address] Albert [facility] August 07, 2022 9:19am Note Date/Time August 07, 2022 9:18 am [facility] Medical Records Department [address] [place] [address] Instructions for Home/Discharge Instructions 08/07/22917 MR#: [id number] Acct: [id number] Name: KADE GONZALEZ Rep #:[id number] : 1995 From: Carmelo Albert DO PCP: [...] DO; No Primary Care Physician ~ Signed [facility] Work Phone: [phone]) [phone] Albert [facility] August 07, 2022 9:19am Note Date/Time August 07, 2022 9:19 am [facility] Medical Records Department [address] [place] [address] Discharge Summary 08/07/22 0919 MR#: [id number] Acct: [id number] Name: KADE GONZALEZ Rep #:[id number] : 1995 From: Carmelo Albert DO PCP: Care Physician,No Primary Status :ADM IN Location: [place] [address] Providers Date of Admission: 08/05/22 Primary Care [...] Patient to follow up with [facility] for inpatient treatment on 08/08 Given [...] Self Care Charges/Coding Visit Charges Inpatient E&M: 54054 Disch Hosp 08/07/22918 <Electronically signed by Carmelo Albert DO> Cosigner Signature (if applicable): CC: Dr. Carmelo Albert DO; No Primary Care Physician~ Signed [facility] Work Phone: 1(273) 135-176006-27-[address] Albert [facility] August 07, 2022 9:18am Note Date/Time August 07, 2022 8:02 am [facility] Medical Records Department [address] [place] [address] Progress Note - Hospitalist 08/07/22800 MR#: [id number] Acct: [id number] Name: KADE GONZALEZ Rep #:[id number] : 1995 From: Carmelo Albert DO PCP: Care Physician,No Primary Status :ADM IN Location: [address] Reason for Visit Reason for Visit: [...] Patient to follow up with [facility] for inpatient treatment on 6/[address] in the AM [...] Cosigner Signature (if applicable): CC: ~ Signed [facility] Work Phone: 1(389) 252-550006-26-[address] Albert [facility] August 06, 2022 12:45pm Note Date/Time August 06, 2022 8:25 am [facility] Medical Records Department [address] [place] [address] Progress Note - Hospitalist 08/06/22822 MR#: [id number] Acct: [id number] Name: DAISYKADE AWANHARD Rep #:[id number] : 1995 26 From: Carmelo Albert DO PCP: Care Physician,No Primary Status :ADM IN Location: [place] [address] Reason for Visit Reason for Visit: Diagnoses [...] % (Auto) 56.8, Lymph % (Auto) 33.2, Carlton% (Auto) 8.3, Eos % (Auto) 0.3, Baso [...] Patient to follow up with [facility] for inpatient treatment on 08/08 PLAN: Plan Chronic complicating conditions: * Polysubstance abuse-Patient admits to utilizing cocaine and methamphetamines as well-Recommend cessation-180 consultation * Tobacco abuse-Recommend cessation-Nicotine patch DVT prophylaxis -Low risk -Recommend early and frequent ambulation CODE STATUS -Full code Charges/Coding Visit Charges Inpatient E&M: 05656 Subs Hosp L1 08/06/22 7982 <Electronically signed by Carmelo Albert DO> Cosigner Signature (if applicable): CC: ~ Signed [facility] Work Phone: 1(116) 431-892306-25-[address] Ridley [facility] August 05, 2022 7:14pm Note Date/Time August 05, 2022 3:51 pm [facility] Medical Records Department [address] [place] [address] Emergency Department Summary 08/05/22 MR#: [id number] Acct: [id number] Name: KADE GONZALEZ Rep #:[id number] : 1995 26 From: Cadence CAMPA PCP: Care Physician,No Primary Status :ADM IN Location: [place] [address]-1 HPI <KATHERYN Mcdowell - Last Filed: 08/05/22 [...] <KATHERYN Mcdowell - Last Filed: 08/05/22 17:08> [facility] Medical History (Updated 08/05/22 @ [...] <KATHERYN Mcdowell - Last Filed: 08/05/22 17:08> [facility] MDM Narrative Medical decision making narrative: [...] % (Auto) 56.8 Lymph % (Auto) 33.2 Carlton % (Auto) 8.3 Eos % (Auto) 0.3 [...] (Auto) Neut % (Auto) Lymph % (Auto) Carlton % (Auto) Eos % (Auto) Baso % [...] Ridley MD - Last Filed: 08/05/22 16:54> [facility] Lab Data Labs: Laboratory Results - last 24 hr 08/05/22 08/05/22 08/05/22 15:56 15:56 15:56 WBC 7.1 RBC 4.56 L Hgb 14.6 Hct 41.3 MCV 90.6 MCH 32.0 MCHC 35.4 RDW Std Deviation 38.1 RDW Coeff of Jessica 11.6 Plt Count 249 MPV 9.1 Immature Gran % (Auto) 0.400 Neut % (Auto) 56.8 Lymph % (Auto) 33.2 Carlton % (Auto) 8.3 Eos % (Auto) 0.3 [...] (Auto) Neut % (Auto) Lymph % (Auto) Carlton % (Auto) Eos % (Auto) Baso % [...] your Primary Care Provider. Call [facility] ([phone]) or report to the closest Emergency Room. Call 911 if necessary. 08/05/221707 <Electronically signed by Cadence CAMPA> Cosigner Signature (if applicable): 08/05/221913 <Electronically signed by Fior Ridley MD> CC: No Primary Care Physician ~ Signed [facility] Work Phone: 1(451) 672-707306-25-2023 History and physical note Author Dr. Hirsch [facility] August 05, 2022 5:16pm Note Date/Time August 05, 2022 5:05 pm [facility] Medical Records Department [address] [place] [address] H&P Exam - Hospitalist 08/05/221700 MR#: [id number] Acct: [id number] Name: KADE GONZALEZ Rep #:[id number] : 1995 From: Ashley Hirsch DO PCP: Care Physician,No Primary Status :ADM IN Location: [facility] [place]-4 HPI - General General Date of Admission: 08/05/22 Date of Service: 08/05/22 Chief Complaint: Desire for detoxification from alcohol HPI Narrative KADE GONZALEZ, is a 26 M who presented to the emergency department at [facility] on 08/05/2022 requesting detox from alcohol. The [...] discharge is for readmission into inpatient rehab. [facility] Medical History No acute medical problems Polysubstance [...] % (Auto) 56.8, Lymph % (Auto) 33.2, Carlton% (Auto) 8.3, Eos % (Auto) 0.3, Baso [...] Total Protein 6.4, Albumin 3.5, Globulin 2.9 06/25/23 15:56: Ethyl Alcohol 219.0 08/05/22 16:05: Urine [...] -Full code Charges/Coding Visit Charges Inpatient E&M: 00376 Init Hosp L2 08/05/22 1716 <Electronically signed by Ashley Hirsch DO> Cosigner Signature (if applicable): CC: Dr. Ashley Hirsch DO; No Primary Care Physician~ Signed [facility] Work Phone: Discharge summary Author Marcio Cardona [facility] May 01, 2023 6:26am Note Date/Time May 01, 2023 5:2 8am [facility] Medical Records Department [address] [place] [address] Emergency Department Summary 05/01/23 MR#: [id number] Acct: [id number] Name: KADE GONZALEZ Rep #:[id number] : 1995 27 From: Marcio Cardona MD [...] does not intend to do that again. [facility] Medical History (Updated 05/01/23 @ 05:[address] Jacquie Beckwith MD) Alcohol abuse Anxiety and depression Asthma Migraines Polysubstance abuse Tobacco abuse Home Medications NK 08/05/22 [History Last Taken Unknown] Allergy/AdvReac Type Severity Reaction Status Date / Time No Known Allergies Allergy Verified 03/22/23 22:05 Family History (Updated 05/01/23 @ 05:[address] aJcquie Beckwith MD) Uncle Alcohol abuse Paternal uncles. [...] your Primary Care Provider. Call [facility] ([phone]) or report to the closest Emergency Room. Call 911 if necessary. 05/01/23625 <Electronically signed by Marcio Cardona MD> Cosigner Signature (if applicable): CC: No Primary Care Physician ~ Signed [facility] Work Phone: Discharge summary Author Colin Colon [facility] Note Date/Time October 02, 2024 7: 26am [facility] Medical Records Department [address] [place] [address] Emergency Department Summary 10/02/24 MR#: [id number] Acct: [id number] Name: KADE GONZALEZ Rep #:[id number] : 1995 28 From: Colin Colon DO [...] states he would prefer to go to [place] versus [place] or [place]. Therefore the case was discussed withDr. Parekh at [facility]. He agrees to accept the [...] 76.7 H Lymph % (Auto) 14.6 L Carlton % (Auto) 7.1 Eos % (Auto) 0.5 [...] an acute fracture or dislocation. Reading Location: [id number] Facial/Sinus 10/02/24 05:15 IMPRESSION: Mandibular right para-symphyseal and left mandibular angle/body fractures with related soft tissue edema and possible left master intramuscular hematoma as detailed. Reading [facility] Management Discussion w/another healthcare provider: Technical Support Specialist Discharge Plan Triage Chief Complaint: Head Injury ED Provider: Colin Colon Dx/Rx/DC Orders Clinical Impression: Mandible open fracture, History of alcohol abuse, Tobacco use, Alcohol abuse Prescriptions: No Action NK Primary Care Provider: Care Physician,No Primary Referrals: Care Physician,No Primary [Primary Care Provider] - Print Language: Lithuanian Disposition Disposition: Acute Care Hospital Discharge Location: [facility] What to do if you have Problems For any increased pain, shortness of breath, bleeding, nausea or vomiting, chestpain, or any unexpected problems, contact your Primary Care Provider. Call [facility] ([phone]) or report to the closest Emergency Room. Call 911 if necessary. 10/02/24725 <Electronically signed by Colin Colon DO> Cosigner Signature (if applicable): CC: No Primary Care Physician ~ Signed [facility] Work Phone: Evaluation note* Diagnosis Onset Date Resolution Status Alcohol abuse acute Desire for detoxification [facility] Work Phone: Evaluation note* Diagnosis Onset Date Resolution Status Acute alcohol intoxication a cute Acute hyperactive alcohol withdrawal delirium acute Desire for detoxification [facility] Work Phone: Evaluation note* Diagnosis Onset Date Resolution Status Acute hyperactive alcohol withdrawal delirium resolved Alcohol dependence acute Alcohol withdrawal acute [facility] Work Phone: Evaluation note* Diagnosis Onset Date Resolution Status Acute hyperactive alcohol withdrawal delirium resolved Alcohol withdrawal acute [facility] Work Phone: Evaluation note* Diagnosis Influenza A- Primary Influenza with other respiratory manifestations URI with cough and congestion Generalized body aches [facility] Diagnosis Chest pain, unspecified type- Primary Methamphetamine abuse (HCC) Nondependent amphetamine or related acting sympathomimetic abuse, unspecified Alcohol abuse Nondependent alcohol abuse, unspecified drinking behavior Chest pain Unspecified chest pain Methamphetamine abuse (HCC) Nondependent amphetamine or related acting sympathomimetic abuse, unspecified Alcohol abuse Nondependent alcohol abuse, unspecified drinking behavior documented in this encounter [facility] note* Diagnosis Mandible fracture (HCC)- Primary Closed fracture of unspecified site of mandible Closed fracture of mandible, unspecified laterality, unspecified mandibular site, initial encounter ([facility]) Alcohol use disorder, severe, dependence (HCC) Alcohol withdrawal syndrome without complication (HCC) Methamphetamine use (HCC) Nondependent amphetamine or related acting sympathomimetic abuse, unspecified Cocaine use Cannabis use, uncomplicated Cigarette nicotine dependence without complication Acute pain History of benzodiazepine use [facility] Diagnosis Mandible fracture (HCC)- Primary Closed fracture of unspecified site of mandible Closed fracture of mandible, unspecified laterality, unspecified mandibular site, initial encounter ([facility]) Trauma- Primary Injury, other and [...] sympathomimetic abuse, unspecified documented in this encounter [facility] note* Diagnosis Mandible fracture (HCC)- Primary Closed fracture of unspecified site of mandible Closed fracture of mandible, unspecified laterality, unspecified mandibular site, initial encounter ([facility]) Closed fracture of mandible with routine healing, [...] (HCC) Unspecified psychosis [facility] Diagnosis Mandible fracture (HCC)- Primary Closed fracture of unspecified site of mandible Closed fracture of mandible, unspecified laterality, unspecified mandibular site, initial encounter ([facility]) Closed fracture of mandible with routine healing, [...] [facility]. Hirsch [facility] August 05, 2022 5:16pm Note Date/Time August 05, 2022 5:05 pm [facility] Medical Records Department [address] [place] [id number] H&P Exam - Hospitalist 08/05/22 1701 MR#: [id number] Acct: [id number] Name: KADE GONZALEZ Rep #:[id number] : 1995 26 From: Ashley Hirsch DO PCP: Care Physician,No Primary Status :ADM IN Location: [place] [id number] HPI - General General Date of Admission: 08/05/22 Date of Service: 08/05/22 Chief Complaint: Desire for detoxification from alcohol HPI Narrative KADE GONZALEZ, is a 26 M who presented to the emergency department at [facility] on 08/05/2022 requesting detox from alcohol. The [...] discharge is for readmission into inpatient rehab. [facility] Medical History No acute medical problems Polysubstance [...] % (Auto) 56.8, Lymph % (Auto) 33.2, Carlton% (Auto) 8.3, Eos % (Auto) 0.3, Baso [...] -Full code Charges/Coding Visit Charges Inpatient E&M: 36106 Init Hosp L2 08/05/22 1716 <Electronically signed by Ashley Hirsch DO> Cosigner Signature (if applicable): CC: Dr. Ashley Hirsch DO; No Primary Care Physician~ Signed [facility] Work Phone: History and physical note Author Stan Thomas [facility] March 23, 2023 12:48am Note Date/Time March 23, 2023 12:18am [facility] Medical Records Department [address] [facility] [place] [address] H&P Exam - Hospitalist 03/23/23 0017 MR#: [id number] Acct: [id number] Name: KADE GONZALEZ Rep #:[id number] : 1995 27 From: Stan Bullock PCP: Care Physician,No Primary Status :ADM IN Location: [address] HPI - General General Date of Admission: [...] including hematemesis melena or alcoholic liver disease [facility] Medical History Alcohol abuse Anxiety [...] % (Auto) 58.3, Lymph % (Auto) 34.2, Carlton% (Auto) 6.3, Eos % (Auto) 0.1, Baso [...] Serum alcohol was highat 212. CIWA monitor. plant health manager consulted.. 2. Chronic nicotine use/cigarette smoking: [...] % (Auto) 58.3, Lymph % (Auto) 34.2, Carlton% (Auto) 6.3, Eos % (Auto) 0.1, Baso [...] Alcohol 212.0 Charges/Coding Visit Charges Inpatient E&M: 14914 Init Hosp L3 03/23/23 0048 <Electronically signed by Stan Thomas MD> Cosigner Signature (if applicable): CC: Dr. Stan Thomas MD; No Primary Care Physician~ Signed [facility] Work Phone: History and physical note Author Jacquie Beckwith [facility] May 01, 2023 5:50am Note Date/Time May 01, 2023 5:3 3am [facility] Medical Records Department [address] [place] [address] H&P Exam - Hospitalist 05/01/23 0532 MR#: [id number] Acct: [id number] Name: KADE GONZALEZ Rep #:[id number] : 1995 27 From: Jacquie Beckwith MD [...] Asthma, Chronic migraines who presents to the [facility] ED on 05/01/23 withlast EtOH intake reported [...] administered phenobarbital 97.2 mg p.o. x 1. [facility] Medical History (Updated 05/01/23 @ [...] Asthma, Chronic migraines who presents to the [facility] ED on 05/01/23 withlast EtOH intake reported [...] type admission. Charges/Coding Visit Charges Inpatient E&M: 21206 Init Hosp L2 05/01/23 0548 <Electronically signed by Jacquie Beckwith MD> Cosigner Signature (if applicable): CC: Dr. Jacquie Beckwith MD; No Primary Care Physician~ Signed [facility] Work Phone: Hospital course Narrative No data available for this section [facility] Discharge instructions* Attachments The following attachments cannot be sent through Care Everywhere. * Chest Pain, Adult ED (Lithuanian) * Troponin Test (Lithuanian) * Drug Abuse Treatment (Lithuanian) * Alcohol Use Disorder ED (Lithuanian) * Polysubstance Use Disorder (Lithuanian) * Substance Use Disorder ED (Lithuanian) [facility] Additional Instructions Your exam would [...] infection permanent disability facial abnormality and even .[facility] Work Phone: Hospital Discharge instructionsAdditional Instructions Thank [...] for further outpatient evaluation, pain control and management.[facility] Work Phone: Instructions* Attachments The following attachments cannot be sent through Care Everywhere. * Flu Discharge Instructions, Adult (Lithuanian) documented in this [facility] for referral (narrative)No reason for referral information availableW[facility] Work Phone: Chief Complaint and Reason [...] Visit Admit Date Admitted to alcohol detoxification [facility] October 01, 2024 12:22am Chief Complaint Admit [...] 14am jaw pain October 18, 2024 3:01pm Chief Complaint Admit Date ETOH DETOXIFICATION October 01, 2024 12 :22am ETOH DETOXIFICATION October 01, 2024 1: 51am alt loc October 02, 2024 4: 05am HEAD INJURY October 02, 2024 4: 54am ETOH DETOXIFICATION October 02, 2024 7: 14am jaw pain October 18, 2024 3:01pm ETOH DETOX October 18, 2024 6:16pm Advance Directives Advance Directive Response Recorded Date/ Time Living Will No August 05, 2022 4:09pm Power of Portfolio Lead No August 05 4:09pm Advance Directive Response Recorded Date/ Time Living Will No August 05, 2022 6:27pm Power of Portfolio Lead No August 05 6:27pm Advance Directive Response Recorded Date/ Time Living Will No March 22 10:56pm Power of Portfolio Lead No March 22, 2023 10:56pm Advance Directive Response Recorded Date/ Time Living Will No March 23, 024 1:01am Power of Portfolio Lead No March 23, 2023 1:01am Advance Directive Response Recorded Date/ Time Living Will No May 01, 2023 5:10am Power of Portfolio Lead No April 30 5:10am Advance Directive Response Recorded Date/ Time Living Will No May 01, 2023 6:45am Power of Portfolio Lead No April 30 6:45am Advance Directive Response Recorded Date/ Time Living Will No June 19, 2023 11 :38pm Power of Portfolio Lead No June 19, 2023 11:38pm Advance Directive Response Recorded Date/ Time Do you have a Healthcare Power of Portfolio Lead? No October 01, 2024 1:52am Advance Directive Response Recorded Date/ Time Do you have a Healthcare Power of Portfolio Lead? No October 01, 2024 1:52am Do you have a Healthcare Power of Portfolio Lead? No October 02, 2024 4:09am Advance Directive Response Recorded Date/ Time Do you have a Healthcare Power of Portfolio Lead? No October 01, 2024 1:52am Do you have a Healthcare Power of Portfolio Lead? No October 02, 2024 4:09am Do you have a Healthcare Power of Portfolio Lead? No October 02, 2024 4:55am Date Activated [...] Do you have a Healthcare Power of Portfolio Lead? No October 01, 2024 1:52am Do you have a Healthcare Power of Portfolio Lead? No October 18, 2024 3:22pm Do you have a Healthcare Power of Portfolio Lead? No October 02, 2024 4:09am Do you have a Healthcare Power of Portfolio Lead? No October 02, 2024 4:55am Advance Directive Response Recorded Date/ Time Do you have a Healthcare Power of Portfolio Lead? No October 01, 2024 1:52am Do you have a Healthcare Power of Portfolio Lead? No October 18, 2024 3:22pm Do you have a Healthcare Power of Portfolio Lead? No October 02, 2024 4:09am Do you have a Healthcare Power of Portfolio Lead? No October 02, 2024 4:55am Do you have a Healthcare Power of Portfolio Lead? No October 18, 2024 4:33pm Family History Relationship Condition Age at Onset [...] Active Start: October 02, 2024 Dr. Jacquie Beckiwth MD Admit Provider Active St art: October 02, 2024 Dr. Jacquie Beckwith MD Other Provider Active St art: October 02, 2024 Dr. Rachel Stephen MD Attending Provider Active Start: October 02, 2024 Dr. Rachel Stephen MD Other Provider Active Star t: October 02, 2024 Green Inspector Relationship Specialty Start Date End Date No, Physician [facility] PCP - General 10/02/24 Green Inspector Relationship Specialty Start Date End Date No, Physician [facility] PCP - General 10/02/24 Green Inspector Relationship Specialty Start Date End Date No, Physician [facility] PCP - General 10/02/24 Green Inspector Relationship Specialty Start Date End Date No, Physician [facility] PCP - General 10/02/24 Team Status: [...] End: October 18, 2024 Dr. Bairon Dee DO Emergency Provider Active Start: October 18, 2024 End: October 18, 2024 Team Status: Active Member Role/Relationship Status Dates No Primary Care Physician Primary Care Provider Active Start: October 18, 2024 Dr. Bairon Dee DO Emergency Provider Active Start: October 18, 2024 Dr. Ingrid Reece MD Admit Provider Active Star t: October 18, 2024 Dr. Ingrid Reece MD Attending Provider Active Start: October 18, 2024 Goals (unrecognized section and content) Goals may be documented in a n alternate section No data available for this section (unrecognized sect ion and content) No Status Records FoundNo Status Records FoundNo Status Records FoundNo Status Records FoundNo Status Records FoundNo Status Records Found INFORMATION SOURCE (unrecogn ized section and content) DATE CREATED AUTHOR 06/28/[address] [facility] ([place]) DATE CREATED AUTHOR AUTHOR'S ORGANIZ ATION 08/02/2023 [facility] DATE CREATED AUTHOR AUTHOR'S ORGANIZ ATION 06/26/[address] [facility] DATE CREATED AUTHOR AUTHOR'S ORGANIZ ATION 10/01/[address] [facility] DATE CREATED AUTHOR AUTHOR'S ORGANIZ ATION 10/09/2024 [facility] DATE CREATED AUTHOR AUTHOR'S ORGANIZ ATION 10/16/2024 [facility] Reason for Visit (unrecogniz ed section and content) Reason Comments Jaw Pain Specialty Diagnoses / Procedures Referred By Contac t Referred To Contact Diagnoses Fracture of mandible of other specified site, initial encounter for open fracture (HCC) Referral ID Status Reason Start Date Expiration Date Visits Re quested Visits Authorized [id number] 1 1 Specialty Diagnoses / Procedures Referred By Bahman t Referred To Contact Diagnoses Trauma Referral ID Status Reason Start Date Expiration Date Visits Re quested Visits Authorized [id number] 1 1 Reason Comments URI Cough /Body [...] By Bahman t Referred To Contact Diagnoses Mandible fracture (HCC) Trauma: 2 Open Jaw Fx, Intoxication Referral ID Status Reason Start Date Expiration Date Visits Re quested Visits Authorized [id number] 1 1 Specialty Diagnoses / Procedures Referred By Bahman t Referred To Contact Diagnoses Trauma Closed fracture of mandible with routine healing, unspecified laterality, unspecified mandibular site, subsequent encounter Referral ID Status Reason Start Date Expiration Date Visits Re quested Visits Authorized [id number] 1 1 Scheduled Active and Recently Administ ered Medications (unrecognized section and content) Medication Order 06/09/2024 06/10/2024 06/11/2024 sodium chloride 0.9 % bolus 1,000 mL (COMPLETED) 1,000 mL, IntraVENous, at 1,000 mL/hr, Administer over 1 Hours, Once, On Sat06/11/24 at 0550, For 1 dose 0604 (New Bag - Prov ider: Tash Burt RN)0704 (Stopped - Provider: Holli Walker RN) Scheduled [...] Fior Kelly RN)1104 (Given - Provider: Priya Domínguez RN)1700 (Given - Provider: Priya Domínguez, KATERYNA)2332 (Given - Provider: Fior Kelly RN) 0537 (Given - Provider: Firo Kelly RN) ketorolac (TORADOL) injection 15 mg [...] Kelly RN) 0537 (Given - Provider: Fior Kelly, KATERYNA)0653 (MAR Hold - Provider: Transfer Provider, Automatic - Reason: Patient not available)1120 (APR Unhold - Provider: Transfer Provider, Automatic) wisuntyg-emz-atmalyg gluconate liquid 15 mL 15 mL, Oral, [...] (APR Unhold - Provider: Transfer Provider, Automatic) nicotine (NICODERM CQ) 21 mg/24 hr 1 patch 1 patch, Transdermal, Administer over 24 Hours, Daily, First dose on Sat10/02/24 at 1530, U/P Listed Hazardous Drug. Waste Must Be Disposed in [employer] Waste Container 1640 (Patch Applied - Provider: Elo Campbell RN) 0859 (Canceled Entry - Provider: Priya Domínguez RN)0900 (Canceled Entry - Provider: Priya Domínguez RN) 0653 (APR Hold - Provider: Transfer Provider, Automatic - Reason: Patient not available)0900 (Automatically Held - Provider: Transfer Provider, Automatic)1120 (APR Unhold - Provider: Transfer Provider, Automatic) PHENobarbital injection 221 mg (COMPLETED)(Linked Group 2) 221 mg (rounded from 225.9 mg = 3 mg/kg 75.3 kg Dawson weight), Intramuscular, Every 3 hours, First dose [...] OR has clinical justification for full dose 184 (Given - Provider: Elo Campbell RN)2136 (Given - Provider: Fior Kelly RN - Comment: too soon) PHENobarbital injection 299 mg (COMPLETED)(Linked Group 2) 299 mg (rounded from 301.2 mg = 4 mg/kg 75.3 kg Dawson weight), Intramuscular, Once, On Sat10/02/24 at 1430, [...] (Automatically Held - Provider: Transfer Provider, Automatic)1120 ([facility] Unhold - Provider: Transfer Provider, Automatic) PHENobarbitaL tablet 32.4 mg(Linked Group 2) 32.4 mg, Oral, Every 24 hours, First dose on Sat10/05/24 at 2100, For 1 dose 0653 ([facility] Hold - Provider: Transfer Provider, Automatic - Reason: Patient not available)1120 ([facility] Unhold - Provider: Transfer Provider, Automatic) [...] (Automatically Held - Provider: Transfer Provider, Automatic)1120 ([facility] Unhold - Provider: Transfer Provider, Automatic) [...] Kelly RN) 0848 (Given - Provider: Priya Domínguez, KATERYNA)2047 (Given - Provider: Fior Kelly RN) 0653 [...] Remedios Griffiths CRNA)0808 (New Bag - Provider: Rmeedios Griffiths CRNA)0917 (Anesthesia Volume Adjustment - Provider: [...] Priya Domínguez, KATERYNA)1635 (Given - Provider: Priya Domínguez, KATERYNA)1944 (Given - Provider: Fior Kelly RN)2332 (Given [...] RN)0405 (Given - Provider: Fior Kelly RN)0653 (APR Hold - Provider: Transfer Provider, Automatic - Reason: Patient not available)1120 (APR Unhold - Provider: Transfer Provider, Automatic) naloxone [...] respiratory rate is 10 or greater. 0653 ([facility] Hold - Provider: Transfer Provider, Automatic - Reason: Patient not available)1120 ([facility] Unhold - Provider: Transfer Provider, Automatic) naloxone (NARCAN) injection 0.4 mg(Linked Group 4) 0.4 mg, Intravenous, As needed, opioid reversal, patient is pulseless, breathless, and unresponsive, Starting on Sat10/02/24 at 1041, Call a code first, then administer naloxone dose undiluted IV Push over 30 seconds. 0653 ([facility] Hold - Provider: Transfer Provider, Automatic - Reason: Patient not available)1120 ([facility] Unhold - Provider: Transfer Provider, Automatic) [...] (Given - Provider: Elo Campbell RN) 0653 ([facility] Hold - Provider: Transfer Provider, Automatic - Reason: Patient not available)1120 ([facility] Unhold - Provider: Transfer Provider, Automatic) ondansetron (ZOFRAN) injection 4 mg(Linked Group 5) 4 mg, Intravenous, Every 6 hours PRN, nausea, vomiting, Starting on Sat10/02/24 at 1239, [] Oral or IV - use oral route if tolerated. 0653 ([facility] Hold - Provider: Transfer Provider, Automatic - Reason: Patient not available)1120 ([facility] Unhold - Provider: Transfer Provider, Automatic) [...] Colleen Casey RN)1640 (Given - Provider: Elo Campbell, KATERYNA)2139 (Given - Provider: Fior Kelly RN) 0138 (Given - Provider: Fior Leticia, RN)0519 (Given - Provider: Fior Kelly RN)1028 (Given - Provider: Priya Domínguez, KATERYNA)1442 (Given - Provider: Priya Domínguez RN)2047 (Given - Provider: Fior Kelly RN) 0233 (Given - Provider: Fior Kelly RN)0638 (Given - Provider: Fior Kelly, KATERYNA)0653 ([facility] Hold - Provider: Transfer Provider, Automatic - Reason: Patient not available)1120 ([facility] Unhold - Provider: Transfer Provider, Automatic) [...] Provider, Automatic - Reason: Patient not available)1120 ([facility] Unhold - Provider: Transfer Provider, Automatic) sodium chloride (NS) 0.9 % irrigation solution (CANCELED) As needed, Starting on Sat10/04/24 at 0811, Intra-Procedure 0811 (Given - Provider: Marilou Vasquez MD - Comment: Given to sterile field) sodium chloride (PF) (NS) 0.9 % contrast line flush 10 mL(Linked Group 6) 10 mL, Intravenous, Once in imaging, contrast, Per clerk specialist (Radiology) for line patency check prior to contrast administration, Starting on Sat10/02/24 at 1035, For 1 dose 1415 (Canceled Entry - Provider: Elo Campbell RN) 0653 ([facility] Hold - Provider: Transfer Provider, Automatic - Reason: Patient not available)1120 ([facility] Unhold - Provider: Transfer Provider, Automatic) sodium chloride (PF) (NS) 0.9 % contrast line flush 80 mL (COMPLETED)(Linked Group 6) 80 mL, Intravenous, Once in imaging, contrast, Per clerk specialist (Radiology), Starting on Sat10/02/24 at 1035, For [...] 301.2 mg = 4 mg/kg 75.3 kg Dawson weight), Intramuscular, Once, On Sat10/02/24 at 1430, [...] 225.9 mg = 3 mg/kg 75.3 kg Dawson weight), Intramuscular, Every 3 hours, First dose [...] mL, Intravenous, Once in imaging, contrast, Per clerk specialist (Radiology) for line patency check prior to contrast administration, Starting on Sat10/02/24 at 1035, For 1 dose And sodium chloride (PF) (NS) 0.9 % contrast line flush 80 mL (COMPLETED)Jump to med 80 mL, Intravenous, Once in imaging, contrast, Per clerk specialist (Radiology), Starting on Sat10/02/24 at 1035, For [...] Sat10/04/24 at 1850, For 1 dose, VESICANT 185 [...] On Sat10/04/24 at 1850, For 1 dose 1852 (Given [...] 135.54 mg = 1.8 mg/kg 75.3 kg Dawson weight), Intramuscular, Every 3 hours, First dose [...] Fractures), concurrent benzodiazepine therapy or hepatic dysfunction 2351 (Given - Provider: Ramos Car RN) 0338 (Given - Provider: Olimpia Yanez RN) PHENobarbital injection 182 mg (COMPLETED)(Linked Group 1) 182 mg (rounded from 180.72 mg = 2.4 mg/kg 75.3 kg Dawson weight), Intramuscular, Once, On Sat10/04/24 at 2125, [...] Oral, Every 24 hours, First dose on Kendra 10/08/24 at 0325, For 1 dose PHENobarbitaL tablet 64.8 mg(Linked Group 1) 64.8 mg, Oral, Every 12 hours, First dose on 10/05/24 at 1525, For 2 doses 1525 (Due) senna-docusate (SENNA-S) 8.6-50 mg per tablet 1 tablet 1 tablet, Oral, 2 times daily, First dose on 10/04/24 at 2125, NOT for abdominal surgery patients. Hold for loose stools. Do Not Crush or Chew if administering orally due to bitter taste. May be crushed if given via tube. 213 (Not Given - Provider: Jeremias Huff RN [...] muscle spasms, Starting on Sat10/04/24 at 2120 naloxone (NARCAN) injection 0.1 mg(Linked Group 3) 0.1 mg, Intravenous, As needed, opioid reversal, For respiratory rate less than or equal to 8 per minute., Starting on Sat10/04/24 at 0, Mix nalOXone (NARCAN) 0.4 mg (1mL) with 9 mL of Normal Saline to total 10 mL. Administer 0.1 mg (2.5mL) IV Push every 2 minutes until respiratory rate is 10 or greater. naloxone (NARCAN) injection 0.4 mg(Linked Group 3) 0.4 mg, Intravenous, As needed, opioid reversal, patient is pulseless, breathless, and unresponsive, Starting on Sat10/04/24 at 2120, Call a code first, then [...] Diaphoresis, tremors, Hallucinations, Starting on Sat10/04/24 at 2121, For 102 hours, VESICANT sodium [...] 180.72 mg = 2.4 mg/kg 75.3 kg Dawson weight), Intramuscular, Once, On Sat10/04/24 at 2124, [...] 135.54 mg = 1.8 mg/kg 75.3 kg Dawson weight), Intramuscular, Every 3 hours, First dose [...] Oral, Every 12 hours, First dose on Tu10/06/24 at 1523, For 2 doses Followed by PHENobarbitaL tablet 32.4 mgJump to med 32.4 mg, Oral, Every 24 hours, First dose on Kendra 10/08/24 at 0325, For 1 dose Group 2: Saline lock IV (CANCELED) Routine, Continuous, Starting on [place] 10/04/24 at 2119, Until Specified And sodium [...] rate as the secondary infusion, Starting on [place] 10/04/24 at 2117, Run as Primary IV. NOT intended for KVO. Group 3: naloxone (NARCAN) injection 0.1 mgJump to med 0.1 mg, Intravenous, As needed, opioid reversal, For respiratory rate less than or equal to 8 per minute., Starting on [place] 10/04/24 at 2119, Mix nalOXone (NARCAN) 0.4 [...] breathless, and unresponsive, Starting on Sat10/04/24 at 2120, Call a code first, then [...] Holm LPN)0800 (Not Given - Provider: Kaitlyn A Molina, [employer]ER - Reason: Contraindicated)1247 (Given - Provider: Kaitlyn A Molina, [employer] HOME INSTALLER)1523 (Given - Provider: Kaitlyn A Molina, C[employer] HOME INSTALLER)202 (Given - Provider: Ashtyn Morejonmbi, [employer] HOME INSTALLER) 0047 (Given - Provider: Ashtyn Morejonmbi, CUSTOM HOME INSTALLER)0518 (Given - Provider: Ashtyn Morejonmbi, CUSTOM HOME INSTALLER)1004 (Given - Provider: Kaitlyn A Molina, C[employer]OM HOME INSTALLER)1309 (Given - Provider: Kaitlyn A Molina, C[employer] HOME INSTALLER)1600 (Not Given - Provider: Kaitlyn A Molina, [employer] HOME INST[employer]ER - Reason: Contraindicated) amoxicillin-clavulanate (AUGMENTIN) 875-125 mg per tablet 1 tablet 1 tablet, Oral, Every 12 hours scheduled, First dose on Sat10/09/24 at 2100, For 7 days, Indication: Skin/Soft Tissue Infection 2113 (Given - Provider: Lor Holm LPN) 0823 (Given - Provider: Kaitlyn A Molina, [employer] INST[employer]ER)202 (Given - Provider: Ashtyn Hawkins [employer] HOME INSTALLER) 1005 (Given - Provider: Kaitlyn Alicia Francoiso, [employer] INST[employer]ER) chlorhexidine (PERIDEX) 0.12 % solution 15 mL 15 mL, Swab, 4 times daily, First dose on Sat10/08/24 at 0900, Do Not Swallow 1037 (Given - Provider: Jesus Barahona RN)1330 (Given - Provider: Jesus Barahona RN)1700 (Not Given - Provider: Jesus Barahona RN - Reason: Other)2108 (Given - Provider: Lor Holm LPN) 0823 (Given - Provider: Kaitlyn A Molina, C[employer] HOME INSTALLER)1248 (Given - Provider: Kaitlyn A Molina, C[employer]OM HOME INSTALLER)1700 (Given - Provider: Kaitlyn A Molina, CUSTOM HOME INSTALLER)2026 (Given - Provider: Ashtyn Hawkins, C[employer]OM HOME INSTALLER) 1005 (Given - Provider: Kaitlyn A Molina, CUSTOM HOME INSTALLER)1309 (Given - Provider: Kaitlyn A Molina, C[employer]OM HOME INSTALLER)1700 (Given - Provider: Kaitlyn Auguste LPN) enoxaparin (LOVENOX) syringe 30 mg 30 mg, Subcutaneous, 2 times daily, First dose on Sat10/08/24 at 2100, Administer in abdomen unless otherwise directed by prescriber. Notify physician if patient refuses., Indication: VTE Prophylaxis 1037 (Given - Provider: Jesus Barahona RN)210 (Given - Provider: Lor Holm LPN) 0823 (Given - Provider: Kaitlyn Auguste LPN)2026 (Given - Provider: Ashytn Hawkins LPN) 0900 (Not Given - Provider: [...] 225.9 mg = 3 mg/kg 75.3 kg Dawson weight), Oral, Every 3 hours, First dose [...] 225.9 mg = 3 mg/kg 75.3 kg Dawson weight), Oral, Every 3 hours, First dose [...] 301.2 mg = 4 mg/kg 75.3 kg [place] weight), Oral, Once, On Sat10/09/24 at 0130, [...] Oral, Every 24 hours, First dose on 10/12/24 at 1200, For 1 dose, Does patient [...] dose 0011 (Given - Provider: Lor Holm LPN)124 (Given - Provider: Kaitlyn Auguste LPN) QUEtiapine [...] LPN)2024 (Given - Provider: Ashtyn Hawkins LPN) 100 (Given - Provider: Kaitlyn Auguste LPN) sodium [...] RN)2114 (Given - Provider: Lor Holm LPN) 05 (Given - Provider: Lor Holm LPN)1240 (Return to Cabinet - Provider: Kaitlyn Auguste LPN)152 (Given - Provider: Kaitlyn Auguste LPN)202 (Given - Provider: Ashtyn Hawkins LPN) 0046 [...] 301.2 mg = 4 mg/kg 75.3 kg Dawson weight), Oral, Once, On Sat10/09/24 at 0130, [...] 225.9 mg = 3 mg/kg 75.3 kg Dawson weight), Oral, Every 3 hours, First dose [...] 225.9 mg = 3 mg/kg 75.3 kg Dawson weight), Oral, Every 3 hours, First dose [...] lock IV (CANCELED) Routine, Continuous, Starting on [facility] 10/08/24 at 1640, Until Specified And sodium chloride (PF) (NS) flush 5 mLJump to med 5 mL, Intravenous, As needed, line care, Starting on [facility] 10/08/24 at 1637 And sodium chloride (PF) (NS) flush 5 mLJump to med 5 mL, Intravenous, Every 8 hours scheduled, First dose on [facility] 10/08/24 at 1645, Saline lock And sodium chloride 0.9% (NS)Jump to med 0-150 mL/hr, Intravenous, As needed, To flush line after IV infusions when no maintenance IV ordered or a compatibility issue. Infuse 20ml at the same rate as the secondary infusion, Starting on [facility] 10/08/24 at 1637, Run as Primary IV. NOT intended for KVO. Group 4: naloxone (NARCAN) injection 0.1 mgJump to med 0.1 mg, Intravenous, As needed, opioid reversal, For respiratory rate less than or equal to 8 per minute., Starting on [facility] 10/08/24 at 1649, Mix nalOXone (NARCAN) 0.4 [...] floor)2023 (Given - Provider: Romelia Grove RN) 09 (Not Given - Provider: Arnie Akins [...] pt unvailable)1713 (Given - Provider: Arnie Akins RN)2020 (Given - Provider: Romelia Grove RN) 0900 (Not Given - Provider: Arnie Akins RN - Reason: Transfer to a Procedural area)0924 ([facility] Hold - Provider: Transfer Provider, Automatic - Reason: Patient not available)1242 ([facility] Unhold - Provider: Transfer Provider, Automatic)1429 [...] Arnie Akins RN - Reason: Patient/family refused)0924 ([facility] Hold - Provider: Transfer Provider, Automatic - Reason: Patient not available)1242 ([facility] Unhold - Provider: Transfer Provider, Automatic) folic acid (FOLVITE) tablet 1 mg 1 mg, Oral, Daily, First dose on Sat10/13/24 at 1000 1213 (Given - Provider: Arnie Akins RN - Comment: pt unavailable) 0900 (Due)0924 ([facility] Hold - Provider: Transfer Provider, Automatic - Reason: Patient not available)1242 ([facility] Unhold - Provider: Transfer Provider, Automatic) multivitamin (THERAGRAN) per tablet 1 tablet 1 tablet, Oral, Daily, First dose on Sat10/13/24 at 1000 1213 (Given - Provider: Arnie Akins RN - Comment: pt unavailable) 0900 (Due)0924 ([facility] Hold - Provider: Transfer Provider, Automatic - Reason: Patient not available)1242 ([facility] Unhold - Provider: Transfer Provider, Automatic) [...] Key Daniel, KATERYNA)2007 (Stopped - Provider: Ludwin Tucker, KATERYNA) 0237 (New Bag - Provider: Sonia Mcduffie RN)0928 (New Bag - Provider: Arnie Akins RN)1043 (Stopped - Provider: Arnie Akins RN)2006 (New [...] not given in OR at time due)1242 ([facility] Unhold - Provider: Transfer Provider, Automatic)1255 (Stopped [...] 100.4 F or greater, headaches, Starting on 10/12/24 at 2152, [] If ketorolac (TORADOL) is ordered and active, use it first for mild pain. 0910 (Given - Provider: Arnie Akins RN)1823 (Given - Provider: Arnie Akins RN) 0640 (Given - Provider: Romelia Grove RN)0924 ([facility] Hold - Provider: Transfer Provider, Automatic - Reason: Patient not available)1242 ([facility] Unhold - Provider: Transfer Provider, Automatic)1417 (Given - Provider: Arnie Akins, KATERYNA) bacitracin zinc ointment (CANCELED) As needed, Starting on Sat10/14/24 at 1046, Intra-Procedure 1046 (Given - Provider: Marilou Vasquez MD - Comment: to surgical site) fentaNYL (SUBLIMAZE) injection 50 mcg (CANCELED) 50 mcg, Intravenous, Every 1 hour prn, moderate to severe pain, Starting on Sat10/12/24 at 1621, For 2 doses 2009 (Given - Provider: Ludwin Tucker, KATERYNA) haloperidol lactate (HALDOL) injection 1 mg (COMPLETED) [...] Esme Parks RN)1148 (Given - Provider: Esme Parks, KATERYNA) nicotine polacrilex (COMMIT) lozenge 2-4 mg 2-4 [...] lozenge. DO NOT CRUSH OR CHEW. 923 ([facility] Hold - Provider: Transfer Provider, Automatic - Reason: Patient not available)1242 ([facility] Unhold - Provider: Transfer Provider, Automatic) ondansetron (ZOFRAN) injection 4 mg(Linked Group 2) 4 mg, Intravenous, Every 6 hours PRN, nausea, vomiting, Starting on Sat10/12/24 at 2152, [] Oral or IV - use oral route if tolerated. 923 ([facility] Hold - Provider: Transfer Provider, Automatic - Reason: Patient not available)124 ([facility] Unhold - Provider: Transfer Provider, Automatic) ondansetron (ZOFRAN-ODT) disintegrating tablet 4 mg(Linked Group 2) 4 mg, Oral, Every 6 hours PRN, nausea, vomiting, Starting on Sat10/12/24 at 2152, [] Oral or IV - use oral route if tolerated. Formulation requires tablet remain in sealed package until immediately prior to dose being administered. 923 ([facility] Hold - Provider: Transfer Provider, Automatic - Reason: Patient not available)1242 ([facility] Unhold - Provider: Transfer Provider, Automatic) [...] Tucker RN) 1246 (Given - Provider: Arnie Akins, KATERYNA)1607 (Given - Provider: Arnie Akins, KATERYNA)2325 (Given - Provider: Ashli Mendes, KATERYNA) 0351 (Given - Provider: Romelia Grove, KATERYNA)0924 ([facility] Hold - Provider: Transfer Provider, Automatic [...] Provider, Automatic - Reason: Patient not available)1242 ([facility] Unhold - Provider: Transfer Provider, Automatic) [...] Provider, Automatic - Reason: Patient not available)1242 ([facility] Unhold - Provider: Transfer Provider, Automatic) [...] Grove RN)0530 (New Bag - Provider: Romelia Grove, KATERYNA)0642 (Stopped - Provider: Romelia Grove, KATERYNA)0924 ([facility] Hold - Provider: Transfer Provider, Automatic - Reason: Patient not available)1242 ([facility] Unhold - Provider: Transfer Provider, Automatic) traZODone (DESYREL) tablet 50 mg 50 mg, Oral, Nightly PRN, sleep, Starting on Sat10/13/24 at 0907 2023 (Given - Provider: Romelia Grove, KATERYNA) 0924 ([facility] Hold - Provider: Transfer Provider, [...] BE BASED ON THE PRIMARY CLINICAL RECORDS. [facility]. provides no warranty or guarantee of the accuracy or completeness of information in this document.
[2024-10-18 19:41] LABS: Mucous, Urine 0 SEEN /hpf (<or=2+); Red Blood Cells-Urine 0 SEEN /hpf (0-5); Squamous Epithelial Cells - UA 0 SEEN /hpf (0-5)
[2024-10-18 19:43] LABS: Color, Urine Yellow (Yellow); Glucose, Dipstick Normal (Normal); Ketone-Dipstick 50 mg/dl (Negative); Leukocyte Esterase-Dipstick Negative /ul (Negative); Nitrite-Dipstick Negative (Negative); Occult Blood-Urine Negative /ul (Negative); Protein-Dipstick 30 mg/dl (Negative); Specific Gravity, Urine 1.025 (1.002-1.030); Urine Bilirubin Dipstick Negative (Negative)
[2024-10-18 19:45] VITALS: BP 117/59; PULSE 110; RESP 18; TEMP 37.2; O2SAT 98
[2024-10-18 19:47] VITALS: BMI 23.7
[2024-10-18] MEDS: hydrOXYzine PAM 25 MG Capsule 50 MG PO (20:28)
[2024-10-18] MEDS: 0.9% Normal Saline (1000mL) 1,000 ML 100 ML IV (20:29)
[2024-10-18 20:40] LABS: Prothrombin Time (Protime)PT. 13.9 SECONDS (11.7-14.9)
[2024-10-18 20:53] LABS: AST(SGOT) 20 U/L (<=37); Alanine Aminotransfer ALT/SGPT 12 U/L (<=46); Albumin, Serum 3.8 g/dL (3.5-5.0); Alkaline Phosphatase 105 U/L (40-129); Bilirubin, Direct 0.32 mg/dL (0.00-0.30); Globulin 2.9 g/dL (2.2-4.2)
[2024-10-18] MEDS: Chlorhexidine 15 ML PO (21:33)
[2024-10-18] MEDS: Amox/Clav 400mg/5ml Susp 400 MG PO (21:33)
[2024-10-18] MEDS: Ketorolac 30 MG/ML Syringe IV (21:33)
[2024-10-19 04:00] VITALS: BP 114/77; PULSE 67; RESP 18; TEMP 36.9; O2SAT 98
[2024-10-19] MEDS: Ketorolac 30 MG/ML Syringe IV ×2 (04:55→15:38)
[2024-10-19] MEDS: hydrOXYzine PAM 25 MG Capsule 50 MG PO (04:56)
[2024-10-19] MEDS: 0.9% Normal Saline (1000mL) 1,000 ML 100 ML IV (04:56)
[2024-10-19 07:04] LABS: Hematocrit 36.4 % (40-54); Hemoglobin 12.8 g/dL (13.0-16.5); Immature Granulocytes Count 0.030 X10^3/uL (0.0-0.0); Mean Corp Hgb Conc 35.2 g/dL (32-36); Mean Corpuscular Volume 96.6 fL (80-94); Mean Platelet Vol. 9.1 fl (6.2-12.0); NRBC Flagged by Analyzer 0 % (0-5); Platelet Count 424 K/mm3 (150-450); RBC Distribution Width CV 11.9 % (11.6-14.6); RBC Distribution Width SD 41.5 fl (35.1-43.9); Red Blood Count 3.77 M/mm3 (4.6-6.2); White Blood Count 6.0 K/mm3 (4.4-11.0)
[2024-10-19 07:37] LABS: AST(SGOT) 19 U/L (<=37); Alanine Aminotransfer ALT/SGPT 13 U/L (<=46); Albumin, Serum 3.4 g/dL (3.5-5.0); Alkaline Phosphatase 101 U/L (40-129); Anion Gap 11 (5-15); BUN 12 mg/dL (4-19); BUN/Creat Ratio 20.3 RATIO (10-20); Calcium,Total 8.5 mg/dL (7.6-11.0); Carbon Dioxide 23.5 mmol/L (21.0-32.0); Chloride 104 mmol/L (98-108); Estimated Creatinine Clearance 193.74 ml/min (50-250); Globulin 2.6 g/dL (2.2-4.2); Glucose 174 mg/dL (70-99); Potassium 3.6 mmol/L (3.3-5.1)
[2024-10-19 10:19] VITALS: BP 100/61; PULSE 71; RESP 16; TEMP 36.6; O2SAT 98
[2024-10-19] MEDS: Thiamine Hydrochloride 100 MG Tablet PO (10:22)
[2024-10-19] MEDS: Amox/Clav 400mg/5ml Susp 400 MG PO ×2 (10:22→16:58)
--- NOTE | 2024-10-19 10:22 | PN.HOSP_ITS ---
Subjective Subjective CINA score of 1 with a CIWA score of 8 Objective Data Objective Data Vital Signs: Vital Signs Temp Pulse Resp BP Pulse Ox O2 Del Method 97.9 F 71 16 100/61 98 Room Air 10/19/24 10:19 10/19/24 10:19 10/19/24 10:19 10/19/24 10:19 10/19/24 10:19 10/19/24 10:19 Oxygen Delivery Method Room Air Weight: 170 lb Body Mass Index (BMI) 23.7 Intake & Output: Intake and Output for Last 24 Hours 10/18/24 10/19/24 10/20/24 03:59 03:59 03:59 Intake Total 1300 / 1300 1145 / 1145 Balance 1300 / 1300 1145 / 1145 Lab / Micro Data 10/19/24 06:45 10/19/24 06:45 Labs: Laboratory Results - last 24 hr 10/18/24 16:45: Urine Color Yellow, Urine Clarity Clear, Urine pH 5.0, Ur Specific [place] 1.025, Urine Protein 30 H, Urine Glucose (UA) Normal, Urine Ketones 50 H, Urine Occult Blood Negative, Urine Nitrite Negative, Urine Bilirubin Negative, Urine Urobilinogen Normal, Ur Leukocyte Esterase Negative, Urine RBC 0 SEEN, Urine WBC 0 SEEN, Ur Squamous Epith Cells 0 SEEN, Urine Bacteria 0 SEEN, Urine Mucus 0 SEEN, Urine Opiates Screen PRESUMPTIVE POSITIVE, U Buprenorphine Qual NEGATIVE, Ur Oxycodone Screen NEGATIVE, Urine Methadone Screen NEGATIVE, Urine Fentanyl Screen NEGATIVE, Ur Barbiturates Screen PRESUMPTIVE POSITIVE, Ur Phencyclidine Scrn NEGATIVE, Ur Amphetamines Screen PRESUMPTIVE POSITIVE, U Benzodiazepines Scrn PRESUMPTIVE POSITIVE, Urine Cocaine Screen PRESUMPTIVE POSITIVE, U Cannabinoids Screen NEGATIVE 10/18/24 16:57: WBC 10.3, RBC 4.35 L, Hgb 14.8, Hct 42.0, MCV 96.6 H, MCH 34.0 H , MCHC 35.2, RDW Std Deviation 42.9, RDW Coeff of Jessica 12.2, Plt Count 536 H, MPV 8.9, Immature Gran % (Auto) 0.400, Neut % (Auto) 81.9 H, Lymph % (Auto) 11.1 L, [place] % (Auto) 5.0, Eos % (Auto) 0.5, Baso % (Auto) 1.1 H, Absolute Neuts (auto) 8.5 H, Absolute Lymphs (auto) 1.14, Nucleated RBC % 0, Sodium 138, Potassium 4.7, Chloride 101, Carbon Dioxide 19.8 L, Anion Gap 17 H, BUN 9, Creatinine 0.66 L, Estim Creat Clear Calc 179.06, Est GFR (MDRD) Non-Af 132, BUN/Creatinine Ratio 13.3, Glucose 70, Calcium 9.1, Ethyl Alcohol < 10.1 10/18/24 20:14: PT 13.9, INR 1.1, Lactic Acid < 1.0, Total Bilirubin 0.57, D irect Bilirubin 0.32 H, AST 20, ALT 12, Alkaline Phosphatase 105, Total Protein 6.6, Albumin 3.8, Globulin 2.9 10/19/24 06:45: WBC 6.0, RBC 3.77 L, Hgb 12.8 L, Hct 36.4 L, MCV 96.6 H, MCH 34.0 H, MCHC 35.2, RDW Std Deviation 41.5, RDW Coeff of Jessica 11.9, Plt Count 424, MPV 9.1, Immature Gran % (Auto) 0.500, Neut % (Auto) 58.2, Lymph % (Auto) 28.1, [place] % (Auto) 9.2, Eos % (Auto) 2.7, Baso % (Auto) 1.3 H, Absolute Neuts (auto) 3.5, Absolute Lymphs (auto) 1.68, Nucleated RBC % 0, Sodium 138, Potassium 3.6, Chloride 104, Carbon Dioxide 23.5, Anion Gap 11, BUN 12, Creatinine 0.61 L, Estim Creat Clear Calc 193.74, Est GFR (MDRD) Non-Af 135, BUN/Creatinine Ratio 20.3 H, Glucose 174 H, Calcium 8.5, Total Bilirubin 0.20, AST 19, ALT 13, Alkaline Phosphatase 101, Total Protein 5.9, Albumin 3.4 L, Globulin 2.6, Albumin/Globulin Ratio 1.3 Physical Exam Narrative General: Alert, Oriented x3, Cooperative, No apparent distress HEENT: Atraumatic, PERRLA, EOMI, Normocephalic Oral: Moist Mucosa Neck: Supple, No JVD Lungs: Clear to auscultation, Normal air movement, No rhonchi, No wheeze, No rales Cardiovascular: Regular rate, Regular Rhythm, Normal S1, Normal S2, No murmurs Abdomen: Soft, Non Tender, Non-Distended, No Hepato-splenomegaly Extremities: No edema, Capillary Refill Less than 3 Seconds Skin: Suture line on his left jaw does not appear infected Musculoskeletal: No Tenderness to Palpation of Joints or Extremities Neurological: No focal neurological deficits, Motor Exam 5/5 strength throughout, Sensory exam intact to light touch and pain Psych/Mental Status: Normal Affect, Appropriate Assessment & Plan Assessment/Plan (1) Admitted to alcohol detoxification center: (2) Polysubstance abuse: (3) Mandible fracture: PLAN: Plan 1. Requesting detox from alcohol/polysubstance abuse/tobacco abuse ? His UDS was positive for opiate use ? Continue with the CIWA protocol with as needed Ativan and symptomatic medications ? Will have him meet with 180 to develop a discharge plan ? UDS is positive for other agents, will continue to monitor ? Advised cessation, provide nicotine patch if necessary 2. Recent jaw fracture with infection ? S/p surgery by about 2 weeks but he had an I&D recently ? Continue with Augmentin ? Continue on a soft diet until discharge DVT: Lovenox Charges/Coding Visit Charges Inpatient E&M: 98490 Subs Hosp L2
[2024-10-19] MEDS: Chlorhexidine 480 ML 15 ML PO (10:23)
--- NOTE | 2024-10-19 11:35 | ADDICTION ---
Met w/pt to complete RAMP assessments and do DC planning. Pt is currently homeless and struggling with repeated relapse on alcohol and methamphetamines. He reports that he is interested in residential treatment. He was specific about doing residential tx [place] than [facility]. Pt has a hx of leaving AMA. Clinician will look for tx for pt based on his request.
--- NOTE | 2024-10-19 13:33 | CASEMGMT ---
Social Work- SW attempted to meet with pt for SDOH assessment. Pt was sleeping; SW made multiple attempts to awaken. Pt rolled over and away from SW, not responding to name. SW will attempt to meet again when pt is more alert and cooperative. SHEILA Hurtado
[2024-10-19 15:33] VITALS: BP 116/59; PULSE 76; RESP 16; TEMP 36.9; O2SAT 98
[2024-10-19] MEDS: 0.9% Saline Lock 10 ML Syringe IV (15:37)
== END 2024-10-19 18:48 | disposition left against medical advice (07) | DRG 770 ==
LOC: ED 16:25 → MS3 19:04
PROVIDERS: Admitting Provider Internal Medicine; Emergency Provider Emergency Medicine; Visit Provider Family Medicine
DX: F10.20 Alcohol dependence, uncomplicated (principal); S02.609B Fracture of mandible, unspecified, initial encounter for open fracture; F15.90 Other stimulant use, unspecified, uncomplicated; F17.210 Nicotine dependence, cigarettes, uncomplicated; F17.290 Nicotine dependence, other tobacco product, uncomplicated; Z59.00 Homelessness unspecified; Y90.0 Blood alcohol level of less than 20 mg/100 ml; Z53.29 Procedure and treatment not carried out because of patient's decision for other reasons
CPT/HCPCS: 36415; 80048; 80053; 80076; 80307; 81001; 82077; 83605; 85025; 85610; 93005; 97802; 99284; A4216

== ENCOUNTER 2024-10-21 21:45 | Inpatient (IN) | payer MEDICAID, SELFPAY ==
[2024-10-21 21:46] VITALS: BP 137/85; PULSE 102; RESP 18; TEMP 36.8; O2SAT 100; BMI 24.2
--- NOTE | 2024-10-21 21:50 | ED.RN ---
PT. DROPPED OF BY BENEDICT FROM 180 ACCORDING TO PATIENT. I SPOKE WITH [facility] TO OBTAIN ADDITIONAL INFORMATION ABOUT THE PATIENT. THIS NURSE WAS INFORMED THAT THE PT. IS HOMELESS AND HAS BEEN WORKING WITH THE ORGANIZATION FOR THE PAST 2-3 DAYS FOR ALCOHOL ABUSE, AND THAT HIS FAMILY IS LOCATED IN [place].
[2024-10-21 23:15] VITALS: BP 104/55; PULSE 92; RESP 19; O2SAT 97
--- NOTE | 2024-10-21 23:20 | EX.ED.DYSGE1 ---
HPI History of Present Illness Chief Complaint: ETOH Intox Narrative Narrative: Chief complaint and HPI: 28-year-old male with history of alcohol abuse, polysubstance abuse presents for alcohol detox. Patient states he drinks approximately 15 tall boys a day. States his last drink was prior to arrival although patient is very vague and will not tell me what he drank. On chart review, patient was just admitted to our detox center on 10/19/2024. I did look for the discharge summary in which one was not present. I do not know if he was discharged or if he left AGAINST MEDICAL ADVICE. When asked he will not answer. He endorses some nausea. Review of systems: See HPI Medications: As listed on the chart Allergies: As listed on the chart PFSH: Per chart Vital signs: As listed on the chart. Reviewed. Physical exam: Gen: A&O but appears intoxicated, NAD Head: Normocephalic, atraumatic Eyes: No sclera icterus, conjunctiva clear, PERRL ENT: Dry mucous membranes Neck: Trachea midline, No JVD CV: Tachycardic, regular rhythm, no murmurs, no peripheral edema Resp: Lungs CTA BL, no w/r/c GI: Abd soft, non-distended, non-tender, no r/r/g Musc: Full ROM, no deformity Skin: Warm, dry Neuro: Alert, oriented, grossly intact, sensation intact Psych: Cooperative, appropriate mood and affect PFS PFSH Medical History Substance abuse Depression Smoker Anxiety and depression Alcohol dependence Asthma Migraines Polysubstance abuse Tobacco abuse Alcohol abuse Home Medications ?Medication ?Instructions ?Recorded ?Last Taken ?Type amoxicillin 400 mg-potassium ml PO facial infection 10/18/24 Unknown History clavulanate 57 mg/5 mL oral suspension chlorhexidine gluconate 0.12 % jaw surgery 10/18/24 Unknown History mouthwash oxycodone 5 mg tablet 5 mg PO Q6H PRN pain 1 day #4 tabs 10/18/24 Unknown Rx amoxicillin 875 mg-potassium 1 tab PO BID 5 days #10 tabs 10/19/24 Unknown Rx clavulanate 125 mg tablet Allergy/AdvReac Type Severity Reaction Status Date / Time No Known Allergies Allergy Verified 10/21/24 21:46 Family History Uncle Alcohol abuse Paternal uncles. Grandfather Alcohol abuse Mother No problems noted. Father No problems noted. Surgical History No history of previous surgery Social History household members: none Smoking Status: Current every day smoker tobacco type: cigarettes and e-cigarettes alcohol intake: current details: 10 24 ounce beers daily and hard liquor shots substance use type: crack/cocaine and amphetamines EXAM Physical Exam Const Vital Signs: 10/21/24 21:46 10/21/24 23:15 10/21/24 23:35 Temperature 98.2 F 97.7 F L Temperature Source Oral Temporal Pulse Rate 102 H 92 89 Respiratory Rate 18 19 H 16 Blood Pressure 137/85 H 104/55 L Blood Pressure Mean 102 71 Blood Pressure Source Monitor Blood Pressure Position Supine Blood Pressure Location Right Arm Pulse Ox 100 97 97 Oxygen Delivery Method Room Air Room Air Room Air MDM MDM MDM Narrative Medical decision making narrative: 28-year-old male with history of alcohol abuse, polysubstance abuse presents for alcohol detox. Patient states he drinks approximately 15 tall boys a day. States his last drink was prior to arrival although patient is very vague and will not tell me what he drank. On chart review, patient was just admitted to our detox center on 10/19/2024. I did look for the discharge summary in which one was not present. I do not know if he was discharged or if he left AGAINST MEDICAL ADVICE. When asked he will not answer. He endorses some nausea. Differential diagnosis includes but is not limited to alcohol intoxication, substance intoxication, electrolyte abnormality, dehydration. NS bolus and Zofran ordered. Patient placed on CIWA. Laboratory workup ordered including alcohol and drug screen. Alcohol level 120. CMP unremarkable. Magnesium level unremarkable. Urine drug screen positive for oxycodone, barbiturates, benzodiazepines. CBC pending at this time given a delay in lab needing to clean the machine. Patient will warrant admission for alcohol detox. Hospitalist consulted for admission. Patient discussed with Dr. Fair accepted admission. Impression: 1. Alcohol intoxication 2. Requesting alcohol detox 2. History of polysubstance abuse Lab Data Labs: Laboratory Results - last 24 hr 10/21/24 23:27 Sodium 142 Potassium 4.0 Chloride 104 Carbon Dioxide 23.0 Anion Gap 15 BUN 5 Creatinine 0.76 Estim Creat Clear Calc 155.50 Est GFR (MDRD) Non-Af 126 BUN/Creatinine Ratio 6.5 L Glucose 98 Calcium 9.3 Magnesium 2.1 Total Bilirubin 0.25 AST 25 ALT 20 Alkaline Phosphatase 121 Total Protein 7.2 Albumin 4.0 Globulin 3.2 Albumin/Globulin Ratio 1.3 Urine Opiates Screen NEGATIVE U Buprenorphine Qual NEGATIVE Ur Oxycodone Screen PRESUMPTIVE POSITIVE Urine Methadone Screen NEGATIVE Urine Fentanyl Screen NEGATIVE Ur Barbiturates Screen PRESUMPTIVE POSITIVE Ur Phencyclidine Scrn NEGATIVE Ur Amphetamines Screen NEGATIVE U Benzodiazepines Scrn PRESUMPTIVE POSITIVE Urine Cocaine Screen NEGATIVE U Cannabinoids Screen NEGATIVE Ethyl Alcohol 120.0 H Discharge Plan Triage Chief Complaint: ETOH Intox ED Provider: Puma Burroughs Dx/Rx/DC Orders Prescriptions: No Action oxycodone 5 mg tablet 5 mg PO Q6H PRN (Reason: pain) 1 Days Qty: 4 0RF amoxicillin-pot clavulanate 400-57 mg/5 mL suspension for reconstitution PO chlorhexidine gluconate 0.12 % mouthwash Patient Comments: [NO ORIGINAL SIG] amoxicillin-pot clavulanate 875-125 mg tablet 1 tab PO BID 5 Days Qty: 10 0RF Primary Care Provider: Care Physician,No Primary Referrals: Care Physician,No Primary [Primary Care Provider] - Print Language: Ghanaian
--- OUTSIDE RECORDS SUMMARY | 2024-10-21 23:25 | XMS RPT_ITS | CCD ---
Author Organization [facility] CliniSyny Care Team Providers Care Seamer Elastic Band Name Role Phone Dr. Fior Ridley Emergency Provider Care Physician, No Primary Primary Care Provider Unavailable Dr. Ashley Hirsch Admit Provider Dr. Ashley Hirsch Attending Provider Dr. Ashley Hirsch Other Provider Dr. Carmelo Albert Attending Provider [phone] Carmelo Albert Other Provider Care Physician, No Primary Primary Care Provider Unavailable MD Daquan Reid Emergency Provider Dr. Stan Thomas Admit Provider Dr. Stan Thomas Attending Provider Dr. Stan Thomas Other Provider [phone] RACHEL BOB DO Primary Care Unavailable RACHEL BBO DO Attending Unavailable RACHEL BOB DO Admitting Unavailable Care Physician, No Primary Primary Care Provider Unavailable Tang RAYA, Dr. Jacquie Cool Admit Provider Tang RAYA, Dr. Jacquie Cool Other Provider Dr. Rachel Stephen MD Attending Provider Unavaila jennifer Beckwith MD, Dr. Jacquie Cool Attending Provider Darlene NIELSEN, Dr. Shaw Emergency Provider Zafar RAYA, Dr. Jeffries Other Provider Unavailable No, Physician Primary Care Provider Unavailabl e Darlene NIELSEN, Dr. Shaw Attending Provider Leila NIELSEN, Dr. Waddell Emergency Provider Chevy RAYA, Dr. Quintero Admit Provider Chevy RAYA, Dr. Quintero Attending Provider MARILOU VASQUEZ Consulting Unavailabl ANAID Palomino Attending Unavailable NO, PHYSICIAN Primary Care Unavailable NO, PHYSICIAN Primary Care Unavailable CADENA, GEOFF MENDOZA Admitting Unavailable CADENA, GEOFF MENDOZA Referring Unavailable NO, PHYSICIAN Primary Care Unavailable ONE, TRAUMA Attending Unavailable MARILOU VASQUEZ Consulting Unavailabl e NAHUM, SHELLIE Admitting Unavailable DEPPENKAWN Consulting Unavailable NO, PHYSICIAN Primary Care Unavailable ONE, TRAUMA Attending Unavailable MARILOU VASQUEZ Consulting Unavailabl e HOLLI DING Admitting Unavailable ONE, TRAUMA Consulting Unavailable LATONYA, JOSUE Consulting Unavailable ONE, TRAUMA Attending Unavailable NO, PHYSICIAN Primary Care Unavailable [facility] Don[facility]ue Consulting Unavaila ble HOLLI DING Admitting Unavailable SYSTEM, PROVIDER NOT IN Referring Unavaila ble LATONYA, JOSUE Consulting Unavailable NO, PHYSICIAN Primary Care Unavailable DAWSON PEDROZA Consulting Unavailable KRISTIAN PAREKH Attending Unavailab NORA Garcia Admitting Rosemarie vailable ONE, TRAUMA Consulting Unavailable NO, PHYSICIAN Primary Care Unavailable CORONA GUERRERO II Attending Unavailkeily Reece MD, Dr. Quintero Admit Provider Chevy RAYA, Dr. Quintero Other Provider Raul RAYA, Dr. Pratik Mtz Attending Provider Raul RAYA, Dr. Pratik Mtz Other Provider [phone] Rachel Stephen Attending Unavailable Jacquie Beckwith Admitting Unavailable Jacquie Beckwith Consulting Unavailable Care Physician, No Primary Primary Care Unava ilable Rachel Stephen Consulting Unavailable Jacquie Beckwith Attending Unavailable Chevy, Ingrid Consulting Unavailable Chevy, Ingrid Attending Unavailable Care Physician, No Primary Primary Care Unava ilable Ingrid Reece Admitting Unavailable Pratik Carter Attending Unavailable Pratik Carter Consulting Unavailable Care Physician, No Primary Primary Care Unava ilable Rachel Stephen Attending Unavailable Jacquie Beckwith Admitting Unavailable Jacquie Beckwith Consulting Unavailable Chevy, Ingrid Consulting Unavailable Pratik Carter Attending Unavailable Chevy, Ingrid Admitting Unavailable Care Physician, No Primary Primary Care Unava ilable Bairon Dee Attending Unavailable Care Physician, No Primary Primary Care Unava ilable Care Physician, No Primary Primary Care Unava ilable Colin Colon Attending Unavailable Care Physician, No Primary Primary Care Unava ilable Colin Colon Attending Unavailable Medications Current Medications Medication Drug Class(es) [...] hours, First dose (after last modification) on 8/29/25 at 0400 Start: 10-04-2024 End: 10-05-2024 take [...] . 10/11/2024 Discontinued (Stop Taking at Discharge) amoxicillin 80 mg/ml / clavulanate 11.4 mg/ml oral suspension (11 sources) Penicillin-class Antibacterial Start: 10-18-2024 Amoxicillin-Pot Clavulanate 400-57 mg/5 mL suspension for reconstitution Active mL PO October 18, 2024 12:00am facial infection Start: 10-09-2024 End: 10-11-2024 take 1 tablet by mouth every twelve hours 1 tablet, Oral, Every 12 hours scheduled, First dose on Sat10/09/24 at 2100, For 7 days, Indication: Skin/Soft Tissue Infection Start: 10-05-2024 End: 10-28-2024 take 875 mg by mouth every twelve hours amoxicillin-clavulanate (AUGMENTIN) 400-57 mg/5 mL suspension Take 10.9 mL (875 mg total) by mouth every 12 (twelve) hours for 6 days . Discard remainder 200 mL 10/14/2024 10/14/2024 Discontinued Start: 10-05-2024 End: 10-05-2024 take 875 mg by mouth every twelve hours 875 mg, Oral, Every 12 hours scheduled, First dose on Sat10/05/24 at 0130, For 15 doses, Indication: Other (specify), Indication: mandible fx chlordiazePOXIDE hydrochloride 25 mg oral capsule (1 source) Benzodiazepine Start: 06-20-2023 End: 07-04-2023 chlordiazePOXIDE 25 mg oral capsule Dose : 25 mg = 1 cap(s), Oral, TID, X 14 day(s), # 42 cap(s), 0 Refill(s), 07/04/23 9:43:00 PM EDT, Pharmacy: [facility], Seizure due to alcohol withdrawal Alcohol dependence, 180.3, cm, 06/20/23 5:41:00 EDT, Height, 95.3, kg, 06/20/23 5:41:00 EDT, Dosing Weight Start Date: 06/20/23 Stop Date: 07/04/23 Status: Ordered chlorhexidine gluconate 1.2 mg/ml mouthwash (10 sources) Start: 10-18-2024 Chlorhexidine Gluconate 0.12 % mouthwash Active October 18, 2024 12:00am jaw surgery Start: 10-12-2024 End: 10-14-2024 15 mL, Swab, [...] on Sat10/05/24 at 0900, Do Not Swallow cloNIDine hydrochloride 0.1 mg oral tablet (5 sources) Central alpha-2 Adrenergic Agonist take 1 tablet by mouth twice daily cloNIDine (Catapres) 0.1 MG tablet Take 0.1 mg by mouth 2 times daily. Active naloxone (NARCAN) 4 mg/actuation [place] (4 sources) Start: naloxone (NARCAN) 4 mg/actuation [place] Administer 1 spray into one nostril for known or suspected opioid overdose. If patient worsens or does not respond, may repeat in 2-3 minutes. . 2 each 1 10/09/2024 Active Start: 10-09-2024 naloxone (NARC AN) 4 mg/actuation [place] Administer 1 spray into one nostril for [...] Active oxyCODONE hydrochloride 5 mg oral tablet (14 sources) Opioid Agonist Start: 10-14-2024 End: 10-17-2024 [...] day . 180 tablet 10/09/2024 10/13/2024 Discontinued ampicillin-sulbactam (UNASYN) 3000 mg in sodium chloride [...] prior to incision., Indication (PRE PROCEDURE): Plastics 2 ml diazePAM 5 mg/ml prefilled syringe (1 source) Benzodiazepine Start: 10-04-2024 End: 10-04-2024 5 mg, Intravenous, Once, On Sat10/04/24 at 1850, For 1 dose, VESICANT docusate sodium 50 mg / sennosides, [facility] 8.6 mg oral tablet (4 sources) Start: [...] 10-08-2024 50 mcg, Intravenous, Once, O n Sat10/08/24 at 1445, For 1 dose folic acid 1 mg oral tablet (4 sources) Start: 10-13-2024 End: 10-14-2024 take 1 mg by mouth once daily 1 mg, Oral, Daily, First dose on Sat10/13/24 at 1000 Start: 10-08-2024 End: 10-11-2024 take 1 mg by mouth once daily 1 mg, Oral, Daily (in th e afternoon), First dose on Sat10/08/24 at 1645 [...] severe pain, Starting on Sat10/04/24 at 0046 tdpziyop-nki-vnjfrm s gluconate liquid 15 mL (1 source) [...] For 102 hours, VESICANT polyethylene glycol 3350 96168 mg powder for oral solution (1 source) [...] End: 10-14-2024 sodium chloride (PF) (NS) fl us 5 mL Start: 10-13-2024 End: 10-13-2024 Starting [...] mL, Intravenous, Once in imaging, contrast, Per assistant finance manager (Radiology) for line patency check prior to [...] ( in the afternoon), First dose on Sat10/08/24 at [...] uncomplicated] Onset: 06-20-2023 08-05-2022 Chronic Alcohol-related disorders (6 sources) Alcohol use, unspecified with intoxication, unspecified; Translations: [Acute alcoholic intoxication] Onset: 10-18-2024 03-23-2023 Episodic Anxiety disorders (2 sources) Anxiety disorder; Translations: [Other specified anxiety disorders] Onset: 06-20-2023 Chronic Conditions associated with dizziness or vertigo (7 sources) Lightheadedness; Translations: [Dizziness and giddiness] 06-20-2023 [...] Open wounds of head; neck; and trunk (5 sources) Laceration without foreign body of scalp, initial encounter; Translations: [Laceration without foreign body of other part of head, initial encounter] Onset: 09-27-2024 Episodic Other injuries and conditions due to external causes (5 sources) Traumatic injury; Translations: [Injury, unspecified, initial encounter] Onset: 10-04-2024 10-04-2024 Episodic Other injuries and conditions due to external causes (1 source) Unspecified injury of head, initial encounter; Translations: [Unspecified injury of head, initial encounter] Onset: 10-07-2024 Episodic Other nervous system disorders (7 sources) Paresthesia; Translations: [Paresthesia of skin] 06-20-2023 [...] [Pain, unspecified] 01-28-2024 Episodic Residual codes; unclassified (4 sources) Tobacco use and exposure - finding; Translations: [Tobacco use] 10-02-2024 Episodic Residual codes; unclassified (6 sources) Acute pain; Translations: [Pain, unspecified] Onset: 10-02-2024 10-02-2024 Episodic Residual codes; unclassified (6 sources) History of drug therapy; Translations: [Personal history of other specified conditions] Onset: 10-02-2024 10-02-2024 Episodic Residual codes; unclassified (2 sources) Other specified postprocedural states; Translations: [Other specified postprocedural states] Onset: 10-18-2024 Episodic Residual codes; unclassified (1 source) Altered [...] stimulant abuse, uncomplicated] Onset: 06-11-2024 06-11-2024 Chronic Comment on above: crack/cocaine and am phetamines Substance-related disorders (14 sources) Cocaine user; Translations: [Cocaine use, unspecified, uncomplicated] Onset: 10-02-2024 Resolved: 10-05-2024 10-02-2024 Episodic Unclassified (2 sources) Weakness, Gen; Translations: [Weakness, Gen] Onset: 06-24-2024 Unclassified (2 sources) Alcohol Problem; Translations: [Alcohol Problem] Onset: 06-24-2024 Unclassified (2 sources) Extremity Weakness; Translations: [Extremity Weakness] Onset: 06-10-2024 Unclassified (13 sources) Admitted to alcohol detoxification center 10-01-2024 Unclassified (1 source) Patient's noncompliance with other medical treatment and regimen due to unspecified reason; Translations: [Patient's noncompliance with other medical treatment and regimen due to unspecified reason] Onset: 10-12-2024 Unclassified (2 sources) Trauma: 2 Open Jaw Fx, Intoxication Onset: 10-02-2024 Unclassified (1 source) Alcohol abuse with withdrawal, unspecified; Translations: [Alcohol abuse with withdrawal, unspecified] Onset: 10-07-2024 Past or Other Problems Problem Classification Problem [...] Translations: [Pain, unspecified] Onset: 01-28-2024 Episodic Unclassified (19 sources) Readiness finding; Translations: [Desire for detoxification] 08-05-2022 Unclassified (1 source) Patient's noncompliance with other medical treatment and regimen due to unspecified reason; Translations: [Patient's noncompliance with other medical treatment and regimen due to unspecified reason] Onset: 10-12-2024 Results Test Name Value Interpretation Reference Range Facility Absolute lymphocyte countOrd ered By: Ingrid Reece on 10-19-2024 Lymphocytes Auto (Unsp spec) [#/Vol] 1.68 10*3/uL 0.83-4.51 [facility] Absolute neutrophil countOrd ered By: Ingrid Reece on 10-19-2024 Neutrophils (Bld) [#/Vol] 3.5 10*3/uL 2.0-7.7 [facility] Anion gap in Serum or Plasma Ordered By: Ingrid Reece on 10-19-2024 Anion gap [Moles/Vol] 11 mmol/L 5-15 [facility] Automated lymphocyte count a s percentage of total leukocytesOrdered By: Ingrid Reece on 10-19-2024 Lymphocytes/100 WBC Auto (Unsp spec) 28.1 % 19- [facility] BUN/creatinine ratioOrdered By: Ingrid Reece on 10-19-2024 Urea nitrogen/Creatinine [Mass ratio] 20.3 mg/mg High 10-20 [facility] Basophil percentageOrdered B y: Ingrid Reece on 10-19-2024 Basophils/100 WBC (Bld) 1.3 % High 0-1 [facility] Bilirubin, totalOrdered By: Ingrid Reece on 10-19-2024 Bilirubin [Mass/Vol] 0.20 mg/dL 0.00-1.30 [facility] CBC W/Diff, Automatedon Absolute Lymph 1.68 X10 3/uL Normal 0.83-4.51 [facility] Comment on above: Performed By: #### L 100.0100, L500.4050 ####[facility] [address] [place], [address] Absolute Neut 3.5 X10 3/uL Normal 2.0-7.7 [facility] Comment on above: Performed By: #### L 100.0100, L500.4050 ####[facility] [address] [place], [address] Basophils/100 WBC (Bld) 1.3 % High 0-1 [facility] Comment on above: Performed By: #### L 100.0100, L500.4050 ####[facility] [address] [place], [address] Eosinophils/100 WBC (Bld) 2.7 % Normal 0-5 [facility] Comment on above: Performed By: #### L 100.0100, L500.4050 ####[facility] [address] [place], [address] Erythrocyte distribution width (RBC) [Ratio] 11.9 % Normal 11.6-14.6 [facility] Comment on above: Performed By: #### L 100.0100, L500.4050 ####[facility] [address] [place], [address] Hematocrit (Bld) [Volume fraction] 36.4 % Low 40-54 [facility] Comment on above: Performed By: #### L 100.0100, L500.4050 ####[facility] [address] [place], [address] Hemoglobin (Bld) [Mass/Vol] 12.8 g/dL Low 13.0-16.5 [facility] Comment on above: Performed By: #### L 100.0100, L500.4050 ####[facility] [address] [place], [address] IG% 0.500 Normal 0.0-0.9 [facility] Comment on above: Result Comment: IG% - Immature Granulocytes (promyelocytes, myelocytes and metamyelocytes) > 1% indicates that a LEFT SHIFT is Present. Performed By: #### L 100.0100, L500.4050 ####[facility] [address] [place], [address] Lymphocytes/100 WBC (Bld) 28.1 % Normal 19-41 [facility] Comment on above: Performed By: #### L 100.0100, L500.4050 ####[facility] [address] [place], [address] MCH (RBC) [Entitic mass] 34.0 pg High 27.0-32.0 [facility] Comment on above: Performed By: #### L 100.0100, L500.4050 ####[facility] [address] [place], [address] MCHC (RBC) [Mass/Vol] 35.2 g/dL Normal 32-36 [facility] Comment on above: Performed By: #### L 100.0100, L500.4050 ####[facility] [address] [place], [address] MCV (RBC) [Entitic vol] 96.6 fL High 80-94 [facility] Comment on above: Performed By: #### L 100.0100, L500.4050 ####[facility] [address] [place], [address] Monocytes/100 WBC (Bld) 9.2 % Normal 0-10 [facility] Comment on above: Performed By: #### L 100.0100, L500.4050 ####[facility] [address] [place], [address] Neutrophils/100 WBC (Bld) 58.2 % Normal 47-70 [facility] Comment on above: Performed By: #### L 100.0100, L500.4050 ####[facility] [address] [place], [address] Nucleated RBC (Bld) [#/Vol] 0 10*3/uL Normal 0-5 [facility] Comment on above: Performed By: #### L 100.0100, L500.4050 ####[facility] [address] [place], [address] Platelet mean volume (Bld) [Entitic vol] 9.1 fL Normal 6.2-12.0 [facility] Comment on above: Performed By: #### L 100.0100, L500.4050 ####[facility] [address] [place], [address] Platelets (Bld) [#/Vol] 424 10*3/uL Normal 150-450 [facility] Comment on above: Performed By: #### L 100.0100, L500.4050 ####[facility] [address] [place], [address] RBC (Bld) [#/Vol] 3.77 10*6/uL Low 4.6-6.2 [facility] Comment on above: Performed By: #### L 100.0100, L500.4050 ####[facility] [address] [place], [address] RDW SD 41.5 fl Normal 35.1-43.9 [facility] Comment on above: Performed By: #### L 100.0100, L500.4050 ####[facility] [address] [place], [address] WBC (Bld) [#/Vol] 6.0 10*3/uL Normal 4.4-11.0 [facility] Comment on above: Performed By: #### L 100.0100, L500.4050 ####[facility] [address] [place], [address] Carbon dioxide, total [Moles /volume] in Central venous bloodOrdered By: Ingrid Reece on 10-19-2024 CO2 [Moles/Vol] 23.5 mmol/L 21.0-32.0 [facility] Chloride assayOrdered By: Katheryn Reece on 10-19-2024 Chloride [Moles/Vol] 104 mmol/L 98-108 [facility] Comprehensive Metabolic Prof ilon 10-19-2024 Albumin [Mass/Vol] 3.4 g/dL Low 3.5-5.0 [facility] Comment on above: Performed By: #### L 100.0100, L500.4050 ####[facility] [address] [place], [address] Albumin/Globulin [Mass ratio] 1.3 {ratio} Normal 0.9-2.4 [facility] Comment on above: Performed By: #### L 100.0100, L500.4050 ####[facility] [address] [place], [address] ALK PHOS 101 U/L Normal 40-129 [facility] Comment on above: Performed By: #### L 100.0100, L500.4050 ####[facility] [address] [place], [address] ALT [Catalytic activity/Vol] 13 U/L Normal <=46 [facility] Comment on above: Performed By: #### L 100.0100, L500.4050 ####[facility] [address] [place], [address] AST [Catalytic activity/Vol] 19 U/L Normal <=37 [facility] Comment on above: Performed By: #### L 100.0100, L500.4050 ####[facility] [address] [place], [address] Bilirubin [Mass/Vol] 0.20 mg/dL Normal 0.00-1.30 [facility] Comment on above: Performed By: #### L 100.0100, L500.4050 ####[facility] [address] [place], [address] BUN/CRE 20.3 RATIO High 10-20 [facility] Comment on above: Performed By: #### L 100.0100, L500.4050 ####[facility] [address] [place], [address] Calcium [Mass/Vol] 8.5 mg/dL Normal 7.6-11.0 [facility] Comment on above: Performed By: #### L 100.0100, L500.4050 ####[facility] [address] [place], [address] Chloride [Moles/Vol] 104 mmol/L Normal 98-108 [facility] Comment on above: Performed By: #### L 100.0100, L500.4050 ####[facility] [address] [place], [address] CO2 [Moles/Vol] 23.5 mmol/L Normal 21.0-32.0 [facility] Comment on above: Performed By: #### L 100.0100, L500.4050 ####[facility] [address] [place], [address] Creatinine [Mass/Vol] 0.61 mg/dL Low 0.70-1.20 [facility] Comment on above: Performed By: #### L 100.0100, L500.4050 ####[facility] [address] [place], [address] ECRCL 193.74 ml/min Normal 50-250 [facility] Comment on above: Performed By: #### L 100.0100, L500.4050 ####[facility] [address] [place], [address] GAP 11 Normal 5-15 [facility] Comment on above: Performed By: #### L 100.0100, L500.4050 ####[facility] [address] [place], [address] GFR/1.73 sq M.predicted among non-blacks MDRD (S/P/Bld) [Vol rate/Area] 135 mL/min/{1.73_m2} Normal >60 [facility] Comment on above: Result Comment: mL/m in/1.73m2 CKD-EPI Creatinine Equation (2020) Performed By: #### L 100.0100, L500.4050 ####[facility] [address] [place], [address] Globulin (S) [Mass/Vol] 2.6 g/dL Normal 2.2-4.2 [facility] Comment on above: Performed By: #### L 100.0100, L500.4050 ####[facility] [address] [place], [address] Glucose [Mass/Vol] 174 mg/dL High 70-99 [facility] Comment on above: Performed By: #### L 100.0100, L500.4050 ####[facility] [address] [place], [address] Potassium [Moles/Vol] 3.6 mmol/L Normal 3.3-5.1 [facility] Comment on above: Performed By: #### L 100.0100, L500.4050 ####[facility] [address] [place], [address] Sodium [Moles/Vol] 138 mmol/L Normal 133-145 [facility] Comment on above: Performed By: #### L 100.0100, L500.4050 ####[facility] [address] [place], [address] T PROT 5.9 g/dL Normal 5.9-8.4 [facility] Comment on above: Performed By: #### L 100.0100, L500.4050 ####[facility] [address] [place], [address] Urea nitrogen [Mass/Vol] 12 mg/dL Normal 4-19 [facility] Comment on above: Performed By: #### L 100.0100, L500.4050 ####[facility] [address] [place], [address] Electrocardiogram reportOrde red By: Rafael Brooks on 10-19-2024 EKG study [facility] [address] [place] [address] 12 Lead EKG 10/18/24 1645 MR#: [id number] Acct: [id number] Name: KADE GONZALEZ Rep #:[id number] : 1995 28 From: Rafael beavers MD Attending Dr: Dr. Pratik Carter MD Status: ADM IN Ordering Dr: Bairon Dee DO Date: 0 10/18/24 Location: [facility] Sex: M C Admitted: 10/18/24 Test Reason : DETOX Blood Pressure : */* mmHG Vent. Rate : 94 BPM Atrial Rate : 94 BPM P-R Int : 122 ms QRS Dur : 84 ms QT Int : 350 ms P-R-T Axes : 61 73 19 degrees QTcB Int : 437 ms Normal sinus rhythm Normal ECG Confirmed by Rafael Brooks ([id number]), mapping editor KELSEY BISHOP ([id number]) on 10/19/2024 9:52:49 AM Referred By: Confirmed By: Rafael Brooks 10/19/24 0952 Date _ Rafael Brooks MD CC: Dr. Pratik Carter MD; Dr. Bairon Dee DO; No Primary Care Physician ~ Signed [facility] Other Phone: Eosinophil percentageOrdered By: Ingrid Reece on 10-19-2024 Eosinophils/100 WBC (Bld) 2.7 % 0-5 [facility] Erythrocyte distribution wid th ratioOrdered By: Ingrid Reece on 10-19-2024 Erythrocyte distribution width (RBC) [Ratio] 11.9 % 11.6-14.6 [facility] Erythrocyte distribution wid th standard deviationOrdered By: Ingrid Reece on 10-19-2024 Erythrocyte distribution width (RBC) [Ratio] 41.5 fl 35.1-43.9 [facility] Glomerular filtration rate ( GFR) estimation/1.73 sq m using serum, plasma, or whole bOrdered By: Ingrid Reece on 10-19-2024 GFR/1.73 sq M.predicted among non-blacks MDRD (S/P/Bld) [Vol rate/Area] 135 mL/min/{1.73_m2} >60 [facility] Comment on above: mL/min/1.73m2 CKD-EP I Creatinine Equation (2020) Hematocrit Auto (Bld) [Volum e fraction]Ordered By: Ingrid Reece on 10-19-2024 Hematocrit (Bld) [Volume fraction] 36.4 % Low 40-54 [facility] Hemoglobin measurementOrdere d By: Ingrid Reece on 10-19-2024 Hemoglobin (Bld) [Mass/Vol] 12.8 g/dL Low 13.0-16.5 [facility] Immature granulocytes/100 WB C Auto (Bld)Ordered By: Ingrid Reece on 10-19-2024 Immature granulocytes/100 WBC (Bld) 0.500 % 0.0-0.9 [facility] Comment on above: IG% - Immature Granu locytes (promyelocytes, myelocytes and metamyelocytes) > 1% indicates that a LEFT SHIFT is Present. Laboratory - Chemistry and C hemistry - challengeOrdered By: Ingrid Reece on 10-19-2024 AST [Catalytic activity/Vol] 19 U/L <38 [facility] MCV (mean corpuscular volume ) determinationOrdered By: Ingrid Reece on 10-19-2024 MCV (RBC) [Entitic vol] 96.6 fL High 80-94 [facility] Mean corpuscular hemoglobin (MCH) determinationOrdered By: Ingrid Reece on 10-19-2024 MCH (RBC) [Entitic mass] 34.0 pg High 27.0-32.0 [facility] Mean corpuscular hemoglobin concentration (MCHC) determinationOrdered By: Ingrid Reece on 10-19-2024 MCHC (RBC) [Mass/Vol] 35.2 g/dL 32-36 [facility] Mean platelet volume determi nationOrdered By: Ingrid Reece on 10-19-2024 Platelet mean volume (Bld) [Entitic vol] 9.1 fL 6.2-12.0 [facility] Monocyte percentageOrdered B y: Ingrid Reece on 10-19-2024 Monocytes/100 WBC (Bld) 9.2 % 0-10 [facility] Neutrophil percentageOrdered By: Ingrid Reece on 10-19-2024 Neutrophils/100 WBC (Bld) 58.2 % 47-70 [facility] [facility] Nucleated red blood cell per centageOrdered By: Ingrid Reece on 10-19-2024 Nucleated RBC/100 WBC (Bld) [Ratio] 0 % 0-5 [facility] Platelet countOrdered By: Katheryn Reece on 10-19-2024 Platelets (Bld) [#/Vol] 424 10*3/uL 150-450 [facility] Potassium measurement (mass/ volume)Ordered By: Ingrid Reece on 10-19-2024 Potassium (Unsp spec) [Mass/Vol] 3.6 mmol/L 3.3-5.1 [facility] RBC Auto (Bld) [#/Vol]Ordere d By: Ingrid Reece on 10-19-2024 RBC (Bld) [#/Vol] 3.77 10*6/uL Low 4.6-6.2 [facility] Serum creatinine measurement (mass/volume)Ordered By: Ingrid Reece on 10-19-2024 Creatinine [Mass/Vol] 0.61 mg/dL Low 0.70-1.20 [facility] Serum globulin measurementOr dered By: Ingrid Reece on 10-19-2024 Globulin (S) [Mass/Vol] 2.6 g/dL 2.2-4.2 [facility] Serum glucose measurement (m ass/volume)Ordered By: Ingrid Reece on 10-19-2024 Glucose [Mass/Vol] 174 mg/dL High 70-99 [facility] Serum or plasma alanine saldaña otransferase (ALT) measurementOrdered By: Ingrid Reece on 10-19-2024 ALT [Catalytic activity/Vol] 13 U/L <47 [facility] Serum or plasma albumin gaetano urement (mass/volume)Ordered By: Ingrid Reece on 10-19-2024 Albumin [Mass/Vol] 3.4 g/dL Low 3.5-5.0 [facility] Serum or plasma albumin/glob ulin mass ratioOrdered By: Ingrid Reece on 10-19-2024 Albumin/Globulin [Mass ratio] 1.3 {ratio} 0.9-2.4 [facility] Serum or plasma alkaline fareed sphatase measurementOrdered By: Ingrid Reece on 10-19-2024 ALP [Catalytic activity/Vol] 101 U/L 40-129 [facility] Serum or plasma calcium gaetano urement (mass/volume)Ordered By: Ingrid Reece on 10-19-2024 Calcium [Mass/Vol] 8.5 mg/dL 7.6-11.0 [facility] Serum or plasma urea nitroge n measurement (mass/volume)Ordered By: Ingrid Reece on 10-19-2024 Urea nitrogen [Mass/Vol] 12 mg/dL 4-19 [facility] Sodium levelOrdered By: Hu Reece on 10-19-2024 Sodium [Moles/Vol] 138 mmol/L 133-145 [facility] Total proteinOrdered By: Deepika Reece on 10-19-2024 Protein [Mass/Vol] 5.9 g/dL 5.9-8.4 [facility] White blood cell (WBC) count Ordered By: Ingrid Reece on 10-19-2024 WBC (Bld) [#/Vol] 6.0 10*3/uL 4.4-11.0 [facility] 12 Lead EKGon 10-18-2024 12 Lead EKG [facility] [address] [place] [address] 12 Lead EKG 10/18/24 1645 MR#: [id number] Acct: [id number] Name: KADE GONZALEZ Rep #: [id number] 2 : 1995 28 From: Rafael Brooks MD Attending Dr: Dr. Pratik Carter MD Status : ADM IN Ordering Dr: Bairon Dee DO Date: 10/18/24 Location: MS3 Sex: M C Admitted: 10/18/24 Test Reason : DETOX Blood Pressure : */* mmHG Vent. Rate : 94 BPM Atrial Rate : 94 BPM P-R Int : 122 ms QRS Dur : 84 ms QT Int : 350 ms P-R-T Axes : 61 73 19 degrees QTcB Int : 437 ms Normal sinus rhythm Normal ECG Confirmed by Rafael Brooks ([id number]), mapping editor KELSEY BISHOP ([id number]) on 10/19/2024 9:52:49 AM Referred By: Confirmed By: Rafael Brooks 10/19/24 0952 Date Rafael Brooks MD CC: Dr. Pratik Carter MD; Dr. Bairon Dee DO; No Primary Care Physician Signed Normal [facility] ACETAMINOPHEN LEVELon 2024 ACETAMINOPHEN < Normal 0.0-30.0 [facility] Comment on above: Order Comment: Thera peutic Range: 10-30 mcg/mLPotentially Toxic: >200 mcg/mL (4 hours post dose) >100 mcg/mL (8 hours post dose) >50 mcg/mL (12 hours post dose) Performed By: #### 4 5033 #### [facility] [address], [place] [address] Travis Christensen M.D. [id number] ALCOHOL, [facility] ALCOHOL MEDICAL 315.0 mg/dL High <10.0 [facility] Comment on above: Performed By: #### 4 5866 #### [facility] [address], [place] [address] Travis Christensen M.D. [id number] Absolute lymphocyte countOrd ered By: Bairon Dee on 10-18-2024 Lymphocytes Auto (Unsp spec) [#/Vol] 1.14 10*3/uL 0.83-4.51 [facility] Absolute neutrophil countOrd ered By: Bairon Dee on 10-18-2024 Neutrophils (Bld) [#/Vol] 8.5 10*3/uL High 2.0-7.7 [facility] Alcohol, Blood (Medical)-Ser umon 10-18-2024 SERUM ETOH < 10.1 Normal <=10.0 [facility] Comment on above: Result Comment: This test is for medical purposes only. The legal definition of intoxication varies according to local law. Performed By: #### L 505.5000, L100.0100, L500.2500, L501.9100 ####[facility] [address] [place], [address] Amphetamine detection with 1 000 ng/mL as cutoffOrdered By: Bairon Dee on 10-18-2024 Amphetamines Screen method >1000 ng/mL Ql (U) Positive < 200 ng/mL [facility] Comment on above: If confirmation test ing is needed, a separate order will be required to send out testing to the reference laboratory. Anion gap in Serum or Plasma Ordered By: Bairon Dee on 10-18-2024 Anion gap [Moles/Vol] 17 mmol/L High 5-15 [facility] Automated lymphocyte count a s percentage of total leukocytesOrdered By: Bairon Dee on 10-18-2024 Lymphocytes/100 WBC Auto (Unsp spec) 11.1 % Low 19-41 [facility] BASIC METABOLIC PANELon 09-0 Anion gap [Moles/Vol] 17 mmol/L Normal 10-20 [facility] Comment on above: Order Comment: [facility] has implemented the eGFR calculation approach that does not have a coefficient for race that conforms to the NKF-ASN Task Force Recommendations. Performed By: #### 4 4014 #### [facility] [address] [place] [address] Pratik Dukes M.D. [id number] Calcium [Mass/Vol] 8.9 mg/dL Normal 8.4-10.2 [facility] Comment on above: Order Comment: [facility] has implemented the eGFR calculation approach that does not have a coefficient for race that conforms to the NKF-ASN Task Force Recommendations. Performed By: #### 4 4014 #### [facility] [address] [place] [address] Pratik Dukes M.D. [id number] Chloride [Moles/Vol] 106 mmol/L Normal 98-108 [facility] Comment on above: Order Comment: [facility] has implemented the eGFR calculation approach that does not have a coefficient for race that conforms to the NKF-ASN Task Force Recommendations. Performed By: #### 4 4014 #### [facility] [address] [place] [address] Pratik Dukes M.D. [id number] Creatinine [Mass/Vol] 0.64 mg/dL Normal 0.50-1.30 [facility] Comment on above: Order Comment: [facility] has implemented the eGFR calculation approach that does not have a coefficient for race that conforms to the NKF-ASN Task Force Recommendations. Performed By: #### 4 4014 #### [facility] [address] [place] [address] Pratik Dukes M.D. [id number] EGFR 133 mL/min/1.73 m2 Normal >=60 [facility] Comment on above: Order Comment: [facility] has implemented the eGFR calculation approach that does not have a coefficient for race that conforms to the NKF-ASN Task Force Recommendations. Result Comment: Luzma mated GFR was calculated using the 2020 CKD-EPI creatinine equation. Performed By: #### 4 4014 #### [address] [address] Pratik Dukes M.D. [id number] Glucose [Mass/Vol] 86 mg/dL Normal 65-99 [facility] Comment on above: Order Comment: [facility] has implemented the eGFR calculation approach that does not have a coefficient for race that conforms to the NKF-ASN Task Force Recommendations. Performed By: #### 4 4014 #### [facility] [address] [place] [address] Pratik Dukes M.D. [id number] HCO3 (Bld) [Moles/Vol] 23 mmol/L Normal 21-32 [facility] Comment on above: Order Comment: [facility] has implemented the eGFR calculation approach that does not have a coefficient for race that conforms to the NKF-ASN Task Force Recommendations. Performed By: #### 4 4014 #### [facility] [address] [place], [place] [address] Pratik Dukes M.D. [id number] Potassium [Moles/Vol] 4.4 mmol/L Normal 3.5-5.1 [facility] Comment on above: Order Comment: [facility] has implemented the eGFR calculation approach that does not have a coefficient for race that conforms to the NKF-ASN Task Force Recommendations. Performed By: #### 4 4014 #### [facility] [address] [place] [address] Pratik Dukes M.D. [id number] Sodium [Moles/Vol] 142 mmol/L Normal 135-145 [facility] Comment on above: Order Comment: [facility] has implemented the eGFR calculation approach that does not have a coefficient for race that conforms to the NKF-ASN Task Force Recommendations. Performed By: #### 4 4014 #### [facility] [address] [place] [address] Pratik Dukes M.D. [id number] Urea nitrogen [Mass/Vol] 5 mg/dL Low 8-25 [facility] Comment on above: Order Comment: [facility] has implemented the eGFR calculation approach that does not have a coefficient for race that conforms to the NKF-ASN Task Force Recommendations. Performed By: #### 4 4014 #### [facility] [address] [place] [address] Pratik Dukes M.D. [id number] Urea nitrogen/Creatinine [Mass ratio] 7.8 mg/mg Low 10.0-20.0 [facility] Comment on above: Order Comment: [facility] has implemented the eGFR calculation approach that does not have a coefficient for race that conforms to the NKF-ASN Task Force Recommendations. Performed By: #### 4 4014 #### [facility] [address] [place] [address] Pratik Dukes M.D. [id number] BUN/creatinine ratioOrdered By: Bairon Dee on 10-18-2024 Urea nitrogen/Creatinine [Mass ratio] 13.3 mg/mg - [facility] Basic Metabolic Profile (BMP )on 10-18-2024 BUN/CRE 13.3 RATIO Normal - [facility] Comment on above: Performed By: #### L 505.5000, L100.0100, L500.2500, L501.9100 ####[facility] [address] [place], [address] Calcium [Mass/Vol] 9.1 mg/dL Normal 7.6-11.0 [facility] Comment on above: Performed By: #### L 505.5000, L100.0100, L500.2500, L501.9100 ####[facility] [address] [place], [address] Chloride [Moles/Vol] 101 mmol/L Normal 98-108 [facility] Comment on above: Performed By: #### L 505.5000, L100.0100, L500.2500, L501.9100 ####[facility] [address] [place], [address] CO2 [Moles/Vol] 19.8 mmol/L Low 21.0-32.0 [facility] Comment on above: Performed By: #### L 505.5000, L100.0100, L500.2500, L501.9100 ####[facility] [address] [place], [address] Creatinine [Mass/Vol] 0.66 mg/dL Low 0.70-1.20 [facility] Comment on above: Performed By: #### L 505.5000, L100.0100, L500.2500, L501.9100 ####[facility] [address] [place], [address] ECRCL 179.06 ml/min Normal 50-250 [facility] Comment on above: Performed By: #### L 505.5000, L100.0100, L500.2500, L501.9100 ####[facility] [address] [place], [address] GAP 17 High 5-15 [facility] Comment on above: Performed By: #### L 505.5000, L100.0100, L500.2500, L501.9100 ####[facility] [address] [place], [address] GFR/1.73 sq M.predicted among non-blacks MDRD (S/P/Bld) [Vol rate/Area] 132 mL/min/{1.73_m2} Normal >60 [facility] Comment on above: Result Comment: mL/m in/1.73m2 CKD-EPI Creatinine Equation (2020) Performed By: #### L 505.5000, L100.0100, L500.2500, L501.9100 ####[facility] [address] [place], [address] Glucose [Mass/Vol] 70 mg/dL Normal 70-99 [facility] Comment on above: Performed By: #### L 505.5000, L100.0100, L500.2500, L501.9100 ####[facility] [address] [place], [address] Potassium [Moles/Vol] 4.7 mmol/L Normal 3.3-5.1 [facility] Comment on above: Result Comment: Hemo lysis present, Results??could be affected. ?? Performed By: #### L 505.5000, L100.0100, L500.2500, L501.9100 ####[facility] [address] [place], [address] Sodium [Moles/Vol] 138 mmol/L Normal 133-145 [facility] Comment on above: Performed By: #### L 505.5000, L100.0100, L500.2500, L501.9100 ####[facility] [address] [place], [address] Urea nitrogen [Mass/Vol] 9 mg/dL Normal 4-19 [facility] Comment on above: Performed By: #### L 505.5000, L100.0100, L500.2500, L501.9100 ####[facility] [address] [place], [address] BUN Normal 4-19 [facility] Comment on above: Result Comment: DUPL ICATE Performed By: #### L 505.5000, L500.2500, L100.0100 #### [facility] [address] [place], [address] BUN/CRE Normal 10-20 [facility] Comment on above: Result Comment: DUPL ICATE Performed By: #### L 505.5000, L500.2500, L100.0100 #### [facility] [address] [place], [address] Calcium Normal 7.6-11.0 [facility] Comment on above: Result Comment: DUPL ICATE Performed By: #### L 505.5000, L500.2500, L100.0100 #### [facility] [address] [place], [address] CL Normal 98-108 [facility] Comment on above: Result Comment: DUPL ICATE Performed By: #### L 505.5000, L500.2500, L100.0100 #### [facility] [address] [place], [address] CO2 Normal 21.0-32.0 [facility] Comment on above: Result Comment: DUPL ICATE Performed By: #### L 505.5000, L500.2500, L100.0100 #### [facility] [address] [place], [address] CREAT,SERUM Normal 0.70-1.20 [facility] Comment on above: Result Comment: DUPL ICATE Performed By: #### L 505.5000, L500.2500, L100.0100 #### [facility] [address] [place], [address] eGFR Normal >60 [facility] Comment on above: Result Comment: DUPL ICATE Performed By: #### L 505.5000, L500.2500, L100.0100 #### [facility] [address] [place], [address] GAP Normal 5-15 [facility] Comment on above: Result Comment: DUPL ICATE Performed By: #### L 505.5000, L500.2500, L100.0100 #### [facility] [address] [place], [address] GLU Normal 70-99 [facility] Comment on above: Result Comment: DUPL ICATE Performed By: #### L 505.5000, L500.2500, L100.0100 #### [facility] [address] [place], [address] Potassium Normal 3.3-5.1 [facility] Comment on above: Result Comment: DUPL ICATE Performed By: #### L 505.5000, L500.2500, L100.0100 #### [facility] [address] [place], [address] Basic Metabolic Profile (BMP) Normal 133-145 [facility] Comment on above: Result Comment: DUPL ICATE Performed By: #### L 505.5000, L500.2500, L100.0100 #### [facility] [address] [place], [address] Basophil percentageOrdered B y: Bairon Dee on 10-18-2024 Basophils/100 WBC (Bld) 1.1 % High 0-1 [facility] Bilirubin Test strip Ql (U)O rdered By: Ingrid Reece on 10-18-2024 Bilirubin Ql (U) Negative Negative [facility] Bilirubin directOrdered By: Ingrid Reece on 10-18-2024 Bilirubin.direct [Mass/Vol] 0.32 mg/dL High 0.00-0.30 [facility] CBC W/Diff, Automatedon Absolute Lymph 1.14 X10 3/uL Normal 0.83-4.51 [facility] Comment on above: Performed By: #### L 505.5000, L100.0100, L500.2500, L501.9100 ####[facility] [address] [place], [address] Absolute Neut 8.5 X10 3/uL High 2.0-7.7 [facility] Comment on above: Performed By: #### L 505.5000, L100.0100, L500.2500, L501.9100 ####[facility] [address] [place], [address] Basophils/100 WBC (Bld) 1.1 % High 0-1 [facility] Comment on above: Performed By: #### L 505.5000, L100.0100, L500.2500, L501.9100 ####[facility] [address] [place], [address] Eosinophils/100 WBC (Bld) 0.5 % Normal 0-5 [facility] Comment on above: Performed By: #### L 505.5000, L100.0100, L500.2500, L501.9100 ####[facility] [address] [place], [address] Erythrocyte distribution width (RBC) [Ratio] 12.2 % Normal 11.6-14.6 [facility] Comment on above: Performed By: #### L 505.5000, L100.0100, L500.2500, L501.9100 ####[facility] [address] [place], [address] Hematocrit (Bld) [Volume fraction] 42.0 % Normal 40-54 [facility] Comment on above: Performed By: #### L 505.5000, L100.0100, L500.2500, L501.9100 ####[facility] [address] [place], [address] Hemoglobin (Bld) [Mass/Vol] 14.8 g/dL Normal 13.0-16.5 [facility] Comment on above: Performed By: #### L 505.5000, L100.0100, L500.2500, L501.9100 ####[facility] [address] [place], [address] IG% 0.400 Normal 0.0-0.9 [facility] Comment on above: Result Comment: IG% - Immature Granulocytes (promyelocytes, myelocytes and metamyelocytes) > 1% indicates that a LEFT SHIFT is Present. Performed By: #### L 505.5000, L100.0100, L500.2500, L501.9100 ####[facility] [address] [place], [address] Lymphocytes/100 WBC (Bld) 11.1 % Low 19-41 [facility] Comment on above: Performed By: #### L 505.5000, L100.0100, L500.2500, L501.9100 ####[facility] [address] [place], [address] MCH (RBC) [Entitic mass] 34.0 pg High 27.0-32.0 [facility] Comment on above: Performed By: #### L 505.5000, L100.0100, L500.2500, L501.9100 ####[facility] [address] [place], [address] MCHC (RBC) [Mass/Vol] 35.2 g/dL Normal 32-36 [facility] Comment on above: Performed By: #### L 505.5000, L100.0100, L500.2500, L501.9100 ####[facility] [address] [place], [address] MCV (RBC) [Entitic vol] 96.6 fL High 80-94 [facility] Comment on above: Performed By: #### L 505.5000, L100.0100, L500.2500, L501.9100 ####[facility] [address] [place], [address] Monocytes/100 WBC (Bld) 5.0 % Normal 0-10 [facility] Comment on above: Performed By: #### L 505.5000, L100.0100, L500.2500, L501.9100 ####[facility] [address] [place], [address] Neutrophils/100 WBC (Bld) 81.9 % High 47-70 [facility] Comment on above: Performed By: #### L 505.5000, L100.0100, L500.2500, L501.9100 ####[facility] [address] [place], [address] Nucleated RBC (Bld) [#/Vol] 0 10*3/uL Normal 0-5 [facility] Comment on above: Performed By: #### L 505.5000, L100.0100, L500.2500, L501.9100 ####[facility] [address] [place], [address] Platelet mean volume (Bld) [Entitic vol] 8.9 fL Normal 6.2-12.0 [facility] Comment on above: Performed By: #### L 505.5000, L100.0100, L500.2500, L501.9100 ####[facility] [address] [place], [address] Platelets (Bld) [#/Vol] 536 10*3/uL High 150-450 [facility] Comment on above: Performed By: #### L 505.5000, L100.0100, L500.2500, L501.9100 ####[facility] [address] [place], [address] RBC (Bld) [#/Vol] 4.35 10*6/uL Low 4.6-6.2 [facility] Comment on above: Performed By: #### L 505.5000, L100.0100, L500.2500, L501.9100 ####[facility] [address] [place], [address] RDW SD 42.9 fl Normal 35.1-43.9 [facility] Comment on above: Performed By: #### L 505.5000, L100.0100, L500.2500, L501.9100 ####[facility] [address] [place], [address] WBC (Bld) [#/Vol] 10.3 10*3/uL Normal 4.4-11.0 [facility] Comment on above: Performed By: #### L 505.5000, L100.0100, L500.2500, L501.9100 ####[facility] [address] [place], [address] Absolute Neut Normal 2.0-7.7 [facility] Comment on above: Result Comment: ORDE RED TWICE AT THE SAME TIME SEE [id number]:[id number] Performed By: #### L 505.5000, L500.2500, L100.0100 #### [facility] [address] [place], [address] HCT Normal 40-54 [facility] Comment on above: Result Comment: ORDE RED TWICE AT THE SAME TIME SEE 0907:[id number] Performed By: #### L 505.5000, L500.2500, L100.0100 #### [facility] [address] [place], [address] HGB Normal 13.0-16.5 [facility] Comment on above: Result Comment: ORDE RED TWICE AT THE SAME TIME SEE 0907:[id number] Performed By: #### L 505.5000, L500.2500, L100.0100 #### [facility] [address] [place], [address] MCH Normal 27.0-32.0 [facility] Comment on above: Result Comment: ORDE RED TWICE AT THE SAME TIME SEE 0907:[id number] Performed By: #### L 505.5000, L500.2500, L100.0100 #### [facility] [address] [place], [address] MCHC Normal 32-36 [facility] Comment on above: Result Comment: ORDE RED TWICE AT THE SAME TIME SEE [id number]:[id number] Performed By: #### L 505.5000, L500.2500, L100.0100 #### [facility] [address] [place], [address] MCV Normal 80-94 [facility] Comment on above: Result Comment: ORDE RED TWICE AT THE SAME TIME SEE [id number]:[id number] Performed By: #### L 505.5000, L500.2500, L100.0100 #### [facility] [address] [place], [address] NEUT% Normal 47-70 [facility] Comment on above: Result Comment: ORDE RED TWICE AT THE SAME TIME SEE 0907:[id number] Performed By: #### L 505.5000, L500.2500, L100.0100 #### [facility] [address] [place], [address] PLT Normal 150-450 [facility] Comment on above: Result Comment: ORDE RED TWICE AT THE SAME TIME SEE 0907:[id number] Performed By: #### L 505.5000, L500.2500, L100.0100 #### [facility] [address] [place], [address] RBC Normal 4.6-6.2 [facility] Comment on above: Result Comment: ORDE RED TWICE AT THE SAME TIME SEE 0907:[id number] Performed By: #### L 505.5000, L500.2500, L100.0100 #### [facility] [address] [place], [address] RDW CV Normal 11.6-14.6 [facility] Comment on above: Result Comment: ORDE RED TWICE AT THE SAME TIME SEE [id number] Performed By: #### L 505.5000, L500.2500, L100.0100 #### [facility] [address] [place], [address] RDW SD Normal 35.1-43.9 [facility] Comment on above: Result Comment: ORDE RED TWICE AT THE SAME TIME SEE 0907:[id number] Performed By: #### L 505.5000, L500.2500, L100.0100 #### [facility] [address] [place], [address] WBC Normal 4.4-11.0 [facility] Comment on above: Result Comment: ORDE RED TWICE AT THE SAME TIME SEE [id number]:[id number] Performed By: #### L 505.5000, L500.2500, L100.0100 #### [facility] [address] [place], [address] CBC WITH AUTO DIFFERENTIALon 10-18-2024 AUTO NRBC 0.0 % Normal [facility] Comment on above: Performed By: #### L [id number] #### [facility] [address], [place] [address] Travis Christensen M.D. [id number] AUTO NRBC ABS COUNT 0.00 K/mcL Normal 0.00-0.00 [facility] Comment on above: Performed By: #### L [id number] #### [facility] [address] [address] Travis Christensen M.D. [id number] BASOPHILS ABSOLUTE COUNT 0.14 K/mcL Normal 0.00-0.30 [facility] Comment on above: Performed By: #### L [id number] #### [facility] [address] [place] [address] Travis Christensen M.D. [id number] Basophils/100 WBC (Bld) 1.3 % Normal [facility] Comment on above: Performed By: #### L [id number] #### [facility] [address] [place] [address] Travis Christensen M.D. [id number] Eosinophils (Bld) [#/Vol] 0.16 10*3/uL Normal 0.00-0.50 [facility] Comment on above: Performed By: #### L [id number] #### [facility] [address] [place] [address] Travis Christensen M.D. [id number] Eosinophils/100 WBC (Bld) 1.5 % Normal [facility] Comment on above: Performed By: #### L [id number] #### [facility] [address] [place] [address] Travis Christensen M.D. [id number] Erythrocyte distribution width (RBC) [Ratio] 12.3 % Normal 11.6-14.8 [facility] Comment on above: Performed By: #### L [id number] #### [facility] [address] [place] [address] Travis Christensen M.D. [id number] Hematocrit (Bld) [Volume fraction] 42.2 % Normal 41.0-53.0 [facility] Comment on above: Performed By: #### L [id number] #### [facility] [address] [place] [address] Travis Christensen M.D. [id number] Hemoglobin (Bld) [Mass/Vol] 14.0 g/dL Normal 13.5-17.5 [facility] Comment on above: Performed By: #### L [id number] #### [facility] [address] [place] [id number] Travis Christensen M.D. [id number] IG ABSOLUTE 0.06 K/mcL Normal 0.00-0.30 [facility] Comment on above: Performed By: #### L [id number] #### [facility] [address] [place] [address] Travis Christensen M.D. [id number] IG PERCENT 0.50 % Normal [facility] Comment on above: Result Comment: The IG parameter is the percentage of metamyelocytes, myelocytes and promyelocytes. An immature granulocyte count (IG) of 1% or more suggests the possibility of infection, an IG count of 3% is very likely related to an infection. Performed By: #### L [id number] #### [place] [address] [address] [place] [address] Travis Christensen M.D. [id number] Lymphocytes (Bld) [#/Vol] 2.58 10*3/uL Normal 0.90-4.00 [facility] Comment on above: Performed By: #### Silvina [id number] #### [facility] [address] [place] [address] Travis Christensen M.D. [id number] Lymphocytes/100 WBC (Bld) 23.6 % Normal [facility] Comment on above: Performed By: #### Silvina [id number] #### [place] [address] [address] [place] [address] Travis Christensen M.D. [id number] MCH (RBC) [Entitic mass] 33.3 pg Normal 26.0-34.0 [facility] Comment on above: Performed By: #### L [id number] #### [facility] [address] [place] [address] Travis Christensen M.D. [id number] MCV (RBC) [Entitic vol] 100.2 fL High 80.0-100.0 [facility] Comment on above: Performed By: #### Silvnia [id number] #### [place] [address] [address] [place] [address] Travis Christensen M.D. [id number] MEAN CORPUSCULAR HEMOGLOBIN CONC 33.2 g/dL Normal 31.0-37.0 [facility] Comment on above: Performed By: #### Silvina [id number] #### [facility] [address] [place] [address] Travis Christensen M.D. [id number] Monocytes (Bld) [#/Vol] 0.50 10*3/uL Normal 0.30-0.90 [facility] Comment on above: Performed By: #### L [id number] #### [facility] [address] [place] [address] Travis Christensen M.D. [id number] Monocytes/100 WBC (Bld) 4.6 % Normal [facility] Comment on above: Performed By: #### Silvina [id number] #### [facility] [address] [place] [address] Travis Christensen M.D. [id number] NEUTROPHILS ABSOLUTE COUNT 7.50 K/mcL High 1.70-7.00 [facility] Comment on above: Performed By: #### L [id number] #### [facility] [address] [place] [address] Travis Christensen M.D. [id number] Neutrophils/100 WBC (Bld) 68.5 % Normal [facility] Comment on above: Performed By: #### L [id number] #### [facility] [address] [place] [address] Travis Christensen M.D. [id number] Platelet mean volume (Bld) [Entitic vol] 9.0 fL Low 9.4-12.4 [facility] Comment on above: Performed By: #### L [id number] #### [facility] [address] [place] [address] Travis Christensen M.D. [id number] Platelets (Bld) [#/Vol] 550 10*3/uL High 150-400 [facility] Comment on above: Performed By: #### L [id number] #### [facility] [address] [place] [address] Travis Christensen M.D. [id number] RBC (Bld) [#/Vol] 4.21 10*6/uL Low 4.50-5.90 [facility] Comment on above: Performed By: #### L [id number] #### [facility] [address] [place], [place] [address] Travis Christensen M.D. [id number] WBC (Bld) [#/Vol] 10.94 10*3/uL Normal 4.50-11.00 [facility] Comment on above: Performed By: #### L [id number] #### [facility] [address] [place], [place] [address] Travis Christensen M.D. [id number] CONSULTon 10-18-2024 CONSULT --- Attestation signed by Marilou Vasquez MD at 10/18/2024 9:[address] scan reviewed. I agree with the resident note. PLASTIC SURGERY CONSULT NOTE Patient Name: Kade Gonzalez Admit Date: [id number] MR #: [id number] : 1995 Assessment and Plan: Kade Gonzalez is a 28 y.o. y/o male presenting as a fall and jaw pain s/p recent I&D for seroma/hematoma and MMF screw removal. - CT scan showing likely postoperative fluid - no acute surgical intervention needed - okay to DC from PRS standpoint Chief Complaint/Reason for Visit: prior mandible surgery History of Present Illness: Kade Gonzalez is a 28 y.o. y/o male presenting as a fall and jaw pain s/p recent I&D for seroma/hematoma and MMF screw removal. States he fell again on his face and had some increase pain at his jaw. CT scan showing a mild fluid collection and air, which is likely postoperative History: Past Medical History: Diagnosis Date Alcohol dependence (HCC) Anxiety Anxiety and depression Asthma Depression Migraines Substance abuse (HCC) Tobacco abuse Past Surgical History: Procedure Laterality Date ARCHBAR REMOVAL N/A 10/14/2024 Procedure: MAXILLOMANDIBULAR FIXATION SCREW REMOVAL; Surgeon: Marilou Vasquez MD; Location: [facility] Main OR; Service: Plastics; Laterality: N/A; INCISION AND DRAINAGE HEAD/NECK Left 10/14/2024 Procedure: LEFT MANDIBLE INCISION AND DRAINAGE; Surgeon: Marilou Vasquez MD; Location: [facility] Main OR; Service: Plastics; Laterality: Left; ORIF MANDIBLE MAXILLA Bilateral 10/04/2024 Procedure: OPEN REDUCTION INTERNAL FIXATION MANDIBLE MAXILLA; Surgeon: Marilou Vasquez MD; Location: [facility] Main OR; Service: Plastics; Laterality: Bilateral; History reviewed. No pertinent family history. Social History [1] Allergy Information: I have reviewed the patient's allergies. Patient has no known allergies. Home Medications: Outpatient Medications as of 10/18/2024 Medication Sig acetaminophen (TYLENOL) 325 MG tablet Take 2 (two) tablets (650 mg total) by mouth every 4 (four) hours as needed . amoxicillin-clavulanate (AUGMENTIN) 400-57 mg/5 mL suspension Take 10.9 mL (875 mg total) by mouth every 12 (twelve) hours for 6 days . Discard remainder oxyCODONE (ROXICODONE) 5 MG immediate release tablet Take 1 (one) tablet (5 mg total) by mouth every 6 (six) hours as needed for pain (Days supply per fill: 3) . acamprosate (CAMPRAL) 333 mg tablet Take 2 (two) tablets (666 mg total) by mouth 3 (three) times a day . chlorhexidine (PERIDEX) 0.12 % solution Apply 15 mL to the mouth or throat 4 (four) times a day for 14 days . Do not swallow naloxone (NARCAN) 4 mg/actuation [place] Administer 1 spray into one nostril for known or suspected opioid overdose. If patient worsens or does not respond, may repeat in 2-3 minutes. . Review of Systems: The following system(s) were reviewed and pertinent findings noted: as above Physical Examination: Vital Signs: BP (!) 112/59 Pulse 96 Temp 97.9 degrees F (36.6 degrees C) (Oral) Resp 16 SpO2 94% HEENT: Head: atraumatic, normocephalic Eyes: PERRL, EOMI no entrapment, no vertical dystopia, no ecchymoses or bony stepoffs, no enopthalmos, vision intact. Nose: Straight, nares patent, no nasal septal hematoma, no lacerations or abrasions Cheeks: Symmetric, no stepoffs or deformities Ears: No external injury, no hematoma, external canals patent, hearing intact Mouth: No intraoral lacerations, poor dentition, normal class 1 occlusion, incision CDI, mild swelling, no erythema, intraoral incisions CDI Neuro: Sensation intact in all 3 CN V nerve distributions, facial nerve intact in all distributions Neck: Supple, nontender Beverley Shepherd MD [1] Social History Socioeconomic History Marital status: [...] of Health Food Insecurity: Food Insecurity Present (10/12/2024) Hunger Vital Sign Worried About Running Out of Food in the Last Year: Often true Ran Out of Food in the Last Year: Often true Transportation Needs: Unmet Transportation Needs (10/12/2024) PRAPARE - Transportation Lack of Transportation (Medical): Yes Lack of Transportation (Non-Medical): Yes Housing Stability: High Risk (10/12/2024) Housing Stability Vital Sign Unable to Pay for Housing in the Last Year: Yes Number of Times Moved in the Last Year: 0 Homeless in the Last Year: Yes AUTHEN (more content not included)... Normal [facility] CT ANGIOGRAM CHEST ABDOMEN P HARRY WITH T/L RECONSon 10-18-2024 CT ANGIOGRAM CHEST ABDOMEN PELVIS WITH T/L RECONS EXAMINATION: CT OF THE FACE WITHOUT CONTRAST; CT ANGIOGRAM CHEST ABDOMEN PELVIS WITH THORACIC AND LUMBAR SPINE RECONSTRUCTIONS 10/18/2024 TECHNIQUE: CT of the face was performed without the administration of intravenous contrast. Multiplanar reformatted images are provided for review. Dose modulation, iterative reconstruction, and/or weight based adjustment of the mA/kV was utilized to reduce the radiation dose to as low as reasonably achievable.; CTA of the chest, abdomen, pelvis was [...] COMPARISON: None HISTORY: ORDERING SYSTEM PROVIDED HISTORY: trauma; TECHNOLOGIST PROVIDED HISTORY: Injury/Trauma Acuity: Acute Reason for Exam: Head trauma, moderate-severe Type of Encounter: Initial Mechanism of Injury: Head trauma, moderate-severe; ORDERING SYSTEM PROVIDED HISTORY: fall, trauma; TECHNOLOGIST PROVIDED HISTORY: Injury/Trauma Acuity: Acute Reason for Exam: fall, trauma Type of Encounter: Initial Mechanism of Injury: fall, trauma FINDINGS: CT facial bones: FACIAL BONES: Similar appearing mandibular fractures and alignment when compared to the previous examination. No zygomatic arch fracture. Pterygoid plates appear intact. Nondisplaced nasal bone fractures again noted, similar. Leftward nasal septal deviation with a small spur. No acute orbital wall fracture is identified. ORBITAL CONTENTS: The globes appear intact. The extraocular muscles, optic nerve sheath complexes and lacrimal glands appear unremarkable. No retrobulbar hematoma or mass is seen. SINUSES: No hemorrhage seen within the paranasal sinuses or mastoid air cells. SOFT TISSUES: The fluid collection adjacent to surgical jabier in the left submandibular region has decreased in size when compared to the previous examination. A couple small foci of air are is seen within this collection. Facial soft tissue swelling seen greatest on the left. CTA CHEST: Thoracic aorta: No thoracic aortic aneurysm. No aortic dissection. Pulmonary arteries: No central pulmonary emboli or significant enlargement. Mediastinum: No cardiomegaly. No esophageal thickening. No significant pericardial effusion. Lungs/pleura: No pulmonary consolidation, pleural effusion, pneumothorax, spiculated lung mass, pulmonary edema or significant bronchial thickening. Soft tissue/osseous structures: Respiratory motion artifact limits detection for acute chest wall fractures. No definite rib fracture is seen. No sternal or manubrial fracture is identified. CTA ABDOMEN: Vascular: Celiac artery, SMA, bilateral renal arteries and inferior mesenteric artery are all patent. No acute abnormality. Organs: No liver, spleen, adrenal, pancreatic or renal laceration or adjacent hemorrhage. GI/bowel: No traumatic bowel injury. Normal appendix. No ileus or obstruction. Peritoneum/retroperiton eum: No retroperitoneal or mesenteric lymphadenopathy. No mesenteric hematoma. No bowel herniation. CTA PELVIS: Vascular: No acute vascular abnormality in the pelvis or proximal thighs. Pelvis: No bladder wall thickening, pelvic hemorrhage or mass. Soft tissue/osseous structures: No acute pelvic fracture or proximal femoral fracture. No acute osseous abnormality is seen. THORACIC/LUMBAR SPINE: No thoracic or lumbar vertebral body compression deformity or burst injury. Posterior elements appear intact without acute fracture. No acute abnormality. IMPRESSION: 1. Similar appearing mandibular fractures and alignment when compared to the previous examination. 2. Nondisplaced nasal bone fractures again noted, similar. 3. The fluid collection adjacent to surgical jabier in the left submandibular region has decreased in size when compared to the previous examination. A couple small foci of air are seen within this collection. Sterility unable to be determined by imaging. 4. No acute traumatic injury of the chest, abdomen, or pelvis. 5. No acute osseous abnormality of the thoracic or lumbar spine. Workstation ID: [id number] Dictated by: RACHEL THOMAS on SatOct 18, 2024 5:34:32 AM EDT Transcribed by: RACHEL THOMAS on SatOct 18, 2024 5:34:32 AM EDT Finalized by: RACHEL THOMAS on [place] Oct 18, 2024 5:34:32 AM EDT [facility] Comment on above: Order Comment: Injur y/Trauma or Illness?:Injury/Trauma How long have you had these symptoms (acute/chronic)?:Acute Reason for exam?:fall, trauma Type of Exam?:Initial Mechanism of injury?:fall, trauma CT CERVICAL SPINE WITHOUT CO NTRASTon 10-18-2024 CT CERVICAL SPINE WITHOUT CONTRAST EXAMINATION: CT OF THE CERVICAL SPINE WITHOUT CONTRAST; CT OF THE HEAD WITHOUT CONTRAST 10/18/2024 TECHNIQUE: CT of the cervical spine was performed without the administration of intravenous contrast. Multiplanar reformatted images are provided for review. Dose modulation, iterative reconstruction, and/or weight based adjustment of the mA/kV was utilized to reduce the radiation dose to as low as reasonably achievable.; CT of the head was performed without the administration of intravenous contrast. Dose modulation, iterative reconstruction, and/or weight based adjustment of the mA/kV was utilized to reduce the radiation dose to as low as reasonably achievable. COMPARISON: 10/02/2024. HISTORY: ORDERING SYSTEM PROVIDED HISTORY: Neck trauma (Age >= 65y); TECHNOLOGIST PROVIDED HISTORY: Injury/Trauma Acuity: Acute Reason for Exam: Head trauma, moderate-severe Type of Encounter: Initial Mechanism of Injury: Head trauma, moderate-severe; ORDERING SYSTEM PROVIDED HISTORY: Head trauma, moderate-severe; TECHNOLOGIST PROVIDED HISTORY: Injury/Trauma Acuity: Acute Reason for Exam: Head trauma, moderate-severe Type of Encounter: Initial Mechanism of Injury: Head trauma, moderate-severe FINDINGS: BRAIN/VENTRICLES: No acute intracranial hemorrhage or extraaxial fluid collection. Ba-white differentiation is maintained. No evidence of mass, mass effect or midline shift. No evidence of hydrocephalus. ORBITS: Minimal right periorbital soft tissue swelling. Otherwise, the visualized portion of the orbits demonstrate no acute abnormality. SINUSES: The visualized paranasal sinuses and mastoid air cells demonstrate no acute abnormality. SOFT TISSUES/SKULL: No acute abnormality of the visualized skull or soft tissues. CERVICAL SPINE BONES/ALIGNMENT: No acute fracture of the cervical spine. The vertebral body heights are maintained. No evidence of spondylolisthesis. DEGENERATIVE CHANGES: No significant degenerative changes. SOFT TISSUES: There is no prevertebral soft tissue swelling. IMPRESSION: 1. No acute intracranial abnormality. 2. No acute fracture or traumatic malalignment of the cervical spine. Workstation ID: [id number] Dictated by: EMELY REVELES on SatOct 18, 2024 5:06:12 AM EDT Transcribed by: EMELY REVELES on SatOct 18, 2024 5:06:12 AM EDT Finalized by: EMELY REVELES on SatOct 18, 2024 5:06:12 AM EDT [facility] Comment on above: Order Comment: Injur y/Trauma or Illness?:Injury/TraumaHow long have you had these symptoms (acute/chronic)?:AcuteReason for exam?:Head trauma, moderate-severeType of Exam?:InitialMechanism of injury?:Head trauma, moderate-severe CT HEAD OR BRAIN WITHOUT CON TRASTon 10-18-2024 CT HEAD OR BRAIN WITHOUT CONTRAST EXAMINATION: CT OF THE CERVICAL SPINE WITHOUT CONTRAST; CT OF THE HEAD WITHOUT CONTRAST 10/18/2024 TECHNIQUE: CT of the cervical spine was performed without the administration of intravenous contrast. Multiplanar reformatted images are provided for review. Dose modulation, iterative reconstruction, and/or weight based adjustment of the mA/kV was utilized to reduce the radiation dose to as low as reasonably achievable.; CT of the head was performed without the administration of intravenous contrast. Dose modulation, iterative reconstruction, and/or weight based adjustment of the mA/kV was utilized to reduce the radiation dose to as low as reasonably achievable. COMPARISON: 10/02/2024. HISTORY: ORDERING SYSTEM PROVIDED HISTORY: Neck trauma (Age >= 65y); TECHNOLOGIST PROVIDED HISTORY: Injury/Trauma Acuity: Acute Reason for Exam: Head trauma, moderate-severe Type of Encounter: Initial Mechanism of Injury: Head trauma, moderate-severe; ORDERING SYSTEM PROVIDED HISTORY: Head trauma, moderate-severe; TECHNOLOGIST PROVIDED HISTORY: Injury/Trauma Acuity: Acute Reason for Exam: Head trauma, moderate-severe Type of Encounter: Initial Mechanism of Injury: Head trauma, moderate-severe FINDINGS: BRAIN/VENTRICLES: No acute intracranial hemorrhage or extraaxial fluid collection. Ba-white differentiation is maintained. No evidence of mass, mass effect or midline shift. No evidence of hydrocephalus. ORBITS: Minimal right periorbital soft tissue swelling. Otherwise, the visualized portion of the orbits demonstrate no acute abnormality. SINUSES: The visualized paranasal sinuses and mastoid air cells demonstrate no acute abnormality. SOFT TISSUES/SKULL: No acute abnormality of the visualized skull or soft tissues. CERVICAL SPINE BONES/ALIGNMENT: No acute fracture of the cervical spine. The vertebral body heights are maintained. No evidence of spondylolisthesis. DEGENERATIVE CHANGES: No significant degenerative changes. SOFT TISSUES: There is no prevertebral soft tissue swelling. IMPRESSION: 1. No acute intracranial abnormality. 2. No acute fracture or traumatic malalignment of the cervical spine. Workstation ID: [id number] Dictated by: EMELY REVELES on SatOct 18, 2024 5:06:12 AM EDT Transcribed by: EMELY REVELES on SatOct 18, 2024 5:06:12 AM EDT Finalized by: EMELY REVELES on SatOct 18, 2024 5:06:12 AM EDT [facility] Comment on above: Order Comment: Injur y/Trauma or Illness?:Injury/TraumaHow long have you had these symptoms (acute/chronic)?:AcuteReason for exam?:Head trauma, moderate-severeType of Exam?:InitialMechanism of injury?:Head trauma, moderate-severe CT MAXILLOFACIAL WITHOUT CON TRASTon 10-18-2024 CT MAXILLOFACIAL WITHOUT CONTRAST EXAMINATION: CT OF THE FACE WITHOUT CONTRAST; CT ANGIOGRAM CHEST ABDOMEN PELVIS WITH THORACIC AND LUMBAR SPINE RECONSTRUCTIONS 10/18/2024 TECHNIQUE: CT of the face was performed without the administration of intravenous contrast. Multiplanar reformatted images are provided for review. Dose modulation, iterative reconstruction, and/or weight based adjustment of the mA/kV was utilized to reduce the radiation dose to as low as reasonably achievable.; CTA of the chest, abdomen, pelvis was [...] COMPARISON: None HISTORY: ORDERING SYSTEM PROVIDED HISTORY: trauma; TECHNOLOGIST PROVIDED HISTORY: Injury/Trauma Acuity: Acute Reason for Exam: Head trauma, moderate-severe Type of Encounter: Initial Mechanism of Injury: Head trauma, moderate-severe; ORDERING SYSTEM PROVIDED HISTORY: fall, trauma; TECHNOLOGIST PROVIDED HISTORY: Injury/Trauma Acuity: Acute Reason for Exam: fall, trauma Type of Encounter: Initial Mechanism of Injury: fall, trauma FINDINGS: CT facial bones: FACIAL BONES: Similar appearing mandibular fractures and alignment when compared to the previous examination. No zygomatic arch fracture. Pterygoid plates appear intact. Nondisplaced nasal bone fractures again noted, similar. Leftward nasal septal deviation with a small spur. No acute orbital wall fracture is identified. ORBITAL CONTENTS: The globes appear intact. The extraocular muscles, optic nerve sheath complexes and lacrimal glands appear unremarkable. No retrobulbar hematoma or mass is seen. SINUSES: No hemorrhage seen within the paranasal sinuses or mastoid air cells. SOFT TISSUES: The fluid collection adjacent to surgical jabier in the left submandibular region has decreased in size when compared to the previous examination. A couple small foci of air are is seen within this collection. Facial soft tissue swelling seen greatest on the left. CTA CHEST: Thoracic aorta: No thoracic aortic aneurysm. No aortic dissection. Pulmonary arteries: No central pulmonary emboli or significant enlargement. Mediastinum: No cardiomegaly. No esophageal thickening. No significant pericardial effusion. Lungs/pleura: No pulmonary consolidation, pleural effusion, pneumothorax, spiculated lung mass, pulmonary edema or significant bronchial thickening. Soft tissue/osseous structures: Respiratory motion artifact limits detection for acute chest wall fractures. No definite rib fracture is seen. No sternal or manubrial fracture is identified. CTA ABDOMEN: Vascular: Celiac artery, SMA, bilateral renal arteries and inferior mesenteric artery are all patent. No acute abnormality. Organs: No liver, spleen, adrenal, pancreatic or renal laceration or adjacent hemorrhage. GI/bowel: No traumatic bowel injury. Normal appendix. No ileus or obstruction. Peritoneum/retroperiton eum: No retroperitoneal or mesenteric lymphadenopathy. No mesenteric hematoma. No bowel herniation. CTA PELVIS: Vascular: No acute vascular abnormality in the pelvis or proximal thighs. Pelvis: No bladder wall thickening, pelvic hemorrhage or mass. Soft tissue/osseous structures: No acute pelvic fracture or proximal femoral fracture. No acute osseous abnormality is seen. THORACIC/LUMBAR SPINE: No thoracic or lumbar vertebral body compression deformity or burst injury. Posterior elements appear intact without acute fracture. No acute abnormality. IMPRESSION: 1. Similar appearing mandibular fractures and alignment when compared to the previous examination. 2. Nondisplaced nasal bone fractures again noted, similar. 3. The fluid collection adjacent to surgical jabier in the left submandibular region has decreased in size when compared to the previous examination. A couple small foci of air are seen within this collection. Sterility unable to be determined by imaging. 4. No acute traumatic injury of the chest, abdomen, or pelvis. 5. No acute osseous abnormality of the thoracic or lumbar spine. Workstation ID: [id number] Dictated by: RACHEL THOMAS on SatOct 18, 2024 5:34:32 AM EDT Transcribed by: RACHEL THOMAS on SatOct 18, 2024 5:34:32 AM EDT Finalized by: RACHEL THOMAS on SatOct 18, 2024 5:34:32 AM EDT [facility] Comment on above: Order Comment: Injur y/Trauma or Illness?:Injury/TraumaHow long have you had these symptoms (acute/chronic)?:AcuteReason for exam?:Head trauma, moderate-severeType of Exam?:InitialMechanism of injury?:Head trauma, moderate-severe Carbon dioxide, total [Moles /volume] in Central venous bloodOrdered By: Bairon Dee on 10-18-2024 CO2 [Moles/Vol] 19.8 mmol/L Low 21.0-32.0 [facility] Chloride assayOrdered By: Swapna Dee on 10-18-2024 Chloride [Moles/Vol] 101 mmol/L 98-108 [facility] DRUGS OF ABUSE SCREEN, URINE on 10-18-2024 AMPHETAMINE SCREEN, URINE Positive Abnormal None Detected [facility] [facility] Comment on above: Order Comment: Scree n results should be used for treatment purposes only.Specimen will be kept for 2 weeks, if the sample is adequate. Confirmation testing can be initiated by calling the lab within 2 weeks. Result Comment: Urin e Amphetamine Cutoff: < 1000 ng/mL = None Detected Performed By: #### [id number] #### [facility] [address] [address] Travis Christensen M.D. [id number] BARBITURATE SCREEN URINE Positive Abnormal None Detected [facility] Comment on above: Order Comment: Scree n results should be used for treatment purposes only.Specimen will be kept for 2 weeks, if the sample is adequate. Confirmation testing can be initiated by calling the lab within 2 weeks. Result Comment: Urin e Barbiturates Cutoff: < 200 ng/mL = None Detected Performed By: #### [id number] #### [facility] [address] [address] Travis Christensen M.D. [id number] BENZODIAZEPINE SCREEN, URINE Not detected Normal None Detected [facility] Comment on above: Order Comment: Scree n results should be used for treatment purposes only.Specimen will be kept for 2 weeks, if the sample is adequate. Confirmation testing can be initiated by calling the lab within 2 weeks. Result Comment: Urin e Benzodiazepine Cutoff: < 200 ng/mL = None Detected Performed By: #### [id number] #### [facility] [address] [address] Travis Christensen M.D. [id number] BUPRENORPHINE, URINE Not detected Normal None Detected [facility] Comment on above: Order Comment: Scree n results should be used for treatment purposes only.Specimen will be kept for 2 weeks, if the sample is adequate. Confirmation testing can be initiated by calling the lab within 2 weeks. Result Comment: Urin e Buprenorphine Cutoff: < 5 ng/mL = None Detected Performed By: #### [id number] #### [facility] [address] [address] Travis Christensen M.D. [id number] CANNABINOID SCREEN URINE Not detected Normal None Detected [facility] Comment on above: Order Comment: Scree n results should be used for treatment purposes only.Specimen will be kept for 2 weeks, if the sample is adequate. Confirmation testing can be initiated by calling the lab within 2 weeks. Result Comment: Urin e Cannabinoids Cutoff: < 50 ng/mL = None Detected Performed By: #### [id number] #### [facility] [address] [address] Travis Christensen M.D. [id number] COCAINE, SCREEN URINE Not detected Normal None Detected [facility] Comment on above: Order Comment: Scree n results should be used for treatment purposes only.Specimen will be kept for 2 weeks, if the sample is adequate. Confirmation testing can be initiated by calling the lab within 2 weeks. Result Comment: Urin e Cocaine Cutoff: < 300 ng/mL = None Detected Performed By: #### [id number] #### [facility] [address] [address] Travis Christensen M.D. [id number] FENTANYL, URINE Not detected Normal None Detected [facility] Comment on above: Order Comment: Scree n results should be used for treatment purposes only.Specimen will be kept for 2 weeks, if the sample is adequate. Confirmation testing can be initiated by calling the lab within 2 weeks. Result Comment: Urin e Fentanyl Cutoff: < 1 ng/mL = None Detected Performed By: #### [id number] #### [facility] [address] [address] Travis Christensen M.D. [id number] METHADONE SCREEN, URINE Not detected Normal None Detected [facility] Comment on above: Order Comment: Scree n results should be used for treatment purposes only.Specimen will be kept for 2 weeks, if the sample is adequate. Confirmation testing can be initiated by calling the lab within 2 weeks. Result Comment: Urin e Methadone Cutoff: < 300 ng/mL = None Detected Performed By: #### [id number] #### [facility] [address], [place] [address] Travis Christensen M.D. [id number] OPIATE SCREEN URINE Not detected Normal None Detected [facility] Comment on above: Order Comment: Scree n results should be used for treatment purposes only.Specimen will be kept for 2 weeks, if the sample is adequate. Confirmation testing can be initiated by calling the lab within 2 weeks. Result Comment: Urin e Opiates Cutoff: < 300 ng/mL = None Detected Performed By: #### [id number] #### [facility] [address], [place] [address] Travis Christensen M.D. [id number] OXYCODONE SCREEN, URINE Not detected Normal None Detected [facility] Comment on above: Order Comment: Scree n results should be used for treatment purposes only.Specimen will be kept for 2 weeks, if the sample is adequate. Confirmation testing can be initiated by calling the lab within 2 weeks. Result Comment: Urin e Oxycodone Cutoff: < 100 ng/mL = None Detected Performed By: #### [id number] #### [facility] [address], [place] [address] Travis Christensen M.D. [id number] ED Prov Noteon 10-18-2024 ED Prov Note ED PROVIDER NOTE [facility] EMERGENCY DEPARTMENT NAME: Kade Gonzalez AGE: 28 y.o. : 1995 VISIT DATE: 10/18/2024 CSN: [id number] PCP: No, Physician Chief Complaint Patient presents with Facial Injury HPI/MDM: Kade Gonzalez is a 28 y.o. male who has a past medical history of Alcohol dependence (HCC), Anxiety, Anxiety and depression, Asthma, Depression, Migraines, Substance abuse (HCC), and Tobacco abuse., coming in for Facial Injury. [facility] Medical Decision Making ED Course as of 10/18/24 0740 Sun Oct 18, 2024 0243 This a 28-year-old male, with a history of jaw fracture who comes in with a chief complaint of injury today, the patient gives multiple stories for why he got injured, the patient has abrasions to the head, elbows, bilateral knees. The patient recently was in the hospital for jaw fracture. The patient is unable to meet additional details about how or why he got injured tonight. Differential diagnosis includes fracture, sprain, intracranial hemorrhage. [RJ] 0316 Alcohol(!): 315.0 [RJ] 0718 3 sutures placed r eyebrow. The patient CT scan here does show improved fluid collection, there is a small foci of gas, at this time point, no leukocytosis, plastic surgery is consulted for evaluation, at this time, I do not feel that there is gas-forming organism, and likely this is most likely postoperative. Dispo pending plastic surgery evaluation. [RJ] ED Course User Index [RJ] Anaid Aguirre MD [facility] Data History: Past Medical History: Diagnosis Date Alcohol dependence (HCC) Anxiety Anxiety and depression Asthma Depression Migraines Substance abuse (HCC) Tobacco abuse Past Surgical History: Procedure Laterality Date ARCHBAR REMOVAL N/A 10/14/2024 Procedure: MAXILLOMANDIBULAR FIXATION SCREW REMOVAL; Surgeon: Marilou Vasquez MD; Location: [facility] Main OR; Service: Plastics; Laterality: N/A; INCISION AND DRAINAGE HEAD/NECK Left 10/14/2024 Procedure: LEFT MANDIBLE INCISION AND DRAINAGE; Surgeon: Marilou Vasquez MD; Location: [facility] Main OR; Service: Plastics; Laterality: Left; ORIF MANDIBLE MAXILLA Bilateral 10/04/2024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 CONSULT --- Attestation signed by Marilou Vasquez MD at 10/05/2024 9:00 AM Discussed with team and agree. Patient was evaluated by me today and overall appears to be doing excellent. He has expected swelling. I am okay with discharge home if his pain is controlled. PLASTIC SURGERY CONSULT NOTE Patient Name: Kade Gonzalez Admit Date: [id number] MR #: [id number] : 1995 Assessment and Plan: 28 y.o. [...] Past Medical History: Diagnosis Date Alcohol dependence ([facility]) Anxiety Anxiety and depression Asthma Depression Migraines Substance abuse ([facility]) Tobacco abuse History reviewed. No pertinent [...] BY MARILOU VASQUEZ, ON 10/05/2024 09:00:17 Normal [facility] DRUGS OF ABUSE SCREEN, URINE on 10-05-2024 AMPHETAMINE SCREEN, URINE Not detected Normal None Detected [facility] Comment on above: Order Comment: Scree n results should be used for treatment purposes only.Specimen will be kept for 2 weeks, if the sample is adequate. Confirmation testing can be initiated by calling the lab within 2 weeks. Result Comment: Urin e Amphetamine Cutoff: < 1000 ng/mL = None Detected Performed By: #### 4 [id number] #### [facility] [address] [id number] Travis Christensen M.D. [id number] BARBITURATE SCREEN URINE Positive Abnormal None Detected [facility] Comment on above: Order Comment: Scree n results should be used for treatment purposes only.Specimen will be kept for 2 weeks, if the sample is adequate. Confirmation testing can be initiated by calling the lab within 2 weeks. Result Comment: Urin e Barbiturates Cutoff: < 200 ng/mL = None Detected Performed By: #### 4 [id number] #### [facility] [address] [id number] Travis Christensen M.D. [id number] BENZODIAZEPINE SCREEN, URINE Positive Abnormal None Detected [facility] Comment on above: Order Comment: Scree n results should be used for treatment purposes only.Specimen will be kept for 2 weeks, if the sample is adequate. Confirmation testing can be initiated by calling the lab within 2 weeks. Result Comment: Urin e Benzodiazepine Cutoff: < 200 ng/mL = None Detected Performed By: #### 4 [id number] #### [facility] [address] [address] Travis Christensen M.D. [id number] BUPRENORPHINE, URINE Not detected Normal None Detected [facility] Comment on above: Order Comment: Scree n results should be used for treatment purposes only.Specimen will be kept for 2 weeks, if the sample is adequate. Confirmation testing can be initiated by calling the lab within 2 weeks. Result Comment: Urin e Buprenorphine Cutoff: < 5 ng/mL = None Detected Performed By: #### 4 [id number] #### [facility] [address] [address] Travis Christensen M.D. [id number] CANNABINOID SCREEN URINE Not detected Normal None Detected [facility] Comment on above: Order Comment: Scree n results should be used for treatment purposes only.Specimen will be kept for 2 weeks, if the sample is adequate. Confirmation testing can be initiated by calling the lab within 2 weeks. Result Comment: Urin e Cannabinoids Cutoff: < 50 ng/mL = None Detected Performed By: #### 4 [id number] #### [facility] [address] [address] Travis Christensen M.D. [id number] COCAINE, SCREEN URINE Not detected Normal None Detected [facility] Comment on above: Order Comment: Scree n results should be used for treatment purposes only.Specimen will be kept for 2 weeks, if the sample is adequate. Confirmation testing can be initiated by calling the lab within 2 weeks. Result Comment: Urin e Cocaine Cutoff: < 300 ng/mL = None Detected Performed By: #### 4 [id number] #### [facility] [address] [address] Travis Christensen M.D. [id number] FENTANYL, URINE Not detected Normal None Detected [facility] Comment on above: Order Comment: Scree n results should be used for treatment purposes only.Specimen will be kept for 2 weeks, if the sample is adequate. Confirmation testing can be initiated by calling the lab within 2 weeks. Result Comment: Urin e Fentanyl Cutoff: < 1 ng/mL = None Detected Performed By: #### 4 [id number] #### [facility] [address] [address] Travis Christensen M.D. [id number] METHADONE SCREEN, URINE Not detected Normal None Detected [facility] Comment on above: Order Comment: Scree n results should be used for treatment purposes only.Specimen will be kept for 2 weeks, if the sample is adequate. Confirmation testing can be initiated by calling the lab within 2 weeks. Result Comment: Urin e Methadone Cutoff: < 300 ng/mL = None Detected Performed By: #### 4 [id number] #### [facility] [address] [address] Travis Christensen M.D. [id number] OPIATE SCREEN URINE Not detected Normal None Detected [facility] Comment on above: Order Comment: Scree n results should be used for treatment purposes only.Specimen will be kept for 2 weeks, if the sample is adequate. Confirmation testing can be initiated by calling the lab within 2 weeks. Result Comment: Urin e Opiates Cutoff: < 300 ng/mL = None Detected Performed By: #### 4 [id number] #### [facility] [address] [address] Travis Christensen M.D. [id number] OXYCODONE SCREEN, URINE Positive Abnormal None Detected [facility] Comment on above: Order Comment: Scree n results should be used for treatment purposes only.Specimen will be kept for 2 weeks, if the sample is adequate. Confirmation testing can be initiated by calling the lab within 2 weeks. Result Comment: Urin e Oxycodone Cutoff: < 100 ng/mL = None Detected Performed By: #### 4 [id number] #### [facility] [address] [id number] Travis Christensen M.D. [id number] Drugs of Abuse Screen, Urine Ordered By: Karan Ding on 10-05-2024 Amphetamines Ql (U) Not detected None Detected [facility] Comment on above: Urine Amphetamine Cu toff: < 1000 ng/mL = None Detected Barbiturates Screen Ql (U) Positive Abnormal None Detected [facility] Comment on above: Urine Barbiturates C utoff: < 200 ng/mL = None Detected Benzodiazepines Ql (U) Positive Abnormal None Detected [facility] Comment on above: Urine Benzodiazepine Cutoff: < 200 ng/mL = None Detected Buprenorphine Ql (U) Not detected None Detected [facility] Comment on above: Urine Buprenorphine Cutoff: < 5 ng/mL = None Detected Cannabinoids Screen Ql (U) Not detected None Detected [facility] Comment on above: Urine Cannabinoids C utoff: < 50 ng/mL = None Detected Cocaine Ql (U) Not detected None Detected [facility] Comment on above: Urine Cocaine Cutoff : < 300 ng/mL = None Detected fentaNYL+Norfentanyl Screen Ql (U) Not detected None Detected [facility] Comment on above: Urine Fentanyl Cutof f: < 1 ng/mL = None Detected Interpretation and review of laboratory results Abnormal [facility] Methadone Screen Ql (U) Not detected None Detected [facility] Comment on above: Urine Methadone Cuto ff: < 300 ng/mL = None Detected Opiates Screen Ql (U) Not detected None Detected [facility] Comment on above: Urine Opiates Cutoff : < 300 ng/mL = None Detected oxyCODONE Ql (U) Positive Abnormal None Detected [facility] Comment on above: Urine Oxycodone Cuto ff: < 100 ng/mL = None Detected Screen results shoul d be used for treatment purposes only. Specimen will be kept for 2 weeks, if the sample is adequate. Confirmation testing can be initiated by calling the lab within 2 weeks. [facility] ALCOHOL MEDICAL 34.0 mg/dL High <10.0 [facility] Comment on above: Performed By: #### 4 [id number] #### [facility] [address], [place] [address] Travis Christensen M.D. [id number] ALCOHOL MEDICAL 56.0 mg/dL High <10.0 [facility] Comment on above: Performed By: #### 4 5033 ####[facility] [address], [place] [address] Travis Christensen M.D. [id number] Alcohol, [facility] 5 Ethanol [Mass/Vol] 34 mg/dL High NINF - 10 .0 mg/dL [facility] Ethanol [Mass/Vol] 56 mg/dL High NINF - 10 .0 mg/dL [facility] CBCon 10-04-2024 AUTO NRBC 0.0 % Normal [facility] Comment on above: Performed By: #### 4 [id number] ####[facility] [address] [address] Travis Christensen M.D. [id number] AUTO NRBC ABS COUNT 0.00 K/mcL Normal 0.00-0.00 [facility] Comment on above: Performed By: #### 4 [id number] ####[facility] [address] [address] Travis Christensen M.D. [id number] Erythrocyte distribution width (RBC) [Ratio] 11.6 % Normal 11.6-14.8 [facility] Comment on above: Performed By: #### 4 [id number] ####[facility] [address] [address] Travis Christensen M.D. [id number] Hematocrit (Bld) [Volume fraction] 33.0 % Low 41.0-53.0 [facility] Comment on above: Performed By: #### 4 [id number] ####[facility] [address] [address] Travis Christensen M.D. [id number] Hemoglobin (Bld) [Mass/Vol] 11.5 g/dL Low 13.5-17.5 [facility] Comment on above: Performed By: #### 4 [id number] ####[facility] [address] [address] Travis Christensen M.D. [id number] MCH (RBC) [Entitic mass] 33.5 pg Normal 26.0-34.0 [facility] Comment on above: Performed By: #### 4 [id number] ####[facility] [address] [address] Travis Christensen M.D. [id number] MCV (RBC) [Entitic vol] 96.2 fL Normal 80.0-100.0 [facility] Comment on above: Performed By: #### 4 [id number] ####[facility] [address] [address] Travis Christensen M.D. [id number] MEAN CORPUSCULAR HEMOGLOBIN CONC 34.8 g/dL Normal 31.0-37.0 [facility] Comment on above: Performed By: #### 4 [id number] ####[facility] [address], [place] [address] Travis Christensen M.D. [id number] Platelet mean volume (Bld) [Entitic vol] 9.7 fL Normal 9.4-12.4 [facility] Comment on above: Performed By: #### 4 [id number] ####[facility] [address], [place] [address] Travis Christensen M.D. [id number] Platelets (Bld) [#/Vol] 248 10*3/uL Normal 150-400 [facility] Comment on above: Performed By: #### 4 [id number] ####[facility] [address], [place] [address] Travis Christensen M.D. [id number] RBC (Bld) [#/Vol] 3.43 10*6/uL Low 4.50-5.90 [facility] Comment on above: Performed By: #### 4 [id number] ####[facility] [address], [place] [address] Travis Christensen M.D. [id number] WBC (Bld) [#/Vol] 13.97 10*3/uL High 4.50-11.00 [facility] Comment on above: Performed By: #### 4 [id number] ####[facility] [address], [place] [address] Travis Christensen M.D. [id number] CBC panel Auto (Bld)on 10-04 Erythrocyte distribution width (RBC) [Entitic vol] 11.6 % 11.6 - 14.8 % [facility] Hematocrit (Bld) [Volume fraction] 33 % Low 41.0 - 53.0 % [facility] Hemoglobin (Bld) [Mass/Vol] 11.5 g/dL Low 13.5 - 17.5 g/dL [facility] Interpretation and review of laboratory results Abnormal [facility] MCH (RBC) [Entitic mass] 33.5 pg 26.0 - 34.0 pg [facility] MCHC (RBC) [Mass/Vol] 34.8 g/dL 31.0 - 37.0 g/dL [facility] MCV (RBC) [Entitic vol] 96.2 fL 80.0 - 100.0 fL [facility] Nucleated RBC (Bld) [#/Vol] 0 10*3/uL [facility] Nucleated RBC/100 WBC (Bld) [Ratio] 0 % [facility] Platelet mean volume (Bld) [Entitic vol] 9.7 fL 9.4 - 12.4 fL [facility] Platelets (Bld) [#/Vol] 248 10*3/uL [facility] RBC (Bld) [#/Vol] 3.43 10*6/uL Low [facility] [place] WBC (Bld) [#/Vol] 13.97 10*3/uL High [facility] ED Prov Noteon 10-04-2024 ED Prov Note ED PROVIDER NOTE [facility] EMERGENCY DEPARTMENT NAME: Kade Gonzalez AGE: 28 y.o. : 1995 VISIT DATE: 10/04/2024 CSN: [id number] PCP: No, Physician Chief Complaint Patient presents [...] Past Medical History: Diagnosis Date Alcohol dependence ([facility]) Anxiety Anxiety and depression Asthma Depression Migraines Substance abuse ([facility]) Tobacco abuse History reviewed. No pertinent [...] drink yest (more content not included)... Normal [facility] Ethanol [Mass/Vol]on 025 Interpretation and review of laboratory results Abnormal [facility] Interpretation and review of laboratory results Abnormal [facility] H AND Frank 10-04-2024 H [...] of this case with the Resident/Nurse Practitioner/Physician Make Up Worker and independently confirmed the findings and plan of care as documented either attached or in their separate note from this admission. I agree with the Resident/Nurse Practitioner//Physician Make Up Worker note and have added any necessary corrections [...] Acute Care & Critical Care Surgery ==== DAVID TRAUMA SURGERY TRAUMA EVALUATION / HISTORY [...] is cl (more content not included)... Normal [facility] OP NOTEon 10-04-2024 OP NOTE Kade Gonzalez [id number] 1995 Attending: Marilou Vasquez MD Make Up Worker: Mode Garcia DO Pre Procedure Diagnosis: Open mandible fracture Post Procedure Diagnosis: Open mandible fracture Procedure or Procedures Performed: 1) open treatment using multiple approaches of mandible fracture including plating and intermaxillary fixation with debridement of fracture site (03540 x 1, 94819) 2) extraction of left molar (38302) Indication for Procedure: This patient has an [...] operative complication were discussed with the consenting republican before surgery. Anesthesia: General Complications: None Specimens: [...] BY MARILOU VASQUEZ, ON 10/05/2024 07:24:28 Normal [facility] BASIC METABOLIC PANELon 08-2 Anion gap [Moles/Vol] 16 mmol/L Normal 10-20 [facility] Comment on above: Order Comment: [facility] has implemented the eGFR calculation approach that does not have a coefficient for race that conforms to the NKF-ASN Task Force Recommendations. Performed By: #### 4 [id number] ####[facility] [address], [place] [address] Travis Christensen M.D. [id number] Calcium [Mass/Vol] 9.1 mg/dL Normal 8.4-10.2 [facility] Comment on above: Order Comment: [facility] has implemented the eGFR calculation approach that does not have a coefficient for race that conforms to the NKF-ASN Task Force Recommendations. Performed By: #### 4 6124 ####[facility] [address], [place] [address] Travis Christensen M.D. [id number] Chloride [Moles/Vol] 99 mmol/L Normal 98-108 [facility] Comment on above: Order Comment: [facility] has implemented the eGFR calculation approach that does not have a coefficient for race that conforms to the NKF-ASN Task Force Recommendations. Performed By: #### 4 6124 ####[facility] [address], [place] [address] Travis Christensen M.D. [id number] Creatinine [Mass/Vol] 0.86 mg/dL Normal 0.50-1.30 [facility] Comment on above: Order Comment: [facility] has implemented the eGFR calculation approach that does not have a coefficient for race that conforms to the NKF-ASN Task Force Recommendations. Performed By: #### 4 6124 ####[facility] [address], [place] [address] Travis Christensen M.D. [id number] EGFR 122 mL/min/1.73 m2 Normal >=60 [facility] Comment on above: Order Comment: [facility] has implemented the eGFR calculation approach that does not have a coefficient for race that conforms to the NKF-ASN Task Force Recommendations. Result Comment: Luzma mated GFR was calculated using the 2020 CKD-EPI creatinine equation. Performed By: #### 4 6124 ####[facility] [address] [id number] Travis Christensen M.D. [id number] Glucose [Mass/Vol] 80 mg/dL Normal 65-99 [facility] Comment on above: Order Comment: [facility] has implemented the eGFR calculation approach that does not have a coefficient for race that conforms to the NKF-ASN Task Force Recommendations. Performed By: #### 4 6124 ####[facility] [address] [address] Travis Christensen M.D. [id number] HCO3 (Bld) [Moles/Vol] 24 mmol/L Normal 21-32 [facility] Comment on above: Order Comment: [facility] has implemented the eGFR calculation approach that does not have a coefficient for race that conforms to the NKF-ASN Task Force Recommendations. Performed By: #### 4 6124 ####[facility] [address] [id number] Travis Christensen M.D. [id number] Potassium [Moles/Vol] 3.8 mmol/L Normal 3.5-5.1 [facility] Comment on above: Order Comment: [facility] has implemented the eGFR calculation approach that does not have a coefficient for race that conforms to the NKF-ASN Task Force Recommendations. Performed By: #### 4 6124 ####[facility] [address] [address] Travis Christensen M.D. [id number] Sodium [Moles/Vol] 135 mmol/L Normal 135-145 [facility] Comment on above: Order Comment: [facility] has implemented the eGFR calculation approach that does not have a coefficient for race that conforms to the NKF-ASN Task Force Recommendations. Performed By: #### 4 6124 ####[facility] [address] [id number] Travis Christensen M.D. [id number] Urea nitrogen [Mass/Vol] 7 mg/dL Low 8-25 [facility] Comment on above: Order Comment: [facility] has implemented the eGFR calculation approach that does not have a coefficient for race that conforms to the NKF-ASN Task Force Recommendations. Performed By: #### 4 6124 ####[facility] [address], [place] [address] Travis Christensen M.D. [id number] Urea nitrogen/Creatinine [Mass ratio] 8.1 mg/mg Low 10.0-20.0 [facility] Comment on above: Order Comment: [facility] has implemented the eGFR calculation approach that does not have a coefficient for race that conforms to the NKF-ASN Task Force Recommendations. Performed By: #### 4 6124 ####[facility] [address], [place] [address] Travis Christensen M.D. [id number] Basic metabolic 2000 panelOr dered By: Chava Siu on 10-03-2024 Anion gap [Moles/Vol] 16 mmol/L 10 - 2 0 mmol/L [facility] Calcium [Mass/Vol] 9.1 mg/dL 8.4 - 10. 2 mg/dL [facility] Chloride [Moles/Vol] 99 mmol/L 98 - 10 8 mmol/L [facility] Creatinine [Mass/Vol] 0.86 mg/dL 0.50 - 1.30 mg/dL [facility] GFR/1.73 sq M.predicted CKD-EPI (S/P/Bld) [Vol rate/Area] 122 - PINF [facility] Comment on above: Estimated GFR was ca lculated using the 2020 CKD-EPI creatinine equation. Glucose [Mass/Vol] 80 mg/dL 65 - 99 mg/dL [facility] HCO3 [Moles/Vol] 24 mmol/L 21 - 32 mmol/L [facility] Interpretation and review of laboratory results Abnormal [facility] Potassium [Moles/Vol] 3.8 mmol/L 3.5 - 5.1 mmol/L [facility] Sodium [Moles/Vol] 135 mmol/L 135 - 145 mmol/L [facility] Urea nitrogen [Mass/Vol] 7 mg/dL Low 8 - 25 mg/dL [facility] Urea nitrogen/Creatinine [Mass ratio] 8.1 mg/mg Low 10.0 - 20.0 [facility] has implemented the eGFR calculation approach that does not have a coefficient for race that conforms to the NKF-ASN Task Force Recommendations. [facility] CBCon 10-03-2024 AUTO NRBC 0.0 % Normal [facility] Comment on above: Performed By: #### 4 4014 #### [facility] [address] [place], [place] [address] Pratik Dukes M.D. [id number] AUTO NRBC ABS COUNT 0.00 K/mcL Normal 0.00-0.00 [facility] Comment on above: Performed By: #### 4 4014 #### [facility] [address] [place] [address] Pratik Dukes M.D. [id number] Erythrocyte distribution width (RBC) [Ratio] 12.1 % Normal 11.6-14.8 [facility] Comment on above: Performed By: #### 4 4014 #### [facility] [address] [place] [address] Pratik Dukes M.D. [id number] Hematocrit (Bld) [Volume fraction] 41.7 % Normal 41.0-53.0 [facility] Comment on above: Performed By: #### 4 4014 #### [facility] [address] [place] [address] Pratik Dukes M.D. [id number] Hemoglobin (Bld) [Mass/Vol] 14.1 g/dL Normal 13.5-17.5 [facility] Comment on above: Performed By: #### 4 4014 #### [facility] [address] [place], [place] [address] Pratik Dukes M.D. [id number] MCH (RBC) [Entitic mass] 33.2 pg Normal 26.0-34.0 [facility] Comment on above: Performed By: #### 4 4014 #### [facility] [address] [place], [place] [address] rPatik Dukes M.D. [id number] MCV (RBC) [Entitic vol] 98.1 fL Normal 80.0-100.0 [facility] Comment on above: Performed By: #### 4 4014 #### [facility] [address] [place] [address] Pratik Dukes M.D. [id number] MEAN CORPUSCULAR HEMOGLOBIN CONC 33.8 g/dL Normal 31.0-37.0 [facility] Comment on above: Performed By: #### 4 4014 #### [facility] [address] [place], [place] [address] Pratik Dukes M.D. [id number] Platelet mean volume (Bld) [Entitic vol] 10.3 fL Normal 9.4-12.4 [facility] Comment on above: Performed By: #### 4 4014 #### [facility] [address] [place], [place] [address] Pratik Dukes M.D. [id number] Platelets (Bld) [#/Vol] 221 10*3/uL Normal 150-400 [facility] Comment on above: Performed By: #### 4 [id number] #### [facility] [address] [place], [place] [id number] Pratik Dukes M.D. [id number] RBC (Bld) [#/Vol] 4.25 10*6/uL Low 4.50-5.90 [facility] Comment on above: Performed By: #### 4 4014 #### [facility] [address] [place], [place] [id number] Pratik Dukes M.D. [id number] WBC (Bld) [#/Vol] 10.68 10*3/uL Normal 4.50-11.00 [facility] Comment on above: Performed By: #### 4 4014 #### [facility] [address] [place] [address] Pratik Dukes M.D. [id number] CBC panel Auto (Bld)on 10-03 Erythrocyte distribution width (RBC) [Entitic vol] 12.1 % 11.6 - 14.8 % [facility] Hematocrit (Bld) [Volume fraction] 41.7 % 41.0 - 53.0 % [facility] Hemoglobin (Bld) [Mass/Vol] 14.1 g/dL 13.5 - 17.5 g/dL [facility] Interpretation and review of laboratory results Abnormal [facility] MCH (RBC) [Entitic mass] 33.2 pg 26.0 - 34.0 pg [facility] MCHC (RBC) [Mass/Vol] 33.8 g/dL 31.0 - 37.0 g/dL [facility] MCV (RBC) [Entitic vol] 98.1 fL 80.0 - 100.0 fL [facility] Nucleated RBC (Bld) [#/Vol] 0 10*3/uL [facility] Nucleated RBC/100 WBC (Bld) [Ratio] 0 % [facility] Platelet mean volume (Bld) [Entitic vol] 10.3 fL 9.4 - 12.4 fL [facility] Platelets (Bld) [#/Vol] 221 10*3/uL [facility] RBC (Bld) [#/Vol] 4.25 10*6/uL Low [facility] ealt WBC (Bld) [#/Vol] 10.68 10*3/uL [facility] DRUGS OF ABUSE SCREEN, URINE on 10-03-2024 AMPHETAMINE SCREEN, URINE Not detected Normal None Detected [facility] Comment on above: Order Comment: Scree n results should be used for treatment purposes only.Specimen will be kept for 2 weeks, if the sample is adequate. Confirmation testing can be initiated by calling the lab within 2 weeks. Result Comment: Urin e Amphetamine Cutoff: < 1000 ng/mL = None Detected Performed By: #### L [id number] #### [facility] [address], [place] [address] Travis Christensen M.D. [id number] BARBITURATE SCREEN URINE Positive Abnormal None Detected [facility] Comment on above: Order Comment: Scree n results should be used for treatment purposes only.Specimen will be kept for 2 weeks, if the sample is adequate. Confirmation testing can be initiated by calling the lab within 2 weeks. Result Comment: Urin e Barbiturates Cutoff: < 200 ng/mL = None Detected Performed By: #### L [id number] #### [facility] [address] [address] Travis Christensen M.D. [id number] BENZODIAZEPINE SCREEN, URINE Positive Abnormal None Detected [facility] Comment on above: Order Comment: Scree n results should be used for treatment purposes only.Specimen will be kept for 2 weeks, if the sample is adequate. Confirmation testing can be initiated by calling the lab within 2 weeks. Result Comment: Urin e Benzodiazepine Cutoff: < 200 ng/mL = None Detected Performed By: #### L [id number] #### [facility] [address] [address] Travis Christensen M.D. [id number] BUPRENORPHINE, URINE Not detected Normal None Detected [facility] Comment on above: Order Comment: Scree n results should be used for treatment purposes only.Specimen will be kept for 2 weeks, if the sample is adequate. Confirmation testing can be initiated by calling the lab within 2 weeks. Result Comment: Urin e Buprenorphine Cutoff: < 5 ng/mL = None Detected Performed By: #### L [id number] #### [facility] [address] [address] Travis Christensen M.D. [id number] CANNABINOID SCREEN URINE Not detected Normal None Detected [facility] Comment on above: Order Comment: Scree n results should be used for treatment purposes only.Specimen will be kept for 2 weeks, if the sample is adequate. Confirmation testing can be initiated by calling the lab within 2 weeks. Result Comment: Urin e Cannabinoids Cutoff: < 50 ng/mL = None Detected Performed By: #### L [id number] #### [facility] [address] [address] Travis Christensen M.D. [id number] COCAINE, SCREEN URINE Not detected Normal None Detected [facility] Comment on above: Order Comment: Scree n results should be used for treatment purposes only.Specimen will be kept for 2 weeks, if the sample is adequate. Confirmation testing can be initiated by calling the lab within 2 weeks. Result Comment: Urin e Cocaine Cutoff: < 300 ng/mL = None Detected Performed By: #### L [id number] #### [facility] [address] [address] Travis Christensen M.D. [id number] FENTANYL, URINE Not detected Normal None Detected [facility] Comment on above: Order Comment: Scree n results should be used for treatment purposes only.Specimen will be kept for 2 weeks, if the sample is adequate. Confirmation testing can be initiated by calling the lab within 2 weeks. Result Comment: Urin e Fentanyl Cutoff: < 1 ng/mL = None Detected Performed By: #### L [id number] #### [facility] [address] [address] Travis Christensen M.D. [id number] METHADONE SCREEN, URINE Not detected Normal None Detected [facility] Comment on above: Order Comment: Scree n results should be used for treatment purposes only.Specimen will be kept for 2 weeks, if the sample is adequate. Confirmation testing can be initiated by calling the lab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 METABOLIC PANEL Performed By: #### 2 77070 #### [facility],[address] [place] [address]708 CO2 [Moles/Vol] 27.7 mmol/L Normal 21.0 - 32.0 [facility] Comment on above: Performed By: #### 2 33734 #### [facility],[address] [place] [address]177 Creatinine [Mass/Vol] 0.79 mg/dL Normal 0.70 - 1.30 [facility] Comment on above: Performed By: #### 2 06720 #### [facility],[address] [place] [address] 12717 GFR/1.73 sq M.predicted among non-blacks MDRD (S/P/Bld) [Vol rate/Area] mL/min/{1.73_m2} Normal 60 - 999 [facility] Comment on above: Performed By: #### 2 42595 #### [facility],[address] [place] [address] 61837 Result Comment: ACCO RDING TO THE NATIONAL KIDNEY DISEASE EDUCATION PROGRAM(NKDE), A NORMAL eGFR IS A VALUE GREATER THAN OR EQUAL TO 60 ML/MIN/1.73 SQ METERS. CHRONIC KIDNEY DISEASE: <60mL/MIN/1.73 SQ METERS KIDNEY FAILURE: <15mL/MIN/1.73 SQ METERS THIS TEST SHOULD ONLY BE USED FOR PATIENTS 18 YEARS OF AGE AND OLDER. Globulin (S) [Mass/Vol] 3.1 g/dL Normal 1.5 - 3.8 [facility] Comment on above: Performed By: #### 2 90179 #### [address] [address] Glucose [Mass/Vol] 106 mg/dL Normal 74 - 106 [facility] Comment on above: Performed By: #### 2 87461 #### [facility],[address] [place] [address]22 Potassium [Moles/Vol] 3.7 mmol/L Normal 3.5 - 5.1 [facility] Comment on above: Performed By: #### 2 43252 #### [facility],[address] [place] [address] 03445 Protein [Mass/Vol] 6.3 g/dL Low 6.4 - 8.2 [facility] Comment on above: Performed By: #### 2 88110 #### [facility],[address] [place] [address] 15729 Sodium [Moles/Vol] 144 mmol/L Normal 136 - 145 [facility] Comment on above: Performed By: #### 2 14563 #### [address] [address] Urea nitrogen [Mass/Vol] 6 mg/dL Low 7 - 18 [facility] Comment on above: Performed By: #### 2 48781 #### [facility],[address] [place] [address],[facility] [address] DRUG SCREEN URINE MEDICon AMPHETAMINES Negative Normal [facility] Comment on above: Performed By: #### 2 86245 ####[facility],[address] [place] [address],[facility] [address] B-DIAZEPINES Positive Normal [facility] Comment on above: Performed By: #### 2 19131 ####[facility],[address] [facility] [address] BARBITURATES Positive Normal [facility] Comment on above: Performed By: #### 2 98876 ####[facility],[address] [place] [address],[facility] [address] COCAINE Negative Normal [facility] Comment on above: Performed By: #### 2 89963 ####[facility],[address] [place] [address]657 DRUG SCREEN URINE MEDIC Normal [facility] Comment on above: Result Comment: DRUG SCREEN - URINE Performed By: #### 2 23688 ####[facility],[address] [facility] [address] METHADONE Negative Normal [facility] Comment on above: Performed By: #### 2 60482 ####[facility],[address] [place] [address] 63357 OPIATES Negative Normal [facility] Comment on above: Performed By: #### 2 44614 ####[facility],[address] [facility],[place] [address] PCP Negative Normal [facility] Comment on above: Performed By: #### 2 13942 ####[facility],[address] [facility] [address] THC Negative Normal [facility] Comment on above: Result Comment: CHACORTA ENTS RECEIVING PROTON PUMP INHIBITORS MAY DEMONSTRATE FALSE POSITIVE THC/CANNABINOID RESULTS. AN ALTERNATIVE CONFIRMATORY METHOD SHOULD BE CONSIDERED TO VERIFY POSITIVE RESULTS. Performed By: #### 2 22045 ####[facility],[address] [place] [address] ED MED ADMINISTRATION DETAIL on 09-30-2024 ED MED ADMINISTRATION DETAIL Creative Services Specialist - KADE BARRERA, : 1995, , Medication [place] [address] [id number] 09/29/2024 Patient: KADE BARRERA Sex: Male : 1995 Age: 28y MEASUREMENTS: Wt: 78.9 kg, Ht/Pedro: 71.0 in, BMI: 24.27 ALLERGIES: No known drug allergies Medication Ordered Medication Administration Date/Time 1 of 1 Normal [facility] ED NURSES CLINICAL NOTEon ED NURSES CLINICAL NOTE Nurse Narrative - KADE BARRERA, : 1995, , Nurse Clinical Narrative [address] [address] [id number] 09/29/2024 22:27:00 Patient: KADE BARRERA Sex: Male [...] 23:37 09/29/24 EDT Juanita Altman 00:51 09/30/24. Fitness Teacher at the patient's bedside (crisis). -- 01:16 09/30/24 EDT Sandra Olguin R.N. DISPOSITION / DISCHARGE Departure time: 01:32 09/30/2024. Condition at departure: improved. No learning barriers present. Discharge instructions provided and reviewed with the patient. Reviewe (more content not included)... Normal [facility] ED ORDER SHEET (CPOE ONLY)on 09-30-2024 ED ORDER SHEET (CPOE ONLY) Order Sheet - KADE BARRERA, : 1995, , Order Sheet [address] [address] [id number] 09/29/2024 Patient: KADE BARRERA Sex: Male : [...] (09/30/2024 02:22 EDT)] 2 of 2 Normal [facility] ED PHYSICIAN CLINICAL REPORT on 09-30-2024 ED PHYSICIAN CLINICAL REPORT [place] - KADE BARRERA, : 1995, , Physician Clinical [place] [address] [place] [address] [id number] 09/29/2024 22:27:00 Patient: KADE BARRERA Sex: Male [...] - 10.0 Final EDT 4 of 11 [place] KADE BARRERA, : 1995, , 09/29/2024 23:09 EO % 2.1 % 0.0 - 7.0 Final EDT 09/29/2024 23:09 BASO % 0.3 % 0.0 - 2.0 Final EDT 09/29/2024 23:09 Lymph # 1.71 x10/UL 0.80 - 2.80 Final EDT 09/29/2024 23:09 Neut # 3.94 x10/UL 1.50 - 7.10 Final EDT 09/29/2024 23:09 Trimble # 0.51 x10/UL 0.20 - 1.00 Fin (more content not included)... Normal [facility] ED SUPER BILLon 09-30-[address] [facility] - KADE BARRERA, : 1995, , [address] [address] [id number] 09/29/2024 Patient: KADE BARRERA Sex: Male : 1995 Age: 28y Item Professional Category Description Facility Code Code Quantity Fee Total Nurse/E/M EMERGENCY 675024 1 $0.00 $0.00 DEPARTMENT VISIT MODERATE SEVERITY (95002-49) Grand Total $0.00 Providers Rachel Bob D.O. Chief Complaint SUICIDAL THOUGHTS. Principal Diagnosis Anxiety reaction. Uncomplicated alcohol intoxication.No alcohol intoxication with delirium or alcohol dependence. [address] [facility] - KADE BARRERA, : 1995, , ICD-10 Codes F41.1: Generalized anxiety disorder F10.120: Alcohol abuse with intoxication, uncomplicated F10.129: Alcohol abuse with intoxication, unspecified 2 of 2 [facility] ED VISIT SUMMARYon ED VISIT SUMMARY Visit Overview - KADE BARRERA, : 1995, , Visit [address] [address] [id number] 09/29/2024 Patient: KADE BARRERA Sex: Male : [...] 09/29/24 2 of 3 Visit Overview - POPEDDA CLARKEMIAH, : 1995, , First Vitals Last Vitals [...] OR ALCOHOL DEPENDENCE 3 of 3 Normal [facility] ED VITALS FLOW SHEETon 09-30 ED VITALS FLOW SHEET Vitals - KADE GONZALEZ, : 1995, , Vital Sign Flow Sheet [address] [place] [address] [id number] 09/29/2024 Patient: KADE BARRERA Sex: Male : 1995 Age: 28y Measurements Wt: 78.9 kg, Ht/Pedro: 71.0 in, BMI: 24.27 Measured Time BP MAP HR RR O2Sat ETCO2 Temp Pain GCS RTS 22:37 09/29/2024 142/77 99 104 16 95% 98.7 F 0 1 of 1 Normal [facility] SALICYLATEon 09-30-2024 SALICYLATE 3.2 mg/dl Normal 2.8 - 20.0 [facility] Comment on above: Result Comment: *PAT IENTS TREATED WITH SULFASALAZINE MAY GENERATE A FALSE HIGH RESULT FOR SALICYLATE. *PATIENTS TREATED WITH SULFAPYRIDINE MAY GENERATE A FALSE LOW RESULT FOR SALICYLATE. Performed By: #### 2 23150 #### [facility],[address] [place], [place] [phone] ACETAMINOPHENon 09-29-2024 Acetaminophen [Mass/Vol] ug/mL Low 10.0 - 30.0 [facility] Comment on above: Performed By: #### 2 30593 #### [facility],[address] [place], [place] [phone] ALCOHOL-BLOOD MEDICALon 09-11 Ethanol [Mass/Vol] 138 mg/dL High 0 - 50 [facility] Comment on above: Performed By: #### 2 03197 ####[facility],[address] [place] [address] 98273 CBC + DIFFon 09-29-2024 Baso # 0.02 x10EE3/UL Normal 0.00 - 0.10 [facility] Comment on above: Performed By: #### 2 30025 ####[facility],[address] [place] [address] 57499 Basophils/100 WBC (Bld) 0.3 % Normal 0.0 - 2.0 [facility] Comment on above: Performed By: #### 2 69718 ####[facility] [facility],[address] [place] [address] CBC + DIFF Normal [facility] Comment on above: Result Comment: CBC- COMPLETE BLOOD COUNT Performed By: #### 2 39693 ####[facility],[address] [place] [address] EO # 0.13 x10EE3/UL Normal 0.00 - 0.50 [facility] Comment on above: Performed By: #### 2 41542 ####[facility],[address] [place] [address] 85558 Eosinophils/100 WBC (Bld) 2.1 % Normal 0.0 - 7.0 [facility] Comment on above: Performed By: #### 2 40882 ####[facility],[address] [place], [place] [phone] Erythrocyte distribution width (RBC) [Ratio] 12.0 % Normal 12.0 - 15.6 [facility] Comment on above: Performed By: #### 2 00734 ####[facility],[address] [place] [address] Hematocrit (Bld) [Volume fraction] 42.5 % Normal 40.0 - 52.0 [facility] Comment on above: Performed By: #### 2 04899 ####[facility],[address] [place] [address] 02281 Hemoglobin (Bld) [Mass/Vol] 15.5 g/dL Normal 13.0 - 17.5 [facility] Comment on above: Result Comment: H AN D H REPEATED Performed By: #### 2 07426 ####[facility],[address] [place], [place] [phone] Lymph # 1.71 x10EE3/UL Normal 0.80 - 2.80 [facility] Comment on above: Performed By: #### 2 44402 ####[facility],[address] [place] [address] 37119 Lymphocytes/100 WBC (Bld) 27.1 % Normal 20.0 - 45.0 [facility] Comment on above: Performed By: #### 2 85893 ####[facility],[address] [place] [address] 73226 MANUAL DIFF N/A Normal [facility] Comment on above: Performed By: #### 2 59160 ####[facility],[address] [place] [address] MCH (RBC) [Entitic mass] 36 pg High 27 - 33 [facility] Comment on above: Performed By: #### 2 07636 ####[place] [address] MCHC 36 X10 3 Normal 32 - 36 [facility] Comment on above: Performed By: #### 2 93564 ####[facility],[address] [place] [address] 50363 MCV (RBC) [Entitic vol] 100 fL High 81 - 98 [facility] Comment on above: Performed By: #### 2 02155 ####[facility],[address] [place] [address] 05648 Trimble # 0.51 x10EE3/UL Normal 0.20 - 1.00 [facility] Comment on above: Performed By: #### 2 66734 ####[address] [address] MONOS % 8.1 % Normal 0.0 - 10.0 [facility] Comment on above: Performed By: #### 2 40180 ####[facility],[address] [place] [address] 84144 Morphology Isacc (Bld) [Interp] N/A Normal [facility] Comment on above: Performed By: #### 2 03760 ####[facility],[address] [place] [address] 69370 Neut # 3.94 x10EE3/UL Normal 1.50 - 7.10 [facility] Comment on above: Performed By: #### 2 91598 ####[facility],[address] [place] [address] 87741 Neutrophils/100 WBC (Bld) 62.4 % Normal 46.0 - 76.0 [facility] Comment on above: Performed By: #### 2 65163 ####[facility],[address] [place] [address] 56684 PLATELET 244 x10EE3/UL Normal 150 - 450 [facility] Comment on above: Performed By: #### 2 03930 ####[address] [address] Platelet mean volume (Bld) [Entitic vol] 7.6 fL Normal 6.4 - 10.5 [facility] Comment on above: Result Comment: AUTO MATED DIFFERENTIAL Performed By: #### 2 60163 ####[facility],[address] [place] [address] 01467 RBC 4.27 x 10EE6/UL Low 4.50 - 6.00 [facility] Comment on above: Performed By: #### 2 77915 ####[facility],[address] [place] [address] 03083 WBC 6.3 x 10EE3/UL Normal 4.5 - 10.8 [facility] Comment on above: Performed By: #### 2 02791 ####[facility],[address] [place] [address] 92095 CMP with eGFRon 09-29-2024 AGE 28 years Normal [facility] Comment on above: Performed By: #### 2 74473 #### [facility],[address] [place] [address] 70826 Albumin [Mass/Vol] 3.3 g/dL Low 3.4 - 5.0 [facility] Comment on above: Performed By: #### 2 91452 #### [facility],[address] [place] [address] 31157 Albumin/Globulin [Mass ratio] 1.0 {ratio} Normal 0.9 - 1.6 [facility] Comment on above: Performed By: #### 2 70289 #### [facility],[address] [place] [address] 30401 ALK PHOS 75 U/L Normal 46 - 116 [facility] Comment on above: Performed By: #### 2 95552 #### [facility],[address] [place], [place] [phone] ALT [Catalytic activity/Vol] 76 U/L High 16 - 63 [facility] Comment on above: Performed By: #### 2 99259 #### [facility],[address] [place], [place] [phone] Anion gap [Moles/Vol] 11 mmol/L Normal 10 - 20 [facility] Comment on above: Performed By: #### 2 74885 #### [facility],[address] [place] [address] 80683 AST [Catalytic activity/Vol] 49 U/L High 15 - 37 [facility] Comment on above: Performed By: #### 2 64876 #### [facility],[address] [place] [address] 64898 B/C RATIO 6 ratio Normal 0 - 30 [facility] Comment on above: Performed By: #### 2 62181 #### [facility],[address] [place] [address] 37552 Bilirubin [Mass/Vol] 0.4 mg/dL Normal 0.2 - 1.0 [facility] Comment on above: Performed By: #### 2 00661 #### [facility],[address] [place] [address] 65754 Calcium [Mass/Vol] 8.6 mg/dL Normal 8.5 - 10.1 [facility] Comment on above: Performed By: #### 2 95962 #### [facility],[address] [place], [place] [phone] Chloride [Moles/Vol] 105 mmol/L Normal 98 - 107 [facility] Comment on above: Performed By: #### 2 11587 #### [facility],[address] [place], [place] [phone] CMP with eGFR Normal [facility] Comment on above: Result Comment: COMP REHENSIVE METABOLIC PANEL Performed By: #### 2 95229 #### [place] [address] CO2 [Moles/Vol] 26.4 mmol/L Normal 21.0 - 32.0 [facility] Comment on above: Performed By: #### 2 66074 #### [facility],[address] [place] [address] Creatinine [Mass/Vol] 0.64 mg/dL Low 0.70 - 1.30 [facility] Comment on above: Performed By: #### 2 20427 #### [facility],[address] [place] [address] GFR/1.73 sq M.predicted among non-blacks MDRD (S/P/Bld) [Vol rate/Area] mL/min/{1.73_m2} Normal 60 - 999 [facility] Comment on above: Performed By: #### 2 09288 #### [place] [address] Result Comment: ACCO RDING TO THE NATIONAL KIDNEY DISEASE EDUCATION PROGRAM(NKDE), A NORMAL eGFR IS A VALUE GREATER THAN OR EQUAL TO 60 ML/MIN/1.73 SQ METERS. CHRONIC KIDNEY DISEASE: <60mL/MIN/1.73 SQ METERS KIDNEY FAILURE: <15mL/MIN/1.73 SQ METERS THIS TEST SHOULD ONLY BE USED FOR PATIENTS 18 YEARS OF AGE AND OLDER. Globulin (S) [Mass/Vol] 3.4 g/dL Normal 1.5 - 3.8 [facility] Comment on above: Performed By: #### 2 31859 #### [facility],[address] [place] [address] 11876 Glucose [Mass/Vol] 116 mg/dL High 74 - 106 [facility] Comment on above: Performed By: #### 2 57242 #### [facility],[address] [place] [address] 70698 Potassium [Moles/Vol] 3.7 mmol/L Normal 3.5 - 5.1 [facility] Comment on above: Performed By: #### 2 63699 #### [facility],[address] [place] [address] 21375 Protein [Mass/Vol] 6.7 g/dL Normal 6.4 - 8.2 [facility] Comment on above: Performed By: #### 2 53038 #### [facility],[address] [place] [address] 53911 Sodium [Moles/Vol] 139 mmol/L Normal 136 - 145 [facility] Comment on above: Performed By: #### 2 94232 #### [facility],[address] [place] [address] 24928 Urea nitrogen [Mass/Vol] 4 mg/dL Low 7 - 18 [facility] Comment on above: Performed By: #### 2 46798 #### [facility],[address] [place] [address] 76058 DRUG SCREEN URINE MEDICon AMPHETAMINES Negative Normal [facility] Comment on above: Performed By: #### 2 34306 #### [facility],[address] [place] [address] 21919 B-DIAZEPINES Positive Normal [facility] Comment on above: Performed By: #### 2 25271 #### [facility],[address] [place] [address] 87885 BARBITURATES Positive Normal [facility] Comment on above: Performed By: #### 2 89816 #### [facility],[address] [place] [address] 65227 COCAINE Negative Normal [facility] Comment on above: Performed By: #### 2 73573 #### [facility],[address] [place] [address] 53472 DRUG SCREEN URINE MEDIC Normal [facility] Comment on above: Result Comment: DRUG SCREEN - URINE Performed By: #### 2 87071 #### [facility],[address] [place] [address],[facility] [address] METHADONE Negative Normal [facility] Comment on above: Performed By: #### 2 93122 #### [facility],[address] [place] [address] 46044 OPIATES Negative Normal [facility] Comment on above: Performed By: #### 2 44660 #### [facility],[address] [place] [address] 82492 PCP Negative Normal [facility] Comment on above: Performed By: #### 2 22983 #### [facility],[address] [place] [address] 59790 THC Negative Normal [facility] Comment on above: Result Comment: CHACORTA ENTS RECEIVING PROTON PUMP INHIBITORS MAY DEMONSTRATE FALSE POSITIVE THC/CANNABINOID RESULTS. AN ALTERNATIVE CONFIRMATORY METHOD SHOULD BE CONSIDERED TO VERIFY POSITIVE RESULTS. Performed By: #### 2 92867 #### [facility],[address] [place] [address] 11205 SALICYLATEon 09-29-2024 SALICYLATE 3.0 mg/dl Normal 2.8 - 20.0 [facility] Comment on above: Result Comment: *PAT IENTS TREATED WITH SULFASALAZINE MAY GENERATE A FALSE HIGH RESULT FOR SALICYLATE. *PATIENTS TREATED WITH SULFAPYRIDINE MAY GENERATE A FALSE LOW RESULT FOR SALICYLATE. Performed By: #### 2 26610 #### [facility],[address] [place] [address] 73755 URINALYSISon 09-29-2024 Bilirubin Ql (U) Negative Normal NORMAL: NEGATIVE [facility] Comment on above: Performed By: #### 2 69641 #### [facility],[address] [place] [address] 74929 Clarity (U) clear Normal NORMAL: CLEAR [facility] Comment on above: Performed By: #### 2 50333 #### [facility],[address] [place], [place] [phone] Color (U) yellow Normal NORMAL: YELLOW [facility] Comment on above: Performed By: #### 2 10892 #### [facility],[address] [place] [address] 65984 Glucose Ql (U) NORM Normal NORMAL: NORMAL [facility] Comment on above: Performed By: #### 2 50448 #### [facility],[address] [place] [address] 07387 Hemoglobin Ql (U) Negative Normal NORMAL: NEGATIVE [facility] Comment on above: Performed By: #### 2 28232 #### [facility],[address] [place] [address] 91986 Ketone Negative Normal NORMAL: NEGATIVE [facility] Comment on above: Performed By: #### 2 76006 #### [facility],[address] [place] [address] 63642 Leukocytes Negative Normal NORMAL: NEGATIVE [facility] Comment on above: Performed By: #### 2 35909 #### [facility],[address] [place] [address] 56164 Nitrite Ql (U) Negative Normal NORMAL: NEGATIVE [facility] Comment on above: Performed By: #### 2 26899 #### [facility],[address] [place] [address] 88431 pH (U) 6 [pH] Normal NORMAL: 5.0-8.0 [facility] Comment on above: Performed By: #### 2 21022 #### [facility],[address] [place] [address] Protein Ql (U) Negative Normal NORMAL: NEGATIVE [facility] Comment on above: Performed By: #### 2 65592 #### [facility],[address] [place] [address] Sp Maud 1.010 Normal NORMAL: 1.010-1.030 [facility] Comment on above: Performed By: #### 2 66447 #### [facility],[address] [place] [address] Specimen Type R Normal [facility] Comment on above: Performed By: #### 2 27465 #### [facility],[address] [place] [address] Urinalysis dipstick W Reflex Microscopic panel (U) NOT INDICATED Normal [facility] Comment on above: Performed By: #### 2 66209 #### [facility],[address] [place] [address] Urobilinog NORM Normal NORMAL: NORMAL [facility] Comment on above: Performed By: #### 2 60260 #### [facility],[address] [place] [address] ALCOHOL-BLOOD MEDICALon 09-11 Ethanol [Mass/Vol] 191 mg/dL High 0 - 50 [facility] Comment on above: Performed By: #### 2 56592 #### [facility],[address] [place] [address] CHEST 1 VIEWon 09-28-2024 CHEST 1 VIEW [place] [address] Patient: KADE BARRERA Phone#: : 1995 Age: 28 Gender: M Pt. Type: ER Account: [id number] Location: [facility] Ordering: RACHEL BOB Exam Date: 09/28/2024/0:27 Family Phys: Charge Code: [id number] Physician: Bollinger Order #: [id number] Dose#: PROCEDURE: X-RAY CHEST 1 VIEW COMPARISON: [...] Marin MD on 09/28/2024 at 1:47 Normal [facility] CMP with eGFRon 09-28-2024 AGE 28 years Normal [facility] Comment on above: Performed By: #### 2 93547 ####[address] [address] Albumin [Mass/Vol] 4.0 g/dL Normal 3.4 - 5.0 [facility] Comment on above: Performed By: #### 2 61819 ####[facility],[address] [place] [address] 57485 Albumin/Globulin [Mass ratio] 1.2 {ratio} Normal 0.9 - 1.6 [facility] Comment on above: Performed By: #### 2 40090 ####[facility],[address] [place] [address] 29296 ALK PHOS 79 U/L Normal 46 - 116 [facility] Comment on above: Performed By: #### 2 50809 ####[address] [address] ALT [Catalytic activity/Vol] 97 U/L High 16 - 63 [facility] Comment on above: Performed By: #### 2 68596 ####[address] [address] Anion gap [Moles/Vol] 14 mmol/L Normal 10 - 20 [facility] Comment on above: Performed By: #### 2 92151 ####[facility],[address] [place] [address] 89170 AST [Catalytic activity/Vol] 111 U/L High 15 - 37 [facility] Comment on above: Performed By: #### 2 01529 ####[facility],[address] [place] [address] 12418 B/C RATIO 4 ratio Normal 0 - 30 [facility] Comment on above: Performed By: #### 2 83820 ####[facility],[address] [place] [address] 61310 Bilirubin [Mass/Vol] 0.3 mg/dL Normal 0.2 - 1.0 [facility] Comment on above: Performed By: #### 2 96512 ####[facility],[address] [place] [address] 56254 Calcium [Mass/Vol] 8.6 mg/dL Normal 8.5 - 10.1 [facility] Comment on above: Performed By: #### 2 50046 ####[facility],[address] [place] [address] 61664 Chloride [Moles/Vol] 104 mmol/L Normal 98 - 107 [facility] Comment on above: Performed By: #### 2 75571 ####[facility],[address] [place] [address] 20104 CMP with eGFR Normal [facility] Comment on above: Result Comment: COMP REHENSIVE METABOLIC PANEL Performed By: #### 2 34959 ####[facility],[address] [place] [address] 03994 CO2 [Moles/Vol] 24.5 mmol/L Normal 21.0 - 32.0 [facility] Comment on above: Performed By: #### 2 82769 ####[facility],[address] [place] [address] 20044 Creatinine [Mass/Vol] 0.69 mg/dL Low 0.70 - 1.30 [facility] Comment on above: Performed By: #### 2 50540 ####[facility],[address] [place] [address] 94649 GFR/1.73 sq M.predicted among non-blacks MDRD (S/P/Bld) [Vol rate/Area] mL/min/{1.73_m2} Normal 60 - 999 [facility] Comment on above: Performed By: #### 2 41639 ####[facility],[address] [place], [place] [phone] Result Comment: ACCO RDING TO THE NATIONAL KIDNEY DISEASE EDUCATION PROGRAM(NKDE), A NORMAL eGFR IS A VALUE GREATER THAN OR EQUAL TO 60 ML/MIN/1.73 SQ METERS. CHRONIC KIDNEY DISEASE: <60mL/MIN/1.73 SQ METERS KIDNEY FAILURE: <15mL/MIN/1.73 SQ METERS THIS TEST SHOULD ONLY BE USED FOR PATIENTS 18 YEARS OF AGE AND OLDER. Globulin (S) [Mass/Vol] 3.3 g/dL Normal 1.5 - 3.8 [facility] Comment on above: Performed By: #### 2 92207 ####[address] [address] Glucose [Mass/Vol] 93 mg/dL Normal 74 - 106 [facility] Comment on above: Performed By: #### 2 72415 ####[facility],[address] [place] [address] 17961 Potassium [Moles/Vol] 3.9 mmol/L Normal 3.5 - 5.1 [facility] Comment on above: Performed By: #### 2 06173 ####[facility],[address] [place] [address] 42833 Protein [Mass/Vol] 7.3 g/dL Normal 6.4 - 8.2 [facility] Comment on above: Performed By: #### 2 66910 ####[facility],[address] [place] [address] 46099 Sodium [Moles/Vol] 139 mmol/L Normal 136 - 145 [facility] Comment on above: Performed By: #### 2 12340 ####[facility],[address] [place] [address] 36888 Urea nitrogen [Mass/Vol] 3 mg/dL Low - [facility] Comment on above: Performed By: #### 2 17078 ####[facility],[address] [place] [address] BRAIN W/O CONTRASTon 08- CT BRAIN W/O CONTRAST [address] [address] Patient: KADE BARRERA Phone#: : 1995 Age: 28 Gender: M Pt. Type: ER Account: [id number] Location: [facility] Ordering: RACHEL BOB Exam Date: 09/27/2024/23:59 Family Phys: Charge Code: [id number] Physician: Bollinger Order #: [id number] Dose#: 52.3 PROCEDURE: CT BRAIN WITHOUT CONTRAST [...] Marin MD on 09/28/2024 at 0:27 Normal [facility] CT CERVICAL W/O CONTRASTon 0 09-28-2024 CT CERVICAL W/O CONTRAST [address] [address] Patient: KADE BARRERA Phone#: : 1995 Age: 28 Gender: M Pt. Type: ER Account: [id number] Location: [facility] Ordering: RACHEL BOB Exam Date: 09/27/2024/23:59 Family Phys: Charge Code: [id number] Physician: Bollinger Order #: [id number] Dose#: 12.5 PROCEDURE: CT CERVICAL WITHOUT CONTRAST [...] 28 Gender: M Pt. Type: ER Account: [id number] Location: 052 Ordering: RACHEL BOB Exam Date: 09/27/2024/23:59 Family Phys: Charge Code: [id number] Physician: Bollinger Order #: [id number] Dose#: 12.5 Approved by: Ethel Marin MD on 09/28/2024 at 0:18 Normal [facility] DRUG SCREEN URINE MEDICon AMPHETAMINES Negative [facility] Comment on above: Performed By: #### 2 69332 #### [facility],[address] [place] [address] B-DIAZEPINES Positive [facility] Comment on above: Performed By: #### 2 09335 #### [facility],[address] [place], [place] [phone] BARBITURATES Positive [facility] Comment on above: Performed By: #### 2 43485 #### [facility],[address] [place] [address] COCAINE Negative [facility] Comment on above: Performed By: #### 2 27593 #### [facility],[address] [place] [address] 45220 DRUG SCREEN URINE MEDIC Normal [facility] Comment on above: Result Comment: DRUG SCREEN - URINE Performed By: #### 2 24700 #### [facility],[address] [place] [address] 95246 METHADONE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 [id number] ####Transformer Builder: DIONNA JIMENEZ ([id number])[facility] ([facility])[address] [place] [address] METHADONE SCREEN Negative Normal [facility] Comment on above: Performed By: #### L [id number] ####Transformer Builder: DIONNA JIMENEZ ([id number])[facility] ([facility])[address] [place] [address] OPIATES SCREEN Negative Normal [facility] Comment on above: Performed By: #### L [id number] ####Transformer Builder: DIONNA JIMENEZ ([id number])[facility] ([facility])[address] [place] [address] OXYCODONE SCREEN Negative Normal [facility] Comment on above: Performed By: #### L [id number] ####Transformer Builder: DIONNA JIMENEZ ([id number])[facility] ([facility])[address] [place] [address] PHENCYCLIDINE SCREEN Negative Normal [facility] Comment on above: Performed By: #### L [id number] ####Transformer Builder: DIONNA JIMENEZ ([id number])[facility] ([address] ECG 12-LEADon 06-11-2024 ECG 12-LEAD IMPRESSION: Pacemaker spikes or artifacts Sinus rhythm Electronically Signed On 06-11-2024 10:13:28 EDT by Mike Wright [facility] ED Nursing Noteon 06-11-2024 ED Nursing Note Report given to Larry broderick RN. [facility] ED Nursing Note Pt ambulated independently back and forth to the restroom. 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 Pt currently on laboratory monitor; sts that the pain starts in the L shoulder and radiates into the neck and then jaw. [facility] ED Nursing Note Pt heading [facility]. 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 NOTE: This result is for medical treatment only. Analysis performed using non-forensic procedures. Performed By: #### L AB15, [id number], LAB46, LAB62 ####Transformer Builder: DIONNA JIMENEZ ([id number])[facility] ([address] Ethanol (Bld) [Mass/Vol]on 0 06-11-2024 Ethanol [Mass/Vol] mg/dL NINF - 10 mg/dL [facility] Interpretation and review of laboratory results Normal [facility] SHIRT IRONER SUPERVISOR depression is se en >100 mg/dL. NOTE: This result is for medical treatment only. Analysis performed using non-forensic procedures. [facility] HIGH SENSITIVITY TROPONIN, S ERIAL BASELINEon 06-11-2024 TROPONIN HS SERIAL BASELINE <3 Normal <=35 [facility] Comment on above: Result Comment: In i ndividuals presenting with symptoms > 2h, a baseline troponin <= 5 ng/L suggests acute cardiac injury is unlikely and further serial testing is generally not indicated. Performed By: #### L AB15, [id number], LAB46, LAB62 ####Transformer Builder: DIONNA JIMENEZ ([id number])[facility] ([facility])[address] [place] [address] Laboratory - Chemistry and C hemistry - challengeon 06-11-2024 CK [Catalytic activity/Vol] 247 U/L High 30 - 185 U/L [facility] Laboratory - Drug toxicology on 06-11-2024 Amphetamines Screen method >1000 ng/mL Ql (U) Positive [facility] [employer] Barbiturates Screen method >200 ng/mL Ql (U) Positive [facility] [employer] Benzodiazepines Ql (U) Negative [facility] [employer] Methadone Screen Ql (U) Negative [facility] Opiates Screen Ql (U) Negative [facility] oxyCODONE Ql (U) Negative [facility] [employer] Phencyclidine Ql (U) Negative [facility] [employer] No Panel InformationOrdered By: Mike Wright on 06-11-2024 P Fowler 67 degrees [employer] Work Phone: TX Interval 139 ms [employer] Work Phone: QRS Fowler 80 degrees [employer] Work Phone: QRSD Interval 95 ms [employer] Work Phone: QT Interval 334 ms [employer] Work Phone: QTC Interval 418 ms [employer] Work Phone: [phone] Wave Fowler 52 degrees [employer] Work Phone: [employer] Work Phone: No Panel Informationon 06-11 Pacemaker spikes or artifacts Sinus rhythm Electronically Signed On 06-11-2024 10:13:28 EDT by Mike Wright CV Mike Angela MD - 06/11/2024 IMPRESSION: Pacemaker spikes or artifacts Sinus rhythm Electronically Signed On 06-11-2024 10:13:28 EDT by Mike Wright [facility] Interpretation and review of laboratory results Normal [facility] Troponin HS Serial Baseline ng/L NINF - 35 ng/L [facility] Comment on above: In individuals prese nting with symptoms > 2h, a baseline troponin <= 5 ng/L suggests acute cardiac injury is unlikely and further serial testing is generally not indicated. [facility] Interpretation and review of laboratory results Abnormal [facility] COCAINE METAB. SCREEN Negative [facility] FENTANYL SCREEN, UR QUAL Negative [facility] The expected value f or all [...] is needed, request confirmation under separate order. [facility] Vital signsOrdered By: Mike Wright on 06-11-2024 Heart rate 94 /min bpm [facility] Work Phone: XR Chest 2 Viewson 5 1. No evidence of an acute cardiopulmonary process. Report Dictated on Electronically Signed By: Jovanni Garcia MD Electronically Signed Date/Time: 06/11/2024 5:00 AM EDT [facility] 1995 [id number] Exam Date/Time: 06/11/2024 04:41 Procedure: XR CHEST 2 VIEWS Ordering Provider: DAHL STEPHEN Reason For Exam: Chest pain CLINICAL INFORMATION: Chest pain. PA and lateral views of the chest are provided without comparison. FINDINGS: The cardiac silhouette and mediastinum are within normal limits. The lungs are free of infiltrate or pleural effusion. The visualized bones and soft tissues are grossly unremarkable. [facility] Jovanni Garcia MD - 06/11/2024 [...] Electronically Signed Date/Time: 06/11/2024 5:00 AM EDT [facility] Radiology Study observation (narrative) [facility] XR Chest 2 ViewsOrdered By: Jovanni Garcia on 06-11-2024 [facility] Work Phone: ED Nursing Noteon 06-10-2024 ED Nursing Note Pt did not want to w ait to be seen. Pt seen walking out of ED. Pt A&OX4. Steady gait noted. No IV access obtained during visit. Normal [facility] ED Nursing Note Pt states he called poison control due to mixing alcohol and ice. Pt states he has been drinking beer all day. Normal [facility] ED Provider Noteon ED Provider Note Patient left without being seen after initial triage by nursing staff. As such, I did not participate in the care of this patient. Danita Barcenas PA-C 06/11/24 0118 Normal [facility] AMB POC COVID-19 COVon 01-27 Interpretation and review of laboratory results Normal [facility] SARS-CoV-2 (COVID-19) RNA DOMINIC+non-probe Ql (Nph) Negative Negative [facility] AMB POC RAPID INFLUENZA DNA/ RNAon 01-28-2024 Inflenza A Ag Positive [facility] Influenza B Ag Negative [facility] Interpretation and review of laboratory results Abnormal [facility] Office Visiton 01-28-2024 Follow-up visit [id number] Kade Barrera 1995 M Date Provider Department Center 01/28/2024 [id number] RETANA [facility] None No family history on file Level of Service:86348 [place] OFFICE/OUTPATIENT ESTABLISHED LOW MDM 20 MIN Reason for Visit and Comments: URI [115] - Cough /Body ache/ migraine/stuffy nose /pt stated that he started new medication yesterday and that when he started feeling sick. Normal [facility] Progress Noteon 01-28-2024 Progress Note [facility] [address] [address] Dept: [phone] Dept Loc: [phone] Subjective Kade Barrera is a 28 y.o. [...] as words (more content not included)... Normal [facility] .Auto Diffon 06-20-2023 Basophil, Absolute 0.1 10 3/mcL Normal 0.0-0.2 [facility] ([place] Comment on above: Performed By: #### A RIVERA IBARRA, CBC, ALC, ADIFF, CMP, GFR #### [address] [address] Basophils/100 WBC (Bld) 1.0 % Normal 0.0-2.5 [facility] ([place]) Comment on above: Performed By: #### A RIVERA IBARRA, CBC, ALC, ADIFF, CMP, GFR #### [address] [address] Eosinophil, Absolute 0.0 10 3/mcL Normal 0.0-0.4 [facility] ([place]) Comment on above: Performed By: #### A RIVERA IBARRA, CBC, ALC, ADIFF, CMP, GFR #### [address] [address] Eosinophils/100 WBC (Bld) 0.5 % Normal 0.0-7.0 [facility] ([place] Comment on above: Performed By: #### A RIVERA IBARRA, CBC, ALC, ADIFF, CMP, GFR #### [address] [address] Lymphocyte, Absolute 2.4 10 3/mcL Normal 0.8-3.9 [facility] ([place]) Comment on above: Performed By: #### A RIVERA IBARRA, CBC, ALC, ADIFF, CMP, GFR #### [address] [address] Lymphocytes/100 WBC (Bld) 29.4 % Normal 10.0-50.0 [facility] ([place] Comment on above: Performed By: #### A RIVERA IBARRA, CBC, ALC, ADIFF, CMP, GFR #### [address] [address] Monocyte, Absolute 0.6 10 3/mcL Normal 0.2-1.0 [facility] ([place] Comment on above: Performed By: #### A RIVERA IBARRA, CBC, ALC, ADIFF, CMP, GFR #### [address] [address] Monocytes/100 WBC (Bld) 7.6 % Normal 1.7-13.0 [facility] ([place] Comment on above: Performed By: #### A RIVERA IBARRA, CBC, ALC, ADIFF, CMP, GFR #### [address] [address] Neutrophils/100 WBC (Bld) 61.5 % Normal 37.0-80.0 [facility] ([place] Comment on above: Performed By: #### A RIVERA IBARRA, CBC, ALC, ADIFF, CMP, GFR #### [address] [address] .GFRon 06-20-2023 GFR 96 ml/min/1.73sqm Normal [facility] ([place]) Comment on above: Result Comment: GFR Population [...] CBC, ALC, ADIFF, CMP, GFR ####[address] [place], [place] [address] GFR Non- 79 ml/min/1.73sqm Normal [facility] ([place]) Comment on above: Result Comment: GFR Population [...] IBARRA, CBC, ALC, ADIFF, CMP, GFR ####[address] [place], [place] [address] .MDWon 06-20-2023 Monocyte Distribution Width 18.60 Normal 0.00-20.00 [facility] ([place]) Comment on above: Result Comment: For ED adult patients suspected of sepsis, MDW<=20.0 does not rule out sepsis or risk of sepsis Performed By: #### A RIVERA IBARRA, CBC, ALC, ADIFF, CMP, GFR #### [address] [place], [place] [address] .NEUABSon 06-20-2023 Neutrophil, Absolute 5.0 10 3/mcL Normal 2.9-6.2 [facility] ([place]) Comment on above: Performed By: #### A RIVERA IBARRA, CBC, ALC, ADIFF, CMP, GFR #### [place] [address] Rob 06-20-2023 Ethanol Level <3 Normal 0-3 [facility] ([place] Comment on above: Performed By: #### A RIVERA IBARRA, CBC, ALC, ADIFF, CMP, GFR #### [place] [address] Keiko 06-20-2023 Ammonia (P) [Moles/Vol] 15 umol/L Normal 11-32 A [facility] ([place]) Comment on above: Performed By: #### P HOS, PRO, AMM ####[place] [address] CBCon 06-20-2023 Erythrocyte distribution width (RBC) [Ratio] 12.6 % Normal 11.5-14.5 [facility] ([place] Comment on above: Performed By: #### A RIVERA IBARRA, CBC, ALC, ADIFF, CMP, GFR #### [place] [address] Hematocrit (Bld) [Volume fraction] 40.3 % Low 42.0-52.0 [facility] ([place] Comment on above: Performed By: #### A RIVERA IBARRA, CBC, ALC, ADIFF, CMP, GFR #### [place] [address] Hgb 14.5 G/dL Normal 14.0-18.0 [facility] ([place]) Comment on above: Performed By: #### A RIVERA IBARRA, CBC, ALC, ADIFF, CMP, GFR #### [place] [address] MCH (RBC) [Entitic mass] 33.9 pg High 27.0-31.2 [facility] ([place]) Comment on above: Performed By: #### A RIVERA IBARRA, CBC, ALC, ADIFF, CMP, GFR #### [place] [id number] MCHC 35.9 G/dL High 31.8-35.4 [facility] ([place]) Comment on above: Performed By: #### A RIVERA IBARRA, CBC, ALC, ADIFF, CMP, GFR #### [address] [address] MCV (RBC) [Entitic vol] 94.3 fL High 80.0-94.0 [facility] ([place]) Comment on above: Performed By: #### A RIVERA IBARRA, CBC, ALC, ADIFF, CMP, GFR #### [address] [address] Platelet 230 10 3/mcL Normal 130-400 [facility] ([place]) Comment on above: Performed By: #### A RIVERA IBARRA, CBC, ALC, ADIFF, CMP, GFR #### [address] [address] Platelet mean volume (Bld) [Entitic vol] 7.5 fL Normal 7.4-10.4 [facility] ([place]) Comment on above: Performed By: #### A RIVERA IBARRA, CBC, ALC, ADIFF, CMP, GFR #### [address] [address] RBC 4.27 10 6/mcL Normal 4.04-6.13 [facility] ([place]) Comment on above: Performed By: #### A RIVERA IBARRA, CBC, ALC, ADIFF, CMP, GFR #### [address] [address] WBC 8.1 10 3/mcL Normal 4.6-10.8 [facility] ([place] Comment on above: Performed By: #### A RIVERA IBARRA, CBC, ALC, ADIFF, CMP, GFR #### [address] [address] CMPon 06-20-2023 Albumin Level 3.8 G/dL Normal 3.5-5.0 [facility] ([place] Comment on above: Performed By: #### A RIVERA IBARRA, CBC, ALC, ADIFF, CMP, GFR #### [address] [address] Albumin/Globulin [Mass ratio] 1.3 {ratio} Normal 1.1-2.5 [facility] ([place] Comment on above: Performed By: #### A RIVERA IBARRA, CBC, ALC, ADIFF, CMP, GFR #### [address] [address] ALP [Catalytic activity/Vol] 77 U/L Normal 40-135 [facility] ([place] Comment on above: Performed By: #### A RIVERA IBARRA, CBC, ALC, ADIFF, CMP, GFR #### [address] [address] ALT [Catalytic activity/Vol] 28 U/L Normal 16-63 [facility] ([place]) Comment on above: Performed By: #### A RIVERA IBARRA, CBC, ALC, ADIFF, CMP, GFR #### [address] [address] AST [Catalytic activity/Vol] 17 U/L Normal 10-40 [facility] ([place] Comment on above: Performed By: #### A RIVERA IBARRA, CBC, ALC, ADIFF, CMP, GFR #### [address] [address] Bili Total 0.3 mg/dL Normal 0.2-1.0 [facility] ([place] Comment on above: Result Comment: Use of this assay is not recommended for patients undergoing treatment with eltrombopag due to the potential for falsely elevated results. Performed By: #### A RIVERA IBARRA, CBC, ALC, ADIFF, CMP, GFR #### [address] [address] BUN/Creatinine Ratio 8 ratio Normal 7-27 [facility] ([place] Comment on above: Performed By: #### A RIVERA IBARRA, CBC, ALC, ADIFF, CMP, GFR #### [address] [address] Calcium [Mass/Vol] 8.6 mg/dL Normal 8.4-10.2 [facility] ([place]) Comment on above: Performed By: #### A RIVERA IBARRA, CBC, ALC, ADIFF, CMP, GFR #### [address] [address] Chloride [Moles/Vol] 105 mmol/L Normal 98-107 [facility] ([place] Comment on above: Performed By: #### A RIVERA IBARRA, CBC, ALC, ADIFF, CMP, GFR #### [address] [address] CO2 [Moles/Vol] 24 mmol/L Normal 22-29 [facility] ([place] Comment on above: Performed By: #### A RIVERA IBARRA, CBC, ALC, ADIFF, CMP, GFR #### [address] [address] Creatinine [Mass/Vol] 1.12 mg/dL Normal 0.70-1.30 [facility] ([place] Comment on above: Performed By: #### A RIVERA IBARRA, CBC, ALC, ADIFF, CMP, GFR #### [address] [address] Electrolyte Balance 14.0 mEq/L Normal 4.0-15.0 [facility] ([place]) Comment on above: Performed By: #### A RIVERA IBARRA, CBC, ALC, ADIFF, CMP, GFR #### [address] [address] Globulin 2.9 G/dL Normal [facility] ([place] Comment on above: Performed By: #### A RIVERA IBARRA, CBC, ALC, ADIFF, CMP, GFR #### [address] [address] Glucose [Mass/Vol] 99 mg/dL Normal 70-105 [facility] ([place] Comment on above: Performed By: #### A RIVERA IBARRA, CBC, ALC, ADIFF, CMP, GFR #### [place] [address] Potassium [Moles/Vol] 4.1 mmol/L Normal 3.5-5.1 [facility] ([place] Comment on above: Performed By: #### A RIVERA IBARRA, CBC, ALC, ADIFF, CMP, GFR #### [address] [address] Sodium [Moles/Vol] 143 mmol/L Normal 136-145 [facility] ([place] Comment on above: Performed By: #### A RIVERA IBARRA, CBC, ALC, ADIFF, CMP, GFR #### [address] [address] Total Protein 6.7 G/dL Normal 6.4-8.2 [facility] ([place]) Comment on above: Performed By: #### A RIVERA IBARRA, CBC, ALC, ADIFF, CMP, GFR #### [address] [address] Urea nitrogen [Mass/Vol] 9 mg/dL Normal 7-18 [facility] ([place] Comment on above: Performed By: #### A RIVERA IBARRA, CBC, ALC, ADIFF, CMP, GFR #### [address] [address] [address] HEAD OR BRAIN W/O CONTRAS Ton [...] Sign Date: 06/20/2023 3:18:15 AM Ordering Provider: [facility]) CT SPINE CERVICAL W/O CONTRA STon 06-20-2023 [...] Sign Date: 06/20/2023 3:20:14 AM Ordering Provider: [facility]) LABORATORYOrdered By: [facility] on 06-20-2023 Ammonia (P) [Moles/Vol] 15 umol/L [...] [facility] Comment on above: Interpretive Data: T pee [employer] (CHEST, 1991, 102:312S-25S) recommended therapeutic range for oral anticoagulant [...] Magnesium [Mass/Vol] 2.1 mg/dL Normal 1.8-2.4 [facility] ([place] Comment on above: Performed By: #### M G ####[address] [place], [place] [address] Magnesium [Mass/Vol] 1.7 mg/dL Low 1.8-2.4 [facility] ([place] Comment on above: Performed By: #### M G ####[address] [place], [place] [address] MRI BRAIN W/O CONTRASTon MRI BRAIN W/O [...] 4:13:50 PM Ordering Provider: ANA MARIA Robertson [facility] ([place]) PHOSon 06-20-2023 Phosphate [Mass/Vol] 2.9 mg/dL Normal 2.7-4.5 [facility] ([place]) Comment on above: Performed By: #### P HOS, PRO, AMM ####[address] [place], [place] [address] PROon 06-20-2023 PT Coag (PPP) [Time] 9.8 s Normal 9.0-14.4 [facility] ([place] Comment on above: Performed By: #### P HOS, PRO, AMM ####[address] [place] [address] PT International Ratio 0.8 Normal [facility] ([place]) Comment on above: Result Comment: [employer] (CHEST, 1992, 102:312S-25S) recommended therapeutic range for oral anticoagulant therapy is: LOW RISK: Prophylaxis of venous thrombosis INR: 2.0-3.0 Treatment of pulmonary embolism 2.0-3.0 Prevention of systemic embolism 2.0-3.0 HIGH RISK: Mechanical prosthetic valves 2.5-3.5 Performed By: #### P HOS, PRO, AMM ####[address] [address] UDRUGon 06-20-2023 Amphetamine (u) Negative Normal Negative [facility] ([place]) Comment on above: Performed By: #### U DRUG #### [place] [address] Barbiturate (u) Negative Normal Negative [facility] ([place]) Comment on above: Performed By: #### U DRUG #### [address] [address] Benzodiazepine (u) Negative Normal Negative [facility] ([place] Comment on above: Performed By: #### U DRUG #### [address] [address] Cannabinoid (u) Negative Normal Negative [facility] ([place]) Comment on above: Performed By: #### U DRUG #### [place] [id number] Cocaine Ql (U) Negative Normal Negative [facility] ([place]) Comment on above: Performed By: #### U DRUG #### [place] [id number] Methadone Ql (U) Negative Normal Negative [facility] ([place] Comment on above: Performed By: #### U DRUG #### Angel [address] [address] Opiate (u) Negative Normal Negative [facility] ([place]) Comment on above: Performed By: #### U DRUG #### Angel [address] [address] PCP (u) Negative Normal Negative [facility] ([place] Comment on above: Performed By: #### U DRUG #### Angel [address] [address] Urine Drugs screened: See Below Normal [facility] ([place] Comment on above: Result Comment: This drug [...] Performed By: #### U DRUG #### Angel [address] [address] XR CHEST 1 VIEWon 06-20-2023 XR CHEST [...] 06/20/2023 3:12:39 AM Ordering Provider: MICHAEL PADRON [facility] ([place]) Absolute lymphocyte countOrd ered By: Carmelo Mccray on 06-19-2023 Lymphocytes Auto (Unsp spec) [#/Vol] 2.47 10*3/uL 0.83-4.51 [facility] Automated lymphocyte count a s percentage of total leukocytesOrdered By: Carmelo Mccray on 06-19-2023 Lymphocytes/100 WBC Auto (Unsp spec) 28.9 % 19-41 [facility] Basophil percentageOrdered B y: Carmelo Mccray on 06-19-2023 Basophils/100 WBC (Bld) 0.9 % 0-1 [facility] [place] [facility] Chloride [Moles/Vol] 108 mmol/L 98-107 [facility] Eosinophils/100 WBC (Bld) 0.6 % 0-5 [facility] Glucose [Mass/Vol] 84 mg/dL 74-106 [facility] Hemoglobin (Bld) [Mass/Vol] 14.8 g/dL 13.0-16.5 [facility] Monocytes/100 WBC (Bld) 8.4 % 0-10 [facility] [place] [facility] Neutrophils (Bld) [#/Vol] 5.2 10*3/uL 2.0-7.7 [facility] Neutrophils/100 WBC (Bld) 60.8 % 47-70 [facility] Potassium [Moles/Vol] 3.7 mmol/L 3.5-5.1 [facility] Sodium [Moles/Vol] 140 mmol/L 136-145 [facility] WBC (Bld) [#/Vol] 8.6 10*3/uL 4.4-11.0 [facility] Determination of erythrocyte mean corpuscular volume (MCV)Ordered By: Carmelo Mccray on 06-19-2023 MCV (RBC) [Entitic vol] 95.8 fL 80-94 [facility] [place] [facility] Erythrocyte distribution wid th ratioOrdered By: Carmelo Mccray on 06-19-2023 Erythrocyte distribution width (RBC) [Ratio] 12.0 % 11.6-14.6 [facility] Erythrocyte distribution wid th standard deviationOrdered By: Carmelo Mccray on 06-19-2023 Erythrocyte distribution width (RBC) [Entitic vol] 41.5 fL 35.1-43.9 [facility] Hematocrit Auto (Bld) [Volum e fraction]Ordered By: Carmelo Mccray on 06-19-2023 Hematocrit (Bld) [Volume fraction] 42.9 % 40-54 [facility] Immature granulocytes/100 WB C Auto (Bld)Ordered By: Carmelo Mccray on 06-19-2023 Immature granulocytes/100 WBC (Bld) 0.400 % 0.0-0.9 [facility] Comment on above: IG% - Immature Granu locytes (promyelocytes, myelocytes and metamyelocytes) > 1% indicates that a LEFT SHIFT is Present. Laboratory - Chemistry and C hemistry - challengeOrdered By: Carmelo Mccray on 06-19-2023 CO2 [Moles/Vol] 27.0 mmol/L 21.0-32.0 [facility] Urea nitrogen/Creatinine [Mass ratio] 10.0 mg/mg 10-20 [facility] Laboratory - Hematology and Cell countsOrdered By: Carmelo Mccray on 06-19-2023 MCH (RBC) [Entitic mass] 33.0 pg 27.0-32.0 [facility] MCHC (RBC) [Mass/Vol] 34.5 g/dL 32-36 [facility] Nucleated RBC/100 WBC (Bld) [Ratio] 0 % 0-5 [facility] Platelet mean volume (Bld) [Entitic vol] 9.6 fL 6.2-12.0 [facility] Platelets (Bld) [#/Vol] 263 10*3/uL 150-450 [facility] Laboratory - Microbiology an d Antimicrobial susceptibilityOrdered By: Carmelo Mccray on 06-19-2023 SARS-CoV-2 (COVID-19) RNA DOMINIC+probe Ql (Unsp spec) [facility] No Panel InformationOrdered By: Carmelo Mccray on 06-19-2023 Estimated Creatinine Clearance Calc 145.96 ml/min [facility] Estimated GFR (MDRD) Amer 131 mL/min >60 [facility] Comment on above: GFR Calc Estimated GFR (MDRD) Non-Af Amer 108 mL/min >60 [facility] Comment on above: Non- GFR Calc Troponin I High Sensitivity 10 pg/mL 3.0-78.0 [facility] Comment on above: Please Note: New Rhea t Units and Gender Specific Reference Ranges. For more information see Policy Stat Procedure [place] High Sensitivity Troponin (TNIH) and attachments. RBC Auto (Bld) [#/Vol]Ordere d By: Carmelo Mccray on 06-19-2023 RBC (Bld) [#/Vol] 4.48 10*6/uL 4.6-6.2 [facility] [place] Serum or plasma calcium gaetano urement (mass/volume)Ordered By: Carmelo Mccray on 06-19-2023 Calcium [Mass/Vol] 8.9 mg/dL 8.5-10.1 [facility] Serum or plasma creatinine m easurement (mass/volume)Ordered By: Carmelo Mccray on 06-19-2023 Creatinine [Mass/Vol] 0.90 mg/dL 0.70-1.30 [facility] Comment on above: The validity of the calculated GFR & GFRAA in patients over 70 years has not been determined. Clinical correlation is essential. Serum or plasma urea nitroge n measurement (mass/volume)Ordered By: Carmelo Mccray on 06-19-2023 Urea nitrogen [Mass/Vol] 9 mg/dL 7-18 [facility] Thin prep Papanicolaou smear with manual screeningOrdered By: Carmelo Mccray on 06-19-2023 Thin prep Papanicolaou smear with manual screening 5 5-15 [facility] Absolute lymphocyte countOrd ered By: Marcio Cardona on 05-01-2023 Lymphocytes Auto (Unsp spec) [#/Vol] 4.15 10*3/uL 0.83-4.51 [facility] Automated lymphocyte count a s percentage of total leukocytesOrdered By: Marcio Cardona on 05-01-2023 Lymphocytes/100 WBC Auto (Unsp spec) 41.9 % 19-41 [facility] Basophil percentageOrdered B y: Jacquie White on 05-01-2023 Basophil percentage 3.4 mg/dL 2.5-4.9 [facility] [place] Basophil percentageOrdered B y: Marcio Cardona on 05-01-2023 Basophils/100 WBC (Bld) 1.2 % 0-1 [facility] Bilirubin [Mass/Vol] 0.60 mg/dL 0.20-1.00 [facility] Comment on above: For patients on eltr ombopag therapy, use of Dimension [place] TBIL is not recommended. Chloride [Moles/Vol] 107 mmol/L 98-107 [facility] Eosinophils/100 WBC (Bld) 0.3 % 0-5 [facility] Glucose [Mass/Vol] 130 mg/dL 74-106 [facility] Comment on above: Fasting Glucose resu lt greater than or equal to 126 mg/dL suggests DIABETES MELLITUS per A.D.A. criteria. Hemoglobin (Bld) [Mass/Vol] 18.1 g/dL 13.0-16.5 [facility] Comment on above: CRITICAL VALUE VERIF IED. CALLED TO Lynn HAMPTON05/01/23 0559 [address].RESULTS READ BACK BY SAME. Monocytes/100 WBC (Bld) 6.5 % 0-10 [facility] Neutrophils (Bld) [#/Vol] 4.9 10*3/uL 2.0-7.7 [facility] Neutrophils/100 WBC (Bld) 49.6 % 47-70 [facility] Potassium [Moles/Vol] 3.8 mmol/L 3.5-5.1 [facility] Protein [Mass/Vol] 7.8 g/dL 6.4-8.2 [facility] Sodium [Moles/Vol] 143 mmol/L 136-145 [facility] WBC (Bld) [#/Vol] 9.9 10*3/uL 4.4-11.0 [facility] Blood manual differential co mment interpretation (narrative result)Ordered By: Marcio Cardona on 05-01-2023 Manual differential comment Isacc (Bld) [Interp] SCANNED [facility] Determination of erythrocyte mean corpuscular volume (MCV)Ordered By: Marcio Cardona on 05-01-2023 MCV (RBC) [Entitic vol] 93.3 fL 80-94 [facility] Erythrocyte distribution wid th ratioOrdered By: Marcio Cardona on 05-01-2023 Erythrocyte distribution width (RBC) [Ratio] 12.8 % 11.6-14.6 [facility] Erythrocyte distribution wid th standard deviationOrdered By: Marcio Cardona on 05-01-2023 Erythrocyte distribution width (RBC) [Entitic vol] 44.0 fL 35.1-43.9 [facility] Hematocrit Auto (Bld) [Volum e fraction]Ordered By: Marcio Cardona on 05-01-2023 Hematocrit (Bld) [Volume fraction] 51.3 % 40-54 [facility] Immature granulocytes/100 WB C Auto (Bld)Ordered By: Marcio Cardona on 05-01-2023 Immature granulocytes/100 WBC (Bld) 0.500 % 0.0-0.9 [facility] Comment on above: IG% - Immature Granu locytes (promyelocytes, myelocytes and metamyelocytes) > 1% indicates that a LEFT SHIFT is Present. Laboratory - Chemistry and C hemistry - challengeOrdered By: Marcio Cardona on 05-01-2023 Albumin/Globulin [Mass ratio] 1.1 {ratio} 0.9-2.4 [facility] ALP [Catalytic activity/Vol] 92 U/L 45-117 [facility] ALT [Catalytic activity/Vol] 49 U/L 16-61 [facility] CO2 [Moles/Vol] 26.0 mmol/L 21.0-32.0 [facility] Globulin (S) [Mass/Vol] 3.7 g/dL 2.2-4.2 [facility] Urea nitrogen/Creatinine [Mass ratio] 6.4 mg/mg 10-20 [facility] Laboratory - Chemistry and C hemistry - challengeOrdered By: Jacquie Beckwith on 05-01-2023 Magnesium [Mass/Vol] 2.1 mg/dL 1.6-2.6 [facility] Laboratory - CoagulationOrde red By: Marcio Cardona on 05-01-2023 INR Coag (Bld) [Relative time] 1.0 {INR} [facility] PT Coag (PPP) [Time] 13.5 s 11.7-14.9 [facility] Laboratory - Drug toxicology Ordered By: Marcio Cardona on 05-01-2023 Amphetamines Ql (U) Negative <1000 ng/mL [facility] Benzodiazepines Ql (U) Negative < 200 ng/mL [facility] Cannabinoids Screen Ql (U) Negative < 50 ng/mL [facility] Cocaine Ql (U) Negative < 300 ng/mL [facility] Opiates Ql (U) Negative < 300 ng/mL [facility] Laboratory - Hematology and Cell countsOrdered By: Marcio Cardona on 05-01-2023 MCH (RBC) [Entitic mass] 32.9 pg 27.0-32.0 [facility] MCHC (RBC) [Mass/Vol] 35.3 g/dL 32-36 [facility] Nucleated RBC/100 WBC (Bld) [Ratio] 0 % 0-5 [facility] Platelet mean volume (Bld) [Entitic vol] 9.1 fL 6.2-12.0 [facility] Platelets (Bld) [#/Vol] 371 10*3/uL 150-450 [facility] No Panel InformationOrdered By: Marcio Cardona on 05-01-2023 Estimated GFR (MDRD) Amer 125 mL/min >60 [facility] Comment on above: GFR Calc Estimated GFR (MDRD) Non-Af Amer 103 mL/min >60 [facility] Comment on above: Non- GFR Calc Ethyl Alcohol Level 208.0 mg/dL [facility] Comment on above: The serum:whole bloo d ethanol ratio is approximately 1.14and varies slightly with hematocrit. Medical Alcohol reference interval and critical value innon-tolerant individuals; 50 - 100 Impairment 100 Intoxication 100 - 250 Severe Poisoning 250 - 400 Deep/possible fatal coma MDMA (Ecstasy) Screen Negative < 500 ng/mL [facility] Urine Barbiturates Screen Negative < 200 ng/mL [facility] Urine Drug Screen Comment [facility] Comment on above: CONFIRMATORY TESTING FOR [...] Methadone Screen Negative < 300 ng/mL [facility] RBC Auto (Bld) [#/Vol]Ordere d By: Marcio Cardona on 05-01-2023 RBC (Bld) [#/Vol] 5.50 10*6/uL 4.6-6.2 [facility] Review by pathologistOrdered By: Marcio Cardona on 05-01-2023 Pathologist review Isacc (Unsp spec) [Interp] Cheryl holland [facility] Pathologist review Isacc (Unsp spec) [Interp] Reviewed [facility] Comment on above: Previous reported re sult: Cheryl holland Edited by: МАРИНА on 05/02/23:0932PolycythemiaClinical correlation necessary.Mahesh Sharma M.D. 05/02/23 AMENDED REPORT 05/02/23 0932 PATH REV previously reported as: Cheryl holland Serum or plasma calcium gaetano urement (mass/volume)Ordered By: Marcio Cardona on 05-01-2023 Calcium [Mass/Vol] 8.6 mg/dL 8.5-10.1 [facility] Serum or plasma creatinine m easurement (mass/volume)Ordered By: Marcio Cardona on 05-01-2023 Creatinine [Mass/Vol] 0.94 mg/dL 0.70-1.30 [facility] Comment on above: The validity of the calculated GFR & GFRAA in patients over 70 years has not been determined. Clinical correlation is essential. Serum or plasma urea nitroge n measurement (mass/volume)Ordered By: Marcio Cardona on 05-01-2023 Urea nitrogen [Mass/Vol] 6 mg/dL 7-18 [facility] Thin prep Papanicolaou smear with manual screeningOrdered By: Marcio Cardona on 05-01-2023 Thin prep Papanicolaou smear with manual screening 4.1 g/dL 3.2-5.0 [facility] Thin prep Papanicolaou smear with manual screening 31 U/L 15-37 [facility] Thin prep Papanicolaou smear with manual screening 10 5-15 [facility] Urine phencyclidine (PCP) de tectionOrdered By: Marcio Cardona on 05-01-2023 Phencyclidine Ql (U) Negative < 25 ng/mL [facility] Basophil percentageOrdered B y: Jacquie Beckwith on 03-23-2023 Basophil percentage 2.9 mg/dL 2.5-4.9 [facility] Laboratory - Chemistry and C hemistry - challengeOrdered By: Jacquie Beckwith on 03-23-2023 Magnesium [Mass/Vol] 2.0 mg/dL 1.6-2.6 [facility] Laboratory - CoagulationOrde red By: Stan Thomas on 03-23-2023 INR Coag (Bld) [Relative time] 0.9 {INR} [facility] PT Coag (PPP) [Time] 12.2 s 11.7-14.9 [facility] Absolute lymphocyte countOrd ered By: Daquan Reid on 03-22-2023 Lymphocytes Auto (Unsp spec) [#/Vol] 3.11 10*3/uL 0.83-4.51 [facility] Automated lymphocyte count a s percentage of total leukocytesOrdered By: Daquan Reid on 03-22-2023 Lymphocytes/100 WBC Auto (Unsp spec) 34.2 % 19-41 [facility] Basophil percentageOrdered B y: Daquan Reid on 03-22-2023 Basophils/100 WBC (Bld) 0.8 % 0-1 [facility] Bilirubin [Mass/Vol] 0.70 mg/dL 0.20-1.00 [facility] Comment on above: For patients on eltr ombopag therapy, use of Dimension [place] TBIL is not recommended. Chloride [Moles/Vol] 108 mmol/L 98-107 [facility] Eosinophils/100 WBC (Bld) 0.1 % 0-5 [facility] Glucose [Mass/Vol] 117 mg/dL 74-106 [facility] Comment on above: Fasting Glucose resu lt from 100 to 125 mg/dL suggests IMPAIRED HOMEOSTASIS per A.D.A. criteria. Hemoglobin (Bld) [Mass/Vol] 16.8 g/dL 13.0-16.5 [facility] Monocytes/100 WBC (Bld) 6.3 % 0-10 [facility] Neutrophils (Bld) [#/Vol] 5.3 10*3/uL 2.0-7.7 [facility] Neutrophils/100 WBC (Bld) 58.3 % 47-70 [facility] Potassium [Moles/Vol] 4.0 mmol/L 3.5-5.1 [facility] Protein [Mass/Vol] 8.1 g/dL 6.4-8.2 [facility] Sodium [Moles/Vol] 140 mmol/L 136-145 [facility] WBC (Bld) [#/Vol] 9.1 10*3/uL 4.4-11.0 [facility] Determination of erythrocyte mean corpuscular volume (MCV)Ordered By: Daquan Reid on 03-22-2023 MCV (RBC) [Entitic vol] 88.6 fL 80-94 [facility] Erythrocyte distribution wid th ratioOrdered By: Daquan Reid on 03-22-2023 Erythrocyte distribution width (RBC) [Ratio] 12.4 % 11.6-14.6 [facility] Erythrocyte distribution wid th standard deviationOrdered By: Daquan Reid on 03-22-2023 Erythrocyte distribution width (RBC) [Entitic vol] 40.2 fL 35.1-43.9 [facility] Hematocrit Auto (Bld) [Volum e fraction]Ordered By: Daquan Reid on 03-22-2023 Hematocrit (Bld) [Volume fraction] 46.8 % 40-54 [facility] Immature granulocytes/100 WB C Auto (Bld)Ordered By: Daquan Reid on 03-22-2023 Immature granulocytes/100 WBC (Bld) 0.300 % 0.0-0.9 [facility] Comment on above: IG% - Immature Granu locytes (promyelocytes, myelocytes and metamyelocytes) > 1% indicates that a LEFT SHIFT is Present. Laboratory - Chemistry and C hemistry - challengeOrdered By: Daquan Reid on 03-22-2023 Albumin/Globulin [Mass ratio] 1.2 {ratio} 0.9-2.4 [facility] ALP [Catalytic activity/Vol] 105 U/L 45-117 [facility] ALT [Catalytic activity/Vol] 27 U/L 16-61 [facility] CO2 [Moles/Vol] 25.0 mmol/L 21.0-32.0 [facility] Globulin (S) [Mass/Vol] 3.7 g/dL 2.2-4.2 [facility] Urea nitrogen/Creatinine [Mass ratio] 8.1 mg/mg 10-20 [facility] Laboratory - Chemistry and C hemistry - challengeOrdered By: Stan Thomas on 03-22-2023 Amylase [Catalytic activity/Vol] 34 U/L 15- [facility] Laboratory - Drug toxicology Ordered By: Daquan Reid on 03-22-2023 Amphetamines Ql (U) Negative <1000 ng/mL [facility] Benzodiazepines Ql (U) Negative < 200 ng/mL [facility] Cannabinoids Screen Ql (U) Negative < 50 ng/mL [facility] Cocaine Ql (U) Negative < 300 ng/mL [facility] Opiates Ql (U) Negative < 300 ng/mL [facility] Laboratory - Hematology and Cell countsOrdered By: Daquan Reid on 03-22-2023 MCH (RBC) [Entitic mass] 31.8 pg 27.0-32.0 [facility] MCHC (RBC) [Mass/Vol] 35.9 g/dL 32-36 [facility] Nucleated RBC/100 WBC (Bld) [Ratio] 0 % 0-5 [facility] Platelet mean volume (Bld) [Entitic vol] 9.2 fL 6.2-12.0 [facility] Platelets (Bld) [#/Vol] 367 10*3/uL 150-450 [facility] No Panel InformationOrdered By: Daquan Reid on 03-22-2023 Estimated Creatinine Clearance Calc 138.63 ml/min [facility] Estimated GFR (MDRD) Amer 137 mL/min >60 [facility] Comment on above: GFR Calc Estimated GFR (MDRD) Non-Af Amer 113 mL/min >60 [facility] Comment on above: Non- GFR Calc Ethyl Alcohol Level 212.0 mg/dL [facility] Comment on above: The serum:whole bloo d ethanol ratio is approximately 1.14and varies slightly with hematocrit. Medical Alcohol reference interval and critical value innon-tolerant individuals; 50 - 100 Impairment 100 Intoxication 100 - 250 Severe Poisoning 250 - 400 Deep/possible fatal coma MDMA (Ecstasy) Screen Negative < 500 ng/mL [facility] Urine Barbiturates Screen Negative < 200 ng/mL [facility] Urine Drug Screen Comment See comment [facility] Comment on above: CONFIRMATORY TESTING FOR [...] UTCAPrevious reported result: Edited by: QI on 03/22/23:5098 AMENDED REPORT 03/22/232326 TO BE CONFIRMED previously [...] Methadone Screen Negative < 300 ng/mL [facility] RBC Auto (Bld) [#/Vol]Ordere d By: Daquan Reid on 03-22-2023 RBC (Bld) [#/Vol] 5.28 10*6/uL 4.6-6.2 [facility] Serum or plasma calcium gaetano urement (mass/volume)Ordered By: Daquan Reid on 03-22-2023 Calcium [Mass/Vol] 9.1 mg/dL 8.5-10.1 [facility] Serum or plasma creatinine m easurement (mass/volume)Ordered By: Daquan Reid on 03-22-2023 Creatinine [Mass/Vol] 0.86 mg/dL 0.70-1.30 [facility] Comment on above: The validity of the calculated GFR & GFRAA in patients over 70 years has not been determined. Clinical correlation is essential. Serum or plasma urea nitroge n measurement (mass/volume)Ordered By: Daquan Reid on 03-22-2023 Urea nitrogen [Mass/Vol] 7 mg/dL 7-18 [facility] Thin prep Papanicolaou smear with manual screeningOrdered By: Daquan Reid on 03-22-2023 Thin prep Papanicolaou smear with manual screening 4.4 g/dL 3.2-5.0 [facility] Thin prep Papanicolaou smear with manual screening 18 U/L 15-37 [facility] Thin prep Papanicolaou smear with manual screening 7 5-15 [facility] Urine phencyclidine (PCP) de tectionOrdered By: Daquan Reid on 03-22-2023 Phencyclidine Ql (U) Negative < 25 ng/mL [facility] Absolute lymphocyte countOrd ered By: Cadence Cornelius on 08-05-2022 Lymphocytes Auto (Unsp spec) [#/Vol] 2.36 10*3/uL 0.83-4.51 [facility] Basophil percentageOrdered B y: Cadence Cornelius on 08-05-2022 Basophils/100 WBC (Bld) 1.0 % 0-1 [facility] Bilirubin [Mass/Vol] 0.70 mg/dL 0.20-1.00 [facility] Comment on above: For patients on eltr ombopag therapy, use of Dimension [place] TBIL is not recommended. Chloride [Moles/Vol] 109 mmol/L 98-107 [facility] Eosinophils/100 WBC (Bld) 0.3 % 0-5 [facility] Glucose [Mass/Vol] 116 mg/dL 74-106 [facility] Comment on above: Fasting Glucose resu lt from 100 to 125 mg/dL suggests IMPAIRED HOMEOSTASIS per A.D.A. criteria. Neutrophils (Bld) [#/Vol] 4.0 10*3/uL 2.0-7.7 [facility] Neutrophils/100 WBC (Bld) 56.8 % 47-70 [facility] Potassium [Moles/Vol] 4.0 mmol/L 3.5-5.1 [facility] Protein [Mass/Vol] 6.4 g/dL 6.4-8.2 [facility] Sodium [Moles/Vol] 143 mmol/L 136-145 [facility] WBC (Bld) [#/Vol] 7.1 10*3/uL 4.4-11.0 [facility] Blood erythrocytes count (nu mber/volume)Ordered By: Cadence Cornelius on 08-05-2022 RBC (Bld) [#/Vol] 4.56 10*6/uL 4.6-6.2 [facility] [place] Blood hemoglobin measurement (mass/volume)Ordered By: Cadence Cornelius on 08-05-2022 Hemoglobin (Bld) [Mass/Vol] 14.6 g/dL 13.0-16.5 [facility] Blood lymphocytes/100 leukoc ytesOrdered By: Cadence Corneluis on 08-05-2022 Lymphocytes/100 WBC (Bld) 33.2 % 19-41 [facility] Blood monocytes/100 leukocyt esOrdered By: Cadence Cornelius on 08-05-2022 Monocytes/100 WBC (Bld) 8.3 % 0-10 [facility] Blood platelet mean volumeOr dered By: Cadence Cornelius on 08-05-2022 Platelet mean volume (Bld) [Entitic vol] 9.1 fL 6.2-12.0 [facility] Determination of erythrocyte mean corpuscular volume (MCV)Ordered By: Cadence Cornelius on 08-05-2022 MCV (RBC) [Entitic vol] 90.6 fL 80-94 [facility] Direct bilirubinOrdered By: Cadence Cornelius on 08-05-2022 Bilirubin.direct [Mass/Vol] 0.19 mg/dL 0.00-0.30 [facility] Hematocrit Auto (Bld) [Volum e fraction]Ordered By: Cadence Cornelius on 08-05-2022 Hematocrit (Bld) [Volume fraction] 41.3 % 40-54 [facility] Laboratory - Chemistry and C hemistry - challengeOrdered By: Cadence Cornelius on 08-05-2022 ALP [Catalytic activity/Vol] 73 U/L 45-117 [facility] ALT [Catalytic activity/Vol] 24 U/L 16-61 [facility] CO2 [Moles/Vol] 28.0 mmol/L 21.0-32.0 [facility] Globulin (S) [Mass/Vol] 2.9 g/dL 2.2-4.2 [facility] Urea nitrogen/Creatinine [Mass ratio] 10.0 mg/mg 10-20 [facility] Laboratory - Drug toxicology Ordered By: Cadence Cornelius on 08-05-2022 Amphetamines Ql (U) Negative <1000 ng/mL [facility] Benzodiazepines Ql (U) Negative < 200 ng/mL [facility] Cannabinoids Screen Ql (U) Negative < 50 ng/mL [facility] Cocaine Ql (U) Positive < 300 ng/mL [facility] Opiates Ql (U) Negative < 300 ng/mL [facility] Laboratory - Hematology and Cell countsOrdered By: Cadence Cornelius on 08-05-2022 Erythrocyte distribution width (RBC) [Entitic vol] 38.1 fL 35.1-43.9 [facility] Erythrocyte distribution width (RBC) [Ratio] 11.6 % 11.6-14.6 [facility] Immature granulocytes/100 WBC (Bld) 0.400 % 0.0-0.9 [facility] Comment on above: IG% - Immature Granu locytes (promyelocytes, myelocytes and metamyelocytes) > 1% indicates that a LEFT SHIFT is Present. MCH (RBC) [Entitic mass] 32.0 pg 27.0-32.0 [facility] Nucleated RBC/100 WBC (Bld) [Ratio] 0 % 0-5 [facility] MCHC Auto (RBC) [Mass/Vol]Or dered By: Cadence Cornelius on 08-05-2022 MCHC (RBC) [Mass/Vol] 35.4 g/dL 32-36 [facility] No Panel InformationOrdered By: Cadence Cornelius on 08-05-2022 MDMA (Ecstasy) Screen Negative < 500 ng/mL [facility] Urine Barbiturates Screen Negative < 200 ng/mL [facility] Urine Drug Screen Comment [facility] Comment on above: CONFIRMATORY TESTING FOR [...] Methadone Screen Negative < 300 ng/mL [facility] Estimated Creatinine Clearance Calc 150.34 ml/min [facility] Estimated GFR (MDRD) Amer 151 mL/min >60 [facility] Comment on above: GFR Calc Estimated GFR (MDRD) Non-Af Amer 125 mL/min >60 [facility] Comment on above: Non- GFR Calc Ethyl Alcohol Level 219.0 mg/dL [facility] Comment on above: The serum:whole bloo d ethanol ratio is approximately 1.14and varies slightly with hematocrit. Medical Alcohol reference interval and critical value innon-tolerant individuals; 50 - 100 Impairment 100 Intoxication 100 - 250 Severe Poisoning 250 - 400 Deep/possible fatal coma Platelets bldOrdered By: Geraldine Cornelius on 08-05-2022 Platelets (Bld) [#/Vol] 249 10*3/uL 150-450 [facility] Serum or plasma albumin gaetano urement (mass/volume)Ordered By: Cadence Cornelius on 08-05-2022 Albumin [Mass/Vol] 3.5 g/dL 3.2-5.0 [facility] Serum or plasma calcium gaetano urement (mass/volume)Ordered By: Cadence Cornelius on 08-05-2022 Calcium [Mass/Vol] 8.2 mg/dL 8.5-10.1 [facility] Serum or plasma creatinine m easurement (mass/volume)Ordered By: Cadence Cornelius on 08-05-2022 Creatinine [Mass/Vol] 0.80 mg/dL 0.70-1.30 [facility] Comment on above: The validity of the calculated GFR & GFRAA in patients over 70 years has not been determined. Clinical correlation is essential. Serum or plasma urea nitroge n measurement (mass/volume)Ordered By: Cadence Cornelius on 08-05-2022 Urea nitrogen [Mass/Vol] 8 mg/dL 7-18 [facility] Thin prep Papanicolaou smear with manual screeningOrdered By: Cadence Cornelius on 08-05-2022 Thin prep Papanicolaou smear with manual screening 17 U/L 15-37 [facility] Thin prep Papanicolaou smear with manual screening 6 5-15 [facility] Urine phencyclidine (PCP) de tectionOrdered By: Cadence Cornelius on 08-05-2022 Phencyclidine Ql (U) Negative < 25 ng/mL [facility] Vital Signs Date Time Vital Sign Value Performing Clinician Facility 10-19-2024 15:33-0400 Body temperature 98.4 [degF] No Primary Care Physician [facility] 10-19-2024 15:33-0400 Diastolic blood pressure 59 mm[Hg] No Primary Care Physician [facility] 10-19-2024 15:33-0400 Heart rate 76 /min No Primary Care Physician [facility] 10-19-2024 15:33-0400 Respiratory rate 16 /min No Primary Care Physician [facility] 10-19-2024 15:33-0400 SaO2% (BldA) [Mass fraction] 98 % No Primary Care Physician [facility] 10-19-2024 15:33-0400 Systolic blood pressure 116 mm[Hg] No Primary Care Physician [facility] 10-19-2024 13:48-0400 Body height 180.34 cm No Primary Care Physician [facility] 10-19-2024 13:48-0400 Body weight 77.11 kg No Primary Care Physician [facility] 10-18-2024 19:47-0400 Body mass index (BMI) [Ratio] 23.7 kg/m2 No Primary Care Physician [facility] 10-18-2024 18:23-0400 Body temperature 98.9 [degF] No Primary Care Physician [facility] 10-18-2024 18:23-0400 Diastolic blood pressure 68 mm[Hg] No Primary Care Physician [facility] 10-18-2024 18:23-0400 Heart rate 90 /min No Primary Care Physician [facility] 10-18-2024 18:23-0400 Respiratory rate 16 /min No Primary Care Physician [facility] 10-18-2024 18:23-0400 SaO2% (BldA) [Mass fraction] 100 % No Primary Care Physician [facility] 10-18-2024 18:23-0400 Systolic blood pressure 123 mm[Hg] No Primary Care Physician [facility] 10-18-2024 15:58-0400 Body height 180.34 cm No Primary Care Physician [facility] 10-18-2024 15:58-0400 Body mass index (BMI) [Ratio] 23.7 kg/m2 No Primary Care Physician [facility] 10-18-2024 15:58-0400 Body weight 77.24 kg No Primary Care Physician [facility] 10-18-2024 15:50-0400 Body temperature 98.4 [degF] No Primary Care Physician [facility] 10-18-2024 15:50-0400 Diastolic blood pressure 63 mm[Hg] No Primary Care Physician [facility] 10-18-2024 15:50-0400 Heart rate 112 /min No Primary Care Physician [facility] 10-18-2024 15:50-0400 Respiratory rate 18 /min No Primary Care Physician [facility] 10-18-2024 15:50-0400 SaO2% (BldA) [Mass fraction] 97 % No Primary Care Physician [facility] 10-18-2024 15:50-0400 Systolic blood pressure 122 mm[Hg] No Primary Care Physician [facility] 10-18-2024 15:03-0400 Body height 180.34 cm No Primary Care Physician [facility] 10-18-2024 15:03-0400 Body mass index (BMI) [Ratio] 24 kg/m2 No Primary Care Physician [facility] 10-18-2024 15:03-0400 Body weight 78.2 kg No Primary Care Physician [facility] 10-14-2024 12:55-0400 Respiratory rate 16 /min Kristian Parekh MD Work Phone: [facility] 10-14-2024 12:43-0400 Body temperature 97.81 [degF] Kristian Parekh MD Work Phone: [facility] 10-14-2024 12:43-0400 Diastolic blood pressure 76 mm[Hg] Kristian Parekh MD Work Phone: [facility] 10-14-2024 12:43-0400 Heart rate 72 /min Kristian Parekh MD Work Phone: [facility] 10-14-2024 12:43-0400 SaO2% (BldA) [Mass fraction] 96 % Kristian Parekh MD Work Phone: [facility] 10-14-2024 12:43-0400 Systolic blood pressure 121 mm[Hg] Kristian Parekh MD Work Phone: [facility] 10-12-2024 23:15-0400 Body height 180.3 cm Kristian Parekh MD Work Phone: [facility] 10-12-2024 23:15-0400 Body mass index (BMI) [Ratio] 24.13 kg/m2 Kristian Parekh MD Work Phone: [facility] 10-12-2024 23:15-0400 Body weight 78.47 kg Kristian Parekh MD Work Phone: [facility] 10-11-2024 15:13-0400 Respiratory rate 16 /min [facility] 10-11-2024 14:29-0400 Body temperature 98.01 [degF] [facility] 10-11-2024 14:29-0400 Diastolic blood pressure 76 mm[Hg] [facility] 10-11-2024 14:29-0400 Heart rate 77 /min [facility] 10-11-2024 14:29-0400 SaO2% (BldA) [Mass fraction] 97 % [facility] 10-11-2024 14:29-0400 Systolic blood pressure 124 mm[Hg] [facility] 10-08-2024 00:54-0400 Body height 180.3 cm [facility] 10-08-2024 00:54-0400 Body mass index (BMI) [Ratio] 24.41 kg/m2 [facility] 10-08-2024 00:54-0400 Body weight 79.38 kg [facility] 10-05-2024 13:15-0400 Respiratory rate 16 /min [facility] 10-05-2024 11:25-0400 Diastolic blood pressure 76 mm[Hg] [facility] 10-05-2024 11:25-0400 Heart rate 107 /min [facility] 10-05-2024 11:25-0400 SaO2% (BldA) [Mass fraction] 98 % [facility] 10-05-2024 11:25-0400 Systolic blood pressure 124 mm[Hg] [facility] 10-05-2024 11:00-0400 Body temperature 100.9 [degF] [facility] 10-05-2024 04:00-0400 Body height 180.3 cm [facility] 10-05-2024 04:00-0400 Body mass index (BMI) [Ratio] 23.98 kg/m2 [facility] 10-05-2024 04:00-0400 Body weight 78 kg [facility] 10-04-2024 11:56-0400 Respiratory rate 16 /min [facility] 10-04-2024 11:23-0400 Body temperature 98.01 [degF] [facility] 10-04-2024 11:23-0400 Diastolic blood pressure 70 mm[Hg] [facility] 10-04-2024 11:23-0400 Heart rate 110 /min [facility] 10-04-2024 11:23-0400 SaO2% (BldA) [Mass fraction] 96 % [facility] 10-04-2024 11:23-0400 Systolic blood pressure 150 mm[Hg] [facility] 10-04-2024 07:15-0400 Body height 180.3 cm [facility] 10-04-2024 07:15-0400 Body mass index (BMI) [Ratio] 24.27 kg/m2 [facility] 10-04-2024 07:15-0400 Body weight 78.93 kg [facility] 10-02-2024 08:18-0400 Body temperature 97.9 [degF] No Primary Care Physician [facility] 10-02-2024 08:18-0400 Diastolic blood pressure 78 mm[Hg] No Primary Care Physician [facility] 10-02-2024 08:18-0400 Heart rate 97 /min No Primary Care Physician [facility] 10-02-2024 08:18-0400 Respiratory rate 16 /min No Primary Care Physician [facility] 10-02-2024 08:18-0400 SaO2% (BldA) [Mass fraction] 98 % No Primary Care Physician [facility] 10-02-2024 08:18-0400 Systolic blood pressure 132 mm[Hg] No Primary Care Physician [facility] 10-02-2024 04:55-0400 Body height 180.34 cm No Primary Care Physician [facility] 10-02-2024 04:55-0400 Body mass index (BMI) [Ratio] 25.4 kg/m2 No Primary Care Physician [facility] 10-02-2024 04:55-0400 Body weight 83 kg No Primary Care Physician [facility] 10-02-2024 04:06-0400 Body height 180.34 cm No Primary Care Physician [facility] 10-02-2024 04:06-0400 Body mass index (BMI) [Ratio] 25.4 kg/m2 No Primary Care Physician [facility] 10-02-2024 04:06-0400 Body temperature 98.4 [degF] No Primary Care Physician [facility] 10-02-2024 04:06-0400 Body weight 83 kg No Primary Care Physician [facility] 10-02-2024 04:06-0400 Diastolic blood pressure 92 mm[Hg] No Primary Care Physician [facility] 10-02-2024 04:06-0400 Heart rate 97 /min No Primary Care Physician [facility] 10-02-2024 04:06-0400 Respiratory rate 18 /min No Primary Care Physician [facility] 10-02-2024 04:06-0400 SaO2% (BldA) [Mass fraction] 99 % No Primary Care Physician [facility] 10-02-2024 04:06-0400 Systolic blood pressure 144 mm[Hg] No Primary Care Physician [facility] 10-01-2024 14:00-0400 Body temperature 97.6 [degF] No Primary Care Physician [facility] 10-01-2024 14:00-0400 Diastolic blood pressure 73 mm[Hg] No Primary Care Physician [facility] 10-01-2024 14:00-0400 Heart rate 54 /min No Primary Care Physician [facility] 10-01-2024 14:00-0400 Respiratory rate 12 /min No Primary Care Physician [facility] 10-01-2024 14:00-0400 SaO2% (BldA) [Mass fraction] 98 % No Primary Care Physician [facility] 10-01-2024 14:00-0400 Systolic blood pressure 131 mm[Hg] No Primary Care Physician [facility] 10-01-2024 10:00-0400 Inhaled oxygen flow rate 99 L/min No Primary Care Physician [facility] 10-01-2024 01:52-0400 Body height 180.34 cm No Primary Care Physician [facility] 10-01-2024 01:52-0400 Body mass index (BMI) [Ratio] 25.7 kg/m2 No Primary Care Physician [facility] 10-01-2024 01:52-0400 Body weight 83.46 kg No Primary Care Physician [facility] 06-11-2024 07:27-0400 Diastolic blood pressure 83 mm[Hg] [facility] 06-11-2024 07:27-0400 Heart rate 80 /min [facility] 06-11-2024 07:27-0400 Respiratory rate 18 /min [facility] 06-11-2024 07:27-0400 SaO2% (BldA) [Mass fraction] 98 % [facility] 06-11-2024 07:27-0400 Systolic blood pressure 126 mm[Hg] [facility] 06-11-2024 04:18-0400 Body temperature 97.3 [degF] [facility] 06-11-2024 04:14-0400 Body height 180.3 cm [facility] 06-11-2024 04:14-0400 Body mass index (BMI) [Ratio] 24.55 kg/m2 [facility] 06-11-2024 04:14-0400 Body weight 79.83 kg [facility] 06-10-2024 22:29-0400 Body height 180.3 cm [facility] 06-10-2024 22:29-0400 Body mass index (BMI) [Ratio] 24.55 kg/m2 [facility] 06-10-2024 22:29-0400 Body weight 79.83 kg [facility] 06-10-2024 22:26-0400 Body temperature 96.3 [degF] [facility] 06-10-2024 22:26-0400 Diastolic blood pressure 96 mm[Hg] [facility] 06-10-2024 22:26-0400 Heart rate 108 /min [facility] 06-10-2024 22:26-0400 Respiratory rate 16 /min [facility] 06-10-2024 22:26-0400 SaO2% (BldA) [Mass fraction] 97 % [facility] 06-10-2024 22:26-0400 Systolic blood pressure 144 mm[Hg] [facility] 01-28-2024 13:37-0500 Body height 180.3 cm Christy Shital LAUNDRY OPERATOR WASH ROOM - AGRICULTURAL CHEMICALS INSPECTOR Work Phone: [facility] 01-28-2024 13:37-0500 Body mass index (BMI) [Ratio] 27.06 kg/m2 Christy Shital LAUNDRY OPERATOR WASH ROOM - AGRICULTURAL CHEMICALS INSPECTOR Work Phone: [facility] 01-28-2024 13:37-0500 Body temperature 98.4 [degF] Christy Shital LAUNDRY OPERATOR WASH ROOM - AGRICULTURAL CHEMICALS INSPECTOR Work Phone: [facility] 01-28-2024 13:37-0500 Body weight 88 kg Christy Shital LAUNDRY OPERATOR WASH ROOM - AGRICULTURAL CHEMICALS INSPECTOR Work Phone: [facility] 01-28-2024 13:37-0500 Diastolic blood pressure 75 mm[Hg] Christy Shital LAUNDRY OPERATOR WASH ROOM - AGRICULTURAL CHEMICALS INSPECTOR Work Phone: [facility] 01-28-2024 13:37-0500 Heart rate 90 /min Christy Shital LAUNDRY OPERATOR WASH ROOM - AGRICULTURAL CHEMICALS INSPECTOR Work Phone: [facility] 01-28-2024 13:37-0500 Respiratory rate 17 /min Christy Shital LAUNDRY OPERATOR WASH ROOM - AGRICULTURAL CHEMICALS INSPECTOR Work Phone: [facility] 01-28-2024 13:37-0500 SaO2% (BldA) [Mass fraction] 98 % Christy Shital LAUNDRY OPERATOR WASH ROOM - AGRICULTURAL CHEMICALS INSPECTOR Work Phone: [facility] 01-28-2024 13:37-0500 Systolic blood pressure 117 mm[Hg] Christy Shital LAUNDRY OPERATOR WASH ROOM - AGRICULTURAL CHEMICALS INSPECTOR Work Phone: [facility] 06-20-2023 19:15-0400 Body temperature 97.88 [degF] OLIVIER VASQUES LAUNDRY OPERATOR WASH ROOM-SENIOR NET ENGINEER [facility] 06-20-2023 19:15-0400 Diastolic Blood Pressure Non-Invasive 90 mm[Hg] OLIVIER VASQUES LAUNDRY OPERATOR WASH ROOM-SENIOR NET ENGINEER [facility] 06-20-2023 19:15-0400 Heart rate 87 /min OLIVIER VASQUES LAUNDRY OPERATOR WASH ROOM-SENIOR NET ENGINEER [facility] 06-20-2023 19:15-0400 Reason For Taking VItal Signs OLIVIER VASQUES LAUNDRY OPERATOR WASH ROOM-SENIOR NET ENGINEER [facility] 06-20-2023 19:15-0400 Respiratory rate 16 /min OLIVIER VASQUES LAUNDRY OPERATOR WASH ROOM-SENIOR NET ENGINEER [facility] 06-20-2023 19:15-0400 Systolic Blood Pressure Non-Invasive 144 mm[Hg] OLIVIER VASQUES LAUNDRY OPERATOR WASH ROOM-SENIOR NET ENGINEER [facility] 06-20-2023 17:05-0400 Body temperature 97.88 [degF] OLIVIER VASQUES LAUNDRY OPERATOR WASH ROOM-SENIOR NET ENGINEER [facility] 06-20-2023 17:05-0400 Diastolic Blood Pressure Non-Invasive 87 mm[Hg] OLIVIER VASQUES LAUNDRY OPERATOR WASH ROOM-SENIOR NET ENGINEER [facility] 06-20-2023 17:05-0400 Heart rate 93 /min OLIVIER VASQUES LAUNDRY OPERATOR WASH ROOM-SENIOR NET ENGINEER [facility] 06-20-2023 17:05-0400 Reason For Taking VItal Signs OLIVIER VASQUES LAUNDRY OPERATOR WASH ROOM-SENIOR NET ENGINEER [facility] 06-20-2023 17:05-0400 Respiratory rate 14 /min OLIVIER VASQUES LAUNDRY OPERATOR WASH ROOM-SENIOR NET ENGINEER [facility] 06-20-2023 17:05-0400 Systolic Blood Pressure Non-Invasive 134 mm[Hg] OLIVIER VASQUES LAUNDRY OPERATOR WASH ROOM-SENIOR NET ENGINEER [facility] 06-20-2023 14:30-0400 Diastolic Blood Pressure Non-Invasive 93 mm[Hg] OLIVIER VASQUES LAUNDRY OPERATOR WASH ROOM-SENIOR NET ENGINEER [facility] 06-20-2023 14:30-0400 Systolic Blood Pressure Non-Invasive 138 mm[Hg] OLIVIER VASQUES LAUNDRY OPERATOR WASH ROOM-SENIOR NET ENGINEER [facility] 06-20-2023 14:24-0400 Body temperature 97.52 [degF] OLIVIER VASQUES LAUNDRY OPERATOR WASH ROOM-SENIOR NET ENGINEER [facility] 06-20-2023 14:24-0400 Heart rate 80 /min OLIVIER VASQUES LAUNDRY OPERATOR WASH ROOM-SENIOR NET ENGINEER [facility] 06-20-2023 14:24-0400 Reason For Taking VItal Signs OLIVIER VASQUES LAUNDRY OPERATOR WASH ROOM-SENIOR NET ENGINEER [facility] 06-20-2023 14:24-0400 Respiratory rate 14 /min OLIVIER VASQUES LAUNDRY OPERATOR WASH ROOM-SENIOR NET ENGINEER [facility] 06-20-2023 05:41-0400 Body height 180.3 cm OLIVIER VASQUES LAUNDRY OPERATOR WASH ROOM-SENIOR NET ENGINEER [facility] 06-20-2023 05:41-0400 Body weight 95.3 kg OLIVIER VASQUES LAUNDRY OPERATOR WASH ROOM-SENIOR NET ENGINEER [facility] 06-20-2023 05:41-0400 Body weight 29.32 kg/m2 OLIVIER VASQUES LAUNDRY OPERATOR WASH ROOM-SENIOR NET ENGINEER [facility] 06-20-2023 05:35-0400 Blood Pressure Location OLIVIER VASQUES LAUNDRY OPERATOR WASH ROOM-SENIOR NET ENGINEER [facility] 06-20-2023 04:49-0400 Blood Pressure Location OLIVIER LAYO LAUNDRY OPERATOR WASH ROOM-SENIOR NET ENGINEER [facility] 06-20-2023 04:49-0400 Blood Pressure Method OLIVIER LAYO LAUNDRY OPERATOR WASH ROOM-SENIOR NET ENGINEER [facility] 06-20-2023 04:49-0400 Heart rate 80 /min OLIVIER VASQUES LAUNDRY OPERATOR WASH ROOM-SENIOR NET ENGINEER [facility] 06-20-2023 04:18-0400 Blood Pressure Location OLIVIER LAYO LAUNDRY OPERATOR WASH ROOM-SENIOR NET ENGINEER [facility] 06-20-2023 04:18-0400 Blood Pressure Method OLIVIER LAYO LAUNDRY OPERATOR WASH ROOM-SENIOR NET ENGINEER [facility] 06-20-2023 04:18-0400 Heart rate 87 /min OLIVIER VASQUES LAUNDRY OPERATOR WASH ROOM-SENIOR NET ENGINEER [facility] 06-20-2023 03:04-0400 Blood Pressure Method OLIVIER LAYO LAUNDRY OPERATOR WASH ROOM-SENIOR NET ENGINEER [facility] 06-20-2023 03:04-0400 Heart rate 107 /min OLIVIER VASQUES LAUNDRY OPERATOR WASH ROOM-SENIOR NET ENGINEER [facility] 06-20-2023 02:15-0400 Body height 180.3 cm OLIVIER VASQUES LAUNDRY OPERATOR WASH ROOM-SENIOR NET ENGINEER [facility] 06-20-2023 02:15-0400 Body weight 95 kg OLIVIER VASQUES LAUNDRY OPERATOR WASH ROOM-SENIOR NET ENGINEER [facility] 06-20-2023 00:48-0400 Body temperature 97.4 [degF] No Primary Care Physician [facility] 06-20-2023 00:48-0400 Diastolic blood pressure 85 mm[Hg] No Primary Care Physician [facility] 06-20-2023 00:48-0400 Heart rate 68 /min No Primary Care Physician [facility] 06-20-2023 00:48-0400 Respiratory rate 16 /min No Primary Care Physician [facility] 06-20-2023 00:48-0400 SaO2% (BldA) [Mass fraction] 100 % No Primary Care Physician [facility] 06-20-2023 00:48-0400 Systolic blood pressure 151 mm[Hg] No Primary Care Physician [facility] 06-19-2023 20:58-0400 Body height 180.34 cm No Primary Care Physician [facility] 06-19-2023 20:58-0400 Body mass index (BMI) [Ratio] 29 kg/m2 No Primary Care Physician [facility] 06-19-2023 20:58-0400 Body weight 94.46 kg No Primary Care Physician [facility] 05-01-2023 13:42-0400 Body temperature 97.4 [degF] No Primary Care Physician [facility] 05-01-2023 13:42-0400 Diastolic blood pressure 78 mm[Hg] No Primary Care Physician [facility] 05-01-2023 13:42-0400 Heart rate 55 /min No Primary Care Physician [facility] 05-01-2023 13:42-0400 Respiratory rate 17 /min No Primary Care Physician [facility] 05-01-2023 13:42-0400 SaO2% (BldA) [Mass fraction] 98 % No Primary Care Physician [facility] 05-01-2023 13:42-0400 Systolic blood pressure 138 mm[Hg] No Primary Care Physician [facility] 05-01-2023 06:45-0400 Body height 180.34 cm No Primary Care Physician [facility] 05-01-2023 06:45-0400 Body mass index (BMI) [Ratio] 28 kg/m2 No Primary Care Physician [facility] 05-01-2023 06:45-0400 Body weight 91.4 kg No Primary Care Physician [facility] 05-01-2023 05:52-0400 Body temperature 97.1 [degF] No Primary Care Physician [facility] 05-01-2023 05:52-0400 Diastolic blood pressure 84 mm[Hg] No Primary Care Physician [facility] 05-01-2023 05:52-0400 Heart rate 96 /min No Primary Care Physician [facility] 05-01-2023 05:52-0400 Respiratory rate 14 /min No Primary Care Physician [facility] 05-01-2023 05:52-0400 SaO2% (BldA) [Mass fraction] 99 % No Primary Care Physician [facility] 05-01-2023 05:52-0400 Systolic blood pressure 124 mm[Hg] No Primary Care Physician [facility] 05-01-2023 05:05-0400 Body height 180.34 cm No Primary Care Physician [facility] 03-23-2023 10:40-0500 Body temperature 98.3 [degF] No Primary Care Physician [facility] 03-23-2023 10:40-0500 Diastolic blood pressure 84 mm[Hg] No Primary Care Physician [facility] 03-23-2023 10:40-0500 Heart rate 87 /min No Primary Care Physician [facility] 03-23-2023 10:40-0500 Respiratory rate 16 /min No Primary Care Physician [facility] 03-23-2023 10:40-0500 SaO2% (BldA) [Mass fraction] 96 % No Primary Care Physician [facility] 03-23-2023 10:40-0500 Systolic blood pressure 133 mm[Hg] No Primary Care Physician [facility] 03-23-2023 05:34-0500 Body temperature 98.3 [degF] No Primary Care Physician [facility] 03-23-2023 05:34-0500 Diastolic blood pressure 58 mm[Hg] No Primary Care Physician [facility] 03-23-2023 05:34-0500 Heart rate 86 /min No Primary Care Physician [facility] 03-23-2023 05:34-0500 Respiratory rate 17 /min No Primary Care Physician [facility] 03-23-2023 05:34-0500 SaO2% (BldA) [Mass fraction] 98 % No Primary Care Physician [facility] 03-23-2023 05:34-0500 Systolic blood pressure 113 mm[Hg] No Primary Care Physician [facility] 03-23-2023 01:01-0500 Body height 180.34 cm No Primary Care Physician [facility] 03-23-2023 01:01-0500 Body mass index (BMI) [Ratio] 27.6 kg/m2 No Primary Care Physician [facility] 03-23-2023 01:01-0500 Body weight 89.81 kg No Primary Care Physician [facility] 03-22-2023 22:04-0500 Body height 180.34 cm No Primary Care Physician [facility] 03-22-2023 22:04-0500 Body mass index (BMI) [Ratio] 27.6 kg/m2 No Primary Care Physician [facility] 03-22-2023 22:04-0500 Body temperature 97.5 [degF] No Primary Care Physician [facility] 03-22-2023 22:04-0500 Body weight 89.81 kg No Primary Care Physician [facility] 03-22-2023 22:04-0500 Diastolic blood pressure 86 mm[Hg] No Primary Care Physician [facility] 03-22-2023 22:04-0500 Heart rate 108 /min No Primary Care Physician [facility] 03-22-2023 22:04-0500 Respiratory rate 18 /min No Primary Care Physician [facility] 03-22-2023 22:04-0500 SaO2% (BldA) [Mass fraction] 96 % No Primary Care Physician [facility] 03-22-2023 22:04-0500 Systolic blood pressure 135 mm[Hg] No Primary Care Physician [facility] 08-07-2022 08:32-0400 Body temperature 97.9 [degF] Dr. Fior Ridley Work Phone: [facility] 08-07-2022 08:32-0400 Diastolic blood pressure 63 mm[Hg] Dr. Fior Ridley Work Phone: [facility] 08-07-2022 08:32-0400 Heart rate 81 /min Dr. Fior Ridley Work Phone: [facility] 08-07-2022 08:32-0400 Respiratory rate 18 /min Dr. Fior Ridley Work Phone: [facility] 08-07-2022 08:32-0400 SaO2% (BldA) [Mass fraction] 99 % Dr. Fior Ridley Work Phone: 4(356)[phone] [place] [address] 08-07-2022 08:32-0400 Systolic blood pressure 125 mm[Hg] Dr. Fior Ridley Work Phone: 1(217)[phone] [place] [address] 08-05-2022 18:27-0400 Body height 180.[address] Fior Ridley Work Phone: 4(236)[phone] [place] [address] 08-05-2022 18:27-0400 Body mass index (BMI) [Ratio] 24.4 kg/m2 Dr. Fior Ridley Work Phone: 8(825)[phone] [place] [address] 08-05-2022 18:27-0400 Body weight 79.[address] Fior Ridley Work Phone: 6(159)[phone] [place] [address] 08-05-2022 17:22-0400 Respiratory rate 18 /min Dr. Fior Ridley Work Phone: 9(845)[phone] [place] [address] 08-05-2022 17:11-0400 Body temperature 97.7 [degF] Dr. Fior Ridley Work Phone: 8(645)[phone] [place] [address] 08-05-2022 17:11-0400 Diastolic blood pressure 68 mm[Hg] Dr. Fior Ridley Work Phone: 1(714)[phone] [place] [address] 08-05-2022 17:11-0400 Heart rate 81 /min Dr. Fior Ridley Work Phone: 1(224)[phone] [place] [address] 08-05-2022 17:11-0400 SaO2% (BldA) [Mass fraction] 97 % Dr. Fior Ridley Work Phone: 2(872)[phone] [place] [address] 08-05-2022 17:11-0400 Systolic blood pressure 124 mm[Hg] Dr. Fior Ridley Work Phone: 6(408)[phone] [place] [address] 08-05-2022 15:22-0400 Body height 180.[address] Fior Ridley Work Phone: 3(714)[phone] [place] [address] 08-05-2022 15:22-0400 Body mass index (BMI) [Ratio] 27.1 kg/m2 Dr. Fior Ridley Work Phone: [facility] 08-05-2022 15:22-0400 Body weight 88.[address] Fior Ridley Work Phone: [facility] Encounters Encounter Date Encounter Type Care Provider Facility Start: 10-19-2024 Non-patient / Non-visit Dr. Yamilex Carter MD -[facility] Work Phone: Start: 10-18-2024 ambulatory Ingrid Reece Facility:[facility] Start: 10-18-2024 End: 10-19-2024 Evaluation and management of inpatient Dr. Ingrid Reece MD -[facility] Work Phone: Start: 10-18-2024 End: 10-18-2024 Emergency department patient visit No Primary Care Physician -Emergency Department Work Phone: Start: 10-18-2024 End: 10-18-2024 ambulatory MARILOU VASQUEZ [facility] Start: 10-12-2024 End: 10-14-2024 ambulatory PHYSICIAN NO [facility] Start: 10-12-2024 End: 10-14-2024 Evaluation and management of inpatient Demetrius Wilder MD Work Phone: [facility] Start: 10-12-2024 End: 10-12-2024 Emergency department patient visit PHYSICIAN NO [facility] Start: 10-08-2024 End: 10-11-2024 Evaluation and management of inpatient Corona Guerrero MD Work Phone: [facility] Start: 10-04-2024 End: 10-05-2024 Evaluation and management of inpatient Dawson Plascencia DO Work Phone: [facility] Start: 10-02-2024 End: 10-06-2024 Emergency department patient visit PHYSICIAN NO [facility] Start: 10-02-2024 End: 10-04-2024 Evaluation and management of inpatient Geoff Juniormalorie Cadena DO Work Phone: [facility] Start: 10-02-2024 Non-patient / Non-visit Dr. Rachel martinez MD -[facility] Work Phone: Start: 10-02-2024 End: 10-02-2024 Emergency department patient visit No Primary Care Physician -Emergency Department Work Phone: Start: 10-01-2024 Non-patient / Non-visit Dr. Jacquie Beckwith MD -[facility] Work Phone: Start: 10-01-2024 ambulatory Rachel Stephen Facility:[facility] Start: 10-01-2024 End: 10-01-2024 Evaluation and management of inpatient Dr. Rachel Stephen MD -[facility] 3 Work Phone: Start: 09-30-2024 End: 10-01-2024 Emergency department patient visit SHWETA RAYA [facility] Start: 09-29-2024 End: 09-30-2024 Emergency department patient visit [facility] Start: 09-27-2024 End: 09-28-2024 Emergency department patient visit [facility] Start: 06-24-2024 End: 06-24-2024 Emergency department patient visit [facility] Start: 06-11-2024 End: 06-11-2024 Emergency department patient visit [facility] Comment on above: Chest pain, unspecif ied type (Primary Dx); Methamphetamine abuse (HCC); Alcohol abuse Start: 06-10-2024 End: 06-10-2024 Emergency department patient visit [facility] Start: 01-28-2024 End: 01-28-2024 Office outpatient visit 15 minutes Christy Retana LAUNDRY OPERATOR WASH ROOM - AGRICULTURAL CHEMICALS INSPECTOR Work Phone: [facility] Comment on above: Influenza A (Primary Dx); URI with cough and congestion; Generalized body aches Start: 01-28-2024 End: 01-28-2024 ambulatory [facility] Start: 07-25-2023 End: 07-25-2023 Emergency department patient visit Physician No [facility] Start: 06-20-2023 End: 06-20-2023 Emergency department patient visit KATYA GRIFFITH MD Facility:B Start: 06-20-2023 End: 06-20-2023 Observation OLIVIER VASQUES LAUNDRY OPERATOR WASH ROOM-SENIOR NET ENGINEER [facility] Start: 06-19-2023 End: 06-20-2023 Emergency department patient visit No Primary Care Physician [facility]-Emergency Department Work Phone: Start: 05-01-2023 End: 05-01-2023 Evaluation and management of inpatient No Primary Care Physician [facility]-Intensive Care Unit Work Phone: Start: 03-23-2023 Non-patient / Non-visit No [facility] Physician [facility] Work Phone: Start: 03-23-2023 End: 03-23-2023 Evaluation and management of inpatient No [facility] Work Phone: Start: 08-07-2022 Non-patient / Non-visit Dr. Franklin Ridley Work Phone: [facility] Start: 08-06-2022 Non-patient / Non-visit Dr. Franklin Ridley Work Phone: [facility] Start: 08-05-2022 Non-patient / Non-visit Dr. Franklin Ridley Work Phone: [facility] Start: 08-05-2022 End: 08-07-2022 Evaluation and management of inpatient Dr. Fior Ridley Work Phone: [facility] Surgical 3 Procedures Date Procedure Procedure Detail Performing Clinician Start: 10-19-2024 Estimated creatinine clearance No Primary Care Physician Start: 10-18-2024 Estimated creatinine clearance No Primary Care Physician Start: 10-18-2024 Methadone measuremen t, urine No Primary Care Physician Start: 10-18-2024 Urnls dip stick/tabl et reagent auto microscopy No Primary Care Physician Start: 10-14-2024 Creatinine blood Daisy Karina Hampton SENIOR NET ENGINEER Work Phone: Start: 10-13-2024 EMS RUN SHEET Generic E ms Provider Start: 10-13-2024 Basic metabolic pane l calcium total Akilah Cervantes SENIOR NET ENGINEER Work Phone: Start: 10-12-2024 Blood ethanol measurement Akilah Cervantes SENIOR NET ENGINEER Work Phone: Start: 10-12-2024 Basic metabolic pane l calcium total Demetrius Wilder MD Work Phone: Start: 10-12-2024 Complete blood count with white cell differential, manual Demetrius Wilder MD Work Phone: Start: 10-12-2024 Culture bacterial bl ood aerobic w/id isolates Demetrius Wilder MD Work Phone: Start: 10-09-2024 Basic metabolic pane l calcium total Yuki WATTC Work Phone: Start: 10-08-2024 Drug tst prsmv instr mnt chem analyzers pr date Kyle CAMPA-C Work Phone: Start: 10-08-2024 Ct maxillofacial w/c ontrast material Kyle CAMPA-C Work Phone: Start: 10-08-2024 Blood ethanol measurement Holli Camargo Start: 10-08-2024 Complete blood count with white cell differential, manual Kyle WATTC Work Phone: Start: 10-08-2024 Comprehensive metabo lic panel Tejal Erinn Mckeon PA-C Work Phone: Start: 10-08-2024 Hepatic function panel Tejal Erinn Mckeon PA-C Work Phone: Start: 10-05-2024 Basic metabolic pane l calcium total Christen Figliomeni KATHERYN-C Work Phone: Start: 10-05-2024 Drug tst prsmv instr mnt chem analyzers pr date Renae Piañ SENIOR NET ENGINEER Work Phone: Start: 10-04-2024 Blood count complete automated Renae Piña SENIOR NET ENGINEER Work Phone: Start: 10-04-2024 Blood ethanol measurement Renae Piña SENIOR NET ENGINEER Work Phone: Start: 10-04-2024 Blood ethanol measurement Shellie Herrmann DO Work Phone: Start: 10-03-2024 Drug tst prsmv instr mnt chem analyzers pr date Leonel Colón Start: 10-03-2024 Basic metabolic pane l calcium total Leonel Colón Start: 10-02-2024 Blood count complete automated Holli Amaya SENIOR NET ENGINEER Work Phone: Start: 10-02-2024 Blood group typing [...] metabolic pane l calcium total Holli Amaya SENIOR NET ENGINEER Work Phone: Start: 10-02-2024 Blood ethanol measurement Geoff Kulkarnien DO Work Phone: Start: 10-02-2024 Hepatic function [...] Comment: URIN ALYSIS Performed By: #### [id number] #### [place] [id number] Start: 09-28-2024 Urinalysis SHWETA Gibson Comment on above: Result Comment: URIN ALYSIS Performed By: #### [id number] ####[place] [id number] Start: 06-11-2024 Basic metabolic pane l calcium total Easton Hesham LAUNDRY OPERATOR WASH ROOM - SENIOR NET ENGINEER Work Phone: Start: 06-11-2024 Drug test def 1-7 classes Easton Hesham LAUNDRY OPERATOR WASH ROOM - SENIOR NET ENGINEER Work Phone: Start: 06-11-2024 Radiologic exam ches t 2 views Easton Hesham LAUNDRY OPERATOR WASH ROOM - SENIOR NET ENGINEER Work Phone: Start: 06-11-2024 Ecg routine ecg w/le ast 12 lds trcg only w/o i&r Arnold Olivera MD Work Phone: Start: 01-28-2024 Sars-cov-2 detection by dna/rna Christy Retana LAUNDRY OPERATOR WASH ROOM - AGRICULTURAL CHEMICALS INSPECTOR Work Phone: Start: 01-28-2024 Infectious agent dna /rna influenza 1st 2 types Christy Retana LAUNDRY OPERATOR WASH ROOM - AGRICULTURAL CHEMICALS INSPECTOR Work Phone: Start: 06-19-2023 Plain chest X-ray No Pr imary Care Physician Start: 06-19-2023 SARS-CoV-2, Influenz a & RSV (PCR) No Primary Care Physician Plan of Treatment Date Care Activity Detail Author Start: 11-06-2071 RSV Immunization for Adults (1 - 1-dose 75+ series) RSV Immunization for Adults (1 - 1-dose 75+ series) [facility] [employer] Start: 2046 Zoster Vaccines (1 of 2) Zoster Vaccines (1 of 2) [facility] Start: 10-28-2024 End: 10-28-2024 Patient encounter procedure 10/28/2024 10:20 AM EDT Office Visit [facility] [address] [facility] [address] [place] [address] Discharge Disposition: Home [facility] Start: 10-23-2024 End: 10-23-2024 Follow-up encounter 10/23/2024 10:20 AM EDT Follow-Up [facility] [address] [facility] [address] [place] [address] Anjel Duval PA-C [address] [facility] [address] [place] [address] [facility] Start: 10-20-2024 End: 10-20-2024 Patient encounter procedure 10/20/2024 10:20 AM EDT Office Visit [facility] [address] [facility] [address] [place] [address] Discharge Disposition: Home [facility] Start: 10-19-2024 Patient discharge [facility] Start: 10-18-2024 Following clinical pathway protocol [facility] Start: 10-18-2024 End: 10-18-2024 [facility] Start: 10-18-2024 Assessment of risk of venous thromboembolism [facility] Start: 10-18-2024 Insertion of catheter into peripheral vein [facility] Start: 10-18-2024 Providing care according to standard [facility] Start: 10-18-2024 Provision of activity privileges [facility] Start: 10-18-2024 Admission procedure [facility] Start: 10-18-2024 Hospital admission, emergency, from emergency room, medical nature [facility] Start: 10-18-2024 [facility] Start: 10-18-2024 Consultation [facility] Start: 10-18-2024 Patient referral to dietitian [facility] Start: 10-14-2024 End: 10-14-2024 Incision & drainage abscess simple/single INCISION AND DRAINAGE HEAD/NECK UNK 10/14/2024 10:09 AM EDT [facility] Start: 10-14-2024 End: 10-14-2024 Removal implant deep REMOVAL ARCHBAR UNK 10/14/2024 10:09 AM EDT [facility] Start: 10-13-2024 End: 10-13-2024 Admission to same day surgery center 10/13/2024 2:45 PM EDT - 10/13/2024 3:35 PM EDT Surgery [facility] [address] [place] [address] Marilou Vasquez MD [address] [place] [address] MAXILLOMANDIBULAR FIXATION SCREW REMOVAL [facility] Comment on above: MAXILLOMANDIBULAR FIXATION SCREW REMOVAL Start: 10-13-2024 End: 10-13-2024 Incision & drainage abscess simple/single INCISION AND DRAINAGE HEAD/NECK K 10/13/2024 2:45 PM EDT [facility] Start: 10-13-2024 End: 10-13-2024 Removal implant deep REMOVAL ARCHBAR [facility] 10/13/2024 2:45 PM EDT [facility] Start: 10-12-2024 Influenza vaccination Influenza Vaccine (Season Ended) [facility] Start: 10-04-2024 End: 10-04-2024 Open tx comp fx malar w/internal fx&mult surg OPEN REDUCTION INTERNAL FIXATION MANDIBLE MAXILLA UNK 10/04/2024 7:25 AM EDT [facility] Start: 10-02-2024 Emergency department visit high/urgent severity EMERGENCY DEPT VISIT MOD MDM [facility] Start: 10-01-2024 Following clinical pathway protocol [facility] Start: 10-01-2024 Admission procedure [facility] Start: 10-01-2024 Assessment of risk of venous thromboembolism [facility] Start: 10-01-2024 Introduction of urinary catheter [facility] Start: 10-01-2024 Notification of physician [facility] Start: 10-01-2024 Oxygen therapy [facility] Start: 10-01-2024 Referral to service [facility] Start: 10-01-2024 Vital signs measurements [facility] Start: 10-01-2024 Provision of activity privileges [facility] Start: 10-01-2024 Verification routine [facility] Start: 10-01-2024 End: 10-01-2024 [facility] Start: 10-01-2024 Consultation [facility] Start: 10-01-2024 Patient discharge [facility] Start: 10-13-2023 COVID-19 Vaccine () COVID-19 Vaccine () [facility] Start: 10-13-2023 Influenza vaccination Influenza Vaccine (#1) [facility] Start: 06-20-2023 [facility] Start: 05-01-2023 Following clinical pathway protocol [facility] Start: 05-01-2023 Assessment of risk of venous thromboembolism [facility] Start: 05-01-2023 Inhalation therapy procedure [facility] Start: 05-01-2023 Introduction of urinary catheter [facility] Start: 05-01-2023 Notification of physician [facility] Start: 05-01-2023 Oxygen therapy [facility] Start: 05-01-2023 Provision of activity privileges [facility] Start: 05-01-2023 Referral to service [facility] Start: 05-01-2023 Vital signs measurements [facility] Start: 05-01-2023 [facility] Start: 05-01-2023 Verification routine [facility] Start: 05-01-2023 Admission procedure [facility] Start: 05-01-2023 Hospital admission, emergency, from emergency room, medical nature [facility] Start: 05-01-2023 Patient discharge [facility] Start: 05-01-2023 [facility] Start: 03-23-2023 Patient discharge [facility] Start: 03-23-2023 Following clinical pathway protocol [facility] Start: 03-23-2023 Assessment of risk of venous thromboembolism [facility] Start: 03-23-2023 Notification of physician [facility] Start: 03-23-2023 Provision of activity privileges [facility] Start: 03-23-2023 Vital signs measurements [facility] Start: 03-23-2023 [facility] Start: 03-23-2023 Gamma glutamyl transferase measurement [facility] Start: 03-23-2023 Prothrombin time [facility] Start: 03-23-2023 Admission procedure [facility] Start: 08-07-2022 Patient discharge [facility] Start: 08-05-2022 Following clinical pathway protocol [facility] Start: 08-05-2022 Ambulation without limitation [facility] Start: 08-05-2022 Assessment of risk of venous thromboembolism [facility] Start: 08-05-2022 Catheterization of vein [facility] Start: 08-05-2022 Insertion of catheter into peripheral vein [facility] Start: 08-05-2022 Providing care according to standard [facility] Start: 08-05-2022 Referral to service [facility] Start: 08-05-2022 [facility] Start: 08-05-2022 Verification routine [facility] Start: 08-05-2022 Admission procedure [facility] Start: 08-05-2022 [facility] Start: 11-06-2015 DTaP/Tdap/Td Vaccines (1 - Tdap) DTaP/Tdap/Td Vaccines (1 - Tdap) [facility] Start: 11-06-2015 Hepatitis B Vaccines (1 of 3 - 19+ 3-dose series) Hepatitis B Vaccines (1 of 3 - 19+ 3-dose series) [facility] Start: 11-06-2015 Pneumococcal Vaccine: Pediatrics (0 to 5 Years) and At-Risk Patients (6 to 49 Years) (1 of 2 - PCV) Pneumococcal Vaccine: Pediatrics (0 to 5 Years) and At-Risk Patients (6 to 49 Years) (1 of 2 - PCV) [facility] Start: 2014 Hepatitis C screening Hepatitis C Screening [facility] Start: 2009 Varicella vaccination Varicella Vaccines (1 of 2 - 13+ 2-dose series) [facility] Start: 2008 Depression Screening Depression Screening [facility] Start: 1997 MMR Vaccines (1 of 1 - Standard series) MMR Vaccines (1 of 1 - Standard series) [facility] Start: 1996 HIV screening HIV Screening [facility] Amphetamines [Presen ce] in Urine by Screen method >1000 ng/mL [facility] Anion gap in Serum o r Plasma [facility] Bacteria identified in Blood by Culture Blood Culture Aerobic/Anaerobic Microbiology [facility] 10/12/2024 4:45 PM EDT [facility] Work Phone: Benzodiazepine measurement, urine [facility] BUN/Creatinine ratio [facility] Calcium [Mass/volume ] in Serum or Plasma [facility] Carbon dioxide, tota l [Moles/volume] in Central venous blood [facility] Cocaine measurement, urine [facility] Creatinine [Mass/vol ume] in Serum or Plasma [facility] Ethanol [Mass/volume ] in Serum or Plasma [facility] fentaNYL [Presence] in Urine by Screen method [facility] Gamma glutamyl transferase measurement [facility] Glucose [Mass/volume ] in Serum or Plasma [facility] INR in Blood by Coagulation assay [facility] Measurement of renal function [facility] Methadone measuremen t, urine [facility] Patient Education [facility] Work Phone: Patient referral [facility] Work Phone: Phencyclidine [Prese nce] in Urine [facility] Potassium measurement [facility] Serum chloride measurement [facility] Sodium measurement [facility] Urea nitrogen [Mass/volume] in Serum or Plasma [facility] Urine cannabinoid measurement [facility] Urine opiate measurement [facility] End: 10-02-2024 US Abdomen limited [facility] Work Phone: Comment on above: Once for 1 Occurrences starting 10/03/19 until 10/02/2024 Immunizations Immunization Date Immunization Notes Care Provider Sumi fenton 10-02-2024 tetanus toxoid, redu anshul diphtheria toxoid, and acellular pertussis vaccine, adsorbed No Primary Care Physician [facility] Payers Date Payer Category Payer Self-pay 2023 Medicaid (Managed Care) [facility] MEDICAID [id number] 2023 Medicaid HMO CRISTA SANTOS ODM [id number] 2023 Private Health Insurance [id number] 1996 Unknown [id number] 2.0.1.895931.3.579.2. 627 1996 Unknown [id number] 2.840.1.959863.3.579.2. 204 1996 Unknown [id number] 2.0.1.248928.3.579.2. 651 1996 Unknown [id number] 2.840.1.692707.3.579.2. 651 1996 Unknown [id number] 2.840.1.057363.3.579.2. 651 1996 Unknown [id number] 2.16840.1.073689.3.579.2. 902 1996 Unknown [id number] 2.16840.1.173983.3.579.2. 902 1996 Unknown [id number] 2.16.840.1.102319.3.579.2. 902 1996 Unknown [id number] 2.16.840.1.862955.3.579.2. 902 1996 Unknown [id number] 2.16.840.1.151196.3.579.2. 902 1996 Unknown [id number] 2.16.840.1.188570.3.579.2. 902 1996 Unknown [id number] 2.16.840.1.460904.3.579.2. 902 Unknown [id number] 2.16.840.1.691296.3.579.2. 462 Unknown [id number] 2.16.840.1.526634.3.579.2. 462 Unknown [id number] 2.16.840.1.827486.3.579.2. 462 Unknown [id number] 2.16.840.1.444224.3.579.2. 462 Unknown [id number] 2.16.840.1.827486.3.579.2. 462 Unknown [id number] 2.16.840.1.882966.3.579.2. 462 Unknown [id number] 2.16.840.1.219327.3.579.2. 462 Unknown [id number] 2.16.840.1.950996.3.579.2. 462 Unknown [id number] 2.16.840.1.228423.3.579.2. 462 Social History Date Type Detail Facility Start: 08-05-2022 End: 06-19-2023 Tobacco smoking status OHIS Unknown if ever smoked [facility] Start: 1995 Sex Assigned At Male [facility] Start: 06-20-2023 Tobacco smoking status Light tobacco smoker (finding) [facility] Start: 1995 Sex assigned at Not on file [facility] Start: 01-28-2024 Sex Male (finding) [facility] Start: 06-11-2024 End: 10-12-2024 Gender identity Not on file [facility] Start: 06-11-2024 End: 10-12-2024 History of Social function [facility] How often to you hav e a drink containing alcohol? 4 or more times a week [facility] How many standard dr inks containing alcohol do you have on a typical day? 7 to 9 [facility] How often do you hav e 6 or more drinks on 1 occasion? Daily or almost daily [facility] Start: 10-01-2024 End: 10-18-2024 Tobacco smoking status OHIS Smokes tobacco daily (finding) [facility] History of tobacco use Cigarette Smoker [facility] Start: 10-02-2024 Tobacco use and exposure Smokeless tobacco non-user [facility] Start: 10-04-2024 End: 10-14-2024 Alcoholic beverage intake Current drinker of alcohol (finding) [facility] Has the Property Place, Medipacs, or water [employer] threatened to shut off services in your home in past 12Mo Yes [facility] Within the last year , have you been afraid of your partner or ex-partner? No [facility] (I/We) worried [facility] (my/our) food would run out before (I/we) got money to buy more. Often true [facility] In the past 12 month s, has lack of transportation kept you from medical appointments or from getting medications? Yes [facility] Start: 10-02-2024 Alcohol Comment 15-20 tall boys daily, last drink yesterday - 10/02/24 [facility] Start: 10-12-2024 Alcohol Comment 5 tall boys daily, last drink today [facility] Medical Equipment Procedure Code Equipment Code Equipment Origin al Text Equipment Identifier Dates Sealant 5ml Hemostatic Matrix Fast Prep Floseal W/ Recothrom - [id number] Start: 10-04-2024 Powder 3gm Hemostatic Perclot 9cm Std Tip - [id number] Start: 10-04-2024 Screw 2 X 12mm M mf Self-Drill - [id number] Start: 10-04-2024 Screw 2 X 8mm Mm f Self-Drill - [id number] Start: 10-04-2024 Screw 2 X 12mm M mf Self-Drill - [id number] Start: 10-14-2024 Goals Date Patient Goal Desired Activity /State Functional Status Date Assessment Result Facility 10-19-2024 Functional status Up [facility] Work Phone: 10-01-2024 Functional status Up ad [place] [facility] Work Phone: 06-20-2023 Functional Status Door open, Room check performed [facility] 06-20-2023 Functional Status [facility] 06-20-2023 Functional Status Ambulation in Room [facility] 06-20-2023 Functional Status [facility] 06-20-2023 Functional Status [facility] 06-20-2023 Functional Status [facility] 06-20-2023 Functional Status [facility] 06-20-2023 Functional Status Environmental Safety Implemented Adequate room lighting, Bed in low position, Call device within reach [facility] 05-01-2023 Functional status Patient Activity Up [facility] Work Phone: 03-23-2023 Functional status Activity Ability Indepe ndent [facility] Work Phone: 08-07-2022 Functional status Up ad [place] [facility] Work Phone: Mental Status Date Assessment Result Facility 10-19-2024 Cognitive function Voice/Name [facility] Work Phone: 10-18-2024 Cognitive function Level Of Cons ciousness Awake;Alert;Appropriate;Follow s Commands [facility] Work Phone: 10-02-2024 Cognitive function Voice/Name [facility] Work Phone: 10-01-2024 Cognitive function Voice/Name [facility] Work Phone: 06-20-2023 Mental Status Orientation Oriented x 4 [facility] 06[facility]20-2023 [facility]-20-2023 Mental Status [facility] 06-19-2023 Cognitive function Level Of Cons ciousness Awake;Alert;Appropriate [facility] Work Phone: 03-23-2023 Cognitive function Appropriate;Cooperativ e [facility] Work Phone: 08-07-2022 Cognitive function Voice/Name;Touch/Shaki ng [facility] Work Phone: Clinical Notes 08-05-2022 to 10-19-2024 Note Date & Type Note Facility 10-19-2024 Progress note Note Date/Time October 19, 2024 10:26am [facility] Medical Records Department [address] [facility] [address] [place] [address] Progress Note - Hospitalist 10/19/24 1022 MR#: [id number] Acct: [id number] Name: DAISYKADEKylah REYNOLDS Rep #:[id number] : 1995 28 From: Pratik gale MD PCP: Care Physician,No Primary Status :ADM IN Location: [place] [address] Subjective Subjective CINA score of 1 with a CIWA score of 8 Objective Data Objective Data Vital Signs: Vital Signs Temp Pulse Resp BP Pulse Ox O2 Del Method 97.9 F 71 16 100/61 98 Room Air 10/19/24 10:19 10/19/24 10:19 10/19/24 10:19 10/19/24 10:19 10/19/24 10:19 10/19/24 10:19 Oxygen Delivery Method Room Air Weight: 170 lb Body Mass Index (BMI) 23.7 Intake & Output: Intake and Output for Last 24 Hours 10/18/24 10/19/24 10/20/24 03:59 03:59 03:59 Intake Total 1300 / 1300 1145 / 1145 Balance 1300 / 1300 1145 / 1145 Lab / Micro Data 10/19/24 06:45 10/19/24 06:45 Labs: Laboratory Results - last 24 hr 10/18/24 16:45: Urine Color Yellow, Urine Clarity Clear, Urine pH 5.0, Ur Specific Maud 1.025, Urine Protein 30 H, Urine Glucose (UA) Normal, Urine Ketones 50 H, Urine Occult Blood Negative, Urine Nitrite Negative, Urine Bilirubin Negative, Urine Urobilinogen Normal, Ur Leukocyte Esterase Negative, Urine RBC 0 SEEN, Urine WBC 0 SEEN, Ur Squamous Epith Cells 0 SEEN, Urine Bacteria 0 SEEN, Urine Mucus 0 SEEN, Urine Opiates Screen PRESUMPTIVE POSITIVE, U Buprenorphine Qual NEGATIVE, Ur Oxycodone Screen NEGATIVE, Urine Methadone Screen NEGATIVE, Urine Fentanyl Screen NEGATIVE, Ur Barbiturates Screen PRESUMPTIVE POSITIVE, Ur Phencyclidine Scrn NEGATIVE, Ur Amphetamines Screen PRESUMPTIVE POSITIVE, U Benzodiazepines Scrn PRESUMPTIVE POSITIVE, Urine CocaineScreen PRESUMPTIVE POSITIVE, U Cannabinoids Screen NEGATIVE 10/18/24 16:57: WBC 10.3, RBC 4.35 L, Hgb 14.8, Hct 42.0, MCV 96.6 H, MCH 34.0 H, MCHC 35.2, RDW Std Deviation 42.9, RDW Coeff of Jessica 12.2, Plt Count 536 H, MPV8.9, Immature Gran % (Auto) 0.400, Neut % (Auto) 81.9 H, Lymph % (Auto) 11.1 L, Trimble % (Auto) 5.0, Eos % (Auto) 0.5, Baso % (Auto) 1.1 H, Absolute Neuts (auto) 8.5 H, Absolute Lymphs (auto) 1.14, Nucleated RBC % 0, Sodium 138, Potassium 4.7, Chloride 101, Carbon Dioxide 19.8 L, Anion Gap 17 H, BUN 9, Creatinine 0.66L, Estim Creat Clear Calc 179.06, Est GFR (MDRD) Non-Af 132, BUN/Creatinine Ratio 13.3, Glucose 70, Calcium 9.1, Ethyl Alcohol < 10.1 10/18/24 20:14: PT 13.9, INR 1.1, Lactic Acid < 1.0, Total Bilirubin 0.57, Direct Bilirubin 0.32 H, AST 20, ALT 12, Alkaline Phosphatase 105, Total Protein 6.6, Albumin 3.8, Globulin 2.9 10/19/24 06:45: WBC 6.0, RBC 3.77 L, Hgb 12.8 L, Hct 36.4 L, MCV 96.6 H, MCH 34.0 H, MCHC 35.2, RDW Std Deviation 41.5, RDW Coeff of Jessica 11.9, Plt Count 424,MPV 9.1, Immature Gran % (Auto) 0.500, Neut % (Auto) 58.2, Lymph % (Auto) 28.1, Trimble % (Auto) 9.2, Eos % (Auto) 2.7, Baso % (Auto) 1.3 H, Absolute Neuts (auto) 3.5, Absolute Lymphs (auto) 1.68, Nucleated RBC % 0, Sodium 138, Potassium 3.6, Chloride 104, Carbon Dioxide 23.5, Anion Gap 11, BUN 12, Creatinine 0.61 L, Estim Creat Clear Calc 193.74, Est GFR (MDRD) Non-Af 135, BUN/Creatinine Ratio 20.3 H, Glucose 174 H, Calcium 8.5, Total Bilirubin 0.20, AST 19, ALT 13, Alkaline Phosphatase 101, Total Protein 5.9, Albumin 3.4 L, Globulin 2.6, Albumin/Globulin Ratio 1.3 Physical Exam Narrative General: Alert, Oriented x3, Cooperative, No apparent distress HEENT: Atraumatic, PERRLA, EOMI, Normocephalic Oral: Moist Mucosa Neck: Supple, No JVD Lungs: Clear to auscultation, Normal air movement, No rhonchi, No wheeze, No rales Cardiovascular: Regular rate, Regular Rhythm, Normal S1, Normal S2, No murmurs Abdomen: Soft, Non Tender, Non-Distended, No Hepato-splenomegaly Extremities: No edema, Capillary Refill Less than 3 Seconds Skin: Suture line on his left jaw does not appear infected Musculoskeletal: No Tenderness to Palpation of Joints or Extremities Neurological: No focal neurological deficits, Motor Exam 5/5 strength throughout, Sensory exam intact to light touch and pain Psych/Mental Status: Normal Affect, Appropriate Assessment & Plan Assessment/Plan (1) Admitted to alcohol detoxification center: (2) Polysubstance abuse: (3) Mandible fracture: PLAN: Plan 1. Requesting detox from alcohol/polysubstance abuse/tobacco abuse ? His UDS was positive for opiate use ? Continue with the [place] protocol with as needed Ativan and symptomatic medications ? Will have him meet with 180 to develop a discharge plan ? UDS is positive for other agents, will continue to monitor ? Advised cessation, provide nicotine patch if necessary 2. Recent jaw fracture with infection ? S/p surgery by about 2 weeks but he had an I&D recently ? Continue with Augmentin ? Continue on a soft diet until discharge DVT: Lovenox Charges/Coding Visit Charges Inpatient E&M: 77231 Subs Hosp L2 10/19/24 1026 <Electronically signed by Pratik Carter MD> Cosigner Signature (if applicable): CC: ~ Signed [facility] Work Phone: [phone] Progress note [facility] Medical Records Department [address] [place] [address] Progress Note - Hospitalist 10/19/24 1022 MR#: [id number] Acct: [id number] Name: KADE GONZALEZ Rep #:[id number] : 1995 28 From: Pratik gale MD PCP: Care Physician,No Primary Status :ADM IN Location: [place] [address] Subjective Subjective CINA score of 1 with a CIWA score of 8 Objective Data Objective Data Vital Signs: Vital Signs Temp Pulse Resp BP Pulse Ox O2 Del Method 97.9 F 71 16 100/61 98 Room Air 10/19/24 10:19 10/19/24 10:19 10/19/24 10:19 10/19/24 10:19 10/19/24 10:19 10/19/24 10:19 Oxygen Delivery Method Room Air Weight: 170 lb Body Mass Index (BMI) 23.7 Intake & Output: Intake and Output for Last 24 Hours 10/18/24 10/19/24 10/20/24 03:59 03:59 03:59 Intake Total 1300 / 1300 1145 / 1145 Balance 1300 / 1300 1145 / 1145 Lab / Micro Data 10/19/24 06:45 10/19/24 06:45 Labs: Laboratory Results - last 24 hr 10/18/24 16:45: Urine Color Yellow, Urine Clarity Clear, Urine pH 5.0, Ur Specific Maud 1.025, Urine Protein 30 H, Urine Glucose (UA) Normal, Urine Ketones 50 H, Urine Occult Blood Negative, UrineNitrite Negative, Urine Bilirubin Negative, Urine Urobilinogen Normal, Ur Leukocyte Esterase Negative, Urine RBC 0 SEEN, Urine WBC 0 SEEN, Ur Squamous Epith Cells 0 SEEN, Urine Bacteria 0 SEEN, UrineMucus 0 SEEN, Urine Opiates Screen PRESUMPTIVE POSITIVE, U Buprenorphine Qual NEGATIVE, Ur Oxycodone Screen NEGATIVE, Urine Methadone Screen NEGATIVE, Urine Fentanyl Screen NEGATIVE, Ur Barbiturates Screen PRESUMPTIVE POSITIVE, Ur Phencyclidine Scrn NEGATIVE, Ur Amphetamines Screen PRESUMPTIVE POSITIVE, U Benzodiazepines Scrn PRESUMPTIVE POSITIVE, Urine CocaineScreen PRESUMPTIVE POSITIVE, U Cannabinoids Screen NEGATIVE 10/18/24 16:57: WBC 10.3, RBC 4.35 L, Hgb 14.8, Hct 42.0, MCV 96.6 H, MCH 34.0 H, MCHC 35.2, RDW Std Deviation 42.9, RDW Coeff of Jessica 12.2, Plt Count 536 H, MPV8.9, Immature Gran % (Auto) 0.400, Neut% (Auto) 81.9 H, Lymph % (Auto) 11.1 L, Trimble % (Auto) 5.0, Eos % (Auto) 0.5, Baso % (Auto) 1.1 H, Absolute Neuts (auto) 8.5 H, Absolute Lymphs (auto) 1.14, Nucleated RBC % 0, Sodium 138, Potassium 4.7, Chloride 101, Carbon Dioxide 19.8 L, Anion Gap 17 H, BUN 9, Creatinine 0.66L, Estim Creat Clear Calc 179.06, Est GFR (MDRD) Non-Af 132, BUN/Creatinine Ratio 13.3, Glucose 70, Calcium 9.1, Ethyl Alcohol < 10.1 10/18/24 20:14: PT 13.9, INR 1.1, Lactic Acid < 1.0, Total Bilirubin 0.57, Direct Bilirubin 0.32H, AST 20, ALT 12, Alkaline Phosphatase 105, Total Protein 6.6, Albumin 3.8, Globulin 2.9 10/19/24 06:45: WBC 6.0, RBC 3.77 L, Hgb 12.8 L, Hct 36.4 L, MCV 96.6 H, MCH 34.0 H, MCHC 35.2, RDWStd Deviation 41.5, RDW Coeff of Jessica 11.9, Plt Count 424,MPV 9.1, Immature Gran % (Auto) 0.500, Neut % (Auto) 58.2, Lymph % (Auto) 28.1, Trimble % (Auto) 9.2, Eos % (Auto) 2.7, Baso % (Auto) 1.3 H, Absolute Neuts (auto) 3.5, Absolute Lymphs (auto) 1.68, Nucleated RBC % 0, Sodium 138, Potassium 3.6, Chloride 104, Carbon Dioxide 23.5, Anion Gap 11, BUN 12, Creatinine 0.61 L, Estim Creat Clear Calc 193.74, Est GFR (MDRD) Non-Af 135, BUN/Creatinine Ratio 20.3 H, Glucose 174 H, Calcium 8.5, Total Bilirubin 0.20, AST 19, ALT 13, Alkaline Phosphatase 101, Total Protein 5.9, Albumin 3.4 L, Globulin 2.6,Albumin/Globulin Ratio 1.3 Physical Exam Narrative General: Alert, Oriented x3, Cooperative, No apparent distress HEENT: Atraumatic, PERRLA, EOMI, Normocephalic Oral: Moist Mucosa Neck: Supple, No JVD Lungs: Clear to auscultation, Normal air movement, No rhonchi, No wheeze, No rales Cardiovascular: Regular rate, Regular Rhythm, Normal S1, Normal S2, No murmurs Abdomen: Soft, Non Tender, Non-Distended, No Hepato-splenomegaly Extremities: No edema, Capillary Refill Less than 3 Seconds Skin: Suture line on his left jaw does not appear infected Musculoskeletal: No Tenderness to Palpation of Joints or Extremities Neurological: No focal neurological deficits, Motor Exam 5/5 strength throughout, Sensory exam intact to light touch and pain Psych/Mental Status: Normal Affect, Appropriate Assessment & Plan Assessment/Plan (1) Admitted to alcohol detoxification center: (2) Polysubstance abuse: (3) Mandible fracture: PLAN: Plan 1. Requesting detox from alcohol/polysubstance abuse/tobacco abuse ? His UDS was positive for opiate use ? Continue with the [facility] protocol with as needed Ativan and symptomatic medications ? Will have him meet with 180 to develop a discharge plan ? UDS is positive for other agents, will continue to monitor ? Advised cessation, provide nicotine patch if necessary 2. Recent jaw fracture with infection ? S/p surgery by about 2 weeks but he had an I&D recently ? Continue with Augmentin ? Continue on a soft diet until discharge DVT: Lovenox Charges/Coding Visit Charges Inpatient E&M: 78754 Subs Hosp L2 10/19/24 1026 Cosigner Signature (if applicable): CC: ~ Signed [facility]09-07-2025 Discharge summary Author Bairon Dee [facility] Note Date/Time October 18, 2024 9:11pm [facility] Medical Records Department [address] [place] [address] Emergency Department Summary 10/18/24 MR#: [id number] Acct: [id number] Name: KADE GONZALEZ Rep #:[id number] : 1995 28 From: Bairon Clarke PCP: Care Physician,No Primary Status :ADM IN Location: [id number] HPI History of Present Illness Chief Complaint: Substance Abuse PFSH PFSH Medical History Substance abuse Depression Smoker Anxiety and depression Alcohol dependence Asthma Migraines Polysubstance abuse Tobacco abuse Alcohol abuse Home Medications ?Medication ?Instructions ?Recorded ?Last Taken ?Type amoxicillin 400 mg-potassium ml PO facial infection Unknown History clavulanate 57 mg/5 mL oral suspension chlorhexidine gluconate 0.12 % jaw surgery 10/18/24 Un known History mouthwash oxycodone 5 mg tablet 5 mg PO Q6H PRN pain 1 day # 4 tabs 10/18/24 Unknown Rx Allergy/AdvReac Type Severity Reaction Status Date / Time No Known Allergies Allergy Verified 10/18/24 15:58 Family History Uncle Alcohol abuse Paternal uncles. [...] EXAM Physical Exam Const Vital Signs: 10/18/24 15:58 10/18/24 16:58 10/18/24 17:00 Temperature 97.6 F L Temperature Source Temporal Pulse Rate 112 H 101 H 98 Respiratory Rate 18 18 18 Blood Pressure 105/83 H 103/50 L 103/50 L Blood Pressure Mean 90 67 67 Pulse Ox 100 99 100 Oxygen Delivery Method Room Air Room Air Room Air 10/18/24 18:00 10/18/24 18:23 Temperature 98.9 F 98.9 F Temperature Source Oral Pulse Rate 90 90 Respiratory Rate 16 16 Blood Pressure 123/68 H 123/68 H Blood Pressure Mean 86 86 Pulse Ox 100 100 Oxygen Delivery Method Room Air [facility] Narrative Medical decision making narrative: HISTORY OF PRESENT ILLNESS: Chief complaint: alcohol detox 28 M hx of alcohol abuse, polysubstance abuse presents for EtOH detox. Notes he drinks proximately 15 tall boys a day. Last drink was yesterday. Also notes heuses cocaine. Denies headache, chest pain notes pain for recent mandibular fracture site. Denies abdominal pain. Denies vomiting. Denies shortness of breath or cough. REVIEW OF SYSTEMS: Pertinent positives: Alcohol detox Pertinent negatives: As per HPI PHYSICAL EXAM: Nursing triage notes reviewed, Vital signs reviewed Constitutional: please see mdm HENT: MMM Eyes: Pupils equal round and reactive to [...] (radial, femoral, posterior tibial) in all extremities Abdomen: Soft, there is no tenderness, rigidity, rebound or guarding, no obviousperitoneal signs, no palpable pulsatile abdominal masses, no auscultated abdominal bruit : No CVAT Extremities: No edema Neuro: No new focal neurological deficits, cranial nerves II through XII intact,5/5 strength in all present extremities. Intact sensation to light touch in all present extremities, 2+ reflexes bilateral patella tendons. Skin: Well-healed surgical scars noted over bilateral mandibles. MEDICAL DECISION MAKING: Chief Complaint: please see HPI External records reviewed: Reviewed prior detox admission from 10/02/2024 Factors affecting care: As per HPI Social determinants of health: History obtained from others: none Consults: Hospitalist (Dr. Reece) [facility] Narrative: Patient was initially mildly tachycardic at a heart rate of 112 otherwise afebrile and nontoxic-appearing. Exam with surgical scars are clean dry and intact from recent mandibular fracture and surgery. Otherwise unremarkable. Patient had volitional tremors in left upper extremity only. I obtained to further determine if the patient was suffering from a life- threatening etiology. ALL IMAGES (IF OBTAINED) HAVE BEEN PERSONALLY REVIEWED AND INTERPRETED BY MYSELF. EKG with normal sinus rhythm rate of 94, normal axis, normal intervals, no STEMI Urine tox cream positive for opiates, barbiturates, amphetamines, benzodiazepines and cocaine BMP with mild metabolic acidosis bicarb 19.8, also elevated anion gap of 17 suggestive of endorgan hypoperfusion likely secondary to poor nutrition and likely alcoholic ketoacidosis CBC without leukocytosis, severe anemia, no thrombocytopenia. Patient was medically cleared. He was excepted by our hospitalist to the right program for alcohol detoxification. The patient and/or family, caregivers express understanding. [...] which required my urgent intervention. Impression: 1. Encounter for alcohol detoxification 2. History of alcohol abuse 3. Polysubstance abuse Dispo: Admit to [facility] via [facility] program This note was generated with [employer] dictation software. It may contain incorrectwords, spelling, and punctuation that were not noted in review of the chart prior to signing. Lab Data Labs: Laboratory Results - last 24 hr 10/18/24 10/18/24 16:45 16:57 WBC 10.3 RBC 4.35 L Hgb 14.8 Hct 42.0 MCV 96.6 H MCH 34.0 H MCHC 35.2 RDW Std Deviation 42.9 RDW Coeff of Jessica 12.2 Plt Count 536 H MPV 8.9 Immature Gran % (Auto) 0.400 Neut % (Auto) 81.9 H Lymph % (Auto) 11.1 L Trimble % (Auto) 5.0 Eos % (Auto) 0.5 Baso % (Auto) 1.1 H Absolute Neuts (auto) 8.5 H Absolute Lymphs (auto) 1.14 Nucleated RBC % 0 Sodium 138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 23, 2023 12:42am Note Date/Time March 22, 2023 1 0:17pm [facility] Medical Records Department [address] [place] [address] Emergency Department Summary 03/22/23 MR#: [id number] Acct: [id number] Name: KADE GONZALEZ Rep #:[id number] : 1995 27 From: Daquan Reid MD PCP: Care Physician,No Primary Status :ADM IN Location: [place] [address] Daquan Reid MD on [...] detox last year, then went through [facility]. [facility] Medical History Alcohol abuse Anxiety Asthma [...] prior records. He was seen here for and Marnie of last year. He did [...] discussed with Dr. Thomas for admission to [facility] for detox from alcohol. Patient [...] % (Auto) 58.3 Lymph % (Auto) 34.2 Trimble % (Auto) 6.3 Eos % (Auto) 0.1 [...] alcohol intoxication Disposition Disposition: Acute Care Hospital [facility] What to do if you have Problems For any increased pain, shortness of breath, bleeding, nausea or vomiting, chestpain, or any unexpected problems, contact your Primary Care Provider. Call [facility] ([phone]) or report to the closest Emergency Room. Call 911 if necessary. 03/23/2317 <Electronically signed by Daquan Reid MD> Cosigner Signature (if applicable): CC: No Primary Care Physician ~ Signed [facility] Work Phone: [phone]) 475-367306-27-[address] Albert [facility] August 07, 2022 9:19am Note Date/Time August 07, 2022 9:18 am [facility] Medical Records Department [address] [facility] [place] [address] Instructions for Home/Discharge Instructions 08/07/22917 MR#: [id number] Acct: [id number] Name: KADE GONZALEZ Rep #:[id number] : 1995 From: Carmelo Albert DO PCP: [...] DO; No Primary Care Physician ~ Signed [facility] Work Phone: 1(374) 977-482706-27-[address] Albert [facility] August 07, 2022 9:19am Note Date/Time August 07, 2022 9:19 am [facility] Medical Records Department [address] [place] [address] Discharge Summary 08/07/22918 MR#: [id number] Acct: [id number] Name: KADE GONZALEZ Rep #:[id number] : 1995 From: Carmelo Albert DO PCP: Care Physician,No Primary Status :ADM IN Location: [place] [address] Providers Date of Admission: 08/05/22 Primary Care [...] follow up with [facility] for inpatient treatment on 08/08 Given reported [...] Self Care Charges/Coding Visit Charges Inpatient E&M: 96059 Disch Hosp 08/07/22918 <Electronically signed by Carmelo Albert DO> Cosigner Signature (if applicable): CC: Dr. Carmelo Albert DO; No Primary Care Physician~ Signed [facility] Work Phone: 1(670) 947-691606-27-[address] Albert [facility] August 07, 2022 9:18am Note Date/Time August 07, 2022 8:02 am [facility] Medical Records Department [address] [place] [address] Progress Note - Hospitalist 08/07/22 0801 MR#: [id number] Acct: [id number] Name: KADE GONZALEZ Rep #:[id number] : 1995 From: Carmelo Albert DO PCP: Care Physician,No Primary Status :ADM IN Location: [place] [id number] Reason for Visit Reason for Visit: Diagnoses [...] follow up with [facility] at [facility] for inpatient treatment on 08/08 Given reported [...] Cosigner Signature (if applicable): CC: ~ Signed [facility] Work Phone: 1(519) 501-920506-26-[address] Albert [facility] August 06, 2022 12:45pm Note Date/Time August 06, 2022 8:25 am [facility] Medical Records Department [address] [place] [address] Progress Note - Hospitalist 08/06/22822 MR#: [id number] Acct: [id number] Name: KADE GONZALEZ Rep #:[id number] : 1995 From: Carmelo Albert DO PCP: Care Physician,No Primary Status :ADM IN Location: [place] [address] Reason for Visit Reason for Visit: Diagnoses [...] % (Auto) 56.8, Lymph % (Auto) 33.2, Trimble% (Auto) 8.3, Eos % (Auto) 0.3, Baso [...] follow up with [facility] at [facility] for inpatient treatment on 08/08 PLAN: Plan Chronic complicating conditions: * Polysubstance abuse-Patient admits to utilizing cocaine and methamphetamines as well-Recommend cessation-180 consultation * Tobacco abuse-Recommend cessation-Nicotine patch DVT prophylaxis -Low risk -Recommend early and frequent ambulation CODE STATUS -Full code Charges/Coding Visit Charges Inpatient E&M: 31343 Subs Hosp L1 08/06/22 1245 <Electronically signed by Carmelo Albert DO> Cosigner Signature (if applicable): CC: ~ Signed [facility] Work Phone: 1([phone]) 428-960606-25-[address] Ridley [facility] August 05, 2022 7:14pm Note Date/Time August 05, 2022 3:51 pm [facility] Medical Records Department [address] [place] [address] Emergency Department Summary 08/05/22 MR#: [id number] Acct: [id number] Name: KADE GONZALEZ Rep #:[id number] : 1995 26 From: Cadence CAMPA PCP: Care Physician,No Primary Status :[facility] <KATHERYN Mcdowell - Last Filed: 08/05/22 [...] <KATHERYN Mcdowell - Last Filed: 08/05/22 17:08> [facility] Medical History (Updated 08/05/22 @ 17:01 [...] <KATHERYN Mcdowell - Last Filed: 08/05/22 17:08> [facility] MDM Narrative Medical decision making narrative: [...] % (Auto) 56.8 Lymph % (Auto) 33.2 Trimble % (Auto) 8.3 Eos % (Auto) 0.3 [...] (Auto) Neut % (Auto) Lymph % (Auto) Trimble % (Auto) Eos % (Auto) Baso % [...] Ridley MD - Last Filed: 08/05/22 16:54> [facility] Lab Data Labs: Laboratory Results - last 24 hr 08/05/22 08/05/22 08/05/22 15:56 15:56 15:56 WBC 7.1 RBC 4.56 L Hgb 14.6 Hct 41.3 MCV 90.6 MCH 32.0 MCHC 35.4 RDW Std Deviation 38.1 RDW Coeff of Jessica 11.6 Plt Count 249 MPV 9.1 Immature Gran % (Auto) 0.400 Neut % (Auto) 56.8 Lymph % (Auto) 33.2 Trimble % (Auto) 8.3 Eos % (Auto) 0.3 [...] (Auto) Neut % (Auto) Lymph % (Auto) Trimble % (Auto) Eos % (Auto) Baso % [...] problems, contact your Primary Care Provider. Call [facility] ([phone]) or report to the closest Emergency Room. Call 911 if necessary. 08/05/221707 <Electronically signed by Cadence CAMPA> Cosigner Signature (if applicable): 08/05/221913 <Electronically signed by Fior Ridley MD> CC: No Primary Care Physician ~ Signed [facility] Work Phone: 1(516) 178-495706-25-2023 History and physical note Author Dr. Hirsch [facility] August 05, 2022 5:16pm Note Date/Time August 05, 2022 5:05 pm [facility] Medical Records Department [address] [place] [address] H&P Exam - Hospitalist 08/05/22 170 MR#: [id number] Acct: [id number] Name: KADE GONZALEZ Rep #:[id number] : 1995 From: Ashley Hirsch DO PCP: Care Physician,No Primary Status :ADM IN Location: [facility] OE255-4 HPI - General General Date of Admission: 08/05/22 Date of Service: 08/05/22 Chief Complaint: Desire for detoxification from alcohol HPI Narrative KADE GONZALEZ, is a 26 M who presented to the emergency department at [facility] on 08/05/2022 requesting detox from alcohol. [...] discharge is for readmission into inpatient rehab. [facility] Medical History No acute medical problems [...] % (Auto) 56.8, Lymph % (Auto) 33.2, Trimble% (Auto) 8.3, Eos % (Auto) 0.3, Baso [...] -Full code Charges/Coding Visit Charges Inpatient E&M: 60845 Init Hosp L2 08/05/22 1716 <Electronically signed by Ashley Hirsch DO> Cosigner Signature (if applicable): CC: Dr. Ashley Hirsch DO; No Primary Care Physician~ Signed [facility] Work Phone: Discharge summary Author Marcio Cardona [facility] May 01, 2023 6:26am Note Date/Time May 01, 2023 5:2 8am [facility] Medical Records Department [address] [place] [address] Emergency Department Summary 05/01/23 MR#: [id number] Acct: [id number] Name: KADE GONZALEZ Rep #:[id number] : 1995 27 From: Marcio Cardona MD [...] does not intend to do that again. [facility] Medical History (Updated 05/01/23 @ 05:48 [...] your Primary Care Provider. Call [facility] ([phone]) or report to the closest Emergency Room. Call 911 if necessary. 05/01/23625 <Electronically signed by Marcio Cardona MD> Cosigner Signature (if applicable): CC: No Primary Care Physician ~ Signed [facility] Work Phone: Discharge summary Author Colin Colon [facility] Note Date/Time October 02, 2024 7: 26am [facility] Medical Records Department [address] [place] [address] Emergency Department Summary 10/02/24 MR#: [id number] Acct: [id number] Name: KADE GONZALEZ Rep #:[id number] : 1995 28 From: Colin Colon DO [...] states he would prefer to go to [place] versus [place] or [place]. Therefore the case was [facility]. He agrees to accept the patient. [...] 76.7 H Lymph % (Auto) 14.6 L Trimble % (Auto) 7.1 Eos % (Auto) 0.5 [...] be considered as clinically warranted. Reading Location: [facility] Cervical Spine CT 10/02/24 05:15 IMPRESSION: Soft tissue emphysema in the left aspect of the neck. No CT evidence of an acute fracture or dislocation. Reading Location: [facility] Facial/Sinus 10/02/24 05:15 IMPRESSION: Mandibular right para-symphyseal and left mandibular angle/body fractures with related soft tissue edema and possible left master intramuscular hematoma as detailed. Reading Location: [facility] Management Discussion w/another healthcare provider: Fitness Teacher Discharge Plan Triage Chief Complaint: Head Injury ED Provider: Colin Colon Dx/Rx/DC Orders Clinical Impression: Mandible open fracture, History of alcohol abuse, Tobacco use, Alcohol abuse Prescriptions: No Action NK Primary Care Provider: Care Physician,No Primary Referrals: Care Physician,No Primary [Primary Care Provider] - Print Language: Liberian Disposition Disposition: Acute Care Hospital Discharge Location: [facility] What to do if you have Problems For any increased pain, shortness of breath, bleeding, nausea or vomiting, chestpain, or any unexpected problems, contact your Primary Care Provider. Call [facility] ([phone]) or report to the closest Emergency Room. Call 911 if necessary. 10/02/24725 <Electronically signed by Colin Colon DO> Cosigner Signature (if applicable): CC: No Primary Care Physician ~ Signed [facility] Work Phone: Evaluation note* Diagnosis Onset Date Resolution Status Alcohol abuse acute Desire for detoxification ac [facility] Work Phone: Evaluation note* Diagnosis Onset Date Resolution Status Acute alcohol intoxication a cute Acute hyperactive alcohol withdrawal delirium acute Desire for detoxification [facility] Work Phone: Evaluation note* Diagnosis Onset Date Resolution Status Acute hyperactive alcohol withdrawal delirium resolved Alcohol dependence acute Alcohol withdrawal acute [facility] Work Phone: Evaluation note* Diagnosis Onset Date Resolution Status Acute hyperactive alcohol withdrawal delirium resolved Alcohol withdrawal acute [facility] Work Phone: Evaluation note* Diagnosis Influenza A- Primary Influenza with other respiratory manifestations URI with cough and congestion Generalized body aches [facility]* Diagnosis Chest pain, unspecified type- Primary Methamphetamine abuse (HCC) Nondependent amphetamine or related acting sympathomimetic abuse, unspecified Alcohol abuse Nondependent alcohol abuse, unspecified drinking behavior Chest pain Unspecified chest pain Methamphetamine abuse (HCC) Nondependent amphetamine or related acting sympathomimetic abuse, unspecified Alcohol abuse Nondependent alcohol abuse, unspecified drinking behavior documented in this encounter [facility]* Diagnosis Mandible fracture (HCC)- Primary Closed fracture of unspecified site of mandible Closed fracture of mandible, unspecified laterality, unspecified mandibular site, initial encounter ([facility]) Alcohol use disorder, severe, dependence (HCC) Alcohol withdrawal syndrome without complication (HCC) Methamphetamine use (HCC) Nondependent amphetamine or related acting sympathomimetic abuse, unspecified Cocaine use Cannabis use, uncomplicated Cigarette nicotine dependence without complication Acute pain History of benzodiazepine use [facility] Diagnosis Mandible fracture (HCC)- Primary Closed fracture of unspecified site of mandible Closed fracture of mandible, unspecified laterality, unspecified mandibular site, initial encounter ([facility]) Trauma- Primary Injury, other and unspecified, [...] sympathomimetic abuse, unspecified [facility]* Diagnosis Mandible fracture (HCC)- Primary Closed fracture of unspecified site of mandible Closed fracture of mandible, unspecified laterality, unspecified mandibular site, initial encounter ([facility]) Closed fracture of mandible with routine healing, [...] (HCC) Unspecified psychosis [facility] Diagnosis Mandible fracture (HCC)- Primary Closed fracture of unspecified site of mandible Closed fracture of mandible, unspecified laterality, unspecified mandibular site, initial encounter ([facility]) Closed fracture of mandible with routine healing, [...] [facility]. Hirsch [facility] August 05, 2022 5:16pm Note Date/Time August 05, 2022 5:05 pm [facility] Medical Records Department [address] [place] [address] H&P Exam - Hospitalist 08/05/22 1701 MR#: [id number] Acct: [id number] Name: KADE GONZALEZ Rep #:[id number] : 1995 26 From: Ashley Hirsch DO PCP: Care Physician,No Primary Status :ADM IN Location: [facility] SR519-5 HPI - General General Date of Admission: 08/05/22 Date of Service: 08/05/22 Chief Complaint: Desire for detoxification from alcohol HPI Narrative KADE GONZALEZ, is a 26 M who presented to the emergency department at [facility] on 08/05/2022 requesting detox from alcohol. [...] discharge is for readmission into inpatient rehab. [facility] Medical History No acute medical problems [...] % (Auto) 56.8, Lymph % (Auto) 33.2, Trimble% (Auto) 8.3, Eos % (Auto) 0.3, Baso [...] -Full code Charges/Coding Visit Charges Inpatient E&M: 02741 Init Hosp L2 08/05/22 1716 <Electronically signed by Ashley Hirsch DO> Cosigner Signature (if applicable): CC: Dr. Ashley Hirsch DO; No Primary Care Physician~ Signed [facility] Work Phone: History and physical note Author Stan Thomas [facility] March 23, 2023 12:48am Note Date/Time March 23, 2023 12:18am [facility] Medical Records Department [address] [place] [address] H&P Exam - Hospitalist 03/23/23 0017 MR#: [id number] Acct: [id number] Name: KADE GONZALEZ Rep #:[id number] : 1995 27 From: Stan Bullock PCP: Care Physician,No Primary Status :ADM IN Location: [place] [address] HPI - General General Date of Admission: [...] including hematemesis melena or alcoholic liver disease [facility] Medical History Alcohol abuse Anxiety Asthma [...] % (Auto) 58.3, Lymph % (Auto) 34.2, Trimble% (Auto) 6.3, Eos % (Auto) 0.1, Baso [...] Serum alcohol was highat 212. CIWA monitor. chemical manager consulted.. 2. Chronic nicotine use/cigarette smoking: [...] % (Auto) 58.3, Lymph % (Auto) 34.2, Trimble% (Auto) 6.3, Eos % (Auto) 0.1, Baso [...] Alcohol 212.0 Charges/Coding Visit Charges Inpatient E&M: 14880 Init Hosp L3 03/23/23 0048 <Electronically signed by Stan Thomas MD> Cosigner Signature (if applicable): CC: Dr. Stan Thomas MD; No Primary Care Physician~ Signed [facility] Work Phone: History and physical note Author Jacquie Beckwith [facility] May 01, 2023 5:50am Note Date/Time May 01, 2023 5:3 3am [facility] Medical Records Department [address] [place] [address] H&P Exam - Hospitalist 05/01/23 0532 MR#: [id number] Acct: [id number] Name: KADE GONZALEZ Rep #:[id number] : 1995 27 From: Jacquie Beckwith MD [...] Asthma, Chronic migraines who presents to the [facility] ED on 05/01/23 withlast EtOH intake [...] administered phenobarbital 97.2 mg p.o. x 1. [facility] (Updated 05/01/23 @ 05:48 [...] Asthma, Chronic migraines who presents to the [facility] ED on 05/01/23 withlast EtOH intake reported prior to ED arrival but less than his normal with complaint of mild tremors and tactile disturbances otherwise no severe withdrawal symptoms. #1. Acute EtOH Withdrawal: Will admit to [place], routine labs obtained in the ED upon [...] type admission. Charges/Coding Visit Charges Inpatient E&M: 79219 Init Hosp L2 05/01/23 0550 <Electronically signed by Jacquie Beckwith MD> Cosigner Signature (if applicable): CC: Dr. Jacquie Beckwith MD; No Primary Care Physician~ Signed [facility] Work Phone: Hospital course Narrative No data available for this section [facility] Hospital Discharge instructions* Attachments The following attachments cannot be sent through Care Everywhere. * Chest Pain, Adult ED (Liberian) * Troponin Test (Liberian) * Drug Abuse Treatment (Liberian) * Alcohol Use Disorder ED (Liberian) * Polysubstance Use Disorder (Liberian) * Substance Use Disorder ED (Liberian) [facility] Additional Instructions Your exam would [...] infection permanent disability facial abnormality and even .[facility] Work Phone: Hospital Discharge instructionsAdditional Instructions [...] for further outpatient evaluation, pain control and management.[facility] Work Phone: Instructions* Attachments The following attachments cannot be sent through Care Everywhere. * Flu Discharge Instructions, Adult (Liberian) [facility]No reason for referral information [facility] Work Phone: Chief Complaint and Reason [...] Visit Admit Date Admitted to alcohol detoxification [facility] October 01, 2024 12:22am Chief Complaint [...] 3:01pm ETOH DETOX October 18, 2024 6:16pm Chief Complaint Admit Date ETOH DETOXIFICATION October 01, 2024 12 :22am ETOH DETOXIFICATION October 01, 2024 1: 51am alt loc October 02, 2024 4: 05am HEAD INJURY October 02, 2024 4: 54am ETOH DETOXIFICATION October 02, 2024 7: 14am jaw pain October 18, 2024 3:01pm ETOH DETOX October 18, 2024 6:40pm ETOH DETOX October 19, 2024 10:22am Reason for Visit Admit Date Admitted to alcohol detoxification juan josé r October 01, 2024 12:22am Admitted to alcohol detoxification juan josé r October 18, 2024 6:40pm Mandible fracture October 18, 2024 6:40pm Polysubstance abuse October 18, 2024 6:40pm Advance Directives No Advanced Directives Records Found Advance Directive Response Recorded Date/ Time Living Will No August 05, 2022 4:09pm Power of Camp Advisor No August 05 4:09pm Advance Directive Response Recorded Date/ Time Living Will No August 05, 2022 6:27pm Power of Camp Advisor No August 05 6:27pm Advance Directive Response Recorded Date/ Time Living Will No March 22 10:56pm Power of Camp Advisor No March 22, 2023 10:56pm Advance Directive Response Recorded Date/ Time Living Will No March 23 024 1:01am Power of Camp Advisor No March 23, 2023 1:01am Advance Directive Response Recorded Date/ Time Living Will No May 01, 2023 5:10am Power of Camp Advisor No April 30 5:10am Advance Directive Response Recorded Date/ Time Living Will No May 01, 2023 6:45am Power of Camp Advisor No April 30 6:45am Advance Directive Response Recorded Date/ Time Living Will No June 19, 2023 11 :38pm Power of Camp Advisor No June 19, 2023 11:38pm Advance Directive Response Recorded Date/ Time Do you have a Healthcare Power of Camp Advisor? No October 01, 2024 1:52am Advance Directive Response Recorded Date/ Time Do you have a Healthcare Power of Camp Advisor? No October 01, 2024 1:52am Do you have a Healthcare Power of Camp Advisor? No October 02, 2024 4:09am Advance Directive Response Recorded Date/ Time Do you have a Healthcare Power of Camp Advisor? No October 01, 2024 1:52am Do you have a Healthcare Power of Camp Advisor? No October 02, 2024 4:09am Do you have a Healthcare Power of Camp Advisor? No October 02, 2024 4:55am Date Activated [...] Do you have a Healthcare Power of Camp Advisor? No October 01, 2024 1:52am Do you have a Healthcare Power of Camp Advisor? No October 18, 2024 3:22pm Do you have a Healthcare Power of Camp Advisor? No October 02, 2024 4:09am Do you have a Healthcare Power of Camp Advisor? No October 02, 2024 4:55am Advance Directive Response Recorded Date/ Time Do you have a Healthcare Power of Camp Advisor? No October 01, 2024 1:52am Do you have a Healthcare Power of Camp Advisor? No October 18, 2024 3:22pm Do you have a Healthcare Power of Camp Advisor? No October 02, 2024 4:09am Do you have a Healthcare Power of Camp Advisor? No October 02, 2024 4:55am Do you have a Healthcare Power of Camp Advisor? No October 18, 2024 4:33pm Advance Directive Response Recorded Date/ Time Do you have a Healthcare Power of Camp Advisor? No October 01, 2024 1:52am Do you have a Healthcare Power of Camp Advisor? No October 18, 2024 3:22pm Do you have a Healthcare Power of Camp Advisor? No October 02, 2024 4:09am Do you have a Healthcare Power of Camp Advisor? No October 02, 2024 4:55am Do you have a Healthcare Power of Camp Advisor? No October 18, 2024 7:43pm Family History No Family History Records Found [...] Provider Active Star t: October 02, 2024 Seamer Elastic Band Relationship Specialty Start Date End Date No, Physician [facility] PCP - General 10/02/24 Seamer Elastic Band Relationship Specialty Start Date End Date No, Physician [facility] PCP - General 10/02/24 Seamer Elastic Band Relationship Specialty Start Date End Date No, Physician [facility] PCP - General 10/02/24 Seamer Elastic Band Relationship Specialty Start Date End Date No, Physician [facility] PCP - General 10/02/24 Team Status: [...] Attending Provider Active Start: October 18, 2024 Team Status: Inactive Member Role/Relationship Status Dates No Primary Care Physician Primary Care Provider Active Start: October 18, 2024 End: October 19, 2024 Dr. Bairon Dee DO Emergency Provider Active Start: October 18, 2024 End: October 19, 2024 Dr. Ingrid Reece MD Admit Provider Active Star t: October 18, 2024 End: October 19, 2024 Dr. Ingrid Reece MD Other Provider Active Star t: October 18, 2024 End: October 19, 2024 Dr. Pratik Carter MD Attending Provider Active Start: October 18, 2024 End: October 19, 2024 Team Status: Active Member Role/Relationship Status Dates No Primary Care Physician Primary Care Provider Active Start: October 19, 2024 Dr. Bairon Dee DO Emergency Provider Active Start: October 19, 2024 Dr. Ingrid Reece MD Admit Provider Active Star t: October 19, 2024 Dr. Ingrid Reece MD Other Provider Active Star t: October 19, 2024 Dr. Pratik Carter MD Attending Provider Active Start: October 19, 2024 Dr. Pratik Carter MD Other Provider Active Start: October 19, 2024 Goals (unrecognized section and content) Goals may be documented in a n alternate section No data available for this section (unrecognized sect ion and content) No Status Records FoundNo Status Records FoundNo Status Records FoundNo Status Records FoundNo Status Records FoundNo Status Records Found INFORMATION SOURCE (unrecogn ized section and content) DATE CREATED AUTHOR 06/28/2023 [facility] DATE CREATED AUTHOR AUTHOR'S ORGANIZ ATION 08/02/2023 [facility] DATE CREATED AUTHOR AUTHOR'S ORGANIZ ATION 06/26/2024 [facility] DATE CREATED AUTHOR AUTHOR'S ORGANIZ ATION 10/01/2024 [facility] DATE CREATED AUTHOR AUTHOR'S ORGANIZ ATION 10/19/2024 [facility] DATE CREATED AUTHOR AUTHOR'S ORGANIZ ATION 10/21/2024 [facility] Reason for Visit (unrecogniz ed section and content) Reason Comments Jaw Pain Specialty Diagnoses / Procedures Referred By Contac t Referred To Contact Diagnoses Fracture of mandible of other specified site, initial encounter for open fracture (HCC) Referral ID Status Reason Start Date Expiration Date Visits Re quested Visits Authorized [id number] 1 1 Specialty Diagnoses / Procedures Referred By Bahman t Referred To Contact Diagnoses Trauma Referral ID Status Reason Start Date Expiration Date Visits Re quested Visits Authorized [id number] 1 1 Reason Comments URI Cough /Body [...] Expiration Date Visits Re quested Visits Authorized [id number] 1 1 Specialty Diagnoses / Procedures Referred By Bahman t Referred To Contact Diagnoses Trauma Closed fracture of mandible with routine healing, unspecified laterality, unspecified mandibular site, subsequent encounter Referral ID Status Reason Start Date Expiration Date Visits Re quested Visits Authorized [id number] 1 1 Scheduled Active and Recently Administ [...] Priya Domínguez RN)1700 (Given - Provider: Priya Domínguez RN)2332 (Given - Provider: Fior Kelly RN) 0537 [...] 0537 (Given - Provider: Fior Kelly RN)0653 (APR Hold - Provider: Transfer Provider, Automatic - Reason: Patient not available)1120 (MAR Unhold - Provider: Transfer Provider, Automatic) qfgomfpl-yyf-rfdjlna gluconate liquid 15 mL 15 mL, Oral, [...] 225.9 mg = 3 mg/kg 75.3 kg [place] weight), Intramuscular, Every 3 hours, First dose [...] 301.2 mg = 4 mg/kg 75.3 kg [place] weight), Intramuscular, Once, On Sat10/02/24 at 1430, [...] (Automatically Held - Provider: Transfer Provider, Automatic)1120 ([facility] Unhold - Provider: Transfer Provider, Automatic) PHENobarbitaL tablet 32.4 mg(Linked Group 2) 32.4 mg, Oral, Every 24 hours, First dose on 10/05/24 at 2100, For 1 dose 0653 ([facility] Hold - Provider: Transfer Provider, Automatic - Reason: Patient not available)1120 ([facility] Unhold - Provider: Transfer Provider, Automatic) PHENobarbitaL [...] (Automatically Held - Provider: Transfer Provider, Automatic)1120 ([facility] Unhold - Provider: Transfer Provider, Automatic) senna-docusate [...] RN) 0848 (Given - Provider: Priya Domínguez RN)2047 (Given - Provider: Fior Kelly RN) 0653 (MAR Hold - Provider: Transfer Provider, Automatic - Reason: Patient not available)0900 (Automatically Held - Provider: Transfer Provider, Automatic)1120 ([facility] Unhold - Provider: Transfer Provider, Automatic) sodium [...] Provider, Automatic - Reason: Patient not available)1120 ([facility] Unhold - Provider: Transfer Provider, Automatic) Continuous [...] at 1029 1029 (Given - Provider: Scott Cardoan RN) iopamidoL (ISOVUE-370) 370 mg iodine /mL [...] Provider, Automatic - Reason: Patient not available)1120 ([facility] Unhold - Provider: Transfer Provider, Automatic) naloxone (NARCAN) injection 0.4 mg(Linked Group 4) 0.4 mg, Intravenous, As needed, opioid reversal, patient is pulseless, breathless, and unresponsive, Starting on Sat10/02/24 at 1041, Call a code first, then administer naloxone dose undiluted IV Push over 30 seconds. 0653 ([facility] Hold - Provider: Transfer Provider, Automatic - Reason: Patient not available)1120 ([facility] Unhold - Provider: Transfer Provider, Automatic) nicotine [...] (Given - Provider: Elo Campbell RN) 0653 ([facility] Hold - Provider: Transfer Provider, Automatic - Reason: Patient not available)1120 ([facility] Unhold - Provider: Transfer Provider, Automatic) ondansetron (ZOFRAN) injection 4 mg(Linked Group 5) 4 mg, Intravenous, Every 6 hours PRN, nausea, vomiting, Starting on Sat10/02/24 at 1239, [] Oral or IV - use oral route if tolerated. 0653 ([facility] Hold - Provider: Transfer Provider, Automatic - Reason: Patient not available)1120 ([facility] Unhold - Provider: Transfer Provider, Automatic) ondansetron [...] immediately prior to dose being administered. 0653 (MAR Hold - Provider: Transfer Provider, Automatic - Reason: Patient not available)1120 (MAR Unhold - Provider: Transfer Provider, Automatic) oxyCODONE [...] Priya Domínguez RN)1442 (Given - Provider: Priya Domínguez, RN)2047 (Given - Provider: Fior Kelly, KATERYNA) 0233 (Given - Provider: Fior Kelly, KATERYNA)0638 (Given - Provider: Fior Kelly RN)0653 ([facility] Hold - Provider: Transfer Provider, Automatic - Reason: Patient not available)1120 ([facility] Unhold - Provider: Transfer Provider, Automatic) PHENobarbital injection 65 mg 65 mg, Intramuscular, Every 6 hours PRN, Two of the following: SBP greater than 160 or DBP greater than 100, Significant agitation (RASS greater than +2), HR greater than 110, Diaphoresis, tremors, Hallucinations, Starting on Sat10/02/24 at 1343, For 102 hours, VESICANT 0653 ([facility] Hold - Provider: Transfer Provider, Automatic - Reason: Patient not available)1120 ([facility] Unhold - Provider: Transfer Provider, Automatic) sodium chloride (NS) 0.9 % irrigation solution (CANCELED) As needed, Starting on Sat10/04/24 at 0811, Intra-Procedure 0811 (Given - Provider: Marilou Vasquez MD - Comment: Given to sterile field) sodium chloride (PF) (NS) 0.9 % contrast line flush 10 mL(Linked Group 6) 10 mL, Intravenous, Once in imaging, contrast, Per assistant finance manager (Radiology) for line patency check prior to contrast administration, Starting on Sat10/02/24 at 1035, For 1 dose 1415 (Canceled Entry - Provider: Elo Campbell RN) 0653 ([facility] Hold - Provider: Transfer Provider, Automatic - Reason: Patient not available)1120 ([facility] Unhold - Provider: Transfer Provider, Automatic) sodium chloride (PF) (NS) 0.9 % contrast line flush 80 mL (COMPLETED)(Linked Group 6) 80 mL, Intravenous, Once in imaging, contrast, Per assistant finance manager (Radiology), Starting on Sat10/02/24 at 1035, For [...] 301.2 mg = 4 mg/kg 75.3 kg [place] weight), Intramuscular, Once, On Sat10/02/24 at 1430, [...] 225.9 mg = 3 mg/kg 75.3 kg [place] weight), Intramuscular, Every 3 hours, First dose [...] mL, Intravenous, Once in imaging, contrast, Per assistant finance manager (Radiology) for line patency check prior to contrast administration, Starting on Sat10/02/24 at 1035, For 1 dose And sodium chloride (PF) (NS) 0.9 % contrast line flush 80 mL (COMPLETED)Jump to med 80 mL, Intravenous, Once in imaging, contrast, Per assistant finance manager (Radiology), Starting on Sat10/02/24 at 1035, For 1 dose, 30 mL BEFORE contrast administration 50 mL AFTER contrast administration Scheduled Medication Order 10/03/2024 10/04/2024 10/05/2024 acetaminophen (TYLENOL) solution 650 mg 650 mg, Oral, Every 6 hours scheduled, First dose on Sat10/05/24 at 0000 2345 (Given - Provider: Ramos Car, KATERYNA) 0538 (Given - Provider: Pedro Rodriguez RN)1215 [...] On Sat10/04/24 at 1850, For 1 dose 185 (Given - Provider: Ramos Car RN) ketorolac [...] 135.54 mg = 1.8 mg/kg 75.3 kg [place] weight), Intramuscular, Every 3 hours, First dose [...] 180.72 mg = 2.4 mg/kg 75.3 kg [place] weight), Intramuscular, Once, On Sat10/04/24 at 2125, [...] or hepatic dysfunction 2130 (Given - Provider: Jeremais Huff RN) PHENobarbitaL tablet 32.4 mg(Linked Group [...] mg, Intravenous, Every morning, First dose on Sat10/04/24 at 2130, For [...] 180.72 mg = 2.4 mg/kg 75.3 kg [place] weight), Intramuscular, Once, On Sat10/04/24 at 2124, [...] 135.54 mg = 1.8 mg/kg 75.3 kg [place] weight), Intramuscular, Every 3 hours, First dose [...] (Not Given - Provider: Kaitlyn A Molina, HRIS COORDINATOR - Reason: Contraindicated)1247 (Given - Provider: Kaitlyn Vargas Molina, HRIS COORDINATOR)1523 (Given - Provider: Kaitlyn Alicia Molina, HRIS COORDINATOR)202 (Given - Provider: Ashtyn Hawkins HRIS COORDINATOR) 0047 (Given - Provider: Ashtyn Morejonmbi, HRIS COORDINATOR)0518 (Given - Provider: Ashtyn Hawkins HRIS COORDINATOR)1004 (Given - Provider: Kaitlyn Francoiso, HRIS COORDINATOR)1309 (Given - Provider: Kaitlyn Alicia Molina, HRIS COORDINATOR)1600 (Not Given - Provider: Kaitlyn Alicia Molina, HRIS COORDINATOR - Reason: Contraindicated) amoxicillin-clavulanate (AUGMENTIN) 875-125 mg per tablet 1 tablet 1 tablet, Oral, Every 12 hours scheduled, First dose on Sat10/09/24 at 2100, For 7 days, Indication: Skin/Soft Tissue Infection 2113 (Given - Provider: Lor Holm LPN) 0823 (Given - Provider: Kaitlyn Francoiso HRIS COORDINATOR)202 (Given - Provider: Ashtyn Hawkins LPN) 1005 (Given - Provider: Kaitlyn Francoiso HRIS COORDINATOR) chlorhexidine (PERIDEX) 0.12 % solution 15 mL 15 mL, Swab, 4 times daily, First dose on Sat10/08/24 at 0900, Do Not Swallow 1037 (Given - Provider: Jesus Barahona RN)1330 (Given - Provider: Jesus Barahona RN)1700 (Not Given - Provider: Jesus Barahona RN - Reason: Other)2108 (Given - Provider: Lor Holm LPN) 0823 (Given - Provider: Kaitlyn Francoiso, HRIS COORDINATOR)1248 (Given - Provider: Kaitlyn Francoiso, HRIS COORDINATOR)1700 (Given - Provider: Kaitlyn Alicia Francoiso, HRIS COORDINATOR)2026 (Given - Provider: Ashtyn Hawkins LPN) 1005 (Given - Provider: Kaitlyn Francoiso, HRIS COORDINATOR)1309 (Given - Provider: Kaitlyn Francoiso, HRIS COORDINATOR)1700 (Given - Provider: Kaitlyn Francoiso HRIS COORDINATOR) enoxaparin (LOVENOX) syringe 30 mg 30 mg, [...] 225.9 mg = 3 mg/kg 75.3 kg [place] weight), Oral, Every 3 hours, First dose [...] 225.9 mg = 3 mg/kg 75.3 kg [place] weight), Oral, Every 3 hours, First dose [...] 301.2 mg = 4 mg/kg 75.3 kg [place] weight), Oral, Once, On Sat10/09/24 at 0130, [...] Sat10/08/24 at 1640 0001 (Given - Provider: oLr Holm LPN) ibuprofen (ADVIL,MOTRIN) tablet 600 mg [...] 301.2 mg = 4 mg/kg 75.3 kg [place] weight), Oral, Once, On Sat10/09/24 at 0130, [...] 225.9 mg = 3 mg/kg 75.3 kg [place] weight), Oral, Every 3 hours, First dose [...] 225.9 mg = 3 mg/kg 75.3 kg [place] weight), Oral, Every 3 hours, First dose [...] - Reason: Transfer to a Procedural area)0924 ([facility] Hold - Provider: Transfer Provider, Automatic - Reason: Patient not available)1242 ([facility] Unhold - Provider: Transfer Provider, Automatic)1429 (Given [...] Arnie Akins RN - Reason: Patient/family refused)0924 ([facility] Hold - Provider: Transfer Provider, Automatic - Reason: Patient not available)1242 ([facility] Unhold - Provider: Transfer Provider, Automatic) folic acid (FOLVITE) tablet 1 mg 1 mg, Oral, Daily, First dose on Sat10/13/24 at 1000 1213 (Given - Provider: Arnie Akins RN - Comment: pt unavailable) 0900 (Due)0924 ([facility] Hold - Provider: Transfer Provider, Automatic - Reason: Patient not available)1242 ([facility] Unhold - Provider: Transfer Provider, Automatic) multivitamin (THERAGRAN) per tablet 1 tablet 1 tablet, Oral, Daily, First dose on Sat10/13/24 at 1000 1213 (Given - Provider: Arnie Akins RN - Comment: pt unavailable) 0900 (Due)0924 ([facility] Hold - Provider: Transfer Provider, Automatic - Reason: Patient not available)1242 ([facility] Unhold - Provider: Transfer Provider, Automatic) senna-docusate [...] Infection 1843 (New Bag - Provider: Key Daniel RN)2007 (Stopped - Provider: Ludwin Tucker RN) 0237 (New Bag - Provider: Sonia Mcduffie RN)0928 (New Bag - Provider: Arnie Akins RN)1043 (Stopped - Provider: Arnie Akins RN)2006 (New Bag - Provider: Romelia Grove RN - Comment: med not on the floor)2049 (Stopped - Provider: Romelia Grove RN) 040 (New Bag - Provider: Romelia Grove RN)0530 (Stopped - Provider: Romelia Grove RN)0924 (MAR Hold [...] lozenge. DO NOT CRUSH OR CHEW. 923 ([facility] Hold - Provider: Transfer Provider, Automatic - Reason: Patient not available)124 ([facility] Unhold - Provider: Transfer Provider, Automatic) ondansetron (ZOFRAN) injection 4 mg(Linked Group 2) 4 mg, Intravenous, Every 6 hours PRN, nausea, vomiting, Starting on Sat10/12/24 at 2152, [] Oral or IV - use oral route if tolerated. 923 ([facility] Hold - Provider: Transfer Provider, Automatic - Reason: Patient not available)124 ([facility] Unhold - Provider: Transfer Provider, Automatic) ondansetron (ZOFRAN-ODT) disintegrating tablet 4 mg(Linked Group 2) 4 mg, Oral, Every 6 hours PRN, nausea, vomiting, Starting on Sat10/12/24 at 2152, [] Oral or IV - use oral route if tolerated. Formulation requires tablet remain in sealed package until immediately prior to dose being administered. 923 ([facility] Hold - Provider: Transfer Provider, Automatic - Reason: Patient not available)124 ([facility] Unhold - Provider: Transfer Provider, Automatic) oxyCODONE [...] Arnie Akins RN)2325 (Given - Provider: Ashli Mendes, KATERYNA) [...] Romelia Grove RN)0642 (Stopped - Provider: Romelia Grove, KATERYNA)0924 (APR [...] BE BASED ON THE PRIMARY CLINICAL RECORDS. [facility] [employer], [facility]. provides no warranty or guarantee of the accuracy or completeness of information in this document.
--- NOTE | 2024-10-21 23:27 | CM.ED ---
Social Work SW met with patient who states that he is here for detox and that he left last time because he wasnt ready. Patient had a difficult time with conversation, keeping his eyes open and answering questions. Patient did verify that he does not currently have a home. Beatriz Kaur, COMMERCIAL FOOD INSTRUCTOR, RECORDS SPECIALIST
[2024-10-21 23:35] VITALS: PULSE 89; RESP 16; TEMP 36.5; O2SAT 97
[2024-10-21 23:46] VITALS: BP 98/76; PULSE 78; RESP 16; O2SAT 98
[2024-10-21] MEDS: 0.9% Normal Saline (1000mL) 1,000 ML 1000 ML IV (23:47)
[2024-10-21 23:59] LABS: Alcohol, Blood (Medical)-Serum 120.0 mg/dL (<=10.0)
[2024-10-22 00:03] LABS: AST(SGOT) 25 U/L (<=37); Alanine Aminotransfer ALT/SGPT 20 U/L (<=46); Albumin, Serum 4.0 g/dL (3.5-5.0); Alkaline Phosphatase 121 U/L (40-129); Anion Gap 15 (5-15); BUN 5 mg/dL (4-19); BUN/Creat Ratio 6.5 RATIO (10-20); Barbiturate Urine PRESUMPTIVE POSITIVE (< 200 ng/mL); Benzodiazepine Urine PRESUMPTIVE POSITIVE (< 200 ng/mL); Calcium,Total 9.3 mg/dL (7.6-11.0); Carbon Dioxide 23.0 mmol/L (21.0-32.0); Chloride 104 mmol/L (98-108); Estimated Creatinine Clearance 155.50 ml/min (50-250); Globulin 3.2 g/dL (2.2-4.2); Glucose 98 mg/dL (70-99); Magnesium 2.1 mg/dL (1.5-2.2); PCP Urine NEGATIVE (< 25 ng/mL); Potassium 4.0 mmol/L (3.3-5.1); THC Urine NEGATIVE (< 50 ng/mL)
--- NOTE | 2024-10-22 00:12 | HP.PCM.HOS_ITS ---
[facility] - General General Date of Admission: 10/22/24 Date of Service: 10/22/24 Chief Complaint: Requesting EtOH Detox. HPI Narrative VAL ANSARI, is a 28 M with a past medical history of tobacco abuse, polysubstance abuse; with UDS positive for opiates, barbiturates, amphetamines and cocaine last admission here October 18, 2024, chronic EtOH abuse; patient admitting to drinking ~6 to-15 tallboy beers daily, recent jaw fracture ~2 weeks ago; with subsequent infection and I&D treated with oral amoxicillin- clavulanate, history of depression with anxiety; currently not on treatment, history of asthma, history of migraine headaches, history of medical noncompliance with patient leaving EtOH detox here AMA on October 01, 2024 with most recent admission here from October 18, 2024 to October 19, 2024 for EtOH detox with no discharge summary in system indicating patient likely left again AMA who now re-presents to [facility] ER requesting EtOH detox. Mr. Ansari is a deliberately vague and tangential historian as he would not tell the ER physician when his last drink was prior to arrival or exactly how much/what he drank. He admits to nausea but he denies other significant symptoms. In the ER he was noted to have a HIRAM of 120 mg/dL present on admission consistent with acute EtOH intoxication in the setting of chronic EtOH abuse complicated by UDS positive for; oxycodone, barbiturates and benzodiazepines confirming continued polysubstance abuse. Due to patient's frequent pattern of admissions and noncompliance he discharging himself AMA the ER physician was asked to contact household appliance repairer to see exactly under what circumstances he left during his last admission because if he leaves again AMA he may be ineligible to be readmitted for the next 30 days according to current guidelines. Patient is apparently homeless and is apparently using the hospital as his flop house when he runs out of alcohol and other substances because he has nowhere else to go. Nevertheless, he was then admitted to the general medical floor for ongoing care for stay that is expected to extend beyond 2 midnights. PFSH Medical History Substance abuse Depression Smoker Anxiety and depression Alcohol dependence Asthma Migraines Polysubstance abuse Tobacco abuse Alcohol abuse Home Medications ?Medication ?Instructions ?Recorded ?Last Taken ?Type NK 10/22/24 Unknown History Allergy/AdvReac Type Severity Reaction Status Date / Time No Known Allergies Allergy Verified 10/21/24 21:46 Family History Uncle Alcohol abuse Paternal uncles. Grandfather Alcohol abuse Mother No problems noted. Father No problems noted. Surgical History No history of previous surgery Social History household members: none Smoking Status: Current every day smoker tobacco type: cigarettes and e- cigarettes alcohol intake: current details: 10 24 ounce beers daily and hard liquor shots substance use type: crack/cocaine and amphetamines ROS ROS Narrative Full review of systems was not possible due to patient's reluctance to answer questions. Vital Signs Vital Signs Vital Signs: 10/21/24 21:46 10/21/24 23:15 10/21/24 23:35 Temperature 98.2 F 97.7 F L Temperature Source Oral Temporal Pulse Rate 102 H 92 89 Respiratory Rate 18 19 H 16 Blood Pressure 137/85 H 104/55 L Blood Pressure Mean 102 71 Blood Pressure Source Monitor Blood Pressure Position Supine Blood Pressure Location Right Arm Pulse Ox 100 97 97 Oxygen Delivery Method Room Air Room Air Room Air Weight Weight: 173 lb 9.6 oz Body Mass Index (BMI) 24.2 Physical Exam Const alert, oriented x3, no apparent distress, average body habitus and healthy appearing General Appearance: cooperative HEENT normocephalic, head/scalp atraumatic, hearing grossly normal bilaterally and moist oral mucous membranes Eyes PERRL and EOMs intact bilaterally Neck no lymphadenopathy, supple and no JVD Resp normal respiratory effort, no retractions, no use of accessory muscles and clear to auscultation bilaterally Cardio regular rate and regular rhythm GI normal to inspection, nondistended, normoactive bowel sounds, soft to palpation, non-tender and non-distended Extremity normal to inspection, full ROM and no clubbing, cyanosis or edema Skin Skin Narrative: Patient is evidence of rash, abscess, wounds or jaundice. Neuro oriented x3, CN's II-XII intact bilaterally, moves all extremities and no focal motor deficits Sensorium / Orientation: awake, alert, oriented to person, oriented to place and oriented to time Speech: speech normal Psych affect normal Results Medical Records Data Attestation: I reviewed the patient's medical records Lab / Micro Data Attestation: I reviewed the patient's lab results. 10/21/24 23:27 10/21/24 23:27 Labs: Laboratory Results - last 24 hr 10/21/24 23:27: Sodium 142, Potassium 4.0, Chloride 104, Carbon Dioxide 23.0, Anion Gap 15, BUN 5, Creatinine 0.76, Estim Creat Clear Calc 155.50, Est GFR (MDRD) Non-Af 126, BUN/Creatinine Ratio 6.5 L, Glucose 98, Calcium 9.3, Magnesium 2.1, Total Bilirubin 0.25, AST 25, ALT 20, Alkaline Phosphatase 121, Total Protein 7.2, Albumin 4.0, Globulin 3.2, Albumin/Globulin Ratio 1.3, Urine Opiates Screen NEGATIVE, U Buprenorphine Qual NEGATIVE, Ur Oxycodone Screen PRESUMPTIVE POSITIVE, Urine Methadone Screen NEGATIVE, Urine Fentanyl Screen NEGATIVE, Ur Barbiturates Screen PRESUMPTIVE POSITIVE, Ur Phencyclidine Scrn NEGATIVE, Ur Amphetamines Screen NEGATIVE, U Benzodiazepines Scrn PRESUMPTIVE POSITIVE, Urine Cocaine Screen NEGATIVE, U Cannabinoids Screen NEGATIVE, Ethyl Alcohol 120.0 H Assessment & Plan Assessment/Plan (1) Acute alcohol intoxication with alcoholism: QUALIFIERS: Complication of substance-induced condition: u ncomplicated Qualified Code(s): F10.220 - Alcohol dependence with intoxication, uncomplicated (2) Polysubstance abuse: (3) Medical non-compliance: (4) Tobacco use: (5) Homeless: (6) Mandible fracture: QUALIFIERS: Encounter type: sequela Fracture type: closed L aterality: unspecified laterality Mandible location: unspecified site of mandible Qualified Code(s): S02.609S - Fracture of mandible, unspecified, sequela PLAN: Plan 1. Acute EtOH intoxication in the setting of Chronic EtOH abuse; with patient previously admitting to drinking ~6 -15 tallboy beers daily - Admit to general medical floor for treatment under the EtOH detoxification protocol primarily consisting of phenobarbital taper. EtOH cessation will be strongly encouraged. Finally, we will consult Case Management see this patient on rounds in the a.m. to help him be referred to the 180 program with help appreciated in advance. 2. UDS positive for; oxycodone, barbiturates and benzodiazepines confirming continued Polysubstance Abuse complicating #1 - Polysubstance Cessation will be strongly encouraged. He will be started on concomitant buprenorphine taper to prevent superimposed opiate withdrawal. 3. History of Medical Noncompliance with patient leaving EtOH detox here AMA on October 01, 2024 with most recent admission here from October 18, 2024 to October 19, 2024 for EtOH detox with no discharge summary in system indicating patient likely left again AMA compounding #1 & #2 - Noted. Patient will be warned he will likely not be readmitted if he leaves AMA again this admission. 4. Tobacco abuse adding to the burden of disease outlined from #1 - #3 - Tobacco Cessation will be strongly encouraged with Nicotine patch offered to control cravings. 5. Patient is apparently Homeless and is likely using the hospital as his flop house when he runs out of alcohol and other substances because he has nowhere else to go - Noted. 6. Recent jaw fracture ~2 weeks ago; with subsequent infection and I&D treated with oral amoxicillin-clavulanate - Maintain amoxicillin-clavulanate as previously prescribed to complete course. 7. History of depression with anxiety; currently not on treatment - Noted. 8. History of asthma - Noted with no evidence of acute flare at this time. Give nebulizers prn. 9. History of migraine headaches - Stable with no active complaints related to this issue at this time. 10. DVT prophylaxis - Heparin 5,000U sq BID. Patient will also be encouraged to be up ad [place]. Total time: Approximately (but not less than) 75 minutes. Charges/Coding Visit Charges Inpatient E&M: 99496 Init Hosp L3
[2024-10-22 00:19] LABS: Hematocrit 39.3 % (40-54); Hemoglobin 13.8 g/dL (13.0-16.5); Immature Granulocytes Count 0.030 X10^3/uL (0.0-0.0); Mean Corp Hgb Conc 35.1 g/dL (32-36); Mean Corpuscular Volume 96.6 fL (80-94); Mean Platelet Vol. 9.1 fl (6.2-12.0); NRBC Flagged by Analyzer 0 % (0-5); Platelet Count 443 K/mm3 (150-450); RBC Distribution Width CV 12.0 % (11.6-14.6); RBC Distribution Width SD 42.5 fl (35.1-43.9); Red Blood Count 4.07 M/mm3 (4.6-6.2); White Blood Count 5.1 K/mm3 (4.4-11.0)
--- OUTSIDE RECORDS SUMMARY | 2024-10-22 00:41 | XMS RPT_ITS | CCD ---
Author Organization [facility] CliniSynv Care Team Providers Care Professor Of Historical Theology Name Role Phone Dr. Fior Ridley Emergency Provider Care Physician, No Primary Primary Care Provider Unavailable Dr. Ashley Hirsch Admit Provider Dr. Ashley Hirsch Attending Provider Dr. Ashley Hirsch Other Provider Dr. Carmelo Albert Attending Provider [phone] Carmelo Albert Other Provider Care Physician, No Primary Primary Care Provider Unavailable MD Daquan Reid Emergency Provider Dr. Stan Thomas Admit Provider Dr. Stan Thomas Attending Provider Dr. Stan Thomas Other Provider [phone] Care Physician, No Primary Primary Care Provider Unavailable MD Daquan Reid Emergency Provider [phone] Stan Thomas Admit Provider Dr. [...] Consulting Unavailabl e NAHUM, SHELLIE Admitting Unavailable DEPPENKWAN Consulting Unavailable NO, PHYSICIAN Primary Care Unavailable ONE, TRAUMA Attending Unavailable MARILOU VASQUEZ Consulting Unavailabl e HOLLI DING Admitting Unavailable ONE, TRAUMA Consulting Unavailable LATONYA, JOSUE Consulting Unavailable ONE, TRAUMA Attending Unavailable NO, PHYSICIAN Primary Care [facility] Consulting Unavaila ble HOLLI DING Admitting [...] Raul RAYA, Dr. 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 Active naloxone (NARCAN) 4 mg/actuation [place] (4 sources) Start: naloxone (NARCAN) 4 mg/actuation [place] Administer 1 spray into one nostril for known or suspected opioid overdose. If patient worsens or does not respond, may repeat in 2-3 minutes. . 2 each 1 10/09/2024 Active Start: 10-09-2024 naloxone (NARC AN) 4 mg/actuation [place] Administer 1 spray into one nostril for [...] severe pain, Starting on Sat10/04/24 at 0046 ftkfoqyl-jng-fwxwes s gluconate liquid 15 mL (1 source) [...] For 102 hours, VESICANT polyethylene glycol 3350 92390 mg powder for oral solution (1 source) [...] mL, Intravenous, Once in imaging, contrast, Per manager clinical pharmacy (Radiology) for line patency check prior to [...] Auto (Unsp spec) [#/Vol] 1.68 10*3/uL 0.83-4.51 [facility] Absolute neutrophil countOrd ered By: Ingrid Reece on 10-19-2024 Neutrophils (Bld) [#/Vol] 3.5 10*3/uL 2.0-7.7 [facility] Anion gap in Serum or Plasma Ordered By: Ingrid Reece on 10-19-2024 Anion gap [Moles/Vol] 11 mmol/L 5-15 [facility] Automated lymphocyte count a s percentage of total leukocytesOrdered By: Ingrid Reece on 10-19-2024 Lymphocytes/100 WBC Auto (Unsp spec) 28.1 % 19- [facility] BUN/creatinine ratioOrdered By: Ingrid Reece on 10-19-2024 Urea nitrogen/Creatinine [Mass ratio] 20.3 mg/mg High 10-20 [facility] Basophil percentageOrdered B y: Ingrid Reece on 10-19-2024 Basophils/100 WBC (Bld) 1.3 % High 0-1 [facility] Bilirubin, totalOrdered By: Ingrid Reece on 10-19-2024 Bilirubin [Mass/Vol] 0.20 mg/dL 0.00-1.30 [facility] CBC W/Diff, Automatedon Absolute Lymph 1.68 X10 3/uL Normal 0.83-4.51 [facility] Comment on above: Performed By: #### L 100.0100, L500.4050 ####[facility] [address] [place], [address] Absolute Neut 3.5 X10 3/uL Normal 2.0-7.7 [facility] Comment on above: Performed By: #### L 100.0100, L500.4050 ####[facility] [address] [place], [address] Basophils/100 WBC (Bld) 1.3 % High 0-1 [facility] Comment on above: Performed By: #### L 100.0100, L500.4050 ####[facility] [address] [place], [address] Eosinophils/100 WBC (Bld) 2.7 % Normal 0-5 [facility] Comment on above: Performed By: #### L 100.0100, L500.4050 ####[facility] [address] [place], [address] Erythrocyte distribution width (RBC) [Ratio] 11.9 % Normal 11.6-14.6 [facility] Comment on above: Performed By: #### L 100.0100, L500.4050 ####[facility] [address] [place], [address] Hematocrit (Bld) [Volume fraction] 36.4 % Low 40-54 [facility] Comment on above: Performed By: #### L 100.0100, L500.4050 ####[facility] [address] [place], [address] Hemoglobin (Bld) [Mass/Vol] 12.8 g/dL Low 13.0-16.5 [facility] Comment on above: Performed By: #### L 100.0100, L500.4050 ####[facility] [address] [place], [address] IG% 0.500 Normal 0.0-0.9 [facility] Comment on above: Result Comment: IG% - Immature Granulocytes (promyelocytes, myelocytes and metamyelocytes) > 1% indicates that a LEFT SHIFT is Present. Performed By: #### L 100.0100, L500.4050 ####[facility] [address] [place], [address] Lymphocytes/100 WBC (Bld) 28.1 % Normal 19-41 [facility] Comment on above: Performed By: #### L 100.0100, L500.4050 ####[facility] [address] [place], [address] MCH (RBC) [Entitic mass] 34.0 pg High 27.0-32.0 [facility] Comment on above: Performed By: #### L 100.0100, L500.4050 ####[facility] [address] [place], [address] MCHC (RBC) [Mass/Vol] 35.2 g/dL Normal 32-36 [facility] Comment on above: Performed By: #### L 100.0100, L500.4050 ####[facility] [address] [place], [address] MCV (RBC) [Entitic vol] 96.6 fL High 80-94 [facility] Comment on above: Performed By: #### L 100.0100, L500.4050 ####[facility] [address] [place], [address] Monocytes/100 WBC (Bld) 9.2 % Normal 0-10 [facility] Comment on above: Performed By: #### L 100.0100, L500.4050 ####[facility] [address] [place], [address] Neutrophils/100 WBC (Bld) 58.2 % Normal 47-70 [facility] Comment on above: Performed By: #### L 100.0100, L500.4050 ####[facility] [address] [place], [address] Nucleated RBC (Bld) [#/Vol] 0 10*3/uL Normal 0-5 [facility] Comment on above: Performed By: #### L 100.0100, L500.4050 ####[facility] [address] [place], [address] Platelet mean volume (Bld) [Entitic vol] 9.1 fL Normal 6.2-12.0 [facility] Comment on above: Performed By: #### L 100.0100, L500.4050 ####[facility] [address] [place], [address] Platelets (Bld) [#/Vol] 424 10*3/uL Normal 150-450 [facility] Comment on above: Performed By: #### L 100.0100, L500.4050 ####[facility] [address] [place], [address] RBC (Bld) [#/Vol] 3.77 10*6/uL Low 4.6-6.2 [facility] Comment on above: Performed By: #### L 100.0100, L500.4050 ####[facility] [address] [place], [address] RDW SD 41.5 fl Normal 35.1-43.9 [facility] Comment on above: Performed By: #### L 100.0100, L500.4050 ####[facility] [address] [place], [address] WBC (Bld) [#/Vol] 6.0 10*3/uL Normal 4.4-11.0 [facility] Comment on above: Performed By: #### L 100.0100, L500.4050 ####[facility] [address] [place], [address] Carbon dioxide, total [Moles /volume] in Central venous bloodOrdered By: Ingrid Reece on 10-19-2024 CO2 [Moles/Vol] 23.5 mmol/L 21.0-32.0 [facility] Chloride assayOrdered By: Katheryn Reece on 10-19-2024 Chloride [Moles/Vol] 104 mmol/L 98-108 [facility] Comprehensive Metabolic Prof ilon 10-19-2024 Albumin [Mass/Vol] 3.4 g/dL Low 3.5-5.0 [facility] Comment on above: Performed By: #### L 100.0100, L500.4050 ####[facility] [address] [place], [address] Albumin/Globulin [Mass ratio] 1.3 {ratio} Normal 0.9-2.4 [facility] Comment on above: Performed By: #### L 100.0100, L500.4050 ####[facility] [address] [place], [address] ALK PHOS 101 U/L Normal 40-129 [facility] Comment on above: Performed By: #### L 100.0100, L500.4050 ####[facility] [address] [place], [address] ALT [Catalytic activity/Vol] 13 U/L Normal <=46 [facility] Comment on above: Performed By: #### L 100.0100, L500.4050 ####[facility] [address] [place], [address] AST [Catalytic activity/Vol] 19 U/L Normal <=37 [facility] Comment on above: Performed By: #### L 100.0100, L500.4050 ####[facility] [address] [place], [address] Bilirubin [Mass/Vol] 0.20 mg/dL Normal 0.00-1.30 [facility] Comment on above: Performed By: #### L 100.0100, L500.4050 ####[facility] [address] [place], [address] BUN/CRE 20.3 RATIO High 10-20 [facility] Comment on above: Performed By: #### L 100.0100, L500.4050 ####[facility] [address] [place], [address] Calcium [Mass/Vol] 8.5 mg/dL Normal 7.6-11.0 [facility] Comment on above: Performed By: #### L 100.0100, L500.4050 ####[facility] [address] [place], [address] Chloride [Moles/Vol] 104 mmol/L Normal 98-108 [facility] Comment on above: Performed By: #### L 100.0100, L500.4050 ####[facility] [address] [place], [address] CO2 [Moles/Vol] 23.5 mmol/L Normal 21.0-32.0 [facility] Comment on above: Performed By: #### L 100.0100, L500.4050 ####[facility] [address] [place], [address] Creatinine [Mass/Vol] 0.61 mg/dL Low 0.70-1.20 [facility] Comment on above: Performed By: #### L 100.0100, L500.4050 ####[facility] [address] [place], [address] ECRCL 193.74 ml/min Normal 50-250 [facility] Comment on above: Performed By: #### L 100.0100, L500.4050 ####[facility] [address] [place], [address] GAP 11 Normal 5-15 [facility] Comment on above: Performed By: #### L 100.0100, L500.4050 ####[facility] [address] [place], [address] GFR/1.73 sq M.predicted among non-blacks MDRD (S/P/Bld) [Vol rate/Area] 135 mL/min/{1.73_m2} Normal >60 [facility] Comment on above: Result Comment: mL/m in/1.73m2 CKD-EPI Creatinine Equation (2020) Performed By: #### L 100.0100, L500.4050 ####[facility] [address] [place], [address] Globulin (S) [Mass/Vol] 2.6 g/dL Normal 2.2-4.2 [facility] Comment on above: Performed By: #### L 100.0100, L500.4050 ####[facility] [address] [place], [address] Glucose [Mass/Vol] 174 mg/dL High 70-99 [facility] Comment on above: Performed By: #### L 100.0100, L500.4050 ####[facility] [address] [place], [address] Potassium [Moles/Vol] 3.6 mmol/L Normal 3.3-5.1 [facility] Comment on above: Performed By: #### L 100.0100, L500.4050 ####[facility] [address] [place], [address] Sodium [Moles/Vol] 138 mmol/L Normal 133-145 [facility] Comment on above: Performed By: #### L 100.0100, L500.4050 ####[facility] [address] [place], [address] T PROT 5.9 g/dL Normal 5.9-8.4 [facility] Comment on above: Performed By: #### L 100.0100, L500.4050 ####[facility] [address] [place], [address] Urea nitrogen [Mass/Vol] 12 mg/dL Normal 4-19 [facility] Comment on above: Performed By: #### L 100.0100, L500.4050 ####[facility] [address] [place], [address] Electrocardiogram reportOrde red By: Rafael Brooks on 10-19-2024 EKG study [facility] Cardiovascular Services [address] [place] [address] 12 Lead EKG 10/18/24 1645 MR#: [id number] Acct: [id number] Name: KADE GONZALEZ Rep #:[id number] : 1995 28 From: Rafael beavers MD Attending Dr: Dr. Pratik Carter MD Status: ADM IN Ordering Dr: Bairon Dee DO Date: 0 10/18/24 Location: [place] Sex: M C Admitted: 10/18/24 Test Reason : DETOX Blood Pressure : */* mmHG Vent. Rate : 94 BPM Atrial Rate : 94 BPM P-R Int : 122 ms QRS Dur : 84 ms QT Int : 350 ms P-R-T Axes : 61 73 19 degrees QTcB Int : 437 ms Normal sinus rhythm Normal ECG Confirmed by Rafael Brooks ([id number]), editorial specialist KELSEY BISHOP ([id number]) on 10/19/2024 9:52:49 AM Referred By: Confirmed By: Rafael Brooks 10/19/24 0952 Date _ Rafael Brooks MD CC: Dr. Pratik Carter MD; Dr. Bairon Dee DO; No Primary Care Physician ~ Signed [facility] Other Phone: Eosinophil percentageOrdered By: Ingrid Reece on 10-19-2024 Eosinophils/100 WBC (Bld) 2.7 % 0-5 [facility] Erythrocyte distribution wid th ratioOrdered By: Ingrid Reece on 10-19-2024 Erythrocyte distribution width (RBC) [Ratio] 11.9 % 11.6-14.6 [facility] Erythrocyte distribution wid th standard deviationOrdered By: Ingrid Reece on 10-19-2024 Erythrocyte distribution width (RBC) [Ratio] 41.5 fl 35.1-43.9 [facility] Glomerular filtration rate ( GFR) estimation/1.73 sq m using serum, plasma, or whole bOrdered By: Ingrid Reece on 10-19-2024 GFR/1.73 sq M.predicted among non-blacks MDRD (S/P/Bld) [Vol rate/Area] 135 mL/min/{1.73_m2} >60 [facility] Comment on above: mL/min/1.73m2 CKD-EP I Creatinine Equation (2020) Hematocrit Auto (Bld) [Volum e fraction]Ordered By: Ingrid Reece on 10-19-2024 Hematocrit (Bld) [Volume fraction] 36.4 % Low 40-54 [facility] Hemoglobin measurementOrdere d By: Ingrid Reece on 10-19-2024 Hemoglobin (Bld) [Mass/Vol] 12.8 g/dL Low 13.0-16.5 [facility] Immature granulocytes/100 WB C Auto (Bld)Ordered By: Ingrid Reece on 10-19-2024 Immature granulocytes/100 WBC (Bld) 0.500 % 0.0-0.9 [facility] Comment on above: IG% - Immature Granu locytes (promyelocytes, myelocytes and metamyelocytes) > 1% indicates that a LEFT SHIFT is Present. Laboratory - Chemistry and C hemistry - challengeOrdered By: Ingrid Reece on 10-19-2024 AST [Catalytic activity/Vol] 19 U/L <38 [facility] MCV (mean corpuscular volume ) determinationOrdered By: Ingrid Reece on 10-19-2024 MCV (RBC) [Entitic vol] 96.6 fL High 80-94 [facility] Mean corpuscular hemoglobin (MCH) determinationOrdered By: Ingrid Reece on 10-19-2024 MCH (RBC) [Entitic mass] 34.0 pg High 27.0-32.0 [facility] Mean corpuscular hemoglobin concentration (MCHC) determinationOrdered By: Ingrid Reece on 10-19-2024 MCHC (RBC) [Mass/Vol] 35.2 g/dL 32-36 [facility] Mean platelet volume determi nationOrdered By: Ingrid Reece on 10-19-2024 Platelet mean volume (Bld) [Entitic vol] 9.1 fL 6.2-12.0 [facility] Monocyte percentageOrdered B y: Ingrid Reece on 10-19-2024 Monocytes/100 WBC (Bld) 9.2 % 0-10 [facility] Neutrophil percentageOrdered By: Ingrid Reece on 10-19-2024 Neutrophils/100 WBC (Bld) 58.2 % 47-70 [facility] Nucleated red blood cell per centageOrdered By: Ingrid Reece on 10-19-2024 Nucleated RBC/100 WBC (Bld) [Ratio] 0 % 0-5 [facility] Platelet countOrdered By: Katheryn Reece on 10-19-2024 Platelets (Bld) [#/Vol] 424 10*3/uL 150-450 [facility] Potassium measurement (mass/ volume)Ordered By: Ingrid Reece on 10-19-2024 Potassium (Unsp spec) [Mass/Vol] 3.6 mmol/L 3.3-5.1 [facility] RBC Auto (Bld) [#/Vol]Ordere d By: Ingrid Reece on 10-19-2024 RBC (Bld) [#/Vol] 3.77 10*6/uL Low 4.6-6.2 [facility] Serum creatinine measurement (mass/volume)Ordered By: Ingrid Reece on 10-19-2024 Creatinine [Mass/Vol] 0.61 mg/dL Low 0.70-1.20 [facility] Serum globulin measurementOr dered By: Ingrid Reece on 10-19-2024 Globulin (S) [Mass/Vol] 2.6 g/dL 2.2-4.2 [facility] Serum glucose measurement (m ass/volume)Ordered By: Ingrid Reece on 10-19-2024 Glucose [Mass/Vol] 174 mg/dL High 70-99 [facility] Serum or plasma alanine saldaña otransferase (ALT) measurementOrdered By: Ingrid Reece on 10-19-2024 ALT [Catalytic activity/Vol] 13 U/L <47 [facility] Serum or plasma albumin gaetano urement (mass/volume)Ordered By: Ingrid Reece on 10-19-2024 Albumin [Mass/Vol] 3.4 g/dL Low 3.5-5.0 [facility] Serum or plasma albumin/glob ulin mass ratioOrdered By: Ingird Reece on 10-19-2024 Albumin/Globulin [Mass ratio] 1.3 {ratio} 0.9-2.4 [facility] Serum or plasma alkaline fareed sphatase measurementOrdered By: Ingrid Reece on 10-19-2024 ALP [Catalytic activity/Vol] 101 U/L 40-129 [facility] Serum or plasma calcium gaetnao urement (mass/volume)Ordered By: Ingrid Reece on 10-19-2024 Calcium [Mass/Vol] 8.5 mg/dL 7.6-11.0 [facility] Serum or plasma urea nitroge n measurement (mass/volume)Ordered By: Ingrid Reece on 10-19-2024 Urea nitrogen [Mass/Vol] 12 mg/dL 4-19 [facility] Sodium levelOrdered By: Hu Reece on 10-19-2024 Sodium [Moles/Vol] 138 mmol/L 133-145 [facility] Total proteinOrdered By: Deepika Reece on 10-19-2024 Protein [Mass/Vol] 5.9 g/dL 5.9-8.4 [facility] White blood cell (WBC) count Ordered By: Ingrid Reece on 10-19-2024 WBC (Bld) [#/Vol] 6.0 10*3/uL 4.4-11.0 [facility] 12 Lead EKGon 10-18-2024 12 Lead EKG [facility] Cardiovascular Services [address] [place] [address] 12 Lead EKG 10/18/24 1645 MR#: [id number] Acct: [id number] Name: KADE GONZALEZ Rep #: [id number] : 1995 28 From: Rafael Brooks [...] rhythm Normal ECG Confirmed by Rafael Brooks ([id number]), editorial specialist KELSEY BISHOP ([id number]) on 10/19/2024 9:52:49 AM Referred By: Confirmed By: Rafael Brooks 10/19/24 0952 Date Rafael Brooks MD CC: Dr. Pratik Carter MD; Dr. Bairon Dee DO; No Primary Care Physician Signed Normal [facility] ACETAMINOPHEN LEVELon 2024 ACETAMINOPHEN < Normal 0.0-30.0 [facility] Comment on above: Order Comment: Thera peutic Range: 10-30 mcg/mLPotentially Toxic: >200 mcg/mL (4 hours post dose) >100 mcg/mL (8 hours post dose) >50 mcg/mL (12 hours post dose) Performed By: #### 4 5033 #### [facility] [address], [place] [address] Travis Christensen M.D. [id number] ALCOHOL, [facility] ALCOHOL MEDICAL 315.0 mg/dL High <10.0 [facility] Comment on above: Performed By: #### 4 5866 #### [facility] [address], [place] [address] Travis Christensen M.D. [id number] Absolute lymphocyte countOrd ered By: Bairon Dee on 10-18-2024 Lymphocytes Auto (Unsp spec) [#/Vol] 1.14 10*3/uL 0.83-4.51 [facility] Absolute neutrophil countOrd ered By: Bairon Dee on 10-18-2024 Neutrophils (Bld) [#/Vol] 8.5 10*3/uL High 2.0-7.7 [facility] Alcohol, Blood (Medical)-Ser umon 10-18-2024 SERUM ETOH < 10.1 Normal <=10.0 [facility] Comment on above: Result Comment: This test is for medical purposes only. The legal definition of intoxication varies according to local law. Performed By: #### L 505.5000, L100.0100, L500.2500, L501.9100 ####[facility] [address] [place], [address] Amphetamine detection with 1 000 ng/mL as cutoffOrdered By: Bairon Dee on 10-18-2024 Amphetamines Screen method >1000 ng/mL Ql (U) Positive < 200 ng/mL [facility] Comment on above: If confirmation test ing is needed, a separate order will be required to send out testing to the reference laboratory. Anion gap in Serum or Plasma Ordered By: Bairon Dee on 10-18-2024 Anion gap [Moles/Vol] 17 mmol/L High 5-15 [facility] Automated lymphocyte count a s percentage of total leukocytesOrdered By: Bairon Dee on 10-18-2024 Lymphocytes/100 WBC Auto (Unsp spec) 11.1 % Low 19-41 [facility] BASIC METABOLIC PANELon 09-0 Anion gap [Moles/Vol] 17 mmol/L Normal 10-20 [facility] Comment on above: Order Comment: [facility] has implemented the eGFR calculation approach that does not have a coefficient for race that conforms to the NKF-ASN Task Force Recommendations. Performed By: #### 4 4014 #### [facility] [address] [place] [address] Pratik Dukes M.D. [id number] Calcium [Mass/Vol] 8.9 mg/dL Normal 8.4-10.2 [facility] Comment on above: Order Comment: [facility] has implemented the eGFR calculation approach that does not have a coefficient for race that conforms to the NKF-ASN Task Force Recommendations. Performed By: #### 4 4014 #### [facility] [address] [place] [address] Pratik Dukes M.D. [id number] Chloride [Moles/Vol] 106 mmol/L Normal 98-108 [facility] Comment on above: Order Comment: [facility] has implemented the eGFR calculation approach that does not have a coefficient for race that conforms to the NKF-ASN Task Force Recommendations. Performed By: #### 4 4014 #### [facility] [address] [place] [address] Pratik Dukes M.D. [id number] Creatinine [Mass/Vol] 0.64 mg/dL Normal 0.50-1.30 [facility] Comment on above: Order Comment: [facility] has implemented the eGFR calculation approach that does not have a coefficient for race that conforms to the NKF-ASN Task Force Recommendations. Performed By: #### 4 4014 #### [facility] [address] [place] [address] Pratik Dukes M.D. [id number] EGFR 133 mL/min/1.73 m2 Normal >=60 [facility] Comment on above: Order Comment: [facility] has implemented the eGFR calculation approach that does not have a coefficient for race that conforms to the NKF-ASN Task Force Recommendations. Result Comment: Luzma mated GFR was calculated using the 2020 CKD-EPI creatinine equation. Performed By: #### 4 4014 #### [address] [address] Pratik Dukes M.D. [id number] Glucose [Mass/Vol] 86 mg/dL Normal 65-99 [facility] Comment on above: Order Comment: [facility] has implemented the eGFR calculation approach that does not have a coefficient for race that conforms to the NKF-ASN Task Force Recommendations. Performed By: #### 4 4014 #### [facility] [address] [place] [address] Pratik Dukes M.D. [id number] HCO3 (Bld) [Moles/Vol] 23 mmol/L Normal 21-32 [facility] Comment on above: Order Comment: [facility] has implemented the eGFR calculation approach that does not have a coefficient for race that conforms to the NKF-ASN Task Force Recommendations. Performed By: #### 4 4014 #### [facility] [address] [place], [place] [address] Pratik Dukes M.D. [id number] Potassium [Moles/Vol] 4.4 mmol/L Normal 3.5-5.1 [facility] Comment on above: Order Comment: [facility] has implemented the eGFR calculation approach that does not have a coefficient for race that conforms to the NKF-ASN Task Force Recommendations. Performed By: #### 4 4014 #### [facility] [address] [place] [address] Pratik Dukes M.D. [id number] Sodium [Moles/Vol] 142 mmol/L Normal 135-145 [facility] Comment on above: Order Comment: [facility] has implemented the eGFR calculation approach that does not have a coefficient for race that conforms to the NKF-ASN Task Force Recommendations. Performed By: #### 4 4014 #### [facility] [address] [place] [address] Pratik Dukes M.D. [id number] Urea nitrogen [Mass/Vol] 5 mg/dL Low 8-25 [facility] Comment on above: Order Comment: [facility] has implemented the eGFR calculation approach that does not have a coefficient for race that conforms to the NKF-ASN Task Force Recommendations. Performed By: #### 4 [id number] #### [facility] [address] [place] [address] Pratik Dukes M.D. [id number] Urea nitrogen/Creatinine [Mass ratio] 7.8 mg/mg Low 10.0-20.0 [facility] Comment on above: Order Comment: [facility] has implemented the eGFR calculation approach that does not have a coefficient for race that conforms to the NKF-ASN Task Force Recommendations. Performed By: #### 4 4014 #### [facility] [address] [place] [address] Pratik Dukes M.D. [id number] BUN/creatinine ratioOrdered By: Bairon Dee on 10-18-2024 Urea nitrogen/Creatinine [Mass ratio] 13.3 mg/mg - [facility] Basic Metabolic Profile (BMP )on 10-18-2024 BUN/CRE 13.3 RATIO Normal - [facility] Comment on above: Performed By: #### L 505.5000, L100.0100, L500.2500, L501.9100 ####[facility] [address] [place], [address] Calcium [Mass/Vol] 9.1 mg/dL Normal 7.6-11.0 [facility] Comment on above: Performed By: #### L 505.5000, L100.0100, L500.2500, L501.9100 ####[facility] [address] [place], [address] Chloride [Moles/Vol] 101 mmol/L Normal 98-108 [facility] Comment on above: Performed By: #### L 505.5000, L100.0100, L500.2500, L501.9100 ####[facility] [address] [place], [address] CO2 [Moles/Vol] 19.8 mmol/L Low 21.0-32.0 [facility] Comment on above: Performed By: #### L 505.5000, L100.0100, L500.2500, L501.9100 ####[facility] [address] [place], [address] Creatinine [Mass/Vol] 0.66 mg/dL Low 0.70-1.20 [facility] Comment on above: Performed By: #### L 505.5000, L100.0100, L500.2500, L501.9100 ####[facility] [address] [place], [address] ECRCL 179.06 ml/min Normal 50-250 [facility] Comment on above: Performed By: #### L 505.5000, L100.0100, L500.2500, L501.9100 ####[facility] [address] [place], [address] GAP 17 High 5-15 [facility] Comment on above: Performed By: #### L 505.5000, L100.0100, L500.2500, L501.9100 ####[facility] [address] [place], [address] GFR/1.73 sq M.predicted among non-blacks MDRD (S/P/Bld) [Vol rate/Area] 132 mL/min/{1.73_m2} Normal >60 [facility] Comment on above: Result Comment: mL/m in/1.73m2 CKD-EPI Creatinine Equation (2020) Performed By: #### L 505.5000, L100.0100, L500.2500, L501.9100 ####[facility] [address] [place], [address] Glucose [Mass/Vol] 70 mg/dL Normal 70-99 [facility] Comment on above: Performed By: #### L 505.5000, L100.0100, L500.2500, L501.9100 ####[facility] [address] [place], [address] Potassium [Moles/Vol] 4.7 mmol/L Normal 3.3-5.1 [facility] Comment on above: Result Comment: Hemo lysis present, Results??could be affected. ?? Performed By: #### L 505.5000, L100.0100, L500.2500, L501.9100 ####[facility] [address] [place], [address] Sodium [Moles/Vol] 138 mmol/L Normal 133-145 [facility] Comment on above: Performed By: #### L 505.5000, L100.0100, L500.2500, L501.9100 ####[facility] [address] [place], [address] Urea nitrogen [Mass/Vol] 9 mg/dL Normal 4-19 [facility] Comment on above: Performed By: #### L 505.5000, L100.0100, L500.2500, L501.9100 ####[facility] [address] [place], [address] BUN Normal 4-19 [facility] Comment on above: Result Comment: DUPL ICATE Performed By: #### L 505.5000, L500.2500, L100.0100 #### [facility] [address] [place], [address] BUN/CRE Normal 10-20 [facility] Comment on above: Result Comment: DUPL ICATE Performed By: #### L 505.5000, L500.2500, L100.0100 #### [facility] [address] [place], [address] Calcium Normal 7.6-11.0 [facility] Comment on above: Result Comment: DUPL ICATE Performed By: #### L 505.5000, L500.2500, L100.0100 #### [facility] [address] [place], [address] CL Normal 98-108 [facility] Comment on above: Result Comment: DUPL ICATE Performed By: #### L 505.5000, L500.2500, L100.0100 #### [facility] [address] [place], [address] CO2 Normal 21.0-32.0 [facility] Comment on above: Result Comment: DUPL ICATE Performed By: #### L 505.5000, L500.2500, L100.0100 #### [facility] [address] [place], [address] CREAT,SERUM Normal 0.70-1.20 [facility] Comment on above: Result Comment: DUPL ICATE Performed By: #### L 505.5000, L500.2500, L100.0100 #### [facility] [address] [place], [address] eGFR Normal >60 [facility] Comment on above: Result Comment: DUPL ICATE Performed By: #### L 505.5000, L500.2500, L100.0100 #### [facility] [address] [place], [address] GAP Normal 5-15 [facility] Comment on above: Result Comment: DUPL ICATE Performed By: #### L 505.5000, L500.2500, L100.0100 #### [facility] [address] [place], [address] GLU Normal 70-99 [facility] Comment on above: Result Comment: DUPL ICATE Performed By: #### L 505.5000, L500.2500, L100.0100 #### [facility] [address] [place], [address] Potassium Normal 3.3-5.1 [facility] Comment on above: Result Comment: DUPL ICATE Performed By: #### L 505.5000, L500.2500, L100.0100 #### [facility] [address] [place], [address] Basic Metabolic Profile (BMP) Normal 133-145 [facility] Comment on above: Result Comment: DUPL ICATE Performed By: #### L 505.5000, L500.2500, L100.0100 #### [facility] [address] [place], [address] Basophil percentageOrdered B y: Bairon Dee on 10-18-2024 Basophils/100 WBC (Bld) 1.1 % High 0-1 [facility] Bilirubin Test strip Ql (U)O rdered By: Ingrid Reece on 10-18-2024 Bilirubin Ql (U) Negative Negative [facility] Bilirubin directOrdered By: Ingrid Reece on 10-18-2024 Bilirubin.direct [Mass/Vol] 0.32 mg/dL High 0.00-0.30 [facility] CBC W/Diff, Automatedon Absolute Lymph 1.14 X10 3/uL Normal 0.83-4.51 [facility] Comment on above: Performed By: #### L 505.5000, L100.0100, L500.2500, L501.9100 ####[facility] [address] [place], [address] Absolute Neut 8.5 X10 3/uL High 2.0-7.7 [facility] Comment on above: Performed By: #### L 505.5000, L100.0100, L500.2500, L501.9100 ####[facility] [address] [place], [address] Basophils/100 WBC (Bld) 1.1 % High 0-1 [facility] Comment on above: Performed By: #### L 505.5000, L100.0100, L500.2500, L501.9100 ####[facility] [address] [place], [address] Eosinophils/100 WBC (Bld) 0.5 % Normal 0-5 [facility] Comment on above: Performed By: #### L 505.5000, L100.0100, L500.2500, L501.9100 ####[facility] [address] [place], [address] Erythrocyte distribution width (RBC) [Ratio] 12.2 % Normal 11.6-14.6 [facility] Comment on above: Performed By: #### L 505.5000, L100.0100, L500.2500, L501.9100 ####[facility] [address] [place], [address] Hematocrit (Bld) [Volume fraction] 42.0 % Normal 40-54 [facility] Comment on above: Performed By: #### L 505.5000, L100.0100, L500.2500, L501.9100 ####[facility] [address] [place], [address] Hemoglobin (Bld) [Mass/Vol] 14.8 g/dL Normal 13.0-16.5 [facility] Comment on above: Performed By: #### L 505.5000, L100.0100, L500.2500, L501.9100 ####[facility] [address] [place], [address] IG% 0.400 Normal 0.0-0.9 [facility] Comment on above: Result Comment: IG% - Immature Granulocytes (promyelocytes, myelocytes and metamyelocytes) > 1% indicates that a LEFT SHIFT is Present. Performed By: #### L 505.5000, L100.0100, L500.2500, L501.9100 ####[facility] [address] [place], [address] Lymphocytes/100 WBC (Bld) 11.1 % Low 19-41 [facility] Comment on above: Performed By: #### L 505.5000, L100.0100, L500.2500, L501.9100 ####[facility] [address] [place], [address] MCH (RBC) [Entitic mass] 34.0 pg High 27.0-32.0 [facility] Comment on above: Performed By: #### L 505.5000, L100.0100, L500.2500, L501.9100 ####[facility] [address] [place], [address] MCHC (RBC) [Mass/Vol] 35.2 g/dL Normal 32-36 [facility] Comment on above: Performed By: #### L 505.5000, L100.0100, L500.2500, L501.9100 ####[facility] [address] [place], [address] MCV (RBC) [Entitic vol] 96.6 fL High 80-94 [facility] Comment on above: Performed By: #### L 505.5000, L100.0100, L500.2500, L501.9100 ####[facility] [address] [place], [address] Monocytes/100 WBC (Bld) 5.0 % Normal 0-10 [facility] Comment on above: Performed By: #### L 505.5000, L100.0100, L500.2500, L501.9100 ####[facility] [address] [place], [address] Neutrophils/100 WBC (Bld) 81.9 % High 47-70 [facility] Comment on above: Performed By: #### L 505.5000, L100.0100, L500.2500, L501.9100 ####[facility] [address] [place], [address] Nucleated RBC (Bld) [#/Vol] 0 10*3/uL Normal 0-5 [facility] Comment on above: Performed By: #### L 505.5000, L100.0100, L500.2500, L501.9100 ####[facility] [address] [place], [address] Platelet mean volume (Bld) [Entitic vol] 8.9 fL Normal 6.2-12.0 [facility] Comment on above: Performed By: #### L 505.5000, L100.0100, L500.2500, L501.9100 ####[facility] [address] [place], [address] Platelets (Bld) [#/Vol] 536 10*3/uL High 150-450 [facility] Comment on above: Performed By: #### L 505.5000, L100.0100, L500.2500, L501.9100 ####[facility] [address] [place], [address] RBC (Bld) [#/Vol] 4.35 10*6/uL Low 4.6-6.2 [facility] Comment on above: Performed By: #### L 505.5000, L100.0100, L500.2500, L501.9100 ####[facility] [address] [place], [address] RDW SD 42.9 fl Normal 35.1-43.9 [facility] Comment on above: Performed By: #### L 505.5000, L100.0100, L500.2500, L501.9100 ####[facility] [address] [place], [address] WBC (Bld) [#/Vol] 10.3 10*3/uL Normal 4.4-11.0 [facility] Comment on above: Performed By: #### L 505.5000, L100.0100, L500.2500, L501.9100 ####[facility] [address] [place], [address] Absolute Neut Normal 2.0-7.7 [facility] Comment on above: Result Comment: ORDE RED TWICE AT THE SAME TIME SEE 0907:[id number] Performed By: #### L 505.5000, L500.2500, L100.0100 #### [facility] [address] [place], [address] HCT Normal 40-54 [facility] Comment on above: Result Comment: ORDE RED TWICE AT THE SAME TIME SEE 0907:[id number] Performed By: #### L 505.5000, L500.2500, L100.0100 #### [facility] [address] [place], [address] HGB Normal 13.0-16.5 [facility] Comment on above: Result Comment: ORDE RED TWICE AT THE SAME TIME SEE 0907:[id number] Performed By: #### L 505.5000, L500.2500, L100.0100 #### [facility] [address] [place], [address] MCH Normal 27.0-32.0 [facility] Comment on above: Result Comment: ORDE RED TWICE AT THE SAME TIME SEE 0907:[id number] Performed By: #### L 505.5000, L500.2500, L100.0100 #### [facility] [address] [place], [address] MCHC Normal 32-36 [facility] Comment on above: Result Comment: ORDE RED TWICE AT THE SAME TIME SEE [id number]:[id number] Performed By: #### L 505.5000, L500.2500, L100.0100 #### [facility] [address] [place], [address] MCV Normal 80-94 [facility] Comment on above: Result Comment: ORDE RED TWICE AT THE SAME TIME SEE 906:[id number] Performed By: #### L 505.5000, L500.2500, L100.0100 #### [facility] [address] [place], [address] NEUT% Normal 47-70 [facility] Comment on above: Result Comment: ORDE RED TWICE AT THE SAME TIME SEE 0907:[id number] Performed By: #### L 505.5000, L500.2500, L100.0100 #### [facility] [address] [place], [address] PLT Normal 150-450 [facility] Comment on above: Result Comment: ORDE RED TWICE AT THE SAME TIME SEE 0907:[id number] Performed By: #### L 505.5000, L500.2500, L100.0100 #### [facility] [address] [place], [address] RBC Normal 4.6-6.2 [facility] Comment on above: Result Comment: ORDE RED TWICE AT THE SAME TIME SEE 0907:[id number] Performed By: #### L 505.5000, L500.2500, L100.0100 #### [facility] [address] [place], [address] RDW CV Normal 11.6-14.6 [facility] Comment on above: Result Comment: ORDE RED TWICE AT THE SAME TIME SEE 07:[id number] Performed By: #### L 505.5000, L500.2500, L100.0100 #### [facility] [address] [place], [address] RDW SD Normal 35.1-43.9 [facility] Comment on above: Result Comment: ORDE RED TWICE AT THE SAME TIME SEE 0907:[id number] Performed By: #### L 505.5000, L500.2500, L100.0100 #### [facility] [address] [place], [address] WBC Normal 4.4-11.0 [facility] Comment on above: Result Comment: ORDE RED TWICE AT THE SAME TIME SEE 906:[id number] Performed By: #### L 505.5000, L500.2500, L100.0100 #### [facility] [address] [place], [address] CBC WITH AUTO DIFFERENTIALon 10-18-2024 AUTO NRBC 0.0 % Normal [facility] Comment on above: Performed By: #### L [id number] #### [facility] [address] [place], [place] [address] Travis Christensen M.D. [id number] AUTO NRBC ABS COUNT 0.00 K/mcL Normal 0.00-0.00 [facility] Comment on above: Performed By: #### L [id number] #### [facility] [address] [address] Travis Christensen M.D. [id number] BASOPHILS ABSOLUTE COUNT 0.14 K/mcL Normal 0.00-0.30 [facility] Comment on above: Performed By: #### L [id number] #### [facility] [address] [address] Travis Christensen M.D. [id number] Basophils/100 WBC (Bld) 1.3 % Normal [facility] Comment on above: Performed By: #### L [id number] #### [facility] [address] [address] Travis Christensen M.D. [id number] Eosinophils (Bld) [#/Vol] 0.16 10*3/uL Normal 0.00-0.50 [facility] Comment on above: Performed By: #### L [id number] #### [facility] [address] [address] Travis Christensen M.D. [id number] Eosinophils/100 WBC (Bld) 1.5 % Normal [facility] Comment on above: Performed By: #### L [id number] #### [facility] [address] [address] Travis Christensen M.D. [id number] Erythrocyte distribution width (RBC) [Ratio] 12.3 % Normal 11.6-14.8 [facility] Comment on above: Performed By: #### L [id number] #### [facility] [address] [address] Travis Christensen M.D. [id number] Hematocrit (Bld) [Volume fraction] 42.2 % Normal 41.0-53.0 [facility] Comment on above: Performed By: #### L [id number] #### [facility] [address] [address] Travis Christensen M.D. [id number] Hemoglobin (Bld) [Mass/Vol] 14.0 g/dL Normal 13.5-17.5 [facility] Comment on above: Performed By: #### L [id number] #### [facility] [address] [id number] Travis Christensen M.D. [id number] IG ABSOLUTE 0.06 K/mcL Normal 0.00-0.30 [facility] Comment on above: Performed By: #### L [id number] #### [facility] [address] [address] Travis Christensen M.D. [id number] IG PERCENT 0.50 % Normal [facility] Comment on above: Result Comment: The IG parameter is the percentage of metamyelocytes, myelocytes and promyelocytes. An immature granulocyte count (IG) of 1% or more suggests the possibility of infection, an IG count of 3% is very likely related to an infection. Performed By: #### L [id number] #### [place] [address] [address] Travis Christensen M.D. [id number] Lymphocytes (Bld) [#/Vol] 2.58 10*3/uL Normal 0.90-4.00 [facility] Comment on above: Performed By: #### Silvina [id number] #### [facility] [address] [address] Travis Christensen M.D. [id number] Lymphocytes/100 WBC (Bld) 23.6 % Normal [facility] Comment on above: Performed By: #### Silvina [id number] #### [place] [address] [address] Travis Christensen M.D. [id number] MCH (RBC) [Entitic mass] 33.3 pg Normal 26.0-34.0 [facility] Comment on above: Performed By: #### L [id number] #### [facility] [address] [address] Travis Christensen M.D. [id number] MCV (RBC) [Entitic vol] 100.2 fL High 80.0-100.0 [facility] Comment on above: Performed By: #### Silvina [id number] #### [place] [address] [address] Travis Christensen M.D. [id number] MEAN CORPUSCULAR HEMOGLOBIN CONC 33.2 g/dL Normal 31.0-37.0 [facility] Comment on above: Performed By: #### Silvina [id number] #### [facility] [address] [address] Travis Christensen M.D. [id number] Monocytes (Bld) [#/Vol] 0.50 10*3/uL Normal 0.30-0.90 [facility] Comment on above: Performed By: #### L [id number] #### [facility] [address] [address] Travis Christensen M.D. [id number] Monocytes/100 WBC (Bld) 4.6 % Normal [facility] Comment on above: Performed By: #### Silvina [id number] #### [facility] [address] [address] Travis Christensen M.D. [id number] NEUTROPHILS ABSOLUTE COUNT 7.50 K/mcL High 1.70-7.00 [facility] Comment on above: Performed By: #### L [id number] #### [facility] [address] [address] Travis Christensen M.D. [id number] Neutrophils/100 WBC (Bld) 68.5 % Normal [facility] Comment on above: Performed By: #### L [id number] #### [facility] [address] [address] Travis Christensen M.D. [id number] Platelet mean volume (Bld) [Entitic vol] 9.0 fL Low 9.4-12.4 [facility] Comment on above: Performed By: #### L [id number] #### [facility] [address] [address] Travis Christensen M.D. [id number] Platelets (Bld) [#/Vol] 550 10*3/uL High 150-400 [facility] Comment on above: Performed By: #### L [id number] #### [facility] [address] [address] Travis Christensen M.D. [id number] RBC (Bld) [#/Vol] 4.21 10*6/uL Low 4.50-5.90 [facility] Comment on above: Performed By: #### L [id number] #### [facility] [address], [place] [address] Travis Christensen M.D. [id number] WBC (Bld) [#/Vol] 10.94 10*3/uL Normal 4.50-11.00 [facility] Comment on above: Performed By: #### L [id number] #### [facility] [address], [place] [address] Travis Christensen M.D. [id number] CONSULTon 10-18-2024 CONSULT --- Attestation signed by Marilou Vasquez MD at 10/18/2024 9:[address] scan reviewed. I agree with the resident note. PLASTIC SURGERY CONSULT NOTE Patient Name: Kade Gonzalez Admit Date: [id number] MR #: [id number] : 1995 Assessment and Plan: Kade Gonzalez [...] SCREW REMOVAL; Surgeon: Marilou Vasquez MD; Location: [facility] Main OR; Service: Plastics; Laterality: N/A; INCISION AND DRAINAGE HEAD/NECK Left 10/14/2024 Procedure: LEFT MANDIBLE INCISION AND DRAINAGE; Surgeon: Marilou Vasquez MD; Location: [facility] Main OR; Service: Plastics; Laterality: Left; ORIF MANDIBLE MAXILLA Bilateral 10/04/2024 Procedure: OPEN REDUCTION INTERNAL FIXATION MANDIBLE MAXILLA; Surgeon: Marilou Vasquez MD; Location: [facility] Main OR; Service: Plastics; Laterality: [...] Do not swallow naloxone (NARCAN) 4 mg/actuation [place] Administer 1 spray into one nostril for [...] the thoracic or lumbar spine. Workstation ID: [id number] Dictated by: RACHEL THOMAS on SatOct 18, 2024 5:34:32 AM EDT Transcribed by: RACHEL THOMAS on SatOct 18, 2024 5:34:32 AM EDT Finalized by: RACHEL THOMAS on [place] Oct 18, 2024 5:34:32 AM EDT [facility] Comment on above: Order Comment: [...] malalignment of the cervical spine. Workstation ID: [id number] Dictated by: EMELY REVELES on SatOct 18, 2024 5:06:12 AM EDT Transcribed by: EMELY REVELES on SatOct 18, 2024 5:06:12 AM EDT Finalized by: EMELY REVELES on SatOct 18, 2024 5:06:12 AM EDT [facility] Comment on above: Order Comment: [...] malalignment of the cervical spine. Workstation ID: [id number] Dictated by: EMELY REVELES on SatOct 18, 2024 5:06:12 AM EDT Transcribed by: EMELY REVELES on SatOct 18, 2024 5:06:12 AM EDT Finalized by: EMELY REVELES on SatOct 18, 2024 5:06:12 AM EDT [facility] Comment on above: Order Comment: [...] the thoracic or lumbar spine. Workstation ID: [id number] Dictated by: RACHEL THOMAS on SatOct 18, 2024 5:34:32 AM EDT Transcribed by: RACHEL THOMAS on SatOct 18, 2024 5:34:32 AM EDT Finalized by: RACHEL THOMAS on SatOct 18, 2024 5:34:32 AM EDT [facility] Comment on above: Order Comment: Injur y/Trauma or Illness?:Injury/TraumaHow long have you had these symptoms (acute/chronic)?:AcuteReason for exam?:Head trauma, moderate-severeType of Exam?:InitialMechanism of injury?:Head trauma, moderate-severe Carbon dioxide, total [Moles /volume] in Central venous bloodOrdered By: Bairon Dee on 10-18-2024 CO2 [Moles/Vol] 19.8 mmol/L Low 21.0-32.0 [facility] Chloride assayOrdered By: Swapna Dee on 10-18-2024 Chloride [Moles/Vol] 101 mmol/L 98-108 [facility] DRUGS OF ABUSE SCREEN, URINE on [...] Detected Performed By: #### 4 [id number] #### [facility] [address] [address] Travis Christensen M.D. [id number] BARBITURATE SCREEN URINE Positive Abnormal None Detected [...] Detected Performed By: #### 4 [id number] #### [facility] [address] [address] Travis Christensen M.D. [id number] BENZODIAZEPINE SCREEN, URINE Not detected Normal None [...] Detected Performed By: #### 4 [id number] #### [facility] [address] [address] Travis Christensen M.D. [id number] BUPRENORPHINE, URINE Not detected Normal None Detected [...] Detected Performed By: #### 4 [id number] #### [facility] [address] [address] Travis Christensen M.D. [id number] CANNABINOID SCREEN URINE Not detected Normal None [...] Detected Performed By: #### 4 [id number] #### [facility] [address] [address] Travis Christensen M.D. [id number] COCAINE, SCREEN URINE Not detected Normal None [...] Detected Performed By: #### [id number] #### [facility] [address] [address] Travis Christensen M.D. [id number] FENTANYL, URINE Not detected Normal None Detected [...] Detected Performed By: #### [id number] #### [facility] [address] [address] Travis Christensen M.D. [id number] METHADONE SCREEN, URINE Not detected Normal None [...] Detected Performed By: #### [id number] #### [facility] [address], [place] [address] Travis Christensen M.D. [id number] OPIATE SCREEN URINE Not detected Normal None [...] Detected Performed By: #### 4 [id number] #### [facility] [address], [place] [address] Travis Christensen M.D. [id number] OXYCODONE SCREEN, URINE Not detected Normal None [...] Detected Performed By: #### 4 [id number] #### [facility] [address], [place] [address] Travis Christensen M.D. [id number] ED Prov Noteon 10-18-2024 ED Prov Note ED PROVIDER NOTE [facility] EMERGENCY DEPARTMENT NAME: Kade Gonzalez AGE: 28 y.o. : 1995 VISIT DATE: 10/18/2024 CSN: [id number] PCP: No, Physician Chief Complaint Patient presents with Facial Injury HPI/MDM: Kade Gonzalez is a 28 y.o. male who has a past medical history of Alcohol dependence (HCC), Anxiety, Anxiety and depression, Asthma, Depression, Migraines, Substance abuse (HCC), and Tobacco abuse., coming in for Facial Injury. [facility] Medical Decision Making ED Course as of [...] Course User Index [RJ] Anaid Aguirre MD [facility] Data History: Past Medical History: Diagnosis Date Alcohol dependence (HCC) Anxiety Anxiety and depression Asthma Depression Migraines Substance abuse (HCC) Tobacco abuse Past Surgical History: Procedure Laterality Date ARCHBAR REMOVAL N/A 10/14/2024 Procedure: MAXILLOMANDIBULAR FIXATION SCREW REMOVAL; Surgeon: Marilou Vasquez MD; Location: [facility] Main OR; Service: Plastics; Laterality: N/A; INCISION AND DRAINAGE HEAD/NECK Left 10/14/2024 Procedure: LEFT MANDIBLE INCISION AND DRAINAGE; Surgeon: Marilou Vasquez MD; Location: [facility] Main OR; Service: Plastics; Laterality: Left; ORIF MANDIBLE MAXILLA Bilateral 10/04/2024 Procedure: OPEN REDUCTION INTERNAL FIXATION MANDIBLE MAXILLA; Surgeon: Marilou Vasquez MD; Location: [facility] Main OR; Service: Plastics; Laterality: [...] Do not swallow naloxone (NARCAN) 4 mg/actuation [place] Administer 1 spray into one nostril for [...] Department Summary on 10-18-2024 Emergency Department Summary [facility] Medical Records Department [address] [place] [address] Emergency Department Summary 10/18/24 MR#: [id number] Acct: [id number] Name: KADE GONZALEZ Rep #: [id number] : 1995 28 From: Bairon Dee DO PCP: Care Physician,No Primary Status:ADM IN Location: [address] History of Present Illness Chief Complaint: [...] 100 100 Oxygen Delivery Method Room Air [facility] Narrative Medical decision making narrative: HISTORY OF [...] reviewed, Vital signs reviewed Constitutional: please see [facility] HENT: MMM Eyes: Pupils equal round [...] from others: none Consults: Hospitalist (Dr. Reece) [facility] Narrative: Patient was initially mildly tachycardic [...] tox cream (more content not included)... Normal [facility] Emergency Department Summary [facility] Medical Records Department [address] [place] [address] Emergency Department Summary 10/18/24 MR#: [id number] Acct: [id number] Name: KADE GONZALEZ Rep #: [id number] 1 : 1995 28 From: Bairon Dee [...] reviewed, Vital signs reviewed Constitutional: please see [facility] HENT: MMM, surgical scars noted over [...] History obtained from others: none Consults: none [facility] Narrative: Patient was initially hemodynamically stable, [...] Discharge home This note was generated with [employer] dictation software. It may contain incorrect words, spelling, and punctuation that w (more content not included)... Normal [facility] Eosinophil percentageOrdered By: Bairon Dee on 10-18-2024 Eosinophils/100 WBC (Bld) 0.5 % 0-5 [facility] Erythrocyte distribution wid th ratioOrdered By: Bairon Dee on 10-18-2024 Erythrocyte distribution width (RBC) [Ratio] 12.2 % 11.6-14.6 [facility] Erythrocyte distribution wid th standard deviationOrdered By: Baiorn Dee on 10-18-2024 Erythrocyte distribution width (RBC) [Ratio] 42.9 fl 35.1-43.9 [facility] Glomerular filtration rate ( GFR) estimation/1.73 sq m using serum, plasma, or whole bOrdered By: Bairon Dee on 10-18-2024 GFR/1.73 sq M.predicted among non-blacks MDRD (S/P/Bld) [Vol rate/Area] 132 mL/min/{1.73_m2} >60 [facility] Comment on above: mL/min/1.73m2 CKD-EP I Creatinine Equation (2020) H AND P Exam - [facility] 10-18-2024 H&P Exam - Hospitalist [facility] Medical Records Department [address] [place] [address] H P Exam - Hospitalist 10/18/24 1840 MR#: [id number] Acct: [id number] Name: KADE GONZALEZ Rep #: [id number] 7 : 1995 28 From: Ingrid Reece MD PCP: Care Physician,No Primary Status:ADM IN Location: [facility] CE360-5 HPI - General General Date of Admission: 10/18/24 Date of Service: 10/18/24 Chief Complaint: requesting alcohol detox HPI Narrative KADE GONZALEZ, is a 28-year-old male history of alcohol abuse, polysubstance abuse, tobacco use, jaw fracture presented [facility] ED 10/18/2024 for alcohol detox. Notably [...] denies any drainage from area of surgery. [facility] Medical History (Updated 10/18/24 @ 19:55 by [...] Blood Pres (more content not included)... Normal [facility] HEPATIC FUNCTION PANELon Albumin [Mass/Vol] 4.1 g/dL Normal 3.2-5.2 [facility] Comment on above: Performed By: #### 4 [id number] #### [facility] [address] [address] Travis Christensen M.D. [id number] ALP [Catalytic activity/Vol] 118 U/L Normal 40-140 [facility] Comment on above: Performed By: #### 4 [id number] #### [facility] [address] [id number] Travis Christensen M.D. [id number] ALT [Catalytic activity/Vol] 19 U/L Normal 0-50 U/L [facility] Comment on above: Performed By: #### 4 [id number] #### [facility] [address] [address] Travis Christensen M.D. [id number] AST [Catalytic activity/Vol] 25 U/L Normal 0-50 U/L [facility] Comment on above: Performed By: #### 4 [id number] #### [facility] [address] [address] Travis Christensen M.D. [id number] Bilirubin [Mass/Vol] 0.2 mg/dL Normal 0.0-1.3 [facility] Comment on above: Performed By: #### 4 [id number] #### [facility] [address] [address] Travis Christensen M.D. [id number] BILIRUBIN, DIRECT < Normal 0.0-0.4 [facility] Comment on above: Performed By: #### 4 [id number] #### [facility] [address] [address] Travis Christensen M.D. [id number] Protein [Mass/Vol] 7.7 g/dL Normal 6.0-8.0 [facility] Comment on above: Performed By: #### 4 [id number] #### [facility] [address] [address] Travis Christensen M.D. [id number] Hematocrit Auto (Bld) [Volum e fraction]Ordered By: Bairon Dee on 10-18-2024 Hematocrit (Bld) [Volume fraction] 42.0 % 40-54 [facility] Hemoglobin measurementOrdere d By: Bairon Dee on 10-18-2024 Hemoglobin (Bld) [Mass/Vol] 14.8 g/dL 13.0-16.5 [facility] Immature granulocytes/100 WB C Auto (Bld)Ordered By: Bairon Dee on 10-18-2024 Immature granulocytes/100 WBC (Bld) 0.400 % 0.0-0.9 [facility] Comment on above: IG% - Immature Granu locytes (promyelocytes, myelocytes and metamyelocytes) > 1% indicates that a LEFT SHIFT is Present. International normalized rat io (INR) calculationOrdered By: Ingrid Reece on 10-18-2024 INR Coag (Bld) [Relative time] 1.1 {INR} [facility] Ketones Test strip Ql (U)Ord ered By: Ingrid Reece on 10-18-2024 Ketones Ql (U) 50 mg/dl High Negative [facility] LIPASEon 10-18-2024 Lipase [Catalytic activity/Vol] 20 U/L Normal 15-65 [facility] Comment on above: Performed By: #### 4 6086 ####[facility] [address] [address] Travis Christensen M.D. [id number] Lactic Acidon 10-18-2024 Lactate [Moles/Vol] mmol/L Normal 0.0-2.0 [facility] Comment on above: Order Comment: Y Performed By: #### L 500.3400,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 Immature granulocytes/100 WBC (Bld) 0.6 % [facility] Comment on above: The IG parameter is the percentage of metamyelocytes, myelocytes and promyelocytes. An immature granulocyte count (IG) of 1% or more suggests the possibility of infection, an IG count of 3% is very likely related to an infection. Interpretation and review of laboratory results Abnormal [facility] Lymphocytes (Bld) [#/Vol] 1.84 10*3/uL [facility] Lymphocytes/100 WBC (Bld) 17.5 % [facility] MCH (RBC) [Entitic mass] 33.2 pg 26.0 - 34.0 pg [facility] MCHC (RBC) [Mass/Vol] 33.2 g/dL 31.0 - 37.0 g/dL [facility] MCV (RBC) [Entitic vol] 100.3 fL High 80.0 - 100.0 fL [facility] Monocytes (Bld) [#/Vol] 0.96 10*3/uL High [facility] Monocytes/100 WBC (Bld) 9.1 % [facility] Neutrophils (Bld) [#/Vol] 7.39 10*3/uL High [facility] Neutrophils/100 WBC (Bld) 70.4 % [facility] Nucleated RBC (Bld) [#/Vol] 0 10*3/uL [facility] Nucleated RBC/100 WBC (Bld) [Ratio] 0 % [facility] Platelet mean volume (Bld) [Entitic vol] 9.5 fL 9.4 - 12.4 fL [facility] Platelets (Bld) [#/Vol] 348 10*3/uL [facility] RBC (Bld) [#/Vol] 3.64 10*6/uL Low [facility] WBC (Bld) [#/Vol] 10.5 10*3/uL [facility] CBC WITH AUTO DIFFERENTIALon 10-08-2024 AUTO NRBC 0.0 % Normal [facility] Comment on above: Performed By: #### 4 4014 #### [facility] [address] [place] [address] Pratik Dukes M.D. [id number] AUTO NRBC ABS COUNT 0.00 K/mcL Normal 0.00-0.00 [facility] Comment on above: Performed By: #### 4 4014 #### [facility] [address] [place] [address] Pratik Dukes M.D. [id number] BASOPHILS ABSOLUTE COUNT 0.09 K/mcL Normal 0.00-0.30 [facility] Comment on above: Performed By: #### 4 4014 #### [facility] [address] [place], [place] [address] Pratik Dukes M.D. [id number] Basophils/100 WBC (Bld) 0.9 % Normal [facility] Comment on above: Performed By: #### 4 4014 #### [facility] [address] [place] [address] Pratik Dukes M.D. [id number] Eosinophils (Bld) [#/Vol] 0.16 10*3/uL Normal 0.00-0.50 [facility] Comment on above: Performed By: #### 4 4014 #### [facility] [address] [place], [place] [address] Pratik Dukes M.D. [id number] Eosinophils/100 WBC (Bld) 1.5 % Normal [facility] Comment on above: Performed By: #### 4 4014 #### [facility] [address] [place], [place] [address] Pratik Dukes M.D. [id number] Erythrocyte distribution width (RBC) [Ratio] 11.8 % Normal 11.6-14.8 [facility] Comment on above: Performed By: #### 4 4014 #### [facility] [address] [place], [place] [address] Pratik Dukes M.D. [id number] Hematocrit (Bld) [Volume fraction] 36.5 % Low 41.0-53.0 [facility] Comment on above: Performed By: #### 4 4014 #### [place] [address] Pratik Dukes M.D. [id number] Hemoglobin (Bld) [Mass/Vol] 12.1 g/dL Low 13.5-17.5 [facility] Comment on above: Performed By: #### 4 4014 #### [place] [id number] Pratik Dukes M.D. [id number] IG ABSOLUTE 0.06 K/mcL Normal 0.00-0.30 [facility] Comment on above: Performed By: #### 4 4014 #### [facility] [address] [place] [address] Pratik Dukes M.D. [id number] IG PERCENT 0.60 % Normal [facility] Comment on above: Result Comment: The IG parameter is the percentage of metamyelocytes, myelocytes and promyelocytes. An immature granulocyte count (IG) of 1% or more suggests the possibility of infection, an IG count of 3% is very likely related to an infection. Performed By: #### 4 4014 #### [facility] [address] [place], [place] [address] Pratik Dukes M.D. [id number] Lymphocytes (Bld) [#/Vol] 1.84 10*3/uL Normal 0.90-4.00 [facility] Comment on above: Performed By: #### 4 4014 #### [facility] [address] [place], [place] [address] Pratik Dukes M.D. [id number] Lymphocytes/100 WBC (Bld) 17.5 % Normal [facility] Comment on above: Performed By: #### 4 4014 #### [facility] [address] [place] [address] Pratik Dukes M.D. [id number] MCH (RBC) [Entitic mass] 33.2 pg Normal 26.0-34.0 [facility] Comment on above: Performed By: #### 4 4014 #### [facility] [address] [place] [address] Pratik Dukes M.D. [id number] MCV (RBC) [Entitic vol] 100.3 fL High 80.0-100.0 [facility] Comment on above: Performed By: #### 4 4014 #### [facility] [address] [place] [address] Pratik Dukes M.D. [id number] MEAN CORPUSCULAR HEMOGLOBIN CONC 33.2 g/dL Normal 31.0-37.0 [facility] Comment on above: Performed By: #### 4 4014 #### [facility] [address] [place] [address] Pratik Dukes M.D. [id number] Monocytes (Bld) [#/Vol] 0.96 10*3/uL High 0.30-0.90 [facility] Comment on above: Performed By: #### 4 4014 #### [facility] [address] [place], [place] [address] Pratik Dukes M.D. [id number] Monocytes/100 WBC (Bld) 9.1 % Normal [facility] Comment on above: Performed By: #### 4 4014 #### [facility] [facility] [address] [place], [place] [id number] Pratik Dukes M.D. [id number] NEUTROPHILS ABSOLUTE COUNT 7.39 K/mcL High 1.70-7.00 [facility] Comment on above: Performed By: #### 4 [id number] #### [facility] [address] [place] [address] Pratik Dukes M.D. [id number] Neutrophils/100 WBC (Bld) 70.4 % Normal [facility] Comment on above: Performed By: #### 4 [id number] #### [facility] [address] [place] [address] Pratik Dukes M.D. [id number] Platelet mean volume (Bld) [Entitic vol] 9.5 fL Normal 9.4-12.4 [facility] Comment on above: Performed By: #### 4 4014 #### [facility] [address] [place] [address] Pratik Dukes M.D. [id number] Platelets (Bld) [#/Vol] 348 10*3/uL Normal 150-400 [facility] Comment on above: Performed By: #### 4 4014 #### [facility] [address] [place], [place] [id number] Pratik Dukes M.D. [id number] RBC (Bld) [#/Vol] 3.64 10*6/uL Low 4.50-5.90 [facility] Comment on above: Performed By: #### 4 4014 #### [facility] [address] [place] [address] Pratik Dukes M.D. [id number] WBC (Bld) [#/Vol] 10.50 10*3/uL Normal 4.50-11.00 [facility] Comment on above: Performed By: #### 4 4014 #### [facility] [address] [place] [address] Pratik Dukes M.D. [id number] CONSULTon 10-08-2024 CONSULT --- Attestation signed by Marilou Vasquez MD at 10/08/2024 9:11 AM Discussed with team and agree with plan. PLASTIC RECONSTRUCTIVE SURGERY CONSULT NOTE Patient Name: Kade Gonzalez MR #: [id number] Assessment/Plan: Kade Gonzalez is a 28 y.o.male [...] MANDIBLE MAXILLA; Surgeon: Marilou Vasquez MD; Location: [facility] Main OR; Service: Plastics; Laterality: [...] Herzog CNP Plastic Reconstructive Surgery Service Pager ([phone]): [1] Social History Socioeconomic History Marital status: [...] on SatOct 08, 2024 4:52:01 PM EDT [facility] Comment on above: Order Comment: [...] abscess. RECOMMENDATIONS: Surgical evaluation. Workstation ID: [id number] [facility] EXAMINATION: CT OF THE FACE [...] abscess. RECOMMENDATIONS: Surgical evaluation. Workstation ID: [id number] [facility] Radiology Study observation (narrative) [place] CT Maxillofacial region W co ntrast IVOrdered By: Salima Anaya on 10-08-2024 [facility] Work Phone: DRUGS OF ABUSE SCREEN, [...] None Detected Performed By: #### 4 [id number] ####[facility] [address], [place] [address] Travis Christensen M.D. [id number] BARBITURATE SCREEN URINE Positive Abnormal None Detected [...] None Detected Performed By: #### 4 [id number] ####[facility] [address] [address] Travis Christensen M.D. [id number] BENZODIAZEPINE SCREEN, URINE Not detected Normal None [...] None Detected Performed By: #### 4 [id number] ####[facility] [address] [address] Travis Christensen M.D. [id number] BUPRENORPHINE, URINE Not detected Normal None Detected [...] None Detected Performed By: #### 4 [id number] ####[facility] [address] [address] Travis Christensen M.D. [id number] CANNABINOID SCREEN URINE Not detected Normal None [...] None Detected Performed By: #### 4 [id number] ####[facility] [address] [address] Travis Christensen M.D. [id number] COCAINE, SCREEN URINE Not detected Normal None [...] None Detected Performed By: #### 4 [id number] ####[facility] [address] [address] Travis Christensen M.D. [id number] FENTANYL, URINE Not detected Normal None Detected [...] None Detected Performed By: #### 4 [id number] ####[facility] [address] [address] Travis Christensen M.D. [id number] METHADONE SCREEN, URINE Not detected Normal None [...] None Detected Performed By: #### 4 [id number] ####[facility] [address] [address] Travis Christensen M.D. [id number] OPIATE SCREEN URINE Not detected Normal None [...] None Detected Performed By: #### 4 [id number] ####[facility] [address] [address] Travis Christensen M.D. [id number] OXYCODONE SCREEN, URINE Not detected Normal None [...] None Detected Performed By: #### 4 [id number] ####[facility] [address] [place], [place] [address] Travis Christensen M.D. [id number] Drugs of Abuse Screen, Urine Ordered By: Axel Chanel on 10-08-2024 Amphetamines Ql (U) Positive Abnormal None Detected [facility] Comment on above: Urine Amphetamine Cu toff: < 1000 ng/mL = None Detected Barbiturates Screen Ql (U) Positive Abnormal None Detected [facility] Comment on above: Urine Barbiturates C utoff: < 200 ng/mL = None Detected Benzodiazepines Ql (U) Not detected None Detected [facility] Comment on above: Urine Benzodiazepine Cutoff: < 200 ng/mL = None Detected Buprenorphine Ql (U) Not detected None Detected [facility] Comment on above: Urine Buprenorphine Cutoff: < 5 ng/mL = None Detected Cannabinoids Screen Ql (U) Not detected None Detected [facility] Comment on above: Urine Cannabinoids C utoff: < 50 ng/mL = None Detected Cocaine Ql (U) Not detected None Detected [facility] Comment on above: Urine Cocaine Cutoff : < 300 ng/mL = None Detected fentaNYL+Norfentanyl Screen Ql (U) Not detected None Detected [facility] Comment on above: Urine Fentanyl Cutof f: < 1 ng/mL = None Detected Interpretation and review of laboratory results Abnormal [facility] Methadone Screen Ql (U) Not detected None Detected [facility] Comment on above: Urine Methadone Cuto ff: < 300 ng/mL = None Detected Opiates Screen Ql (U) Not detected None Detected [facility] Comment on above: Urine Opiates Cutoff : < 300 ng/mL = None Detected oxyCODONE Ql (U) Not detected None Detected [facility] Comment on above: Urine Oxycodone Cuto ff: < 100 ng/mL = None Detected Screen results shoul d be used for treatment purposes only. Specimen will be kept for 2 weeks, if the sample is adequate. Confirmation testing can be initiated by calling the lab within 2 weeks. [facility] [place] [facility] ED Prov Noteon 10-08-2024 ED Prov Note PCP - No, Physician [id number] Chief Complaint Patient presents with Jaw Pain [...] MANDIBLE MAXILLA; Surgeon: Marilou Vasquez MD; Location: [facility] Main OR; Service: Plastics; Laterality: [...] All other components within normal limits Narrative: [facility] Services has implemented the eGFR [...] Procedure Abnormality Status --------- ------ CBC Auto Differential[[id number]] Abnormal Final r (more content not included)... Normal [facility] Ethanol [Mass/Vol]on 025 Interpretation and review of laboratory results Normal [facility] [place] [facility] H AND Frank 10-08-2024 H AND P --- Attestation signed by Holli Ding DO at 10/08/2024 3:03 PM Trauma, Surgical Critical Care, and Acute Care Surgery Attending Note I agree with the note done by the PURA/fellow/resident. Please see and link to my documentation from the same date of service. Electronically signed: Holli Ding DO, LEATHA, [facility] Trauma, Surgical Critical Care, and Acute Care Surgery [facility] SURGERY TRAUMA EVALUATION / HISTORY AND PHYSICAL [...] Comment on above: Performed By: #### L [id number] #### [facility] [address] [address] Travis Christensen M.D. [id number] ALT [Catalytic activity/Vol] 22 U/L Normal 0-50 U/L [facility] Comment on above: Performed By: #### L [id number] #### [facility] [address] [address] Travis Christensen M.D. [id number] AST [Catalytic activity/Vol] 29 U/L Normal 0-50 U/L [facility] Comment on above: Result Comment: Spec imen slightly hemolyzed. Performed By: #### L [id number] #### [facility] [address] [address] Travis Christensen M.D. [id number] Bilirubin [Mass/Vol] 0.4 mg/dL Normal 0.0-1.3 [facility] Comment on above: Performed By: #### L [id number] #### [facility] [address] [address] Travis Christensen M.D. [id number] BILIRUBIN, DIRECT < Normal 0.0-0.4 [facility] Comment on above: Performed By: #### L [id number] #### [facility] [address] [address] Travis Christensen M.D. [id number] Protein [Mass/Vol] 7.0 g/dL Normal 6.0-8.0 [facility] Comment on above: Performed By: #### L [id number] #### [facility] [address], [place] [address] Travis Christensen M.D. [id number] Hepatic function 2000 panelo n 10-08-2024 Albumin [Mass/Vol] 3.4 g/dL 3.2 - 5.2 g/dL [facility] ALP [Catalytic activity/Vol] 79 U/L 40 - 140 U/L [facility] ALT [Catalytic activity/Vol] 22 U/L 0 - 50 U/L [facility] AST [Catalytic activity/Vol] 29 U/L 0 - 50 U/L [facility] Comment on above: Specimen slightly he molyzed. Bilirubin [Mass/Vol] 0.4 mg/dL 0.0 - 1 .3 mg/dL [facility] Bilirubin.conjugated [Mass/Vol] mg/dL 0.0 - 0.4 mg/dL [facility] Interpretation and review of laboratory results Normal [facility] Protein [Mass/Vol] 7 g/dL 6.0 - 8.0 g/dL [facility] [place] [facility] RENAL FUNCTION PANELon 10-08 Albumin [Mass/Vol] 3.4 g/dL Normal 3.2-5.2 [facility] Comment on above: Order Comment: [facility] has implemented the eGFR calculation approach that does not have a coefficient for race that conforms to the NKF-ASN Task Force Recommendations. Performed By: #### 4 [id number] ####[facility] [address], [place] [address] Travis Christensen M.D. [id number] Performed By: #### L [id number] #### [facility] [address], [place] [address] Travis Christensen M.D. [id number] Anion gap [Moles/Vol] 23 mmol/L High 10-20 [facility] Comment on above: Order Comment: [facility] has implemented the eGFR calculation approach that does not have a coefficient for race that conforms to the NKF-ASN Task Force Recommendations. Performed By: #### 4 [id number] ####[facility] [address], [place] [address] Travis Christensen M.D. [id number] Calcium [Mass/Vol] 8.8 mg/dL Normal 8.4-10.2 [facility] Comment on above: Order Comment: [facility] has implemented the eGFR calculation approach that does not have a coefficient for race that conforms to the NKF-ASN Task Force Recommendations. Performed By: #### 4 [id number] ####[facility] [address] [address] Travis Christensen M.D. [id number] Chloride [Moles/Vol] 101 mmol/L Normal 98-108 [facility] Comment on above: Order Comment: [facility] has implemented the eGFR calculation approach that does not have a coefficient for race that conforms to the NKF-ASN Task Force Recommendations. Performed By: #### 4 [id number] ####[facility] [address] [address] Travis Christensen M.D. [id number] Creatinine [Mass/Vol] 0.57 mg/dL Normal 0.50-1.30 [facility] Comment on above: Order Comment: [facility] has implemented the eGFR calculation approach that does not have a coefficient for race that conforms to the NKF-ASN Task Force Recommendations. Performed By: #### 4 6449 ####[facility] [address] [address] Travis Christensen M.D. [id number] EGFR 138 mL/min/1.73 m2 Normal >=60 [facility] Comment on above: Order Comment: [facility] has implemented the eGFR calculation approach that does not have a coefficient for race that conforms to the NKF-ASN Task Force Recommendations. Result Comment: Luzma mated GFR was calculated using the 2020 CKD-EPI creatinine equation. Performed By: #### 4 [id number] ####[facility] [address], [place] [address] Travis Christensen M.D. [id number] Glucose [Mass/Vol] 106 mg/dL High 65-99 [facility] Comment on above: Order Comment: [facility] has implemented the eGFR calculation approach that does not have a coefficient for race that conforms to the NKF-ASN Task Force Recommendations. Performed By: #### 4 6449 ####[facility] [address], [place] [address] Travis Christensen M.D. [id number] HCO3 (Bld) [Moles/Vol] 16 mmol/L Low 21-32 [facility] Comment on above: Order Comment: [facility] has implemented the eGFR calculation approach that does not have a coefficient for race that conforms to the NKF-ASN Task Force Recommendations. Performed By: #### 4 6449 ####[facility] [address] [address] Travis Christensen M.D. [id number] Phosphate [Mass/Vol] 3.7 mg/dL Normal 2.7-4.5 [facility] Comment on above: Order Comment: [facility] has implemented the eGFR calculation approach that does not have a coefficient for race that conforms to the NKF-ASN Task Force Recommendations. Performed By: #### 4 6449 ####[facility] [address] [address] Travis Christensen M.D. [id number] Potassium [Moles/Vol] 3.6 mmol/L Normal 3.5-5.1 [facility] Comment on above: Order Comment: [facility] has implemented the eGFR calculation approach that does not have a coefficient for race that conforms to the NKF-ASN Task Force Recommendations. Performed By: #### 4 6449 ####[facility] [address] [address] Travis Christensen M.D. [id number] Sodium [Moles/Vol] 136 mmol/L Normal 135-145 [facility] Comment on above: Order Comment: [facility] has implemented the eGFR calculation approach that does not have a coefficient for race that conforms to the NKF-ASN Task Force Recommendations. Performed By: #### 4 [id number] ####[facility] [address] [address] Travis Christensen M.D. [id number] Urea nitrogen [Mass/Vol] 10 mg/dL Normal 8-25 [facility] Comment on above: Order Comment: [facility] has implemented the eGFR calculation approach that does not have a coefficient for race that conforms to the NKF-ASN Task Force Recommendations. Performed By: #### 4 [id number] ####[facility] [address], [place] [address] Travis Christensen M.D. [id number] Urea nitrogen/Creatinine [Mass ratio] 17.5 mg/mg Normal 10.0-20.0 [facility] Comment on above: Order Comment: [facility] has implemented the eGFR calculation approach that does not have a coefficient for race that conforms to the NKF-ASN Task Force Recommendations. Performed By: #### 4 [id number] ####[facility] [address], [place] [address] Travis Christensen M.D. [id number] Renal function 2000 panelOrd ered By: Fior Naranjo on 10-08-2024 Albumin [Mass/Vol] 3.4 g/dL 3.2 - 5.2 g/dL [facility] Anion gap [Moles/Vol] 23 mmol/L High 10 - 2 0 mmol/L [facility] Calcium [Mass/Vol] 8.8 mg/dL 8.4 - 10. 2 mg/dL [facility] Chloride [Moles/Vol] 101 mmol/L 98 - 10 8 mmol/L [facility] Creatinine [Mass/Vol] 0.57 mg/dL 0.50 - 1.30 mg/dL [facility] GFR/1.73 sq M.predicted CKD-EPI (S/P/Bld) [Vol rate/Area] 138 - PINF [facility] Comment on above: Estimated GFR was ca lculated using the 2020 CKD-EPI creatinine equation. Glucose [Mass/Vol] 106 mg/dL High 65 - 99 mg/dL [facility] HCO3 [Moles/Vol] 16 mmol/L Low 21 - 32 mmol/L [facility] Interpretation and review of laboratory results Abnormal [facility] Phosphate [Mass/Vol] 3.7 mg/dL 2.7 - 4 .5 mg/dL [facility] Potassium [Moles/Vol] 3.6 mmol/L 3.5 - 5.1 mmol/L [facility] Sodium [Moles/Vol] 136 mmol/L 135 - 145 mmol/L [facility] Urea nitrogen [Mass/Vol] 10 mg/dL 8 - 25 mg/dL [facility] Urea nitrogen/Creatinine [Mass ratio] 17.5 mg/mg 10.0 - 20.0 [facility] [place] [facility] has implemented the eGFR calculation approach that does not have a coefficient for race that conforms to the NKF-ASN Task Force Recommendations. [facility] [place] [facility] BASIC METABOLIC PANELon 08-2 -2024 Anion gap [Moles/Vol] 16 mmol/L Normal 10-20 [facility] Comment on above: Order Comment: [facility] has implemented the eGFR calculation approach that does not have a coefficient for race that conforms to the NKF-ASN Task Force Recommendations. Performed By: #### 4 [id number] #### [facility] [address] [address] Travis Christensen M.D. [id number] Calcium [Mass/Vol] 8.6 mg/dL Normal 8.4-10.2 [facility] Comment on above: Order Comment: [facility] has implemented the eGFR calculation approach that does not have a coefficient for race that conforms to the NKF-ASN Task Force Recommendations. Performed By: #### 4 [id number] #### [facility] [address] [id number] Travis Christensen M.D. [id number] Chloride [Moles/Vol] 100 mmol/L Normal 98-108 [facility] Comment on above: Order Comment: [facility] has implemented the eGFR calculation approach that does not have a coefficient for race that conforms to the NKF-ASN Task Force Recommendations. Performed By: #### 4 [id number] #### [facility] [address] [address] Travis Christensen M.D. [id number] Creatinine [Mass/Vol] 0.59 mg/dL Normal 0.50-1.30 [facility] Comment on above: Order Comment: [facility] has implemented the eGFR calculation approach that does not have a coefficient for race that conforms to the NKF-ASN Task Force Recommendations. Performed By: #### 4 [id number] #### [facility] [address] [address] Travis Christensen M.D. [id number] EGFR 136 mL/min/1.73 m2 Normal >=60 [facility] Comment on above: Order Comment: [facility] has implemented the eGFR calculation approach that does not have a coefficient for race that conforms to the NKF-ASN Task Force Recommendations. Result Comment: Luzma mated GFR was calculated using the 2020 CKD-EPI creatinine equation. Performed By: #### 4 [id number] #### [facility] [address] [address] Travis Christensen M.D. [id number] Glucose [Mass/Vol] 122 mg/dL High 65-99 [facility] Comment on above: Order Comment: [facility] has implemented the eGFR calculation approach that does not have a coefficient for race that conforms to the NKF-ASN Task Force Recommendations. Performed By: #### 4 [id number] #### [facility] [address] [address] Travis Christensen M.D. [id number] HCO3 (Bld) [Moles/Vol] 23 mmol/L Normal 21-32 [facility] Comment on above: Order Comment: [facility] has implemented the eGFR calculation approach that does not have a coefficient for race that conforms to the NKF-ASN Task Force Recommendations. Performed By: #### 4 [id number] #### [facility] [address] [address] Travis Christensen M.D. [id number] Potassium [Moles/Vol] 3.9 mmol/L Normal 3.5-5.1 [facility] Comment on above: Order Comment: [facility] has implemented the eGFR calculation approach that does not have a coefficient for race that conforms to the NKF-ASN Task Force Recommendations. Performed By: #### 4 [id number] #### [facility] [address] [address] Travis Christensen M.D. [id number] Sodium [Moles/Vol] 135 mmol/L Normal 135-145 [facility] Comment on above: Order Comment: [facility] has implemented the eGFR calculation approach that does not have a coefficient for race that conforms to the NKF-ASN Task Force Recommendations. Performed By: #### 4 [id number] #### [facility] [address] [id number] Travis Christensen M.D. [id number] Urea nitrogen [Mass/Vol] 3 mg/dL Low 8-25 [facility] Comment on above: Order Comment: [facility] has implemented the eGFR calculation approach that does not have a coefficient for race that conforms to the NKF-ASN Task Force Recommendations. Performed By: #### 4 [id number] #### [facility] [address], [place] [address] Travis Christensen M.D. [id number] Urea nitrogen/Creatinine [Mass ratio] 5.1 mg/mg Low 10.0-20.0 [facility] Comment on above: Order Comment: [facility] has implemented the eGFR calculation approach that does not have a coefficient for race that conforms to the NKF-ASN Task Force Recommendations. Performed By: #### 4 [id number] #### [facility] [address], [place] [address] Travis Christensen M.D. [id number] Basic metabolic 2000 panelon 10-05-2024 Anion gap [Moles/Vol] 16 mmol/L 10 - 2 0 mmol/L [facility] Calcium [Mass/Vol] 8.6 mg/dL 8.4 - 10. 2 mg/dL [facility] Chloride [Moles/Vol] 100 mmol/L 98 - 10 8 mmol/L [facility] Creatinine [Mass/Vol] 0.59 mg/dL 0.50 - 1.30 mg/dL [facility] GFR/1.73 sq M.predicted CKD-EPI (S/P/Bld) [Vol rate/Area] 136 - PINF [facility] Comment on above: Estimated GFR was ca lculated using the 2020 CKD-EPI creatinine equation. Glucose [Mass/Vol] 122 mg/dL High 65 - 99 mg/dL [facility] HCO3 [Moles/Vol] 23 mmol/L 21 - 32 mmol/L [facility] Interpretation and review of laboratory results Abnormal [facility] Potassium [Moles/Vol] 3.9 mmol/L 3.5 - 5.1 mmol/L [facility] Sodium [Moles/Vol] 135 mmol/L 135 - 145 mmol/L [facility] Urea nitrogen [Mass/Vol] 3 mg/dL Low 8 - 25 mg/dL [facility] Urea nitrogen/Creatinine [Mass ratio] 5.1 mg/mg Low 10.0 - 20.0 [facility] [place] [facility] has implemented the eGFR calculation approach that does not have a coefficient for race that conforms to the NKF-ASN Task Force Recommendations. [facility] [place] [facility] CBCon 10-05-2024 AUTO NRBC 0.0 % Normal [facility] Comment on above: Performed By: #### 4 [id number] #### [facility] [address] [address] Travis Christensen M.D. [id number] AUTO NRBC ABS COUNT 0.00 K/mcL Normal 0.00-0.00 [facility] Comment on above: Performed By: #### 4 [id number] #### [facility] [address] [address] Travis Christensen M.D. [id number] Erythrocyte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 Erythrocyte distribution wid th ratioOrdered By: Colin Colon on 10-02-2024 Erythrocyte distribution width (RBC) [Ratio] 11.7 % 11.6-14.6 [facility] Erythrocyte distribution wid th standard deviationOrdered By: Colin Colon on 10-02-2024 Erythrocyte distribution width (RBC) [Ratio] 40.2 fl 35.1-43.9 [facility] Ethanol [Mass/Vol]on 025 Interpretation and review of laboratory results Abnormal [facility] [place] [facility] Glomerular filtration rate ( GFR) estimation/1.73 sq m using serum, plasma, or whole bOrdered By: Colin Colon on 10-02-2024 GFR/1.73 sq M.predicted among non-blacks MDRD (S/P/Bld) [Vol rate/Area] 137 mL/min/{1.73_m2} >60 [facility] Comment on above: mL/min/1.73m2 CKD-EP I Creatinine Equation (2020) H AND Rfank 10-02-2024 H AND P --- Attestation signed by Holli Ding DO at 10/02/2024 12:46 PM Trauma, Surgical Critical Care, and Acute Care Surgery Attending Note I agree with the note done by the PURA/fellow/resident. Please see and link to my documentation from the same date of service. Electronically signed: Holli Ding DO, LEATHA, [facility] Trauma, Surgical Critical Care, and Acute Care Surgery [place] [facility] TRAUMA EVALUATION / HISTORY AND [...] Per report initially he had gone to [place] emergency department where he was evaluated and [...] Comment on above: Performed By: #### 4 [id number] #### [facility] [address] [place], [place] [address] Travis Christensen M.D. [id number] ALP [Catalytic activity/Vol] 68 U/L Normal 40-140 [facility] Comment on above: Performed By: #### 4 2493 #### [facility] [address] [id number] Travis Christensen M.D. [id number] ALT [Catalytic activity/Vol] 52 U/L High 0-50 U/L [facility] Comment on above: Performed By: #### 4 5866 #### [facility] [address] [address] Travis Christensen M.D. [id number] AST [Catalytic activity/Vol] 36 U/L Normal 0-50 U/L [facility] Comment on above: Performed By: #### 4 5866 #### [facility] [address] [address] Travis Christensen M.D. [id number] Bilirubin [Mass/Vol] 0.3 mg/dL Normal 0.0-1.3 [facility] Comment on above: Performed By: #### 4 5866 #### [facility] [address] [address] Travis Christensen M.D. [id number] BILIRUBIN, DIRECT < Normal 0.0-0.4 [facility] Comment on above: Performed By: #### 4 5866 #### [facility] [address] [address] Travis Christensen M.D. [id number] Protein [Mass/Vol] 6.6 g/dL Normal 6.0-8.0 [facility] Comment on above: Performed By: #### 4 [id number] #### [facility] [address] [address] Travis Christensen M.D. [id number] Hematocrit Auto (Bld) [Volum e fraction]Ordered By: Colin Colon on 10-02-2024 Hematocrit (Bld) [Volume fraction] 42.5 % 40-54 [facility] Hemoglobin measurementOrdere d By: Colin Colon on 10-02-2024 Hemoglobin (Bld) [Mass/Vol] 15.5 g/dL 13.0-16.5 [facility] Hepatic function 2000 panelO rdered By: Santino Fish on 10-02-2024 Albumin [Mass/Vol] 4 g/dL 3.2 - 5.2 g/dL [facility] ALP [Catalytic activity/Vol] 68 U/L 40 - 140 U/L [facility] ALT [Catalytic activity/Vol] 52 U/L High 0 - 50 U/L [facility] AST [Catalytic activity/Vol] 36 U/L 0 - 50 U/L [facility] Bilirubin [Mass/Vol] 0.3 mg/dL 0.0 - 1 .3 mg/dL [facility] Bilirubin.conjugated [Mass/Vol] mg/dL 0.0 - 0.4 mg/dL [facility] Interpretation and review of laboratory results Abnormal [facility] Protein [Mass/Vol] 6.6 g/dL 6.0 - 8.0 g/dL [facility] [place] [facility] Immature granulocytes/100 WB C Auto (Bld)Ordered By: Colin Colon on 10-02-2024 Immature granulocytes/100 WBC (Bld) 0.400 % 0.0-0.9 [facility] Comment on above: IG% - Immature Granu locytes (promyelocytes, myelocytes and metamyelocytes) > 1% indicates that a LEFT SHIFT is Present. International normalized rat io (INR) calculationOrdered By: Colin Colon on 10-02-2024 INR Coag (Bld) [Relative time] 0.9 {INR} [facility] MCV (mean corpuscular volume ) determinationOrdered By: Colin Colon on 10-02-2024 MCV (RBC) [Entitic vol] 95.7 fL High 80-94 [facility] Mean corpuscular hemoglobin (MCH) determinationOrdered By: Colin Colon on 10-02-2024 MCH (RBC) [Entitic mass] 34.9 pg High 27.0-32.0 [facility] Mean corpuscular hemoglobin concentration (MCHC) determinationOrdered By: Colin Colon on 10-02-2024 MCHC (RBC) [Mass/Vol] 36.5 g/dL High 32-36 [facility] Mean platelet volume determi nationOrdered By: Colin Colon on 10-02-2024 Platelet mean volume (Bld) [Entitic vol] 9.9 fL 6.2-12.0 [facility] Monocyte percentageOrdered B y: Colin Colon on 10-02-2024 Monocytes/100 WBC (Bld) 7.1 % 0-10 [facility] Neutrophil percentageOrdered By: Colin Colon on 10-02-2024 Neutrophils/100 WBC (Bld) 76.7 % High 47-70 [facility] No Panel Informationon 10-02 Radiology Study observation (narrative) [facility] Nucleated red blood cell per centageOrdered By: Colin Colon on 10-02-2024 Nucleated RBC/100 WBC (Bld) [Ratio] 0 % 0-5 [facility] POC VENOUS BLOOD GAS PANEL-P KINJAL Cavanaugh 10-02-2024 BASE EXCESS, VENOUS -1.4 Normal -2.0-2.0 [facility] Comment on above: Performed By: #### 4 [id number] #### [facility] [address] [address] [id number] [facility] CALCIUM IONIZED 4.5 mg/dL Normal 4.5-5.3 [facility] Comment on above: Performed By: #### 4 [id number] #### [facility] [address] [address] [id number] [facility] CARBOXYHEMOGLOBIN 2.4 % of total Hb High <=1.5 [facility] Comment on above: Result Comment: Refe rence Ranges: [place] Non-smokers: <1.5% Smokers: 1.5-5.0% Heavy Smokers: 5.0-9.0% Performed By: #### 4 [id number] #### [facility] [address] [address] [id number] [facility] Chloride [Moles/Vol] 106 mmol/L Normal 98-108 [facility] Comment on above: Performed By: #### 4 [id number] #### [facility] [address] [place] [address] [id number] [facility] Glucose [Mass/Vol] 93 mg/dL Normal 65-99 [facility] Comment on above: Performed By: #### 4 [id number] #### [facility] [address] [address] [id number] [facility] HCO3 (Bld) [Moles/Vol] 24.7 mmol/L Normal 24.0-28.0 [facility] Comment on above: Performed By: #### 4 [id number] #### [facility] [address] [place] [address] [id number] [facility] Hematocrit (Bld) [Volume fraction] 48.7 % Normal 41.0-53.0 [facility] Comment on above: Performed By: #### 4 [id number] #### [facility] PO[facility] [address] [place] [address] [id number] [facility] Hemoglobin (Bld) [Mass/Vol] 15.9 g/dL Normal 13.5-17.5 [facility] Comment on above: Performed By: #### 4 [id number] #### [facility] [address] [address] [id number] [facility] LACTIC ACID, WHOLE BLOOD 1.4 mmol/L Normal 0.6-2.0 [facility] Comment on above: Performed By: #### 4 [id number] #### [facility] [address] [place] [address] [id number] [facility] METHEMOGLOBIN < Normal 0.0-2.0 [facility] Comment on above: Performed By: #### 4 [id number] #### [facility] [address] [place] [address] [id number] [facility] O2HB 72.9 % Normal No established reference range [facility] Comment on above: Performed By: #### 4 [id number] #### [facility] [address] [address] [id number] [facility] Oxygen saturation in Blood 75.2 % High 40.0-70.0 [facility] Comment on above: Performed By: #### 4 [id number] #### [facility] [address] [address] [id number] [facility] PCO2 VENOUS 45.1 mm Hg Normal 41.0-51.0 [facility] Comment on above: Performed By: #### 4 [id number] #### [facility] PO[facility] [address] [address] [id number] [facility] PH VENOUS 7.35 Normal 7.32-7.42 [facility] Comment on above: Performed By: #### 4 8717 #### [facility] [address] [address] [id number] [facility]ENOUS 41 mm Hg High 25-40 [facility] Comment on above: Performed By: #### 4 [id number] #### [facility] PO[facility] [address] [id number] [facility] Potassium [Moles/Vol] 3.9 mmol/L Normal 3.5-5.1 [facility] Comment on above: Performed By: #### 4 [id number] #### [facility] [address] [address] [id number] [facility] Sodium [Moles/Vol] 141 mmol/L Normal 135-145 [facility] Comment on above: Performed By: #### 4 [id number] #### [facility] PO[facility] [id number] [facility] Venous Blood Gas Panel-P [facility] 10-02-2024 Base excess Calc (BldV) [Moles/Vol] -1.4000 mmol/L -2.0 - 2.0 [facility] Calcium.ionized [Mass/Vol] 4.5 mg/dL 4.5 - 5.3 mg/dL [facility] Carboxyhemoglobin (BldA) [Mass fraction] 2.4 High [facility] Comment on above: Reference Ranges: [facility] Non-smokers: <1.5% Smokers: 1.5-5.0% Heavy Smokers: 5.0-9.0% CO2 (BldV) [Partial pressure] 45.1 mm[Hg] [facility] Glucose post fast [Mass/Vol] 93 mg/dL 65 - 99 mg/dL [facility] Hematocrit (BldA) [Volume fraction] 48.7 % 41.0 - 53.0 % [facility] Interpretation and review of laboratory results Abnormal [facility] Lactate [Moles/Vol] 1.4 mmol/L 0.6 - 2. 0 mmol/L [facility] Methemoglobin (BldA) [Mass fraction] % 0.0 - 2.0 % [facility] Oxygen (BldV) [Partial pressure] 41 mm[Hg] High [facility] Oxygen saturation in Venous blood 75.2 % High 40.0 - 70.0 % [facility] Oxyhemoglobin (BldA) [Mass fraction] 72.9 % -100.0 - 101.0 % [facility] pH (BldV) 7.35 [pH] 7.32 - 7.42 [facility] [place] [facility] Partial Thromboplast Timeon 10-02-2024 aPTT Coag (Bld) [Time] 26.0 s Normal 24.1-36.2 [facility] Comment on above: Performed By: #### L 501.9100, L500.2500, L300.3900, L100.0100, L300.4310 ####[facility] [address] [place], [address] Platelet countOrdered By: Anjali Colon on 10-02-2024 Platelets (Bld) [#/Vol] 256 10*3/uL 150-450 [facility] Potassium measurement (mass/ volume)Ordered By: Colin Colon on 10-02-2024 Potassium (Unsp spec) [Mass/Vol] 4.1 mmol/L 3.3-5.1 [facility] Comment on above: Hemolysis present, R esults could be affected. Prothrombin Time w/INRon INR Coag (PPP) [Relative time] 0.9 {INR} Normal [facility] Comment on above: Performed By: #### L 501.9100, L500.2500, L300.3900, L100.0100, L300.4310 #### [facility] [address] [place], [address] PT Coag (PPP) [Time] 12.0 s Normal 11.7-14.9 [facility] Comment on above: Performed By: #### L 501.9100, L500.2500, L300.3900, L100.0100, L300.4310 #### [facility] [address] [place], [address] Prothrombin timeOrdered By: Colin Colon on 10-02-2024 PT Coag (PPP) [Time] 12.0 s 11.7-14.9 [facility] RBC Auto (Bld) [#/Vol]Ordere d By: Colin Colon on 10-02-2024 RBC (Bld) [#/Vol] 4.44 10*6/uL Low 4.6-6.2 [facility] Serum creatinine measurement (mass/volume)Ordered By: Colin Colon on 10-02-2024 Creatinine [Mass/Vol] 0.58 mg/dL Low 0.70-1.20 [facility] Serum glucose measurement (m ass/volume)Ordered By: Colin Colon on 10-02-2024 Glucose [Mass/Vol] 108 mg/dL High 70-99 [facility] Serum or plasma calcium gaetano urement (mass/volume)Ordered By: Colin Colon on 10-02-2024 Calcium [Mass/Vol] 8.9 mg/dL 7.6-11.0 [facility] Serum or plasma ethanol gaetano urement (mass/volume)Ordered By: Colin Colon on 10-02-2024 Ethanol [Mass/Vol] 165.0 mg/dL High <10.1 [facility] Comment on above: This test is for med ical purposes only. The legal definition of intoxication varies according to local law. Serum or plasma urea nitroge n measurement (mass/volume)Ordered By: Colin Colon on 10-02-2024 Urea nitrogen [Mass/Vol] 4 mg/dL 4-19 [facility] Sinus/Facial Boneon 10-03-19 Sinus/Facial Bone [facility] Imaging Services [address] [place], [place] [address] Sinus/Facial Bone MR#: [id number] Acct: [id number] Name: KADE GONZALEZ Rep #: [id number] : 1995 M 28 From: Brianna maxwell MD PCP: Care Physician,No Primary Status: REG ER Study: Sinus/Facial Bone Date of Exam: 10/02/24 Exam# [id number] Ordering Dr: Colin Colon DO PROCEDURE: SINUS/FACIAL [...] master intramuscular hematoma as detailed. Reading Location: [place] [address] CC: Colin Colon DO; No Primary Care Physician Tax Map Technician: Signed Normal [facility] Sodium levelOrdered By: Epi Colon on 10-02-2024 Sodium [Moles/Vol] 139 mmol/L 133-145 [facility] Spine Cervical without Contr ason 10-02-2024 Spine Cervical without Contras [facility] Imaging Services [address] [place] [address] Spine Cervical without Contras MR#: [id number] Acct: [id number] Name: KADE GONZALEZ Rep #: [id number] : 1995 M 28 From: Brianna maxwell MD PCP: Care Physician,No Primary Status: REG ER Study: Spine Cervical without Contras Date of Exam: 0 10/02/24 Exam# [id number] Ordering Dr: Colin Colon DO PROCEDURE: SPINE [...] an acute fracture or dislocation. Reading Location: [place] [address] CC: Colin Colon DO; No Primary Care Physician Tax Map Technician: Signed Normal [facility] TYPE AND SCREENon 10-02-2024 TYPE AND SCREEN ABORH: O Positive AB SCREEN: Negative EXPIRATION DATE: 10/05/2024 23:59 EST Normal [facility] Comment on above: Performed By: #### 4 6619 ####[facility] [employer] [address] [facility] [address] Naomi Chapman MD [id number] GMCTS White blood cell (WBC) count Ordered By: Colin Colon on 10-02-2024 WBC (Bld) [#/Vol] 10.3 10*3/uL 4.4-11.0 [facility] [place] H AND P Exam - Hospitaliston 10-01-2024 H&P Exam - Hospitalist [facility] Medical Records Department [address] [place] [address] H P Exam - Hospitalist 10/01/24 0151 MR#: [id number] Acct: [id number] Name: KADE GONZALEZ Rep #: [id number] : 1995 28 From: Jacquie Beckwith MD PCP: Care Physician,No Primary Status:ADM IN Location: [facility] [id number] HPI - General General Date of Admission: [...] court date with then referral to 6-[facility]; however, unfortunately instead of [...] for transition to avoid alcohol withdrawal symptoms. [facility] Medical History Substance abuse Depression [...] Awake, a (more content not included)... Normal [facility] Magnesiumon 10-01-2024 Magnesium [Mass/Vol] 1.8 mg/dL Normal 1.5-2.2 [facility] Comment on above: Performed By: #### L 501.2300, L501.5200 ####[facility] [id number] [place], [place], [address] Magnesium measurement (mass/ volume)Ordered By: Jacquie Beckwith on 10-01-2024 Magnesium (Unsp spec) [Mass/Vol] 1.8 mg/dL 1.5-2.2 [facility] Phosphoruson 10-01-2024 Phosphate [Mass/Vol] 4.7 mg/dL High 2.7-4.5 [facility] Comment on above: Performed By: #### L 501.2300, L501.5200 ####[facility] [id number] [place], [address] ACETAMINOPHENon 09-30-2024 Acetaminophen [Mass/Vol] ug/mL Low 10.0 - 30.0 [facility] Comment on above: Performed By: #### 2 64106 #### [facility],[address] [place] [address] ALCOHOL-BLOOD MEDICALon 09-12 Ethanol [Mass/Vol] 94 mg/dL High 0 - 50 [facility] Comment on above: Performed By: #### 2 41772 #### [facility],[address] [place] [address] CBC + DIFFon 09-30-2024 Baso # 0.01 x10EE3/UL Normal 0.00 - 0.10 [facility] Comment on above: Performed By: #### 2 07952 #### [facility],[address] [place], [place] [address] Basophils/100 WBC (Bld) 0.2 % Normal 0.0 - 2.0 [facility] Comment on above: Performed By: #### 2 10405 #### [facility],[address] [place] [address] CBC + DIFF Normal [facility] Comment on above: Result Comment: CBC- COMPLETE BLOOD COUNT Performed By: #### 2 75447 #### [facility],[address] [place] [address] EO # 0.14 x10EE3/UL Normal 0.00 - 0.50 [facility] Comment on above: Performed By: #### 2 43554 #### [facility],[address] [place] [address] Eosinophils/100 WBC (Bld) 2.3 % Normal 0.0 - 7.0 [facility] Comment on above: Performed By: #### 2 33142 #### [place] [address] Erythrocyte distribution width (RBC) [Ratio] 12.4 % Normal 12.0 - 15.6 [facility] Comment on above: Performed By: #### 2 25651 #### [facility],[address] [place] [address] Hematocrit (Bld) [Volume fraction] 41.7 % Normal 40.0 - 52.0 [facility] Comment on above: Performed By: #### 2 34750 #### [facility],[address] [place], [place] [address] Hemoglobin (Bld) [Mass/Vol] 14.7 g/dL Normal 13.0 - 17.5 [facility] Comment on above: Performed By: #### 2 43135 #### [facility],[address] [place] [address] Lymph # 2.10 x10EE3/UL Normal 0.80 - 2.80 [facility] Comment on above: Performed By: #### 2 58426 #### [facility],[address] [place] [address] Lymphocytes/100 WBC (Bld) 36.3 % Normal 20.0 - 45.0 [facility] Comment on above: Performed By: #### 2 55018 #### [facility],[address] [place] [address] MANUAL DIFF N/A Normal [facility] Comment on above: Performed By: #### 2 64428 #### [facility],[address] [place], [place] [address] MCH (RBC) [Entitic mass] 35 pg High 27 - 33 [facility] Comment on above: Performed By: #### 2 76801 #### [facility],[address] [place] [address] MCHC 35 X10 3 Normal 32 - 36 [facility] Comment on above: Performed By: #### 2 58461 #### [facility],[address] [place] [address] MCV (RBC) [Entitic vol] 99 fL High 81 - 98 [facility] Comment on above: Performed By: #### 2 74715 #### [facility],[address] [place] [address] [place] # 0.43 x10EE3/UL Normal 0.20 - 1.00 [facility] Comment on above: Performed By: #### 2 20089 #### [facility],[address] [place] [address] MONOS % 7.4 % Normal 0.0 - 10.0 [facility] Comment on above: Performed By: #### 2 56929 #### [facility],[address] [place] [address] Morphology Isacc (Bld) [Interp] N/A Normal [facility] Comment on above: Performed By: #### 2 79947 #### [facility],[address] [place] [address] Neut # 3.10 x10EE3/UL Normal 1.50 - 7.10 [facility] Comment on above: Performed By: #### 2 89638 #### [facility],[address] [place], [place] [address] Neutrophils/100 WBC (Bld) 53.7 % Normal 46.0 - 76.0 [facility] Comment on above: Performed By: #### 2 72285 #### [facility],[address] [place], [place] [address] PLATELET 251 x10EE3/UL Normal 150 - 450 [facility] Comment on above: Performed By: #### 2 24611 #### [facility],[address] [place] [address] Platelet mean volume (Bld) [Entitic vol] 7.8 fL Normal 6.4 - 10.5 [facility] Comment on above: Result Comment: AUTO MATED DIFFERENTIAL Performed By: #### 2 14176 #### [facility],[address] [place] [address] 268[address] RBC 4.20 x 10EE6/UL Low 4.50 - 6.00 [facility] Comment on above: Performed By: #### 2 11572 #### [facility],[address] [place] [address] WBC 5.8 x 10EE3/UL Normal 4.5 - 10.8 [facility] Comment on above: Performed By: #### 2 82120 #### [facility],[address] [place] [address] CMP with eGFRon 09-30-2024 AGE 28 years Normal [facility] Comment on above: Performed By: #### 2 70004 #### [facility],[address] [place] [address] Albumin [Mass/Vol] 3.2 g/dL Low 3.4 - 5.0 [facility] Comment on above: Performed By: #### 2 42742 #### [facility],[address] [place] [address] Albumin/Globulin [Mass ratio] 1.0 {ratio} Normal 0.9 - 1.6 [facility] Comment on above: Performed By: #### 2 25824 #### [facility],[address] [place] [address] ALK PHOS 72 U/L Normal 46 - 116 [facility] Comment on above: Performed By: #### 2 27689 #### [facility],[address] [place] [address] 33633 ALT [Catalytic activity/Vol] 69 U/L High 16 - 63 [facility] Comment on above: Performed By: #### 2 84643 #### [facility],[address] [place] [address] Anion gap [Moles/Vol] 14 mmol/L Normal 10 - 20 [facility] Comment on above: Performed By: #### 2 72592 #### [facility],[address] [place] [address] 30107 AST [Catalytic activity/Vol] 38 U/L High 15 - 37 [facility] Comment on above: Performed By: #### 2 59322 #### [facility],[address] [place] [address] 31278 B/C RATIO 8 ratio Normal 0 - 30 [facility] Comment on above: Performed By: #### 2 93908 #### [facility],[address] [place] [address] Bilirubin [Mass/Vol] 0.3 mg/dL Normal 0.2 - 1.0 [facility] Comment on above: Performed By: #### 2 06819 #### [facility],[address] [place] [address] 36898 Calcium [Mass/Vol] 8.2 mg/dL Low 8.5 - 10.1 [facility] Comment on above: Performed By: #### 2 87249 #### [facility],[address] [place] [address] Chloride [Moles/Vol] 106 mmol/L Normal 98 - 107 [facility] Comment on above: Performed By: #### 2 35708 #### [facility],[address] [place] [address] CMP with eGFR Normal [facility] Comment on above: Result Comment: COMP REHENSIVE METABOLIC PANEL Performed By: #### 2 70232 #### [facility],[address] [place] [address] CO2 [Moles/Vol] 27.7 mmol/L Normal 21.0 - 32.0 [facility] Comment on above: Performed By: #### 2 91301 #### [facility],[address] [place] [address] 49995 Creatinine [Mass/Vol] 0.79 mg/dL Normal 0.70 - 1.30 [facility] Comment on above: Performed By: #### 2 87898 #### [facility],[address] [place] [address] 21279 GFR/1.73 sq M.predicted among non-blacks MDRD (S/P/Bld) [Vol rate/Area] mL/min/{1.73_m2} Normal 60 - 999 [facility] Comment on above: Performed By: #### 2 03390 #### [facility],[address] [place] [address] Result Comment: ACCO RDING TO THE NATIONAL KIDNEY DISEASE EDUCATION PROGRAM(NKDE), A NORMAL eGFR IS A VALUE GREATER THAN OR EQUAL TO 60 ML/MIN/1.73 SQ METERS. CHRONIC KIDNEY DISEASE: <60mL/MIN/1.73 SQ METERS KIDNEY FAILURE: <15mL/MIN/1.73 SQ METERS THIS TEST SHOULD ONLY BE USED FOR PATIENTS 18 YEARS OF AGE AND OLDER. Globulin (S) [Mass/Vol] 3.1 g/dL Normal 1.5 - 3.8 [facility] Comment on above: Performed By: #### 2 87740 #### [address] [address] Glucose [Mass/Vol] 106 mg/dL Normal 74 - 106 [facility] Comment on above: Performed By: #### 2 62319 #### [facility],[address] [place] [address]56 Potassium [Moles/Vol] 3.7 mmol/L Normal 3.5 - 5.1 [facility] Comment on above: Performed By: #### 2 74395 #### [facility],[address] [place] [address] 20605 Protein [Mass/Vol] 6.3 g/dL Low 6.4 - 8.2 [facility] Comment on above: Performed By: #### 2 81375 #### [facility],[address] [place] [address] 50563 Sodium [Moles/Vol] 144 mmol/L Normal 136 - 145 [facility] Comment on above: Performed By: #### 2 92301 #### [address] [address] Urea nitrogen [Mass/Vol] 6 mg/dL Low 7 - 18 [facility] Comment on above: Performed By: #### 2 86248 #### [facility],[address] [place] [address],[facility] [address] DRUG SCREEN URINE MEDICon AMPHETAMINES Negative Normal [facility] Comment on above: Performed By: #### 2 98329 ####[facility],[address] [place] [address],[facility] [address] B-DIAZEPINES Positive Normal [facility] Comment on above: Performed By: #### 2 15651 ####[facility],[address] [facility] [address] BARBITURATES Positive Normal [facility] Comment on above: Performed By: #### 2 99466 ####[facility],[address] [place] [address],[facility] [address] COCAINE Negative Normal [facility] Comment on above: Performed By: #### 2 92010 ####[facility],[address] [place] [address] DRUG SCREEN URINE MEDIC Normal [facility] Comment on above: Result Comment: DRUG SCREEN - URINE Performed By: #### 2 01969 ####[facility],[address] [facility] [address] METHADONE Negative Normal [facility] Comment on above: Performed By: #### 2 33926 ####[facility],[address] [place] [address] OPIATES Negative Normal [facility] Comment on above: Performed By: #### 2 59619 ####[facility],[address] [facility],[place] [address] PCP Negative Normal [facility] Comment on above: Performed By: #### 2 94391 ####[facility],[address] [facility] [address] THC Negative Normal [facility] Comment on above: Result Comment: CHACORTA ENTS RECEIVING PROTON PUMP INHIBITORS MAY DEMONSTRATE FALSE POSITIVE THC/CANNABINOID RESULTS. AN ALTERNATIVE CONFIRMATORY METHOD SHOULD BE CONSIDERED TO VERIFY POSITIVE RESULTS. Performed By: #### 2 45949 ####[facility],[address] [place] [address] ED MED ADMINISTRATION DETAIL on 09-30-2024 ED MED ADMINISTRATION DETAIL [facility] - KADE BARRERA, : 1995, , [place] [address] [id number] 09/29/2024 Patient: KADE BARRERA Sex: Male : 1995 Age: 28y MEASUREMENTS: Wt: 78.9 kg, Ht/Pedro: 71.0 in, BMI: 24.27 ALLERGIES: No known drug allergies Medication Ordered Medication Administration Date/Time 1 of 1 Normal [facility] ED NURSES CLINICAL NOTEon ED NURSES CLINICAL NOTE Nurse Narrative - KADE BARRERA, : 1995, , Nurse Clinical Narrative [address] [address] [id number] 09/29/2024 22:27:00 Patient: KADE BARRERA Sex: Male [...] 23:37 09/29/24 EDT Juanita Altman 00:51 09/30/24. [employer] at the patient's bedside (crisis). -- 01:16 09/30/24 EDT Sandra Olguin R.N. DISPOSITION / DISCHARGE Departure time: 01:32 09/30/2024. Condition at departure: improved. No learning barriers present. Discharge instructions provided and reviewed with the patient. Reviewe (more content not included)... Normal [facility] ED ORDER SHEET (CPOE ONLY)on 09-30-2024 ED ORDER SHEET (CPOE ONLY) Order Sheet - KADE BARRERA, : 1995, , Order Sheet [address] [address] [id number] 09/29/2024 Patient: KAED BARRERA Sex: Male : 1995 Age: 28y [...] (09/30/2024 02:22 EDT)] 2 of 2 Normal [facility] ED PHYSICIAN CLINICAL REPORT on 09-30-2024 ED PHYSICIAN CLINICAL REPORT [facility] - KADE BARRERA, : 1995, , Physician Clinical [place] [id number] [place] [address] [phone] 09/29/2024 22:27:00 Patient: KADE BARRERA Sex: Male [...] 1.50 - 7.10 Final EDT 09/29/2024 23:09 [place] # 0.51 x10/UL 0.20 - 1.00 Fin (more content not included)... Normal [facility] ED SUPER BILLon 09-30-2024 ED SUPER BILL [facility] - KADE BARRERA, : 1995, , [address] [address] [id number] 09/29/2024 Patient: KADE BARRERA Sex: Male : 1995 Age: 28y Item Professional Category Description Facility Code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 Wt: 78.9 kg, Ht/Pedro: 71.0 in, BMI: 24.27 Measured Time BP MAP HR RR O2Sat ETCO2 Temp Pain GCS RTS 01:01 09/28/2024 113/76 88 80 23:50 09/27/2024 126/85 99 102 16 99% 97.7 F 4 1 of 1 Normal [facility] LACTATEon 09-28-2024 Lactate [Moles/Vol] 1.3 mmol/L Normal 0.4 - 2.0 [facility] Comment on above: Performed By: #### 2 62165 #### [facility],[address] [place] [address] 38730 TROPONINon 09-28-2024 HS TROPONIN 10.2 pg/mL Normal 0.0 - 76.2 [facility] Comment on above: Performed By: #### 2 70450 #### [facility],[address] [place] [address] 86789 URINALYSISon 09-28-2024 Bilirubin Ql (U) Negative Normal NORMAL: NEGATIVE [facility] Comment on above: Performed By: #### 2 68030 ####[facility],[address] [place] [address] 86804 Clarity (U) clear Normal NORMAL: CLEAR [facility] Comment on above: Performed By: #### 2 17387 ####[facility],[address] [place] [address] 56931 Color (U) yellow Normal NORMAL: YELLOW [facility] Comment on above: Performed By: #### 2 58496 ####[facility],[address] [place] [address] 61195 Glucose Ql (U) NORM Normal NORMAL: NORMAL [facility] Comment on above: Performed By: #### 2 11891 ####[facility],[address] [place] [address] 90255 Hemoglobin Ql (U) Negative Normal NORMAL: NEGATIVE [facility] Comment on above: Performed By: #### 2 10242 ####[facility],[address] [place] [address] 80782 Ketone Negative Normal NORMAL: NEGATIVE [facility] Comment on above: Performed By: #### 2 19542 ####[facility],[address] [place] [address] 91537 Leukocytes Negative Normal NORMAL: NEGATIVE [facility] Comment on above: Performed By: #### 2 71612 ####[facility],[address] [place], [place] [address] Nitrite Ql (U) Negative Normal NORMAL: NEGATIVE [facility] Comment on above: Performed By: #### 2 08623 ####[facility],[address] [place] [address] pH (U) 5 [pH] Normal NORMAL: 5.0-8.0 [facility] Comment on above: Performed By: #### 2 25886 ####[facility],[address] [place] [address] Protein Ql (U) Negative Normal NORMAL: NEGATIVE [facility] Comment on above: Performed By: #### 2 84681 ####[facility],[address] [place] [address] Sp [place] 1.020 Normal NORMAL: 1.010-1.030 [facility] Comment on above: Performed By: #### 2 60738 ####[facility],[address] [place] [address] Specimen Type R Normal [facility] Comment on above: Performed By: #### 2 20236 ####[facility],[address] [place] [address] Urinalysis dipstick W Reflex Microscopic panel (U) NOT INDICATED Normal [facility] Comment on above: Performed By: #### 2 21680 ####[facility],[address] [place] [address] Urobilinog NORM Normal NORMAL: NORMAL [facility] Comment on above: Performed By: #### 2 05103 ####[facility],[address] [place] [address] CBC + DIFFon 09-27-2024 Baso # 0.02 x10EE3/UL Normal 0.00 - 0.10 [facility] Comment on above: Performed By: #### 2 80289 #### [facility],[address] [place], [place] [address] Basophils/100 WBC (Bld) 0.3 % Normal 0.0 - 2.0 [facility] Comment on above: Performed By: #### 2 54835 #### [facility],[address] [place] [address] CBC + DIFF Normal [facility] Comment on above: Result Comment: CBC- COMPLETE BLOOD COUNT Performed By: #### 2 96721 #### [facility],[address] [place] [address] EO # 0.13 x10EE3/UL Normal 0.00 - 0.50 [facility] Comment on above: Performed By: #### 2 06782 #### [facility],[address] [place] [address] Eosinophils/100 WBC (Bld) 1.4 % Normal 0.0 - 7.0 [facility] Comment on above: Performed By: #### 2 39156 #### [facility],[address] [place] [address] Erythrocyte distribution width (RBC) [Ratio] 12.4 % Normal 12.0 - 15.6 [facility] Comment on above: Performed By: #### 2 69042 #### [facility],[address] [place] [address] Hematocrit (Bld) [Volume fraction] 44.8 % Normal 40.0 - 52.0 [facility] Comment on above: Performed By: #### 2 87352 #### [facility],[address] [place] [address] Hemoglobin (Bld) [Mass/Vol] 16.4 g/dL Normal 13.0 - 17.5 [facility] Comment on above: Result Comment: RPT H & H CHECK Performed By: #### 2 57923 #### [facility],[address] [place] [address] 53056 Lymph # 2.78 x10EE3/UL Normal 0.80 - 2.80 [facility] Comment on above: Performed By: #### 2 73985 #### [facility],[address] [place] [address] 08796 Lymphocytes/100 WBC (Bld) 29.0 % Normal 20.0 - 45.0 [facility] Comment on above: Performed By: #### 2 71274 #### [facility],[address] [place] [address] 65105 MANUAL DIFF N/A Normal [facility] Comment on above: Performed By: #### 2 28949 #### [facility],[address] [place] [address] 71736 MCH (RBC) [Entitic mass] 37 pg High 27 - 33 [facility] Comment on above: Performed By: #### 2 08213 #### [facility],[address] [place] [address] 77741 MCHC 37 X10 3 High 32 - 36 [facility] Comment on above: Performed By: #### 2 05030 #### [facility],[address] [place] [address] 56581 MCV (RBC) [Entitic vol] 100 fL High 81 - 98 [facility] Comment on above: Performed By: #### 2 78626 #### [facility],[address] [place] [address] 41619 [place] # 0.67 x10EE3/UL Normal 0.20 - 1.00 [facility] Comment on above: Performed By: #### 2 97251 #### [facility],[address] [place] [address] [id number] MONOS % 7.0 % Normal 0.0 - 10.0 [facility] Comment on above: Performed By: #### 2 [id number] #### [facility],[address] [place] [address] Morphology Isacc (Bld) [Interp] N/A Normal [facility] Comment on above: Performed By: #### 2 [id number] #### [facility],[address] [place] [address]67 Neut # 5.99 x10EE3/UL Normal 1.50 - 7.10 [facility] Comment on above: Performed By: #### 2 [id number] #### [facility],[address] [place] [address] 35394 Neutrophils/100 WBC (Bld) 62.4 % Normal 46.0 - 76.0 [facility] Comment on above: Performed By: #### 2 14606 #### [facility],[address] [place] [address] 51725 PLATELET 318 x10EE3/UL Normal 150 - 450 [facility] Comment on above: Performed By: #### 2 69818 #### [facility],[address] [place] [address] 13299 Platelet mean volume (Bld) [Entitic vol] 7.5 fL Normal 6.4 - 10.5 [facility] Comment on above: Result Comment: AUTO MATED DIFFERENTIAL Performed By: #### 2 [id number] #### [facility],[address] [place] [address] 76715 RBC 4.50 x 10EE6/UL Normal 4.50 - 6.00 [facility] Comment on above: Performed By: #### 2 84528 #### [facility],[address] [place] [address] 16587 WBC 9.6 x 10EE3/UL Normal 4.5 - 10.8 [facility] Comment on above: Performed By: #### 2 75353 #### [facility],[address] [place] [address] ED Nursing Noteon 06-24-2024 ED Nursing Note Attempted to call pt three times for triage. Unable to locate pt Normal [facility] BASIC METABOLIC PANELon 05-0 Anion gap [Moles/Vol] 8 mmol/L Normal 3-13 [facility] Comment on above: Performed By: #### L AB15, [id number], LAB46, LAB62 ####Medical Biller/Coder: DIONNA JIMENEZ ([id number])[facility])[address] [place] [address] Calcium [Mass/Vol] 8.4 mg/dL Normal 8.4-10.2 [facility] Comment on above: Performed By: #### L AB15, [id number], LAB46, LAB62 ####Medical Biller/Coder: DIONNA JIMENEZ ([id number])[facility])[address] [place] [address] Chloride [Moles/Vol] 108 mmol/L High 98-107 [facility] Comment on above: Performed By: #### L AB15, [id number], LAB46, LAB62 ####Medical Biller/Coder: DIONNA JIMENEZ ([id number])[facility] ([facility])[address] [place] [address] CO2 [Moles/Vol] 21 mmol/L Low 22-29 [facility] Comment on above: Performed By: #### L AB15, [id number], LAB46, LAB62 ####Medical Biller/Coder: DIONNA JIMENEZ ([id number])[facility])[address] [place] [address] Creatinine [Mass/Vol] 0.67 mg/dL Low 0.72-1.25 [facility] Comment on above: Performed By: #### L AB15, [id number], LAB46, LAB62 ####Medical Biller/Coder: DIONNA JIMENEZ ([id number])[facility])[address] [place] [address] GLOMERULAR FILTRATION RATE ML/MIN/1.73 SQ M.PREDICTED >90.0 Normal >60.0 [facility] Comment on above: Result Comment: Calc ulation based on the Chronic Kidney Disease Epidemiology Collaboration (CKD-EPI) equation refit without adjustment for race Performed By: #### L AB15, [id number], LAB46, LAB62 ####Medical Biller/Coder: DIONNA JIMENEZ ([id number])[facility])[address] [place] [address] Glucose [Mass/Vol] 113 mg/dL High 74-100 [facility] Comment on above: Performed By: #### L AB15, [id number], LAB46, LAB62 ####Medical Biller/Coder: DIONNA JIMENEZ ([id number])[facility])[address] [place] [address] Potassium [Moles/Vol] 3.5 mmol/L Normal 3.5-5.1 [facility] Comment on above: Result Comment: [facility] potassium values may be up to 0.5 mmol/L lower than serum values. Performed By: #### L AB15, [id number], LAB46, LAB62 ####Medical Biller/Coder: DIONNA JIMENEZ ([id number])[facility])[address] [place] [address] Sodium [Moles/Vol] 137 mmol/L Normal 136-145 [facility] Comment on above: Performed By: #### L AB15, [id number], LAB46, LAB62 ####Medical Biller/Coder: DIONNA JIMENEZ ([id number])[facility])[address] [place] [address] Urea nitrogen [Mass/Vol] 5 mg/dL Low 8-21 [facility] Comment on above: Performed By: #### L AB15, [id number], LAB46, LAB62 ####Medical Biller/Coder: DIONNA JIMENEZ ([id number])[facility])[address] [place] [address] Basic metabolic 1998 panelon 06-11-2024 Anion gap [Moles/Vol] 8 mmol/L 3 - 13 mmol/L [facility] Calcium [Mass/Vol] 8.4 mg/dL 8.4 - 10. 2 mg/dL [facility] Chloride [Moles/Vol] 108 mmol/L High 98 - 10 7 mmol/L [facility] CO2 [Moles/Vol] 21 mmol/L Low 22 - 29 mmol/L [facility] [employer] Creatinine [Mass/Vol] 0.67 mg/dL Low 0.72 - 1.25 mg/dL [facility] [employer] GFR/1.73 sq M.predicted (S/P/Bld) [Vol rate/Area] - PINF [facility] Comment on above: Calculation based on the Chronic Kidney Disease Epidemiology Collaboration (CKD-EPI) equation refit without adjustment for race Glucose [Mass/Vol] 113 mg/dL High 74 - 100 mg/dL [facility] Potassium [Moles/Vol] 3.5 mmol/L 3.5 - 5.1 mmol/L [facility] Comment on above: Plasma potassium steph ues may be up to 0.5 mmol/L lower than serum values. Sodium [Moles/Vol] 137 mmol/L 136 - 145 mmol/L [facility] [employer] Urea nitrogen [Mass/Vol] 5 mg/dL Low 8 - 21 mg/dL [facility] [employer] CBC W Auto Differential pane l (Bld)Ordered By: Ludwin Cordova on 06-11-2024 Basophils (Bld) [#/Vol] 0.1 10*3/uL 0.0 - 0.2 10*3/uL [facility] Basophils/100 WBC (Bld) 1.9 % 0.0 - 2.0 % [facility] Eosinophils (Bld) [#/Vol] 0.1 10*3/uL 0.0 - 0.5 10*3/uL [facility] Eosinophils/100 WBC (Bld) 2.3 % 0.0 - 6.0 % [facility] Erythrocyte distribution width (RBC) [Ratio] 12.7 % 11.5 - 15.0 % [facility] Hematocrit (Bld) [Volume fraction] 41.5 % 40.0 - 52.0 % [facility] Hemoglobin (Bld) [Mass/Vol] 15.4 g/dL 13.0 - 18.0 g/dL [facility] [employer] Immature granulocytes (Bld) [#/Vol] 0 10*3/uL NINF - 0.1 10*3/uL [facility] [employer] Immature granulocytes/100 WBC (Bld) 0.2 % 0.0 - 2.0 % [facility] Interpretation and review of laboratory results Abnormal [facility] Lymphocytes (Bld) [#/Vol] 1.8 10*3/uL 1.0 - 4.3 10*3/uL [facility] Lymphocytes/100 WBC (Bld) 34.8 % 15.0 - 45.0 % [facility] MCH (RBC) [Entitic mass] 33.7 pg 26.0 - 34.0 pg [facility] MCHC (RBC) [Mass/Vol] 37.1 % High 30.5 - 36.0 % [facility] MCV (RBC) [Entitic vol] 90.8 fL 77.0 - 99.0 fL [facility] Monocytes (Bld) [#/Vol] 0.5 10*3/uL 0.0 - 0.9 10*3/uL [facility] Monocytes/100 WBC (Bld) 9.1 % 5.0 - 13.0 % [facility] Neutrophils (Bld) [#/Vol] 2.7 10*3/uL 1.8 - 7.5 10*3/uL [facility] Neutrophils/100 WBC (Bld) 51.7 % 38.0 - 82.0 % [facility] Nucleated RBC/100 WBC (Bld) [Ratio] 0 % [facility] Platelet mean volume (Bld) [Entitic vol] 9.8 fL 9.0 - 12.7 fL [facility] Platelets (Bld) [#/Vol] 226 10*3/uL 140 - 440 10*3/uL [facility] RBC (Bld) [#/Vol] 4.57 10*6/uL 4.40 - 5.9 0 10*6/uL [facility] WBC (Bld) [#/Vol] 5.2 10*3/uL 3.6 - 10.7 10*3/uL [facility] CBC WITH AUTO DIFFERENTIALon 06-11-2024 Basophils (Bld) [#/Vol] 0.1 10*3/uL Normal 0.0-0.2 [facility] Comment on above: Performed By: #### L [id number] #### Medical Biller/Coder: DIONNA JIMENEZ ([id number]) [facility] ([facility]) [address] [place] [address] Basophils/100 WBC (Bld) 1.9 % Normal 0.0-2.0 [facility] Comment on above: Performed By: #### L [id number] #### Medical Biller/Coder: DIONNA JIMENEZ ([id number]) [facility]) [address] [place] [address] Eosinophils (Bld) [#/Vol] 0.1 10*3/uL Normal 0.0-0.5 [facility] Comment on above: Performed By: #### L [id number] #### Medical Biller/Coder: DIONNA JIMENEZ ([id number]) [facility]) [address] [place] [address] Eosinophils/100 WBC (Bld) 2.3 % Normal 0.0-6.0 [facility] Comment on above: Performed By: #### L [id number] #### Medical Biller/Coder: DIONNA JIMENEZ ([id number]) [address] Erythrocyte distribution width (RBC) [Ratio] 12.7 % Normal 11.5-15.0 [facility] Comment on above: Performed By: #### L [id number] #### Medical Biller/Coder: DIONNA JIMENEZ ([id number]) [address] Hematocrit (Bld) [Volume fraction] 41.5 % Normal 40.0-52.0 [facility] Comment on above: Performed By: #### L [id number] #### Medical Biller/Coder: DIONNA JIMENEZ ([id number]) [address] Hemoglobin (Bld) [Mass/Vol] 15.4 g/dL Normal 13.0-18.0 [facility] Comment on above: Performed By: #### L [id number] #### Medical Biller/Coder: DIONNA JIMENEZ ([id number]) [address] IMMATURE GRANS % 0.2 % Normal 0.0-2.0 [facility] Comment on above: Performed By: #### L [id number] #### Medical Biller/Coder: DIONNA [id number]) [facility]) [address] [place] [address] IMMATURE GRANS ABSOLUTE 0.0 10*3/uL Normal <0.1 [facility] Comment on above: Performed By: #### L [id number] #### Medical Biller/Coder: DIONNA JIMENEZ ([id number]) [facility]) [address] [place] [address] Lymphocytes (Bld) [#/Vol] 1.8 10*3/uL Normal 1.0-4.3 [facility] Comment on above: Performed By: #### L [id number] #### Medical Biller/Coder: DIONNA JIMENEZ ([id number]) [facility]) [address] [place] [address] Lymphocytes/100 WBC (Bld) 34.8 % Normal 15.0-45.0 [facility] Comment on above: Performed By: #### L [id number] #### Medical Biller/Coder: DIONNA JIMENEZ ([id number]) [facility]) [address] [place] [address] MCH (RBC) [Entitic mass] 33.7 pg Normal 26.0-34.0 [facility] Comment on above: Performed By: #### L [id number] #### Medical Biller/Coder: DIONNA JIMENEZ ([id number]) [facility]) [address] [place] [address] MCHC 37.1 % High 30.5-36.0 [facility] Comment on above: Performed By: #### L [id number] #### Medical Biller/Coder: DIONNA JIMENEZ ([id number]) [facility]) [address] [place] [address] MCV (RBC) [Entitic vol] 90.8 fL Normal 77.0-99.0 [facility] Comment on above: Performed By: #### L [id number] #### Medical Biller/Coder: DIONNA JIMENEZ ([id number]) [facility]) [address] [place] [address] Monocytes (Bld) [#/Vol] 0.5 10*3/uL Normal 0.0-0.9 [facility] Comment on above: Performed By: #### L [id number] #### Medical Biller/Coder: DIONNA JIMENEZ ([id number]) [facility]) [address] [place] [address] Monocytes/100 WBC (Bld) 9.1 % Normal 5.0-13.0 [facility] Comment on above: Performed By: #### L [id number] #### Medical Biller/Coder: DIONNA JIMENEZ ([id number]) [facility] ([facility]) [address] [place] [address] NEUTROPHILS ABSOLUTE 2.7 10*3/uL Normal 1.8-7.5 [facility] Comment on above: Performed By: #### L [id number] #### Medical Biller/Coder: DIONNA JIMENEZ ([id number]) [facility] ([facility]) [address] [place] [address] Neutrophils/100 WBC (Bld) 51.7 % Normal 38.0-82.0 [facility] Comment on above: Performed By: #### L [id number] #### Medical Biller/Coder: DIONNA JIMENEZ ([id number]) [facility] ([facility]) [address] [place] [address] NRBC 0.0 /100 WBCs Normal 0.0-2.0 [facility] Comment on above: Performed By: #### L [id number] #### Medical Biller/Coder: DIONNA JIMENEZ ([id number]) [facility] ([facility]) [address] [place] [address] Platelet mean volume (Bld) [Entitic vol] 9.8 fL Normal 9.0-12.7 [facility] Comment on above: Performed By: #### L [id number] #### Medical Biller/Coder: DIONNA JIMENEZ ([id number]) [facility] ([facility]) [address] [place] [address] Platelets (Bld) [#/Vol] 226 10*3/uL Normal 140-440 [facility] Comment on above: Performed By: #### L [id number] #### Medical Biller/Coder: DIONNA JIMENEZ ([id number]) [facility] ([facility]) [address] [place] [address] RBC (Bld) [#/Vol] 4.57 10*6/uL Normal 4.40-5.90 [facility] Comment on above: Performed By: #### L [id number] #### Medical Biller/Coder: DIONNA JIMENEZ ([id number]) [facility] ([facility]) [address] [place] [address] WBC (Bld) [#/Vol] 5.2 10*3/uL Normal 3.6-10.7 [facility] Comment on above: Performed By: #### L [id number] #### Medical Biller/Coder: DIONNA JIMENEZ ([id number]) [facility] ([facility]) [address] [place] [address] CKon 06-11-2024 CK [Catalytic activity/Vol] 247 U/L High 30-185 [facility] Comment on above: Performed By: #### L AB15, [id number], LAB46, LAB62 ####Medical Biller/Coder: DIONNA JIMENEZ ([id number])[facility] ([facility])[address] [place] [address] DRUGS OF ABUSEon 06-11-2024 AMPHETAMINE SCREEN Positive Normal [facility] Comment on above: Performed By: #### L [id number] ####Medical Biller/Coder: DIONNA JIMENEZ ([id number])[facility])[address] [place] [address] BARBITURATES SCREEN Positive Normal [facility] Comment on above: Performed By: #### L [id number] ####Medical Biller/Coder: DIONNA JIMENEZ ([id number])[facility])[address] [place] [address] BENZODIAZEPINE SCREEN Negative Normal [facility] Comment on above: Performed By: #### L [id number] ####Medical Biller/Coder: DIONNA JIMENEZ ([id number])[facility] ([facility])[address] [place] [address] COCAINE METAB. SCREEN Negative Normal [facility] Comment on above: Performed By: #### L [id number] ####Medical Biller/Coder: DIONNA JIMENEZ ([id number])[facility])[address] [place] [address] FENTANYL SCREEN, UR QUAL Negative Normal [facility] Comment on above: Result Comment: MARTA [...] under separate order. Performed By: #### L [id number] ####Medical Biller/Coder: DIONNA JIMENEZ ([id number])[facility] ([facility])[address] [place] [address] METHADONE SCREEN Negative Normal [facility] Comment on above: Performed By: #### L [id number] ####Medical Biller/Coder: DIONNA JIMENEZ ([id number])[facility] ([facility])[address] [place] [address] OPIATES SCREEN Negative Normal [facility] Comment on above: Performed By: #### L [id number] ####Medical Biller/Coder: DIONNA JIMENEZ ([id number])[facility] ([facility])[address] [place] [address] OXYCODONE SCREEN Negative Normal [facility] Comment on above: Performed By: #### L [id number] ####Medical Biller/Coder: DIONNA JIMENEZ ([id number])[facility] ([facility])[address] [place] [address] PHENCYCLIDINE SCREEN Negative Normal [facility] Comment on above: Performed By: #### L [id number] ####Medical Biller/Coder: DIONNA JIMENEZ ([id number])[facility] ([address] ECG 12-LEADon 06-11-2024 ECG 12-LEAD IMPRESSION: Pacemaker spikes or artifacts Sinus rhythm Electronically Signed On 06-11-2024 10:13:28 EDT by Mike Wright [facility] ED Nursing Noteon 06-11-2024 ED Nursing Note Report given to Larry broderick RN. [facility] ED Nursing Note Pt ambulated independently back and forth to the restroom. 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 Pt currently on classroom monitor; sts that the pain starts in the L shoulder and radiates into the neck and then jaw. [facility] ED Nursing Note Pt heading to [facility] transport. 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 NOTE: This result is for medical treatment only. Analysis performed using non-forensic procedures. Performed By: #### L AB15, [id number], LAB46, LAB62 ####Medical Biller/Coder: DIONNA JIMENEZ ([id number])[facility] ([address] Ethanol (Bld) [Mass/Vol]on 0 06-11-2024 Ethanol [Mass/Vol] mg/dL NINF - 10 mg/dL [facility] Interpretation and review of laboratory results Normal [facility] WALL ATTENDANT depression is se en >100 mg/dL. NOTE: This result is for medical treatment only. Analysis performed using non-forensic procedures. [facility] HIGH SENSITIVITY TROPONIN, S ERIAL BASELINEon 06-11-2024 TROPONIN HS SERIAL BASELINE <3 Normal <=35 [facility] Comment on above: Result Comment: In i ndividuals presenting with symptoms > 2h, a baseline troponin <= 5 ng/L suggests acute cardiac injury is unlikely and further serial testing is generally not indicated. Performed By: #### L AB15, [id number], LAB46, LAB62 ####Medical Biller/Coder: DIONNA JIMENEZ ([id number])[facility] ([facility])[address] [place] [address] Laboratory - Chemistry and C hemistry - challengeon 06-11-2024 CK [Catalytic activity/Vol] 247 U/L High 30 - 185 U/L [facility] Laboratory - Drug toxicology on 06-11-2024 Amphetamines Screen method >1000 ng/mL Ql (U) Positive [facility] [employer] Barbiturates Screen method >200 ng/mL Ql (U) Positive [facility] [employer] Benzodiazepines Ql (U) Negative [facility] [employer] Methadone Screen Ql (U) Negative [facility] Opiates Screen Ql (U) Negative [facility] oxyCODONE Ql (U) Negative [facility] [employer] Phencyclidine Ql (U) Negative [facility] [employer] No Panel InformationOrdered By: Mike Wright on 06-11-2024 P [place] 67 degrees [employer] Work Phone: WI Interval 139 ms [employer] Work Phone: QRS [place] 80 degrees [employer] Work Phone: [phone] QRSD Interval 95 ms [employer] Work Phone: QT Interval 334 ms [employer] Work Phone: QTC Interval 418 ms [employer] Work Phone: [phone] T Wave [place] 52 degrees [employer] Work Phone: [employer] Work Phone: No Panel Informationon 06-11 Pacemaker spikes or artifacts Sinus rhythm Electronically Signed On 06-11-2024 10:13:28 EDT by Mike Wright CV Mike Angela MD - 06/11/2024 IMPRESSION: Pacemaker spikes or artifacts Sinus rhythm Electronically Signed On 06-11-2024 10:13:28 EDT by Mike Wright [facility] Interpretation and review of laboratory results Normal [facility] Troponin HS Serial Baseline ng/L NINF - 35 ng/L [facility] Comment on above: In individuals prese nting with symptoms > 2h, a baseline troponin <= 5 ng/L suggests acute cardiac injury is unlikely and further serial testing is generally not indicated. [facility] Interpretation and review of laboratory results Abnormal [facility] COCAINE METAB. SCREEN Negative [facility] FENTANYL SCREEN, UR QUAL Negative [facility] The expected value f or [...] is needed, request confirmation under separate order. [facility] Vital signsOrdered By: Mike Wright on 06-11-2024 Heart rate 94 /min bpm [facility] Work Phone: XR Chest 2 Viewson 5 1. No evidence of an acute cardiopulmonary process. Report Dictated on Electronically Signed By: Jovanni Garcia MD Electronically Signed Date/Time: 06/11/2024 5:00 AM EDT [facility] Patient Name: KADE BARRERA : 1995 [place] [id number] Exam Date/Time: 06/11/2024 04:41 Procedure: XR CHEST 2 VIEWS Ordering Provider: DAHL STEPHEN Reason For Exam: Chest pain CLINICAL INFORMATION: Chest pain. PA and lateral views of the chest are provided without comparison. FINDINGS: The cardiac silhouette and mediastinum are within normal limits. The lungs are free of infiltrate or pleural effusion. The visualized bones and soft tissues are grossly unremarkable. [facility] Jovanni Garcia MD - 06/11/2024 Patient [...] Electronically Signed Date/Time: 06/11/2024 5:00 AM EDT [facility] Radiology Study observation (narrative) [facility] XR Chest 2 ViewsOrdered By: Jovanni Garcia on 06-11-2024 [facility] Work Phone: ED Nursing Noteon [...] Interpretation and review of laboratory results Normal [facility] SARS-CoV-2 (COVID-19) RNA DOMINIC+non-probe Ql (Nph) Negative Negative [facility] AMB POC RAPID INFLUENZA DNA/ RNAon 01-28-2024 Inflenza A Ag Positive [facility] Influenza B Ag Negative [facility] Interpretation and review of laboratory results Abnormal [facility] Office Visiton 01-28-2024 Follow-up visit [id number] Kade Barrera 1995 M Date Provider Department Center 01/28/2024 [id number] RETANA [facility] None No family history on file Level of Service:99069 [place] OFFICE/OUTPATIENT ESTABLISHED LOW MDM 20 MIN Reason for Visit and Comments: URI [115] - Cough /Body ache/ migraine/stuffy nose /pt stated that he started new medication yesterday and that when he started feeling sick. Normal [facility] Progress Noteon 01-28-2024 Progress Note [facility] [address] [facility] [address] Dept: [phone] Dept Loc: [phone] Subjective Kade Barrera is a 28 y.o. [...] as words (more content not included)... Normal [facility] .Auto Diffon 06-20-2023 Basophil, Absolute 0.1 10 3/mcL Normal 0.0-0.2 [facility] ([place]) Comment on above: Performed By: #### A RIVERA IBARRA, CBC, ALC, ADIFF, CMP, GFR #### [address] [address] Basophils/100 WBC (Bld) 1.0 % Normal 0.0-2.5 A Pending sale to [facility] ([place]) Comment on above: Performed By: #### A RIVERA IBARRA, CBC, ALC, ADIFF, CMP, GFR #### [address] [address] Eosinophil, Absolute 0.0 10 3/mcL Normal 0.0-0.4 [facility] ([place]) Comment on above: Performed By: #### A RIVERA IBARRA, CBC, ALC, ADIFF, CMP, GFR #### [address] [address] Eosinophils/100 WBC (Bld) 0.5 % Normal 0.0-7.0 [facility] ([place]) Comment on above: Performed By: #### A RIVERA IBARRA, CBC, ALC, ADIFF, CMP, GFR #### [address] [address] Lymphocyte, Absolute 2.4 10 3/mcL Normal 0.8-3.9 [facility] ([place]) Comment on above: Performed By: #### A RIVERA IBARRA, CBC, ALC, ADIFF, CMP, GFR #### [address] [address] Lymphocytes/100 WBC (Bld) 29.4 % Normal 10.0-50.0 [facility] ([place]) Comment on above: Performed By: #### A RIVERA IBARRA, CBC, ALC, ADIFF, CMP, GFR #### [address] [address] Monocyte, Absolute 0.6 10 3/mcL Normal 0.2-1.0 [facility] ([place]) Comment on above: Performed By: #### A RIVERA IBARRA, CBC, ALC, ADIFF, CMP, GFR #### [address] [address] Monocytes/100 WBC (Bld) 7.6 % Normal 1.7-13.0 A Pending sale to [facility] ([place]) Comment on above: Performed By: #### A RIVERA IBARRA, CBC, ALC, ADIFF, CMP, GFR #### [address] [address] Neutrophils/100 WBC (Bld) 61.5 % Normal 37.0-80.0 [facility] ([place]) Comment on above: Performed By: #### A RIVERA IBARRA, CBC, ALC, ADIFF, CMP, GFR #### [address] [address] .GFRon 06-20-2023 GFR 96 ml/min/1.73sqm Normal [facility] ([place]) Comment on above: Result Comment: GFR Population [...] CBC, ALC, ADIFF, CMP, GFR ####[address] [place], [place] [address] GFR Non- 79 ml/min/1.73sqm Normal [facility] ([place]) Comment on above: Result Comment: GFR Population [...] IBARRA, CBC, ALC, ADIFF, CMP, GFR ####[address] [place], [place] [address] .MDWon 06-20-2023 Monocyte Distribution Width 18.60 Normal 0.00-20.00 [facility] ([place]) Comment on above: Result Comment: For ED adult patients suspected of sepsis, MDW<=20.0 does not rule out sepsis or risk of sepsis Performed By: #### A RIVERA IBARRA, CBC, ALC, ADIFF, CMP, GFR #### [address] [place], [place] [address] .NEUABSon 06-20-2023 Neutrophil, Absolute 5.0 10 3/mcL Normal 2.9-6.2 [facility] ([place]) Comment on above: Performed By: #### A RIVERA IBARRA, CBC, ALC, ADIFF, CMP, GFR #### [place] [address] Rob 06-20-2023 Ethanol Level <3 Normal 0-3 [facility] ([place]) Comment on above: Performed By: #### A RIVERA IBARRA, CBC, ALC, ADIFF, CMP, GFR #### [place] [address] Keiko 06-20-2023 Ammonia (P) [Moles/Vol] 15 umol/L Normal 11-32 A Pending sale to [facility] ([place]) Comment on above: Performed By: #### P HOS, PRO, AMM ####[place] [address] CBCon 06-20-2023 Erythrocyte distribution width (RBC) [Ratio] 12.6 % Normal 11.5-14.5 [facility] ([place]) Comment on above: Performed By: #### A RIVERA IBARRA, CBC, ALC, ADIFF, CMP, GFR #### [place] [address] Hematocrit (Bld) [Volume fraction] 40.3 % Low 42.0-52.0 [facility] ([place]) Comment on above: Performed By: #### A RIVERA IBARRA, CBC, ALC, ADIFF, CMP, GFR #### [place] [address] Hgb 14.5 G/dL Normal 14.0-18.0 [facility] ([place]) Comment on above: Performed By: #### A RIVERA IBARRA, CBC, ALC, ADIFF, CMP, GFR #### [place] [address] MCH (RBC) [Entitic mass] 33.9 pg High 27.0-31.2 [facility] ([place]) Comment on above: Performed By: #### A IRVERA IBARRA, CBC, ALC, ADIFF, CMP, GFR #### [place] [id number] MCHC 35.9 G/dL High 31.8-35.4 [facility] ([place]) Comment on above: Performed By: #### A RIVERA IBARRA, CBC, ALC, ADIFF, CMP, GFR #### [address] [address] MCV (RBC) [Entitic vol] 94.3 fL High 80.0-94.0 A Pending sale to [facility] ([place]) Comment on above: Performed By: #### A RIVERA IBARRA, CBC, ALC, ADIFF, CMP, GFR #### [address] [address] Platelet 230 10 3/mcL Normal 130-400 [facility] ([place]) Comment on above: Performed By: #### A RIVERA IBARRA, CBC, ALC, ADIFF, CMP, GFR #### [address] [address] Platelet mean volume (Bld) [Entitic vol] 7.5 fL Normal 7.4-10.4 [facility] ([place]) Comment on above: Performed By: #### A RIVERA IBARRA, CBC, ALC, ADIFF, CMP, GFR #### [address] [address] RBC 4.27 10 6/mcL Normal 4.04-6.13 [facility] ([place]) Comment on above: Performed By: #### A RIVERA IBARRA, CBC, ALC, ADIFF, CMP, GFR #### [address] [address] WBC 8.1 10 3/mcL Normal 4.6-10.8 [facility] ([place]) Comment on above: Performed By: #### A RIVERA IBARRA, CBC, ALC, ADIFF, CMP, GFR #### [address] [address] CMPon 06-20-2023 Albumin Level 3.8 G/dL Normal 3.5-5.0 [facility] ([place]) Comment on above: Performed By: #### A RIVERA IBARRA, CBC, ALC, ADIFF, CMP, GFR #### [address] [address] Albumin/Globulin [Mass ratio] 1.3 {ratio} Normal 1.1-2.5 [facility] ([place]) Comment on above: Performed By: #### A RIVERA IBARRA, CBC, ALC, ADIFF, CMP, GFR #### [address] [address] ALP [Catalytic activity/Vol] 77 U/L Normal 40-135 [facility] ([place]) Comment on above: Performed By: #### A RIVERA IBARRA, CBC, ALC, ADIFF, CMP, GFR #### [address] [address] ALT [Catalytic activity/Vol] 28 U/L Normal 16-63 [facility] ([place]) Comment on above: Performed By: #### A RIVERA IBARRA, CBC, ALC, ADIFF, CMP, GFR #### [address] [address] AST [Catalytic activity/Vol] 17 U/L Normal 10-40 [facility] ([place]) Comment on above: Performed By: #### A RIVERA IBARRA, CBC, ALC, ADIFF, CMP, GFR #### [address] [address] Bili Total 0.3 mg/dL Normal 0.2-1.0 [facility] ([place]) Comment on above: Result Comment: Use of this assay is not recommended for patients undergoing treatment with eltrombopag due to the potential for falsely elevated results. Performed By: #### A RIVERA IBARRA, CBC, ALC, ADIFF, CMP, GFR #### [address] [address] BUN/Creatinine Ratio 8 ratio Normal 7-27 [facility] ([place]) Comment on above: Performed By: #### A RIVERA IBARRA, CBC, ALC, ADIFF, CMP, GFR #### [address] [address] Calcium [Mass/Vol] 8.6 mg/dL Normal 8.4-10.2 [facility] ([place]) Comment on above: Performed By: #### A RIVERA IBARRA, CBC, ALC, ADIFF, CMP, GFR #### [address] [address] Chloride [Moles/Vol] 105 mmol/L Normal 98-107 [facility] ([place]) Comment on above: Performed By: #### A RIVERA IBARRA, CBC, ALC, ADIFF, CMP, GFR #### [address] [address] CO2 [Moles/Vol] 24 mmol/L Normal 22-29 [facility] ([place]) Comment on above: Performed By: #### A RIVERA IBARRA, CBC, ALC, ADIFF, CMP, GFR #### [address] [address] Creatinine [Mass/Vol] 1.12 mg/dL Normal 0.70-1.30 [facility] ([place]) Comment on above: Performed By: #### A RIVERA IBARRA, CBC, ALC, ADIFF, CMP, GFR #### [address] [address] Electrolyte Balance 14.0 mEq/L Normal 4.0-15.0 [facility] ([place]) Comment on above: Performed By: #### A RIVERA IBARRA, CBC, ALC, ADIFF, CMP, GFR #### [address] [address] Globulin 2.9 G/dL Normal [facility] ([place]) Comment on above: Performed By: #### A RIVERA IBARRA, CBC, ALC, ADIFF, CMP, GFR #### [address] [address] Glucose [Mass/Vol] 99 mg/dL Normal 70-105 [facility] ([place]) Comment on above: Performed By: #### A RIVERA IBARRA, CBC, ALC, ADIFF, CMP, GFR #### [place] [address] Potassium [Moles/Vol] 4.1 mmol/L Normal 3.5-5.1 [facility] ([place]) Comment on above: Performed By: #### A RIVERA IBARRA, CBC, ALC, ADIFF, CMP, GFR #### [address] [address] Sodium [Moles/Vol] 143 mmol/L Normal 136-145 [facility] ([place]) Comment on above: Performed By: #### A RIVERA IBARRA, CBC, ALC, ADIFF, CMP, GFR #### [address] [address] Total Protein 6.7 G/dL Normal 6.4-8.2 [facility] ([place]) Comment on above: Performed By: #### A RIVERA IBARRA, CBC, ALC, ADIFF, CMP, GFR #### [address] [address] Urea nitrogen [Mass/Vol] 9 mg/dL Normal 7-18 [facility] ([place]) Comment on above: Performed By: #### A RIVERA IBARRA, CBC, ALC, ADIFF, CMP, GFR #### [address] [address] [address] HEAD OR BRAIN W/O CONTRAS Ton [...] Sign Date: 06/20/2023 3:18:15 AM Ordering Provider: [facility]) CT SPINE CERVICAL W/O CONTRA STon [...] Sign Date: 06/20/2023 3:20:14 AM Ordering Provider: [facility]) LABORATORYOrdered By: [employer] on 06-20-2023 Ammonia (P) [Moles/Vol] 15 umol/L [...] Comment on above: Interpretive Data: T pee [employer] (CHEST, 1991, 102:[id number]) [...] 06-20-2023 Magnesium [Mass/Vol] 2.1 mg/dL Normal 1.8-2.4 [facility] ([place]) Comment on above: Performed By: #### M G ####[address] [place], [place] [address] Magnesium [Mass/Vol] 1.7 mg/dL Low 1.8-2.4 [facility] ([place]) Comment on above: Performed By: #### M G ####[address] [place], [place] [address] MRI BRAIN W/O CONTRASTon MRI BRAIN W/O [...] Ordering Provider: ANA MARIA Robertson [facility] ([place]) PHOSon 06-20-2023 Phosphate [Mass/Vol] 2.9 mg/dL Normal 2.7-4.5 [facility] ([place]) Comment on above: Performed By: #### P HOS, PRO, AMM ####[address] [place], [place] [address] PROon 06-20-2023 PT Coag (PPP) [Time] 9.8 s Normal 9.0-14.4 [facility] ([place]) Comment on above: Performed By: #### P HOS, PRO, AMM ####[address] [place] [address] PT International Ratio 0.8 Normal [facility] ([place]) Comment on above: Result Comment: The [employer] (CHEST, 1992, 102:[id number]) recommended therapeutic range for oral anticoagulant therapy is: LOW RISK: Prophylaxis of venous thrombosis INR: 2.0-3.0 Treatment of pulmonary embolism 2.0-3.0 Prevention of systemic embolism 2.0-3.0 HIGH RISK: Mechanical prosthetic valves 2.5-3.5 Performed By: #### P HOS, PRO, AMM ####[id number] [address] UDRUGon 06-20-2023 Amphetamine (u) Negative Normal Negative [facility] ([place]) Comment on above: Performed By: #### U DRUG #### [place] [address] Barbiturate (u) Negative Normal Negative [facility] ([place]) Comment on above: Performed By: #### U DRUG #### [address] [address] Benzodiazepine (u) Negative Normal Negative [facility] ([place]) Comment on above: Performed By: #### U DRUG #### [address] [address] Cannabinoid (u) Negative Normal Negative [facility] ([place]) Comment on above: Performed By: #### U DRUG #### [place] [id number] Cocaine Ql (U) Negative Normal Negative [facility] ([place]) Comment on above: Performed By: #### U DRUG #### [place] [id number] Methadone Ql (U) Negative Normal Negative [facility] ([place]) Comment on above: Performed By: #### U DRUG #### Angel [address] [address] Opiate (u) Negative Normal Negative [facility] ([place]) Comment on above: Performed By: #### U DRUG #### Angel [address] [address] PCP (u) Negative Normal Negative [facility] ([place]) Comment on above: Performed By: #### U DRUG #### Angel [address] [address] Urine Drugs screened: See Below Normal [facility] ([place]) Comment on above: Result Comment: This drug [...] Performed By: #### U DRUG #### Angel [address] [address] XR CHEST 1 VIEWon 06-20-2023 XR CHEST [...] 06/20/2023 3:12:39 AM Ordering Provider: MICHAEL PADRON [facility] ([place]) Absolute lymphocyte countOrd ered By: Carmelo Mccray on 06-19-2023 Lymphocytes Auto (Unsp spec) [#/Vol] 2.47 10*3/uL 0.83-4.51 [facility] Automated lymphocyte count a s percentage of total leukocytesOrdered By: Carmelo Mccray on 06-19-2023 Lymphocytes/100 WBC Auto (Unsp spec) 28.9 % 19-41 [facility] Basophil percentageOrdered B y: Carmelo Mccray on 06-19-2023 Basophils/100 WBC (Bld) 0.9 % 0-1 [facility] Chloride [Moles/Vol] 108 mmol/L 98-107 [facility] Eosinophils/100 WBC (Bld) 0.6 % 0-5 [facility] Glucose [Mass/Vol] 84 mg/dL 74-106 [facility] Hemoglobin (Bld) [Mass/Vol] 14.8 g/dL 13.0-16.5 [facility] Monocytes/100 WBC (Bld) 8.4 % 0-10 [facility] Neutrophils (Bld) [#/Vol] 5.2 10*3/uL 2.0-7.7 [facility] Neutrophils/100 WBC (Bld) 60.8 % 47-70 [facility] Potassium [Moles/Vol] 3.7 mmol/L 3.5-5.1 [facility] Sodium [Moles/Vol] 140 mmol/L 136-145 [facility] WBC (Bld) [#/Vol] 8.6 10*3/uL 4.4-11.0 [facility] Determination of erythrocyte mean corpuscular volume (MCV)Ordered By: Carmelo Mccray on 06-19-2023 MCV (RBC) [Entitic vol] 95.8 fL 80-94 [facility] Erythrocyte distribution wid th ratioOrdered By: Carmelo Mccray on 06-19-2023 Erythrocyte distribution width (RBC) [Ratio] 12.0 % 11.6-14.6 [facility] Erythrocyte distribution wid th standard deviationOrdered By: Carmelo Mccray on 06-19-2023 Erythrocyte distribution width (RBC) [Entitic vol] 41.5 fL 35.1-43.9 [facility] Hematocrit Auto (Bld) [Volum e fraction]Ordered By: Carmelo Mccray on 06-19-2023 Hematocrit (Bld) [Volume fraction] 42.9 % 40-54 [facility] Immature granulocytes/100 WB C Auto (Bld)Ordered By: Carmelo Mccray on 06-19-2023 Immature granulocytes/100 WBC (Bld) 0.400 % 0.0-0.9 [facility] Comment on above: IG% - Immature Granu locytes (promyelocytes, myelocytes and metamyelocytes) > 1% indicates that a LEFT SHIFT is Present. Laboratory - Chemistry and C hemistry - challengeOrdered By: Carmelo Mccray on 06-19-2023 CO2 [Moles/Vol] 27.0 mmol/L 21.0-32.0 [facility] Urea nitrogen/Creatinine [Mass ratio] 10.0 mg/mg 10-20 [facility] Laboratory - Hematology and Cell countsOrdered By: Carmelo Mccray on 06-19-2023 MCH (RBC) [Entitic mass] 33.0 pg 27.0-32.0 [facility] MCHC (RBC) [Mass/Vol] 34.5 g/dL 32-36 [facility] Nucleated RBC/100 WBC (Bld) [Ratio] 0 % 0-5 [facility] Platelet mean volume (Bld) [Entitic vol] 9.6 fL 6.2-12.0 [facility] Platelets (Bld) [#/Vol] 263 10*3/uL 150-450 [facility] Laboratory - Microbiology an d Antimicrobial susceptibilityOrdered By: Carmelo Mccray on 06-19-2023 SARS-CoV-2 (COVID-19) RNA DOMINIC+probe Ql (Unsp spec) [facility] No Panel InformationOrdered By: Carmelo Mccray on 06-19-2023 Estimated Creatinine Clearance Calc 145.96 ml/min [facility] Estimated GFR (MDRD) Amer 131 mL/min >60 [facility] Comment on above: GFR Calc Estimated GFR (MDRD) Non-Af Amer 108 mL/min >60 [facility] Comment on above: Non- GFR Calc Troponin I High Sensitivity 10 pg/mL 3.0-78.0 [facility] Comment on above: Please Note: New Rhea t Units and Gender Specific Reference Ranges. For more information see Policy Stat Procedure [place] High Sensitivity Troponin (TNIH) and attachments. RBC Auto (Bld) [#/Vol]Ordere d By: Carmelo Mccray on 06-19-2023 RBC (Bld) [#/Vol] 4.48 10*6/uL 4.6-6.2 [facility] Serum or plasma calcium gaetano urement (mass/volume)Ordered By: Carmelo Mccray on 06-19-2023 Calcium [Mass/Vol] 8.9 mg/dL 8.5-10.1 [facility] Serum or plasma creatinine m easurement (mass/volume)Ordered By: Carmelo Mccray on 06-19-2023 Creatinine [Mass/Vol] 0.90 mg/dL 0.70-1.30 [facility] Comment on above: The validity of the calculated GFR & GFRAA in patients over 70 years has not been determined. Clinical correlation is essential. Serum or plasma urea nitroge n measurement (mass/volume)Ordered By: Carmelo Mccray on 06-19-2023 Urea nitrogen [Mass/Vol] 9 mg/dL 7-18 [facility] Thin prep Papanicolaou smear with manual screeningOrdered By: Carmelo Mccray on 06-19-2023 Thin prep Papanicolaou smear with manual screening 5 5-15 [facility] Absolute lymphocyte countOrd ered By: Marcio Cardona on 05-01-2023 Lymphocytes Auto (Unsp spec) [#/Vol] 4.15 10*3/uL 0.83-4.51 [facility] Automated lymphocyte count a s percentage of total leukocytesOrdered By: Marcio Cardona on 05-01-2023 Lymphocytes/100 WBC Auto (Unsp spec) 41.9 % 19-41 [facility] Basophil percentageOrdered B y: Jacquie White on 05-01-2023 Basophil percentage 3.4 mg/dL 2.5-4.9 [facility] Basophil percentageOrdered B y: Marcio Cardona on 05-01-2023 Basophils/100 WBC (Bld) 1.2 % 0-1 [facility] Bilirubin [Mass/Vol] 0.60 mg/dL 0.20-1.00 [facility] Comment on above: For patients on eltr ombopag therapy, use of Dimension [place] TBIL is not recommended. Chloride [Moles/Vol] 107 mmol/L 98-107 [facility] Eosinophils/100 WBC (Bld) 0.3 % 0-5 [facility] Glucose [Mass/Vol] 130 mg/dL 74-106 [facility] Comment on above: Fasting Glucose resu lt greater than or equal to 126 mg/dL suggests DIABETES MELLITUS per A.D.A. criteria. Hemoglobin (Bld) [Mass/Vol] 18.1 g/dL 13.0-16.5 [facility] Comment on above: CRITICAL VALUE VERIF IED. CALLED TO Lynn HAMPTON05/01/23 0559 [address].RESULTS READ BACK BY SAME. Monocytes/100 WBC (Bld) 6.5 % 0-10 [facility] Neutrophils (Bld) [#/Vol] 4.9 10*3/uL 2.0-7.7 [facility] Neutrophils/100 WBC (Bld) 49.6 % 47-70 [facility] Potassium [Moles/Vol] 3.8 mmol/L 3.5-5.1 [facility] Protein [Mass/Vol] 7.8 g/dL 6.4-8.2 [facility] Sodium [Moles/Vol] 143 mmol/L 136-145 [facility] WBC (Bld) [#/Vol] 9.9 10*3/uL 4.4-11.0 [facility] Blood manual differential co mment interpretation (narrative result)Ordered By: Marcio Cardona on 05-01-2023 Manual differential comment Isacc (Bld) [Interp] SCANNED [facility] Determination of erythrocyte mean corpuscular volume (MCV)Ordered By: Marcio Cardona on 05-01-2023 MCV (RBC) [Entitic vol] 93.3 fL 80-94 [facility] Erythrocyte distribution wid th ratioOrdered By: Marcio Cardona on 05-01-2023 Erythrocyte distribution width (RBC) [Ratio] 12.8 % 11.6-14.6 [facility] Erythrocyte distribution wid th standard deviationOrdered By: Marcio Cardona on 05-01-2023 Erythrocyte distribution width (RBC) [Entitic vol] 44.0 fL 35.1-43.9 [facility] Hematocrit Auto (Bld) [Volum e fraction]Ordered By: Marcio Cardona on 05-01-2023 Hematocrit (Bld) [Volume fraction] 51.3 % 40-54 [facility] Immature granulocytes/100 WB C Auto (Bld)Ordered By: Marcio Cardona on 05-01-2023 Immature granulocytes/100 WBC (Bld) 0.500 % 0.0-0.9 [facility] Comment on above: IG% - Immature Granu locytes (promyelocytes, myelocytes and metamyelocytes) > 1% indicates that a LEFT SHIFT is Present. Laboratory - Chemistry and C hemistry - challengeOrdered By: Marcio Cardona on 05-01-2023 Albumin/Globulin [Mass ratio] 1.1 {ratio} 0.9-2.4 [facility] ALP [Catalytic activity/Vol] 92 U/L 45-117 [facility] ALT [Catalytic activity/Vol] 49 U/L 16-61 [facility] CO2 [Moles/Vol] 26.0 mmol/L 21.0-32.0 [facility] Globulin (S) [Mass/Vol] 3.7 g/dL 2.2-4.2 [facility] Urea nitrogen/Creatinine [Mass ratio] 6.4 mg/mg 10-20 [facility] Laboratory - Chemistry and C hemistry - challengeOrdered By: Jacquie Beckwith on 05-01-2023 Magnesium [Mass/Vol] 2.1 mg/dL 1.6-2.6 [facility] Laboratory - CoagulationOrde red By: Marcio Cardona on 05-01-2023 INR Coag (Bld) [Relative time] 1.0 {INR} [facility] PT Coag (PPP) [Time] 13.5 s 11.7-14.9 [facility] Laboratory - Drug toxicology Ordered By: Marcio Cardona on 05-01-2023 Amphetamines Ql (U) Negative <1000 ng/mL [facility] Benzodiazepines Ql (U) Negative < 200 ng/mL [facility] Cannabinoids Screen Ql (U) Negative < 50 ng/mL [facility] Cocaine Ql (U) Negative < 300 ng/mL [facility] Opiates Ql (U) Negative < 300 ng/mL [facility] Laboratory - Hematology and Cell countsOrdered By: Marcio Cardona on 05-01-2023 MCH (RBC) [Entitic mass] 32.9 pg 27.0-32.0 [facility] MCHC (RBC) [Mass/Vol] 35.3 g/dL 32-36 [facility] Nucleated RBC/100 WBC (Bld) [Ratio] 0 % 0-5 [facility] Platelet mean volume (Bld) [Entitic vol] 9.1 fL 6.2-12.0 [facility] Platelets (Bld) [#/Vol] 371 10*3/uL 150-450 [facility] No Panel InformationOrdered By: Marcio Cardona on 05-01-2023 Estimated GFR (MDRD) Amer 125 mL/min >60 [facility] Comment on above: GFR Calc Estimated GFR (MDRD) Non-Af Amer 103 mL/min >60 [facility] Comment on above: Non- GFR Calc Ethyl Alcohol Level 208.0 mg/dL [facility] Comment on above: The serum:whole bloo d ethanol ratio is approximately 1.14and varies slightly with hematocrit. Medical Alcohol reference interval and critical value innon-tolerant individuals; 50 - 100 Impairment 100 Intoxication 100 - 250 Severe Poisoning 250 - 400 Deep/possible fatal coma MDMA (Ecstasy) Screen Negative < 500 ng/mL [facility] Urine Barbiturates Screen Negative < 200 ng/mL [facility] Urine Drug Screen Comment [facility] Comment on above: CONFIRMATORY TESTING FOR [...] Methadone Screen Negative < 300 ng/mL [facility] RBC Auto (Bld) [#/Vol]Ordere d By: Marcio Cardona on 05-01-2023 RBC (Bld) [#/Vol] 5.50 10*6/uL 4.6-6.2 [facility] Review by pathologistOrdered By: Marcio Cardona on 05-01-2023 Pathologist review Isacc (Unsp spec) [Interp] Cheryl holland [facility] Pathologist review Isacc (Unsp spec) [Interp] Reviewed [facility] Comment on above: Previous reported re sult: Cheryl holland Edited by: МАРИНА on 05/02/23:0932PolycythemiaClinical correlation necessary.Mahesh Sharma M.D. 05/02/23 AMENDED REPORT 05/02/23 0932 PATH REV previously reported as: Cheryl holland Serum or plasma calcium gaetano urement (mass/volume)Ordered By: Marcio Cardona on 05-01-2023 Calcium [Mass/Vol] 8.6 mg/dL 8.5-10.1 [facility] Serum or plasma creatinine m easurement (mass/volume)Ordered By: Marcio Cardona on 05-01-2023 Creatinine [Mass/Vol] 0.94 mg/dL 0.70-1.30 [facility] Comment on above: The validity of the calculated GFR & GFRAA in patients over 70 years has not been determined. Clinical correlation is essential. Serum or plasma urea nitroge n measurement (mass/volume)Ordered By: Marcio Cardona on 05-01-2023 Urea nitrogen [Mass/Vol] 6 mg/dL 7-18 [facility] Thin prep Papanicolaou smear with manual screeningOrdered By: Marcio Cardona on 05-01-2023 Thin prep Papanicolaou smear with manual screening 4.1 g/dL 3.2-5.0 [facility] Thin prep Papanicolaou smear with manual screening 31 U/L 15-37 [facility] Thin prep Papanicolaou smear with manual screening 10 5-15 [facility] Urine phencyclidine (PCP) de tectionOrdered By: Marcio Cardona on 05-01-2023 Phencyclidine Ql (U) Negative < 25 ng/mL [facility] Basophil percentageOrdered B y: Jacquie Beckwith on 03-23-2023 Basophil percentage 2.9 mg/dL 2.5-4.9 [facility] - Chemistry and C hemistry - challengeOrdered By: Jacquie Beckwith on 03-23-2023 Magnesium [Mass/Vol] 2.0 mg/dL 1.6-2.6 [facility] - CoagulationOrde red By: Stan Thomas on 03-23-2023 INR Coag (Bld) [Relative time] 0.9 {INR} [facility] PT Coag (PPP) [Time] 12.2 s 11.7-14.9 [facility] Absolute lymphocyte countOrd ered By: Daquan Reid on 03-22-2023 Lymphocytes Auto (Unsp spec) [#/Vol] 3.11 10*3/uL 0.83-4.51 [facility] Automated lymphocyte count a s percentage of total leukocytesOrdered By: Daquan Reid on 03-22-2023 Lymphocytes/100 WBC Auto (Unsp spec) 34.2 % 19-41 [facility] Basophil percentageOrdered B y: Daquan Reid on 03-22-2023 Basophils/100 WBC (Bld) 0.8 % 0-1 [facility] Bilirubin [Mass/Vol] 0.70 mg/dL 0.20-1.00 [facility] Comment on above: For patients on eltr ombopag therapy, use of Dimension [place] TBIL is not recommended. Chloride [Moles/Vol] 108 mmol/L 98-107 [facility] Eosinophils/100 WBC (Bld) 0.1 % 0-5 [facility] Glucose [Mass/Vol] 117 mg/dL 74-106 [facility] Comment on above: Fasting Glucose resu lt from 100 to 125 mg/dL suggests IMPAIRED HOMEOSTASIS per A.D.A. criteria. Hemoglobin (Bld) [Mass/Vol] 16.8 g/dL 13.0-16.5 [facility] Monocytes/100 WBC (Bld) 6.3 % 0-10 [facility] Neutrophils (Bld) [#/Vol] 5.3 10*3/uL 2.0-7.7 [facility] Neutrophils/100 WBC (Bld) 58.3 % 47-70 [facility] Potassium [Moles/Vol] 4.0 mmol/L 3.5-5.1 [facility] Protein [Mass/Vol] 8.1 g/dL 6.4-8.2 [facility] Sodium [Moles/Vol] 140 mmol/L 136-145 [facility] WBC (Bld) [#/Vol] 9.1 10*3/uL 4.4-11.0 [facility] Determination of erythrocyte mean corpuscular volume (MCV)Ordered By: Daquan Reid on 03-22-2023 MCV (RBC) [Entitic vol] 88.6 fL 80-94 [facility] Erythrocyte distribution wid th ratioOrdered By: Daquan Reid on 03-22-2023 Erythrocyte distribution width (RBC) [Ratio] 12.4 % 11.6-14.6 [facility] Erythrocyte distribution wid th standard deviationOrdered By: Daquan Reid on 03-22-2023 Erythrocyte distribution width (RBC) [Entitic vol] 40.2 fL 35.1-43.9 [facility] Hematocrit Auto (Bld) [Volum e fraction]Ordered By: Daquan Reid on 03-22-2023 Hematocrit (Bld) [Volume fraction] 46.8 % 40-54 [facility] Immature granulocytes/100 WB C Auto (Bld)Ordered By: Daquan Reid on 03-22-2023 Immature granulocytes/100 WBC (Bld) 0.300 % 0.0-0.9 [facility] Comment on above: IG% - Immature Granu locytes (promyelocytes, myelocytes and metamyelocytes) > 1% indicates that a LEFT SHIFT is Present. Laboratory - Chemistry and C hemistry - challengeOrdered By: Daquan Reid on 03-22-2023 Albumin/Globulin [Mass ratio] 1.2 {ratio} 0.9-2.4 [facility] ALP [Catalytic activity/Vol] 105 U/L 45-117 [facility] ALT [Catalytic activity/Vol] 27 U/L 16-61 [facility] CO2 [Moles/Vol] 25.0 mmol/L 21.0-32.0 [facility] Globulin (S) [Mass/Vol] 3.7 g/dL 2.2-4.2 [facility] Urea nitrogen/Creatinine [Mass ratio] 8.1 mg/mg 10-20 [facility] Laboratory - Chemistry and C hemistry - challengeOrdered By: Stan Thomas on 03-22-2023 Amylase [Catalytic activity/Vol] 34 U/L 15- [facility] - Drug toxicology Ordered By: Daquan Reid on 03-22-2023 Amphetamines Ql (U) Negative <1000 ng/mL [facility] Benzodiazepines Ql (U) Negative < 200 ng/mL [facility] Cannabinoids Screen Ql (U) Negative < 50 ng/mL [facility] Cocaine Ql (U) Negative < 300 ng/mL [facility] Opiates Ql (U) Negative < 300 ng/mL [facility] Laboratory - Hematology and Cell countsOrdered By: Daquan Reid on 03-22-2023 MCH (RBC) [Entitic mass] 31.8 pg 27.0-32.0 [facility] MCHC (RBC) [Mass/Vol] 35.9 g/dL 32-36 [facility] Nucleated RBC/100 WBC (Bld) [Ratio] 0 % 0-5 [facility] Platelet mean volume (Bld) [Entitic vol] 9.2 fL 6.2-12.0 [facility] Platelets (Bld) [#/Vol] 367 10*3/uL 150-450 [facility] No Panel InformationOrdered By: Daquan Reid on 03-22-2023 Estimated Creatinine Clearance Calc 138.63 ml/min [facility] Estimated GFR (MDRD) Amer 137 mL/min >60 [facility] Comment on above: GFR Calc Estimated GFR (MDRD) Non-Af Amer 113 mL/min >60 [facility] Comment on above: Non- GFR Calc Ethyl Alcohol Level 212.0 mg/dL [facility] Comment on above: The serum:whole bloo d ethanol ratio is approximately 1.14and varies slightly with hematocrit. Medical Alcohol reference interval and critical value innon-tolerant individuals; 50 - 100 Impairment 100 Intoxication 100 - 250 Severe Poisoning 250 - 400 Deep/possible fatal coma MDMA (Ecstasy) Screen Negative < 500 ng/mL [facility] Urine Barbiturates Screen Negative < 200 ng/mL [facility] Urine Drug Screen Comment See comment [facility] Comment on above: CONFIRMATORY TESTING FOR [...] UTCAPrevious reported result: Edited by: QI on 03/22/23:1157 AMENDED REPORT 03/22/232326 TO BE CONFIRMED previously [...] Methadone Screen Negative < 300 ng/mL [facility] RBC Auto (Bld) [#/Vol]Ordere d By: Daquan Reid on 03-22-2023 RBC (Bld) [#/Vol] 5.28 10*6/uL 4.6-6.2 [facility] Serum or plasma calcium gaetano urement (mass/volume)Ordered By: Daquan Reid on 03-22-2023 Calcium [Mass/Vol] 9.1 mg/dL 8.5-10.1 [facility] Serum or plasma creatinine m easurement (mass/volume)Ordered By: Daquan Reid on 03-22-2023 Creatinine [Mass/Vol] 0.86 mg/dL 0.70-1.30 [facility] Comment on above: The validity of the calculated GFR & GFRAA in patients over 70 years has not been determined. Clinical correlation is essential. Serum or plasma urea nitroge n measurement (mass/volume)Ordered By: Daquan Reid on 03-22-2023 Urea nitrogen [Mass/Vol] 7 mg/dL 7-18 [facility] Thin prep Papanicolaou smear with manual screeningOrdered By: Daquan Reid on 03-22-2023 Thin prep Papanicolaou smear with manual screening 4.4 g/dL 3.2-5.0 [facility] Thin prep Papanicolaou smear with manual screening 18 U/L 15-37 [facility] Thin prep Papanicolaou smear with manual screening 7 5-15 [facility] Urine phencyclidine (PCP) de tectionOrdered By: Daquan Reid on 03-22-2023 Phencyclidine Ql (U) Negative < 25 ng/mL [facility] Absolute lymphocyte countOrd ered By: Cadence Cornelius on 08-05-2022 Lymphocytes Auto (Unsp spec) [#/Vol] 2.36 10*3/uL 0.83-4.51 [facility] Basophil percentageOrdered B y: Cadence Cornelius on 08-05-2022 Basophils/100 WBC (Bld) 1.0 % 0-1 [facility] Bilirubin [Mass/Vol] 0.70 mg/dL 0.20-1.00 [facility] Comment on above: For patients on eltr ombopag therapy, use of Dimension [place] TBIL is not recommended. Chloride [Moles/Vol] 109 mmol/L 98-107 [facility] Eosinophils/100 WBC (Bld) 0.3 % 0-5 [facility] Glucose [Mass/Vol] 116 mg/dL 74-106 [facility] Comment on above: Fasting Glucose resu lt from 100 to 125 mg/dL suggests IMPAIRED HOMEOSTASIS per A.D.A. criteria. Neutrophils (Bld) [#/Vol] 4.0 10*3/uL 2.0-7.7 [facility] Neutrophils/100 WBC (Bld) 56.8 % 47-70 [facility] Potassium [Moles/Vol] 4.0 mmol/L 3.5-5.1 [facility] Protein [Mass/Vol] 6.4 g/dL 6.4-8.2 [facility] Sodium [Moles/Vol] 143 mmol/L 136-145 [facility] WBC (Bld) [#/Vol] 7.1 10*3/uL 4.4-11.0 [facility] Blood erythrocytes count (nu mber/volume)Ordered By: Cadence Cornelius on 08-05-2022 RBC (Bld) [#/Vol] 4.56 10*6/uL 4.6-6.2 [facility] Blood hemoglobin measurement (mass/volume)Ordered By: Cadence Cornelius on 08-05-2022 Hemoglobin (Bld) [Mass/Vol] 14.6 g/dL 13.0-16.5 [facility] Blood lymphocytes/100 leukoc ytesOrdered By: Cadence Cornelius on 08-05-2022 Lymphocytes/100 WBC (Bld) 33.2 % 19-41 [facility] Blood monocytes/100 leukocyt esOrdered By: Cadence Cornelius on 08-05-2022 Monocytes/100 WBC (Bld) 8.3 % 0-10 [facility] Blood platelet mean volumeOr dered By: Cadence Cornelius on 08-05-2022 Platelet mean volume (Bld) [Entitic vol] 9.1 fL 6.2-12.0 [facility] Determination of erythrocyte mean corpuscular volume (MCV)Ordered By: Cadence Cornelius on 08-05-2022 MCV (RBC) [Entitic vol] 90.6 fL 80-94 [facility] Direct bilirubinOrdered By: Cadence Cornelius on 08-05-2022 Bilirubin.direct [Mass/Vol] 0.19 mg/dL 0.00-0.30 [facility] Hematocrit Auto (Bld) [Volum e fraction]Ordered By: Cadence Cornelius on 08-05-2022 Hematocrit (Bld) [Volume fraction] 41.3 % 40-54 [facility] Laboratory - Chemistry and C hemistry - challengeOrdered By: Cadence Cornelius on 08-05-2022 ALP [Catalytic activity/Vol] 73 U/L 45-117 [facility] ALT [Catalytic activity/Vol] 24 U/L 16-61 [facility] CO2 [Moles/Vol] 28.0 mmol/L 21.0-32.0 [facility] Globulin (S) [Mass/Vol] 2.9 g/dL 2.2-4.2 [facility] Urea nitrogen/Creatinine [Mass ratio] 10.0 mg/mg 10-20 [facility] - Drug toxicology Ordered By: Cadence Cornelius on 08-05-2022 Amphetamines Ql (U) Negative <1000 ng/mL [facility] Benzodiazepines Ql (U) Negative < 200 ng/mL [facility] Cannabinoids Screen Ql (U) Negative < 50 ng/mL [facility] Cocaine Ql (U) Positive < 300 ng/mL [facility] Opiates Ql (U) Negative < 300 ng/mL [facility] Laboratory - Hematology and Cell countsOrdered By: Cadence Cornelius on 08-05-2022 Erythrocyte distribution width (RBC) [Entitic vol] 38.1 fL 35.1-43.9 [facility] Erythrocyte distribution width (RBC) [Ratio] 11.6 % 11.6-14.6 [facility] Immature granulocytes/100 WBC (Bld) 0.400 % 0.0-0.9 [facility] Comment on above: IG% - Immature Granu locytes (promyelocytes, myelocytes and metamyelocytes) > 1% indicates that a LEFT SHIFT is Present. MCH (RBC) [Entitic mass] 32.0 pg 27.0-32.0 [facility] Nucleated RBC/100 WBC (Bld) [Ratio] 0 % 0-5 [facility] MCHC Auto (RBC) [Mass/Vol]Or dered By: Cadence Cornelius on 08-05-2022 MCHC (RBC) [Mass/Vol] 35.4 g/dL 32-36 [facility] No Panel InformationOrdered By: Cadence Cornelius on 08-05-2022 MDMA (Ecstasy) Screen Negative < 500 ng/mL [facility] Urine Barbiturates Screen Negative < 200 ng/mL [facility] Urine Drug Screen Comment [facility] Comment on above: CONFIRMATORY TESTING FOR [...] Methadone Screen Negative < 300 ng/mL [facility] Estimated Creatinine Clearance Calc 150.34 ml/min [facility] Estimated GFR (MDRD) Amer 151 mL/min >60 [facility] Comment on above: GFR Calc Estimated GFR (MDRD) Non-Af Amer 125 mL/min >60 [facility] Comment on above: Non- GFR Calc Ethyl Alcohol Level 219.0 mg/dL [facility] Comment on above: The serum:whole bloo d ethanol ratio is approximately 1.14and varies slightly with hematocrit. Medical Alcohol reference interval and critical value innon-tolerant individuals; 50 - 100 Impairment 100 Intoxication 100 - 250 Severe Poisoning 250 - 400 Deep/possible fatal coma Platelets bldOrdered By: Geraldine Cornelius on 08-05-2022 Platelets (Bld) [#/Vol] 249 10*3/uL 150-450 [facility] Serum or plasma albumin gaetano urement (mass/volume)Ordered By: Cadence Cornelius on 08-05-2022 Albumin [Mass/Vol] 3.5 g/dL 3.2-5.0 [facility] Serum or plasma calcium gaetano urement (mass/volume)Ordered By: Cadence Cornelius on 08-05-2022 Calcium [Mass/Vol] 8.2 mg/dL 8.5-10.1 [facility] Serum or plasma creatinine m easurement (mass/volume)Ordered By: Cadence Cornelius on 08-05-2022 Creatinine [Mass/Vol] 0.80 mg/dL 0.70-1.30 [facility] Comment on above: The validity of the calculated GFR & GFRAA in patients over 70 years has not been determined. Clinical correlation is essential. Serum or plasma urea nitroge n measurement (mass/volume)Ordered By: Cadence Cornelius on 08-05-2022 Urea nitrogen [Mass/Vol] 8 mg/dL 7-18 [facility] Thin prep Papanicolaou smear with manual screeningOrdered By: Cadence Cornelius on 08-05-2022 Thin prep Papanicolaou smear with manual screening 17 U/L 15-37 [facility] Thin prep Papanicolaou smear with manual screening 6 5-15 [facility] Urine phencyclidine (PCP) de tectionOrdered By: Cadence Cornelius on 08-05-2022 Phencyclidine Ql (U) Negative < 25 ng/mL [facility] Vital Signs Date Time Vital Sign Value Performing Clinician Facility 10-19-2024 15:33-0400 Body temperature 98.4 [degF] No Primary Care Physician [facility] 10-19-2024 15:33-0400 Diastolic blood pressure 59 mm[Hg] No Primary Care Physician [facility] 10-19-2024 15:33-0400 Heart rate 76 /min No Primary Care Physician [facility] 10-19-2024 15:33-0400 Respiratory rate 16 /min No Primary Care Physician [facility] 10-19-2024 15:33-0400 SaO2% (BldA) [Mass fraction] 98 % No Primary Care Physician [facility] 10-19-2024 15:33-0400 Systolic blood pressure 116 mm[Hg] No Primary Care Physician [facility] 10-19-2024 13:48-0400 Body height 180.34 cm No Primary Care Physician [facility] 10-19-2024 13:48-0400 Body weight 77.11 kg No Primary Care Physician [facility] 10-18-2024 19:47-0400 Body mass index (BMI) [Ratio] 23.7 kg/m2 No Primary Care Physician [facility] 10-18-2024 18:23-0400 Body temperature 98.9 [degF] No Primary Care Physician [facility] 10-18-2024 18:23-0400 Diastolic blood pressure 68 mm[Hg] No Primary Care Physician [facility] 10-18-2024 18:23-0400 Heart rate 90 /min No Primary Care Physician [facility] 10-18-2024 18:23-0400 Respiratory rate 16 /min No Primary Care Physician [facility] 10-18-2024 18:23-0400 SaO2% (BldA) [Mass fraction] 100 % No Primary Care Physician [facility] 10-18-2024 18:23-0400 Systolic blood pressure 123 mm[Hg] No Primary Care Physician [facility] 10-18-2024 15:58-0400 Body height 180.34 cm No Primary Care Physician [facility] 10-18-2024 15:58-0400 Body mass index (BMI) [Ratio] 23.7 kg/m2 No Primary Care Physician [facility] 10-18-2024 15:58-0400 Body weight 77.24 kg No Primary Care Physician [facility] 10-18-2024 15:50-0400 Body temperature 98.4 [degF] No Primary Care Physician [facility] 10-18-2024 15:50-0400 Diastolic blood pressure 63 mm[Hg] No Primary Care Physician [facility] 10-18-2024 15:50-0400 Heart rate 112 /min No Primary Care Physician [facility] 10-18-2024 15:50-0400 Respiratory rate 18 /min No Primary Care Physician [facility] 10-18-2024 15:50-0400 SaO2% (BldA) [Mass fraction] 97 % No Primary Care Physician [facility] 10-18-2024 15:50-0400 Systolic blood pressure 122 mm[Hg] No Primary Care Physician [facility] 10-18-2024 15:03-0400 Body height 180.34 cm No Primary Care Physician [facility] 10-18-2024 15:03-0400 Body mass index (BMI) [Ratio] 24 kg/m2 No Primary Care Physician [facility] 10-18-2024 15:03-0400 Body weight 78.2 kg No Primary Care Physician [facility] 10-14-2024 12:55-0400 Respiratory rate 16 /min Kristian Parekh MD Work Phone: [facility] 10-14-2024 12:43-0400 Body temperature 97.81 [degF] Kristian Parekh MD Work Phone: [facility] 10-14-2024 12:43-0400 Diastolic blood pressure 76 mm[Hg] Kristian Parekh MD Work Phone: [facility] 10-14-2024 12:43-0400 Heart rate 72 /min Kristian Parekh MD Work Phone: [facility] 10-14-2024 12:43-0400 SaO2% (BldA) [Mass fraction] 96 % Kristian Parekh MD Work Phone: [facility] 10-14-2024 12:43-0400 Systolic blood pressure 121 mm[Hg] Kristian Parekh MD Work Phone: [facility] 10-12-2024 23:15-0400 Body height 180.3 cm Kristian Parekh MD Work Phone: [facility] 10-12-2024 23:15-0400 Body mass index (BMI) [Ratio] 24.13 kg/m2 Kristian Parekh MD Work Phone: [facility] 10-12-2024 23:15-0400 Body weight 78.47 kg Kristian Parekh MD Work Phone: [facility] 10-11-2024 15:13-0400 Respiratory rate 16 /min [facility] 10-11-2024 14:29-0400 Body temperature 98.01 [degF] [facility] 10-11-2024 14:29-0400 Diastolic blood pressure 76 mm[Hg] [facility] 10-11-2024 14:29-0400 Heart rate 77 /min [facility] 10-11-2024 14:29-0400 SaO2% (BldA) [Mass fraction] 97 % [facility] 10-11-2024 14:29-0400 Systolic blood pressure 124 mm[Hg] [facility] 10-08-2024 00:54-0400 Body height 180.3 cm [facility] 10-08-2024 00:54-0400 Body mass index (BMI) [Ratio] 24.41 kg/m2 [facility] 10-08-2024 00:54-0400 Body weight 79.38 kg [facility] 10-05-2024 13:15-0400 Respiratory rate 16 /min [facility] 10-05-2024 11:25-0400 Diastolic blood pressure 76 mm[Hg] [facility] 10-05-2024 11:25-0400 Heart rate 107 /min [facility] 10-05-2024 11:25-0400 SaO2% (BldA) [Mass fraction] 98 % [facility] 10-05-2024 11:25-0400 Systolic blood pressure 124 mm[Hg] [facility] 10-05-2024 11:00-0400 Body temperature 100.9 [degF] [facility] 10-05-2024 04:00-0400 Body height 180.3 cm [facility] 10-05-2024 04:00-0400 Body mass index (BMI) [Ratio] 23.98 kg/m2 [facility] 10-05-2024 04:00-0400 Body weight 78 kg [facility] 10-04-2024 11:56-0400 Respiratory rate 16 /min [facility] 10-04-2024 11:23-0400 Body temperature 98.01 [degF] [facility] 10-04-2024 11:23-0400 Diastolic blood pressure 70 mm[Hg] [facility] 10-04-2024 11:23-0400 Heart rate 110 /min [facility] 10-04-2024 11:23-0400 SaO2% (BldA) [Mass fraction] 96 % [facility] 10-04-2024 11:23-0400 Systolic blood pressure 150 mm[Hg] [facility] 10-04-2024 07:15-0400 Body height 180.3 cm [facility] 10-04-2024 07:15-0400 Body mass index (BMI) [Ratio] 24.27 kg/m2 [facility] 10-04-2024 07:15-0400 Body weight 78.93 kg [facility] 10-02-2024 08:18-0400 Body temperature 97.9 [degF] No Primary Care Physician [facility] 10-02-2024 08:18-0400 Diastolic blood pressure 78 mm[Hg] No Primary Care Physician [facility] 10-02-2024 08:18-0400 Heart rate 97 /min No Primary Care Physician [facility] 10-02-2024 08:18-0400 Respiratory rate 16 /min No Primary Care Physician [facility] 10-02-2024 08:18-0400 SaO2% (BldA) [Mass fraction] 98 % No Primary Care Physician [facility] 10-02-2024 08:18-0400 Systolic blood pressure 132 mm[Hg] No Primary Care Physician [facility] 10-02-2024 04:55-0400 Body height 180.34 cm No Primary Care Physician [facility] 10-02-2024 04:55-0400 Body mass index (BMI) [Ratio] 25.4 kg/m2 No Primary Care Physician [facility] 10-02-2024 04:55-0400 Body weight 83 kg No Primary Care Physician [facility] 10-02-2024 04:06-0400 Body height 180.34 cm No Primary Care Physician [facility] 10-02-2024 04:06-0400 Body mass index (BMI) [Ratio] 25.4 kg/m2 No Primary Care Physician [facility] 10-02-2024 04:06-0400 Body temperature 98.4 [degF] No Primary Care Physician [facility] 10-02-2024 04:06-0400 Body weight 83 kg No Primary Care Physician [facility] 10-02-2024 04:06-0400 Diastolic blood pressure 92 mm[Hg] No Primary Care Physician [facility] 10-02-2024 04:06-0400 Heart rate 97 /min No Primary Care Physician [facility] 10-02-2024 04:06-0400 Respiratory rate 18 /min No Primary Care Physician [facility] 10-02-2024 04:06-0400 SaO2% (BldA) [Mass fraction] 99 % No Primary Care Physician [facility] 10-02-2024 04:06-0400 Systolic blood pressure 144 mm[Hg] No Primary Care Physician [facility] 10-01-2024 14:00-0400 Body temperature 97.6 [degF] No Primary Care Physician [facility] 10-01-2024 14:00-0400 Diastolic blood pressure 73 mm[Hg] No Primary Care Physician [facility] 10-01-2024 14:00-0400 Heart rate 54 /min No Primary Care Physician [facility] 10-01-2024 14:00-0400 Respiratory rate 12 /min No Primary Care Physician [facility] 10-01-2024 14:00-0400 SaO2% (BldA) [Mass fraction] 98 % No Primary Care Physician [facility] 10-01-2024 14:00-0400 Systolic blood pressure 131 mm[Hg] No Primary Care Physician [facility] 10-01-2024 10:00-0400 Inhaled oxygen flow rate 99 L/min No Primary Care Physician [facility] 10-01-2024 01:52-0400 Body height 180.34 cm No Primary Care Physician [facility] 10-01-2024 01:52-0400 Body mass index (BMI) [Ratio] 25.7 kg/m2 No Primary Care Physician [facility] 10-01-2024 01:52-0400 Body weight 83.46 kg No Primary Care Physician [facility] 06-11-2024 07:27-0400 Diastolic blood pressure 83 mm[Hg] [facility] 06-11-2024 07:27-0400 Heart rate 80 /min [facility] 06-11-2024 07:27-0400 Respiratory rate 18 /min [facility] 06-11-2024 07:27-0400 SaO2% (BldA) [Mass fraction] 98 % [facility] 06-11-2024 07:27-0400 Systolic blood pressure 126 mm[Hg] [facility] 06-11-2024 04:18-0400 Body temperature 97.3 [degF] [facility] 06-11-2024 04:14-0400 Body height 180.3 cm [facility] 06-11-2024 04:14-0400 Body mass index (BMI) [Ratio] 24.55 kg/m2 [facility] 06-11-2024 04:14-0400 Body weight 79.83 kg [facility] 06-10-2024 22:29-0400 Body height 180.3 cm [facility] 06-10-2024 22:29-0400 Body mass index (BMI) [Ratio] 24.55 kg/m2 [facility] 06-10-2024 22:29-0400 Body weight 79.83 kg [facility] 06-10-2024 22:26-0400 Body temperature 96.3 [degF] [facility] 06-10-2024 22:26-0400 Diastolic blood pressure 96 mm[Hg] [facility] 06-10-2024 22:26-0400 Heart rate 108 /min [facility] 06-10-2024 22:26-0400 Respiratory rate 16 /min [facility] [employer] 06-10-2024 22:26-0400 SaO2% (BldA) [Mass fraction] 97 % [facility] [employer] 06-10-2024 22:26-0400 Systolic blood pressure 144 mm[Hg] [facility] 01-28-2024 13:37-0500 Body height 180.3 cm Christy Shital [employer] Work Phone: [facility] [employer] 01-28-2024 13:37-0500 Body mass index (BMI) [Ratio] 27.06 kg/m2 Christy Sihtal [employer]ING [employer]ACHINE [employer] - [employer] Work Phone: [facility] [employer] 01-28-2024 13:37-0500 Body temperature 98.4 [degF] Christy Shital [employer] M[employer]ING MACHINE [employer]ER - [employer] SUPER[employer]OR Work Phone: [facility] [employer] 01-28-2024 13:37-0500 Body weight 88 kg Christy Shital [employer] MOLDING MACHINE T[employer]ER - [employer] SUPER[employer]OR Work Phone: [facility] [employer] 01-28-2024 13:37-0500 Diastolic blood pressure 75 mm[Hg] Christy Shital [employer]PRESS[employer] MOLDING MACHINE T[employer]ER - [employer]PER[employer]OR Work Phone: [facility] [employer] 01-28-2024 13:37-0500 Heart rate 90 /min Christy Shital [employer]PRESS[employer] MOLDING MACHINE [employer]ER - [employer] SUPERVISOR Work Phone: [facility] [employer] 01-28-2024 13:37-0500 Respiratory rate 17 /min Christy Shital COMPRESSION MOLDING MACHINE TENDER - RUBBER STAMPS AND DIES SUPERVISOR Work Phone: [facility] [employer] 01-28-2024 13:37-0500 SaO2% (BldA) [Mass fraction] 98 % Christy Shital COMPRESSION MOLDING MACHINE TENDER - RUBBER STAMPS AND DIES SUPERVISOR Work Phone: [facility] [employer] 01-28-2024 13:37-0500 Systolic blood pressure 117 mm[Hg] Christy Shital COMPRESSION MOLDING MACHINE TENDER - RUBBER STAMPS AND DIES SUPERVISOR Work Phone: [facility] [employer] 06-20-2023 19:15-0400 Body temperature 97.88 [degF] OLIVIER VASQUES COMPRESSION MOLDING MACHINE TENDER-TOOL RADIAL DRILL PRESS SET UP OPERATOR [facility] 06-20-2023 19:15-0400 Diastolic Blood Pressure Non-Invasive 90 mm[Hg] OLIVIER VASQUES COMPRESSION MOLDING MACHINE TENDER-TOOL RADIAL DRILL PRESS SET UP OPERATOR [facility] 06-20-2023 19:15-0400 Heart rate 87 /min OLIVIER VASQUES COMPRESSION MOLDING MACHINE TENDER-TOOL RADIAL DRILL PRESS SET UP OPERATOR [facility] 06-20-2023 19:15-0400 Reason For Taking VItal Signs OLIVIER VASQUES COMPRESSION MOLDING MACHINE TENDER-TOOL RADIAL DRILL PRESS SET UP OPERATOR [facility] 06-20-2023 19:15-0400 Respiratory rate 16 /min OLIVIER VASQUES COMPRESSION MOLDING MACHINE TENDER-TOOL RADIAL DRILL PRESS SET UP OPERATOR [facility] 06-20-2023 19:15-0400 Systolic Blood Pressure Non-Invasive 144 mm[Hg] OLIVIER VASQUES COMPRESSION MOLDING MACHINE TENDER-TOOL RADIAL DRILL PRESS SET UP OPERATOR [facility] 06-20-2023 17:05-0400 Body temperature 97.88 [degF] OLIVIER VASQUES COMPRESSION MOLDING MACHINE TENDER-TOOL RADIAL DRILL PRESS SET UP OPERATOR [facility] 06-20-2023 17:05-0400 Diastolic Blood Pressure Non-Invasive 87 mm[Hg] OLIVIER VASQUES COMPRESSION MOLDING MACHINE TENDER-TOOL RADIAL DRILL PRESS SET UP OPERATOR [facility] 06-20-2023 17:05-0400 Heart rate 93 /min OLIVIER VASQUES COMPRESSION MOLDING MACHINE TENDER-TOOL RADIAL DRILL PRESS SET UP OPERATOR [facility] 06-20-2023 17:05-0400 Reason For Taking VItal Signs OLIVIER VASQUES COMPRESSION MOLDING MACHINE TENDER-TOOL RADIAL DRILL PRESS SET UP OPERATOR [facility] 06-20-2023 17:05-0400 Respiratory rate 14 /min OLIVIER VASQUES COMPRESSION MOLDING MACHINE TENDER-TOOL RADIAL DRILL PRESS SET UP OPERATOR [facility] 06-20-2023 17:05-0400 Systolic Blood Pressure Non-Invasive 134 mm[Hg] OLIVIER VASQUES COMPRESSION MOLDING MACHINE TENDER-TOOL RADIAL DRILL PRESS SET UP OPERATOR [facility] 06-20-2023 14:30-0400 Diastolic Blood Pressure Non-Invasive 93 mm[Hg] OLIVIER VASQUES COMPRESSION MOLDING MACHINE TENDER-TOOL RADIAL DRILL PRESS SET UP OPERATOR [facility] 06-20-2023 14:30-0400 Systolic Blood Pressure Non-Invasive 138 mm[Hg] OLIVIER VASQUES COMPRESSION MOLDING MACHINE TENDER-TOOL RADIAL DRILL PRESS SET UP OPERATOR [facility] 06-20-2023 14:24-0400 Body temperature 97.52 [degF] OLIVIER VASQUES COMPRESSION MOLDING MACHINE TENDER-TOOL RADIAL DRILL PRESS SET UP OPERATOR [facility] 06-20-2023 14:24-0400 Heart rate 80 /min OLIVIER VASQUES COMPRESSION MOLDING MACHINE TENDER-TOOL RADIAL DRILL PRESS SET UP OPERATOR [facility] 06-20-2023 14:24-0400 Reason For Taking VItal Signs OLIVIER VASQUES COMPRESSION MOLDING MACHINE TENDER-TOOL RADIAL DRILL PRESS SET UP OPERATOR [facility] 06-20-2023 14:24-0400 Respiratory rate 14 /min OLIVIER VASQUES COMPRESSION MOLDING MACHINE TENDER-TOOL RADIAL DRILL PRESS SET UP OPERATOR [facility] 06-20-2023 05:41-0400 Body height 180.3 cm OLIVIER VASQUES COMPRESSION MOLDING MACHINE TENDER-TOOL RADIAL DRILL PRESS SET UP OPERATOR [facility] 06-20-2023 05:41-0400 Body weight 95.3 kg OLIVIER VASQUES COMPRESSION MOLDING MACHINE TENDER-TOOL RADIAL DRILL PRESS SET UP OPERATOR [facility] 06-20-2023 05:41-0400 Body weight 29.32 kg/m2 OLIVIER VASQUES COMPRESSION MOLDING MACHINE TENDER-TOOL RADIAL DRILL PRESS SET UP OPERATOR [facility] 06-20-2023 05:35-0400 Blood Pressure Location OLIVIER VASQUES COMPRESSION MOLDING MACHINE TENDER-TOOL RADIAL DRILL PRESS SET UP OPERATOR [facility] 06-20-2023 04:49-0400 Blood Pressure Location OLIVIER LAYO COMPRESSION MOLDING MACHINE TENDER-TOOL RADIAL DRILL PRESS SET UP OPERATOR [facility] 06-20-2023 04:49-0400 Blood Pressure Method OLIVIER LAYO COMPRESSION MOLDING MACHINE TENDER-TOOL RADIAL DRILL PRESS SET UP OPERATOR [facility] 06-20-2023 04:49-0400 Heart rate 80 /min OLIVIER VASQUES COMPRESSION MOLDING MACHINE TENDER-TOOL RADIAL DRILL PRESS SET UP OPERATOR [facility] 06-20-2023 04:18-0400 Blood Pressure Location OLIVIER LAYO COMPRESSION MOLDING MACHINE TENDER-TOOL RADIAL DRILL PRESS SET UP OPERATOR [facility] 06-20-2023 04:18-0400 Blood Pressure Method OLIVIER LAYO COMPRESSION MOLDING MACHINE TENDER-TOOL RADIAL DRILL PRESS SET UP OPERATOR [facility] 06-20-2023 04:18-0400 Heart rate 87 /min OLIVIER VASQUES COMPRESSION MOLDING MACHINE TENDER-TOOL RADIAL DRILL PRESS SET UP OPERATOR [facility] 06-20-2023 03:04-0400 Blood Pressure Method OLIVIER LAYO COMPRESSION MOLDING MACHINE TENDER-TOOL RADIAL DRILL PRESS SET UP OPERATOR [facility] 06-20-2023 03:04-0400 Heart rate 107 /min OLIVIER VASQUES COMPRESSION MOLDING MACHINE TENDER-TOOL RADIAL DRILL PRESS SET UP OPERATOR [facility] 06-20-2023 02:15-0400 Body height 180.3 cm OLIVIER VASQUES COMPRESSION MOLDING MACHINE TENDER-TOOL RADIAL DRILL PRESS SET UP OPERATOR [facility] 06-20-2023 02:15-0400 Body weight 95 kg OLIVIER VASQUES COMPRESSION MOLDING MACHINE TENDER-TOOL RADIAL DRILL PRESS SET UP OPERATOR [facility] 06-20-2023 00:48-0400 Body temperature 97.4 [degF] No Primary Care Physician [facility] 06-20-2023 00:48-0400 Diastolic blood pressure 85 mm[Hg] No Primary Care Physician [facility] 06-20-2023 00:48-0400 Heart rate 68 /min No Primary Care Physician [facility] 06-20-2023 00:48-0400 Respiratory rate 16 /min No Primary Care Physician [facility] 06-20-2023 00:48-0400 SaO2% (BldA) [Mass fraction] 100 % No Primary Care Physician [facility] 06-20-2023 00:48-0400 Systolic blood pressure 151 mm[Hg] No Primary Care Physician [facility] 06-19-2023 20:58-0400 Body height 180.34 cm No Primary Care Physician [facility] 06-19-2023 20:58-0400 Body mass index (BMI) [Ratio] 29 kg/m2 No Primary Care Physician [facility] 06-19-2023 20:58-0400 Body weight 94.46 kg No Primary Care Physician [facility] 05-01-2023 13:42-0400 Body temperature 97.4 [degF] No Primary Care Physician [facility] 05-01-2023 13:42-0400 Diastolic blood pressure 78 mm[Hg] No Primary Care Physician [facility] 05-01-2023 13:42-0400 Heart rate 55 /min No Primary Care Physician [facility] 05-01-2023 13:42-0400 Respiratory rate 17 /min No Primary Care Physician [facility] 05-01-2023 13:42-0400 SaO2% (BldA) [Mass fraction] 98 % No Primary Care Physician [facility] 05-01-2023 13:42-0400 Systolic blood pressure 138 mm[Hg] No Primary Care Physician [facility] 05-01-2023 06:45-0400 Body height 180.34 cm No Primary Care Physician [facility] 05-01-2023 06:45-0400 Body mass index (BMI) [Ratio] 28 kg/m2 No Primary Care Physician [facility] 05-01-2023 06:45-0400 Body weight 91.4 kg No Primary Care Physician [facility] 05-01-2023 05:52-0400 Body temperature 97.1 [degF] No Primary Care Physician [facility] 05-01-2023 05:52-0400 Diastolic blood pressure 84 mm[Hg] No Primary Care Physician [facility] 05-01-2023 05:52-0400 Heart rate 96 /min No Primary Care Physician [facility] 05-01-2023 05:52-0400 Respiratory rate 14 /min No Primary Care Physician [facility] 05-01-2023 05:52-0400 SaO2% (BldA) [Mass fraction] 99 % No Primary Care Physician [facility] 05-01-2023 05:52-0400 Systolic blood pressure 124 mm[Hg] No Primary Care Physician [facility] 05-01-2023 05:05-0400 Body height 180.34 cm No Primary Care Physician [facility] 03-23-2023 10:40-0500 Body temperature 98.3 [degF] No Primary Care Physician [facility] 03-23-2023 10:40-0500 Diastolic blood pressure 84 mm[Hg] No Primary Care Physician [facility] 03-23-2023 10:40-0500 Heart rate 87 /min No Primary Care Physician [facility] 03-23-2023 10:40-0500 Respiratory rate 16 /min No Primary Care Physician [facility] 03-23-2023 10:40-0500 SaO2% (BldA) [Mass fraction] 96 % No Primary Care Physician [facility] 03-23-2023 10:40-0500 Systolic blood pressure 133 mm[Hg] No Primary Care Physician [facility] 03-23-2023 05:34-0500 Body temperature 98.3 [degF] No Primary Care Physician [facility] 03-23-2023 05:34-0500 Diastolic blood pressure 58 mm[Hg] No Primary Care Physician [facility] 03-23-2023 05:34-0500 Heart rate 86 /min No Primary Care Physician [facility] 03-23-2023 05:34-0500 Respiratory rate 17 /min No Primary Care Physician [facility] 03-23-2023 05:34-0500 SaO2% (BldA) [Mass fraction] 98 % No Primary Care Physician [facility] 03-23-2023 05:34-0500 Systolic blood pressure 113 mm[Hg] No Primary Care Physician [facility] 03-23-2023 01:01-0500 Body height 180.34 cm No Primary Care Physician [facility] 03-23-2023 01:01-0500 Body mass index (BMI) [Ratio] 27.6 kg/m2 No Primary Care Physician [facility] 03-23-2023 01:01-0500 Body weight 89.81 kg No Primary Care Physician [facility] 03-22-2023 22:04-0500 Body height 180.34 cm No Primary Care Physician [facility] 03-22-2023 22:04-0500 Body mass index (BMI) [Ratio] 27.6 kg/m2 No Primary Care Physician [facility] 03-22-2023 22:04-0500 Body temperature 97.5 [degF] No Primary Care Physician [facility] 03-22-2023 22:04-0500 Body weight 89.81 kg No Primary Care Physician [facility] 03-22-2023 22:04-0500 Diastolic blood pressure 86 mm[Hg] No Primary Care Physician [facility] 03-22-2023 22:04-0500 Heart rate 108 /min No Primary Care Physician [facility] 03-22-2023 22:04-0500 Respiratory rate 18 /min No Primary Care Physician [facility] 03-22-2023 22:04-0500 SaO2% (BldA) [Mass fraction] 96 % No Primary Care Physician [facility] 03-22-2023 22:04-0500 Systolic blood pressure 135 mm[Hg] No Primary Care Physician [facility] 08-07-2022 08:32-0400 Body temperature 97.9 [degF] Dr. Fior Ridley Work Phone: [facility] 08-07-2022 08:32-0400 Diastolic blood pressure 63 mm[Hg] Dr. Fior Ridley Work Phone: [facility] 08-07-2022 08:32-0400 Heart rate 81 /min Dr. Fior Ridley Work Phone: [facility] 08-07-2022 08:32-0400 Respiratory rate 18 /min Dr. Fior Ridley Work Phone: [facility] 08-07-2022 08:32-0400 SaO2% (BldA) [Mass fraction] 99 % Dr. Fior Ridley Work Phone: 7(403)813-428718 [place] [address] 08-07-2022 08:32-0400 Systolic blood pressure 125 mm[Hg] Dr. Fior Ridley Work Phone: 5(581)012-410018 [place] [address] 08-05-2022 18:27-0400 Body height 180.[address] Fior Ridley Work Phone: 3(141)844-213118 [place] [address] 08-05-2022 18:27-0400 Body mass index (BMI) [Ratio] 24.4 kg/m2 Dr. Fior Ridley Work Phone: 3(638)[phone] [place] [address] 08-05-2022 18:27-0400 Body weight 79.[address] Fior Ridley Work Phone: 5(210)325-820818 [place] [address] 08-05-2022 17:22-0400 Respiratory rate 18 /min Dr. Fior Ridley Work Phone: 8(731)311-213618 [place] [address] 08-05-2022 17:11-0400 Body temperature 97.7 [degF] Dr. Fior Ridley Work Phone: 2(372)730-338418 [place] [address] 08-05-2022 17:11-0400 Diastolic blood pressure 68 mm[Hg] Dr. Fior Ridley Work Phone: 1(554)852-653518 [place] [address] 08-05-2022 17:11-0400 Heart rate 81 /min Dr. Fior Ridley Work Phone: 9(353)815-912718 [place] [address] 08-05-2022 17:11-0400 SaO2% (BldA) [Mass fraction] 97 % Dr. Fior Rdiley Work Phone: 5(946)071-323118 [place] [address] 08-05-2022 17:11-0400 Systolic blood pressure 124 mm[Hg] Dr. Fior Ridley Work Phone: 6(688)716-051918 [place] [address] 08-05-2022 15:22-0400 Body height 180.[address] Fior Ridley Work Phone: 8(674)793-012218 [place] [address] 08-05-2022 15:22-0400 Body mass index (BMI) [Ratio] 27.1 kg/m2 Dr. Fior Ridley Work Phone: [facility] 08-05-2022 15:22-0400 Body weight 88.[address] Fior Ridley Work Phone: [facility] Encounters Encounter Date Encounter Type Care Provider Facility Start: 10-19-2024 Non-patient / Non-visit Dr. Yamilex Carter MD [facility] Work Phone: Start: 10-18-2024 ambulatory Ingrid Reece Facility:[facility] Start: 10-18-2024 End: 10-19-2024 Evaluation and management of inpatient Dr. Ingrid Reece MD -[facility] Work Phone: Start: 10-18-2024 End: 10-18-2024 Emergency department patient visit No Primary Care Physician -Emergency Department Work Phone: Start: 10-18-2024 End: 10-18-2024 ambulatory MARILOU VASQUEZ [facility] Start: 10-12-2024 End: 10-14-2024 ambulatory PHYSICIAN [...] Non-patient / Non-visit Dr. Rachel martinez MD -[facility] Work Phone: Start: 10-02-2024 End: [...] 10-01-2024 Emergency department patient visit SHWETA RAYA [facility] Start: 09-29-2024 End: 09-30-2024 Emergency department patient visit [facility] Start: 09-27-2024 End: 09-28-2024 Emergency department patient visit [facility] Start: 06-24-2024 End: 06-24-2024 Emergency department patient visit [facility] Start: 06-11-2024 End: 06-11-2024 Emergency department patient visit [facility] Comment on above: Chest pain, unspecif ied type (Primary Dx); Methamphetamine abuse (HCC); Alcohol abuse Start: 06-10-2024 End: 06-10-2024 Emergency department patient visit [facility] Start: 01-28-2024 End: 01-28-2024 Office outpatient visit 15 minutes Christy Retana COMPRESSION MOLDING MACHINE TENDER - RUBBER STAMPS AND DIES SUPERVISOR Work Phone: [facility] Comment on above: Influenza A (Primary Dx); URI with cough and congestion; Generalized body aches Start: 01-28-2024 End: 01-28-2024 ambulatory [facility] Start: 07-25-2023 End: 07-25-2023 Emergency department patient visit Physician No [facility] Start: 06-20-2023 End: 06-20-2023 Emergency department patient visit KATYA GRIFFITH MD Facility:[facility] Start: 06-20-2023 End: 06-20-2023 Observation OLIVIER VASQUES COMPRESSION MOLDING MACHINE TENDER-TOOL RADIAL DRILL PRESS SET UP OPERATOR [facility] Start: 06-19-2023 End: 06-20-2023 Emergency department patient visit No Primary Care Physician [facility]gency Department Work Phone: Start: 05-01-2023 End: 05-01-2023 Evaluation and management of inpatient No Primary Care Physician [facility]Int[facility] Work Phone: Start: 03-23-2023 Non-patient / Non-visit No [facility] Physician [facility] Work Phone: Start: 03-23-2023 End: 03-23-2023 Evaluation and management of inpatient No [facility] Work Phone: Start: 08-07-2022 Non-patient / Non-visit Dr. Franklin Ridley Work Phone: [facility] Start: 08-06-2022 Non-patient / Non-visit Dr. Franklin Ridley Work Phone: [facility] Start: 08-05-2022 Non-patient / Non-visit Dr. Franklin Ridley Work Phone: [facility] Start: 08-05-2022 End: 08-07-2022 Evaluation and management of inpatient Dr. Fior Ridley Work Phone: [facility] Procedures Date Procedure Procedure Detail Performing Clinician Start: 10-19-2024 Estimated creatinine clearance No Primary Care Physician Start: 10-18-2024 Estimated creatinine clearance No Primary Care Physician Start: 10-18-2024 Methadone measuremen t, urine No Primary Care Physician Start: 10-18-2024 Urnls dip stick/tabl et reagent auto microscopy No Primary Care Physician Start: 10-14-2024 Creatinine blood Daisy Karina Hampton TOOL RADIAL DRILL PRESS SET UP OPERATOR Work Phone: Start: 10-13-2024 EMS RUN SHEET Generic E ms Provider Start: 10-13-2024 Basic metabolic pane l calcium total Akliah Cervantes TOOL RADIAL DRILL PRESS SET UP OPERATOR Work Phone: Start: 10-12-2024 Blood ethanol measurement Akilah Cervantes TOOL RADIAL DRILL PRESS SET UP OPERATOR Work Phone: Start: 10-12-2024 Basic metabolic [...] mnt chem analyzers pr date Renae Piña TOOL RADIAL DRILL PRESS SET UP OPERATOR Work Phone: Start: 10-04-2024 Blood count complete automated Renae Piña TOOL RADIAL DRILL PRESS SET UP OPERATOR Work Phone: Start: 10-04-2024 Blood ethanol measurement Renae Piña TOOL RADIAL DRILL PRESS SET UP OPERATOR Work Phone: Start: 10-04-2024 Blood ethanol measurement Shellie Herrmann DO Work Phone: Start: 10-03-2024 Drug tst prsmv instr mnt chem analyzers pr date Leonel Colón Start: 10-03-2024 Basic metabolic pane l calcium total Leonel Colón Start: 10-02-2024 Blood count complete automated Holli Amaya TOOL RADIAL DRILL PRESS SET UP OPERATOR Work Phone: Start: 10-02-2024 Blood group [...] metabolic pane l calcium total Holli Amaya TOOL RADIAL DRILL PRESS SET UP OPERATOR Work Phone: Start: 10-02-2024 Blood ethanol [...] Comment: URIN ALYSIS Performed By: #### [id number] #### [place] [id number] Start: 09-28-2024 Urinalysis SHWETA Gibson Comment on above: Result Comment: URIN ALYSIS Performed By: #### [id number] ####[place] [id number] Start: 06-11-2024 Basic metabolic pane l calcium total Easton Hesham COMPRESSION MOLDING MACHINE TENDER - TOOL RADIAL DRILL PRESS SET UP OPERATOR Work Phone: Start: 06-11-2024 Drug test def 1-7 classes Easton Hesham COMPRESSION MOLDING MACHINE TENDER - TOOL RADIAL DRILL PRESS SET UP OPERATOR Work Phone: Start: 06-11-2024 Radiologic exam ches t 2 views Easton Hesham COMPRESSION MOLDING MACHINE TENDER - TOOL RADIAL DRILL PRESS SET UP OPERATOR Work Phone: Start: 06-11-2024 Ecg routine ecg w/le ast 12 lds trcg only w/o i&r Arnold Olivera MD Work Phone: Start: 01-28-2024 Sars-cov-2 detection by dna/rna Christy Retana COMPRESSION MOLDING MACHINE TENDER - RUBBER STAMPS AND DIES SUPERVISOR Work Phone: Start: 01-28-2024 Infectious agent dna /rna influenza 1st 2 types Christy Retana COMPRESSION MOLDING MACHINE TENDER - RUBBER STAMPS AND DIES SUPERVISOR Work Phone: Start: 06-19-2023 Plain chest X-ray No Pr imary Care Physician Start: 06-19-2023 SARS-CoV-2, Influenz a & RSV (PCR) No Primary Care Physician Plan of Treatment Date Care Activity Detail Author Start: 11-06-2071 RSV Immunization for Adults (1 - 1-dose 75+ series) RSV Immunization for Adults (1 - 1-dose 75+ series) [facility] [employer] Start: 2046 Zoster Vaccines (1 of 2) Zoster Vaccines (1 of 2) [facility] Start: 10-28-2024 End: 10-28-2024 Patient encounter procedure 10/28/2024 10:20 AM EDT Office Visit [facility] [address] [facility] [address] [place] [address] Discharge Disposition: Home [facility] Start: 10-23-2024 End: 10-23-2024 Follow-up encounter 10/23/2024 10:20 AM EDT Follow-Up [facility] [address] [facility] [address] [place] [address] Anjel Duval PA-C [address] [facility] [address] [place] [address] [facility] Start: 10-20-2024 End: 10-20-2024 Patient encounter procedure 10/20/2024 10:20 AM EDT Office Visit [facility] [address] [facility] [address] [place] [address] Discharge Disposition: Home [facility] Start: 10-19-2024 Patient discharge [facility] Start: 10-18-2024 Following clinical pathway protocol [facility] Start: 10-18-2024 End: 10-18-2024 [facility] Start: 10-18-2024 Assessment of risk of venous thromboembolism [facility] Start: 10-18-2024 Insertion of catheter into peripheral vein [facility] Start: 10-18-2024 Providing care according to standard [facility] Start: 10-18-2024 Provision of activity privileges [facility] Start: 10-18-2024 Admission procedure [facility] Start: 10-18-2024 Hospital admission, emergency, from emergency room, medical nature [facility] Start: 10-18-2024 [facility] Start: 10-18-2024 Consultation [facility] Start: 10-18-2024 Patient referral to dietitian [facility] Start: 10-14-2024 End: 10-14-2024 Incision & [...] EDT Surgery [facility] [address] [place] [address] Marilou Vasquez MD [address] [place] [address] MAXILLOMANDIBULAR FIXATION SCREW REMOVAL [facility] Comment on above: MAXILLOMANDIBULAR FIXATION SCREW REMOVAL Start: 10-13-2024 End: 10-13-2024 Incision & drainage abscess simple/single INCISION AND DRAINAGE HEAD/NECK K 10/13/2024 2:45 PM EDT [facility] Start: 10-13-2024 End: 10-13-2024 Removal implant deep [facility]OVAL [facility] 10/13/2024 2:45 PM EDT [facility] Start: 10-12-2024 Influenza vaccination Influenza Vaccine (Season Ended) [facility] Start: 10-04-2024 End: 10-04-2024 Open tx comp fx malar w/internal fx&mult surg OPEN REDUCTION INTERNAL FIXATION MANDIBLE MAXILLA UNK 10/04/2024 7:25 AM EDT [facility] Start: 10-02-2024 Emergency department visit high/urgent severity EMERGENCY DEPT VISIT MOD MDM [facility] Start: 10-01-2024 Following clinical pathway protocol [facility] Start: 10-01-2024 Admission procedure [facility] Start: 10-01-2024 Assessment of risk of venous thromboembolism [facility] Start: 10-01-2024 Introduction of urinary catheter [facility] Start: 10-01-[address] [facility] Start: 10-01-2024 Oxygen therapy [facility] Start: 10-01-2024 Referral to service [facility] Start: 10-01-2024 Vital signs measurements [facility] Start: 10-01-2024 Provision of activity privileges [facility] Start: 10-01-2024 Verification routine [facility] Start: 10-01-2024 End: 10-01-2024 [facility] Start: 10-01-2024 Consultation [facility] Start: 10-01-2024 Patient discharge [facility] Start: 10-13-2023 COVID-19 Vaccine () COVID-19 Vaccine () [facility] Start: 10-13-2023 Influenza vaccination Influenza Vaccine (#1) [facility] Start: 06-20-2023 [facility] Start: 05-01-2023 Following clinical pathway protocol [facility] Start: 05-01-2023 Assessment of risk of venous thromboembolism [facility] Start: 05-01-2023 Inhalation therapy procedure [facility] Start: 05-01-2023 Introduction of urinary catheter [facility] Start: 05-01-[address] [facility] Start: 05-01-2023 Oxygen therapy [facility] Start: 05-01-2023 Provision of activity privileges [facility] Start: 05-01-2023 Referral to service [facility] Start: 05-01-2023 Vital signs measurements [facility] Start: 05-01-2023 [facility] Start: 05-01-2023 Verification routine [facility] Start: 05-01-2023 Admission procedure [facility] Start: 05-01-2023 Hospital admission, emergency, from emergency room, medical nature [facility] Start: 05-01-2023 Patient discharge [facility] Start: 05-01-2023 [facility] Start: 03-23-2023 Patient discharge [facility] Start: 03-23-2023 Following clinical pathway protocol [facility] Start: 03-23-2023 Assessment of risk of venous thromboembolism [facility] Start: 03-23-[address] [facility] Start: 03-23-2023 Provision of activity privileges [facility] Start: 03-23-2023 Vital signs measurements [facility] Start: 03-23-2023 [facility] Start: 03-23-2023 Gamma glutamyl transferase measurement [facility] Start: 03-23-2023 Prothrombin time [facility] Start: 03-23-2023 Admission procedure [facility] Start: 08-07-2022 Patient discharge [facility] Start: 08-05-2022 Following clinical pathway protocol [facility] Start: 08-05-2022 Ambulation without limitation [facility] Start: 08-05-2022 Assessment of risk of venous thromboembolism [facility] Start: 08-05-2022 Catheterization of vein [facility] Start: 08-05-2022 Insertion of catheter into peripheral vein [facility] Start: 08-05-2022 Providing care according to standard [facility] Start: 08-05-2022 Referral to service [facility] Start: 08-05-2022 [facility] Start: 08-05-2022 Verification routine [facility] Start: 08-05-2022 Admission procedure [facility] Start: 08-05-2022 [facility] Start: 11-06-2015 DTaP/Tdap/Td Vaccines (1 - Tdap) DTaP/Tdap/Td Vaccines (1 - Tdap) [facility] Start: 11-06-2015 Hepatitis B Vaccines (1 of 3 - 19+ 3-dose series) Hepatitis B Vaccines (1 of 3 - 19+ 3-dose series) [facility] Start: 11-06-2015 Pneumococcal Vaccine: Pediatrics (0 to 5 Years) and At-Risk Patients (6 to 49 Years) (1 of 2 - PCV) Pneumococcal Vaccine: Pediatrics (0 to 5 Years) and At-Risk Patients (6 to 49 Years) (1 of 2 - PCV) [facility] Start: 2014 Hepatitis C screening Hepatitis C Screening [facility] Start: 2009 Varicella vaccination Varicella Vaccines (1 of 2 - 13+ 2-dose series) [facility] Start: 2008 Depression Screening Depression Screening [facility] Start: 1997 MMR Vaccines (1 of 1 - Standard series) MMR Vaccines (1 of 1 - Standard series) [facility] Start: 1996 HIV screening HIV Screening [facility] Amphetamines [Presen ce] in Urine by Screen method >1000 ng/mL [facility] Anion gap in Serum o r Plasma [facility] Bacteria identified in Blood by Culture Blood Culture Aerobic/Anaerobic Microbiology [facility] 10/12/2024 4:45 PM EDT [facility] Work Phone: Benzodiazepine measurement, urine [facility] BUN/Creatinine ratio [facility] Calcium [Mass/volume ] in Serum or Plasma [facility] Carbon dioxide, tota l [Moles/volume] in Central venous blood [facility] Cocaine measurement, urine [facility] Creatinine [Mass/vol ume] in Serum or Plasma [facility] Ethanol [Mass/volume ] in Serum or Plasma [facility] fentaNYL [Presence] in Urine by Screen method [facility] Gamma glutamyl transferase measurement [facility] Glucose [Mass/volume ] in Serum or Plasma [facility] INR in Blood by Coagulation assay [facility] Measurement of renal function [facility] Methadone measuremen t, urine [facility] Patient Education [facility] Work Phone: Patient referral [facility] Work Phone: Phencyclidine [Prese nce] in Urine [facility] Potassium measurement [facility] Serum chloride measurement [facility] Sodium measurement [facility] Urea nitrogen [Mass/volume] in Serum or Plasma [facility] Urine cannabinoid measurement [facility] Urine opiate measurement [facility] End: 10-02-2024 US Abdomen limited [facility] Work Phone: Comment on above: Once for 1 Occurrences starting 10/03/19 until 10/02/2024 Immunizations Immunization Date Immunization Notes Care Provider Sumi fenton 10-02-2024 tetanus toxoid, redu anshul diphtheria toxoid, and acellular pertussis vaccine, adsorbed No Primary Care Physician [facility] Payers Date Payer Category Payer Self-pay 2023 Medicaid (Managed Care) [facility] MEDICAID [id number] 2023 Medicaid HMO [facility]STA SANTOS ODM [id number] 2023 Private Health Insurance [id number] 1996 Unknown [id number] 2.0.1.532691.3.579.2. 627 1996 Unknown [id number] 2.840.1.644185.3.579.2. 204 1996 Unknown [id number] 2.0.1.788851.3.579.2. 651 1996 Unknown [id number] 2.840.1.127601.3.579.2. 651 1996 Unknown [id number] 2.840.1.706270.3.579.2. 651 1996 Unknown [id number] 2.16840.1.867271.3.579.2. 902 1996 Unknown [id number] 2.16840.1.399805.3.579.2. 902 1996 Unknown [id number] 2.16.840.1.620471.3.579.2. 902 1996 Unknown [id number] 2.16.840.1.832100.3.579.2. 902 1996 Unknown [id number] 2.16.840.1.341206.3.579.2. 902 1996 Unknown [id number] 2.16.840.1.669300.3.579.2. 902 1996 Unknown [id number] 2.16.840.1.706788.3.579.2. 902 Unknown [id number] 2.16.840.1.449538.3.579.2. 462 Unknown [id number] 2.16.840.1.328119.3.579.2. 462 Unknown [id number] 2.16.840.1.900647.3.579.2. 462 Unknown [id number] 2.16.840.1.888900.3.579.2. 462 Unknown [id number] 2.16.840.1.360102.3.579.2. 462 Unknown [id number] 2.16.840.1.348789.3.579.2. 462 Unknown [id number] 2.16.840.1.782244.3.579.2. 462 Unknown [id number] 2.16.840.1.549850.3.579.2. 462 Unknown [id number] 2.16.840.1.634136.3.579.2. 462 Social History Date Type Detail Facility Start: 08-05-2022 End: 06-19-2023 Tobacco smoking status MOIS Unknown if ever smoked [facility] Start: 1995 Sex Assigned At Male [facility] Start: 06-20-2023 Tobacco smoking status Light tobacco smoker (finding) [facility] Start: 1996 Sex assigned at Not on file [facility] Start: 01-28-2024 Sex Male (finding) [facility] Start: 06-11-2024 End: 10-12-2024 Gender identity Not on file [facility] Start: 06-11-2024 End: 10-12-2024 History of Social function [facility] How often to you hav e a drink containing alcohol? 4 or more times a week [facility] How many standard dr inks containing alcohol do you have on a typical day? 7 to 9 [facility] How often do you hav e 6 or more drinks on 1 occasion? Daily or almost daily [facility] Start: 10-01-2024 End: 10-18-2024 Tobacco smoking status MOIS Smokes tobacco daily (finding) [facility] History of tobacco use Cigarette Smoker [facility] Start: 10-02-2024 Tobacco use and exposure Smokeless tobacco non-user [facility] Start: 10-04-2024 End: 10-14-2024 Alcoholic beverage intake Current drinker of alcohol (finding) [facility] Has the [employer], [employer], or water [employer] threatened to shut off services in your home in past 12Mo Yes [facility] Within the last year , have you been afraid of your partner or ex-partner? No [facility] (I/We) worried [facility] (my/our) food would run out before (I/we) got money to buy more. Often true [facility] In the past 12 month s, has lack of transportation kept you from medical appointments or from getting medications? Yes [facility] Start: 10-02-2024 Alcohol Comment 15-20 tall boys daily, last drink yesterday - 10/02/24 [facility] Start: 10-12-2024 Alcohol Comment 5 tall boys daily, last drink today [facility] Medical Equipment Procedure Code Equipment Code Equipment Origin al Text Equipment Identifier Dates Sealant 5ml Hemostatic Matrix Fast Prep Floseal W/ Recothrom - [id number] Start: 10-04-2024 Powder 3gm Hemostatic Perclot 9cm Std Tip - [id number] Start: 10-04-2024 Screw 2 X 12mm M mf Self-Drill - [id number] Start: 10-04-2024 Screw 2 X 8mm Mm f Self-Drill - [id number] Start: 10-04-2024 Screw 2 X 12mm M mf Self-Drill - [id number] Start: 10-14-2024 Goals Date Patient Goal Desired Activity /State Functional Status Date Assessment Result Facility 10-19-2024 Functional status Up [facility] Work Phone: 10-01-2024 Functional status Up [place] [facility] Work Phone: 06-20-2023 Functional Status Door open, Room check performed [facility] 06-20-2023 Functional Status [facility] 06-20-2023 Functional Status Ambulation in Room [facility] 06-20-2023 Functional Status [facility] 06-20-2023 Functional Status [facility] 06-20-2023 Functional Status [facility] 06-20-2023 Functional Status [facility] 06-20-2023 Functional Status Environmental Safety Implemented Adequate room lighting, Bed in low position, Call device within reach [facility] 05-01-2023 Functional status Patient Activity Up [facility] Work Phone: 03-23-2023 Functional status Activity Ability Indepe ndent [facility] Work Phone: 08-07-2022 Functional status Up [place] [facility] Work Phone: Mental Status Date Assessment Result Facility 10-19-2024 Cognitive function Voice/Name [facility] Work Phone: 10-18-2024 Cognitive function Level Of Cons ciousness Awake;Alert;Appropriate;Follow s Commands [facility] Work Phone: 10-02-2024 Cognitive function Voice/Name [facility] Work Phone: 10-01-2024 Cognitive function Voice/Name [facility] Work Phone: 06-20-2023 Mental Status Orientation Oriented x 4 [facility] 06-20-2023 [facility] 06-20[facility]23 Mental Status [facility] 06-19-2023 Cognitive function Level Of Cons ciousness Awake;Alert;Appropriate [facility] Work Phone: 03-23-2023 Cognitive function Appropriate;Cooperativ e [facility] Work Phone: 08-07-2022 Cognitive function Voice/Name;Touch/Shaki ng [facility] Work Phone: Clinical Notes 08-05-2022 to 10-19-2024 Note Date & Type Note Facility 10-19-2024 Progress note Note Date/Time October 19, 2024 10:26am [facility] Medical Records Department [address] [place] [address] Progress Note - Hospitalist 10/19/24 1022 MR#: [id number] Acct: [id number] Name: DAISYKADEKylah REYNOLDS Rep #:[id number] : 1995 28 From: Pratik gale MD PCP: Care Physician,No Primary Status :ADM IN Location: [place] [address] Subjective Subjective CINA score of 1 with [...] Clarity Clear, Urine pH 5.0, Ur Specific [place] 1.025, Urine Protein 30 H, Urine Glucose [...] 81.9 H, Lymph % (Auto) 11.1 L, [place] % (Auto) 5.0, Eos % (Auto) 0.5, [...] % (Auto) 58.2, Lymph % (Auto) 28.1, [place] % (Auto) 9.2, Eos % (Auto) 2.7, [...] DVT: Lovenox Charges/Coding Visit Charges Inpatient E&M: 29765 Subs Hosp L2 10/19/24 1026 <Electronically signed by Pratik Carter MD> Cosigner Signature (if applicable): CC: ~ Signed [facility] Work Phone: 1(385) 408-814909-08-2025 Progress note [facility] Medical Records Department [address] [place] [address] Progress Note - Hospitalist 10/19/24 1022 MR#: [id number] Acct: [id number] Name: KADE GONZALEZ Rep #:[id number] : 1995 28 From: Pratik gale MD PCP: Care Physician,No Primary Status :ADM IN Location: [place] [address] Subjective Subjective CINA score of 1 with [...] Clarity Clear, Urine pH 5.0, Ur Specific [place] 1.025, Urine Protein 30 H, Urine Glucose [...] 81.9 H, Lymph % (Auto) 11.1 L, [place] % (Auto) 5.0, Eos % (Auto) 0.5, [...] % (Auto) 58.2, Lymph % (Auto) 28.1, [place] % (Auto) 9.2, Eos % (Auto) 2.7, [...] for opiate use ? Continue with the [facility] protocol with as needed Ativan and symptomatic [...] DVT: Lovenox Charges/Coding Visit Charges Inpatient E&M: 16881 Subs Hosp L2 10/19/24 1026 Cosigner Signature (if applicable): CC: ~ Signed [facility]09-07-2025 Discharge summary Author Bairon Dee [facility] Note Date/Time October 18, 2024 9:11pm [facility] Medical Records Department [address] [place] [address] Emergency Department Summary 10/18/24 MR#: [id number] Acct: [id number] Name: KADE GONZALEZ Rep #:[id number] : 1995 28 From: Bairon Clarke PCP: Care Physician,No Primary Status :ADM IN Location: [facility] [id number] HPI History of Present Illness Chief Complaint: [...] 100 100 Oxygen Delivery Method Room Air [facility] Narrative Medical decision making narrative: HISTORY OF [...] from others: none Consults: Hospitalist (Dr. Reece) [facility] Narrative: Patient was initially mildly tachycardic [...] abuse 3. Polysubstance abuse Dispo: Admit to [facility] via RAMP program This note was generated with [employer] dictation software. It may contain incorrectwords, spelling, [...] 81.9 H Lymph % (Auto) 11.1 L [place] % (Auto) 5.0 Eos % (Auto) 0.5 [...] Clarity Clear Urine pH 5.0 Ur Specific [place] 1.025 Urine Protein 30 H Urine Glucose [...] Discharge Plan Disposition Disposition: Acute Care [facility] Discharge Date/Time: 10/18/24 18:55 What to do if you have Problems For any increased pain, shortness of breath, bleeding, nausea or vomiting, chestpain, or any unexpected problems, contact your Primary Care Provider. Call [facility] ([phone]) or report to the closest Emergency Room. Call 911 if necessary. 10/18/242110 <Electronically signed by Bairon Dee DO> Cosigner Signature (if applicable): CC: No Primary Care Physician ~ Signed [facility] Work Phone: 1(696) 882-158409-07-2025 History and physical note Author Ingrid Reece [facility] Note Date/Time October 18, 2024 7:56pm [facility] Medical Records Department [address] [place] [address] H&P Exam - Hospitalist 10/18/24 1840 MR#: [id number] Acct: [id number] Name: KADE GONZALEZ Rep #:[id number] : 1995 28 From: Ingrid Reece MD PCP: Care Physician,No Primary Status :ADM IN Location: [place] [id number] [facility] - General General Date of Admission: 10/18/24 Date of Service: 10/18/24 Chief Complaint: requesting alcohol detox HPI Narrative KADE GONZALEZ, is a 28-year-old male history of alcohol abuse, polysubstance abuse, tobacco use, jaw fracture presented [facility] ED 10/18/2024 for alcohol detox. Notably [...] denies any drainage from area of surgery. [facility] Medical History (Updated 10/18/24 @ 19:55 by [...] 81.9 H, Lymph % (Auto) 11.1 L, [place] % (Auto) 5.0, Eos % (Auto) 0.5, [...] 76 Minutes Charges/Coding Visit Charges Inpatient E&M: 36630 Init Hosp L3 10/18/241955 <Electronically signed by Ingrid Reece MD> Cosigner Signature (if applicable): CC: Dr. Ingrid Reece MD; No Primary Care Physician~ Signed [facility] Work Phone: 1(879) 735-667709-07-2025 Discharge summary [facility] Medical Records Department [address] [place] [address] Emergency Department Summary 10/18/24 MR#: [id number] Acct: [id number] Name: KADE GONZALEZ Rep #:[id number] : 1995 28 From: Bairon Clarke PCP: Care Physician,No Primary Status :ADM IN Location: [address] History of Present Illness Chief Complaint: [...] 100 100 Oxygen Delivery Method Room Air [facility] MDM MDM Narrative Medical decision making [...] abuse 3. Polysubstance abuse Dispo: Admit to [facility] via RAMP program This note was generated with [employer] dictation software. It may contain incorrectwords, spelling, [...] 81.9 H Lymph % (Auto) 11.1 L [place] % (Auto) 5.0 Eos % (Auto) 0.5 [...] Clarity Clear Urine pH 5.0 Ur Specific [place] 1.025 Urine Protein 30 H Urine Glucose [...] Discharge Plan Disposition Disposition: Acute Care [facility] Discharge Date/Time: 10/18/24 18:55 What to do if you have Problems For any increased pain, shortness of breath, bleeding, nausea or vomiting, chestpain, or any unexpected problems, contact your Primary Care Provider. Call [facility] ([phone]) or report tothe closest Emergency Room. Call 911 if necessary. 10/18/242110 Cosigner Signature (if applicable): CC: No Primary Care Physician ~ Signed [facility]09-07-2025 History and physical note [facility] Medical Records Department [address] [place] [address] H&P Exam - Hospitalist 10/18/24 1840 MR#: [id number] Acct: [id number] Name: KADE GONZALEZ Rep #:[id number] : 1995 28 From: Ingrid Reece MD PCP: Care Physician,No Primary Status :ADM IN Location: [facility] [id number] [facility] - General General Date of Admission: 10/18/24 Date of Service: 10/18/24 Chief Complaint: requesting alcohol detox HPI Narrative KADE GONZALEZ, is a 28-year-old male history of alcohol abuse, polysubstance abuse, tobacco use, jaw fracture presented [facility] ED 10/18/2024 for alcohol detox. Notably [...] denies any drainage from area of surgery. [facility] Medical History (Updated 10/18/24 @ 19:55 by [...] 81.9 H, Lymph % (Auto) 11.1 L, [place] % (Auto) 5.0, Eos % (Auto) 0.5, [...] 76 Minutes Charges/Coding Visit Charges Inpatient E&M: 61898 Init Hosp L3 10/18/241955 Cosigner Signature (if applicable): CC: Dr. Ingrid Reece MD; No Primary Care Physician~ Signed [facility]09-07-2025 Discharge summary [facility] Medical Records Department [address] [place] [address] Emergency Department Summary 10/18/24 MR#: [id number] Acct: [id number] Name: KADE GONZALEZ Rep #:[id number] : 1995 28 From: Bairon Clarke PCP: [...] Ox 97 Oxygen Delivery Method Room Air [facility] Narrative Medical decision making narrative: HISTORY OF PRESENT ILLNESS: Chief complaint: Jaw pain 28-year-old male history of open mandibular fracture, polysubstance abuse, alcohol abuse, tobacco abuse presents with jaw pain. He states REVIEW OF SYSTEMS: Pertinent positives: Jaw pain Pertinent negatives: Fevers chills vomit PHYSICAL EXAM: Nursing triage notes reviewed, Vital signs reviewed Constitutional: please see [facility] HENT: MMM, surgical scars noted over [...] History obtained from others: none Consults: none [facility] Narrative: Patient was initially hemodynamically stable, [...] Discharge home This note was generated with TravelPi dictation software. It may contain incorrectwords, spelling, [...] Primary [Primary Care Provider] - Print Language: Ukrainian What to do if you have Problems For any increased pain, shortness of breath, bleeding, nausea or vomiting, chestpain, or any unexpected problems, contact your Primary Care Provider. Call [facility] ([phone]) or report tothe closest Emergency Room. Call 911 if necessary. 10/18/24 1525 Cosigner Signature (if applicable): CC: No Primary Care Physician ~ Signed [facility]09-07-2025 Discharge summary Author Bairon Dee [facility] Note Date/Time October 18, 2024 3:25pm [facility] Medical Records Department [address] [place] [address] Emergency Department Summary 10/18/24 MR#: [id number] Acct: [id number] Name: KADE GONZALEZ Rep #:[id number] : 1995 28 From: Bairon Clarke PCP: [...] Ox 97 Oxygen Delivery Method Room Air [facility] Narrative Medical decision making narrative: HISTORY OF [...] History obtained from others: none Consults: none [facility] Narrative: Patient was initially hemodynamically stable, [...] Discharge home This note was generated with TravelPi dictation software. It may contain incorrectwords, spelling, [...] Primary [Primary Care Provider] - Print Language: Ukrainian What to do if you have Problems For any increased pain, shortness of breath, bleeding, nausea or vomiting, chestpain, or any unexpected problems, contact your Primary Care Provider. Call [facility] ([phone]) or report to the closest Emergency Room. Call 911 if necessary. 10/18/24 1525 <Electronically signed by Bairon Dee DO> Cosigner Signature (if applicable): CC: No Primary Care Physician ~ Signed [facility] Work Phone: 1(643) 584-582309-03-2025 Plan of care note* Plan of Care [...] returned? N/a Chart removed from folder? yes [id number] Miscellaneous Notes* Plan of Care - Arnie [...] (28 y.o.) Date of Service: 10/14/2024 CSN: [id number] Procedure(s): MAXILLOMANDIBULAR FIXATION SCREW REMOVAL LEFT MANDIBLE INCISION AND DRAINAGE Pre-Operative Diagnoses: * UNK Post-Operative Diagnoses: Surgeons and Role: * Marilou Vasquez MD - Primary Anesthesiologist: Papa Albrecht MD MEDICAL RECORDS TECH: Leia Fernandez CRNA Intervention Manager: Lauren Becerra RN Scrub Person Relief: Shani Maria ST Anesthesia Specialist: Devon Cintron Magento Web Developer: Luis Alberto Beckwith Scrub Person Preceptor: Thao Carson ST Operative findings: seroma/hematoma, no abscess, MMF screws removd Intra and immediate post-operative complications: none Type of anesthesia used: General Estimated blood loss: 10 mL Estimated urine output: Specimen(s): * No specimens in log * Implant(s): Implant Name Type Inv. Item Serial No. Radial Drill Operator For Plastic Lot No. LRB No. Used Action SCREW 2 X 12MM MMF SELF-DRILL - [id number] SCREW 2 X 12MM MMF SELF-DRILL CROW [...] - 10/14/2024 10:42 AM EDT Kade Gonzalez [id number] 1995 Attending: Marilou Vasquez MD Passenger Representative: Beverley Shepherd MD Pre Procedure Diagnosis: History [...] p.o. x 30 days prescription sent to [facility] to [facility] Discharge instructions updated with appropriate follow-up. Addiction Medicine service will sign off at this time. Please call [phone] for questions/concerns and we can determine if new consult needs placed for further evaluation. * Assessment & Plan Note - Esme Paz CNP - 10/13/2024 3:33 PM EDT Associated Problem(s): Methamphetamine use (HCC) - Sporadic use over the past 3 months - Last use 10/07 -Educated pt about risks with continued use and education about harm reduction - Recommend [facility] level of care or higher, appreciate [...] OR planned for 10/14 AM. NPO at [place] * Plan of Care - Arnie Akins [...] application on 10/04. Presented multiple times to [facility] since with jaw pain, swelling [...] N/A Does this match pharmacy listed with MENTAL HEALTH PROGRAM SPECIALIST: No Plan for discharge reviewed: Yes How will patient get home: Needs a ride Reviewed call light process: Yes AMPAC completed under AMPA Basic Mobility Short Form: Yes 4 eyes completed, documented, & witnessed : Yes Patient on tele? No Tele Number: n/a documented in this [id number] Progress note* Quick Note - Arnie Akins RN - 10/14/2024 2:52 PM EDT Arrangements by CM and NADIA team made, pt able to antoine diet. DC criteria met [id number] NoteGRANT TRAUMA and ACUTE CARE SURGERY TRAUMA [...] home Outpatient PT/OT/ST: PT , OT , [facility] Inpatient Consults: Procedures Consult Plastic Surgery Consult [...] . Do not swallow naloxone 4 mg/actuation [place] Commonly known as: NARCAN Administer 1 spray into one nostril for known or suspected opioid overdose. If patient worsens or does not respond, may repeat in 2-3 minutes. . Where to Get Your Medications These medications were sent to [facility] [address] [place] [address] Hours: 8:30 AM to 5:00 PM Mon-Fri acamprosate 333 mg tablet You can get these medications from any pharmacy Bring a paper prescription for each of these medications amoxicillin-clavulanate 400-57 mg/5 mL suspension Diet: Diet NPO Except: SIPS WITH MEDS Follow-up Appointments / Plans: Marilou Vasquez MD [address] [place] [address] Follow up in 1 week(s) Call to obtain follow up appointment after discharge Time spent on discharge: > 30 minutes CHIEF COMPLAINT/ HPI / PFSHx / EVENTS OVER LAST 24HRS: Please see today's progress note for CC, ROS, and PE. AUTHENTICATED BY DAISY HAMPTON, ON 10/14/2024 11:44:48[facility] 10-14-2024 Hospital course Narrative* Daisy Hampton, TOOL RADIAL DRILL PRESS SET UP OPERATOR - 10/14/2024 11:43 AM EDT DAVID TRAUMA [...] home Outpatient PT/OT/ST: PT , OT , DELIVERER PHARMACY Inpatient Consults: Procedures Consult Plastic Surgery Consult [...] . Do not swallow naloxone 4 mg/actuation [place] Commonly known as: NARCAN Administer 1 spray into one nostril for known or suspected opioid overdose. If patient worsens or does not respond, may repeat in 2-3 minutes. . Where to Get Your Medications These medications were sent to [facility] [address] [place] [address] Hours: 8:30 AM to 5:00 PM Mon-Fri acamprosate 333 mg tablet You can get these medications from any pharmacy Bring a paper prescription for each of these medications amoxicillin-clavulanate 400-57 mg/5 mL suspension Diet: Diet NPO Except: SIPS WITH MEDS Follow-up Appointments / Plans: Marilou Vasquez MD [address] [place] [address] [address] [address] Follow up in 1 week(s) Call to obtain follow up appointment after discharge Time spent on discharge: > 30 minutes CHIEF COMPLAINT/ HPI / PFSHx / EVENTS OVER LAST 24HRS: Please see today's progress note for CC, ROS, and PE. documented in this [id number] NotePlastic Surgery Plan of Care Kade Gonzalez [...] MD AUTHENTICATED BY BEVERLEY SHEPHERD, ON 10/14/2024 11:05:[address] [place] [address] 10-14-2024 Procedure note* Brief Op Note - Beverley Shepherd MD - 10/14/2024 11:03 AM EDT Brief Post Operative Note Patient Name: Kade Gonzalez : 1995 (28 y.o.) Date of Service: 10/14/2024 CSN: [id number] Procedure(s): MAXILLOMANDIBULAR FIXATION SCREW REMOVAL LEFT MANDIBLE INCISION AND DRAINAGE Pre-Operative Diagnoses: * UNK Post-Operative Diagnoses: Surgeons and Role: * Marilou Vasquez MD - Primary Anesthesiologist: Papa Albrecht MD MEDICAL RECORDS TECH: Leia Fernandez CRNA Intervention Manager: Lauren Becerra RN Scrub Person Relief: Shani Maria ST Anesthesia Specialist: Devon Cintron Magento Web Developer: Luis Alberto Beckwith Scrub Person Preceptor: Thao Carson ST Operative findings: seroma/hematoma, no abscess, MMF screws removd Intra and immediate post-operative complications: none Type of anesthesia used: General Estimated blood loss: 10 mL Estimated urine output: Specimen(s): * No specimens in log * Implant(s): Implant Name Type Inv. Item Serial No. Radial Drill Operator For Plastic Lot No. LRB No. Used Action SCREW 2 X 12MM MMF SELF-DRILL - [id number] SCREW 2 X 12MM MMF SELF-DRILL CROW [...] NO Beverley Shepherd MD 10/14/2024 11:03 AM [id number] History of Present illness Narrative* Beverley Shepherd [...] week Beverley Shepherd MD * Daisy Hampton, [facility] - 10/14/2024 8:35 AM EDT DAVID [...] application on 10/04. Presented multiple times to [facility] since with jaw pain, swelling [...] 1 Encounters: 10/08/24 79.4 kg (175 lb) [place] body weight: 75.3 kg (166 lb 0.1 [...] Pending Pharmacist: Marilou Chen RPh,PharmD Contact Number: [email or web address] ([phone]) or Secure Chat documented in this [id number] Procedure note* Op Note - Marilou Vasquez MD - 10/14/2024 10:42 AM EDT Kade Gonzalez [id number] 1995 Attending: Marilou Vasquez MD Passenger Representative: Beverley Shepherd MD Pre Procedure Diagnosis: History [...] PACU following the surgery without any issues. [employer] Work Phone: 1(747) 681-272209-03-2025 NoteGRANT PROGRESS NOTE MECHANISM OF INJURY: Remote [...] application on 10/04. Presented multiple times to [facility] since with jaw pain, swelling [...] to get an IV around 3am vitals. [id number] Progress note* Sign Off Note - Esme [...] sign off at this time. Please call [phone] for questions/concerns and we can determine if new consult needs placed for further evaluation. [id number] Evaluation + Plan note* Assessment & Plan [...] linkage - Encouraged to not share paraphernalia [id number] Evaluation + Plan note* Assessment & Plan Note - Esem Paz CNP - 10/13/2024 3:32 PM EDTAssociated [...] diaphoresis, and active hallucinations ) -Seizure precautions [id number] Evaluation + Plan note* Assessment & Plan [...] enhanced absorption and prevention of Wernicke's Encephalopathy [id number] Consult note* Makenna Bridges RN - 10/13/2024 11:37 AM EDT Date: 10/13/2024 Time: 11:38 AM Patient Name: Kade Gonzalez Date of : 1995 Reason for Consult: Discharge Plan Discussion: Met with patient at bedside. Introduced self and role. No PCP. Patient currently homeless; not staying at a group home. Does not want information on shelters in [place]; wants to be dc'd to rehab facility. [...] Current Home Equipment: None Caregiver Assessment: SDOH: [id number] Consult note* Makenna Bridges RN - 10/13/2024 11:37 AM EDT Date: 10/13/2024 Time: 11:38 AM Patient Name: Kade Gonzalez Date of : 1995 Reason for Consult: Discharge Plan Discussion: Met with patient at bedside. Introduced self and role. No PCP. Patient currently homeless; not staying at a group home. Does not want information on shelters in [place]; wants to be dc'd to rehab facility. [...] None Caregiver Assessment: SDOH: documented in this [id number] Progress note* Quick Note - Liza Herzog CNP - 10/13/2024 10:55 AM EDT OR planned for 9/3 AM. NPO at [place] [facility] Work Phone: [phone]) 215-376809-02-2025 Plan of care note* Plan of Care [...] level of psychosocial functioning Outcome: Partially Met [id number] Progress note* Tertiary Note - Daisy Hampton [...] application on 10/04. Presented multiple times to [facility] since with jaw pain, swelling [...] based on SCr of 0.59 mg/dL).): Lovenox [id number] Plan of care note* Plan of Care [...] level of psychosocial functioning Outcome: Partially Met [id number] Hospital Discharge instructions* Discharge Instructions* Daisy Hampton [...] Trauma and Acute Care Surgery Office: [address] 1st Floor, [address] [place] [address] Hours: Saturday-Saturday, 8am to 4pm. If you need to speak with the trauma/surgery team after hours, please call and ask to speak with the Trauma Advanced Practice Provider substation electrician supervisor. Parking: You may park in the [employer] [facility], which is attached to the office [...] obtaining a primary care physician please call: [phone] Pain [...] taking a prescription pain medicine, take an vwma-hjn-dtkhcxi medicine as directed such as Tylenol (Acetaminophen) [...] you when you may return to work [place] Substance Use Treatment Resources Search for treatment by zip code: https://findtreatment.gov/ [facility] Call to schedule an outpatient appointment to be seen Saturday or Saturday PM [address], [address] [facility] [address] SAFE POINT: Free sterile, unused points/needles & pipes Walk up services 4-8pm and Sat 9a-1p [address] [facility] [email or web address] [facility] Walk in intake hours 9am-1pm Saturday-Saturday [address] [place] [address] Free fentanyl test strips & Narcan: [email or web address] [...] reduction strategy would support assigning a designated oil truck driver or taking a cab, as [...] safe ride home or designate a non-drinking oil truck driver for nights out, or plan [...] arises from the dressing documented in this [id number] Progress note* Quick Note - Sonia Mcduffie [...] N/A Does this match pharmacy listed with MENTAL HEALTH PROGRAM SPECIALIST: No Plan for discharge reviewed: Yes How will patient get home: Needs a ride Reviewed call light process: Yes AMPAC completed under [facility] Basic Mobility Short Form: Yes 4 eyes completed, documented, & witnessed : Yes Patient on tele? No Tele Number: n/a [id number] NoteGRANT TRAUMA SURGERY TRAUMA EVALUATION / HISTORY [...] on 10/12/2024 .) naloxone (NARCAN) 4 mg/actuation [place] Administer 1 spray into one nostril for [...] Pupils 3 mm equal and reactive bilaterally. [place] Coma Scale EYES (4-spont, 3-to verb stim, [...] [AM] Demetrius Wilder MD No diagnosis found. [facility] Data Physical Exam Vital signs reviewed. [...] All other components within normal limits Narrative: [facility] Services has implemented the eGFR [...] Procedure Abnormality Status --------- ------ CBC Auto Differential[[id number]] Abnormal Final result Please view results for [...] on 10/12/2024 .) naloxone (NARCAN) 4 mg/actuation [place] Administer 1 spray into one nostril for [...] this documentation, there is a possibility of rpgdf-m-hoxc errors inherent to this technology that may [...] Known Allergies Demetrius Wilder MD 10/14/24 1125 [id number] Emergency department Note* Demetrius Wilder MD - [...] [AM] Demetrius Wilder MD No diagnosis found. [facility] Data Physical Exam Vital signs reviewed. [...] All other components within normal limits Narrative: [facility] Services has implemented the eGFR [...] Procedure Abnormality Status --------- ------ CBC Auto Differential[[id number]] Abnormal Final result Please view results for [...] on 10/12/2024 .) naloxone (NARCAN) 4 mg/actuation [place] Administer 1 spray into one nostril for [...] this documentation, there is a possibility of bqqer-f-mmkg errors inherent to this technology that may [...] 2; Jaw pain; Meño documented in this [id number] Emergency department Triage note* Key Daniel RN [...] headache, trouble swallowing. Pt alert and oriented. [id number] Emergency department Note* Liu Michelle RN - 10/12/2024 4:07 PM EDT Bed: 19 Expected date: Expected time: Means of arrival: Comments: Medic 2; Jaw pain; Meño [id number] Hospital course Narrative* Mihai Ding PA-C - [...] plan: Follow up outpatient documented in this [id number] NoteGRANT TRAUMA AGAINST MEDICAL ADVICE DISCHARGE Reason [...] outpatient AUTHENTICATED BY MIHAI DING, ON 10/11/2024 19:27:[address] [place] [address] 10-11-2024 Progress note* Quick Note - Kaitlyn Auguste LPN - 10/11/2024 7:03 PM EDT Patient is leaving against medical advice. Understands risks of leaving. IV removed and tolerated well. All belongings left with patient. [id number] Miscellaneous Notes* Adriana Note - Kaitlyn Auguste [...] about harm reduction - Recommend [facility] level of care or higher - [...] urgent questions or concerns arise, please call [phone]. Thank you. * Assessment & Plan Note [...] current opioid pain control -Patient discharged on [facility] last admission however did not start taking/ [...] correspondence this note was partially generated by [employer] voice recognition software and is inherently subject [...] lesion in the morning. documented in this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 patient. Danita Barcenas PA-C 06/11/24 0118 [facility] [employer] Work Phone: 1(703) 441-662112-17-2024 History of Present illness Narrative* Christy Retana APRN - JESSICA - 01/28/2024 2:00 PM EST Images from the original note were not included. [facility] [address] [place] [phone] Dept: [phone] Dept Loc: [phone] Subjective Kade Barrera is a 28 y.o. year old male who presents to the office with the following complaint(s): Chief Complaint Patient presents with URI Cough /Body ache/ migraine/stuffy nose /pt stated that he started new medication yesterday and thatwhen he started feeling sick. HPI -cough, congestion, headache, runny nose -started yesterday -believes medication caused symptoms -clonidine and Risperdal -[facility] -No over the counter medications utilized currently [...] forclarification) ALAINA Burch 01/28/24 documented in this [facility]05-09-2024 Hospital Discharge instructions Patient Education 06/20/2023 19:08:45 Alcohol Withdrawal Syndrome, Xcsy-qf-Ndpm Alcohol Withdrawal Syndrome When a person who [...] away. Follow these instructions at home: Take lzwq-tsf-ztgjklv and prescription medicines only as told by [...] 07/16/2008 Document Revised: 01/10/2018 Document Reviewed: 10/04/2017 [employer] Patient Education 2020 [employer]. 06/20/2023 02:18:58 Seizure, New Onset, Unknown Cause [...] told. 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 [address] [place] [address]. All rights reserved. This information is not intended as a substitute for professional medical care. Always follow yourhealthcare professional's instructions. Follow Up Care 06/20/2023 02:07:45 With:YUKI DECKER DO Address: [address] [place] [phone] [phone] When: Unknown Comments:Please follow-up for your post-hospital follow-up appointment. [facility] 05-09-2024 Note Discharge Instructions Thank you for allowing [facility] to assist you with your healthcare needs. The following is importantdischarge information regarding your hospital visit. Your Diagnosis Alcohol dependence Depression with anxiety Seizure Seizure Seizure due to alcohol withdrawal What to do next Follow Up Appointments Follow Up with LABOR, YUKI DO When Why: Please follow-up for your post-hospital follow-up appointment. Where: [address] [place] [address]- [phone] The Following Activity and Diet Have Been [...] What is chlordiazepoxide? Chlordiazepoxide is a benzodiazepine (yju-hqk-fkm-AZE-eh-peen) that is used to treat anxiety disorders. [...] may report side effects to FDA at 0-862-YXW-9895. What other drugs will affect chlordiazepoxide? Using chlordiazepoxide with other drugs that make you sleepy or slow your breathing can cause dangerous side effects or . Ask your doctor before using opioid medication, a sleeping pill, a muscle relaxer, or medicine for anxiety or seizures. Other drugs may affect chlordiazepoxide, including prescription and xyez-olr-mkogqeo medicines, vitamins, and herbal products. Tell your [...] to ensure that the information provided by [employer]. ('[employer]') is accurate, up-to-date, and complete, but no guarantee is made to that effect. Drug information contained herein may be time sensitive. [employer] information has been compiled for use by healthcare practitioners and consumers in the [place] and therefore [employer] does not warrant that uses outside of the [place] are appropriate, unless specifically indicated otherwise. [employer] drug information does not endorse drugs, diagnose patients or recommend therapy. [employer] drug information isan informational resource designed to [...] effective or appropriate for any given patient. [employer] does not assume any responsibility for any aspect of healthcare administered with the aid of information [employer] provides. The information contained herein is not intended to cover all possible uses, directions, precautions, warnings, drug interactions, allergic reactions, or adverse effects. If you have questions about the drugs you are taking, check with your doctor, nurse or pharmacist. Copyright 0062-9931 [employer] Version: .. Revision Date: 09/12/2022. Education Materials [...] away. Follow these instructions at home: Take hxdr-gad-xtojglo and prescription medicines only as told by [...] 07/16/2008 Document Revised: 01/10/2018 Document Reviewed: 10/04/2017 [employer] Patient Education 2020 [employer] Seizure: New Onset with Unknown Cause [...] told. 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 [address] [place] [address]. All rights reserved. This information is not intended as a substitute for professional medical care. Always follow yourhealthcare professional's instructions. Additional Information VACCINATE! IT SAVES LIVES! Members of the community who have not yet received the COVID-19 vaccine and would like to receive it can visit one of [facility] vaccine clinics. There are many vaccine clinic locations within the [facility]. For locations and available times, please visit [email or web address].[place].gov/. It is important to note that some COVID mobile vaccine clinics are held outdoors and may be canceled in rainy or stormy conditions. To learn more about pediatric vaccinations (ages 5-11), we invite you to visit the [facility] webpage. https://www.[email or web address]/pages/7646-[place]-Wlwpqbkwzaz-Lakcnrcolp-Ltuks-Sut stions.htmlTo learn more about the COVID-19 vaccine, we invite you to visit the CDC website for a list of frequently asked questions.https://www.cdc.gov/coronavirus/2019-ncov/vaccines/faq.html [facility] Patient Portal Access Instructions: Stay connected with your healthcare team and access your personal medical information anytime with the [facility] Patient Portal. Please follow the directions below to create your [employer] account: 1.Access the email account you provided upon registration to the hospital/physician office.2.Look for an invitation email from [facility].3.Open the email and access the invitation link: AcceptInvitation to [facility].4.Fill in the required emmanuel to create your account. To access your account, visit [employer]/OWMOneChart. Click the blue button labeled Access Patient Portal and then log in with the username and password that you created in the steps above. You will be able to view your test results, lab results, a summary of your visits, upcoming appointments and more. There is also a convenient messaging option where you can send secure messages to your p [employer]. In addition, you will have the ability to download any documents or summaries to your computer and/or send the information securely to a physician. Remember that your healthcare information is confidential, so carefully consider who you will allowto register on the [facility] Patient Portal for access to your information. You can also access the [facility] Patient Portal on the [facility] pura. Simply click on Patient Portal and then log into your account. If you would like to receive a full copy of your medical records, please contact the [facility] Medical Records Department by calling [phone], Saturday through Saturday between 8 a.m. and [...] Call your local pharmacy or go to [email or web address] to find one close to you.3.Make use of household items: Use cat litter or old coffee grounds to dispose medications if other options arenot available. Mix your drugs with these household products, seal them in an airtight container andthrow it into the garbage. Call [facility]: [phone] to be sure your drugs can be [...] Signatures Patient Education Materials Alcohol Withdrawal Syndrome, Ithp-rv-Lpkt Seizure, New Onset, Unknown Cause (Adult) Medication Leaflets chlordiazePOXIDE My discharge plan and instructions have been reviewed and explained to me and I,KADE GONZALEZ understand my current condition and have read and understand these discharge instructions. I havereceived a written copy of the plan/instructions. If I have questions, I am aware that I should contact my doctor. 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 Patient [facility] emergency department on 06/20/2023 after possible seizure. Patient was at [facility] ED earlier in the day with [...] Date: June 20, 2023 Verified By: CHRIS LENOARD MD CLINICAL STATEMENT: IMPRESSION: No acute cardiopulmonary [...] Sign Date: 06/20/2023 3:12:39 AM Ordering Provider: [facility]05-09-2024 Note ORIGINAL EXAMINATION: CT OF THE CERVICAL [...] Sign Date: 06/20/2023 3:20:14 AM Ordering Provider: [facility]05-09-2024 Note ORIGINAL EXAMINATION: CT OF THE HEAD [...] Date: 06/20/2023 3:18:15 AM [facility]ing [facility] NoteSinus tachycardia Electronic Signature: MICHAEL PADRON DO 06/20/2023 02:28:[address] [place] [address] 05-08-2024 Discharge summary Author Carmelo Mccray [facility] June 20, 2023 12:34am Note Date/Time June 19, 2023 9:50pm [facility] Medical Records Department [address] [place] [address] Emergency Department Summary 06/19/23 MR#: [id number] Acct: [id number] Name: KADE GONZALEZ Rep #:[id number] : 1995 27 From: Carmelo Clarke PCP: [...] his symptoms betterand nothing makes them worse. [facility] Medical History Alcohol abuse Alcohol dependence [...] % (Auto) 60.8 Lymph % (Auto) 28.9 Denton % (Auto) 8.4 Eos % (Auto) 0.6 [...] sinus rhythm with a rate of 75. [place] interval, QRS interval, and QTc intervals were all normal. [place] was normal. There are no acute ST [...] your Primary Care Provider. Call [facility] ([phone]) or report to the closest Emergency Room. Call 911 if necessary. 06/20/2333 <Electronically signed by Carmelo Mccray DO> Cosigner Signature (if applicable): CC: No Primary Care Physician ~ Signed [facility] Work Phone: 1(334) 676-998103-20-2024 Progress note Author Carmelo Albert [facility] May 01, 2023 9:43am Note Date/Time May 01, 2023 7:0 1am [facility] Medical Records Department [address] [place] [address] Progress Note - Hospitalist 05/01/23 0658 MR#: [id number] Acct: [id number] Name: KADE GONZALEZ Rep #:[id number] : 1995 27 From: Carmelo Albert DO [...] (Auto) 49.6, Lymph % (Auto) 41.9 H, Denton % (Auto) 6.5, Eos % (Auto) 0.3, [...] type admission. Charges/Coding Visit Charges Inpatient E&M: 68442 Subs Hosp L2 05/01/23 0943 <Electronically signed by Carmelo Albert DO> Cosigner Signature (if applicable): CC: ~ Signed [facility] Work Phone: 1(841) 205-224503-20-2024 Discharge summary Author Marcio Cardona [facility] May 01, 2023 6:26am Note Date/Time May 01, 2023 5:2 8am [facility] Medical Records Department [address] [place] [address] Emergency Department Summary 05/01/23 MR#: [id number] Acct: [id number] Name: KADE GONZALEZ Rep #:[id number] : 1995 27 From: Marcio Cardona MD [...] does not intend to do that again. [facility] Medical History (Updated 05/01/23 @ 05:48 [...] your Primary Care Provider. Call [facility] ([phone]) or report to the closest Emergency Room. Call 911 if necessary. 05/01/23 06 <Electronically signed by Marcio Cardona MD> Cosigner Signature (if applicable): CC: No Primary Care Physician ~ Signed [facility] Work Phone: 1(420) 507-675303-20-2024 History and physical note Author Jacquie Beckwith [facility] May 01, 2023 5:50am Note Date/Time May 01, 2023 5:3 3am [facility] Medical Records Department [address] [place] [address] H&P Exam - Hospitalist 05/01/23 0532 MR#: [id number] Acct: [id number] Name: KADE GONZALEZ Rep #:[id number] : 1995 27 From: Jacquie Beckwith MD [...] migraines who presents to the [facility] ED on 05/01/23 withlast EtOH intake [...] administered phenobarbital 97.2 mg p.o. x 1. [facility] Medical History (Updated 05/01/23 @ [...] migraines who presents to the [facility] ED on 05/01/23 withlast EtOH intake [...] type admission. Charges/Coding Visit Charges Inpatient E&M: 71952 Init Hosp L2 05/01/23 0550 <Electronically signed by Jacquie Beckwith MD> Cosigner Signature (if applicable): CC: Dr. Jacquie Beckwith MD; No Primary Care Physician~ Signed [facility] Work Phone: 1([phone]) 599-513202-10-2024 History and physical note Author Stan Thomas [facility] March 23, 2023 12:48am Note Date/Time March 23, 2023 12:18am [facility] Medical Records Department [address] [place] [address] H&P Exam - Hospitalist 03/23/23 0017 MR#: [id number] Acct: [id number] Name: KADE GONZALEZ Rep #:[id number] : 1995 27 From: Stan Bullock PCP: Care Physician,No Primary Status :ADM IN Location: [facility] [id number] HPI - General General Date of Admission: [...] including hematemesis melena or alcoholic liver disease [facility] Medical History Alcohol abuse Anxiety [...] % (Auto) 58.3, Lymph % (Auto) 34.2, Denton% (Auto) 6.3, Eos % (Auto) 0.1, Baso [...] [facility]. [facility] Patient on phenobarbital based order set along with other adjunctive medications gabapentin, Bentyl, Vistaril, clonidine, Klonopin as needed for alcohol withdrawal symptom control. Patient is on thiamine and folate acid. Twelve-lead EKG shows sinus tachycardiaat 108 bpm. Liver chemistry normal limit. GGT pending. Serum alcohol was highat 212. CIWA monitor. claims manager consulted.. 2. Chronic nicotine use/cigarette smoking: [...] % (Auto) 58.3, Lymph % (Auto) 34.2, Denton% (Auto) 6.3, Eos % (Auto) 0.1, Baso [...] Alcohol 212.0 Charges/Coding Visit Charges Inpatient E&M: 14550 Init Hosp L3 03/23/238 <Electronically signed by Stan Thomas MD> Cosigner Signature (if applicable): CC: Dr. Stan Thomas MD; No Primary Care Physician~ Signed [facility] Work Phone: 1(732) 535-830502-10-2024 Discharge summary Author Daquan Reid [facility] March 23, 2023 12:42am Note Date/Time March 22, 2023 1 0:17pm [facility] Medical Records Department [address] [place] [address] Emergency Department Summary 03/22/23 MR#: [id number] Acct: [id number] Name: KADE GONZALEZ Rep #:[id number] : 1995 27 From: Daquan Reid MD PCP: Care Physician,No Primary Status :ADM IN Location: [place] [address] Daquan Reid MD on [...] detox last year, then went [facility]. [facility] Medical History Alcohol abuse Anxiety Asthma [...] discussed with Dr. Thomas for admission to [facility] for detox from alcohol. Patient is [...] % (Auto) 58.3 Lymph % (Auto) 34.2 Denton % (Auto) 6.3 Eos % (Auto) 0.1 [...] Disposition Disposition: Acute Care Hospital [facility] What to do if you have Problems For any increased pain, shortness of breath, bleeding, nausea or vomiting, chestpain, or any unexpected problems, contact your Primary Care Provider. Call [facility] ([phone]) or report to the closest Emergency Room. Call 911 if necessary. 03/23/23 0018 <Electronically signed by Daquan Reid MD> Cosigner Signature (if applicable): CC: No Primary Care Physician ~ Signed [facility] Work Phone: 1([phone]) 507-105402-10-2024 Discharge summary Author Daquan Reid [facility] March 23, 2023 12:42am Note Date/Time March 22, 2023 1 0:17pm [facility] Medical Records Department [address] [place] [address] Emergency Department Summary 03/22/23 MR#: [id number] Acct: [id number] Name: KADE GONZALEZ Rep #:[id number] : 1995 27 From: Daquan Reid MD PCP: Care Physician,No Primary Status :ADM IN Location: [place] [address] Daquan Reid MD on [...] detox last year, then [facility]. [facility] Medical History Alcohol abuse Anxiety Asthma [...] discussed with Dr. Thomas for admission to [facility] for detox from alcohol. Patient is [...] % (Auto) 58.3 Lymph % (Auto) 34.2 Denton % (Auto) 6.3 Eos % (Auto) 0.1 [...] Disposition Disposition: Acute Care Hospital [facility] What to do if you have Problems For any increased pain, shortness of breath, bleeding, nausea or vomiting, chestpain, or any unexpected problems, contact your Primary Care Provider. Call [facility] ([phone]) or report to the closest Emergency Room. Call 911 if necessary. 03/23/2317 <Electronically signed by Daquan Redi MD> Cosigner Signature (if applicable): CC: No Primary Care Physician ~ Signed [facility] Work Phone: 1(194) 790-939806-27-[address] Albert [facility] August 07, 2022 9:19am Note Date/Time August 07, 2022 9:18 am [facility] Medical Records Department [address] [facility] [place] [address] Instructions for Home/Discharge Instructions 08/07/22917 MR#: [id number] Acct: [id number] Name: KADE GONZALEZ Rep #:[id number] : 1995 From: Carmelo Albert DO PCP: [...] DO; No Primary Care Physician ~ Signed [facility] Work Phone: [phone]) 321-691606-27-[address] Albert [facility] August 07, 2022 9:19am Note Date/Time August 07, 2022 9:19 am [facility] Medical Records Department [address] [place] [address] Discharge Summary 08/07/22918 MR#: [id number] Acct: [id number] Name: KADE GONZALEZ Rep #:[id number] : 1995 From: Carmelo Albert DO PCP: Care Physician,No Primary Status :ADM IN Location: [place] [address] Providers Date of Admission: 08/05/22 Primary Care [...] Patient to follow up [facility] for inpatient treatment on 08/08 Given [...] Self Care Charges/Coding Visit Charges Inpatient E&M: 51172 Disch Hosp 08/07/22918 <Electronically signed by Carmelo Albert DO> Cosigner Signature (if applicable): CC: Dr. Carmelo Albert DO; No Primary Care Physician~ Signed [facility] Work Phone: 1(860) 104-559206-27-[address] Albert [facility] August 07, 2022 9:18am Note Date/Time August 07, 2022 8:02 am [facility] Medical Records Department [address] [place] [address] Progress Note - Hospitalist 08/07/22 0801 MR#: [id number] Acct: [id number] Name: KADE GONZALEZ Rep #:[id number] : 1995 From: Carmelo Albert DO PCP: Care Physician,No Primary Status :ADM IN Location: [place] [id number] Reason for Visit Reason for Visit: Diagnoses [...] Patient to follow up with [facility] for inpatient treatment on 08/08 Given [...] Cosigner Signature (if applicable): CC: ~ Signed [facility] Work Phone: 1(154) 833-226206-26-[address] Albert [facility] August 06, 2022 12:45pm Note Date/Time August 06, 2022 8:25 am [facility] Medical Records Department [address] [place] [address] Progress Note - Hospitalist 08/06/22822 MR#: [id number] Acct: [id number] Name: KADE GONZALEZ Rep #:[id number] : 1995 From: Carmelo Albert DO PCP: Care Physician,No Primary Status :ADM IN Location: [place] [address] Reason for Visit Reason for Visit: Diagnoses [...] % (Auto) 56.8, Lymph % (Auto) 33.2, Denton% (Auto) 8.3, Eos % (Auto) 0.3, Baso [...] Patient to follow up with [facility] for inpatient treatment on 08/08 PLAN: Plan Chronic complicating conditions: * Polysubstance abuse-Patient admits to utilizing cocaine and methamphetamines as well-Recommend cessation-180 consultation * Tobacco abuse-Recommend cessation-Nicotine patch DVT prophylaxis -Low risk -Recommend early and frequent ambulation CODE STATUS -Full code Charges/Coding Visit Charges Inpatient E&M: 04761 Subs Hosp L1 08/06/22 1245 <Electronically signed by Carmelo Albert DO> Cosigner Signature (if applicable): CC: ~ Signed [facility] Work Phone: 1(713) 133-703806-25-[address] Ridley [facility] August 05, 2022 7:14pm Note Date/Time August 05, 2022 3:51 pm [facility] Medical Records Department [address] [place] [address] Emergency Department Summary 08/05/22 MR#: [id number] Acct: [id number] Name: KADE GONZALEZ Rep #:[id number] : 1995 26 From: Cadence CAMPA PCP: Care Physician,No Primary Status :[facility]M [facility] <KATHERYN Mcdowell - Last Filed: 08/05/22 [...] <KATHERYN Mcdowell - Last Filed: 08/05/22 17:08> [facility] Medical History (Updated 08/05/22 @ [...] <KATHERYN Mcdowell - Last Filed: 08/05/22 17:08> [facility] MDM Narrative Medical decision making narrative: [...] % (Auto) 56.8 Lymph % (Auto) 33.2 Denton % (Auto) 8.3 Eos % (Auto) 0.3 [...] (Auto) Neut % (Auto) Lymph % (Auto) Denton % (Auto) Eos % (Auto) Baso % [...] Ridley MD - Last Filed: 08/05/22 16:54> [facility] Lab Data Labs: Laboratory Results - last 24 hr 08/05/22 08/05/22 08/05/22 15:56 15:56 15:56 WBC 7.1 RBC 4.56 L Hgb 14.6 Hct 41.3 MCV 90.6 MCH 32.0 MCHC 35.4 RDW Std Deviation 38.1 RDW Coeff of Jessica 11.6 Plt Count 249 MPV 9.1 Immature Gran % (Auto) 0.400 Neut % (Auto) 56.8 Lymph % (Auto) 33.2 Denton % (Auto) 8.3 Eos % (Auto) 0.3 [...] (Auto) Neut % (Auto) Lymph % (Auto) D[place] % (Auto) Eos % (Auto) Baso % [...] problems, contact your Primary Care Provider. Call [facility] ([phone]) or report to the closest Emergency Room. Call 911 if necessary. 08/05/221707 <Electronically signed by Cadence CAMPA> Cosigner Signature (if applicable): 08/05/221913 <Electronically signed by Fior Ridley MD> CC: No Primary Care Physician ~ Signed [facility] Work Phone: 1([phone]) 159-960906-25-2023 History and physical note Author Dr. Hirsch [facility] August 05, 2022 5:16pm Note Date/Time August 05, 2022 5:05 pm [facility] Medical Records Department [address] [place] [address] H&P Exam - Hospitalist 08/05/22 170 MR#: [id number] Acct: [id number] Name: KADE GONZALEZ Rep #:[id number] : 1995 From: Ashley Hirsch DO PCP: Care Physician,No Primary Status :ADM IN Location: [facility] KQ448-1 HPI - General General Date of Admission: 08/05/22 Date of Service: 08/05/22 Chief Complaint: Desire for detoxification from alcohol HPI Narrative KADE GONZALEZ, is a 26 M who presented to the emergency department at [facility] on 08/05/2022 requesting detox from alcohol. [...] discharge is for readmission into inpatient rehab. [facility] Medical History No acute medical [...] % (Auto) 56.8, Lymph % (Auto) 33.2, [place]enton% (Auto) 8.3, Eos % (Auto) 0.3, Baso [...] -Full code Charges/Coding Visit Charges Inpatient E&M: 42569 Init Hosp L2 08/05/22 1716 <Electronically signed by Ashley Hirsch DO> Cosigner Signature (if applicable): CC: Dr. Ashley Hirsch DO; No Primary Care Physician~ Signed [facility] Work Phone: Discharge summary Author Marcio Cardona [facility] May 01, 2023 6:26am Note Date/Time May 01, 2023 5:2 8am [facility] Medical Records Department [address] [place] [address] Emergency Department Summary 05/01/23 MR#: [id number] Acct: [id number] Name: KADE GONZALEZ Rep #:[id number] : 1995 27 From: Marcio Cardona MD [...] does not intend to do that again. [facility] Medical History (Updated 05/01/23 @ 05:48 [...] your Primary Care Provider. Call [facility] ([phone]) or report to the closest Emergency Room. Call 911 if necessary. 05/01/23625 <Electronically signed by Marcio Cardona MD> Cosigner Signature (if applicable): CC: No Primary Care Physician ~ Signed [facility] Work Phone: Discharge summary Author Colin Colon [facility] Note Date/Time October 02, 2024 7: 26am [facility] Medical Records Department [address] [place] [address] Emergency Department Summary 10/02/24 MR#: [id number] Acct: [id number] Name: KADE GONZALEZ Rep #:[id number] : 1995 28 From: Colin Colon DO [...] states he would prefer to go to [place] versus [place] or [place]. Therefore the case was discussed withDr. Parekh [...] 76.7 H Lymph % (Auto) 14.6 L Denton % (Auto) 7.1 Eos % (Auto) 0.5 [...] Location: [facility] Management Discussion w/another healthcare provider: [employer] Discharge Plan Triage Chief Complaint: Head Injury ED Provider: Colin Colon Dx/Rx/DC Orders Clinical Impression: Mandible open fracture, History of alcohol abuse, Tobacco use, Alcohol abuse Prescriptions: No Action NK Primary Care Provider: Care Physician,No Primary Referrals: Care Physician,No Primary [Primary Care Provider] - Print Language: Ukrainian Disposition Disposition: Acute Care Hospital Discharge Location: [facility] What to do if you have Problems For any increased pain, shortness of breath, bleeding, nausea or vomiting, chestpain, or any unexpected problems, contact your Primary Care Provider. Call [facility] ([phone]) or report to the closest Emergency Room. Call 911 if necessary. 10/02/24725 <Electronically signed by Colin Colon DO> Cosigner Signature (if applicable): CC: No Primary Care Physician ~ Signed [facility] Work Phone: Evaluation note* Diagnosis Onset Date Resolution Status Alcohol abuse acute Desire for detoxification ac [facility] Work Phone: Evaluation note* Diagnosis Onset Date Resolution Status Acute alcohol intoxication a cute Acute hyperactive alcohol withdrawal delirium acute Desire for detoxification [facility] Work Phone: Evaluation note* Diagnosis Onset Date Resolution Status Acute hyperactive alcohol withdrawal delirium resolved Alcohol dependence acute Alcohol withdrawal acute [facility] Work Phone: Evaluation note* Diagnosis Onset Date Resolution Status Acute hyperactive alcohol withdrawal delirium resolved Alcohol withdrawal acute [facility] Work Phone: Evaluation note* Diagnosis Influenza A- Primary Influenza with other respiratory manifestations URI with cough and congestion Generalized body aches [facility] [employer] [facility]* Diagnosis Chest pain, unspecified type- Primary Methamphetamine abuse (HCC) Nondependent amphetamine or related acting sympathomimetic abuse, unspecified Alcohol abuse Nondependent alcohol abuse, unspecified drinking behavior Chest pain Unspecified chest pain Methamphetamine abuse (HCC) Nondependent amphetamine or related acting sympathomimetic abuse, unspecified Alcohol abuse Nondependent alcohol abuse, unspecified drinking behavior documented in this encounter [facility] [employer] note* Diagnosis Mandible fracture (HCC)- Primary Closed fracture of unspecified site of mandible Closed fracture of mandible, unspecified laterality, unspecified mandibular site, initial encounter ([facility]) Alcohol use disorder, severe, dependence (HCC) Alcohol withdrawal syndrome without complication (HCC) Methamphetamine use (HCC) Nondependent amphetamine or related acting sympathomimetic abuse, unspecified Cocaine use Cannabis use, uncomplicated Cigarette nicotine dependence without complication Acute pain History of benzodiazepine use [facility] Diagnosis Mandible fracture (HCC)- Primary Closed fracture of unspecified site of mandible Closed fracture of mandible, unspecified laterality, unspecified mandibular site, initial encounter ([facility]) Trauma- Primary Injury, other and [...] sympathomimetic abuse, unspecified [facility] Diagnosis Mandible fracture (HCC)- Primary Closed fracture of unspecified site of mandible Closed fracture of mandible, unspecified laterality, unspecified mandibular site, initial encounter ([facility]) Closed fracture of mandible with [...] (HCC) Unspecified psychosis [facility] Diagnosis Mandible fracture (HCC)- Primary Closed fracture of unspecified site of mandible Closed fracture of mandible, unspecified laterality, unspecified mandibular site, initial encounter ([facility]) Closed fracture of mandible with [...] [facility]. Hirsch [facility] August 05, 2022 5:16pm Note Date/Time August 05, 2022 5:05 pm [facility] Medical Records Department [address] [place] [id number] H&P Exam - Hospitalist 08/05/22 1701 MR#: [id number] Acct: [id number] Name: KADE GONZALEZ Rep #:[id number] : 1995 26 From: Ashley Hirsch DO PCP: Care Physician,No Primary Status :ADM IN Location: [facility] [id number] HPI - General General Date of Admission: 08/05/22 Date of Service: 08/05/22 Chief Complaint: Desire for detoxification from alcohol HPI Narrative KADE GONZALEZ, is a 26 M who presented to the emergency department at [facility] on 08/05/2022 requesting detox from alcohol. [...] discharge is for readmission into inpatient rehab. [facility] Medical History No acute medical [...] % (Auto) 56.8, Lymph % (Auto) 33.2, [place]% (Auto) 8.3, Eos % (Auto) 0.3, Baso [...] -Full code Charges/Coding Visit Charges Inpatient E&M: 76686 Init Hosp L2 08/05/22 1716 <Electronically signed by Ashley Hirsch DO> Cosigner Signature (if applicable): CC: Dr. Ashley Hirsch DO; No Primary Care Physician~ Signed [facility] Work Phone: History and physical note Author Stan Thomas [facility] March 23, 2023 12:48am Note Date/Time March 23, 2023 12:18am [facility] Medical Records Department [address] [facility] [facility] [place] [address] H&P Exam - Hospitalist 03/23/23 0017 MR#: [id number] Acct: [id number] Name: KADE GONZALEZ Rep #:[id number] : 1995 27 From: Stan Bullock PCP: Care Physician,No Primary Status :ADM IN Location: [place] [address] HPI - General General Date of Admission: [...] including hematemesis melena or alcoholic liver disease [facility] Medical History Alcohol abuse Anxiety [...] % (Auto) 58.3, Lymph % (Auto) 34.2, [place]% (Auto) 6.3, Eos % (Auto) 0.1, Baso [...] Serum alcohol was highat 212. CIWA monitor. claims manager consulted.. 2. Chronic nicotine use/cigarette smoking: [...] % (Auto) 58.3, Lymph % (Auto) 34.2, [place]% (Auto) 6.3, Eos % (Auto) 0.1, Baso [...] Alcohol 212.0 Charges/Coding Visit Charges Inpatient E&M: 76927 Init Hosp L3 03/23/23 0048 <Electronically signed by Stan Thomas MD> Cosigner Signature (if applicable): CC: Dr. Stan Thomas MD; No Primary Care Physician~ Signed [facility] Work Phone: History and physical note Author Jacquie Beckwith [facility] May 01, 2023 5:50am Note Date/Time May 01, 2023 5:3 3am [facility] Medical Records Department [address] [place] [address] H&P Exam - Hospitalist 05/01/23 0532 MR#: [id number] Acct: [id number] Name: KADE GONZALEZ Rep #:[id number] : 1995 27 From: Jacquie Beckwith MD [...] migraines who presents to the [facility] ED on 05/01/23 withlast EtOH intake [...] administered phenobarbital 97.2 mg p.o. x 1. [facility] Medical History (Updated 05/01/23 @ 05:48 by [...] migraines who presents to the [facility] ED on 05/01/23 withlast EtOH intake reported prior to ED arrival but less than his normal with complaint of mild tremors and tactile disturbances otherwise no severe withdrawal symptoms. #1. Acute EtOH Withdrawal: Will admit to [facility], routine labs obtained in the ED upon [...] type admission. Charges/Coding Visit Charges Inpatient E&M: 78276 Init Hosp L2 05/01/23 0550 <Electronically signed by Jacquie Beckwith MD> Cosigner Signature (if applicable): CC: Dr. Jacquie Beckwith MD; No Primary Care Physician~ Signed [facility] Work Phone: Hospital course Narrative No data available for this section [facility] Discharge instructions* Attachments The following attachments cannot be sent through Care Everywhere. * Chest Pain, Adult ED (Ukrainian) * Troponin Test (Ukrainian) * Drug Abuse Treatment (Ukrainian) * Alcohol Use Disorder ED (Ukrainian) * Polysubstance Use Disorder (Ukrainian) * Substance Use Disorder ED (Ukrainian) [facility] Additional Instructions Your exam would [...] infection permanent disability facial abnormality and even .[facility] Work Phone: Hospital Discharge instructionsAdditional Instructions [...] for further outpatient evaluation, pain control and management.[facility] Work Phone: Instructions* Attachments The following attachments cannot be sent through Care Everywhere. * Flu Discharge Instructions, Adult (Ukrainian) [facility]ative)No reason for referral information [...] Visit Admit Date Admitted to alcohol detoxification [facility] October 01, 2024 12:22am Chief Complaint [...] No August 05, 2022 4:09pm Power of Field [employer] Harvest Machine Operator No August 05 4:09pm Advance Directive Response Recorded Date/ Time Living Will No August 05, 2022 6:27pm Power of [employer] Harvest Machine Operator No August 05 6:27pm Advance Directive Response Recorded Date/ Time Living Will No March 22 10:56pm Power of [employer] Harvest Machine Operator No March 22, 2023 10:56pm Advance Directive Response Recorded Date/ Time Living Will No March 23 024 1:01am Power of [employer] Harvest Machine Operator No March 23, 2023 1:01am Advance Directive Response Recorded Date/ Time Living Will No May 01, 2023 5:10am Power of [employer] Harvest Machine Operator No April 30 5:10am Advance Directive Response Recorded Date/ Time Living Will No May 01, 2023 6:45am Power of [employer] Harvest Machine Operator No April 30 6:45am Advance Directive Response Recorded Date/ Time Living Will No June 19, 2023 11 :38pm Power of [employer] Harvest Machine Operator No June 19, 2023 11:38pm Advance Directive Response Recorded Date/ Time Do you have a Healthcare Power of [employer] Harvest Machine Operator? No October 01, 2024 1:52am Advance Directive Response Recorded Date/ Time Do you have a Healthcare Power of [employer] Harvest Machine Operator? No October 01, 2024 1:52am Do you have a Healthcare Power of [employer] Harvest Machine Operator? No October 02, 2024 4:09am Advance Directive Response Recorded Date/ Time Do you have a Healthcare Power of [employer] Harvest Machine Operator? No October 01, 2024 1:52am Do you have a Healthcare Power of [employer] Harvest Machine Operator? No October 02, 2024 4:09am Do you have a Healthcare Power of [employer] Harvest Machine Operator? No October 02, 2024 4:55am Date Activated [...] Do you have a Healthcare Power of [employer] Harvest Machine Operator? No October 01, 2024 1:52am Do you have a Healthcare Power of [employer] Harvest Machine Operator? No October 18, 2024 3:22pm Do you have a Healthcare Power of [employer] Harvest Machine Operator? No October 02, 2024 4:09am Do you have a Healthcare Power of [employer] Harvest Machine Operator? No October 02, 2024 4:55am Advance Directive Response Recorded Date/ Time Do you have a Healthcare Power of [employer] Harvest Machine Operator? No October 01, 2024 1:52am Do you have a Healthcare Power of [employer] Harvest Machine Operator? No October 18, 2024 3:22pm Do you have a Healthcare Power of [employer] Harvest Machine Operator? No October 02, 2024 4:09am Do you have a Healthcare Power of [employer] Harvest Machine Operator? No October 02, 2024 4:55am Do you have a Healthcare Power of [employer] Harvest Machine Operator? No October 18, 2024 4:33pm Advance Directive Response Recorded Date/ Time Do you have a Healthcare Power of [employer] Harvest Machine Operator? No October 01, 2024 1:52am Do you have a Healthcare Power of [employer] Harvest Machine Operator? No October 18, 2024 3:22pm Do you have a Healthcare Power of [employer] Harvest Machine Operator? No October 02, 2024 4:09am Do you have a Healthcare Power of [employer] Harvest Machine Operator? No October 02, 2024 4:55am Do you have a Healthcare Power of [employer] Harvest Machine Operator? No October 18, 2024 7:43pm Family History [...] Physician Primary Care Provider Active Dr. Carmelo Mcrcay DO Emergency Provider Active Team Status: Active [...] Provider Active Star t: October 02, 2024 Professor Of Historical Theology Relationship Specialty Start Date End Date No, Physician [facility] PCP - General 10/02/24 Professor Of Historical Theology Relationship Specialty Start Date End Date No, Physician [facility] PCP - General 10/02/24 Professor Of Historical Theology Relationship Specialty Start Date End Date No, Physician [facility] PCP - General 10/02/24 Professor Of Historical Theology Relationship Specialty Start Date End Date No, Physician [facility] PCP - General 10/02/24 Team Status: [...] section and content) DATE CREATED AUTHOR 06/28/2023 [facility] ([place]) DATE CREATED AUTHOR AUTHOR'S ORGANIZ ATION 08/02/2023 [facility] DATE CREATED AUTHOR AUTHOR'S ORGANIZ ATION 06/26/2024 [facility] DATE CREATED AUTHOR AUTHOR'S ORGANIZ ATION 10/01/2024 [facility] DATE CREATED AUTHOR AUTHOR'S ORGANIZ ATION 10/19/2024 [facility] DATE CREATED AUTHOR AUTHOR'S ORGANIZ ATION 10/21/[address] [facility] Reason for Visit (unrecogniz ed section and content) Reason Comments Jaw Pain Specialty Diagnoses / Procedures Referred By Contac t Referred To Contact Diagnoses Fracture of mandible of other specified site, initial encounter for open fracture (HCC) Referral ID Status Reason Start Date Expiration Date Visits Re quested Visits Authorized [id number] 1 1 Specialty Diagnoses / Procedures Referred By Bahman t Referred To Contact Diagnoses Trauma Referral ID Status Reason Start Date Expiration Date Visits Re quested Visits Authorized [id number] 1 1 Reason Comments URI Cough /Body [...] Expiration Date Visits Re quested Visits Authorized [id number] 1 1 Specialty Diagnoses / Procedures Referred By Bahman t Referred To Contact Diagnoses Trauma Closed fracture of mandible with routine healing, unspecified laterality, unspecified mandibular site, subsequent encounter Referral ID Status Reason Start Date Expiration Date Visits Re quested Visits Authorized [id number] 1 1 Scheduled Active and Recently Administ [...] (MAR Unhold - Provider: Transfer Provider, Automatic) ozqcscdf-zyz-wmuqakr gluconate liquid 15 mL 15 mL, Oral, [...] 225.9 mg = 3 mg/kg 75.3 kg [place] weight), Intramuscular, Every 3 hours, First dose [...] 301.2 mg = 4 mg/kg 75.3 kg [place] weight), Intramuscular, Once, On Sat10/02/24 at 1430, [...] (Automatically Held - Provider: Transfer Provider, Automatic)1120 ([facility] Unhold - Provider: Transfer Provider, Automatic) PHENobarbitaL tablet 32.4 mg(Linked Group 2) 32.4 mg, Oral, Every 24 hours, First dose on 10/05/24 at 2100, For 1 dose 0653 ([facility] Hold - Provider: Transfer Provider, Automatic - Reason: Patient not available)1120 ([facility] Unhold - Provider: Transfer Provider, [...] (Automatically Held - Provider: Transfer Provider, Automatic)1120 ([facility] Unhold - Provider: Transfer Provider, [...] (Automatically Held - Provider: Transfer Provider, Automatic)1120 ([facility] Unhold - Provider: Transfer Provider, [...] Provider, Automatic - Reason: Patient not available)1120 ([facility] Unhold - Provider: Transfer Provider, Automatic) Continuous [...] Provider: Priya Domínguez RN)1104 (Given - Provider: rPiya Domínguez, KATERYNA)1635 (Given - Provider: Priya Domínguez, [...] Provider, Automatic - Reason: Patient not available)1120 ([facility] Unhold - Provider: Transfer Provider, Automatic) naloxone (NARCAN) injection 0.4 mg(Linked Group 4) 0.4 mg, Intravenous, As needed, opioid reversal, patient is pulseless, breathless, and unresponsive, Starting on Sat10/02/24 at 1041, Call a code first, then administer naloxone dose undiluted IV Push over 30 seconds. 0653 ([facility] Hold - Provider: Transfer Provider, Automatic - Reason: Patient not available)1120 ([facility] Unhold - Provider: Transfer Provider, [...] (Given - Provider: Elo Campbell RN) 0653 ([facility] Hold - Provider: Transfer Provider, Automatic - Reason: Patient not available)1120 ([facility] Unhold - Provider: Transfer Provider, Automatic) ondansetron (ZOFRAN) injection 4 mg(Linked Group 5) 4 mg, Intravenous, Every 6 hours PRN, nausea, vomiting, Starting on Sat10/02/24 at 1239, [] Oral or IV - use oral route if tolerated. 0653 ([facility] Hold - Provider: Transfer Provider, Automatic - Reason: Patient not available)1120 ([facility] Unhold - Provider: Transfer Provider, [...] KATERYNA)0638 (Given - Provider: Fior Kelly RN)0653 ([facility] Hold - Provider: Transfer Provider, Automatic - Reason: Patient not available)1120 ([facility] Unhold - Provider: Transfer Provider, Automatic) PHENobarbital injection 65 mg 65 mg, Intramuscular, Every 6 hours PRN, Two of the following: SBP greater than 160 or DBP greater than 100, Significant agitation (RASS greater than +2), HR greater than 110, Diaphoresis, tremors, Hallucinations, Starting on Sat10/02/24 at 1343, For 102 hours, VESICANT 0653 ([facility] Hold - Provider: Transfer Provider, Automatic - Reason: Patient not available)1120 ([facility] Unhold - Provider: Transfer Provider, Automatic) sodium chloride (NS) 0.9 % irrigation solution (CANCELED) As needed, Starting on Sat10/04/24 at 0811, Intra-Procedure 0811 (Given - Provider: Marilou Vasquez MD - Comment: Given to sterile field) sodium chloride (PF) (NS) 0.9 % contrast line flush 10 mL(Linked Group 6) 10 mL, Intravenous, Once in imaging, contrast, Per manager clinical pharmacy (Radiology) for line patency check prior to contrast administration, Starting on Sat10/02/24 at 1035, For 1 dose 1415 (Canceled Entry - Provider: Elo Campbell RN) 0653 ([facility] Hold - Provider: Transfer Provider, Automatic - Reason: Patient not available)1120 ([facility] Unhold - Provider: Transfer Provider, Automatic) sodium chloride (PF) (NS) 0.9 % contrast line flush 80 mL (COMPLETED)(Linked Group 6) 80 mL, Intravenous, Once in imaging, contrast, Per manager clinical pharmacy (Radiology), Starting on Sat10/02/24 at 1035, For [...] 301.2 mg = 4 mg/kg 75.3 kg [place] weight), Intramuscular, Once, On Sat10/02/24 at 1430, [...] 225.9 mg = 3 mg/kg 75.3 kg [place] weight), Intramuscular, Every 3 hours, First dose [...] mL, Intravenous, Once in imaging, contrast, Per manager clinical pharmacy (Radiology) for line patency check prior to contrast administration, Starting on Sat10/02/24 at 1035, For 1 dose And sodium chloride (PF) (NS) 0.9 % contrast line flush 80 mL (COMPLETED)Jump to med 80 mL, Intravenous, Once in imaging, contrast, Per manager clinical pharmacy (Radiology), Starting on Sat10/02/24 at 1035, For [...] 135.54 mg = 1.8 mg/kg 75.3 kg [place] weight), Intramuscular, Every 3 hours, First dose [...] 180.72 mg = 2.4 mg/kg 75.3 kg [place] weight), Intramuscular, Once, On Sat10/04/24 at 2125, [...] if IV Push 2226 (Given - Provider: Jreemias Huff RN) 0835 (Given - Provider: Tabitha [...] 180.72 mg = 2.4 mg/kg 75.3 kg [place] weight), Intramuscular, Once, On Sat10/04/24 at 2124, [...] 135.54 mg = 1.8 mg/kg 75.3 kg [place] weight), Intramuscular, Every 3 hours, First dose [...] (Not Given - Provider: Kaitlyn A Molina, LAST SCOURER - Reason: Contraindicated)1247 (Given - Provider: Kaitlyn Vargas Molina, LAST SCOURER)1523 (Given - Provider: Kaitlyn Alicia Molina, LAST SCOURER)202 (Given - Provider: Ashtyn Hawkins LAST SCOURER) 0047 (Given - Provider: Ashtyn Morejonmbi, LAST SCOURER)0518 (Given - Provider: Ashtyn Hawkins LAST SCOURER)1004 (Given - Provider: Kaitlyn Francoiso, LAST SCOURER)1309 (Given - Provider: Kaitlyn Alicia Molina, LAST SCOURER)1600 (Not Given - Provider: Kaitlyn Alicia Molina, LAST SCOURER - Reason: Contraindicated) amoxicillin-clavulanate (AUGMENTIN) 875-125 mg per tablet 1 tablet 1 tablet, Oral, Every 12 hours scheduled, First dose on Sat10/09/24 at 2100, For 7 days, Indication: Skin/Soft Tissue Infection 2113 (Given - Provider: Lor Holm LPN) 0823 (Given - Provider: Kaitlyn Francoiso LAST SCOURER)202 (Given - Provider: Ashtyn Hawkins LPN) 1005 (Given - Provider: Kaitlyn Francoiso LAST SCOURER) chlorhexidine (PERIDEX) 0.12 % solution 15 mL 15 mL, Swab, 4 times daily, First dose on Sat10/08/24 at 0900, Do Not Swallow 1037 (Given - Provider: Jesus Barahona RN)1330 (Given - Provider: Jesus Barahona RN)1700 (Not Given - Provider: Jesus Barahona RN - Reason: Other)2108 (Given - Provider: Lor Holm LPN) 0823 (Given - Provider: Kaitlyn Francoiso, LAST SCOURER)1248 (Given - Provider: Kaitlyn Francoiso, LAST SCOURER)1700 (Given - Provider: Kaitlyn Alicia Francoiso, LAST SCOURER)2026 (Given - Provider: Ashtyn Hawkins LPN) 1005 (Given - Provider: Kaitlyn Francoiso, LAST SCOURER)1309 (Given - Provider: Kaitlyn Francoiso, LAST SCOURER)1700 (Given - Provider: Kaitlyn Francoiso LAST SCOURER) enoxaparin (LOVENOX) syringe 30 mg 30 mg, [...] 225.9 mg = 3 mg/kg 75.3 kg [place] weight), Oral, Every 3 hours, First dose [...] 225.9 mg = 3 mg/kg 75.3 kg [place] weight), Oral, Every 3 hours, First dose [...] 301.2 mg = 4 mg/kg 75.3 kg [place] weight), Oral, Once, On Sat10/09/24 at 0130, [...] 301.2 mg = 4 mg/kg 75.3 kg [place] weight), Oral, Once, On Sat10/09/24 at 0130, [...] 225.9 mg = 3 mg/kg 75.3 kg [place] weight), Oral, Every 3 hours, First dose [...] 225.9 mg = 3 mg/kg 75.3 kg [place] weight), Oral, Every 3 hours, First dose [...] - Reason: Transfer to a Procedural area)0924 ([facility] Hold - Provider: Transfer Provider, Automatic - Reason: Patient not available)1242 ([facility] Unhold - Provider: Transfer Provider, [...] Arnie Akins RN - Reason: Patient/family refused)0924 ([facility] Hold - Provider: Transfer Provider, Automatic - Reason: Patient not available)1242 ([facility] Unhold - Provider: Transfer Provider, Automatic) folic acid (FOLVITE) tablet 1 mg 1 mg, Oral, Daily, First dose on Sat10/13/24 at 1000 1213 (Given - Provider: Arnie Akins RN - Comment: pt unavailable) 0900 (Due)0924 ([facility] Hold - Provider: Transfer Provider, Automatic - Reason: Patient not available)1242 ([facility] Unhold - Provider: Transfer Provider, Automatic) multivitamin (THERAGRAN) per tablet 1 tablet 1 tablet, Oral, Daily, First dose on Sat10/13/24 at 1000 1213 (Given - Provider: Arnie Aikns RN - Comment: pt unavailable) 0900 (Due)0924 ([facility] Hold - Provider: Transfer Provider, Automatic - Reason: Patient not available)1242 ([facility] Unhold - Provider: Transfer Provider, [...] lozenge. DO NOT CRUSH OR CHEW. 923 ([facility] Hold - Provider: Transfer Provider, Automatic - Reason: Patient not available)124 ([facility] Unhold - Provider: Transfer Provider, Automatic) ondansetron (ZOFRAN) injection 4 mg(Linked Group 2) 4 mg, Intravenous, Every 6 hours PRN, nausea, vomiting, Starting on Sat10/12/24 at 2152, [] Oral or IV - use oral route if tolerated. 923 ([facility] Hold - Provider: Transfer Provider, Automatic - Reason: Patient not available)124 ([facility] Unhold - Provider: Transfer Provider, Automatic) ondansetron (ZOFRAN-ODT) disintegrating tablet 4 mg(Linked Group 2) 4 mg, Oral, Every 6 hours PRN, nausea, vomiting, Starting on Sat10/12/24 at 2152, [] Oral or IV - use oral route if tolerated. Formulation requires tablet remain in sealed package until immediately prior to dose being administered. 923 ([facility] Hold - Provider: Transfer Provider, Automatic - Reason: Patient not available)124 ([facility] Unhold - Provider: Transfer Provider, [...] BE BASED ON THE PRIMARY CLINICAL RECORDS. [facility] [employer], [facility]. provides no warranty or guarantee of the accuracy or completeness of information in this document.
[2024-10-22 00:58] LABS: Color, Urine Yellow (Yellow); Glucose, Dipstick Normal (Normal); Ketone-Dipstick Negative (Negative); Leukocyte Esterase-Dipstick Negative /ul (Negative); Mucous, Urine 0 SEEN /hpf (<or=2+); Nitrite-Dipstick Negative (Negative); Occult Blood-Urine Negative /ul (Negative); Protein-Dipstick 15 mg/dl (Negative); Specific Gravity, Urine 1.025 (1.002-1.030); Urine Bilirubin Dipstick Negative (Negative)
[2024-10-22 00:59] VITALS: BP 97/64; PULSE 78; RESP 16; TEMP 36.8; O2SAT 99
[2024-10-22 01:00] VITALS: BP 111/74; PULSE 75; RESP 14; O2SAT 98
[2024-10-22 01:11] LABS: Prothrombin Time (Protime)PT. 12.8 SECONDS (11.7-14.9)
[2024-10-22 01:14] LABS: Red Blood Cells-Urine 0-5 SEEN /hpf (0-5); Squamous Epithelial Cells - UA 0-5 SEEN /hpf (0-5)
[2024-10-22 01:33] VITALS: BMI 24.3
[2024-10-22 01:34] LABS: Magnesium 2.0 mg/dL (1.5-2.2)
[2024-10-22 01:36] VITALS: BP 98/57; PULSE 80; RESP 18; TEMP 36.7; O2SAT 98
--- OUTSIDE RECORDS SUMMARY | 2024-10-22 01:39 | XMS RPT_ITS | CCD ---
Author Organization [facility]iniSyky Care Team Providers Care Actuarial Assistant Name Role Phone Dr. Fior Ridley Emergency Provider Care Physician, No Primary Primary Care Provider Unavailable Dr. Ashley Hirsch Admit Provider Dr. Ashley Hirsch Attending Provider Dr. Ashley Hirsch Other Provider Dr. Carmelo Albert Attending Provider [phone] Carmelo Albert Other Provider Care Physician, No Primary Primary Care Provider Unavailable MD Daquan Reid Emergency Provider Dr. Stan Thomas Admit Provider Dr. Stan Thomas Attending Provider Dr. Stan Thomas Other Provider [phone] Care Physician, No Primary Primary Care Provider Unavailable MD Daquan Reid Emergency Provider Dr. Stan Thomas Admit Provider [phone] Stan Thomas Attending Provider [phone] Dr. 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 Active naloxone (NARCAN) 4 mg/actuation [place] (4 sources) Start: naloxone (NARCAN) 4 mg/actuation [place] Administer 1 spray into one nostril for known or suspected opioid overdose. If patient worsens or does not respond, may repeat in 2-3 minutes. . 2 each 1 10/09/2024 Active Start: 10-09-2024 naloxone (NARC AN) 4 mg/actuation [place] Administer 1 spray into one nostril for [...] VESICANT docusate sodium 50 mg / sennosides, fpc 8.6 mg oral tablet (4 sources) Start: [...] severe pain, Starting on Sat10/04/24 at 0046 iycipdnb-rwe-xonckc s gluconate liquid 15 mL (1 source) [...] For 102 hours, VESICANT polyethylene glycol 3350 92350 mg powder for oral solution (1 source) [...] mL, Intravenous, Once in imaging, contrast, Per circus train supervisor (Radiology) for line patency check prior to [...] Auto (Unsp spec) [#/Vol] 1.68 10*3/uL 0.83-4.[address] [facility] Absolute neutrophil countOrd ered By: Ingrid Reece on 10-19-2024 Neutrophils (Bld) [#/Vol] 3.5 10*3/uL 2.0-7.[address] [facility] Anion gap in Serum or Plasma Ordered By: Ingrid Reece on 10-19-2024 Anion gap [Moles/Vol] 11 mmol/L 5-15 [facility] Automated lymphocyte count a s percentage of total leukocytesOrdered By: Ingrid Reece on 10-19-2024 Lymphocytes/100 WBC Auto (Unsp spec) 28.1 % 19- [facility] BUN/creatinine ratioOrdered By: Ingrid Reece on 10-19-2024 Urea nitrogen/Creatinine [Mass ratio] 20.3 mg/mg High 10-[address] [facility] Basophil percentageOrdered B y: Ingrid Reece on 10-19-2024 Basophils/100 WBC (Bld) 1.3 % High 0-1 [facility] Bilirubin, totalOrdered By: Ingrid Reece on 10-19-2024 Bilirubin [Mass/Vol] 0.20 mg/dL 0.00-1.30 [facility] CBC W/Diff, Automatedon Absolute Lymph 1.68 X10 3/uL Normal 0.83-4.[address] [facility] Comment on above: Performed By: #### L 100.0100, L500.4050 ####[facility] [address] [place], [address] Absolute Neut 3.5 X10 3/uL Normal 2.0-7.[address] [facility] Comment on above: Performed By: #### L 100.0100, L500.4050 ####[facility] [address] [place], [address] Basophils/100 WBC (Bld) 1.3 % High 0-1 [facility] Comment on above: Performed By: #### L 100.0100, L500.4050 ####[facility] [address] [place], [address] Eosinophils/100 WBC (Bld) 2.7 % Normal 0-[address] [facility] Comment on above: Performed By: #### L 100.0100, L500.4050 ####[facility] [address] [place], [address] Erythrocyte distribution width (RBC) [Ratio] 11.9 % Normal 11.6-14.[address] [facility] Comment on above: Performed By: #### L 100.0100, L500.4050 ####[facility] [address] [place], [address] Hematocrit (Bld) [Volume fraction] 36.4 % Low 40-[address] [facility] Comment on above: Performed By: #### L 100.0100, L500.4050 ####[facility] [address] [place], [address] Hemoglobin (Bld) [Mass/Vol] 12.8 g/dL Low 13.0-16.[address] [facility] Comment on above: Performed By: #### L 100.0100, L500.4050 ####[facility] [address] [place], [address] IG% 0.500 Normal 0.0-0.[address] [facility] Comment on above: Result Comment: IG% - Immature Granulocytes (promyelocytes, myelocytes and metamyelocytes) > 1% indicates that a LEFT SHIFT is Present. Performed By: #### L 100.0100, L500.4050 ####[facility] [address] [place], [address] Lymphocytes/100 WBC (Bld) 28.1 % Normal 19-[address] [facility] Comment on above: Performed By: #### L 100.0100, L500.4050 ####[facility] [address] [place], [address] MCH (RBC) [Entitic mass] 34.0 pg High 27.0-32.[address] [facility] Comment on above: Performed By: #### L 100.0100, L500.4050 ####[facility] [address] [place], [address] MCHC (RBC) [Mass/Vol] 35.2 g/dL Normal 32-36 [facility] Comment on above: Performed By: #### L 100.0100, L500.4050 ####[facility] [address] [place], [address] MCV (RBC) [Entitic vol] 96.6 fL High 80-94 [facility] Comment on above: Performed By: #### L 100.0100, L500.4050 ####[facility] [address] [place], [address] Monocytes/100 WBC (Bld) 9.2 % Normal 0-10 [facility] Comment on above: Performed By: #### L 100.0100, L500.4050 ####[facility] [address] [place], [address] Neutrophils/100 WBC (Bld) 58.2 % Normal 47-[address] [facility] Comment on above: Performed By: #### L 100.0100, L500.4050 ####[facility] [address] [place], [address] Nucleated RBC (Bld) [#/Vol] 0 10*3/uL Normal 0-[address] [facility] Comment on above: Performed By: #### L 100.0100, L500.4050 ####[facility] [address] [place], [address] Platelet mean volume (Bld) [Entitic vol] 9.1 fL Normal 6.2-12.[address] [facility] Comment on above: Performed By: #### L 100.0100, L500.4050 ####[facility] [address] [place], [address] Platelets (Bld) [#/Vol] 424 10*3/uL Normal 150-[address] [facility] Comment on above: Performed By: #### L 100.0100, L500.4050 ####[facility] [address] [place], [address] RBC (Bld) [#/Vol] 3.77 10*6/uL Low 4.6-6.2 [facility] Comment on above: Performed By: #### L 100.0100, L500.4050 ####[facility] [address] [place], [address] RDW SD 41.5 fl Normal 35.1-43.[address] [facility] Comment on above: Performed By: #### L 100.0100, L500.4050 ####[facility] [address] [place], [address] WBC (Bld) [#/Vol] 6.0 10*3/uL Normal 4.4-11.0 [facility] Comment on above: Performed By: #### L 100.0100, L500.4050 ####[facility] [address] [place], [address] Carbon dioxide, total [Moles /volume] in Central venous bloodOrdered By: Ingrid Reece on 10-19-2024 CO2 [Moles/Vol] 23.5 mmol/L 21.0-32.[address] [facility] Chloride assayOrdered By: Katheryn Reece on 10-19-2024 Chloride [Moles/Vol] 104 mmol/L 98-108 [facility] Comprehensive Metabolic Prof ilon 10-19-2024 Albumin [Mass/Vol] 3.4 g/dL Low 3.5-5.0 [facility] Comment on above: Performed By: #### L 100.0100, L500.4050 ####[facility] [address] [place], [address] Albumin/Globulin [Mass ratio] 1.3 {ratio} Normal 0.9-2.[address] [facility] Comment on above: Performed By: #### L 100.0100, L500.4050 ####[facility] [address] [place], [address] ALK PHOS 101 U/L Normal 40-[address] [facility] Comment on above: Performed By: #### L 100.0100, L500.4050 ####[facility] [address] [place], [address] ALT [Catalytic activity/Vol] 13 U/L Normal <=[address] [facility] Comment on above: Performed By: #### L 100.0100, L500.4050 ####[facility] [address] [place], [address] AST [Catalytic activity/Vol] 19 U/L Normal <=[address] [facility] Comment on above: Performed By: #### L 100.0100, L500.4050 ####[facility] [address] [place], [address] Bilirubin [Mass/Vol] 0.20 mg/dL Normal 0.00-1.30 [facility] Comment on above: Performed By: #### L 100.0100, L500.4050 ####[facility] [address] [place], [address] BUN/CRE 20.3 RATIO High 10-[address] [facility] Comment on above: Performed By: #### L 100.0100, L500.4050 ####[facility] [address] [place], [address] Calcium [Mass/Vol] 8.5 mg/dL Normal 7.6-11.0 [facility] Comment on above: Performed By: #### L 100.0100, L500.4050 ####[facility] [address] [place], [address] Chloride [Moles/Vol] 104 mmol/L Normal 98-108 [facility] Comment on above: Performed By: #### L 100.0100, L500.4050 ####[facility] [address] [place], [address] CO2 [Moles/Vol] 23.5 mmol/L Normal 21.0-32.[address] [facility] Comment on above: Performed By: #### L 100.0100, L500.4050 ####[facility] [address] [place], [address] Creatinine [Mass/Vol] 0.61 mg/dL Low 0.70-1.20 [facility] Comment on above: Performed By: #### L 100.0100, L500.4050 ####[facility] [address] [place], [address] ECRCL 193.74 ml/min Normal 50-[address] [facility] Comment on above: Performed By: #### L 100.0100, L500.4050 ####[facility] [address] [place], [address] GAP 11 Normal 5-[address] [facility] Comment on above: Performed By: #### L 100.0100, L500.4050 ####[facility] [address] [place], [address] GFR/1.73 sq M.predicted among non-blacks MDRD (S/P/Bld) [Vol rate/Area] 135 mL/min/{1.73_m2} Normal >[address] [facility] Comment on above: Result Comment: mL/m in/1.73m2 CKD-EPI Creatinine Equation (2020) Performed By: #### L 100.0100, L500.4050 ####[facility] [address] [place], [address] Globulin (S) [Mass/Vol] 2.6 g/dL Normal 2.2-4.2 [facility] Comment on above: Performed By: #### L 100.0100, L500.4050 ####[facility] [address] [place], [address] Glucose [Mass/Vol] 174 mg/dL High 70-99 [facility] Comment on above: Performed By: #### L 100.0100, L500.4050 ####[facility] [address] [place], [address] Potassium [Moles/Vol] 3.6 mmol/L Normal 3.3-5.1 [facility] Comment on above: Performed By: #### L 100.0100, L500.4050 ####[facility] [address] [place], [address] Sodium [Moles/Vol] 138 mmol/L Normal 133-145 [facility] Comment on above: Performed By: #### L 100.0100, L500.4050 ####[facility] [address] [place], [address] T PROT 5.9 g/dL Normal 5.9-8.[address] [facility] Comment on above: Performed By: #### L 100.0100, L500.4050 ####[facility] [address] [place], [address] Urea nitrogen [Mass/Vol] 12 mg/dL Normal 4-[address] [facility] Comment on above: Performed By: #### L 100.0100, L500.4050 ####[facility] [address] [place], [address] Electrocardiogram reportOrde red By: Rafael Brooks on 10-19-2024 EKG study [facility] Cardiovascular Services [address] [place] [address] 12 Lead EKG 10/18/24 1645 MR#: [id number] Acct: [id number] Name: KADE GONZALEZ Rep #:[id number] : 1995 28 From: Rafael beavers MD Attending Dr: Dr. Pratik Carter MD Status: ADM IN Ordering Dr: Bairon Dee DO Date: 0 10/18/24 Location: MO3 Sex: M C Admitted: 10/18/24 Test Reason : DETOX Blood Pressure : */* mmHG Vent. Rate : 94 BPM Atrial Rate : 94 BPM P-R Int : 122 ms QRS Dur : 84 ms QT Int : 350 ms P-R-T Axes : 61 73 19 degrees QTcB Int : 437 ms Normal sinus rhythm Normal ECG Confirmed by Rafael Brooks ([id number]), sports editor KELSEY BISHOP ([id number]) on 10/19/2024 9:52:49 AM Referred By: Confirmed By: Rafael Brooks 10/19/24 0952 Date _ Rafael Brooks MD CC: Dr. Pratik Carter MD; Dr. Bairon Dee DO; No Primary Care Physician ~ Signed [facility] Other Phone: Eosinophil percentageOrdered By: Ingrid Reece on 10-19-2024 Eosinophils/100 WBC (Bld) 2.7 % 0-[address] [facility] Erythrocyte distribution wid th ratioOrdered By: Ingrid Reece on 10-19-2024 Erythrocyte distribution width (RBC) [Ratio] 11.9 % 11.6-14.[address] [facility] Erythrocyte distribution wid th standard deviationOrdered By: Ingrid Reece on 10-19-2024 Erythrocyte distribution width (RBC) [Ratio] 41.5 fl 35.1-43.[address] [facility] Glomerular filtration rate ( GFR) estimation/1.73 sq m using serum, plasma, or whole bOrdered By: Ingrid Reece on 10-19-2024 GFR/1.73 sq M.predicted among non-blacks MDRD (S/P/Bld) [Vol rate/Area] 135 mL/min/{1.73_m2} >[address] [facility] Comment on above: mL/min/1.73m2 CKD-EP I Creatinine Equation (2020) Hematocrit Auto (Bld) [Volum e fraction]Ordered By: Ingrid Reece on 10-19-2024 Hematocrit (Bld) [Volume fraction] 36.4 % Low 40-[address] [facility] Hemoglobin measurementOrdere d By: Ingrid Reece on 10-19-2024 Hemoglobin (Bld) [Mass/Vol] 12.8 g/dL Low 13.0-16.[address] [facility] Immature granulocytes/100 WB C Auto (Bld)Ordered By: Ingrid Reece on 10-19-2024 Immature granulocytes/100 WBC (Bld) 0.500 % 0.0-0.[address] [facility] Comment on above: IG% - Immature Granu locytes (promyelocytes, myelocytes and metamyelocytes) > 1% indicates that a LEFT SHIFT is Present. Laboratory - Chemistry and C hemistry - challengeOrdered By: Ingrid Reece on 10-19-2024 AST [Catalytic activity/Vol] 19 U/L <[address] [facility] MCV (mean corpuscular volume ) determinationOrdered By: Ingrid Reece on 10-19-2024 MCV (RBC) [Entitic vol] 96.6 fL High 80-94 [facility] Mean corpuscular hemoglobin (MCH) determinationOrdered By: Ingrid Reece on 10-19-2024 MCH (RBC) [Entitic mass] 34.0 pg High 27.0-32.[address] [facility] Mean corpuscular hemoglobin concentration (MCHC) determinationOrdered By: Ingrid Reece on 10-19-2024 MCHC (RBC) [Mass/Vol] 35.2 g/dL 32-36 [facility] Mean platelet volume determi nationOrdered By: Ingrid Reece on 10-19-2024 Platelet mean volume (Bld) [Entitic vol] 9.1 fL 6.2-12.[address] [facility] Monocyte percentageOrdered B y: Ingrid Reece on 10-19-2024 Monocytes/100 WBC (Bld) 9.2 % 0-10 [facility] Neutrophil percentageOrdered By: Ingrid Reece on 10-19-2024 Neutrophils/100 WBC (Bld) 58.2 % 47-[address] [facility] Nucleated red blood cell per centageOrdered By: Ingrid Reece on 10-19-2024 Nucleated RBC/100 WBC (Bld) [Ratio] 0 % 0-[address] [facility] Platelet countOrdered By: Katheryn Reece on 10-19-2024 Platelets (Bld) [#/Vol] 424 10*3/uL 150-[address] [facility] Potassium measurement (mass/ volume)Ordered By: Ingrid Reece on 10-19-2024 Potassium (Unsp spec) [Mass/Vol] 3.6 mmol/L 3.3-5.[address] [facility] RBC Auto (Bld) [#/Vol]Ordere d By: Ingrid Reece on 10-19-2024 RBC (Bld) [#/Vol] 3.77 10*6/uL Low 4.6-6.2 [facility] Serum creatinine measurement (mass/volume)Ordered By: Ingrid Reece on 10-19-2024 Creatinine [Mass/Vol] 0.61 mg/dL Low 0.70-1.20 [facility] Serum globulin measurementOr dered By: Ingrid Reece on 10-19-2024 Globulin (S) [Mass/Vol] 2.6 g/dL 2.2-4.2 [facility] Serum glucose measurement (m ass/volume)Ordered By: Ingrid Reece on 10-19-2024 Glucose [Mass/Vol] 174 mg/dL High 70-99 [facility] Serum or plasma alanine saldaña otransferase (ALT) measurementOrdered By: Ingrid Reece on 10-19-2024 ALT [Catalytic activity/Vol] 13 U/L <[address] [facility] Serum or plasma albumin gaetano urement (mass/volume)Ordered By: Ingrid Reece on 10-19-2024 Albumin [Mass/Vol] 3.4 g/dL Low 3.5-5.0 [facility] Serum or plasma albumin/glob ulin mass ratioOrdered By: Ingrid Reece on 10-19-2024 Albumin/Globulin [Mass ratio] 1.3 {ratio} 0.9-2.[address] [facility] Serum or plasma alkaline fareed sphatase measurementOrdered By: Ingrid Reece on 10-19-2024 ALP [Catalytic activity/Vol] 101 U/L 40-[address] [facility] Serum or plasma calcium gaetano urement (mass/volume)Ordered By: Ingrid Reece on 10-19-2024 Calcium [Mass/Vol] 8.5 mg/dL 7.6-11.0 [facility] Serum or plasma urea nitroge n measurement (mass/volume)Ordered By: Ingrid Reece on 10-19-2024 Urea nitrogen [Mass/Vol] 12 mg/dL 4-[address] [facility] Sodium levelOrdered By: Hu Reece on 10-19-2024 Sodium [Moles/Vol] 138 mmol/L 133-145 [facility] Total proteinOrdered By: Deepika Reece on 10-19-2024 Protein [Mass/Vol] 5.9 g/dL 5.9-8.4 [facility] White blood cell (WBC) count Ordered By: Ingrid Reece on 10-19-2024 WBC (Bld) [#/Vol] 6.0 10*3/uL 4.4-11.0 [facility] 12 Lead EKGon 10-18-2024 12 Lead EKG [facility] Cardiovascular Services [address] [place] [address] 12 Lead EKG 10/18/24 1645 MR#: [id number] Acct: [id number] Name: KADE GONZALEZ Rep #: [id number] : 1995 28 From: Rafael Brooks [...] rhythm Normal ECG Confirmed by Rafael Brooks ([id number]), sports editor KELSEY BISHOP ([id number]) on 10/19/2024 9:52:49 AM Referred By: Confirmed By: Rafael Brooks 10/19/24 0952 Date Rafael Brooks MD CC: Dr. Pratik Carter MD; Dr. Bairon Dee DO; No Primary Care Physician Signed Normal [facility] ACETAMINOPHEN LEVELon 2024 ACETAMINOPHEN < Normal 0.0-30.0 [facility] Comment on above: Order Comment: Thera peutic Range: 10-30 mcg/mLPotentially Toxic: >200 mcg/mL (4 hours post dose) >100 mcg/mL (8 hours post dose) >50 mcg/mL (12 hours post dose) Performed By: #### 4 5033 #### [facility] [address] [place], [place] [address] Travis Christensen M.D. [id number] ALCOHOL, [facility] ALCOHOL MEDICAL 315.0 mg/dL High <10.0 [facility] Comment on above: Performed By: #### 4 5866 #### [facility] [address] [place], [place] [address] Travis Christensen M.D. [id number] Absolute lymphocyte countOrd ered By: Bairon Dee on 10-18-2024 Lymphocytes Auto (Unsp spec) [#/Vol] 1.14 10*3/uL 0.83-4.[address] [facility] Absolute neutrophil countOrd ered By: Bairon Dee on 10-18-2024 Neutrophils (Bld) [#/Vol] 8.5 10*3/uL High 2.0-7.[address] [facility] Alcohol, Blood (Medical)-Ser umon 10-18-2024 SERUM ETOH < 10.1 Normal <=10.[address] [facility] Comment on above: Result Comment: This test is for medical purposes only. The legal definition of intoxication varies according to local law. Performed By: #### L 505.5000, L100.0100, L500.2500, L501.9100 ####[facility] [address] [place], [address] Amphetamine detection with 1 000 ng/mL as cutoffOrdered By: Bairon Dee on 10-18-2024 Amphetamines Screen method >1000 ng/mL Ql (U) Positive < 200 ng/mL [facility] Comment on above: If confirmation test ing is needed, a separate order will be required to send out testing to the reference laboratory. Anion gap in Serum or Plasma Ordered By: Bairon Dee on 10-18-2024 Anion gap [Moles/Vol] 17 mmol/L High 5-15 [facility] Automated lymphocyte count a s percentage of total leukocytesOrdered By: Bairon Dee on 10-18-2024 Lymphocytes/100 WBC Auto (Unsp spec) 11.1 % Low 19-[address] [facility] BASIC METABOLIC PANELon 09-0 Anion gap [Moles/Vol] 17 mmol/L Normal 10-20 [facility] Comment on above: Order Comment: [facility] Laboratory Services has implemented the eGFR calculation approach that does not have a coefficient for race that conforms to the NKF-ASN Task Force Recommendations. Performed By: #### 4 4014 #### [facility] [address] [place] [address] Pratik Dukes M.D. [id number] Calcium [Mass/Vol] 8.9 mg/dL Normal 8.4-10.2 [facility] Comment on above: Order Comment: [facility] Laboratory Services has implemented the eGFR calculation approach that does not have a coefficient for race that conforms to the NKF-ASN Task Force Recommendations. Performed By: #### 4 4014 #### [facility] [address] [place] [address] Pratik Dukes M.D. [id number] Chloride [Moles/Vol] 106 mmol/L Normal 98-108 [facility] Comment on above: Order Comment: [facility] Laboratory Services has implemented the eGFR calculation approach that does not have a coefficient for race that conforms to the NKF-ASN Task Force Recommendations. Performed By: #### 4 4014 #### [facility] [address] [place] [address] Pratik Dukes M.D. [id number] Creatinine [Mass/Vol] 0.64 mg/dL Normal 0.50-1.30 [facility] Comment on above: Order Comment: [facility] Laboratory Services has implemented the eGFR calculation approach that does not have a coefficient for race that conforms to the NKF-ASN Task Force Recommendations. Performed By: #### 4 4014 #### [facility] [address] [place] [address] Pratik Dukes M.D. [id number] EGFR 133 mL/min/1.73 m2 Normal >=60 [facility] Comment on above: Order Comment: [facility] Laboratory Services has implemented the eGFR calculation approach that does not have a coefficient for race that conforms to the NKF-ASN Task Force Recommendations. Result Comment: Luzma mated GFR was calculated using the 2020 CKD-EPI creatinine equation. Performed By: #### 4 4014 #### [address] [address] Pratik Dukes M.D. [id number] Glucose [Mass/Vol] 86 mg/dL Normal 65-99 [facility] Comment on above: Order Comment: [facility] has implemented the eGFR calculation approach that does not have a coefficient for race that conforms to the NKF-ASN Task Force Recommendations. Performed By: #### 4 4014 #### [facility] [address] [place] [address] Pratik Dukes M.D. [id number] HCO3 (Bld) [Moles/Vol] 23 mmol/L Normal 21-32 [facility] Comment on above: Order Comment: [facility] has implemented the eGFR calculation approach that does not have a coefficient for race that conforms to the NKF-ASN Task Force Recommendations. Performed By: #### 4 4014 #### [facility] [address] [place], [place] [id number] Pratik Dukes M.D. [id number] Potassium [Moles/Vol] 4.4 mmol/L Normal 3.5-5.1 [facility] Comment on above: Order Comment: [facility] has implemented the eGFR calculation approach that does not have a coefficient for race that conforms to the NKF-ASN Task Force Recommendations. Performed By: #### 4 4014 #### [facility] [address] [place] [address] Pratik Dukes M.D. [id number] Sodium [Moles/Vol] 142 mmol/L Normal 135-145 [facility] Comment on above: Order Comment: [facility] has implemented the eGFR calculation approach that does not have a coefficient for race that conforms to the NKF-ASN Task Force Recommendations. Performed By: #### 4 4014 #### [facility] [address] [place] [address] Pratik Dukes M.D. [id number] Urea nitrogen [Mass/Vol] 5 mg/dL Low 8-25 [facility] Comment on above: Order Comment: [facility] has implemented the eGFR calculation approach that does not have a coefficient for race that conforms to the NKF-ASN Task Force Recommendations. Performed By: #### 4 4014 #### [facility] [address] [place] [address] Pratik Dukes M.D. [id number] Urea nitrogen/Creatinine [Mass ratio] 7.8 mg/mg Low 10.0-20.0 [facility] Comment on above: Order Comment: [facility] has implemented the eGFR calculation approach that does not have a coefficient for race that conforms to the NKF-ASN Task Force Recommendations. Performed By: #### 4 4014 #### [facility] [address] [place] [address] Pratik Dukes M.D. [id number] BUN/creatinine ratioOrdered By: Bairon Dee on 10-18-2024 Urea nitrogen/Creatinine [Mass ratio] 13.3 mg/mg - [facility] Basic Metabolic Profile (BMP )on 10-18-2024 BUN/CRE 13.3 RATIO Normal - [facility] Comment on above: Performed By: #### L 505.5000, L100.0100, L500.2500, L501.9100 ####[facility] [address] [place], [address] Calcium [Mass/Vol] 9.1 mg/dL Normal 7.6-11.0 [facility] Comment on above: Performed By: #### L 505.5000, L100.0100, L500.2500, L501.9100 ####[facility] [address] [place], [address] Chloride [Moles/Vol] 101 mmol/L Normal 98-108 [facility] Comment on above: Performed By: #### L 505.5000, L100.0100, L500.2500, L501.9100 ####[facility] [address] [place], [address] CO2 [Moles/Vol] 19.8 mmol/L Low 21.0-32.[address] [facility] Comment on above: Performed By: #### L 505.5000, L100.0100, L500.2500, L501.9100 ####[facility] [address] [place], [address] Creatinine [Mass/Vol] 0.66 mg/dL Low 0.70-1.20 [facility] Comment on above: Performed By: #### L 505.5000, L100.0100, L500.2500, L501.9100 ####[facility] [address] [place], [address] ECRCL 179.06 ml/min Normal 50-[address] [facility] Comment on above: Performed By: #### L 505.5000, L100.0100, L500.2500, L501.9100 ####[facility] [address] [place], [address] GAP 17 High 5-[address] [facility] Comment on above: Performed By: #### L 505.5000, L100.0100, L500.2500, L501.9100 ####[facility] [address] [place], [address] GFR/1.73 sq M.predicted among non-blacks MDRD (S/P/Bld) [Vol rate/Area] 132 mL/min/{1.73_m2} Normal >[address] [facility] Comment on above: Result Comment: mL/m in/1.73m2 CKD-EPI Creatinine Equation (2020) Performed By: #### L 505.5000, L100.0100, L500.2500, L501.9100 ####[facility] [address] [place], [address] Glucose [Mass/Vol] 70 mg/dL Normal 70-99 [facility] Comment on above: Performed By: #### L 505.5000, L100.0100, L500.2500, L501.9100 ####[facility] [address] [place], [address] Potassium [Moles/Vol] 4.7 mmol/L Normal 3.3-5.1 [facility] Comment on above: Result Comment: Hemo lysis present, Results??could be affected. ?? Performed By: #### L 505.5000, L100.0100, L500.2500, L501.9100 ####[facility] [address] [place], [address] Sodium [Moles/Vol] 138 mmol/L Normal 133-145 [facility] Comment on above: Performed By: #### L 505.5000, L100.0100, L500.2500, L501.9100 ####[facility] [address] [place], [address] Urea nitrogen [Mass/Vol] 9 mg/dL Normal 4-[address] [facility] Comment on above: Performed By: #### L 505.5000, L100.0100, L500.2500, L501.9100 ####[facility] [address] [place], [address] BUN Normal 4-[address] [facility] Comment on above: Result Comment: DUPL ICATE Performed By: #### L 505.5000, L500.2500, L100.0100 #### [facility] [address] [place], [address] BUN/CRE Normal 10-[address] [facility] Comment on above: Result Comment: DUPL ICATE Performed By: #### L 505.5000, L500.2500, L100.0100 #### [facility] [address] [place], [address] Calcium Normal 7.6-11.[address] [facility] Comment on above: Result Comment: DUPL ICATE Performed By: #### L 505.5000, L500.2500, L100.0100 #### [facility] [address] [place], [address] CL Normal 98-[address] [facility] Comment on above: Result Comment: DUPL ICATE Performed By: #### L 505.5000, L500.2500, L100.0100 #### [facility] [address] [place], [address] CO2 Normal 21.0-32.[address] [facility] Comment on above: Result Comment: DUPL ICATE Performed By: #### L 505.5000, L500.2500, L100.0100 #### [facility] [address] [place], [address] CREAT,SERUM Normal 0.70-1.[address] [facility] Comment on above: Result Comment: DUPL ICATE Performed By: #### L 505.5000, L500.2500, L100.0100 #### [facility] [address] [place], [address] eGFR Normal >[address] [facility] Comment on above: Result Comment: DUPL ICATE Performed By: #### L 505.5000, L500.2500, L100.0100 #### [facility] [address] [place], [address] GAP Normal 5-[address] [facility] Comment on above: Result Comment: DUPL ICATE Performed By: #### L 505.5000, L500.2500, L100.0100 #### [facility] [address] [place], [address] GLU Normal 70-[address] [facility] Comment on above: Result Comment: DUPL ICATE Performed By: #### L 505.5000, L500.2500, L100.0100 #### [facility] [address] [place], [address] Potassium Normal 3.3-5.[address] [facility] Comment on above: Result Comment: DUPL ICATE Performed By: #### L 505.5000, L500.2500, L100.0100 #### [facility] [address] [place], [address] Basic Metabolic Profile (BMP) Normal 133-[address] [facility] Comment on above: Result Comment: DUPL ICATE Performed By: #### L 505.5000, L500.2500, L100.0100 #### [facility] [address] [place], [address] Basophil percentageOrdered B y: Bairon Dee on 10-18-2024 Basophils/100 WBC (Bld) 1.1 % High 0-1 [facility] Bilirubin Test strip Ql (U)O rdered By: Ingrid Reece on 10-18-2024 Bilirubin Ql (U) Negative Negative [facility] Bilirubin directOrdered By: Ingrid Reece on 10-18-2024 Bilirubin.direct [Mass/Vol] 0.32 mg/dL High 0.00-0.[address] [facility] CBC W/Diff, Automatedon Absolute Lymph 1.14 X10 3/uL Normal 0.83-4.[address] [facility] Comment on above: Performed By: #### L 505.5000, L100.0100, L500.2500, L501.9100 ####[facility] [address] [place], [address] Absolute Neut 8.5 X10 3/uL High 2.0-7.[address] [facility] Comment on above: Performed By: #### L 505.5000, L100.0100, L500.2500, L501.9100 ####[facility] [address] [place], [address] Basophils/100 WBC (Bld) 1.1 % High 0-1 [facility] Comment on above: Performed By: #### L 505.5000, L100.0100, L500.2500, L501.9100 ####[facility] [address] [place], [address] Eosinophils/100 WBC (Bld) 0.5 % Normal 0-[address] [facility] Comment on above: Performed By: #### L 505.5000, L100.0100, L500.2500, L501.9100 ####[facility] [address] [place], [address] Erythrocyte distribution width (RBC) [Ratio] 12.2 % Normal 11.6-14.[address] [facility] Comment on above: Performed By: #### L 505.5000, L100.0100, L500.2500, L501.9100 ####[facility] [address] [place], [address] Hematocrit (Bld) [Volume fraction] 42.0 % Normal 40-[address] [facility] Comment on above: Performed By: #### L 505.5000, L100.0100, L500.2500, L501.9100 ####[facility] [address] [place], [address] Hemoglobin (Bld) [Mass/Vol] 14.8 g/dL Normal 13.0-16.[address] [facility] Comment on above: Performed By: #### L 505.5000, L100.0100, L500.2500, L501.9100 ####[facility] [address] [place], [address] IG% 0.400 Normal 0.0-0.[address] [facility] Comment on above: Result Comment: IG% - Immature Granulocytes (promyelocytes, myelocytes and metamyelocytes) > 1% indicates that a LEFT SHIFT is Present. Performed By: #### L 505.5000, L100.0100, L500.2500, L501.9100 ####[facility] [address] [place], [address] Lymphocytes/100 WBC (Bld) 11.1 % Low 19-[address] [facility] Comment on above: Performed By: #### L 505.5000, L100.0100, L500.2500, L501.9100 ####[facility] [address] [place], [address] MCH (RBC) [Entitic mass] 34.0 pg High 27.0-32.[address] [facility] Comment on above: Performed By: #### L 505.5000, L100.0100, L500.2500, L501.9100 ####[facility] [address] [place], [address] MCHC (RBC) [Mass/Vol] 35.2 g/dL Normal 32-36 [facility] Comment on above: Performed By: #### L 505.5000, L100.0100, L500.2500, L501.9100 ####[facility] [address] [place], [address] MCV (RBC) [Entitic vol] 96.6 fL High 80-94 [facility] Comment on above: Performed By: #### L 505.5000, L100.0100, L500.2500, L501.9100 ####[facility] [address] [place], [address] Monocytes/100 WBC (Bld) 5.0 % Normal 0-10 [facility] Comment on above: Performed By: #### L 505.5000, L100.0100, L500.2500, L501.9100 ####[facility] [address] [place], [address] Neutrophils/100 WBC (Bld) 81.9 % High 47-[address] [facility] Comment on above: Performed By: #### L 505.5000, L100.0100, L500.2500, L501.9100 ####[facility] [address] [place], [address] Nucleated RBC (Bld) [#/Vol] 0 10*3/uL Normal 0-[address] [facility] Comment on above: Performed By: #### L 505.5000, L100.0100, L500.2500, L501.9100 ####[facility] [address] [place], [address] Platelet mean volume (Bld) [Entitic vol] 8.9 fL Normal 6.2-12.[address] [facility] Comment on above: Performed By: #### L 505.5000, L100.0100, L500.2500, L501.9100 ####[facility] [address] [place], [address] Platelets (Bld) [#/Vol] 536 10*3/uL High 150-[address] [facility] Comment on above: Performed By: #### L 505.5000, L100.0100, L500.2500, L501.9100 ####[facility] [address] [place], [address] RBC (Bld) [#/Vol] 4.35 10*6/uL Low 4.6-6.2 [facility] Comment on above: Performed By: #### L 505.5000, L100.0100, L500.2500, L501.9100 ####[facility] [address] [place], [address] RDW SD 42.9 fl Normal 35.1-43.[address] [facility] Comment on above: Performed By: #### L 505.5000, L100.0100, L500.2500, L501.9100 ####[facility] [address] [place], [address] WBC (Bld) [#/Vol] 10.3 10*3/uL Normal 4.4-11.0 [facility] Comment on above: Performed By: #### L 505.5000, L100.0100, L500.2500, L501.9100 ####[facility] [address] [place], [address] Absolute Neut Normal 2.0-7.[address] [facility] Comment on above: Result Comment: ORDE RED TWICE AT THE SAME TIME SEE 0907:[id number] Performed By: #### L 505.5000, L500.2500, L100.0100 #### [facility] [address] [place], [address] HCT Normal 40-[address] [facility] Comment on above: Result Comment: ORDE RED TWICE AT THE SAME TIME SEE 0907:[id number] Performed By: #### L 505.5000, L500.2500, L100.0100 #### [facility] [address] [place], [address] HGB Normal 13.0-16.[address] [facility] Comment on above: Result Comment: ORDE RED TWICE AT THE SAME TIME SEE 0907:[id number] Performed By: #### L 505.5000, L500.2500, L100.0100 #### [facility] [address] [place], [address] MCH Normal 27.0-32.[address] [facility] Comment on above: Result Comment: ORDE RED TWICE AT THE SAME TIME SEE 0907:[id number] Performed By: #### L 505.5000, L500.2500, L100.0100 #### [facility] [address] [place], [address] MCHC Normal 32-[address] [facility] Comment on above: Result Comment: ORDE RED TWICE AT THE SAME TIME SEE 906:[id number] Performed By: #### L 505.5000, L500.2500, L100.0100 #### [facility] [address] [place], [address] MCV Normal 80-[address] [facility] Comment on above: Result Comment: ORDE RED TWICE AT THE SAME TIME SEE 906:[id number] Performed By: #### L 505.5000, L500.2500, L100.0100 #### [facility] [address] [place], [address] NEUT% Normal 47-[address] [facility] Comment on above: Result Comment: ORDE RED TWICE AT THE SAME TIME SEE 0907:[id number] Performed By: #### L 505.5000, L500.2500, L100.0100 #### [facility] [address] [place], [address] PLT Normal 150-[address] [facility] Comment on above: Result Comment: ORDE RED TWICE AT THE SAME TIME SEE 0907:[id number] Performed By: #### L 505.5000, L500.2500, L100.0100 #### [facility] [address] [place], [address] RBC Normal 4.6-6.[address] [facility] Comment on above: Result Comment: ORDE RED TWICE AT THE SAME TIME SEE 0907:[id number] Performed By: #### L 505.5000, L500.2500, L100.0100 #### [facility] [address] [place], [address] RDW CV Normal 11.6-14.[address] [facility] Comment on above: Result Comment: ORDE RED TWICE AT THE SAME TIME SEE 07:[id number] Performed By: #### L 505.5000, L500.2500, L100.0100 #### [facility] [address] [place], [address] RDW SD Normal 35.1-43.[address] [facility] Comment on above: Result Comment: ORDE RED TWICE AT THE SAME TIME SEE 0907:[id number] Performed By: #### L 505.5000, L500.2500, L100.0100 #### [facility] [address] [place], [address] WBC Normal 4.4-11.[address] [facility] Comment on above: Result Comment: ORDE RED TWICE AT THE SAME TIME SEE 906:[id number] Performed By: #### L 505.5000, L500.2500, L100.0100 #### [facility] [address] [place], [address] CBC WITH AUTO DIFFERENTIALon 10-18-2024 AUTO NRBC 0.0 % Normal [facility] Comment on above: Performed By: #### L [id number] #### [facility] [address] [place], [place] [address] Travis Christensen M.D. [id number] AUTO NRBC ABS COUNT 0.00 K/mcL Normal 0.00-0.00 [facility] Comment on above: Performed By: #### L [id number] #### [facility] [address] [address] Travis Christensen M.D. [id number] BASOPHILS ABSOLUTE COUNT 0.14 K/mcL Normal 0.00-0.30 [facility] Comment on above: Performed By: #### L [id number] #### [facility] [address] [address] Travis Christensen M.D. [id number] Basophils/100 WBC (Bld) 1.3 % Normal [facility] Comment on above: Performed By: #### L [id number] #### [facility] [address] [address] Travis Christensen M.D. [id number] Eosinophils (Bld) [#/Vol] 0.16 10*3/uL Normal 0.00-0.50 [facility] Comment on above: Performed By: #### L [id number] #### [facility] [address] [address] Travis Christensen M.D. [id number] Eosinophils/100 WBC (Bld) 1.5 % Normal [facility] Comment on above: Performed By: #### L [id number] #### [facility] [address] [address] Travis Christensen M.D. [id number] Erythrocyte distribution width (RBC) [Ratio] 12.3 % Normal 11.6-14.8 [facility] Comment on above: Performed By: #### L [id number] #### [facility] [address] [address] Travis Christensen M.D. [id number] Hematocrit (Bld) [Volume fraction] 42.2 % Normal 41.0-53.0 [facility] Comment on above: Performed By: #### L [id number] #### [facility] [address] [address] Travis Christensen M.D. [id number] Hemoglobin (Bld) [Mass/Vol] 14.0 g/dL Normal 13.5-17.5 [facility] Comment on above: Performed By: #### L [id number] #### [facility] [address] [id number] Travis Christensen M.D. [id number] IG ABSOLUTE 0.06 K/mcL Normal 0.00-0.30 [facility] Comment on above: Performed By: #### L [id number] #### [facility] [address] [address] Travis Christensen M.D. [id number] IG PERCENT 0.50 % Normal [facility] Comment on above: Result Comment: The IG parameter is the percentage of metamyelocytes, myelocytes and promyelocytes. An immature granulocyte count (IG) of 1% or more suggests the possibility of infection, an IG count of 3% is very likely related to an infection. Performed By: #### L [id number] #### [place] [address] [address] [address] Travis Christensen M.D. [id number] Lymphocytes (Bld) [#/Vol] 2.58 10*3/uL Normal 0.90-4.00 [facility] Comment on above: Performed By: #### Silvina [id number] #### [facility] [address] [address] Travis Christensen M.D. [id number] Lymphocytes/100 WBC (Bld) 23.6 % Normal [facility] Comment on above: Performed By: #### Silvina [id number] #### [place] [address] [address] [address] Travis Christensen M.D. [id number] MCH (RBC) [Entitic mass] 33.3 pg Normal 26.0-34.0 [facility] Comment on above: Performed By: #### L [id number] #### [facility] [address] [address] Travis Christensen M.D. [id number] MCV (RBC) [Entitic vol] 100.2 fL High 80.0-100.0 [facility] Comment on above: Performed By: #### Silvina [id number] #### [place] [address] [address] [address] Travis Christensen M.D. [id number] MEAN CORPUSCULAR HEMOGLOBIN CONC 33.2 g/dL Normal 31.0-37.0 [facility] Comment on above: Performed By: #### Silvina [id number] #### [facility] [address] [address] Travis Christensen M.D. [id number] Monocytes (Bld) [#/Vol] 0.50 10*3/uL Normal 0.30-0.90 [facility] Comment on above: Performed By: #### L [id number] #### [facility] [address] [address] Travis Christensen M.D. [id number] Monocytes/100 WBC (Bld) 4.6 % Normal [facility] Comment on above: Performed By: #### Silvina [id number] #### [facility] [address] [address] Travis Christensen M.D. [id number] NEUTROPHILS ABSOLUTE COUNT 7.50 K/mcL High 1.70-7.00 [facility] Comment on above: Performed By: #### L [id number] #### [facility] [address] [address] Travis Christensen M.D. [id number] Neutrophils/100 WBC (Bld) 68.5 % Normal [facility] Comment on above: Performed By: #### L [id number] #### [facility] [address] [address] Travis Christensen M.D. [id number] Platelet mean volume (Bld) [Entitic vol] 9.0 fL Low 9.4-12.4 [facility] Comment on above: Performed By: #### L [id number] #### [facility] [address] [address] Travis Christensen M.D. [id number] Platelets (Bld) [#/Vol] 550 10*3/uL High 150-400 [facility] Comment on above: Performed By: #### L [id number] #### [facility] [address] [address] Travis Christensen M.D. [id number] RBC (Bld) [#/Vol] 4.21 10*6/uL Low 4.50-5.90 [facility] Comment on above: Performed By: #### L [id number] #### [facility] [address], [place] [address] Travis Christensen M.D. [id number] WBC (Bld) [#/Vol] 10.94 10*3/uL Normal 4.50-11.00 [facility] Comment on above: Performed By: #### L [id number] #### [facility] [address], [place] [address] Travis Christensen M.D. [id number] CONSULTon 10-18-2024 CONSULT --- Attestation signed by Marilou Vasquez MD at 10/18/2024 9:[address] scan reviewed. I agree with the resident note. PLASTIC SURGERY CONSULT NOTE Patient Name: Kade Gonzalez Admit Date: [id number] MR #: [id number] : 1995 Assessment and Plan: Kade Gonzalez [...] SCREW REMOVAL; Surgeon: Marilou Vasquez MD; Location: [facility] Main [place]; Service: Plastics; Laterality: N/A; INCISION AND DRAINAGE HEAD/NECK Left 10/14/2024 Procedure: LEFT MANDIBLE INCISION AND DRAINAGE; Surgeon: Marilou Vasquez MD; Location: [facility] [place]; Service: Plastics; Laterality: Left; ORIF MANDIBLE MAXILLA Bilateral 10/04/2024 Procedure: OPEN REDUCTION INTERNAL FIXATION MANDIBLE MAXILLA; Surgeon: Marilou Vasquez MD; Location: [facility] [place]; Service: Plastics; Laterality: Bilateral; History [...] Do not swallow naloxone (NARCAN) 4 mg/actuation [place] Administer 1 spray into one nostril for [...] Yes AUTHEN (more content not included)... Normal [facility] CT ANGIOGRAM CHEST ABDOMEN P HARRY [...] the thoracic or lumbar spine. Workstation ID: [id number] Dictated by: RACHEL THOMAS on SatOct 18, 2024 5:34:32 AM EDT Transcribed by: RACHEL THOMAS on SatOct 18, 2024 5:34:32 AM EDT Finalized by: RACHEL THOMAS on [place] Oct 18, 2024 5:34:32 AM EDT [facility] Comment on above: Order Comment: [...] malalignment of the cervical spine. Workstation ID: [id number] Dictated by: EMELY REVELES on SatOct 18, 2024 5:06:12 AM EDT Transcribed by: EMELY REVELES on SatOct 18, 2024 5:06:12 AM EDT Finalized by: EMELY REVELES on SatOct 18, 2024 5:06:12 AM EDT [facility] Comment on above: Order Comment: [...] malalignment of the cervical spine. Workstation ID: [id number] Dictated by: EMELY REVELES on SatOct 18, 2024 5:06:12 AM EDT Transcribed by: EMELY REVELES on SatOct 18, 2024 5:06:12 AM EDT Finalized by: EMELY REVELES on SatOct 18, 2024 5:06:12 AM EDT [facility] Comment on above: Order Comment: [...] the thoracic or lumbar spine. Workstation ID: [id number] Dictated by: RACHEL THOMAS on SatOct 18, 2024 5:34:32 AM EDT Transcribed by: RACHEL THOMAS on SatOct 18, 2024 5:34:32 AM EDT Finalized by: RACHEL THOMAS on SatOct 18, 2024 5:34:32 AM EDT [facility] Comment on above: Order Comment: Injur y/Trauma or Illness?:Injury/TraumaHow long have you had these symptoms (acute/chronic)?:AcuteReason for exam?:Head trauma, moderate-severeType of Exam?:InitialMechanism of injury?:Head trauma, moderate-severe Carbon dioxide, total [Moles /volume] in Central venous bloodOrdered By: Bairon Dee on 10-18-2024 CO2 [Moles/Vol] 19.8 mmol/L Low 21.0-32.[address] [facility] Chloride assayOrdered By: Swapna Dee on 10-18-2024 Chloride [Moles/Vol] 101 mmol/L 98-108 [facility] DRUGS OF ABUSE SCREEN, URINE on 10-18-2024 AMPHETAMINE SCREEN, URINE Positive Abnormal None Detected [facility] Comment on above: Order Comment: Scree n results should be used for treatment purposes only.Specimen will be kept for 2 weeks, if the sample is adequate. Confirmation testing can be initiated by calling the lab within 2 weeks. Result Comment: Urin e Amphetamine Cutoff: < 1000 ng/mL = None Detected Performed By: #### [id number] #### [facility] [address] [address] Travis Christensen M.D. [id number] BARBITURATE SCREEN URINE Positive Abnormal None Detected [facility] Comment on above: Order Comment: Scree n results should be used for treatment purposes only.Specimen will be kept for 2 weeks, if the sample is adequate. Confirmation testing can be initiated by calling the lab within 2 weeks. Result Comment: Urin e Barbiturates Cutoff: < 200 ng/mL = None Detected Performed By: #### [id number] #### [facility] [address] [address] Travis Christensen M.D. [id number] BENZODIAZEPINE SCREEN, URINE Not detected Normal None Detected [facility] Comment on above: Order Comment: Scree n results should be used for treatment purposes only.Specimen will be kept for 2 weeks, if the sample is adequate. Confirmation testing can be initiated by calling the lab within 2 weeks. Result Comment: Urin e Benzodiazepine Cutoff: < 200 ng/mL = None Detected Performed By: #### [id number] #### [facility] [address] [address] Travis Christensen M.D. [id number] BUPRENORPHINE, URINE Not detected Normal None Detected [facility] Comment on above: Order Comment: Scree n results should be used for treatment purposes only.Specimen will be kept for 2 weeks, if the sample is adequate. Confirmation testing can be initiated by calling the lab within 2 weeks. Result Comment: Urin e Buprenorphine Cutoff: < 5 ng/mL = None Detected Performed By: #### [id number] #### [facility] [address] [address] Travis Christensen M.D. [id number] CANNABINOID SCREEN URINE Not detected Normal None Detected [facility] Comment on above: Order Comment: Scree n results should be used for treatment purposes only.Specimen will be kept for 2 weeks, if the sample is adequate. Confirmation testing can be initiated by calling the lab within 2 weeks. Result Comment: Urin e Cannabinoids Cutoff: < 50 ng/mL = None Detected Performed By: #### [id number] #### [facility] [address] [address] Travis Christensen M.D. [id number] COCAINE, SCREEN URINE Not detected Normal None Detected [facility] Comment on above: Order Comment: Scree n results should be used for treatment purposes only.Specimen will be kept for 2 weeks, if the sample is adequate. Confirmation testing can be initiated by calling the lab within 2 weeks. Result Comment: Urin e Cocaine Cutoff: < 300 ng/mL = None Detected Performed By: #### 4 [id number] #### [facility] [address] [address] Travis Christensen M.D. [id number] FENTANYL, URINE Not detected Normal None Detected [facility] Comment on above: Order Comment: Scree n results should be used for treatment purposes only.Specimen will be kept for 2 weeks, if the sample is adequate. Confirmation testing can be initiated by calling the lab within 2 weeks. Result Comment: Urin e Fentanyl Cutoff: < 1 ng/mL = None Detected Performed By: #### 4 [id number] #### [facility] [address] [address] Travis Christensen M.D. [id number] METHADONE SCREEN, URINE Not detected Normal None Detected [facility] Comment on above: Order Comment: Scree n results should be used for treatment purposes only.Specimen will be kept for 2 weeks, if the sample is adequate. Confirmation testing can be initiated by calling the lab within 2 weeks. Result Comment: Urin e Methadone Cutoff: < 300 ng/mL = None Detected Performed By: #### 4 [id number] #### [facility] [address], [place] [address] Travis Christensen M.D. [id number] OPIATE SCREEN URINE Not detected Normal None Detected [facility] Comment on above: Order Comment: Scree n results should be used for treatment purposes only.Specimen will be kept for 2 weeks, if the sample is adequate. Confirmation testing can be initiated by calling the lab within 2 weeks. Result Comment: Urin e Opiates Cutoff: < 300 ng/mL = None Detected Performed By: #### 4 [id number] #### [facility] [address], [place] [address] Travis Christensen M.D. [id number] OXYCODONE SCREEN, URINE Not detected Normal None Detected [facility] Comment on above: Order Comment: Scree n results should be used for treatment purposes only.Specimen will be kept for 2 weeks, if the sample is adequate. Confirmation testing can be initiated by calling the lab within 2 weeks. Result Comment: Urin e Oxycodone Cutoff: < 100 ng/mL = None Detected Performed By: #### [id number] #### [facility] [address], [place] [address] Travis Christensen M.D. [id number] ED Prov Noteon 10-18-2024 ED Prov Note ED PROVIDER NOTE [facility] EMERGENCY DEPARTMENT NAME: Kade Gonzalez AGE: 28 y.o. : 1995 VISIT DATE: 10/18/2024 CSN: [id number] PCP: No, Physician Chief Complaint Patient presents with Facial Injury HPI/MDM: Kade Gonzalez is a 28 y.o. male who has a past medical history of Alcohol dependence (HCC), Anxiety, Anxiety and depression, Asthma, Depression, Migraines, Substance abuse (HCC), and Tobacco abuse., coming in for Facial Injury. [facility] Medical Decision Making ED Course as [...] Course User Index [RJ] Anaid Aguirre MD [facility] Data History: Past Medical History: Diagnosis Date Alcohol dependence (HCC) Anxiety Anxiety and depression Asthma Depression Migraines Substance abuse (HCC) Tobacco abuse Past Surgical History: Procedure Laterality Date ARCHBAR REMOVAL N/A 10/14/2024 Procedure: MAXILLOMANDIBULAR FIXATION SCREW REMOVAL; Surgeon: Marilou Vasquez MD; Location: [facility] [place]; Service: Plastics; Laterality: N/A; INCISION AND DRAINAGE HEAD/NECK Left 10/14/2024 Procedure: LEFT MANDIBLE INCISION AND DRAINAGE; Surgeon: Marilou Vasquez MD; Location: [facility]; Service: Plastics; Laterality: Left; ORIF MANDIBLE MAXILLA Bilateral 10/04/2024 Procedure: OPEN REDUCTION INTERNAL FIXATION MANDIBLE MAXILLA; Surgeon: Marilou Vasquez MD; Location: [facility]; Service: Plastics; Laterality: Bilateral; History [...] Do not swallow naloxone (NARCAN) 4 mg/actuation [place] Administer 1 spray into one nostril for [...] is no (more content not included)... Normal [facility] Emergency Department Summary on 10-18-2024 Emergency Department Summary [facility] Medical Records Department [address] [place] [address] Emergency Department Summary 10/18/24 MR#: [id number] Acct: [id number] Name: KADE GONZALEZ Rep #: [id number] : 1995 28 From: Bairon Dee DO PCP: Care Physician,No Primary Status:ADM IN Location: [address] History of Present Illness Chief Complaint: [...] 100 100 Oxygen Delivery Method Room Air [facility] Narrative Medical decision making narrative: HISTORY OF [...] reviewed, Vital signs reviewed Constitutional: please see [facility] HENT: MMM Eyes: Pupils equal round and [...] from others: none Consults: Hospitalist (Dr. Reece) [facility] Narrative: Patient was initially mildly tachycardic at [...] tox cream (more content not included)... Normal [facility] Emergency Department Summary [facility] Medical Records Department [address] [place] [address] Emergency Department Summary 10/18/24 MR#: [id number] Acct: [id number] Name: KADE GONZALEZ Rep #: [id number] : 1995 28 From: Bairon Dee [...] reviewed, Vital signs reviewed Constitutional: please see [facility] HENT: MMM, surgical scars noted over left [...] History obtained from others: none Consults: none [facility] Narrative: Patient was initially hemodynamically stable, afebrile [...] Discharge home This note was generated with [employer] dictation software. It may contain incorrect words, spelling, and punctuation that w (more content not included)... Normal [facility] Eosinophil percentageOrdered By: Bairon Dee on 10-18-2024 Eosinophils/100 WBC (Bld) 0.5 % 0-[address] [facility] Erythrocyte distribution wid th ratioOrdered By: Bairon Dee on 10-18-2024 Erythrocyte distribution width (RBC) [Ratio] 12.2 % 11.6-14.[address] [facility] Erythrocyte distribution wid th standard deviationOrdered By: Bairon Dee on 10-18-2024 Erythrocyte distribution width (RBC) [Ratio] 42.9 fl 35.1-43.[address] [facility] Glomerular filtration rate ( GFR) estimation/1.73 sq m using serum, plasma, or whole bOrdered By: Bairon Dee on 10-18-2024 GFR/1.73 sq M.predicted among non-blacks MDRD (S/P/Bld) [Vol rate/Area] 132 mL/min/{1.73_m2} >[address] [facility] Comment on above: mL/min/1.73m2 CKD-EP I Creatinine Equation (2020) H AND P Exam - [place] 10-18-2024 H&P Exam - Hospitalist [facility] Medical Records Department [address] [place] [address] H P Exam - Hospitalist 10/18/24 1840 MR#: [id number] Acct: [id number] Name: KADE GONZALEZ Rep #: [id number] : 1995 28 From: Ingrid Reece MD PCP: Care Physician,No Primary Status:ADM IN Location: [facility] [id number] HPI - General General Date of Admission: 10/18/24 Date of Service: 10/18/24 Chief Complaint: requesting alcohol detox HPI Narrative KADE GONZALEZ, is a 28-year-old male history of alcohol abuse, polysubstance abuse, tobacco use, jaw fracture presented [facility] ED 10/18/2024 for alcohol detox. Notably he [...] Blood Pres (more content not included)... Normal [facility] HEPATIC FUNCTION PANELon Albumin [Mass/Vol] 4.1 g/dL Normal 3.2-5.2 [facility] Comment on above: Performed By: #### 4 [id number] #### [facility] [address] [address] Travis Christensen M.D. [id number] ALP [Catalytic activity/Vol] 118 U/L Normal 40-140 [facility] Comment on above: Performed By: #### 4 [id number] #### [facility] [address] [id number] Travis Christensen M.D. [id number] ALT [Catalytic activity/Vol] 19 U/L Normal 0-50 U/L [facility] Comment on above: Performed By: #### 4 [id number] #### [facility] [address] [address] Travis Christensen M.D. [id number] AST [Catalytic activity/Vol] 25 U/L Normal 0-50 U/L [facility] Comment on above: Performed By: #### 4 [id number] #### [facility] [address] [address] Travis Christensen M.D. [id number] Bilirubin [Mass/Vol] 0.2 mg/dL Normal 0.0-1.3 [facility] Comment on above: Performed By: #### 4 [id number] #### [facility] [address] [address] Travis Christensen M.D. [id number] BILIRUBIN, DIRECT < Normal 0.0-0.4 [facility] Comment on above: Performed By: #### 4 [id number] #### [facility] [address] [address] Travis Christensen M.D. [id number] Protein [Mass/Vol] 7.7 g/dL Normal 6.0-8.0 [facility] Comment on above: Performed By: #### 4 [id number] #### [facility] [address] [address] Travis Christensen M.D. [id number] Hematocrit Auto (Bld) [Volum e fraction]Ordered By: Bairon Dee on 10-18-2024 Hematocrit (Bld) [Volume fraction] 42.0 % 40-[address] [facility] Hemoglobin measurementOrdere d By: Bairon Dee on 10-18-2024 Hemoglobin (Bld) [Mass/Vol] 14.8 g/dL 13.0-16.[address] [facility] Immature granulocytes/100 WB C Auto (Bld)Ordered By: Bairon Dee on 10-18-2024 Immature granulocytes/100 WBC (Bld) 0.400 % 0.0-0.[address] [facility] Comment on above: IG% - Immature Granu locytes (promyelocytes, myelocytes and metamyelocytes) > 1% indicates that a LEFT SHIFT is Present. International normalized rat io (INR) calculationOrdered By: Ingrid Reece on 10-18-2024 INR Coag (Bld) [Relative time] 1.1 {INR} [facility] Ketones Test strip Ql (U)Ord ered By: Ingrid Reece on 10-18-2024 Ketones Ql (U) 50 mg/dl High Negative [facility] LIPASEon 10-18-2024 Lipase [Catalytic activity/Vol] 20 U/L Normal 15-65 [facility] Comment on above: Performed By: #### 4 [id number] ####[facility] [address] [address] Travis Christensen M.D. [id number] Lactic Acidon 10-18-2024 Lactate [Moles/Vol] mmol/L Normal 0.0-2.0 [facility] Comment on above: Order Comment: Y Performed By: #### L 500.3400, L503.6005, L300.3900 ####[facility] [address] [place], [address] Lactic acid measurementOrder ed By: Ingrid Reece on 10-18-2024 Lactate [Moles/Vol] mmol/L 0.0-2.0 [facility] Liver Profileon 10-18-2024 Albumin [Mass/Vol] 3.8 g/dL Normal 3.5-5.0 [facility] Comment on above: Performed By: #### L 500.3400, L503.6005, L300.3900 ####[facility] [address] [place], [address] ALK PHOS 105 U/L Normal 40-[address] [facility] Comment on above: Performed By: #### L 500.3400, L503.6005, L300.3900 ####[facility] [address] [place], [address] ALT [Catalytic activity/Vol] 12 U/L Normal <=[address] [facility] Comment on above: Performed By: #### L 500.3400, L503.6005, L300.3900 ####[facility] [address] [place], [address] AST [Catalytic activity/Vol] 20 U/L Normal <=[address] [facility] Comment on above: Performed By: #### L 500.3400, L503.6005, L300.3900 ####[facility] [address] [place], [address] Bilirubin [Mass/Vol] 0.57 mg/dL Normal 0.00-1.30 [facility] Comment on above: Performed By: #### L 500.3400, L503.6005, L300.3900 ####[facility] [address] [place], [address] Bilirubin.direct [Mass/Vol] 0.32 mg/dL High 0.00-0.[address] [facility] Comment on above: Performed By: #### L 500.3400, L503.6005, L300.3900 ####[facility] [address] [place], [address] Globulin (S) [Mass/Vol] 2.9 g/dL Normal 2.2-4.2 [facility] Comment on above: Performed By: #### L 500.3400, L503.6005, L300.3900 ####[facility] [address] [place], [address] T PROT 6.6 g/dL Normal 5.9-8.[address] [facility] Comment on above: Performed By: #### L 500.3400, L503.6005, L300.3900 ####[facility] [address] [place], [address] MCV (mean corpuscular volume ) determinationOrdered By: Bairon Dee on 10-18-2024 MCV (RBC) [Entitic vol] 96.6 fL High 80-94 [facility] Mean corpuscular hemoglobin (MCH) determinationOrdered By: Bairon Dee on 10-18-2024 MCH (RBC) [Entitic mass] 34.0 pg High 27.0-32.[address] [facility] Mean corpuscular hemoglobin concentration (MCHC) determinationOrdered By: Bairon Dee on 10-18-2024 MCHC (RBC) [Mass/Vol] 35.2 g/dL 32-36 [facility] Mean platelet volume determi nationOrdered By: Bairon Dee on 10-18-2024 Platelet mean volume (Bld) [Entitic vol] 8.9 fL 6.2-12.[address] [facility] Microscopic analysis of urin e for red blood cells (RBC)Ordered By: Ingrid Reece on 10-18-2024 Microscopic analysis of urine for red blood cells (RBC) 0 SEEN /hpf 0-[address] [facility] Monocyte percentageOrdered B y: Bairon Dee on 10-18-2024 Monocytes/100 WBC (Bld) 5.0 % 0-10 [facility] Mucus LM Ql (Urine sed)Order ed By: Ingrid Reece on 10-18-2024 Mucus Ql (Urine sed) 0 SEEN /hpf [facility] Neutrophil percentageOrdered By: Bairon Dee on 10-18-2024 Neutrophils/100 WBC (Bld) 81.9 % High 47-[address] [facility] Nitrite Test strip Ql (U)Ord ered By: Ingrid Reece on 10-18-2024 Nitrite Ql (U) Negative Negative [facility] No Panel InformationOrdered By: Bairon Dee on 10-18-2024 Urine Buprenorphine Qualitative Negative < 200 ng/mL [facility] Urine Oxycodone Screen Negative < 100 ng/mL [facility] Nucleated red blood cell per centageOrdered By: Bairon Dee on 09-07-2025 Nucleated RBC/100 WBC (Bld) [Ratio] 0 % 0-[address] [facility] Platelet countOrdered By: Swapna Dee on 10-18-2024 Platelets (Bld) [#/Vol] 536 10*3/uL High 150-[address] [facility] Potassium measurement (mass/ volume)Ordered By: Bairon Dee on 10-18-2024 Potassium (Unsp spec) [Mass/Vol] 4.7 mmol/L 3.3-5.[address] [facility] Comment on above: Hemolysis present, R esults could be affected. Protein Test strip Ql (U)Ord ered By: Ingrid Reece on 10-18-2024 Protein Ql (U) 30 mg/dl High Negative [facility] Prothrombin Time w/INRon INR Coag (PPP) [Relative time] 1.1 {INR} Normal [facility] Comment on above: Performed By: #### L 500.3400, L503.6005, L300.3900 ####[facility] [address] [place], [address] PT Coag (PPP) [Time] 13.9 s Normal 11.7-14.9 [facility] Comment on above: Performed By: #### L 500.3400, L503.6005, L300.3900 ####[facility] [address] [place], [address] Prothrombin timeOrdered By: Ingrid Reece on 10-18-2024 PT Coag (PPP) [Time] 13.9 s 11.7-14.9 [facility] Quantitative urine opiates m easurementOrdered By: Bairon Dee on 10-18-2024 Opiates Ql (U) Positive < 300 ng/mL [facility] Comment on above: If confirmation test ing is needed, a separate order will be required to send out testing to the reference laboratory. RBC Auto (Bld) [#/Vol]Ordere d By: Bairon Dee on 10-18-2024 RBC (Bld) [#/Vol] 4.35 10*6/uL Low 4.6-6.2 [facility] SALICYLATE LEVELon SALICYLATE < Normal 0.0-20.0 [facility] Comment on above: Order Comment: Thera peutic Range: 10-20 mg/dLPotentially Toxic: >30 mg/dL Performed By: #### 4 [id number] #### [facility] [address] [place] [address] Travis Christensen M.D. [id number] Screening urine fentanyl luz maria surementOrdered By: Bairon Dee on 10-18-2024 fentaNYL Screen Ql (U) Negative <5 ng/mL [facility] Comment on above: CONFIRMATORY TESTING FOR ALL [...] 10-18-2024 Creatinine [Mass/Vol] 0.66 mg/dL Low 0.70-1.20 [facility] Serum glucose measurement (m ass/volume)Ordered By: Bairon Dee on 10-18-2024 Glucose [Mass/Vol] 70 mg/dL 70-99 [facility] Serum or plasma calcium gaetano urement (mass/volume)Ordered By: Bairon Dee on 10-18-2024 Calcium [Mass/Vol] 9.1 mg/dL 7.6-11.0 [facility] Serum or plasma ethanol gaetano urement (mass/volume)Ordered By: Bairon Dee on 10-18-2024 Ethanol [Mass/Vol] mg/dL <10.1 [facility] Comment on above: This test is for med ical purposes only. The legal definition of intoxication varies according to local law. Serum or plasma urea nitroge n measurement (mass/volume)Ordered By: Bairon Dee on 10-18-2024 Urea nitrogen [Mass/Vol] 9 mg/dL 4-[address] [facility] Sodium levelOrdered By: Kenyetta Dee on 10-18-2024 Sodium [Moles/Vol] 138 mmol/L 133-145 [facility] Squamous epithelial cells de tection in urine sediment by light microscopyOrdered By: Ingrid Reece on 10-18-2024 Epithelial cells.squamous LM Ql (Urine sed) 0 SEEN /hpf 0-[address] [facility] Urinalysis, Completeon 10-18 BACTERIA 0 SEEN Normal None Seen [facility] Comment on above: Order Comment: CLEAN CATCH Performed By: #### L 400.0001 ####[facility] [address] [place], [address] EPI,SQUAMOUS 0 SEEN Normal 0-[address] [facility] Comment on above: Order Comment: CLEAN CATCH Performed By: #### L 400.0001 ####[facility] [address] [facility] [address] Mucus Ql (Urine sed) 0 SEEN Normal [facility] Comment on above: Order Comment: CLEAN CATCH Performed By: #### L 400.0001 ####[facility] [address] [place], [address] RBC 0 SEEN Normal 0-[address] [facility] Comment on above: Order Comment: CLEAN CATCH Performed By: #### L 400.0001 ####[facility] [address] [facility] [address] WBC 0 SEEN Normal 0-[address] [facility] Comment on above: Order Comment: CLEAN CATCH Performed By: #### L 400.0001 ####[facility] [address] [place], [address] Urine Drug Screen (VISTA)on 10-18-2024 AMPHETAMINES Positive Normal <1000 ng/mL [facility] Comment on above: Result Comment: If c onfirmation testing is needed, a separate order will be required to send out testing to the reference laboratory. Performed By: #### L 505.5000, L100.0100, L500.2500, L501.9100 ####[facility] [address] [place], [address] BARBITIURATES Positive Normal < 200 ng/mL [facility] Comment on above: Result Comment: If c onfirmation testing is needed, a separate order will be required to send out testing to the reference laboratory. Performed By: #### L 505.5000, L100.0100, L500.2500, L501.9100 ####[facility] [address] [place], [address] BENZODIAZIPINE Positive Normal < 200 ng/mL [facility] Comment on above: Result Comment: If c onfirmation testing is needed, a separate order will be required to send out testing to the reference laboratory. Performed By: #### L 505.5000, L100.0100, L500.2500, L501.9100 ####[facility] [address] [place], [address] BUP Ur Drug Scr Negative Normal < 200 ng/mL [facility] Comment on above: Performed By: #### L 505.5000, L100.0100, L500.2500, L501.9100 ####[facility] [address] [place], [address] COCAINE Positive Normal < 300 ng/mL [facility] Comment on above: Result Comment: If c onfirmation testing is needed, a separate order will be required to send out testing to the reference laboratory. Performed By: #### L 505.5000, L100.0100, L500.2500, L501.9100 ####[facility] [address] [place], [address] Fentanyl Negative Normal <5 ng/mL [facility] Comment on above: Result Comment: CONF IRMATORY [...] By: #### L 505.5000, L100.0100, L500.2500, L501.9100 ####[facility] [address] [facility] [address] METHADONE Negative Normal < 300 ng/mL [facility] Comment on above: Performed By: #### L 505.5000, L100.0100, L500.2500, L501.9100 ####[facility] [address] [place] [address] OPIATES Positive Normal < 300 ng/mL [facility] Comment on above: Result Comment: If c onfirmation testing is needed, a separate order will be required to send out testing to the reference laboratory. Performed By: #### L 505.5000, L100.0100, L500.2500, L501.9100 ####[facility] [address] [facility] [address] OXYCODONE Negative Normal < 100 ng/mL [facility] Comment on above: Performed By: #### L 505.5000, L100.0100, L500.2500, L501.9100 ####[facility] [address] [facility] [address] PCP Negative Normal < 25 ng/mL [facility] Comment on above: Performed By: #### L 505.5000, L100.0100, L500.2500, L501.9100 ####[facility] [address] [facility] [address] THC Negative Normal < 50 ng/mL [facility] Comment on above: Performed By: #### L 505.5000, L100.0100, L500.2500, L501.9100 ####[facility] [address] [place], [address] AMPHETAMINES Normal <1000 ng/mL [facility] Comment on above: Result Comment: DUPL ICATE Performed By: #### L 505.5000, L500.2500, L100.0100 #### [facility] [address] [place], [address] BARBITIURATES Normal < 200 ng/mL [facility] Comment on above: Result Comment: DUPL ICATE Performed By: #### L 505.5000, L500.2500, L100.0100 #### [facility] [address] [place], [address] BENZODIAZIPINE Normal < 200 ng/mL [facility] Comment on above: Result Comment: DUPL ICATE Performed By: #### L 505.5000, L500.2500, L100.0100 #### [facility] [address] [place], [address] BUP Ur Drug Scr Normal < 200 ng/mL [facility] Comment on above: Result Comment: DUPL ICATE Performed By: #### L 505.5000, L500.2500, L100.0100 #### [facility] [address] [place], [address] COCAINE Normal < 300 ng/mL [facility] Comment on above: Result Comment: DUPL ICATE Performed By: #### L 505.5000, L500.2500, L100.0100 #### [facility] [address] [place], [address] Fentanyl Normal <5 ng/mL [facility] Comment on above: Result Comment: DUPL ICATE Performed By: #### L 505.5000, L500.2500, L100.0100 #### [facility] [address] [place], [address] METHADONE Normal < 300 ng/mL [facility] Comment on above: Result Comment: DUPL ICATE Performed By: #### L 505.5000, L500.2500, L100.0100 #### [facility] [address] [place], [address] OPIATES Normal < 300 ng/mL [facility] Comment on above: Result Comment: DUPL ICATE Performed By: #### L 505.5000, L500.2500, L100.0100 #### [facility] [address] [place], [address] OXYCODONE Normal < 100 ng/mL [facility] Comment on above: Result Comment: DUPL ICATE Performed By: #### L 505.5000, L500.2500, L100.0100 #### [facility] [address] [place], [address] PCP Normal < 25 ng/mL [facility] Comment on above: Result Comment: DUPL ICATE Performed By: #### L 505.5000, L500.2500, L100.0100 #### [facility] [address] [place], [address] THC Normal < 50 ng/mL [facility] Comment on above: Result Comment: DUPL ICATE Performed By: #### L 505.5000, L500.2500, L100.0100 #### [facility] [address] [place], [address] Urine benzodiazepine levelOr dered By: Bairon Dee on 10-18-2024 Benzodiazepines Ql (U) Positive < 200 ng/mL [facility] Comment on above: If confirmation test ing is needed, a separate order will be required to send out testing to the reference laboratory. Urine clarityOrdered By: Deepika Reece on 10-18-2024 Clarity (U) Clear Clear [facility] Urine cocaine levelOrdered B y: Bairon Dee on 10-18-2024 Cocaine Ql (U) Positive < 300 ng/mL [facility] Comment on above: If confirmation test ing is needed, a separate order will be required to send out testing to the reference laboratory. Urine color determinationOrd ered By: Ingrid Reece on 10-18-2024 Color (U) Yellow Yellow [facility] Urine knzdw-1-mghkttiawrhyrp abinol (THC) measurementOrdered By: Bairon Dee on 10-18-2024 Cannabinoids Screen Ql (U) Negative < 50 ng/mL [facility] Urine glucose detectionOrder ed By: Ingrid Reece on 10-18-2024 Glucose Ql (U) Normal mg/dl Normal [facility] Urine leukocyte esterase det ection by dipstickOrdered By: Ingrid Reece on 10-18-2024 Leukocyte esterase Test strip Ql (U) Negative Negative [facility] Urine pHOrdered By: Ingrid bergman on 10-18-2024 pH (U) 5.0 [pH] 5.0 - 8.[address] [facility] Urine phencyclidine (PCP) de tectionOrdered By: Bairon Dee on 10-18-2024 Phencyclidine Ql (U) Negative < 25 ng/mL [facility] Urine sediment bacteria coun t by microscopy (number/high power field)Ordered By: Ingrid Reece on 10-18-2024 Bacteria LM.HPF (Urine sed) [#/Area] 0 /[HPF] None Seen [facility] Urine specific gravity measu rementOrdered By: Ingrid Reece on 10-18-2024 Specific gravity (U) [Rel density] 1.025 1.002-1.[address] [facility] Urine urobilinogen measureme ntOrdered By: Ingrid Reece on 10-18-2024 Urobilinogen Ql (U) Normal mg/dl Normal [facility] White blood cell (WBC) count Ordered By: Bairon Dee on 10-18-2024 WBC (Bld) [#/Vol] 10.3 10*3/uL 4.4-11.0 [facility] White blood cell countOrdere d By: Ingrid Reece on 10-18-2024 White blood cell count 0 SEEN /hpf 0-5 [facility] CREATININE, SERUMon 10-15-19 Creatinine [Mass/Vol] 0.58 mg/dL Normal 0.50-1.30 [facility] Comment on above: Order Comment: [facility] has implemented the eGFR calculation approach that does not have a coefficient for race that conforms to the NKF-ASN Task Force Recommendations. Performed By: #### [id number] ####[facility] [address] [place], [place] [address] Travis Christensen M.D. [id number] EGFR 137 mL/min/1.73 m2 Normal >=60 [facility] Comment on above: Order Comment: [facility] has implemented the eGFR calculation approach that does not have a coefficient for race that conforms to the NKF-ASN Task Force Recommendations. Result Comment: Luzma mated GFR was calculated using the 2020 CKD-EPI creatinine equation. Performed By: #### [id number] ####[facility] [address] [place], [place] [address] Travis Christensen M.D. [id number] Creatinine [Mass/Vol]on GFR/1.73 sq M.predicted CKD-EPI (S/P/Bld) [Vol rate/Area] 137 - PINF [facility] Comment on above: Estimated GFR was ca lculated using the 2020 CKD-EPI creatinine equation. Interpretation and review of laboratory results Normal [facility] has implemented the eGFR calculation approach that does not have a coefficient for race that conforms to the NKF-ASN Task Force Recommendations. [facility] Creatinine, serumon 10-15-19 Creatinine [Mass/Vol] 0.58 mg/dL 0.50 - 1.30 mg/dL [facility] OP NOTEon 10-14-2024 OP NOTE Kade Daisy [id number] 1995 Attending: Marilou Vasquez MD Shaft Headman: Beverley Shepherd MD Pre Procedure Diagnosis: History [...] AUTHENTICATED BY MARILOU VASQUEZ, ON 10/14/2024 11:37:12 [facility] Alcohol, Medicalon Ethanol [Mass/Vol] mg/dL NINF - 10 .0 mg/dL [facility] Comment on above: Alcohol cutoff: <10. 00 mg/dL = None Detected BASIC METABOLIC PANELon Anion gap [Moles/Vol] 12 mmol/L Normal 10-20 [facility] Comment on above: Order Comment: [facility] has implemented the eGFR calculation approach that does not have a coefficient for race that conforms to the NKF-ASN Task Force Recommendations. Performed By: #### L [id number] #### [facility] [address] [place], [place] [address] Travis Christensen M.D. [id number] Calcium [Mass/Vol] 8.2 mg/dL Low 8.4-10.2 [facility] Comment on above: Order Comment: [facility] has implemented the eGFR calculation approach that does not have a coefficient for race that conforms to the NKF-ASN Task Force Recommendations. Performed By: #### L [id number] #### [facility] [address] [place] [id number] Travis Christensen M.D. [id number] Chloride [Moles/Vol] 104 mmol/L Normal 98-108 [facility] Comment on above: Order Comment: [facility] has implemented the eGFR calculation approach that does not have a coefficient for race that conforms to the NKF-ASN Task Force Recommendations. Performed By: #### L [id number] #### [facility] [address] [place] [address] Travis Christensen M.D. [id number] Creatinine [Mass/Vol] 0.73 mg/dL Normal 0.50-1.30 [facility] Comment on above: Order Comment: [facility] Laboratory [facility] has implemented the eGFR calculation approach that does not have a coefficient for race that conforms to the NKF-ASN Task Force Recommendations. Performed By: #### L [id number] #### [facility] [address] [place] [id number] Travis Christensen M.D. [id number] EGFR 128 mL/min/1.73 m2 Normal >=60 [facility] Comment on above: Order Comment: [facility] Laboratory [facility] has implemented the eGFR calculation approach that does not have a coefficient for race that conforms to the NKF-ASN Task Force Recommendations. Result Comment: Luzma mated GFR was calculated using the 2020 CKD-EPI creatinine equation. Performed By: #### L [id number] #### [facility] [address] [place] [address] Travis Christensen M.D. [id number] Glucose [Mass/Vol] 77 mg/dL Normal 65-99 [facility] Comment on above: Order Comment: [facility] has implemented the eGFR calculation approach that does not have a coefficient for race that conforms to the NKF-ASN Task Force Recommendations. Performed By: #### L [id number] #### [facility] [address] [place] [address] Travis Christensen M.D. [id number] HCO3 (Bld) [Moles/Vol] 27 mmol/L Normal 21-32 [facility] Comment on above: Order Comment: [facility] has implemented the eGFR calculation approach that does not have a coefficient for race that conforms to the NKF-ASN Task Force Recommendations. Performed By: #### L [id number] #### [facility] [address] [place] [address] Travis Christensen M.D. [id number] Potassium [Moles/Vol] 4.3 mmol/L Normal 3.5-5.1 [facility] Comment on above: Order Comment: [facility] has implemented the eGFR calculation approach that does not have a coefficient for race that conforms to the NKF-ASN Task Force Recommendations. Performed By: #### L [id number] #### [facility] [address] [place] [id number] Travis Christensen M.D. [id number] Sodium [Moles/Vol] 139 mmol/L Normal 135-145 [facility] Comment on above: Order Comment: [facility] has implemented the eGFR calculation approach that does not have a coefficient for race that conforms to the NKF-ASN Task Force Recommendations. Performed By: #### L [id number] #### [facility] [address] [place] [id number] Travis Christensen M.D. [id number] Urea nitrogen [Mass/Vol] 9 mg/dL Normal 8-25 [facility] Comment on above: Order Comment: [facility] has implemented the eGFR calculation approach that does not have a coefficient for race that conforms to the NKF-ASN Task Force Recommendations. Performed By: #### L [id number] #### [facility] [address] [place] [id number] Travis Christensen M.D. [id number] Urea nitrogen/Creatinine [Mass ratio] 12.3 mg/mg Normal 10.0-20.0 [facility] Comment on above: Order Comment: [facility] has implemented the eGFR calculation approach that does not have a coefficient for race that conforms to the NKF-ASN Task Force Recommendations. Performed By: #### L [id number] #### [facility] [address], [place] [address] Travis Christensen M.D. [id number] Basic metabolic 2000 panelon 10-13-2024 Anion gap [Moles/Vol] 12 mmol/L 10 - 2 0 mmol/L [facility] Calcium [Mass/Vol] 8.2 mg/dL Low 8.4 - 10. 2 mg/dL [facility] Chloride [Moles/Vol] 104 mmol/L 98 - 10 8 mmol/L [facility] Creatinine [Mass/Vol] 0.73 mg/dL 0.50 - 1.30 mg/dL [facility] GFR/1.73 sq M.predicted CKD-EPI (S/P/Bld) [Vol rate/Area] 128 - PINF [facility] Comment on above: Estimated GFR was ca lculated using the 2020 CKD-EPI creatinine equation. Glucose [Mass/Vol] 77 mg/dL 65 - 99 mg/dL [facility] HCO3 [Moles/Vol] 27 mmol/L 21 - 32 mmol/L [facility] Interpretation and review of laboratory results Abnormal [facility] Potassium [Moles/Vol] 4.3 mmol/L 3.5 - 5.1 mmol/L [facility] Sodium [Moles/Vol] 139 mmol/L 135 - 145 mmol/L [facility] Urea nitrogen [Mass/Vol] 9 mg/dL 8 - 25 mg/dL [facility] Urea nitrogen/Creatinine [Mass ratio] 12.3 mg/mg 10.0 - 20.0 [facility] has implemented the eGFR calculation approach that does not have a coefficient for race that conforms to the NKF-ASN Task Force Recommendations. [facility] CBCon 10-13-2024 AUTO NRBC 0.0 % Normal [facility] Comment on above: Performed By: #### [id number] ####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 ####[facility] [address], [place] [address] Travis Christensen M.D. [id number] Calcium [Mass/Vol] 9.1 mg/dL Normal 8.4-10.2 [facility] Comment on above: Order Comment: [facility] has implemented the eGFR calculation approach that does not have a coefficient for race that conforms to the NKF-ASN Task Force Recommendations. Performed By: #### 4 6124 ####[facility] [address], [place] [address] Travis Christensen M.D. [id number] Chloride [Moles/Vol] 99 mmol/L Normal 98-108 [facility] Comment on above: Order Comment: [facility] has implemented the eGFR calculation approach that does not have a coefficient for race that conforms to the NKF-ASN Task Force Recommendations. Performed By: #### 4 6124 ####[facility] [address], [place] [address] Travis Christensen M.D. [id number] Creatinine [Mass/Vol] 0.86 mg/dL Normal 0.50-1.30 [facility] Comment on above: Order Comment: [facility] has implemented the eGFR calculation approach that does not have a coefficient for race that conforms to the NKF-ASN Task Force Recommendations. Performed By: #### 4 6124 ####[facility] [address], [place] [address] Travis Christensen M.D. [id number] EGFR 122 mL/min/1.73 m2 Normal >=60 [facility] Comment on above: Order Comment: [facility] has implemented the eGFR calculation approach that does not have a coefficient for race that conforms to the NKF-ASN Task Force Recommendations. Result Comment: Luzma mated GFR was calculated using the 2020 CKD-EPI creatinine equation. Performed By: #### 4 6124 ####[facility] [address] [id number] Travis Christensen M.D. [id number] Glucose [Mass/Vol] 80 mg/dL Normal 65-99 [facility] Comment on above: Order Comment: [facility] has implemented the eGFR calculation approach that does not have a coefficient for race that conforms to the NKF-ASN Task Force Recommendations. Performed By: #### 4 6124 ####[facility] [address] [address] Travis Christensen M.D. [id number] HCO3 (Bld) [Moles/Vol] 24 mmol/L Normal 21-32 [facility] Comment on above: Order Comment: [facility] has implemented the eGFR calculation approach that does not have a coefficient for race that conforms to the NKF-ASN Task Force Recommendations. Performed By: #### 4 6124 ####[facility] [address] [address] Travis Christensen M.D. [id number] Potassium [Moles/Vol] 3.8 mmol/L Normal 3.5-5.1 [facility] Comment on above: Order Comment: [facility] has implemented the eGFR calculation approach that does not have a coefficient for race that conforms to the NKF-ASN Task Force Recommendations. Performed By: #### 4 6124 ####[facility] [address] [address] Travis Christensen M.D. [id number] Sodium [Moles/Vol] 135 mmol/L Normal 135-145 [facility] Comment on above: Order Comment: [facility] has implemented the eGFR calculation approach that does not have a coefficient for race that conforms to the NKF-ASN Task Force Recommendations. Performed By: #### 4 6124 ####[facility] [address] [id number] Travis Christensen M.D. [id number] Urea nitrogen [Mass/Vol] 7 mg/dL Low 8-25 [facility] Comment on above: Order Comment: [facility] has implemented the eGFR calculation approach that does not have a coefficient for race that conforms to the NKF-ASN Task Force Recommendations. Performed By: #### 4 6124 ####[facility] [address], [place] [address] Travis Christensen M.D. [id number] Urea nitrogen/Creatinine [Mass ratio] 8.1 mg/mg Low 10.0-20.0 [facility] Comment on above: Order Comment: [facility] has implemented the eGFR calculation approach that does not have a coefficient for race that conforms to the NKF-ASN Task Force Recommendations. Performed By: #### 4 6124 ####[facility] [address], [place] [address] Tarvis Christensen M.D. [id number] Basic metabolic 2000 panelOr dered By: Chava Siu on 10-03-2024 Anion gap [Moles/Vol] 16 mmol/L 10 - 2 0 mmol/L [facility] Calcium [Mass/Vol] 9.1 mg/dL 8.4 - 10. 2 mg/dL [facility] Chloride [Moles/Vol] 99 mmol/L 98 - 10 8 mmol/L [facility] Creatinine [Mass/Vol] 0.86 mg/dL 0.50 - 1.30 mg/dL [facility] GFR/1.73 sq M.predicted CKD-EPI (S/P/Bld) [Vol rate/Area] 122 - PINF [facility] Comment on above: Estimated GFR was ca lculated using the 2020 CKD-EPI creatinine equation. Glucose [Mass/Vol] 80 mg/dL 65 - 99 mg/dL [facility] HCO3 [Moles/Vol] 24 mmol/L 21 - 32 mmol/L [facility] Interpretation and review of laboratory results Abnormal [facility] Potassium [Moles/Vol] 3.8 mmol/L 3.5 - 5.1 mmol/L [facility] Sodium [Moles/Vol] 135 mmol/L 135 - 145 mmol/L [facility] Urea nitrogen [Mass/Vol] 7 mg/dL Low 8 - 25 mg/dL [facility] Urea nitrogen/Creatinine [Mass ratio] 8.1 mg/mg Low 10.0 - 20.0 [facility] has implemented the eGFR calculation approach that does not have a coefficient for race that conforms to the NKF-ASN Task Force Recommendations. [facility] CBCon 10-03-2024 AUTO NRBC 0.0 % Normal [facility] Comment on above: Performed By: #### 4 4014 #### [facility] [address] [place], [place] [address] Pratik Dukes M.D. [id number] AUTO NRBC ABS COUNT 0.00 K/mcL Normal 0.00-0.00 [facility] Comment on above: Performed By: #### 4 4014 #### [facility] [address] [place] [address] Pratik Dukes M.D. [id number] Erythrocyte distribution width (RBC) [Ratio] 12.1 % Normal 11.6-14.8 [facility] Comment on above: Performed By: #### 4 4014 #### [facility] [address] [place] [address] Pratik Dukes M.D. [id number] Hematocrit (Bld) [Volume fraction] 41.7 % Normal 41.0-53.0 [facility] Comment on above: Performed By: #### 4 4014 #### [facility] [address] [place] [address] Pratik Dukes M.D. [id number] Hemoglobin (Bld) [Mass/Vol] 14.1 g/dL Normal 13.5-17.5 [facility] Comment on above: Performed By: #### 4 4014 #### [facility] [address] [place], [place] [address] Pratik Dukes M.D. [id number] MCH (RBC) [Entitic mass] 33.2 pg Normal 26.0-34.0 [facility] Comment on above: Performed By: #### 4 4014 #### [facility] [address] [place], [place] [address] Pratik Dukes M.D. [id number] MCV (RBC) [Entitic vol] 98.1 fL Normal 80.0-100.0 G [facility] Comment on above: Performed By: #### 4 4014 #### [facility] [address] [place] [address] Pratik Dukes M.D. [id number] MEAN CORPUSCULAR HEMOGLOBIN CONC 33.8 g/dL Normal 31.0-37.0 [facility] Comment on above: Performed By: #### 4 4014 #### [facility] [address] [place], [place] [address] Pratik Dukes M.D. [id number] Platelet mean volume (Bld) [Entitic vol] 10.3 fL Normal 9.4-12.4 [facility] Comment on above: Performed By: #### 4 4014 #### [facility] [address] [place], [place] [address] Pratik Dukes M.D. [id number] Platelets (Bld) [#/Vol] 221 10*3/uL Normal 150-400 [facility] Comment on above: Performed By: #### 4 4014 #### [facility] [address] [place], [place] [address] Pratik Dukes M.D. [id number] RBC (Bld) [#/Vol] 4.25 10*6/uL Low 4.50-5.90 [facility] Comment on above: Performed By: #### 4 4014 #### [facility] [address] [place], [place] [address] Pratik Dukes M.D. [id number] WBC (Bld) [#/Vol] 10.68 10*3/uL Normal 4.50-11.00 [facility] Comment on above: Performed By: #### 4 4014 #### [facility] [address] [place] [address] Pratik Dukes M.D. [id number] CBC panel Auto (Bld)on 10-03 Erythrocyte distribution width (RBC) [Entitic vol] 12.1 % 11.6 - 14.8 % [facility] Hematocrit (Bld) [Volume fraction] 41.7 % 41.0 - 53.0 % [facility] Hemoglobin (Bld) [Mass/Vol] 14.1 g/dL 13.5 - 17.5 g/dL [facility] Interpretation and review of laboratory results Abnormal [facility] MCH (RBC) [Entitic mass] 33.2 pg 26.0 - 34.0 pg [facility] MCHC (RBC) [Mass/Vol] 33.8 g/dL 31.0 - 37.0 g/dL [facility] MCV (RBC) [Entitic vol] 98.1 fL 80.0 - 100.0 fL [facility] Nucleated RBC (Bld) [#/Vol] 0 10*3/uL [facility] Nucleated RBC/100 WBC (Bld) [Ratio] 0 % [facility] Platelet mean volume (Bld) [Entitic vol] 10.3 fL 9.4 - 12.4 fL [facility] Platelets (Bld) [#/Vol] 221 10*3/uL [facility] RBC (Bld) [#/Vol] 4.25 10*6/uL Low [facility] ealt WBC (Bld) [#/Vol] 10.68 10*3/uL [facility] DRUGS OF ABUSE SCREEN, URINE on 10-03-2024 AMPHETAMINE SCREEN, URINE Not detected Normal None Detected [facility] Comment on above: Order Comment: Scree n results should be used for treatment purposes only.Specimen will be kept for 2 weeks, if the sample is adequate. Confirmation testing can be initiated by calling the lab within 2 weeks. Result Comment: Urin e Amphetamine Cutoff: < 1000 ng/mL = None Detected Performed By: #### L [id number] #### [facility] [address], [place] [address] Travis Christensen M.D. [id number] BARBITURATE SCREEN URINE Positive Abnormal None Detected [facility] Comment on above: Order Comment: Scree n results should be used for treatment purposes only.Specimen will be kept for 2 weeks, if the sample is adequate. Confirmation testing can be initiated by calling the lab within 2 weeks. Result Comment: Urin e Barbiturates Cutoff: < 200 ng/mL = None Detected Performed By: #### L [id number] #### [facility] [address] [address] Travis Christensen M.D. [id number] BENZODIAZEPINE SCREEN, URINE Positive Abnormal None Detected [facility] Comment on above: Order Comment: Scree n results should be used for treatment purposes only.Specimen will be kept for 2 weeks, if the sample is adequate. Confirmation testing can be initiated by calling the lab within 2 weeks. Result Comment: Urin e Benzodiazepine Cutoff: < 200 ng/mL = None Detected Performed By: #### L [id number] #### [facility] [address] [address] Travis Christensen M.D. [id number] BUPRENORPHINE, URINE Not detected Normal None Detected [facility] Comment on above: Order Comment: Scree n results should be used for treatment purposes only.Specimen will be kept for 2 weeks, if the sample is adequate. Confirmation testing can be initiated by calling the lab within 2 weeks. Result Comment: Urin e Buprenorphine Cutoff: < 5 ng/mL = None Detected Performed By: #### L [id number] #### [facility] [address] [address] Travis Christensen M.D. [id number] CANNABINOID SCREEN URINE Not detected Normal None Detected [facility] Comment on above: Order Comment: Scree n results should be used for treatment purposes only.Specimen will be kept for 2 weeks, if the sample is adequate. Confirmation testing can be initiated by calling the lab within 2 weeks. Result Comment: Urin e Cannabinoids Cutoff: < 50 ng/mL = None Detected Performed By: #### L [id number] #### [facility] [address] [address] Travis Christensen M.D. [id number] COCAINE, SCREEN URINE Not detected Normal None Detected [facility] Comment on above: Order Comment: Scree n results should be used for treatment purposes only.Specimen will be kept for 2 weeks, if the sample is adequate. Confirmation testing can be initiated by calling the lab within 2 weeks. Result Comment: Urin e Cocaine Cutoff: < 300 ng/mL = None Detected Performed By: #### L [id number] #### [facility] [address] [address] Travis Christensen M.D. [id number] FENTANYL, URINE Not detected Normal None Detected [facility] Comment on above: Order Comment: Scree n results should be used for treatment purposes only.Specimen will be kept for 2 weeks, if the sample is adequate. Confirmation testing can be initiated by calling the lab within 2 weeks. Result Comment: Urin e Fentanyl Cutoff: < 1 ng/mL = None Detected Performed By: #### L [id number] #### [facility] [address] [address] Travis Christensen M.D. [id number] METHADONE SCREEN, URINE Not detected Normal None Detected [facility] Comment on above: Order Comment: Scree n results should be used for treatment purposes only.Specimen will be kept for 2 weeks, if the sample is adequate. Confirmation testing can be initiated by calling the lab within 2 weeks. Result Comment: Urin e Methadone Cutoff: < 300 ng/mL = None Detected Performed By: #### L [id number] #### [facility] [address] [address] Travis Christensen M.D. [id number] OPIATE SCREEN URINE Not detected Normal None Detected [facility] Comment on above: Order Comment: Scree n results should be used for treatment purposes only.Specimen will be kept for 2 weeks, if the sample is adequate. Confirmation testing can be initiated by calling the lab within 2 weeks. Result Comment: Urin e Opiates Cutoff: < 300 ng/mL = None Detected Performed By: #### L [id number] #### [facility] [address] [address] Travis Christensen M.D. [id number] OXYCODONE SCREEN, URINE Positive Abnormal None Detected [facility] Comment on above: Order Comment: Scree n results should be used for treatment purposes only.Specimen will be kept for 2 weeks, if the sample is adequate. Confirmation testing can be initiated by calling the lab within 2 weeks. Result Comment: Urin e Oxycodone Cutoff: < 100 ng/mL = None Detected Performed By: #### L [id number] #### [facility] [address] [id number] Travis Christensen M.D. [id number] Drugs of Abuse Screen, Urine Ordered By: Axel Chanel on 10-03-2024 Amphetamines Ql (U) Not detected None Detected [facility] Comment on above: Urine Amphetamine Cu toff: < 1000 ng/mL = None Detected Barbiturates Screen Ql (U) Positive Abnormal None Detected [facility] Comment on above: Urine Barbiturates C utoff: < 200 ng/mL = None Detected Benzodiazepines Ql (U) Positive Abnormal None Detected [facility] Comment on above: Urine Benzodiazepine Cutoff: < 200 ng/mL = None Detected Buprenorphine Ql (U) Not detected None Detected [facility] Comment on above: Urine Buprenorphine Cutoff: < 5 ng/mL = None Detected Cannabinoids Screen Ql (U) Not detected None Detected [facility] Comment on above: Urine Cannabinoids C utoff: < 50 ng/mL = None Detected Cocaine Ql (U) Not detected None Detected [facility] Comment on above: Urine Cocaine Cutoff : < 300 ng/mL = None Detected fentaNYL+Norfentanyl Screen Ql (U) Not detected None Detected [facility] Comment on above: Urine Fentanyl Cutof f: < 1 ng/mL = None Detected Interpretation and review of laboratory results Abnormal [facility] Methadone Screen Ql (U) Not detected None Detected [facility] Comment on above: Urine Methadone Cuto ff: < 300 ng/mL = None Detected Opiates Screen Ql (U) Not detected None Detected [facility] Comment on above: Urine Opiates Cutoff : < 300 ng/mL = None Detected oxyCODONE Ql (U) Positive Abnormal None Detected [facility] Comment on above: Urine Oxycodone Cuto ff: < 100 ng/mL = None Detected Screen results shoul d be used for treatment purposes only. Specimen will be kept for 2 weeks, if the sample is adequate. Confirmation testing can be initiated by calling the lab within 2 weeks. [facility] ABORH VERIFICATIONon 025 ABO and Rh group Nom (Bld) Blood group O Rh(D) positive [facility] Comment on above: Performed By: #### 4 [id number] #### [facility] [address] [facility] [address] Naomi Chapman MD [id number] GMCTS ABO and Rh group Nom (Bld) ABO/Rh Verification [facility] Comment on above: Result Comment: Chacorta ent's ABO/Rh is verified. Performed By: #### 4 8740 #### [facility] [address] [facility] [address] Naomi Chapman MD [id number] GMCTS ABORH Verificationon 025 ABO and Rh group Nom (Bld) Blood group O Rh(D) positive [facility] ABO and Rh group Nom (Bld) ABO/Rh Verification [facility] Comment on above: Patient's ABO/Rh is verified. [facility] ALCOHOL, MEDICALon 5 ALCOHOL MEDICAL 35.0 mg/dL High <10.0 [facility] Comment on above: Performed By: #### 4 4014 #### [facility] [address] [place], [place] [address] Pratik Dukes M.D. [id number] Absolute lymphocyte countOrd ered By: Colin Colon on 10-02-2024 Lymphocytes Auto (Unsp spec) [#/Vol] 1.50 10*3/uL 0.83-4.[address] [facility] Absolute neutrophil countOrd ered By: Colin Colon on 10-02-2024 Neutrophils (Bld) [#/Vol] 7.9 10*3/uL High 2.0-7.[address] [facility] Activated partial thrombopla stin time (aPTT) in platelet poor plasma by coagulation aOrdered By: Colin Colon on 10-02-2024 aPTT Coag (PPP) [Time] 26.0 s 24.1-36.2 [facility] Alcohol, Blood (Medical)-Ser umon 10-02-2024 SERUM ETOH 165.0 mg/dL High <=10.[address] [facility] Comment on above: Result Comment: This test is for medical purposes only. The legal definition of intoxication varies according to local law. Performed By: #### L 501.9100, L500.2500, L300.3900, L100.0100, L300.4310 ####[facility] [address] [place], [place], [address] Alcohol, Medicalon 5 Ethanol [Mass/Vol] 35 mg/dL High NINF - 10 .0 mg/dL [facility] Anion gap in Serum or Plasma Ordered By: Colin Colon on 10-02-2024 Anion gap [Moles/Vol] 17 mmol/L High 5-15 [facility] Automated lymphocyte count a s percentage of total leukocytesOrdered By: Colin Darlene on 10-02-2024 Lymphocytes/100 WBC Auto (Unsp spec) 14.6 % Low 19-[address] [facility] BASIC METABOLIC PANELon 09-12 Anion gap [Moles/Vol] 20 mmol/L Normal 10-20 [facility] Comment on above: Order Comment: [facility] has implemented the eGFR calculation approach that does not have a coefficient for race that conforms to the NKF-ASN Task Force Recommendations. Performed By: #### 4 6124 ####[facility] [address] [address] Travis Christensen M.D. [id number] Calcium [Mass/Vol] 8.6 mg/dL Normal 8.4-10.2 [facility] Comment on above: Order Comment: [facility] has implemented the eGFR calculation approach that does not have a coefficient for race that conforms to the NKF-ASN Task Force Recommendations. Performed By: #### 4 6124 ####[facility] [address] [address] Travis Christensen M.D. [id number] Chloride [Moles/Vol] 104 mmol/L Normal 98-108 [facility] Comment on above: Order Comment: [facility] Laboratory [facility] has implemented the eGFR calculation approach that does not have a coefficient for race that conforms to the NKF-ASN Task Force Recommendations. Performed By: #### 4 6124 ####[facility] [address] [address] Travis Christensen M.D. [id number] Creatinine [Mass/Vol] 0.56 mg/dL Normal 0.50-1.30 [facility] Comment on above: Order Comment: [facility] has implemented the eGFR calculation approach that does not have a coefficient for race that conforms to the NKF-ASN Task Force Recommendations. Performed By: #### 4 6124 ####[facility] [address] [id number] Travis Christensen M.D. [id number] EGFR 139 mL/min/1.73 m2 Normal >=60 [facility] Comment on above: Order Comment: [facility] has implemented the eGFR calculation approach that does not have a coefficient for race that conforms to the NKF-ASN Task Force Recommendations. Result Comment: Luzma mated GFR was calculated using the 2020 CKD-EPI creatinine equation. Performed By: #### 4 6124 ####[facility] [address] [address] Travis Christensen M.D. [id number] Glucose [Mass/Vol] 93 mg/dL Normal 65-99 [facility] Comment on above: Order Comment: [facility] has implemented the eGFR calculation approach that does not have a coefficient for race that conforms to the NKF-ASN Task Force Recommendations. Performed By: #### 4 6124 ####[facility] [address] [id number] Travis Christensen M.D. [id number] HCO3 (Bld) [Moles/Vol] 19 mmol/L Low 21-32 [facility] Comment on above: Order Comment: [facility] has implemented the eGFR calculation approach that does not have a coefficient for race that conforms to the NKF-ASN Task Force Recommendations. Performed By: #### 4 6124 ####[facility] [address] [address] Travis Christensen M.D. [id number] Potassium [Moles/Vol] 3.9 mmol/L Normal 3.5-5.1 [facility] Comment on above: Order Comment: [facility] has implemented the eGFR calculation approach that does not have a coefficient for race that conforms to the NKF-ASN Task Force Recommendations. Performed By: #### 4 6124 ####[facility] [address] [id number] Travis Christensen M.D. [id number] Sodium [Moles/Vol] 139 mmol/L Normal 135-145 [facility] Comment on above: Order Comment: [facility] has implemented the eGFR calculation approach that does not have a coefficient for race that conforms to the NKF-ASN Task Force Recommendations. Performed By: #### 4 6159 ####[facility] [address] [place], [place] [address] Travis Christensen M.D. [id number] Urea nitrogen [Mass/Vol] 4 mg/dL Low 8-25 [facility] Comment on above: Order Comment: [facility] has implemented the eGFR calculation approach that does not have a coefficient for race that conforms to the NKF-ASN Task Force Recommendations. Performed By: #### 4 6124 ####[facility] [address] [place], [place] [address] Travis Christensen M.D. [id number] Urea nitrogen/Creatinine [Mass ratio] 7.1 mg/mg Low 10.0-20.0 [facility] Comment on above: Order Comment: [facility] has implemented the eGFR calculation approach that does not have a coefficient for race that conforms to the NKF-ASN Task Force Recommendations. Performed By: #### 4 6124 ####[facility] [address], [place] [address] Travis Christensen M.D. [id number] BUN/creatinine ratioOrdered By: Colin Colon on 10-02-2024 Urea nitrogen/Creatinine [Mass ratio] 7.6 mg/mg Low 10-[address] [facility] Basic Metabolic Profile (BMP )on 10-02-2024 BUN/CRE 7.6 RATIO Low 10-[address] [facility] Comment on above: Performed By: #### L 501.9100, L500.2500, L300.3900, L100.0100, L300.4310 ####[facility] [address] [place], [address] Calcium [Mass/Vol] 8.9 mg/dL Normal 7.6-11.0 [facility] Comment on above: Performed By: #### L 501.9100, L500.2500, L300.3900, L100.0100, L300.4310 ####[facility] [address] [place], [address] Chloride [Moles/Vol] 103 mmol/L Normal 98-108 [facility] Comment on above: Performed By: #### L 501.9100, L500.2500, L300.3900, L100.0100, L300.4310 ####[facility] [address] [place], [address] CO2 [Moles/Vol] 18.7 mmol/L Low 21.0-32.[address] [facility] Comment on above: Performed By: #### L 501.9100, L500.2500, L300.3900, L100.0100, L300.4310 ####[facility] [address] [place], [address] Creatinine [Mass/Vol] 0.58 mg/dL Low 0.70-1.20 [facility] Comment on above: Performed By: #### L 501.9100, L500.2500, L300.3900, L100.0100, L300.4310 ####[facility] [address] [place], [address] ECRCL 203.76 ml/min Normal 50-[address] [facility] Comment on above: Performed By: #### L 501.9100, L500.2500, L300.3900, L100.0100, L300.4310 ####[facility] [address] [place], [address] GAP 17 High 5-[address] [facility] Comment on above: Performed By: #### L 501.9100, L500.2500, L300.3900, L100.0100, L300.4310 ####[facility] [address] [place], [address] GFR/1.73 sq M.predicted among non-blacks MDRD (S/P/Bld) [Vol rate/Area] 137 mL/min/{1.73_m2} Normal >[address] [facility] Comment on above: Result Comment: mL/m in/1.73m2 CKD-EPI Creatinine Equation (2020) Performed By: #### L 501.9100, L500.2500, L300.3900, L100.0100, L300.4310 ####[facility] [address] [place], [address] Glucose [Mass/Vol] 108 mg/dL High 70-99 [facility] Comment on above: Performed By: #### L 501.9100, L500.2500, L300.3900, L100.0100, L300.4310 ####[facility] [address] [place], [address] Potassium [Moles/Vol] 4.1 mmol/L Normal 3.3-5.1 [facility] Comment on above: Result Comment: Hemo lysis present, Results??could be affected. ?? Performed By: #### L 501.9100, L500.2500, L300.3900, L100.0100, L300.4310 ####[facility] [address] [place], [address] Sodium [Moles/Vol] 139 mmol/L Normal 133-145 [facility] Comment on above: Performed By: #### L 501.9100, L500.2500, L300.3900, L100.0100, L300.4310 ####[facility] [address] [place], [address] Urea nitrogen [Mass/Vol] 4 mg/dL Normal 4-[address] [facility] Comment on above: Performed By: #### L 501.9100, L500.2500, L300.3900, L100.0100, L300.4310 ####[facility] [address] [place], [address] Basic metabolic 2000 panelOr dered By: Wilber Holt on 10-02-2024 Anion gap [Moles/Vol] 20 mmol/L 10 - 2 0 mmol/L [facility] Calcium [Mass/Vol] 8.6 mg/dL 8.4 - 10. 2 mg/dL [facility] Chloride [Moles/Vol] 104 mmol/L 98 - 10 8 mmol/L [facility] Creatinine [Mass/Vol] 0.56 mg/dL 0.50 - 1.30 mg/dL [facility] GFR/1.73 sq M.predicted CKD-EPI (S/P/Bld) [Vol rate/Area] 139 - PINF [facility] Comment on above: Estimated GFR was ca lculated using the 2020 CKD-EPI creatinine equation. Glucose [Mass/Vol] 93 mg/dL 65 - 99 mg/dL [facility] HCO3 [Moles/Vol] 19 mmol/L Low 21 - 32 mmol/L [facility] Interpretation and review of laboratory results Abnormal [facility] Potassium [Moles/Vol] 3.9 mmol/L 3.5 - 5.1 mmol/L [facility] Sodium [Moles/Vol] 139 mmol/L 135 - 145 mmol/L [facility] Urea nitrogen [Mass/Vol] 4 mg/dL Low 8 - 25 mg/dL [facility] Urea nitrogen/Creatinine [Mass ratio] 7.1 mg/mg Low 10.0 - 20.0 [facility] Services has implemented the eGFR calculation approach that does not have a coefficient for race that conforms to the NKF-ASN Task Force Recommendations. [facility] Basophil percentageOrdered B y: Colin Colon on 10-02-2024 Basophils/100 WBC (Bld) 0.7 % 0-1 [facility] Blood type and Indirect anti body screen panel (Bld)on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 L100.0100, L300.4310 ####[facility] [address] [place], [address] Platelet countOrdered By: Anjali Colon on 10-02-2024 Platelets (Bld) [#/Vol] 256 10*3/uL 150-[address] [facility] Potassium measurement (mass/ volume)Ordered By: Colin Colon on 10-02-2024 Potassium (Unsp spec) [Mass/Vol] 4.1 mmol/L 3.3-5.[address] [facility] Comment on above: Hemolysis present, R esults could be affected. Prothrombin Time w/INRon INR Coag (PPP) [Relative time] 0.9 {INR} Normal [facility] Comment on above: Performed By: #### L 501.9100, L500.2500, L300.3900, L100.0100, L300.4310 #### [facility] Laboratory [address] [place], [address] PT Coag (PPP) [Time] 12.0 s Normal 11.7-14.9 [facility] Comment on above: Performed By: #### L 501.9100, L500.2500, L300.3900, L100.0100, L300.4310 #### [facility] Laboratory [address] [place], [address] Prothrombin timeOrdered By: Colin Colon on 10-02-2024 PT Coag (PPP) [Time] 12.0 s 11.7-14.9 [facility] RBC Auto (Bld) [#/Vol]Ordere d By: Colin Colon on 10-02-2024 RBC (Bld) [#/Vol] 4.44 10*6/uL Low 4.6-6.2 [facility] Serum creatinine measurement (mass/volume)Ordered By: Colin Colon on 10-02-2024 Creatinine [Mass/Vol] 0.58 mg/dL Low 0.70-1.20 [facility] Serum glucose measurement (m ass/volume)Ordered By: Colin Colon on 10-02-2024 Glucose [Mass/Vol] 108 mg/dL High 70-99 [facility] Serum or plasma calcium gaetano urement (mass/volume)Ordered By: Colin Colon on 10-02-2024 Calcium [Mass/Vol] 8.9 mg/dL 7.6-11.0 [facility] Serum or plasma ethanol gaetano urement (mass/volume)Ordered By: Colin Colon on 10-02-2024 Ethanol [Mass/Vol] 165.0 mg/dL High <10.1 [facility] Comment on above: This test is for med ical purposes only. The legal definition of intoxication varies according to local law. Serum or plasma urea nitroge n measurement (mass/volume)Ordered By: Colin Colon on 10-02-2024 Urea nitrogen [Mass/Vol] 4 mg/dL 4-[address] [facility] Sinus/Facial Boneon 10-03-19 Sinus/Facial Bone [facility] Imaging Services [address] [place], [place] [address] Sinus/Facial Bone MR#: [id number] Acct: [id number] Name: KADE GONZALEZ Rep #: [id number] : 1995 M 28 From: Brianna maxwell MD PCP: Care Physician,No Primary Status: REG ER Study: Sinus/Facial Bone Date of Exam: 10/02/24 Exam# [id number] Ordering Dr: Colin Colon DO PROCEDURE: SINUS/FACIAL [...] master intramuscular hematoma as detailed. Reading Location: [place] [address] CC: Colin Colon DO; No Primary Care Physician [employer]: Signed Normal [facility] Sodium levelOrdered By: Epi Colon on 10-02-2024 Sodium [Moles/Vol] 139 mmol/L 133-145 [facility] Spine Cervical without Contr ason 10-02-2024 Spine Cervical without Contras [facility] Imaging Services [address] [place] [address] Spine Cervical without Contras MR#: [id number] Acct: [id number] Name: KADE GONZALEZ Rep #: [id number] : 1995 M 28 From: Brianna maxwell MD PCP: Care Physician,No Primary Status: REG ER Study: Spine Cervical without Contras Date of Exam: 0 10/02/24 Exam# [id number] Ordering Dr: Colin Colon DO PROCEDURE: SPINE [...] an acute fracture or dislocation. Reading Location: [place] [address] CC: Colin Colon DO; No Primary Care Physician [employer]: Signed Normal [facility] TYPE AND SCREENon 10-02-2024 TYPE AND SCREEN ABORH: O Positive AB SCREEN: Negative EXPIRATION DATE: 10/05/2024 23:59 EST Normal [facility] Comment on above: Performed By: #### 4 6619 ####[facility] TRANSF[facility]ION SERVICES [address] [facility] [address] Naomi Chapman MD [id number] [facility] White blood cell (WBC) count Ordered By: Colin Colon on 10-02-2024 WBC (Bld) [#/Vol] 10.3 10*3/uL 4.4-11.0 [facility] H AND P Exam - [facility] 10-01-2024 H&P Exam - Hospitalist [facility] Medical Records Department [address] [place] [address] H P Exam - Hospitalist 10/01/24 0151 MR#: [id number] Acct: [id number] Name: KADE GONZALEZ Rep #: [id number] : 1995 28 From: Jacquie Beckwith MD PCP: Care Physician,No Primary Status:ADM IN Location: [facility] [id number] HPI - General General Date of Admission: [...] court date with then referral to [facility] [place] [facility]; however, unfortunately instead of [...] Awake, a (more content not included)... Normal [facility] Magnesiumon 10-01-2024 Magnesium [Mass/Vol] 1.8 mg/dL Normal 1.5-2.2 [facility] Comment on above: Performed By: #### L 501.2300, L501.5200 ####[facility] [address] [place], [place], [address] Magnesium measurement (mass/ volume)Ordered By: Jacquie Beckwith on 10-01-2024 Magnesium (Unsp spec) [Mass/Vol] 1.8 mg/dL 1.5-2.[address] [facility] Phosphoruson 10-01-2024 Phosphate [Mass/Vol] 4.7 mg/dL High 2.7-4.5 [facility] Comment on above: Performed By: #### L 501.2300, L501.5200 ####[facility] [id number] [place], [address] ACETAMINOPHENon 09-30-2024 Acetaminophen [Mass/Vol] ug/mL Low 10.0 - 30.0 [facility] Comment on above: Performed By: #### 2 18907 #### [facility],[address] [place] [address] ALCOHOL-BLOOD MEDICALon 09-12 Ethanol [Mass/Vol] 94 mg/dL High 0 - 50 [facility] Comment on above: Performed By: #### 2 40691 #### [facility],[address] [place] [address] CBC + DIFFon 09-30-2024 Baso # 0.01 x10EE3/UL Normal 0.00 - 0.10 [facility] Comment on above: Performed By: #### 2 24102 #### [facility],[address] [place], [place] [address] Basophils/100 WBC (Bld) 0.2 % Normal 0.0 - 2.0 [facility] Comment on above: Performed By: #### 2 73505 #### [facility],[address] [place] [address] CBC + DIFF Normal [facility] Comment on above: Result Comment: CBC- COMPLETE BLOOD COUNT Performed By: #### 2 77757 #### [facility],[address] [place] [address] EO # 0.14 x10EE3/UL Normal 0.00 - 0.50 [facility] Comment on above: Performed By: #### 2 79222 #### [facility],[address] [place] [address] Eosinophils/100 WBC (Bld) 2.3 % Normal 0.0 - 7.0 [facility] Comment on above: Performed By: #### 2 89497 #### [place] [address] Erythrocyte distribution width (RBC) [Ratio] 12.4 % Normal 12.0 - 15.6 [facility] Comment on above: Performed By: #### 2 23671 #### [facility],[address] [place] [address] Hematocrit (Bld) [Volume fraction] 41.7 % Normal 40.0 - 52.0 [facility] Comment on above: Performed By: #### 2 08175 #### [facility],[address] [place], [place] [address] Hemoglobin (Bld) [Mass/Vol] 14.7 g/dL Normal 13.0 - 17.5 [facility] Comment on above: Performed By: #### 2 53783 #### [facility],[address] [place] [address] Lymph # 2.10 x10EE3/UL Normal 0.80 - 2.80 [facility] Comment on above: Performed By: #### 2 81121 #### [facility],[address] [place] [address] Lymphocytes/100 WBC (Bld) 36.3 % Normal 20.0 - 45.0 [facility] Comment on above: Performed By: #### 2 12556 #### [facility],[address] [place] [address] 47563 MANUAL DIFF N/A Normal [facility] Comment on above: Performed By: #### 2 58887 #### [facility],[address] [place], [place] [address] MCH (RBC) [Entitic mass] 35 pg High 27 - 33 [facility] Comment on above: Performed By: #### 2 33898 #### [facility],[address] [place] [address] 65406 MCHC 35 X10 3 Normal 32 - 36 [facility] Comment on above: Performed By: #### 2 49963 #### [facility],[address] [place] [address] 77842 MCV (RBC) [Entitic vol] 99 fL High 81 - 98 [facility] Comment on above: Performed By: #### 2 92153 #### [facility],[address] [place] [address] 79539 Mcpherson # 0.43 x10EE3/UL Normal 0.20 - 1.00 [facility] Comment on above: Performed By: #### 2 90966 #### [facility],[address] [place] [address] 56481 MONOS % 7.4 % Normal 0.0 - 10.0 [facility] Comment on above: Performed By: #### 2 17532 #### [facility],[address] [place] [address] Morphology Isacc (Bld) [Interp] N/A Normal [facility] Comment on above: Performed By: #### 2 77346 #### [facility],[address] [place] [address] Neut # 3.10 x10EE3/UL Normal 1.50 - 7.10 [facility] Comment on above: Performed By: #### 2 34337 #### [facility],[address] [place], [place] [address] Neutrophils/100 WBC (Bld) 53.7 % Normal 46.0 - 76.0 [facility] Comment on above: Performed By: #### 2 79953 #### [facility],[address] [place], [place] [address] PLATELET 251 x10EE3/UL Normal 150 - 450 [facility] Comment on above: Performed By: #### 2 13696 #### [facility],[address] [place] [address] Platelet mean volume (Bld) [Entitic vol] 7.8 fL Normal 6.4 - 10.5 [facility] Comment on above: Result Comment: AUTO MATED DIFFERENTIAL Performed By: #### 2 30491 #### [facility],[address] [place] [address] 91576 RBC 4.20 x 10EE6/UL Low 4.50 - 6.00 [facility] Comment on above: Performed By: #### 2 07678 #### [facility],[address] [place] [address] 02527 WBC 5.8 x 10EE3/UL Normal 4.5 - 10.8 [facility] Comment on above: Performed By: #### 2 18156 #### [facility],[address] [place] [address] 13803 CMP with eGFRon 09-30-2024 AGE 28 years Normal [facility] Comment on above: Performed By: #### 2 47819 #### [facility],[address] [place] [address] 13563 Albumin [Mass/Vol] 3.2 g/dL Low 3.4 - 5.0 [facility] Comment on above: Performed By: #### 2 98681 #### [facility],[address] [place] [address] 90467 Albumin/Globulin [Mass ratio] 1.0 {ratio} Normal 0.9 - 1.6 [facility] Comment on above: Performed By: #### 2 72174 #### [facility],[address] [place] [address] 33563 ALK PHOS 72 U/L Normal 46 - 116 [facility] Comment on above: Performed By: #### 2 19947 #### [facility],[address] [place] [address] 29492 ALT [Catalytic activity/Vol] 69 U/L High 16 - 63 [facility] Comment on above: Performed By: #### 2 60294 #### [facility],[address] [place] [address] 28298 Anion gap [Moles/Vol] 14 mmol/L Normal 10 - 20 [facility] Comment on above: Performed By: #### 2 68861 #### [facility],[address] [place] [address] 14295 AST [Catalytic activity/Vol] 38 U/L High 15 - 37 [facility] Comment on above: Performed By: #### 2 86465 #### [facility],[address] [place] [address] 92229 B/C RATIO 8 ratio Normal 0 - 30 [facility] Comment on above: Performed By: #### 2 85969 #### [facility],[address] [place] [address] 81575 Bilirubin [Mass/Vol] 0.3 mg/dL Normal 0.2 - 1.0 [facility] Comment on above: Performed By: #### 2 52907 #### [facility],[address] [place] [address] 90114 Calcium [Mass/Vol] 8.2 mg/dL Low 8.5 - 10.1 [facility] Comment on above: Performed By: #### 2 68860 #### [facility],[address] [place] [address] 73115 Chloride [Moles/Vol] 106 mmol/L Normal 98 - 107 [facility] Comment on above: Performed By: #### 2 96109 #### [facility],[address] [place] [address] 00465 CMP with eGFR Normal [facility] Comment on above: Result Comment: COMP REHENSIVE METABOLIC PANEL Performed By: #### 2 78987 #### [facility],[address] [place] [address] 86605 CO2 [Moles/Vol] 27.7 mmol/L Normal 21.0 - 32.0 [facility] Comment on above: Performed By: #### 2 19832 #### [facility],[address] [place] [address] 89131 Creatinine [Mass/Vol] 0.79 mg/dL Normal 0.70 - 1.30 [facility] Comment on above: Performed By: #### 2 70565 #### [facility],[address] [place] [address] 93248 GFR/1.73 sq M.predicted among non-blacks MDRD (S/P/Bld) [Vol rate/Area] mL/min/{1.73_m2} Normal 60 - 999 [facility] Comment on above: Performed By: #### 2 19964 #### [facility],[address] [place] [address] 56012 Result Comment: ACCO RDING TO THE NATIONAL KIDNEY DISEASE EDUCATION PROGRAM(NKDE), A NORMAL eGFR IS A VALUE GREATER THAN OR EQUAL TO 60 ML/MIN/1.73 SQ METERS. CHRONIC KIDNEY DISEASE: <60mL/MIN/1.73 SQ METERS KIDNEY FAILURE: <15mL/MIN/1.73 SQ METERS THIS TEST SHOULD ONLY BE USED FOR PATIENTS 18 YEARS OF AGE AND OLDER. Globulin (S) [Mass/Vol] 3.1 g/dL Normal 1.5 - 3.8 [facility] Comment on above: Performed By: #### 2 98612 #### [address] [address] Glucose [Mass/Vol] 106 mg/dL Normal 74 - 106 [facility] Comment on above: Performed By: #### 2 49379 #### [facility],[address] [place] [address] 02580 Potassium [Moles/Vol] 3.7 mmol/L Normal 3.5 - 5.1 [facility] Comment on above: Performed By: #### 2 88221 #### [facility],[address] [place] [address] 80135 Protein [Mass/Vol] 6.3 g/dL Low 6.4 - 8.2 [facility] Comment on above: Performed By: #### 2 64028 #### [facility],[address] [place] [address] 54639 Sodium [Moles/Vol] 144 mmol/L Normal 136 - 145 [facility] Comment on above: Performed By: #### 2 33673 #### [address] [address] Urea nitrogen [Mass/Vol] 6 mg/dL Low 7 - 18 [facility] Comment on above: Performed By: #### 2 69317 #### [facility],[address] [place] [address],[facility] [address] DRUG SCREEN URINE MEDICon AMPHETAMINES Negative Normal [facility] Comment on above: Performed By: #### 2 83504 ####[facility],[address] [place] [address],[facility] [address] B-DIAZEPINES Positive Normal [facility] Comment on above: Performed By: #### 2 20361 ####[facility],[address] [facility] [address] BARBITURATES Positive Normal [facility] Comment on above: Performed By: #### 2 38299 ####[facility],[address] [place] [address],[facility] [address] COCAINE Negative Normal [facility] Comment on above: Performed By: #### 2 08160 ####[facility],[address] [place] [address] 73977 DRUG SCREEN URINE MEDIC Normal [facility] Comment on above: Result Comment: DRUG SCREEN - URINE Performed By: #### 2 63032 ####[facility],[address] [facility] [address] METHADONE Negative Normal [facility] Comment on above: Performed By: #### 2 78474 ####[facility],[address] [place] [address] 67363 OPIATES Negative Normal [facility] Comment on above: Performed By: #### 2 14254 ####[facility],[address] [facility],[place] [address] PCP Negative Normal [facility] Comment on above: Performed By: #### 2 71882 ####[facility],[address] [facility] [address] THC Negative Normal [facility] Comment on above: Result Comment: CHACORTA ENTS RECEIVING PROTON PUMP INHIBITORS MAY DEMONSTRATE FALSE POSITIVE THC/CANNABINOID RESULTS. AN ALTERNATIVE CONFIRMATORY METHOD SHOULD BE CONSIDERED TO VERIFY POSITIVE RESULTS. 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 Field Services Director at the patient's bedside (crisis). -- 01:16 09/30/24 EDT Sandra Olguin R.N. DISPOSITION / DISCHARGE Departure time: 01:32 09/30/2024. Condition at departure: improved. No learning barriers present. Discharge instructions provided and reviewed with the patient. Reviewe (more content not included)... Normal [facility] ED ORDER SHEET (CPOE ONLY)on 09-30-2024 ED ORDER SHEET (CPOE ONLY) Order Sheet - KADE BARRERA, : 1995, , Order Sheet [address] [address] [id number] 09/29/2024 Patient: KADE BARRERA Sex: Male : [...] (09/30/2024 02:22 EDT)] 2 of 2 Normal [facility] ED PHYSICIAN CLINICAL REPORT on 09-30-2024 ED PHYSICIAN CLINICAL REPORT [place] - KADE BARRERA, : 1995, , Physician Clinical [place] [address] [place] [address] [id number] 09/29/2024 22:27:00 Patient: KADE BARRERA Sex: Male [...] 1.50 - 7.10 Final EDT 09/29/2024 23:09 Mcpherson # 0.51 x10/UL 0.20 - 1.00 Fin (more content not included)... Normal [facility] ED SUPER BILLon 09-30-2024 ED SUPER BILL [facility] - KADE BARRERA, : 1995, , [address] [address] [id number] 09/29/2024 Patient: KADE BARRERA Sex: Male : 1995 Age: 28y Item Professional Category Description Facility Code Code Quantity Fee Total Nurse/E/M EMERGENCY [id number] 1 $0.00 $0.00 DEPARTMENT VISIT MODERATE SEVERITY (26498-84) Grand Total $0.00 Providers Rachel Bob D.O. Chief Complaint SUICIDAL THOUGHTS. Principal Diagnosis Anxiety reaction. Uncomplicated alcohol intoxication.No alcohol intoxication with delirium or alcohol dependence. 1 of 2 [facility] - KADE BARRERA, : 1995, , ICD-10 Codes F41.1: Generalized anxiety disorder F10.120: Alcohol abuse with intoxication, uncomplicated F10.129: Alcohol abuse with intoxication, unspecified 2 of 2 [facility] ED VISIT SUMMARYon ED VISIT SUMMARY Visit Overview - KADE BARRERA, : 1995, , Visit [address] [address] [id number] 09/29/2024 Patient: KADE BARRERA Sex: Male : [...] OR ALCOHOL DEPENDENCE 3 of 3 Normal [facility] ED VITALS FLOW SHEETon 09-30 ED VITALS FLOW SHEET Vitals - KADE GONZALEZ, : 1995, , Vital Sign Flow Sheet [address] [place] [id number] 09/29/2024 Patient: KADE BARRERA Sex: Male : 1995 Age: 28y Measurements Wt: 78.9 kg, Ht/Pedro: 71.0 in, BMI: 24.27 Measured Time BP MAP HR RR O2Sat ETCO2 Temp Pain [facility] RTS 22:37 09/29/2024 142/77 99 104 16 95% 98.7 F 0 1 of 1 Normal [facility] SALICYLATEon 09-30-2024 SALICYLATE 3.2 mg/dl Normal 2.8 - 20.0 [facility] Comment on above: Result Comment: *PAT IENTS TREATED WITH SULFASALAZINE MAY GENERATE A FALSE HIGH RESULT FOR SALICYLATE. *PATIENTS TREATED WITH SULFAPYRIDINE MAY GENERATE A FALSE LOW RESULT FOR SALICYLATE. Performed By: #### 2 38804 #### [facility],[address] [place], [place] [address] ACETAMINOPHENon 09-29-2024 Acetaminophen [Mass/Vol] ug/mL Low 10.0 - 30.0 [facility] Comment on above: Performed By: #### 2 18773 #### [facility],[address] [place], [place] [address] ALCOHOL-BLOOD MEDICALon 09-11 Ethanol [Mass/Vol] 138 mg/dL High 0 - 50 [facility] Comment on above: Performed By: #### 2 74498 ####[facility],[address] [place] [address] 93527 CBC + DIFFon 09-29-2024 Baso # 0.02 x10EE3/UL Normal 0.00 - 0.10 [facility] Comment on above: Performed By: #### 2 95048 ####[facility],[address] [place] [address] 05208 Basophils/100 WBC (Bld) 0.3 % Normal 0.0 - 2.0 [facility] Comment on above: Performed By: #### 2 56221 ####[facility],[address] [place] [address] CBC + DIFF Normal [facility] Comment on above: Result Comment: CBC- COMPLETE BLOOD COUNT Performed By: #### 2 76397 ####[facility],[address] [place] [address] EO # 0.13 x10EE3/UL Normal 0.00 - 0.50 [facility] Comment on above: Performed By: #### 2 83967 ####[facility],[address] [place] [address] 13771 Eosinophils/100 WBC (Bld) 2.1 % Normal 0.0 - 7.0 [facility] Comment on above: Performed By: #### 2 87258 ####[facility],[address] [place], [place] [address] Erythrocyte distribution width (RBC) [Ratio] 12.0 % Normal 12.0 - 15.6 [facility] Comment on above: Performed By: #### 2 87515 ####[facility],[address] [place] [address] Hematocrit (Bld) [Volume fraction] 42.5 % Normal 40.0 - 52.0 [facility] Comment on above: Performed By: #### 2 15228 ####[facility],[address] [place] [address] 99031 Hemoglobin (Bld) [Mass/Vol] 15.5 g/dL Normal 13.0 - 17.5 [facility] Comment on above: Result Comment: H AN D H REPEATED Performed By: #### 2 14289 ####[facility],[address] [place], [place] [address] Lymph # 1.71 x10EE3/UL Normal 0.80 - 2.80 [facility] Comment on above: Performed By: #### 2 37473 ####[facility],[address] [place] [address] 84757 Lymphocytes/100 WBC (Bld) 27.1 % Normal 20.0 - 45.0 [facility] Comment on above: Performed By: #### 2 56386 ####[facility],[address] [place] [address] 50231 MANUAL DIFF N/A Normal [facility] Comment on above: Performed By: #### 2 94652 ####[facility],[address] [place] [address] MCH (RBC) [Entitic mass] 36 pg High 27 - 33 [facility] Comment on above: Performed By: #### 2 53690 ####[place] [address] MCHC 36 X10 3 Normal 32 - 36 [facility] Comment on above: Performed By: #### 2 06193 ####[facility],[address] [place] [address] 86925 MCV (RBC) [Entitic vol] 100 fL High 81 - 98 [facility] Comment on above: Performed By: #### 2 38811 ####[facility],[address] [place] [address] 26118 Mcpherson # 0.51 x10EE3/UL Normal 0.20 - 1.00 [facility] Comment on above: Performed By: #### 2 79882 ####[address] [address] MONOS % 8.1 % Normal 0.0 - 10.0 [facility] Comment on above: Performed By: #### 2 32194 ####[facility],[address] [place] [address] 6[address] Morphology Isacc (Bld) [Interp] N/A Normal [facility] Comment on above: Performed By: #### 2 62462 ####[facility],[address] [place] [address] 71278 Neut # 3.94 x10EE3/UL Normal 1.50 - 7.10 [facility] Comment on above: Performed By: #### 2 39357 ####[facility],[address] [place] [address] 27142 Neutrophils/100 WBC (Bld) 62.4 % Normal 46.0 - 76.0 [facility] Comment on above: Performed By: #### 2 92875 ####[facility],[address] [place] [address] 76197 PLATELET 244 x10EE3/UL Normal 150 - 450 [facility] Comment on above: Performed By: #### 2 76766 ####[address] [address] Platelet mean volume (Bld) [Entitic vol] 7.6 fL Normal 6.4 - 10.5 [facility] Comment on above: Result Comment: AUTO MATED DIFFERENTIAL Performed By: #### 2 71306 ####[facility],[address] [place] [address] 18118 RBC 4.27 x 10EE6/UL Low 4.50 - 6.00 [facility] Comment on above: Performed By: #### 2 70558 ####[facility],[address] [place] [address] 80515 WBC 6.3 x 10EE3/UL Normal 4.5 - 10.8 [facility] Comment on above: Performed By: #### 2 40531 ####[facility],[address] [place] [address] 72419 CMP with eGFRon 09-29-2024 AGE 28 years Normal [facility] Comment on above: Performed By: #### 2 20995 #### [facility],[address] [place] [address] 96079 Albumin [Mass/Vol] 3.3 g/dL Low 3.4 - 5.0 [facility] Comment on above: Performed By: #### 2 10691 #### [facility],[address] [place] [address] 38118 Albumin/Globulin [Mass ratio] 1.0 {ratio} Normal 0.9 - 1.6 [facility] Comment on above: Performed By: #### 2 90941 #### [facility],[address] [place] [address] 79941 ALK PHOS 75 U/L Normal 46 - 116 [facility] Comment on above: Performed By: #### 2 85527 #### [facility],[address] [place], [place] [address] ALT [Catalytic activity/Vol] 76 U/L High 16 - 63 [facility] Comment on above: Performed By: #### 2 99163 #### [facility],[address] [place], [place] [address] Anion gap [Moles/Vol] 11 mmol/L Normal 10 - 20 [facility] Comment on above: Performed By: #### 2 52794 #### [facility],[address] [place] [address] 37612 AST [Catalytic activity/Vol] 49 U/L High 15 - 37 [facility] Comment on above: Performed By: #### 2 41424 #### [facility],[address] [place] [address] 16306 B/C RATIO 6 ratio Normal 0 - 30 [facility] Comment on above: Performed By: #### 2 69705 #### [facility],[address] [place] [address] 36740 Bilirubin [Mass/Vol] 0.4 mg/dL Normal 0.2 - 1.0 [facility] Comment on above: Performed By: #### 2 00547 #### [facility],[address] [place] [address] 37858 Calcium [Mass/Vol] 8.6 mg/dL Normal 8.5 - 10.1 [facility] Comment on above: Performed By: #### 2 30256 #### [facility],[address] [place], [place] [address] Chloride [Moles/Vol] 105 mmol/L Normal 98 - 107 [facility] Comment on above: Performed By: #### 2 49663 #### [facility],[address] [place], [place] [address] CMP with eGFR Normal [facility] Comment on above: Result Comment: COMP REHENSIVE METABOLIC PANEL Performed By: #### 2 54894 #### [place] [address] CO2 [Moles/Vol] 26.4 mmol/L Normal 21.0 - 32.0 [facility] Comment on above: Performed By: #### 2 64697 #### [facility],[address] [place] [address] Creatinine [Mass/Vol] 0.64 mg/dL Low 0.70 - 1.30 [facility] Comment on above: Performed By: #### 2 25682 #### [facility],[address] [place] [address] GFR/1.73 sq M.predicted among non-blacks MDRD (S/P/Bld) [Vol rate/Area] mL/min/{1.73_m2} Normal 60 - 999 [facility] Comment on above: Performed By: #### 2 12739 #### [place] [address] Result Comment: ACCO RDING TO THE NATIONAL KIDNEY DISEASE EDUCATION PROGRAM(NKDE), A NORMAL eGFR IS A VALUE GREATER THAN OR EQUAL TO 60 ML/MIN/1.73 SQ METERS. CHRONIC KIDNEY DISEASE: <60mL/MIN/1.73 SQ METERS KIDNEY FAILURE: <15mL/MIN/1.73 SQ METERS THIS TEST SHOULD ONLY BE USED FOR PATIENTS 18 YEARS OF AGE AND OLDER. Globulin (S) [Mass/Vol] 3.4 g/dL Normal 1.5 - 3.8 [facility] Comment on above: Performed By: #### 2 58994 #### [facility],[address] [place] [address] 43061 Glucose [Mass/Vol] 116 mg/dL High 74 - 106 [facility] Comment on above: Performed By: #### 2 60330 #### [facility],[address] [place] [address] 42589 Potassium [Moles/Vol] 3.7 mmol/L Normal 3.5 - 5.1 [facility] Comment on above: Performed By: #### 2 40984 #### [facility],[address] [place] [address] 98605 Protein [Mass/Vol] 6.7 g/dL Normal 6.4 - 8.2 [facility] Comment on above: Performed By: #### 2 73021 #### [facility],[address] [place] [address] 64447 Sodium [Moles/Vol] 139 mmol/L Normal 136 - 145 [facility] Comment on above: Performed By: #### 2 94267 ####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 GFR/1.73 sq M.predicted (S/P/Bld) [Vol rate/Area] - PINF [facility] Comment on above: Calculation based on the Chronic Kidney Disease Epidemiology Collaboration (CKD-EPI) equation refit without adjustment for race Glucose [Mass/Vol] 113 mg/dL High 74 - 100 mg/dL [facility] Potassium [Moles/Vol] 3.5 mmol/L 3.5 - 5.1 mmol/L [facility] Comment on above: Plasma potassium steph ues may be up to 0.5 mmol/L lower than serum values. Sodium [Moles/Vol] 137 mmol/L 136 - 145 mmol/L [facility] Urea nitrogen [Mass/Vol] 5 mg/dL Low 8 - 21 mg/dL [facility] CBC W Auto Differential pane l (Bld)Ordered By: Ludwin Cordova on 06-11-2024 Basophils (Bld) [#/Vol] 0.1 10*3/uL 0.0 - 0.2 10*3/uL [facility] Basophils/100 WBC (Bld) 1.9 % 0.0 - 2.0 % [facility] Eosinophils (Bld) [#/Vol] 0.1 10*3/uL 0.0 - 0.5 10*3/uL [facility] Eosinophils/100 WBC (Bld) 2.3 % 0.0 - 6.0 % [facility] Erythrocyte distribution width (RBC) [Ratio] 12.7 % 11.5 - 15.0 % [facility] Hematocrit (Bld) [Volume fraction] 41.5 % 40.0 - 52.0 % [facility] Hemoglobin (Bld) [Mass/Vol] 15.4 g/dL 13.0 - 18.0 g/dL [facility] Immature granulocytes (Bld) [#/Vol] 0 10*3/uL NINF - 0.1 10*3/uL [facility] Immature granulocytes/100 WBC (Bld) 0.2 % 0.0 - 2.0 % [facility] Interpretation and review of laboratory results Abnormal [facility] Lymphocytes (Bld) [#/Vol] 1.8 10*3/uL 1.0 - 4.3 10*3/uL [facility] Lymphocytes/100 WBC (Bld) 34.8 % 15.0 - 45.0 % [facility] MCH (RBC) [Entitic mass] 33.7 pg 26.0 - 34.0 pg [facility] MCHC (RBC) [Mass/Vol] 37.1 % High 30.5 - 36.0 % [facility] MCV (RBC) [Entitic vol] 90.8 fL 77.0 - 99.0 fL [facility] Monocytes (Bld) [#/Vol] 0.5 10*3/uL 0.0 - 0.9 10*3/uL [facility] Monocytes/100 WBC (Bld) 9.1 % 5.0 - 13.0 % [facility] Neutrophils (Bld) [#/Vol] 2.7 10*3/uL 1.8 - 7.5 10*3/uL [facility] Neutrophils/100 WBC (Bld) 51.7 % 38.0 - 82.0 % [facility] Nucleated RBC/100 WBC (Bld) [Ratio] 0 % [facility] Platelet mean volume (Bld) [Entitic vol] 9.8 fL 9.0 - 12.7 fL [facility] Platelets (Bld) [#/Vol] 226 10*3/uL 140 - 440 10*3/uL [facility] RBC (Bld) [#/Vol] 4.57 10*6/uL 4.40 - 5.9 0 10*6/uL [facility] WBC (Bld) [#/Vol] 5.2 10*3/uL 3.6 - 10.7 10*3/uL [facility] CBC WITH AUTO DIFFERENTIALon 06-11-2024 Basophils (Bld) [#/Vol] 0.1 10*3/uL Normal 0.0-0.2 [facility] Comment on above: Performed By: #### L [id number] #### Personal Care Service Provider: DIONNA JIMENEZ ([phone]) [facility] ([facility]) [address] [place] [address] Basophils/100 WBC (Bld) 1.9 % Normal 0.0-2.0 [facility] Comment on above: Performed By: #### L [id number] #### Personal Care Service Provider: DIONNA JIMENEZ ([phone]) [facility]) [address] [place] [address] Eosinophils (Bld) [#/Vol] 0.1 10*3/uL Normal 0.0-0.5 [facility] Comment on above: Performed By: #### L [id number] #### Personal Care Service Provider: DIONNA JIMENEZ ([phone]) [facility]) [address] [place] [address] Eosinophils/100 WBC (Bld) 2.3 % Normal 0.0-6.0 [facility] Comment on above: Performed By: #### L [id number] #### Personal Care Service Provider: DIONNA JIMENEZ ([phone]) [address] Erythrocyte distribution width (RBC) [Ratio] 12.7 % Normal 11.5-15.0 [facility] Comment on above: Performed By: #### L [id number] #### Personal Care Service Provider: DIONNA JIMENEZ ([phone]) [address] Hematocrit (Bld) [Volume fraction] 41.5 % Normal 40.0-52.0 [facility] Comment on above: Performed By: #### L [id number] #### Personal Care Service Provider: DIONNA JIMENEZ ([phone]) [address] Hemoglobin (Bld) [Mass/Vol] 15.4 g/dL Normal 13.0-18.0 [facility] Comment on above: Performed By: #### L [id number] #### Personal Care Service Provider: DIONNA JIMENEZ ([phone]) [address] IMMATURE GRANS % 0.2 % Normal 0.0-2.0 [facility] Comment on above: Performed By: #### L [id number] #### Personal Care Service Provider: DIONNA [phone]) [facility]) [address] [place] [address] IMMATURE GRANS ABSOLUTE 0.0 10*3/uL Normal <0.1 [facility] Comment on above: Performed By: #### L [id number] #### Personal Care Service Provider: DIONNA JIMENEZ ([phone]) [facility]) [address] [place] [address] Lymphocytes (Bld) [#/Vol] 1.8 10*3/uL Normal 1.0-4.3 [facility] Comment on above: Performed By: #### L [id number] #### Personal Care Service Provider: DIONNA JIMENEZ ([phone]) [facility]) [address] [place] [address] Lymphocytes/100 WBC (Bld) 34.8 % Normal 15.0-45.0 [facility] Comment on above: Performed By: #### L [id number] #### Personal Care Service Provider: DIONNA JIMENEZ ([phone]) [facility]) [address] [place] [address] MCH (RBC) [Entitic mass] 33.7 pg Normal 26.0-34.0 [facility] Comment on above: Performed By: #### L [id number] #### Personal Care Service Provider: DIONNA JIMENEZ ([phone]) [facility]) [address] [place] [address] MCHC 37.1 % High 30.5-36.0 [facility] Comment on above: Performed By: #### L [id number] #### Personal Care Service Provider: DIONNA JIMENEZ ([phone]) [facility]) [address] [place] [address] MCV (RBC) [Entitic vol] 90.8 fL Normal 77.0-99.0 S [facility] Comment on above: Performed By: #### L [id number] #### Personal Care Service Provider: DIONNA JIMENEZ ([phone]) [facility]) [address] [place] [address] Monocytes (Bld) [#/Vol] 0.5 10*3/uL Normal 0.0-0.9 [facility] Comment on above: Performed By: #### L [id number] #### Personal Care Service Provider: DIONNA JIMENEZ ([phone]) [facility] ([facility]) [address] [place] [address] Monocytes/100 WBC (Bld) 9.1 % Normal 5.0-13.0 [facility] Comment on above: Performed By: #### L [id number] #### Personal Care Service Provider: DIONNA JIMENEZ ([phone]) [facility] ([facility]) [address] [place] [address] NEUTROPHILS ABSOLUTE 2.7 10*3/uL Normal 1.8-7.5 [facility] Comment on above: Performed By: #### L [id number] #### Personal Care Service Provider: DIONNA JIMENEZ ([phone]) [facility] ([facility]) [address] [place] [address] Neutrophils/100 WBC (Bld) 51.7 % Normal 38.0-82.0 [facility] Comment on above: Performed By: #### L [id number] #### Personal Care Service Provider: DIONNA JIMENEZ ([phone]) [facility] ([facility]) [address] [place] [address] NRBC 0.0 /100 WBCs Normal 0.0-2.0 [facility] Comment on above: Performed By: #### L [id number] #### Personal Care Service Provider: DIONNA JIMENEZ ([phone]) [facility] ([facility]) [address] [place] [address] Platelet mean volume (Bld) [Entitic vol] 9.8 fL Normal 9.0-12.7 [facility] Comment on above: Performed By: #### L [id number] #### Personal Care Service Provider: DIONNA JIMENEZ ([phone]) [facility] ([facility]) [address] [place] [address] Platelets (Bld) [#/Vol] 226 10*3/uL Normal 140-440 [facility] Comment on above: Performed By: #### L [id number] #### Personal Care Service Provider: DIONNA JIMENEZ ([phone]) [facility] ([facility]) [address] [place] [address] RBC (Bld) [#/Vol] 4.57 10*6/uL Normal 4.40-5.90 [facility] Comment on above: Performed By: #### L [id number] #### Personal Care Service Provider: DIONNA JIMENEZ ([phone]) [facility] ([facility]) [address] [place] [address] WBC (Bld) [#/Vol] 5.2 10*3/uL Normal 3.6-10.7 [facility] Comment on above: Performed By: #### L [id number] #### Personal Care Service Provider: DIONNA JIMENEZ ([phone]) [facility] ([facility]) [address] [place] [address] CKon 06-11-2024 CK [Catalytic activity/Vol] 247 U/L High 30-185 [facility] Comment on above: Performed By: #### L AB15, [id number], [id number], LAB62 ####Personal Care Service Provider: DIONNA JIMENEZ ([phone])[facility] ([facility])[address] [place] [address] DRUGS OF ABUSEon 06-11-2024 AMPHETAMINE SCREEN Positive Normal [facility] Comment on above: Performed By: #### L [id number] ####Personal Care Service Provider: DIONNA JIMENEZ ([phone])[facility])[address] [place] [address] BARBITURATES SCREEN Positive Normal [facility] Comment on above: Performed By: #### L [id number] ####Personal Care Service Provider: DIONNA JIMENEZ ([phone])[facility])[address] [place] [address] BENZODIAZEPINE SCREEN Negative Normal [facility] Comment on above: Performed By: #### L [id number] ####Personal Care Service Provider: DIONNA JIMEENZ ([phone])[facility] ([facility])[address] [place] [address] COCAINE METAB. SCREEN Negative Normal [facility] Comment on above: Performed By: #### L [id number] ####Personal Care Service Provider: DIONNA JIMENEZ ([phone])[facility])[address] [place] [address] FENTANYL SCREEN, UR QUAL Negative Normal [facility] Comment on above: Result Comment: MARTA [...] under separate order. Performed By: #### L [id number] ####Personal Care Service Provider: DIONNA JIMENEZ ([phone])[facility] ([facility])[address] [place] [address] METHADONE SCREEN Negative Normal [facility] Comment on above: Performed By: #### L [id number] ####Personal Care Service Provider: DIONNA JIMENEZ ([phone])[facility] ([facility])[address] [place] [address] OPIATES SCREEN Negative Normal [facility] Comment on above: Performed By: #### L [id number] ####Personal Care Service Provider: DIONNA JIMENEZ ([phone])[facility] ([facility])[address] [place] [address] OXYCODONE SCREEN Negative Normal [facility] Comment on above: Performed By: #### L [id number] ####Personal Care Service Provider: DIONNA JIMENEZ ([phone])[facility] ([facility])[address] [place] [address] PHENCYCLIDINE SCREEN Negative Normal [facility] Comment on above: Performed By: #### L [id number] ####Personal Care Service Provider: DIONNA JIMENEZ ([phone])[facility] ([address] ECG 12-LEADon 06-11-2024 ECG 12-LEAD IMPRESSION: Pacemaker spikes or artifacts Sinus rhythm Electronically Signed On 06-11-2024 10:13:28 EDT by Mike Wright [facility] ED Nursing Noteon 06-11-2024 ED Nursing Note Report given to Larry broderick RN. [facility] ED Nursing Note Pt ambulated independently back and forth to the restroom. 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 Pt currently on night monitor; sts that the pain starts in the L shoulder and radiates into the neck and then jaw. [facility] ED Nursing Note Pt heading to [facility] transport. [facility] ED Provider Noteon ED Provider Note EMERGENCY DEPARTMENT ENCOUNTER Pt Name: Kade Barrera Birthdate 1995 Date of evaluation: 06/11/2024 ED Provider: Easton Dahl, PUBLIC SPEAKING COACH - BEDSPREAD CUTTER HAND Patient seen independently within my scope of [...] Response: Oriented Best Motor Response: Follows commands [place] Coma Scale Score: 15 HEART Score History: [...] noted Psychia (more content not included)... Normal [facility] ETHANOLon 06-11-2024 ETHANOL IN SER/PLAS <10 Normal <10 [facility] Comment on above: Result Comment: [employer] COMMENTS: CCO depression is seen >100 mg/dL. NOTE: This result is for medical treatment only. Analysis performed using non-forensic procedures. Performed By: #### L [id number], [id number], LAB46, LAB62 ####Personal Care Service Provider: DIONNA JIMENEZ ([phone])[facility] ([address] Ethanol (Bld) [Mass/Vol]on 0 06-11-2024 Ethanol [Mass/Vol] mg/dL NINF - 10 mg/dL [facility] Interpretation and review of laboratory results Normal [facility] CCO depression is se en >100 mg/dL. NOTE: This result is for medical treatment only. Analysis performed using non-forensic procedures. [facility] HIGH SENSITIVITY TROPONIN, S ERIAL BASELINEon 06-11-2024 TROPONIN HS SERIAL BASELINE <3 Normal <=35 [facility] Comment on above: Result Comment: In i ndividuals presenting with symptoms > 2h, a baseline troponin <= 5 ng/L suggests acute cardiac injury is unlikely and further serial testing is generally not indicated. Performed By: #### L [id number], [id number], LAB46, LAB62 ####Personal Care Service Provider: DIONNA JIMENEZ ([phone])[facility] ([facility])[address] [place] [address] Laboratory - Chemistry and C hemistry - challengeon 06-11-2024 CK [Catalytic activity/Vol] 247 U/L High 30 - 185 U/L [facility] Laboratory - Drug toxicology on 06-11-2024 Amphetamines Screen method >1000 ng/mL Ql (U) Positive [facility] Barbiturates Screen method >200 ng/mL Ql (U) Positive [facility] Benzodiazepines Ql (U) Negative [facility] Methadone Screen Ql (U) Negative [facility] Opiates Screen Ql (U) Negative [facility] oxyCODONE Ql (U) Negative [facility] Phencyclidine Ql (U) Negative [facility] No Panel InformationOrdered By: Mike Wright on 06-11-2024 P [place] 67 degrees [email or web address] Work Phone: DE Interval 139 ms [email or web address] Work Phone: QRS [place] 80 degrees [email or web address] Work Phone: QRSD Interval 95 ms [email or web address] Work Phone: QT Interval 334 ms [email or web address] Work Phone: QTC Interval 418 ms [email or web address] Work Phone: [phone] T Wave [place] 52 degrees [email or web address] Work Phone: [email or web address] Work Phone: No Panel Informationon 06-11 Pacemaker spikes or artifacts Sinus rhythm Electronically Signed On 06-11-2024 10:13:28 EDT by Mike Wright CV Mike Angela MD - 06/11/2024 IMPRESSION: Pacemaker spikes or artifacts Sinus rhythm Electronically Signed On 06-11-2024 10:13:28 EDT by Miek Wright [facility] Interpretation and review of laboratory results Normal [facility] Troponin HS Serial Baseline ng/L NINF - 35 ng/L [facility] Comment on above: In individuals prese nting with symptoms > 2h, a baseline troponin <= 5 ng/L suggests acute cardiac injury is unlikely and further serial testing is generally not indicated. [facility] Interpretation and review of laboratory results Abnormal [facility] COCAINE METAB. SCREEN Negative [facility] FENTANYL SCREEN, UR QUAL Negative [facility] The expected value f or all [...] is needed, request confirmation under separate order. [facility] Vital signsOrdered By: Mike Wright on 06-11-2024 Heart rate 94 /min bpm [facility] Work Phone: XR Chest 2 Viewson 5 1. No evidence of an acute cardiopulmonary process. Report Dictated on Electronically Signed By: Jovanni Garcia MD Electronically Signed Date/Time: 06/11/2024 5:00 AM EDT [facility] Patient Name: KADE BARRERA : 1995 [id number] Exam Date/Time: 06/11/2024 04:41 Procedure: XR CHEST 2 VIEWS Ordering Provider: DAHL STEPHEN Reason For Exam: Chest pain CLINICAL INFORMATION: Chest pain. PA and lateral views of the chest are provided without comparison. FINDINGS: The cardiac silhouette and mediastinum are within normal limits. The lungs are free of infiltrate or pleural effusion. The visualized bones and soft tissues are grossly unremarkable. [facility] Jovanni Garcia MD - 06/11/2024 [...] Electronically Signed Date/Time: 06/11/2024 5:00 AM EDT [facility] Radiology Study observation (narrative) [facility] XR Chest 2 ViewsOrdered By: Jovanni Garcia on 06-11-2024 [facility] Work Phone: ED Nursing Noteon 06-10-2024 ED Nursing Note Pt did not want to w ait to be seen. Pt seen walking out of ED. Pt A&OX4. Steady gait noted. No IV access obtained during visit. Normal [facility] ED Nursing Note Pt states he called poison control due to mixing alcohol and ice. Pt states he has been drinking beer all day. Normal [facility] ED Provider Noteon ED Provider Note Patient left without being seen after initial triage by nursing staff. As such, I did not participate in the care of this patient. Danita Barcenas PA-C 06/11/24 0118 Normal [facility] AMB POC COVID-19 COVon 01-27 Interpretation and review of laboratory results Normal [facility] SARS-CoV-2 (COVID-19) RNA DOMINIC+non-probe Ql (Nph) Negative Negative [facility] AMB POC RAPID INFLUENZA DNA/ RNAon 01-28-2024 Inflenza A Ag Positive [facility] Influenza B Ag Negative [facility] Interpretation and review of laboratory results Abnormal [facility] Office Visiton 01-28-2024 Follow-up visit [id number] Kade Barrera 1995 M Date Provider Department Center 01/28/2024 [id number]-J[facility]BUMJOCHRISTY [facility] None No family history on file Level of Service:70640 DE OFFICE/OUTPATIENT ESTABLISHED LOW MDM 20 MIN Reason for Visit and Comments: URI [115] - Cough /Body ache/ migraine/stuffy nose /pt stated that he started new medication yesterday and that when he started feeling sick. Normal [facility] Progress Noteon 01-28-2024 Progress Note [facility] [address] [facility] [address] Dept: [phone] Dept Loc: [phone] Subjective Kade Barrera is a 28 y.o. [...] as words (more content not included)... Normal [facility] .Auto Diffon 06-20-2023 Basophil, Absolute 0.1 10 3/mcL Normal 0.0-0.2 [facility] ([place]) Comment on above: Performed By: #### A RIVERA IBARRA, CBC, ALC, ADIFF, CMP, GFR #### [address] [address] Basophils/100 WBC (Bld) 1.0 % Normal 0.0-2.5 A [facility] ([place]) Comment on above: Performed By: #### A RIVERA IBARRA, CBC, ALC, ADIFF, CMP, GFR #### [address] [address] Eosinophil, Absolute 0.0 10 3/mcL Normal 0.0-0.4 [facility] ([place]) Comment on above: Performed By: #### A RIVERA IBARRA, CBC, ALC, ADIFF, CMP, GFR #### [address] [address] Eosinophils/100 WBC (Bld) 0.5 % Normal 0.0-7.0 [facility] ([place]) Comment on above: Performed By: #### A RIVERA IBARRA, CBC, ALC, ADIFF, CMP, GFR #### [address] [address] Lymphocyte, Absolute 2.4 10 3/mcL Normal 0.8-3.9 [facility] ([place] Comment on above: Performed By: #### A RIVERA IBARRA, CBC, ALC, ADIFF, CMP, GFR #### [address] [address] Lymphocytes/100 WBC (Bld) 29.4 % Normal 10.0-50.0 [facility] ([place] Comment on above: Performed By: #### A RIVERA IBARRA, CBC, ALC, ADIFF, CMP, GFR #### [address] [address] Monocyte, Absolute 0.6 10 3/mcL Normal 0.2-1.0 [facility] ([place] Comment on above: Performed By: #### A RIVERA IBARRA, CBC, ALC, ADIFF, CMP, GFR #### [address] [address] Monocytes/100 WBC (Bld) 7.6 % Normal 1.7-13.0 A [facility] ([place] Comment on above: Performed By: #### A RIVERA IBARRA, CBC, ALC, ADIFF, CMP, GFR #### [address] [address] Neutrophils/100 WBC (Bld) 61.5 % Normal 37.0-80.0 [facility] ([place]) Comment on above: Performed By: #### A RIVERA IBARRA, CBC, ALC, ADIFF, CMP, GFR #### [address] [address] .GFRon 06-20-2023 GFR 96 ml/min/1.73sqm Normal [facility] ([place]) Comment on above: Result Comment: GFR [...] CBC, ALC, ADIFF, CMP, GFR ####[address] [place], [place] [address] GFR Non- 79 ml/min/1.73sqm Normal [facility] ([place]) Comment on above: Result Comment: GFR [...] IBARRA, CBC, ALC, ADIFF, CMP, GFR ####[address] [place], [place] [address] .MDWon 06-20-2023 Monocyte Distribution Width 18.60 Normal 0.00-20.00 [facility] ([place]) Comment on above: Result Comment: For ED adult patients suspected of sepsis, MDW<=20.0 does not rule out sepsis or risk of sepsis Performed By: #### A RIVERA IBARRA, CBC, ALC, ADIFF, CMP, GFR #### [address] [place], [place] [address] .NEUABSon 06-20-2023 Neutrophil, Absolute 5.0 10 3/mcL Normal 2.9-6.2 [facility] ([place]) Comment on above: Performed By: #### A RIVERA IBARRA, CBC, ALC, ADIFF, CMP, GFR #### [place] [address] Rob 06-20-2023 Ethanol Level <3 Normal 0-3 [facility] ([place]) Comment on above: Performed By: #### A RIVERA IBARRA, CBC, ALC, ADIFF, CMP, GFR #### [place] [address] Keiko 06-20-2023 Ammonia (P) [Moles/Vol] 15 umol/L Normal 11-32 A [facility] ([place] Comment on above: Performed By: #### P HOS, PRO, AMM ####[place] [address] CBCon 06-20-2023 Erythrocyte distribution width (RBC) [Ratio] 12.6 % Normal 11.5-14.5 [facility] ([place]) Comment on above: Performed By: #### A RIVERA IBARRA, CBC, ALC, ADIFF, CMP, GFR #### [place] [address] Hematocrit (Bld) [Volume fraction] 40.3 % Low 42.0-52.0 [facility] ([place]) Comment on above: Performed By: #### A RIVERA IBARRA, CBC, ALC, ADIFF, CMP, GFR #### [place] [address] Hgb 14.5 G/dL Normal 14.0-18.0 [facility] ([place]) Comment on above: Performed By: #### A RIVERA IBARRA, CBC, ALC, ADIFF, CMP, GFR #### [place] [address] MCH (RBC) [Entitic mass] 33.9 pg High 27.0-31.2 [facility] ([place]) Comment on above: Performed By: #### A RIVERA IBARRA, CBC, ALC, ADIFF, CMP, GFR #### [place] [id number] MCHC 35.9 G/dL High 31.8-35.4 [facility] ([place]) Comment on above: Performed By: #### A RIVERA IBARRA, CBC, ALC, ADIFF, CMP, GFR #### [address] [address] MCV (RBC) [Entitic vol] 94.3 fL High 80.0-94.0 A [facility] ([place] Comment on above: Performed By: #### A RIVERA IBARRA, CBC, ALC, ADIFF, CMP, GFR #### [address] [address] Platelet 230 10 3/mcL Normal 130-400 [facility] ([place]) Comment on above: Performed By: #### A RIVERA IBARRA, CBC, ALC, ADIFF, CMP, GFR #### [address] [address] Platelet mean volume (Bld) [Entitic vol] 7.5 fL Normal 7.4-10.4 [facility] ([place] Comment on above: Performed By: #### A RIVERA IBARRA, CBC, ALC, ADIFF, CMP, GFR #### [address] [address] RBC 4.27 10 6/mcL Normal 4.04-6.13 [facility] ([place]) Comment on above: Performed By: #### A RIVERA IBARRA, CBC, ALC, ADIFF, CMP, GFR #### [address] [address] WBC 8.1 10 3/mcL Normal 4.6-10.8 [facility] ([place]) Comment on above: Performed By: #### A RIVERA IBARRA, CBC, ALC, ADIFF, CMP, GFR #### [address] [address] CMPon 06-20-2023 Albumin Level 3.8 G/dL Normal 3.5-5.0 [facility] ([place]) Comment on above: Performed By: #### A RIVERA IBARRA, CBC, ALC, ADIFF, CMP, GFR #### [address] [address] Albumin/Globulin [Mass ratio] 1.3 {ratio} Normal 1.1-2.5 [facility] ([place]) Comment on above: Performed By: #### A RIVERA IBARRA, CBC, ALC, ADIFF, CMP, GFR #### [address] [address] ALP [Catalytic activity/Vol] 77 U/L Normal 40-135 [facility] ([place] Comment on above: Performed By: #### A RIVERA IBARRA, CBC, ALC, ADIFF, CMP, GFR #### [address] [address] ALT [Catalytic activity/Vol] 28 U/L Normal 16-63 [facility] ([place]) Comment on above: Performed By: #### A RIVERA IBARRA, CBC, ALC, ADIFF, CMP, GFR #### [address] [address] AST [Catalytic activity/Vol] 17 U/L Normal 10-40 [facility] ([place] Comment on above: Performed By: #### A RIVERA IBARRA, CBC, ALC, ADIFF, CMP, GFR #### [address] [address] Bili Total 0.3 mg/dL Normal 0.2-1.0 [facility] ([place]) Comment on above: Result Comment: Use of this assay is not recommended for patients undergoing treatment with eltrombopag due to the potential for falsely elevated results. Performed By: #### A RIVERA IBARRA, CBC, ALC, ADIFF, CMP, GFR #### [address] [address] BUN/Creatinine Ratio 8 ratio Normal 7-27 [facility] ([place]) Comment on above: Performed By: #### A RIVERA IBARRA, CBC, ALC, ADIFF, CMP, GFR #### [address] [address] Calcium [Mass/Vol] 8.6 mg/dL Normal 8.4-10.2 [facility] ([place]) Comment on above: Performed By: #### A RIVERA IBARRA, CBC, ALC, ADIFF, CMP, GFR #### [address] [address] Chloride [Moles/Vol] 105 mmol/L Normal 98-107 [facility] ([place] Comment on above: Performed By: #### A RIVERA IBARRA, CBC, ALC, ADIFF, CMP, GFR #### [address] [address] CO2 [Moles/Vol] 24 mmol/L Normal 22-29 [facility] ([place] Comment on above: Performed By: #### A RIVERA IBARRA, CBC, ALC, ADIFF, CMP, GFR #### [address] [address] Creatinine [Mass/Vol] 1.12 mg/dL Normal 0.70-1.30 [facility] ([place]) Comment on above: Performed By: #### A RIVERA IBARRA, CBC, ALC, ADIFF, CMP, GFR #### [address] [address] Electrolyte Balance 14.0 mEq/L Normal 4.0-15.0 [facility] ([place]) Comment on above: Performed By: #### A RIVERA IBARRA, CBC, ALC, ADIFF, CMP, GFR #### [address] [address] Globulin 2.9 G/dL Normal [facility] ([place] Comment on above: Performed By: #### A RIVERA IBARRA, CBC, ALC, ADIFF, CMP, GFR #### [address] [address] Glucose [Mass/Vol] 99 mg/dL Normal 70-105 [facility] ([place] Comment on above: Performed By: #### A RIVERA IBARRA, CBC, ALC, ADIFF, CMP, GFR #### [place] [address] Potassium [Moles/Vol] 4.1 mmol/L Normal 3.5-5.1 [facility] ([place]) Comment on above: Performed By: #### A RIVERA IBARRA, CBC, ALC, ADIFF, CMP, GFR #### [address] [address] Sodium [Moles/Vol] 143 mmol/L Normal 136-145 [facility] ([place] Comment on above: Performed By: #### A RIVERA IBARRA, CBC, ALC, ADIFF, CMP, GFR #### [address] [address] Total Protein 6.7 G/dL Normal 6.4-8.2 [facility] ([place]) Comment on above: Performed By: #### A RIVERA IBARRA, CBC, ALC, ADIFF, CMP, GFR #### [address] [address] Urea nitrogen [Mass/Vol] 9 mg/dL Normal 7-18 [facility] ([place] Comment on above: Performed By: #### A RIVERA IBARRA, CBC, ALC, ADIFF, CMP, GFR #### [address] [address] [address] HEAD OR BRAIN W/O CONTRAS Ton [...] Sign Date: 06/20/2023 3:18:15 AM Ordering Provider: [facility]) CT SPINE CERVICAL W/O CONTRA STon 06-20-2023 [...] Sign Date: 06/20/2023 3:20:14 AM Ordering Provider: [facility]) LABORATORYOrdered By: [employer] on 06-20-2023 Ammonia (P) [Moles/Vol] 15 umol/L [...] Comment on above: Interpretive Data: T pee [employer] (CHEST, 1991, 102:[id number]) [...] 06-20-2023 Magnesium [Mass/Vol] 2.1 mg/dL Normal 1.8-2.4 [facility] ([place] Comment on above: Performed By: #### M G ####[id number] [place], [place] [address] Magnesium [Mass/Vol] 1.7 mg/dL Low 1.8-2.4 [facility] ([place] Comment on above: Performed By: #### M G ####[id number] [place], [place] [address] MRI BRAIN W/O CONTRASTon MRI BRAIN W/O [...] 4:13:50 PM Ordering Provider: ANA MARIA Robertson [facility] ([place]) PHOSon 06-20-2023 Phosphate [Mass/Vol] 2.9 mg/dL Normal 2.7-4.5 [facility] ([place] Comment on above: Performed By: #### P HOS, PRO, AMM ####[address] [place], [place] [address] PROon 06-20-2023 PT Coag (PPP) [Time] 9.8 s Normal 9.0-14.4 [facility] ([place] Comment on above: Performed By: #### P HOS, PRO, AMM ####[address] [place] [address] PT International Ratio 0.8 Normal [facility] ([place]) Comment on above: Result Comment: [employer] (CHEST, 1992, [id number]) recommended therapeutic range for oral anticoagulant therapy is: LOW RISK: Prophylaxis of venous thrombosis INR: 2.0-3.0 Treatment of pulmonary embolism 2.0-3.0 Prevention of systemic embolism 2.0-3.0 HIGH RISK: Mechanical prosthetic valves 2.5-3.5 Performed By: #### P HOS, PRO, AMM ####[id number] [address] UDRUGon 06-20-2023 Amphetamine (u) Negative Normal Negative [facility] ([place] Comment on above: Performed By: #### U DRUG #### [place] [address] Barbiturate (u) Negative Normal Negative [facility] ([place] Comment on above: Performed By: #### U DRUG #### [address] [address] Benzodiazepine (u) Negative Normal Negative [facility] ([place] Comment on above: Performed By: #### U DRUG #### [address] [address] Cannabinoid (u) Negative Normal Negative [facility] ([place]) Comment on above: Performed By: #### U DRUG #### [place] [address] Cocaine Ql (U) Negative Normal Negative [facility] ([place] Comment on above: Performed By: #### U DRUG #### [place] [id number] Methadone Ql (U) Negative Normal Negative [facility] ([place] Comment on above: Performed By: #### U DRUG #### Angel [address] [address] Opiate (u) Negative Normal Negative [facility] ([place] Comment on above: Performed By: #### U DRUG #### Angel [address] [address] PCP (u) Negative Normal Negative [facility] ([place] Comment on above: Performed By: #### U DRUG #### Angel [address] [address] Urine Drugs screened: See Below Normal [facility] ([place]) Comment on above: Result Comment: This [...] Performed By: #### U DRUG #### Angel [address] [address] XR CHEST 1 VIEWon 06-20-2023 XR CHEST [...] 06/20/2023 3:12:39 AM Ordering Provider: MICHAEL PADRON [facility] ([place]) Absolute lymphocyte countOrd ered By: Carmelo Mccray on 06-19-2023 Lymphocytes Auto (Unsp spec) [#/Vol] 2.47 10*3/uL 0.83-4.[address] [facility] Automated lymphocyte count a s percentage of total leukocytesOrdered By: Carmelo Mccray on 06-19-2023 Lymphocytes/100 WBC Auto (Unsp spec) 28.9 % 19-[address] [facility] Basophil percentageOrdered B y: Carmelo Mccray on 06-19-2023 Basophils/100 WBC (Bld) 0.9 % 0-1 [facility] Chloride [Moles/Vol] 108 mmol/L 98-107 [facility] Eosinophils/100 WBC (Bld) 0.6 % 0-[address] [facility] Glucose [Mass/Vol] 84 mg/dL 74-106 [facility] Hemoglobin (Bld) [Mass/Vol] 14.8 g/dL 13.0-16.[address] [facility] Monocytes/100 WBC (Bld) 8.4 % 0-10 [facility] Neutrophils (Bld) [#/Vol] 5.2 10*3/uL 2.0-7.[address] [facility] Neutrophils/100 WBC (Bld) 60.8 % 47-[address] [facility] Potassium [Moles/Vol] 3.7 mmol/L 3.5-5.1 [facility] Sodium [Moles/Vol] 140 mmol/L 136-145 [facility] WBC (Bld) [#/Vol] 8.6 10*3/uL 4.4-11.0 [facility] Determination of erythrocyte mean corpuscular volume (MCV)Ordered By: Carmelo Mccray on 06-19-2023 MCV (RBC) [Entitic vol] 95.8 fL 80-94 [facility] Erythrocyte distribution wid th ratioOrdered By: Carmelo Mccray on 06-19-2023 Erythrocyte distribution width (RBC) [Ratio] 12.0 % 11.6-14.[address] [facility] Erythrocyte distribution wid th standard deviationOrdered By: Carmelo Mccray on 06-19-2023 Erythrocyte distribution width (RBC) [Entitic vol] 41.5 fL 35.1-43.[address] [facility] Hematocrit Auto (Bld) [Volum e fraction]Ordered By: Carmelo Mccray on 06-19-2023 Hematocrit (Bld) [Volume fraction] 42.9 % 40-[address] [facility] Immature granulocytes/100 WB C Auto (Bld)Ordered By: Carmelo Mccray on 06-19-2023 Immature granulocytes/100 WBC (Bld) 0.400 % 0.0-0.[address] [facility] Comment on above: IG% - Immature Granu locytes (promyelocytes, myelocytes and metamyelocytes) > 1% indicates that a LEFT SHIFT is Present. Laboratory - Chemistry and C hemistry - challengeOrdered By: Carmelo Mccray on 06-19-2023 CO2 [Moles/Vol] 27.0 mmol/L 21.0-32.[address] [facility] Urea nitrogen/Creatinine [Mass ratio] 10.0 mg/mg 10-[address] [facility] Laboratory - Hematology and Cell countsOrdered By: Carmelo Mccray on 06-19-2023 MCH (RBC) [Entitic mass] 33.0 pg 27.0-32.[address] [facility] MCHC (RBC) [Mass/Vol] 34.5 g/dL 32-36 [facility] Nucleated RBC/100 WBC (Bld) [Ratio] 0 % 0-[address] [facility] Platelet mean volume (Bld) [Entitic vol] 9.6 fL 6.2-12.[address] [facility] Platelets (Bld) [#/Vol] 263 10*3/uL 150-[address] [facility] Laboratory - Microbiology an d Antimicrobial susceptibilityOrdered By: Carmelo Mccray on 06-19-2023 SARS-CoV-2 (COVID-19) RNA DOMINIC+probe Ql (Unsp spec) [facility] No Panel InformationOrdered By: Carmelo Mccray on 06-19-2023 Estimated Creatinine Clearance Calc 145.96 ml/min [facility] Estimated GFR (MDRD) Amer 131 mL/min >[address] [facility] Comment on above: GFR Calc Estimated GFR (MDRD) Non-Af Amer 108 mL/min >[address] [facility] Comment on above: Non- GFR Calc Troponin I High Sensitivity 10 pg/mL 3.0-78.[address] [facility] Comment on above: Please Note: New Rhea t Units and Gender Specific Reference Ranges. For more information see Policy Stat Procedure [place] High Sensitivity Troponin (TNIH) and attachments. RBC Auto (Bld) [#/Vol]Ordere d By: Carmelo Mccray on 06-19-2023 RBC (Bld) [#/Vol] 4.48 10*6/uL 4.6-6.2 [facility] Serum or plasma calcium gaetano urement (mass/volume)Ordered By: Carmelo Mccray on 06-19-2023 Calcium [Mass/Vol] 8.9 mg/dL 8.5-10.1 [facility] Serum or plasma creatinine m easurement (mass/volume)Ordered By: Carmelo Mccray on 06-19-2023 Creatinine [Mass/Vol] 0.90 mg/dL 0.70-1.30 [facility] Comment on above: The validity of the calculated GFR & GFRAA in patients over 70 years has not been determined. Clinical correlation is essential. Serum or plasma urea nitroge n measurement (mass/volume)Ordered By: Carmelo Mccray on 06-19-2023 Urea nitrogen [Mass/Vol] 9 mg/dL 7-[address] [facility] Thin prep Papanicolaou smear with manual screeningOrdered By: Carmelo Mccray on 06-19-2023 Thin prep Papanicolaou smear with manual screening 5 5-[address] [facility] Absolute lymphocyte countOrd ered By: Marcio Cardona on 05-01-2023 Lymphocytes Auto (Unsp spec) [#/Vol] 4.15 10*3/uL 0.83-4.[address] [facility] Automated lymphocyte count a s percentage of total leukocytesOrdered By: Marcio Cardona on 05-01-2023 Lymphocytes/100 WBC Auto (Unsp spec) 41.9 % 19-[address] [facility] Basophil percentageOrdered B y: Jacquie White on 05-01-2023 Basophil percentage 3.4 mg/dL 2.5-4.9 [facility] Basophil percentageOrdered B y: Marcio Cardona on 05-01-2023 Basophils/100 WBC (Bld) 1.2 % 0-1 [facility] Bilirubin [Mass/Vol] 0.60 mg/dL 0.20-1.00 [facility] Comment on above: For patients on eltr ombopag therapy, use of Dimension [place] TBIL is not recommended. Chloride [Moles/Vol] 107 mmol/L 98-107 [facility] Eosinophils/100 WBC (Bld) 0.3 % 0-[address] [facility] Glucose [Mass/Vol] 130 mg/dL 74-106 [facility] Comment on above: Fasting Glucose resu lt greater than or equal to 126 mg/dL suggests DIABETES MELLITUS per A.D.A. criteria. Hemoglobin (Bld) [Mass/Vol] 18.1 g/dL 13.0-16.[address] [facility] Comment on above: CRITICAL VALUE VERIF IED. CALLED TO Lynn HAMPTON05/01/23 0559 [address].RESULTS READ BACK BY SAME. Monocytes/100 WBC (Bld) 6.5 % 0-10 [facility] Neutrophils (Bld) [#/Vol] 4.9 10*3/uL 2.0-7.[address] [facility] Neutrophils/100 WBC (Bld) 49.6 % 47-[address] [facility] Potassium [Moles/Vol] 3.8 mmol/L 3.5-5.1 [facility] Protein [Mass/Vol] 7.8 g/dL 6.4-8.2 [facility] Sodium [Moles/Vol] 143 mmol/L 136-145 [facility] WBC (Bld) [#/Vol] 9.9 10*3/uL 4.4-11.0 [facility] Blood manual differential co mment interpretation (narrative result)Ordered By: Marcio Cardona on 05-01-2023 Manual differential comment Isacc (Bld) [Interp] SCANNED [facility] Determination of erythrocyte mean corpuscular volume (MCV)Ordered By: Marcio Cardona on 05-01-2023 MCV (RBC) [Entitic vol] 93.3 fL 80-94 [facility] Erythrocyte distribution wid th ratioOrdered By: Marcio Cardona on 05-01-2023 Erythrocyte distribution width (RBC) [Ratio] 12.8 % 11.6-14.[address] [facility] Erythrocyte distribution wid th standard deviationOrdered By: Marcio Cardona on 05-01-2023 Erythrocyte distribution width (RBC) [Entitic vol] 44.0 fL 35.1-43.[address] [facility] Hematocrit Auto (Bld) [Volum e fraction]Ordered By: Marcio Cardona on 05-01-2023 Hematocrit (Bld) [Volume fraction] 51.3 % 40-[address] [facility] Immature granulocytes/100 WB C Auto (Bld)Ordered By: Marcio Cardona on 05-01-2023 Immature granulocytes/100 WBC (Bld) 0.500 % 0.0-0.[address] [facility] Comment on above: IG% - Immature Granu locytes (promyelocytes, myelocytes and metamyelocytes) > 1% indicates that a LEFT SHIFT is Present. Laboratory - Chemistry and C hemistry - challengeOrdered By: Marcio Cardona on 05-01-2023 Albumin/Globulin [Mass ratio] 1.1 {ratio} 0.9-2.[address] [facility] ALP [Catalytic activity/Vol] 92 U/L 45-[address] [facility] ALT [Catalytic activity/Vol] 49 U/L 16-[address] [facility] CO2 [Moles/Vol] 26.0 mmol/L 21.0-32.[address] [facility] Globulin (S) [Mass/Vol] 3.7 g/dL 2.2-4.2 [facility] Urea nitrogen/Creatinine [Mass ratio] 6.4 mg/mg 10-[address] [facility] Laboratory - Chemistry and C hemistry - challengeOrdered By: Jacquie Beckwith on 05-01-2023 Magnesium [Mass/Vol] 2.1 mg/dL 1.6-2.6 [facility] Laboratory - CoagulationOrde red By: Marcio Cardona on 05-01-2023 INR Coag (Bld) [Relative time] 1.0 {INR} [facility] PT Coag (PPP) [Time] 13.5 s 11.7-14.9 [facility] Laboratory - Drug toxicology Ordered By: Marcio Cardona on 05-01-2023 Amphetamines Ql (U) Negative <1000 ng/mL [facility] Benzodiazepines Ql (U) Negative < 200 ng/mL [facility] Cannabinoids Screen Ql (U) Negative < 50 ng/mL [facility] Cocaine Ql (U) Negative < 300 ng/mL [facility] Opiates Ql (U) Negative < 300 ng/mL [facility] Laboratory - Hematology and Cell countsOrdered By: Marcio Cardona on 05-01-2023 MCH (RBC) [Entitic mass] 32.9 pg 27.0-32.[address] [facility] MCHC (RBC) [Mass/Vol] 35.3 g/dL 32-36 [facility] Nucleated RBC/100 WBC (Bld) [Ratio] 0 % 0-[address] [facility] Platelet mean volume (Bld) [Entitic vol] 9.1 fL 6.2-12.[address] [facility] Platelets (Bld) [#/Vol] 371 10*3/uL 150-[address] [facility] No Panel InformationOrdered By: Marcio Cardona on 05-01-2023 Estimated GFR (MDRD) Amer 125 mL/min >[address] [facility] Comment on above: GFR Calc Estimated GFR (MDRD) Non-Af Amer 103 mL/min >[address] [facility] Comment on above: Non- GFR Calc Ethyl Alcohol Level 208.0 mg/dL [facility] Comment on above: The serum:whole bloo d ethanol ratio is approximately 1.14and varies slightly with hematocrit. Medical Alcohol reference interval and critical value innon-tolerant individuals; 50 - 100 Impairment 100 Intoxication 100 - 250 Severe Poisoning 250 - 400 Deep/possible fatal coma MDMA (Ecstasy) Screen Negative < 500 ng/mL [facility] Urine Barbiturates Screen Negative < 200 ng/mL [facility] Urine Drug Screen Comment [facility] Comment on above: CONFIRMATORY TESTING [...] Methadone Screen Negative < 300 ng/mL [facility] RBC Auto (Bld) [#/Vol]Ordere d By: Marcio Cardona on 05-01-2023 RBC (Bld) [#/Vol] 5.50 10*6/uL 4.6-6.2 [facility] Review by pathologistOrdered By: Marcio Cardona on 05-01-2023 Pathologist review Iscac (Unsp spec) [Interp] Cheryl holland [facility] Pathologist review Isacc (Unsp spec) [Interp] Reviewed [facility] Comment on above: Previous reported re sult: Cheryl holland Edited by: МАРИНА on 05/02/23:0932PolycythemiaClinical correlation necessary.Mahesh Sharma M.D. 05/02/23 AMENDED REPORT 05/02/23 0932 PATH REV previously reported as: Cheryl holland Serum or plasma calcium gaetano urement (mass/volume)Ordered By: Marcio Cardona on 05-01-2023 Calcium [Mass/Vol] 8.6 mg/dL 8.5-10.1 [facility] Serum or plasma creatinine m easurement (mass/volume)Ordered By: Marcio Cardona on 05-01-2023 Creatinine [Mass/Vol] 0.94 mg/dL 0.70-1.30 [facility] Comment on above: The validity of the calculated GFR & GFRAA in patients over 70 years has not been determined. Clinical correlation is essential. Serum or plasma urea nitroge n measurement (mass/volume)Ordered By: Marcio Cardona on 05-01-2023 Urea nitrogen [Mass/Vol] 6 mg/dL 7-[address] [facility] Thin prep Papanicolaou smear with manual screeningOrdered By: Marcio Cardona on 05-01-2023 Thin prep Papanicolaou smear with manual screening 4.1 g/dL 3.2-5.[address] [facility] Thin prep Papanicolaou smear with manual screening 31 U/L 15-[address] [facility] Thin prep Papanicolaou smear with manual screening 10 5-[address] [facility] Urine phencyclidine (PCP) de tectionOrdered By: Marcio Cardona on 05-01-2023 Phencyclidine Ql (U) Negative < 25 ng/mL [facility] Basophil percentageOrdered B y: Jacquie Beckwith on 03-23-2023 Basophil percentage 2.9 mg/dL 2.5-4.9 [facility] Laboratory - Chemistry and C hemistry - challengeOrdered By: Jacquie Beckwith on 03-23-2023 Magnesium [Mass/Vol] 2.0 mg/dL 1.6-2.6 [facility] Laboratory - CoagulationOrde red By: Stan Thomas on 03-23-2023 INR Coag (Bld) [Relative time] 0.9 {INR} [facility] PT Coag (PPP) [Time] 12.2 s 11.7-14.9 [facility] Absolute lymphocyte countOrd ered By: Daquan Reid on 03-22-2023 Lymphocytes Auto (Unsp spec) [#/Vol] 3.11 10*3/uL 0.83-4.[address] [facility] Automated lymphocyte count a s percentage of total leukocytesOrdered By: Daquan Reid on 03-22-2023 Lymphocytes/100 WBC Auto (Unsp spec) 34.2 % 19-[address] [facility] Basophil percentageOrdered B y: Daquan Reid on 03-22-2023 Basophils/100 WBC (Bld) 0.8 % 0-1 [facility] Bilirubin [Mass/Vol] 0.70 mg/dL 0.20-1.00 [facility] Comment on above: For patients on eltr ombopag therapy, use of Dimension [place] TBIL is not recommended. Chloride [Moles/Vol] 108 mmol/L 98-107 [facility] Eosinophils/100 WBC (Bld) 0.1 % 0-[address] [facility] Glucose [Mass/Vol] 117 mg/dL 74-106 [facility] Comment on above: Fasting Glucose resu lt from 100 to 125 mg/dL suggests IMPAIRED HOMEOSTASIS per A.D.A. criteria. Hemoglobin (Bld) [Mass/Vol] 16.8 g/dL 13.0-16.[address] [facility] Monocytes/100 WBC (Bld) 6.3 % 0-10 [facility] Neutrophils (Bld) [#/Vol] 5.3 10*3/uL 2.0-7.[address] [facility] Neutrophils/100 WBC (Bld) 58.3 % 47-[address] [facility] Potassium [Moles/Vol] 4.0 mmol/L 3.5-5.1 [facility] Protein [Mass/Vol] 8.1 g/dL 6.4-8.2 [facility] Sodium [Moles/Vol] 140 mmol/L 136-145 [facility] WBC (Bld) [#/Vol] 9.1 10*3/uL 4.4-11.0 [facility] Determination of erythrocyte mean corpuscular volume (MCV)Ordered By: Daquan Reid on 03-22-2023 MCV (RBC) [Entitic vol] 88.6 fL 80-94 [facility] Erythrocyte distribution wid th ratioOrdered By: Daquan Reid on 03-22-2023 Erythrocyte distribution width (RBC) [Ratio] 12.4 % 11.6-14.[address] [facility] Erythrocyte distribution wid th standard deviationOrdered By: Daquan Reid on 03-22-2023 Erythrocyte distribution width (RBC) [Entitic vol] 40.2 fL 35.1-43.[address] [facility] Hematocrit Auto (Bld) [Volum e fraction]Ordered By: Daquan Reid on 03-22-2023 Hematocrit (Bld) [Volume fraction] 46.8 % 40-[address] [facility] Immature granulocytes/100 WB C Auto (Bld)Ordered By: Daquan Reid on 03-22-2023 Immature granulocytes/100 WBC (Bld) 0.300 % 0.0-0.[address] [facility] Comment on above: IG% - Immature Granu locytes (promyelocytes, myelocytes and metamyelocytes) > 1% indicates that a LEFT SHIFT is Present. Laboratory - Chemistry and C hemistry - challengeOrdered By: Daquan Reid on 03-22-2023 Albumin/Globulin [Mass ratio] 1.2 {ratio} 0.9-2.[address] [facility] ALP [Catalytic activity/Vol] 105 U/L 45-[address] [facility] ALT [Catalytic activity/Vol] 27 U/L 16-[address] [facility] CO2 [Moles/Vol] 25.0 mmol/L 21.0-32.[address] [facility] Globulin (S) [Mass/Vol] 3.7 g/dL 2.2-4.2 [facility] Urea nitrogen/Creatinine [Mass ratio] 8.1 mg/mg 10-[address] [facility] Laboratory - Chemistry and C hemistry - challengeOrdered By: Stan Thomas on 03-22-2023 Amylase [Catalytic activity/Vol] 34 U/L 15- [facility] Laboratory - Drug toxicology Ordered By: Daquan Reid on 03-22-2023 Amphetamines Ql (U) Negative <1000 ng/mL [facility] Benzodiazepines Ql (U) Negative < 200 ng/mL [facility] Cannabinoids Screen Ql (U) Negative < 50 ng/mL [facility] Cocaine Ql (U) Negative < 300 ng/mL [facility] Opiates Ql (U) Negative < 300 ng/mL [facility] Laboratory - Hematology and Cell countsOrdered By: Daquan Reid on 03-22-2023 MCH (RBC) [Entitic mass] 31.8 pg 27.0-32.[address] [facility] MCHC (RBC) [Mass/Vol] 35.9 g/dL 32-36 [facility] Nucleated RBC/100 WBC (Bld) [Ratio] 0 % 0-[address] [facility] Platelet mean volume (Bld) [Entitic vol] 9.2 fL 6.2-12.[address] [facility] Platelets (Bld) [#/Vol] 367 10*3/uL 150-[address] [facility] No Panel InformationOrdered By: Daquan Reid on 03-22-2023 Estimated Creatinine Clearance Calc 138.63 ml/min [facility] Estimated GFR (MDRD) Amer 137 mL/min >[address] [facility] Comment on above: GFR Calc Estimated GFR (MDRD) Non-Af Amer 113 mL/min >[address] [facility] Comment on above: Non- GFR Calc Ethyl Alcohol Level 212.0 mg/dL [facility] Comment on above: The serum:whole bloo d ethanol ratio is approximately 1.14and varies slightly with hematocrit. Medical Alcohol reference interval and critical value innon-tolerant individuals; 50 - 100 Impairment 100 Intoxication 100 - 250 Severe Poisoning 250 - 400 Deep/possible fatal coma MDMA (Ecstasy) Screen Negative < 500 ng/mL [facility] Urine Barbiturates Screen Negative < 200 ng/mL [facility] Urine Drug Screen Comment See comment [facility] Comment on above: CONFIRMATORY TESTING [...] UTCAPrevious reported result: Edited by: QI on 03/22/23:9155 AMENDED REPORT 03/22/232326 TO BE CONFIRMED previously [...] Methadone Screen Negative < 300 ng/mL [facility] RBC Auto (Bld) [#/Vol]Ordere d By: Daquan Reid on 03-22-2023 RBC (Bld) [#/Vol] 5.28 10*6/uL 4.6-6.2 [facility] Serum or plasma calcium gaetano urement (mass/volume)Ordered By: Daquan Reid on 03-22-2023 Calcium [Mass/Vol] 9.1 mg/dL 8.5-10.1 [facility] Serum or plasma creatinine m easurement (mass/volume)Ordered By: Daquan Reid on 03-22-2023 Creatinine [Mass/Vol] 0.86 mg/dL 0.70-1.30 [facility] Comment on above: The validity of the calculated GFR & GFRAA in patients over 70 years has not been determined. Clinical correlation is essential. Serum or plasma urea nitroge n measurement (mass/volume)Ordered By: Daquan Reid on 03-22-2023 Urea nitrogen [Mass/Vol] 7 mg/dL 7-[address] [facility] Thin prep Papanicolaou smear with manual screeningOrdered By: Daquan Reid on 03-22-2023 Thin prep Papanicolaou smear with manual screening 4.4 g/dL 3.2-5.[address] [facility] Thin prep Papanicolaou smear with manual screening 18 U/L 15-[address] [facility] Thin prep Papanicolaou smear with manual screening 7 5-[address] [facility] Urine phencyclidine (PCP) de tectionOrdered By: Daquan Reid on 03-22-2023 Phencyclidine Ql (U) Negative < 25 ng/mL [facility] Absolute lymphocyte countOrd ered By: Cadence Cornelius on 08-05-2022 Lymphocytes Auto (Unsp spec) [#/Vol] 2.36 10*3/uL 0.83-4.[address] [facility] Basophil percentageOrdered B y: Cadence Cornelius on 08-05-2022 Basophils/100 WBC (Bld) 1.0 % 0-1 [facility] Bilirubin [Mass/Vol] 0.70 mg/dL 0.20-1.00 [facility] Comment on above: For patients on eltr ombopag therapy, use of Dimension [place] TBIL is not recommended. Chloride [Moles/Vol] 109 mmol/L 98-107 [facility] Eosinophils/100 WBC (Bld) 0.3 % 0-[address] [facility] Glucose [Mass/Vol] 116 mg/dL 74-106 [facility] Comment on above: Fasting Glucose resu lt from 100 to 125 mg/dL suggests IMPAIRED HOMEOSTASIS per A.D.A. criteria. Neutrophils (Bld) [#/Vol] 4.0 10*3/uL 2.0-7.[address] [facility] Neutrophils/100 WBC (Bld) 56.8 % 47-[address] [facility] Potassium [Moles/Vol] 4.0 mmol/L 3.5-5.1 [facility] Protein [Mass/Vol] 6.4 g/dL 6.4-8.2 [facility] Sodium [Moles/Vol] 143 mmol/L 136-145 [facility] WBC (Bld) [#/Vol] 7.1 10*3/uL 4.4-11.0 [facility] Blood erythrocytes count (nu mber/volume)Ordered By: Cadence Cornelius on 08-05-2022 RBC (Bld) [#/Vol] 4.56 10*6/uL 4.6-6.2 [facility] Blood hemoglobin measurement (mass/volume)Ordered By: Cadence Cornelius on 08-05-2022 Hemoglobin (Bld) [Mass/Vol] 14.6 g/dL 13.0-16.[address] [facility] Blood lymphocytes/100 leukoc ytesOrdered By: Cadence Cornelius on 08-05-2022 Lymphocytes/100 WBC (Bld) 33.2 % 19-[address] [facility] Blood monocytes/100 leukocyt esOrdered By: Cadence Cornelius on 08-05-2022 Monocytes/100 WBC (Bld) 8.3 % 0-10 [facility] Blood platelet mean volumeOr dered By: Cadence Cornelius on 08-05-2022 Platelet mean volume (Bld) [Entitic vol] 9.1 fL 6.2-12.[address] [facility] Determination of erythrocyte mean corpuscular volume (MCV)Ordered By: Cadence Cornelius on 08-05-2022 MCV (RBC) [Entitic vol] 90.6 fL 80-94 [facility] Direct bilirubinOrdered By: Cadence Cornelius on 08-05-2022 Bilirubin.direct [Mass/Vol] 0.19 mg/dL 0.00-0.[address] [facility] Hematocrit Auto (Bld) [Volum e fraction]Ordered By: Cadence Cornelius on 08-05-2022 Hematocrit (Bld) [Volume fraction] 41.3 % 40-[address] [facility] Laboratory - Chemistry and C hemistry - challengeOrdered By: Cadence Cornelius on 08-05-2022 ALP [Catalytic activity/Vol] 73 U/L 45-[address] [facility] ALT [Catalytic activity/Vol] 24 U/L 16-[address] [facility] CO2 [Moles/Vol] 28.0 mmol/L 21.0-32.[address] [facility] Globulin (S) [Mass/Vol] 2.9 g/dL 2.2-4.2 [facility] Urea nitrogen/Creatinine [Mass ratio] 10.0 mg/mg 10-[address] [facility] Laboratory - Drug toxicology Ordered By: Cadence Cornelius on 08-05-2022 Amphetamines Ql (U) Negative <1000 ng/mL [facility] Benzodiazepines Ql (U) Negative < 200 ng/mL [facility] Cannabinoids Screen Ql (U) Negative < 50 ng/mL [facility] Cocaine Ql (U) Positive < 300 ng/mL [facility] Opiates Ql (U) Negative < 300 ng/mL [facility] Laboratory - Hematology and Cell countsOrdered By: Cadence Cornelius on 08-05-2022 Erythrocyte distribution width (RBC) [Entitic vol] 38.1 fL 35.1-43.[address] [facility] Erythrocyte distribution width (RBC) [Ratio] 11.6 % 11.6-14.[address] [facility] Immature granulocytes/100 WBC (Bld) 0.400 % 0.0-0.[address] [facility] Comment on above: IG% - Immature Granu locytes (promyelocytes, myelocytes and metamyelocytes) > 1% indicates that a LEFT SHIFT is Present. MCH (RBC) [Entitic mass] 32.0 pg 27.0-32.[address] [facility] Nucleated RBC/100 WBC (Bld) [Ratio] 0 % 0-[address] [facility] MCHC Auto (RBC) [Mass/Vol]Or dered By: Cadence Cornelius on 08-05-2022 MCHC (RBC) [Mass/Vol] 35.4 g/dL 32-36 [facility] No Panel InformationOrdered By: Cadence Cornelius on 08-05-2022 MDMA (Ecstasy) Screen Negative < 500 ng/mL [facility] Urine Barbiturates Screen Negative < 200 ng/mL [facility] Urine Drug Screen Comment [facility] Comment on above: CONFIRMATORY TESTING [...] Methadone Screen Negative < 300 ng/mL [facility] Estimated Creatinine Clearance Calc 150.34 ml/min [facility] Estimated GFR (MDRD) Amer 151 mL/min >[address] [facility] Comment on above: GFR Calc Estimated GFR (MDRD) Non-Af Amer 125 mL/min >[address] [facility] Comment on above: Non- GFR Calc Ethyl Alcohol Level 219.0 mg/dL [facility] Comment on above: The serum:whole bloo d ethanol ratio is approximately 1.14and varies slightly with hematocrit. Medical Alcohol reference interval and critical value innon-tolerant individuals; 50 - 100 Impairment 100 Intoxication 100 - 250 Severe Poisoning 250 - 400 Deep/possible fatal coma Platelets bldOrdered By: Geraldine Cornelius on 08-05-2022 Platelets (Bld) [#/Vol] 249 10*3/uL 150-[address] [facility] Serum or plasma albumin gaetano urement (mass/volume)Ordered By: Cadence Cornelius on 08-05-2022 Albumin [Mass/Vol] 3.5 g/dL 3.2-5.0 [facility] Serum or plasma calcium gaetano urement (mass/volume)Ordered By: Cadence Cornelius on 08-05-2022 Calcium [Mass/Vol] 8.2 mg/dL 8.5-10.1 [facility] Serum or plasma creatinine m easurement (mass/volume)Ordered By: Cadence Cornelius on 08-05-2022 Creatinine [Mass/Vol] 0.80 mg/dL 0.70-1.30 [facility] Comment on above: The validity of the calculated GFR & GFRAA in patients over 70 years has not been determined. Clinical correlation is essential. Serum or plasma urea nitroge n measurement (mass/volume)Ordered By: Cadence Cornelius on 08-05-2022 Urea nitrogen [Mass/Vol] 8 mg/dL 7-[address] [facility] Thin prep Papanicolaou smear with manual screeningOrdered By: Cadence Cornelius on 08-05-2022 Thin prep Papanicolaou smear with manual screening 17 U/L 15-[address] [facility] Thin prep Papanicolaou smear with manual screening 6 5-[address] [facility] Urine phencyclidine (PCP) de tectionOrdered By: Cadence Cornelius on 08-05-2022 Phencyclidine Ql (U) Negative < 25 ng/mL [facility] Vital Signs Date Time Vital Sign Value Performing Clinician Facility 10-19-2024 15:33-0400 Body temperature 98.4 [degF] No Primary Care Physician [facility] 10-19-2024 15:33-0400 Diastolic blood pressure 59 mm[Hg] No Primary Care Physician [facility] 10-19-2024 15:33-0400 Heart rate 76 /min No Primary Care Physician [facility] 10-19-2024 15:33-0400 Respiratory rate 16 /min No Primary Care Physician [facility] 10-19-2024 15:33-0400 SaO2% (BldA) [Mass fraction] 98 % No Primary Care Physician [facility] 10-19-2024 15:33-0400 Systolic blood pressure 116 mm[Hg] No Primary Care Physician [facility] 10-19-2024 13:48-0400 Body height 180.34 cm No Primary Care Physician [facility] 10-19-2024 13:48-0400 Body weight 77.11 kg No Primary Care Physician [facility] 10-18-2024 19:47-0400 Body mass index (BMI) [Ratio] 23.7 kg/m2 No Primary Care Physician [facility] 10-18-2024 18:23-0400 Body temperature 98.9 [degF] No Primary Care Physician [facility] 10-18-2024 18:23-0400 Diastolic blood pressure 68 mm[Hg] No Primary Care Physician [facility] 10-18-2024 18:23-0400 Heart rate 90 /min No Primary Care Physician [facility] 10-18-2024 18:23-0400 Respiratory rate 16 /min No Primary Care Physician [facility] 10-18-2024 18:23-0400 SaO2% (BldA) [Mass fraction] 100 % No Primary Care Physician [facility] 10-18-2024 18:23-0400 Systolic blood pressure 123 mm[Hg] No Primary Care Physician [facility] 10-18-2024 15:58-0400 Body height 180.34 cm No Primary Care Physician [facility] 10-18-2024 15:58-0400 Body mass index (BMI) [Ratio] 23.7 kg/m2 No Primary Care Physician [facility] 10-18-2024 15:58-0400 Body weight 77.24 kg No Primary Care Physician [facility] 10-18-2024 15:50-0400 Body temperature 98.4 [degF] No Primary Care Physician [facility] 10-18-2024 15:50-0400 Diastolic blood pressure 63 mm[Hg] No Primary Care Physician [facility] 10-18-2024 15:50-0400 Heart rate 112 /min No Primary Care Physician [facility] 10-18-2024 15:50-0400 Respiratory rate 18 /min No Primary Care Physician [facility] 10-18-2024 15:50-0400 SaO2% (BldA) [Mass fraction] 97 % No Primary Care Physician [facility] 10-18-2024 15:50-0400 Systolic blood pressure 122 mm[Hg] No Primary Care Physician [facility] 10-18-2024 15:03-0400 Body height 180.34 cm No Primary Care Physician [facility] 10-18-2024 15:03-0400 Body mass index (BMI) [Ratio] 24 kg/m2 No Primary Care Physician [facility] 10-18-2024 15:03-0400 Body weight 78.2 kg No Primary Care Physician [facility] 10-14-2024 12:55-0400 Respiratory rate 16 /min Kristian Parekh MD Work Phone: [facility] 10-14-2024 12:43-0400 Body temperature 97.81 [degF] Kristian Parekh MD Work Phone: [facility] 10-14-2024 12:43-0400 Diastolic blood pressure 76 mm[Hg] Kristian Parekh MD Work Phone: [facility] 10-14-2024 12:43-0400 Heart rate 72 /min Kristian Parekh MD Work Phone: [facility] 10-14-2024 12:43-0400 SaO2% (BldA) [Mass fraction] 96 % Kristian Parekh MD Work Phone: [facility] 10-14-2024 12:43-0400 Systolic blood pressure 121 mm[Hg] Kristian Parekh MD Work Phone: [facility] 10-12-2024 23:15-0400 Body height 180.3 cm Kristian Parekh MD Work Phone: [facility] 10-12-2024 23:15-0400 Body mass index (BMI) [Ratio] 24.13 kg/m2 Kristian Parekh MD Work Phone: [facility] 10-12-2024 23:15-0400 Body weight 78.47 kg Kristian Parekh MD Work Phone: [facility] 10-11-2024 15:13-0400 Respiratory rate 16 /min [facility] 10-11-2024 14:29-0400 Body temperature 98.01 [degF] [facility] 10-11-2024 14:29-0400 Diastolic blood pressure 76 mm[Hg] [facility] 10-11-2024 14:29-0400 Heart rate 77 /min [facility] 10-11-2024 14:29-0400 SaO2% (BldA) [Mass fraction] 97 % [facility] 10-11-2024 14:29-0400 Systolic blood pressure 124 mm[Hg] [facility] 10-08-2024 00:54-0400 Body height 180.3 cm [facility] 10-08-2024 00:54-0400 Body mass index (BMI) [Ratio] 24.41 kg/m2 [facility] 10-08-2024 00:54-0400 Body weight 79.38 kg [facility] 10-05-2024 13:15-0400 Respiratory rate 16 /min [facility] 10-05-2024 11:25-0400 Diastolic blood pressure 76 mm[Hg] [facility] 10-05-2024 11:25-0400 Heart rate 107 /min [facility] 10-05-2024 11:25-0400 SaO2% (BldA) [Mass fraction] 98 % [facility] 10-05-2024 11:25-0400 Systolic blood pressure 124 mm[Hg] [facility] 10-05-2024 11:00-0400 Body temperature 100.9 [degF] [facility] 10-05-2024 04:00-0400 Body height 180.3 cm [facility] 10-05-2024 04:00-0400 Body mass index (BMI) [Ratio] 23.98 kg/m2 [facility] 10-05-2024 04:00-0400 Body weight 78 kg [facility] 10-04-2024 11:56-0400 Respiratory rate 16 /min [facility] 10-04-2024 11:23-0400 Body temperature 98.01 [degF] [facility] 10-04-2024 11:23-0400 Diastolic blood pressure 70 mm[Hg] [facility] 10-04-2024 11:23-0400 Heart rate 110 /min [facility] 10-04-2024 11:23-0400 SaO2% (BldA) [Mass fraction] 96 % [facility] 10-04-2024 11:23-0400 Systolic blood pressure 150 mm[Hg] [facility] 10-04-2024 07:15-0400 Body height 180.3 cm [facility] 10-04-2024 07:15-0400 Body mass index (BMI) [Ratio] 24.27 kg/m2 [facility] 10-04-2024 07:15-0400 Body weight 78.93 kg [facility] 10-02-2024 08:18-0400 Body temperature 97.9 [degF] No Primary Care Physician [facility] 10-02-2024 08:18-0400 Diastolic blood pressure 78 mm[Hg] No Primary Care Physician [facility] 10-02-2024 08:18-0400 Heart rate 97 /min No Primary Care Physician [facility] 10-02-2024 08:18-0400 Respiratory rate 16 /min No Primary Care Physician [facility] 10-02-2024 08:18-0400 SaO2% (BldA) [Mass fraction] 98 % No Primary Care Physician [facility] 10-02-2024 08:18-0400 Systolic blood pressure 132 mm[Hg] No Primary Care Physician [facility] 10-02-2024 04:55-0400 Body height 180.34 cm No Primary Care Physician [facility] 10-02-2024 04:55-0400 Body mass index (BMI) [Ratio] 25.4 kg/m2 No Primary Care Physician [facility] 10-02-2024 04:55-0400 Body weight 83 kg No Primary Care Physician [facility] 10-02-2024 04:06-0400 Body height 180.34 cm No Primary Care Physician [facility] 10-02-2024 04:06-0400 Body mass index (BMI) [Ratio] 25.4 kg/m2 No Primary Care Physician [facility] 10-02-2024 04:06-0400 Body temperature 98.4 [degF] No Primary Care Physician [facility] 10-02-2024 04:06-0400 Body weight 83 kg No Primary Care Physician [facility] 10-02-2024 04:06-0400 Diastolic blood pressure 92 mm[Hg] No Primary Care Physician [facility] 10-02-2024 04:06-0400 Heart rate 97 /min No Primary Care Physician [facility] 10-02-2024 04:06-0400 Respiratory rate 18 /min No Primary Care Physician [facility] 10-02-2024 04:06-0400 SaO2% (BldA) [Mass fraction] 99 % No Primary Care Physician [facility] 10-02-2024 04:06-0400 Systolic blood pressure 144 mm[Hg] No Primary Care Physician [facility] 10-01-2024 14:00-0400 Body temperature 97.6 [degF] No Primary Care Physician [facility] 10-01-2024 14:00-0400 Diastolic blood pressure 73 mm[Hg] No Primary Care Physician [facility] 10-01-2024 14:00-0400 Heart rate 54 /min No Primary Care Physician [facility] 10-01-2024 14:00-0400 Respiratory rate 12 /min No Primary Care Physician [facility] 10-01-2024 14:00-0400 SaO2% (BldA) [Mass fraction] 98 % No Primary Care Physician [facility] 10-01-2024 14:00-0400 Systolic blood pressure 131 mm[Hg] No Primary Care Physician [facility] 10-01-2024 10:00-0400 Inhaled oxygen flow rate 99 L/min No Primary Care Physician [facility] 10-01-2024 01:52-0400 Body height 180.34 cm No Primary Care Physician [facility] 10-01-2024 01:52-0400 Body mass index (BMI) [Ratio] 25.7 kg/m2 No Primary Care Physician [facility] 10-01-2024 01:52-0400 Body weight 83.46 kg No Primary Care Physician [facility] 06-11-2024 07:27-0400 Diastolic blood pressure 83 mm[Hg] [facility] 06-11-2024 07:27-0400 Heart rate 80 /min [facility] 06-11-2024 07:27-0400 Respiratory rate 18 /min [facility] 06-11-2024 07:27-0400 SaO2% (BldA) [Mass fraction] 98 % [facility] 06-11-2024 07:27-0400 Systolic blood pressure 126 mm[Hg] [facility] 06-11-2024 04:18-0400 Body temperature 97.3 [degF] [facility] 06-11-2024 04:14-0400 Body height 180.3 cm [facility] 06-11-2024 04:14-0400 Body mass index (BMI) [Ratio] 24.55 kg/m2 [facility] 06-11-2024 04:14-0400 Body weight 79.83 kg [facility] 06-10-2024 22:29-0400 Body height 180.3 cm [facility] 06-10-2024 22:29-0400 Body mass index (BMI) [Ratio] 24.55 kg/m2 [facility] 06-10-2024 22:29-0400 Body weight 79.83 kg [facility] 06-10-2024 22:26-0400 Body temperature 96.3 [degF] [facility] 06-10-2024 22:26-0400 Diastolic blood pressure 96 mm[Hg] [facility] 06-10-2024 22:26-0400 Heart rate 108 /min [facility] 06-10-2024 22:26-0400 Respiratory rate 16 /min [facility] 06-10-2024 22:26-0400 SaO2% (BldA) [Mass fraction] 97 % [facility] 06-10-2024 22:26-0400 Systolic blood pressure 144 mm[Hg] [facility] 01-28-2024 13:37-0500 Body height 180.3 cm Christy Shital 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: [facility] 01-28-2024 13:37-0500 Body mass index (BMI) [Ratio] 27.06 kg/m2 Christy Shital 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: [facility] 01-28-2024 13:37-0500 Body temperature 98.4 [degF] Christy Shital 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: [facility] 01-28-2024 13:37-0500 Body weight 88 kg Christy Shital 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: [facility] 01-28-2024 13:37-0500 Diastolic blood pressure 75 mm[Hg] Christy Shital 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: [facility] 01-28-2024 13:37-0500 Heart rate 90 /min Christy Shital 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: [facility] 01-28-2024 13:37-0500 Respiratory rate 17 /min Christy Shital 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: [facility] 01-28-2024 13:37-0500 SaO2% (BldA) [Mass fraction] 98 % Christy Shital 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: [facility] 01-28-2024 13:37-0500 Systolic blood pressure 117 mm[Hg] Christy Shital 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: [facility] 06-20-2023 19:15-0400 Body temperature 97.88 [degF] OLIVIER VASQUES PUBLIC SPEAKING COACH-[employer] CUTTER HAND [facility] 06-20-2023 19:15-0400 Diastolic Blood Pressure Non-Invasive 90 mm[Hg] OLIVIER VASQUES PUBLIC SPEAKING COACH-[employer] [facility] 06-20-2023 19:15-0400 Heart rate 87 /min OLIVIER VASQUES PUBLIC SPEAKING COACH-[employer] [facility] 06-20-2023 19:15-0400 Reason For Taking VItal Signs OLIVIER VASQUES PUBLIC SPEAKING COACH-[employer] C[employer] [facility] 06-20-2023 19:15-0400 Respiratory rate 16 /min OLIVIER VASQUES PUBLIC SPEAKING COACH-[employer] [facility] 06-20-2023 19:15-0400 Systolic Blood Pressure Non-Invasive 144 mm[Hg] OLIVIER VASQUES PUBLIC SPEAKING COACH-BEDSPREAD CUTTER HAND [facility] 06-20-2023 17:05-0400 Body temperature 97.88 [degF] OLIVIER VASQUES PUBLIC SPEAKING COACH-BEDSPREAD CUTTER HAND [facility] 06-20-2023 17:05-0400 Diastolic Blood Pressure Non-Invasive 87 mm[Hg] OLIVIER VASQUES PUBLIC SPEAKING COACH-BEDSPREAD CUTTER HAND [facility] 06-20-2023 17:05-0400 Heart rate 93 /min OLIVIER VASQUES PUBLIC SPEAKING COACH-BEDSPREAD CUTTER HAND [facility] 06-20-2023 17:05-0400 Reason For Taking VItal Signs OLIVIER VASQUES PUBLIC SPEAKING COACH-BEDSPREAD CUTTER HAND [facility] 06-20-2023 17:05-0400 Respiratory rate 14 /min OLIVIER VASQUES PUBLIC SPEAKING COACH-BEDSPREAD CUTTER HAND [facility] 06-20-2023 17:05-0400 Systolic Blood Pressure Non-Invasive 134 mm[Hg] OLIVIER VASQUES PUBLIC SPEAKING COACH-BEDSPREAD CUTTER HAND [facility] 06-20-2023 14:30-0400 Diastolic Blood Pressure Non-Invasive 93 mm[Hg] OLIVIER VASQUES PUBLIC SPEAKING COACH-BEDSPREAD CUTTER HAND [facility] 06-20-2023 14:30-0400 Systolic Blood Pressure Non-Invasive 138 mm[Hg] OLIVIER VASQUES PUBLIC SPEAKING COACH-BEDSPREAD CUTTER HAND [facility] 06-20-2023 14:24-0400 Body temperature 97.52 [degF] OLIVIER VASQUES PUBLIC SPEAKING COACH-BEDSPREAD CUTTER HAND [facility] 06-20-2023 14:24-0400 Heart rate 80 /min OLIVIER VASQUES PUBLIC SPEAKING COACH-BEDSPREAD CUTTER HAND [facility] 06-20-2023 14:24-0400 Reason For Taking VItal Signs OLIVIER VASQUES PUBLIC SPEAKING COACH-BEDSPREAD CUTTER HAND [facility] 06-20-2023 14:24-0400 Respiratory rate 14 /min OLIVIER VASQUES PUBLIC SPEAKING COACH-BEDSPREAD CUTTER HAND [facility] 06-20-2023 05:41-0400 Body height 180.3 cm OLIVIER VASQUES PUBLIC SPEAKING COACH-BEDSPREAD CUTTER HAND [facility] 06-20-2023 05:41-0400 Body weight 95.3 kg OLIVIER VASQUSE PUBLIC SPEAKING COACH-BEDSPREAD CUTTER HAND [facility] 06-20-2023 05:41-0400 Body weight 29.32 kg/m2 OLIVIER VASQUES PUBLIC SPEAKING COACH-BEDSPREAD CUTTER HAND [facility] 06-20-2023 05:35-0400 Blood Pressure Location OLIVIER VASQUES PUBLIC SPEAKING COACH-[employer]SPREAD C[employer] [facility] 06-20-2023 04:49-0400 Blood Pressure Location OLIVIER LAYO PUBLIC SPEAKING COACH-BEDSPREAD C[employer]TER HAND [facility] 06-20-2023 04:49-0400 Blood Pressure Method OLIVIER LAYO PUBLIC SPEAKING COACH-[employer]EDSPREAD CUTTER HAND [facility] 06-20-2023 04:49-0400 Heart rate 80 /min OLIVIER VASQUES PUBLIC SPEAKING COACH-BEDSPREAD CUTTER HAND [facility] 06-20-2023 04:18-0400 Blood Pressure Location OLIVIER LAYO PUBLIC SPEAKING COACH-BEDSPREAD CUTTER HAND [facility] 06-20-2023 04:18-0400 Blood Pressure Method OLIVIER LAYO PUBLIC SPEAKING COACH-BEDSPREAD CUTTER HAND [facility] 06-20-2023 04:18-0400 Heart rate 87 /min OLIVIER VASQUES PUBLIC SPEAKING COACH-[employer]EDSPREAD C[employer]TER HAND [facility] 06-20-2023 03:04-0400 Blood Pressure Method OLIVIER LAYO PUBLIC SPEAKING COACH-BEDSPREAD CUTTER HAND [facility] 06-20-2023 03:04-0400 Heart rate 107 /min OLIVIER VASQUES PUBLIC SPEAKING COACH-BEDSPREAD CUTTER HAND [facility] 06-20-2023 02:15-0400 Body height 180.3 cm OLIVIER VASQUES PUBLIC SPEAKING COACH-BEDSPREAD CUTTER HAND [facility] 06-20-2023 02:15-0400 Body weight 95 kg OLIVIER VASQUES PUBLIC SPEAKING COACH-BEDSPREAD CUTTER HAND [facility] 06-20-2023 00:48-0400 Body temperature 97.4 [degF] No Primary Care Physician [facility] 06-20-2023 00:48-0400 Diastolic blood pressure 85 mm[Hg] No Primary Care Physician [facility] 06-20-2023 00:48-0400 Heart rate 68 /min No Primary Care Physician [facility] 06-20-2023 00:48-0400 Respiratory rate 16 /min No Primary Care Physician [facility] 06-20-2023 00:48-0400 SaO2% (BldA) [Mass fraction] 100 % No Primary Care Physician [facility] 06-20-2023 00:48-0400 Systolic blood pressure 151 mm[Hg] No Primary Care Physician [facility] 06-19-2023 20:58-0400 Body height 180.34 cm No Primary Care Physician [facility] 06-19-2023 20:58-0400 Body mass index (BMI) [Ratio] 29 kg/m2 No Primary Care Physician [facility] 06-19-2023 20:58-0400 Body weight 94.46 kg No Primary Care Physician [facility] 05-01-2023 13:42-0400 Body temperature 97.4 [degF] No Primary Care Physician [facility] 05-01-2023 13:42-0400 Diastolic blood pressure 78 mm[Hg] No Primary Care Physician [facility] 05-01-2023 13:42-0400 Heart rate 55 /min No Primary Care Physician [facility] 05-01-2023 13:42-0400 Respiratory rate 17 /min No Primary Care Physician [facility] 05-01-2023 13:42-0400 SaO2% (BldA) [Mass fraction] 98 % No Primary Care Physician [facility] 05-01-2023 13:42-0400 Systolic blood pressure 138 mm[Hg] No Primary Care Physician [facility] 05-01-2023 06:45-0400 Body height 180.34 cm No Primary Care Physician [facility] 05-01-2023 06:45-0400 Body mass index (BMI) [Ratio] 28 kg/m2 No Primary Care Physician [facility] 05-01-2023 06:45-0400 Body weight 91.4 kg No Primary Care Physician [facility] 05-01-2023 05:52-0400 Body temperature 97.1 [degF] No Primary Care Physician [facility] 05-01-2023 05:52-0400 Diastolic blood pressure 84 mm[Hg] No Primary Care Physician [facility] 05-01-2023 05:52-0400 Heart rate 96 /min No Primary Care Physician [facility] 05-01-2023 05:52-0400 Respiratory rate 14 /min No Primary Care Physician [facility] 05-01-2023 05:52-0400 SaO2% (BldA) [Mass fraction] 99 % No Primary Care Physician [facility] 05-01-2023 05:52-0400 Systolic blood pressure 124 mm[Hg] No Primary Care Physician [facility] 05-01-2023 05:05-0400 Body height 180.34 cm No Primary Care Physician [facility] 03-23-2023 10:40-0500 Body temperature 98.3 [degF] No Primary Care Physician [facility] 03-23-2023 10:40-0500 Diastolic blood pressure 84 mm[Hg] No Primary Care Physician [facility] 03-23-2023 10:40-0500 Heart rate 87 /min No Primary Care Physician [facility] 03-23-2023 10:40-0500 Respiratory rate 16 /min No Primary Care Physician [facility] 03-23-2023 10:40-0500 SaO2% (BldA) [Mass fraction] 96 % No Primary Care Physician [facility] 03-23-2023 10:40-0500 Systolic blood pressure 133 mm[Hg] No Primary Care Physician [facility] 03-23-2023 05:34-0500 Body temperature 98.3 [degF] No Primary Care Physician [facility] 03-23-2023 05:34-0500 Diastolic blood pressure 58 mm[Hg] No Primary Care Physician [facility] 03-23-2023 05:34-0500 Heart rate 86 /min No Primary Care Physician [facility] 03-23-2023 05:34-0500 Respiratory rate 17 /min No Primary Care Physician [facility] 03-23-2023 05:34-0500 SaO2% (BldA) [Mass fraction] 98 % No Primary Care Physician [facility] 03-23-2023 05:34-0500 Systolic blood pressure 113 mm[Hg] No Primary Care Physician [facility] 03-23-2023 01:01-0500 Body height 180.34 cm No Primary Care Physician [facility] 03-23-2023 01:01-0500 Body mass index (BMI) [Ratio] 27.6 kg/m2 No Primary Care Physician [facility] 03-23-2023 01:01-0500 Body weight 89.81 kg No Primary Care Physician [facility] 03-22-2023 22:04-0500 Body height 180.34 cm No Primary Care Physician [facility] 03-22-2023 22:04-0500 Body mass index (BMI) [Ratio] 27.6 kg/m2 No Primary Care Physician [facility] 03-22-2023 22:04-0500 Body temperature 97.5 [degF] No Primary Care Physician [facility] 03-22-2023 22:04-0500 Body weight 89.81 kg No Primary Care Physician [facility] 03-22-2023 22:04-0500 Diastolic blood pressure 86 mm[Hg] No Primary Care Physician [facility] 03-22-2023 22:04-0500 Heart rate 108 /min No Primary Care Physician [facility] 03-22-2023 22:04-0500 Respiratory rate 18 /min No Primary Care Physician [facility] 03-22-2023 22:04-0500 SaO2% (BldA) [Mass fraction] 96 % No Primary Care Physician [facility] 03-22-2023 22:04-0500 Systolic blood pressure 135 mm[Hg] No Primary Care Physician [facility] 08-07-2022 08:32-0400 Body temperature 97.9 [degF] Dr. Fior Ridley Work Phone: [facility] 08-07-2022 08:32-0400 Diastolic blood pressure 63 mm[Hg] Dr. Fior Ridley Work Phone: [facility] 08-07-2022 08:32-0400 Heart rate 81 /min Dr. Fior Ridley Work Phone: [facility] 08-07-2022 08:32-0400 Respiratory rate 18 /min Dr. Fior Ridley Work Phone: [facility] 08-07-2022 08:32-0400 SaO2% (BldA) [Mass fraction] 99 % Dr. Fior Ridley Work Phone: 7(295)[phone] [place] [address] 08-07-2022 08:32-0400 Systolic blood pressure 125 mm[Hg] Dr. Fior Ridley Work Phone: 0(269)328-945807 [place] [address] 08-05-2022 18:27-0400 Body height 180.[address] Fior Ridley Work Phone: 3(974)530-968107 [place] [address] 08-05-2022 18:27-0400 Body mass index (BMI) [Ratio] 24.4 kg/m2 Dr. Fior Ridley Work Phone: 0(598)706-023107 [place] [address] 08-05-2022 18:27-0400 Body weight 79.[address] Fior Ridley Work Phone: 4(543)450-414607 [place] [address] 08-05-2022 17:22-0400 Respiratory rate 18 /min Dr. Fior Ridley Work Phone: 0(979)071-300207 [place] [address] 08-05-2022 17:11-0400 Body temperature 97.7 [degF] Dr. Fior Ridley Work Phone: 3(224)039-220007 [place] [address] 08-05-2022 17:11-0400 Diastolic blood pressure 68 mm[Hg] Dr. Fior Ridley Work Phone: 1(899)134-125107 [place] [address] 08-05-2022 17:11-0400 Heart rate 81 /min Dr. Fior Ridley Work Phone: 4(324)860-220407 [place] [address] 08-05-2022 17:11-0400 SaO2% (BldA) [Mass fraction] 97 % Dr. Fior Ridley Work Phone: 1(521)437-934207 [place] [address] 08-05-2022 17:11-0400 Systolic blood pressure 124 mm[Hg] Dr. Fior Ridley Work Phone: 1(522)538-492507 [place] [address] 08-05-2022 15:22-0400 Body height 180.[address] Fior Ridley Work Phone: 7(759)167-525607 [place] [address] 08-05-2022 15:22-0400 Body mass index (BMI) [Ratio] 27.1 kg/m2 Dr. Fior Ridley Work Phone: [facility] 08-05-2022 15:22-0400 Body weight 88.[address] Fior Ridley Work Phone: [facility] Encounters Encounter Date Encounter Type Care Provider Facility Start: 10-19-2024 Non-patient / Non-visit Dr. Yamilex Carter MD -[facility] Work Phone: Start: 10-18-2024 ambulatory Ingrid Reece Facility:[facility] Start: 10-18-2024 End: 10-19-2024 Evaluation and management of inpatient Dr. Ingrid Reece MD -[facility] Work Phone: Start: 10-18-2024 End: 10-18-2024 Emergency department patient visit No Primary Care Physician -Emergency Department Work Phone: Start: 10-18-2024 End: 10-18-2024 ambulatory MARILOU VASQUEZ [facility] Start: 10-12-2024 End: 10-14-2024 ambulatory PHYSICIAN NO [facility] Start: 10-12-2024 End: 10-14-2024 Evaluation and management of inpatient Demetrius Wilder MD Work Phone: [facility] Rapid Diagnosis Start: 10-12-2024 End: 10-12-2024 Emergency department patient visit PHYSICIAN NO [facility] Start: 10-08-2024 End: 10-11-2024 Evaluation and management of inpatient Corona Guerrero MD Work Phone: [facility] Trauma Start: 10-04-2024 End: 10-05-2024 Evaluation and management of inpatient Dawson Plascencia DO Work Phone: [facility] Intermediate Care Unit Start: 10-02-2024 End: 10-06-2024 Emergency department patient visit PHYSICIAN NO [facility] Start: 10-02-2024 End: 10-04-2024 Evaluation and management of inpatient Geoff Juniormalorie Cadena DO Work Phone: [facility] Trauma Start: 10-02-2024 Non-patient / Non-visit Dr. Rachel martinez MD -[facility] Work Phone: Start: 10-02-2024 End: [...] 10-01-2024 Emergency department patient visit SHWETA RAYA [facility] Start: 09-29-2024 End: 09-30-2024 Emergency department patient visit [facility] Start: 09-27-2024 End: 09-28-2024 Emergency department patient visit [facility] Start: 06-24-2024 End: 06-24-2024 Emergency department patient visit [facility] Start: 06-11-2024 End: 06-11-2024 Emergency department patient visit [facility] Comment on above: Chest pain, unspecif ied type (Primary Dx); Methamphetamine abuse (HCC); Alcohol abuse Start: 06-10-2024 End: 06-10-2024 Emergency department patient visit [facility] Start: 01-28-2024 End: 01-28-2024 Office outpatient visit 15 minutes Christy 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: [facility] Comment on above: Influenza A (Primary Dx); URI with cough and congestion; Generalized body aches Start: 01-28-2024 End: 01-28-2024 ambulatory [facility] Start: 07-25-2023 End: 07-25-2023 Emergency department patient visit Physician No [facility] Start: 06-20-2023 End: 06-20-2023 Emergency department patient visit KATYA GRIFFITH MD Facility:[facility] Start: 06-20-2023 End: 06-20-2023 Observation OLIVIER VASQUES PUBLIC SPEAKING COACH-[employer] C[employer]TER [employer] [facility] Start: 06-19-2023 End: 06-20-2023 Emergency department patient visit No Primary Care Physician [facility]-Emergency Department Work Phone: Start: 05-01-2023 End: 05-01-2023 Evaluation and management of inpatient No Primary Care Physician [facility]-Intensive Care Unit Work Phone: Start: 03-23-2023 Non-patient / Non-visit No [facility] Physician [facility] Work Phone: Start: 03-23-2023 End: 03-23-2023 Evaluation and management of inpatient [facility]: Start: 08-07-2022 Non-patient / Non-visit Dr. Franklin Ridley Work Phone: [facility] Start: 08-06-2022 Non-patient / Non-visit Dr. Franklin Ridley Work Phone: [facility] Start: 08-05-2022 Non-patient / Non-visit Dr. Franklin Ridley Work Phone: [facility] Start: 08-05-2022 End: 08-07-2022 Evaluation and management of inpatient Dr. Fior Ridley Work Phone: [facility] Surgical 3 Procedures Date Procedure Procedure Detail Performing Clinician Start: 10-19-2024 Estimated creatinine clearance No Primary Care Physician Start: 10-18-2024 Estimated creatinine clearance No Primary Care Physician Start: 10-18-2024 Methadone measuremen t, urine No Primary Care Physician Start: 10-18-2024 Urnls dip stick/tabl et reagent auto microscopy No Primary Care Physician Start: 10-14-2024 Creatinine blood Daisy Karina Hampton [employer] Work Phone: Start: 10-13-2024 EMS RUN SHEET Generic E ms Provider Start: 10-13-2024 Basic metabolic pane l calcium total Akilah Cervantes [employer] Work Phone: Start: 10-12-2024 Blood ethanol measurement Akilah Cervantes [employer] Work Phone: Start: 10-12-2024 Basic metabolic pane [...] mnt chem analyzers pr date Renae Piña [employer] Work Phone: Start: 10-04-2024 Blood count complete automated Renae Piña [employer] Work Phone: Start: 10-04-2024 Blood ethanol measurement Renae Piña [employer] Work Phone: Start: 10-04-2024 Blood ethanol measurement Shellie Herrmann DO Work Phone: Start: 10-03-2024 Drug tst prsmv instr mnt chem analyzers pr date Leonel Colón Start: 10-03-2024 Basic metabolic pane l calcium total Leonel Colón Start: 10-02-2024 Blood count complete automated Holli Amaya [employer] Work Phone: Start: 10-02-2024 Blood group typing [...] metabolic pane l calcium total Holli Amaya [employer] Work Phone: Start: 10-02-2024 Blood ethanol measurement [...] Comment: URIN ALYSIS Performed By: #### [id number] #### [place] [id number] Start: 09-28-2024 Urinalysis SHWETA Gibson Comment on above: Result Comment: URIN ALYSIS Performed By: #### [id number] ####[place] [id number] Start: 06-11-2024 Basic metabolic pane l calcium total Easton Hesham PUBLIC SPEAKING COACH - [employer] C[employer] HAND Work Phone: Start: 06-11-2024 Drug test def 1-7 classes Easton Hesham PUBLIC SPEAKING COACH - [employer] HAND Work Phone: Start: 06-11-2024 Radiologic exam ches t 2 views Easton Hesham PUBLIC SPEAKING COACH - [employer] Work Phone: Start: 06-11-2024 Ecg routine ecg w/le ast 12 lds trcg only w/o i&r Arnold Olivera MD Work Phone: Start: 01-28-2024 Sars-cov-2 detection by dna/rna Christy Retana 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: Start: 01-28-2024 Infectious agent dna /rna influenza 1st 2 types Christy Retana 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: Start: 06-19-2023 Plain chest X-ray No Pr imary Care Physician Start: 06-19-2023 SARS-CoV-2, Influenz a & RSV (PCR) No Primary Care Physician Plan of Treatment Date Care Activity Detail Author Start: 11-06-2071 RSV Immunization for Adults (1 - 1-dose 75+ series) RSV Immunization for Adults (1 - 1-dose 75+ series) [facility] Start: 2046 Zoster Vaccines (1 of 2) Zoster Vaccines (1 of 2) [facility] Start: 10-28-2024 End: 10-28-2024 Patient encounter procedure 10/28/2024 10:20 AM EDT Office Visit [facility] [address] [facility] [address] [place] [address] Discharge Disposition: Home [facility] Start: 10-23-2024 End: 10-23-2024 Follow-up encounter 10/23/2024 10:20 AM EDT Follow-Up [facility] [address] [facility] [address] [place] [address] Anjel Duval PA-C [address] [facility] [address] [place] [address] [facility] Start: 10-20-2024 End: 10-20-2024 Patient encounter procedure 10/20/2024 10:20 AM EDT Office Visit [facility] [address] [address] [place] [address] Discharge Disposition: Home [facility] Start: 10-19-2024 Patient discharge [facility] Start: 10-18-2024 Following clinical pathway protocol [facility] Start: 10-18-2024 End: 10-18-[address] [facility] Start: 10-18-2024 Assessment of risk of venous thromboembolism [facility] Start: 10-18-2024 Insertion of catheter into peripheral vein [facility] Start: 10-18-2024 Providing care according to standard [facility] Start: 10-18-2024 Provision of activity privileges [facility] Start: 10-18-2024 Admission procedure [facility] Start: 10-18-2024 Hospital admission, emergency, from emergency room, medical nature [facility] Start: 10-18-[address] [facility] Start: 10-18-[address] [facility] Start: 10-18-2024 Patient referral to dietitian [facility] Start: 10-14-2024 End: 10-14-2024 Incision & drainage abscess simple/single INCISION AND DRAINAGE HEAD/NECK UNK 10/14/2024 10:09 AM EDT [facility] Start: 10-14-2024 End: 10-14-2024 Removal implant deep REMOVAL ARCHBAR UNK 10/14/2024 10:09 AM EDT [facility] Start: 10-13-2024 End: 10-13-2024 Admission to same day surgery center 10/13/2024 2:45 PM EDT - 10/13/2024 3:35 PM EDT Surgery [facility] [address] [place] [address] Marilou Vasquez MD [address] [place] [address] MAXILLOMANDIBULAR FIXATION SCREW REMOVAL [facility] Comment on above: MAXILLOMANDIBULAR FIXATION SCREW REMOVAL Start: 10-13-2024 End: 10-13-2024 Incision & drainage abscess simple/single INCISION AND DRAINAGE HEAD/NECK K 10/13/2024 2:45 PM EDT [facility] Start: 10-13-2024 End: 10-13-2024 Removal implant deep REMOVAL ARCHBAR [facility] 10/13/2024 2:45 PM EDT [facility] Start: 10-12-2024 Influenza vaccination Influenza Vaccine (Season Ended) [facility] Start: 10-04-2024 End: 10-04-2024 Open tx comp fx malar w/internal fx&mult surg OPEN REDUCTION INTERNAL FIXATION MANDIBLE MAXILLA UNK 10/04/2024 7:25 AM EDT [facility] Start: 10-02-2024 Emergency department visit high/urgent severity EMERGENCY DEPT VISIT MOD MDM [facility] Start: 10-01-2024 Following clinical pathway protocol [facility] Start: 10-01-2024 Admission procedure [facility] Start: 10-01-2024 Assessment of risk of venous thromboembolism [facility] Start: 10-01-2024 Introduction of urinary catheter [facility] Start: 10-01-2024 Notification of physician [facility] Start: 10-01-2024 Oxygen therapy [facility] Start: 10-01-2024 Referral to service [facility] Start: 10-01-2024 Vital signs measurements [facility] Start: 10-01-2024 Provision of activity privileges [facility] Start: 10-01-2024 Verification routine [facility] Start: 10-01-2024 End: 10-01-[address] [facility] Start: 10-01-[address] [facility] Start: 10-01-2024 Patient discharge [facility] Start: 10-13-2023 COVID-19 Vaccine () COVID-19 Vaccine () [facility] Start: 10-13-2023 Influenza vaccination Influenza Vaccine (#1) [facility] Start: 06-20-[address] [facility] Start: 05-01-2023 Following clinical pathway protocol [facility] Start: 05-01-2023 Assessment of risk of venous thromboembolism [facility] Start: 05-01-2023 Inhalation therapy procedure [facility] [facility] Start: 05-01-2023 Introduction of urinary catheter [facility] Start: 05-01-2023 Notification of physician [facility] Start: 05-01-2023 Oxygen therapy [facility] Start: 05-01-2023 Provision of activity privileges [facility] Start: 05-01-2023 Referral to service [facility] Start: 05-01-2023 Vital signs measurements [facility] Start: 05-01-[address] [facility] Start: 05-01-2023 Verification routine [facility] Start: 05-01-2023 Admission procedure [facility] Start: 05-01-2023 Hospital admission, emergency, from emergency room, medical nature [facility] Start: 05-01-2023 Patient discharge [facility] Start: 05-01-[address] [facility] Start: 03-23-2023 Patient discharge [facility] Start: 03-23-2023 Following clinical pathway protocol [facility] Start: 03-23-2023 Assessment of risk of venous thromboembolism [facility] Start: 03-23-2023 Notification of physician [facility] Start: 03-23-2023 Provision of activity privileges [facility] Start: 03-23-2023 Vital signs measurements [facility] Start: 03-23-[address] [facility] Start: 03-23-2023 Gamma glutamyl transferase measurement [facility] Start: 03-23-2023 Prothrombin time [facility] Start: 03-23-2023 Admission procedure [facility] Start: 08-07-2022 Patient discharge [facility] Start: 08-05-2022 Following clinical pathway protocol [facility] Start: 08-05-2022 Ambulation without limitation [facility] Start: 08-05-2022 Assessment of risk of venous thromboembolism [facility] Start: 08-05-2022 Catheterization of vein [facility] Start: 08-05-2022 Insertion of catheter into peripheral vein [facility] Start: 08-05-2022 Providing care according to standard [facility] Start: 08-05-2022 Referral to service [facility] Start: 08-05-[address] [facility] Start: 08-05-2022 Verification routine [facility] Start: 08-05-2022 Admission procedure [facility] Start: 08-05-[address] [facility] Start: 11-06-2015 DTaP/Tdap/Td Vaccines (1 - Tdap) DTaP/Tdap/Td Vaccines (1 - Tdap) [facility] Start: 11-06-2015 Hepatitis B Vaccines (1 of 3 - 19+ 3-dose series) Hepatitis B Vaccines (1 of 3 - 19+ 3-dose series) [facility] Start: 11-06-2015 Pneumococcal Vaccine: Pediatrics (0 to 5 Years) and At-Risk Patients (6 to 49 Years) (1 of 2 - PCV) Pneumococcal Vaccine: Pediatrics (0 to 5 Years) and At-Risk Patients (6 to 49 Years) (1 of 2 - PCV) [facility] Start: 2014 Hepatitis C screening Hepatitis C Screening [facility] Start: 2009 Varicella vaccination Varicella Vaccines (1 of 2 - 13+ 2-dose series) [facility] Start: 2008 Depression Screening Depression Screening [facility] Start: 1997 MMR Vaccines (1 of 1 - Standard series) MMR Vaccines (1 of 1 - Standard series) [facility] Start: 1996 HIV screening HIV Screening [facility] Amphetamines [Presen ce] in Urine by Screen method >1000 ng/mL [facility] Anion gap in Serum o r Plasma [facility] Bacteria identified in Blood by Culture Blood Culture Aerobic/Anaerobic Microbiology [facility] 10/12/2024 4:45 PM EDT [facility] Work Phone: Benzodiazepine measurement, urine [facility] BUN/Creatinine ratio [facility] Calcium [Mass/volume ] in Serum or Plasma [facility] Carbon dioxide, tota l [Moles/volume] in Central venous blood [facility] Cocaine measurement, urine [facility] Creatinine [Mass/vol ume] in Serum or Plasma [facility] Ethanol [Mass/volume ] in Serum or Plasma [facility] fentaNYL [Presence] in Urine by Screen method [facility] Gamma glutamyl transferase measurement [facility] Glucose [Mass/volume ] in Serum or Plasma [facility] INR in Blood by Coagulation assay [facility] Measurement of renal function [facility] Methadone measuremen t, urine [facility] Patient Education [facility] Work Phone: Patient referral [facility] Work Phone: Phencyclidine [Prese nce] in Urine [facility] Potassium measurement [facility] Serum chloride measurement [facility] Sodium measurement [facility] Urea nitrogen [Mass/volume] in Serum or Plasma [facility] Urine cannabinoid measurement [facility] Urine opiate measurement [facility] End: 10-02-2024 US Abdomen limited [facility] Work Phone: Comment on above: Once for 1 Occurrences starting 10/03/19 until 10/02/2024 Immunizations Immunization Date Immunization Notes Care Provider Sumi fenton 10-02-2024 tetanus toxoid, redu anshul diphtheria toxoid, and acellular pertussis vaccine, adsorbed No Primary Care Physician [facility] Payers Date Payer Category Payer Self-pay 2023 Medicaid (Managed Care) [facility] MEDICA[facility] [id number] 2023 Medicaid HMO [facility]DM [id number] 2023 Private Health Insurance [id number] 1996 Unknown [id number] 2.0.1.703509.3.579.2. 627 1996 Unknown [id number] 2.840.1.137005.3.579.2. 204 1996 Unknown [id number] 2.0.1.733732.3.579.2. 651 1996 Unknown [id number] 2.840.1.501096.3.579.2. 651 1996 Unknown [id number] 2.840.1.455615.3.579.2. 651 1996 Unknown [id number] 2.16840.1.574371.3.579.2. 902 1996 Unknown [id number] 2.16840.1.840024.3.579.2. 902 1996 Unknown [id number] 2.16.840.1.754979.3.579.2. 902 1996 Unknown [id number] 2.16.840.1.353671.3.579.2. 902 1996 Unknown [id number] 2.16.840.1.073083.3.579.2. 902 1996 Unknown [id number] 2.16.840.1.305869.3.579.2. 902 1996 Unknown [id number] 2.16.840.1.763563.3.579.2. 902 Unknown [id number] 2.16.840.1.527136.3.579.2. 462 Unknown [id number] 2.16.840.1.797429.3.579.2. 462 Unknown [id number] 2.16.840.1.488122.3.579.2. 462 Unknown [id number] 2.16.840.1.744335.3.579.2. 462 Unknown [id number] 2.16.840.1.071252.3.579.2. 462 Unknown [id number] 2.16.840.1.576250.3.579.2. 462 Unknown [id number] 2.16.840.1.335572.3.579.2. 462 Unknown [id number] 2.16.840.1.599027.3.579.2. 462 Unknown [id number] 2.16.840.1.394267.3.579.2. 462 Social History Date Type Detail Facility Start: 08-05-2022 End: 06-19-2023 Tobacco smoking status DEIS Unknown if ever smoked [facility] Start: 1995 Sex Assigned At Male [facility] Start: 06-20-2023 Tobacco smoking status Light tobacco smoker (finding) [facility] Start: 1995 Sex assigned at Not on file [facility] Start: 01-28-2024 Sex Male (finding) [facility] Start: 06-11-2024 End: 10-12-2024 Gender identity Not on file [facility] Start: 06-11-2024 End: 10-12-2024 History of Social function [facility] How often to you hav e a drink containing alcohol? 4 or more times a week [facility] How many standard dr inks containing alcohol do you have on a typical day? 7 to 9 [facility] How often do you hav e 6 or more drinks on 1 occasion? Daily or almost daily [facility] Start: 10-01-2024 End: 10-18-2024 Tobacco smoking status DEIS Smokes tobacco daily (finding) [facility] History of tobacco use Cigarette Smoker [facility] Start: 10-02-2024 Tobacco use and exposure Smokeless tobacco non-user [facility] Start: 10-04-2024 End: 10-14-2024 Alcoholic beverage intake Current drinker of alcohol (finding) [facility] Has the [employer], [place], or water [employer] threatened to shut off services in your home in past 12Mo Yes [facility] Within the last year , have you been afraid of your partner or ex-partner? No [facility] (I/We) worried [facility] er (my/our) food would run out before (I/we) got money to buy more. Often true [facility] In the past 12 month s, has lack of transportation kept you from medical appointments or from getting medications? Yes [facility] Start: 10-02-2024 Alcohol Comment 15-20 tall boys daily, last drink yesterday - 10/02/24 [facility] Start: 10-12-2024 Alcohol Comment 5 tall boys daily, last drink today [facility] Medical Equipment Procedure Code Equipment Code Equipment Origin al Text Equipment Identifier Dates Sealant 5ml Hemostatic Matrix Fast Prep Floseal W/ Recothrom - [id number] Start: 10-04-2024 Powder 3gm Hemostatic Perclot 9cm Std Tip - [id number] Start: 10-04-2024 Screw 2 X 12mm M mf Self-Drill - [id number] Start: 10-04-2024 Screw 2 X 8mm Mm f Self-Drill - [id number] Start: 10-04-2024 Screw 2 X 12mm M mf Self-Drill - [id number] Start: 10-14-2024 Goals Date Patient Goal Desired Activity /State Functional Status Date Assessment Result Facility 10-19-2024 Functional status Up [facility] Work Phone: 10-01-2024 Functional status Up [facility] [place] [facility] Work Phone: 06-20-2023 Functional Status Door open, Room check performed [facility] 06-20-2023 Functional Status [facility] 06-20-2023 Functional Status Ambulation in Room [facility] 06-20-2023 Functional Status [facility] 06-20-2023 Functional Status [facility] 06-20-2023 Functional Status [facility] 06-20-2023 Functional Status [facility] 06-20-2023 Functional Status Environmental Safety Implemented Adequate room lighting, Bed in low position, Call device within reach [facility] 05-01-2023 Functional status Patient Activity Up [facility] Work Phone: 03-23-2023 Functional status Activity Ability Indepe ndent [facility] Work Phone: 08-07-2022 Functional status Up [facility] [place] [facility] Work Phone: Mental Status Date Assessment Result Facility 10-19-2024 Cognitive function Voice/Name [facility] Work Phone: 10-18-2024 Cognitive function Level Of Cons ciousness Awake;Alert;Appropriate;Follow s Commands [facility] Work Phone: 10-02-2024 Cognitive function Voice/Name [facility] Work Phone: 10-01-2024 Cognitive function Voice/Name [facility] Work Phone: 06-20-2023 Mental Status Orientation Oriented x 4 [facility] 06-20-2023 Mental Status [facility] 06-20-2023 Mental Status [facility] 06-19-2023 Cognitive function Level Of Cons ciousness Awake;Alert;Appropriate [facility] Work Phone: 03-23-2023 Cognitive function Appropriate;Cooperativ e [facility] Work Phone: 08-07-2022 Cognitive function Voice/Name;Touch/Shaki ng [facility] Work Phone: Clinical Notes 08-05-2022 to 10-19-2024 Note Date & Type Note Facility 10-19-2024 Progress note Note Date/Time October 19, 2024 10:26am [facility] Medical Records Department [address] [place] [address] Progress Note - Hospitalist 10/19/24 1022 MR#: [id number] Acct: [id number] Name: DAISYKADEKylah REYNOLDS Rep #:[id number] : 1995 28 From: Pratik gale MD PCP: Care Physician,No Primary Status :ADM IN Location: [place] [address] Subjective Subjective CINA score of 1 with [...] Clarity Clear, Urine pH 5.0, Ur Specific [place] 1.025, Urine Protein 30 H, Urine Glucose [...] 81.9 H, Lymph % (Auto) 11.1 L, Mcpherson % (Auto) 5.0, Eos % (Auto) 0.5, [...] % (Auto) 58.2, Lymph % (Auto) 28.1, Mcpherson % (Auto) 9.2, Eos % (Auto) 2.7, [...] DVT: Lovenox Charges/Coding Visit Charges Inpatient E&M: 08545 Subs Hosp L2 10/19/24 1026 <Electronically signed by Pratik Carter MD> Cosigner Signature (if applicable): CC: ~ Signed [facility] Work Phone: 1(351) 579-277009-08-2025 Progress note [facility] Medical Records Department [address] [place] [address] Progress Note - Hospitalist 10/19/24 1022 MR#: [id number] Acct: [id number] Name: KADE GONZALEZ Rep #:[id number] : 1995 28 From: Pratik gale MD PCP: Care Physician,No Primary Status :ADM IN Location: [place] [address] Subjective Subjective CINA score of 1 with [...] Clarity Clear, Urine pH 5.0, Ur Specific [place] 1.025, Urine Protein 30 H, Urine Glucose [...] 81.9 H, Lymph % (Auto) 11.1 L, Mcpherson % (Auto) 5.0, Eos % (Auto) 0.5, [...] % (Auto) 58.2, Lymph % (Auto) 28.1, Mcpherson % (Auto) 9.2, Eos % (Auto) 2.7, [...] opiate use ? Continue with the [facility] protocol with as needed Ativan [...] DVT: Lovenox Charges/Coding Visit Charges Inpatient E&M: 96295 Subs Hosp L2 10/19/24 1026 Cosigner Signature (if applicable): CC: ~ Signed [facility]09-07-2025 Discharge summary Author Bairon Dee [facility] Note Date/Time October 18, 2024 9:11pm [facility] Medical Records Department [address] [place] [address] Emergency Department Summary 10/18/24 MR#: [id number] Acct: [id number] Name: KADE GONZALEZ Rep #:[id number] : 1995 28 From: Bairon Clarke PCP: Care Physician,No Primary Status :ADM IN Location: [facility] [id number] HPI History of Present Illness Chief Complaint: [...] 100 100 Oxygen Delivery Method Room Air [facility] Narrative Medical decision making narrative: HISTORY OF [...] from others: none Consults: Hospitalist (Dr. Reece) [facility] Narrative: Patient was initially mildly tachycardic at [...] abuse 3. Polysubstance abuse Dispo: Admit to [facility] via RAMP program This note was generated with [employer] dictation software. It may contain incorrectwords, spelling, [...] 81.9 H Lymph % (Auto) 11.1 L Mcpherson % (Auto) 5.0 Eos % (Auto) 0.5 [...] Clarity Clear Urine pH 5.0 Ur Specific [place] 1.025 Urine Protein 30 H Urine Glucose [...] Discharge Plan Disposition Disposition: Acute Care Hospital [facility] Discharge Date/Time: 10/18/24 18:55 What to do if you have Problems For any increased pain, shortness of breath, bleeding, nausea or vomiting, chestpain, or any unexpected problems, contact your Primary Care Provider. Call [facility] ([phone]) or report to the closest Emergency Room. Call 911 if necessary. 10/18/242110 <Electronically signed by Bairon Dee DO> Cosigner Signature (if applicable): CC: No Primary Care Physician ~ Signed [facility] Work Phone: 1(654) 302-988009-07-2025 History and physical note Author Ingrid Reece [facility] Note Date/Time October 18, 2024 7:56pm [facility] Medical Records Department [address] [place] [address] H&P Exam - Hospitalist 10/18/24 1840 MR#: [id number] Acct: [id number] Name: KADE GONZALEZ Rep #:[id number] : 1995 28 From: Ingrid Reece MD PCP: Care Physician,No Primary Status :ADM IN Location: [place]3 [id number] [facility] - General General Date of Admission: 10/18/24 Date of Service: 10/18/24 Chief Complaint: requesting alcohol detox HPI Narrative KADE GONZALEZ, is a 28-year-old male history of alcohol abuse, polysubstance abuse, tobacco use, jaw fracture presented [facility] ED 10/18/2024 for alcohol detox. Notably he [...] 81.9 H, Lymph % (Auto) 11.1 L, Mcpherson % (Auto) 5.0, Eos % (Auto) 0.5, [...] 76 Minutes Charges/Coding Visit Charges Inpatient E&M: 62770 Init Hosp L3 10/18/241955 <Electronically signed by Ingrid Reece MD> Cosigner Signature (if applicable): CC: Dr. Ingrid Reece MD; No Primary Care Physician~ Signed [facility] Work Phone: 1(637) 642-296909-07-2025 Discharge summary [facility] Medical Records Department [address] [place] [address] Emergency Department Summary 10/18/24 MR#: [id number] Acct: [id number] Name: KADE GONZALEZ Rep #:[id number] : 1995 28 From: Bairon Clarke PCP: Care Physician,No Primary Status :ADM IN Location: [address] History of Present Illness Chief Complaint: [...] 100 100 Oxygen Delivery Method Room Air [facility] MDM MDM Narrative Medical decision making narrative: [...] abuse 3. Polysubstance abuse Dispo: Admit to [facility] via RAMP program This note was generated with [employer] dictation software. It may contain incorrectwords, spelling, [...] 81.9 H Lymph % (Auto) 11.1 L Mcpherson % (Auto) 5.0 Eos % (Auto) 0.5 [...] Clarity Clear Urine pH 5.0 Ur Specific [place] 1.025 Urine Protein 30 H Urine Glucose [...] Discharge Plan Disposition Disposition: Acute Care Hospital [facility] Discharge Date/Time: 10/18/24 18:55 What to do if you have Problems For any increased pain, shortness of breath, bleeding, nausea or vomiting, chestpain, or any unexpected problems, contact your Primary Care Provider. Call [facility] ([phone]) or report tothe closest Emergency Room. Call 911 if necessary. 10/18/242110 Cosigner Signature (if applicable): CC: No Primary Care Physician ~ Signed [facility]09-07-2025 History and physical note [facility] Medical Records Department [address] [place] [address] H&P Exam - Hospitalist 10/18/24 1840 MR#: [id number] Acct: [id number] Name: KADE GONZALEZ Rep #:[id number] : 1995 28 From: Ingrid Reece MD PCP: Care Physician,No Primary Status :ADM IN Location: [facility] [id number] [facility] - General General Date of Admission: 10/18/24 Date of Service: 10/18/24 Chief Complaint: requesting alcohol detox HPI Narrative KADE GONZALEZ, is a 28-year-old male history of alcohol abuse, polysubstance abuse, tobacco use, jaw fracture presented [facility] ED 10/18/2024 for alcohol detox. Notably he [...] 81.9 H, Lymph % (Auto) 11.1 L, Mcpherson % (Auto) 5.0, Eos % (Auto) 0.5, [...] 76 Minutes Charges/Coding Visit Charges Inpatient E&M: 47696 Init Hosp L3 10/18/241955 Cosigner Signature (if applicable): CC: Dr. Ingrid Reece MD; No Primary Care Physician~ Signed [facility]09-07-2025 Discharge summary [facility] Medical Records Department [address] [place] [address] Emergency Department Summary 10/18/24 MR#: [id number] Acct: [id number] Name: KADE GONZALEZ Rep #:[id number] : 1995 28 From: Bairon Clarke PCP: [...] Ox 97 Oxygen Delivery Method Room Air [facility] Narrative Medical decision making narrative: HISTORY OF PRESENT ILLNESS: Chief complaint: Jaw pain 28-year-old male history of open mandibular fracture, polysubstance abuse, alcohol abuse, tobacco abuse presents with jaw pain. He states REVIEW OF SYSTEMS: Pertinent positives: Jaw pain Pertinent negatives: Fevers chills vomit PHYSICAL EXAM: Nursing triage notes reviewed, Vital signs reviewed Constitutional: please see [facility] HENT: MMM, surgical scars noted over left [...] History obtained from others: none Consults: none [facility] Narrative: Patient was initially hemodynamically stable, afebrile [...] Discharge home This note was generated with [employer] dictation software. It may contain incorrectwords, spelling, [...] Primary [Primary Care Provider] - Print Language: Ethiopian What to do if you have Problems For any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 any documents or summaries to your computer and/or send the information securely to a physician. Remember that your healthcare information is confidential, so carefully consider who you will allowto register on the [employer] Patient Portal for access to your information. You can also access the [employer] Patient Portal on the [employer] pura. Simply click on Patient Portal and then log into your account. If you would like to receive a full copy of your medical records, please contact the [facility] Medical Records Department by calling [phone], Saturday through Saturday between 8 a.m. and [...] Call your local pharmacy or go to http://Goal Zero.YEVVO/1Y1On5d to find one close to you.3.Make use of household items: Use cat litter or old coffee grounds to dispose medications if other options arenot available. Mix your drugs with these household products, seal them in an airtight container andthrow it into the garbage. Call [facility]: [phone] to be sure your drugs can be [...] Signatures Patient Education Materials Alcohol Withdrawal Syndrome, Wibi-py-Wdki Seizure, New Onset, Unknown Cause (Adult) Medication Leaflets chlordiazePOXIDE My discharge plan and instructions have been reviewed and explained to me and I,KADE GONZALEZ understand my current condition and have read and understand these discharge instructions. I havereceived a written copy of the plan/instructions. If I have questions, I am aware that I should contact my doctor. Patient/Ruling Technician Signature: Date/Time: Relationship to Patient: Witness Name/Signature: Date/Time: [facility]05-09-2024 Note ORIGINAL EXAMINATION: MRI OF [...] 06/20/2023 4:13:50 PM [facility]ing [facility] Date of Service 06/20/2023 [...] anxiety, depression, alcohol dependence. Patient presented to [facility] emergency department on 06/20/2023 after possible seizure. Patient was at [facility] ED earlier in the day with [...] ANA MARIA PEREZ on 06/20/2023 02:41 PM [facility]05-09-2024 Evaluation + Plan noteExtracted from: [...] and may include grammatical and/or spelling errors. [facility] 05-09-2024 Note ORIGINAL EXAMINATION: ONE [...] Sign Date: 06/20/2023 3:12:39 AM Ordering Provider: [facility]05-09-2024 Note ORIGINAL EXAMINATION: CT OF THE CERVICAL [...] Sign Date: 06/20/2023 3:20:14 AM Ordering Provider: [facility]05-09-2024 Note ORIGINAL EXAMINATION: CT OF THE HEAD [...] Date: 06/20/2023 3:18:15 AM [facility] NoteSinus tachycardia Electronic Signature: MICHAEL PADRON DO 06/20/2023 02:28:[address] [place] [address] 05-08-2024 Discharge summary Author Carmelo Mccray [facility] June 20, 2023 12:34am Note Date/Time June 19, 2023 9:50pm [facility] Medical Records Department [address] [place] [address] Emergency Department Summary 06/19/23 MR#: [id number] Acct: [id number] Name: KADE GONZALEZ Rep #:[id number] : 1995 27 From: Carmelo Clarke PCP: [...] his symptoms betterand nothing makes them worse. [facility] Medical History Alcohol abuse Alcohol dependence Anxiety [...] % (Auto) 60.8 Lymph % (Auto) 28.9 Mcpherson % (Auto) 8.4 Eos % (Auto) 0.6 [...] sinus rhythm with a rate of 75. DE interval, QRS interval, and QTc intervals were all normal. Hancock was normal. There are no acute ST [...] your Primary Care Provider. Call [facility] ([phone]) or report to the closest Emergency Room. Call 911 if necessary. 06/20/2333 <Electronically signed by Carmelo Mccray DO> Cosigner Signature (if applicable): CC: No Primary Care Physician ~ Signed [facility] Work Phone: 1(511) 889-407603-20-2024 Progress note Author Carmelo Albert [facility] May 01, 2023 9:43am Note Date/Time May 01, 2023 7:[address] [facility] Medical Records Department [address] [place] [address] Progress Note - Hospitalist 05/01/23 0658 MR#: [id number] Acct: [id number] Name: KADE GONZALEZ Rep #:[id number] : 1995 27 From: Carmelo Albert DO [...] (Auto) 49.6, Lymph % (Auto) 41.9 H, Mcpherson % (Auto) 6.5, Eos % (Auto) 0.3, [...] type admission. Charges/Coding Visit Charges Inpatient E&M: 99103 Subs Hosp L2 05/01/23 0943 <Electronically signed by Carmelo Albert DO> Cosigner Signature (if applicable): CC: ~ Signed [facility] Work Phone: 1(111) 882-322503-20-2024 Discharge summary Author Marcio Cardona [facility] May 01, 2023 6:26am Note Date/Time May 01, 2023 5:[address] [facility] Medical Records Department [address] [place] [address] Emergency Department Summary 05/01/23 MR#: [id number] Acct: [id number] Name: KADE GONZALEZ Rep #:[id number] : 1995 27 From: Marcio Cardona MD [...] does not intend to do that again. [facility] Medical History (Updated 05/01/23 @ 05:48 by [...] your Primary Care Provider. Call [facility] ([phone]) or report to the closest Emergency Room. Call 911 if necessary. 05/01/23 06 <Electronically signed by Marcio Cardona MD> Cosigner Signature (if applicable): CC: No Primary Care Physician ~ Signed [facility] Work Phone: 1(874) 804-480003-20-2024 History and physical note Author Jacquie Beckwith [facility] May 01, 2023 5:50am Note Date/Time May 01, 2023 5:3 3am [facility] Medical Records Department [address] [place] [address] H&P Exam - Hospitalist 05/01/23 0532 MR#: [id number] Acct: [id number] Name: KADE GONZALEZ Rep #:[id number] : 1995 27 From: Jacquie Beckwith MD [...] Asthma, Chronic migraines who presents to the [facility] ED on 05/01/23 withlast EtOH intake [...] Asthma, Chronic migraines who presents to the [facility] ED on 05/01/23 withlast EtOH intake [...] type admission. Charges/Coding Visit Charges Inpatient E&M: 93151 Init Hosp L2 05/01/23 0550 <Electronically signed by Jacquie Beckwith MD> Cosigner Signature (if applicable): CC: Dr. Jacquie Beckwith MD; No Primary Care Physician~ Signed [facility] Work Phone: 1(874) 631-654102-10-2024 History and physical note Author Stan Thomas [facility] March 23, 2023 12:48am Note Date/Time March 23, 2023 12:18am [facility] Medical Records Department [address] [place] [address] H&P Exam - Hospitalist 03/23/23 0017 MR#: [id number] Acct: [id number] Name: KADE GONZALEZ Rep #:[id number] : 1995 27 From: Stan Bullock PCP: Care Physician,No Primary Status :ADM IN Location: [facility] KF444-1 HPI - General General Date of Admission: [...] % (Auto) 58.3, Lymph % (Auto) 34.2, Mcpherson% (Auto) 6.3, Eos % (Auto) 0.1, Baso [...] [facility]. [facility] Patient on phenobarbital based order set along with other adjunctive medications gabapentin, Bentyl, Vistaril, clonidine, Klonopin as needed for alcohol withdrawal symptom control. Patient is on thiamine and folate acid. Twelve-lead EKG shows sinus tachycardiaat 108 bpm. Liver chemistry normal limit. GGT pending. Serum alcohol was highat 212. CIWA monitor. district wildlife manager consulted.. 2. Chronic nicotine use/cigarette smoking: [...] % (Auto) 58.3, Lymph % (Auto) 34.2, Mcpherson% (Auto) 6.3, Eos % (Auto) 0.1, Baso [...] Alcohol 212.0 Charges/Coding Visit Charges Inpatient E&M: 60424 Init Hosp L3 03/23/238 <Electronically signed by Stan Thomas MD> Cosigner Signature (if applicable): CC: Dr. Stan Thomas MD; No Primary Care Physician~ Signed [facility] Work Phone: 1(143) 823-227802-10-2024 Discharge summary Author Daquan Reid [facility] March 23, 2023 12:42am Note Date/Time March 22, 2023 1 0:17pm [facility] Medical Records Department [address] [place] [address] Emergency Department Summary 03/22/23 MR#: [id number] Acct: [id number] Name: KADE GONZALEZ Rep #:[id number] : 1995 27 From: Daquan Reid MD PCP: Care Physician,No Primary Status :ADM IN Location: [place] [address] Daquan Reid MD on [...] detox last year, then went through [facility]. [facility] Medical History Alcohol abuse Anxiety Asthma Depression [...] discussed with Dr. Thomas for admission to [facility] for detox from alcohol. Patient is in [...] % (Auto) 58.3 Lymph % (Auto) 34.2 Mcpherson % (Auto) 6.3 Eos % (Auto) 0.1 [...] alcohol intoxication Disposition Disposition: Acute Care Hospital [facility] What to do if you have Problems For any increased pain, shortness of breath, bleeding, nausea or vomiting, chestpain, or any unexpected problems, contact your Primary Care Provider. Call [facility] ([phone]) or report to the closest Emergency Room. Call 911 if necessary. 03/23/23 0018 <Electronically signed by Daquan Reid MD> Cosigner Signature (if applicable): CC: No Primary Care Physician ~ Signed [facility] Work Phone: 1(593) 788-865402-10-2024 Discharge summary Author Daquan Reid [facility] March 23, 2023 12:42am Note Date/Time March 22, 2023 1 0:17pm [facility] Medical Records Department [address] [place] [address] Emergency Department Summary 03/22/23 MR#: [id number] Acct: [id number] Name: KADE GNOZALEZ Rep #:[id number] : 1995 27 From: Daquan Reid MD PCP: Care Physician,No Primary Status :ADM IN Location: [place] [address] Daquan Reid MD on [...] detox last year, then went [facility]. [facility] Medical History Alcohol abuse Anxiety Asthma Depression [...] discussed with Dr. Thomas for admission to [facility] for detox from alcohol. Patient is in [...] % (Auto) 58.3 Lymph % (Auto) 34.2 Mcpherson % (Auto) 6.3 Eos % (Auto) 0.1 [...] alcohol intoxication Disposition Disposition: Acute Care Hospital [facility] What to do if you have Problems For any increased pain, shortness of breath, bleeding, nausea or vomiting, chestpain, or any unexpected problems, contact your Primary Care Provider. Call [facility] ([phone]) or report to the closest Emergency Room. Call 911 if necessary. 03/23/2317 <Electronically signed by Daquan Reid MD> Cosigner Signature (if applicable): CC: No Primary Care Physician ~ Signed [facility] Work Phone: [phone]) 171-922206-27-[address] Albert [facility] August 07, 2022 9:19am Note Date/Time August 07, 2022 9:18 am [facility] Medical Records Department [address] [facility] [place] [address] Instructions for Home/Discharge Instructions 08/07/22917 MR#: [id number] Acct: [id number] Name: KADE GONZALEZ Rep #:[id number] : 1995 From: Carmelo Albert DO PCP: [...] DO; No Primary Care Physician ~ Signed [facility] Work Phone: [phone]) 247-430106-27-[address] Albert [facility] August 07, 2022 9:19am Note Date/Time August 07, 2022 9:19 am [facility] Medical Records Department [address] [place] [address] Discharge Summary 08/07/22918 MR#: [id number] Acct: [id number] Name: KADE GONZALEZ Rep #:[id number] : 1995 From: Carmelo Albert DO PCP: Care Physician,No Primary Status :ADM IN Location: [place] [address] Providers Date of Admission: 08/05/22 Primary Care [...] follow up with [facility] for inpatient treatment on 08/08 Given reported [...] Self Care Charges/Coding Visit Charges Inpatient E&M: 26925 Disch Hosp 08/07/22918 <Electronically signed by Carmelo Albert DO> Cosigner Signature (if applicable): CC: Dr. Carmelo Albert DO; No Primary Care Physician~ Signed [facility] Work Phone: [phone]) 557-881106-27-[address] Albert [facility] August 07, 2022 9:18am Note Date/Time August 07, 2022 8:02 am [facility] Medical Records Department [address] [place] [address] Progress Note - Hospitalist 08/07/22 0801 MR#: [id number] Acct: [id number] Name: KADE GONZALEZ Rep #:[id number] : 1995 From: Carmelo Albert DO PCP: Care Physician,No Primary Status :ADM IN Location: [place] [id number] Reason for Visit Reason for Visit: Diagnoses [...] follow up with [facility] for inpatient treatment on 08/08 Given reported [...] Cosigner Signature (if applicable): CC: ~ Signed [facility] Work Phone: [phone]) 721-949506-26-[address] Albert [facility] August 06, 2022 12:45pm Note Date/Time August 06, 2022 8:25 am [facility] Medical Records Department [address] [place] [address] Progress Note - Hospitalist 08/06/22822 MR#: [id number] Acct: [id number] Name: KADE GONZALEZ Rep #:[id number] : 1995 From: Carmelo Albert DO PCP: Care Physician,No Primary Status :ADM IN Location: [place] [address] Reason for Visit Reason for Visit: Diagnoses [...] % (Auto) 56.8, Lymph % (Auto) 33.2, Mcpherson% (Auto) 8.3, Eos % (Auto) 0.3, Baso [...] follow up with [facility] for inpatient treatment on 08/08 PLAN: Plan Chronic complicating conditions: * Polysubstance abuse-Patient admits to utilizing cocaine and methamphetamines as well-Recommend cessation-180 consultation * Tobacco abuse-Recommend cessation-Nicotine patch DVT prophylaxis -Low risk -Recommend early and frequent ambulation CODE STATUS -Full code Charges/Coding Visit Charges Inpatient E&M: 47911 Subs Hosp L1 08/06/22 1245 <Electronically signed by Carmelo Albert DO> Cosigner Signature (if applicable): CC: ~ Signed [facility] Work Phone: 1(442) 390-987506-25-[address] Ridley [facility] August 05, 2022 7:14pm Note Date/Time August 05, 2022 3:51 pm [facility] Medical Records Department [address] [place] [address] Emergency Department Summary 08/05/22 MR#: [id number] Acct: [id number] Name: KADE GONZALEZ Rep #:[id number] : 1995 26 From: Cadence CAMPA PCP: Care Physician,No Primary Status :ADM [facility] <KATHERYN Mcdowell - Last Filed: 08/05/22 [...] <KATHERYN Mcdowell - Last Filed: 08/05/22 17:08> [facility] MDM Narrative Medical decision making [...] % (Auto) 56.8 Lymph % (Auto) 33.2 Mcpherson % (Auto) 8.3 Eos % (Auto) 0.3 [...] (Auto) Neut % (Auto) Lymph % (Auto) Mcpherson % (Auto) Eos % (Auto) Baso % [...] Ridley MD - Last Filed: 08/05/22 16:54> [facility] Lab Data Labs: Laboratory Results - last 24 hr 08/05/22 08/05/22 08/05/22 15:56 15:56 15:56 WBC 7.1 RBC 4.56 L Hgb 14.6 Hct 41.3 MCV 90.6 MCH 32.0 MCHC 35.4 RDW Std Deviation 38.1 RDW Coeff of Jessica 11.6 Plt Count 249 MPV 9.1 Immature Gran % (Auto) 0.400 Neut % (Auto) 56.8 Lymph % (Auto) 33.2 Mcpherson % (Auto) 8.3 Eos % (Auto) 0.3 [...] (Auto) Neut % (Auto) Lymph % (Auto) Mcpherson % (Auto) Eos % (Auto) Baso % [...] problems, contact your Primary Care Provider. Call [facility] ([phone]) or report to the closest Emergency Room. Call 911 if necessary. 08/05/221707 <Electronically signed by Cadence CAMPA> Cosigner Signature (if applicable): 08/05/221913 <Electronically signed by Fior Ridley MD> CC: No Primary Care Physician ~ Signed [facility] Work Phone: 1(365) 505-660906-25-2023 History and physical note Author Dr. Hirsch [facility] August 05, 2022 5:16pm Note Date/Time August 05, 2022 5:[address] [facility] Medical Records Department [address] [place] [address] H&P Exam - Hospitalist 08/05/22 170 MR#: [id number] Acct: [id number] Name: KADE GONZALEZ Rep #:[id number] : 1995 From: Ashley Hirsch DO PCP: Care Physician,No Primary Status :ADM IN Location: [facility] PH208-4 HPI - General General Date of Admission: 08/05/22 Date of Service: 08/05/22 Chief Complaint: Desire for detoxification from alcohol HPI Narrative KAED GONZALEZ, is a 26 M who presented to the emergency department at [facility] on 08/05/2022 requesting detox from alcohol. [...] % (Auto) 56.8, Lymph % (Auto) 33.2, Mcpherson% (Auto) 8.3, Eos % (Auto) 0.3, Baso [...] -Full code Charges/Coding Visit Charges Inpatient E&M: 12951 Init Hosp L2 08/05/22 1716 <Electronically signed by Ashley Hirsch DO> Cosigner Signature (if applicable): CC: Dr. Ashley Hirsch DO; No Primary Care Physician~ Signed [facility] Work Phone: Discharge summary Author Marcio Cardona [facility] May 01, 2023 6:26am Note Date/Time May 01, 2023 5:[address] [facility] Medical Records Department [address] [place] [address] Emergency Department Summary 05/01/23 MR#: [id number] Acct: [id number] Name: KADE GONZALEZ Rep #:[id number] : 1995 27 From: Marcio Cardona MD [...] does not intend to do that again. [facility] Medical History (Updated 05/01/23 @ 05:48 by [...] your Primary Care Provider. Call [facility] ([phone]) or report to the closest Emergency Room. Call 911 if necessary. 05/01/23625 <Electronically signed by Marcio Cardona MD> Cosigner Signature (if applicable): CC: No Primary Care Physician ~ Signed [facility] Work Phone: Discharge summary Author Colin Colon [facility] Note Date/Time October 02, 2024 7: 26am [facility] Medical Records Department [address] [place] [address] Emergency Department Summary 10/02/24 MR#: [id number] Acct: [id number] Name: KADE GONZALEZ Rep #:[id number] : 1995 28 From: Colin Colon DO [...] states he would prefer to go to [place] versus [place] or [place]. Therefore the case was discussed [facility]Dr. [facility]arekh at [facility]. He agrees to accept the [...] 76.7 H Lymph % (Auto) 14.6 L Mcpherson % (Auto) 7.1 Eos % (Auto) 0.5 [...] Location: [facility] Management Discussion w/another healthcare provider: Field Services Director Discharge Plan Triage Chief Complaint: Head Injury ED Provider: Colin Cooln Dx/Rx/DC Orders Clinical Impression: Mandible open fracture, History of alcohol abuse, Tobacco use, Alcohol abuse Prescriptions: No Action NK Primary Care Provider: Care Physician,No Primary Referrals: Care Physician,No Primary [Primary Care Provider] - Print Language: Ethiopian Disposition Disposition: Acute Care Hospital Discharge Location: [facility] What to do if you have Problems For any increased pain, shortness of breath, bleeding, nausea or vomiting, chestpain, or any unexpected problems, contact your Primary Care Provider. Call [facility] ([phone]) or report to the closest Emergency Room. Call 911 if necessary. 10/02/24725 <Electronically signed by Colin Colon DO> Cosigner Signature (if applicable): CC: No Primary Care Physician ~ Signed [facility] Work Phone: Evaluation note* Diagnosis Onset Date Resolution Status Alcohol abuse acute Desire for detoxification ac [facility] Work Phone: Evaluation note* Diagnosis Onset Date Resolution Status Acute alcohol intoxication a cute Acute hyperactive alcohol withdrawal delirium acute Desire for detoxification [facility] Work Phone: Evaluation note* Diagnosis Onset Date Resolution Status Acute hyperactive alcohol withdrawal delirium resolved Alcohol dependence acute Alcohol withdrawal acute [facility] Work Phone: Evaluation note* Diagnosis Onset Date Resolution Status Acute hyperactive alcohol withdrawal delirium resolved Alcohol withdrawal acute [facility] Work Phone: Evaluation note* Diagnosis Influenza A- Primary Influenza with other respiratory manifestations URI with cough and congestion Generalized body aches [facility] Diagnosis Chest pain, unspecified type- Primary Methamphetamine abuse (HCC) Nondependent amphetamine or related acting sympathomimetic abuse, unspecified Alcohol abuse Nondependent alcohol abuse, unspecified drinking behavior Chest pain Unspecified chest pain Methamphetamine abuse (HCC) Nondependent amphetamine or related acting sympathomimetic abuse, unspecified Alcohol abuse Nondependent alcohol abuse, unspecified drinking behavior documented in this encounter [facility]* Diagnosis Mandible fracture (HCC)- Primary Closed fracture of unspecified site of mandible Closed fracture of mandible, unspecified laterality, unspecified mandibular site, initial encounter ([facility]) Alcohol use disorder, severe, dependence (HCC) Alcohol withdrawal syndrome without complication (HCC) Methamphetamine use (HCC) Nondependent amphetamine or related acting sympathomimetic abuse, unspecified Cocaine use Cannabis use, uncomplicated Cigarette nicotine dependence without complication Acute pain History of benzodiazepine use [facility] Diagnosis Mandible fracture (HCC)- Primary Closed fracture of unspecified site of mandible Closed fracture of mandible, unspecified laterality, unspecified mandibular site, initial encounter ([facility]) Trauma- Primary Injury, other and unspecified, unspecified site Closed fracture of mandible with routine healing, unspecified laterality, unspecified mandibular site, subsequent encounter History of benzodiazepine use Cigarette nicotine dependence without complication Cannabis use, uncomplicated Alcohol withdrawal syndrome without complication (HCC) Alcohol use disorder, severe, dependence (HCC) Acute pain Methamphetamine use (HCC) Nondependent amphetamine or related acting sympathomimetic abuse, unspecified [facility] Diagnosis Mandible fracture (HCC)- Primary Closed fracture of unspecified site of mandible Closed fracture of mandible, unspecified laterality, unspecified mandibular site, initial encounter ([facility]) Closed fracture of mandible with routine healing, [...] unspecified laterality, unspecified mandibular site, initial encounter ([facility]) Closed fracture of mandible with routine healing, [...] [facility]. Hirsch [facility] August 05, 2022 5:16pm Note Date/Time August 05, 2022 5:05 pm [facility] Medical Records Department [address] [place] [address] H&P Exam - Hospitalist 08/05/22 1701 MR#: [id number] Acct: [id number] Name: KADE GONZALEZ Rep #:[id number] : 1995 26 From: Ashley Hirsch DO PCP: Care Physician,No Primary Status :ADM IN Location: [facility] [id number] HPI - General General Date of Admission: 08/05/22 Date of Service: 08/05/22 Chief Complaint: Desire for detoxification from alcohol HPI Narrative KADE GONZALEZ, is a 26 M who presented to the emergency department at [facility] on 08/05/2022 requesting detox from alcohol. [...] % (Auto) 56.8, Lymph % (Auto) 33.2, Mcpherson% (Auto) 8.3, Eos % (Auto) 0.3, Baso [...] -Full code Charges/Coding Visit Charges Inpatient E&M: 75203 Init Hosp L2 08/05/22 1716 <Electronically signed by Ashley Hirsch DO> Cosigner Signature (if applicable): CC: Dr. Ashley Hirsch DO; No Primary Care Physician~ Signed [facility] Work Phone: History and physical note Author Stan Thomas [facility] March 23, 2023 12:48am Note Date/Time March 23, 2023 12:18am [facility] Medical Records Department [address] [facility] [place] [address] H&P Exam - Hospitalist 03/23/23 0017 MR#: [id number] Acct: [id number] Name: KADE GONZALEZ Rep #:[id number] : 1995 27 From: Stan Bullock PCP: Care Physician,No Primary Status :ADM IN Location: [place] [address] HPI - General General Date of Admission: [...] % (Auto) 58.3, Lymph % (Auto) 34.2, Mcpherson% (Auto) 6.3, Eos % (Auto) 0.1, Baso [...] Serum alcohol was highat 212. CIWA monitor. district wildlife manager consulted.. 2. Chronic nicotine use/cigarette smoking: [...] % (Auto) 58.3, Lymph % (Auto) 34.2, Mcpherson% (Auto) 6.3, Eos % (Auto) 0.1, Baso [...] Alcohol 212.0 Charges/Coding Visit Charges Inpatient E&M: 91688 Init Hosp L3 03/23/23 0048 <Electronically signed by Stan Thomas MD> Cosigner Signature (if applicable): CC: Dr. Stan Thomas MD; No Primary Care Physician~ Signed [facility] Work Phone: History and physical note Author Jacquie Beckwith [facility] May 01, 2023 5:50am Note Date/Time May 01, 2023 5:[address] [facility] Medical Records Department [address] [place] [address] H&P Exam - Hospitalist 05/01/23 0532 MR#: [id number] Acct: [id number] Name: KADE GONZALEZ Rep #:[id number] : 1995 27 From: Jacquie Beckwith MD [...] Asthma, Chronic migraines who presents to the [facility] ED on 05/01/23 withlast EtOH intake [...] administered phenobarbital 97.2 mg p.o. x 1. [facility] (Updated 05/01/23 @ 05:48 [...] Asthma, Chronic migraines who presents to the [facility] ED on 05/01/23 withlast EtOH intake reported prior to ED arrival but less than his normal with complaint of mild tremors and tactile disturbances otherwise no severe withdrawal symptoms. #1. Acute EtOH Withdrawal: Will admit to [place], routine labs obtained in the ED upon [...] type admission. Charges/Coding Visit Charges Inpatient E&M: 28143 Init Hosp L2 05/01/23 0550 <Electronically signed by Jacquie Beckwith MD> Cosigner Signature (if applicable): CC: Dr. Jacquie Beckwith MD; No Primary Care Physician~ Signed [facility] Work Phone: Hospital course Narrative No data available for this section [facility] Hospital Discharge instructions* Attachments The following attachments cannot be sent through Care Everywhere. * Chest Pain, Adult ED (Ethiopian) * Troponin Test (Ethiopian) * Drug Abuse Treatment (Ethiopian) * Alcohol Use Disorder ED (Ethiopian) * Polysubstance Use Disorder (Ethiopian) * Substance Use Disorder ED ([place]iopian) [facility] Additional Instructions Your exam [...] infection permanent disability facial abnormality and even .[facility] Work Phone: Hospital Discharge instructionsAdditional Instructions [...] for further outpatient evaluation, pain control and management.[facility] Work Phone: Instructions* Attachments The following attachments cannot be sent through Care Everywhere. * Flu Discharge Instructions, Adult ([place]) [facility])No reason for referral [...] Visit Admit Date [facility] October 01, 2024 12:22am Chief Complaint [...] No August 05, 2022 4:09pm Power of Office Clerk No August 05 4:09pm Advance Directive Response Recorded Date/ Time Living Will No August 05, 2022 6:27pm Power of Office Clerk No August 05 6:27pm Advance Directive Response Recorded Date/ Time Living Will No March 22 10:56pm Power of Office Clerk No March 22, 2023 10:56pm Advance Directive Response Recorded Date/ Time Living Will No March 23 024 1:01am Power of Office Clerk No March 23, 2023 1:01am Advance Directive Response Recorded Date/ Time Living Will No May 01, 2023 5:10am Power of Office Clerk No April 30 5:10am Advance Directive Response Recorded Date/ Time Living Will No May 01, 2023 6:45am Power of Office Clerk No April 30 6:45am Advance Directive Response Recorded Date/ Time Living Will No June 19, 2023 11 :38pm Power of Office Clerk No June 19, 2023 11:38pm Advance Directive Response Recorded Date/ Time Do you have a Healthcare Power of Office Clerk? No October 01, 2024 1:52am Advance Directive Response Recorded Date/ Time Do you have a Healthcare Power of Office Clerk? No October 01, 2024 1:52am Do you have a Healthcare Power of Office Clerk? No October 02, 2024 4:09am Advance Directive Response Recorded Date/ Time Do you have a Healthcare Power of Office Clerk? No October 01, 2024 1:52am Do you have a Healthcare Power of Office Clerk? No October 02, 2024 4:09am Do you have a Healthcare Power of Office Clerk? No October 02, 2024 4:55am Date Activated [...] Do you have a Healthcare Power of Office Clerk? No October 01, 2024 1:52am Do you have a Healthcare Power of Office Clerk? No October 18, 2024 3:22pm Do you have a Healthcare Power of Office Clerk? No October 02, 2024 4:09am Do you have a Healthcare Power of Office Clerk? No October 02, 2024 4:55am Advance Directive Response Recorded Date/ Time Do you have a Healthcare Power of Office Clerk? No October 01, 2024 1:52am Do you have a Healthcare Power of Office Clerk? No October 18, 2024 3:22pm Do you have a Healthcare Power of Office Clerk? No October 02, 2024 4:09am Do you have a Healthcare Power of Office Clerk? No October 02, 2024 4:55am Do you have a Healthcare Power of Office Clerk? No October 18, 2024 4:33pm Advance Directive Response Recorded Date/ Time Do you have a Healthcare Power of Office Clerk? No October 01, 2024 1:52am Do you have a Healthcare Power of Office Clerk? No October 18, 2024 3:22pm Do you have a Healthcare Power of Office Clerk? No October 02, 2024 4:09am Do you have a Healthcare Power of Office Clerk? No October 02, 2024 4:55am Do you have a Healthcare Power of Office Clerk? No October 18, 2024 7:43pm Family History [...] Provider Active Star t: October 02, 2024 Actuarial Assistant Relationship Specialty Start Date End Date No, Physician [facility] PCP - General 10/02/24 Actuarial Assistant Relationship Specialty Start Date End Date No, Physician [facility] PCP - General 10/02/24 Actuarial Assistant Relationship Specialty Start Date End Date No, Physician [facility] PCP - General 10/02/24 Actuarial Assistant Relationship Specialty Start Date End Date No, Physician [facility] PCP - General 10/02/24 Team Status: [...] and content) DATE CREATED AUTHOR 06/28/2023 [facility] ([place]) DATE CREATED AUTHOR AUTHOR'S ORGANIZ ATION 08/02/2023 [facility] DATE CREATED AUTHOR AUTHOR'S ORGANIZ ATION 06/26/2024 [facility] DATE CREATED AUTHOR AUTHOR'S ORGANIZ ATION 10/01/2024 [facility] DATE CREATED AUTHOR AUTHOR'S ORGANIZ ATION 10/19/2024 [facility] DATE CREATED AUTHOR AUTHOR'S ORGANIZ ATION 10/21/2024 [facility] Reason for Visit (unrecogniz ed section and content) Reason Comments Jaw Pain Specialty Diagnoses / Procedures Referred By Contac t Referred To Contact Diagnoses Fracture of mandible of other specified site, initial encounter for open fracture (HCC) Referral ID Status Reason Start Date Expiration Date Visits Re quested Visits Authorized [id number] 1 1 Specialty Diagnoses / Procedures Referred By Bahman t Referred To Contact Diagnoses Trauma Referral ID Status Reason Start Date Expiration Date Visits Re quested Visits Authorized [id number] 1 1 Reason Comments URI Cough /Body [...] Expiration Date Visits Re quested Visits Authorized [id number] 1 1 Specialty Diagnoses / Procedures Referred By Bahman t Referred To Contact Diagnoses Trauma Closed fracture of mandible with routine healing, unspecified laterality, unspecified mandibular site, subsequent encounter Referral ID Status Reason Start Date Expiration Date Visits Re quested Visits Authorized [id number] 1 1 Scheduled Active and Recently Administ [...] (MAR Unhold - Provider: Transfer Provider, Automatic) uiroicgq-obj-tblbozw gluconate liquid 15 mL 15 mL, Oral, [...] 225.9 mg = 3 mg/kg 75.3 kg [place] weight), Intramuscular, Every 3 hours, First dose [...] 301.2 mg = 4 mg/kg 75.3 kg [place] weight), Intramuscular, Once, On Sat10/02/24 at 1430, [...] (Automatically Held - Provider: Transfer Provider, Automatic)1120 ([facility] Unhold - Provider: Transfer Provider, Automatic) PHENobarbitaL tablet 32.4 mg(Linked Group 2) 32.4 mg, Oral, Every 24 hours, First dose on 10/05/24 at 2100, For 1 dose 0653 ([facility] Hold - Provider: Transfer Provider, Automatic - Reason: Patient not available)1120 ([facility] Unhold - Provider: Transfer Provider, Automatic) [...] (Automatically Held - Provider: Transfer Provider, Automatic)1120 ([facility] Unhold - Provider: Transfer Provider, Automatic) senna-docusate [...] (Automatically Held - Provider: Transfer Provider, Automatic)1120 ([facility] Unhold - Provider: Transfer Provider, Automatic) [...] Provider, Automatic - Reason: Patient not available)1120 ([facility] Unhold - Provider: Transfer Provider, Automatic) Continuous [...] Provider, Automatic - Reason: Patient not available)1120 ([facility] Unhold - Provider: Transfer Provider, Automatic) naloxone (NARCAN) injection 0.4 mg(Linked Group 4) 0.4 mg, Intravenous, As needed, opioid reversal, patient is pulseless, breathless, and unresponsive, Starting on Sat10/02/24 at 1041, Call a code first, then administer naloxone dose undiluted IV Push over 30 seconds. 0653 ([facility] Hold - Provider: Transfer Provider, Automatic - Reason: Patient not available)1120 ([facility] Unhold - Provider: Transfer Provider, Automatic) [...] (Given - Provider: Elo Campbell RN) 0653 ([facility] Hold - Provider: Transfer Provider, Automatic - Reason: Patient not available)1120 ([facility] Unhold - Provider: Transfer Provider, Automatic) ondansetron (ZOFRAN) injection 4 mg(Linked Group 5) 4 mg, Intravenous, Every 6 hours PRN, nausea, vomiting, Starting on Sat10/02/24 at 1239, [] Oral or IV - use oral route if tolerated. 0653 ([facility] Hold - Provider: Transfer Provider, Automatic - Reason: Patient not available)1120 ([facility] Unhold - Provider: Transfer Provider, Automatic) [...] Provider: Fior Kelly RN)0519 (Given - Provider: iFor Kelly RN)1028 (Given - Provider: Priya Domínguez RN)1442 (Given - Provider: Priya Domínguez, RN)2047 (Given - Provider: Fior Kelly, KATERYNA) 0233 (Given - Provider: Fior Kelly, KATERYNA)0638 (Given - Provider: Fior Kelly RN)0653 ([facility] Hold - Provider: Transfer Provider, Automatic - Reason: Patient not available)1120 ([facility] Unhold - Provider: Transfer Provider, Automatic) PHENobarbital injection 65 mg 65 mg, Intramuscular, Every 6 hours PRN, Two of the following: SBP greater than 160 or DBP greater than 100, Significant agitation (RASS greater than +2), HR greater than 110, Diaphoresis, tremors, Hallucinations, Starting on Sat10/02/24 at 1343, For 102 hours, VESICANT 0653 ([facility] Hold - Provider: Transfer Provider, Automatic - Reason: Patient not available)1120 ([facility] Unhold - Provider: Transfer Provider, Automatic) sodium chloride (NS) 0.9 % irrigation solution (CANCELED) As needed, Starting on Sat10/04/24 at 0811, Intra-Procedure 0811 (Given - Provider: Marilou Vasquez MD - Comment: Given to sterile field) sodium chloride (PF) (NS) 0.9 % contrast line flush 10 mL(Linked Group 6) 10 mL, Intravenous, Once in imaging, contrast, Per circus train supervisor (Radiology) for line patency check prior to contrast administration, Starting on Sat10/02/24 at 1035, For 1 dose 1415 (Canceled Entry - Provider: Elo Campbell RN) 0653 ([facility] Hold - Provider: Transfer Provider, Automatic - Reason: Patient not available)1120 ([facility] Unhold - Provider: Transfer Provider, Automatic) sodium chloride (PF) (NS) 0.9 % contrast line flush 80 mL (COMPLETED)(Linked Group 6) 80 mL, Intravenous, Once in imaging, contrast, Per circus train supervisor (Radiology), Starting on Sat10/02/24 at 1035, For [...] 301.2 mg = 4 mg/kg 75.3 kg [place] weight), Intramuscular, Once, On Sat10/02/24 at 1430, [...] 225.9 mg = 3 mg/kg 75.3 kg [place] weight), Intramuscular, Every 3 hours, First dose [...] mL, Intravenous, Once in imaging, contrast, Per circus train supervisor (Radiology) for line patency check prior to contrast administration, Starting on Sat10/02/24 at 1035, For 1 dose And sodium chloride (PF) (NS) 0.9 % contrast line flush 80 mL (COMPLETED)Jump to med 80 mL, Intravenous, Once in imaging, contrast, Per circus train supervisor (Radiology), Starting on Sat10/02/24 at 1035, For [...] 135.54 mg = 1.8 mg/kg 75.3 kg [place] weight), Intramuscular, Every 3 hours, First dose [...] 180.72 mg = 2.4 mg/kg 75.3 kg [place] weight), Intramuscular, Once, On Sat10/04/24 at 2125, [...] 180.72 mg = 2.4 mg/kg 75.3 kg [place] weight), Intramuscular, Once, On Sat10/04/24 at 2124, [...] 135.54 mg = 1.8 mg/kg 75.3 kg [place] weight), Intramuscular, Every 3 hours, First dose [...] (Not Given - Provider: Kaitlyn A Molina, VENEER MANUFACTURER - Reason: Contraindicated)1247 (Given - Provider: Kaitlyn Vargas Molina, VENEER MANUFACTURER)1523 (Given - Provider: Kaitlyn Alicia Molina, VENEER MANUFACTURER)202 (Given - Provider: Ashtyn Hawkins VENEER MANUFACTURER) 0047 (Given - Provider: Ashtyn Morejonmbi, VENEER MANUFACTURER)0518 (Given - Provider: Ashtyn Hawkins VENEER MANUFACTURER)1004 (Given - Provider: Kaitlyn Francoiso, VENEER MANUFACTURER)1309 (Given - Provider: Kaitlyn Alicia Molina, VENEER MANUFACTURER)1600 (Not Given - Provider: Kaitlyn Alicia Molina, VENEER MANUFACTURER - Reason: Contraindicated) amoxicillin-clavulanate (AUGMENTIN) 875-125 mg per tablet 1 tablet 1 tablet, Oral, Every 12 hours scheduled, First dose on Sat10/09/24 at 2100, For 7 days, Indication: Skin/Soft Tissue Infection 2113 (Given - Provider: Lor Holm LPN) 0823 (Given - Provider: Kaitlyn Francoiso VENEER MANUFACTURER)202 (Given - Provider: Ashtyn Hawkins LPN) 1005 (Given - Provider: Kaitlyn Francoiso VENEER MANUFACTURER) chlorhexidine (PERIDEX) 0.12 % solution 15 mL 15 mL, Swab, 4 times daily, First dose on Sat10/08/24 at 0900, Do Not Swallow 1037 (Given - Provider: Jesus Barahona RN)1330 (Given - Provider: Jesus Barahona RN)1700 (Not Given - Provider: Jesus Barahona RN - Reason: Other)2108 (Given - Provider: Lor Holm LPN) 0823 (Given - Provider: Kaitlyn Francoiso, VENEER MANUFACTURER)1248 (Given - Provider: Kaitlyn Francoiso, VENEER MANUFACTURER)1700 (Given - Provider: Kaitlyn Alicia Francoiso, VENEER MANUFACTURER)2026 (Given - Provider: Ashtyn Hawkins LPN) 1005 (Given - Provider: Kaitlyn Francoiso, VENEER MANUFACTURER)1309 (Given - Provider: Kaitlyn Francoiso, VENEER MANUFACTURER)1700 (Given - Provider: Kaitlyn Francoiso VENEER MANUFACTURER) enoxaparin (LOVENOX) syringe 30 mg 30 mg, [...] 225.9 mg = 3 mg/kg 75.3 kg [place] weight), Oral, Every 3 hours, First dose [...] 225.9 mg = 3 mg/kg 75.3 kg [place] weight), Oral, Every 3 hours, First dose [...] 301.2 mg = 4 mg/kg 75.3 kg [place] weight), Oral, Once, On Sat10/09/24 at 0130, [...] Saline lock 0600 (Canceled Entry - Provider: oLr Holm LPN)1400 (Due)2200 (Canceled Entry - Provider: [...] LPN)1240 (Return to Cabinet - Provider: Kaitlyn Aguuste LPN)1523 (Given - Provider: Kaitlyn Auguste LPN)2025 [...] 301.2 mg = 4 mg/kg 75.3 kg [place] weight), Oral, Once, On Sat10/09/24 at 0130, [...] 225.9 mg = 3 mg/kg 75.3 kg [place] weight), Oral, Every 3 hours, First dose [...] 225.9 mg = 3 mg/kg 75.3 kg [place] weight), Oral, Every 3 hours, First dose [...] - Reason: Transfer to a Procedural area)0924 ([facility] Hold - Provider: Transfer Provider, Automatic - Reason: Patient not available)1242 ([facility] Unhold - Provider: Transfer Provider, Automatic)1429 (Given [...] Arnie Akins RN - Reason: Patient/family refused)0924 ([facility] Hold - Provider: Transfer Provider, Automatic - Reason: Patient not available)1242 ([facility] Unhold - Provider: Transfer Provider, Automatic) folic acid (FOLVITE) tablet 1 mg 1 mg, Oral, Daily, First dose on Sat10/13/24 at 1000 1213 (Given - Provider: Arnie Akins RN - Comment: pt unavailable) 0900 (Due)0924 ([facility] Hold - Provider: Transfer Provider, Automatic - Reason: Patient not available)1242 ([facility] Unhold - Provider: Transfer Provider, Automatic) multivitamin (THERAGRAN) per tablet 1 tablet 1 tablet, Oral, Daily, First dose on Sat10/13/24 at 1000 1213 (Given - Provider: Arnie Akins RN - Comment: pt unavailable) 0900 (Due)0924 ([facility] Hold - Provider: Transfer Provider, Automatic - Reason: Patient not available)1242 ([facility] Unhold - Provider: Transfer Provider, Automatic) senna-docusate [...] 1015 0948 (New Bag - Prov ider: Malren Bryan RN)1020 (Continued by Anesthesia - Provider: [...] Arnie Akins RN) 0640 (Given - Provider: oRmelia Grove RN)0924 ([facility] Hold - Provider: Transfer [...] lozenge. DO NOT CRUSH OR CHEW. 923 ([facility] Hold - Provider: Transfer Provider, Automatic - Reason: Patient not available)124 ([facility] Unhold - Provider: Transfer Provider, Automatic) ondansetron (ZOFRAN) injection 4 mg(Linked Group 2) 4 mg, Intravenous, Every 6 hours PRN, nausea, vomiting, Starting on Sat10/12/24 at 2152, [] Oral or IV - use oral route if tolerated. 923 ([facility] Hold - Provider: Transfer Provider, Automatic - Reason: Patient not available)124 ([facility] Unhold - Provider: Transfer Provider, Automatic) ondansetron (ZOFRAN-ODT) disintegrating tablet 4 mg(Linked Group 2) 4 mg, Oral, Every 6 hours PRN, nausea, vomiting, Starting on Sat10/12/24 at 2152, [] Oral or IV - use oral route if tolerated. Formulation requires tablet remain in sealed package until immediately prior to dose being administered. 923 ([facility] Hold - Provider: Transfer Provider, Automatic - Reason: Patient not available)124 ([facility] Unhold - Provider: Transfer Provider, Automatic) [...] BE BASED ON THE PRIMARY CLINICAL RECORDS. [facility], [facility]. provides no warranty or guarantee of the accuracy or completeness of information in this document.
--- NOTE | 2024-10-22 01:44 | NURSING ---
Pt uncooperative with care. Pt will not answer my questions. This nurse struggled to get his bp. Pt would not unfold his arm. Pt was told this is a voluntary admission and needs to follow the rules. Pt continues to ignore this nurse.
[2024-10-22] MEDS: 0.9% Saline Lock 10 ML Syringe IV (02:42)
[2024-10-22] MEDS: 0.9% Normal Saline (1000mL) 1,000 ML 125 ML IV ×2 (02:42→11:15)
[2024-10-22 05:06] LABS: Hematocrit 36.9 % (40-54); Hemoglobin 12.9 g/dL (13.0-16.5); Immature Granulocytes Count 0.010 X10^3/uL (0.0-0.0); Mean Corp Hgb Conc 35.0 g/dL (32-36); Mean Corpuscular Volume 97.4 fL (80-94); Mean Platelet Vol. 9.1 fl (6.2-12.0); NRBC Flagged by Analyzer 0 % (0-5); Platelet Count 370 K/mm3 (150-450); RBC Distribution Width CV 12.0 % (11.6-14.6); RBC Distribution Width SD 43.4 fl (35.1-43.9); Red Blood Count 3.79 M/mm3 (4.6-6.2); White Blood Count 5.0 K/mm3 (4.4-11.0)
[2024-10-22 05:43] VITALS: BP 110/73; PULSE 70; RESP 16; TEMP 37.3; O2SAT 100
[2024-10-22 05:55] LABS: AST(SGOT) 22 U/L (<=37); Alanine Aminotransfer ALT/SGPT 17 U/L (<=46); Albumin, Serum 3.6 g/dL (3.5-5.0); Alkaline Phosphatase 103 U/L (40-129); Anion Gap 11 (5-15); BUN 6 mg/dL (4-19); BUN/Creat Ratio 9.4 RATIO (10-20); Calcium,Total 8.8 mg/dL (7.6-11.0); Carbon Dioxide 22.5 mmol/L (21.0-32.0); Chloride 108 mmol/L (98-108); Estimated Creatinine Clearance 190.95 ml/min (50-250); Globulin 2.7 g/dL (2.2-4.2); Glucose 96 mg/dL (70-99); Potassium 4.2 mmol/L (3.3-5.1)
[2024-10-22 08:35] VITALS: BP 109/72; PULSE 75; RESP 16; TEMP 36.6; O2SAT 98
[2024-10-22] MEDS: Thiamine Hydrochloride 100 MG Tablet PO (08:44)
--- NOTE | 2024-10-22 10:16 | ADDICTION ---
Clinician will meet with pt to complete RAMP assessments and do DC planning tomorrow 10/23. Pt is currently homeless and struggling with repeated relapse on alcohol and methamphetamines. Pt has a hx of leaving AMA. Clinician will look for tx for pt based on his request once pt has stayed past 24 hours.
[2024-10-22 12:56] VITALS: BP 132/72; PULSE 77; RESP 16; TEMP 36.7; O2SAT 98
--- NOTE | 2024-10-22 14:56 | CHAPLAIN ---
Type of Pastoral Visit _x__ Initial Visit ___ Follow-up Visit ___ On-call Visit ___ General Patient Visit ___ Spiritual Assessment ___ Family Conference ___ Bereavement ___ Rapid Response ___ Code Blue ___ Other (describe below) Pastoral Care Referral From _x__ Patient ___ Family ___ Nurse ___ Physician ___ Assayer ___ Plastics Nurse ___ Other (describe below) Sacrament/Intervention ___ Active listening ___ Anointing ___ Moravian ___ Bereavement ___ Communion ___ Fiona exploration ___ ___ Life review ___ Prayer ___ Reconciliation ___ Sacrament of Sick _x__ Supportive presence ___ Wedding ___ Other (describe below) Pastoral Comments patient is awake and able to respond to questions; pt does not engage in conversation; pt says that he is tired and not feeling well; this engineer third assistant offers words of support for his presence in the hospital and goal of getting help in recovery; pt agrees to a visit at another time
[2024-10-22] MEDS: hydrOXYzine PAM 25 MG Capsule 50 MG PO (16:40)
--- NOTE | 2024-10-22 17:26 | PCM.PN.BLA ---
Progress Note Notified by nursing that he is leaving AMA again, this will be his 3rd AMA within 2 weeks. Therefore, by policy, he will NOT be readmitted for 3 months for detox.
--- NOTE | 2024-10-22 17:35 | NURSING ---
Pt had a woman visitor go to his room. I went to pt's room to tell this woman - no visitors for [facility] pt's. her name was Sabi and was from [place] and was returning pt's belongings to him from the night she picked him up from the ER there. she says that she works with the homeless in that town. She was talking with pt's sister on the phone after I asked her what she was doing here, told her that pt's could have no visitors. She explained to his sister that pt would get throw out of the program for getting into his belongings. Sister was wanting pt to finish this program so family can take him to [place] for inpt rehab. Talked with Yoanna and she was willing to give pt another chance. this rn talked with the pt and told him that this was really his last chance and he agreed to stay ..... about 90 minutes later pt is leaving AMA. Dr Carter aware and is putting in a note that pt is not to be readmitted for 3 months as he has been here for 3 weeks and has left AMA for all visits. Fransico Rowell had also talked to pt about leaving AMA and the consequences.
== END 2024-10-22 18:16 | disposition left against medical advice (07) | DRG 770 ==
LOC: ED 23:22 → MS3 10-22 00:49
PROVIDERS: Admitting Provider Internal Medicine; Emergency Provider Surgery; Visit Provider Family Medicine
DX: F10.229 Alcohol dependence with intoxication, unspecified (principal); Z59.00 Homelessness unspecified; F19.19 Other psychoactive substance abuse with unspecified psychoactive substance-induced disorder; F17.210 Nicotine dependence, cigarettes, uncomplicated; S02.609S Fracture of mandible, unspecified, sequela; F17.290 Nicotine dependence, other tobacco product, uncomplicated; Y90.6 Blood alcohol level of 120-199 mg/100 ml; Z53.29 Procedure and treatment not carried out because of patient's decision for other reasons
CPT/HCPCS: 36415; 80053; 80307; 81001; 82077; 83735; 84100; 84443; 85025; 85610; 99252; 99285; A4216; G0463; J2405